=== PATIENT | female | born 2000 | race Caucasian/White ===

== ENCOUNTER 2024-08-08 12:57 | Observation (INO) | payer OTHER, SELFPAY ==
[2024-08-08] VITALS (30 sets, daily range): BP systolic 84–153; BP diastolic 50–88; PULSE 94–120; TEMP 36.6–37.2; O2SAT 95–100; BMI 54.1; BMI 58.5
--- NOTE | 2024-08-08 14:05 | ECG_ITS ---
[facility] Test Date: 2024-08-08 Pat Name: NICKI SHAIKH Department: Room: - Gender: Female Director Of Transportation: : 2000 Requested By: Order Number: [id number] Reading MD: EFRA KUHN Measurements Intervals [place] Rate: 112 P: 41 LA: 136 QRS: 60 QRSD: 88 T: 11 QT: 324 QTc: 391 Interpretive Statements 1120 Sinus tachycardia 4068 Nonspecific [place] abnormality 9140 abnormal rhythm ECG No previous ECG available for comparison Electronically Signed On 08-08-2024 21:47:46 EDT by EFRA KUHN
[2024-08-08 14:27] LABS: Basophils Absolute Auto 0.1 10^3/uL (0.0-0.1); Basophils Percent Auto 0.4 % (0.2-2.0); Eosinophils Absolute Auto 0.2 10^3/uL (0.0-0.7); Eosinophils Percent Auto 1.3 % (0.9-7.0); Immature Granulocytes Abs Auto 0.14 10^3/uL (0.00-0.03); Lymphocytes Absolute Auto 2.3 10^3/uL (1.2-3.8); Lymphocytes Percent Auto 16.4 % (20.5-60.0); Mean Corpuscular HGB Conc 29.8 g/dL (29.9-35.2); Mean Corpuscular Hemoglobin 24.6 pg (26.7-34.0); Mean Corpuscular Volume 82.5 fL (81.0-99.0); Mean Platelet Volume 8.9 fL (9.5-13.5); Monocytes Absolute Auto 0.8 10^3/uL (0.3-0.8); Monocytes Percent Auto 5.8 % (1.7-12.0); Neutrophils Absolute Auto 10.7 10^3/uL (1.4-6.5); Neutrophils Percent Auto 75.1 % (43.0-75.0); Platelet Count 310 10^3/uL (150-450); Red Cell Distribution Width 17.6 % (11.0-15.0); White Blood Count 14.3 10^3/uL (4.0-11.0)
[2024-08-08 14:30] LABS: Hematocrit 19.8 % (36.0-48.0); Hemoglobin 5.9 g/dL (12.0-16.0)
[2024-08-08 14:37] LABS: HCG Qualitative NEGATIVE (NEGATIVE); Internal Control Within Normal Limits
[2024-08-08 14:42] LABS: D Dimer 0.39 mg/L FEU (<=0.59)
[2024-08-08 14:48] LABS: Lactate/Lactic Acid 1.5 mmol/L (0.4-2.0)
--- NOTE | 2024-08-08 14:49 | ED.GENADUL1 ---
HPI HPI - General Adult General Chief complaint: Weakness Stated complaint: GENERAL WEAKNESS Time Seen by Provider: 08/08/24 14:29 Source: patient Mode of arrival: walk-in History of Present Illness HPI narrative: Patient is a 24-year-old female with a history of PCOS who presents to the emergency department for increasing exertional dyspnea, intermittent episodes of syncope and generalized weakness. She states she has had heavy vaginal bleeding for the last 5 months. 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 She has been on control for the last several months, drospirenone. She does report pelvic cramping that has been constant for several months, no urinary symptoms or flank pain. Related Data Allergies Allergy/AdvReac Type Severity Reaction Status Date / Time amoxicillin (From Augmentin) Allergy Severe Anaphylaxis Verified 08/08/24 13:16 clavulanic acid (From Allergy Severe Anaphylaxis Verified 08/08/24 13:16 Augmentin) Penicillins Allergy Severe Anaphylaxis Verified 08/08/24 13:16 Opioid HPI Opioid Management Most Recent Opioid Data: No Data to Display Review of Systems ROS Constitutional Denies: fever or chills Ears, nose, mouth, and throat Denies: throat pain or nasal congestion Cardiovascular Denies: chest pain Respiratory Reports: shortness of breath; Denies: cough Gastrointestinal Denies: nausea or vomiting Genitourinary Denies: painful urination Neurological Denies: numbness in extremities or weakness in extremities Hematologic/Lymphatic Denies: easy bruising or easy bleeding [facility] Medical History (Updated 08/08/24 @ 15:46 by PARMINDER Khan) Systemic mastocytosis ?D47.02 - Systemic mastocytosis (ICD-10) Exam Narrative Exam Narrative: Gen.: Awake, alert, in no distress Head: Normocephalic, atraumatic ENT: Moist mucous membranes Respiratory: No respiratory distress, lungs clear bilaterally Cardio: Regular rate and rhythm Gastrointestinal: Abdomen is soft, nondistended and nontender to palpation Extremities: Moves extremities equally Psych: Normal mood and affect Neuro: No focal neuro deficit Skin: Warm, dry, intact Constitutional Vital Signs, click to edit/add: Last Vital Signs Temp 98.7 F 08/08/24 13:07 Pulse 120 H 08/08/24 13:07 Resp 18 08/08/24 13:07 BP 120/70 08/08/24 13:07 Pulse Ox 98 08/08/24 13:07 O2 Del Method Room Air 08/08/24 13:07 Course Vital Signs Vital signs: Vital Signs Temperature 98.7 F 08/08/24 13:07 Pulse Rate 120 H 08/08/24 13:07 Respiratory Rate 18 08/08/24 13:07 Blood Pressure 120/70 08/08/24 13:07 Pulse Oximetry 98 08/08/24 13:07 Oxygen Delivery Method Room Air 08/08/24 13:07 Temperature 98.7 F 08/08/24 13:07 Pulse Rate 120 H 08/08/24 13:07 Respiratory Rate 18 08/08/24 13:07 Blood Pressure 120/70 08/08/24 13:07 Pulse Oximetry 98 08/08/24 13:07 Oxygen Delivery Method Room Air 08/08/24 13:07 Medical Decision Making MDM Narrative Medical decision making narrative: This patient had lab work obtained from the lobby while waiting for room assignment, she was noted to have a hemoglobin of 5.9 at time of getting a room assignment and she was made aware that she will need a blood transfusion and admission to the hospital. Her D-dimer is normal. X-ray is unremarkable, I spoke with Dr. Donato who recommends Megace 20 mg twice daily for 3 days and then 20 mg daily until she is seen in the office as an outpatient. First dose of Megace was given in the ER and he also requested an ultrasound of the pelvis. This was ordered for the patient and she is admitted for blood transfusion. Stable at time of admission. SUPERVISED APC VISIT, PHYSICIAN ATTESTATION: Based on the medical record the care appears appropriate. ? Medical Records Medical records reviewed: Yes I reviewed the patient's medical records Lab Data Lab results reviewed: Yes I reviewed the patient's lab results Labs: Lab Results 08/08/24 08/08/24 Range/Units 14:20 14:40 WBC 14.3 H (4.0-11.0) 10^3/uL RBC 2.40 L (4.20-5.40) 10^6/uL Hgb 5.9 L* (12.0-16.0) g/dL Hct 19.8 L* (36.0-48.0) % MCV 82.5 (81.0-99.0) fL MCH 24.6 L (26.7-34.0) pg MCHC 29.8 L (29.9-35.2) g/dL RDW 17.6 H (11.0-15.0) % Plt Count 310 (150-450) 10^3/uL MPV 8.9 L (9.5-13.5) fL Neut % (Auto) 75.1 H (43.0-75.0) % Lymph % (Auto) 16.4 L (20.5-60.0) % [place] % (Auto) 5.8 (1.7-12.0) % Eos % (Auto) 1.3 (0.9-7.0) % Baso % (Auto) 0.4 (0.2-2.0) % Neut # (Auto) 10.7 H (1.4-6.5) 10^3/uL Lymph # (Auto) 2.3 (1.2-3.8) 10^3/uL [place] # (Auto) 0.8 (0.3-0.8) 10^3/uL Eos # (Auto) 0.2 (0.0-0.7) 10^3/uL Baso # (Auto) 0.1 (0.0-0.1) 10^3/uL Abs Immat Gran (auto) 0.14 H (0.00-0.03) 10^3/uL Imm/Tot Granulo (auto) 1.0 H (0.0-0.5) % D-Dimer 0.39 (<=0.59) mg/L FEU Sodium 141 (136-145) mmol/L Potassium 4.0 (3.5-5.1) mmol/L Chloride 106 (98-107) mmol/L Carbon Dioxide 25.7 (21.0-32.0) mmol/L Anion Gap 13.3 BUN 8.0 (7.0-18.0) mg/dL Creatinine 0.96 (0.55-1.02) mg/dL Est GFR ( Amer) >60 (>=60 mL/min/1.73m^2) Est GFR (Non-Af Amer) >60 (>=60 mL/min/1.73m^2) BUN/Creatinine Ratio 8.3 Glucose 123 H (74-106) mg/dL Lactate 1.5 (0.4-2.0) mmol/L Calcium 9.0 (8.5-10.1) mg/dL Magnesium 2.1 (1.8-2.4) mg/dL Total Bilirubin 0.3 (0.2-1.0) mg/dL AST 28 (15-37) U/L ALT 51 (14-59) U/L Alkaline Phosphatase 89 (46-116) U/L Troponin I High Sens <4.0 L (4.0-51.3) pg/mL Total Protein 6.8 (6.4-8.2) g/dL Albumin 3.2 L (3.4-5.0) g/dL Globulin 3.6 g/dL Albumin/Globulin Ratio 0.9 TSH 6.138 H (0.358-3.740) uIU/mL Serum HCG, Qual Negative (NEGATIVE) Blood Type B Positive Antibody Screen Negative Crossmatch See Detail Imaging Data Chest x-ray: Attestation: I have reviewed the pertinent imaging results. ECG Data Attestation: I personally reviewed and interpreted this ECG as follows: (Sinus tachycardia at a rate of 112, no acute ST elevation or ectopy. EKG reviewed by attending physician) Discharge Plan Discharge Chief Complaint: Weakness Patient Disposition: Admitted as Observation Time of Disposition Decision: 15:45 Print Language: Macedonian Referrals: Physician,Non-Staff, [Physician] - 1 week
[2024-08-08 14:54] LABS: Alanine Aminotransferase 51 U/L (14-59); Albumin Globulin Ratio 0.9; Albumin Level 3.2 g/dL (3.4-5.0); Alkaline Phosphatase 89 U/L (46-116); Anion Gap 13.3; Aspartate Amino Transferase 28 U/L (15-37); BUN Creatinine Ratio 8.3; Bilirubin Total 0.3 mg/dL (0.2-1.0); Carbon Dioxide 25.7 mmol/L (21.0-32.0); Chloride 106 mmol/L (98-107); Estimated GFR (African America >60 (>=60 mL/min/1.73m^2); Estimated GFR (Non-African Ame >60 (>=60 mL/min/1.73m^2); Globulin 3.6 g/dL; Glucose 123 mg/dL (74-106); Magnesium 2.1 mg/dL (1.8-2.4); Sodium 141 mmol/L (136-145); Total Protein 6.8 g/dL (6.4-8.2); Troponin I High Sensitivity <4.0 pg/mL (4.0-51.3)
[2024-08-08 14:55] LABS: Thyroid Stimulating Hormone 6.138 uIU/mL (0.358-3.740)
[2024-08-08] MEDS: ONDANSETRON PF 4 MG/2 ML VIAL IV (14:55)
[2024-08-08] MEDS: 0.9 % SODIUM CHLORIDE 1,000 ML 999 ML IV (14:56)
[2024-08-08] MEDS: KETOROLAC TROMETHAMINE 30 MG/ML VIAL IVP (14:56)
--- NOTE | 2024-08-08 15:16 | XR_ITS ---
[address] [address] Patient Name: NICKI SHAIKH MRN: [id number] date: 2000 Sex: F Assigned Patient Location: ER Current Patient Location: ED.MAIN Accession/Order Number: [id number] Exam Date: 08/08/2024 15:20 Report Date: 08/08/2024 15:56 At the request of: NANDA CALI Procedure: XR chest 1V EXAM: CHEST 1 VIEW HISTORY: Shortness of breath TECHNIQUE: Chest, one view. COMPARISON: None. FINDINGS: Lungs are clear. No focal consolidation, pleural effusion, or pneumothorax. Pulmonary vasculature is within normal limits. Cardiomediastinal silhouette is normal. XR/XR chest 1V IMPRESSION: 1. No acute cardiopulmonary disease. Electronically authenticated by: SEAN RUBIN Date: 08/08/2024 15:56
--- NOTE | 2024-08-08 15:43 | US_ITS ---
The [address] [address] Patient Name: NICKI SHAIKH MRN: [id number] date: 2000 Sex: F Assigned Patient Location: MS Current Patient Location: MS Accession/Order Number: [id number] Exam Date: 08/08/2024 18:15 Report Date: 08/08/2024 20:08 At the request of: NANDA CALI Procedure: US pelvis transvaginal US pelvis transvaginal HISTORY: Vaginal bleeding COMPARISONS: 03/05/2016 TECHNIQUE: Transvaginal imaging of the pelvis was performed. FINDINGS: UTERUS: Normal in size and echogenicity. The uterus measures 8.8 x 4.4 x 5.5 cm. MYOMETRIUM:Unremarkable. ENDOMETRIUM: The endometrium is abnormally thickened and heterogeneous in echotexture. The endometrium measures1.9 cm. RIGHT OVARY: Multiple peripheral follicles are present in the right ovary. No suspicious ovarian masses are present. There is enlargement of the right ovary. The right ovary measures 4.2 x 2.8 x 2.9 cm with a volume of 17.7 cc. LEFT OVARY: Multiple peripheral follicles are present in the left ovary. No suspicious ovarian masses are present. There is enlargement of the left ovary. The left ovary measures 3.9 x 2.5 x 3.0 cm with a volume of 15.3 cc. OTHER:There is no significant free fluid in the pelvis. US/US pelvis transvaginal IMPRESSION: 1. Enlarged ovaries with multiple follicles typical of polycystic ovarian syndrome. 2. Abnormal thickening and heterogeneity of the endometrium measuring 1.9 cm. This could be followed up with repeat pelvic sonography in 6 weeks. Electronically authenticated by: ARCADIO HEREDIA Date: 08/08/2024 20:08
[2024-08-08] MEDS: MEGESTROL ACETATE 400 MG/10 ML ORAL.SUSP 20 MG PO (16:34)
[2024-08-08 18:23] LABS: INR 0.94; Partial Thromboplastin Time 21.7 sec (22.3-36.2)
[2024-08-08 19:18] LABS: Bilirubin Urine NEGATIVE (NEGATIVE); Blood Urine LARGE (NEGATIVE); Clarity Urine CLEAR (CLEAR); Color Urine YELLOW (YELLOW); Glucose Urine UA NEGATIVE (NEGATIVE); Ketones Urine NEGATIVE (NEGATIVE); Leukocyte Esterase Urine NEGATIVE (NEGATIVE); Nitrite Urine NEGATIVE (NEGATIVE); Protein Urine 100 mg/dL (NEG/TRACE); Urobilinogen Urine 0.2 EU/dL (0.2-1.0)
--- NOTE | 2024-08-08 19:30 | P.HP_ITS ---
HPI H&P: HPI History of Present Illness Chief complaint: GENERAL WEAKNESS ANEMIA VAginal Bleeding Blood Tra Narrative: Patient presented to the emergency room with mild dyspnea and near syncopal episode. In ER found to have a hemoglobin of less than 6. She has had bleeding for the last several months, heavy vaginal bleeding. She is currently on control pills. She does have a history of PCOS she also has a history of systemic mastocytosis. Insulin resistance. When I saw patient up in the medical surgical floor, she was resting comfortably in bed eating dinner. No complaints at the time. But she is not up and moving obviously either. Opioid HPI Opioid Management Most Recent Pain and Opioid Data: Last Pain Assessment 08/08/24 17:57 Last ORT Total Score 11 08/08/24 17:06 08/08/24 Last ORT Risk Category High Risk 08/08/24 17:06 08/08/24 PFSH PFSH Medical History (Updated 08/08/24 @ 17:47 by Joanne Pham) PTSD (post-traumatic stress disorder) ?F43.10 - Post-traumatic stress disorder, unspecified (ICD-10) Bipolar 1 disorder ?F31.9 - Bipolar disorder, unspecified (ICD-10) Anxiety ?F41.9 - Anxiety disorder, unspecified (ICD-10) Depression ?F32.A - Depression, unspecified (ICD-10) PCOS (polycystic ovarian syndrome) ?E28.2 - Polycystic ovarian syndrome (ICD-10) Insulin resistance ?E88.819 - Insulin resistance, unspecified (ICD-10) 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 (ICD-10) POTS (postural orthostatic tachycardia syndrome) ?G90.A - Postural orthostatic tachycardia syndrome [POTS] (ICD-10) Systemic mastocytosis ?D47.02 - Systemic mastocytosis (ICD-10) Surgical History (Updated 08/08/24 @ 17:47 by Joanne Pham) H/O esophagogastroduodenoscopy ?Z98.890 - Other specified postprocedural states (ICD-10) Hx of tonsillectomy ?Z90.89 - Acquired absence of other organs (ICD-10) Family History (Updated 08/08/24 @ 17:49 by Joanne Pham) Grandmother Family history of CHF (congestive heart failure) Family history of COPD (chronic obstructive pulmonary disease) Family history of hypertension Aunt Family history of cancer Family history of diabetes mellitus Grandfather Family history of cancer Family history of diabetes mellitus Family history of hypertension Uncle Family history of cancer Family history of diabetes mellitus Father Family history of hypertension Social History (Updated 08/08/24 @ 17:51 by Joanne Pham) Within the past year, how often did you have a drink containing alcohol: monthly or less Within the past year, how many standard drinks containing alcohol did you have on a typical day: 1 or 2 Within the past year, how often did you have six or more drinks on one occasion: never Total score: 0 Score interpretation: A score less than 3 is consistent with normal alcohol consumption. 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QHS 08/08/24 08/08/24 [facility]08/24 08/08/24 History Ultra Test strips) [facility] 08/08/24 08/08/24 History Ultra2 Meter) buspirone 10 mg tablet 10 mg PO BID 08/08/24 08/08/24 History docusate sodium 100 mg capsule 100 mg PO .QHS PRN constipation 08/08/24 08/08/24 History drospirenone (contraceptive) 4 mg 4 mg PO DAILY 08/08/24 08/08/24 History (28) tablet (Slynd) ferrous sulfate 325 mg (65 mg 325 mg PO DAILY 08/08/24 08/08/24 History iron) tablet (FeroSul) guanfacine 1 mg tablet,extended 1 mg PO .QHS 08/08/24 08/08/24 History release 24 hr lamotrigine 100 mg tablet 100 mg PO DAILY 08/08/24 08/08/24 History lisinopril 5 mg tablet 5 mg PO DAILY 08/08/24 08/08/24 History prazosin 1 mg capsule 1 mg PO BID 08/08/24 08/08/24 History prazosin 1 mg capsule 1 mg PO Q12H 08/08/24 08/08/24 History quetiapine 50 mg tablet 50 mg PO .QHS 08/08/24 08/08/24 History quetiapine 50 mg tablet 50 mg PO .QHS 08/08/24 08/08/24 History sertraline 50 mg tablet 50 mg PO DAILY 08/08/24 08/08/24 History sertraline 50 mg tablet 50 mg PO Q24H 08/08/24 08/08/24 History sitagliptin phosphate 50 mg tablet 50 mg PO DAILY 08/08/24 08/08/24 History (Octuvia) sitagliptin phosphate 50 mg tablet 50 mg PO DAILY 08/08/24 08/08/24 History (Octuvia) Allergies Allergy/AdvReac Type Severity Reaction Status Date / Time amoxicillin (From Augmentin) Allergy Severe Anaphylaxis Verified 08/08/24 13:16 clavulanic acid (From Allergy Severe Anaphylaxis Verified 08/08/24 13:16 Augmentin) Penicillins Allergy Severe Anaphylaxis Verified 08/08/24 13:16 Exam Constitutional Vital Signs, click to edit/add: Last Vital Signs Temp 98.3 F 08/08/24 18:25 Pulse 101 H 08/08/24 18:25 Resp 20 08/08/24 18:25 BP 100/65 08/08/24 18:25 Pulse Ox 98 08/08/24 18:25 O2 Del Method Room Air 08/08/24 18:25 Documenting provider has reviewed patient's vital signs: yes Common normals: no apparent distress Respiratory Common normals: normal respiratory effort and no retractions Cardio Common normals: regular rate and regular rhythm GI Common normals: Normal to inspection, nondistended, normoactive bowel sounds present (Morbid obesity), soft to palpation and non-tender Results Labs Labs: Short CBC 08/08/24 Range/Units 14:20 WBC 14.3 H (4.0-11.0) 10^3/uL Hgb 5.9 L* (12.0-16.0) g/dL Hct 19.8 L* (36.0-48.0) % Plt Count 310 (150-450) 10^3/uL BMP 08/08/24 14:20 Sodium 141 Potassium 4.0 Chloride 106 Carbon Dioxide 25.7 BUN 8.0 Creatinine 0.96 Glucose 123 H Calcium 9.0 Liver Function 08/08/24 Range/Units 14:20 Total Bilirubin 0.3 (0.2-1.0) mg/dL AST 28 (15-37) U/L ALT 51 (14-59) U/L Alkaline Phosphatase 89 (46-116) U/L Albumin 3.2 L (3.4-5.0) g/dL Urine 08/08/24 Range/Units 13:16 Urine Color Yellow (YELLOW) Urine Clarity Clear (CLEAR) Urine pH 7.0 (5.0-9.0) Ur Specific [place] 1.020 (1.005-1.025) Urine Protein 100 A (NEG/TRACE) mg/dL Urine Glucose (UA) Negative (NEGATIVE) mg/dL Assessment and Plan Assessment and Plan (1) Vaginal bleeding: (2) Anemia requiring transfusions: (3) Bipolar 1 disorder: (4) PCOS (polycystic ovarian syndrome): (5) Mastocytosis: (6) Insulin resistance: (7) POTS (postural orthostatic tachycardia syndrome): (8) Systemic mastocytosis: Plan Admission findings: Sinus tachycardia, respiratory distress, uncontrolled hypertension, leukocytosis, severe anemia with hemoglobin less than 6 due to dysfunctional uterine bleeding over the last several months. 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 Systemic mastocytosis-would recommend patient to receive 1 dose of Decadron and Benadryl due to the getting the transfusion. Hepatic steatosis as well as insulin resistance-will check insulin sliding scale, monitor labs. Leukocytosis-check urinalysis, leukocytosis may be on the basis of demargination from the acute and semiacute blood loss Elevated TSH-she can follow this as an outpatient. Bipolar disorder-maintain current medications Uncontrolled hypertension-maintain current medications, may be on the basis of her tachycardia and near syncope. Admission status: Patient with significant and symptomatic acute NSTEMI acute blood loss anemia-transfusion overnight, medically necessary treatment will likely span 1 midnight. Observational status. If further intervention possible surgical intervention are necessary patient will be changed to inpatient status
[2024-08-08 19:46] LABS: RBC Urine >100 #/HPF (0-2)
[2024-08-08 19:47] LABS: Bacteria Urine SMALL #/HPF (NONE SEEN); Mucus Urine NONE SEEN (NONE SEEN)
[2024-08-08] MEDS: DIPHENHYDRAMINE HCL 50 MG/ML VIAL 25 MG IV (19:47)
[2024-08-08 19:48] LABS: Squamous Epithelial Cell Urine RARE #/LPF (NONE/RARE)
[2024-08-08 19:49] LABS: Cast Seen? NONE SEEN #/LPF (NONE SEEN); Crystals Seen? None Seen #/HPF (None Seen)
[2024-08-08 19:50] LABS: Urine Culture Indicated YES; WBC Urine 0-2 #/HPF (NONE SEEN)
[2024-08-08] MEDS: BUSPIRONE HCL 10 MG TABLET PO (20:04)
[2024-08-08] MEDS: ACETAMINOPHEN 500 MG TABLET 1000 MG PO (20:04)
[2024-08-08] MEDS: DEXAMETHASONE SOD PHOS 10 MG/ML VIAL IV (20:19)
[2024-08-08] MEDS: QUETIAPINE FUMARATE 25 MG TABLET 50 MG PO (21:21)
[2024-08-08] MEDS: ATORVASTATIN CALCIUM 20 MG TABLET PO (21:21)
[2024-08-08 21:23] LABS: Glucometer 115 mg/dL (74-106)
[2024-08-09] VITALS (13 sets, daily range): BP systolic 105–115; BP diastolic 63–71; PULSE 84–102; TEMP 36.6–36.9; O2SAT 94–98
[2024-08-09 02:46] LABS: Basophils Percent Auto 0.2 % (0.2-2.0); Eosinophils Percent Auto 0.2 % (0.9-7.0); Hematocrit 25.5 % (36.0-48.0); Hemoglobin 7.9 g/dL (12.0-16.0); Immature Granulocytes Abs Auto 0.29 10^3/uL (0.00-0.03); Immature Granulocytes Pct Auto 1.7 % (0.0-0.5); Lymphocytes Absolute Auto 1.3 10^3/uL (1.2-3.8); Lymphocytes Percent Auto 7.8 % (20.5-60.0); Mean Corpuscular Hemoglobin 25.4 pg (26.7-34.0); Mean Platelet Volume 8.7 fL (9.5-13.5); Monocytes Absolute Auto 0.2 10^3/uL (0.3-0.8); Monocytes Percent Auto 0.9 % (1.7-12.0); Neutrophils Absolute Auto 15.3 10^3/uL (1.4-6.5); Neutrophils Percent Auto 89.2 % (43.0-75.0); Platelet Count 313 10^3/uL (150-450); Red Blood Count 3.11 10^6/uL (4.20-5.40); Red Cell Distribution Width 16.5 % (11.0-15.0); White Blood Count 17.2 10^3/uL (4.0-11.0)
[2024-08-09] MEDS: DIPHENHYDRAMINE HCL 50 MG/ML VIAL 25 MG IV (04:43)
--- NOTE | 2024-08-09 06:17 | P.DS_ITS ---
DS: Providers Provider Date of admission: 08/08/24 16:53 Primary care physician: Aleyda Garland NP Consults: 08/08/24 18:00 Consult to Pharmacy Routine Consulting Provider: Reason for consultation: Please [place] me when Med Rec is Updated Has provider been notified: No Occupational Therapy Eval and Treat Routine Reason for consultation: Only if needed for Rehab Has provider been notified: No Physical Therapy Eval and Treat Routine Reason for consultation: Eval and Treat Has provider been notified: No DS: Diagnosis Discharge Diagnosis (1) Vaginal bleeding: (2) Anemia requiring transfusions: (3) Bipolar 1 disorder: (4) PCOS (polycystic ovarian syndrome): (5) Mastocytosis: (6) Insulin resistance: (7) POTS (postural orthostatic tachycardia syndrome): (8) Systemic mastocytosis: Plan Admission findings: Sinus tachycardia, respiratory distress, uncontrolled hypertension, leukocytosis, severe anemia with hemoglobin less than 6 due to dysfunctional uterine bleeding over the last several months. Acute blood loss anemia secondary to acute heavy vaginal bleeding-checking on ultrasound, medications recommended by GRIEVANCE MANAGER, jose sandhu and transfuse 2 units, my suspicion is she will need 1 additional unit tomorrow morning we will see how the labs play out repeat CBC around midnight. Systemic mastocytosis-would recommend patient to receive 1 dose of Decadron and Benadryl due to the getting the transfusion. Hepatic steatosis as well as insulin resistance-will check insulin sliding scale, monitor labs. Leukocytosis-check urinalysis, leukocytosis may be on the basis of demargination from the acute and semiacute blood loss Elevated TSH-she can follow this as an outpatient. Bipolar disorder-maintain current medications Uncontrolled hypertension-maintain current medications, may be on the basis of her tachycardia and near syncope. L Admission status: Patient with significant and symptomatic acute NSTEMI acute blood loss anemia-transfusion overnight, medically necessary treatment will likely span 1 midnight. Observational status. If further intervention possible surgical intervention are necessary patient will be changed to inpatient status ? DS: Summary Hospital Course Hospital Course: Patient was admitted with increasing weakness and lightheadedness. Near syncope. In ER found to have significant anemia this is likely secondary to severe vaginal bleeding she has had over the last 3 months but more severe in the last couple of days. She was admitted overnight given 2 units of PRBCs. She was still symptomatic and hemoglobin was not above 8, so she was given an additional unit of blood. She feels much improved after the third unit of blood. Her vaginal bleeding. Case was discussed with gynecology, recommenda tion at this point is to discharge patient home with Megace 20 mg twice a day for 3 days and then 1020 mg a day for at least a month. Follow-up with GRIEVANCE MANAGER in the meantime. Patient agreeable with plan. Medications to this. Discharge to home today with follow-up with GRIEVANCE MANAGER within the next week or 2 and a PCP in the same timeframe Status at Discharge Overall status at discharge: patient is not back to baseline Time Spent with Patient Time attestation: Total time spent providing and/or coordinating discharge services: Time spent: greater than 30 minutes Exam Constitutional Vital Signs, click to edit/add: Last Vital Signs Temp 98.3 F 08/09/24 05:47 Pulse 102 H 08/09/24 05:57 Resp 16 08/09/24 05:47 BP 108/63 08/09/24 05:47 Pulse Ox 98 08/09/24 05:47 O2 Del Method Room Air 08/09/24 05:47 Documenting provider has reviewed patient's vital signs: yes Common normals: no apparent distress Respiratory Common normals: normal respiratory effort and no retractions Cardio Common normals: regular rate and regular rhythm GI Common normals: Normal to inspection, nondistended, normoactive bowel sounds p resent (Morbid obesity), soft to palpation and non-tender DS: Data Data Completed and Pending Labs on day of discharge: Labs from last 24 hours 08/09/24 08/08/24 08/08/24 02:30 21:21 14:40 WBC 17.2 H RBC 3.11 L Hgb 7.9 L Hct 25.5 L MCV 82.0 MCH 25.4 L MCHC 31.0 RDW 16.5 H Plt Count 313 MPV 8.7 L Neut % (Auto) 89.2 H Lymph % (Auto) 7.8 L [place] % (Auto) 0.9 L Eos % (Auto) 0.2 L Baso % (Auto) 0.2 Neut # (Auto) 15.3 H Lymph # (Auto) 1.3 [place] # (Auto) 0.2 L Eos # (Auto) 0.0 Baso # (Auto) 0.0 Abs Immat Gran (auto) 0.29 H Imm/Tot Granulo (auto) 1.7 H PT INR APTT D-Dimer Sodium Potassium Chloride Carbon Dioxide Anion Gap BUN Creatinine Est GFR ( Amer) Est GFR (Non-Af Amer) BUN/Creatinine Ratio Glucose Lactate Calcium Magnesium Total Bilirubin AST ALT Alkaline Phosphatase Troponin I High Sens Total Protein Albumin Globulin Albumin/Globulin Ratio TSH Serum HCG, Qual Urine Color Urine Clarity Urine pH Ur Specific [place] Urine Protein Urine Glucose (UA) Urine Ketones Urine Occult Blood Urine Nitrite Urine Bilirubin Urine Urobilinogen Ur Leukocyte Esterase Urine RBC Urine WBC Ur Squamous Epith Cells Urine Crystals Urine Bacteria Urine Casts Urine Mucus Ur Culture Indicated? POC Glucose 115 H Blood Type B Positive Antibody Screen Negative Crossmatch See Detail 08/08/24 08/08/24 14:20 13:16 WBC 14.3 H RBC 2.40 L Hgb 5.9 L* Hct 19.8 L* MCV 82.5 MCH 24.6 L MCHC 29.8 L RDW 17.6 H Plt Count 310 MPV 8.9 L Neut % (Auto) 75.1 H Lymph % (Auto) 16.4 L [place] % (Auto) 5.8 Eos % (Auto) 1.3 Baso % (Auto) 0.4 Neut # (Auto) 10.7 H Lymph # (Auto) 2.3 [place] # (Auto) 0.8 Eos # (Auto) 0.2 Baso # (Auto) 0.1 Abs Immat Gran (auto) 0.14 H Imm/Tot Granulo (auto) 1.0 H PT 10.0 INR 0.94 APTT 21.7 L D-Dimer 0.39 Sodium 141 Potassium 4.0 Chloride 106 Carbon Dioxide 25.7 Anion Gap 13.3 BUN 8.0 Creatinine 0.96 Est GFR ( Amer) >60 Est GFR (Non-Af Amer) >60 BUN/Creatinine Ratio 8.3 Glucose 123 H Lactate 1.5 Calcium 9.0 Magnesium 2.1 Total Bilirubin 0.3 AST 28 ALT 51 Alkaline Phosphatase 89 Troponin I High Sens <4.0 L Total Protein 6.8 Albumin 3.2 L Globulin 3.6 Albumin/Globulin Ratio 0.9 TSH 6.138 H Serum HCG, Qual Negative Urine Color Yellow Urine Clarity Clear Urine pH 7.0 Ur Specific [place] 1.020 Urine Protein 100 A Urine Glucose (UA) Negative Urine Ketones Negative Urine Occult Blood Large A Urine Nitrite Negative Urine Bilirubin Negative Urine Urobilinogen 0.2 Ur Leukocyte Esterase Negative Urine RBC >100 A Urine WBC 0-2 A Ur Squamous Epith Cells Rare Urine Crystals None seen Urine Bacteria Small A Urine Casts None seen Urine Mucus None seen Ur Culture Indicated? Yes POC Glucose Blood Type Antibody Screen Crossmatch Discharge Plan Discharge Disposition: Home, Self-Care Condition: Good Discharge Medications: New megestrol 20 mg tablet 20 mg PO BID MDD bid for 2 days, then daily Qty: 30 11RF Rx Instructions: bid for 2 days, then daily Continued atorvastatin 20 mg tablet 20 mg PO .QHS (DME) blood-glucose meter [OneTouch Ultra2 Meter] Misc MISCELLANEOUS (DME) OneTouch Ultra Test Strip MISCELLANEOUS buspirone 10 mg tablet 10 mg PO BID docusate sodium 100 mg capsule 100 mg PO .QHS PRN (Reason: constipation) Slynd 4 mg (28) tablet 4 mg PO DAILY ferrous sulfate [FeroSul] 325 mg (65 mg iron) tablet 325 mg PO DAILY guanfacine 1 mg tablet extended release 24 hr 1 mg PO .QHS lamotrigine 100 mg tablet 100 mg PO DAILY lisinopril 5 mg tablet 5 mg PO DAILY prazosin 1 mg capsule 1 mg PO BID quetiapine 50 mg tablet 50 mg PO .QHS sertraline 50 mg tablet 50 mg PO DAILY Januvia 50 mg tablet 50 mg PO DAILY aripiprazole 5 mg tablet 5 mg PO DAILY prazosin 1 mg capsule 1 mg PO Q12H quetiapine 50 mg tablet 50 mg PO .QHS sertraline 50 mg tablet 50 mg PO Q24H Januvia 50 mg tablet 50 mg PO DAILY Print Language: Kinyarwanda Patient Instructions: Megestrol (By mouth), Anemia (DC) Forms: Portal Instructions Follow Up Appointments: @ 4:15pm with Aleyda Ford NP [phone] Discharge Date/Time: 08/09/24 10:41
[2024-08-09 06:22] LABS: Basophils Percent Auto 0.2 % (0.2-2.0); Eosinophils Percent Auto 0.1 % (0.9-7.0); Hematocrit 25.2 % (36.0-48.0); Hemoglobin 7.8 g/dL (12.0-16.0); Immature Granulocytes Abs Auto 0.21 10^3/uL (0.00-0.03); Immature Granulocytes Pct Auto 1.2 % (0.0-0.5); Lymphocytes Absolute Auto 1.2 10^3/uL (1.2-3.8); Lymphocytes Percent Auto 7.1 % (20.5-60.0); Mean Corpuscular Hemoglobin 25.5 pg (26.7-34.0); Mean Corpuscular Volume 82.4 fL (81.0-99.0); Monocytes Absolute Auto 0.3 10^3/uL (0.3-0.8); Monocytes Percent Auto 1.7 % (1.7-12.0); Neutrophils Absolute Auto 15.3 10^3/uL (1.4-6.5); Neutrophils Percent Auto 89.7 % (43.0-75.0); Platelet Count 293 10^3/uL (150-450); Red Blood Count 3.06 10^6/uL (4.20-5.40); Red Cell Distribution Width 16.4 % (11.0-15.0)
[2024-08-09 06:38] LABS: Anion Gap 16.2; Calcium 8.6 mg/dL (8.5-10.1); Carbon Dioxide 20.2 mmol/L (21.0-32.0); Chloride 106 mmol/L (98-107); Estimated GFR (African America >60 (>=60 mL/min/1.73m^2); Estimated GFR (Non-African Ame 60 (>=60 mL/min/1.73m^2); Glucose 189 mg/dL (74-106); Potassium 4.4 mmol/L (3.5-5.1); Sodium 138 mmol/L (136-145)
[2024-08-09 07:53] LABS: Glucometer 168 mg/dL (74-106)
[2024-08-09 08:10] LABS: Hematocrit 26.4 % (36.0-48.0); Hemoglobin 8.4 g/dL (12.0-16.0); Mean Corpuscular HGB Conc 31.8 g/dL (29.9-35.2); Mean Corpuscular Hemoglobin 26.1 pg (26.7-34.0); Mean Platelet Volume 8.3 fL (9.5-13.5); Platelet Count 275 10^3/uL (150-450); Red Blood Count 3.22 10^6/uL (4.20-5.40); Red Cell Distribution Width 16.4 % (11.0-15.0); White Blood Count 18.1 10^3/uL (4.0-11.0)
[2024-08-09] MEDS: FERROUS SULFATE 325 MG TABLET PO (09:23)
[2024-08-09] MEDS: SERTRALINE HCL 50 MG TABLET PO (09:23)
[2024-08-09] MEDS: LAMOTRIGINE 100 MG TABLET PO (09:23)
[2024-08-09] MEDS: BUSPIRONE HCL 10 MG TABLET PO (09:23)
[2024-08-09] MEDS: LISINOPRIL 5 MG TABLET PO (09:23)
[2024-08-09] MEDS: ARIPIPRAZOLE 5 MG TABLET PO (09:23)
[2024-08-09] MEDS: SITAGLIPTIN PHOSPHATE 50 MG TABLET PO (09:23)
[2024-08-09] MEDS: DOCUSATE SODIUM 100 MG CAPSULE PO (09:27)
--- NOTE | 2024-08-09 09:49 | CM.NOTE ---
Rounds made with Dr. Sears, discussed with pt discharge to home today. Dr. Sears will reach out to Dr. Donato for further recommendations. Pt will f/u with Dr. Donato and PCP.
[2024-08-09] MEDS: MEGESTROL ACETATE 400 MG/10 ML ORAL.SUSP 20 MG PO (10:08)
--- NOTE | 2024-08-12 12:14 | CM.DCFOLLOWU ---
1st attempt 08/12/24, no answer
--- NOTE | 2024-08-13 13:04 | CM.DCFOLLOWU ---
2nd attempt 08/13/24, no answer
== END 2024-08-09 10:41 | disposition home or self-care (01) ==
LOC: ER 16:05 → MS 17:06
PROVIDERS: Physician Assistant; Admitting Provider Family Medicine; Emergency Provider Emergency Medicine; PCP Nurse Practitioner Family; Visit Provider Family Medicine
DX: D62 Acute posthemorrhagic anemia (principal); N93.8 Other specified abnormal uterine and vaginal bleeding; E28.2 Polycystic ovarian syndrome; E88.819 Insulin resistance, unspecified; D47.02 Systemic mastocytosis; Z79.3 Long term (current) use of hormonal contraceptives; F17.290 Nicotine dependence, other tobacco product, uncomplicated; G90.A Postural orthostatic tachycardia syndrome [POTS]; R00.0 Tachycardia, unspecified; R06.03 Acute respiratory distress; I10 Essential (primary) hypertension; D72.829 Elevated white blood cell count, unspecified; K76.0 Fatty (change of) liver, not elsewhere classified; R94.6 Abnormal results of thyroid function studies; R55 Syncope and collapse; F31.9 Bipolar disorder, unspecified
CPT/HCPCS: 36415; 36430; 71045; 76830; 80048; 80053; 81001; 82948; 83605; 83735; 84443; 84484; 84703; 85025; 85027; 85378; 85610; 85730; 86850; 86900; 86901; 86923; 87086; 93005; 94761; 96361; 96374; 96375; 96376; 97165; 99285; G0378; J1100; J1200; J1885; J2405; P9016

== ENCOUNTER 2024-08-10 16:47 | Emergency (ER) | payer OTHER, SELFPAY ==
[2024-08-10 17:03] VITALS: BP 174/86; PULSE 106; TEMP 37.1; O2SAT 99; BMI 54.9
[2024-08-10 17:17] LABS: Basophils Absolute Auto 0.1 10^3/uL (0.0-0.1); Basophils Percent Auto 0.3 % (0.2-2.0); Eosinophils Absolute Auto 0.1 10^3/uL (0.0-0.7); Eosinophils Percent Auto 0.6 % (0.9-7.0); Hematocrit 30.2 % (36.0-48.0); Hemoglobin 9.3 g/dL (12.0-16.0); Immature Granulocytes Abs Auto 0.19 10^3/uL (0.00-0.03); Lymphocytes Absolute Auto 3.4 10^3/uL (1.2-3.8); Lymphocytes Percent Auto 17.9 % (20.5-60.0); Mean Corpuscular HGB Conc 30.8 g/dL (29.9-35.2); Mean Corpuscular Hemoglobin 25.7 pg (26.7-34.0); Mean Corpuscular Volume 83.4 fL (81.0-99.0); Mean Platelet Volume 8.6 fL (9.5-13.5); Monocytes Absolute Auto 0.9 10^3/uL (0.3-0.8); Monocytes Percent Auto 4.8 % (1.7-12.0); Neutrophils Absolute Auto 14.3 10^3/uL (1.4-6.5); Neutrophils Percent Auto 75.4 % (43.0-75.0); Platelet Count 346 10^3/uL (150-450); Red Blood Count 3.62 10^6/uL (4.20-5.40); Red Cell Distribution Width 17.6 % (11.0-15.0); White Blood Count 18.9 10^3/uL (4.0-11.0)
--- NOTE | 2024-08-10 17:25 | ED_ITS ---
HPI - Female Genitourinary General Chief complaint: Vaginal Bleeding Stated complaint: BLEED POST TRANSFUSION Time Seen by Provider: 08/10/24 16:51 Source: patient Mode of arrival: Wheelchair Limitations: no limitations History of Present Illness HPI Narrative: Patient is a 24-year-old female with a history of PCOS who returns to the emergency department for reevaluation of vaginal bleeding. This patient was see n in the ER 2 days ago and was found to be anemic requiring a blood transfusion secondary to a 5-month history of dysfunctional uterine bleeding. She had an ultrasound showing a thickened endometrium, she was found to have a hemoglobin of 5.9 and was admitted receiving 3 units of blood. She states today she had a return of heavy vaginal bleeding and was concerned that she may be bleeding too much again. She states she feels mildly dizzy. She was started on megestrol twice daily while in the ER and discharged home with this medication. She has an appoint with DIRECTOR OF MARKETING AND PROMOTIONS in 2 days. Related Data Home Medications ?Medication ?Instructions ?Recorded ?Confirmed aripiprazole 5 mg tablet 5 mg PO DAILY 08/08/24 08/08/24 atorvastatin 20 mg tablet 20 mg PO .QHS 08/08/24 08/08/24 blood sugar diagnostic (OneTouch 08/08/24 08/08/24 Ultra Test strips) blood-glucose meter (OneTouch 08/08/24 08/08/24 Ultra2 Meter) buspirone 10 mg tablet 10 mg PO BID 08/08/24 08/08/24 docusate sodium 100 mg capsule 100 mg PO .QHS PRN constipation 08/08/24 08/08/24 drospirenone (contraceptive) 4 mg 4 mg PO DAILY 08/08/24 08/08/24 (28) tablet (Slynd) ferrous sulfate 325 mg (65 mg 325 mg PO DAILY 08/08/24 08/08/24 iron) tablet (FeroSul) guanfacine 1 mg tablet,extended 1 mg PO .QHS 08/08/24 08/08/24 release 24 hr lamotrigine 100 mg tablet 100 mg PO DAILY 08/08/24 08/08/24 lisinopril 5 mg tablet 5 mg PO DAILY 08/08/24 08/08/24 prazosin 1 mg capsule 1 mg PO BID 08/08/24 08/08/24 prazosin 1 mg capsule 1 mg PO Q12H 08/08/24 08/08/24 quetiapine 50 mg tablet 50 mg PO .QHS 08/08/24 08/08/24 quetiapine 50 mg tablet 50 mg PO .QHS 08/08/24 08/08/24 sertraline 50 mg tablet 50 mg PO DAILY 08/08/24 08/08/24 sertraline 50 mg tablet 50 mg PO Q24H 08/08/24 08/08/24 sitagliptin phosphate 50 mg tablet 50 mg PO DAILY 08/08/24 08/08/24 (Januvia) sitagliptin phosphate 50 mg tablet 50 mg PO DAILY 08/08/24 08/08/24 (Januvia) Previous Rx's ?Medication ?Instructions ?Recorded megestrol 20 mg tablet 20 mg PO BID bid for 2 days, then 08/09/24 daily #30 tabs ketorolac 10 mg tablet 10 mg PO TID PRN pain #10 tabs 08/10/24 promethazine 25 mg tablet 25 mg PO Q6H PRN nausea and 08/10/24 vomiting #12 tabs Allergies Allergy/AdvReac Type Severity Reaction Status Date / Time amoxicillin (From Augmentin) Allergy Severe Anaphylaxis Verified 08/10/24 17:03 clavulanic acid (From Allergy Severe Anaphylaxis Verified 08/10/24 17:03 Augmentin) Penicillins Allergy Severe Anaphylaxis Verified 08/10/24 17:03 Review of Systems ROS Constitutional Denies: fever or chills Cardiovascular Denies: chest pain Respiratory Denies: shortness of breath Gastrointestinal Reports: nausea; Denies: vomiting Genitourinary Reports: pelvic pain Neurological Denies: headache, numbness in extremities or weakness in extremities Hematologic/Lymphatic Denies: easy bruising or easy bleeding [facility] Medical History (Updated 08/10/24 @ 17:24 by PARMINDER Khan) PTSD (post-traumatic stress disorder) ?F43.10 - Post-traumatic stress disorder, unspecified (ICD-10) Bipolar 1 disorder ?F31.9 - Bipolar disorder, unspecified (ICD-10) Anxiety ?F41.9 - Anxiety disorder, unspecified (ICD-10) Depression ?F32.A - Depression, unspecified (ICD-10) PCOS (polycystic ovarian syndrome) ?E28.2 - Polycystic ovarian syndrome (ICD-10) Insulin resistance ?E88.819 - Insulin resistance, unspecified (ICD-10) 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 (ICD-10) POTS (postural orthostatic tachycardia syndrome) ?G90.A - Postural orthostatic tachycardia syndrome [POTS] (ICD-10) Systemic mastocytosis ?D47.02 - Systemic mastocytosis (ICD-10) Surgical History (Updated 08/08/24 @ 17:47 by Joanne Pham) H/O esophagogastroduodenoscopy ?Z98.890 - Other specified postprocedural states (ICD-10) Hx of tonsillectomy ?Z90.89 - Acquired absence of other organs (ICD-10) Family History (Updated 08/08/24 @ 17:49 by Joanne Pham) Grandmother Family history of CHF (congestive heart failure) Family history of COPD (chronic obstructive pulmonary disease) Family history of hypertension Aunt Family history of cancer Family history of diabetes mellitus Grandfather Family history of cancer Family history of diabetes mellitus Family history of hypertension Uncle Family history of cancer Family history of diabetes mellitus Father Family history of hypertension Social History Within the past year, how often did you have a drink containing alcohol: monthly or less Within the past year, how many standard drinks containing alcohol did you have on a typical day: 1 or 2 Within the past year, how often did you have six or more drinks on one occasion: never Total score: 0 Score interpretation: A score less than 3 is consistent with normal alcohol consumption. 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 Highest level of school completed/degree received: some college, no degree Are you now , , , , never or living with a partner: living with partner Little interest or pleasure in doing things: not at all Feeling down, depressed, or hopeless: not at all Feel stressed/tense/nervous/anxious/difficulty sleeping: only a little Gender Identity: female Exam Narrative Exam Narrative: Gen.: Awake, alert, in no distress Head: Normocephalic, atraumatic ENT: Moist mucous membranes Respiratory: No respiratory distress Gastrointestinal: Abdomen is soft, nondistended and nontender to palpation Extremities: Moves extremities equally Psych: Normal mood and affect Neuro: No focal neuro deficit Skin: Warm, dry, intact Constitutional Vital Signs, click to edit/add: Last Vital Signs Temp 98.7 F 08/10/24 17:03 Pulse 106 H 08/10/24 17:03 Resp 20 08/10/24 17:03 BP 174/86 H 08/10/24 17:03 Pulse Ox 99 08/10/24 17:03 O2 Del Method Room Air 08/10/24 17:03 Course Vital Signs Vital signs: Vital Signs Temperature 98.7 F 08/10/24 17:03 Pulse Rate 106 H 08/10/24 17:03 Respiratory Rate 20 08/10/24 17:03 Blood Pressure 174/86 H 08/10/24 17:03 Pulse Oximetry 99 08/10/24 17:03 Oxygen Delivery Method Room Air 08/10/24 17:03 Temperature 98.7 F 08/10/24 17:03 Pulse Rate 106 H 08/10/24 17:03 Respiratory Rate 20 08/10/24 17:03 Blood Pressure 174/86 H 08/10/24 17:03 Pulse Oximetry 99 08/10/24 17:03 Oxygen Delivery Method Room Air 08/10/24 17:03 MDM - Female Genitourinary MDM Narrative Medical decision making narrative: Repeat CBC shows hemoglobin 9.3 today. This is improved from even discharge after 3 units of blood. She was given education and reassurance. She is not hypotensive. She is not actively vomiting or febrile. She should keep her appointment with Dr. Donato on Monday as scheduled. She was given Toradol and Phenergan for symptoms of nausea and abdominal cramping. Family at bedside had additional questions about bleeding and clotting, these questions were answered and they were given reassurance that the patient is likely suffering from withdrawal bleeding from starting the Megace. Return to the ER if symptoms change or worsen SUPERVISED APC VISIT, PHYSICIAN ATTESTATION: Based on the medical record the care appears appropriate. ? Medical Records Attestation: I reviewed the patient's medical records. Lab Data Attestation: I reviewed the patient's lab results. Labs: Lab Results 08/10/24 Range/Units 17:04 WBC 18.9 H (4.0-11.0) 10^3/uL RBC 3.62 L (4.20-5.40) 10^6/uL Hgb 9.3 L (12.0-16.0) g/dL Hct 30.2 L (36.0-48.0) % MCV 83.4 (81.0-99.0) fL MCH 25.7 L (26.7-34.0) pg MCHC 30.8 (29.9-35.2) g/dL RDW 17.6 H (11.0-15.0) % Plt Count 346 (150-450) 10^3/uL MPV 8.6 L (9.5-13.5) fL Neut % (Auto) 75.4 H (43.0-75.0) % Lymph % (Auto) 17.9 L (20.5-60.0) % [place] % (Auto) 4.8 (1.7-12.0) % Eos % (Auto) 0.6 L (0.9-7.0) % Baso % (Auto) 0.3 (0.2-2.0) % Neut # (Auto) 14.3 H (1.4-6.5) 10^3/uL Lymph # (Auto) 3.4 (1.2-3.8) 10^3/uL [place] # (Auto) 0.9 H (0.3-0.8) 10^3/uL Eos # (Auto) 0.1 (0.0-0.7) 10^3/uL Baso # (Auto) 0.1 (0.0-0.1) 10^3/uL Abs Immat Gran (auto) 0.19 H (0.00-0.03) 10^3/uL Imm/Tot Granulo (auto) 1.0 H (0.0-0.5) % Discharge Plan Discharge Chief Complaint: Vaginal Bleeding Clinical Impression: Vaginal bleeding Patient Disposition: Home, Self-Care Time of Disposition Decision: 17:24 Condition: Good Prescriptions / Home Meds: New ketorolac 10 mg tablet 10 mg PO TID PRN (Reason: pain) Qty: 10 0RF promethazine 25 mg tablet 25 mg PO Q6H PRN (Reason: nausea and vomiting) Qty: 12 0RF No Action atorvastatin 20 mg tablet 20 mg PO .QHS (DME) blood-glucose meter [OneTouch Ultra2 Meter] Misc MISCELLANEOUS (DME) OneTouch Ultra Test Strip MISCELLANEOUS buspirone 10 mg tablet 10 mg PO BID docusate sodium 100 mg capsule 100 mg PO .QHS PRN (Reason: constipation) Slynd 4 mg (28) tablet 4 mg PO DAILY ferrous sulfate [FeroSul] 325 mg (65 mg iron) tablet 325 mg PO DAILY guanfacine 1 mg tablet extended release 24 hr 1 mg PO .QHS lamotrigine 100 mg tablet 100 mg PO DAILY lisinopril 5 mg tablet 5 mg PO DAILY prazosin 1 mg capsule 1 mg PO BID quetiapine 50 mg tablet 50 mg PO .QHS sertraline 50 mg tablet 50 mg PO DAILY Januvia 50 mg tablet 50 mg PO DAILY aripiprazole 5 mg tablet 5 mg PO DAILY prazosin 1 mg capsule 1 mg PO Q12H quetiapine 50 mg tablet 50 mg PO .QHS sertraline 50 mg tablet 50 mg PO Q24H Januvia 50 mg tablet 50 mg PO DAILY megestrol 20 mg tablet 20 mg PO BID MDD bid for 2 days, then daily Qty: 30 11RF Rx Instructions: bid for 2 days, then daily Print Language: Japanese Instructions: Abnormal (Dysfunctional) Uterine Bleeding (ED) Additional Instructions: Follow up with Dr. Donato on Monday as scheduled Referrals: Aleyda Garland NP [Primary Care Provider] - 1 week
[2024-08-10] MEDS: KETOROLAC TROMETHAMINE 60 MG/2 ML VIAL IM (17:44)
[2024-08-10] MEDS: PROMETHAZINE HCL 25 MG/ML VIAL IM (17:45)
--- OUTSIDE RECORDS SUMMARY | 2024-08-10 17:56 | XMS_ITS | CCD ---
Author Organization [facility] Care Team Providers Care Cherry Cutter Name Role Phone MARIBEL ASTORGA MD Unavailable Unavailab le MARIBEL ASTORGA MD Unavailable Unavailab le NONE Unavailable Unavailable ADDIS BARBER Attending Unavailable ADDIS BARBER Consulting Unavailable ADDIS BARBER Admitting Unavailable Denny Lomeli CNP Primary Care Provider Armani WORKDAY CONSULTANT - SCOTT Denny M Primary Care Provider LARRY ESPINOZA C Admitting Unavailable LARRY ESPINOZA C Attending Unavailable ROMEO CRUZ Referring Unavailable ARMANI, DENNY M Primary Care Unavailable BLANCO MONTALVO Attending Unavailable ARMANI, DENNY M Primary Care Unavailable ROMEO CRUZ Attending Unavailable ARMANI, DENNY M Primary Care Unavailable JM HUSSEIN Attending Unavailable ARMANI, DENNY M Primary Care Unavailable ARMANI, DENNY M Referring Unavailable ARMANI, DENNY M Primary Care Unavailable Armani WORKDAY CONSULTANT - SCOTT, Denny M Primary Care Provider ARMANI, DENNY M Referring Unavailable ARMANI, DENNY M Primary Care Unavailable Armani Denny CHAVEZ Primary Care Provider ARMANI, DENNY M Primary Care Unavailable MABLE RO Attending Unavailable MABLE RO Attending Unavailable SANDRA ROMAArmando Reed Referring Unavailable ARMANI, DENNY M Primary Care Unavailable Armani SCOTT Denny Unavailable Allergies Allergy Classification Reported Allergen(s) Allergy Type Date of Onset Reaction(s) Facility Amoxicillin / Clavulanate (6 sources) Amoxicillin / Clavulanate; Translations: [Augmentin 500-125 MG Oral Tablet] Drug Allergy [facility] ARIPiprazole (6 sources) ARIPiprazole; Translations: [Abilify] Drug Allergy 1 groggy Health Replaced by [facility] metFORMIN (6 sources) metFORMIN; Translations: [metformin] Drug Allergy 1 Nausea, Vomiting [facility] Serotonin Reuptake Inhibitors (SSRIs) (7 sources) Sertraline; Translations: [trazodone hydrochloride] Drug Allergy 1 Panic attack, slow/groggy [facility] Unclassified (6 sources) Amoxicillin-Pot Clavulanate; Translations: [AMOXICILLIN-PO T CLAVULANATE] Propensity to adverse reactions to drug 7 [facility] (1 source) Amoxicillin / Clavulanate Drug Allergy [address] [facility] Repository (20 sources) Amoxicillin / Clavulanate; Translations: [Augmentin 500-125 MG Oral Tablet] Drug Allergy 1 Shock [facility] (20 sources) ARIPiprazole; Translations: [Abilify] Drug Allergy 1 groggy [facility] (20 sources) metFORMIN; Translations: [METFORMIN] Drug Allergy 0 Nausea, Vomiting [facility] (15 sources) Sertraline Drug Allergy 1 slow/ groggy Health Replaced by [facility] (4 sources) traZODone Drug Allergy 2 Panic attack [facility] (1 source) nickel; Translations: [NICKEL] Drug Allergy 7 [facility] Repository (1 source) CARBONIC ANHYDRASE INHIBITORS; Translations: [CARBONIC ANHYDRASE INHIBITORS] Propensity to adverse reactions to drug (disorder) 7 [facility] Repository (8 sources) Sertraline Drug Allergy 4 slow/groggy [facility] (8 sources) traZODone Drug Allergy 4 Panic attack Health Replaced by [facility] Medications Current Medications Medication Drug Class(es) Dates Sig (Normalized) Sig (Original) Alcohol Pads 70% (7 sources) Start: 06-13-2024 Alcohol Pads 70% 06/13/2024 Provider: Denny Lomeli CNP ARIPiprazole 5 mg oral tablet (20 sources) Atypical Antipsychotic Start: 08-11-2023 End: 01-17-2024 ARIPiprazole 5 MG Oral Tablet 01/17/2024 Provider: Denny Lomeli CNP atorvastatin 20 mg oral tablet (7 sources) HMG-CoA Reductase Inhibitor Start: 06-13-2024 Atorvastatin Calcium 20 MG Oral Tablet 06/13/2024 Provider: Denny Lomeli CNP Blood Glucose System Ren Kit (7 sources) Start: 06-13-2024 Blood Glucose System Ren Kit 06/13/2024 Provider: Denny Lomeli CNP busPIRone hydrochloride 10 mg oral tablet (20 sources) Start: 06-13-2024 busPIRone HCl 10 MG Oral Tablet 06/13/2024 Provider: Denny Lomeli CNP Start: 09-11-2023 End: 06-13-2024 busPIRone HCl 5 MG Oral Tabl et 01/17/2024 - 06/13/2024 Provider: Denny Lomeli CNP docusate sodium 100 mg oral capsule (5 sources) Start: 07-01-2024 Colace 100 MG Oral Capsule 07/01/2024 Provider: Denny Lomeli CNP 24 hr guanFACINE 1 mg extended release oral tablet (17 sources) Central alpha-2 Adrenergic Agonist Start: 01-17-2024 End: 07-18-2024 Intuniv 1 MG Oral Tablet Extended Release 24 Hour 07/18/2024 Provider: Denny Lomeli CNP hydrOXYzine pamoate 50 mg oral capsule (2 sources) Antihistamine Start: 07-06-2021 hydrOXYzine (VISTARIL) capsule 50 mg take 1 tablet by mouth once deyanira y hydrOXYzine (ATARAX) 10 MG tablet Take 10 mg by mouth nightly 0 Active ibuprofen 400 mg oral tablet (2 sources) Nonsteroidal Anti-inflammatory Drug Start: 07-09-2021 take 1 tablet by mouth every six hours as needed for pain ibuprofen (ADVIL;MOTRIN) 400 MG tablet Take 1 tablet by mouth every 6 hours as needed for Pain 120 tablet 0 07/09/2021 Active Iron (5 sources) Start: 07-01-2024 [facility] Iron 325 (65 Fe) MG Oral Tablet 07/01/2024 Provider: Denny Lomeli CNP lisinopril 5 mg oral tablet (7 sources) Angiotensin Converting Enzyme Inhibitor Start: 06-13-2024 Lisinopril 5 MG Oral Tablet 06/13/2024 Provider: Denny Armani RACKING TECHNICIAN LORazepam 0.5 mg oral tablet (3 sources) Benzodiazepine take 0.5 mg by mouth once daily as needed LORazepam (ATIVAN PO) Take 0.5 mg by mouth daily as needed 0 Active meclizine hydrochloride 25 mg oral tablet (3 sources) Antiemetic Start: 08-31-2017 take 1 tablet by mouth three times daily as needed for dizziness meclizine (ANTIVERT) 25 MG tablet Take 1 tablet by mouth 3 times daily as needed for Dizziness 30 tablet 0 08/31/2017 Active naloxone hydrochloride 40 mg/ml nasal spray (20 sources) Opioid Antagonist Start: 03-17-2021 End: 03-17-2021 Narcan 4 MG/0.1ML Nasal Liquid 03/17/2021 Provider: Denny Lomeli CNP Naproxen (3 sources) Nonsteroidal Anti-inflammatory Drug Naproxen Sodium (ALEVE PO) Take 1 tablet by mouth as needed 0 Active polyethylene glycol 3350 68475 mg powder for oral solution (20 sources) Osmotic Laxative Start: 06-17-2021 MiraLax 17 GM/SCOOP Oral Powder 06/17/2021 Provider: Denny Lomeli CNP QUEtiapine 50 mg oral tablet (5 sources) Atypical Antipsychotic Start: 07-11-2024 SEROquel 50 MG Oral Tablet 07/11/2024 Provider: Denny Lomeli CNP SITagliptin 50 mg oral tablet (10 sources) Dipeptidyl Peptidase 4 Inhibitor Start: 06-13-2024 Januvia 50 MG Oral Tablet 06/13/2024 Provider: Denny Lomeli CNP take 500 mg by mouth once daily SITagliptin Phosphate (JANUVIA PO) Take 500 mg by mouth daily 0 Active topiramate 25 mg oral tablet (3 sources) take 25 mg by mouth twice daily Topiramate (TOPAMAX PO) Take 25 mg by mouth 2 times daily 0 Active {24 (drospirenone 4 MG Oral Tablet) / 4 (inert ingredients 1 MG Oral Tablet) } Pack [Slynd] (7 sources) Start: 06-13-2024 Slynd 4 MG Oral Tablet 06/13/2024 Provider: Denny Lomeli CNP Completed/Discontinued Medications Medication Drug Class(es) Dates Sig (Normalized) Sig (Original) ALPRAZolam 0.5 mg oral tablet (1 source) Benzodiazepine Start: 05-15-2021 End: 05-15-2021 ALPRAZolam (XANAX) tablet 0.5 mg azithromycin 250 mg oral tablet (20 sources) Macrolide Antimicrobial Start: 04-22-2021 End: 06-17-2021 Azithromycin 250 MG Oral Tablet 04/22/2021 - 06/17/2021 Provider: brompheniramine maleate 0.4 mg/ml / dextromethorphan hydrobromide 2 mg/ml / pseudoephedrine hydrochloride 6 mg/ml oral solution (20 sources) alpha-Adrenergic Agonist, Uncompetitive Y-aoiwqz-N-aspartat e Receptor Antagonist, Sigma-1 Agonist Start: 04-22-2021 End: 06-17-2021 Pseudoeph-Bromph en-DM 30-2-10 MG/5ML Oral Syrup 04/22/2021 - 06/17/2021 Provider: escitalopram 5 mg oral tablet (20 sources) Serotonin Reuptake Inhibitor Start: 07-10-2021 End: 08-12-2022 Lexapro 5 MG Oral Tablet 07/15/2021 - 07/15/2021 Provider: hydroCHLOROthiazide 25 mg / spironolactone 25 mg oral tablet (20 sources) Thiazide Diuretic, Aldosterone Antagonist Start: 05-11-2023 End: 05-24-2023 Spironolactone-H CTZ 25-25 MG Oral Tablet 05/11/2023 - 05/24/2023 Provider: Denny Lomeli CNP Start: 03-17-2021 End: 05-11-2023 Aldactazide 50-50 MG Oral Ta blet 04/01/2021 - 06/17/2021 Provider: Denny Lomeli CNP hydrocortisone 10 mg/ml / neomycin 3.5 mg/ml / polymyxin b [id number] unt/ml otic suspension (20 sources) Aminoglycoside Antibacterial, Polymyxin-class Antibacterial, Corticosteroid Start: 04-23-2021 End: 06-17-2021 Pbmwfkop-Rnlfnwcjg-AD 3.5-64666-4 Otic Suspension 04/23/2021 - 06/17/2021 Provider: Denny Lomeli CNP ketorolac tromethamine 10 mg oral tablet (20 sources) Nonsteroidal Anti-inflammatory Drug, Cyclooxygenase Inhibitor Start: 05-27-2022 End: 06-08-2022 Ketorolac Tromethamine 10 MG Oral Tablet 05/27/2022 - 06/08/2022 Provider: Leah Amaya CNP lamoTRIgine 100 mg oral tablet (20 sources) Mood Stabilizer, Anti-epileptic Agent Start: 11-11-2023 End: 07-18-2024 lamoTRIgine 100 MG Oral Tablet 01/17/2024 - 07/18/2024 Provider: Denny Lomeli CNP metFORMIN hydrochloride 500 mg oral tablet (20 sources) Biguanide Start: 05-06-2023 End: 04-10-2024 metFORMIN HCl 500 MG Oral Tablet 05/06/2023 - 04/10/2024 Provider: Start: 06-17-2021 End: 08-12-2022 take 1 tablet by mouth every twenty-four hours metFORMIN HCl ER 500 MG Oral Tablet Extended Release 24 Hour 06/17/2021 - 08/12/2022 Provider: Denny Lomeli CNP methylPREDNISolone 4 mg oral tablet (20 sources) Corticosteroid Start: 04-18-2021 End: 06-17-2021 methylPREDNISolone 4 MG Oral Tablet Therapy Pack 04/18/2021 - 06/17/2021 Provider: prazosin 1 mg oral capsule (20 sources) alpha-Adrenergic Joao Start: 09-11-2023 End: 07-18-2024 Prazosin HCl 1 MG Oral Capsule 01/17/2024 - 07/18/2024 Provider: Denny Lomeli CNP Start: 09-26-2022 End: 05-10-2023 Prazosin HCl 1 MG Oral Capsu le 09/26/2022 - 05/10/2023 Provider: Denny Lomeli CNP Start: 07-09-2021 take 3 capsules by m outh once daily prazosin (MINIPRESS) 1 MG capsule Take 3 capsules by mouth nightly 90 capsule 0 07/09/2021 Active Start: 03-17-2021 End: 08-12-2022 Prazosin HCl 1 MG Oral Capsu le 04/01/2021 - 04/23/2021 Provider: Denny Lomeli CNP promethazine hydrochloride 12.5 mg oral tablet (20 sources) Phenothiazine Start: 05-27-2022 End: 05-10-2023 Promethazine HCl 12.5 MG Oral Tablet 05/27/2022 - 05/10/2023 Provider: Leah Amaya CNP sertraline 50 mg oral tablet (20 sources) Serotonin Reuptake Inhibitor Start: 11-11-2023 End: 07-18-2024 Sertraline HCl 50 MG Oral Tablet 01/17/2024 - 07/18/2024 Provider: Denny Lomeli CNP Start: 04-08-2021 End: 07-15-2021 Zoloft 50 MG Oral Tablet 11/2020 - 06/17/2021 Provider: traZODone hydrochloride 100 mg oral tablet (20 sources) Serotonin Reuptake Inhibitor Start: 09-15-2023 End: 07-11-2024 traZODone HCl 100 MG Oral Tablet 01/17/2024 - 07/11/2024 Provider: Denny Lomeli RACKING TECHNICIAN Start: 06-08-2021 End: 08-12-2022 traZODone HCl 50 MG Oral Tab let 06/17/2021 - 06/17/2021 Provider: ziprasidone 80 mg oral capsule (20 sources) Atypical Antipsychotic Start: 06-11-2021 End: 08-12-2022 Geodon 80 MG Oral Capsule 06/17/2021 - 07/15/2021 Provider: Start: 04-08-2021 End: 06-14-2021 Geodon 20 MG Oral Capsule 04/08/2021 - 06/14/2021 Provider: take 4 capsules by m outh once daily ziprasidone (GEODON) 20 MG capsule Take 80 mg by mouth nightly 0 Active Problems Active Problems Problem Classification Problem Date Documented Date Episodic/Chronic Anxiety disorders (20 sources) Posttraumatic stress disorder; Translations: [Post-traumatic stress disorder, unspecified] Onset: 03-17-2021 Chronic Attention-deficit, conduct, and disruptive behavior disorders (20 sources) Attention deficit hyperactivity disorder; Translations: [Attention-deficit hyperactivity disorder, unspecified type] Onset: 01-17-2024 01-17-2024 Chronic Attention-deficit, conduct, and disruptive behavior disorders (12 sources) Undifferentiated attention deficit disorder; 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] Onset: 01-17-2024 Chronic Deficiency and other anemia (3 sources) Iron deficiency anemia; Translations: [Iron deficiency anemia, unspecified] Onset: 07-29-2024 Episodic Diabetes mellitus without complication (19 sources) Type 2 diabetes mellitus without complication; Translations: [Type 2 diabetes mellitus without complications] Onset: 06-13-2024 06-13-2024 Chronic Disorders of teeth and jaw (5 sources) Dental caries; Translations: [Dental caries, unspecified] Onset: 07-18-2024 Episodic Essential hypertension (16 sources) Hypertensive disorder; Translations: [Unspecified essential hypertension] Onset: 03-17-2021 Chronic Immunizations and screening for infectious disease (20 sources) Contact with and (suspected) exposure to other viral communicable diseases; Translations: [HIV screening] Onset: 06-06-2020 Episodic Impulse control disorders, NEC (1 source) Homicidal thoughts; Translations: [Homicidal ideations] Episodic Menstrual disorders (14 sources) Dysmenorrhea; Translations: [Dysmenorrhea, unspecified] Onset: 06-13-2024 06-13-2024 Chronic Mood disorders (20 sources) Depressive disorder; Translations: [Major depressive disorder, single episode, unspecified] Onset: 04-23-2021 Chronic Nonspecific chest pain (3 sources) Other chest pain; Translations: [Chest pain] Onset: 02-28-2024 Episodic Other ear and sense organ disorders (7 sources) Otitis externa; Translations: [Infective otitis externa, unspecified] Onset: 04-23-2021 Chronic Other lower respiratory disease (6 sources) Cough; Translations: [Cough] Onset: 06-08-2022 Episodic Other nutritional; endocrine; and metabolic disorders (20 sources) Finding of body mass index; Translations: [Body mass index (observable entity)] Onset: 03-17-2021 Chronic Other nutritional; endocrine; and metabolic disorders (20 sources) Morbid obesity; Translations: [Morbid obesity] Onset: 03-17-2021 Chronic Personality disorders (20 sources) Borderline personality disorder; Translations: [Borderline personality disorder] Onset: 05-17-2021 Resolved: 01-17-2024 Chronic Substance-related disorders (20 sources) Tobacco dependence syndrome; Translations: [Nicotine dependence, unspecified, uncomplicated] Onset: 06-17-2021 Resolved: 05-10-2023 Chronic Past or Other Problems Problem Classification Problem Date Documented Da te Episodic/Chronic Cardiac dysrhythmias (10 sources) Tachycardia; Translations: [Tachycardia, unspecified] Onset: 07-15-2021 Episodic Conditions associated with dizziness or vertigo (5 sources) Dizziness; Translations: [Dizziness and giddiness] Onset: 08-31-2017 08-31-2017 Episodic Deficiency and other anemia (9 sources) Anemia; Translations: [Anemia, unspecified] Onset: 04-10-2024 Episodic Other screening for suspected conditions (not mental disorders or infectious disease) (20 sources) Encounter for screening for diabetes mellitus; Translations: [Diabetes Risk Test Score] Onset: 03-17-2021 Episodic Otitis media and related conditions (5 sources) Acute suppurative otitis media without spontaneous rupture of ear drum; Translations: [Acute suppurative otitis media without spontaneous rupture of ear drum, right ear] Onset: 08-31-2017 08-31-2017 Episodic Results Test Name Value Interpretation Reference Range Facility Laboratory - Chemistry and C hemistry - challengeon 06-13-2024 Ferritin [Mass/Vol] 118 ng/mL (15-150 ) Healt h Replaced by [facility] Free T3 [Mass/Vol] 3.2 pg/mL (2.0-4.4 ) [facility] Free T4 [Mass/Vol] 1.13 ng/dL (0.82-1.7 7 ) [facility] Iron [Mass/Vol] 52 ug/dL (27-159 ) [facility] Iron binding capacity [Mass/Vol] 396 ug/dL (250-450 ) [facility] Iron binding capacity.unsaturated [Mass/Vol] 344 ug/dL (131-425 ) [facility] Iron saturation [Mass fraction] 13 % Low (15-55 ) [facility] TSH Qn 2.930 uIU/mL (0.450-4.50 0 ) [facility] Laboratory - Hematology and Cell countson 06-13-2024 Basophils (Bld) [#/Vol] 0.1 10*3/uL (0.0-0.2 ) [facility] Basophils/100 WBC (Bld) 0 % (Not Estab. ) [facility] Eosinophils (Bld) [#/Vol] 0.2 10*3/uL (0.0-0.4 ) [facility] Eosinophils/100 WBC (Bld) 1 % (Not Estab. ) [facility] Erythrocyte distribution width (RBC) [Ratio] 15.7 % High (11.7-15.4 ) [facility] Hematocrit (Bld) [Volume fraction] 41.3 % (34.0-46.6 ) [facility] Hemoglobin (Bld) [Mass/Vol] 12.9 g/dL (11.1-15.9 ) [facility] Immature granulocytes (Bld) [#/Vol] 0.1 10*3/uL (0.0-0.1 ) [facility] Immature granulocytes/100 WBC (Bld) 1 % (Not Estab. ) [facility] Lymphocytes (Bld) [#/Vol] 2.4 10*3/uL (0.7-3.1 ) [facility] Lymphocytes/100 WBC (Bld) 18 % (Not Estab. ) [facility] MCH (RBC) [Entitic mass] 24.3 pg Low (26.6-33.0 ) [facility] MCHC (RBC) [Mass/Vol] 31.2 g/dL Low (31.5- 35.7 ) [facility] MCV (RBC) [Entitic vol] 78 fL Low (79-97 ) H [facility] Monocytes (Bld) [#/Vol] 0.6 10*3/uL (0.1-0.9 ) [facility] Monocytes/100 WBC (Bld) 5 % (Not Estab. ) [facility] Morphology Ramesh (Bld) [Interp] COMPRESSION MOLDING MACHINE TENDER [facility] Neutrophils (Bld) [#/Vol] 9.7 10*3/uL High (1.4-7.0 ) [facility] Neutrophils/100 WBC (Bld) 75 % (Not Estab. ) [facility] Nucleated RBC/100 WBC (Bld) [Ratio] COMPRESSION MOLDING MACHINE TENDER [facility] Platelets (Bld) [#/Vol] 308 10*3/uL (150-450 ) [facility] RBC (Bld) [#/Vol] 5.31 10*6/uL High (3.77-5.28 ) [facility] WBC (Bld) [#/Vol] 13.1 10*3/uL High (3.4-10.8 ) [facility] Laboratory - Serology - non- microon 06-13-2024 Thyroglobulin Ab Qn [IU]/mL (0.0-0.9 ) Healt [facility] [place] Comment on above: Note: Thyroglobulin Antibody measured by Frankie CoulterMethodology .It should be noted that the presence of thyroglobulinantibodies may not be pathogenic nor diagnostic, especiallyat very low levels. The assay trainmaster has found thatfour percent of individuals without evidence of thyroiddisease or autoimmunity will have positive TgAb levels upto 4 IU/mL. TPO Ab Qn 14 [IU]/mL (0-34 ) [facility] No Panel Informationon 06-13 Immature Cells COMPRESSION MOLDING MACHINE TENDER [facility] Reported Physicians See Note [facility] Comment on above: Note: Reported Physi cians:Ordering: Denny Lomeli Troponin I.cardiac High sens itivity method [Mass/Vol]on 02-29-2024 1 HOUR TROP I, HIGH SENSITIVITY <2 Normal <16 [facility] Comment on above: Performed By: #### 8 9579-7 #### [facility] ([id number]) [address] [place] [address] 69986 BASIC METABOLIC PANLon 02-27 Anion gap [Moles/Vol] 7 mmol/L Normal 5-15 [facility] Comment on above: Performed By: #### C BCA, BMP, 87361-6, 40987-5, 87072-8 #### [facility] ([id number]) [address] [place] [address] 23494 Calcium [Mass/Vol] 8.9 mg/dL Normal 8.5-10.5 [facility] Comment on above: Performed By: #### C BCA, BMP, 63359-3, 60553-8, 38294-2 #### [facility] ([id number]) [address] [place] [address] 87704 Chloride [Moles/Vol] 101 mmol/L Normal 98-109 [facility] Comment on above: Performed By: #### C BCA, BMP, 24636-7, 50772-5, 37170-7 #### [facility] ([id number]) [address] [place] [address] 84353 CO2 [Moles/Vol] 28 mmol/L Normal 22-32 [facility] Comment on above: Performed By: #### C MARIETTA, BMP, 74476-0, 15859-5, 15618-1 #### [facility] ([id number]) [address] [place] [address] 12537 Creatinine [Mass/Vol] 0.91 mg/dL Normal 0.40-1.00 [facility] Comment on above: Result Comment: METH OD TRACEABLE TO IDMS STANDARD Performed By: #### C MARIETTA, VERONIQUE, , 54483-2, 60591-0 #### [facility] ([id number]) [address] [place] [address] 46413 eGFR (CKD-EPI) NON-RACE DEPENDENT >90 Normal >59 [facility] Comment on above: Result Comment: Reported eGFR is based on the CKD-EPI 2020 equation that does not use a race coefficient. Performed By: #### C MARIETTA, VERONIQUE, , 97989-4, 52819-1 #### [facility] ([id number]) [address] [place] [address] 71315 Glucose [Mass/Vol] 107 mg/dL High 65-99 [facility] Comment on above: Performed By: #### C MARIETTA, BMP, , 73118-5, 50349-4 #### [facility] ([id number]) [address] [place] [address] 31586 Potassium [Moles/Vol] 3.5 mmol/L Normal 3.5-5.0 [facility] Comment on above: Performed By: #### C MARIETTA, BMP, 86112-0, 78067-0, 83819-4 #### [facility] ([id number]) [address] [place] [address] 55526 Sodium [Moles/Vol] 136 mmol/L Normal 134-146 [facility] Comment on above: Performed By: #### C BCA, BMP, 31716-5, 29824-7, 68482-8 #### [facility] ([id number]) [address] [place] [address] 81407 Urea nitrogen [Mass/Vol] 10 mg/dL Normal 5-23 [facility] Comment on above: Performed By: #### C BCA, BMP, , 91407-8, 62965-3 #### [facility] ([id number]) [address] [place] [address] 97228 CBC AND AUTO DIFFon 02-28-20 24 ABSOLUTE BASOPHIL 0.2 X10E9/L Normal 0.0-0.2 [facility] Comment on above: Performed By: #### C BCA, BMP, , 05198-3, 17555-2 #### [facility] ([id number]) [address] [place] [address] 40302 ABSOLUTE NEUTROPHIL 10.7 X10E9/L High 1.5-6.6 [facility] Comment on above: Performed By: #### C BCA, BMP, , 31407-2, 39160-7 #### [facility] ([id number]) [address] [place] [address] 30349 Basophils/100 WBC (Bld) 1.1 % Normal [facility] Comment on above: Performed By: #### C BCA, BMP, , 13354-0, 98754-6 #### [facility] ([id number]) [address] [place] [address] 12764 Eosinophils (Bld) [#/Vol] 0.2 10*3/uL Normal 0.0-0.4 [facility] Comment on above: Performed By: #### C BCA, BMP, , 91249-3, 07056-4 #### [facility] ([id number]) [address] [place] [address] 33418 Eosinophils/100 WBC (Bld) 1.3 % Normal [facility] Comment on above: Performed By: #### C BCA, BMP, 16026-2, 40304-7, 19764-0 #### [facility] ([id number]) [address] [place] [address] 24404 Erythrocyte distribution width (RBC) [Ratio] 19.4 % High 11.5-15.0 [facility] Comment on above: Performed By: #### C BCA, BMP, 75937-9, 62034-1, 90436-4 #### [facility] ([id number]) [address] [place] [address] 16271 Hematocrit (Bld) [Volume fraction] 33.5 % Low 35-47 [facility] Comment on above: Performed By: #### C BCA, BMP, , 57130-8, 85084-8 #### [facility] ([id number]) [address] [place] [address] 18689 Hemoglobin (Bld) [Mass/Vol] 10.6 g/dL Low 11.7-15.5 [facility] Comment on above: Performed By: #### C BCA, BMP, , 51524-1, 73755-7 #### [facility] ([id number]) [address] [place] [address] 39118 Lymphocytes (Bld) [#/Vol] 2.4 10*3/uL Normal 1.0-3.5 [facility] Comment on above: Performed By: #### C BCA, BMP, 30569-9, 36238-3, 28243-3 #### [facility] ([id number]) [address] [place] [address] 34317 Lymphocytes/100 WBC (Bld) 17.2 % Normal [facility] Comment on above: Performed By: #### C BCA, BMP, 11520-4, 24940-0, 39627-4 #### [facility] ([id number]) [address] [place] [address] 34945 MCH (RBC) [Entitic mass] 21.7 pg Low 27-34 [facility] Comment on above: Performed By: #### C BCA, BMP, 63688-1, 38981-3, 14943-3 #### [facility] ([id number]) [address] [place] [address] 52508 MCHC (RBC) [Mass/Vol] 31.6 g/dL Low 32-36 [facility] Comment on above: Performed By: #### Maryjo BCA, BMP, 78988-2, 31700-8, 74562-4 #### [facility] ([id number]) [address] [place] [address] 62241 MCV (RBC) [Entitic vol] 69 fL Low 80-100 [facility] Comment on above: Performed By: #### C BCA, BMP, , 72170-9, 17140-9 #### [facility] ([id number]) [address] [place] [address] 13241 Monocytes (Bld) [#/Vol] 0.7 10*3/uL Normal 0-0.9 [facility] Comment on above: Performed By: #### C BCA, BMP, 35236-8, 62609-8, 03206-5 #### [facility] ([id number]) [address] [place] [address] 90782 Monocytes/100 WBC (Bld) 4.8 % Normal [facility] Comment on above: Performed By: #### Maryjo BCA, BMP, 11832-6, 52697-0, 33400-7 #### [facility] ([id number]) [address] [place] [address] 61574 Neutrophils/100 WBC (Bld) 75.6 % Normal [facility] Comment on above: Performed By: #### C MARIETTA, BMP, 53780-1, 64892-4, 36753-2 #### [facility] ([id number]) [address] [place] [address] 27622 Platelet mean volume (Bld) [Entitic vol] 6.6 fL Low 7-12 [facility] Comment on above: Performed By: #### Maryjo MCMANUS, BMP, 44928-5, 27218-7, 99326-8 #### [facility] ([id number]) [address] [place] [address] 87129 Platelets (Bld) [#/Vol] 333 10*3/uL Normal 150-450 [facility] Comment on above: Performed By: #### Maryjo MCMANUS, BMP, 59157-5, 93515-0, 82081-4 #### [facility] ([id number]) [address] [place] [address] 32287 RBC COUNT 4.88 X10E12/L Normal 3.80-5.20 [facility] Comment on above: Performed By: #### Maryjo MCMANUS, BMP, 04245-7, 14193-6, 75651-2 #### [facility] ([id number]) [address] [place] [address] 41516 RBC morphology finding Nom (Bld) REVIEWED Normal [facility] Comment on above: Performed By: #### Maryjo BCA, BMP, 77638-2, 36112-1, 36803-5 #### [facility] ([id number]) [address] [place] [address] 99110 WBC (Bld) [#/Vol] 14.1 10*3/uL High 4.0-11.0 [facility] Comment on above: Performed By: #### Maryjo MCMANUS, BMP, 81266-1, 40496-5, 15111-8 #### [facility] ([id number]) [address] [place] [address] 25779 Fibrin D-dimer DDU (PPP) [Ma ss/Vol]on 02-28-2024 D DIMER <150 Normal <255 [facility] Comment on above: Result Comment: Results <255 ng/mL DDU: The presence of a VTE can safely be excluded with a negative D-Dimer result and Wells score. A negative result doesn't exclude the possibility of DIC. The test be repeated along with other diagnostic tests if the patient's symptoms persist or worsen. [email or web address] Performed By: #### C MARIETTA BMP, , 06726-5, 67296-5 #### [facility] ([id number]) [address] [place] [address] 84912 MAGNESIUMon 02-28-2024 Magnesium [Mass/Vol] 1.8 mg/dL Normal 1.8-2.6 [facility] Comment on above: Performed By: #### C MARIETTA BMP, , 02653-9, 28932-7 #### [facility] ([id number]) [address] [place] [address] 67186 Troponin I.cardiac High sens itivity method [Mass/Vol]on 02-28-2024 TROPONIN I, HIGH SENSITIVITY <2 Normal <16 [facility] Comment on above: Performed By: #### C MARIETTA, BMP, , 93366-2, 53650-0 #### [facility] ([id number]) [address] [place] [address] 85317 XR CHEST 2 VWSon 02-28-2024 XR CHEST 2 VWS XR CHEST 2 VWS XR CHEST 2 VWS History: . chest discomfort. Comparison: 03/30/2020 Impression: No acute pulmonary process. No pneumothorax or pleural effusion. Nonenlarged heart. Finalized by Ilir Amaya MD on 02/28/2024 9:49 PM Normal [facility] Chlamydia/GC DNA, Uron 08-15 Chlamydia Probe, Ur Negative Normal NEG [facility] Comment on above: Result Comment: CHLA MYDIA TRACHOMATIS DNA not detected by nucleic acid amplification. This test is intended for medical purposes only and is not valid for the evaluation of suspected sexual abuse or for other forensic purposes. In certain contexts, culture may be required to meet applicable laws and regulations for diagnosis of C. trachomatis and N. gonorrhoeae infections. Per 2014 CDC recommendations, this test does not include confirmation of positive results by an alternative nucleic acid target. Performed By: #### T RCMOL, UC #### [employer] [address] [place], [place] [address]508 Dispatcher Motor Vehicle: Soren Gracia MD Gonorrhea Probe, Ur Negative Normal NEG [facility] Comment on above: Result Comment: NEIS SERIA GONORRHOEAE DNA not detected by nucleic acid amplification. This test is intended for medical purposes only and is not valid for the evaluation of suspected sexual abuse or for other forensic purposes. In certain contexts, culture may be required to meet applicable laws and regulations for diagnosis of C. trachomatis and N. gonorrhoeae infections. Per 2014 CDC recommendations, this test does not include confirmation of positive results by an alternative nucleic acid target. Performed By: #### T RCMOL, UC #### [employer] [address] [place], [place] [address] Dispatcher Motor Vehicle: Soren Gracia MD Trich Vag, Molecularon 08-13 Trich Vag, Molecular Negative Normal NEG [facility] Comment on above: Result Comment: T. v aginalis DNA not detected Results should be interpreted in conjunction with other clinical data. This test is intended for medical purposes only and is not valid for the evaluation of suspected sexual abuse or for other forensic purposes. This test has not been evaluated in women or in patients less than 16 years of age. Performed By: #### T RCMOL, UCGP #### [employer] [address] [place] [address] Dispatcher Motor Vehicle: Soren Gracia MD Source: .URINE Normal [facility] Comment on above: Performed By: #### T RCMOL, UCGP #### [facility] [address] [place] [address] Dispatcher Motor Vehicle: Soren Gracia MD Acetaminophenon 07-06-2021 Acetaminophen [Mass/Vol] ug/mL Low 10-30 [facility] Comment on above: Performed By: #### C OVRB #### [facility] [address] [place] [address] Dispatcher Motor Vehicle: Garrett Perez MD Acetaminophen LevelOrdered B y: Kalyan Dasiaelsi on 07-06-2021 Acetaminophen Level <5 Low 10 - 30 ug/mL [employer] [facility] Phone: Interpretation and review of laboratory results Abnormal [facility] Phone: [facility] Phone: CBC Auto DifferentialOrdered By: Kalyan Irizarry on 07-06-2021 Absolute Eos # 0.62 High [facility] Phone: Absolute Immature Granulocyte 0.07 [facility] Phone: Absolute Lymph # 3.20 [employer] Phone: Absolute [place] # 0.89 [facility] Phone: Basophils (Bld) [#/Vol] 0.10 10*3/uL [employer] Phone: Basophils/100 WBC (Bld) 1 % 0 - 2 % M [facility] Phone: Differential Type NOT REPORTED [facility] Phone: Eosinophils/100 WBC (Bld) 5 % High 1 - 4 % [facility] Phone: Hematocrit (Bld) [Volume fraction] 43.4 % 36.3 - 47.1 % [facility] Phone: Hemoglobin.gastrointest inal spec 1 Ql (Stl) 14.6 g/dL 11.9 - 15.1 g/dL [facility] Phone: Immature granulocytes/100 WBC (Bld) 1 % High 0 [facility] Phone: Interpretation and review of laboratory results Abnormal [facility] Phone: Lymphocytes/100 WBC (Bld) 26 % 24 - 43 % [facility] Phone: MCH (RBC) [Entitic mass] 28.3 pg 25.2 - 33.5 pg [facility] Phone: MCHC (RBC) [Mass/Vol] 33.6 g/dL 28.4 - 34.8 g/dL [facility] Phone: MCV (RBC) [Entitic vol] 84.3 fL 82.6 - 102.9 fL [facility] Phone: Monocytes/100 WBC (Bld) 7 % 3 - 12 % M [facility] Phone: NRBC Automated 0.0 0.0 per 100 WBC [facility] Phone: Platelet distribution width (Bld) [Ratio] 12.3 % 11.8 - 14.4 % [facility] Phone: Platelet Estimate NOT REPORTED [facility] Phone: Platelet mean volume (Bld) [Entitic vol] 8.7 fL 8.1 - 13.5 fL [facility] Phone: Platelets (Bld) [#/Vol] 273 10*3/uL [facility] Phone: RBC (Bld) [#/Vol] 5.15 10*6/uL High 3.95 - 5.1 1 m/uL [facility] Phone: RBC (Bld) [#/Vol] NOT REPORTED [facility] Phone: Segmented neutrophils/100 WBC (Bld) 60 % 36 - 65 % [employer] [facility] Phone: Segs Absolute 7.61 [facility] Phone: WBC (Bld) [#/Vol] 12.5 10*3/uL High [facility] Phone: WBC (Bld) [#/Vol] NOT REPORTED [facility] Phone: [facility] Phone: CBC with Diffon 07-06-2021 Abs. Basophil 0.10 k/uL Normal 0.00-0.20 [facility] Comment on above: Performed By: #### D AU #### [facility] [address] [place] [address] Dr. [place], [facility]83 Dispatcher Motor Vehicle: Garrett Perez MD Abs.Imm.Granulocyte 0.07 k/uL Normal 0.00-0.30 [facility] Comment on above: Performed By: #### D AU #### [address] [place] [id number] Dispatcher Motor Vehicle: Garrett Perez MD Abs.Neutrophil (Seg) 7.61 k/uL Normal 1.50-8.10 [facility] Comment on above: Performed By: #### D AU #### [address] [place], [place] [address]83 Dispatcher Motor Vehicle: Garrett Perez MD Basophils/100 WBC (Bld) 1 % Normal 0-2 [facility] Comment on above: Performed By: #### D AU #### [address] [place], [place] [address]83 Dispatcher Motor Vehicle: Garrett Perez MD Eosinophils (Bld) [#/Vol] 0.62 10*3/uL High 0.00-0.44 [facility] Comment on above: Performed By: #### D AU #### [facility] [address] [place], [facility]83 Dispatcher Motor Vehicle: Garrett Perez MD Eosinophils/100 WBC (Bld) 5 % High 1-4 [facility] Comment on above: Performed By: #### D AU #### [facility] [address] [place], [place] [address] Dispatcher Motor Vehicle: Garrett Perez MD Erythrocyte distribution width (RBC) [Ratio] 12.3 % Normal 11.8-14.4 [facility] Comment on above: Performed By: #### D AU #### [facility] [address] [place], [facility]83 Dispatcher Motor Vehicle: Garrett Perez MD Hematocrit (Bld) [Volume fraction] 43.4 % Normal 36.3-47.1 [facility] Comment on above: Performed By: #### D AU #### [facility] [address] [place], [facility]83 Dispatcher Motor Vehicle: Garrett Perez MD Hemoglobin (Bld) [Mass/Vol] 14.6 g/dL Normal 11.9-15.1 [facility] Comment on above: Performed By: #### D AU #### [address] [place], [facility]51 ( Dispatcher Motor Vehicle: Garrett Perez MD Immature granulocytes/100 WBC (Bld) 1 % High 0 [facility] Comment on above: Performed By: #### D AU #### [facility] [address] [place], [facility]83 Dispatcher Motor Vehicle: Garrett Perez MD Lymphocytes (Bld) [#/Vol] 3.20 10*3/uL Normal 1.10-3.70 [facility] Comment on above: Performed By: #### D AU #### [facility] [address] [place], [facility]83 Dispatcher Motor Vehicle: Garrett Perez MD Lymphocytes/100 WBC (Bld) 26 % Normal 24-43 [facility] Comment on above: Performed By: #### D AU #### [facility] [address] [place] [address]83 Dispatcher Motor Vehicle: Garrett Perez MD MCH (RBC) [Entitic mass] 28.3 pg Normal 25.2-33.5 [facility] Comment on above: Performed By: #### D AU #### [facility] [address] [place] [address] Dispatcher Motor Vehicle: Garrett Perez MD MCHC (RBC) [Mass/Vol] 33.6 g/dL Normal 28.4-34.8 [facility] Comment on above: Performed By: #### D AU #### [address] [place], [facility]83 Dispatcher Motor Vehicle: Garrett Perez MD MCV (RBC) [Entitic vol] 84.3 fL Normal 82.6-102.9 [facility] Comment on above: Performed By: #### D AU #### [address] [place], [place] [address] Dispatcher Motor Vehicle: Garrett Perez MD Monocytes (Bld) [#/Vol] 0.89 10*3/uL Normal 0.10-1.20 [facility] Comment on above: Performed By: #### D AU #### [facility] [address] [place] [address] Dr. [place], [place] 77[address]83 Dispatcher Motor Vehicle: Garrett Perez MD Monocytes/100 WBC (Bld) 7 % Normal 3-12 M [facility] Comment on above: Performed By: #### D AU #### [facility] [address] [place] [address] Dr. [place], [place] [address]83 Dispatcher Motor Vehicle: Garrett Perez MD Neutrophil (Seg) 60 % Normal 36-65 [facility] Comment on above: Performed By: #### D AU #### [facility] [address] [place], [place] 336[address]83 Dispatcher Motor Vehicle: Garrett Perez MD NRBC Automated 0.0 per 100 WBC Normal 0.0 [facility] Comment on above: Performed By: #### D AU #### [facility] [address] [place], [place] 453[address]83 Dispatcher Motor Vehicle: Garrett Perez MD Platelet mean volume (Bld) [Entitic vol] 8.7 fL Normal 8.1-13.5 [facility] Comment on above: Performed By: #### D AU #### [address] [place], [place] 4654883 Dispatcher Motor Vehicle: Garrett Perez MD Platelets (Bld) [#/Vol] 273 10*3/uL Normal 138-453 [facility] Comment on above: Performed By: #### D AU #### [address] [place], [place] 8910383 Dispatcher Motor Vehicle: Garrett Perez MD RBC (Bld) [#/Vol] 5.15 10*6/uL High 3.95-5.11 [facility] Comment on above: Performed By: #### D AU #### [address] [place], [place] 7088883 Dispatcher Motor Vehicle: Garrett Perez MD WBC (Bld) [#/Vol] 12.5 10*3/uL High 3.5-11.3 [facility] Comment on above: Performed By: #### D AU #### [facility] [address] [place] [address] Dr. [place], [place] 9537683 Dispatcher Motor Vehicle: Garrett Perez MD Auto Diff Performed NOT REPORTED Normal [facility] Comment on above: Performed By: #### D AU #### [facility] [address] [place] [address] Dr. [place], [facility]83 Dispatcher Motor Vehicle: Garrett Perez MD Platelet Estimate NOT REPORTED Normal [facility] Comment on above: Performed By: #### D AU #### [facility] [address] [place] [address] Dispatcher Motor Vehicle: Garrett Perez MD RBC morphology finding Nom (Bld) NOT REPORTED Normal [facility] Comment on above: Performed By: #### D AU #### [facility] [address] [place] [address] Dispatcher Motor Vehicle: Garrett Perez MD WBC Morphology NOT REPORTED Normal [facility] Comment on above: Performed By: #### D AU #### [facility] [address] [place] [address] Dispatcher Motor Vehicle: Garrett Perez MD COVID-19, RapidOrdered By: Maryjo Irizarry on 07-06-2021 SARS-CoV-2 (COVID-19) RNA MORENA+probe Ql (Unsp spec) Not detected Not Detected [facility] Phone: Comment on above: Rapid NAAT: The specimen is NEGATIVE for SARS-CoV-2, the novel coronavirus associated with COVID-19. The ID NOW COVID-19 assay is designed to detect the virus that causes COVID-19 in patients with signs and symptoms of infection who are suspected of COVID-19. An individual without symptoms of COVID-19 and who is not shedding SARS-CoV-2 virus would expect to have a negative (not detected) result in this assay. Negative results should be treated as presumptive and, if inconsistent with clinical signs and symptoms or necessary for patient management, should be tested with an alternative molecular assay. Negative results do not preclude SARS-CoV-2 infection and should not be used as the sole basis for patient management decisions. Fact sheet for Healthcare Providers: https://www.fda.gov/media/163508/download Fact sheet for Patients: https://www.fda.gov/media/172618/download Methodology: Isothermal Nucleic Acid Amplification Specimen Description .NASOPHARYNGEAL SWAB [facility] Phone: [facility] Phone: Comp Metabolic Profon 2020 (cont.) Normal [facility] Comment on above: Result Comment: Aver age GFR for 20-29 years old: 116 mL/min/1.73sq m Chronic Kidney Disease: <60 mL/min/1.73sq m Kidney failure: <15 mL/min/1.73sq m eGFR calculated using average adult body mass. Additional eGFR calculator available at: http://www.[employer]/multiple_crcl_2012.htm Performed By: #### D AU #### [facility] [address] [place] [address] [place] [address] Dispatcher Motor Vehicle: Garrett Perez MD Albumin [Mass/Vol] 4.2 g/dL Normal 3.5-5.2 [facility] Comment on above: Performed By: #### D AU #### [facility] [address] [place] [address] Dispatcher Motor Vehicle: Garrett Perez MD Albumin/Glob Ratio 1.4 Normal 1.0-2.5 [facility] Comment on above: Performed By: #### D AU #### [address] [place] [address] Dispatcher Motor Vehicle: Garrett Perez MD Alkaline Phos 74 U/L Normal 35-104 [facility] Comment on above: Performed By: #### D AU #### [facility] [address] [place], [place] 314[address]83 Dispatcher Motor Vehicle: Garrett Perez MD ALT [Catalytic activity/Vol] 31 U/L Normal 5-33 [facility] Comment on above: Performed By: #### D AU #### [facility] [address] [place] [address] Dispatcher Motor Vehicle: Garrett Perez MD Anion gap [Moles/Vol] 13 mmol/L Normal 9-17 [facility] Comment on above: Performed By: #### D AU #### [facility] [address] [place], [place] 2063883 Dispatcher Motor Vehicle: Garrett Perez MD AST [Catalytic activity/Vol] 19 U/L Normal <32 [facility] Comment on above: Performed By: #### D AU #### [facility] [address] [place], [place] 7155683 Dispatcher Motor Vehicle: Garrett Perez MD Bilirubin [Mass/Vol] 0.17 mg/dL Low 0.3-1.2 [facility] Comment on above: Performed By: #### D AU #### [facility] [address] [place], [place] 5100583 Dispatcher Motor Vehicle: Garrett Perez MD BUN/CRE Ratio 7 Low 9-20 [facility] Comment on above: Performed By: #### D AU #### [facility] [address] [place], [place] 542[address]83 Dispatcher Motor Vehicle: Garrett Perez MD Calcium [Mass/Vol] 9.2 mg/dL Normal 8.6-10.4 [facility] Comment on above: Performed By: #### D AU #### [facility] [address] [place] [address] [place] [address] Dispatcher Motor Vehicle: Garrett Perez MD Chloride [Moles/Vol] 104 mmol/L Normal 98-107 [facility] Comment on above: Performed By: #### D AU #### [facility] [address] [place], [place] 6975283 Dispatcher Motor Vehicle: Garrett Perez MD CO2 [Moles/Vol] 20 mmol/L Normal 20-31 [facility] Comment on above: Performed By: #### D AU #### [facility] [address] [place] [address] Dr. [place], [place] 2530383 Dispatcher Motor Vehicle: Garrett Perez MD Creatinine [Mass/Vol] 0.82 mg/dL Normal 0.50-0.90 [facility] Comment on above: Performed By: #### D AU #### [facility] [address] [place], [place] 0[address]83 Dispatcher Motor Vehicle: Garrett Perez MD GFR, Amer >60 Normal >60 [facility] Comment on above: Performed By: #### D AU #### [facility] [address] [place], [place] 024[address]83 Dispatcher Motor Vehicle: Garrett Perez MD GFR,non Amer >60 Normal >60 [facility] Comment on above: Performed By: #### D AU #### [facility] [address] [place], [place] 9576783 Dispatcher Motor Vehicle: Garrett Perez MD Glucose [Mass/Vol] 100 mg/dL High 70-99 [facility] Comment on above: Performed By: #### D AU #### [facility] [address] [place], [place] 8598883 Dispatcher Motor Vehicle: Garrett Perez MD Potassium [Moles/Vol] 4.0 mmol/L Normal 3.7-5.3 [facility] Comment on above: Performed By: #### D AU #### [facility] [address] [place] [address] [place] [address] Dispatcher Motor Vehicle: Garrett Perez MD Protein [Mass/Vol] 7.2 g/dL Normal 6.4-8.3 [facility] Comment on above: Performed By: #### D AU #### [facility] [address] [place] [address] Dispatcher Motor Vehicle: Garrett Perez MD Sodium [Moles/Vol] 137 mmol/L Normal 135-144 [facility] Comment on above: Performed By: #### D AU #### [facility] [address] [place], [place] 6528683 Dispatcher Motor Vehicle: Garrett Perez MD Staging: Normal [facility] Comment on above: Result Comment: Stag e 1: Some kidney damage normal GFR Stage 2: Mild kidney damage GFR 60-89 Stage 3: Moderate kidney damage GFR 30-59 Stage 4: Severe kidney damage GFR 15-29 Stage 5: Severe kidney damage GFR <15 ESRD - chronic treatment by dialysis or transplant Performed By: #### D AU #### [facility] [address] [place] [address] Dispatcher Motor Vehicle: Garrett Perez MD Urea nitrogen [Mass/Vol] 6 mg/dL Normal 6-20 [facility] Comment on above: Performed By: #### D AU #### [facility] [address] [place] [address] Dispatcher Motor Vehicle: Garrett Perez MD Comprehensive Metabolic Pane lOrdered By: Kalyan Irizarry on 07-06-2021 Albumin [Mass/Vol] 4.2 g/dL 3.5 - 5.2 g/dL [facility] Phone: Albumin/Globulin [Mass ratio] 1.4 {ratio} [facility] Phone: ALP (Bld) [Catalytic activity/Vol] 74 U/L 35 - 104 U/L [facility] Phone: ALT [Catalytic activity/Vol] 31 U/L 5 - 33 U/L [facility] Phone: Anion gap [Moles/Vol] 13 mmol/L 9 - 17 mmol/L [facility] Phone: AST [Catalytic activity/Vol] 19 U/L <32 [facility] Phone: Bilirubin [Mass/Vol] 0.17 mg/dL Low 0.3 - 1 .2 mg/dL [facility] Phone: Calcium [Mass/Vol] 9.2 mg/dL 8.6 - 10. 4 mg/dL [facility] Phone: Chloride [Moles/Vol] 104 mmol/L 98 - 10 7 mmol/L [facility] Phone: CO2 [Moles/Vol] 20 mmol/L 20 - 31 mmol/L [facility] Phone: Creatinine [Mass/Vol] 0.82 mg/dL 0.50 - 0.90 mg/dL [facility] Phone: Free PSA/Total PSA [Mass fraction] 7.2 g/dL 6.4 - 8.3 g/dL [facility] Phone: GFR >60 >60 mL/min [employer] Phone: GFR Non- >60 >60 mL/min [facility] Phone: Glucose [Mass/Vol] 100 mg/dL High 70 - 99 mg/dL [facility] Phone: Potassium [Moles/Vol] 4.0 mmol/L 3.7 - 5.3 mmol/L [facility] Phone: Sodium [Moles/Vol] 137 mmol/L 135 - 144 mmol/L [facility] Phone: Urea nitrogen (BldV) [Mass/Vol] 6 mg/dL 6 - 20 mg/dL [facility] Phone: Urea nitrogen/Creatinine (Bld) [Mass ratio] 7 Low [facility] Phone: Drug Scr, Abuse, Uron 2020 Amphetamine(s),Ur Negative Normal NEG [facility] Comment on above: Performed By: #### D AU #### [facility] [address] [place] [address] Dispatcher Motor Vehicle: Garrett Perez MD Barbiturate(s),Ur Negative Normal NEG [facility] Comment on above: Performed By: #### D AU #### [facility] [address] [place] [address] Dispatcher Motor Vehicle: Garrett Perez MD Benzodiazepine(s) Negative Normal NEG [facility] Comment on above: Performed By: #### D AU #### [facility] [address] [place], [place] 928[address]83 Dispatcher Motor Vehicle: Garrett Perez MD Buprenorphrine, Ur Negative Normal [facility] Comment on above: Performed By: #### D AU #### [facility] [address] [place], [place] 736[address]83 Dispatcher Motor Vehicle: Garrett Perez MD Cannabinoid(s),Ur Positive Abnormal NEG [facility] Comment on above: Performed By: #### D AU #### [facility] [address] Dr. [place], [place] [id number] Dispatcher Motor Vehicle: Garrett Perez MD Cocaine Metabolite Negative Normal [facility] Comment on above: Performed By: #### D AU #### [facility] [address] [place], [facility]83 Dispatcher Motor Vehicle: Garrett Perez MD Methadone Ql (U) Negative Normal [facility] Comment on above: Performed By: #### D AU #### [facility] [address] [place], [facility]83 Dispatcher Motor Vehicle: Garrett Perez MD Methamphetamine, Ur Negative Normal [facility] Comment on above: Performed By: #### D AU #### [facility] [address] [place], [facility]83 Dispatcher Motor Vehicle: Garrett Perez MD Opiate(s), Ur Negative Normal [facility] Comment on above: Performed By: #### D AU #### [facility] [address] [place], [facility]83 Dispatcher Motor Vehicle: Garrett Perez MD Oxycodone, Urine Negative Normal [facility] Comment on above: Performed By: #### D AU #### [facility] [address] [place] [address] Dispatcher Motor Vehicle: Garrett Perez MD Phencyclidine, Ur Negative Normal NEG [facility] Comment on above: Performed By: #### D AU #### [facility] [address] [place] [address] Dispatcher Motor Vehicle: Garrett Perez MD Propoxyphene,Urine Negative Normal NEG [facility] Comment on above: Performed By: #### D AU #### [facility] [address] [place] [address] Dispatcher Motor Vehicle: Garrett Perez MD Tricyclic antidepressants Screen Ql (U) Negative Normal NEG [facility] Comment on above: Result Comment: Drug screen results are to be used for medical purposes only. All positive results are unconfirmed. Testing for employment or legal uses should be sent to a reference laboratory for confirmation. Performed By: #### D AU #### [facility] [address] [place] [address] Dr. [place], [place] [id number] Dispatcher Motor Vehicle: Garrett Perez MD Interpretive Info NOT REPORTED Normal [facility] Comment on above: Performed By: #### D AU #### [facility] [address] [place] [address] [place] [address] Dispatcher Motor Vehicle: Garrett Perez MD MDMA, Urine NOT REPORTED Normal NEG [facility] Comment on above: Performed By: #### D AU #### [facility] [address] [place] [address] [place] [address] Dispatcher Motor Vehicle: Garrett Perez MD EthanolOrdered By: Kalyan iglesias on 07-06-2021 Ethanol [Mass/Vol] mg/dL <10 mg/dL [facility] Phone: Ethanol percent <0.010 <0.010 % [facility] Phone: [facility] Phone: Ethanol Alcoholon 07-06-2021 Ethanol [Mass/Vol] mg/dL Normal <10 [facility] Comment on above: Performed By: #### C OVRB #### [facility] [address] [place] [address] Dispatcher Motor Vehicle: Garrett Perez MD Ethanol percent <0.010 Normal <0.010 [facility] Comment on above: Performed By: #### C OVRB #### [facility] [address] [place] [address] Dispatcher Motor Vehicle: Garrett Perez MD HCG Qualitative, SerumOrdere d By: Kalyan Irizarry on 07-06-2021 hCG Qual Negative NEGATIVE [facility] [employer] Phone: Comment on above: Specimens with hCG l evels near the threshold of the test (25 mIU/mL) may give a negative or indeterminate result. In such cases, another test should be performed with a new specimen in 48-72 hours. If early is suspected clinically in this setting, correlation with quantitative serum b-hCG level is suggested. [employer] has confirmed the use of plasma for this test. This has not been cleared or approved by the U.S. Food and Drug Administration. The FDA has determined that such clearance is not necessary. [employer] Phone: HCG Screen, Bloodon 07-06-20 21 HCG Screen, Blood Negative Normal NEG [facility] Comment on above: Result Comment: Spec imens with hCG levels near the threshold of the test (25 mIU/mL) may give a negative or indeterminate result. In such cases, another test should be performed with a new specimen in 48-72 hours. If early is suspected clinically in this setting, correlation with quantitative serum b-hCG level is suggested. [employer] has confirmed the use of plasma for this test. This has not been cleared or approved by the U.S. Food and Drug Administration. The FDA has determined that such clearance is not necessary. Performed By: #### D AU #### [facility] [address] [place] [address] Dispatcher Motor Vehicle: Garrett Perez MD Laboratory - Chemistry and C hemistry - challengeOrdered By: Kalyan Irizarry on 07-06-2021 GFR/1.73 sq M.predicted MDRD (S/P/Bld) [Vol rate/Area] [facility] [employer] Phone: Comment on above: Average GFR for 20-2 9 years old: 116 mL/min/1.73sq m Chronic Kidney Disease: <60 mL/min/1.73sq m Kidney failure: <15 mL/min/1.73sq m eGFR calculated using average adult body mass. Additional eGFR calculator available at: http://www.[employer]/multiple_crcl_2012.htm Stage 1: Some kidney damage normal GFR Stage 2: Mild kidney damage GFR 60-89 Stage 3: Moderate kidney damage GFR 30-59 Stage 4: Severe kidney damage GFR 15-29 Stage 5: Severe kidney damage GFR <15 ESRD - chronic treatment by dialysis or transplant No Panel InformationOrdered By: Kalyan Irizarry on 07-06-2021 Interpretation and review of laboratory results Abnormal [employer] Phone: [employer] Phone: [id number] 07-06-2021 SARS-CoV-2 (COVID-19) RNA MORENA+probe Ql (Unsp spec) Not detected Normal [facility] Comment on above: Result Comment: Rapid NAAT: The specimen is NEGATIVE for SARS-CoV-2, the novel coronavirus associated with COVID-19. The ID NOW COVID-19 assay is designed to detect the virus that causes COVID-19 in patients with signs and symptoms of infection who are suspected of COVID-19. An individual without symptoms of COVID-19 and who is not shedding SARS-CoV-2 virus would expect to have a negative (not detected) result in this assay. Negative results should be treated as presumptive and, if inconsistent with clinical signs and symptoms or necessary for patient management, should be tested with an alternative molecular assay. Negative results do not preclude SARS-CoV-2 infection and should not be used as the sole basis for patient management decisions. Fact sheet for Healthcare Providers: https://www.fda.gov/media/538234/download Fact sheet for Patients: https://www.fda.gov/media/176367/download Methodology: Isothermal Nucleic Acid Amplification Performed By: #### C OVRB #### [facility] [address] [place], [place] [id number] Dispatcher Motor Vehicle: Garrett Perez MD Salicylateon 07-06-2021 Salicylate <1 Low 3-10 [facility] Comment on above: Performed By: #### D AU #### [facility] [address] [place], [place] [id number] Dispatcher Motor Vehicle: Garrett Perez MD SalicylateOrdered By: Gil Irizarry on 07-06-2021 Salicylate Lvl <1 Low 3 - 10 mg/dL [facility] Work Phone: Urinalysis w/ Microon 2020 ----- Normal [facility] Comment on above: Performed By: #### C OVRB #### [facility] [address] [place], [place] [id number] Dispatcher Motor Vehicle: Garrett Perez MD Bacteria 1+ Abnormal NONE [facility] Comment on above: Performed By: #### C OVRB #### [facility] [address] [place], [place] [id number] Dispatcher Motor Vehicle: Garrett Perez MD Bilirubin, SemiQt,Ur Negative Normal NEG [facility] Comment on above: Performed By: #### C OVRB #### [facility] [address] [place], [place] [id number] Dispatcher Motor Vehicle: Garrett Perez MD Blood, Urine Negative Normal NEG [facility] Comment on above: Performed By: #### C OVRB #### [facility] [address] [place], [place] [id number] Dispatcher Motor Vehicle: Garrett Perez MD Clarity (U) CLEAR Normal CLEAR [facility] Comment on above: Performed By: #### C OVRB #### [facility] [address] [place], [place] [id number] Dispatcher Motor Vehicle: Garrett Perez MD Color (U) YELLOW Normal YEL [facility] Comment on above: Performed By: #### C OVRB #### [facility] [address] [place], [place] 5289883 Dispatcher Motor Vehicle: Garrett Perez MD Epithelial cells LM Ql (Urine sed) 5 TO 10 Normal 0-25 [facility] Comment on above: Performed By: #### C OVRB #### [facility] [address] [place], [place] 3554183 Dispatcher Motor Vehicle: Garrett Perez MD Glucose Ql (U) Negative Normal NEG [facility] Comment on above: Performed By: #### C OVRB #### [facility] [address] [place] [address] Dr. [place], [place] [phone] Dispatcher Motor Vehicle: Garrett Perez MD Ketones Ql (U) Negative Normal NEG [facility] Comment on above: Performed By: #### C OVRB #### [facility] [address] [place] [address] Dr. [place], [place] [id number] Dispatcher Motor Vehicle: Garrett Perez MD Leukocyte esterase Test strip Ql (U) Negative Normal NEG [facility] Comment on above: Performed By: #### C OVRB #### [facility] [address] [place] [address] [place] [address] Dispatcher Motor Vehicle: Garrett Perez MD Mucus Strands 1+ Abnormal NONE [facility] Comment on above: Performed By: #### C OVRB #### [facility] [address] [place], [place] 6071983 Dispatcher Motor Vehicle: Garrett Perez MD Nitrite,Ur Negative Normal NEG [facility] Comment on above: Performed By: #### C OVRB #### [facility] [address] [place], [place] 3507983 Dispatcher Motor Vehicle: Garrett Perez MD PH,Ur 6.5 Normal 5.0-9.0 [facility] Comment on above: Performed By: #### C OVRB #### [facility] [address] [place], [place] 3232683 Dispatcher Motor Vehicle: Garrett Perez MD Protein Ql (U) Negative Normal NEG [facility] Comment on above: Performed By: #### C OVRB #### [facility] [address] [place], [place] 0928083 Dispatcher Motor Vehicle: Garrett Perez MD Spec. [place],Ur 1.020 Normal 1.010-1.020 [facility] Comment on above: Performed By: #### C OVRB #### [facility] [address] [place] [id number] Dispatcher Motor Vehicle: Garrett Perez MD Urine RBC's 0 TO 2 Normal 0-2 [facility] Comment on above: Performed By: #### C OVRB #### [facility] [address] [place], [facility]83 Dispatcher Motor Vehicle: Garrett Perez MD Urine WBC's 0 TO 2 Normal 0-5 [facility] Comment on above: Performed By: #### C OVRB #### [address] [place] [id number] Dispatcher Motor Vehicle: Garrett Perez MD Urobilinogen,Ur Normal Normal NORM [facility] Comment on above: Performed By: #### C OVRB #### [facility] [address] [place], [facility]83 Dispatcher Motor Vehicle: Garrett Perez MD Amorphous sediment LM Ql (Urine sed) NOT REPORTED Normal NONE [facility] Comment on above: Performed By: #### C OVRB #### [facility] [address] [place], [place] 6994483 Dispatcher Motor Vehicle: Garrett Perez MD Casts NOT REPORTED Normal [facility] Comment on above: Performed By: #### C OVRB #### [facility] [address] [place], [place] 0038583 Dispatcher Motor Vehicle: Garrett Perez MD Comment NOT REPORTED Normal [facility] Comment on above: Performed By: #### C OVRB #### [facility] [address] [place], [place] 2542183 Dispatcher Motor Vehicle: Garrett Perez MD Crystals LM Nom (Urine sed) NOT REPORTED Normal [facility] Comment on above: Performed By: #### C OVRB #### [facility] [address] [place], [place] 0537883 Dispatcher Motor Vehicle: Garrett Perez MD Epithelial, Renal NOT REPORTED Normal [address] [place] [address] Comment on above: Performed By: #### C OVRB #### [facility] [address] [place], [place] 7035183 Dispatcher Motor Vehicle: Garrett Perez MD Other Observations NOT REPORTED Normal NREQ [facility] Comment on above: Performed By: #### C OVRB #### [facility] [address] [place] [address] Dispatcher Motor Vehicle: Garrett Perez MD Trichomonas NOT REPORTED Normal [facility] Comment on above: Performed By: #### C OVRB #### [facility] [address] [place] [address] Dr. [place], [place] 1973483 Dispatcher Motor Vehicle: Garrett Perez MD Yeast NOT REPORTED Normal NONE [facility] Comment on above: Performed By: #### C OVRB #### [facility] [address] [place], [place] 1518783 Dispatcher Motor Vehicle: Garrett Perez MD Urinalysis with microscopicO rdered By: Kalyan Irizarry on 07-06-2021 - [facility] [employer] Phone: Amorphous, UA NOT REPORTED None [facility] Phone: Bacteria, UA 1+ Abnormal None [facility] Phone: Bilirubin Urine Negative NEGATIVE [facility] Work Phone: Casts UA NOT REPORTED /LPF [facility] [employer] Work Phone: Color, UA YELLOW YELLOW [facility] Work Phone: Crystals, UA NOT REPORTED None /HPF [facility] [employer] [facility] Work Phone: Epithelial Cells UA 5 TO 10 [facility] [employer] Work Phone: Glucose, Ur Negative NEGATIVE [facility] Work Phone: Interpretation and review of laboratory results Abnormal [facility] Work Phone: Ketones Ql (U) Negative NEGATIVE [facility] [employer] Work Phone: Leukocyte esterase Test strip Ql (U) Negative NEGATIVE [facility] Work Phone: Mucus, UA 1+ Abnormal None [facility] Work Phone: Nitrite, Urine Negative NEGATIVE [facility] Work Phone: Other Observations UA NOT REPORTED NOT REQ. [facility] Work Phone: pH, UA 6.5 [facility] [employer] Work Phone: Protein, UA Negative NEGATIVE [facility] Work Phone: RBC, UA 0 TO 2 [facility] [employer] Work Phone: Renal Epithelial, UA NOT REPORTED 0 /HPF [facility] Work Phone: Specific [place], UA 1.020 [facility] [employer] Work Phone: Trichomonas, UA NOT REPORTED None [facility] [employer] Work Phone: Turbidity UA CLEAR CLEAR [facility] [employer] Work Phone: Urinalysis Comments NOT REPORTED [facility] Work Phone: Urine Hgb Negative NEGATIVE [facility] Work Phone: Urobilinogen, Urine Normal Normal [facility] [employer] Work Phone: WBC, UA 0 TO 2 [email or web address] Work Phone: Yeast, UA NOT REPORTED None [email or web address] Work Phone: [facility] Work Phone: Urine Drug ScreenOrdered By: Kalyan Irizarry on 07-06-2021 Amphetamine Screen, Ur Negative NEGATIVE [facility] [employer] Work Phone: Barbiturate Screen, Ur Negative NEGATIVE [facility] [employer] Work Phone: Benzodiazepine Screen, Urine Negative NEGATIVE [facility] [employer] Work Phone: Buprenorphine Urine Negative NEGATIVE [facility] Work Phone: Cannabinoid Scrn, Ur Positive Abnormal NEGATIVE [facility] [employer] Work Phone: Cocaine Metabolite, Urine Negative NEGATIVE [facility] Work Phone: Interpretation and review of laboratory results Abnormal [facility] Work Phone: MDMA, Urine NOT REPORTED NEGATIVE [facility] Work Phone: Methadone Screen, Urine Negative NEGATIVE [facility] [employer] Work Phone: Methamphetamine, Urine Negative NEGATIVE [facility] [employer] Work Phone: Opiates, Urine Negative NEGATIVE [facility] Work Phone: Oxycodone Screen, Ur Negative NEGATIVE [facility] [employer] Work Phone: Phencyclidine, Urine Negative NEGATIVE [facility] [employer] Work Phone: Propoxyphene, Urine Negative NEGATIVE [facility] Work Phone: Test Information NOT REPORTED [email or web address] Work Phone: Tricyclic Antidepressants, Urine Negative NEGATIVE [facility] [employer] Work Phone: Comment on above: Drug screen results are to be used for medical purposes only. All positive results are unconfirmed. Testing for employment or legal uses should be sent to a reference laboratory for confirmation. [email or web address] Work Phone: Acetaminophenon 05-15-2021 Acetaminophen [Mass/Vol] ug/mL Low 10-30 [facility] Comment on above: Performed By: #### D AU #### [facility] [address] [place] [address] Dispatcher Motor Vehicle: Garrett Perez MD Acetaminophen levelOrdered B y: Blanco Montalvo on 05-15-2021 Acetaminophen Level <5 Low 10 - 30 ug/mL [employer] Phone: Interpretation and review of laboratory results Abnormal [employer] Phone: [employer] Phone: CBC auto differentialOrdered By: Blanco Adamesain on 05-15-2021 Absolute Eos # 0.18 [employer] Phone: Absolute Immature Granulocyte 0.06 [employer] Phone: Absolute Lymph # 2.41 [employer] Phone: Absolute [place] # 0.83 [employer] Phone: Basophils (Bld) [#/Vol] 0.07 10*3/uL [employer] Phone: Basophils/100 WBC (Bld) 1 % 0 - 2 % M [employer] Phone: Differential Type NOT REPORTED [employer] Phone: Eosinophils/100 WBC (Bld) 1 % 1 - 4 % [employer] Phone: Hematocrit (Bld) [Volume fraction] 45.1 % 36.3 - 47.1 % [employer] Phone: Hemoglobin.gastrointest inal spec 1 Ql (Stl) 15.0 g/dL 11.9 - 15.1 g/dL [employer] Phone: Immature granulocytes/100 WBC (Bld) 1 % High 0 [employer] Phone: Interpretation and review of laboratory results Abnormal [employer] Phone: Lymphocytes/100 WBC (Bld) 18 % Low 24 - 43 % [employer] Phone: MCH (RBC) [Entitic mass] 28.4 pg 25.2 - 33.5 pg [employer] Phone: MCHC (RBC) [Mass/Vol] 33.3 g/dL 28.4 - 34.8 g/dL [employer] Phone: MCV (RBC) [Entitic vol] 85.4 fL 82.6 - 102.9 fL [employer] Phone: Monocytes/100 WBC (Bld) 6 % 3 - 12 % M [employer] Phone: NRBC Automated 0.0 0.0 per 100 WBC [employer] Phone: Platelet distribution width (Bld) [Ratio] 13.0 % 11.8 - 14.4 % [employer] Phone: Platelet Estimate NOT REPORTED [employer] Phone: Platelet mean volume (Bld) [Entitic vol] 8.3 fL 8.1 - 13.5 fL [employer] Phone: Platelets (Bld) [#/Vol] 301 10*3/uL [employer] Phone: RBC (Bld) [#/Vol] 5.28 10*6/uL High 3.95 - 5.1 1 m/uL [employer] Phone: RBC (Bld) [#/Vol] NOT REPORTED [employer] Phone: Segmented neutrophils/100 WBC (Bld) 73 % High 36 - 65 % [employer] Phone: Segs Absolute 9.71 High [employer] Phone: WBC (Bld) [#/Vol] 13.3 10*3/uL High [employer] Phone: WBC (Bld) [#/Vol] NOT REPORTED [facility] Work Phone: [facility] Work Phone: CBC with Diffon 05-15-2021 Abs. Basophil 0.07 k/uL Normal 0.00-0.20 [facility] Comment on above: Performed By: #### C DP, MICHAEL, CP, HCG #### [address] [place] [id number] Dispatcher Motor Vehicle: Garrett Perez MD Abs.Imm.Granulocyte 0.06 k/uL Normal 0.00-0.30 [facility] Comment on above: Performed By: #### C DPMICHAEL, CP, HCG #### [address] [place] [id number] Dispatcher Motor Vehicle: Garrett Perez MD Abs.Neutrophil (Seg) 9.71 k/uL High 1.50-8.10 [facility] Comment on above: Performed By: #### C MICHAEL BARR, CP, HCG #### [address] [place] [address] Dispatcher Motor Vehicle: Garrett Perez MD Basophils/100 WBC (Bld) 1 % Normal 0-2 [facility] Comment on above: Performed By: #### C MICHAEL BARR, CP, HCG #### [address] [place] [address] Dispatcher Motor Vehicle: Garrett Perez MD Eosinophils (Bld) [#/Vol] 0.18 10*3/uL Normal 0.00-0.44 [facility] Comment on above: Performed By: #### C DP, SALI, CP, HCG #### [address] [place], [place] [id number] Dispatcher Motor Vehicle: Garrett Perez MD Eosinophils/100 WBC (Bld) 1 % Normal 1-4 [facility] Comment on above: Performed By: #### C DP, SALI, CP, HCG #### [facility] [address] [place] [address] [place] [address] Dispatcher Motor Vehicle: Garrett Perez MD Erythrocyte distribution width (RBC) [Ratio] 13.0 % Normal 11.8-14.4 [facility] Comment on above: Performed By: #### C DP, SALI, CP, HCG #### [address] [place] [address] Dispatcher Motor Vehicle: Garrett Perez MD Hematocrit (Bld) [Volume fraction] 45.1 % Normal 36.3-47.1 [facility] Comment on above: Performed By: #### C DP, SALI, CP, HCG #### [address] [place] [address] Dispatcher Motor Vehicle: Garrett Perez MD Hemoglobin (Bld) [Mass/Vol] 15.0 g/dL Normal 11.9-15.1 [facility] Comment on above: Performed By: #### C DP, SALI, CP, HCG #### [address] [place] [address] Dispatcher Motor Vehicle: Garrett Perez MD Immature granulocytes/100 WBC (Bld) 1 % High 0 [facility] Comment on above: Performed By: #### C DP, SALI, CP, HCG #### [address] [place] [address] Dispatcher Motor Vehicle: Garrett Perez MD Lymphocytes (Bld) [#/Vol] 2.41 10*3/uL Normal 1.10-3.70 [facility] Comment on above: Performed By: #### C DP, SALI, CP, HCG #### [address] [place], [place] [id number] Dispatcher Motor Vehicle: Garrett Perez MD Lymphocytes/100 WBC (Bld) 18 % Low 24-43 [facility] Comment on above: Performed By: #### C DP, SALI, CP, HCG #### [facility] [address] [place] [address] Dispatcher Motor Vehicle: Garrett Perez MD MCH (RBC) [Entitic mass] 28.4 pg Normal 25.2-33.5 [facility] Comment on above: Performed By: #### C DP, SALI, CP, HCG #### [facility] [address] [place] [id number] Dispatcher Motor Vehicle: Garrett Perez MD MCHC (RBC) [Mass/Vol] 33.3 g/dL Normal 28.4-34.8 [facility] Comment on above: Performed By: #### C DP, SALI, CP, HCG #### [address] [place] [id number] Dispatcher Motor Vehicle: Garrett Perez MD MCV (RBC) [Entitic vol] 85.4 fL Normal 82.6-102.9 [facility] Comment on above: Performed By: #### C DP, MICHAEL, CP, HCG #### [address] [place] [address] Dispatcher Motor Vehicle: Garrett Perez MD Monocytes (Bld) [#/Vol] 0.83 10*3/uL Normal 0.10-1.20 [facility] Comment on above: Performed By: #### C DP, SALI, CP, HCG #### [address] [place] [address] Dispatcher Motor Vehicle: Garrett Perez MD Monocytes/100 WBC (Bld) 6 % Normal 3-12 M [facility] Comment on above: Performed By: #### C DP, SALI, CP, HCG #### [address] [place] [address] Dispatcher Motor Vehicle: Garrett Perez MD Neutrophil (Seg) 73 % High 36-65 [facility] Comment on above: Performed By: #### C DP SALI, CP, HCG #### [address] [place] [address] Dispatcher Motor Vehicle: Garrett Perez MD NRBC Automated 0.0 per 100 WBC Normal 0.0 [facility] Comment on above: Performed By: #### C DP, SALI, CP, HCG #### [address] [place], [place] [address] Dispatcher Motor Vehicle: Garrett Perez MD Platelet mean volume (Bld) [Entitic vol] 8.3 fL Normal 8.1-13.5 [facility] Comment on above: Performed By: #### C MICHAEL BARR, CP, HCG #### [address] [place] [address] Dispatcher Motor Vehicle: Garrett Perez MD Platelets (Bld) [#/Vol] 301 10*3/uL Normal 138-453 [facility] Comment on above: Performed By: #### C DPMICHAEL, CP, HCG #### [address] [place] [address] Dispatcher Motor Vehicle: Garrett Perez MD RBC (Bld) [#/Vol] 5.28 10*6/uL High 3.95-5.11 [facility] Comment on above: Performed By: #### C MICHAEL BARR, CP, HCG #### [address] [place], [facility]83 Dispatcher Motor Vehicle: Garrett Perze MD WBC (Bld) [#/Vol] 13.3 10*3/uL High 3.5-11.3 [facility] Comment on above: Performed By: #### C CORTNEY SALI, CP, HCG #### [address] [place] [address] Dispatcher Motor Vehicle: Garrett Perez MD Auto Diff Performed NOT REPORTED Normal [facility] Comment on above: Performed By: #### C DP, SALI, CP, HCG #### [facility] [address] [place], [place] [id number] Dispatcher Motor Vehicle: Garrett Perez MD Platelet Estimate NOT REPORTED Normal [facility] Comment on above: Performed By: #### C DP, SALI, CP, HCG #### [facility] [address] [place] [address] Dispatcher Motor Vehicle: Garrett Perez MD RBC morphology finding Nom (Bld) NOT REPORTED Normal [facility] Comment on above: Performed By: #### C DP, SALI, CP, HCG #### [facility] [address] [place] [address] [place] [address] Dispatcher Motor Vehicle: Garrett Perez MD WBC Morphology NOT REPORTED Normal [facility] Comment on above: Performed By: #### C DP, SALI, CP, HCG #### [address] [place], [place] [id number] Dispatcher Motor Vehicle: Garrett Perez MD COVID-19, RapidOrdered By: Nicolle Montalvo on 05-15-2021 SARS-CoV-2 (COVID-19) RNA MORENA+probe Ql (Unsp spec) Not detected Not Detected [facility] Work Phone: Comment on above: Rapid NAAT: The specimen is NEGATIVE for SARS-CoV-2, the novel coronavirus associated with COVID-19. The ID NOW COVID-19 assay is designed to detect the virus that causes COVID-19 in patients with signs and symptoms of infection who are suspected of COVID-19. An individual without symptoms of COVID-19 and who is not shedding SARS-CoV-2 virus would expect to have a negative (not detected) result in this assay. Negative results should be treated as presumptive and, if inconsistent with clinical signs and symptoms or necessary for patient management, should be tested with an alternative molecular assay. Negative results do not preclude SARS-CoV-2 infection and should not be used as the sole basis for patient management decisions. Fact sheet for Healthcare Providers: https://www.fda.gov/media/898102/download Fact sheet for Patients: https://www.fda.gov/media/775225/download Methodology: Isothermal Nucleic Acid Amplification Specimen Description .NASOPHARYNGEAL SWAB [facility] Work Phone: [facility] Work Phone: Comp Metabolic Profon 2020 (cont.) Normal [facility] Comment on above: Result Comment: Aver age GFR for 20-29 years old: 116 mL/min/1.73sq m Chronic Kidney Disease: <60 mL/min/1.73sq m Kidney failure: <15 mL/min/1.73sq m eGFR calculated using average adult body mass. Additional eGFR calculator available at: http://www.[employer]/multiple_crcl_2011.htm Performed By: #### C MICHAEL BARR CP, HCG #### [facility] [address] [place] [address] [place] [address] Dispatcher Motor Vehicle: Garrett Perez MD Albumin [Mass/Vol] 4.4 g/dL Normal 3.5-5.2 [facility] Comment on above: Performed By: #### C MICHAEL BARR CP, HCG #### [address] [place] [address] Dispatcher Motor Vehicle: Garrett Perez MD Albumin/Glob Ratio 1.3 Normal 1.0-2.5 [facility] Comment on above: Performed By: #### C MICHAEL BARR CP, HCG #### [facility] [address] [place] [address] Dispatcher Motor Vehicle: Garrett Perez MD Alkaline Phos 82 U/L Normal 35-104 [facility] Comment on above: Performed By: #### C MICHAEL BARR CP, HCG #### [facility] [address] [place] [address] Dispatcher Motor Vehicle: Garrett Perez MD ALT [Catalytic activity/Vol] 40 U/L High 5-33 [facility] Comment on above: Performed By: #### C MICHAEL BARR CP, HCG #### [facility] [address] [place], [place] 915[address]83 Dispatcher Motor Vehicle: Garrett Perez MD Anion gap [Moles/Vol] 13 mmol/L Normal 9-17 [facility] Comment on above: Performed By: #### C DP, SALI, CP, HCG #### [facility] [address] [place] [address] Dispatcher Motor Vehicle: Garrett Perez MD AST [Catalytic activity/Vol] 26 U/L Normal <32 [facility] Comment on above: Performed By: #### C DP, SALI, CP, HCG #### [address] [place] 5577183 Dispatcher Motor Vehicle: Garrett Perez MD Bilirubin [Mass/Vol] 0.39 mg/dL Normal 0.3-1.2 [facility] Comment on above: Performed By: #### C DP, SALI, CP, HCG #### [address] [place], [place] 3356583 Dispatcher Motor Vehicle: Garrett Perez MD BUN/CRE Ratio 12 Normal 9-20 [facility] Comment on above: Performed By: #### C DP, SALI, CP, HCG #### [address] [place], [place] 165[address]83 Dispatcher Motor Vehicle: Garrett Perez MD Calcium [Mass/Vol] 9.9 mg/dL Normal 8.6-10.4 [facility] Comment on above: Performed By: #### C DP, SALI, CP, HCG #### [address] [place], [place] 4932083 Dispatcher Motor Vehicle: Garrett Perez MD Chloride [Moles/Vol] 99 mmol/L Normal 98-107 [facility] Comment on above: Performed By: #### C DP, SALI, CP, HCG #### [address] [place], [place] 7155183 Dispatcher Motor Vehicle: Garrett Perez MD CO2 [Moles/Vol] 25 mmol/L Normal 20-31 [facility] Comment on above: Performed By: #### C DP, SALI, CP, HCG #### [facility] [address] [place], [place] 3100183 Dispatcher Motor Vehicle: Garrett Perez MD Creatinine [Mass/Vol] 0.81 mg/dL Normal 0.50-0.90 [facility] Comment on above: Performed By: #### C DP, SALI, CP, HCG #### [facility] [address] [place], [place] 4987883 Dispatcher Motor Vehicle: Garrett Perez MD GFR, Amer >60 Normal >60 [facility] Comment on above: Performed By: #### C DP, SALI, CP, HCG #### [facility] [address] [place] [address] Dr. [place], [place] 4086083 Dispatcher Motor Vehicle: Garrett Perez MD GFR,non Amer >60 Normal >60 [facility] Comment on above: Performed By: #### C DP, SALI, CP, HCG #### [facility] [address] [place] [address] Dr. [place], [place] 0053983 Dispatcher Motor Vehicle: Garrett Perez MD Glucose [Mass/Vol] 86 mg/dL Normal 70-99 [facility] Comment on above: Performed By: #### C DP, SALI, CP, HCG #### [facility] [address] [place], [place] 833[address]83 Dispatcher Motor Vehicle: Garrett Perez MD Potassium [Moles/Vol] 3.7 mmol/L Normal 3.7-5.3 [facility] Comment on above: Performed By: #### C DP, SALI, CP, HCG #### [facility] [address] [place], [place] 6753283 Dispatcher Motor Vehicle: Garrett Perez MD Protein [Mass/Vol] 7.8 g/dL Normal 6.4-8.3 [facility] Comment on above: Performed By: #### C DP, MICHAEL, CP, HCG #### [facility] [address] [place] [address] Dispatcher Motor Vehicle: Garrett Perez MD Sodium [Moles/Vol] 137 mmol/L Normal 135-144 [facility] Comment on above: Performed By: #### C DP, SALI, CP, HCG #### [facility] [address] [place] [address] Dispatcher Motor Vehicle: Garrett Perez MD Staging: Normal [facility] Comment on above: Result Comment: Stag e 1: Some kidney damage normal GFR Stage 2: Mild kidney damage GFR 60-89 Stage 3: Moderate kidney damage GFR 30-59 Stage 4: Severe kidney damage GFR 15-29 Stage 5: Severe kidney damage GFR <15 ESRD - chronic treatment by dialysis or transplant Performed By: #### C DP, MICHAEL, CP, HCG #### [facility] [address] [place] [address] Dispatcher Motor Vehicle: Garrett Perez MD Urea nitrogen [Mass/Vol] 10 mg/dL Normal 6-20 [facility] Comment on above: Performed By: #### C DP, SALI, CP, HCG #### [facility] [address] [place] [address] Dispatcher Motor Vehicle: Garrett Perez MD Comprehensive Metabolic Pane lOrdered By: Blanco Montalvo on 05-15-2021 Albumin [Mass/Vol] 4.4 g/dL 3.5 - 5.2 g/dL [facility] Work Phone: Albumin/Globulin [Mass ratio] 1.3 {ratio} [facility] Phone: ALP (Bld) [Catalytic activity/Vol] 82 U/L 35 - 104 U/L [facility] Phone: ALT [Catalytic activity/Vol] 40 U/L High 5 - 33 U/L [employer] Phone: Anion gap [Moles/Vol] 13 mmol/L 9 - 17 mmol/L [employer] Phone: AST [Catalytic activity/Vol] 26 U/L <32 [employer] Phone: Bilirubin [Mass/Vol] 0.39 mg/dL 0.3 - 1 .2 mg/dL [employer] Phone: Calcium [Mass/Vol] 9.9 mg/dL 8.6 - 10. 4 mg/dL [employer] Phone: Chloride [Moles/Vol] 99 mmol/L 98 - 10 7 mmol/L [employer] Phone: CO2 [Moles/Vol] 25 mmol/L 20 - 31 mmol/L [employer] Phone: Creatinine [Mass/Vol] 0.81 mg/dL 0.50 - 0.90 mg/dL [employer] Phone: Free PSA/Total PSA [Mass fraction] 7.8 g/dL 6.4 - 8.3 g/dL [employer] Phone: GFR >60 >60 mL/min [employer] Phone: GFR Non- >60 >60 mL/min [employer] [facility] Phone: Glucose [Mass/Vol] 86 mg/dL 70 - 99 mg/dL [employer] Phone: Potassium [Moles/Vol] 3.7 mmol/L 3.7 - 5.3 mmol/L [employer] Phone: Sodium [Moles/Vol] 137 mmol/L 135 - 144 mmol/L [employer] Phone: Urea nitrogen (BldV) [Mass/Vol] 10 mg/dL 6 - 20 mg/dL [employer] Phone: Urea nitrogen/Creatinine (Bld) [Mass ratio] 12 [facility] Work Phone: Drug Scr, Abuse, Uron 2020 Amphetamine(s),Ur Negative Normal [facility] Comment on above: Performed By: #### C OVRB #### [facility] [address] [place], [place] 1914783 Dispatcher Motor Vehicle: Garrett Perez MD Barbiturate(s),Ur Negative Normal NEG [facility] Comment on above: Performed By: #### C OVRB #### [facility] [address] [place] [address] Dispatcher Motor Vehicle: Garrett Perez MD Benzodiazepine(s) Negative Normal NEG [facility] Comment on above: Performed By: #### C OVRB #### [facility] [address] [place], [place] 9250583 Dispatcher Motor Vehicle: Garrett Perez MD Buprenorphrine, Ur Negative Normal [facility] Comment on above: Performed By: #### C OVRB #### [facility] [address] [place] [address] Dispatcher Motor Vehicle: Garrett Perez MD Cannabinoid(s),Ur Positive Abnormal NEG [facility] Comment on above: Performed By: #### C OVRB #### [facility] [address] [place] [address] Dispatcher Motor Vehicle: Garrett Perez MD Cocaine Metabolite Negative Normal [facility] Comment on above: Performed By: #### C OVRB #### [facility] [address] [place], [place] 6556383 Dispatcher Motor Vehicle: Garrett Perez MD Methadone Ql (U) Negative Normal [facility] Comment on above: Performed By: #### C OVRB #### [facility] [address] [place], [place] 575[address]83 Dispatcher Motor Vehicle: Garrett Perez MD Methamphetamine, Ur Negative Normal NEG [facility] Comment on above: Performed By: #### C OVRB #### [facility] [address] [place], [place] 5524683 Dispatcher Motor Vehicle: Garrett Perez MD Opiate(s), Ur Negative Normal NEG [facility] Comment on above: Performed By: #### C OVRB #### [facility] [address] [place], [place] 958[address]83 Dispatcher Motor Vehicle: Garrett Perez MD Oxycodone, Urine Negative Normal NEG [facility] Comment on above: Performed By: #### C OVRB #### [facility] [address] [place] [address] Dr. [place], [place] 6474983 Dispatcher Motor Vehicle: Garrett Perez MD Phencyclidine, Ur Negative Normal [facility] Comment on above: Performed By: #### C OVRB #### [facility] [address] [place] [address] Dispatcher Motor Vehicle: Garrett Perez MD Propoxyphene,Urine Negative Normal NEG [facility] Comment on above: Performed By: #### C OVRB #### [facility] [address] [place] [address] Dr. [place], [place] 8821183 Dispatcher Motor Vehicle: Garrett Perez MD Tricyclic antidepressants Screen Ql (U) Negative [facility] Comment on above: Result Comment: Drug screen results are to be used for medical purposes only. All positive results are unconfirmed. Testing for employment or legal uses should be sent to a reference laboratory for confirmation. Performed By: #### C OVRB #### [facility] [address] [place], [place] 607[address]83 Dispatcher Motor Vehicle: Garrett Perez MD Interpretive Info NOT REPORTED Normal [facility] Comment on above: Performed By: #### C OVRB #### [facility] [address] [place], [place] 5924783 Dispatcher Motor Vehicle: Garrett Perez MD MDMA, Urine NOT REPORTED Normal NEG [facility] Comment on above: Performed By: #### C OVRB #### [facility] [address] [place] [address] Dispatcher Motor Vehicle: Garrett Perez MD EthanolOrdered By: Blanco banks on 05-15-2021 Ethanol [Mass/Vol] mg/dL <10 mg/dL [facility] Phone: Ethanol percent <0.010 <0.010 % [facility] Phone: [facility] Phone: Ethanol Alcoholon 05-15-2021 Ethanol [Mass/Vol] mg/dL Normal <10 [facility] Comment on above: Performed By: #### D AU #### [facility] [address] [place] [address] Dispatcher Motor Vehicle: Garrett Perez MD Ethanol percent <0.010 Normal <0.010 [facility] Comment on above: Performed By: #### D AU #### [facility] [address] [place] [address] Dispatcher Motor Vehicle: Garrett Perez MD HCG Qualitative, SerumOrdere d By: Blanco Montalvo on 05-15-2021 hCG Qual Negative NEGATIVE [facility] [employer] Phone: Comment on above: Specimens with hCG l evels near the threshold of the test (25 mIU/mL) may give a negative or indeterminate result. In such cases, another test should be performed with a new specimen in 48-72 hours. If early is suspected clinically in this setting, correlation with quantitative serum b-hCG level is suggested. [employer] has confirmed the use of plasma for this test. This has not been cleared or approved by the U.S. Food and Drug Administration. The FDA has determined that such clearance is not necessary. [employer] Phone: HCG Screen, Bloodon 05-15-20 HCG Screen, Blood Negative Normal NEG [facility] Comment on above: Result Comment: Spec imens with hCG levels near the threshold of the test (25 mIU/mL) may give a negative or indeterminate result. In such cases, another test should be performed with a new specimen in 48-72 hours. If early is suspected clinically in this setting, correlation with quantitative serum b-hCG level is suggested. [employer] has confirmed the use of plasma for this test. This has not been cleared or approved by the U.S. Food and Drug Administration. The FDA has determined that such clearance is not necessary. Performed By: #### C DP, SALI, CP, HCG #### [facility] [address] [place] [address] Dispatcher Motor Vehicle: Garrett Perez MD Laboratory - Chemistry and C hemistry - challengeOrdered By: Blanco Montalvo on 05-15-2021 GFR/1.73 sq M.predicted MDRD (S/P/Bld) [Vol rate/Area] [employer] Phone: Comment on above: Average GFR for 20-2 9 years old: 116 mL/min/1.73sq m Chronic Kidney Disease: <60 mL/min/1.73sq m Kidney failure: <15 mL/min/1.73sq m eGFR calculated using average adult body mass. Additional eGFR calculator available at: http://www.[employer]/multiple_crcl_2012.htm Stage 1: Some kidney damage normal GFR Stage 2: Mild kidney damage GFR 60-89 Stage 3: Moderate kidney damage GFR 30-59 Stage 4: Severe kidney damage GFR 15-29 Stage 5: Severe kidney damage GFR <15 ESRD - chronic treatment by dialysis or transplant Microscopic UrinalysisOrdere d By: Blanco Montalvo on 05-15-2021 - [employer] Phone: Amorphous, UA NOT REPORTED None [email or web address] Work Phone: Bacteria, UA TRACE Abnormal None [employer] Phone: Casts UA NOT REPORTED /LPF [email or web address] Work Phone: Crystals, UA NOT REPORTED None /HPF [employer] Phone: Epithelial Cells UA 2 TO 5 [facility] [employer] Phone: Interpretation and review of laboratory results Abnormal [facility] Phone: Mucus, UA TRACE Abnormal None [facility] [employer] Phone: Other Observations UA NOT REPORTED NOT REQ. [facility] [employer] Work Phone: RBC, UA 0 TO 2 [facility] [employer] Work Phone: Renal Epithelial, UA NOT REPORTED 0 /HPF [facility] [employer] Work Phone: Trichomonas, UA NOT REPORTED None [facility] [employer] Phone: WBC, UA 0 TO 2 [facility] [employer] Phone: Yeast, UA NOT REPORTED None [facility] [employer] Phone: [facility] [employer] Phone: No Panel InformationOrdered By: Blanco Montalvo on 05-15-2021 Interpretation and review of laboratory results Abnormal [facility] Phone: [facility] [employer] Phone: [id number] 05-15-2021 SARS-CoV-2 (COVID-19) RNA MORENA+probe Ql (Unsp spec) Not detected Normal [facility] Comment on above: Result Comment: Rapid NAAT: The specimen is NEGATIVE for SARS-CoV-2, the novel coronavirus associated with COVID-19. The ID NOW COVID-19 assay is designed to detect the virus that causes COVID-19 in patients with signs and symptoms of infection who are suspected of COVID-19. An individual without symptoms of COVID-19 and who is not shedding SARS-CoV-2 virus would expect to have a negative (not detected) result in this assay. Negative results should be treated as presumptive and, if inconsistent with clinical signs and symptoms or necessary for patient management, should be tested with an alternative molecular assay. Negative results do not preclude SARS-CoV-2 infection and should not be used as the sole basis for patient management decisions. Fact sheet for Healthcare Providers: https://www.fda.gov/media/212428/download Fact sheet for Patients: https://www.fda.gov/media/173994/download Methodology: Isothermal Nucleic Acid Amplification Performed By: #### C OVRB #### [facility] [address] [place] [address] Dispatcher Motor Vehicle: Garrett Perez MD Salicylateon 05-15-2021 Salicylate <1 Low 3-10 [facility] Comment on above: Performed By: #### C DP, SALI, CP, HCG #### [facility] [address] [place] [address] Dispatcher Motor Vehicle: Garrett Perez MD SalicylateOrdered By: Blanco hwang on 05-15-2021 Salicylate Lvl <1 Low 3 - 10 mg/dL [facility] Work Phone: UA w/Reflex Cultureon 2020 Bilirubin, SemiQt,Ur Negative Normal NEG [facility] Comment on above: Performed By: #### C OVRB #### [facility] [address] [place] [address] Dispatcher Motor Vehicle: Garrett Perez MD Blood, Urine Negative Normal NEG [facility] Comment on above: Performed By: #### C OVRB #### [facility] [address] [place] [address] Dispatcher Motor Vehicle: Garrett Perez MD Clarity (U) CLEAR Normal CLEAR [facility] Comment on above: Performed By: #### C OVRB #### [facility] [address] [place] [address] Dispatcher Motor Vehicle: Garrett Perez MD Color (U) YELLOW Normal YEL [facility] Comment on above: Performed By: #### C OVRB #### [facility] [address] [place] [address] Dispatcher Motor Vehicle: Garrett Perez MD Glucose Ql (U) Negative Normal NEG [facility] Comment on above: Performed By: #### C OVRB #### [facility] [address] [place] [address] Dr. [place], [place] [id number] Dispatcher Motor Vehicle: Garrett Perez MD Ketones Ql (U) Negative Normal NEG [facility] Comment on above: Performed By: #### C OVRB #### [facility] [address] [place] [address] Dr. [place], [place] 5043883 Dispatcher Motor Vehicle: Garrett Perez MD Leukocyte esterase Test strip Ql (U) Negative Normal NEG [facility] Comment on above: Performed By: #### C OVRB #### [address] [place], [place] 648[address]83 Dispatcher Motor Vehicle: Garrett Perez MD Nitrite,Ur Negative Normal NEG [facility] Comment on above: Performed By: #### C OVRB #### [facility] [address] [place] [address] Dr[place], [place] 1003683 Dispatcher Motor Vehicle: Garrett Perez MD PH,Ur 8.5 Normal 5.0-9.0 [facility] Comment on above: Performed By: #### C OVRB #### [address] [place], [place] 572[address]83 Dispatcher Motor Vehicle: Garrett Perez MD Protein Ql (U) Negative Normal [facility] Comment on above: Performed By: #### C OVRB #### [facility] [address] [place] [address] [place]. [place], [place] 6758483 Dispatcher Motor Vehicle: Garrett Perez MD Spec. [place],Ur 1.015 Normal 1.010-1.020 [facility] Comment on above: Performed By: #### C OVRB #### [address] [place] [address] Dispatcher Motor Vehicle: Garrett Perez MD Urobilinogen,Ur Normal Normal NORM [facility] Comment on above: Performed By: #### C OVRB #### [facility] [address] [place] [address] Dispatcher Motor Vehicle: Garrett Perez MD Comment NOT REPORTED Normal [facility] Comment on above: Performed By: #### C OVRB #### [facility] [address] [place] [address] Dispatcher Motor Vehicle: Garrett Perez MD Urinalysis Reflex to Culture Ordered By: Blanco Montalvo on 05-15-2021 Bilirubin Urine Negative NEGATIVE [facility] [employer] Phone: Color, UA YELLOW YELLOW [facility] [employer] Work Phone: Glucose, Ur Negative NEGATIVE [facility] [employer] Phone: Ketones Ql (U) Negative NEGATIVE [facility] [employer] Phone: Leukocyte esterase Test strip Ql (U) Negative NEGATIVE [facility] [employer] Phone: Nitrite, Urine Negative NEGATIVE [facility] [employer] Phone: pH, UA 8.5 [facility] [employer] Work Phone: Protein, UA Negative NEGATIVE [facility] [employer] Phone: Specific [place], UA 1.015 [facility] [employer] Phone: Turbidity UA CLEAR CLEAR [facility] [employer] Phone: Urinalysis Comments NOT REPORTED [employer] Work Phone: Urine Hgb Negative NEGATIVE [facility] [employer] Phone: Urobilinogen, Urine Normal Normal [facility] [employer] Phone: [facility] [employer] Work Phone: Urinalysis,Microon 1 ----- Normal [facility] Comment on above: Performed By: #### C OVRB #### [facility] [address] [place] [address] Dispatcher Motor Vehicle: Garrett Perez MD Bacteria TRACE Abnormal [facility] Comment on above: Performed By: #### C OVRB #### [facility] [address] [place] [address] Dr. [place], [place] 1570483 Dispatcher Motor Vehicle: Garrett Perez MD Epithelial cells LM Ql (Urine sed) 2 TO 5 Normal 0-25 [facility] Comment on above: Performed By: #### C OVRB #### [facility] [address] [place], [place] 9223683 Dispatcher Motor Vehicle: Garrett Perez MD Mucus Strands TRACE Abnormal [facility] Comment on above: Performed By: #### C OVRB #### [address] [place], [place] [id number] Dispatcher Motor Vehicle: Garrett Perez MD Urine RBC's 0 TO 2 Normal 0-2 [facility] Comment on above: Performed By: #### C OVRB #### [facility] [address] [place] [address] Dr. [place], [place] [id number] Dispatcher Motor Vehicle: Garrett Perez MD Urine WBC's 0 TO 2 Normal 0-5 [facility] Comment on above: Performed By: #### C OVRB #### [address] [place], [place] [id number] Dispatcher Motor Vehicle: Garrett Perez MD Amorphous sediment LM Ql (Urine sed) NOT REPORTED Normal [facility] Comment on above: Performed By: #### C OVRB #### [facility] [address] [place] [address] Dr[place], [place] [id number] Dispatcher Motor Vehicle: Garrett Perez MD Casts NOT REPORTED Normal [facility] Comment on above: Performed By: #### C OVRB #### [facility] [address] [place] [address] Dr. [place], [place] [id number] Dispatcher Motor Vehicle: Garrett Perez MD Crystals LM Nom (Urine sed) NOT REPORTED Normal [facility] Comment on above: Performed By: #### C OVRB #### [facility] [address] [place] [address] Dispatcher Motor Vehicle: Garrett Perez MD Epithelial, Renal NOT REPORTED Normal 0 [facility] Comment on above: Performed By: #### C OVRB #### [facility] [address] [place], [place] [id number] Dispatcher Motor Vehicle: Garrett Perez MD Other Observations NOT REPORTED Normal NREQ [facility] Comment on above: Performed By: #### C OVRB #### [facility] [address] [place] [address] Dispatcher Motor Vehicle: Garrett Perez MD Trichomonas NOT REPORTED Normal NONE [facility] Comment on above: Performed By: #### C OVRB #### [facility] [address] [place], [place] [id number] Dispatcher Motor Vehicle: Garrett Perez MD Yeast NOT REPORTED Normal NONE [facility] Comment on above: Performed By: #### C OVRB #### [facility] [address] [place], [place] [id number] Dispatcher Motor Vehicle: Garrett Perez MD Urine Drug ScreenOrdered By: Blanco Montalvo on 05-15-2021 Amphetamine Screen, Ur Negative NEGATIVE [facility] [employer] Work Phone: Barbiturate Screen, Ur Negative NEGATIVE [facility] Work Phone: Benzodiazepine Screen, Urine Negative NEGATIVE [facility] Work Phone: Buprenorphine Urine Negative NEGATIVE [facility] Phone: Cannabinoid Scrn, Ur Positive Abnormal NEGATIVE [facility] [employer] Work Phone: Cocaine Metabolite, Urine Negative NEGATIVE [facility] Work Phone: Interpretation and review of laboratory results Abnormal [facility] [employer] Phone: MDMA, Urine NOT REPORTED NEGATIVE [facility] [employer] Phone: Methadone Screen, Urine Negative NEGATIVE [facility] [employer] Work Phone: Methamphetamine, Urine Negative NEGATIVE [facility] [employer] Work Phone: Opiates, Urine Negative NEGATIVE [facility] [employer] Work Phone: Oxycodone Screen, Ur Negative NEGATIVE [facility] [employer] Work Phone: Phencyclidine, Urine Negative NEGATIVE [facility] [employer] Work Phone: Propoxyphene, Urine Negative NEGATIVE [facility] [employer] Work Phone: Test Information NOT REPORTED [facility] [employer] Phone: Tricyclic Antidepressants, Urine Negative NEGATIVE [facility] [employer] Phone: Comment on above: Drug screen results are to be used for medical purposes only. All positive results are unconfirmed. Testing for employment or legal uses should be sent to a reference laboratory for confirmation. [facility] Phone: Laboratory - Microbiology an d Antimicrobial susceptibilityOrdered By: Denny Lomeli on 04-23-2021 SARS-CoV-2 (COVID-19) RNA MORENA+probe Ql (Resp) Not detected (Not Detected ) [facility] Work Phone: Comment on above: Note: This nucleic a lake amplification test was developed and itsperformance characteristics determined by [facility]. Nucleic acid amplification tests include RT-PCR and TMA. This test has not been FDA cleared orapproved. This test has been authorized by FDA under anEmergency Use Authorization (EUA). This test is onlyauthorized for the duration of time the declaration thatcircumstances exist justifying the authorization of theemergency use of in vitro diagnostic tests for detection [id number] virus and/or diagnosis of COVID-19 infectionunder section 564(b)(1) of the Act, 21 U.S.C. 360bbb-3(b)(1), unless the authorization is terminated or revokedsooner.When diagnostic testing is negative, the possibility of afalse negative result should be considered in the contextof a patient's recent exposures and the presence ofclinical signs and symptoms consistent with COVID-19. Anindividual without symptoms of COVID-19 and who is notshedding SARS-CoV-2 virus would expect to have a negative(not detected) result in this assay. SARS-CoV-2 (COVID-19) RNA MORENA+probe Ql (Unsp spec) Performed Health Replaced by [facility] Work Phone: Vitamin Don 04-14-2021 Vitamin D 14.7 ng/mL Low 30.0-100.0 [facility] Comment on above: Result Comment: (<20 ng/mL) Deficiency This assay accurately quantifies the sum of vitamin D3, 25-Hydroxy and vitamin D2, 25-Hyroxy. Performed By: #### V ITD #### [facility] [address] [place] [address] CBC With Platelet No Differe ntialon 04-11-2021 Erythrocyte distribution width (RBC) [Ratio] 13.6 % Normal 11.5-14.5 [facility] Comment on above: Performed By: #### C BCND #### [facility] [address] [place] [address] Hematocrit (Bld) [Volume fraction] 43.5 % Normal 37.0-47.0 [facility] Comment on above: Performed By: #### C BCND #### [facility] [address] [place] [address] Hemoglobin (Bld) [Mass/Vol] 14.6 g/dL Normal 12.0-16.0 [facility] Comment on above: Performed By: #### C BCND #### [facility] [address] [place] [address] MCH (RBC) [Entitic mass] 28.6 pg Normal 27.0-31.3 [facility] Comment on above: Performed By: #### C BCND #### [facility] [address] [place] [address] MCHC 33.5 % Normal 33.0-37.0 [facility] Comment on above: Performed By: #### C BCND #### [facility] [address] [place] [address] MCV (RBC) [Entitic vol] 85.4 fL Normal 82.0-100.[address] [facility] Comment on above: Performed By: #### C BCND #### [facility] [address] [place] [address] Platelets (Bld) [#/Vol] 284 10*3/uL Normal 130-400 [facility] Comment on above: Performed By: #### C BCND #### [facility] [address] [place] [address] RBC (Bld) [#/Vol] 5.10 10*6/uL Normal 4.20-5.40 [facility] Comment on above: Performed By: #### C BCND #### [facility] [address] [place] [address] WBC (Bld) [#/Vol] 11.1 10*3/uL Critically high 4.8-10.8 [facility] Comment on above: Performed By: #### C BCND #### [facility] [address] [place] [address] Folateon 04-11-2021 Folate 15.3 ng/mL Normal 7.3-26.1 [facility] Comment on above: Result Comment: As o f 16, the methodology has changed. Results from this methodology should not be compared with results from previous methodology. Performed By: #### F OLAT #### [facility] [address] [place] [address] Lipid Panelon 04-11-2021 Cholesterol [Mass/Vol] 127 mg/dL Normal 0-199 [facility] Comment on above: Result Comment: ATP III Cholesterol classification is Desirable. Performed By: #### L IPID #### [facility] [address] [place] [address] Cholesterol in HDL [Mass/Vol] 32 mg/dL Low 40-59 [facility] Comment on above: Result Comment: ATP III HDL Cholestrol Classification is low. Expected Values: Males: >55 = No Risk 35-55 = Moderate Risk <35 = High Risk Females: >65 = No Risk 45-65 = Moderate Risk <45 = High Risk NCEP Guidelines: Third Report February 2001 >59 = negative risk factor for CHD <40 = major risk factor for CHD Performed By: #### L IPID #### [facility] [address] [place] [address] Cholesterol in LDL [Mass/Vol] 75 mg/dL Normal 0-129 [facility] Comment on above: Result Comment: ATP III LDL Classification is Optimal. Performed By: #### L IPID #### [facility] [address] [place] [address] Triglyceride [Mass/Vol] 100 mg/dL Normal 0-[address] [facility] Comment on above: Result Comment: ATP III Triglycerides Classification is Normal. Performed By: #### L IPID #### [facility] [address] [place] [address] TSH w/out Reflexon TSH w/out Reflex 1.020 uIU/mL Normal 0.440-3.86 [facility] Comment on above: Performed By: #### T SH #### [facility] [address] [place] [address] Vitamin B12on 04-11-2021 Cobalamin (Vitamin B12) [Mass/Vol] 1050 pg/mL Normal 232-1245 [facility] Comment on above: Performed By: #### B 12 #### [facility] [address] [place] [address] EKG 12 LeadOrdered By: Freddie Hussein on 04-10-2021 Atrial Rate 75 BPM [employer] Phone: P Pharr 24 degrees [facility] Phone: P-R Interval 140 ms [employer] Phone: Q-T Interval 384 ms [employer] Phone: QRS Duration 90 ms [employer] Phone: QTc Calculation (Bazett) 414 ms [employer] Phone: R Pharr 29 degrees [employer] Phone: T Pharr 20 degrees [employer] Phone: Ventricular Rate 70 BPM [employer] Phone: Normal sinus rhythm with sinus arrhythmia Possible Anterior infarct , age undetermined Abnormal ECG No previous ECGs available Confirmed by FORREST MENDIOLA ([id number]) on 04/10/2021 12:40:27 AM [employer] Phone: Barron, Mhpn Incoming E kg Results From [employer] - 04/10/2021 12:40 AM EDT Normal sinus rhythm with sinus arrhythmia Possible Anterior infarct , age undetermined Abnormal ECG No previous ECGs available Confirmed by FORREST MENDIOLA ([id number]) on 04/10/2021 12:40:27 AM [employer] Phone: [employer] Phone: Acetaminophenon 04-09-2021 Acetaminophen [Mass/Vol] ug/mL Low 10-30 [facility] Comment on above: Performed By: #### A LCB, ACET #### [facility] [address] [place] [address] [place] [address] Dispatcher Motor Vehicle: Garrett Perez MD Acetaminophen LevelOrdered B y: Jm Hussein on 04-09-2021 Acetaminophen Level <5 Low 10 - 30 ug/mL [employer] Phone: Interpretation and review of laboratory results Abnormal [employer] Phone: [employer] Phone: CBC Auto DifferentialOrdered By: Jm Hussein on 04-09-2021 Absolute Eos # 0.07 [employer] Phone: Absolute Immature Granulocyte 0.03 [employer] Phone: Absolute Lymph # 2.20 [employer] Phone: Absolute [place] # 0.76 [employer] Phone: Basophils (Bld) [#/Vol] 0.05 10*3/uL [employer] Phone: Basophils/100 WBC (Bld) 0 % 0 - 2 % M [employer] Phone: Differential Type NOT REPORTED [employer] Phone: Eosinophils/100 WBC (Bld) 1 % 1 - 4 % [employer] Phone: Hematocrit (Bld) [Volume fraction] 45.2 % 36.3 - 47.1 % [employer] Phone: Hemoglobin.gastrointest inal spec 1 Ql (Stl) 15.0 g/dL 11.9 - 15.1 g/dL [employer] Phone: Immature granulocytes/100 WBC (Bld) 0 % 0 [employer] Phone: Interpretation and review of laboratory results Abnormal [employer] Phone: Lymphocytes/100 WBC (Bld) 18 % Low 24 - 43 % [employer] Phone: MCH (RBC) [Entitic mass] 28.6 pg 25.2 - 33.5 pg [employer] Phone: MCHC (RBC) [Mass/Vol] 33.2 g/dL 28.4 - 34.8 g/dL [employer] Phone: MCV (RBC) [Entitic vol] 86.3 fL 82.6 - 102.9 fL [employer] Phone: Monocytes/100 WBC (Bld) 6 % 3 - 12 % M [employer] Phone: NRBC Automated 0.0 0.0 per 100 WBC [employer] Phone: Platelet distribution width (Bld) [Ratio] 13.0 % 11.8 - 14.4 % [employer] Phone: Platelet Estimate NOT REPORTED [employer] Phone: Platelet mean volume (Bld) [Entitic vol] 9.1 fL 8.1 - 13.5 fL [employer] Phone: Platelets (Bld) [#/Vol] 296 10*3/uL [employer] Phone: RBC (Bld) [#/Vol] 5.24 10*6/uL High 3.95 - 5.1 1 m/uL [employer] Phone: RBC (Bld) [#/Vol] NOT REPORTED [employer] Phone: Segmented neutrophils/100 WBC (Bld) 75 % High 36 - 65 % [employer] Phone: Segs Absolute 9.07 High [employer] Phone: WBC (Bld) [#/Vol] 12.2 10*3/uL High [employer] Phone: WBC (Bld) [#/Vol] NOT REPORTED [employer] Phone: [employer] Phone: CBC with Diffon 04-09-2021 Abs. Basophil 0.05 k/uL Normal 0.00-0.20 [facility] Comment on above: Performed By: #### C OVRB #### [facility] [address] [place] [address] Dispatcher Motor Vehicle: Garrett Perez MD Abs.Imm.Granulocyte 0.03 k/uL Normal 0.00-0.30 [facility] Comment on above: Performed By: #### C OVRB #### [facility] [address] [place], [place] 0458483 Dispatcher Motor Vehicle: Garrett Perez MD Abs.Neutrophil (Seg) 9.07 k/uL High 1.50-8.10 [facility] Comment on above: Performed By: #### C OVRB #### [facility] [address] [place] [address] Dr. [place] [id number] Dispatcher Motor Vehicle: Garrett Perez MD Basophils/100 WBC (Bld) 0 % Normal 0-2 [facility] Comment on above: Performed By: #### C OVRB #### [facility] [address] [place] [address] Dr. [place] 2286183 Dispatcher Motor Vehicle: Garrett Perez MD Eosinophils (Bld) [#/Vol] 0.07 10*3/uL Normal 0.00-0.44 [facility] Comment on above: Performed By: #### C OVRB #### [address] [place] [facility]83 Dispatcher Motor Vehicle: Garrett Perez MD Eosinophils/100 WBC (Bld) 1 % Normal 1-4 [facility] Comment on above: Performed By: #### C OVRB #### [address] [place], [place] 1194083 Dispatcher Motor Vehicle: Garrett Perez MD Erythrocyte distribution width (RBC) [Ratio] 13.0 % Normal 11.8-14.4 [facility] Comment on above: Performed By: #### C OVRB #### [address] [place] [id number] Dispatcher Motor Vehicle: Garrett Perez MD Hematocrit (Bld) [Volume fraction] 45.2 % Normal 36.3-47.1 [facility] Comment on above: Performed By: #### C OVRB #### [address] [place], [place] 0325183 Dispatcher Motor Vehicle: Garrett Perez MD Hemoglobin (Bld) [Mass/Vol] 15.0 g/dL Normal 11.9-15.1 [facility] Comment on above: Performed By: #### C OVRB #### [facility] [address] [place], [place] 9504383 Dispatcher Motor Vehicle: Garrett Perez MD Immature granulocytes/100 WBC (Bld) 0 % Normal 0 [facility] Comment on above: Performed By: #### C OVRB #### [facility] [address] [place], [facility]83 Dispatcher Motor Vehicle: Garrett Perez MD Lymphocytes (Bld) [#/Vol] 2.20 10*3/uL Normal 1.10-3.70 [facility] Comment on above: Performed By: #### C OVRB #### [address] [place], [place] 1936783 Dispatcher Motor Vehicle: Garrett Perez MD Lymphocytes/100 WBC (Bld) 18 % Low 24-43 [facility] Comment on above: Performed By: #### C OVRB #### [address] [place], [place] 4231283 Dispatcher Motor Vehicle: Garrett Perez MD MCH (RBC) [Entitic mass] 28.6 pg Normal 25.2-33.5 [facility] Comment on above: Performed By: #### C OVRB #### [address] [place], [facility]83 Dispatcher Motor Vehicle: Garrett Perez MD MCHC (RBC) [Mass/Vol] 33.2 g/dL Normal 28.4-34.8 [facility] Comment on above: Performed By: #### C OVRB #### [address] [place] [address] Dispatcher Motor Vehicle: Garrett Perez MD MCV (RBC) [Entitic vol] 86.3 fL Normal 82.6-102.9 M [facility] Comment on above: Performed By: #### C OVRB #### [facility] [address] [place] [address] Dispatcher Motor Vehicle: Garrett Perez MD Monocytes (Bld) [#/Vol] 0.76 10*3/uL Normal 0.10-1.20 [facility] Comment on above: Performed By: #### C OVRB #### [facility] [address] [place], [place] 0062783 Dispatcher Motor Vehicle: Garrett Perez MD Monocytes/100 WBC (Bld) 6 % Normal 3-12 M [facility] Comment on above: Performed By: #### C OVRB #### [facility] [address] [place], [place] 4674583 Dispatcher Motor Vehicle: Garrett Perez MD Neutrophil (Seg) 75 % High 36-65 [facility] Comment on above: Performed By: #### C OVRB #### [facility] [address] [place], [place] 7228083 Dispatcher Motor Vehicle: Garrett Perez MD NRBC Automated 0.0 per 100 WBC Normal 0.0 [facility] Comment on above: Performed By: #### C OVRB #### [address] [place], [place] 2142683 Dispatcher Motor Vehicle: Garrett Perez MD Platelet mean volume (Bld) [Entitic vol] 9.1 fL Normal 8.1-13.5 [facility] Comment on above: Performed By: #### C OVRB #### [facility] [address] [place], [place] 3084183 Dispatcher Motor Vehicle: Garrett Perez MD Platelets (Bld) [#/Vol] 296 10*3/uL Normal 138-453 [facility] Comment on above: Performed By: #### C OVRB #### [facility] [address] [place], [place] 6666583 Dispatcher Motor Vehicle: Garrett Perez MD RBC (Bld) [#/Vol] 5.24 10*6/uL High 3.95-5.11 [facility] Comment on above: Performed By: #### C OVRB #### [facility] [address] [place] [address] Dispatcher Motor Vehicle: Garrett Perez MD WBC (Bld) [#/Vol] 12.2 10*3/uL High 3.5-11.3 [facility] Comment on above: Performed By: #### C OVRB #### [facility] [address] [place] [address] Dispatcher Motor Vehicle: Garrett Perez MD Auto Diff Performed NOT REPORTED Normal [facility] Comment on above: Performed By: #### C OVRB #### [address] [place] [address] Dispatcher Motor Vehicle: Garrett Perez MD Platelet Estimate NOT REPORTED Normal [facility] Comment on above: Performed By: #### C OVRB #### [facility] [address] [place] [address] [place] [address] Dispatcher Motor Vehicle: Garrett Perez MD RBC morphology finding Nom (Bld) NOT REPORTED Normal [facility] Comment on above: Performed By: #### C OVRB #### [address] [place] [address] Dispatcher Motor Vehicle: Garrett Perez MD WBC Morphology NOT REPORTED Normal [facility] Comment on above: Performed By: #### C OVRB #### [facility] [address] [place] [address] [place] [address] Dispatcher Motor Vehicle: Garrett Perez MD COVID-19, RapidOrdered By: Cody Hussein on 04-09-2021 SARS-CoV-2 (COVID-19) RNA MORENA+probe Ql (Unsp spec) Not detected Not Detected [facility] Work Phone: Comment on above: Rapid NAAT: The specimen is NEGATIVE for SARS-CoV-2, the novel coronavirus associated with COVID-19. The ID NOW COVID-19 assay is designed to detect the virus that causes COVID-19 in patients with signs and symptoms of infection who are suspected of COVID-19. An individual without symptoms of COVID-19 and who is not shedding SARS-CoV-2 virus would expect to have a negative (not detected) result in this assay. Negative results should be treated as presumptive and, if inconsistent with clinical signs and symptoms or necessary for patient management, should be tested with an alternative molecular assay. Negative results do not preclude SARS-CoV-2 infection and should not be used as the sole basis for patient management decisions. Fact sheet for Healthcare Providers: https://www.fda.gov/media/561291/download Fact sheet for Patients: https://www.fda.gov/media/645251/download Methodology: Isothermal Nucleic Acid Amplification Specimen Description .NASOPHARYNGEAL SWAB [facility] [employer] Phone: [facility] [employer] Phone: Comp Metabolic Profon 2020 (cont.) Normal [facility] Comment on above: Result Comment: Aver age GFR for 20-29 years old: 116 mL/min/1.73sq m Chronic Kidney Disease: <60 mL/min/1.73sq m Kidney failure: <15 mL/min/1.73sq m eGFR calculated using average adult body mass. Additional eGFR calculator available at: http://www.[employer]/multiple_crcl_2012.htm Performed By: #### D AU #### [facility] [address] [place] [address] Dispatcher Motor Vehicle: Garrett Perez MD Albumin [Mass/Vol] 4.5 g/dL Normal 3.5-5.2 [facility] Comment on above: Performed By: #### D AU #### [facility] [address] [place] [address] Dispatcher Motor Vehicle: Garrett Perez MD Albumin/Glob Ratio 1.6 Normal 1.0-2.5 [facility] Comment on above: Performed By: #### D AU #### [facility] [address] [place], [place] 5359983 Dispatcher Motor Vehicle: Garrett Perez MD Alkaline Phos 72 U/L Normal 35-104 [facility] Comment on above: Performed By: #### D AU #### [facility] [address] [place], [place] 6693283 Dispatcher Motor Vehicle: Garrett Perez MD ALT [Catalytic activity/Vol] 71 U/L High 5-33 [facility] Comment on above: Performed By: #### D AU #### [facility] [address] [place], [place] 1267883 Dispatcher Motor Vehicle: Garrett Perez MD Anion gap [Moles/Vol] 10 mmol/L Normal 9-17 [facility] Comment on above: Performed By: #### D AU #### [facility] [address] [place], [place] 0004483 Dispatcher Motor Vehicle: Garrett Perez MD AST [Catalytic activity/Vol] 35 U/L High <32 [facility] Comment on above: Performed By: #### D AU #### [facility] [address] [place], [place] 7918383 Dispatcher Motor Vehicle: Garrett Perez MD Bilirubin [Mass/Vol] 0.34 mg/dL Normal 0.3-1.2 [facility] Comment on above: Performed By: #### D AU #### [facility] [address] [place], [place] 2622083 Dispatcher Motor Vehicle: Garrett Perez MD BUN/CRE Ratio 14 Normal 9-20 [facility] Comment on above: Performed By: #### D AU #### [facility] [address] [place], [place] 3502683 Dispatcher Motor Vehicle: Garrett Perez MD Calcium [Mass/Vol] 10.3 mg/dL Normal 8.6-10.4 [facility] Comment on above: Performed By: #### D AU #### [facility] [address] [place], [place] 6445783 Dispatcher Motor Vehicle: Garrett Perez MD Chloride [Moles/Vol] 103 mmol/L Normal 98-107 [facility] Comment on above: Performed By: #### D AU #### [facility] [address] [place], [place] 3124883 Dispatcher Motor Vehicle: Garrett Perez MD CO2 [Moles/Vol] 23 mmol/L Normal 20-31 [facility] Comment on above: Performed By: #### D AU #### [facility] [address] [place], [place] 4627883 Dispatcher Motor Vehicle: Garrett Perez MD Creatinine [Mass/Vol] 0.65 mg/dL Normal 0.50-0.90 [facility] Comment on above: Performed By: #### D AU #### [facility] [address] [place], [place] 6212783 Dispatcher Motor Vehicle: Garrett Perez MD GFR, Amer >60 Normal >60 [facility] Comment on above: Performed By: #### D AU #### [facility] [address] [place], [place] 0463683 Dispatcher Motor Vehicle: Garrett Perez MD GFR,non Amer >60 Normal >60 [facility] Comment on above: Performed By: #### D AU #### [facility] [address] [place], [place] 7489083 Dispatcher Motor Vehicle: Garrett Perez MD Glucose [Mass/Vol] 84 mg/dL Normal 70-99 [facility] [facility] Comment on above: Performed By: #### D AU #### [facility] [address] [place], [place] [id number] Dispatcher Motor Vehicle: Garrett Perez MD Potassium [Moles/Vol] 4.2 mmol/L Normal 3.7-5.3 [facility] Comment on above: Performed By: #### D AU #### [facility] [address] [place] [address] [place], [place] [id number] Dispatcher Motor Vehicle: Garrett Perez MD Protein [Mass/Vol] 7.4 g/dL Normal 6.4-8.3 [facility] Comment on above: Performed By: #### D AU #### [facility] [address] [place] [address] Dispatcher Motor Vehicle: Garrett Perez MD Sodium [Moles/Vol] 136 mmol/L Normal 135-144 [facility] Comment on above: Performed By: #### D AU #### [address] [place] [address] Dispatcher Motor Vehicle: Garrett Perez MD Staging: Normal [facility] Comment on above: Result Comment: Stag e 1: Some kidney damage normal GFR Stage 2: Mild kidney damage GFR 60-89 Stage 3: Moderate kidney damage GFR 30-59 Stage 4: Severe kidney damage GFR 15-29 Stage 5: Severe kidney damage GFR <15 ESRD - chronic treatment by dialysis or transplant Performed By: #### D AU #### [address] [place] [address] Dispatcher Motor Vehicle: Garrett Perez MD Urea nitrogen [Mass/Vol] 9 mg/dL Normal 6-20 [facility] Comment on above: Performed By: #### D AU #### [address] [place] [address] Dispatcher Motor Vehicle: Garrett Perez MD Comprehensive Metabolic Pane lOrdered By: Jm Hussein on 04-09-2021 Albumin [Mass/Vol] 4.5 g/dL 3.5 - 5.2 g/dL [facility] Work Phone: Albumin/Globulin [Mass ratio] 1.6 {ratio} [facility] [employer] Phone: ALP (Bld) [Catalytic activity/Vol] 72 U/L 35 - 104 U/L [facility] Work Phone: ALT [Catalytic activity/Vol] 71 U/L High 5 - 33 U/L [employer] Phone: Anion gap [Moles/Vol] 10 mmol/L 9 - 17 mmol/L [employer] Phone: AST [Catalytic activity/Vol] 35 U/L High <32 [employer] Phone: Bilirubin [Mass/Vol] 0.34 mg/dL 0.3 - 1 .2 mg/dL [employer] Phone: Calcium [Mass/Vol] 10.3 mg/dL 8.6 - 10. 4 mg/dL [employer] Phone: Chloride [Moles/Vol] 103 mmol/L 98 - 10 7 mmol/L [employer] Phone: CO2 [Moles/Vol] 23 mmol/L 20 - 31 mmol/L [employer] Phone: Creatinine [Mass/Vol] 0.65 mg/dL 0.50 - 0.90 mg/dL [employer] Phone: Free PSA/Total PSA [Mass fraction] 7.4 g/dL 6.4 - 8.3 g/dL [employer] Phone: GFR >60 >60 mL/min [employer] Phone: GFR Non- >60 >60 mL/min [employer] Phone: Glucose [Mass/Vol] 84 mg/dL 70 - 99 mg/dL [employer] Phone: Potassium [Moles/Vol] 4.2 mmol/L 3.7 - 5.3 mmol/L [employer] Phone: Sodium [Moles/Vol] 136 mmol/L 135 - 144 mmol/L [employer] Phone: Urea nitrogen (BldV) [Mass/Vol] 9 mg/dL 6 - 20 mg/dL [facility] Work Phone: Urea nitrogen/Creatinine (Bld) [Mass ratio] 14 [facility] [employer] Phone: Drug Scr, Abuse, Uron 2020 Amphetamine(s),Ur Negative Normal NEG [facility] Comment on above: Performed By: #### C OVRB #### [facility] [address] [place] [address] [place] [address] Dispatcher Motor Vehicle: Garrett Perez MD Barbiturate(s),Ur Negative Normal [facility] Comment on above: Performed By: #### C OVRB #### [address] [place], [place] [id number] Dispatcher Motor Vehicle: Garrett Perez MD Benzodiazepine(s) Negative Normal NEG [facility] Comment on above: Performed By: #### C OVRB #### [address] [place], [place] [id number] Dispatcher Motor Vehicle: Garrett Perez MD Buprenorphrine, Ur Negative Normal [facility] Comment on above: Performed By: #### C OVRB #### [address] [place], [place] [id number] Dispatcher Motor Vehicle: Garrett Perez MD Cannabinoid(s),Ur Positive Abnormal NEG [facility] Comment on above: Performed By: #### C OVRB #### [facility] [address] [place] [address] [place] [address] Dispatcher Motor Vehicle: Garrett Perez MD Cocaine Metabolite Negative Normal [facility] Comment on above: Performed By: #### C OVRB #### [address] [place] [address] Dispatcher Motor Vehicle: Garrett Perez MD Methadone Ql (U) Negative Normal [facility] Comment on above: Performed By: #### C OVRB #### [facility] [address] [place] [address] [place], [place] [id number] Dispatcher Motor Vehicle: Garrett Perez MD Methamphetamine, Ur Negative Normal NEG [facility] Comment on above: Performed By: #### C OVRB #### [facility] [address] [place], [place] [id number] Dispatcher Motor Vehicle: Garrett Perez MD Opiate(s), Ur Negative Normal NEG [facility] Comment on above: Performed By: #### C OVRB #### [facility] [address] [place], [place] [id number] Dispatcher Motor Vehicle: Garrett Perez MD Oxycodone, Urine Negative Normal NEG [facility] Comment on above: Performed By: #### C OVRB #### [facility] [address] [place], [place] [id number] Dispatcher Motor Vehicle: Garrett Perez MD Phencyclidine, Ur Negative Normal NEG [facility] Comment on above: Performed By: #### C OVRB #### [facility] [address] [place], [place] [id number] Dispatcher Motor Vehicle: Garrett Perez MD Propoxyphene,Urine Negative Normal [facility] Comment on above: Performed By: #### C OVRB #### [facility] [address] [place], [place] [id number] Dispatcher Motor Vehicle: Garrett Perez MD Tricyclic antidepressants Screen Ql (U) Negative Normal [facility] Comment on above: Result Comment: Drug screen results are to be used for medical purposes only. All positive results are unconfirmed. Testing for employment or legal uses should be sent to a reference laboratory for confirmation. Performed By: #### C OVRB #### [facility] [address] [place] [address] Dispatcher Motor Vehicle: Garrett Perez MD Interpretive Info NOT REPORTED [facility] Comment on above: Performed By: #### C OVRB #### [facility] [address] [place] [address] Dispatcher Motor Vehicle: Garrett Perez MD Drug Scr, Abuse, UrOrdered B y: Jm Hussein on 04-09-2021 MDMA, Urine NOT REPORTED Normal NEG [employer] Phone: Comment on above: Performed By: #### C OVRB #### [address] [place] [address] Dispatcher Motor Vehicle: Garrett Perez MD EthanolOrdered By: Jm chauhan on 04-09-2021 Ethanol [Mass/Vol] mg/dL <10 mg/dL [facility] Phone: Ethanol percent <0.010 <0.010 % [employer] Phone: [employer] Phone: Ethanol Alcoholon 04-09-2021 Ethanol [Mass/Vol] mg/dL Normal <10 [facility] Comment on above: Performed By: #### A LCB, ACET #### [address] [place] [address] Dispatcher Motor Vehicle: Garrett Perez MD Ethanol percent <0.010 Normal <0.010 [facility] Comment on above: Performed By: #### A LCB, ACET #### [address] [place] [address] Dispatcher Motor Vehicle: Garrett Perez MD HCG Qualitative, SerumOrdere d By: Jm Srikanthjennifer on 04-09-2021 hCG Qual Negative NEGATIVE [facility] Phone: Comment on above: Specimens with hCG l evels near the threshold of the test (25 mIU/mL) may give a negative or indeterminate result. In such cases, another test should be performed with a new specimen in 48-72 hours. If early is suspected clinically in this setting, correlation with quantitative serum b-hCG level is suggested. [employer] has confirmed the use of plasma for this test. This has not been cleared or approved by the U.S. Food and Drug Administration. The FDA has determined that such clearance is not necessary. [employer] Phone: HCG Screen, Bloodon 04-09-20 21 HCG Screen, Blood Negative Normal NEG [facility] Comment on above: Result Comment: Spec imens with hCG levels near the threshold of the test (25 mIU/mL) may give a negative or indeterminate result. In such cases, another test should be performed with a new specimen in 48-72 hours. If early is suspected clinically in this setting, correlation with quantitative serum b-hCG level is suggested. [employer] has confirmed the use of plasma for this test. This has not been cleared or approved by the U.S. Food and Drug Administration. The FDA has determined that such clearance is not necessary. Performed By: #### D AU #### [facility] [address] [place] [address] [place] [address] Dispatcher Motor Vehicle: Garrett Perez MD Laboratory - Chemistry and C hemistry - challengeOrdered By: Jm Hussein on 04-09-2021 GFR/1.73 sq M.predicted MDRD (S/P/Bld) [Vol rate/Area] [employer] Phone: Comment on above: Average GFR for 20-2 9 years old: 116 mL/min/1.73sq m Chronic Kidney Disease: <60 mL/min/1.73sq m Kidney failure: <15 mL/min/1.73sq m eGFR calculated using average adult body mass. Additional eGFR calculator available at: http://www.Stylect.Frankly/multiple_crcl_2012.htm Stage 1: Some kidney damage normal GFR Stage 2: Mild kidney damage GFR 60-89 Stage 3: Moderate kidney damage GFR 30-59 Stage 4: Severe kidney damage GFR 15-29 Stage 5: Severe kidney damage GFR <15 ESRD - chronic treatment by dialysis or transplant No Panel InformationOrdered By: Jm Hussein on 04-09-2021 Interpretation and review of laboratory results Abnormal [employer] Phone: [employer] Phone: [id number] 04-09-2021 SARS-CoV-2 (COVID-19) RNA MORENA+probe Ql (Unsp spec) Not detected Normal NOTDET [facility] Comment on above: Result Comment: Rapid NAAT: The specimen is NEGATIVE for SARS-CoV-2, the novel coronavirus associated with COVID-19. The ID NOW COVID-19 assay is designed to detect the virus that causes COVID-19 in patients with signs and symptoms of infection who are suspected of COVID-19. An individual without symptoms of COVID-19 and who is not shedding SARS-CoV-2 virus would expect to have a negative (not detected) result in this assay. Negative results should be treated as presumptive and, if inconsistent with clinical signs and symptoms or necessary for patient management, should be tested with an alternative molecular assay. Negative results do not preclude SARS-CoV-2 infection and should not be used as the sole basis for patient management decisions. Fact sheet for Healthcare Providers: https://www.fda.gov/media/379494/download Fact sheet for Patients: https://www.fda.gov/media/614620/download Methodology: Isothermal Nucleic Acid Amplification Performed By: #### C OVRB #### [facility] [address] [place] [address] Dispatcher Motor Vehicle: Garrett Perez MD SPECIMEN REJECTIONOrdered By : Jm Hussein on 04-09-2021 - NOT REPORTED [facility] Phone: Ordered Test CDP [employer] Phone: Reason for Rejection Unable to perform testing: No specimen received. [employer] Phone: Specimen source Nom (Unsp spec) .BLOOD [employer] Phone: [facility] Phone: Salicylateon 04-09-2021 Salicylate <1 Low 3-10 [facility] Comment on above: Performed By: #### D AU #### [facility] [address] [place] [address] Dispatcher Motor Vehicle: Garrett Perez MD SalicylateOrdered By: Jm Hussein on 04-09-2021 Salicylate Lvl <1 Low 3 - 10 mg/dL [facility] Work Phone: Specimen Rejectionon 021 Reason for rejection Unable to perform testing: No specimen received. Normal [facility] Comment on above: Performed By: #### C OVRB #### [facility] [address] [place], [place] 0786583 Dispatcher Motor Vehicle: Garrett Perez MD Source of sample .BLOOD Normal [facility] Comment on above: Performed By: #### C OVRB #### [facility] [address] [place], [place] [id number] Dispatcher Motor Vehicle: Garrett Perez MD Test ordered CDP Normal [facility] Comment on above: Performed By: #### C OVRB #### [facility] [address] [place], [place] [id number] Dispatcher Motor Vehicle: Garrett Perez MD ----- NOT REPORTED Normal [facility] Comment on above: Performed By: #### C OVRB #### [facility] [address] [place], [place] [phone] Dispatcher Motor Vehicle: Garrett Perez MD Urinalysis w/ Microon 2020 ----- Normal [facility] Comment on above: Performed By: #### C OVRB #### [facility] [address] [place], [place] 0416383 Dispatcher Motor Vehicle: Garrett Perez MD Bacteria 1+ Abnormal NONE [facility] Comment on above: Performed By: #### C OVRB #### [facility] [address] [place] [address] Dispatcher Motor Vehicle: Garrett Perez MD Bilirubin, SemiQt,Ur Negative Normal NEG [facility] Comment on above: Performed By: #### C OVRB #### [facility] [address] [place], [place] [phone] Dispatcher Motor Vehicle: Garrett Perez MD Blood, Urine Negative Normal NEG [facility] Comment on above: Performed By: #### C OVRB #### [facility] [address] [place], [place] 8280083 Dispatcher Motor Vehicle: Garrett Perez MD Clarity (U) CLEAR Normal CLEAR [facility] Comment on above: Performed By: #### C OVRB #### [facility] [address] [place], [place] 5382883 Dispatcher Motor Vehicle: Garrett Perez MD Color (U) YELLOW Normal YEL [facility] Comment on above: Performed By: #### C OVRB #### [facility] [address] [place], [place] 8010683 Dispatcher Motor Vehicle: Garrett Perez MD Epithelial cells LM Ql (Urine sed) 5 TO 10 Normal 0-25 [facility] Comment on above: Performed By: #### C OVRB #### [facility] [address] [place], [place] 9369583 Dispatcher Motor Vehicle: Garrett Perez MD Glucose Ql (U) Negative Normal NEG [facility] Comment on above: Performed By: #### C OVRB #### [facility] [address] [place], [place] 8931583 Dispatcher Motor Vehicle: Garrett Perez MD Ketones Ql (U) Negative Normal NEG [facility] Comment on above: Performed By: #### C OVRB #### [facility] [address] [place], [place] 8475683 Dispatcher Motor Vehicle: Garrett Perez MD Leukocyte esterase Test strip Ql (U) Negative Normal NEG [facility] Comment on above: Performed By: #### C OVRB #### [facility] [address] [place] [address] Dispatcher Motor Vehicle: Garrett Perez MD Nitrite,Ur Negative Normal NEG [facility] Comment on above: Performed By: #### C OVRB #### [facility] [address] [place], [place] 2382883 Dispatcher Motor Vehicle: Garrett Perez MD PH,Ur 5.5 Normal 5.0-9.0 [facility] Comment on above: Performed By: #### C OVRB #### [facility] [address] [place], [place] 7623383 Dispatcher Motor Vehicle: Garrett Perez MD Protein Ql (U) Negative Normal NEG [facility] Comment on above: Performed By: #### C OVRB #### [facility] [address] [place], [place] 4862283 Dispatcher Motor Vehicle: Garrett Perez MD Spec. [place],Ur 1.025 High 1.010-1.020 [facility] Comment on above: Performed By: #### C OVRB #### [facility] [address] [place], [place] 9584383 Dispatcher Motor Vehicle: Garrett Perez MD Urine RBC's None Normal 0-2 [facility] Comment on above: Performed By: #### C OVRB #### [facility] [address] [place], [place] 9446983 Dispatcher Motor Vehicle: Garrett Perez MD Urine WBC's 0 TO 2 Normal 0-5 [facility] Comment on above: Performed By: #### C OVRB #### [facility] [address] [place], [place] 3422383 Dispatcher Motor Vehicle: Garrett Perez MD Urobilinogen,Ur Normal Normal NORM [facility] Comment on above: Performed By: #### C OVRB #### [facility] [address] [place], [place] 3987883 Dispatcher Motor Vehicle: Garrett Perez MD Amorphous sediment LM Ql (Urine sed) NOT REPORTED Normal NONE [facility] Comment on above: Performed By: #### C OVRB #### [facility] [address] [place], [place] 6129183 Dispatcher Motor Vehicle: Garrett Perez MD Casts NOT REPORTED Normal [facility] Comment on above: Performed By: #### C OVRB #### [facility] [address] [place], [place] 3913683 Dispatcher Motor Vehicle: Garrett Perez MD Comment NOT REPORTED Normal [facility] Comment on above: Performed By: #### C OVRB #### [facility] [address] [place], [place] 4348283 Dispatcher Motor Vehicle: Garrett Perez MD Crystals LM Nom (Urine sed) NOT REPORTED Normal [facility] Comment on above: Performed By: #### C OVRB #### [facility] [address] [place], [place] 5170183 Dispatcher Motor Vehicle: Garrett Perez MD Epithelial, Renal NOT REPORTED Normal 0 [facility] Comment on above: Performed By: #### C OVRB #### [facility] [address] [place] [address] Dispatcher Motor Vehicle: Garrett Perez MD Mucus Strands NOT REPORTED Normal [facility] Comment on above: Performed By: #### C OVRB #### [facility] [address] [place], [place] 0836883 Dispatcher Motor Vehicle: Garrett Perez MD Other Observations NOT REPORTED Normal NREQ [facility] Comment on above: Performed By: #### C OVRB #### [facility] [address] [place], [place] 3683283 Dispatcher Motor Vehicle: Garrett Perez MD Trichomonas NOT REPORTED Normal [facility] Comment on above: Performed By: #### C OVRB #### [facility] [address] [place] [address] Dispatcher Motor Vehicle: Garrett Perez MD Yeast NOT REPORTED Normal NONE [facility] Comment on above: Performed By: #### C OVRB #### [facility] [address] [place] [address] Dispatcher Motor Vehicle: Garrett Perez MD Urinalysis with microscopicO rdered By: Kalyan Irizarry on 04-09-2021 - [email or web address] Work Phone: Amorphous, UA NOT REPORTED None [email or web address] Work Phone: Bacteria, UA 1+ Abnormal None [employer] Phone: Bilirubin Urine Negative NEGATIVE [employer] Phone: Casts UA NOT REPORTED /LPF [email or web address] Work Phone: Color, UA YELLOW YELLOW [email or web address] Work Phone: Crystals, UA NOT REPORTED None /HPF [email or web address] Work Phone: Epithelial Cells UA 5 TO 10 [email or web address] Work Phone: Glucose, Ur Negative NEGATIVE [email or web address] Work Phone: Interpretation and review of laboratory results Abnormal [email or web address] Work Phone: Ketones Ql (U) Negative NEGATIVE [employer] Phone: Leukocyte esterase Test strip Ql (U) Negative NEGATIVE [employer] Phone: Mucus, UA NOT REPORTED None [email or web address] Work Phone: Nitrite, Urine Negative NEGATIVE [employer] Phone: Other Observations UA NOT REPORTED NOT REQ. [facility] Work Phone: pH, UA 5.5 [facility] Work Phone: Protein, UA Negative NEGATIVE [employer] Phone: RBC, UA None [email or web address] Work Phone: Renal Epithelial, UA NOT REPORTED 0 /HPF [employer] Work Phone: Specific [place], UA 1.025 [facility] Work Phone: Trichomonas, UA NOT REPORTED None [facility] Work Phone: Turbidity UA CLEAR CLEAR [facility] Work Phone: Urinalysis Comments NOT REPORTED [facility] Work Phone: Urine Hgb Negative NEGATIVE [facility] Work Phone: Urobilinogen, Urine Normal Normal [facility] Work Phone: WBC, UA 0 TO 2 [facility] Work Phone: Yeast, UA NOT REPORTED None [facility] Work Phone: [facility] Work Phone: Urine Drug ScreenOrdered By: Jm Hussein on 04-09-2021 Amphetamine Screen, Ur Negative NEGATIVE [facility] Work Phone: Barbiturate Screen, Ur Negative NEGATIVE [facility] Work Phone: Benzodiazepine Screen, Urine Negative NEGATIVE [facility] Work Phone: Buprenorphine Urine Negative NEGATIVE [facility] Work Phone: Cannabinoid Scrn, Ur Positive Abnormal NEGATIVE [facility] Work Phone: Cocaine Metabolite, Urine Negative NEGATIVE [facility] Work Phone: Interpretation and review of laboratory results Abnormal [facility] Work Phone: Methadone Screen, Urine Negative NEGATIVE [facility] Work Phone: Methamphetamine, Urine Negative NEGATIVE [facility] Work Phone: Opiates, Urine Negative NEGATIVE [facility] Work Phone: Oxycodone Screen, Ur Negative NEGATIVE [facility] Work Phone: Phencyclidine, Urine Negative NEGATIVE [facility] Work Phone: Propoxyphene, Urine Negative NEGATIVE [facility] Work Phone: Test Information NOT REPORTED [employer] Phone: Tricyclic Antidepressants, Urine Negative NEGATIVE [employer] Phone: Comment on above: Drug screen results are to be used for medical purposes only. All positive results are unconfirmed. Testing for employment or legal uses should be sent to a reference laboratory for confirmation. [employer] Phone: COVID-19 PCRon 06-09-2020 SARS-CoV-2, MORENA Not Detected Normal Not Detected [facility] Comment on above: Result Comment: This test was developed and its performance characteristics determined by [facility]. This test has not been FDA cleared or approved. This test has been authorized by FDA under an Emergency Use Authorization (EUA). This test is only authorized for the duration of time the declaration that circumstances exist justifying the authorization of the emergency use of in vitro diagnostic tests for detection of SARS-CoV-2 virus and/or diagnosis of COVID-19 infection under section 564(b)(1) of the Act, 21 U.S.C. 360bbb-3(b)(1), unless the authorization is terminated or revoked sooner. When diagnostic testing is negative, the possibility of a false negative result should be considered in the context of a patient's recent exposures and the presence of clinical signs and symptoms consistent with COVID-19. An individual without symptoms of COVID-19 and who is not shedding SARS-CoV-2 virus would expect to have a negative (not detected) result in this assay. Performed By: #### C VDPCR #### [facility] [address] [place] [address] Cresencio Murphy CBC/PLATELET & AUTO DIFFEREN TIALon 06-12-2017 Basophils Auto #/vol (Bld) 0.0 10*3/uL Normal 0.0-0.[address] [facility] Basophils/100 WBC Auto (Bld) 0 % Normal 0-[address] [facility] CBC/PLATELET & AUTO DIFFERENTIAL 0.0 10*3/uL Normal - [facility] Comment on above: Result Comment: er 7 Eosinophils 0.0 10*3/uL Normal 0.0-0.[address] [facility] Eosinophils/100 leukocytes 0 % Normal 0-[address] [facility] Erythrocyte distribution width Auto Ratio (RBC) 12.9 % Normal 11.7-14.[address] [facility] Erythrocytes (RBC) 4.79 10*6/uL Normal 4.20-5.40 [facility] Hematocrit (HCT) 40.0 % Normal 37.0-47.[address] [facility] Hemoglobin mass conc (Bld) 14.0 g/dL Normal 11.5-16.[address] [facility] Lymphocytes 1.8 10*3/uL Normal 0.9-2.[address] [facility] Lymphocytes/100 leukocytes 10 % Low 13-[address] [facility] MCH 29.2 pg Normal 27.0-31.[address] [facility] MCHC mass conc (RBC) 35.0 g/dL Normal 31.5-36.0 [facility] MCV 83.5 fL Normal 82.0-101.[address] [facility] Monocytes 1.0 10*3/uL Normal 0.1-1.[address] [facility] Monocytes/100 leukocytes 6 % Normal 5-[address] [facility] Neutrophils 14.5 10*3/uL High 2.1-6.[address] [facility] Neutrophils/100 leukocytes 83 % High 39-[address] [facility] Nucleated erythrocytes 0 % Normal - [facility] Platelet mean volume (PMV) 8.5 fL Normal 8.2-11.[address] [facility] Platelets 239.0 10*3/uL Normal 130.0-400.[address] [facility] WBC (Leukocytes) 17.6 10*3/uL High 4.4-10.2 [facility] CHEST PORTABLEon 06-12-2017 CHEST PORTABLE EXAM: Portable chest.CLINICAL STATEMENT: Syncopal episode today.COMPARISON: 10/31/2016.TECHNIQUE: Single mobile AP upright view chest at 3:21 PM.FINDINGS: Heart size within normal limits. There is no mediastinal widening.The lung cummins and pleural spaces are clear.IMPRESSION:No acute change.Dictated Physician: Loki PiperDictated On: 06/12/2017 15:30Interpreted By: Loki PiperTranscribed By: Cheo Piperigned By: Loki PiperSigned On: 06/12/2017 15:[address] [facility] HCG URINEon 06-12-2017 HCG.beta subunit ( test) Ql (U) Negative Normal Negative [facility] HCG.beta subunit ( test) Ql (U) SEE NOTE Normal - [facility] Comment on above: Result Comment: er 7 M I PANELon 06-12-2017 Anion gap 12.8 mmol/L Normal - [facility] BUN/Creatinine Ratio 10.2 mg/mg Normal [facility] Calcium 8.8 mg/dL Normal 8.5-10.[address] [facility] Chloride 107 mmol/L Normal 98-[address] [facility] CO2 27.1 mmol/L Normal 21.0-32.[address] [facility] Creatinine 0.98 mg/dL Normal 0.55-1.[address] [facility] eGFR (non-black) mL/min/{1.73_m2} Normal >60 [facility] Glucose mass conc 87 mg/dL Normal 70-[address] [facility] M I PANEL SEE NOTE Normal - [facility] Comment on above: Result Comment: er 7 Magnesium 1.9 mg/dL Normal 1.8-2.[address] [facility] Osmolality 283 mosm/kg [facility] Potassium molar conc 3.9 mmol/L Normal 3.5-5.1 [facility] Sodium 143 mmol/L Normal 136-[address] [facility] Troponin I.cardiac mass conc ng/mL Normal 0.000-0.[address] [facility] Urea nitrogen 10 mg/dL Normal 7-[address] [facility] PT PROTIMEon 06-12-2017 INR Coag RelTime (PPP) 1.0 {INR} Normal - [facility] Prothrombin time (PT) Coag time (PPP) 10.5 s Normal 9.3-11.[address] [facility] PT PROTIME SEE NOTE Normal [facility] Comment on above: Result Comment: er 7 PTTon 06-12-2017 aPTT 24.8 s Normal 24.5-32.[address] [facility] Comment on above: Result Comment: er 7 URINALYSIS W/ MICROSCOPIC if indicatedon 06-12-2017 Bilirubin Ql (U) Negative Normal Negative [facility] Blood Moderate Abnormal Negative [facility] Blood product type Clean catch Normal - [facility] Glucose mass conc Normal Normal Normal [facility] Protein Moderate Abnormal Negative [facility] Sq. Epithelial Cells 3 /[HPF] Abnormal None seen [facility] URINALYSIS W/ MICROSCOPIC if indicated 0 /[HPF] Normal 0-[address] [facility] Comment on above: Result Comment: er 7 Urine, appearance CLEAR Normal Clear [facility] Urine, bacteria in sediment 1 /[HPF] Abnormal None seen [facility] Urine, color YELLOW Normal - [facility] Urine, ketones presence Negative Normal Negative [facility] Urine, nitrite presence Positive Abnormal Negative [facility] Urine, pH 7.0 [pH] Normal 5.0 - 9.[address] [facility] Urine, specific gravity 1.010 Normal 1.01 0 - 1.[address] [facility] Urine, urobilinogen Normal Normal Normal [facility] WBC (Leukocytes) 6 /[HPF] Abnormal 0-[address] [facility] WBC (Leukocytes) Moderate Abnormal Negative [facility] Vital Signs Date Time Vital Sign Value Performing Clinician Facility 07-18-2024 16:27-0400 Body height 162.56 cm Denny Armani RACKING TECHNICIAN Work Phone: [facility] Work Phone: 07-18-2024 16:27-0400 Body mass index (BMI) [Ratio] 57.2 kg/m2 Denny Armani CHAVEZ Work Phone: [facility] Work Phone: 07-18-2024 16:27-0400 Body surface area Derived from formula 2.4 m2 Denny Armani CHAVEZ Work Phone: [facility] Work Phone: 07-18-2024 16:27-0400 Body temperature 97.6 [degF] Denny Armani CHAVEZ Work Phone: [facility] Work Phone: 07-18-2024 16:27-0400 Body weight 151.05 kg Denny Lomeli RACKING TECHNICIAN Work Phone: [facility] Work Phone: 07-18-2024 16:27-0400 Diastolic blood pressure 86 mm[Hg] Denny Landonen RACKING TECHNICIAN Work Phone: [facility] Work Phone: 07-18-2024 16:27-0400 Heart rate 103 /min Denny Lomeli RACKING TECHNICIAN Work Phone: [facility] Work Phone: 07-18-2024 16:27-0400 Respiratory rate 18 /min Denny Lomeli RACKING TECHNICIAN Work Phone: [facility] Work Phone: 07-18-2024 16:27-0400 SaO2% (BldA) [Mass fraction] 95 % Denny Lomeli RACKING TECHNICIAN Work Phone: [facility] Work Phone: 07-18-2024 16:27-0400 Systolic blood pressure 135 mm[Hg] Denny Armani RACKING TECHNICIAN Work Phone: [facility] Work Phone: 06-13-2024 17:46-0400 Diastolic blood pressure 84 mm[Hg] Denny Armani RACKING TECHNICIAN Work Phone: [facility] Comment on above: manual large 06-13-2024 17:46-0400 Systolic blood pressure 144 mm[Hg] Denny Armani RACKING TECHNICIAN Work Phone: [facility] Comment on above: manual large 06-13-2024 17:21-0400 Diastolic blood pressure 86 mm[Hg] Denny Armani RACKING TECHNICIAN Work Phone: [facility] Work Phone: 06-13-2024 17:21-0400 Systolic blood pressure 154 mm[Hg] Denny Armani RACKING TECHNICIAN Work Phone: [facility] Work Phone: 06-13-2024 16:45-0400 Body height 162.56 cm Denny Lomeli CNP Work Phone: [facility] Work Phone: 06-13-2024 16:45-0400 Body mass index (BMI) [Ratio] 57.9 kg/m2 Denny Lomeli CNP Work Phone: [facility] Work Phone: 06-13-2024 16:45-0400 Body surface area Derived from formula 2.4 m2 Denny Lomeli CNP Work Phone: [facility] Work Phone: 06-13-2024 16:45-0400 Body weight 153.14 kg Denny Lomeli CNP Work Phone: [facility] Work Phone: 06-13-2024 16:45-0400 Diastolic blood pressure 98 mm[Hg] Denny Lomeli CNP Work Phone: [facility] Work Phone: 06-13-2024 16:45-0400 Heart rate 103 /min Denny Lomeli CNP Work Phone: [facility] Work Phone: 06-13-2024 16:45-0400 SaO2% (BldA) [Mass fraction] 96 % Denny Lomeli CNP Work Phone: [facility] Work Phone: 06-13-2024 16:45-0400 Systolic blood pressure 151 mm[Hg] Denny Lomeli CNP Work Phone: [facility] Work Phone: 04-10-2024 16:50-0400 Diastolic blood pressure 89 mm[Hg] Denny Lomeli CNP Work Phone: [facility] 04-10-2024 16:50-0400 Heart rate 75 /min Denny Lomeli RACKING TECHNICIAN Work Phone: [facility] 04-10-2024 16:50-0400 Systolic blood pressure 137 mm[Hg] Denny Lomeli RACKING TECHNICIAN Work Phone: [facility] 04-10-2024 16:39-0400 Body height 162.56 cm Denny Lomeli RACKING TECHNICIAN Work Phone: [facility] 04-10-2024 16:39-0400 Body mass index (BMI) [Ratio] 54.6 kg/m2 Denny Lomeli RACKING TECHNICIAN Work Phone: [facility] 04-10-2024 16:39-0400 Body surface area Derived from formula 2.4 m2 Denny Lomeli RACKING TECHNICIAN Work Phone: [facility] 04-10-2024 16:39-0400 Body weight 144.24 kg Denny Lomeli RACKING TECHNICIAN Work Phone: [facility] 04-10-2024 16:39-0400 Diastolic blood pressure 94 mm[Hg] Denny Lomeli RACKING TECHNICIAN Work Phone: [facility] 04-10-2024 16:39-0400 Heart rate 75 /min Denny Lomeli RACKING TECHNICIAN Work Phone: [facility] 04-10-2024 16:39-0400 SaO2% (BldA) [Mass fraction] 98 % Denny Lomeli RACKING TECHNICIAN Work Phone: [facility] 04-10-2024 16:39-0400 Systolic blood pressure 161 mm[Hg] Denny Lomeli RACKING TECHNICIAN Work Phone: [facility] 01-17-2024 19:09-0400 Body height 162.56 cm Denny Lomeli RACKING TECHNICIAN Work Phone: [facility] 01-17-2024 19:09-0400 Body mass index (BMI) [Ratio] 52.7 kg/m2 Dennyartem Landonen RACKING TECHNICIAN Work Phone: [facility] 01-17-2024 19:09-0400 Body surface area Derived from formula 2.3 m2 Denny Lomeli CNP Work Phone: [facility] 01-17-2024 19:09-0400 Body weight 139.26 kg Denny Lomeli RACKING TECHNICIAN Work Phone: [facility] 01-17-2024 19:09-0400 Diastolic blood pressure 88 mm[Hg] Denny Lomeli RACKING TECHNICIAN Work Phone: [facility] 01-17-2024 19:09-0400 Heart rate 106 /min Denny Lomeli RACKING TECHNICIAN Work Phone: [facility] 01-17-2024 19:09-0400 SaO2% (BldA) [Mass fraction] 97 % Denny Lomeli RACKING TECHNICIAN Work Phone: [facility] 01-17-2024 19:09-0400 Systolic blood pressure 134 mm[Hg] Denny Lomeli RACKING TECHNICIAN Work Phone: [facility] 06-14-2023 15:00-0400 Diastolic blood pressure 69 mm[Hg] Denny Lomeli RACKING TECHNICIAN Work Phone: [facility] 06-14-2023 15:00-0400 Systolic blood pressure 116 mm[Hg] Denny Lomeli RACKING TECHNICIAN Work Phone: [facility] 05-31-2023 15:52-0400 Diastolic blood pressure 78 mm[Hg] Denny Lomeli RACKING TECHNICIAN Work Phone: [facility] Work Phone: 05-31-2023 15:52-0400 Systolic blood pressure 137 mm[Hg] Denny Lomeli RACKING TECHNICIAN Work Phone: [facility] Work Phone: 05-10-2023 17:08-0400 Body height 162.56 cm Denny Lomeli RACKING TECHNICIAN Work Phone: [facility] Work Phone: 07-19-2023 17:08-0400 Body mass index (BMI) [Ratio] 32.8 kg/m2 Denny Lomeli CNP Work Phone: [facility] Work Phone: 05-10-2023 17:08-0400 Body surface area Derived from formula 1.9 m2 Denny Lomeli CNP Work Phone: [facility] Work Phone: 05-10-2023 17:08-0400 Body temperature 98.2 [degF] Denny Lomeli CNP Work Phone: [facility] Work Phone: 05-10-2023 17:08-0400 Body weight 86.64 kg Denny Lomeli CNP Work Phone: [facility] Work Phone: 05-10-2023 17:08-0400 Diastolic blood pressure 76 mm[Hg] Denny Lomeli CNP Work Phone: [facility] Work Phone: 05-10-2023 17:08-0400 Heart rate 97 /min Denny Lomeli CNP Work Phone: [facility] Work Phone: 05-10-2023 17:08-0400 SaO2% (BldA) [Mass fraction] 97 % Denny Lomeli CNP Work Phone: [facility] Work Phone: 05-10-2023 17:08-0400 Systolic blood pressure 111 mm[Hg] Denny Lomeli CNP Work Phone: [facility] Work Phone: 05-01-2023 14:03-0400 Diastolic blood pressure 76 mm[Hg] Denny oLmeli RACKING TECHNICIAN Work Phone: [facility] 05-01-2023 14:03-0400 Heart rate 94 /min Denny Lomeli CNP Work Phone: [facility] 05-01-2023 14:03-0400 Systolic blood pressure 124 mm[Hg] Denny Lomeli CNP Work Phone: [facility] 08-12-2022 13:36-0400 Body height 162.56 cm Denny Lomeli CNP Work Phone: [facility] Work Phone: 08-12-2022 13:36-0400 Body mass index (BMI) [Ratio] 52.5 kg/m2 Denny Lomeli CNP Work Phone: [facility] Work Phone: 08-12-2022 13:36-0400 Body surface area Derived from formula 2.3 m2 Denny Lomeli CNP Work Phone: [facility] Work Phone: 08-12-2022 13:36-0400 Body temperature 99.3 [degF] Denny Lomeli CNP Work Phone: [facility] Work Phone: 08-12-2022 13:36-0400 Body weight 138.8 kg Denny Lomeli CNP Work Phone: [facility] Work Phone: 08-12-2022 13:36-0400 Diastolic blood pressure 86 mm[Hg] Denny Lomeli CNP Work Phone: [facility] Work Phone: 08-12-2022 13:36-0400 Heart rate 96 /min Denny Lomeli CNP Work Phone: [facility] Work Phone: 08-12-2022 13:36-0400 Heart Rate Rhythm 1 1 Denny Lomeli CNP Work Phone: [facility] Work Phone: 08-12-2022 13:36-0400 SaO2% (BldA) [Mass fraction] 97 % Denny Lomeli CNP Work Phone: [facility] Work Phone: 08-12-2022 13:36-0400 Systolic blood pressure 124 mm[Hg] Denny Lomeli CNP Work Phone: [facility] Work Phone: 06-15-2022 15:17-0400 Body height 162.56 cm Denny Lomeli CNP Work Phone: [facility] Work Phone: 06-15-2022 15:17-0400 Body mass index (BMI) [Ratio] 53.6 kg/m2 Denny Lomeli CNP Work Phone: [facility] Work Phone: 06-15-2022 15:17-0400 Body surface area Derived from formula 2.36 m2 Denny Lomeli CNP Work Phone: [facility] Work Phone: 06-15-2022 15:17-0400 Body surface area Derived from formula 2.4 m2 Denny Lomeli CNP Work Phone: [facility] Work Phone: 06-15-2022 15:17-0400 Body temperature 97.4 [degF] Denny Lomeli CNP Work Phone: [facility] Work Phone: 06-15-2022 15:17-0400 Body weight 141.52 kg Denny Lomeli CNP Work Phone: [facility] Work Phone: 06-15-2022 15:17-0400 Diastolic blood pressure 82 mm[Hg] Denny Lomeli CNP Work Phone: [facility] Work Phone: 06-15-2022 15:17-0400 Heart rate 86 /min Denny Lomeli CNP Work Phone: [facility] Work Phone: 06-15-2022 15:17-0400 SaO2% (BldA) [Mass fraction] 98 % Denny Lomeli CNP Work Phone: [facility] Work Phone: 06-15-2022 15:17-0400 Systolic blood pressure 124 mm[Hg] Denny Lomeli CNP Work Phone: [facility] Work Phone: 06-08-2022 15:06-0400 Body height 162.56 cm Denny Lomeli CNP Work Phone: [facility] Work Phone: 06-08-2022 15:06-0400 Body mass index (BMI) [Ratio] 52.2 kg/m2 Denny Lomeli CNP Work Phone: [facility] Work Phone: 06-08-2022 15:06-0400 Body surface area Derived from formula 2.34 m2 Denny Lomeli CNP Work Phone: [facility] Work Phone: 06-08-2022 15:06-0400 Body surface area Derived from formula 2.3 m2 Denny Lomeli CNP Work Phone: [facility] Work Phone: 06-08-2022 15:06-0400 Body temperature 99.3 [degF] Denny Lomeli CNP Work Phone: [facility] Work Phone: 06-08-2022 15:06-0400 Body weight 137.89 kg Denny Lomeli CNP Work Phone: [facility] Work Phone: 06-08-2022 15:06-0400 Diastolic blood pressure 94 mm[Hg] Denny Lomeli CNP Work Phone: [facility] Work Phone: 06-08-2022 15:06-0400 Heart rate 105 /min Denny Lomeli CNP Work Phone: [facility] Work Phone: 06-08-2022 15:06-0400 Heart Rate Rhythm 1 1 Denny Lomeli CNP Work Phone: [facility] Work Phone: 06-08-2022 15:06-0400 SaO2% (BldA) [Mass fraction] 98 % Denny Lomeli CNP Work Phone: [facility] Work Phone: 06-08-2022 15:06-0400 Systolic blood pressure 126 mm[Hg] Denny Lomeli CNP Work Phone: [facility] Work Phone: 05-27-2022 16:34-0400 Diastolic blood pressure 102 mm[Hg] Denny Lomeli CNP Work Phone: [facility] Work Phone: 05-27-2022 16:34-0400 Systolic blood pressure 150 mm[Hg] Denny Lomeli CNP Work Phone: [facility] Work Phone: 05-27-2022 15:08-0400 Body height 162.56 cm Denny Lomeli CNP Work Phone: [facility] Work Phone: 05-27-2022 15:08-0400 Body mass index (BMI) [Ratio] 52.6 kg/m2 Denny Lomeli CNP Work Phone: [facility] Work Phone: 05-27-2022 15:08-0400 Body surface area Derived from formula 2.34 m2 Denny Lomeli CNP Work Phone: [facility] Work Phone: 05-27-2022 15:08-0400 Body surface area Derived from formula 2.3 m2 Denny Lomeli CNP Work Phone: [facility] Work Phone: 05-27-2022 15:08-0400 Body temperature 98.5 [degF] Denny Lomeli CNP Work Phone: [facility] Work Phone: 05-27-2022 15:08-0400 Body weight 138.98 kg Denny Lomeli CNP Work Phone: [facility] Work Phone: 05-27-2022 15:08-0400 Diastolic blood pressure 108 mm[Hg] Denny Lomeli CNP Work Phone: [facility] Work Phone: 05-27-2022 15:08-0400 Heart rate 89 /min Denny Lomeli CNP Work Phone: [facility] Work Phone: 05-27-2022 15:08-0400 SaO2% (BldA) [Mass fraction] 99 % Denny Lomeli CNP Work Phone: [facility] Work Phone: 05-27-2022 15:08-0400 Systolic blood pressure 152 mm[Hg] Denny Lomeli CNP Work Phone: [facility] Work Phone: 07-15-2021 13:50-0400 Body height 162.56 cm Denny Lomeli CNP Work Phone: [facility] Work Phone: 07-15-2021 13:50-0400 Body mass index (BMI) [Ratio] 50.1 kg/m2 Denny Lomeli CNP Work Phone: [facility] Work Phone: 07-15-2021 13:50-0400 Body surface area Derived from formula 2.3 m2 Denny Lomeli CNP Work Phone: [facility] Work Phone: 07-15-2021 13:50-0400 Body temperature 96.8 [degF] Denny Lomeli CNP Work Phone: [facility] Work Phone: 07-15-2021 13:50-0400 Body weight 132.45 kg Denny Lomeli CNP Work Phone: [facility] Work Phone: 07-15-2021 13:50-0400 Diastolic blood pressure 86 mm[Hg] Denny Lomeli CNP Work Phone: [facility] Work Phone: 07-15-2021 13:50-0400 Heart rate 86 /min Denny Lomeli CNP Work Phone: [facility] Work Phone: 07-15-2021 13:50-0400 Respiratory rate 18 /min Denny Lomeli CNP Work Phone: [facility] Work Phone: 07-15-2021 13:50-0400 SaO2% (BldA) [Mass fraction] 96 % Denny Lomeli CNP Work Phone: [facility] Work Phone: 07-15-2021 13:50-0400 Systolic blood pressure 132 mm[Hg] Denny Lomeli CNP Work Phone: [facility] Work Phone: 07-06-2021 23:34-0400 Heart rate 100 /min Kalyan Irizarry MD Work Phone: [email or web address] Work Phone: 07-06-2021 23:30-0400 Diastolic blood pressure 94 mm[Hg] Kalyan Irizarry MD Work Phone: [email or web address] Work Phone: 07-06-2021 23:30-0400 Systolic blood pressure 146 mm[Hg] Kalyan Irizarry MD Work Phone: [email or web address] Work Phone: 07-06-2021 22:37-0400 SaO2% (BldA) [Mass fraction] 97 % Kalyan Irizarry MD Work Phone: [email or web address] Work Phone: 07-06-2021 14:51-0400 Body mass index (BMI) [Ratio] 47.72 kg/m2 Kalyan Irizarry MD Work Phone: [email or web address] Work Phone: 07-06-2021 14:51-0400 Body temperature 98.2 [degF] Kalyan Irizarry MD Work Phone: [email or web address] Work Phone: 07-06-2021 14:51-0400 Body weight 126.1 kg Kalyan Irizarry MD Work Phone: [email or web address] Work Phone: 07-06-2021 14:51-0400 Respiratory rate 16 /min Kalyan Irizarry MD Work Phone: [email or web address] Work Phone: 06-17-2021 16:38-0400 Body height 162.56 cm Denny Lomeli CNP Work Phone: [facility] Work Phone: 06-17-2021 16:38-0400 Body mass index (BMI) [Ratio] 49.3 kg/m2 Denny Lomeli CNP Work Phone: [facility] Work Phone: 06-17-2021 16:38-0400 Body surface area Derived from formula 2.28 m2 Denny Lomlei CNP Work Phone: [facility] Work Phone: 06-17-2021 16:38-0400 Body temperature 97.4 [degF] Denny Lomeli CNP Work Phone: [facility] Work Phone: 06-17-2021 16:38-0400 Body weight 130.18 kg Denny Lomeli CNP Work Phone: [facility] Work Phone: 06-17-2021 16:38-0400 Diastolic blood pressure 98 mm[Hg] Denny Lomeli CNP Work Phone: [facility] Work Phone: 06-17-2021 16:38-0400 Heart rate 85 /min Denny Lomeli CNP Work Phone: [facility] Work Phone: 06-17-2021 16:38-0400 Respiratory rate 18 /min Denny Lomeli CNP Work Phone: [facility] Work Phone: 06-17-2021 16:38-0400 SaO2% (BldA) [Mass fraction] 97 % Denny Lomeli CNP Work Phone: [facility] Work Phone: 06-17-2021 16:38-0400 Systolic blood pressure 144 mm[Hg] Denny Landonkacie CHAVEZ Work Phone: [facility] [employer] [facility] Work Phone: 05-16-2021 02:36-0400 Diastolic blood pressure 93 mm[Hg] Blanco Montalvo MD Work Phone: [email or web address] Work Phone: 05-16-2021 02:36-0400 Heart rate 75 /min Blanco Montalvo MD Work Phone: [email or web address] Work Phone: 05-16-2021 02:36-0400 Respiratory rate 20 /min Blanco Montalvo MD Work Phone: [email or web address] Work Phone: 05-16-2021 02:36-0400 SaO2% (BldA) [Mass fraction] 100 % Blanco Montalvo MD Work Phone: [email or web address] Work Phone: 05-16-2021 02:36-0400 Systolic blood pressure 150 mm[Hg] Blanco Montalvo MD Work Phone: [email or web address] Work Phone: 05-15-2021 20:15-0400 Body temperature 99.1 [degF] Blanco Montalvo MD Work Phone: [email or web address] Work Phone: 04-23-2021 11:33-0400 Body height 162.56 cm Dennyartme Lomeli CNP Work Phone: [facility] Work Phone: 04-23-2021 11:33-0400 Body mass index (BMI) [Ratio] 48.9 kg/m2 Dennyartem Lomeli CNP Work Phone: [facility] Work Phone: 04-23-2021 11:33-0400 Body surface area Derived from formula 2.27 m2 Denny Lomeli CNP Work Phone: [facility] Work Phone: 04-23-2021 11:33-0400 Body temperature 98.2 [degF] Denny Lomeli CNP Work Phone: [facility] Work Phone: 04-23-2021 11:33-0400 Body weight 129.28 kg Denny Lomeli CNP Work Phone: [facility] Work Phone: 04-23-2021 11:33-0400 Diastolic blood pressure 86 mm[Hg] Denny Lomeli CNP Work Phone: [facility] Work Phone: 04-23-2021 11:33-0400 Heart rate 101 /min Denny Lomeli CNP Work Phone: [facility] Work Phone: 04-23-2021 11:33-0400 SaO2% (BldA) [Mass fraction] 98 % Denny Lomeli CNP Work Phone: [facility] Work Phone: 04-23-2021 11:33-0400 Systolic blood pressure 124 mm[Hg] Denny Lomeli CNP Work Phone: [facility] Work Phone: 04-09-2021 16:30-0400 Body height 162.6 cm [employer] Work Phone: [email or web address] Work Phone: 04-09-2021 16:30-0400 Body mass index (BMI) [Ratio] 47.2 kg/m2 [employer] Work Phone: [email or web address] Work Phone: 04-09-2021 16:30-0400 Body temperature 98.8 [degF] Jm Andes DO Work Phone: [email or web address] Work Phone: 04-09-2021 16:30-0400 Body weight 124.74 kg Jm Andes DO Work Phone: [email or web address] Work Phone: 04-09-2021 16:30-0400 Diastolic blood pressure 88 mm[Hg] Jm Andes DO Work Phone: [email or web address] Work Phone: 04-09-2021 16:30-0400 Heart rate 78 /min Jm Andes DO Work Phone: [email or web address] Work Phone: 04-09-2021 16:30-0400 Respiratory rate 18 /min Jm Andes DO Work Phone: [email or web address] Work Phone: 04-09-2021 16:30-0400 SaO2% (BldA) [Mass fraction] 96 % Jm Andes DO Work Phone: [email or web address] Work Phone: 04-09-2021 16:30-0400 Systolic blood pressure 138 mm[Hg] Jm Andes DO Work Phone: [email or web address] Work Phone: 04-01-2021 15:53-0400 Body height 162.56 cm eDnny Lomeli [employer] Work Phone: [employer] [facility] Work Phone: 04-01-2021 15:53-0400 Body mass index (BMI) [Ratio] 49.5 kg/m2 Denny Lomeli [employer] Work Phone: [employer] [facility] Work Phone: 04-01-2021 15:53-0400 Body surface area Derived from formula 2.29 m2 Denny Lomeli CNP Work Phone: [facility] Work Phone: 04-01-2021 15:53-0400 Body temperature 97.6 [degF] Denny Lomeli CNP Work Phone: [facility] Work Phone: 04-01-2021 15:53-0400 Body weight 130.82 kg Denny Lomeli RACKING TECHNICIAN Work Phone: [facility] Work Phone: 04-01-2021 15:53-0400 Diastolic blood pressure 88 mm[Hg] Denny Lomeli RACKING TECHNICIAN Work Phone: [facility] Work Phone: 04-01-2021 15:53-0400 Heart rate 83 /min Denny Lomeli CNP Work Phone: [facility] Work Phone: 04-01-2021 15:53-0400 Respiratory rate 20 /min Denny Lomeli CNP Work Phone: [facility] Work Phone: 04-01-2021 15:53-0400 SaO2% (BldA) [Mass fraction] 98 % Denny Lomeli CNP Work Phone: [facility] Work Phone: 04-01-2021 15:53-0400 Systolic blood pressure 130 mm[Hg] Denny Lomeli RACKING TECHNICIAN Work Phone: [facility] Work Phone: 03-17-2021 15:36-0400 Diastolic blood pressure 108 mm[Hg] Denny Lomeli RACKING TECHNICIAN Work Phone: [facility] Work Phone: 03-17-2021 15:36-0400 Systolic blood pressure 134 mm[Hg] Denny Lomeli CNP Work Phone: [facility] Work Phone: 03-17-2021 14:05-0400 Body height 162.56 cm Denny Lomeli CNP Work Phone: [facility] Work Phone: 03-17-2021 14:05-0400 Body mass index (BMI) [Ratio] 49.8 kg/m2 Denny Lomeli CNP Work Phone: [facility] Work Phone: 03-17-2021 14:05-0400 Body surface area Derived from formula 2.29 m2 Denny Lomeli CNP Work Phone: [facility] Work Phone: 03-17-2021 14:05-0400 Body temperature 96.4 [degF] Denny Lomeli CNP Work Phone: [facility] Work Phone: 03-17-2021 14:05-0400 Body weight 131.54 kg Denny Lomeli CNP Work Phone: [facility] Work Phone: 03-17-2021 14:05-0400 Diastolic blood pressure 108 mm[Hg] Denny Lomeli CNP Work Phone: [facility] Work Phone: 03-17-2021 14:05-0400 Heart rate 97 /min Denny Lomeli CNP Work Phone: [facility] Work Phone: 03-17-2021 14:05-0400 Respiratory rate 18 /min Denny Lomeli CNP Work Phone: [facility] Work Phone: 03-17-2021 14:05-0400 SaO2% (BldA) [Mass fraction] 98 % Denny Lomeli CNP Work Phone: [facility] Work Phone: 03-17-2021 14:05-0400 Systolic blood pressure 150 mm[Hg] Denny Lomeli CNP Work Phone: [facility] Work Phone: Encounters Encounter Date Encounter Type Care Provider Facility Start: 07-18-2024 End: 07-18-2024 [facility] visit, estab pt Sarai Alberts [place]TE Work Phone: [facility] Work Phone: Start: 06-13-2024 End: 06-13-2024 FQHC visit, estab pt Kinga Short LISWS Work Phone: [facility] Work Phone: Start: 06-13-2024 End: 06-13-2024 Encounter for preprocedural laboratory examination Denny Lomeli CNP Work Phone: [facility] Work Phone: Start: 06-13-2024 End: 06-13-2024 FQHC visit, estab pt Denny Lomeli RACKING TECHNICIAN Work Phone: [facility] Work Phone: Start: 04-10-2024 End: 04-10-2024 FQHC visit, estab pt Kinga Short LISWS Work Phone: [facility] Work Phone: Start: 04-10-2024 End: 04-10-2024 FQHC visit, estab pt Kinga Short LISWS Work Phone: [facility] Work Phone: Start: 02-28-2024 End: 02-29-2024 Emergency department patient visit MABLE RO [facility] Start: 01-17-2024 End: 01-17-2024 FQHC visit, estab pt Kinga RUDOLPH Work Phone: [facility] Work Phone: Start: 01-17-2024 End: 01-17-2024 General Denny Lomeli CNP Work Phone: [facility] Work Phone: Start: 06-14-2023 End: 06-14-2023 General Boston Mao DDS Work Phone: [facility] Work Phone: Start: 05-31-2023 End: 05-31-2023 General Boston Mao DDS Work Phone: [facility] Work Phone: Start: 05-10-2023 End: 05-10-2023 FQHC visit, estab pt Denny Lomeli CNP Work Phone: [facility] Work Phone: Start: 05-01-2023 comprehensive oral evaluation - new or established patient Boston Mao DDS Work Phone: [facility] Start: 05-01-2023 End: 05-01-[address] Work Phone: [facility] Work Phone: Start: 08-13-2022 End: 08-13-2022 ambulatory DENNY LOMELI [facility] Start: 08-12-2022 End: 08-12-2022 Subsequent hospital visit by physician Denny Lomeli APRN - RACKING TECHNICIAN Work Phone: [facility] Start: 08-12-2022 End: 08-12-2022 FQHC visit, estab pt Denny Lomeli CNP Work Phone: [facility] Work Phone: Start: 06-16-2022 End: 06-16-2022 General Belkis Velarde LPCC-S Work Phone: [facility] Work Phone: Start: 06-15-2022 End: 06-15-2022 ambulatory Leah Amaya RACKING TECHNICIAN Work Phone: [facility] Work Phone: Start: 06-15-2022 End: 06-15-2022 General Leah Monique RACKING TECHNICIAN Work Phone: [facility] Work Phone: Start: 06-08-2022 End: 06-08-2022 FQHC visit, estab pt Belkis Velarde LPCC-S Work Phone: [facility] Work Phone: Start: 05-27-2022 End: 05-27-2022 FQHC visit, estab pt Belkis Velarde LPCC-S Work Phone: [facility] Work Phone: Start: 05-27-2022 End: 05-27-2022 ambulatory Leah Porraser RACKING TECHNICIAN Work Phone: [facility] Work Phone: Start: 05-27-2022 End: 07-15-2021 General Leah Monique RACKING TECHNICIAN Work Phone: [facility] Work Phone: Start: 07-26-2021 End: 07-27-2021 ambulatory DENNY LOMELI [facility] Start: 07-26-2021 End: 07-26-2021 Subsequent hospital visit by physician [facility] Director Of Customer Acquisition [facility] EKG Comment on above: Tachycardia Start: 07-15-2021 End: 07-15-2021 FQHC visit, estab pt Eufemia Mcneil LPCC-S Work Phone: [facility] Work Phone: Start: 07-15-2021 End: 07-15-2021 FQHC visit, estab pt Eufemia Mcneil [facility] Work Phone: [facility] Work Phone: Start: 07-07-2021 End: 07-10-2021 [facility] Start: 07-06-2021 End: 07-07-2021 Emergency department patient visit ROMEO CRUZ [facility] Start: 07-06-2021 End: 07-06-2021 Emergency department patient visit Kalyan Irizarry MD Work Phone: [facility] ED Comment on above: Bipolar 1 disorder ( HCC) (Primary Dx); Homicidal ideation Start: 06-17-2021 End: 06-17-2021 FQHC visit, estab pt Kinga RUDOLPH Work Phone: [facility] Work Phone: Start: 05-15-2021 End: 05-16-2021 Emergency department patient visit BLANCO Sung [facility] Start: 05-15-2021 End: 05-16-2021 Emergency department patient visit Blanco Montalvo MD Work Phone: [facility] ED Comment on above: Anxiety state (Prima ry Dx) Start: 04-23-2021 End: 04-23-2021 ambulatory Teagan Gale CNP Work Phone: [facility] Work Phone: Start: 04-23-2021 End: 04-23-2021 General Teagan Gale CNP Work Phone: [facility] Work Phone: Start: 04-23-2021 End: 04-23-2021 FQHC visit, estab pt Kinga RUDOLPH Work Phone: [facility] Work Phone: Start: 04-23-2021 End: 04-23-2021 FQHC visit, estab pt Kinga Short LISWS Work Phone: [facility] Work Phone: Start: 04-09-2021 End: 04-10-2021 Emergency department patient visit JM HUSSEIN [facility] Start: 04-09-2021 End: 04-10-2021 Emergency department patient visit Jm Hussein DO Work Phone: [facility] ED Comment on above: Depression with suic idal ideation (Primary Dx) Start: 04-01-2021 End: 04-01-2021 FQHC visit, estab pt Kinga Short LISWS Work Phone: [facility] Work Phone: Start: 04-01-2021 End: 04-01-2021 FQHC visit, estab pt Kinga Short LISWS Work Phone: [facility] Work Phone: Start: 03-17-2021 End: 03-17-2021 FQHC visit, estab pt Kinga Short LISWS Work Phone: [facility] Work Phone: Start: 03-17-2021 End: 03-17-2021 FQHC visit new patient Denny Lomeli CNP Work Phone: [facility] Work Phone: Start: 06-06-2020 End: 06-06-2020 Patient encounter procedure ADDIS Dickey SUNIL Facility: Start: 06-12-2017 End: 06-12-2017 Emergency department patient visit MD RIZWAN LÓPEZ Facility:[facility] Procedures Date Procedure Procedure Detail Performing Clinician Start: 07-18-2024 Application of silve r diamine fluoride by physician Denny Lomeli CNP Work Phone: Start: 07-18-2024 Behav assmt w/score & docd/stand instrument Sarai Alberts [place] Work Phone: Start: 07-18-2024 Eye img vld mtch dx 7 stnd fld w/o evc rtnopthy Denny Lomeli CNP Work Phone: Start: 07-18-2024 Foot examination performed Denny Lomeli CNP Work Phone: Start: 07-18-2024 Fundus photography w/interpretation & report Denny Lomeli CNP Work Phone: Start: 07-18-2024 Gluc bld gluc mntr d ev cleared fda spec home use Denny Lomeli CNP Work Phone: Start: 07-18-2024 Most recent diastoli c blood pressure 80-89 mm hg Denny Lomeli CNP Work Phone: Start: 07-18-2024 Most recent systolic blood press 130-139mm hg Denny Lomeli CNP Work Phone: Start: 06-13-2024 Collection venous bl ood venipuncture Denny Lomeli CNP Work Phone: Start: 06-13-2024 Current tobacco non- user cad cap copd pv dm Denny Lomeli CNP Work Phone: Start: 06-13-2024 Gluc bld gluc mntr d ev cleared fda spec home use Denny Lomeli CNP Work Phone: Start: 06-13-2024 Most recent hg a1c>e qual to 7.0%&<8.0% Denny Lomeli CNP Work Phone: Start: 06-13-2024 Pneumococcal Prevnar 20 Denny Lomeli CNP Work Phone: Start: 06-13-2024 Psychotherapy w/blaze ent 30 minutes Kinga Short [employer] Work Phone: Start: 04-10-2024 Behav assmt w/score & docd/stand instrument Kinga Short LISWS Work Phone: Start: 04-10-2024 Current tobacco non- user cad cap copd pv dm Denny Lomeli CNP Work Phone: Start: 04-10-2024 Most recent diastoli c blood pressure 80-89 mm hg Denny Lomeli CNP Work Phone: Start: 04-10-2024 Most recent systolic blood press 130-139mm hg Denny Loemli CNP Work Phone: Start: 04-10-2024 Pt scrnd tobacco use rcvd tobacco cessation talk Denny Lomeli CNP Work Phone: Start: 01-17-2024 Current tobacco non- user cad cap copd pv dm Denny Lomeli CNP Work Phone: Start: 01-17-2024 Gluc bld gluc mntr d ev cleared fda spec home use Denny Lomeli CNP Work Phone: Start: 01-17-2024 Most recent diastoli c blood pressure 80-89 mm hg Denny Lomeli CNP Work Phone: Start: 01-17-2024 Most recent hemoglob in a1c level < 7.0% Denny Lomeli CNP Work Phone: Start: 01-17-2024 Most recent systolic blood press 130-139mm hg Denny Lomeli CNP Work Phone: Start: 01-17-2024 Psychotherapy w/blaze ent 30 minutes Kinga RUDOLPH Work Phone: Start: 01-17-2024 Pt scrnd tobacco use rcvd tobacco cessation talk Denny Lomeli CNP Work Phone: Start: 01-17-2024 Screening for disorder Visit F or: Screening For Disorder Kinga RUDOLPH Work Phone: Start: 01-17-2024 Venereal disease screening Visit For: Screening Exam Std Denny Lomeli CNP Work Phone: Start: 06-14-2023 resin-based composit e - one surface, posterior Boston Mao DDS Work Phone: Start: 05-31-2023 resin-based composit e - one surface, posterior [place] Mao DDS Work Phone: Start: 05-10-2023 Hemoglobin glycosyla stephanie a1c Denny Armani RACKING TECHNICIAN Work Phone: Start: 05-10-2023 Most recent diastoli c blood pressure < 80 mm hg Denny Lomeli RACKING TECHNICIAN Work Phone: Start: 05-10-2023 Most recent hemoglob in a1c level < 7.0% Denny Lomeli RACKING TECHNICIAN Work Phone: Start: 05-10-2023 Most recent systolic blood pressure <130 mm hg Denny Lomeli RACKING TECHNICIAN Work Phone: Start: 05-01-2023 caries risk assessme nt and documentation, with a finding of high risk Dina Ham RD Work Phone: Start: 05-01-2023 intraoral - complete series of radiographic images Dina Ham RD Work Phone: Start: 05-01-2023 panoramic radiograph ic image Dina Ham RD Work Phone: Start: 05-01-2023 prophylaxis - adult Ernie Ham RD Work Phone: Start: 08-12-2022 Most recent diastoli c blood pressure 80-89 mm hg Denny Lomeli RACKING TECHNICIAN Work Phone: Start: 08-12-2022 Most recent systolic blood pressure <130 mm hg Denny Lomeli RACKING TECHNICIAN Work Phone: Start: 06-16-2022 Psychotherapy w/blaze ent 30 minutes Belkis Velarde LPCC-S Work Phone: Start: 06-15-2022 Most recent diastoli c blood pressure 80-89 mm hg Leah Monique RACKING TECHNICIAN Work Phone: Start: 06-15-2022 Most recent systolic blood pressure <130 mm hg Leah Monique RACKING TECHNICIAN Work Phone: Start: 06-15-2022 Psychotherapy w/blaze ent 30 minutes Belkis Velarde LPCC-S Work Phone: Start: 06-08-2022 Most recent diastol blood pres >/equal 90 mm hg Denny Lomeli RACKING TECHNICIAN Work Phone: Start: 06-08-2022 Most recent systolic blood pressure <130 mm hg Denny Lomeli [facility] Work Phone: Start: 06-08-2022 Psychotherapy w/blaze ent 30 minutes Belkis Velarde [facility] Work Phone: Start: 05-27-2022 Hemoglobin glycosyla stephanie a1c Leah Amaya [facility] Work Phone: Start: 05-27-2022 Most recent diastol blood pres >/equal 90 mm hg Leah Porraser [facility] Work Phone: Start: 05-27-2022 Most recent hemoglob in a1c level < 7.0% Leah Porraser [facility] Work Phone: Start: 05-27-2022 Most recent systolic blood pres>/equal 140 mm hg Leah Amaya [facility] Work Phone: Start: 05-27-2022 Psychotherapy w/blaze ent 30 minutes Belkis Velarde [facility] Work Phone: Start: 07-15-2021 Antibody hiv-1&hiv-2 single result Denny Lomeli [facility] Work Phone: Start: 07-15-2021 Most recent diastoli c blood pressure 80-89 mm hg Denny Lomeli [facility] Work Phone: Start: 07-15-2021 Most recent systolic blood press 130-139mm hg Denny Lomeli [facility] Work Phone: Start: 07-15-2021 Psychotherapy w/blaze ent 30 minutes Eufemia Mcneil [facility] Work Phone: Start: 07-15-2021 Pt scrnd tobacco use rcvd tobacco cessation talk Denny Lomeli [facility] Work Phone: Start: 07-06-2021 COVID-19, RAPID Kalyan Irizarry MD Work Phone: Start: 07-06-2021 Drug screen class list a Kalyan Irizarry MD Work Phone: Start: 07-06-2021 Urnls dip stick/tabl et reagent auto microscopy Kalyan Irizarry MD Work Phone: Start: 07-06-2021 Assay of acetaminophen Kalyan Irizarry MD Work Phone: Start: 07-06-2021 Assay of ethanol Gil Irizarry MD Work Phone: Start: 07-06-2021 Assay of salicylate Cip pierre Irizarry MD Work Phone: Start: 07-06-2021 Comprehensive metabo lic panel Kalyan Irizarry MD Work Phone: Start: 07-06-2021 Ecg routine ecg w/le ast 12 lds w/i&r Kalyan Irizarry MD Work Phone: Start: 06-17-2021 Most recent diastoli c blood pressure < 80 mm hg Dennyartem Lomeli [facility] Work Phone: Start: 06-17-2021 Most recent systolic blood pressure <130 mm hg [facility] Work Phone: Start: 06-17-2021 Psychotherapy w/blaze ent 30 minutes Kinga Short LISWS Work Phone: Start: 05-15-2021 COVID-19, RAPID Blanco Montalvo MD Work Phone: Start: 05-15-2021 Assay of acetaminophen Blanco Montalvo MD Work Phone: Start: 05-15-2021 Assay of ethanol Blanco Montalvo MD Work Phone: Start: 05-15-2021 Assay of salicylate Neil Montalvo MD Work Phone: Start: 05-15-2021 Comprehensive metabo lic panel Blanco Montalvo MD Work Phone: Start: 05-15-2021 Drug screen class list sung Montalvo MD Work Phone: Start: 05-15-2021 Urinalysis microscop ic only Blanco Montalvo MD Work Phone: Start: 05-15-2021 Urnls dip stick/tabl et rgnt auto w/o microscopy Blanco Montalvo MD Work Phone: Start: 04-23-2021 Most recent diastoli c blood pressure 80-89 mm hg [facility] RACKING TECHNICIAN Work Phone: Start: 04-23-2021 Most recent systolic blood pressure <130 mm hg [facility] RACKING TECHNICIAN Work Phone: Start: 04-23-2021 Psychotherapy w/blaze ent 30 minutes Kinga Short LISWS Work Phone: Start: 04-09-2021 Ecg routine ecg w/le ast 12 lds w/i&r Jm Andes DO Work Phone: Start: 04-09-2021 Assay of acetaminophen Jm Andes DO Work Phone: Start: 04-09-2021 Assay of ethanol Jm Andes DO Work Phone: Start: 04-09-2021 Assay of salicylate Jus tin Andes DO Work Phone: Start: 04-09-2021 Comprehensive metabo lic panel Jm Andes DO Work Phone: Start: 04-09-2021 SPECIMEN REJECTION Just in Andes DO Work Phone: Start: 04-09-2021 COVID-19, RAPID Jm Andes DO Work Phone: Start: 04-09-2021 Drug screen class list a Jm Andes DO Work Phone: Start: 04-09-2021 Urnls dip stick/tabl et reagent auto microscopy Kalyan Irizarry MD Work Phone: Start: 04-01-2021 Most recent diastoli c blood pressure 80-89 mm hg [facility] Work Phone: Start: 04-01-2021 Most recent systolic blood pressure <130 mm hg Denny Lomeli RACKING TECHNICIAN Work Phone: Start: 04-01-2021 Psychotherapy w/blaze ent 30 minutes Kinga Bourgeois LISWS Work Phone: Start: 03-17-2021 Ear Pressure Equaliz ation Tube, Insertion, Bilaterally Denny Lomeli RACKING TECHNICIAN Work Phone: Start: 03-17-2021 Most recent diastol blood pres >/equal 90 mm hg Denny Lomeli RACKING TECHNICIAN Work Phone: Start: 03-17-2021 Most recent systolic blood pres>/equal 140 mm hg Denny Lomeli RACKING TECHNICIAN Work Phone: Start: 03-17-2021 Pt-focused hlth risk assmt score doc stnd instrm Denny Lomeli RACKING TECHNICIAN Work Phone: Start: 03-17-2021 Tonsillectomy Dennyartem alexandra RACKING TECHNICIAN Work Phone: Plan of Treatment Date Care Activity Detail Author Start: 08-15-2024 FQHC visit, estab pt Medical E stablished Patient [facility] Work Phone: Start: 08-03-2024 CBC W Auto Different ial panel - Blood [facility] Start: 07-18-2024 FQHC visit, estab pt Medical E stablished Patient [facility] Work Phone: Start: 07-18-2024 End: 07-18-2024 Patient education based on identified need [facility] Start: 07-13-2024 US Transvaginal ([id number]) [facility] Start: 06-13-2024 End: 06-13-2024 Patient education based on identified need [facility] Start: 06-13-2024 FQHC visit, estab pt Medical E stablished Patient [facility] Work Phone: Start: 06-13-2024 End: 06-13-2024 Patient education based on identified need [facility] Start: 04-15-2024 Ferritin [Mass/volum e] in Serum or Plasma [facility] Start: 04-10-2024 End: 04-10-2024 Patient education based on identified need [facility] Start: 03-21-2024 FQHC visit, estab pt Medical E stablished Patient [facility] Work Phone: Start: 02-16-[address] Jphxdsjle-Ccvoeacqw-Uzc [facility] Start: 01-17-2024 End: 01-17-2024 Patient education based on identified need [facility] Start: 05-10-2023 End: 05-10-2023 Patient education based on identified need [facility] Start: 05-10-2023 Psychiatry [facility] Work Phone: Comment on above: Note: Please make a referral to: see if dr carney accepting now, otherwise ok with rd or ana Start: 12-13-2022 FQHC visit, estab pt Medical E stablished Patient [facility] Work Phone: Start: 08-12-2022 End: 08-12-2022 Patient education based on identified need [facility] Start: 07-08-20[address] Qbuwajcim-Wnuruzbds-Huj [facility] Start: 07-07-2022 FQHC visit, estab pt Medical E stablished Patient [facility] Work Phone: Start: 06-16-2022 End: 06-16-2022 Patient education based on identified need BHP offered active listening and supportive feedback; normalized emotions and feelings, also provided pt time to process any current stressors. ~Promoted and encouraged follow-through with scheduling psychiatric services [facility] Start: 06-15-2022 End: 06-15-2022 Patient education based on identified need [facility] Start: 06-13-2022 Health [facility] Start: 06-08-2022 FQHC visit, estab pt Ti [facility] Work Phone: Comment on above: Note: Please make a referral to: request dr carney Start: 06-08-2022 End: 06-08-2022 Patient education based on identified need [facility] Start: 05-27-2022 End: 05-27-2022 Patient education based on identified need [facility] ~BHP offered active listening and supportive feedback; normalized emotions and feelings, also provided pt time to process any current stressors ~BHP discussed potential benefits of counseling and supported re-engaging, as needed. ~BHP encouraged pt to continue to make time to implement self-care regimen and use coping methods, as needed [facility] Start: 05-27-2022 CBC W Auto Different ial panel - Blood [facility] Start: 05-27-2022 Lipid 1996 panel - S mica or Plasma LIPID PROFILE [facility] Start: 05-27-2022 End: 05-27-2022 Patient education based on identified need [facility] Start: 05-23-2022 Influenza vaccination Flu vaccine (# 1) [facility] Start: 08-24-2021 COVID-19 Vaccine (3 - Booster for Pfizer series) COVID-19 Vaccine (3 - Booster for Pfizer series) [facility] Start: 08-14-2021 [facility] Start: 07-19-2021 FQHC visit, estab pt Medical E stablished Patient [facility] Work Phone: Start: 07-15-2021 [facility] Work Phone: Comment on above: Note: Please make a referral to: [address] [id number]: [phone]: [phone] Note: Please make a referral to: [facility] , no longer wants to see derrell Start: 07-15-2021 End: 07-15-2021 Patient education based on identified need [facility] Start: 06-23-2021 Influenza vaccination M [facility] Work Phone: Start: 06-17-2021 End: 06-17-2021 Patient education based on identified need [facility] Start: 04-30-2021 SARS-CoV-2, MORENA [facility] Start: 04-23-2021 End: 04-23-2021 Patient education based on identified need [facility] Start: 04-01-2021 End: 04-01-2021 Patient education based on identified need [facility] Start: 03-17-2021 End: 03-17-2021 Patient education based on identified need [facility] Start: 06-24-2020 DTaP/Tdap/Td vaccine (7 - Td or Tdap) DTaP/Tdap/Td vaccine (7 - Td or Tdap) [facility] Start: 2020 Screening for malign ant neoplasm of cervix [facility] Start: 2018 DTaP/Tdap/Td vaccine (1 - Tdap) DTaP/Tdap/Td vaccine (1 - Tdap) [facility] Work Phone: Start: 2017 Hepatitis C screening Hepatitis C sc reen [facility] Ready Start: 2015 Screening for Chlamy solitario trachomatis [facility] Ready Start: 2014 HIV screening HIV screen [facility] Work Phone: Start: 2011 COVID-19 Vaccine (1) COVID-19 Vaccin e (1) [facility] Work Phone: Start: 2011 [facility] Start: 2010 HPV vaccine (1 - 2-d ose series) HPV vaccine (1 - 2-dose series) [facility] Ready Start: 2000 Varicella vaccine (1 of 2 - 2-dose childhood series) Varicella vaccine (1 of 2 - 2-dose childhood series) [facility] Start: 1999 Hepatitis C screening Hepatitis C sc reen [facility] Work Phone: End: 08-12-2022 C.trachomatis N.gonorrhoeae DNA, Urine [facility] C[facility]ZE Phone: Comment on above: Once for 1 Occurrenc es starting 08/12/2022 until 08/12/2022 EKG 12 Lead EKG 12 Lead ECG STAT 07/06/2021 3:18 PM EDT [facility] Work Phone: End: 08-12-2022 Trichomonas Vaginali, Molecular [facility] Work Phone: Comment on above: Once for 1 Occurrenc es starting 08/12/2022 until 08/12/2022 Immunizations Immunization Date Immunization Notes Care Provider Jennifer alejo 07-18-2024 influenza, injectabl e, quadrivalent, preservative free; Translations: [Fluarix] Denny Lomeli RACKING TECHNICIAN Work Phone: [facility] Comment on above: Note: Patient tolera stephanie well. No signs or symptoms of adverse reactions. Patient waited a minimum of 15 minutes. 07-18-2024 Imm.Admin. over 17 y rs Any Route FIRST Injection (Rendering physician modifier) Denny Lomeli RACKING TECHNICIAN Work Phone: [facility] 06-13-2024 Human Papillomavirus 9-valent vaccine; Translations: [GARDASIL 9] Denny Lomeli [facility] Work Phone: [facility] 06-13-2024 pneumococcal vaccine , unspecified formulation Denny Lomeli [facility] Work Phone: [facility] Comment on above: Note: Patient tolera stephanie well. No signs or symptoms of adverse reactions. Patient waited a minimum of 15 minutes. 06-13-2024 Imm.Admin.Through 17 yrs Any Route FIRST Injection Denny Lomeli CNP Work Phone: [facility] 06-13-2024 Ea.Addnl.Imm.Admin.T hroug h 17 yrs Any Route Denny Lomeli CNP Work Phone: [facility] 06-13-2024 VFC Imm. Admin. thro ugh 17 yrs Any Route per C Injection (Signi/Sep Eval. & Man.) Denny Lomeli CNP Work Phone: [facility] 08-12-2022 influenza, injectabl e, quadrivalent, preservative free; Translations: [Fluarix] Denny Lomeli CNP Work Phone: [facility] Comment on above: Note: Patient tolera stephanie well. No signs or symptoms of adverse reactions. Patient waited a minimum of 15 minutes. 08-12-2022 Imm.Admin. over 17 y rs Any Route FIRST Injection Denny Lomeli [facility] Work Phone: Health Replaced by [facility] 06-29-2021 1st Dose PFIZER COVI D-19 Vaccine Denny Lomeli [facility] Work Phone: [facility] 06-08-2021 1st Dose PFIZER COVI D-19 Vaccine Denny Lomeli [facility] Work Phone: Health Replaced by [facility] 06-29-2016 meningococcal oligosaccharide (groups A, C, Y and W-135) diphtheria toxoid conjugate vaccine (MCV4O) Denny Lomeli [facility] Work Phone: [facility] 06-24-2010 tetanus toxoid, redu messi diphtheria toxoid, and acellular pertussis vaccine, adsorbed Denny Lomeli [facility] Work Phone: [facility] 06-18-2004 measles, mumps and rubella virus vaccine Denny Lomeli [facility] Work Phone: [facility] 06-18-2004 poliovirus vaccine, inactivated Denny Lomeli [facility] Work Phone: [facility] 03-13-2000 measles, mumps and rubella virus vaccine Denny Lomeli [facility] Work Phone: Health Replaced by [facility] 03-13-2000 poliovirus vaccine, inactivated Denny Lomeli [facility] Work Phone: [facility] 1999 haemophilus influenz ae type b conjugate and Hepatitis B vaccine Denny Lomeli [facility] Work Phone: [facility] 1999 poliovirus vaccine, inactivated Denny Lomeli [facility] Work Phone: [facility] 1999 diphtheria, tetanus toxoids and pertussis vaccine Denny Armani [facility] Work Phone: Health Replaced by [facility] 1999 trivalent poliovirus vaccine, live, oral Denny Lomeli CNP Work Phone: [facility] Replaced by [facility] 1999 hepatitis B vaccine, pediatric or pediatric/adolescent dosage Denny Lomeli CNP Work Phone: [facility] 1999 hepatitis B vaccine, pediatric or pediatric/adolescent dosage Denny Lomeli CNP Work Phone: Health Replaced by [facility] Payers Date Payer Category Payer Unknown [id number] 1999 Unknown [id number] 2.16.84 [id number] 1999 Unknown [id number] 2.16.8 [id number] 1999 Unknown [id number] 2.16.8 [id number] 1999 Unknown [id number] 2.16.8 [id number] 1999 Unknown [id number] 2.16.8 [id number] 1999 Unknown [id number] 2.16.8 [id number] 1999 Unknown [id number] [id number] 1999 Unknown [id number] 2.16.8 [id number] 1999 Unknown [id number] 2.16.8 [id number] 1959 Private Health Insurance [id number] Unknown [id number] Social History Date Type Detail Facility Assertion Family problems (finding) [facility] Assertion Problem situatio n relating to social and personal history (finding) [facility] Assertion Emotional stress (finding) [facility] Assertion Lives with parkacie ts (finding) [facility] Assertion Social drinker (finding) [facility] Assertion Benzodiazepine m isuse (finding) [facility] Assertion Sexually active (finding) [facility] Assertion [facility] Assertion Gender identity finding (finding) [facility] Assertion Finding of sexua l orientation (finding) [facility] Tobacco smoking status Unknown if ever smoked [facility] Work Phone: Start: 08-09-2017 End: 04-09-2021 Tobacco smoking status NHIS Never smoker [employer] Phone: Start: 08-09-2017 End: 04-09-2021 Tobacco use and exposure Never used [email or web address] Start: 04-09-2021 End: 07-09-2021 Alcohol intake Ex-drinker (finding) [employer] Phone: Start: 04-09-2021 History SDOH Alcohol Frequency 1 [employer] Phone: Start: 2000 Sex Assigned At Not on file [facility] [employer] Phone: Exposure to SARS-CoV-2 (event) Not sure [employer] Smoking monitori ng status (finding) [facility] Work Phone: Assertion Cigarette smoker (finding) [facility] [employer] Light cigarette smoker (1-9 cigs/day) (finding) [facility] Assertion Exposure to poll ution (event) [facility] Assertion Smoker (finding) [facility] Assertion Finding relating to sexual activity (finding) [facility] Assertion Homosexual behav ior (finding) [facility] Assertion Currently not se xually active (finding) [facility] Assertion Details of drug misuse behavior (observable entity) [facility] Assertion History of disor kyree (situation) [facility] NEGATED: Highlighted row Assertion Current drinker of alcohol (finding) [facility] NEGATED: Highlighted row Assertion Finding relating to drug misuse behavior (finding) [facility] NEGATED: Highlighted row Assertion [facility] NEGATED: Highlighted row Assertion Exposure to pollution (event) [facility] Medical Equipment Procedure Code Equipment Code Equipment Origin al Text Equipment Identifier Dates Blood Glucose Te st In Vitro Strip [id number] Start: 06-13-2024 End: 07-01-2024 [employer] Lancets Miscellaneous [id number] Start: 06-13-2024 OneTouch Ultra I n Vitro Strip [id number] Start: 07-01-2024 End: 06-26-2025 Mental Status Date Assessment Result Facility 10-23-2019 Cognitive function A previous dhillon icide attempt 2019 with hospitalization at [address] [place] [address] Work Phone: Cognitive function Cognitive fun ctioning was normal Cognitive function finding (finding) [facility] Work Phone: Clinical Notes 03-17-2021 to 07-29-2024 Note Date & Type Note Facility 07-29-2024 Evaluation note Includes: Assessments for all patient encounters Findings [D50.9 - Iron deficiency ane eduardo, unspecified] iron deficiency anemia Chart Update with Denny Armani CHAVEZ 07/29/2024 Last Documented On 4 2:06PM ; [facility] Attention-deficit hyperactivity disorder Established Patient with Sarai Alberts [facility] 07/18/2024 Last Documented On 4 4:15PM ; [facility] Bipolar I disorder, most rec ent episode, depressed - mild Established Patient with Sarai Alberts [facility] 07/18/2024 Last Documented On 4 4:15PM ; [facility] Nicotine dependence Established Patient with Sarai Alberts [facility] 07/18/2024 Last Documented On 4 4:15PM ; [facility] Post-traumatic stress disorder Establ ished Patient with Sarai Alberts [facility] 07/18/2024 Last Documented On 4 4:15PM ; [facility] [Z68.43 - Body mass index [B TN] 50.0-59.9, adult] assessment of body mass index Medical Established Patient with Denny Lomeli [facility] 07/18/2024 Last Documented On 4 2:09PM ; [facility] Bipolar I disorder, most rec ent episode, depressed - mild Medical Established Patient with Denny Armani RACKING TECHNICIAN 07/18/2024 Last Documented On 4 2:09PM ; [facility] Caries Medical Established Patient with Denny Armani RACKING TECHNICIAN 07/18/2024 Last Documented On 4 2:09PM ; [facility] Encounter for Immunization Medical Estab lished Patient with Denny Armani RACKING TECHNICIAN 07/18/2024 Last Documented On 4 2:09PM ; [facility] Type 2 diabetes mellitus wit hout complication Medical Established Patient with Denny Armani RACKING TECHNICIAN 07/18/2024 Last Documented On 4 2:09PM ; [facility] Attention-deficit hyperactivity disorder Established Patient with Kinga Short [facility] 06/13/2024 Last Documented On 4 3:28PM ; [facility] Bipolar I disorder, most rec ent episode, depressed - mild BH Established Patient with Kinga Short [facility] 06/13/2024 Last Documented On 4 3:28PM ; [facility] Post-traumatic stress disorder BH Establ ished Patient with Kinga Short [facility] 06/13/2024 Last Documented On 4 3:28PM ; [facility] [E11.9 - Type 2 diabetes gloria litus without complications] type 2 diabetes mellitus Medical Established Patient with Denny Armani RACKING TECHNICIAN 06/13/2024 Last Documented On 4 7:36PM ; [facility] [F41.1 - Generalized anxiety disorder] generalized anxiety disorder Medical Established Patient with Denny Armani RACKING TECHNICIAN 06/13/2024 Last Documented On 4 7:36PM ; [facility] [I10 - Essential (primary) hypertension] essential hypertension Medical Established Patient with Denny Armani RACKING TECHNICIAN 06/13/2024 Last Documented On 4 7:36PM ; [facility] [N94.6 - Dysmenorrhea, unspe cified] dysmenorrhea Medical Established Patient with Denny Armani RACKING TECHNICIAN 06/13/2024 Last Documented On 4 7:36PM ; [facility] [Z68.43 - Body mass index [B TN] 50.0-59.9, adult] assessment of body mass index Medical Established Patient with Denny Lomeli RACKING TECHNICIAN 06/13/2024 Last Documented On 4 7:36PM ; [facility] Encounter for Immunization Medical Estab lished Patient with Denny Lomeli RACKING TECHNICIAN 06/13/2024 Last Documented On 4 7:36PM ; [facility] Venipuncture was performed Medical Estab lished Patient with Denny Lomeli RACKING TECHNICIAN 06/13/2024 Last Documented On 4 7:36PM ; [facility] Attention-deficit hyperactivity disorder Established Patient with Kinga Short [facility] 04/10/2024 Last Documented On 4 10:10AM ; [facility] Bipolar I disorder, most rec ent episode, depressed - mild Established Patient with Kinga Short [facility] 04/10/2024 Last Documented On 4 10:10AM ; [facility] Post-traumatic stress disorder Establ ished Patient with Kinga Short [facility] 04/10/2024 Last Documented On 4 10:10AM ; [facility] [D64.9 - Anemia, unspecified] anemia Med ical Established Patient with Denny Lomeli RACKING TECHNICIAN 04/10/2024 Last Documented On 4 6:51PM ; [facility] [Z68.43 - Body mass index [B TN] 50.0-59.9, adult] assessment of body mass index Medical Established Patient with Denny Lomeli RACKING TECHNICIAN 04/10/2024 Last Documented On 4 6:51PM ; [facility] Bipolar affective disorder, current episode depressed, mild Established Patient with Kinga Short [facility] 01/17/2024 Last Documented On 4 5:16PM ; [facility] Post-traumatic stress disorder Establ ished Patient with Kinga Short [facility] 01/17/2024 Last Documented On 4 5:16PM ; [facility] Undifferentiated attention d eficit disorder Established Patient with Kinga Short [facility] 01/17/2024 Last Documented On 4 5:16PM ; [facility] Visit for: screening for disorder BH Est ablished Patient with Kinga Short [facility] 01/17/2024 Last Documented On 4 5:16PM ; [facility] [Z68.43 - Body mass index [B TN] 50.0-59.9, adult] assessment of body mass index Medical Established Patient with Denny Lomeli RACKING TECHNICIAN 01/17/2024 Last Documented On 4 7:50PM ; [facility] Attention-deficit hyperactivity disorder Medical Established Patient with Denny Lomeli RACKING TECHNICIAN 01/17/2024 Last Documented On 4 7:50PM ; [facility] Diabetes Risk Test Score was three score 01/17/2024 Medical Established Patient with Denny Lomeli RACKING TECHNICIAN 01/17/2024 Last Documented On 4 7:50PM ; [facility] Visit for: screening for STD Medical Est ablished Patient with Denny Lomeli RACKING TECHNICIAN 01/17/2024 Last Documented On 4 7:50PM ; [facility] [Z68.32 - Body mass index [B TN] 32.0-32.9, adult] assessment of body mass index Medical Established Patient with Denny Lomeli RACKING TECHNICIAN 05/10/2023 Last Documented On 3 6:01PM ; [facility] Borderline personality disorder Medical Established Patient with Denny Lomeli RACKING TECHNICIAN 05/10/2023 Last Documented On 3 6:01PM ; [facility] Screening for diabetes mellitus Medical Established Patient with Denny Lomeli RACKING TECHNICIAN 05/10/2023 Last Documented On 3 6:01PM ; [facility] Assessment of body mass index Medical Es tablished Patient with Denny Lomeli RACKING TECHNICIAN 08/12/2022 Last Documented On 2 2:45PM ; [facility] Bipolar affective disorder, current episode manic [facility]22 Last Documented On 2 3:22PM ; [facility] Bipolar affective disorder, current episode manic BH Established [facility] Belkis [facility]arde [facility] 06/15/2022 Last Documented On 2 2:28PM ; [facility] Bipolar affective disorder, current episode depressed, severe with psychosis [facility] with Belkisdionna Velarde [facility] 06/15/2022 Last Documented On 2 3:29PM ; [facility] Assessment of body mass inde x [Body mass index [BMI] 50.0-59.9, adult] Open Access - Established with Leah Monique RACKING TECHNICIAN 06/15/2022 Last Documented On 2 9:36AM ; [facility] Bipolar I disorder, most rec ent episode, manic Open Access - Established with Leah Monique RACKING TECHNICIAN 06/15/2022 Last Documented On 2 9:36AM ; [facility] Post-traumatic stress disorder Establ ished Patient with Belkisdionna Velarde [facility] 06/08/2022 Last Documented On 2 3:20PM ; [facility] No cough Medical Established Patient with Denny Armani RACKING TECHNICIAN 06/08/2022 Last Documented On 2 4:04PM ; [facility] Z68.43 - Body mass index [BM I] 50.0-59.9, adult Medical Established Patient with Denny Armani RACKING TECHNICIAN 06/08/2022 Last Documented On 2 4:04PM ; [facility] Borderline personality disor kyree Pt reported hx of sx/dx Established Patient with Belkisdionna Velarde [facility] 05/27/2022 Last Documented On 2 4:08PM ; [facility] Assessment of body mass inde x [Body mass index [BMI] 50.0-59.9, adult] Open Access - Established with Leah Monique RACKING TECHNICIAN 05/27/2022 Last Documented On 2 7:41PM ; [facility] Diabetes Risk Test Score was three score 05/27/2022 Open Access - Established with Leah Monique RACKING TECHNICIAN 05/27/2022 Last Documented On 2 7:41PM ; [facility] Bipolar I disorder, most rec ent episode, manic Established Patient with Eufemia Mcneil [facility] 07/15/2021 Last Documented On 1 1:35AM ; [facility] Borderline personality disorder Estab lished Patient with Eufemia Mcneil [facility] 07/15/2021 Last Documented On 1 1:35AM ; [facility] Post-traumatic stress disorder Establ ished Patient with Eufemia Mcneil [facility] 07/15/2021 Last Documented On 1 1:35AM ; [facility] Assessment of visit for: lloyd strange for human immunodeficiency virus Medical Established Patient with Denny Armani RACKING TECHNICIAN 07/15/2021 Last Documented On 1 2:56PM ; [facility] Nicotine dependence Medical Established Patient with Denny Armani RACKING TECHNICIAN 07/15/2021 Last Documented On 1 2:56PM ; [facility] Tachycardia Medical Established Patient with Denny Armani RACKING TECHNICIAN 07/15/2021 Last Documented On 1 2:56PM ; [facility] Z68.43 - Body mass index [BM I] 50.0-59.9, adult Medical Established Patient with Denny Armani RACKING TECHNICIAN 07/15/2021 Last Documented On 1 2:56PM ; [facility] Bipolar I disorder, most rec ent episode, manic Established Patient with Kinga Short [facility] 06/17/2021 Last Documented On 1 10:17AM ; [facility] Borderline personality disor kyree per patient reported history Established Patient with Kinga Short [facility] 06/17/2021 Last Documented On 1 10:17AM ; [facility] Nicotine dependence Established Patient with Kinga Short [facility] 06/17/2021 Last Documented On 1 10:17AM ; [facility] Post-traumatic stress disorder Establ ished Patient with Kinga Short [facility] 06/17/2021 Last Documented On 1 10:17AM ; [facility] Body mass index Medical Established Patient with Denny Armani RACKING TECHNICIAN 06/17/2021 Last Documented On 1 5:23PM ; [facility] Morbid obesity Medical Established Patient with Denny Armani RACKING TECHNICIAN 06/17/2021 Last Documented On 1 5:23PM ; [facility] Nicotine dependence uncomplicated Medica l Established Patient with Denny Armani RACKING TECHNICIAN 06/17/2021 Last Documented On 1 5:23PM ; [facility] Z68.42 - Body mass index [BM I] 45.0-49.9, adult Medical Established Patient with Denny Armani RACKING TECHNICIAN 06/17/2021 Last Documented On 1 5:23PM ; [facility] 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 disorders [employer] with Teagan Danielsarlyn zuniga RACKING TECHNICIAN 05/15/2021 Last Documented On 1 7:49AM ; [facility] Mood disorders, NOS per blaze ent reported history Established Patient with Kinga Short [facility] 04/23/2021 Last Documented On 1 7:15PM ; [facility] Post-traumatic stress disorder Establ ished Patient with Kinga Short [facility] 04/23/2021 Last Documented On 1 7:15PM ; [facility] Morbid obesity Medical Established Patient with Denny Armani RACKING TECHNICIAN 04/23/2021 Last Documented On 1 12:31PM ; [facility] Otitis externa Medical Established Patient with Denny Armani RACKING TECHNICIAN 04/23/2021 Last Documented On 1 12:31PM ; [facility] Z68.42 - Body mass index [BM I] 45.0-49.9, adult Medical Established Patient with Denny Armani RACKING TECHNICIAN 04/23/2021 Last Documented On 1 12:31PM ; [facility] Post-traumatic stress disorder Establ ished Patient with Kinga Short [facility] 04/01/2021 Last Documented On 1 10:05PM ; [facility] Morbid obesity Medical Established Patient with Denny Armani RACKING TECHNICIAN 04/01/2021 Last Documented On 1 4:45PM ; [facility] Z68.42 - Body mass index [BM I] 45.0-49.9, adult Medical Established Patient with Denny Armani RACKING TECHNICIAN 04/01/2021 Last Documented On 1 4:45PM ; [facility] Post-traumatic stress disorder Establ ished Patient with Kinga Short [facility] 03/17/2021 Last Documented On 1 11:59AM ; [facility] Assessment of visit for: lloyd strange for human immunodeficiency virus Medical New Patient with Denny Lomeli RACKING TECHNICIAN 03/17/2021 Last Documented On 1 4:06PM ; [facility] Diabetes Risk Test Score was one score 03/17/2021 Medical New Patient with Denny Lomeli RACKING TECHNICIAN 03/17/2021 Last Documented On 1 4:06PM ; [facility] Hypertension Medical New Patient with Denny doherty RACKING TECHNICIAN 03/17/2021 Last Documented On 1 4:06PM ; [facility] Morbid obesity Medical New Patient with Denny doherty RACKING TECHNICIAN 03/17/2021 Last Documented On 1 4:06PM ; [facility] Post-traumatic stress disorder Medical New Patie nt with Denny Lomeli RACKING TECHNICIAN 03/17/2021 Last Documented On 1 4:06PM ; [facility] Z68.42 - Body mass index [BM I] 45.0-49.9, adult Medical New Patient with Denny Lomeli RACKING TECHNICIAN 03/17/2021 Last Documented On 1 4:06PM ; [facility] Work Phone: [phone]) 786-139310-07-2024 Evaluation note Includes: Assessments for all patient encounters Findings Encounter Date [D50.9 - Iron deficiency ane eduardo, unspecified] iron deficiency anemia Chart Update with Denny Lomeli RACKING TECHNICIAN 07/29/2024 Last Documented On 4 2:06PM ; [facility] Attention-deficit hyperactivity disorder Established Patient with Sarai Alberts [facility] 07/18/2024 Last Documented On 4 4:15PM ; [facility] Bipolar I disorder, most rec ent episode, depressed - mild Established Patient with Sarai Alberts [facility] 07/18/2024 Last Documented On 4 4:15PM ; [facility] Nicotine dependence Established Patient with Sarai Alberts [facility] 07/18/2024 Last Documented On 4 4:15PM ; [facility] Post-traumatic stress disorder Establ ished Patient with Sarai Alberts [facility] 07/18/2024 Last Documented On 4 4:15PM ; [facility] [Z68.43 - Body mass index [B TN] 50.0-59.9, adult] assessment of body mass index Medical Established Patient with Dennyartem Landonen RACKING TECHNICIAN 07/18/2024 Last Documented On 4 1:56PM ; [facility] Bipolar I disorder, most rec ent episode, depressed - mild Medical Established Patient with Denny Armani RACKING TECHNICIAN 07/18/2024 Last Documented On 4 1:56PM ; [facility] Caries Medical Established Patient with Denny Armani RACKING TECHNICIAN 07/18/2024 Last Documented On 4 1:56PM ; [facility] Encounter for Immunization Medical Estab lished Patient with Denny Armani RACKING TECHNICIAN 07/18/2024 Last Documented On 4 1:56PM ; [facility] Type 2 diabetes mellitus wit hout complication Medical Established Patient with Denny Armani RACKING TECHNICIAN 07/18/2024 Last Documented On 4 1:56PM ; [facility] Attention-deficit hyperactivity disorder Established Patient with Kinga Short [facility] 06/13/2024 Last Documented On 4 3:28PM ; [facility] Bipolar I disorder, most rec ent episode, depressed - mild Established Patient with Kinga Short [facility] 06/13/2024 Last Documented On 4 3:28PM ; [facility] Post-traumatic stress disorder Establ ished Patient with Kinga Short [facility] 06/13/2024 Last Documented On 4 3:28PM ; [facility] [E11.9 - Type 2 diabetes gloria litus without complications] type 2 diabetes mellitus Medical Established Patient with Denny Armani RACKING TECHNICIAN 06/13/2024 Last Documented On 4 7:36PM ; [facility] [F41.1 - Generalized anxiety disorder] generalized anxiety disorder Medical Established Patient with Denny Armani RACKING TECHNICIAN 06/13/2024 Last Documented On 4 7:36PM ; [facility] [I10 - Essential (primary) hypertension] essential hypertension Medical Established Patient with Denny Lomeli RACKING TECHNICIAN 06/13/2024 Last Documented On 4 7:36PM ; [facility] [N94.6 - Dysmenorrhea, unspe cified] dysmenorrhea Medical Established Patient with Denny Lomeli RACKING TECHNICIAN 06/13/2024 Last Documented On 4 7:36PM ; [facility] [Z68.43 - Body mass index [B TN] 50.0-59.9, adult] assessment of body mass index Medical Established Patient with Denny Lomeli RACKING TECHNICIAN 06/13/2024 Last Documented On 4 7:36PM ; [facility] Encounter for Immunization Medical Estab lished Patient with Denny Lomeli RACKING TECHNICIAN 06/13/2024 Last Documented On 4 7:36PM ; [facility] Venipuncture was performed Medical Estab lished Patient with Denny Lomeli RACKING TECHNICIAN 06/13/2024 Last Documented On 4 7:36PM ; [facility] Attention-deficit hyperactivity disorder Established Patient with Kinga Short LISWS 04/10/2024 Last Documented On 4 10:10AM ; [facility] Bipolar I disorder, most rec ent episode, depressed - mild BH Established Patient with Kinga Short LISWS 04/10/2024 Last Documented On 4 10:10AM ; [facility] Post-traumatic stress disorder Establ ished Patient with Kinga Short LISWS 04/10/2024 Last Documented On 4 10:10AM ; [facility] [D64.9 - Anemia, unspecified] anemia Med ical Established Patient with Denny Lomeli RACKING TECHNICIAN 04/10/2024 Last Documented On 4 6:51PM ; [facility] [Z68.43 - Body mass index [B TN] 50.0-59.9, adult] assessment of body mass index Medical Established Patient with Denny Lomeli RACKING TECHNICIAN 04/10/2024 Last Documented On 4 6:51PM ; [facility] Bipolar affective disorder, current episode depressed, mild Established Patient with Kinga Short LISWS 01/17/2024 Last Documented On 4 5:16PM ; [facility] Post-traumatic stress disorder BH Establ ished Patient with Kinga Short LISWS 01/17/2024 Last Documented On 4 5:16PM ; [facility] Undifferentiated attention d eficit disorder Established Patient with Kinga Short LISWS 01/17/2024 Last Documented On 4 5:16PM ; [facility] Visit for: screening for disorder BH Est ablished Patient with Kinga Short LISWS 01/17/2024 Last Documented On 4 5:16PM ; [facility] [Z68.43 - Body mass index [B TN] 50.0-59.9, adult] assessment of body mass index Medical Established Patient with Denny Lomeli RACKING TECHNICIAN 01/17/2024 Last Documented On 4 7:50PM ; [facility] Attention-deficit hyperactivity disorder Medical Established Patient with Dennyartem Lomeli RACKING TECHNICIAN 01/17/2024 Last Documented On 4 7:50PM ; [facility] Diabetes Risk Test Score was three score 01/17/2024 Medical Established Patient with Dennyartem Landonen RACKING TECHNICIAN 01/17/2024 Last Documented On 4 7:50PM ; [facility] Visit for: screening for STD Medical Est ablished Patient with Dennyartem Lomeli RACKING TECHNICIAN 01/17/2024 Last Documented On 4 7:50PM ; [facility] [Z68.32 - Body mass index [B TN] 32.0-32.9, adult] assessment of body mass index Medical Established Patient with Dennyartem Lomeli RACKING TECHNICIAN 05/10/2023 Last Documented On 3 6:01PM ; [facility] Borderline personality disorder Medical Established Patient with Denny Armani RACKING TECHNICIAN 05/10/2023 Last Documented On 3 6:01PM ; [facility] Screening for diabetes mellitus Medical Established Patient with Denny Armani RACKING TECHNICIAN 05/10/2023 Last Documented On 3 6:01PM ; [facility] Assessment of body mass index Medical Es tablished Patient with Dennyartem Landonen RACKING TECHNICIAN 08/12/2022 Last Documented On 2 2:45PM ; [facility] Bipolar affective disorder, current episode manic [facility] with Belkisdionna Velarde LPCC-S 06/16/2022 Last Documented On 2 3:22PM ; [facility] Bipolar affective disorder, current episode manic Established Patient with Belkisdionna Velarde LPCC-S 06/15/2022 Last Documented On 2 2:28PM ; [facility] Bipolar affective disorder, current episode depressed, severe with psychosis [facility] with Belkisdionna Velarde LPCC-S 06/15/2022 Last Documented On 2 3:29PM ; [facility] Assessment of body mass inde x [Body mass index [BMI] 50.0-59.9, adult] Open Access - Established with Leah Monique RACKING TECHNICIAN 06/15/2022 Last Documented On 2 9:36AM ; [facility] Bipolar I disorder, most rec ent episode, manic Open Access - Established with Leah Monique RACKING TECHNICIAN 06/15/2022 Last Documented On 2 9:36AM ; [facility] Post-traumatic stress disorder Establ ished Patient with Belkisdionna Velarde LPCC-S 06/08/2022 Last Documented On 2 3:20PM ; [facility] No cough Medical Established Patient with Denny Armani RACKING TECHNICIAN 06/08/2022 Last Documented On 2 4:04PM ; [facility] Z68.43 - Body mass index [BM I] 50.0-59.9, adult Medical Established Patient with Denny Armani RACKING TECHNICIAN 06/08/2022 Last Documented On 2 4:04PM ; [facility] Borderline personality disor kyree Pt reported hx of sx/dx Established Patient with Belkisdionna Velarde LPCC-S 05/27/2022 Last Documented On 2 4:08PM ; [facility] Assessment of body mass inde x [Body mass index [BMI] 50.0-59.9, adult] Open Access - Established with Leah Monique RACKING TECHNICIAN 05/27/2022 Last Documented On 2 7:41PM ; [facility] Diabetes Risk Test Score was three score 05/27/2022 Open Access - Established with Leah Monique RACKING TECHNICIAN 05/27/2022 Last Documented On 2 7:41PM ; [facility] Bipolar I disorder, most rec ent episode, manic Established Patient with Eufemia Mcneil LPCC-S 07/15/2021 Last Documented On 1 1:35AM ; [facility] Borderline personality disorder Estab lished Patient with Eufemia Mcneil LPCC-S 07/15/2021 Last Documented On 1 1:35AM ; [facility] Post-traumatic stress disorder Establ ished Patient with Eufemia Mcneil LPCC-S 07/15/2021 Last Documented On 1 1:35AM ; [facility] Assessment of visit for: lloyd strange for human immunodeficiency virus Medical Established Patient with Denny Armani RACKING TECHNICIAN 07/15/2021 Last Documented On 1 2:56PM ; [facility] Nicotine dependence Medical Established Patient with Denny Armani RACKING TECHNICIAN 07/15/2021 Last Documented On 1 2:56PM ; [facility] Tachycardia Medical Established Patient with Denny Armani RACKING TECHNICIAN 07/15/2021 Last Documented On 1 2:56PM ; [facility] Z68.43 - Body mass index [BM I] 50.0-59.9, adult Medical Established Patient with Denny Armani RACKING TECHNICIAN 07/15/2021 Last Documented On 1 2:56PM ; [facility] Bipolar I disorder, most rec ent episode, manic Established Patient with Kinga Short LISWS 06/17/2021 Last Documented On 1 10:17AM ; [facility] Borderline personality disor kyree per patient reported history Established Patient with Kinga Short LISWS 06/17/2021 Last Documented On 1 10:17AM ; [facility] Nicotine dependence Established Patient with Kinga Short LISWS 06/17/2021 Last Documented On 1 10:17AM ; [facility] Post-traumatic stress disorder Establ ished Patient with Kinga Short LISWS 06/17/2021 Last Documented On 1 10:17AM ; [facility] Body mass index Medical Established Patient with Denny Armani RACKING TECHNICIAN 06/17/2021 Last Documented On 1 5:23PM ; [facility] Morbid obesity Medical Established Patient with Denny Armani RACKING TECHNICIAN 06/17/2021 Last Documented On 1 5:23PM ; [facility] Nicotine dependence uncomplicated Medica l Established Patient with Denny Armani RACKING TECHNICIAN 06/17/2021 Last Documented On 1 5:23PM ; [facility] Z68.42 - Body mass index [BM I] 45.0-49.9, adult Medical Established Patient with Denny Armani RACKING TECHNICIAN 06/17/2021 Last Documented On 1 5:23PM ; [facility] 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 disorders 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 RACKING TECHNICIAN 05/15/2021 Last Documented On 1 7:49AM ; [facility] Mood disorders, NOS per blaze ent reported history Established Patient with Kinga Short LISWS 04/23/2021 Last Documented On 1 7:15PM ; [facility] Post-traumatic stress disorder Establ ished Patient with Kinga Short LISWS 04/23/2021 Last Documented On 1 7:15PM ; [facility] Morbid obesity Medical Established Patient with Denny Armani RACKING TECHNICIAN 04/23/2021 Last Documented On 1 12:31PM ; [facility] Otitis externa Medical Established Patient with Denny Armani RACKING TECHNICIAN 04/23/2021 Last Documented On 1 12:31PM ; [facility] Z68.42 - Body mass index [BM I] 45.0-49.9, adult Medical Established Patient with Denny Armani RACKING TECHNICIAN 04/23/2021 Last Documented On 1 12:31PM ; [facility] Post-traumatic stress disorder Establ ished Patient with Kinga Short LISWS 04/01/2021 Last Documented On 1 10:05PM ; [facility] Morbid obesity Medical Established Patient with Denny Lomeli RACKING TECHNICIAN 04/01/2021 Last Documented On 1 4:45PM ; [facility] Z68.42 - Body mass index [BM I] 45.0-49.9, adult Medical Established Patient with Dennyartem Lomeli RACKING TECHNICIAN 04/01/2021 Last Documented On 1 4:45PM ; [facility] Post-traumatic stress disorder BH Establ ished Patient with Kinga Short LISWS 03/17/2021 Last Documented On 1 11:59AM ; [facility] Assessment of visit for: lloyd strange for human immunodeficiency virus Medical New Patient with Denny Armani RACKING TECHNICIAN 03/17/2021 Last Documented On 1 4:06PM ; [facility] Diabetes Risk Test Score was one score 03/17/2021 Medical New Patient with Denny Lomeli RACKING TECHNICIAN 03/17/2021 Last Documented On 1 4:06PM ; [facility] Hypertension Medical New Patient with Denny Maryjo doherty RACKING TECHNICIAN 03/17/2021 Last Documented On 1 4:06PM ; [facility] Morbid obesity Medical New Patient with Denny Maryjo zamoraen RACKING TECHNICIAN 03/17/2021 Last Documented On 1 4:06PM ; [facility] Post-traumatic stress disorder Medical New Patie nt with Dennyartem Lomeli RACKING TECHNICIAN 03/17/2021 Last Documented On 1 4:06PM ; [facility] Z68.42 - Body mass index [BM I] 45.0-49.9, adult Medical New Patient with Dennyartem Lomeli RACKING TECHNICIAN 03/17/2021 Last Documented On 1 4:06PM ; [facility] Work Phone: 1(428) 234-906310-07-2024 Progress note* Progress note Date Encounter Last Documented by 07/29/2024 Chart Update Last documented on 07/31/2024; 2:06 PM, Denny Lomeli CNP; [facility] Active Problems & Conditions - F90.9 - Attention-deficit Hyperactivity Disorder - F31.31 - Bipolar I Disorder, Most Recent Episode, Depressed Mild - E11.9 - Diabetes Mellitus Type 2 Without Complication - N94.6 - Dysmenorrhea - F43.10 - Post-traumatic Stress Disorder Current Medication - Alcohol Pads 70% use to cleanse skin prior to checking blood sugars, 90 days, 3 refills - ARIPiprazole 5 MG Oral Tablet take 1 tablet by mouth once daily, 30 days, 5 refills - Atorvastatin Calcium 20 MG Oral Tablet take 1 tablet by mouth once daily at bedtime, 30 days, 5 refills - Blood Glucose System Ren Kit use to check sugars once daily (use what is covered), 30 days, 0 refills - busPIRone HCl 10 MG Oral Tablet take 1 tablet by mouth twice daily (d/c 5 mg rx), 30 days, 5 refills - CareSens Lancets Miscellaneous use to check sugars once daily (dispense what is covered), 90 days, 3 refills - Colace 100 MG Oral Capsule take 1 capsule by mouth once daily at bedtime as needed for constipation, 30 days, 5 refills - [facility] Iron 325 (65 Fe) MG Oral Tablet take 1 tablet by mouth once daily, 30 days, 5 refills - Intuniv 1 MG Oral Tablet Extended Release 24 Hour take 1 tablet by mouth once daily at bedtime, 30 days, 5 refills - Januvia 50 MG Oral Tablet take 1 tablet by mouth once daily, 30 days, 5 refills - lamoTRIgine 100 MG Oral Tablet take 1 tablet by mouth once daily, 30 days, 5 refills - Lisinopril 5 MG Oral Tablet take 1 tablet by mouth once daily, 30 days, 5 refills - MiraLax 17 GM/SCOOP Oral Powder mix 1 scoop with 8 ounces once daily, 30 days, 2 refills - Narcan 4 MG/0.1ML Nasal Liquid spray in nostril for symptoms of overdose , may repeat in 2 minutes if symptoms persist, 1 days, 0 refills - Mad Mimi Ultra In Vitro Strip USE ONE TEST STRIP TO CHECK BLOOD SUGARS ONCE DAILY, 90 days, 3 refills - Prazosin HCl 1 MG Oral Capsule take 1 capsule by mouth twice daily, 30 days, 5 refills - SEROquel 50 MG Oral Tablet take 1 tablet by mouth once daily at bedtime (d/c trazodone), 30 days, 1 refills - Sertraline HCl 50 MG Oral Tablet take 1 tablet by mouth once daily, 30 days, 5 refills - Slynd 4 MG Oral Tablet take 1 tablet by mouth at the same time everyday to help regulate your period, 28 days, 2 refills Past Medical/Surgical History Reported: No Safety Measures. Has sex without a condom. Medical: No previous hospitalizations. Chronic illness and Sexually transmitted infection Partners sexually transmitted infection status known. Immunization History: Recent immunization for flu. Exposure: Exposure to COVID-19. : Previously 1 time(s) and para having 0 live (s). Not planning a in the next year. Legal Documents: Consent form on file for procedure. Diagnoses: Polycystic Ovarian Syndrome (PCOS). Migraine headache. Psychiatric disorders biopolar disorder Anxiety disorder POTS. Procedural: - Insertion of ear pressure equalization tubes in both ears Surgical: - Tonsillectomy - Tonsillectomy with adenoidectomy Allergies - Abilify Reaction: groggy - Augmentin Reaction: Shock - Metformin Reaction: Nausea, Vomiting - NO KNOWN ENVIRONMENTAL ALLERGIES - NO KNOWN FOOD ALLERGIES - Sertraline Reaction: slow/groggy - Trazodone Hydrochloride Reaction: Panic attack Family History Paternal: Systemic hypertension Oncologic disorder Maternal: Systemic hypertension Epilepsy and recurrent seizures Psychiatric disorders Oncologic disorder Fraternal: Psychiatric disorders Assessment - D50.9 - Iron deficiency anemia, unspecified Plan StartCited- Iron deficiency anemia, unspecified Lab: Iron and TIBC Lab: CBC With Differential/Platelet EndCited Care Team - Denny Lomeli CNP [facility]10-01-2024 Progress note* Progress note Date Encounter Last Documented by 07/23/2024 Chart Update Last documented on 07/29/2024; 12:06 PM, Denny Lomeli CNP; [facility] Active Problems & Conditions - F90.9 - Attention-deficit Hyperactivity Disorder - F31.31 - Bipolar I Disorder, Most Recent Episode, Depressed Mild - E11.9 - Diabetes Mellitus Type 2 Without Complication - N94.6 - Dysmenorrhea - F43.10 - Post-traumatic Stress Disorder Current Medication - Alcohol Pads 70% use to cleanse skin prior to checking blood sugars, 90 days, 3 refills - ARIPiprazole 5 MG Oral Tablet take 1 tablet by mouth once daily, 30 days, 5 refills - Atorvastatin Calcium 20 MG Oral Tablet take 1 tablet by mouth once daily at bedtime, 30 days, 5 refills - Blood Glucose System Ren Kit use to check sugars once daily (use what is covered), 30 days, 0 refills - busPIRone HCl 10 MG Oral Tablet take 1 tablet by mouth twice daily (d/c 5 mg rx), 30 days, 5 refills - CareSens Lancets Miscellaneous use to check sugars once daily (dispense what is covered), 90 days, 3 refills - Colace 100 MG Oral Capsule take 1 capsule by mouth once daily at bedtime as needed for constipation, 30 days, 5 refills - [facility] Iron 325 (65 Fe) MG Oral Tablet take 1 tablet by mouth once daily, 30 days, 5 refills - Intuniv 1 MG Oral Tablet Extended Release 24 Hour take 1 tablet by mouth once daily at bedtime, 30 days, 5 refills - Januvia 50 MG Oral Tablet take 1 tablet by mouth once daily, 30 days, 5 refills - lamoTRIgine 100 MG Oral Tablet take 1 tablet by mouth once daily, 30 days, 5 refills - Lisinopril 5 MG Oral Tablet take 1 tablet by mouth once daily, 30 days, 5 refills - MiraLax 17 GM/SCOOP Oral Powder mix 1 scoop with 8 ounces once daily, 30 days, 2 refills - Narcan 4 MG/0.1ML Nasal Liquid spray in nostril for symptoms of overdose , may repeat in 2 minutes if symptoms persist, 1 days, 0 refills - Mad Mimi Ultra In Vitro Strip USE ONE TEST STRIP TO CHECK BLOOD SUGARS ONCE DAILY, 90 days, 3 refills - Prazosin HCl 1 MG Oral Capsule take 1 capsule by mouth twice daily, 30 days, 5 refills - SEROquel 50 MG Oral Tablet take 1 tablet by mouth once daily at bedtime (d/c trazodone), 30 days, 1 refills - Sertraline HCl 50 MG Oral Tablet take 1 tablet by mouth once daily, 30 days, 5 refills - Slynd 4 MG Oral Tablet take 1 tablet by mouth at the same time everyday to help regulate your period, 28 days, 2 refills Past Medical/Surgical History Reported: No Safety Measures. Has sex without a condom. Medical: No previous hospitalizations. Chronic illness and Sexually transmitted infection Partners sexually transmitted infection status known. Immunization History: Recent immunization for flu. Exposure: Exposure to COVID-19. : Previously 1 time(s) and para having 0 live (s). Not planning a in the next year. Legal Documents: Consent form on file for procedure. Diagnoses: Polycystic Ovarian Syndrome (PCOS). Migraine headache. Psychiatric disorders biopolar disorder Anxiety disorder POTS. Procedural: - Insertion of ear pressure equalization tubes in both ears Surgical: - Tonsillectomy - Tonsillectomy with adenoidectomy Allergies - Abilify Reaction: groggy - Augmentin Reaction: Shock - Metformin Reaction: Nausea, Vomiting - NO KNOWN ENVIRONMENTAL ALLERGIES - NO KNOWN FOOD ALLERGIES - Sertraline Reaction: slow/groggy - Trazodone Hydrochloride Reaction: Panic attack Family History Paternal: Systemic hypertension Oncologic disorder Maternal: Systemic hypertension Epilepsy and recurrent seizures Psychiatric disorders Oncologic disorder Fraternal: Psychiatric disorders Care Team - Denny Lomeli CNP [facility]09-30-2024 History general Narrative - Reported Includes: Medical History in patient's chart Description Last Updated No Safety Measures 07/22/2024 Last Documented On 4 4:15PM ; [facility] POTS 04/10/2024 Last Documented On 4 6:51PM ; [facility] 0 previous live (s) 01/17/2024 Last Documented On 4 7:50PM ; [facility] Previously 1 time(s) 01/17/2024 Last Documented On 4 7:50PM ; [facility] Recent immunization for flu 01/17/2024 Last Documented On 4 7:50PM ; [facility] Has sex without a condom 06/08/2022 Last Documented On 2 4:04PM ; [facility] Not planning to have a baby in the next 12 months 06/08/2022 Last Documented On 2 4:04PM ; [facility] Partners sexually transmitted infection status known 06/08/2022 Last Documented On 2 4:04PM ; [facility] No previous hospitalizations 06/08/2022 Last Documented On 2 4:04PM ; [facility] Chronic illness 05/17/2021 Last Documented On 1 7:49AM ; [facility] Exposure to COVID-19 04/23/2021 Last Documented On 1 12:31PM ; [facility] History of gynecologic disorder 03/17/20 21 Last Documented On 1 4:06PM ; [facility] History of Polycystic Ovarian Syndrome ( PCOS) 03/17/2021 Last Documented On 1 4:06PM ; [facility] History of anxiety disorder NOS 03/17/20 21 Last Documented On 1 4:06PM ; [facility] History of migraine headache 03/17/2021 Last Documented On 1 4:06PM ; [facility] History of psychiatric disorders biopola r disorder 03/17/2021 Last Documented On 1 4:06PM ; [facility] Work Phone: 1(992) 795-152909-30-2024 History general Narrative - Reported Includes: Medical History in patient's chart Description Last Updated No Safety Measures 07/22/2024 Last Documented On 4 4:15PM ; [facility] Consent form on file for procedure 07/18 Last Documented On 4 1:56PM ; [facility] POTS 04/10/2024 Last Documented On 4 6:51PM ; [facility] 0 previous live (s) 01/17/2024 Last Documented On 4 7:50PM ; [facility] Previously 1 time(s) 01/17/2024 Last Documented On 4 7:50PM ; [facility] Recent immunization for flu 01/17/2024 Last Documented On 4 7:50PM ; [facility] Has sex without a condom 06/08/2022 Last Documented On 2 4:04PM ; [facility] Not planning to have a baby in the next 12 months 06/08/2022 Last Documented On 2 4:04PM ; [facility] Partners sexually transmitted infection status known 06/08/2022 Last Documented On 2 4:04PM ; [facility] No previous hospitalizations 06/08/2022 Last Documented On 2 4:04PM ; [facility] Chronic illness 05/17/2021 Last Documented On 1 7:49AM ; [facility] Exposure to COVID-19 04/23/2021 Last Documented On 1 12:31PM ; [facility] History of gynecologic disorder 03/17/20 21 Last Documented On 1 4:06PM ; [facility] History of Polycystic Ovarian Syndrome ( PCOS) 03/17/2021 Last Documented On 1 4:06PM ; [facility] History of anxiety disorder NOS 03/17/20 21 Last Documented On 1 4:06PM ; [facility] History of migraine headache 03/17/2021 Last Documented On 1 4:06PM ; [facility] History of psychiatric disorders biopola r disorder 03/17/2021 Last Documented On 1 4:06PM ; [facility] Work Phone: 1(604) 617-962809-30-2024 History general Narrative - Reported Includes: Medical History in patient's chart Description Last Updated No Safety Measures 07/22/2024 Last Documented On 4 4:15PM ; [facility] Consent form on file for procedure 07/18 Last Documented On 4 1:56PM ; [facility] POTS 04/10/2024 Last Documented On 4 6:51PM ; [facility] 0 previous live (s) 01/17/2024 Last Documented On 4 7:50PM ; [facility] Previously 1 time(s) 01/17/2024 Last Documented On 4 7:50PM ; [facility] Recent immunization for flu 01/17/2024 Last Documented On 4 7:50PM ; [facility] Has sex without a condom 06/08/2022 Last Documented On 2 4:04PM ; [facility] Not planning to have a baby in the next 12 months 06/08/2022 Last Documented On 2 4:04PM ; [facility] sexually transmitted infection status known 06/08/2022 Last Documented On 2 4:04PM ; [facility] No previous hospitalizations 06/08/2022 Last Documented On 2 4:04PM ; [facility] Chronic illness 05/17/2021 Last Documented On 1 7:49AM ; [facility] Exposure to COVID-19 04/23/2021 Last Documented On 1 12:31PM ; [facility] History of gynecologic disorder 03/17/20 21 Last Documented On 1 4:06PM ; [facility] History of Polycystic Ovarian Syndrome ( PCOS) 03/17/2021 Last Documented On 1 4:06PM ; [facility] History of anxiety disorder NOS 03/17/20 21 Last Documented On 1 4:06PM ; [facility] History of migraine headache 03/17/2021 Last Documented On 1 4:06PM ; [facility] History of psychiatric disorders biopola r disorder 03/17/2021 Last Documented On 1 4:06PM ; [facility] Work Phone: 1(498) 907-832709-30-2024 History general Narrative - Reported Includes: Medical History in patient's chart Description Last Updated No Safety Measures 07/22/2024 Last Documented On 4 4:15PM ; [facility] Consent form on file for procedure 07/18 Last Documented On 4 2:09PM ; [facility] POTS 04/10/2024 Last Documented On 4 6:51PM ; [facility] 0 previous live (s) 01/17/2024 Last Documented On 4 7:50PM ; [facility] Previously 1 time(s) 01/17/2024 Last Documented On 4 7:50PM ; [facility] Recent immunization for flu 01/17/2024 Last Documented On 4 7:50PM ; [facility] Has sex without a condom 06/08/2022 Last Documented On 2 4:04PM ; [facility] Not planning to have a baby in the next 12 months 06/08/2022 Last Documented On 2 4:04PM ; [facility] sexually transmitted infection status known 06/08/2022 Last Documented On 2 4:04PM ; [facility] No previous hospitalizations 06/08/2022 Last Documented On 2 4:04PM ; [facility] Chronic illness 05/17/2021 Last Documented On 1 7:49AM ; [facility] Exposure to COVID-19 04/23/2021 Last Documented On 1 12:31PM ; [facility] History of gynecologic disorder 03/17/20 21 Last Documented On 1 4:06PM ; [facility] History of Polycystic Ovarian Syndrome ( PCOS) 03/17/2021 Last Documented On 1 4:06PM ; [facility] History of anxiety disorder NOS 03/17/20 21 Last Documented On 1 4:06PM ; [facility] History of migraine headache 03/17/2021 Last Documented On 1 4:06PM ; [facility] History of psychiatric disorders biopola r disorder 03/17/2021 Last Documented On 1 4:06PM ; [facility] Work Phone: [phone]) 718-331209-30-2024 History general Narrative - Reported Includes: Medical History in patient's chart Description Last Updated No Safety Measures 07/22/2024 Last Documented On 4 4:15PM ; [facility] Consent form on file for procedure 09/26 /2024 Last Documented On 4 1:56PM ; [facility] POTS 04/10/2024 Last Documented On 4 6:51PM ; [facility] 0 previous live (s) 01/17/2024 Last Documented On 4 7:50PM ; [facility] Previously 1 time(s) 01/17/2024 Last Documented On 4 7:50PM ; [facility] Recent immunization for flu 01/17/2024 Last Documented On 4 7:50PM ; [facility] Has sex without a condom 06/08/2022 Last Documented On 2 4:04PM ; [facility] Not planning to have a baby in the next 12 months 06/08/2022 Last Documented On 2 4:04PM ; [facility] sexually transmitted infection status known 06/08/2022 Last Documented On 2 4:04PM ; [facility] No previous hospitalizations 06/08/2022 Last Documented On 2 4:04PM ; [facility] Chronic illness 05/17/2021 Last Documented On 1 7:49AM ; [facility] Exposure to COVID-19 04/23/2021 Last Documented On 1 12:31PM ; [facility] History of gynecologic disorder 03/17/20 21 Last Documented On 1 4:06PM ; [facility] History of Polycystic Ovarian Syndrome ( PCOS) 03/17/2021 Last Documented On 1 4:06PM ; [facility] History of anxiety disorder NOS 03/17/20 21 Last Documented On 1 4:06PM ; [facility] History of migraine headache 03/17/2021 Last Documented On 1 4:06PM ; [facility] History of psychiatric disorders biopola r disorder 03/17/2021 Last Documented On 1 4:06PM ; [facility] Work Phone: [phone]) 918-843109-26-2024 Evaluation note Includes: Assessments for all patient encounters Findings Encounter Date Attention-deficit hyperactiv ity disorder BH Established Patient with Sarai Alberts FULLERETTE 07/18/2024 Last Documented On 4 4:15PM ; [facility] Bipolar I disorder, most rec ent episode, depressed - mild BH Established Patient with Saraifiliberto Alberts FULLER[place]TE 07/18/2024 Last Documented On 4 4:15PM ; [facility] Nicotine dependence Established Patient with Sarai Alberts [place] 07/18/2024 Last Documented On 4 4:15PM ; [facility] Post-traumatic stress disorder Establ ished Patient with Sarai Alberts [place]TE 07/18/2024 Last Documented On 4 4:15PM ; [facility] [Z68.43 - Body mass index [B TN] 50.0-59.9, adult] assessment of body mass index Medical Established Patient with Dennyartem Landonen RACKING TECHNICIAN 07/18/2024 Last Documented On 4 5:46PM ; [facility] Bipolar I disorder, most rec ent episode, depressed - mild Medical Established Patient with Denny Armani RACKING TECHNICIAN 07/18/2024 Last Documented On 4 5:46PM ; [facility] Caries Medical Established Patient with Denny Armani RACKING TECHNICIAN 07/18/2024 Last Documented On 4 5:46PM ; [facility] Encounter for Immunization Medical Estab lished Patient with Denny Armani RACKING TECHNICIAN 07/18/2024 Last Documented On 4 5:46PM ; [facility] Type 2 diabetes mellitus wit hout complication Medical Established Patient with Denny Armani RACKING TECHNICIAN 07/18/2024 Last Documented On 4 5:46PM ; [facility] Attention-deficit hyperactivity disorder Established Patient with Kinga Short LISWS 06/13/2024 Last Documented On 4 3:28PM ; [facility] Bipolar I disorder, most rec ent episode, depressed - mild Established Patient with Kinga Short LISWS 06/13/2024 Last Documented On 4 3:28PM ; [facility] Post-traumatic stress disorder Establ ished Patient with Kinga Short LISWS 06/13/2024 Last Documented On 4 3:28PM ; [facility] [E11.9 - Type 2 diabetes gloria litus without complications] type 2 diabetes mellitus Medical Established Patient with Denny Lomeli RACKING TECHNICIAN 06/13/2024 Last Documented On 4 7:36PM ; [facility] [F41.1 - Generalized anxiety disorder] generalized anxiety disorder Medical Established Patient with Denny Lomeli RACKING TECHNICIAN 06/13/2024 Last Documented On 4 7:36PM ; [facility] [I10 - Essential (primary) hypertension] essential hypertension Medical Established Patient with Denny Lomeli RACKING TECHNICIAN 06/13/2024 Last Documented On 4 7:36PM ; [facility] [N94.6 - Dysmenorrhea, unspe cified] dysmenorrhea Medical Established Patient with Denny Lomeli RACKING TECHNICIAN 06/13/2024 Last Documented On 4 7:36PM ; [facility] [Z68.43 - Body mass index [B TN] 50.0-59.9, adult] assessment of body mass index Medical Established Patient with Denny Lomeli RACKING TECHNICIAN 06/13/2024 Last Documented On 4 7:36PM ; [facility] Encounter for Immunization Medical Estab lished Patient with Denny Lomeli RACKING TECHNICIAN 06/13/2024 Last Documented On 4 7:36PM ; [facility] Venipuncture was performed Medical Estab lished Patient with Denny Lomeli RACKING TECHNICIAN 06/13/2024 Last Documented On 4 7:36PM ; [facility] Attention-deficit hyperactivity disorder Established Patient with Kinga Short LISWS 04/10/2024 Last Documented On 4 10:10AM ; [facility] Bipolar I disorder, most rec ent episode, depressed - mild BH Established Patient with Kinga Short LISWS 04/10/2024 Last Documented On 4 10:10AM ; [facility] Post-traumatic stress disorder Establ ished Patient with Kinga Short LISWS 04/10/2024 Last Documented On 4 10:10AM ; [facility] [D64.9 - Anemia, unspecified] anemia Med ical Established Patient with Denny Lomeli RACKING TECHNICIAN 04/10/2024 Last Documented On 4 6:51PM ; [facility] [Z68.43 - Body mass index [B TN] 50.0-59.9, adult] assessment of body mass index Medical Established Patient with Denny Lomeli RACKING TECHNICIAN 04/10/2024 Last Documented On 4 6:51PM ; [facility] Bipolar affective disorder, current episode depressed, mild Established Patient with Kinga Short LISWS 01/17/2024 Last Documented On 4 5:16PM ; [facility] Post-traumatic stress disorder Establ ished Patient with Kinga Short LISWS 01/17/2024 Last Documented On 4 5:16PM ; [facility] Undifferentiated attention d eficit disorder Established Patient with Kinga Short LISWS 01/17/2024 Last Documented On 4 5:16PM ; [facility] Visit for: screening for disorder BH Est ablished Patient with Kinga Short LISWS 01/17/2024 Last Documented On 4 5:16PM ; [facility] [Z68.43 - Body mass index [B TN] 50.0-59.9, adult] assessment of body mass index Medical Established Patient with Denny Lomeli RACKING TECHNICIAN 01/17/2024 Last Documented On 4 7:50PM ; [facility] Attention-deficit hyperactivity disorder Medical Established Patient with Denny Lomeli RACKING TECHNICIAN 01/17/2024 Last Documented On 4 7:50PM ; [facility] Diabetes Risk Test Score was three score 01/17/2024 Medical Established Patient with Denny Lomeli RACKING TECHNICIAN 01/17/2024 Last Documented On 4 7:50PM ; [facility] Visit for: screening for STD Medical Est ablished Patient with Denny Lomeli RACKING TECHNICIAN 01/17/2024 Last Documented On 4 7:50PM ; [facility] [Z68.32 - Body mass index [B TN] 32.0-32.9, adult] assessment of body mass index Medical Established Patient with Dennyartem Lomeli RACKING TECHNICIAN 05/10/2023 Last Documented On 3 6:01PM ; [facility] Borderline personality disorder Medical Established Patient with Denny Armani RACKING TECHNICIAN 05/10/2023 Last Documented On 3 6:01PM ; [facility] Screening for diabetes mellitus Medical Established Patient with Denny Armani RACKING TECHNICIAN 05/10/2023 Last Documented On 3 6:01PM ; [facility] Assessment of body mass index Medical Es tablished Patient with Denny Armani RACKING TECHNICIAN 08/12/2022 Last Documented On 2 2:45PM ; [facility] Bipolar affective disorder, current episode manic Telebehavioral [facility] with Belkis Velarde LPCC-S 06/16/2022 Last Documented On 2 3:22PM ; [facility] Bipolar affective disorder, current episode manic Established Patient with Belkis Velarde LPCC-S 06/15/2022 Last Documented On 2 2:28PM ; [facility] Bipolar affective disorder, current episode depressed, severe with psychosis [facility]behavior[facility] with Belkis Velarde LPCC-S 06/15/2022 Last Documented On 2 3:29PM ; [facility] Assessment of body mass inde x [Body mass index [BMI] 50.0-59.9, adult] Open Access - Established with Leah Monique RACKING TECHNICIAN 06/15/2022 Last Documented On 2 9:36AM ; [facility] Bipolar I disorder, most rec ent episode, manic Open Access - Established with Leah Monique RACKING TECHNICIAN 06/15/2022 Last Documented On 2 9:36AM ; [facility] Post-traumatic stress disorder BH Establ ished Patient with Belkis Velarde LPCC-S 06/08/2022 Last Documented On 2 3:20PM ; [facility] No cough Medical Established Patient with Denny Armani RACKING TECHNICIAN 06/08/2022 Last Documented On 2 4:04PM ; [facility] Z68.43 - Body mass index [BM I] 50.0-59.9, adult Medical Established Patient with Denny Armani RACKING TECHNICIAN 06/08/2022 Last Documented On 2 4:04PM ; [facility] Borderline personality disor kyree Pt reported hx of sx/dx Established Patient with Belkis Velarde LPCC-S 05/27/2022 Last Documented On 2 4:08PM ; [facility] Assessment of body mass inde x [Body mass index [BMI] 50.0-59.9, adult] Open Access - Established with Leah Amaya RACKING TECHNICIAN 05/27/2022 Last Documented On 2 7:41PM ; [facility] Diabetes Risk Test Score was three score 05/27/2022 Open Access - Established with Leah Amaya RACKING TECHNICIAN 05/27/2022 Last Documented On 2 7:41PM ; [facility] Bipolar I disorder, most rec ent episode, manic Established Patient with Eufemia Mcneil LPCC-S 07/15/2021 Last Documented On 1 1:35AM ; [facility] Borderline personality disorder Estab lished Patient with Eufemia Mcneil LPCC-S 07/15/2021 Last Documented On 1 1:35AM ; [facility] Post-traumatic stress disorder Establ ished Patient with Eufemia Mcneil LPCC-S 07/15/2021 Last Documented On 1 1:35AM ; [facility] Assessment of visit for: lloyd mcgillning for human immunodeficiency virus Medical Established Patient with Denny Armani RACKING TECHNICIAN 07/15/2021 Last Documented On 1 2:56PM ; [facility] Nicotine dependence Medical Established Patient with Denny Armani RACKING TECHNICIAN 07/15/2021 Last Documented On 1 2:56PM ; [facility] Tachycardia Medical Established Patient with Denny Armani RACKING TECHNICIAN 07/15/2021 Last Documented On 1 2:56PM ; [facility] Z68.43 - Body mass index [BM I] 50.0-59.9, adult Medical Established Patient with Denny Armani RACKING TECHNICIAN 07/15/2021 Last Documented On 1 2:56PM ; [facility] Bipolar I disorder, most rec ent episode, manic BH Established Patient with Kinga Short LISWS 06/17/2021 Last Documented On 1 10:17AM ; [facility] Borderline personality disor kyree per patient reported history Established Patient with Kinga Short LISWS 06/17/2021 Last Documented On 1 10:17AM ; [facility] Nicotine dependence BH Established Patient with Kinga Short LISWS 06/17/2021 Last Documented On 1 10:17AM ; [facility] Post-traumatic stress disorder Establ ished Patient with Kinga Short LISWS 06/17/2021 Last Documented On 1 10:17AM ; [facility] Body mass index Medical Established Patient with Denny Armani RACKING TECHNICIAN 06/17/2021 Last Documented On 1 5:23PM ; [facility] Morbid obesity Medical Established Patient with Denny Armani RACKING TECHNICIAN 06/17/2021 Last Documented On 1 5:23PM ; [facility] Nicotine dependence uncomplicated Medica l Established Patient with Denny Armani RACKING TECHNICIAN 06/17/2021 Last Documented On 1 5:23PM ; [facility] Z68.42 - Body mass index [BM I] 45.0-49.9, adult Medical Established Patient with Denny Armani RACKING TECHNICIAN 06/17/2021 Last Documented On 1 5:23PM ; [facility] 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 disorders 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 RACKING TECHNICIAN 05/15/2021 Last Documented On 1 7:49AM ; [facility] Mood disorders, NOS per blaze ent reported history Established Patient with Kinga Short LISWS 04/23/2021 Last Documented On 1 7:15PM ; [facility] Post-traumatic stress disorder Establ ished Patient with Iknga Short LISWS 04/23/2021 Last Documented On 1 7:15PM ; [facility] Morbid obesity Medical Established Patient with Denny Armani RACKING TECHNICIAN 04/23/2021 Last Documented On 1 12:31PM ; [facility] Otitis externa Medical Established Patient with Denny Armani RACKING TECHNICIAN 04/23/2021 Last Documented On 1 12:31PM ; [facility] Z68.42 - Body mass index [BM I] 45.0-49.9, adult Medical Established Patient with Denny Armani RACKING TECHNICIAN 04/23/2021 Last Documented On 1 12:31PM ; [facility] Post-traumatic stress disorder Establ ished Patient with Kinga Short LISWS 04/01/2021 Last Documented On 1 10:05PM ; [facility] Morbid obesity Medical Established Patient with Denny Armani RACKING TECHNICIAN 04/01/2021 Last Documented On 1 4:45PM ; [facility] Z68.42 - Body mass index [BM I] 45.0-49.9, adult Medical Established Patient with Denny Armani RACKING TECHNICIAN 04/01/2021 Last Documented On 1 4:45PM ; [facility] Post-traumatic stress disorder Establ ished Patient with Kinga Short LISWS 03/17/2021 Last Documented On 1 11:59AM ; [facility] Assessment of visit for: lloyd mcgillning for human immunodeficiency virus Medical New Patient with Denny Armani RACKING TECHNICIAN 03/17/2021 Last Documented On 1 4:06PM ; [facility] Diabetes Risk Test Score was one score 03/17/2021 Medical New Patient with Denny Armani RACKING TECHNICIAN 03/17/2021 Last Documented On 1 4:06PM ; [facility] Hypertension Medical New Patient with Denny C chas RACKING TECHNICIAN 03/17/2021 Last Documented On 1 4:06PM ; [facility] Morbid obesity Medical New Patient with Denny C chas RACKING TECHNICIAN 03/17/2021 Last Documented On 1 4:06PM ; [facility] Post-traumatic stress disorder Medical New Patie nt with Denny Armani RACKING TECHNICIAN 03/17/2021 Last Documented On 1 4:06PM ; [facility] Z68.42 - Body mass index [BM I] 45.0-49.9, adult Medical New Patient with Denny Armani RACKING TECHNICIAN 03/17/2021 Last Documented On 1 4:06PM ; [facility] Work Phone: 1(593) 816-884109-26-2024 Evaluation note Includes: Assessments for all patient encounters Findings Encounter Date Attention-deficit hyperactiv ity disorder BH Established Patient with Sarai Alberts [place] 07/18/2024 Last Documented On 4 4:15PM ; [facility] Bipolar I disorder, most rec ent episode, depressed - mild BH Established Patient with Sarai Alberts FULLERETTE 07/18/2024 Last Documented On 4 4:15PM ; [facility] Nicotine dependence Established Patient with Saraifiliberto Alberts FULLERETTE 07/18/2024 Last Documented On 4 4:15PM ; [facility] Post-traumatic stress disorder Establ ished Patient with Sarai Alberts F[place]ETTE 07/18/2024 Last Documented On 4 4:15PM ; [facility] [Z68.43 - Body mass index [B TN] 50.0-59.9, adult] assessment of body mass index Medical Established Patient with Denny Lomeli RACKING TECHNICIAN 07/18/2024 Last Documented On 4 1:56PM ; [facility] Bipolar I disorder, most rec ent episode, depressed - mild Medical Established Patient with Dennyartem Lomeli RACKING TECHNICIAN 07/18/2024 Last Documented On 4 1:56PM ; [facility] Caries Medical Established Patient with Denny Landonen RACKING TECHNICIAN 07/18/2024 Last Documented On 4 1:56PM ; [facility] Encounter for Immunization Medical Estab lished Patient with Denny Landonen RACKING TECHNICIAN 07/18/2024 Last Documented On 4 1:56PM ; [facility] Type 2 diabetes mellitus wit hout complication Medical Established Patient with Denny Armani RACKING TECHNICIAN 07/18/2024 Last Documented On 4 1:56PM ; [facility] Attention-deficit hyperactivity disorder Established Patient with Kinga Short LISWS 06/13/2024 Last Documented On 4 3:28PM ; [facility] Bipolar I disorder, most rec ent episode, depressed - mild BH Established Patient with Kinga Bourgeois LISWS 06/13/2024 Last Documented On 4 3:28PM ; [facility] Post-traumatic stress disorder BH Establ ished Patient with Kinga Short LISWS 06/13/2024 Last Documented On 4 3:28PM ; [facility] [E11.9 - Type 2 diabetes gloria litus without complications] type 2 diabetes mellitus Medical Established Patient with Denny Lomeli RACKING TECHNICIAN 06/13/2024 Last Documented On 4 7:36PM ; [facility] [F41.1 - Generalized anxiety disorder] generalized anxiety disorder Medical Established Patient with Denny Lomeli RACKING TECHNICIAN 06/13/2024 Last Documented On 4 7:36PM ; [facility] [I10 - Essential (primary) hypertension] essential hypertension Medical Established Patient with Denny Lomeli RACKING TECHNICIAN 06/13/2024 Last Documented On 4 7:36PM ; [facility] [N94.6 - Dysmenorrhea, unspe cified] dysmenorrhea Medical Established Patient with Denny Lomeli RACKING TECHNICIAN 06/13/2024 Last Documented On 4 7:36PM ; [facility] [Z68.43 - Body mass index [B TN] 50.0-59.9, adult] assessment of body mass index Medical Established Patient with Denny Lomeli RACKING TECHNICIAN 06/13/2024 Last Documented On 4 7:36PM ; [facility] Encounter for Immunization Medical Estab lished Patient with Denny Lomeli RACKING TECHNICIAN 06/13/2024 Last Documented On 4 7:36PM ; [facility] Venipuncture was performed Medical Estab lished Patient with Denny Lomeli RACKING TECHNICIAN 06/13/2024 Last Documented On 4 7:36PM ; [facility] Attention-deficit hyperactivity disorder Established Patient with Kinga Short LISWS 04/10/2024 Last Documented On 4 10:10AM ; [facility] Bipolar I disorder, most rec ent episode, depressed - mild Established Patient with Kinga Short LISWS 04/10/2024 Last Documented On 4 10:10AM ; [facility] Post-traumatic stress disorder BH Establ ished Patient with Kinga Short LISWS 04/10/2024 Last Documented On 4 10:10AM ; [facility] [D64.9 - Anemia, unspecified] anemia Med ical Established Patient with Denny Lomeli RACKING TECHNICIAN 04/10/2024 Last Documented On 4 6:51PM ; [facility] [Z68.43 - Body mass index [B TN] 50.0-59.9, adult] assessment of body mass index Medical Established Patient with Denny Lomeli RACKING TECHNICIAN 04/10/2024 Last Documented On 4 6:51PM ; [facility] Bipolar affective disorder, current episode depressed, mild Established Patient with Kinga Short LISWS 01/17/2024 Last Documented On 4 5:16PM ; [facility] Post-traumatic stress disorder Establ ished Patient with Kinga Short LISWS 01/17/2024 Last Documented On 4 5:16PM ; [facility] Undifferentiated attention d eficit disorder Established Patient with Kinga Short LISWS 01/17/2024 Last Documented On 4 5:16PM ; [facility] Visit for: screening for disorder BH Est ablished Patient with Kinga Short LISWS 01/17/2024 Last Documented On 4 5:16PM ; [facility] [Z68.43 - Body mass index [B TN] 50.0-59.9, adult] assessment of body mass index Medical Established Patient with Denny Lomeli RACKING TECHNICIAN 01/17/2024 Last Documented On 4 7:50PM ; [facility] Attention-deficit hyperactivity disorder Medical Established Patient with Denny Lomeli RACKING TECHNICIAN 01/17/2024 Last Documented On 4 7:50PM ; [facility] Diabetes Risk Test Score was three score 01/17/2024 Medical Established Patient with Denny Lomeli RACKING TECHNICIAN 01/17/2024 Last Documented On 4 7:50PM ; [facility] Visit for: screening for STD Medical Est ablished Patient with Denny Lomeli RACKING TECHNICIAN 01/17/2024 Last Documented On 4 7:50PM ; [facility] [Z68.32 - Body mass index [B TN] 32.0-32.9, adult] assessment of body mass index Medical Established Patient with Denny Lomeli RACKING TECHNICIAN 05/10/2023 Last Documented On 3 6:01PM ; [facility] Borderline personality disorder Medical Established Patient with Denny Lomeli RACKING TECHNICIAN 05/10/2023 Last Documented On 3 6:01PM ; [facility] Screening for diabetes mellitus Medical Established Patient with Denny Lomeli RACKING TECHNICIAN 05/10/2023 Last Documented On 3 6:01PM ; [facility] Assessment of body mass index Medical Es tablished Patient with Denny Lomeli RACKING TECHNICIAN 08/12/2022 Last Documented On 2 2:45PM ; [facility] Bipolar affective disorder, current episode manic Telebehavioral Health with Belkisdionna CoffeyVelarde LPCC-S 06/16/2022 Last Documented On 2 3:22PM ; [facility] Bipolar affective disorder, current episode manic Established Patient with Belkis Velarde LPCC-S 06/15/2022 Last Documented On 2 2:28PM ; [facility] Bipolar affective disorder, current episode depressed, severe with psychosis Telebehavioral Health with Belkis Velarde LPCC-S 06/15/2022 Last Documented On 2 3:29PM ; [facility] Assessment of body mass inde x [Body mass index [BMI] 50.0-59.9, adult] Open Access - Established with Leah Monique RACKING TECHNICIAN 06/15/2022 Last Documented On 2 9:36AM ; [facility] Bipolar I disorder, most rec ent episode, manic Open Access - Established with Leah Monique RACKING TECHNICIAN 06/15/2022 Last Documented On 2 9:36AM ; [facility] Post-traumatic stress disorder BH Establ ished Patient with Belkis Velarde LPCC-S 06/08/2022 Last Documented On 2 3:20PM ; [facility] No cough Medical Established Patient with Denny Armani RACKING TECHNICIAN 06/08/2022 Last Documented On 2 4:04PM ; [facility] Z68.43 - Body mass index [BM I] 50.0-59.9, adult Medical Established Patient with Denny Armani RACKING TECHNICIAN 06/08/2022 Last Documented On 2 4:04PM ; [facility] Borderline personality disor kyree Pt reported hx of sx/dx Established Patient with Belkis Velarde LPCC-S 05/27/2022 Last Documented On 2 4:08PM ; [facility] Assessment of body mass inde x [Body mass index [BMI] 50.0-59.9, adult] Open Access - Established with Leah Amaya [facility] 05/27/2022 Last Documented On 2 7:41PM ; [facility] Diabetes Risk Test Score was three score 05/27/2022 Open Access - Established with Leah Monique [facility] 05/27/2022 Last Documented On 2 7:41PM ; [facility] Bipolar I disorder, most rec ent episode, manic Established Patient with Eufemia Mcneil LPCC-S 07/15/2021 Last Documented On 1 1:35AM ; [facility] Borderline personality disorder Estab lished Patient with Eufmeia Mcneil LPCC-S 07/15/2021 Last Documented On 1 1:35AM ; [facility] Post-traumatic stress disorder Establ ished Patient with Eufemia Mcneil LPCC-S 07/15/2021 Last Documented On 1 1:35AM ; [facility] Assessment of visit for: lloyd mcgillning for human immunodeficiency virus Medical Established Patient with Denny Armani RACKING TECHNICIAN 07/15/2021 Last Documented On 1 2:56PM ; [facility] Nicotine dependence Medical Established Patient with Denny Armani RACKING TECHNICIAN 07/15/2021 Last Documented On 1 2:56PM ; [facility] Tachycardia Medical Established Patient with Denny Armani RACKING TECHNICIAN 07/15/2021 Last Documented On 1 2:56PM ; [facility] Z68.43 - Body mass index [BM I] 50.0-59.9, adult Medical Established Patient with Denny Armani RACKING TECHNICIAN 07/15/2021 Last Documented On 1 2:56PM ; [facility] Bipolar I disorder, most rec ent episode, manic Established Patient with Kinga Short LISWS 06/17/2021 Last Documented On 1 10:17AM ; [facility] Borderline personality disor kyree per patient reported history Established Patient with Kinga Short LISWS 06/17/2021 Last Documented On 1 10:17AM ; [facility] Nicotine dependence BH Established Patient with Kinga Short LISWS 06/17/2021 Last Documented On 1 10:17AM ; [facility] Post-traumatic stress disorder Establ ished Patient with Kinga Short LISWS 06/17/2021 Last Documented On 1 10:17AM ; [facility] Body mass index Medical Established Patient with Denny Armani RACKING TECHNICIAN 06/17/2021 Last Documented On 1 5:23PM ; [facility] Morbid obesity Medical Established Patient with Denny Armani RACKING TECHNICIAN 06/17/2021 Last Documented On 1 5:23PM ; [facility] Nicotine dependence uncomplicated Medica l Established Patient with Denny Armani RACKING TECHNICIAN 06/17/2021 Last Documented On 1 5:23PM ; [facility] Z68.42 - Body mass index [BM I] 45.0-49.9, adult Medical Established Patient with Denny Armani RACKING TECHNICIAN 06/17/2021 Last Documented On 1 5:23PM ; [facility] 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 disorders 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 RACKING TECHNICIAN 05/15/2021 Last Documented On 1 7:49AM ; [facility] Mood disorders, NOS per blaze ent reported history Established Patient with Kinga Short LISWS 04/23/2021 Last Documented On 1 7:15PM ; [facility] Post-traumatic stress disorder Establ ished Patient with Kinga Short LISWS 04/23/2021 Last Documented On 1 7:15PM ; [facility] Morbid obesity Medical Established Patient with Denny Armani RACKING TECHNICIAN 04/23/2021 Last Documented On 1 12:31PM ; [facility] Otitis externa Medical Established Patient with Denny Armani RACKING TECHNICIAN 04/23/2021 Last Documented On 1 12:31PM ; [facility] Z68.42 - Body mass index [BM I] 45.0-49.9, adult Medical Established Patient with Denny Armani RACKING TECHNICIAN 04/23/2021 Last Documented On 1 12:31PM ; [facility] Post-traumatic stress disorder Establ ished Patient with Kinga Short LISWS 04/01/2021 Last Documented On 1 10:05PM ; [facility] Morbid obesity Medical Established Patient with Denny Armani RACKING TECHNICIAN 04/01/2021 Last Documented On 1 4:45PM ; [facility] Z68.42 - Body mass index [BM I] 45.0-49.9, adult Medical Established Patient with Denny Armani RACKING TECHNICIAN 04/01/2021 Last Documented On 1 4:45PM ; [facility] Post-traumatic stress [facility] Establ ished Patient with Kinga Short LISWS 03/17/2021 Last Documented On 1 11:59AM ; [facility] Assessment of visit for: scr eening for human immunodeficiency virus Medical New Patient with Denny Armani RACKING TECHNICIAN 03/17/2021 Last Documented On 1 4:06PM ; [facility] Diabetes Risk Test Score was one score 03/17/2021 Medical New Patient with Denny Armani RACKING TECHNICIAN 03/17/2021 Last Documented On 1 4:06PM ; [facility] Hypertension Medical New Patient with Denny C chas RACKING TECHNICIAN 03/17/2021 Last Documented On 1 4:06PM ; [facility] Morbid obesity Medical New Patient with Denny C chas RACKING TECHNICIAN 03/17/2021 Last Documented On 1 4:06PM ; [facility] Post-traumatic stress disorder Medical New Patie nt with Denny Armani RACKING TECHNICIAN 03/17/2021 Last Documented On 1 4:06PM ; [facility] Z68.42 - Body mass index [BM I] 45.0-49.9, adult Medical New Patient with Denny Lomeli RACKING TECHNICIAN 03/17/2021 Last Documented On 1 4:06PM ; [facility] Work Phone: 1(268) 255-146309-26-2024 Progress note* Progress note Date Encounter Last Documented by 07/18/2024 Established Patient Last docu mented on 07/22/2024; 4:15 PM, Sarai GREENW; [facility] Active Problems & Conditions - F90.9 - Attention-deficit Hyperactivity Disorder - F31.31 - Bipolar I Disorder, Most Recent Episode, Depressed Mild - E11.9 - Diabetes Mellitus Type 2 Without Complication - N94.6 - Dysmenorrhea - F43.10 - Post-traumatic Stress Disorder Subjective [facility] met with patient for mood and medications. PHQ9 score 18 GLORIA score 21 Patient reports that her depression and anxiety are not good at the moment. She is not sleeping well and does not feel that the trazedone is helping. She would like to start seroquel. Patient would like to go back to counseling and was provided resources. Pt is reporting that she is haivng nightmares and they are from her past. Discussed EMDR therapy for Pt to address her PTSD. Encouraged patient to engage in more physical activity to help with sleep. She reports that she just not tired to be able to sleep but feels tired. . Pt would like to walk around a track but is fearful that she will see her father. Pt was present with her mother who agreed to go with her walking. Discussed [facility] patient the benefits of seeing a psychiatrist for evaluation for ADHD. Chief Complaint The Chief Complaint is: Follow up for mood and medications. History of Present Illness Cordelia Guaman is a 24 year old female. - Appetite not normal - Irritability - Anxiety - Depression severe - Sleep disturbances Will be starting seroquel - Energy level is good - Easily distracted Current Medication - Alcohol Pads 70% use to cleanse skin prior to checking blood sugars, 90 days, 3 refills - ARIPiprazole 5 MG Oral Tablet take 1 tablet by mouth once daily, 30 days, 5 refills - Atorvastatin Calcium 20 MG Oral Tablet take 1 tablet by mouth once daily at bedtime, 30 days, 5 refills - Blood Glucose System Ren Kit use to check sugars once daily (use what is covered), 30 days, 0 refills - busPIRone HCl 10 MG Oral Tablet take 1 tablet by mouth twice daily (d/c 5 mg rx), 30 days, 5 refills - CareSens Lancets Miscellaneous use to check sugars once daily (dispense what is covered), 90 days, 3 refills - Colace 100 MG Oral Capsule take 1 capsule by mouth once daily at bedtime as needed for constipation, 30 days, 5 refills - [facility] Iron 325 (65 Fe) MG Oral Tablet take 1 tablet by mouth once daily, 30 days, 5 refills - Intuniv 1 MG Oral Tablet Extended Release 24 Hour take 1 tablet by mouth once daily at bedtime, 30 days, 5 refills - Intuniv 1 MG Oral Tablet Extended Release 24 Hour take 1 tablet by mouth once daily at bedtime, 30 days, 5 refills - Januvia 50 MG Oral Tablet take 1 tablet by mouth once daily, 30 days, 5 refills - lamoTRIgine 100 MG Oral Tablet take 1 tablet by mouth once daily, 30 days, 5 refills - lamoTRIgine 100 MG Oral Tablet take 1 tablet by mouth once daily, 30 days, 5 refills - Lisinopril 5 MG Oral Tablet take 1 tablet by mouth once daily, 30 days, 5 refills - MiraLax 17 GM/SCOOP Oral Powder mix 1 scoop with 8 ounces once daily, 30 days, 2 refills - Narcan 4 MG/0.1ML Nasal Liquid spray in nostril for symptoms of overdose , may repeat in 2 minutes if symptoms persist, 1 days, 0 refills - Mad Mimi Ultra In Vitro Strip USE ONE TEST STRIP TO CHECK BLOOD SUGARS ONCE DAILY, 90 days, 3 refills - Prazosin HCl 1 MG Oral Capsule take 1 capsule by mouth twice daily, 30 days, 5 refills - Prazosin HCl 1 MG Oral Capsule take 1 capsule by mouth twice daily, 30 days, 5 refills - SEROquel 50 MG Oral Tablet take 1 tablet by mouth once daily at bedtime (d/c trazodone), 30 days, 1 refills - Sertraline HCl 50 MG Oral Tablet take 1 tablet by mouth once daily, 30 days, 5 refills - Sertraline HCl 50 MG Oral Tablet take 1 tablet by mouth once daily, 30 days, 5 refills - Slynd 4 MG Oral Tablet take 1 tablet by mouth at the same time everyday to help regulate your period, 28 days, 2 refills Past Medical/Surgical History Reported: No Safety Measures. Has sex without a condom. Medical: No previous hospitalizations. Chronic illness and Sexually transmitted infection Partners sexually transmitted infection status known. Immunization History: Recent immunization for flu. Exposure: Exposure to COVID-19. : Previously 1 time(s) and para having 0 live (s). Not planning a in the next year. Diagnoses: Polycystic Ovarian Syndrome (PCOS). Migraine headache. Psychiatric disorders biopolar disorder Anxiety disorder POTS. Procedural: - Insertion of ear pressure equalization tubes in both ears Surgical: - Tonsillectomy - Tonsillectomy with adenoidectomy Social History Environmental Exposure: Secondhand cigarette smoke exposure. Personal: Recent emotional stress. Tobacco use: Using electronic cigarettes/vaping. Alcohol: Not using alcohol. Drug Use: Not using drugs. Housing And Economic Circumstances: Lives with parents. Sexual: Sexual orientation Lesbian or Shin and gender identity Other. Allergies - Abilify Reaction: groggy - Augmentin Reaction: Shock - Metformin Reaction: Nausea, Vomiting - NO KNOWN ENVIRONMENTAL ALLERGIES - NO KNOWN FOOD ALLERGIES - Sertraline Reaction: slow/groggy - Trazodone Hydrochloride Reaction: Panic attack Family History Paternal: Systemic hypertension Oncologic disorder Maternal: Systemic hypertension Epilepsy and recurrent seizures Psychiatric disorders Oncologic disorder Fraternal: Psychiatric disorders Physical Findings General Appearance: - Normal Appearance. Neurological: - Cognitive Functions was Normal. - Oriented to time, place, and person. - No hallucinations. - Judgement was not impaired. Speech: - Is Normal. - No articulation abnormalities. Psychiatric: - Mood is Euthymic. - Attitude Open. Appearance: - Normal. Demonstrated Behavior: - Motor Activity Normal Activity. - Eye Contact Appropriate. Affect: - Congruent with the mood. Thought Processes: - Not impaired. Thought Content: - Revealed no impairment. - Insight was intact. - No delusions. - No suicidal ideation. - No Passive thoughts of . - No suicidal plans. - No suicidal intent. - No homicidal ideations. - No homicidal plans. - No homicidal intent. Past Medical: - No repetitive self injurious behavior. Assessment - Attention-deficit hyperactivity disorder [F90.9 - Attention-deficit hyperactivity disorder, unspecified type] - Nicotine dependence [F17.200 - Nicotine dependence, unspecified, uncomplicated] - Bipolar I disorder, most recent episode, depressed - mild [F31.31 - Bipolar disorder, current episode depressed, mild] - Post-traumatic stress disorder [F43.10 - Post-traumatic stress disorder, unspecified] Therapy - Developmental/Behavioral Screening & Testing - PHQ9 and Developmental/Behavioral Screening & Testing - GAD7. - Brief solution-focused. - Adherent with medications. - Visit 30 Minutes. - Referral to mental health team. - Plan - Begin taking the seroquel at bedtime and Collaborated with patient and provider: Counseling/Education *BHP offered active and supportive listening, normalized emotions and feelings, and processed current stressors. *Discussed engageing in counseling and looking into EMDR to address PTSD and increased nightmares. Plan *Continue to take medication(s) as prescribed. *BHP to follow-up with patient at next visit as scheduled. *Patient to follow up as needed/scheduled. Care Team - Denny Lomeli CNP Health Reminders - Assess Tobacco Use satisfied 07/22/2024. - GLORIA-2 satisfied 07/18/2024. - PHQ9 / PHQA satisfied 07/18/2024. User Defined 1 GLORIA-2 score was six 07/18/2024, GLORIA-7 score was 21 [GLORIA-7] Feeling nervous, anxious or on edge? + 3 pt : Nearly every day, [GLORIA-7] Feeling nervous, anxious or on edge? + 3 pt : Nearly every day, [GLORIA-7] Not being able to stop or control worrying? + 3 pt : Nearly every day, [GLORIA-7] Not being able to stop or control worrying? + 3 pt : Nearly every day, [GLORIA-7] Worrying too much about different things? + 3 pt : Nearly every day, [GLORIA-7] Trouble relaxing? + 3 pt : Nearly every day, [GLORIA-7] Being so restless that it's hard to sit still? + 3 pt : Nearly every day, [GLORIA-7] Becoming easily annoyed or irritable? + 3 pt : Nearly every day, [GLORIA-7] Feeling afraid as if something awful might happen? + 3 pt : Nearly every day, Patient Health Questionnaire 9-Item total score was 18 07/18/2024 If you checked off problems, how difficult is it for you to do your work? + : Very difficult, [PHQ-9-1] Little interest or pleasure in doing things? + 3 pt : Nearly every day, [PHQ-9-2] Feeling down, depressed, or hopeless? + 3 pt : Nearly every day, [PHQ-9-3] Trouble falling or staying asleep or sleeping too much? + 3 pt : Nearly every day, [PHQ-9-4] Feeling tired or having little energy? + 3 pt : Nearly every day, [PHQ-9-5] Poor appetite or overeating? + 3 pt : Nearly every day, [PHQ-9-6] Feeling bad about yourself-or that you are a failure + 0 pt : Not at all, [PHQ-9-7] Trouble concentrating on things such as reading the newspaper + 3 pt : Nearly every day, [PHQ-9-8] Moving or speaking so slowly that other people have noticed. + 0 pt : Not at all, [PHQ-9-9] Thoughts that you would be better off or hurting yourself? + 0 pt : Not at all, and GLORIA If you checked off problems, how difficult is it for you to do your work, take care of things, or get along? Very difficult. [facility]09-26-2024 Progress note* Progress note Date Encounter Last Documented by 07/18/2024 Medical Established Patient Last documented on 07/26/2024; 1:56 PM, Denny Lomeli CNP; [facility] Active Problems & Conditions - F90.9 - Attention-deficit Hyperactivity Disorder - F31.31 - Bipolar I Disorder, Most Recent Episode, Depressed Mild - E11.9 - Diabetes Mellitus Type 2 Without Complication - N94.6 - Dysmenorrhea - F43.10 - Post-traumatic Stress Disorder Chief Complaint The Chief Complaint is: Patient reports her mental health is a problem. Patient isn't sure the zoloft is working for her. Patient said she is feeling very down. Patient is not sleeping, but has not picked up seroquel. Patient has been still taking the trazodone. Referred Here Not referred by urgent care clinic and not the emergency room. No prior encounters. - Data to be reviewed: no clinical lab tests History of Present Illness Cordelia Guaman is a 24 year old female. - Allergy list reviewed - Reviewed Medications - Medication list reviewed - Date of last menstruation 04/16/2024 - test - would not like a test Presents for med follow up , did not know seroquel was ready at the pharmacy so hasnt been taking . we do not have any hpv vaccines here today , needs 2nd dose. is going thru a vape about every 3 days , wants to quit but aware it would be better to wait until mental health is better , advised on the harm of nicotine / vapes Current Medication - Alcohol Pads 70% use to cleanse skin prior to checking blood sugars, 90 days, 3 refills - ARIPiprazole 5 MG Oral Tablet take 1 tablet by mouth once daily, 30 days, 5 refills - Atorvastatin Calcium 20 MG Oral Tablet take 1 tablet by mouth once daily at bedtime, 30 days, 5 refills - Blood Glucose System Ren Kit use to check sugars once daily (use what is covered), 30 days, 0 refills - busPIRone HCl 10 MG Oral Tablet take 1 tablet by mouth twice daily (d/c 5 mg rx), 30 days, 5 refills - CareSens Lancets Miscellaneous use to check sugars once daily (dispense what is covered), 90 days, 3 refills - Colace 100 MG Oral Capsule take 1 capsule by mouth once daily at bedtime as needed for constipation, 30 days, 5 refills - [facility] Iron 325 (65 Fe) MG Oral Tablet take 1 tablet by mouth once daily, 30 days, 5 refills - Intuniv 1 MG Oral Tablet Extended Release 24 Hour take 1 tablet by mouth once daily at bedtime, 30 days, 5 refills - Januvia 50 MG Oral Tablet take 1 tablet by mouth once daily, 30 days, 5 refills - lamoTRIgine 100 MG Oral Tablet take 1 tablet by mouth once daily, 30 days, 5 refills - Lisinopril 5 MG Oral Tablet take 1 tablet by mouth once daily, 30 days, 5 refills - MiraLax 17 GM/SCOOP Oral Powder mix 1 scoop with 8 ounces once daily, 30 days, 2 refills - Narcan 4 MG/0.1ML Nasal Liquid spray in nostril for symptoms of overdose , may repeat in 2 minutes if symptoms persist, 1 days, 0 refills - OneTouch Ultra In Vitro Strip USE ONE TEST STRIP TO CHECK BLOOD SUGARS ONCE DAILY, 90 days, 3 refills - Prazosin HCl 1 MG Oral Capsule take 1 capsule by mouth twice daily, 30 days, 5 refills - SEROquel 50 MG Oral Tablet take 1 tablet by mouth once daily at bedtime (d/c trazodone), 30 days, 1 refills - Sertraline HCl 50 MG Oral Tablet take 1 tablet by mouth once daily, 30 days, 5 refills - Slynd 4 MG Oral Tablet take 1 tablet by mouth at the same time everyday to help regulate your period, 28 days, 2 refills Past Medical/Surgical History Reported: Has sex without a condom. Medical: No previous hospitalizations. Chronic illness and Sexually transmitted infection Partners sexually transmitted infection status known. Exposure: Exposure to COVID-19. : Previously 1 time(s) and para having 0 live (s). Not planning a in the next year. Legal Documents: Consent form on file for procedure. Diagnoses: Polycystic Ovarian Syndrome (PCOS). Migraine headache. Psychiatric disorders biopolar disorder Anxiety disorder POTS. Procedural: - Insertion of ear pressure equalization tubes in both ears Surgical: - Tonsillectomy - Tonsillectomy with adenoidectomy Social History Environmental Exposure: Secondhand cigarette smoke exposure. Tobacco use: Using electronic cigarettes/vaping. Alcohol: Not using alcohol. Drug Use: Not using drugs denied by patient. Sexual: Sexually active, sexual orientation Lesbian or Shin, gender identity Other, and control is being practiced Pills. Allergies - Abilify Reaction: groggy - Augmentin Reaction: Shock - Metformin Reaction: Nausea, Vomiting - NO KNOWN ENVIRONMENTAL ALLERGIES - NO KNOWN FOOD ALLERGIES - Sertraline Reaction: slow/groggy - Trazodone Hydrochloride Reaction: Panic attack Family History Paternal: Systemic hypertension Oncologic disorder Maternal: Systemic hypertension Epilepsy and recurrent seizures Psychiatric disorders Oncologic disorder Fraternal: Psychiatric disorders Review Of Systems Head: No head symptoms. Neck: No neck symptoms. Eyes: No eye symptoms. Otolaryngeal: No ear symptoms, no nasal symptoms, no nose and sinus finding, no throat symptoms, no oral cavity symptoms, and no jaw symptoms. Breasts: No breast symptoms. Cardiovascular: No cardiovascular symptoms and no chest pain or discomfort. Pulmonary: No pulmonary symptoms. Gastrointestinal: No gastrointestinal symptoms. Genitourinary: No genitourinary symptoms. Musculoskeletal: No musculoskeletal symptoms. Neurological: No neurological symptoms. Psychological: No psychological symptoms. Skin: No skin symptoms. Cardiovascular: Edema not present. Physical Findings - Vitals taken 07/18/2024 04:27 pm BP-Sitting L135/86 mmHg BP Cuff SizeLarge Pulse Rate-Mrzpadw597 bpm Respiration Rate18 per min Temp-Oral97.6 F Xlqufg76 in Qibucj349 lbs Body Mass Index57.2 kg/m2 Body Surface Area2.4 m2 Oxygen Mlfdypccel06 % Vital Signs: - Systolic blood pressure 130 - 139 mmHg. - Diastolic blood pressure 80-89 mmHg. General Appearance: - Awake. - Alert. - Well developed. - Well nourished. - In no acute distress. Lungs: - Respiration rhythm and depth was normal. - Clear to auscultation. Cardiovascular: Heart Rate And Rhythm: - Normal. Heart Sounds: - Normal. Murmurs: - No murmurs were heard. Musculoskeletal System: General/bilateral: - Normal movement of all extremities. Foot: General/bilateral: - Normal 10-g monofilament exam of right foot. - Normal 10-g monofilament exam of left foot. Skin: - General appearance was normal. Physician's Services: - Diabetic Foot Exam Abnormal Tests Blood Analysis: Blood Endocrine Laboratory Tests: Value Blood glucose level by fingerstick Non-fasting 122 mg/dl Laboratory-based Chemistry: Other Laboratory Tests: Screening for sexually transmitted infections was not performed. Imaging: Ophthalmoscopy: Optomap completed Both eyes (OU) and with physician / healthcare professional interpretation and report. Assessment - Z68.43 - Body mass index [BMI] 50.0-59.9, adult - Z23 - Encounter for immunization - K02.9 - Dental caries, unspecified - E11.9 - Type 2 diabetes mellitus without complications - F31.31 - Bipolar disorder, current episode depressed, mild Previous Tests Laboratory Studies: Renal Function: Glomerular filtration rate 02/28/2024 >60. Therapy - Patient has agreed to receive flu vaccine today. - Silver diamine fluoride 38% application by physician or other QHP 10 Teeth. - Immunization administration, by injection, one vaccine. Vaccinations - Fluarix 0.5mL for 6 months and older Dose #2 Status: Administered Date: 07/18/2024 - Received dose of Fluarix 0.5mL (6 months and up) Counseling/Education - Wishing to stop using electronic cigarettes/vaping - Discussed nutritional needs teach healthy choices including fruits and vegetables - Patient education about a proper diet - Discussed concerns about exercise: promote physical activity Plan StartCited- Attention-deficit hyperactivity disorder, unspecified type Intuniv 1 MG tablet take 1 tablet by mouth once daily at bedtime, 30 days, 5 refills EndCited StartCited- Other Follow-up Appointment 1 month med check lamoTRIgine 100 MG tablet take 1 tablet by mouth once daily, 30 days, 5 refills Prazosin HCl 1 MG capsule take 1 capsule by mouth twice daily, 30 days, 5 refills Sertraline HCl 50 MG tablet take 1 tablet by mouth once daily, 30 days, 5 refills EndCited Care Team - Denny Lomeli CNP Health Reminders - Assess BMI satisfied 07/18/2024. - Assess Tobacco Use satisfied 07/18/2024. - Eye Exam satisfied 07/18/2024. - Follow Up Plan BMI Management satisfied 07/18/2024. - Foot Exam satisfied 07/18/2024. User Defined 1 Not planning a in the next year. Bottom of Document Illustration [facility]09-26-2024 Progress note* Progress note Date Encounter Last Documented by 07/18/2024 Medical Established Patient Last documented on 07/31/2024; 2:09 PM, Denny Lomeli CNP; [facility] Active Problems & Conditions - F90.9 - Attention-deficit Hyperactivity Disorder - F31.31 - Bipolar I Disorder, Most Recent Episode, Depressed Mild - E11.9 - Diabetes Mellitus Type 2 Without Complication - N94.6 - Dysmenorrhea - F43.10 - Post-traumatic Stress Disorder Chief Complaint The Chief Complaint is: Patient reports her mental health is a problem. Patient isn't sure the zoloft is working for her. Patient said she is feeling very down. Patient is not sleeping, but has not picked up seroquel. Patient has been still taking the trazodone. Referred Here Not referred by urgent care clinic and not the emergency room. No prior encounters. - Data to be reviewed: no clinical lab tests History of Present Illness Cordelia Guaman is a 24 year old female. - Allergy list reviewed - Reviewed Medications - Medication list reviewed - Date of last menstruation 04/16/2024 - test - would not like a test Presents for med follow up , did not know seroquel was ready at the pharmacy so hasnt been taking . we do not have any hpv vaccines here today , needs 2nd dose. is going thru a vape about every 3 days , wants to quit but aware it would be better to wait until mental health is better , advised on the harm of nicotine / vapes Current Medication - Alcohol Pads 70% use to cleanse skin prior to checking blood sugars, 90 days, 3 refills - ARIPiprazole 5 MG Oral Tablet take 1 tablet by mouth once daily, 30 days, 5 refills - Atorvastatin Calcium 20 MG Oral Tablet take 1 tablet by mouth once daily at bedtime, 30 days, 5 refills - Blood Glucose System Ren Kit use to check sugars once daily (use what is covered), 30 days, 0 refills - busPIRone HCl 10 MG Oral Tablet take 1 tablet by mouth twice daily (d/c 5 mg rx), 30 days, 5 refills - CareSens Lancets Miscellaneous use to check sugars once daily (dispense what is covered), 90 days, 3 refills - Colace 100 MG Oral Capsule take 1 capsule by mouth once daily at bedtime as needed for constipation, 30 days, 5 refills - [facility] Iron 325 (65 Fe) MG Oral Tablet take 1 tablet by mouth once daily, 30 days, 5 refills - Intuniv 1 MG Oral Tablet Extended Release 24 Hour take 1 tablet by mouth once daily at bedtime, 30 days, 5 refills - Januvia 50 MG Oral Tablet take 1 tablet by mouth once daily, 30 days, 5 refills - lamoTRIgine 100 MG Oral Tablet take 1 tablet by mouth once daily, 30 days, 5 refills - Lisinopril 5 MG Oral Tablet take 1 tablet by mouth once daily, 30 days, 5 refills - MiraLax 17 GM/SCOOP Oral Powder mix 1 scoop with 8 ounces once daily, 30 days, 2 refills - Narcan 4 MG/0.1ML Nasal Liquid spray in nostril for symptoms of overdose , may repeat in 2 minutes if symptoms persist, 1 days, 0 refills - OneTouch Ultra In Vitro Strip USE ONE TEST STRIP TO CHECK BLOOD SUGARS ONCE DAILY, 90 days, 3 refills - Prazosin HCl 1 MG Oral Capsule take 1 capsule by mouth twice daily, 30 days, 5 refills - SEROquel 50 MG Oral Tablet take 1 tablet by mouth once daily at bedtime (d/c trazodone), 30 days, 1 refills - Sertraline HCl 50 MG Oral Tablet take 1 tablet by mouth once daily, 30 days, 5 refills - Slynd 4 MG Oral Tablet take 1 tablet by mouth at the same time everyday to help regulate your period, 28 days, 2 refills Past Medical/Surgical History Reported: Has sex without a condom. Medical: No previous hospitalizations. Chronic illness and Sexually transmitted infection Partners sexually transmitted infection status known. Exposure: Exposure to COVID-19. : Previously 1 time(s) and para having 0 live (s). Not planning a in the next year. Legal Documents: Consent form on file for procedure. Diagnoses: Polycystic Ovarian Syndrome (PCOS). Migraine headache. Psychiatric disorders biopolar disorder Anxiety disorder POTS. Procedural: - Insertion of ear pressure equalization tubes in both ears Surgical: - Tonsillectomy - Tonsillectomy with adenoidectomy Social History Environmental Exposure: Secondhand cigarette smoke exposure. Tobacco use: Using electronic cigarettes/vaping. Alcohol: Not using alcohol. Drug Use: Not using drugs denied by patient. Sexual: Sexually active, sexual orientation Lesbian or Shin, gender identity Other, and control is being practiced Pills. Allergies - Abilify Reaction: groggy - Augmentin Reaction: Shock - Metformin Reaction: Nausea, Vomiting - NO KNOWN ENVIRONMENTAL ALLERGIES - NO KNOWN FOOD ALLERGIES - Sertraline Reaction: slow/groggy - Trazodone Hydrochloride Reaction: Panic attack Family History Paternal: Systemic hypertension Oncologic disorder Maternal: Systemic hypertension Epilepsy and recurrent seizures Psychiatric disorders Oncologic disorder Fraternal: Psychiatric disorders Review Of Systems Head: No head symptoms. Neck: No neck symptoms. Eyes: No eye symptoms. Otolaryngeal: No ear symptoms, no nasal symptoms, no nose and sinus finding, no throat symptoms, no oral cavity symptoms, and no jaw symptoms. Breasts: No breast symptoms. Cardiovascular: No cardiovascular symptoms and no chest pain or discomfort. Pulmonary: No pulmonary symptoms. Gastrointestinal: No gastrointestinal symptoms. Genitourinary: No genitourinary symptoms. Musculoskeletal: No musculoskeletal symptoms. Neurological: No neurological symptoms. Psychological: No psychological symptoms. Skin: No skin symptoms. Cardiovascular: Edema not present. Physical Findings - Vitals taken 07/18/2024 04:27 pm BP-Sitting L135/86 mmHg BP Cuff SizeLarge Pulse Rate-Yvqbmzf688 bpm Respiration Rate18 per min Temp-Oral97.6 F Ytpbze62 in Xlbvfl381 lbs Body Mass Index57.2 kg/m2 Body Surface Area2.4 m2 Oxygen Oivpkbzmac66 % Vital Signs: - Systolic blood pressure 130 - 139 mmHg. - Diastolic blood pressure 80-89 mmHg. General Appearance: - Awake. - Alert. - Well developed. - Well nourished. - In no acute distress. Lungs: - Respiration rhythm and depth was normal. - Clear to auscultation. Cardiovascular: Heart Rate And Rhythm: - Normal. Heart Sounds: - Normal. Murmurs: - No murmurs were heard. Musculoskeletal System: General/bilateral: - Normal movement of all extremities. Foot: General/bilateral: - Normal 10-g monofilament exam of right foot. - Normal 10-g monofilament exam of left foot. Skin: - General appearance was normal. Physician's Services: - Diabetic Foot Exam Abnormal Tests Blood Analysis: Blood Endocrine Laboratory Tests: Value Blood glucose level by fingerstick Non-fasting 122 mg/dl Laboratory-based Chemistry: Other Laboratory Tests: Screening for sexually transmitted infections was not performed. Imaging: Ophthalmoscopy: No apparent diabetic retinopathy. Optomap completed Both eyes (OU) and with physician / healthcare professional interpretation and report. Assessment - Z68.43 - Body mass index [BMI] 50.0-59.9, adult - Z23 - Encounter for immunization - K02.9 - Dental caries, unspecified - E11.9 - Type 2 diabetes mellitus without complications - F31.31 - Bipolar disorder, current episode depressed, mild Previous Tests Laboratory Studies: Renal Function: Glomerular filtration rate 02/28/2024 >60. Therapy - Patient has agreed to receive flu vaccine today. - Silver diamine fluoride 38% application by physician or other QHP 10 Teeth. - Immunization administration, by injection, one vaccine. Vaccinations - Fluarix 0.5mL for 6 months and older Dose #2 Status: Administered Date: 07/18/2024 - Received dose of Fluarix 0.5mL (6 months and up) Counseling/Education - Wishing to stop using electronic cigarettes/vaping - Discussed nutritional needs teach healthy choices including fruits and vegetables - Patient education about a proper diet - Discussed concerns about exercise: promote physical activity Plan StartCited- Attention-deficit hyperactivity disorder, unspecified type Intuniv 1 MG tablet take 1 tablet by mouth once daily at bedtime, 30 days, 5 refills EndCited StartCited- Other Follow-up Appointment 1 month med check lamoTRIgine 100 MG tablet take 1 tablet by mouth once daily, 30 days, 5 refills Prazosin HCl 1 MG capsule take 1 capsule by mouth twice daily, 30 days, 5 refills Sertraline HCl 50 MG tablet take 1 tablet by mouth once daily, 30 days, 5 refills EndCited Care Team - Denny Lomeli CNP Health Reminders - Assess BMI satisfied 07/18/2024. - Assess Tobacco Use satisfied 07/18/2024. - Eye Exam satisfied 07/31/2024. - Follow Up Plan BMI Management satisfied 07/18/2024. - Foot Exam satisfied 07/18/2024. User Defined 1 Not planning a in the next year. Bottom of Document [facility] Replaced by [facility]09-26-2024 Reason for referral (narrative)* Date Encounter Description Provider Reason for Referral 07/18/24 Established Patient Sarai Alberts FULLERETTE R eferral To Mental Health Team 05/27/22 Established Patient Belkis Syd SOLORZANO CC-S Referral To Mental Health Team 03/17/21 Medical New Patient Denny Lomeli CNP Refe rral To Mental Health Team [facility] Work Phone: 1([phone]) 112-529608-22-2024 Evaluation note Includes: Assessments for all patient encounters Findings Encounter Date Attention-deficit hyperactiv ity disorder Established Patient with Kinga Short LISWS 06/13/2024 Last Documented On 4 6:28PM ; [facility] Bipolar I disorder, most rec ent episode, depressed - mild Established Patient with Kinga Short LISWS 06/13/2024 Last Documented On 4 6:28PM ; [facility] Post-traumatic stress disorder Establ ished Patient with Kinga Short LISWS 06/13/2024 Last Documented On 4 6:28PM ; [facility] [E11.9 - Type 2 diabetes gloria litus without complications] type 2 diabetes mellitus Medical Established Patient with Denny Lomeli RACKING TECHNICIAN 06/13/2024 Last Documented On 4 7:36PM ; [facility] [F41.1 - Generalized anxiety disorder] generalized anxiety disorder Medical Established Patient with Denny Lomeli RACKING TECHNICIAN 06/13/2024 Last Documented On 4 7:36PM ; [facility] [I10 - Essential (primary) hypertension] essential hypertension Medical Established Patient with Denny Lomeli RACKING TECHNICIAN 06/13/2024 Last Documented On 4 7:36PM ; [facility] [N94.6 - Dysmenorrhea, unspe cified] dysmenorrhea Medical Established Patient with Denny Lomeli RACKING TECHNICIAN 06/13/2024 Last Documented On 4 7:36PM ; [facility] [Z68.43 - Body mass index [B TN] 50.0-59.9, adult] assessment of body mass index Medical Established Patient with Denny Lomeli RACKING TECHNICIAN 06/13/2024 Last Documented On 4 7:36PM ; [facility] Encounter for Immunization Medical Estab lished Patient with Denny Lomeli RACKING TECHNICIAN 06/13/2024 Last Documented On 4 7:36PM ; [facility] Venipuncture was performed Medical Estab lished Patient with Denny Lomeli RACKING TECHNICIAN 06/13/2024 Last Documented On 4 7:36PM ; [facility] Attention-deficit hyperactivity disorder Established Patient with Kinga Short LISWS 04/10/2024 Last Documented On 4 10:10AM ; [facility] Bipolar I disorder, most rec ent episode, depressed - mild Established Patient with Kinga Short LISWS 04/10/2024 Last Documented On 4 10:10AM ; [facility] Post-traumatic stress disorder Establ ished Patient with Kinga Short LISWS 04/10/2024 Last Documented On 4 10:10AM ; [facility] [D64.9 - Anemia, unspecified] anemia Med ical Established Patient with Denny Lomeli RACKING TECHNICIAN 04/10/2024 Last Documented On 4 6:51PM ; [facility] [Z68.43 - Body mass index [B TN] 50.0-59.9, adult] assessment of body mass index Medical Established Patient with Denny Lomeli RACKING TECHNICIAN 04/10/2024 Last Documented On 4 6:51PM ; [facility] Bipolar affective disorder, current episode depressed, mild Established Patient with Kinga Short LISWS 01/17/2024 Last Documented On 4 5:16PM ; [facility] Post-traumatic stress disorder Establ ished Patient with Kinga Short LISWS 01/17/2024 Last Documented On 4 5:16PM ; [facility] Undifferentiated attention d eficit disorder Established Patient with Kinga Short LISWS 01/17/2024 Last Documented On 4 5:16PM ; [facility] Visit for: screening for disorder Est ablished Patient with Kinga Short LISWS 01/17/2024 Last Documented On 4 5:16PM ; [facility] [Z68.43 - Body mass index [B TN] 50.0-59.9, adult] assessment of body mass index Medical Established Patient with Denny Lomeli RACKING TECHNICIAN 01/17/2024 Last Documented On 4 7:50PM ; [facility] Attention-deficit hyperactivity disorder Medical Established Patient with Denny Lomeli RACKING TECHNICIAN 01/17/2024 Last Documented On 4 7:50PM ; [facility] Diabetes Risk Test Score was three score 01/17/2024 Medical Established Patient with Denny Lomeli RACKING TECHNICIAN 01/17/2024 Last Documented On 4 7:50PM ; [facility] Visit for: screening for STD Medical Est ablished Patient with Denny Lomeli RACKING TECHNICIAN 01/17/2024 Last Documented On 4 7:50PM ; [facility] [Z68.32 - Body mass index [B TN] 32.0-32.9, adult] assessment of body mass index Medical Established Patient with Denny Lomeli RACKING TECHNICIAN 05/10/2023 Last Documented On 3 6:01PM ; [facility] Borderline personality disorder Medical Established Patient with Denny Lomeli RACKING TECHNICIAN 05/10/2023 Last Documented On 3 6:01PM ; [facility] Screening for diabetes mellitus Medical Established Patient with Dneny Lomeli RACKING TECHNICIAN 05/10/2023 Last Documented On 3 6:01PM ; [facility] Assessment of body mass index Medical Es tablished Patient with Denny Lomeli RACKING TECHNICIAN 08/12/2022 Last Documented On 2 2:45PM ; [facility] Bipolar affective disorder, current episode manic Telebehavioral Health with Belkisdionna Velarde LPCC-S 06/16/2022 Last Documented On 2 3:22PM ; [facility] Bipolar affective disorder, current episode manic Established Patient with Belkisdionna CoffeyVelarde LPCC-S 06/15/2022 Last Documented On 2 2:28PM ; [facility] Bipolar affective disorder, current episode depressed, severe with psychosis Telebehavioral Health with Belkisdionna CoffeyVelarde LPCC-S 06/15/2022 Last Documented On 2 3:29PM ; [facility] Assessment of body mass inde x [Body mass index [BMI] 50.0-59.9, adult] Open Access - Established with Leah Monique RACKING TECHNICIAN 06/15/2022 Last Documented On 2 9:36AM ; [facility] Bipolar I disorder, most rec ent episode, manic Open Access - Established with Leah Monique RACKING TECHNICIAN 06/15/2022 Last Documented On 2 9:36AM ; [facility] Post-traumatic stress disorder BH Establ ished Patient with Belkisdionna CoffeyVelarde LPCC-S 06/08/2022 Last Documented On 2 3:20PM ; [facility] No cough Medical Established Patient with Denny Armani RACKING TECHNICIAN 06/08/2022 Last Documented On 2 4:04PM ; [facility] Z68.43 - Body mass index [BM I] 50.0-59.9, adult Medical Established Patient with Denny Armani RACKING TECHNICIAN 06/08/2022 Last Documented On 2 4:04PM ; [facility] Borderline personality disor kyree Pt reported hx of sx/dx BH Established Patient with Belkisdionna CoffeyVelarde LPCC-S 05/27/2022 Last Documented On 2 4:08PM ; [facility] Assessment of body mass inde x [Body mass index [BMI] 50.0-59.9, adult] Open Access - Established with Leah Monique RACKING TECHNICIAN 05/27/2022 Last Documented On 2 7:41PM ; [facility] Diabetes Risk Test Score was three score 05/27/2022 Open Access - Established with Leah Monique RACKING TECHNICIAN 05/27/2022 Last Documented On 2 7:41PM ; [facility] Bipolar I disorder, most rec ent episode, manic BH Established Patient with Eufemia Mcneil LPCC-S 07/15/2021 Last Documented On 1 1:35AM ; [facility] Borderline personality disorder BH Estab lished Patient with Eufemia Mcneil LPCC-S 07/15/2021 Last Documented On 1 1:35AM ; [facility] Post-traumatic stress disorder BH Establ ished Patient with Eufemia Mcneil LPCC-S 07/15/2021 Last Documented On 1 1:35AM ; [facility] Assessment of visit for: lloyd strange for human immunodeficiency virus Medical Established Patient with Denny Armani RACKING TECHNICIAN 07/15/2021 Last Documented On 1 2:56PM ; [facility] Nicotine dependence Medical Established Patient with Denny Armani RACKING TECHNICIAN 07/15/2021 Last Documented On 1 2:56PM ; [facility] Tachycardia Medical Established Patient with Denny Armani RACKING TECHNICIAN 07/15/2021 Last Documented On 1 2:56PM ; [facility] Z68.43 - Body mass index [BM I] 50.0-59.9, adult Medical Established Patient with Denny Armani RACKING TECHNICIAN 07/15/2021 Last Documented On 1 2:56PM ; [facility] Bipolar I disorder, most rec ent episode, manic Established Patient with Kinga Short LISWS 06/17/2021 Last Documented On 1 10:17AM ; [facility] Borderline personality disor kyree per patient reported history Established Patient with Kinga Short LISWS 06/17/2021 Last Documented On 1 10:17AM ; [facility] Nicotine dependence Established Patient with Kinga Short LISWS 06/17/2021 Last Documented On 1 10:17AM ; [facility] Post-traumatic stress disorder Establ ished Patient with Kinga Short LISWS 06/17/2021 Last Documented On 1 10:17AM ; [facility] Body mass index Medical Established Patient with Denny Armani RACKING TECHNICIAN 06/17/2021 Last Documented On 1 5:23PM ; [facility] Morbid obesity Medical Established Patient with Denny Armani RACKING TECHNICIAN 06/17/2021 Last Documented On 1 5:23PM ; [facility] Nicotine dependence uncomplicated Medica l Established Patient with Denny Armani RACKING TECHNICIAN 06/17/2021 Last Documented On 1 5:23PM ; [facility] Z68.42 - Body mass index [BM I] 45.0-49.9, adult Medical Established Patient with Denny Armani RACKING TECHNICIAN 06/17/2021 Last Documented On 1 5:23PM ; [facility] 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 disorders [employer] with Teagan Danielsarlyn zuniga RACKING TECHNICIAN 05/15/2021 Last Documented On 1 7:49AM ; [facility] Mood disorders, NOS per blaze ent reported history Established Patient with Kinga Short LISWS 04/23/2021 Last Documented On 1 7:15PM ; [facility] Post-traumatic stress disorder Establ ished Patient with Kinga Short LISWS 04/23/2021 Last Documented On 1 7:15PM ; [facility] Morbid obesity Medical Established Patient with Denny Armani RACKING TECHNICIAN 04/23/2021 Last Documented On 1 12:31PM ; [facility] Otitis externa Medical Established Patient with Denny Armani RACKING TECHNICIAN 04/23/2021 Last Documented On 1 12:31PM ; [facility] Z68.42 - Body mass index [BM I] 45.0-49.9, adult Medical Established Patient with Denny Armani RACKING TECHNICIAN 04/23/2021 Last Documented On 1 12:31PM ; [facility] Post-traumatic stress disorder Establ ished Patient with Kinga Short LISWS 04/01/2021 Last Documented On 1 10:05PM ; [facility] Morbid obesity Medical Established Patient with Denny Armani RACKING TECHNICIAN 04/01/2021 Last Documented On 1 4:45PM ; [facility] Z68.42 - Body mass index [BM I] 45.0-49.9, adult Medical Established Patient with Denny Armani RACKING TECHNICIAN 04/01/2021 Last Documented On 1 4:45PM ; [facility] Post-traumatic stress disorder Establ ished Patient with Kinga Short LISWS 03/17/2021 Last Documented On 1 11:59AM ; [facility] Assessment of visit for: lloyd strange for human immunodeficiency virus Medical New Patient with Denny Armani RACKING TECHNICIAN 03/17/2021 Last Documented On 1 4:06PM ; [facility] Diabetes Risk Test Score was one score 03/17/2021 Medical New Patient with Denny Lomeli RACKING TECHNICIAN 03/17/2021 Last Documented On 1 4:06PM ; [facility] Hypertension Medical New Patient with Dennyartem doherty RACKING TECHNICIAN 03/17/2021 Last Documented On 1 4:06PM ; [facility] Morbid obesity Medical New Patient with Denny Maryjo doherty RACKING TECHNICIAN 03/17/2021 Last Documented On 1 4:06PM ; [facility] Post-traumatic stress disorder Medical New Patie nt with Dennyartem Landonen RACKING TECHNICIAN 03/17/2021 Last Documented On 1 4:06PM ; [facility] Z68.42 - Body mass index [BM I] 45.0-49.9, adult Medical New Patient with Denny Lomeli RACKING TECHNICIAN 03/17/2021 Last Documented On 1 4:06PM ; [facility] Work Phone: 1(281) 719-905008-22-2024 Evaluation note Includes: Assessments for all patient encounters Findings Encounter Date Attention-deficit hyperactiv ity disorder Established Patient with Kinga Short LISWS 06/13/2024 Last Documented On 4 3:28PM ; [facility] Bipolar I disorder, most rec ent episode, depressed - mild Established Patient with Kinga Short LISWS 06/13/2024 Last Documented On 4 3:28PM ; [facility] Post-traumatic stress disorder Establ ished Patient with Kinga Short LISWS 06/13/2024 Last Documented On 4 3:28PM ; [facility] [E11.9 - Type 2 diabetes gloria litus without complications] type 2 diabetes mellitus Medical Established Patient with Dennyartem Landonen RACKING TECHNICIAN 06/13/2024 Last Documented On 4 7:36PM ; [facility] [F41.1 - Generalized anxiety disorder] generalized anxiety disorder Medical Established Patient with Denny Armani RACKING TECHNICIAN 06/13/2024 Last Documented On 4 7:36PM ; [facility] [I10 - Essential (primary) hypertension] essential hypertension Medical Established Patient with Denny Lomeli RACKING TECHNICIAN 06/13/2024 Last Documented On 4 7:36PM ; [facility] [N94.6 - Dysmenorrhea, unspe cified] dysmenorrhea Medical Established Patient with Denny Lomeli RACKING TECHNICIAN 06/13/2024 Last Documented On 4 7:36PM ; [facility] [Z68.43 - Body mass index [B TN] 50.0-59.9, adult] assessment of body mass index Medical Established Patient with Denny Lomeli RACKING TECHNICIAN 06/13/2024 Last Documented On 4 7:36PM ; [facility] Encounter for Immunization Medical Estab lished Patient with Denny Lomeli RACKING TECHNICIAN 06/13/2024 Last Documented On 4 7:36PM ; [facility] Venipuncture was performed Medical Estab lished Patient with Denny Lomeli RACKING TECHNICIAN 06/13/2024 Last Documented On 4 7:36PM ; [facility] Attention-deficit hyperactivity disorder Established Patient with Kinga Short LISWS 04/10/2024 Last Documented On 4 10:10AM ; [facility] Bipolar I disorder, most rec ent episode, depressed - mild BH Established Patient with Kinga Short LISWS 04/10/2024 Last Documented On 4 10:10AM ; [facility] Post-traumatic stress disorder Establ ished Patient with Kinga Short LISWS 04/10/2024 Last Documented On 4 10:10AM ; [facility] [D64.9 - Anemia, unspecified] anemia Med ical Established Patient with Denny Lomeli RACKING TECHNICIAN 04/10/2024 Last Documented On 4 6:51PM ; [facility] [Z68.43 - Body mass index [B TN] 50.0-59.9, adult] assessment of body mass index Medical Established Patient with Denny Lomeli RACKING TECHNICIAN 04/10/2024 Last Documented On 4 6:51PM ; [facility] Bipolar affective disorder, current episode depressed, mild Established Patient with Kinga Short LISWS 01/17/2024 Last Documented On 4 5:16PM ; [facility] Post-traumatic stress disorder BH Establ ished Patient with Kinga Short LISWS 01/17/2024 Last Documented On 4 5:16PM ; [facility] Undifferentiated attention d eficit disorder Established Patient with Kinga Short LISWS 01/17/2024 Last Documented On 4 5:16PM ; [facility] Visit for: screening for disorder BH Est ablished Patient with Kinga Short LISWS 01/17/2024 Last Documented On 4 5:16PM ; [facility] [Z68.43 - Body mass index [B TN] 50.0-59.9, adult] assessment of body mass index Medical Established Patient with Denny Lomeli RACKING TECHNICIAN 01/17/2024 Last Documented On 4 7:50PM ; [facility] Attention-deficit hyperactivity disorder Medical Established Patient with Dennyartem Lomeli RACKING TECHNICIAN 01/17/2024 Last Documented On 4 7:50PM ; [facility] Diabetes Risk Test Score was three score 01/17/2024 Medical Established Patient with Dennyartem Landonen RACKING TECHNICIAN 01/17/2024 Last Documented On 4 7:50PM ; [facility] Visit for: screening for STD Medical Est ablished Patient with Dennyartem Lomeli RACKING TECHNICIAN 01/17/2024 Last Documented On 4 7:50PM ; [facility] [Z68.32 - Body mass index [B TN] 32.0-32.9, adult] assessment of body mass index Medical Established Patient with Dennyartem Lomeli RACKING TECHNICIAN 05/10/2023 Last Documented On 3 6:01PM ; [facility] Borderline personality disorder Medical Established Patient with Denny Armani RACKING TECHNICIAN 05/10/2023 Last Documented On 3 6:01PM ; [facility] Screening for diabetes mellitus Medical Established Patient with Denny Armani RACKING TECHNICIAN 05/10/2023 Last Documented On 3 6:01PM ; [facility] Assessment of body mass index Medical Es tablished Patient with Dennyartem Landonen RACKING TECHNICIAN 08/12/2022 Last Documented On 2 2:45PM ; [facility] Bipolar affective disorder, current episode manic [facility] with Belkisdionna Velarde LPCC-S 06/16/2022 Last Documented On 2 3:22PM ; [facility] Bipolar affective disorder, current episode manic Established Patient with Belkisdionna Velarde LPCC-S 06/15/2022 Last Documented On 2 2:28PM ; [facility] Bipolar affective disorder, current episode depressed, severe with psychosis [facility] with Belkisdionna Velarde LPCC-S 06/15/2022 Last Documented On 2 3:29PM ; [facility] Assessment of body mass inde x [Body mass index [BMI] 50.0-59.9, adult] Open Access - Established with Leah Monique RACKING TECHNICIAN 06/15/2022 Last Documented On 2 9:36AM ; [facility] Bipolar I disorder, most rec ent episode, manic Open Access - Established with Leah Monique RACKING TECHNICIAN 06/15/2022 Last Documented On 2 9:36AM ; [facility] Post-traumatic stress disorder Establ ished Patient with Belkisdionna Velarde LPCC-S 06/08/2022 Last Documented On 2 3:20PM ; [facility] No cough Medical Established Patient with Denny Armani RACKING TECHNICIAN 06/08/2022 Last Documented On 2 4:04PM ; [facility] Z68.43 - Body mass index [BM I] 50.0-59.9, adult Medical Established Patient with Denny Armani RACKING TECHNICIAN 06/08/2022 Last Documented On 2 4:04PM ; [facility] Borderline personality disor kyree Pt reported hx of sx/dx Established Patient with Belkisdionna Velarde LPCC-S 05/27/2022 Last Documented On 2 4:08PM ; [facility] Assessment of body mass inde x [Body mass index [BMI] 50.0-59.9, adult] Open Access - Established with Leah Monique RACKING TECHNICIAN 05/27/2022 Last Documented On 2 7:41PM ; [facility] Diabetes Risk Test Score was three score 05/27/2022 Open Access - Established with Leah Monique RACKING TECHNICIAN 05/27/2022 Last Documented On 2 7:41PM ; [facility] Bipolar I disorder, most rec ent episode, manic Established Patient with Eufemia Mcneil LPCC-S 07/15/2021 Last Documented On 1 1:35AM ; [facility] Borderline personality disorder Estab lished Patient with Eufemia Mcneil LPCC-S 07/15/2021 Last Documented On 1 1:35AM ; [facility] Post-traumatic stress disorder Establ ished Patient with Eufemia Mcneil LPCC-S 07/15/2021 Last Documented On 1 1:35AM ; [facility] Assessment of visit for: lloyd strange for human immunodeficiency virus Medical Established Patient with Denny Armani RACKING TECHNICIAN 07/15/2021 Last Documented On 1 2:56PM ; [facility] Nicotine dependence Medical Established Patient with Denny Armani RACKING TECHNICIAN 07/15/2021 Last Documented On 1 2:56PM ; [facility] Tachycardia Medical Established Patient with Denny Armani RACKING TECHNICIAN 07/15/2021 Last Documented On 1 2:56PM ; [facility] Z68.43 - Body mass index [BM I] 50.0-59.9, adult Medical Established Patient with Dennyartem Lomeli RACKING TECHNICIAN 07/15/2021 Last Documented On 1 2:56PM ; [facility] Bipolar I disorder, most rec ent episode, manic Established Patient with Kinga Short LISWS 06/17/2021 Last Documented On 1 10:17AM ; [facility] Borderline personality disor kyree per patient reported history Established Patient with Kinga Short LISWS 06/17/2021 Last Documented On 1 10:17AM ; [facility] Nicotine dependence Established Patient with Kinga Short LISWS 06/17/2021 Last Documented On 1 10:17AM ; [facility] Post-traumatic stress disorder Establ ished Patient with Kinga Short LISWS 06/17/2021 Last Documented On 1 10:17AM ; [facility] Body mass index Medical Established Patient with Denny Armani RACKING TECHNICIAN 06/17/2021 Last Documented On 1 5:23PM ; [facility] Morbid obesity Medical Established Patient with Denny Armani RACKING TECHNICIAN 06/17/2021 Last Documented On 1 5:23PM ; [facility] Nicotine dependence uncomplicated Medica l Established Patient with Denny Armani RACKING TECHNICIAN 06/17/2021 Last Documented On 1 5:23PM ; [facility] Z68.42 - Body mass index [BM I] 45.0-49.9, adult Medical Established Patient with Denny Armani RACKING TECHNICIAN 06/17/2021 Last Documented On 1 5:23PM ; [facility] 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 disorders 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 RACKING TECHNICIAN 05/15/2021 Last Documented On 1 7:49AM ; [facility] Mood disorders, NOS per blaze ent reported history Established Patient with Kinga Short LISWS 04/23/2021 Last Documented On 1 7:15PM ; [facility] Post-traumatic stress disorder Establ ished Patient with Kinga Short LISWS 04/23/2021 Last Documented On 1 7:15PM ; [facility] Morbid obesity Medical Established Patient with Denny Armani RACKING TECHNICIAN 04/23/2021 Last Documented On 1 12:31PM ; [facility] Otitis externa Medical Established Patient with Denny Armani RACKING TECHNICIAN 04/23/2021 Last Documented On 1 12:31PM ; [facility] Z68.42 - Body mass index [BM I] 45.0-49.9, adult Medical Established Patient with Denny Armani RACKING TECHNICIAN 04/23/2021 Last Documented On 1 12:31PM ; [facility] Post-traumatic stress disorder Establ ished Patient with Kinga Short LISWS 04/01/2021 Last Documented On 1 10:05PM ; [facility] Morbid obesity Medical Established Patient with Denny Lomeli RACKING TECHNICIAN 04/01/2021 Last Documented On 1 4:45PM ; [facility] Z68.42 - Body mass index [BM I] 45.0-49.9, adult Medical Established Patient with Dennyartem Lomeli RACKING TECHNICIAN 04/01/2021 Last Documented On 1 4:45PM ; [facility] Post-traumatic stress disorder BH Establ ished Patient with Kinga Short LISWS 03/17/2021 Last Documented On 1 11:59AM ; [facility] Assessment of visit for: lloyd strange for human immunodeficiency virus Medical New Patient with Dennyartem Lomeli RACKING TECHNICIAN 03/17/2021 Last Documented On 1 4:06PM ; [facility] Diabetes Risk Test Score was one score 03/17/2021 Medical New Patient with Denny Lomeli RACKING TECHNICIAN 03/17/2021 Last Documented On 1 4:06PM ; [facility] Hypertension Medical New Patient with Denny Maryjo doherty RACKING TECHNICIAN 03/17/2021 Last Documented On 1 4:06PM ; [facility] Morbid obesity Medical New Patient with Denny Maryjo doherty RACKING TECHNICIAN 03/17/2021 Last Documented On 1 4:06PM ; [facility] Post-traumatic stress disorder Medical New Patie nt with Dennyartem Lomeli RACKING TECHNICIAN 03/17/2021 Last Documented On 1 4:06PM ; [facility] Z68.42 - Body mass index [BM I] 45.0-49.9, adult Medical New Patient with Dennyartem Lomeli RACKING TECHNICIAN 03/17/2021 Last Documented On 1 4:06PM ; [facility] Work Phone: [phone]) 859-135808-22-2024 Progress note* Progress note Date Encounter Last Documented by 06/13/2024 Medical Established Patient Last documented on 06/13/2024; 7:36 PM, Denny Lomeli CNP; [facility] Active Problems & Conditions - F90.9 - Attention-deficit Hyperactivity Disorder - F31.31 - Bipolar I Disorder, Most Recent Episode, Depressed Mild - E11.9 - Diabetes Mellitus Type 2 Without Complication - N94.6 - Dysmenorrhea - F43.10 - Post-traumatic Stress Disorder Chief Complaint The Chief Complaint is: F/u on mental health. Patient stopped metformin and has gained weight. Patient has appointment scheduled with Dr. Donato. Patient has been menstruating since stopping the metformin 4-5 months. Does not think buspirone is working because of increased anxiety. Patient did not get blood work completed. Referred Here Not referred by urgent care clinic and not the emergency room. No prior encounters. - Data to be reviewed: no clinical lab tests History of Present Illness Cordelia Guaman is a 24 year old female. - Allergy list reviewed - Reviewed Medications - Medication list reviewed - Date of last menstruation patient unsure of date - test - would not like a test Presents with sig other , anxiety is not good and has been bleeding ever since stopping metformin r/t intolerance 3 months ago , has appt with vascular tech but not til october agreeable to progesterone ocp to help get bleeding to stop Current Medication - ARIPiprazole 5 MG Oral Tablet take 1 tablet by mouth once daily, 30 days, 5 refills - Intuniv 1 MG Oral Tablet Extended Release 24 Hour take 1 tablet by mouth once daily at bedtime, 30 days, 5 refills - lamoTRIgine 100 MG Oral Tablet take 1 tablet by mouth once daily, 30 days, 5 refills - MiraLax 17 GM/SCOOP Oral Powder mix 1 scoop with 8 ounces once daily, 30 days, 2 refills - Narcan 4 MG/0.1ML Nasal Liquid spray in nostril for symptoms of overdose , may repeat in 2 minutes if symptoms persist, 1 days, 0 refills - Prazosin HCl 1 MG Oral Capsule take 1 capsule by mouth twice daily, 30 days, 5 refills - Sertraline HCl 50 MG Oral Tablet take 1 tablet by mouth once daily, 30 days, 5 refills - traZODone HCl 100 MG Oral Tablet take 1 tablet by mouth twice daily, 30 days, 5 refills Past Medical/Surgical History Reported: Has sex without a condom. Medical: No previous hospitalizations. Chronic illness and Sexually transmitted infection Partners sexually transmitted infection status known. Immunization History: Recent immunization for flu. Exposure: Exposure to COVID-19. : Previously 1 time(s) and para having 0 live (s). Not planning a in the next year. Diagnoses: Polycystic Ovarian Syndrome (PCOS). Migraine headache. Psychiatric disorders biopolar disorder Anxiety disorder POTS. Procedural: - Insertion of ear pressure equalization tubes in both ears Surgical: - Tonsillectomy - Tonsillectomy with adenoidectomy Social History Environmental Exposure: Secondhand cigarette smoke exposure. Behavioral: Not a current tobacco user. Tobacco use: Using electronic cigarettes/vaping. Alcohol: A social drinker. Drug Use: Not using drugs denied by patient. Sexual: Sexually active age of sexual partner is years old 21, sexual orientation Lesbian or Shin, gender identity Other, and control is being practiced Not Using - In Same Sex Relationship. Allergies - Abilify Reaction: groggy - Augmentin Reaction: Shock - Metformin Reaction: Nausea, Vomiting - NO KNOWN ENVIRONMENTAL ALLERGIES - NO KNOWN FOOD ALLERGIES - Sertraline Reaction: slow/groggy - Trazodone Hydrochloride Reaction: Panic attack Family History Paternal: Systemic hypertension Oncologic disorder Maternal: Systemic hypertension Epilepsy and recurrent seizures Psychiatric disorders Oncologic disorder Fraternal: Psychiatric disorders Review Of Systems Head: No head symptoms. Neck: No neck symptoms. Eyes: No eye symptoms. Otolaryngeal: No ear symptoms, no nasal symptoms, no nose and sinus finding, no throat symptoms, no oral cavity symptoms, and no jaw symptoms. Breasts: No breast symptoms. Cardiovascular: No cardiovascular symptoms and no chest pain or discomfort. Pulmonary: No pulmonary symptoms. Gastrointestinal: No gastrointestinal symptoms. Genitourinary: No genitourinary symptoms. Vaginal discharge has been on period x 3 months , not heavy and no clotting. Musculoskeletal: No musculoskeletal symptoms. Neurological: No neurological symptoms. Psychological: Anxiety, depression, and sleep. Skin: No skin symptoms. Cardiovascular: Edema not present. Physical Findings - Vitals taken 06/13/2024 04:45 pm BP-Sitting R151/98 mmHg BP Cuff SizeLarge Pulse Rate-[id number] bpm Encfiv67 in Kqbext015 lbs 9.6 oz Body Mass Index57.9 kg/m2 Body Surface Area2.4 m2 Oxygen Vhhtzvkdvx75 % - Vitals taken 06/13/2024 05:21 pm BP-Sitting R154/86 mmHg BP Cuff SizeLarge - Vitals taken 06/13/2024 05:46 pm manual large BP-Sitting R144/84 mmHg BP Cuff SizeLarge Vital Signs: - Systolic Blood Pressure > or = 140 mmHg. - Diastolic blood pressure 80-89 mmHg. General Appearance: - Awake. - Alert. - Well developed. - Well nourished. - In no acute distress. Lungs: - Respiration rhythm and depth was normal. - Clear to auscultation. Cardiovascular: Heart Rate And Rhythm: - Normal. Heart Sounds: - Normal. Murmurs: - No murmurs were heard. Abdomen: Visual Inspection: - Abdomen was normal on visual inspection. Musculoskeletal System: General/bilateral: - Normal movement of all extremities. Skin: - General appearance was normal. Tests Blood Analysis: Hemoglobin Studies: ValueDate Blood hemoglobin A1c 7.1%06/13/2024 Blood Endocrine Laboratory Tests: Value Blood glucose level by fingerstick Non-fasting 112 mg/dl Laboratory-based Chemistry: Other Laboratory Tests: Screening for sexually transmitted infections was not performed. Laboratory Studies: Vascular Procedures: Right Antecubital Space. Left Antecubital Space. Assessment - Z68.43 - Body mass index [BMI] 50.0-59.9, adult - Z01.812 - Encounter for preprocedural laboratory examination - Z23 - Encounter for immunization - I10 - Essential (primary) hypertension - N94.6 - Dysmenorrhea, unspecified - E11.9 - Type 2 diabetes mellitus without complications - F41.1 - Generalized anxiety disorder Therapy - Immunization administration age 18 or younger, with counseling, first / only vaccine component and age 18 or younger, with counseling, each additional vaccine component. Vaccinations - HPV-Gardasil 9 Dose #1 Status: Administered Date: 06/13/2024 - PCV (Prevnar-20) Dose #1 Status: Administered Date: 06/13/2024 - Received dose of human papilloma virus vaccine - Received dose of pneumococcal conjugate vaccine, 20-valent, IM use Counseling/Education - No not wishing to stop using electronic cigarettes/vaping - Discussed nutritional needs teach healthy choices including fruits and vegetables - Patient education about a proper diet - Referred Patient to a Diabetes Self-Management Program - Discussed concerns about exercise: promote physical activity Plan StartCited- Dysmenorrhea, unspecified Outside Diagn Tests/Ultrasound: US Transvaginal ([id number]) Instructions: [place] Slynd 4 MG tablet take 1 tablet by mouth at the same time everyday to help regulate your period, 28 days, 2 refills EndCited StartCited- Generalized anxiety disorder busPIRone HCl 10 MG tablet take 1 tablet by mouth twice daily (d/c 5 mg rx), 30 days, 5 refills EndCited StartCited- Other Follow-up Appointment 1 month med f/u and 2nd hpv EndCited StartCited- Type 2 diabetes mellitus without complications Januvia 50 MG tablet take 1 tablet by mouth once daily, 30 days, 5 refills Lisinopril 5 MG tablet take 1 tablet by mouth once daily, 30 days, 5 refills Atorvastatin Calcium 20 MG tablet take 1 tablet by mouth once daily at bedtime, 30 days, 5 refills Blood Glucose System Ren Kit use to check sugars once daily (use what is covered), 30 days, 0 refills Blood Glucose Test strip use to cehck sugars (dispense what is covered), 90 days, 3 refills Alcohol Pads 70% pad use to cleanse skin prior to checking blood sugars, 90 days, 3 refills CareSens Lancets each use to check sugars once daily (dispense what is covered), 90 days, 3 refills EndCited Modify diet , limit starchy carbs such as breads / pastas / sweets. Other - Patient tolerated venipuncture well; - Number of attempts for venipuncture two Practice Management Hemoglobin A1c level >=7.0 and < 8.0%. Care Team - Denny Lomeli CNP Health Reminders - Assess BMI satisfied 06/13/2024. - Assess Tobacco Use satisfied 06/13/2024. - Follow Up Plan BMI Management satisfied 06/13/2024. - Hemoglobin A1c satisfied 06/13/2024. - Statin Therapy Needed satisfied 06/13/2024. User Defined 1 Not planning a in the next year. [facility]08-22-2024 Progress note* Progress note Date Encounter Last Documented by 06/13/2024 Established Patient Last docu mented on 06/14/2024; 3:28 PM, Kinga RUDOLPH; [facility] Active Problems & Conditions - F90.9 - Attention-deficit Hyperactivity Disorder - F31.31 - Bipolar I Disorder, Most Recent Episode, Depressed Mild - E11.9 - Diabetes Mellitus Type 2 Without Complication - N94.6 - Dysmenorrhea - F43.10 - Post-traumatic Stress Disorder Chief Complaint The Chief Complaint is: [facility] met with patient to follow-up regarding mood and medications. Patient had requested to meet with a different [facility] in office but was not avialable and agreeable to meet with this provider. Patient reports noticing that anxiety has continued to feel increased recently. Patient reports continued stressors related to physical health. Patient has scheduled with specialists, but appointment is not for several weeks still. Patient reports that Buspar is not helpful with increased anxiety. Patient reports experiencing nightmares and vivid dreams again and waking up with increased anxiety. Patient reports no thoughts of harm toward self or others. History of Present Illness Cordelia Guaman is a 24 year old female. - Appetite not normal - Irritability - Anxiety - Nightmares - Energy level is fair - Feeling guilty - Easily distracted - Racing thoughts - No depression - No loss of interest in activities - No social isolation Current Medication - Alcohol Pads 70% use to cleanse skin prior to checking blood sugars, 90 days, 3 refills - ARIPiprazole 5 MG Oral Tablet take 1 tablet by mouth once daily, 30 days, 5 refills - Atorvastatin Calcium 20 MG Oral Tablet take 1 tablet by mouth once daily at bedtime, 30 days, 5 refills - Blood Glucose System Ren Kit use to check sugars once daily (use what is covered), 30 days, 0 refills - Blood Glucose Test In Vitro Strip use to cehck sugars (dispense what is covered), 90 days, 3 refills - busPIRone HCl 10 MG Oral Tablet take 1 tablet by mouth twice daily (d/c 5 mg rx), 30 days, 5 refills - CareSens Lancets Miscellaneous use to check sugars once daily (dispense what is covered), 90 days, 3 refills - Intuniv 1 MG Oral Tablet Extended Release 24 Hour take 1 tablet by mouth once daily at bedtime, 30 days, 5 refills - Januvia 50 MG Oral Tablet take 1 tablet by mouth once daily, 30 days, 5 refills - lamoTRIgine 100 MG Oral Tablet take 1 tablet by mouth once daily, 30 days, 5 refills - Lisinopril 5 MG Oral Tablet take 1 tablet by mouth once daily, 30 days, 5 refills - MiraLax 17 GM/SCOOP Oral Powder mix 1 scoop with 8 ounces once daily, 30 days, 2 refills - Narcan 4 MG/0.1ML Nasal Liquid spray in nostril for symptoms of overdose , may repeat in 2 minutes if symptoms persist, 1 days, 0 refills - Prazosin HCl 1 MG Oral Capsule take 1 capsule by mouth twice daily, 30 days, 5 refills - Sertraline HCl 50 MG Oral Tablet take 1 tablet by mouth once daily, 30 days, 5 refills - Slynd 4 MG Oral Tablet take 1 tablet by mouth at the same time everyday to help regulate your period, 28 days, 2 refills - traZODone HCl 100 MG Oral Tablet take 1 tablet by mouth twice daily, 30 days, 5 refills Social History Medical: Chronic illness. Environmental Exposure: No secondhand cigarette smoke exposure. Personal: Recent emotional stress. Behavioral: Not a current tobacco user. Tobacco use: Using electronic cigarettes/vaping. Alcohol: Not using alcohol. Drug Use: Not using drugs. Physical Findings General Appearance: - Normal Appearance. Neurological: - Estimated intelligence was normal. - Oriented to time, place, and person. - No hallucinations. - Judgement was not impaired. Speech: - Is Normal. Psychiatric: - Mood was anxious. - Mood was concerned. - Attitude Open. Demonstrated Behavior: - Motor Activity Normal Activity. - Eye Contact Appropriate. Affect: - Congruent with the mood. Thought Content: - Insight was intact. - No delusions. - No suicidal ideation. - No Passive thoughts of . - No suicidal plans. - No suicidal intent. - No homicidal ideations. - No homicidal plans. - No homicidal intent. Past Medical: - No repetitive self injurious behavior. Assessment - F90.9 - Attention-deficit hyperactivity disorder, unspecified type - F31.31 - Bipolar disorder, current episode depressed, mild - F43.10 - Post-traumatic stress disorder, unspecified Therapy - Brief solution-focused therapy. - Adherent with medications. - Visit 30 Minutes. - Plan - PCP to have patient increase Buspar to 10mg twice daily and continue Prazosin 1mg in the morning and increase to 2 mg at bedtime. Patient agreeable to plan and Collaborated with patient and provider: Counseling/Education P offered active and supportive listening and processed recent stressors. BHP discussed coping skills and supports to implement in managing increased anxiety such as tools learned previously in therapy. BHP discussed sleep hygiene strategies that can be implemented. P encouraged patient to follow-up with specialists as scheduled. Plan P to task other provider to follow-up with patient regarding medication changes. Care Team - Denny Lomeli CNP Health Reminders - Assess Tobacco Use satisfied 06/13/2024. [facility]06-19-2024 Instructions Includes: Instructions for all patient encounters Education and Decision Aids were provided during visit for: Discussed nutritional needs teach healthy choices including fruits and vegetables Last Documented On 4 4:46PM ; [facility] Patient education about a pr oper diet Last Documented On 4 4:46PM ; [facility] Discussed concerns about exe rcise : promote physical activity Last Documented On 4 4:46PM ; [facility] Not requesting contraception Last Documented On 4 4:46PM ; [facility] offered active and suppo rtive listening and processed current stressors related to getting medications. ~[facility] discussed coping skills and supports to implement in daily routine. ~[facility] discussed progress patient has felt they have made recently and encouraged continued follow-up with providers to address health Last Documented On 4 5:16PM ; [facility] Discussed nutritional needs teach healthy choices including fruits and vegetables Last Documented On 4 7:14PM ; [facility] Patient education about a pr oper diet Last Documented On 4 7:14PM ; [facility] Discussed concerns about exe rcise : promote physical activity Last Documented On 4 7:14PM ; [facility] Not requesting contraception Last Documented On 4 7:14PM ; [facility] Discussed nutritional needs teach healthy choices including fruits and vegetables Last Documented On 3 5:15PM ; [facility] Patient education about a pr oper diet Last Documented On 3 5:15PM ; [facility] Discussed concerns about exe rcise : promote physical activity Last Documented On 3 5:15PM ; [facility] Discussed nutritional needs teach healthy choices including fruits and vegetables Last Documented On 2 1:42PM ; [facility] Patient education about a pr oper diet Last Documented On 2 1:42PM ; [facility] Discussed concerns about exe rcise : promote physical activity Last Documented On 2 1:42PM ; [facility] and supportive feedback; normalized emotions and feelings, also provided pt time to process any current stressors. ~Promoted and encouraged follow-through with scheduling psychiatric services Last Documented On 2 3:21PM ; [facility] provided supportive, empa thic listening and reflective feedback. ~Explored, encouraged, and supported the pt to discuss current sx/mood, assess risk for harm/need, coping mechanisms, support network and safety planning. ~Supported pt's plan to f/up with Dr. Carney, as planned at [place], [place]. ~Encouraged pt to use safety plan, if needed to ensure she remains safe Last Documented On 2 2:27PM ; [facility] Discussed nutritional needs teach healthy choices including fruits and vegetables Last Documented On 2 3:20PM ; [facility] Patient education about a pr oper diet Last Documented On 2 3:20PM ; [facility] Discussed concerns about exe rcise : promote physical activity ~ ~Will restart trazodone and prazosin ~ ~Patient is planning to have brother stay with her for a few days for emotional support ~ ~Follow up with PCP at next scheduled visit ~ ~Call psychiatrist office to schedule appt ~ ~Call counselor Last Documented On 2 9:35AM ; [facility] Provided supportive listenin g and empathic feedback; encouraged, explored, and supported the pt as she processed current symptoms, Issues, and concerns. ~Discussed past tx and explored current needs/options. Acknowledged and validated pt's thoughts and emotions. ~Explored coping mechanisms and support network; utilized opportunity for safety planning; promoted seeking positive support and seeking help, as needed Last Documented On 2 3:28PM ; [facility] provided active listenin g, support and helped pt process though current symptoms and stressor(s). Discussed and explored past effectiveness of medication; identified objectives and future goals; promoted use of healthy coping mechanisms, and self-care practices Last Documented On 2 3:19PM ; [facility] Reviewed side effects and Ri sks/Benefits analysis Last Documented On 2 3:19PM ; [facility] Discussed nutritional needs teach healthy choices including fruits and vegetables Last Documented On 2 3:15PM ; [facility] Patient education about a pr oper diet Last Documented On 2 3:15PM ; [facility] Discussed concerns about exe rcise : promote physical activity Last Documented On 2 3:15PM ; [facility] introduced pt to HPWO in tegrated model of care ~[facility] offered active listening and supportive feedback; normalized emotions and feelings, also provided pt time to process any current stressors ~[facility] discussed potential benefits of counseling and supported re-engaging, as needed. ~[facility] encouraged pt to continue to make time to implement self-care regimen and use coping methods, as needed Last Documented On 2 4:07PM ; [facility] Discussed nutritional needs teach healthy choices including fruits and vegetables Last Documented On 2 3:15PM ; [facility] Patient education about a pr oper diet Last Documented On 2 3:15PM ; [facility] Inquiry and counseling about medication administration and compliance Last Documented On 2 7:37PM ; [facility] Discussed concerns about exe rcise : promote physical activity Last Documented On 2 3:15PM ; [facility] Patient goals discussed Last Documented On 2 7:37PM ; [facility] Ansewred pt's questions re B orderlline Personality D/O and Bipolar D/O raised by psychiatrist at [facility]. ~Validated and normalized patient?s feelings while assisting to process recent events Last Documented On 1 1:33AM ; [facility] Discussed nutritional needs teach healthy choices including fruits and vegetables Last Documented On 1 2:04PM ; [facility] Patient education about a pr oper diet Last Documented On 1 2:04PM ; [facility] Discussed concerns about exe rcise : promote physical activity Last Documented On 1 2:04PM ; [facility] provided active listenin g, support and helped patient process through current symptoms and stressors with ongoing mental health concerns and medication changes. ~P discussed coping skills and supports that patient is implementing. discussed implementing coping skills as discussed with counseling and attending weekly appointments as scheduled with counselor. Patient was encouraged to continue writing down concerns with medications and discuss with providers. ~[facility] reminded patient of crisis resources should they be needed. Patient reports having crisis resources and could return to ER Last Documented On 1 10:17AM ; [facility] Patient education about a pr oper diet Last Documented On 1 5:17PM ; [facility] Patient education about meal planning Last Documented On 1 5:17PM ; [facility] Education about changing eat ing habits Last Documented On 1 5:17PM ; [facility] Patient education about high fiber diet Last Documented On 1 5:17PM ; [facility] Patient education about low fat diet Last Documented On 1 5:17PM ; [facility] Patient education about low cholesterol diet Last Documented On 1 5:17PM ; [facility] Patient education about low carbohydrate diet Last Documented On 1 5:17PM ; [facility] Patient education about high protein diet Last Documented On 1 5:17PM ; [facility] offered active and suppo rtive listening, normalized emotions and feelings, and processed current stressors. ~[facility] discussed resources for finding a counselor and provided list of local resources. ~[facility] discussed patients coping skills and supports and encouraged patient to continue to implement. [facility] reminded patient of crisis resources should they be needed Last Documented On 1 7:15PM ; [facility] Discussed nutritional needs teach healthy choices including fruits and vegetables Last Documented On 1 11:38AM ; [facility] Patient education about a pr oper diet Last Documented On 1 11:38AM ; [facility] Patient education about a pr oper diet Last Documented On 1 12:19PM ; [facility] Patient education about meal planning Last Documented On 1 12:19PM ; [facility] Education about changing eat ing habits Last Documented On 1 12:19PM ; [facility] Patient education about high fiber diet Last Documented On 1 12:19PM ; [facility] Patient education about low fat diet Last Documented On 1 12:19PM ; [facility] Patient education about low cholesterol diet Last Documented On 1 12:19PM ; [facility] Patient education about low carbohydrate diet Last Documented On 1 12:19PM ; [facility] Patient education about high protein diet Last Documented On 1 12:19PM ; [facility] Discussed concerns about exe rcise : promote physical activity Last Documented On 1 11:38AM ; [facility] provided active listenin g, support and helped patient process through current symptoms and stressors related to family conflict. [facility] discussed coping skills and supports with patient that can be implemented and reminded patient of ways to access additional resources. [facility] discussed crisis resources and plan. Patient has crisis resources still available should they be needed Last Documented On 1 7:04PM ; [facility] Discussed nutritional needs teach healthy choices including fruits and vegetables Last Documented On 1 3:57PM ; [facility] Patient education about a pr oper diet Last Documented On 1 3:57PM ; [facility] Discussed concerns about exe rcise : promote physical activity Last Documented On 1 3:57PM ; [facility] to [facility] integrated model of care. [facility] and PCP reassured patient of not sharing information with anyone unless she has signed a release for us to do so. ~[facility] provided active listening, support and helped patient process through current symptoms and stressors. ~[facility] discussed establishing counseling and psychiatry. [facility] discussed EMDR therapy and ways to find provider who does this type of therapy. ~P discussed crisis resources should mood worsen, [facility] provided text hotline number for crisis. P reviewed crisis plan with patient and patient is able to contact positive supports and family when feeling down Last Documented On 1 11:46AM ; [facility] Discussed nutritional needs teach healthy choices including fruits and vegetables Last Documented On 1 2:11PM ; [facility] Patient education about a pr oper diet Last Documented On 1 2:11PM ; [facility] Discussed concerns about exe rcise : promote physical activity Last Documented On 1 2:11PM ; [facility] Work Phone: 1(735) 634-853306-19-2024 Evaluation note Includes: Assessments for all patient encounters Findings Encounter Date [D64.9 - Anemia, unspecified] anemia Med ical Established Patient with Denny Lomeli RACKING TECHNICIAN 04/10/2024 Last Documented On 4 6:51PM ; [facility] [Z68.43 - Body mass index [B TN] 50.0-59.9, adult] assessment of body mass index Medical Established Patient with Denny Lomeli RACKING TECHNICIAN 04/10/2024 Last Documented On 4 6:51PM ; [facility] Bipolar affective disorder, current episode depressed, mild Established Patient with Kinga Short LISWS 01/17/2024 Last Documented On 4 5:16PM ; [facility] Post-traumatic stress disorder Establ ished Patient with Kinga Short LISWS 01/17/2024 Last Documented On 4 5:16PM ; [facility] Undifferentiated attention d eficit disorder Established Patient with Kinga Short LISWS 01/17/2024 Last Documented On 4 5:16PM ; [facility] Visit for: screening for disorder BH Est ablished Patient with Kinga Bourgeois LISWS 01/17/2024 Last Documented On 4 5:16PM ; [facility] [Z68.43 - Body mass index [B TN] 50.0-59.9, adult] assessment of body mass index Medical Established Patient with Denny Lomeli RACKING TECHNICIAN 01/17/2024 Last Documented On 4 7:50PM ; [facility] Attention-deficit hyperactivity disorder Medical Established Patient with Denny Lomeli RACKING TECHNICIAN 01/17/2024 Last Documented On 4 7:50PM ; [facility] Diabetes Risk Test Score was three score 01/17/2024 Medical Established Patient with Denny Lomeli RACKING TECHNICIAN 01/17/2024 Last Documented On 4 7:50PM ; [facility] Visit for: screening for STD Medical Est ablished Patient with Denny Lomeli RACKING TECHNICIAN 01/17/2024 Last Documented On 4 7:50PM ; [facility] [Z68.32 - Body mass index [B TN] 32.0-32.9, adult] assessment of body mass index Medical Established Patient with Denny Lomeli RACKING TECHNICIAN 05/10/2023 Last Documented On 3 6:01PM ; [facility] Borderline personality disorder Medical Established Patient with Denny Lomeli RACKING TECHNICIAN 05/10/2023 Last Documented On 3 6:01PM ; [facility] Screening for diabetes mellitus Medical Established Patient with Denny Lomeli RACKING TECHNICIAN 05/10/2023 Last Documented On 3 6:01PM ; [facility] Assessment of body mass index Medical Es tablished Patient with Denny Lomeli RACKING TECHNICIAN 08/12/2022 Last Documented On 2 2:45PM ; [facility] Bipolar affective disorder, current episode manic [facility] with Belkis Velarde [facility] 06/16/2022 Last Documented On 2 3:22PM ; [facility] Bipolar affective disorder, current episode manic BH Established Patient with Belkis Syd [facility] 06/15/2022 Last Documented On 2 2:28PM ; [facility] Bipolar affective disorder, current episode depressed, severe with psychosis [facility] with Belkis Velarde [facility] 06/15/2022 Last Documented On 2 3:29PM ; [facility] Assessment of body mass inde x [Body mass index [BMI] 50.0-59.9, adult] Open Access - Established with Leah Monique RACKING TECHNICIAN 06/15/2022 Last Documented On 2 9:36AM ; [facility] Bipolar I disorder, most rec ent episode, manic Open Access - Established with Leah Monique RACKING TECHNICIAN 06/15/2022 Last Documented On 2 9:36AM ; [facility] Post-traumatic stress disorder Establ ished Patient with Belkisdionna Velarde [facility]CC-[facility] 06/08/2022 Last Documented On 2 3:20PM ; [facility] No cough Medical Established Patient with Denny Armani RACKING TECHNICIAN 06/08/2022 Last Documented On 2 4:04PM ; [facility] Z68.43 - Body mass index [BM I] 50.0-59.9, adult Medical Established Patient with Denny Armani RACKING TECHNICIAN 06/08/2022 Last Documented On 2 4:04PM ; [facility] Borderline personality disor kyree Pt reported hx of sx/dx Established Patient with Belkis Velarde [facility] 05/27/2022 Last Documented On 2 4:08PM ; [facility] Assessment of body mass inde x [Body mass index [BMI] 50.0-59.9, adult] Open Access - Established with Leah Monique RACKING TECHNICIAN 05/27/2022 Last Documented On 2 7:41PM ; [facility] Diabetes Risk Test Score was three score 05/27/2022 Open Access - Established with Leah Monique RACKING TECHNICIAN 05/27/2022 Last Documented On 2 7:41PM ; [facility] Bipolar I disorder, most rec ent episode, manic Established Patient with Eufemia Mcneil [facility] 07/15/2021 Last Documented On 1 1:35AM ; [facility] Borderline personality disorder Estab lished Patient with Eufemia Mcneil [facility] 07/15/2021 Last Documented On 1 1:35AM ; [facility] Post-traumatic stress disorder Establ ished Patient with Eufemia Mcneil [facility] 07/15/2021 Last Documented On 1 1:35AM ; [facility] Assessment of visit for: lloyd strange for human immunodeficiency virus Medical Established Patient with Denny Armani RACKING TECHNICIAN 07/15/2021 Last Documented On 1 2:56PM ; [facility] Nicotine dependence Medical Established Patient with Denny Armani RACKING TECHNICIAN 07/15/2021 Last Documented On 1 2:56PM ; [facility] Tachycardia Medical Established Patient with Denny Armani RACKING TECHNICIAN 07/15/2021 Last Documented On 1 2:56PM ; [facility] Z68.43 - Body mass index [BM I] 50.0-59.9, adult Medical Established Patient with Denny Armani RACKING TECHNICIAN 07/15/2021 Last Documented On 1 2:56PM ; [facility] Bipolar I disorder, most rec ent episode, manic Established Patient with Kinga Short LISWS 06/17/2021 Last Documented On 1 10:17AM ; [facility] Borderline personality disor kyree per patient reported history Established Patient with Kinga Short LISWS 06/17/2021 Last Documented On 1 10:17AM ; [facility] Nicotine dependence Established Patient with Kinga Short LISWS 06/17/2021 Last Documented On 1 10:17AM ; [facility] Post-traumatic stress disorder Establ ished Patient with Kinga Short LISWS 06/17/2021 Last Documented On 1 10:17AM ; [facility] Body mass index Medical Established Patient with Denny Armani RACKING TECHNICIAN 06/17/2021 Last Documented On 1 5:23PM ; [facility] Morbid obesity Medical Established Patient with Denny Armani RACKING TECHNICIAN 06/17/2021 Last Documented On 1 5:23PM ; [facility] Nicotine dependence uncomplicated Medica l Established Patient with Denny Armani RACKING TECHNICIAN 06/17/2021 Last Documented On 1 5:23PM ; [facility] Z68.42 - Body mass index [BM I] 45.0-49.9, adult Medical Established Patient with Denny Armani RACKING TECHNICIAN 06/17/2021 Last Documented On 1 5:23PM ; [facility] 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 disorders 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 RACKING TECHNICIAN 05/15/2021 Last Documented On 1 7:49AM ; [facility] Mood disorders, NOS per blaze ent reported history Established Patient with Kinga Short LISWS 04/23/2021 Last Documented On 1 7:15PM ; [facility] Post-traumatic stress disorder Establ ished Patient with Kinga Short LISWS 04/23/2021 Last Documented On 1 7:15PM ; [facility] Morbid obesity Medical Established Patient with Denny Armani RACKING TECHNICIAN 04/23/2021 Last Documented On 1 12:31PM ; [facility] Otitis externa Medical Established Patient with Denny Armani RACKING TECHNICIAN 04/23/2021 Last Documented On 1 12:31PM ; [facility] Z68.42 - Body mass index [BM I] 45.0-49.9, adult Medical Established Patient with Denny Armani RACKING TECHNICIAN 04/23/2021 Last Documented On 1 12:31PM ; [facility] Post-traumatic stress disorder Establ ished Patient with Kinga Short LISWS 04/01/2021 Last Documented On 1 10:05PM ; [facility] Morbid obesity Medical Established Patient with Denny Armani RACKING TECHNICIAN 04/01/2021 Last Documented On 1 4:45PM ; [facility] Z68.42 - Body mass index [BM I] 45.0-49.9, adult Medical Established Patient with Denny Armani RACKING TECHNICIAN 04/01/2021 Last Documented On 1 4:45PM ; [facility] Post-traumatic stress disorder Establ ished Patient with Kinga Short LISWS 03/17/2021 Last Documented On 1 11:59AM ; [facility] Assessment of visit for: lloyd strange for human immunodeficiency virus Medical New Patient with Denny Lomeli RACKING TECHNICIAN 03/17/2021 Last Documented On 1 4:06PM ; [facility] Diabetes Risk Test Score was one score 03/17/2021 Medical New Patient with Denny Lomeli RACKING TECHNICIAN 03/17/2021 Last Documented On 1 4:06PM ; [facility] Hypertension Medical New Patient with Denny Maryjo doherty RACKING TECHNICIAN 03/17/2021 Last Documented On 1 4:06PM ; [facility] Morbid obesity Medical New Patient with Denny C chas RACKING TECHNICIAN 03/17/2021 Last Documented On 1 4:06PM ; [facility] Post-traumatic stress disorder Medical New Patie nt with Denny Lomeli RACKING TECHNICIAN 03/17/2021 Last Documented On 1 4:06PM ; [facility] Z68.42 - Body mass index [BM I] 45.0-49.9, adult Medical New Patient with Denny Lomeli RACKING TECHNICIAN 03/17/2021 Last Documented On 1 4:06PM ; [facility] Work Phone: 1(466) 347-162706-19-2024 Evaluation note Includes: Assessments for all patient encounters Findings Encounter Date Attention-deficit hyperactiv ity disorder Established Patient with Kinga Short LISWS 04/10/2024 Last Documented On 4 10:10AM ; [facility] Bipolar I disorder, most rec ent episode, depressed - mild Established Patient with Kinga Short LISWS 04/10/2024 Last Documented On 4 10:10AM ; [facility] Post-traumatic stress disorder Establ ished Patient with Kinga Short LISWS 04/10/2024 Last Documented On 4 10:10AM ; [facility] [D64.9 - Anemia, unspecified] anemia Med ical Established Patient with Dennyartem Lomeli RACKING TECHNICIAN 04/10/2024 Last Documented On 4 6:51PM ; [facility] [Z68.43 - Body mass index [B TN] 50.0-59.9, adult] assessment of body mass index Medical Established Patient with Denny Lomeli RACKING TECHNICIAN 04/10/2024 Last Documented On 4 6:51PM ; [facility] Bipolar affective disorder, current episode depressed, mild Established Patient with Kinga Short LISWS 01/17/2024 Last Documented On 4 5:16PM ; [facility] Post-traumatic stress disorder BH Establ ished Patient with Kinga Short LISWS 01/17/2024 Last Documented On 4 5:16PM ; [facility] Undifferentiated attention d eficit disorder Established Patient with Kinag Short LISWS 01/17/2024 Last Documented On 4 5:16PM ; [facility] Visit for: screening for disorder BH Est ablished [facility]24 Last Documented On 4 5:16PM ; [facility] [Z68.43 - Body mass index [B TN] 50.0-59.9, adult] assessment of body mass index Medical Established Patient with Denny Lomeli RACKING TECHNICIAN 01/17/2024 Last Documented On 4 7:50PM ; [facility] Attention-deficit hyperactivity disorder Medical Established Patient with Denny Lomeli RACKING TECHNICIAN 01/17/2024 Last Documented On 4 7:50PM ; [facility] Diabetes Risk Test Score was three score 01/17/2024 Medical Established Patient with Denny Lomeli RACKING TECHNICIAN 01/17/2024 Last Documented On 4 7:50PM ; [facility] Visit for: screening for STD Medical Est ablished Patient with Denny Lomeli RACKING TECHNICIAN 01/17/2024 Last Documented On 4 7:50PM ; [facility] [Z68.32 - Body mass index [B TN] 32.0-32.9, adult] assessment of body mass index Medical Established Patient with Denny Lomeli RACKING TECHNICIAN 05/10/2023 Last Documented On 3 6:01PM ; [facility] Borderline personality disorder Medical Established Patient with Denny Armani RACKING TECHNICIAN 05/10/2023 Last Documented On 3 6:01PM ; [facility] Screening for diabetes mellitus Medical Established Patient with Denny Armani RACKING TECHNICIAN 05/10/2023 Last Documented On 3 6:01PM ; [facility] Assessment of body mass index Medical Es tablished Patient with Denny Armani RACKING TECHNICIAN 08/12/2022 Last Documented On 2 2:45PM ; [facility] Bipolar affective disorder, current episode manic [facility]behavior[facility] with Belkis Velarde [facility] 06/16/2022 Last Documented On 2 3:22PM ; [facility] Bipolar affective disorder, current episode manic Established Patient with Belkis Velarde [facility] 06/15/2022 Last Documented On 2 2:28PM ; [facility] Bipolar affective disorder, current episode depressed, severe with psychosis [facility] with Belkis Velarde [facility] 06/15/2022 Last Documented On 2 3:29PM ; [facility] Assessment of body mass inde x [Body mass index [BMI] 50.0-59.9, adult] Open Access - Established with Leah Monique RACKING TECHNICIAN 06/15/2022 Last Documented On 2 9:36AM ; [facility] Bipolar I disorder, most rec ent episode, manic Open Access - Established with Leah Monique RACKING TECHNICIAN 06/15/2022 Last Documented On 2 9:36AM ; [facility] Post-traumatic stress disorder BH Establ ished Patient with Belkis Velarde [facility] 06/08/2022 Last Documented On 2 3:20PM ; [facility] No cough Medical Established Patient with Denny Armani RACKING TECHNICIAN 06/08/2022 Last Documented On 2 4:04PM ; [facility] Z68.43 - Body mass index [BM I] 50.0-59.9, adult Medical Established Patient with Denny Armani RACKING TECHNICIAN 06/08/2022 Last Documented On 2 4:04PM ; [facility] Borderline personality disor kyree Pt reported hx of sx/dx Established [facility] 05/27/2022 Last Documented On 2 4:08PM ; [facility] Assessment of body mass inde x [Body mass index [BMI] 50.0-59.9, adult] Open Access - Established with Leah Monique RACKING TECHNICIAN 05/27/2022 Last Documented On 2 7:41PM ; [facility] Diabetes Risk Test Score was three score 05/27/2022 Open Access - Established with Leah Monique RACKING TECHNICIAN 05/27/2022 Last Documented On 2 7:41PM ; [facility] Bipolar I disorder, most rec ent episode, manic Established Patient with Eufemia Mcneil [facility] 07/15/2021 Last Documented On 1 1:35AM ; [facility] Borderline personality disorder Estab lished Patient with Eufemia Mcneil [facility] 07/15/2021 Last Documented On 1 1:35AM ; [facility] Post-traumatic stress disorder Establ ished Patient with Eufemia Mcneil [facility] 07/15/2021 Last Documented On 1 1:35AM ; [facility] Assessment of visit for: lloyd mcgillning for human immunodeficiency virus Medical Established Patient with Denny Armani RACKING TECHNICIAN 07/15/2021 Last Documented On 1 2:56PM ; [facility] Nicotine dependence Medical Established Patient with Denny Armani [facility] 07/15/2021 Last Documented On 1 2:56PM ; [facility] Tachycardia Medical Established Patient with Denny Armani RACKING TECHNICIAN 07/15/2021 Last Documented On 1 2:56PM ; [facility] Z68.43 - Body mass index [BM I] 50.0-59.9, adult Medical Established Patient with Denny Armani RACKING TECHNICIAN 07/15/2021 Last Documented On 1 2:56PM ; [facility] Bipolar I disorder, most rec ent episode, manic Established Patient with Kinga Short LISWS 06/17/2021 Last Documented On 1 10:17AM ; [facility] Borderline personality disor kyree per patient reported history Established Patient with Kinga Short LISWS 06/17/2021 Last Documented On 1 10:17AM ; [facility] Nicotine dependence BH Established Patient with Kinga Short LISWS 06/17/2021 Last Documented On 1 10:17AM ; [facility] Post-traumatic stress disorder Establ ished Patient with Kinga Short LISWS 06/17/2021 Last Documented On 1 10:17AM ; [facility] Body mass index Medical Established Patient with Denny Armani RACKING TECHNICIAN 06/17/2021 Last Documented On 1 5:23PM ; [facility] Morbid obesity Medical Established Patient with Denny Armani RACKING TECHNICIAN 06/17/2021 Last Documented On 1 5:23PM ; [facility] Nicotine dependence uncomplicated Medica l Established Patient with Denny Armani RACKING TECHNICIAN 06/17/2021 Last Documented On 1 5:23PM ; [facility] Z68.42 - Body mass index [BM I] 45.0-49.9, adult Medical Established Patient with Denny Armani RACKING TECHNICIAN 06/17/2021 Last Documented On 1 5:23PM ; [facility] 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 disorders 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 RACKING TECHNICIAN 05/15/2021 Last Documented On 1 7:49AM ; [facility] Mood disorders, NOS per blaze ent reported history Established Patient with Kinga Short LISWS 04/23/2021 Last Documented On 1 7:15PM ; [facility] Post-traumatic stress disorder Establ ished Patient with Kinga Short LISWS 04/23/2021 Last Documented On 1 7:15PM ; [facility] Morbid obesity Medical Established Patient with Denny Armani RACKING TECHNICIAN 04/23/2021 Last Documented On 1 12:31PM ; [facility] Otitis externa Medical Established Patient with Denny Armani RACKING TECHNICIAN 04/23/2021 Last Documented On 1 12:31PM ; [facility] Z68.42 - Body mass index [BM I] 45.0-49.9, adult Medical Established Patient with Denny Armani RACKING TECHNICIAN 04/23/2021 Last Documented On 1 12:31PM ; [facility] Post-traumatic stress disorder Establ ished Patient with Kinga Short LISWS 04/01/2021 Last Documented On 1 10:05PM ; [facility] Morbid obesity Medical Established Patient with Denny Armani RACKING TECHNICIAN 04/01/2021 Last Documented On 1 4:45PM ; [facility] Z68.42 - Body mass index [BM I] 45.0-49.9, adult Medical Established Patient with Denny Armani RACKING TECHNICIAN 04/01/2021 Last Documented On 1 4:45PM ; [facility] Post-traumatic stress disorder Establ ished Patient with Kinga Short LISWS 03/17/2021 Last Documented On 1 11:59AM ; [facility] Assessment of visit for: lloyd mcgillning for human immunodeficiency virus Medical New Patient with Denny Armani RACKING TECHNICIAN 03/17/2021 Last Documented On 1 4:06PM ; [facility] Diabetes Risk Test Score was one score 03/17/2021 Medical New Patient with Denny Armani RACKING TECHNICIAN 03/17/2021 Last Documented On 1 4:06PM ; [facility] Hypertension Medical New Patient with Denny C chas RACKING TECHNICIAN 03/17/2021 Last Documented On 1 4:06PM ; [facility] Morbid obesity Medical New Patient with Denny C chas RACKING TECHNICIAN 03/17/2021 Last Documented On 1 4:06PM ; [facility] Post-traumatic stress disorder Medical New Patie nt with Denny Armani RACKING TECHNICIAN 03/17/2021 Last Documented On 1 4:06PM ; [facility] Z68.42 - Body mass index [BM I] 45.0-49.9, adult Medical New Patient with Denny Armani RACKING TECHNICIAN 03/17/2021 Last Documented On 1 4:06PM ; [facility] Work Phone: 1(840) 734-208806-19-2024 History general Narrative - Reported Includes: Medical History in patient's chart Description Last Updated POTS 04/10/2024 Last Documented On 4 6:51PM ; [facility] 0 previous live (s) 01/17/2024 Last Documented On 4 7:50PM ; [facility] Previously 1 time(s) 01/17/2024 Last Documented On 4 7:50PM ; [facility] Recent immunization for flu 01/17/2024 Last Documented On 4 7:50PM ; [facility] Has sex without a condom 06/08/2022 Last Documented On 2 4:04PM ; [facility] Not planning to have a baby in the next 12 months 06/08/2022 Last Documented On 2 4:04PM ; [facility] Partners sexually transmitted infection status known 06/08/2022 Last Documented On 2 4:04PM ; [facility] No previous hospitalizations 06/08/2022 Last Documented On 2 4:04PM ; [facility] Chronic illness 05/17/2021 Last Documented On 1 7:49AM ; [facility] Exposure to COVID-19 04/23/2021 Last Documented On 1 12:31PM ; [facility] History of gynecologic disorder 03/17/20 21 Last Documented On 1 4:06PM ; [facility] History of Polycystic Ovarian Syndrome ( PCOS) 03/17/2021 Last Documented On 1 4:06PM ; [facility] History of anxiety disorder NOS 03/17/20 21 Last Documented On 1 4:06PM ; [facility] History of migraine headache 03/17/2021 Last Documented On 1 4:06PM ; [facility] History of psychiatric disorders biopola r disorder 03/17/2021 Last Documented On 1 4:06PM ; [facility] Work Phone: 1(271) 561-211206-19-2024 History general Narrative - Reported Includes: Medical History in patient's chart Description Last Updated POTS 04/10/2024 Last Documented On 4 6:51PM ; [facility] 0 previous live (s) 01/17/2024 Last Documented On 4 7:50PM ; [facility] Previously 1 time(s) 01/17/2024 Last Documented On 4 7:50PM ; [facility] Recent immunization for flu 01/17/2024 Last Documented On 4 7:50PM ; [facility] Has sex without a condom 06/08/2022 Last Documented On 2 4:04PM ; [facility] Not planning to have a baby in the next 12 months 06/08/2022 Last Documented On 2 4:04PM ; [facility] sexually transmitted infection status known 06/08/2022 Last Documented On 2 4:04PM ; [facility] No previous hospitalizations 06/08/2022 Last Documented On 2 4:04PM ; [facility] Chronic illness 05/17/2021 Last Documented On 1 7:49AM ; [facility] Exposure to COVID-19 04/23/2021 Last Documented On 1 12:31PM ; [facility] History of gynecologic disorder 03/17/20 21 Last Documented On 1 4:06PM ; [facility] History of Polycystic Ovarian Syndrome ( PCOS) 03/17/2021 Last Documented On 1 4:06PM ; [facility] History of anxiety disorder NOS 03/17/20 21 Last Documented On 1 4:06PM ; [facility] History of migraine headache 03/17/2021 Last Documented On 1 4:06PM ; [facility] History of psychiatric disorders biopola r disorder 03/17/2021 Last Documented On 1 4:06PM ; [facility] Work Phone: 1(661) 518-829406-19-2024 History general Narrative - Reported Includes: Medical History in patient's chart Description Last Updated POTS 04/10/2024 Last Documented On 4 6:51PM ; [facility] 0 previous live (s) 01/17/2024 Last Documented On 4 7:50PM ; [facility] Previously 1 time(s) 01/17/2024 Last Documented On 4 7:50PM ; [facility] Recent immunization for flu 01/17/2024 Last Documented On 4 7:50PM ; [facility] Has sex without a condom 06/08/2022 Last Documented On 2 4:04PM ; [facility] Not planning to have a baby in the next 12 months 06/08/2022 Last Documented On 2 4:04PM ; [facility] sexually transmitted infection status known 06/08/2022 Last Documented On 2 4:04PM ; [facility] No previous hospitalizations 06/08/2022 Last Documented On 2 4:04PM ; [facility] Chronic illness 05/17/2021 Last Documented On 1 7:49AM ; [facility] Exposure to COVID-19 04/23/2021 Last Documented On 1 12:31PM ; [facility] History of gynecologic disorder 03/17/20 21 Last Documented On 1 4:06PM ; [facility] History of Polycystic Ovarian Syndrome ( PCOS) 03/17/2021 Last Documented On 1 4:06PM ; [facility] History of anxiety disorder NOS 03/17/20 21 Last Documented On 1 4:06PM ; [facility] History of migraine headache 03/17/2021 Last Documented On 1 4:06PM ; [facility] History of psychiatric disorders biopola r disorder 03/17/2021 Last Documented On 1 4:06PM ; [facility] Work Phone: 1(302) 902-728006-19-2024 History general Narrative - Reported Includes: Medical History in patient's chart Description Last Updated POTS 04/10/2024 Last Documented On 4 6:51PM ; [facility] 0 previous live (s) 01/17/2024 Last Documented On 4 7:50PM ; [facility] Previously 1 time(s) 01/17/2024 Last Documented On 4 7:50PM ; [facility] Recent immunization for flu 01/17/2024 Last Documented On 4 7:50PM ; [facility] Has sex without a condom 06/08/2022 Last Documented On 2 4:04PM ; [facility] Not planning to have a baby in the next 12 months 06/08/2022 Last Documented On 2 4:04PM ; [facility] sexually transmitted infection status known 06/08/2022 Last Documented On 2 4:04PM ; [facility] No previous hospitalizations 06/08/2022 Last Documented On 2 4:04PM ; [facility] Chronic illness 05/17/2021 Last Documented On 1 7:49AM ; [facility] Exposure to COVID-19 04/23/2021 Last Documented On 1 12:31PM ; [facility] History of gynecologic disorder 03/17/20 21 Last Documented On 1 4:06PM ; [facility] History of Polycystic Ovarian Syndrome ( PCOS) 03/17/2021 Last Documented On 1 4:06PM ; [facility] History of anxiety disorder NOS 03/17/20 21 Last Documented On 1 4:06PM ; [facility] History of migraine headache 03/17/2021 Last Documented On 1 4:06PM ; [facility] History of psychiatric disorders biopola r disorder 03/17/2021 Last Documented On 1 4:06PM ; [facility] Work Phone: 1(919) 364-518906-19-2024 Progress note* Progress note Date Encounter Last Documented by 04/10/2024 Medical Established Patient Last documented on 04/10/2024; 6:51 PM, Denny Lomeli CNP; [facility] Active Problems & Conditions - F90.9 - Attention-deficit Hyperactivity Disorder - F31.31 - Bipolar I Disorder, Most Recent Episode, Depressed Mild - F43.10 - Post-traumatic Stress Disorder Chief Complaint The Chief Complaint is: Patient is not seeing [facility] any longer and wants to discuss metformin. Patient is still taking med, but it is still getting diarrhea and nausea. Patient is wanting to get into [facility]. She has tried to contact Dr. Donato in [place], but has not heard back. Patient provided with phone number for [facility]. Patient here for 2 month med check. Patient is taking meds as prescribed. Patient is still feeling anxiousness at times. Patient refused HPV and PCV. Referred Here Not referred by urgent care clinic and not the emergency room. No prior encounters. - Data to be reviewed: no clinical lab tests History of Present Illness Cordelia Guaman is a 24 year old female. - Allergy list reviewed - Reviewed Medications - Medication list reviewed - Date of last menstruation 04/07/2024 - test - would not like a test Presents with sig other Day for med f/u . wants to get a new vascular tech . reports no longer doing counseling r/t she said I dont need it labs reviewed from last month ER visit and I explained her cbc shows anemia , likely r/t heavy periods . I would like them to get further labs as pt does admit to fatigue / sleeping 14 hours per day Current Medication - ARIPiprazole 5 MG Oral Tablet take 1 tablet by mouth once daily, 30 days, 5 refills - busPIRone HCl 5 MG Oral Tablet take 1 tablet by mouth twice daily, 30 days, 5 refills - Intuniv 1 MG Oral Tablet Extended Release 24 Hour take 1 tablet by mouth once daily at bedtime, 30 days, 5 refills - lamoTRIgine 100 MG Oral Tablet take 1 tablet by mouth once daily, 30 days, 5 refills - MiraLax 17 GM/SCOOP Oral Powder mix 1 scoop with 8 ounces once daily, 30 days, 2 refills - Narcan 4 MG/0.1ML Nasal Liquid spray in nostril for symptoms of overdose , may repeat in 2 minutes if symptoms persist, 1 days, 0 refills - Prazosin HCl 1 MG Oral Capsule take 1 capsule by mouth twice daily, 30 days, 5 refills - Sertraline HCl 50 MG Oral Tablet take 1 tablet by mouth once daily, 30 days, 5 refills - traZODone HCl 100 MG Oral Tablet take 1 tablet by mouth twice daily, 30 days, 5 refills Past Medical/Surgical History Reported: Has sex without a condom. Medical: No previous hospitalizations. Chronic illness and Sexually transmitted infection Partners sexually transmitted infection status known. Immunization History: Recent immunization for flu. Exposure: Exposure to COVID-19. : Previously 1 time(s) and para having 0 live (s). Not planning a in the next year. Diagnoses: Polycystic Ovarian Syndrome (PCOS). Migraine headache. Psychiatric disorders biopolar disorder Anxiety disorder NOS POTS. Procedural: - Insertion of ear pressure equalization tubes in both ears Surgical: - Tonsillectomy - Tonsillectomy with adenoidectomy Social History Environmental Exposure: Secondhand cigarette smoke exposure. Behavioral: Not a current tobacco user. Tobacco use: Using electronic cigarettes/vaping. Alcohol: Not using alcohol. Drug Use: Not using drugs denied by patient. Sexual: Sexually active age of sexual partner is years old 21, sexual orientation Lesbian or Shin, gender identity Other, and control is being practiced Not Using - In Same Sex Relationship. Allergies - Abilify Reaction: groggy - Augmentin Reaction: Shock - Metformin Reaction: Nausea, Vomiting - NO KNOWN ENVIRONMENTAL ALLERGIES - NO KNOWN FOOD ALLERGIES - Sertraline Reaction: slow/groggy - Trazodone Hydrochloride Reaction: Panic attack Family History Paternal: Systemic hypertension Oncologic disorder Maternal: Systemic hypertension Epilepsy and recurrent seizures Psychiatric disorders Oncologic disorder Fraternal: Psychiatric disorders Review Of Systems Head: No head symptoms. Neck: No neck symptoms. Eyes: No eye symptoms. Otolaryngeal: No ear symptoms, no nasal symptoms, no nose and sinus finding, no throat symptoms, no oral cavity symptoms, and no jaw symptoms. Breasts: No breast symptoms. Cardiovascular: No cardiovascular symptoms and no chest pain or discomfort. Pulmonary: No pulmonary symptoms. Gastrointestinal: No gastrointestinal symptoms. Genitourinary: No genitourinary symptoms. Obstetrics and gynecology: heavy periods. Musculoskeletal: No musculoskeletal symptoms. Neurological: No neurological symptoms. Psychological: No psychological symptoms. Skin: No skin symptoms. Cardiovascular: Edema not present. Physical Findings - Vitals taken 04/10/2024 04:39 pm BP-Sitting L161/94 mmHg BP Cuff SizeLarge Pulse Rate-Vkdieuj66 bpm Upwqfs62 in Yuevtq423 lbs Body Mass Index54.6 kg/m2 Body Surface Area2.4 m2 Oxygen Aawndiuleg80 % - Vitals taken 04/10/2024 04:50 pm BP-Sitting L137/89 mmHg BP Cuff SizeLarge Pulse Rate-Buyakhd88 bpm Vital Signs: - Systolic blood pressure 130 - 139 mmHg. - Diastolic blood pressure 80-89 mmHg. General Appearance: - Awake. - Alert. - Well developed. - Well nourished. - In no acute distress. Lungs: - Respiration rhythm and depth was normal. - Clear to auscultation. Cardiovascular: Heart Rate And Rhythm: - Normal. Heart Sounds: - Normal. Murmurs: - No murmurs were heard. Abdomen: Visual Inspection: - Abdomen was normal on visual inspection. Musculoskeletal System: General/bilateral: - Normal movement of all extremities. Skin: - General appearance was normal. Tests Laboratory-based Chemistry: Other Laboratory Tests: Screening for sexually transmitted infections was not performed. Assessment - Z68.43 - Body mass index [BMI] 50.0-59.9, adult - D64.9 - Anemia, unspecified Counseling/Education - Does not want to stop using current contraception - Wishing to stop using electronic cigarettes/vaping - Discussed nutritional needs teach healthy choices including fruits and vegetables - Patient education about a proper diet - Not requesting contraception - Discussed concerns about exercise: promote physical activity Plan StartCited- Anemia, unspecified Lab: Iron and TIBC Lab: Ferritin Lab: CBC With Differential/Platelet Lab: TSH+T4F+T3Free Lab: Thyroid Antibodies EndCited StartCited- Other Follow-up Appointment 2 month med check EndCited # given to located within [facility] , call prashant triana appt german . labs german to further check on anemia. Care Team - Denny Lomeli CNP Health Reminders - Assess BMI satisfied 04/10/2024. - Assess Tobacco Use satisfied 04/10/2024. - Follow Up Plan BMI Management satisfied 04/10/2024. User Defined 1 Not planning a in the next year. [facility]06-19-2024 Progress note* Progress note Date Encounter Last Documented by 04/10/2024 Established Patient Last docu mented on 04/11/2024; 10:10 AM, Kinga RUDOLPH; [facility] Active Problems & Conditions - F90.9 - Attention-deficit Hyperactivity Disorder - F31.31 - Bipolar I Disorder, Most Recent Episode, Depressed Mild - F43.10 - Post-traumatic Stress Disorder Chief Complaint The Chief Complaint is: [facility] met with patient to follow-up regarding mood and PHQ score of 2 and GLORIA score of 6. Patient reports noticing increased anxiety, overthinking and catastrophizing recently. Patient reports in the past, story have been difficult and noticed a decline in mood around this time of year. Patient reports having several positive things ongoing in life at this time. Patient reports stressors related to physical health. Patient reports no thoughts of harm toward self or others. History of Present Illness Cordelia Guaman is a 24 year old female. - Normal appetite - Irritability - Anxiety with persistent worry - With anticipation of misfortune to self or others - Sleep disturbances as patient reports sleeping too much (around 14-16 hours) - Energy level is fair - Feeling guilty - Racing thoughts - No depression - No loss of interest in activities - Not easily distracted - No social isolation - No impulsive behavior Current Medication - ARIPiprazole 5 MG Oral Tablet take 1 tablet by mouth once daily, 30 days, 5 refills - busPIRone HCl 5 MG Oral Tablet take 1 tablet by mouth twice daily, 30 days, 5 refills - Intuniv 1 MG Oral Tablet Extended Release 24 Hour take 1 tablet by mouth once daily at bedtime, 30 days, 5 refills - lamoTRIgine 100 MG Oral Tablet take 1 tablet by mouth once daily, 30 days, 5 refills - MiraLax 17 GM/SCOOP Oral Powder mix 1 scoop with 8 ounces once daily, 30 days, 2 refills - Narcan 4 MG/0.1ML Nasal Liquid spray in nostril for symptoms of overdose , may repeat in 2 minutes if symptoms persist, 1 days, 0 refills - Prazosin HCl 1 MG Oral Capsule take 1 capsule by mouth twice daily, 30 days, 5 refills - Sertraline HCl 50 MG Oral Tablet take 1 tablet by mouth once daily, 30 days, 5 refills - traZODone HCl 100 MG Oral Tablet take 1 tablet by mouth twice daily, 30 days, 5 refills Social History Medical: Chronic illness with POTS and PCOS. Environmental Exposure: No secondhand cigarette smoke exposure. Personal: Family problems and recent emotional stress. Behavioral: Not a current tobacco user. Tobacco use: Using electronic cigarettes/vaping. Alcohol: Not using alcohol. Drug Use: Not using drugs. Physical Findings General Appearance: - Normal Appearance. Neurological: - Estimated intelligence was normal. - Oriented to time, place, and person. - No hallucinations. - Judgement was not impaired. Speech: - Is Normal. Psychiatric: - Mood is Euthymic. - Attitude Open. Demonstrated Behavior: - Motor Activity Normal Activity. - Eye Contact Appropriate. Affect: - Congruent with the mood. Thought Content: - Insight was intact. - No delusions. - No suicidal ideation. - No Passive thoughts of . - No suicidal plans. - No suicidal intent. - No homicidal ideations. - No homicidal plans. - No homicidal intent. Past Medical: - No repetitive self injurious behavior. Assessment - F90.9 - Attention-deficit hyperactivity disorder, unspecified type - F31.31 - Bipolar disorder, current episode depressed, mild - F43.10 - Post-traumatic stress disorder, unspecified Therapy - Developmental/Behavioral Screening & Testing - PHQ9 and Developmental/Behavioral Screening & Testing - GAD7. - Brief solution-focused therapy. - Adherent with medications. - Visit 30 Minutes. - Plan - do not modify medication at this time. Patient would like to see if addressing physical health concerns helps before changing medications. Collaborated with patient and provider: Counseling/Education P offered active and supportive listening and processed current stressors. P discussed coping skills and supports that can be implemented to manage increased anxiety and stressors. BHP discussed potential of resuming counseling, even if for monthly visits to process ongoing stressors. BHP encouraged patient to follow-up on referrals as discussed with PCP. Plan BHP to attempt to follow-up with patient via phone in 2 weeks and at next in person visit as scheduled. Care Team - Denny Lomeli CNP Health Reminders - Assess Tobacco Use satisfied 04/10/2024. - GLORIA-2 satisfied 04/10/2024. - PHQ9 / PHQA satisfied 04/10/2024. User Defined 1 GLORIA-2 score was three 04/10/2024, GLORIA-7 score was six [GLORIA-7] Feeling nervous, anxious or on edge? + 2 pt : More than half the days, [GLORIA-7] Feeling nervous, anxious or on edge? + 2 pt : More than half the days, [GLORIA-7] Not being able to stop or control worrying? + 1 pt : Several days, [GLORIA-7] Not being able to stop or control worrying? + 1 pt : Several days, [GLORIA-7] Worrying too much about different things? + 1 pt : Several days, [GLORIA-7] Trouble relaxing? + 0 pt : Not at all, [GLORIA-7] Being so restless that it's hard to sit still? + 0 pt : Not at all, [GLORIA-7] Becoming easily annoyed or irritable? + 1 pt : Several days, [GLORIA-7] Feeling afraid as if something awful might happen? + 1 pt : Several days, Patient Health Questionnaire 9-Item total score was two 04/10/2024 If you checked off problems, how difficult is it for you to do your work? + : Somewhat difficult, [PHQ-9-1] Little interest or pleasure in doing things? + 0 pt : Not at all, [PHQ-9-2] Feeling down, depressed, or hopeless? + 0 pt : Not at all, [PHQ-9-3] Trouble falling or staying asleep or sleeping too much? + 1 pt : Several days, [PHQ-9-4] Feeling tired or having little energy? + 0 pt : Not at all, [PHQ-9-5] Poor appetite or overeating? + 0 pt : Not at all, [PHQ-9-6] Feeling bad about yourself-or that you are a failure + 1 pt : Several days, [PHQ-9-7] Trouble concentrating on things such as reading the newspaper + 0 pt : Not at all, [PHQ-9-8] Moving or speaking so slowly that other people have noticed. + 0 pt : Not at all, [PHQ-9-9] Thoughts that you would be better off or hurting yourself? + 0 pt : Not at all, and GLORIA If you checked off problems, how difficult is it for you to do your work, take care of things, or get along? Somewhat difficult. [facility]04-02-2024 Progress note* Progress note Date Encounter Last Documented by 01/23/2024 Chart Update Last documented on 01/30/2024; 9:32 AM, Denny Lomeli CNP; [facility] Active Problems & Conditions - F90.9 - Attention-deficit Hyperactivity Disorder - F31.31 - Bipolar I Disorder, Most Recent Episode, Depressed Mild - F43.10 - Post-traumatic Stress Disorder Current Medication - ARIPiprazole 5 MG Oral Tablet take 1 tablet by mouth once daily, 30 days, 5 refills - busPIRone HCl 5 MG Oral Tablet take 1 tablet by mouth twice daily, 30 days, 5 refills - Intuniv 1 MG Oral Tablet Extended Release 24 Hour take 1 tablet by mouth once daily at bedtime, 30 days, 5 refills - lamoTRIgine 100 MG Oral Tablet take 1 tablet by mouth once daily, 30 days, 5 refills - metFORMIN HCl 500 MG Oral Tablet AM and PM per DESIGN INTERN/NOMS in [place], 30 days, 0 refills - MiraLax 17 GM/SCOOP Oral Powder mix 1 scoop with 8 ounces once daily, 30 days, 2 refills - Narcan 4 MG/0.1ML Nasal Liquid spray in nostril for symptoms of overdose , may repeat in 2 minutes if symptoms persist, 1 days, 0 refills - Prazosin HCl 1 MG Oral Capsule take 1 capsule by mouth twice daily, 30 days, 5 refills - Sertraline HCl 50 MG Oral Tablet take 1 tablet by mouth once daily, 30 days, 5 refills - traZODone HCl 100 MG Oral Tablet take 1 tablet by mouth twice daily, 30 days, 5 refills Past Medical/Surgical History Reported: Has sex without a condom. Medical: No previous hospitalizations. Chronic illness and Sexually transmitted infection Partners sexually transmitted infection status known. Immunization History: Recent immunization for flu. Exposure: Exposure to COVID-19. : Previously 1 time(s) and para having 0 live (s). Not planning a in the next year. Diagnoses: Polycystic Ovarian Syndrome (PCOS). Migraine headache. Psychiatric disorders biopolar disorder Anxiety disorder NOS Procedural: - Insertion of ear pressure equalization tubes in both ears Surgical: - Tonsillectomy - Tonsillectomy with adenoidectomy Allergies - Abilify Reaction: groggy - Augmentin Reaction: Shock - metformin Reaction: Nausea, Vomiting - trazodone Reaction: Panic attack - Zoloft Reaction: slow/ groggy Family History Paternal: Systemic hypertension Oncologic disorder Maternal: Systemic hypertension Epilepsy and recurrent seizures Psychiatric disorders Oncologic disorder Fraternal: Psychiatric disorders Tests Physician's Services: - Outside Chlamydia Test was Negative 01/17/2024 Care Team - Denny Lomeli CNP [facility]03-27-2024 Evaluation note Includes: Assessments for all patient encounters Findings Encounter Date Bipolar affective disorder, current episode depressed, mild Established Patient with Kinga Short LISWS 01/17/2024 Last Documented On 4 7:46PM ; [facility] Post-traumatic stress disorder Establ ished Patient with Kinga Short LISWS 01/17/2024 Last Documented On 4 7:46PM ; [facility] Undifferentiated attention d eficit disorder Established Patient with Kinga Short LISWS 01/17/2024 Last Documented On 4 7:46PM ; [facility] Visit for: screening for disorder Est ablished Patient with Kinga Short LISWS 01/17/2024 Last Documented On 4 7:46PM ; [facility] [Z68.43 - Body mass index [B TN] 50.0-59.9, adult] assessment of body mass index Medical Established Patient with Denny Lomeli CNP 01/17/2024 Last Documented On 4 7:50PM ; [facility] Attention-deficit hyperactivity disorder Medical Established Patient with Denny Lomeli RACKING TECHNICIAN 01/17/2024 Last Documented On 4 7:50PM ; [facility] Diabetes Risk Test Score was three score 01/17/2024 Medical Established Patient with Denny Lomeli RACKING TECHNICIAN 01/17/2024 Last Documented On 4 7:50PM ; [facility] Visit for: screening for STD Medical Est ablished Patient with Denny Lomeli RACKING TECHNICIAN 01/17/2024 Last Documented On 4 7:50PM ; [facility] [Z68.32 - Body mass index [B TN] 32.0-32.9, adult] assessment of body mass index Medical Established Patient with Denny Lomeli RACKING TECHNICIAN 05/10/2023 Last Documented On 3 6:01PM ; [facility] Borderline personality disorder Medical Established Patient with Denny Lomeli RACKING TECHNICIAN 05/10/2023 Last Documented On 3 6:01PM ; [facility] Screening for diabetes mellitus Medical Established Patient with Denny Lomeli RACKING TECHNICIAN 05/10/2023 Last Documented On 3 6:01PM ; [facility] Assessment of body mass index Medical Es tablished Patient with Denny Lomeli RACKING TECHNICIAN 08/12/2022 Last Documented On 2 2:45PM ; [facility] Bipolar affective disorder, current episode manic [facility]22 Last Documented On 2 3:22PM ; [facility] Bipolar affective disorder, current episode manic Established Patient with Belkisdionna CoffeyVelarde [facility] 06/15/2022 Last Documented On 2 2:28PM ; [facility] Bipolar affective disorder, current episode depressed, severe with psychosis Telebehavioral Health with Belkisdionna Velarde [facility] 06/15/2022 Last Documented On 2 3:29PM ; [facility] Assessment of body mass inde x [Body mass index [BMI] 50.0-59.9, adult] Open Access - Established with Leah Amaya [facility] 06/15/2022 Last Documented On 2 9:36AM ; [facility] Bipolar I disorder, most rec ent episode, manic Open Access - Established with Leah Monique RACKING TECHNICIAN 06/15/2022 Last Documented On 2 9:36AM ; [facility] Post-traumatic stress disorder Establ ished Patient with Belkisdionna CoffeyVelarde [facility] 06/08/2022 Last Documented On 2 3:20PM ; [facility] No cough Medical Established Patient with Denny Armani RACKING TECHNICIAN 06/08/2022 Last Documented On 2 4:04PM ; [facility] Z68.43 - Body mass index [BM I] 50.0-59.9, adult Medical Established Patient with Denny Armani RACKING TECHNICIAN 06/08/2022 Last Documented On 2 4:04PM ; [facility] Borderline personality disor kyree Pt reported hx of sx/dx Established Patient with Belkisdionna CoffeyVelarde [facility] 05/27/2022 Last Documented On 2 4:08PM ; [facility] Assessment of body mass inde x [Body mass index [BMI] 50.0-59.9, adult] Open Access - Established with Leah Amaya CNP 05/27/2022 Last Documented On 2 7:41PM ; [facility] Diabetes Risk Test Score was three score 05/27/2022 Open Access - Established with Leah Amaya CNP 05/27/2022 Last Documented On 2 7:41PM ; [facility] Bipolar I disorder, most rec ent episode, manic BH Established Patient with Eufemia Mcneil [facility] 07/15/2021 Last Documented On 1 1:35AM ; [facility] Borderline personality disorder Estab lished Patient with Eufemia Mcneil [facility] 07/15/2021 Last Documented On 1 1:35AM ; [facility] Post-traumatic stress disorder Establ ished Patient with Eufemia Mcneil [facility] 07/15/2021 Last Documented On 1 1:35AM ; [facility] Assessment of visit for: lloyd mcgillning for human immunodeficiency virus Medical Established Patient with Denny Armani RACKING TECHNICIAN 07/15/2021 Last Documented On 1 2:56PM ; [facility] Nicotine dependence Medical Established Patient with Denny Armani RACKING TECHNICIAN 07/15/2021 Last Documented On 1 2:56PM ; [facility] Tachycardia Medical Established Patient with Denny Armani RACKING TECHNICIAN 07/15/2021 Last Documented On 1 2:56PM ; [facility] Z68.43 - Body mass index [BM I] 50.0-59.9, adult Medical Established Patient with Denny Armani RACKING TECHNICIAN 07/15/2021 Last Documented On 1 2:56PM ; [facility] Bipolar I disorder, most rec ent episode, manic Established Patient with Kinga Short LISWS 06/17/2021 Last Documented On 1 10:17AM ; [facility] Borderline personality disor kyree per patient reported history Established Patient with Kinga Short LISWS 06/17/2021 Last Documented On 1 10:17AM ; [facility] Nicotine dependence Established Patient with Kinga Short LISWS 06/17/2021 Last Documented On 1 10:17AM ; [facility] Post-traumatic stress disorder Establ ished Patient with Kinga Short LISWS 06/17/2021 Last Documented On 1 10:17AM ; [facility] Body mass index Medical Established Patient with Denny Armani RACKING TECHNICIAN 06/17/2021 Last Documented On 1 5:23PM ; [facility] Morbid obesity Medical Established Patient with Denny Armani RACKING TECHNICIAN 06/17/2021 Last Documented On 1 5:23PM ; [facility] Nicotine dependence uncomplicated Medica l Established Patient with Denny Armani RACKING TECHNICIAN 06/17/2021 Last Documented On 1 5:23PM ; [facility] Z68.42 - Body mass index [BM I] 45.0-49.9, adult Medical Established Patient with Denny Armani RACKING TECHNICIAN 06/17/2021 Last Documented On 1 5:23PM ; [facility] 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 disorders 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 RACKING TECHNICIAN 05/15/2021 Last Documented On 1 7:49AM ; [facility] Mood disorders, NOS per blaze ent reported history Established Patient with Kinga Short LISWS 04/23/2021 Last Documented On 1 7:15PM ; [facility] Post-traumatic stress disorder Establ ished Patient with Kinga Short LISWS 04/23/2021 Last Documented On 1 7:15PM ; [facility] Morbid obesity Medical Established Patient with Denny Armani RACKING TECHNICIAN 04/23/2021 Last Documented On 1 12:31PM ; [facility] Otitis externa Medical Established Patient with Denny Armani RACKING TECHNICIAN 04/23/2021 Last Documented On 1 12:31PM ; [facility] Z68.42 - Body mass index [BM I] 45.0-49.9, adult Medical Established Patient with Denny Armani RACKING TECHNICIAN 04/23/2021 Last Documented On 1 12:31PM ; [facility] Post-traumatic stress disorder Establ ished Patient with Kinga Short LISWS 04/01/2021 Last Documented On 1 10:05PM ; [facility] Morbid obesity Medical Established Patient with Denny Armani RACKING TECHNICIAN 04/01/2021 Last Documented On 1 4:45PM ; [facility] Z68.42 - Body mass index [BM I] 45.0-49.9, adult Medical Established Patient with Denny Armani RACKING TECHNICIAN 04/01/2021 Last Documented On 1 4:45PM ; [facility] Post-traumatic stress disorder Establ ished Patient with Kinga Short LISWS 03/17/2021 Last Documented On 1 11:59AM ; [facility] Assessment of visit for: scr eening for human immunodeficiency virus Medical New Patient with Dennyartem Lomeli RACKING TECHNICIAN 03/17/2021 Last Documented On 1 4:06PM ; [facility] Diabetes Risk Test Score was one score 03/17/2021 Medical New Patient with Denny Lomeli RACKING TECHNICIAN 03/17/2021 Last Documented On 1 4:06PM ; [facility] Hypertension Medical New Patient with Denny doherty RACKING TECHNICIAN 03/17/2021 Last Documented On 1 4:06PM ; [facility] Morbid obesity Medical New Patient with Dennyartem doherty RACKING TECHNICIAN 03/17/2021 Last Documented On 1 4:06PM ; [facility] Post-traumatic stress disorder Medical New Patie nt with Dennyartem Landonen RACKING TECHNICIAN 03/17/2021 Last Documented On 1 4:06PM ; [facility] Z68.42 - Body mass index [BM I] 45.0-49.9, adult Medical New Patient with Denny Lomeli RACKING TECHNICIAN 03/17/2021 Last Documented On 1 4:06PM ; [facility] Work Phone: [phone]) 230-974103-27-2024 Evaluation note Includes: Assessments for all patient encounters Findings Encounter Date Bipolar affective disorder, current episode depressed, mild Established Patient with Kinga Short LISWS 01/17/2024 Last Documented On 4 5:16PM ; [facility] Post-traumatic stress disorder BH Establ ished Patient with Kinga Short LISWS 01/17/2024 Last Documented On 4 5:16PM ; [facility] Undifferentiated attention d eficit disorder Established Patient with Kinga Short LISWS 01/17/2024 Last Documented On 4 5:16PM ; [facility] Visit for: screening for disorder BH Est ablished Patient with Kinga Short LISWS 01/17/2024 Last Documented On 4 5:16PM ; [facility] [Z68.43 - Body mass index [B TN] 50.0-59.9, adult] assessment of body mass index Medical Established Patient with Dennyartem Lomeli RACKING TECHNICIAN 01/17/2024 Last Documented On 4 7:50PM ; [facility] Attention-deficit hyperactivity disorder Medical Established Patient with Denny Armani RACKING TECHNICIAN 01/17/2024 Last Documented On 4 7:50PM ; [facility] Diabetes Risk Test Score was three score 01/17/2024 Medical Established Patient with Denny Lomeli RACKING TECHNICIAN 01/17/2024 Last Documented On 4 7:50PM ; [facility] Visit for: screening for STD Medical Est ablished Patient with Denny Lomeli RACKING TECHNICIAN 01/17/2024 Last Documented On 4 7:50PM ; [facility] [Z68.32 - Body mass index [B TN] 32.0-32.9, adult] assessment of body mass index Medical Established Patient with Denny Lomeli RACKING TECHNICIAN 05/10/2023 Last Documented On 3 6:01PM ; [facility] Borderline personality disorder Medical Established Patient with Denny Lomeli RACKING TECHNICIAN 05/10/2023 Last Documented On 3 6:01PM ; [facility] Screening for diabetes mellitus Medical Established Patient with Denny Lomeli RACKING TECHNICIAN 05/10/2023 Last Documented On 3 6:01PM ; [facility] Assessment of body mass index Medical Es tablished Patient with Denny Lomeli RACKING TECHNICIAN 08/12/2022 Last Documented On 2 2:45PM ; [facility] Bipolar affective disorder, current episode manic Telebehavioral Health with Belkisdionna CoffeyVelared [facility] 06/16/2022 Last Documented On 2 3:22PM ; [facility] Bipolar affective disorder, current episode manic Established Patient with Belkis Velarde [facility] 06/15/2022 Last Documented On 2 2:28PM ; [facility] Bipolar affective disorder, current episode depressed, severe with psychosis Telebehavioral Health with Belkis Velarde [facility] 06/15/2022 Last Documented On 2 3:29PM ; [facility] Assessment of body mass inde x [Body mass index [BMI] 50.0-59.9, adult] Open Access - Established with Leah Amaya RACKING TECHNICIAN 06/15/2022 Last Documented On 2 9:36AM ; [facility] Bipolar I disorder, most rec ent episode, manic Open Access - Established with Leah Monique RACKING TECHNICIAN 06/15/2022 Last Documented On 2 9:36AM ; [facility] Post-traumatic stress disorder Establ ished Patient with Belkis Velarde [facility] 06/08/2022 Last Documented On 2 3:20PM ; [facility] No cough Medical Established Patient with Dennyartem Lomeli RACKING TECHNICIAN 06/08/2022 Last Documented On 2 4:04PM ; [facility] Z68.43 - Body mass index [BM I] 50.0-59.9, adult Medical Established Patient with Denny Lomeli RACKING TECHNICIAN 06/08/2022 Last Documented On 2 4:04PM ; [facility] Borderline personality disor kyree Pt reported hx of sx/dx Established Patient with Belkisdionna Velarde [facility] 05/27/2022 Last Documented On 2 4:08PM ; [facility] Assessment of body mass inde x [Body mass index [BMI] 50.0-59.9, adult] Open Access - Established with Leah Monique RACKING TECHNICIAN 05/27/2022 Last Documented On 2 7:41PM ; [facility] Diabetes Risk Test Score was three score 05/27/2022 Open Access - Established with Leah Monique RACKING TECHNICIAN 05/27/2022 Last Documented On 2 7:41PM ; [facility] Bipolar I disorder, most rec ent episode, manic Established Patient with Eufemia Mcneil [facility] 07/15/2021 Last Documented On 1 1:35AM ; [facility] Borderline personality disorder Estab lished Patient with Eufemia Mcneil [facility] 07/15/2021 Last Documented On 1 1:35AM ; [facility] Post-traumatic stress disorder Establ ished Patient with Eufemia Mcneil [facility] 07/15/2021 Last Documented On 1 1:35AM ; [facility] Assessment of visit for: scr eening for human immunodeficiency virus Medical Established Patient with Dennyartem Lomeli RACKING TECHNICIAN 07/15/2021 Last Documented On 1 2:56PM ; [facility] Nicotine dependence Medical Established Patient with Denny Armani RACKING TECHNICIAN 07/15/2021 Last Documented On 1 2:56PM ; [facility] Tachycardia Medical Established Patient with Denny Armani RACKING TECHNICIAN 07/15/2021 Last Documented On 1 2:56PM ; [facility] Z68.43 - Body mass index [BM I] 50.0-59.9, adult Medical Established Patient with Denny Armani RACKING TECHNICIAN 07/15/2021 Last Documented On 1 2:56PM ; [facility] Bipolar I disorder, most rec ent episode, manic Established Patient with Kinga Short LISWS 06/17/2021 Last Documented On 1 10:17AM ; [facility] Borderline personality disor kyree per patient reported history Established Patient with Kinga Short LISWS 06/17/2021 Last Documented On 1 10:17AM ; [facility] Nicotine dependence Established Patient with Kinga Short LISWS 06/17/2021 Last Documented On 1 10:17AM ; [facility] Post-traumatic stress disorder Establ ished Patient with Kinga Short LISWS 06/17/2021 Last Documented On 1 10:17AM ; [facility] Body mass index Medical Established Patient with Denny Armani RACKING TECHNICIAN 06/17/2021 Last Documented On 1 5:23PM ; [facility] Morbid obesity Medical Established Patient with Denny Armani RACKING TECHNICIAN 06/17/2021 Last Documented On 1 5:23PM ; [facility] Nicotine dependence uncomplicated Medica l Established Patient with Denny Armani RACKING TECHNICIAN 06/17/2021 Last Documented On 1 5:23PM ; [facility] Z68.42 - Body mass index [BM I] 45.0-49.9, adult Medical Established Patient with Denny Armani RACKING TECHNICIAN 06/17/2021 Last Documented On 1 5:23PM ; [facility] 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 disorders 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 RACKING TECHNICIAN 05/15/2021 Last Documented On 1 7:49AM ; [facility] Mood disorders, NOS per blaze ent reported history Established Patient with Kinga Short LISWS 04/23/2021 Last Documented On 1 7:15PM ; [facility] Post-traumatic stress disorder Establ ished Patient with Kinga Short LISWS 04/23/2021 Last Documented On 1 7:15PM ; [facility] Morbid obesity Medical Established Patient with Denny Armani RACKING TECHNICIAN 04/23/2021 Last Documented On 1 12:31PM ; [facility] Otitis externa Medical Established Patient with Denny Armani RACKING TECHNICIAN 04/23/2021 Last Documented On 1 12:31PM ; [facility] Z68.42 - Body mass index [BM I] 45.0-49.9, adult Medical Established Patient with Denny Armani RACKING TECHNICIAN 04/23/2021 Last Documented On 1 12:31PM ; [facility] Post-traumatic stress disorder Establ ished Patient with Kinga Short LISWS 04/01/2021 Last Documented On 1 10:05PM ; [facility] Morbid obesity Medical Established Patient with Denny Armani RACKING TECHNICIAN 04/01/2021 Last Documented On 1 4:45PM ; [facility] Z68.42 - Body mass index [BM I] 45.0-49.9, adult Medical Established Patient with Dennyartem Lomeli RACKING TECHNICIAN 04/01/2021 Last Documented On 1 4:45PM ; [facility] Post-traumatic stress disorder Establ ished Patient with Kinga Short LISWS 03/17/2021 Last Documented On 1 11:59AM ; [facility] Assessment of visit for: scr eening for human immunodeficiency virus Medical New Patient with Dennyartem Lomeli RACKING TECHNICIAN 03/17/2021 Last Documented On 1 4:06PM ; [facility] Diabetes Risk Test Score was one score 03/17/2021 Medical New Patient with Denny Lomeli RACKING TECHNICIAN 03/17/2021 Last Documented On 1 4:06PM ; [facility] Hypertension Medical New Patient with Dennyartem doherty RACKING TECHNICIAN 03/17/2021 Last Documented On 1 4:06PM ; [facility] Morbid obesity Medical New Patient with Dennyartem doherty RACKING TECHNICIAN 03/17/2021 Last Documented On 1 4:06PM ; [facility] Post-traumatic stress disorder Medical New Patie nt with Dennyartem Lomeli RACKING TECHNICIAN 03/17/2021 Last Documented On 1 4:06PM ; [facility] Z68.42 - Body mass index [BM I] 45.0-49.9, adult Medical New Patient with Denny Lomeli RACKING TECHNICIAN 03/17/2021 Last Documented On 1 4:06PM ; [facility] Work Phone: 1(737) 799-494103-27-2024 Evaluation note Includes: Assessments for all patient encounters Findings Encounter Date Bipolar affective disorder, current episode depressed, mild Established Patient with Kinga Short LISWS 01/17/2024 Last Documented On 4 5:16PM ; [facility] Post-traumatic stress disorder Establ ished Patient with Kinga Short LISWS 01/17/2024 Last Documented On 4 5:16PM ; [facility] Undifferentiated attention d eficit disorder Established Patient with Kinga Short LISWS 01/17/2024 Last Documented On 4 5:16PM ; [facility] Visit for: screening for disorder Est ablished Patient with Kinga Short LISWS 01/17/2024 Last Documented On 4 5:16PM ; [facility] [Z68.43 - Body mass index [B TN] 50.0-59.9, adult] assessment of body mass index Medical Established Patient with Denny Lomeli RACKING TECHNICIAN 01/17/2024 Last Documented On 4 7:50PM ; [facility] Attention-deficit hyperactivity disorder Medical Established Patient with Denny Armani RACKING TECHNICIAN 01/17/2024 Last Documented On 4 7:50PM ; [facility] Diabetes Risk Test Score was three score 01/17/2024 Medical Established Patient with Dennyartem Lomeli RACKING TECHNICIAN 01/17/2024 Last Documented On 4 7:50PM ; [facility] Visit for: screening for STD Medical Est ablished Patient with Denny Lomeli RACKING TECHNICIAN 01/17/2024 Last Documented On 4 7:50PM ; [facility] [Z68.32 - Body mass index [B TN] 32.0-32.9, adult] assessment of body mass index Medical Established Patient with Denny Lomeli RACKING TECHNICIAN 05/10/2023 Last Documented On 3 6:01PM ; [facility] Borderline personality disorder Medical Established Patient with Denny Lomeli RACKING TECHNICIAN 05/10/2023 Last Documented On 3 6:01PM ; [facility] Screening for diabetes mellitus Medical Established Patient with Denny Lomeli RACKING TECHNICIAN 05/10/2023 Last Documented On 3 6:01PM ; [facility] Assessment of body mass index Medical Es tablished Patient with Denny Lomeli RACKING TECHNICIAN 08/12/2022 Last Documented On 2 2:45PM ; [facility] Bipolar affective disorder, current episode manic [facility] with Belkis Velarde LPCC-S 06/16/2022 Last Documented On 2 3:22PM ; [facility] Bipolar affective disorder, current episode manic Established Patient with Belkis Velarde LPCC-S 06/15/2022 Last Documented On 2 2:28PM ; [facility] Bipolar affective disorder, current episode depressed, severe with psychosis [facility] with Belkis Velarde LPCC-S 06/15/2022 Last Documented On 2 3:29PM ; [facility] Assessment of body mass inde x [Body mass index [BMI] 50.0-59.9, adult] Open Access - Established with Leah Monique RACKING TECHNICIAN 06/15/2022 Last Documented On 2 9:36AM ; [facility] Bipolar I disorder, most rec ent episode, manic Open Access - Established with Leah Monique RACKING TECHNICIAN 06/15/2022 Last Documented On 2 9:36AM ; [facility] Post-traumatic stress disorder Establ ished Patient with Belkis Velarde LPCC-S 06/08/2022 Last Documented On 2 3:20PM ; [facility] No cough Medical Established Patient with Denny Lomeli RACKING TECHNICIAN 06/08/2022 Last Documented On 2 4:04PM ; [facility] Z68.43 - Body mass index [BM I] 50.0-59.9, adult Medical Established Patient with Denny Lomeli RACKING TECHNICIAN 06/08/2022 Last Documented On 2 4:04PM ; [facility] Borderline personality disor kyree Pt reported hx of sx/dx Established Patient with Belkis Velarde LPCC-S 05/27/2022 Last Documented On 2 4:08PM ; [facility] Assessment of body mass inde x [Body mass index [BMI] 50.0-59.9, adult] Open Access - Established with Leah Monique RACKING TECHNICIAN 05/27/2022 Last Documented On 2 7:41PM ; [facility] Diabetes Risk Test Score was three score 05/27/2022 Open Access - Established with Leah Monique RACKING TECHNICIAN 05/27/2022 Last Documented On 2 7:41PM ; [facility] Bipolar I disorder, most rec ent episode, manic Established Patient with Eufemia Mcneil LPCC-S 07/15/2021 Last Documented On 1 1:35AM ; [facility] Borderline personality disorder Estab lished Patient with Eufemia Mcneil LPCC-S 07/15/2021 Last Documented On 1 1:35AM ; [facility] Post-traumatic stress disorder Establ ished Patient with Eufemia Mcneil LPCC-S 07/15/2021 Last Documented On 1 1:35AM ; [facility] Assessment of visit for: lloyd strange for human immunodeficiency virus Medical Established Patient with Denny Lomeli RACKING TECHNICIAN 07/15/2021 Last Documented On 1 2:56PM ; [facility] Nicotine dependence Medical Established Patient with Dennyartem Lomeli RACKING TECHNICIAN 07/15/2021 Last Documented On 1 2:56PM ; [facility] Tachycardia Medical Established Patient with Denny Lomeli RACKING TECHNICIAN 07/15/2021 Last Documented On 1 2:56PM ; [facility] Z68.43 - Body mass index [BM I] 50.0-59.9, adult Medical Established Patient with Dennyartem Lomeli RACKING TECHNICIAN 07/15/2021 Last Documented On 1 2:56PM ; [facility] Bipolar I disorder, most rec ent episode, manic Established Patient with Kinga Short LISWS 06/17/2021 Last Documented On 1 10:17AM ; [facility] Borderline personality disor kyree per patient reported history Established Patient with Kinga Short LISWS 06/17/2021 Last Documented On 1 10:17AM ; [facility] Nicotine dependence Established Patient with Kinga Short LISWS 06/17/2021 Last Documented On 1 10:17AM ; [facility] Post-traumatic stress disorder Establ ished Patient with Kinga Short LISWS 06/17/2021 Last Documented On 1 10:17AM ; [facility] Body mass index Medical Established Patient with Denny Lomeli RACKING TECHNICIAN 06/17/2021 Last Documented On 1 5:23PM ; [facility] Morbid obesity Medical Established Patient with Denny Armani RACKING TECHNICIAN 06/17/2021 Last Documented On 1 5:23PM ; [facility] Nicotine dependence uncomplicated Medica l Established Patient with Denny Lomeli RACKING TECHNICIAN 06/17/2021 Last Documented On 1 5:23PM ; [facility] Z68.42 - Body mass index [BM I] 45.0-49.9, adult Medical Established Patient with Dennyartem Landonen RACKING TECHNICIAN 06/17/2021 Last Documented On 1 5:23PM ; [facility] 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 disorders 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 RACKING TECHNICIAN 05/15/2021 Last Documented On 1 7:49AM ; [facility] Mood disorders, NOS per blaze ent reported history Established Patient with Kinga Short LISWS 04/23/2021 Last Documented On 1 7:15PM ; [facility] Post-traumatic stress disorder Establ ished Patient with Kinga Short LISWS 04/23/2021 Last Documented On 1 7:15PM ; [facility] Morbid obesity Medical Established Patient with Denny Armani RACKING TECHNICIAN 04/23/2021 Last Documented On 1 12:31PM ; [facility] Otitis externa Medical Established Patient with Denny Armani RACKING TECHNICIAN 04/23/2021 Last Documented On 1 12:31PM ; [facility] Z68.42 - Body mass index [BM I] 45.0-49.9, adult Medical Established Patient with Denny Armani RACKING TECHNICIAN 04/23/2021 Last Documented On 1 12:31PM ; [facility] Post-traumatic stress disorder Establ ished Patient with Kinga Short LISWS 04/01/2021 Last Documented On 1 10:05PM ; [facility] Morbid obesity Medical Established Patient with Denny Armani RACKING TECHNICIAN 04/01/2021 Last Documented On 1 4:45PM ; [facility] Z68.42 - Body mass index [BM I] 45.0-49.9, adult Medical Established Patient with Denny Armani RACKING TECHNICIAN 04/01/2021 Last Documented On 1 4:45PM ; [facility] Post-traumatic stress disorder Establ ished Patient with Kinga Short LISWS 03/17/2021 Last Documented On 1 11:59AM ; [facility] Assessment of visit for: lloyd eening for human immunodeficiency virus Medical New Patient with Dennyartem Lomeli RACKING TECHNICIAN 03/17/2021 Last Documented On 1 4:06PM ; [facility] Diabetes Risk Test Score was one score 03/17/2021 Medical New Patient with Denny Armani RACKING TECHNICIAN 03/17/2021 Last Documented On 1 4:06PM ; [facility] Hypertension Medical New Patient with Denny C chas RACKING TECHNICIAN 03/17/2021 Last Documented On 1 4:06PM ; [facility] Morbid obesity Medical New Patient with Denny C chas RACKING TECHNICIAN 03/17/2021 Last Documented On 1 4:06PM ; [facility] Post-traumatic stress disorder Medical New Patie nt with Denny Lomeli RACKING TECHNICIAN 03/17/2021 Last Documented On 1 4:06PM ; [facility] Z68.42 - Body mass index [BM I] 45.0-49.9, adult Medical New Patient with Denny Lomeli RACKING TECHNICIAN 03/17/2021 Last Documented On 1 4:06PM ; [facility] Work Phone: 1(817) 414-155803-27-2024 History general Narrative - Reported Includes: Medical History in patient's chart Description Last Updated 0 previous live (s) 01/17/2024 Last Documented On 4 7:50PM ; [facility] Previously 1 time(s) 01/17/2024 Last Documented On 4 7:50PM ; [facility] Recent immunization for flu 01/17/2024 Last Documented On 4 7:50PM ; [facility] Has sex without a condom 06/08/2022 Last Documented On 2 4:04PM ; [facility] Not planning to have a baby in the next 12 months 06/08/2022 Last Documented On 2 4:04PM ; [facility] Partners sexually transmitted infection status known 06/08/2022 Last Documented On 2 4:04PM ; [facility] No previous hospitalizations 06/08/2022 Last Documented On 2 4:04PM ; [facility] Chronic illness 05/17/2021 Last Documented On 1 7:49AM ; [facility] Exposure to COVID-19 04/23/2021 Last Documented On 1 12:31PM ; [facility] History of gynecologic disorder 03/17/20 21 Last Documented On 1 4:06PM ; [facility] History of Polycystic Ovarian Syndrome ( PCOS) 03/17/2021 Last Documented On 1 4:06PM ; [facility] History of anxiety disorder NOS 03/17/20 21 Last Documented On 1 4:06PM ; [facility] History of migraine headache 03/17/2021 Last Documented On 1 4:06PM ; [facility] History of psychiatric disorders biopola r disorder 03/17/2021 Last Documented On 1 4:06PM ; [facility] Work Phone: 1(725) 152-401103-27-2024 History general Narrative - Reported Includes: Medical History in patient's chart Description Last Updated 0 previous live (s) 01/17/2024 Last Documented On 4 7:50PM ; [facility] Previously 1 time(s) 01/17/2024 Last Documented On 4 7:50PM ; [facility] Recent immunization for flu 01/17/2024 Last Documented On 4 7:50PM ; [facility] Has sex without a condom 06/08/2022 Last Documented On 2 4:04PM ; [facility] Not planning to have a baby in the next 12 months 06/08/2022 Last Documented On 2 4:04PM ; [facility] sexually transmitted infection status known 06/08/2022 Last Documented On 2 4:04PM ; [facility] No previous hospitalizations 06/08/2022 Last Documented On 2 4:04PM ; [facility] Chronic illness 05/17/2021 Last Documented On 1 7:49AM ; [facility] Exposure to COVID-19 04/23/2021 Last Documented On 1 12:31PM ; [facility] History of gynecologic disorder 03/17/20 21 Last Documented On 1 4:06PM ; [facility] History of Polycystic Ovarian Syndrome ( PCOS) 03/17/2021 Last Documented On 1 4:06PM ; [facility] History of anxiety disorder NOS 03/17/20 21 Last Documented On 1 4:06PM ; [facility] History of migraine headache 03/17/2021 Last Documented On 1 4:06PM ; [facility] History of psychiatric disorders biopola r disorder 03/17/2021 Last Documented On 1 4:06PM ; [facility] Work Phone: 1(489) [phone] History general Narrative - Reported Includes: Medical History in patient's chart Description Last Updated 0 previous live (s) 01/17/2024 Last Documented On 4 7:50PM ; [facility] Previously 1 time(s) 01/17/2024 Last Documented On 4 7:50PM ; [facility] Recent immunization for flu 01/17/2024 Last Documented On 4 7:50PM ; [facility] Has sex without a condom 06/08/2022 Last Documented On 2 4:04PM ; [facility] Not planning to have a baby in the next 12 months 06/08/2022 Last Documented On 2 4:04PM ; [facility] sexually transmitted infection status known 06/08/2022 Last Documented On 2 4:04PM ; [facility] No previous hospitalizations 06/08/2022 Last Documented On 2 4:04PM ; [facility] Chronic illness 05/17/2021 Last Documented On 1 7:49AM ; [facility] Exposure to COVID-19 04/23/2021 Last Documented On 1 12:31PM ; [facility] History of gynecologic disorder 03/17/20 21 Last Documented On 1 4:06PM ; [facility] History of Polycystic Ovarian Syndrome ( PCOS) 03/17/2021 Last Documented On 1 4:06PM ; [facility] History of anxiety disorder NOS 03/17/20 21 Last Documented On 1 4:06PM ; [facility] History of migraine headache 03/17/2021 Last Documented On 1 4:06PM ; [facility] History of psychiatric disorders biopola r disorder 03/17/2021 Last Documented On 1 4:06PM ; [facility]: 1(871) 768-640903-27-2024 Progress note* Progress note Date Encounter Last Documented by 01/17/2024 Medical Established Patient Last documented on 01/17/2024; 7:50 PM, Denny Lomeli CNP; [facility] Active Problems & Conditions - F90.9 - Attention-deficit Hyperactivity Disorder - F31.31 - Bipolar I Disorder, Most Recent Episode, Depressed Mild - F43.10 - Post-traumatic Stress Disorder Chief Complaint The Chief Complaint is: Patient was D/C'd from [facility] in [place] for no call no show. Patient needs all meds refilled. Ran out 3 days ago. Referred Here No prior encounters. History of Present Illness Cordelia Guaman is a 23 year old female. - Allergy list reviewed - Reviewed Medications - Medication list reviewed - Date of last menstruation 10/25/2023 - test - would not like a test Presents to see if we can take over psych meds , got dismissed from [facility] r/t no shows. has felt stable on meds x 11 months Current Medication - ARIPiprazole 5 MG Oral Tablet once daily, 90 days, 0 refills - busPIRone HCl 5 MG Oral Tablet one tablet twice daily, 90 days, 0 refills - lamoTRIgine 100 MG Oral Tablet once daily, 30 days, 0 refills - metFORMIN HCl 500 MG Oral Tablet AM and PM per [facility] in [place], 30 days, 0 refills - MiraLax 17 GM/SCOOP Oral Powder mix 1 scoop with 8 ounces once daily, 30 days, 2 refills - Narcan 4 MG/0.1ML Nasal Liquid spray in nostril for symptoms of overdose , may repeat in 2 minutes if symptoms persist, 1 days, 0 refills - Prazosin HCl 1 MG Oral Capsule twice daily, 90 days, 0 refills - Sertraline HCl 50 MG Oral Tablet Once daily, 30 days, 0 refills - traZODone HCl 100 MG Oral Tablet twice daily, 30 days, 0 refills Past Medical/Surgical History Reported: Has sex without a condom. Medical: No previous hospitalizations. Chronic illness and Sexually transmitted infection Partners sexually transmitted infection status known. Immunization History: Recent immunization for flu. Exposure: Exposure to COVID-19. : Previously 1 time(s) and para having 0 live (s). Not planning a in the next year. Diagnoses: Polycystic Ovarian Syndrome (PCOS). Migraine headache. Psychiatric disorders biopolar disorder Anxiety disorder NOS Procedural: - Insertion of ear pressure equalization tubes in both ears Surgical: - Tonsillectomy - Tonsillectomy with adenoidectomy Social History Environmental Exposure: No secondhand cigarette smoke exposure. Behavioral: Not a current tobacco user. Tobacco use: Using electronic cigarettes/vaping. Alcohol: Not using alcohol. Drug Use: Not using drugs denied by patient. Sexual: Sexually active age of sexual partner is years old 21, sexual orientation Lesbian or Shin, gender identity Other, and control is being practiced Not Using - In Same Sex Relationship. Allergies - Abilify Reaction: groggy - Augmentin Reaction: Shock - metformin Reaction: Nausea, Vomiting - trazodone Reaction: Panic attack - Zoloft Reaction: slow/ groggy Family History Paternal: Systemic hypertension Oncologic disorder Maternal: Systemic hypertension Epilepsy and recurrent seizures Psychiatric disorders Oncologic disorder Fraternal: Psychiatric disorders Review Of Systems Head: No head symptoms. Neck: No neck symptoms. Eyes: No eye symptoms. Otolaryngeal: No ear symptoms, no nasal symptoms, no nose and sinus finding, no throat symptoms, no oral cavity symptoms, and no jaw symptoms. Breasts: No breast symptoms. Cardiovascular: No cardiovascular symptoms and no chest pain or discomfort. Pulmonary: No pulmonary symptoms. Gastrointestinal: No gastrointestinal symptoms. Genitourinary: No genitourinary symptoms. Musculoskeletal: No musculoskeletal symptoms. Neurological: No neurological symptoms. Psychological: Easily distracted. Skin: No skin symptoms. Physical Findings - Vitals taken 01/17/2024 07:09 pm BP-Sitting R134/88 mmHg BP Cuff SizeLarge Pulse Rate-Hflbpib054 bpm Tjihdn58 in Wzugea446 lbs Body Mass Index52.7 kg/m2 Body Surface Area2.3 m2 Oxygen Pwmmgspcbc16 % Vital Signs: - Systolic blood pressure 130 - 139 mmHg. - Diastolic blood pressure 80-89 mmHg. General Appearance: - Awake. - Alert. - Well developed. - Well nourished. - In no acute distress. Lungs: - Respiration rhythm and depth was normal. - Clear to auscultation. Cardiovascular: Heart Rate And Rhythm: - Normal. Heart Sounds: - Normal. Murmurs: - No murmurs were heard. Abdomen: Visual Inspection: - Abdomen was normal on visual inspection. Musculoskeletal System: General/bilateral: - Normal movement of all extremities. Skin: - General appearance was normal. Tests Blood Analysis: Hemoglobin Studies: ValueDate Blood hemoglobin A1c 5.5%01/17/2024 Hemoglobin A1c level < 7.0%. Blood Endocrine Laboratory Tests: Value Blood glucose level by fingerstick Non-fasting 96 mg/dl Laboratory-based Chemistry: Other Laboratory Tests: Screening for sexually transmitted infections was performed. Assessment - Z11.3 - Encounter for screening for infections with a predominantly sexual mode of transmission - Z68.43 - Body mass index [BMI] 50.0-59.9, adult - Z13.1 - Encounter for screening for diabetes mellitus - F90.9 - Attention-deficit hyperactivity disorder, unspecified type Vaccinations - 1st Dose PFIZER COVID-19 Vaccine Dose #1 Status: Prev Hist Date: 06/08/2021 - 1st Dose PFIZER COVID-19 Vaccine Dose #2 Status: Prev Hist Date: 06/29/2021 - DTP Dose #1 Status: Prev Hist Date: 1999 - Hep B, adolescent or pediatric (Engerix-B) Dose #1 Status: Prev Hist Date: 1999 - Hep B, adolescent or pediatric (Engerix-B) Dose #2 Status: Prev Hist Date: 1999 - Hib-Hep B (Comvax) Dose #1 Status: Prev Hist Date: 1999 - IPV (IPOL) Dose #1 Status: Prev Hist Date: 1999 - IPV (IPOL) Dose #2 Status: Prev Hist Date: 03/13/2000 - IPV (IPOL) Dose #3 Status: Prev Hist Date: 06/18/2004 - MMR (MMR-II) Dose #1 Status: Prev Hist Date: 03/13/2000 - MMR (MMR-II) Dose #2 Status: Prev Hist Date: 06/18/2004 - Meningococcal MCV4O Dose #1 Status: Prev Hist Date: 06/29/2016 - OPV Dose #1 Status: Prev Hist Date: 1999 - Tdap (Boostrix) Dose #1 Status: Prev Hist Date: 06/24/2010 - Received dose of Reported: Patient has received the COVID Vaccine Counseling/Education - Wishing to stop using electronic cigarettes/vaping - Discussed nutritional needs teach healthy choices including fruits and vegetables - Patient education about a proper diet - Not requesting contraception - Discussed concerns about exercise: promote physical activity Plan StartCited- Attention-deficit hyperactivity disorder, unspecified type Intuniv 1 MG tablet take 1 tablet by mouth once daily at bedtime, 30 days, 5 refills EndCited StartCited- Encntr screen for infections w sexl mode of transmiss Outside Labs/Microbiology: All 3 Urine Test Sbuifwxsj-Oonbqgpzm-Wdrekemutog EndCited StartCited- Other Follow-up Appointment 2 month med check ARIPiprazole 5 MG tablet take 1 tablet by mouth once daily, 30 days, 5 refills busPIRone HCl 5 MG tablet take 1 tablet by mouth twice daily, 30 days, 5 refills lamoTRIgine 100 MG tablet take 1 tablet by mouth once daily, 30 days, 5 refills Prazosin HCl 1 MG capsule take 1 capsule by mouth twice daily, 30 days, 5 refills Sertraline HCl 50 MG tablet take 1 tablet by mouth once daily, 30 days, 5 refills traZODone HCl 100 MG tablet take 1 tablet by mouth twice daily, 30 days, 5 refills EndCited Care Team - Denny Lomeli CNP Health Reminders - Assess BMI satisfied 01/17/2024. - Assess Tobacco Use satisfied 01/17/2024. - Diabetes Risk Screening Needed satisfied 01/17/2024. - Follow Up Plan BMI Management satisfied 01/17/2024. - Smoking & Tobacco Cessation Intervention and Counseling satisfied 01/17/2024. User Defined 1 Not planning a in the next year. No (0 points) [Pre-DM]: No, patient has not been diagnosed with high blood pressure, No (0 points) [Pre-DM]: Patient has not been diagnosed with gestational diabetes or given to a baby weighing 9 pounds or more, No (0 points) [Pre-DM]: No, mother, father, sister, or brother does not have DM, No (1 point) [Pre-DM]: No, not physically active, and Woman (0 Points) [Pre-DM]. Less than 40 years (0 points) [Pre-DM]. [facility]03-27-2024 Progress note* Progress note Date Encounter Last Documented by 01/17/2024 Established Patient Last docu mented on 01/18/2024; 5:16 PM, Kinga RUDOLPH; [facility] Active Problems & Conditions - F90.9 - Attention-deficit Hyperactivity Disorder - F31.31 - Bipolar I Disorder, Most Recent Episode, Depressed Mild - F43.10 - Post-traumatic Stress Disorder Chief Complaint The Chief Complaint is: [facility] met with patient to follow-up regarding mood and medications and discuss PHQ score of 2. Patient reports recently getting dismissed from services at a [facility] in [place] due to missing appointments. Patient reports being on a good medication regimen and feels that moods have been stable, sober from drugs for 6-7 months, in a healthy relationship and engaging with family and friends. Patient reports being diagnosed with ADHD but not treated at this time and would like to be due to concentration and focus issues. Patient reports no thoughts of harm toward self or others. History of Present Illness Cordelia Guaman is a 23 year old female. - No Irritability - Normal appetite - Anxiety - Energy level is good - Easily distracted - Racing thoughts - No depression - No sleep disturbances - No loss of interest in activities - Not feeling guilty - No social isolation - No impulsive behavior - No high involvement in pleasurable activities Current Medication - ARIPiprazole 5 MG Oral Tablet take 1 tablet by mouth once daily, 30 days, 5 refills - ARIPiprazole 5 MG Oral Tablet once daily, 90 days, 0 refills - busPIRone HCl 5 MG Oral Tablet take 1 tablet by mouth twice daily, 30 days, 5 refills - busPIRone HCl 5 MG Oral Tablet one tablet twice daily, 90 days, 0 refills - Intuniv 1 MG Oral Tablet Extended Release 24 Hour take 1 tablet by mouth once daily at bedtime, 30 days, 5 refills - lamoTRIgine 100 MG Oral Tablet take 1 tablet by mouth once daily, 30 days, 5 refills - lamoTRIgine 100 MG Oral Tablet once daily, 30 days, 0 refills - metFORMIN HCl 500 MG Oral Tablet AM and PM per DESIGN INTERN/NOMS in [place], 30 days, 0 refills - MiraLax 17 GM/SCOOP Oral Powder mix 1 scoop with 8 ounces once daily, 30 days, 2 refills - Narcan 4 MG/0.1ML Nasal Liquid spray in nostril for symptoms of overdose , may repeat in 2 minutes if symptoms persist, 1 days, 0 refills - Prazosin HCl 1 MG Oral Capsule take 1 capsule by mouth twice daily, 30 days, 5 refills - Prazosin HCl 1 MG Oral Capsule twice daily, 90 days, 0 refills - Sertraline HCl 50 MG Oral Tablet take 1 tablet by mouth once daily, 30 days, 5 refills - Sertraline HCl 50 MG Oral Tablet Once daily, 30 days, 0 refills - traZODone HCl 100 MG Oral Tablet take 1 tablet by mouth twice daily, 30 days, 5 refills - traZODone HCl 100 MG Oral Tablet twice daily, 30 days, 0 refills Social History Environmental Exposure: No secondhand cigarette smoke exposure. Personal: Recent emotional stress due to running out of medications recently. Behavioral: Not a current tobacco user. Tobacco use: Using electronic cigarettes/vaping. Alcohol: Not using alcohol. 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 Not using drugs. Physical Findings General Appearance: - Normal Appearance. Neurological: - Estimated intelligence was normal. - Oriented to time, place, and person. - No hallucinations. - Judgement was not impaired. Speech: - Is Normal. Psychiatric: - Mood is Euthymic. - Attitude Open. Demonstrated Behavior: - Motor Activity Normal Activity. - Eye Contact Appropriate. Affect: - Congruent with the mood. Thought Content: - Insight was intact. - No delusions. - No suicidal ideation. - No Passive thoughts of . - No suicidal plans. - No suicidal intent. - No homicidal ideations. - No homicidal plans. - No homicidal intent. Past Medical: - No repetitive self injurious behavior. Assessment - Z13.89 - Encounter for screening for other disorder - F90.9 - Attention-deficit hyperactivity disorder, unspecified type - F31.31 - Bipolar disorder, current episode depressed, mild - F43.10 - Post-traumatic stress disorder, unspecified Therapy - Developmental/Behavioral Screening & Testing - PHQ9. - SBIRT Full Screen Neg. - Brief solution-focused therapy. - Visit 30 Minutes. - Plan - PCP to continue current medications and start Intuniv 1 mg daily. Patient agreeable to plan and Collaborated with patient and provider: Counseling/Education P offered active and supportive listening and processed current stressors related to getting medications. BHP discussed coping skills and supports to implement in daily routine. P discussed progress patient has felt they have made recently and encouraged continued follow-up with providers to address health. Plan Patient to take medications as prescribed and contact the office with any questions or concerns. Patient to implement coping skills and positive supports as discussed. P to attempt to follow-up with patient via phone in 2 weeks and at next in person visit as scheduled. Care Team - Denny Lomeli CNP Health Reminders - Assess Tobacco Use satisfied 01/17/2024. - GLORIA-2 satisfied 01/17/2024. - PHQ9 / PHQA satisfied 01/17/2024. - SBIRT satisfied 01/17/2024. User Defined 1 Not afraid of someone you have a relationship with No. Has lack of transportation kept patient from medical appointments or from getting medications: No and lack of transportation has kept patient from beneficial non-medical activities: No. She has not had 4 or more drinks in a day within the past year. Do you feel stress - tense, restless, nervous, or anxious, or unable to sleep at night because your mind is troubled all the time - these days? A little bit. No misuse of prescription only drugs. Illicit drug use and Does patient feel physically and emotionally safe where he/she lives: Yes. Is patient is worried about losing housing: No. What is the highest grade or level of school you have completed or the highest degree you have received? More than high school. In the past year, patient or family members in household were unable to get needed clothing: No, unable to get needed child's nurse: No, unable to get other needs No, unable to get needed phone: No, unable to get needed utilities: No, unable to get needed Medicine or Health Care: No, and In the past year, patient or family members in household were unable to get needed food: No. How often does patient see or talk to people that that he/she cares about and feels close to: 5 or more times a week. GLORIA-2 score was two 01/17/2024, GLORIA-7 score [GLORIA-7] Feeling nervous, anxious or on edge? + 2 pt : More than half the days, [GLORIA-7] Not being able to stop or control worrying? + 0 pt : Not at all, Patient Health Questionnaire 9-Item total score was two 01/17/2024 If you checked off problems, how difficult is it for you to do your work? + : Somewhat difficult, [PHQ-9-1] Little interest or pleasure in doing things? + 0 pt : Not at all, [PHQ-9-2] Feeling down, depressed, or hopeless? + 0 pt : Not at all, [PHQ-9-3] Trouble falling or staying asleep or sleeping too much? + 0 pt : Not at all, [PHQ-9-4] Feeling tired or having little energy? + 0 pt : Not at all, [PHQ-9-5] Poor appetite or overeating? + 0 pt : Not at all, [PHQ-9-6] Feeling bad about yourself-or that you are a failure + 0 pt : Not at all, [PHQ-9-7] Trouble concentrating on things such as reading the newspaper + 2 pt : More than half the days, [PHQ-9-8] Moving or speaking so slowly that other people have noticed. + 0 pt : Not at all, and [PHQ-9-9] Thoughts that you would be better off or hurting yourself? + 0 pt : Not at all. [facility]07-19-2023 Progress note* Progress note Date Encounter Last Documented by 05/10/2023 Medical Established Patient Last documented on 05/10/2023; 6:01 PM, Denny Lomeli CNP; [facility] Active Problems & Conditions - F31.10 - Bipolar I Disorder, Most Recent Episode, Manic - F60.3 - Borderline Personality Disorder - F43.10 - Post-traumatic Stress Disorder Chief Complaint The Chief Complaint is: Yearly follow up/would like referral to psychiatry (not Dr. Preston). Referred Here No prior encounters. History of Present Illness Cordelia Guaman is a 23 year old female. - Allergy list reviewed - Reviewed Medications not taking any medications - Medication list reviewed Presents to get psych referral anyone but dr preston we had tried dr carney in the past who was not accepting pts at that time. bh not in house and pt felt she didnt need to speak to the outside provider covering I have a counselor Yearly follow up, would like a referral to psychiatry/not Dr. Preston, she does see Belkis Clarke a counselor at [facility] Currently only taking Metformin d/t PCOS Current Medication - Aldactazide 50-50 MG Oral Tablet take 1 tablet by mouth once daily, 30 days, 11 refills - metFORMIN HCl 500 MG Oral Tablet AM and PM per DESIGN INTERN/NOMS in [place], 30 days, 0 refills - MiraLax 17 GM/SCOOP Oral Powder mix 1 scoop with 8 ounces once daily, 30 days, 2 refills - Narcan 4 MG/0.1ML Nasal Liquid spray in nostril for symptoms of overdose , may repeat in 2 minutes if symptoms persist, 1 days, 0 refills Past Medical/Surgical History Reported: Has sex without a condom. Medical: No previous hospitalizations. Chronic illness and Sexually transmitted infection Partners sexually transmitted infection status known. Exposure: Exposure to COVID-19. : Previously 0 time(s). Not planning to have a baby in the next 12 months. Diagnoses: Polycystic Ovarian Syndrome (PCOS). Migraine headache. Psychiatric disorders biopolar disorder Anxiety disorder NOS Procedural: - Insertion of ear pressure equalization tubes in both ears Surgical: - Tonsillectomy - Tonsillectomy with adenoidectomy Social History Environmental Exposure: No secondhand cigarette smoke exposure. Behavioral: Not a current tobacco user. Tobacco use: Not using electronic cigarettes/vaping. Alcohol: Not using alcohol. Drug Use: Using marijuana. Sexual: Sexual orientation Other and gender identity Other. Allergies - Abilify Reaction: groggy - Augmentin Reaction: Shock - metformin Reaction: Nausea, Vomiting - trazodone Reaction: Panic attack - Zoloft Reaction: slow/ groggy Family History Paternal: Systemic hypertension Oncologic disorder Maternal: Systemic hypertension Epilepsy and recurrent seizures Psychiatric disorders Oncologic disorder Fraternal: Psychiatric disorders Review Of Systems Head: No head symptoms. Neck: No neck symptoms. Eyes: No eye symptoms. Otolaryngeal: No ear symptoms, no nasal symptoms, no nose and sinus finding, no throat symptoms, no oral cavity symptoms, and no jaw symptoms. Breasts: No breast symptoms. Cardiovascular: No cardiovascular symptoms and no chest pain or discomfort. Pulmonary: No pulmonary symptoms. Gastrointestinal: No gastrointestinal symptoms. Genitourinary: No genitourinary symptoms. Musculoskeletal: No musculoskeletal symptoms. Neurological: No neurological symptoms. Psychological: No psychological symptoms. Skin: No skin symptoms. Cardiovascular: Edema not present. Physical Findings - Vitals taken 05/10/2023 05:08 pm BP-Sitting L111/76 mmHg BP Cuff SizeLarge Pulse Rate-Idvvhiu82 bpm Temp-Oral98.2 F Prugfx21 in Olhvqr956 lbs Body Mass Index32.8 kg/m2 Body Surface Area1.9 m2 Oxygen Fljkclixvg10 % Vital Signs: - Systolic blood pressure < 130 mmHg. - Diastolic Blood Pressure < 80 mmHg. General Appearance: - Awake. - Alert. - Well developed. - Well nourished. - In no acute distress. Lungs: - Respiration rhythm and depth was normal. - Clear to auscultation. Cardiovascular: Heart Rate And Rhythm: - Normal. Heart Sounds: - Normal. Murmurs: - No murmurs were heard. Thrill: - No thrill. Abdomen: Visual Inspection: - Abdomen was normal on visual inspection. Musculoskeletal System: General/bilateral: - Abnormal movement of all extremities. Skin: - General appearance was normal. Tests Blood Analysis: Hemoglobin Studies: ValueDate Blood hemoglobin A1c 5.3%05/10/2023 Hemoglobin A1c level < 7.0%. Blood Endocrine Laboratory Tests: Value Blood glucose level by fingerstick Non-fasting 114 mg/dl Assessment - Z68.32 - Body mass index [BMI] 32.0-32.9, adult - F60.3 - Borderline personality disorder - Z13.1 - Encounter for screening for diabetes mellitus Therapy - Patient has agreed to receive flu vaccine today. Vaccinations - Received dose of Reported: Patient has received the COVID Vaccine Counseling/Education - Discussed nutritional needs teach healthy choices including fruits and vegetables - Patient education about a proper diet - Discussed concerns about exercise: promote physical activity Plan StartCited- Borderline personality disorder Referrals: Psychiatry Instructions: Please make a referral to: see if dr carney accepting now, otherwise ok with rd or ana EndCited StartCited- Essential (primary) hypertension Aldactazide 50-50 MG tablet take 1 tablet by mouth once daily, 30 days, 11 refills EndCited StartCited- Other Follow-up Appointment f/u phone call 1 month EndCited Health Reminders - Assess BMI satisfied 05/10/2023. - Assess Tobacco Use satisfied 05/10/2023. - Follow Up Plan BMI Management satisfied 05/10/2023. [facility]10-21-2022 Evaluation note Includes: Assessments for all patient encounters Findings Encounter Date Assessment of body mass index Medical Es tablished Patient with Denny Lomeli [facility] 08/12/2022 Bipolar affective disorder, current episode manic Telebehavioral Health with Belkis Coffeyerson [facility] 06/16/2022 Bipolar affective disorder, current episode manic Established Patient with Belkis Coffeyerson [facility] 06/15/2022 Bipolar affective disorder, current episode depressed, severe with psychosis Telebehavioral Health with Belkis Coffeyerson [facility] 06/15/2022 Assessment of body mass inde x [Body mass index [BMI] 50.0-59.9, adult] Open Access - Established with Leah Amaya [facility] 06/15/2022 Bipolar I disorder, most rec ent episode, manic Open Access - Established with Leah Monique [facility] 06/15/2022 Post-traumatic stress disorder Establ ished Patient with Belkis Coffeyerson [facility] 06/08/2022 No cough Medical Established Patient with Denny Lomeli [facility] 06/08/2022 Z68.43 - Body mass index [BM I] 50.0-59.9, adult Medical Established Patient with Denny Landonen [facility] 06/08/2022 Borderline personality disor kyree Pt reported hx of sx/dx Established Patient with Belkis Velarde [facility] 05/27/2022 Assessment of body mass inde x [Body mass index [BMI] 50.0-59.9, adult] Open Access - Established with Leah Monique [facility] 05/27/2022 Diabetes Risk Test Score was three score 05/27/2022 Open Access - Established with Leah Monique [facility] 05/27/2022 Bipolar I disorder, most rec ent episode, manic Established Patient with Eufemia Mcneil [facility] 07/15/2021 Borderline personality disorder Estab lished Patient with Eufemia Mcneil [facility] 07/15/2021 Post-traumatic stress disorder Establ ished Patient with Eufemia Mcneil [facility] 07/15/2021 Assessment of visit for: lloyd strange for human immunodeficiency virus Medical Established Patient with Denny Armani [facility] 07/15/2021 Nicotine dependence Medical Established Patient with Denny Armani [facility] 07/15/2021 Tachycardia Medical Established Patient with Denny Armani [facility] 07/15/2021 Z68.43 - Body mass index [BM I] 50.0-59.9, adult Medical Established Patient with Denny Armani [facility] 07/15/2021 Bipolar I disorder, most rec ent episode, manic Established Patient with Kinga Short [facility] 06/17/2021 Borderline personality disor kyree per patient reported history Established Patient with Kinga Short [facility] 06/17/2021 Nicotine dependence Established Patie nt with Kinga Short [facility] 06/17/2021 Post-traumatic stress disorder Establ ished Patient with Kinga Short [facility] 06/17/2021 Body mass index Medical Established Patient with Denny Armani [facility] 06/17/2021 Morbid obesity Medical Established Patient with Denny Armani [facility] TE[facility]IC[facility] 06/17/2021 Nicotine dependence uncomplicated Medica l Established Patient with Denny Armani [facility] TECHNIC[facility] 06/17/2021 Z68.42 - Body mass index [BM I] 45.0-49.9, adult Medical Established Patient with Denny Armani [facility]NIC[facility] 06/17/2021 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 disorders 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 [facility] 05/15/2021 Mood disorders, NOS per blaze ent reported history Established Patient with Kinga Short [facility] 04/23/2021 Post-traumatic stress disorder BH Establ ished Patient with Kinga Short [facility] 04/23/2021 Morbid obesity Medical Established Patient with Denny Armani [facility] TE[facility]IC[facility] 04/23/2021 Otitis externa Medical Established Patient with Denny Armani [facility] TECHNIC[facility] 04/23/2021 Z68.42 - Body mass index [BM I] 45.0-49.9, adult Medical Established Patient with Denny Armani [employer] TECHNIC[facility] 04/23/2021 Post-traumatic stress disorder BH Establ ished Patient with Kinga Short [facility] 04/01/2021 Morbid obesity Medical Established Patient with Denny Armani [facility] TECHNIC[facility] 04/01/2021 Z68.42 - Body mass index [BM I] 45.0-49.9, adult Medical Established Patient with Denny Armani [facility] TE[facility] 04/01/2021 Post-traumatic stress disorder BH Establ ished Patient with Kinga Short [facility] 03/17/2021 Assessment of visit for: [facility] immunodeficiency virus Medical New Patient with Denny Armani [facility] TECHNICIAN 03/17/2021 Diabetes Risk Test Score was one score 03/17/2021 Medical New Patient with Denny Armani [facility] TECHNIC[facility] 03/17/2021 Hypertension Medical New Patient with Denny Armani [facility] TECHNICIAN 03/17/2021 Morbid obesity Medical New Patient with Denny Armani [facility] TECHNIC[facility] 03/17/2021 Post-traumatic stress disorder Medical N ew Patient with Denny Armani [facility] TECHNICIAN 03/17/2021 Z68.42 - Body mass index [BM I] 45.0-49.9, adult Medical New Patient with Denny Armani [employer] TECHNICIAN 03/17/2021 [facility] Work Phone: 1(203) 769-930108-25-2022 Evaluation note Includes: Assessments for all patient encounters Findings Encounter Date Bipolar affective disorder, current episode manic Telebehavioral Health with Belkis Velarde [facility] 06/16/2022 Bipolar affective disorder, current episode manic Established Patient with Belkisdionna Velarde [facility] 06/15/2022 Bipolar affective disorder, current episode depressed, severe with psychosis Telebehavioral Health with Belkis Velarde [facility] 06/15/2022 Assessment of body mass inde x [Body mass index [BMI] 50.0-59.9, adult] Open Access - Established with Leah Amaya [facility] 06/15/2022 Bipolar I disorder, most rec ent episode, manic Open Access - Established with Leah Monique [facility] TECHNIC[facility] 06/15/2022 Post-traumatic stress disorder Establ ished Patient with Belkis Velarde [facility] 06/08/2022 No cough Medical Established Patient with Denny Lomeli [facility] 06/08/2022 Z68.43 - Body mass index [BM I] 50.0-59.9, adult Medical Established Patient with Dennyartem Lomeli [facility] 06/08/2022 Borderline personality disor kyree Pt reported hx of sx/dx Established Patient with Belkis Velarde [facility] 05/27/2022 Assessment of body mass inde x [Body mass index [BMI] 50.0-59.9, adult] Open Access - Established with Leah Monique [facility] TECHNICIAN 05/27/2022 Diabetes Risk Test Score was three score 05/27/2022 Open Access - Established with Leah Monique [facility] TECHNIC[facility] 05/27/2022 Bipolar I disorder, most rec ent episode, manic Established Patient with Eufemia Mcneil [facility] 07/15/2021 Borderline personality disorder Estab lished Patient with Eufemia Mcneil [facility] 07/15/2021 Post-traumatic stress disorder Establ ished Patient with Eufemia Mcneil [facility] 07/15/2021 Assessment of visit for: lloyd strange for human immunodeficiency virus Medical Established Patient with Denny Armani [facility] TECHNIC[facility] 07/15/2021 Nicotine dependence Medical Established Patient with Denny Armani [facility] TECHNICIAN 07/15/2021 Tachycardia Medical Established Patient with Denny Armani [facility] 07/15/2021 Z68.43 - Body mass index [BM I] 50.0-59.9, adult Medical Established Patient with Denny Armani [employer] TECHNIC[facility] 07/15/2021 Bipolar I disorder, most rec ent episode, manic Established Patient with Kinga Short [facility] 06/17/2021 Borderline personality disor kyree per patient reported history BH Established Patient with Kinga Short [facility] 06/17/2021 Nicotine dependence Established Patie nt with Kinga Short [facility] 06/17/2021 Post-traumatic stress disorder Establ ished Patient with Kinga Short [facility] 06/17/2021 Body mass index Medical Established Patient with Denny Armani [facility] TECHNIC[facility] 06/17/2021 Morbid obesity Medical Established Patient with Denny Armani [facility] TECHNICIAN 06/17/2021 Nicotine dependence uncomplicated Medica l Established Patient with Denny Armani [facility] TECHNIC[facility] 06/17/2021 Z68.42 - Body mass index [BM I] 45.0-49.9, adult Medical Established Patient with Denny Armani [facility] TECHNIC[facility] 06/17/2021 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 disorders 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 [facility] 05/15/2021 Mood disorders, NOS per blaze ent reported history Established Patient with Kinga Short [facility] 04/23/2021 Post-traumatic stress disorder Establ ished Patient with Kinga Short [facility] 04/23/2021 Morbid obesity Medical Established Patient with Denny Armani [facility] TECHNICIAN 04/23/2021 Otitis externa Medical Established Patient with Denny Armani [facility] TECHNICIAN 04/23/2021 Z68.42 - Body mass index [BM I] 45.0-49.9, adult Medical Established Patient with Denny Armani [facility] TECHNICIAN 04/23/2021 Post-traumatic stress disorder Establ ished Patient with Kinga Short [facility] 04/01/2021 Morbid obesity Medical Established Patient with Denny Armani [facility] TECHNICIAN 04/01/2021 Z68.42 - Body mass index [BM I] 45.0-49.9, adult Medical Established Patient with Denny Armani [employer] TECHNICIAN 04/01/2021 Post-traumatic stress disorder Establ ished Patient with Kinga Short [facility] 03/17/2021 Assessment of visit for: lloyd strange for human immunodeficiency virus Medical New Patient with Denny Armani [employer]ACK[facility] TECHNICIAN 03/17/2021 Diabetes Risk Test Score was one score 03/17/2021 Medical New Patient with Denny Armani RACK[facility] TECHNICIAN 03/17/2021 Hypertension Medical New Patient with Denny Armani RACKING TECHNICIAN 03/17/2021 Morbid obesity Medical New Patient with Denny Armani RACKING TECHNICIAN 03/17/2021 Post-traumatic stress disorder Medical N ew Patient with Denny Armani RACKING TECHNICIAN 03/17/2021 Z68.42 - Body mass index [BM I] 45.0-49.9, adult Medical New Patient with Denny Armani RACKING TECHNICIAN 03/17/2021 [facility] Work Phone: 1(782) 974-763108-24-2022 Evaluation note Includes: Assessments for all patient encounters Findings Encounter Date Bipolar affective disorder, current episode depressed, severe with psychosis BH Telebehavioral Health with Belkis Velarde [facility] 06/15/2022 Assessment of body mass inde x [Body mass index [BMI] 50.0-59.9, adult] Open Access - Established with Leah Monique [facility] TE[facility]NIC[facility] 06/15/2022 Post-traumatic stress disorder Establ ished Patient with Belkisdionna Velarde [facility] 06/08/2022 No cough Medical Established Patient with Dennyartem Landonen [facility] 06/08/2022 Z68.43 - Body mass index [BM I] 50.0-59.9, adult Medical Established Patient with Denny Armani [facility] TECHNICIAN 06/08/2022 Borderline personality disor kyree Pt reported hx of sx/dx Established Patient with Belkis Velarde [facility] 05/27/2022 Assessment of body mass inde x [Body mass index [BMI] 50.0-59.9, adult] Open Access - Established with Leah Monique [facility]ACK[facility] TECHNICIAN 05/27/2022 Diabetes Risk Test Score was three score 05/27/2022 Open Access - Established with Leah Monique [facility] 05/27/2022 Bipolar I disorder, most rec ent episode, manic Established Patient with Eufemia Mcneil [facility] 07/15/2021 Borderline personality disorder Estab lished Patient with Eufemia Mcneil [facility] 07/15/2021 Post-traumatic stress disorder Establ ished Patient with Eufemia Mcneil [facility] 07/15/2021 Assessment of visit for: lloyd strange for human immunodeficiency virus Medical Established Patient with Denny Armani [facility] TECHNICIAN 07/15/2021 Nicotine dependence Medical Established Patient with Denny Armani RACK[facility] TECHNICIAN 07/15/2021 Tachycardia Medical Established Patient with Denny Armani RACKING TECHNICIAN 07/15/2021 Z68.43 - Body mass index [BM I] 50.0-59.9, adult Medical Established Patient with Denny Armani [facility] TECHNICIAN 07/15/2021 Bipolar I disorder, most rec ent episode, manic Established Patient with Kinga Short [facility] 06/17/2021 Borderline personality disor kyree per patient reported history Established Patient with Kinga Short [facility] 06/17/2021 Nicotine dependence Established Patie nt with Kinga Short [facility] 06/17/2021 Post-traumatic stress disorder BH Establ ished Patient with Kinga Short [facility] 06/17/2021 Body mass index Medical Established Patient with Denny Armani RACKING TECHNICIAN 06/17/2021 Morbid obesity Medical Established Patient with Denny Armani RACKING TECHNICIAN 06/17/2021 Nicotine dependence uncomplicated Medica l Established Patient with Denny Armani RACKING TECHNICIAN 06/17/2021 Z68.42 - Body mass index [BM I] 45.0-49.9, adult Medical Established Patient with Denny Armani RACKING TECHNICIAN 06/17/2021 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 disorders 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 [facility] 05/15/2021 Mood disorders, NOS per blaze ent reported history BH Established Patient with Kinga Short LISWS 04/23/2021 Post-traumatic stress disorder BH Establ ished Patient with Kinga Short LISWS 04/23/2021 Morbid obesity Medical Established Patient with Denny Armani RACKING TECHNICIAN 04/23/2021 Otitis externa Medical Established Patient with Denny Armani RACKING TECHNICIAN 04/23/2021 Z68.42 - Body mass index [BM I] 45.0-49.9, adult Medical Established Patient with Denny Armani RACKING TECHNICIAN 04/23/2021 Post-traumatic stress disorder BH Establ ished Patient with Kinga Short LISWS 04/01/2021 Morbid obesity Medical Established Patient with Denny Armani RACKING TECHNICIAN 04/01/2021 Z68.42 - Body mass index [BM I] 45.0-49.9, adult Medical Established Patient with Denny Armani RACKING TECHNICIAN 04/01/2021 Post-traumatic stress disorder BH Establ ished Patient with Kinga Short LISWS 03/17/2021 Assessment of visit for: lloyd strange for human immunodeficiency virus Medical New Patient with Denny Armani RACKING TECHNICIAN 03/17/2021 Diabetes Risk Test Score was one score 03/17/2021 Medical New Patient with Denny Armani RACKING TECHNICIAN 03/17/2021 Hypertension Medical New Patient with Denny Armani RACKING TECHNICIAN 03/17/2021 Morbid obesity Medical New Patient with Denny Armani RACKING TECHNICIAN 03/17/2021 Post-traumatic stress disorder Medical N ew Patient with Denny Armani RACKING TECHNICIAN 03/17/2021 Z68.42 - Body mass index [BM I] 45.0-49.9, adult Medical New Patient with Denny Armani RACKING TECHNICIAN 03/17/2021 [facility] Work Phone: 1(281) 940-882508-24-2022 Evaluation note Includes: Assessments for all patient encounters Findings Encounter Date Bipolar affective disorder, current episode depressed, severe with psychosis Telebehavioral Health with Belkisdionna Velarde [facility] 06/15/2022 Assessment of body mass inde x [Body mass index [BMI] 50.0-59.9, adult] Open Access - Established with Leah Monique RACKING TECHNICIAN 06/15/2022 Bipolar I disorder, most rec ent episode, manic Open Access - Established with Leah Monique RACKING TECHNICIAN 06/15/2022 Post-traumatic stress disorder Establ ished Patient with Bel[facility]isdionna Velarde [facility] 06/08/2022 No cough Medical Established Patient with Denny Armani RACKING TECHNICIAN 06/08/2022 Z68.43 - Body mass index [BM I] 50.0-59.9, adult Medical Established Patient with Dennyartem Lomeli RACKING TECHNICIAN 06/08/2022 Borderline personality disor kyree Pt reported hx of sx/dx Established Patient with Belkisdionna Velarde [facility] 05/27/2022 Assessment of body mass inde x [Body mass index [BMI] 50.0-59.9, adult] Open Access - Established with Leah Monique RACKING TECHNICIAN 05/27/2022 Diabetes Risk Test Score was three score 05/27/2022 Open Access - Established with Leah Monique RACKING TECHNICIAN 05/27/2022 Bipolar I disorder, most rec ent episode, manic Established Patient with Eufemia Mcneil [facility] 07/15/2021 Borderline personality disorder Estab lished Patient with Eufemia Mcneil [facility] 07/15/2021 Post-traumatic stress disorder Establ ished Patient with Eufemia Mcneil [facility] 07/15/2021 Assessment of visit for: lloyd strange for human immunodeficiency virus Medical Established Patient with Denny Armani RACKING TECHNICIAN 07/15/2021 Nicotine dependence Medical Established Patient with Denny Armani RACKING TECHNICIAN 07/15/2021 Tachycardia Medical Established Patient with Denny Armani RACKING TECHNICIAN 07/15/2021 Z68.43 - Body mass index [BM I] 50.0-59.9, adult Medical Established Patient with Denny Armani RACKING TECHNICIAN 07/15/2021 Bipolar I disorder, most rec ent episode, manic BH Established Patient with Kinga Short LISWS 06/17/2021 Borderline personality disor kyree per patient reported history BH Established Patient with Kinga Short LISWS 06/17/2021 Nicotine dependence BH Established Patie nt with Kinga Short LISWS 06/17/2021 Post-traumatic stress disorder BH Establ ished Patient with Kinga Short LISWS 06/17/2021 Body mass index Medical Established Patient with Denny Armani RACKING TECHNICIAN 06/17/2021 Morbid obesity Medical Established Patient with Denny Armani RACKING TECHNICIAN 06/17/2021 Nicotine dependence uncomplicated Medica l Established Patient with Denny Armani RACKING TECHNICIAN 06/17/2021 Z68.42 - Body mass index [BM I] 45.0-49.9, adult Medical Established Patient with Denny Armani RACKING TECHNICIAN 06/17/2021 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 disorders 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 [facility] 05/15/2021 Mood disorders, NOS per blaze ent reported history BH Established Patient with Kinga Short LISWS 04/23/2021 Post-traumatic stress disorder BH Establ ished Patient with Kinga Short LISWS 04/23/2021 Morbid obesity Medical Established Patient with Denny Armani RACKING TECHNICIAN 04/23/2021 Otitis externa Medical Established Patient with Denny Armani RACKING TECHNICIAN 04/23/2021 Z68.42 - Body mass index [BM I] 45.0-49.9, adult Medical Established Patient with Denny Armani RACKING TECHNICIAN 04/23/2021 Post-traumatic stress disorder BH Establ ished Patient with Kinga Short LISWS 04/01/2021 Morbid obesity Medical Established Patient with Denny Armani RACKING TECHNICIAN 04/01/2021 Z68.42 - Body mass index [BM I] 45.0-49.9, adult Medical Established Patient with Denny Armani RACKING TECHNICIAN 04/01/2021 Post-traumatic stress disorder BH Establ ished Patient with Kinga Short LISWS 03/17/2021 Assessment of visit for: lloyd strange for human immunodeficiency virus Medical New Patient with Denny Armani RACKING TECHNICIAN 03/17/2021 Diabetes Risk Test Score was one score 03/17/2021 Medical New Patient with Denny Armani RACKING TECHNICIAN 03/17/2021 Hypertension Medical New Patient with Denny Armani RACKING TECHNICIAN 03/17/2021 Morbid obesity Medical New Patient with Denny Armani RACKING TECHNICIAN 03/17/2021 Post-traumatic stress disorder Medical N ew Patient with Denny Lomeli RACKING TECHNICIAN 03/17/2021 Z68.42 - Body mass index [BM I] 45.0-49.9, adult Medical New Patient with Denny Lomeli RACKING TECHNICIAN 03/17/2021 [facility] Work Phone: 1([phone]) [phone] Evaluation note Includes: Assessments for all patient encounters Findings Encounter Date Bipolar affective disorder, current episode manic Established Patient with Belkisdionna Velarde [facility] 06/15/2022 Bipolar affective disorder, current episode depressed, severe with psychosis Telebehavioral Health with Belkisdionna Velarde [facility] 06/15/2022 Assessment of body mass inde x [Body mass index [BMI] 50.0-59.9, adult] Open Access - Established with Leah Monique RACKING TECHNICIAN 06/15/2022 Bipolar I disorder, most rec ent episode, manic Open Access - Established with Leah Monique RACKING TECHNICIAN 06/15/2022 Post-traumatic stress disorder Establ ished Patient with Belkisdionna Velarde [facility] 06/08/2022 No cough Medical Established Patient with Dennyartem Lomeli [facility] 06/08/2022 Z68.43 - Body mass index [BM I] 50.0-59.9, adult Medical Established Patient with Dennyartem Lomeli RACKING TECHNICIAN 06/08/2022 Borderline personality disor kyree Pt reported hx of sx/dx Established Patient with Belkisdionna Velarde [facility] 05/27/2022 Assessment of body mass inde x [Body mass index [BMI] 50.0-59.9, adult] Open Access - Established with Leah Monique RACKING TECHNICIAN 05/27/2022 Diabetes Risk Test Score was three score 05/27/2022 Open Access - Established with Leah Monique RACKING TECHNICIAN 05/27/2022 Bipolar I disorder, most rec ent episode, manic Established Patient with Eufemiahola Brashers [facility] 07/15/2021 Borderline personality disorder Estab lished Patient with Eufemia Mcneil [facility] 07/15/2021 Post-traumatic stress disorder Establ ished Patient with Eufemia Mcneil [facility] 07/15/2021 Assessment of visit for: lloyd strange for human immunodeficiency virus Medical Established Patient with Dennyartem Landonen RACKING TECHNICIAN 07/15/2021 Nicotine dependence Medical Established Patient with Denny Armani RACKING TECHNICIAN 07/15/2021 Tachycardia Medical Established Patient with Denny Armani RACKING TECHNICIAN 07/15/2021 Z68.43 - Body mass index [BM I] 50.0-59.9, adult Medical Established Patient with Denny Armani RACKING TECHNICIAN 07/15/2021 Bipolar I disorder, most rec ent episode, manic Established Patient with Kinga Short LISWS 06/17/2021 Borderline personality disor kyree per patient reported history Established Patient with Kinga Short LISWS 06/17/2021 Nicotine dependence BH Established Patie nt with Kinga Short LISWS 06/17/2021 Post-traumatic stress disorder Establ ished Patient with Kinga Short LISWS 06/17/2021 Body mass index Medical Established Patient with Denny Armani RACKING TECHNICIAN 06/17/2021 Morbid obesity Medical Established Patient with Denny Armani RACKING TECHNICIAN 06/17/2021 Nicotine dependence uncomplicated Medica l Established Patient with Denny Armani RACKING TECHNICIAN 06/17/2021 Z68.42 - Body mass index [BM I] 45.0-49.9, adult Medical Established Patient with Denny Armani RACKING TECHNICIAN 06/17/2021 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 disorders 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 [facility] 05/15/2021 Mood disorders, NOS per blaze ent reported history Established Patient with Kinga Short LISWS 04/23/2021 Post-traumatic stress disorder Establ ished Patient with Kinga Short LISWS 04/23/2021 Morbid obesity Medical Established Patient with Denny Armani RACKING TECHNICIAN 04/23/2021 Otitis externa Medical Established Patient with Denny Armani RACKING TECHNICIAN 04/23/2021 Z68.42 - Body mass index [BM I] 45.0-49.9, adult Medical Established Patient with Denny Armani RACKING TECHNICIAN 04/23/2021 Post-traumatic stress disorder BH Establ ished Patient with Kinga Short LISWS 04/01/2021 Morbid obesity Medical Established Patient with Denny Armani RACKING TECHNICIAN 04/01/2021 Z68.42 - Body mass index [BM I] 45.0-49.9, adult Medical Established Patient with Denny Armani RACKING TECHNICIAN 04/01/2021 Post-traumatic stress disorder Establ ished Patient with Kinga Short LISWS 03/17/2021 Assessment of visit for: scr eening for human immunodeficiency virus Medical New Patient with Dennyartem Lomeli RACKING TECHNICIAN 03/17/2021 Diabetes Risk Test Score was one score 03/17/2021 Medical New Patient with Denny Armani RACKING TECHNICIAN 03/17/2021 Hypertension Medical New Patient with Denny Armani RACKING TECHNICIAN 03/17/2021 Morbid obesity Medical New Patient with Dennyartem Lomeli RACKING TECHNICIAN 03/17/2021 Post-traumatic stress disorder Medical N ew Patient with Denny Armani RACKING TECHNICIAN 03/17/2021 Z68.42 - Body mass index [BM I] 45.0-49.9, adult Medical New Patient with Dennyartem Lomeli RACKING TECHNICIAN 03/17/2021 [facility] Work Phone: 1([phone]) 615-719108-17-2022 Evaluation note Includes: Assessments for all patient encounters Findings Encounter Date Post-traumatic stress disorder Establ ished Patient with Belkisdionna CoffeyVelarde LPCC-S 06/08/2022 No cough Medical Established Patient with Denny Armani RACKING TECHNICIAN 06/08/2022 Z68.43 - Body mass index [BM I] 50.0-59.9, adult Medical Established Patient with Dennyartem Landonen RACKING TECHNICIAN 06/08/2022 Borderline personality disor kyree Pt reported hx of sx/dx Established Patient with Belkisdionna Velarde [facility] 05/27/2022 Assessment of body mass inde x [Body mass index [BMI] 50.0-59.9, adult] Open Access - Established with Leah Amaya [facility] 05/27/2022 Diabetes Risk Test Score was three score 05/27/2022 Open Access - Established with Leah Monique RACKING TECHNICIAN 05/27/2022 Bipolar I disorder, most rec ent episode, manic Established Patient with Eufemia Mcneil [facility] 07/15/2021 Borderline personality disorder Estab lished Patient with Eufemia Mcneil [facility] 07/15/2021 Post-traumatic stress disorder Establ ished Patient with Eufemia Mcneil [facility] 07/15/2021 Assessment of visit for: scr eening for human immunodeficiency virus Medical Established Patient with Denny Armani RACKING TECHNICIAN 07/15/2021 Nicotine dependence Medical Established Patient with Denny Armani RACKING TECHNICIAN 07/15/2021 Tachycardia Medical Established Patient with Denny Armani RACKING TECHNICIAN 07/15/2021 Z68.43 - Body mass index [BM I] 50.0-59.9, adult Medical Established Patient with Denny Armani RACKING TECHNICIAN 07/15/2021 Bipolar I disorder, most rec ent episode, manic Established Patient with Kinga Short LISWS 06/17/2021 Borderline personality disor kyree per patient reported history BH Established Patient with Kinga Short LISWS 06/17/2021 Nicotine dependence BH Established Patie nt with Kinga Short LISWS 06/17/2021 Post-traumatic stress disorder Establ ished Patient with Kinga Short LISWS 06/17/2021 Body mass index Medical Established Patient with Denny Armani RACKING TECHNICIAN 06/17/2021 Morbid obesity Medical Established Patient with Denny Armani RACKING TECHNICIAN 06/17/2021 Nicotine dependence uncomplicated Medica l Established Patient with Denny Armani RACKING TECHNICIAN 06/17/2021 Z68.42 - Body mass index [BM I] 45.0-49.9, adult Medical Established Patient with Denny Lomeli RACKING TECHNICIAN 06/17/2021 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 disorders 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 [facility] 05/15/2021 Mood disorders, NOS per blaze ent reported history Established Patient with Kinga Short LISWS 04/23/2021 Post-traumatic stress disorder Establ ished Patient with Kinga Short LISWS 04/23/2021 Morbid obesity Medical Established Patient with Denny Armani RACKING TECHNICIAN 04/23/2021 Otitis externa Medical Established Patient with Denny Lomeli RACKING TECHNICIAN 04/23/2021 Z68.42 - Body mass index [BM I] 45.0-49.9, adult Medical Established Patient with Denny Armani RACKING TECHNICIAN 04/23/2021 Post-traumatic stress disorder Establ ished Patient with Kinga Short LISWS 04/01/2021 Morbid obesity Medical Established Patient with Denny Armani RACKING TECHNICIAN 04/01/2021 Z68.42 - Body mass index [BM I] 45.0-49.9, adult Medical Established Patient with Denny Armani RACKING TECHNICIAN 04/01/2021 Post-traumatic stress disorder BH Establ ished Patient with Kinga Short LISWS 03/17/2021 Assessment of visit for: lloyd strange for human immunodeficiency virus Medical New Patient with Denny Lomeli RACKING TECHNICIAN 03/17/2021 Diabetes Risk Test Score was one score 03/17/2021 Medical New Patient with Denny Lomeli RACKING TECHNICIAN 03/17/2021 Hypertension Medical New Patient with Denny Lomeli RACKING TECHNICIAN 03/17/2021 Morbid obesity Medical New Patient with Denny Lomeli RACKING TECHNICIAN 03/17/2021 Post-traumatic stress disorder Medical N ew Patient with Denny Lomeli RACKING TECHNICIAN 03/17/2021 Z68.42 - Body mass index [BM I] 45.0-49.9, adult Medical New Patient with Denny Lomeli RACKING TECHNICIAN 03/17/2021 [facility] Work Phone: 1(875) 261-650408-17-2022 History general Narrative - Reported Includes: Medical History in patient's chart Description Last Updated Has sex without a condom 06/08/2022 Not planning to have a baby in the next 12 months 06/08/2022 Partners sexually transmitted infection status known 06/08/2022 Previously 0 time(s) 06/08/2022 No previous hospitalizations 06/08/2022 Chronic illness 05/17/2021 Exposure to COVID-19 04/23/2021 History of gynecologic disorder 03/17/20 21 History of Polycystic Ovarian Syndrome ( PCOS) 03/17/2021 History of anxiety disorder NOS 03/17/20 21 History of migraine headache 03/17/2021 History of psychiatric disorders biopola r disorder 03/17/2021 [facility] Work Phone: 1([phone]) [phone] Evaluation note Includes: Assessments for all patient encounters Findings Encounter Date Borderline personality disor kyree Pt reported hx of sx/dx Established Patient with Belkis Syd [facility] 05/27/2022 Assessment of body mass inde x [Body mass index [BMI] 50.0-59.9, adult] Open Access - Established with Leah Amaya CNP 05/27/2022 Diabetes Risk Test Score was three score 05/27/2022 Open Access - Established with Leah Amaya RACKING TECHNICIAN 05/27/2022 Bipolar I disorder, most rec ent episode, manic Established Patient with Eufemiahola Brashers [facility]S 07/15/2021 Borderline personality disorder Estab lished Patient with Eufemia Mcneil [facility]CC-S 07/15/2021 Post-traumatic stress disorder Establ ished Patient with Eufemia Mcneil [facility] 07/15/2021 Assessment of visit for: lloyd strange for human immunodeficiency virus Medical Established Patient with Denny Armani RACKING TECHNICIAN 07/15/2021 Nicotine dependence Medical Established Patient with Denny Armani RACKING TECHNICIAN 07/15/2021 Tachycardia Medical Established Patient with Denny Armani RACKING TECHNICIAN 07/15/2021 Z68.43 - Body mass index [BM I] 50.0-59.9, adult Medical Established Patient with Denny Armani RACKING TECHNICIAN 07/15/2021 Bipolar I disorder, most rec ent episode, manic Established Patient with Kinga Short LISWS 06/17/2021 Borderline personality disor kyree per patient reported history Established Patient with Kinga Short LISWS 06/17/2021 Nicotine dependence Established Patie nt with Kinga Short LISWS 06/17/2021 Post-traumatic stress disorder Establ ished Patient with Kinga Short LISWS 06/17/2021 Body mass index Medical Established Patient with Denny Armani RACKING TECHNICIAN 06/17/2021 Morbid obesity Medical Established Patient with Denny Armani RACKING TECHNICIAN 06/17/2021 Nicotine dependence uncomplicated Medica l Established Patient with Denny Armani RACKING TECHNICIAN 06/17/2021 Z68.42 - Body mass index [BM I] 45.0-49.9, adult Medical Established Patient with Denny Armani RACKING TECHNICIAN 06/17/2021 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 disorders 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 [facility] 05/15/2021 Mood disorders, NOS per blaze ent reported history Established Patient with Kinga Short LISWS 04/23/2021 Post-traumatic stress disorder Establ ished Patient with Kinga Short LISWS 04/23/2021 Morbid obesity Medical Established Patient with Denny Armani RACKING TECHNICIAN 04/23/2021 Otitis externa Medical Established Patient with Denny Armani RACKING TECHNICIAN 04/23/2021 Z68.42 - Body mass index [BM I] 45.0-49.9, adult Medical Established Patient with Denny Armani RACKING TECHNICIAN 04/23/2021 Post-traumatic stress disorder BH Establ ished Patient with Kinga Short LISWS 04/01/2021 Morbid obesity Medical Established Patient with Denny Armani RACKING TECHNICIAN 04/01/2021 Z68.42 - Body mass index [BM I] 45.0-49.9, adult Medical Established Patient with Denny Armani RACKING TECHNICIAN 04/01/2021 Post-traumatic stress disorder BH Establ ished Patient with Kinga Short LISWS 03/17/2021 Assessment of visit for: lloyd strange for human immunodeficiency virus Medical New Patient with Denny Lomeli RACKING TECHNICIAN 03/17/2021 Diabetes Risk Test Score was one score 03/17/2021 Medical New Patient with Denny Lomeli RACKING TECHNICIAN 03/17/2021 Hypertension Medical New Patient with Denny Lomeli RACKING TECHNICIAN 03/17/2021 Morbid obesity Medical New Patient with Denny Lomeli SCOTT 03/17/2021 Post-traumatic stress disorder Medical N ew Patient with Denny Lomeli RACKING TECHNICIAN 03/17/2021 Z68.42 - Body mass index [BM I] 45.0-49.9, adult Medical New Patient with Denny Lomeli RACKING TECHNICIAN 03/17/2021 [facility] Work Phone: 1([phone]) 325-662708-05-2022 Reason for referral (narrative)* Date Encounter Description Provider Reason for Referral 05/27/22 Established Patient Belkis Velarde LP CC-S Referral To Mental Health Team 03/17/21 Medical New Patient Denny Lomeli CNP Refe rral To Mental Health Team [facility] Work Phone: 1(315) 350-516810-04-2021 History of Present illness Narrative* Jazmine Dodge - 07/26/2021 1:30 PM EDT Explained Holter monitor and diary. [facility]: 1(314) 373-411409-23-2021 Evaluation note Includes: Assessments for all patient encounters Findings Encounter Date Bipolar I disorder, most rec ent episode, manic Established Patient with Eufemia Mcneil LPCC-S 07/15/2021 Borderline personality disorder Estab lished Patient with Eufemia Mcneil LPCC-S 07/15/2021 Assessment of visit for: lloyd strange for human immunodeficiency virus Medical Established Patient with Denny Landonkacie CHAVEZ 07/15/2021 Nicotine dependence Medical Established Patient with Dennyartem Lomeli CNP 07/15/2021 Tachycardia Medical Established Patient with Denny Armani CHAVEZ 07/15/2021 Z68.43 - Body mass index [BM I] 50.0-59.9, adult Medical Established Patient with Denny Lomeli RACKING TECHNICIAN 07/15/2021 Bipolar I disorder, most rec ent episode, manic Established Patient with Kinga Short LISWS 06/17/2021 Borderline personality disor kyree per patient reported history BH Established Patient with Kinga Short LISWS 06/17/2021 Nicotine dependence BH Established Patie nt with Kinga Short LISWS 06/17/2021 Post-traumatic stress disorder Establ ished Patient with Kinga Short LISWS 06/17/2021 Body mass index Medical Established Patient with Denny Landonen RACKING TECHNICIAN 06/17/2021 Morbid obesity Medical Established Patient with Denny Armani RACKING TECHNICIAN 06/17/2021 Nicotine dependence uncomplicated Medica l Established Patient with Denny Armani RACKING TECHNICIAN 06/17/2021 Z68.42 - Body mass index [BM I] 45.0-49.9, adult Medical Established Patient with Denny Lomeli [facility] 06/17/2021 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 disorders 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 [facility] 05/15/2021 Mood disorders, NOS per blaze ent reported history Established Patient with Kinga Short LISWS 04/23/2021 Post-traumatic stress disorder Establ ished Patient with Kinga Short LISWS 04/23/2021 Morbid obesity Medical Established Patient with Denny Armani RACKING TECHNICIAN 04/23/2021 Otitis externa Medical Established Patient with Dennyartem Lomeli RACKING TECHNICIAN 04/23/2021 Z68.42 - Body mass index [BM I] 45.0-49.9, adult Medical Established Patient with Denny Armani RACKING TECHNICIAN 04/23/2021 Post-traumatic stress disorder Establ ished Patient with Kinga Short LISWS 04/01/2021 Morbid obesity Medical Established Patient with Denny Armani RACKING TECHNICIAN 04/01/2021 Z68.42 - Body mass index [BM I] 45.0-49.9, adult Medical Established Patient with Denny Armani RACKING TECHNICIAN 04/01/2021 Post-traumatic stress disorder BH Establ ished Patient with Kinga Short LISWS 03/17/2021 Assessment of visit for: lloyd strange for human immunodeficiency virus Medical New Patient with Denny Lomeli RACKING TECHNICIAN 03/17/2021 Diabetes Risk Test Score was one score 03/17/2021 Medical New Patient with Denny Armani RACKING TECHNICIAN 03/17/2021 Hypertension Medical New Patient with Denny Armani RACKING TECHNICIAN 03/17/2021 Morbid obesity Medical New Patient with Denny Armani RACKING TECHNICIAN 03/17/2021 Post-traumatic stress disorder Medical N ew Patient with Denny Armani RACKING TECHNICIAN 03/17/2021 Z68.42 - Body mass index [BM I] 45.0-49.9, adult Medical New Patient with Denny Armani RACKING TECHNICIAN 03/17/2021 [facility] Work Phone: 1(717) 135-457309-23-2021 Evaluation note Includes: Assessments for all patient encounters Findings Encounter Date Bipolar I disorder, most rec ent episode, manic BH Established Patient with Eufemia Mcneil LPCC-S 07/15/2021 Borderline personality disorder BH Estab lished Patient with Eufemia Mcneil LPCC-S 07/15/2021 Post-traumatic stress disorder BH Establ ished Patient with Eufemia Mcneil LPCC-S 07/15/2021 Assessment of visit for: lloyd strange for human immunodeficiency virus Medical Established Patient with Denny Armani RACKING TECHNICIAN 07/15/2021 Nicotine dependence Medical Established Patient with Denny Armani RACKING TECHNICIAN 07/15/2021 Tachycardia Medical Established Patient with Denny Armani RACKING TECHNICIAN 07/15/2021 Z68.43 - Body mass index [BM I] 50.0-59.9, adult Medical Established Patient with Denny Armani RACKING TECHNICIAN 07/15/2021 Bipolar I disorder, most rec ent episode, manic Established Patient with Kinga Short LISWS 06/17/2021 Borderline personality disor kyree per patient reported history BH Established Patient with Kinga Short LISWS 06/17/2021 Nicotine dependence Established Patie nt with Kinga Short LISWS 06/17/2021 Post-traumatic stress disorder BH Establ ished Patient with Kinga Short LISWS 06/17/2021 Body mass index Medical Established Patient with Denny Armani RACKING TECHNICIAN 06/17/2021 Morbid obesity Medical Established Patient with Denny Armani RACKING TECHNICIAN 06/17/2021 Nicotine dependence uncomplicated Medica l Established Patient with Denny Armani RACKING TECHNICIAN 06/17/2021 Z68.42 - Body mass index [BM I] 45.0-49.9, adult Medical Established Patient with Denny Armani RACKING TECHNICIAN 06/17/2021 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 disorders 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 [facility] 05/15/2021 Mood disorders, NOS per blaze ent reported history Established Patient with Kinga Short LISWS 04/23/2021 Post-traumatic stress disorder Establ ished Patient with Kinga Short LISWS 04/23/2021 Morbid obesity Medical Established Patient with Denny Armani RACKING TECHNICIAN 04/23/2021 Otitis externa Medical Established Patient with Denny Armani RACKING TECHNICIAN 04/23/2021 Z68.42 - Body mass index [BM I] 45.0-49.9, adult Medical Established Patient with Denny Armani RACKING TECHNICIAN 04/23/2021 Post-traumatic stress disorder BH Establ ished Patient with Kinga Short LISWS 04/01/2021 Morbid obesity Medical Established Patient with Denny Armani RACKING TECHNICIAN 04/01/2021 Z68.42 - Body mass index [BM I] 45.0-49.9, adult Medical Established Patient with Denny Armani RACKING TECHNICIAN 04/01/2021 Post-traumatic stress disorder Establ ished Patient with Kinga Short LISWS 03/17/2021 Assessment of visit for: lloyd strange for human immunodeficiency virus Medical New Patient with Denny Armani RACKING TECHNICIAN 03/17/2021 Diabetes Risk Test Score was one score 03/17/2021 Medical New Patient with Denny Armani RACKING TECHNICIAN 03/17/2021 Hypertension Medical New Patient with Denny Armani RACKING TECHNICIAN 03/17/2021 Morbid obesity Medical New Patient with Denny Armani RACKING TECHNICIAN 03/17/2021 Post-traumatic stress disorder Medical N ew Patient with Denny Armani RACKING TECHNICIAN 03/17/2021 Z68.42 - Body mass index [BM I] 45.0-49.9, adult Medical New Patient with Denny Armani RACKING TECHNICIAN 03/17/2021 [facility] Work Phone: 1(623) 577-499708-26-2021 Evaluation note Includes: Assessments for all patient encounters Findings Encounter Date Bipolar I disorder, most rec ent episode, manic Established Patient with Kinga Short LISWS 06/17/2021 Borderline personality disor kyree per patient reported history Established Patient with Kinga Short LISWS 06/17/2021 Nicotine dependence Established Patie nt with Kinga Short LISWS 06/17/2021 Post-traumatic stress disorder BH Establ ished Patient with Kinga Short LISWS 06/17/2021 Body mass index Medical Established Patient with Denny Armani RACKING TECHNICIAN 06/17/2021 Morbid obesity Medical Established Patient with Denny Armani RACKING TECHNICIAN 06/17/2021 Nicotine dependence uncomplicated Medica l Established Patient with Denny Armani RACKING TECHNICIAN 06/17/2021 Z68.42 - Body mass index [BM I] 45.0-49.9, adult Medical Established Patient with Denny Armani RACKING TECHNICIAN 06/17/2021 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 disorders 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 [facility] 05/15/2021 Mood disorders, NOS per blaze ent reported history BH Established Patient with Kinga Short LISWS 04/23/2021 Post-traumatic stress disorder BH Establ ished Patient with Kinga Short LISWS 04/23/2021 Morbid obesity Medical Established Patient with Denny Armani RACKING TECHNICIAN 04/23/2021 Otitis externa Medical Established Patient with Denny Armani RACKING TECHNICIAN 04/23/2021 Z68.42 - Body mass index [BM I] 45.0-49.9, adult Medical Established Patient with Denny Armani RACKING TECHNICIAN 04/23/2021 Post-traumatic stress disorder BH Establ ished Patient with Kinga Short LISWS 04/01/2021 Morbid obesity Medical Established Patient with Denny Armani RACKING TECHNICIAN 04/01/2021 Z68.42 - Body mass index [BM I] 45.0-49.9, adult Medical Established Patient with Denny Armani RACKING TECHNICIAN 04/01/2021 Post-traumatic stress disorder BH Establ ished Patient with Kinga Short LISWS 03/17/2021 Assessment of visit for: lloyd strange for human immunodeficiency virus Medical New Patient with Denny Armani RACKING TECHNICIAN 03/17/2021 Diabetes Risk Test Score was one score 03/17/2021 Medical New Patient with Denny Armani RACKING TECHNICIAN 03/17/2021 Hypertension Medical New Patient with Denny Armani RACKING TECHNICIAN 03/17/2021 Morbid obesity Medical New Patient with Denny Armani RACKING TECHNICIAN 03/17/2021 Post-traumatic stress disorder Medical N ew Patient with Denny Armani RACKING TECHNICIAN 03/17/2021 Z68.42 - Body mass index [BM I] 45.0-49.9, adult Medical New Patient with Denny Armani RACKING TECHNICIAN 03/17/2021 [facility] Work Phone: 1(261) 793-369207-26-2021 History general Narrative - Reported Includes: Medical History in patient's chart Description Last Updated Chronic illness 05/17/2021 Exposure to COVID-19 04/23/2021 Previous hospitalizations 04/23/2021 History of gynecologic disorder 03/17/20 21 History of Polycystic Ovarian Syndrome ( PCOS) 03/17/2021 History of anxiety disorder NOS 03/17/20 21 History of migraine headache 03/17/2021 History of psychiatric disorders biopola r disorder 03/17/2021 [facility] Work Phone: 1(653) 257-330107-24-2021 Evaluation note Includes: Assessments for all patient encounters Findings Encounter Date 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 disorders 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 CNP 05/15/2021 Mood disorders, NOS per blaze ent reported history Established Patient with Kinga Short LISWS 04/23/2021 Post-traumatic stress disorder Establ ished Patient with Kinga Short LISWS 04/23/2021 Morbid obesity Medical Established Patient with Denny Armani RACKING TECHNICIAN 04/23/2021 Otitis externa Medical Established Patient with Denny Armani RACKING TECHNICIAN 04/23/2021 Z68.42 - Body mass index [BM I] 45.0-49.9, adult Medical Established Patient with Denny Armani RACKING TECHNICIAN 04/23/2021 Post-traumatic stress disorder Establ ished Patient with Kinga Short LISWS 04/01/2021 Morbid obesity Medical Established Patient with Denny Armani RACKING TECHNICIAN 04/01/2021 Z68.42 - Body mass index [BM I] 45.0-49.9, adult Medical Established Patient with Denny Armani RACKING TECHNICIAN 04/01/2021 Post-traumatic stress disorder Establ ished Patient with Kinga Short LISWS 03/17/2021 Assessment of visit for: lloyd strange for human immunodeficiency virus Medical New Patient with Denny Armani RACKING TECHNICIAN 03/17/2021 Diabetes Risk Test Score was one score 03/17/2021 Medical New Patient with Denny Armani RACKING TECHNICIAN 03/17/2021 Hypertension Medical New Patient with Ednny Armani RACKING TECHNICIAN 03/17/2021 Morbid obesity Medical New Patient with Denny Armani RACKING TECHNICIAN 03/17/2021 Post-traumatic stress disorder Medical N ew Patient with Dennyartem Lomeli RACKING TECHNICIAN 03/17/2021 Z68.42 - Body mass index [BM I] 45.0-49.9, adult Medical New Patient with Dennyartem Lomeli RACKING TECHNICIAN 03/17/2021 [facility] Work Phone: 1(632) 594-374807-02-2021 Evaluation note Includes: Assessments for all patient encounters Findings Encounter Date Mood disorders, NOS per blaze ent reported history BH Established Patient with Kinga Short LISWS 04/23/2021 Post-traumatic stress disorder BH Establ ished Patient with Kinga Short LISWS 04/23/2021 Morbid obesity Medical Established Patient with Denny Armani RACKING TECHNICIAN 04/23/2021 Otitis externa Medical Established Patient with Denny Armani RACKING TECHNICIAN 04/23/2021 Z68.42 - Body mass index [BM I] 45.0-49.9, adult Medical Established Patient with Denny Armani RACKING TECHNICIAN 04/23/2021 Post-traumatic stress disorder BH Establ ished Patient with Kinga Short LISWS 04/01/2021 Morbid obesity Medical Established Patient with Denny Armani RACKING TECHNICIAN 04/01/2021 Z68.42 - Body mass index [BM I] 45.0-49.9, adult Medical Established Patient with Denny Armani RACKING TECHNICIAN 04/01/2021 Post-traumatic stress disorder BH Establ ished Patient with Kinga Short LISWS 03/17/2021 Assessment of visit for: lloyd strange for human immunodeficiency virus Medical New Patient with Dennyartem Lomeli RACKING TECHNICIAN 03/17/2021 Diabetes Risk Test Score was one score 03/17/2021 Medical New Patient with Denny Armani RACKING TECHNICIAN 03/17/2021 Hypertension Medical New Patient with Denny Armani RACKING TECHNICIAN 03/17/2021 Morbid obesity Medical New Patient with Denny Armani RACKING TECHNICIAN 03/17/2021 Post-traumatic stress disorder Medical N ew Patient with Dennyartem Lomeli RACKING TECHNICIAN 03/17/2021 Z68.42 - Body mass index [BM I] 45.0-49.9, adult Medical New Patient with Dennyartem Lomeli RACKING TECHNICIAN 03/17/2021 [facility] Work Phone: 1(459) 642-385307-02-2021 History general Narrative - Reported Includes: Medical History in patient's chart Description Last Updated Exposure to COVID-19 04/23/2021 Previous hospitalizations 04/23/2021 History of gynecologic disorder 03/17/20 21 History of Polycystic Ovarian Syndrome ( PCOS) 03/17/2021 History of anxiety disorder NOS 03/17/20 21 History of migraine headache 03/17/2021 History of psychiatric disorders biopola r disorder 03/17/2021 [facility] Work Phone: 1(767) 675-441707-02-2021 History general Narrative - Reported Includes: Medical History in patient's chart Description Last Updated Chronic illness 05/17/2021 Exposure to COVID-19 04/23/2021 Previous hospitalizations 04/23/2021 History of gynecologic disorder 03/17/20 21 History of Polycystic Ovarian Syndrome ( PCOS) 03/17/2021 History of anxiety disorder NOS 03/17/20 21 History of migraine headache 03/17/2021 History of psychiatric disorders biopola r disorder 03/17/2021 [facility] Work Phone: 1(912) 716-472906-10-2021 Evaluation note Includes: Assessments for all patient encounters Findings Encounter Date Morbid obesity Medical Established Patient with Denny Armani RACKING TECHNICIAN 04/01/2021 Z68.42 - Body mass index [BM I] 45.0-49.9, adult Medical Established Patient with Denny Armani RACKING TECHNICIAN 04/01/2021 Post-traumatic stress disorder Tuan rabago Patient with Kinga Short LISWS 03/17/2021 Assessment of visit for: lloyd mcgillning for human immunodeficiency virus Medical New Patient with Denny Armani RACKING TECHNICIAN 03/17/2021 Diabetes Risk Test Score was one score 03/17/2021 Medical New Patient with Denny Armani RACKING TECHNICIAN 03/17/2021 Hypertension Medical New Patient with Denny Armani RACKING TECHNICIAN 03/17/2021 Morbid obesity Medical New Patient with Denny Armani RACKING TECHNICIAN 03/17/2021 Post-traumatic stress disorder Medical N ew Patient with Denny Armani RACKING TECHNICIAN 03/17/2021 Z68.42 - Body mass index [BM I] 45.0-49.9, adult Medical New Patient with Denny Armani RACKING TECHNICIAN 03/17/2021 [facility] Work Phone: 1(702) [phone] Evaluation note Includes: Assessments for all patient encounters Findings Encounter Date Post-traumatic stress disorder Tuan rabago Patient with Kinga Short LISWS 03/17/2021 Assessment of visit for: lloyd strange for human immunodeficiency virus Medical New Patient with Denny Lomeli CNP 03/17/2021 Diabetes Risk Test Score was one score 03/17/2021 Medical New Patient with Denny Lomeli CNP 03/17/2021 Hypertension Medical New Patient with Denny Lomeli CNP 03/17/2021 Morbid obesity Medical New Patient with Denny Lomeli CNP 03/17/2021 Post-traumatic stress disorder Medical N ew Patient with Denny Lomeli CNP 03/17/2021 Z68.42 - Body mass index [BM I] 45.0-49.9, adult Medical New Patient with Denny Lomeli CNP 03/17/2021 [facility] Work Phone: 1([phone]) [phone] History general Narrative - Reported Includes: Medical History in patient's chart Description Last Updated History of gynecologic disorder 03/17/20 21 History of Polycystic Ovarian Syndrome ( PCOS) 03/17/2021 History of anxiety disorder NOS 03/17/20 21 History of migraine headache 03/17/2021 History of psychiatric disorders biopola r disorder 03/17/2021 [facility] Work Phone: 1(563) 330-697105-26-2021 History general Narrative - Reported Includes: Medical History in patient's chart Description Last Updated Exposure to COVID-19 04/23/2021 Previous hospitalizations 04/23/2021 History of gynecologic disorder 03/17/20 21 History of Polycystic Ovarian Syndrome ( PCOS) 03/17/2021 History of anxiety disorder NOS 03/17/20 21 History of migraine headache 03/17/2021 History of psychiatric disorders biopola r disorder 03/17/2021 [facility] Work Phone: Evaluation note* Diagnosis Depression with suicidal ideation- [facility]: evaluation note Includes: Assessments for all patient encounters Findings Encounter Date Morbid obesity Medical Established Patient with Denny Lomeli CNP 04/23/2021 Otitis externa Medical Established Patient with Denny Lomeli CNP 04/23/2021 Z68.42 - Body mass index [BM I] 45.0-49.9, adult Medical Established Patient with Denny Armani RACKING TECHNICIAN 04/23/2021 Post-traumatic stress disorder BH Establ ished Patient with Kinga Short LISWS 04/01/2021 Morbid obesity Medical Established Patient with Denny Armani RACKING TECHNICIAN 04/01/2021 Z68.42 - Body mass index [BM I] 45.0-49.9, adult Medical Established Patient with Denny Armani RACKING TECHNICIAN 04/01/2021 Post-traumatic stress disorder BH Establ ished Patient with Kinga Short LISWS 03/17/2021 Assessment of visit for: lloyd strange for human immunodeficiency virus Medical New Patient with Denny Armani RACKING TECHNICIAN 03/17/2021 Diabetes Risk Test Score was one score 03/17/2021 Medical New Patient with Denny Armani RACKING TECHNICIAN 03/17/2021 Hypertension Medical New Patient with Denny Armani RACKING TECHNICIAN 03/17/2021 Morbid obesity Medical New Patient with Denny Armani RACKING TECHNICIAN 03/17/2021 Post-traumatic stress disorder Medical N ew Patient with Denny Armani RACKING TECHNICIAN 03/17/2021 Z68.42 - Body mass index [BM I] 45.0-49.9, adult Medical New Patient with Denny Armani RACKING TECHNICIAN 03/17/2021 [facility] Work Phone: Evaluation note* Diagnosis Anxiety state- Primary Anxiety state, unspecified documented in this encounter [employer] Phone: evaluation note* Diagnosis Bipolar 1 disorder (HCC)- Primary Bipolar I disorder, most recent episode (or current) unspecified Homicidal ideation documented in this encounter [employer] Phone: evaluation note* Diagnosis Tachycardia Tachycardia, unspecified documented in this encounter [employer] Phone: evaluation note Includes: Assessments for all patient encounters Findings Encounter Date [D50.9 - Iron deficiency ane eduardo, unspecified] iron deficiency anemia Chart Update with Denny Lomeli RACKING TECHNICIAN 07/29/2024 Last Documented On 4 12:07PM ; [facility] Attention-deficit hyperactivity disorder Established Patient with Sarai Alberts [place] 07/18/2024 Last Documented On 4 4:15PM ; [facility] Bipolar I disorder, most rec ent episode, depressed - mild Established Patient with Sarai Alberts [place] 07/18/2024 Last Documented On 4 4:15PM ; [facility] Nicotine dependence Established Patient with Sarai Alberts [place] 07/18/2024 Last Documented On 4 4:15PM ; [facility] Post-traumatic stress disorder Establ ished Patient with Sarai Alberts [place] 07/18/2024 Last Documented On 4 4:15PM ; [facility] [Z68.43 - Body mass index [B TN] 50.0-59.9, adult] assessment of body mass index Medical Established Patient with Denny Armani RACKING TECHNICIAN 07/18/2024 Last Documented On 4 1:56PM ; [facility] Bipolar I disorder, most rec ent episode, depressed - mild Medical Established Patient with Denny Armani RACKING TECHNICIAN 07/18/2024 Last Documented On 4 1:56PM ; [facility] Caries Medical Established Patient with Denny Armani RACKING TECHNICIAN 07/18/2024 Last Documented On 4 1:56PM ; [facility] Encounter for Immunization Medical Estab lished Patient with Denny Armani RACKING TECHNICIAN 07/18/2024 Last Documented On 4 1:56PM ; [facility] Type 2 diabetes mellitus wit hout complication Medical Established Patient with Denny Armani RACKING TECHNICIAN 07/18/2024 Last Documented On 4 1:56PM ; [facility] Attention-deficit hyperactivity disorder Established Patient with Kinga Short LISWS 06/13/2024 Last Documented On 4 3:28PM ; [facility] Bipolar I disorder, most rec ent episode, depressed - mild Established Patient with Kinga Short LISWS 06/13/2024 Last Documented On 4 3:28PM ; [facility] Post-traumatic stress disorder Establ ished Patient with Kinga Short LISWS 06/13/2024 Last Documented On 4 3:28PM ; [facility] [E11.9 - Type 2 diabetes gloria litus without complications] type 2 diabetes mellitus Medical Established Patient with Denny Armani RACKING TECHNICIAN 06/13/2024 Last Documented On 4 7:36PM ; [facility] [F41.1 - Generalized anxiety disorder] generalized anxiety disorder Medical Established Patient with Denny Lomeli CNP 06/13/2024 Last Documented On 4 7:36PM ; [facility] [I10 - Essential (primary) hypertension] essential hypertension Medical Established Patient with Denny Lomeli CNP 06/13/2024 Last Documented On 4 7:36PM ; [facility] [N94.6 - Dysmenorrhea, unspe cified] dysmenorrhea Medical Established Patient with Denny Lomeli CNP 06/13/2024 Last Documented On 4 7:36PM ; [facility] [Z68.43 - Body mass index [B TN] 50.0-59.9, adult] assessment of body mass index Medical Established Patient with Denny Lomeli CNP 06/13/2024 Last Documented On 4 7:36PM ; [facility] Encounter for Immunization Medical Estab lished Patient with Denny Lomeli CNP 06/13/2024 Last Documented On 4 7:36PM ; [facility] Venipuncture was performed Medical Estab lished Patient with Denny Lomeli CNP 06/13/2024 Last Documented On 4 7:36PM ; [facility] Attention-deficit hyperactivity disorder Established Patient with Kinga Short LISWS 04/10/2024 Last Documented On 4 10:10AM ; [facility] Bipolar I disorder, most rec ent episode, depressed - mild BH Established Patient with Kinga Short LISWS 04/10/2024 Last Documented On 4 10:10AM ; [facility] Post-traumatic stress disorder Establ ished Patient with Kinga Short LISWS 04/10/2024 Last Documented On 4 10:10AM ; [facility] [D64.9 - Anemia, unspecified] anemia Med ical Established Patient with Denny Lomeli RACKING TECHNICIAN 04/10/2024 Last Documented On 4 6:51PM ; [facility] [Z68.43 - Body mass index [B TN] 50.0-59.9, adult] assessment of body mass index Medical Established Patient with Denny Lomeli RACKING TECHNICIAN 04/10/2024 Last Documented On 4 6:51PM ; [facility] Bipolar affective disorder, current episode depressed, mild Established Patient with Kinga Short LISWS 01/17/2024 Last Documented On 4 5:16PM ; [facility] Post-traumatic stress disorder BH Establ ished Patient with Kinga Short LISWS 01/17/2024 Last Documented On 4 5:16PM ; [facility] Undifferentiated attention d eficit disorder Established Patient with Kinga Short LISWS 01/17/2024 Last Documented On 4 5:16PM ; [facility] Visit for: screening for disorder BH Est ablished [facility]24 Last Documented On 4 5:16PM ; [facility] [Z68.43 - Body mass index [B TN] 50.0-59.9, adult] assessment of body mass index Medical Established Patient with Denny Lomeli RACKING TECHNICIAN 01/17/2024 Last Documented On 4 7:50PM ; [facility] Attention-deficit hyperactivity disorder Medical Established Patient with Denny Lomeli RACKING TECHNICIAN 01/17/2024 Last Documented On 4 7:50PM ; [facility] Diabetes Risk Test Score was three score 01/17/2024 Medical Established Patient with Denny Lomeli RACKING TECHNICIAN 01/17/2024 Last Documented On 4 7:50PM ; [facility] Visit for: screening for STD Medical Est ablished Patient with Denny Lomeli RACKING TECHNICIAN 01/17/2024 Last Documented On 4 7:50PM ; [facility] [Z68.32 - Body mass index [B TN] 32.0-32.9, adult] assessment of body mass index Medical Established Patient with Denny Lomeli RACKING TECHNICIAN 05/10/2023 Last Documented On 3 6:01PM ; [facility] Borderline personality disorder Medical Established Patient with Dennyartem Lomeli RACKING TECHNICIAN 05/10/2023 Last Documented On 3 6:01PM ; [facility] Screening for diabetes mellitus Medical Established Patient with Dennyartem Lomeli RACKING TECHNICIAN 05/10/2023 Last Documented On 3 6:01PM ; [facility] Assessment of body mass index Medical Es tablished Patient with Dennyartem Lomeli RACKING TECHNICIAN 08/12/2022 Last Documented On 2 2:45PM ; [facility] Bipolar affective disorder, current episode manic [facility] with Belkis Velarde [facility] 06/16/2022 Last Documented On 2 3:22PM ; [facility] Bipolar affective disorder, current episode manic BH Established Patient with Belkis Velarde [facility] 06/15/2022 Last Documented On 2 2:28PM ; [facility] Bipolar affective disorder, current episode depressed, severe with psychosis [facility] with Belkis Velarde [facility] 06/15/2022 Last Documented On 2 3:29PM ; [facility] Assessment of body mass inde x [Body mass index [BMI] 50.0-59.9, adult] Open Access - Established with Leah Monique RACKING TECHNICIAN 06/15/2022 Last Documented On 2 9:36AM ; [facility] Bipolar I disorder, most rec ent episode, manic Open Access - Established with Leah Monique RACKING TECHNICIAN 06/15/2022 Last Documented On 2 9:36AM ; [facility] Post-traumatic stress disorder BH Establ ished Patient with Belkis Velarde [facility] 06/08/2022 Last Documented On 2 3:20PM ; [facility] No cough Medical Established Patient with Denny Armani RACKING TECHNICIAN 06/08/2022 Last Documented On 2 4:04PM ; [facility] Z68.43 - Body mass index [BM I] 50.0-59.9, adult Medical Established Patient with Denny Armani RACKING TECHNICIAN 06/08/2022 Last Documented On 2 4:04PM ; [facility] Borderline personality disor kyree Pt reported hx of sx/dx Established Patient with Belkis Velarde [facility] 05/27/2022 Last Documented On 2 4:08PM ; [facility] Assessment of body mass inde x [Body mass index [BMI] 50.0-59.9, adult] Open Access - Established with Leah Monique [facility] 05/27/2022 Last Documented On 2 7:41PM ; [facility] Diabetes Risk Test Score was three score 05/27/2022 Open Access - Established with Leah Monique [facility] 05/27/2022 Last Documented On 2 7:41PM ; [facility] Bipolar I disorder, most rec ent episode, manic Established [facility] Last Documented On 1 1:35AM ; [facility] Borderline personality disorder Estab lished Patient with [facility] Last Documented On 1 1:35AM ; [facility] Post-traumatic stress disorder Establ ished Patient with Eufemia Mcneil [facility]2021 Last Documented On 1 1:35AM ; [facility] Assessment of visit for: lloyd mcgillning for human immunodeficiency virus Medical Established Patient with Denny Armani [employer]ACKING TECHNICIAN 07/15/2021 Last Documented On 1 2:56PM ; [facility] Nicotine dependence Medical Established Patient with Denny Armani [facility] 07/15/2021 Last Documented On 1 2:56PM ; [facility] Tachycardia Medical Established Patient with Denny Armani [facility] 07/15/2021 Last Documented On 1 2:56PM ; [facility] Z68.43 - Body mass index [BM I] 50.0-59.9, adult Medical Established Patient with Denny Armani RACKING TECHNICIAN 07/15/2021 Last Documented On 1 2:56PM ; [facility] Bipolar I disorder, most rec ent episode, manic Established Patient with Kinga Short [facility] 06/17/2021 Last Documented On 1 10:17AM ; [facility] Borderline personality disor kyree per patient reported history Established Patient with Kinga Short [facility] 06/17/2021 Last Documented On 1 10:17AM ; [facility] Nicotine dependence BH Established Patient with Kinga Short [facility] 06/17/2021 Last Documented On 1 10:17AM ; [facility] Post-traumatic stress disorder Establ ished Patient with Kinga Short [facility] 06/17/2021 Last Documented On 1 10:17AM ; [facility] Body mass index Medical Established Patient with Denny Armani RACKING TECHNICIAN 06/17/2021 Last Documented On 1 5:23PM ; [facility] Morbid obesity Medical Established Patient with Denny Armani RACKING TECHNICIAN 06/17/2021 Last Documented On 1 5:23PM ; [facility] Nicotine dependence uncomplicated Medica l Established Patient with Denny Armani RACKING TECHNICIAN 06/17/2021 Last Documented On 1 5:23PM ; [facility] Z68.42 - Body mass index [BM I] 45.0-49.9, adult Medical Established Patient with Denny Armani RACKING TECHNICIAN 06/17/2021 Last Documented On 1 5:23PM ; [facility] 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 disorders 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 RACKING TECHNICIAN 05/15/2021 Last Documented On 1 7:49AM ; [facility] Mood disorders, NOS per blaze ent reported history Established Patient with Kinga Short LISWS 04/23/2021 Last Documented On 1 7:15PM ; [facility] Post-traumatic stress disorder Establ ished Patient with Kinga Short LISWS 04/23/2021 Last Documented On 1 7:15PM ; [facility] Morbid obesity Medical Established Patient with Denny Armani RACKING TECHNICIAN 04/23/2021 Last Documented On 1 12:31PM ; [facility] Otitis externa Medical Established Patient with Denny Armani RACKING TECHNICIAN 04/23/2021 Last Documented On 1 12:31PM ; [facility] Z68.42 - Body mass index [BM I] 45.0-49.9, adult Medical Established Patient with Denny Armani RACKING TECHNICIAN 04/23/2021 Last Documented On 1 12:31PM ; [facility] Post-traumatic stress disorder Establ ished Patient with Kinga Short [facility] 04/01/2021 Last Documented On 1 10:05PM ; [facility] Morbid obesity Medical Established Patient with Denny Armani RACKING TECHNICIAN 04/01/2021 Last Documented On 1 4:45PM ; [facility] Z68.42 - Body mass index [BM I] 45.0-49.9, adult Medical Established Patient with Denny Armani RACKING TECHNICIAN 04/01/2021 Last Documented On 1 4:45PM ; [facility] Post-traumatic stress disorder Establ ished Patient with Kinga Short LISWS 03/17/2021 Last Documented On 1 11:59AM ; [facility] Assessment of visit for: lloyd mcgillning for human immunodeficiency virus Medical New Patient with Denny Armani RACKING TECHNICIAN 03/17/2021 Last Documented On 1 4:06PM ; [facility] Diabetes Risk Test Score was one score 03/17/2021 Medical New Patient with Denny Armani RACKING TECHNICIAN 03/17/2021 Last Documented On 1 4:06PM ; [facility] Hypertension Medical New Patient with Denny C chas RACKING TECHNICIAN 03/17/2021 Last Documented On 1 4:06PM ; [facility] Morbid obesity Medical New Patient with Denny C chas RACKING TECHNICIAN 03/17/2021 Last Documented On 1 4:06PM ; [facility] Post-traumatic stress disorder Medical New Patie nt with Denny Armani RACKING TECHNICIAN 03/17/2021 Last Documented On 1 4:06PM ; [facility] Z68.42 - Body mass index [BM I] 45.0-49.9, adult Medical New Patient with Denny Armani RACKING TECHNICIAN 03/17/2021 Last Documented On 1 4:06PM ; [facility] Work Phone: History of Present illness Narrative History of Present Illness not supported for this document type No History of Present Illness RecordedHealth Replaced by [facility] Work Phone: Hospital Discharge instructions* Instructions* Blanco Montalvo MD - 05/16/2021 Please take all medications as prescribed. Please follow up with your primary care physician by calling today, or as soon as possible, for thefirst available appointment. If you do not have a primary care physician, please contact a physician or clinic listed below today to establish care. Please return to the emergency department IMMEDIATELY if you develop uncontrolled fevers, uncontrolled vomiting, change in symptoms, worsening of symptoms, or ANY other concerns. * Attachments The following attachments cannot be sent through Care Everywhere. * Anxiety Disorder (Romanian) [facility]: Instructions Instructions not supported for this document type No [facility] Work Phone: Instructions Includes: Instructions for all patient encounters Education and Decision Aids were provided during visit for: Counseling/education [Use fo r free text] Last Documented On 4 7:40PM ; [facility] Discussed nutritional needs teach healthy choices including fruits and vegetables Last Documented On 4 7:14PM ; [facility] Patient education about a pr oper diet Last Documented On 4 7:14PM ; [facility] Discussed concerns about exe rcise : promote physical activity Last Documented On 4 7:14PM ; [facility] Not requesting contraception Last Documented On 4 7:14PM ; [facility] Discussed nutritional needs teach healthy choices including fruits and vegetables Last Documented On 3 5:15PM ; [facility] Patient education about a pr oper diet Last Documented On 3 5:15PM ; [facility] Discussed concerns about exe rcise : promote physical activity Last Documented On 3 5:15PM ; [facility] Discussed nutritional needs teach healthy choices including fruits and vegetables Last Documented On 2 1:42PM ; [facility] Patient education about a pr oper diet Last Documented On 2 1:42PM ; [facility] Discussed concerns about exe rcise : promote physical activity Last Documented On 2 1:42PM ; [facility] offered active listening and supportive feedback; normalized emotions and feelings, also provided pt time to process any current stressors. ~Promoted and encouraged follow-through with scheduling psychiatric services Last Documented On 2 3:21PM ; [facility] provided supportive, empa thic listening and reflective feedback. ~Explored, encouraged, and supported the pt to discuss current sx/mood, assess risk for harm/need, coping mechanisms, support network and safety planning. ~Supported pt's plan to f/up with Dr. Carney, as planned at [place], [place]. ~Encouraged pt to use safety plan, if needed to ensure she remains safe Last Documented On 2 2:27PM ; [facility] Discussed nutritional needs teach healthy choices including fruits and vegetables Last Documented On 2 3:20PM ; [facility] Patient education about a pr oper diet Last Documented On 2 3:20PM ; [facility] Discussed concerns about exe rcise : promote physical activity ~ ~Will restart trazodone and prazosin ~ ~Patient is planning to have brother stay with her for a few days for emotional support ~ ~Follow up with PCP at next scheduled visit ~ ~Call psychiatrist office to schedule appt ~ ~Call counselor Last Documented On 2 9:35AM ; [facility] Provided supportive listenin g and empathic feedback; encouraged, explored, and supported the pt as she processed current symptoms, Issues, and concerns. ~Discussed past tx and explored current needs/options. Acknowledged and validated pt's thoughts and emotions. ~Explored coping mechanisms and support network; utilized opportunity for safety planning; promoted seeking positive support and seeking help, as needed Last Documented On 2 3:28PM ; [facility] provided active listenin g, support and helped pt process though current symptoms and stressor(s). Discussed and explored past effectiveness of medication; identified objectives and future goals; promoted use of healthy coping mechanisms, and self-care practices Last Documented On 2 3:19PM ; [facility] Reviewed side effects and Ri sks/Benefits analysis Last Documented On 2 3:19PM ; [facility] Discussed nutritional needs teach healthy choices including fruits and vegetables Last Documented On 2 3:15PM ; [facility] Patient education about a pr oper diet Last Documented On 2 3:15PM ; [facility] Discussed concerns about exe rcise : promote physical activity Last Documented On 2 3:15PM ; [facility] introduced pt to [facility] in tegrated model of care ~P offered active listening and supportive feedback; normalized emotions and feelings, also provided pt time to process any current stressors ~P discussed potential benefits of counseling and supported re-engaging, as needed. ~P encouraged pt to continue to make time to implement self-care regimen and use coping methods, as needed Last Documented On 2 4:07PM ; [facility] Discussed nutritional needs teach healthy choices including fruits and vegetables Last Documented On 2 3:15PM ; [facility] Patient education about a pr oper diet Last Documented On 2 3:15PM ; [facility] Inquiry and counseling about medication administration and compliance Last Documented On 2 7:37PM ; [facility] Discussed concerns about exe rcise : promote physical activity Last Documented On 2 3:15PM ; [facility] Patient goals discussed Last Documented On 2 7:37PM ; [facility] Ansewred pt's questions re B orderlline Personality D/O and Bipolar D/O raised by psychiatrist at [facility]. ~Validated and normalized patient?s feelings while assisting to process recent events Last Documented On 1 1:33AM ; [facility] Discussed nutritional needs teach healthy choices including fruits and vegetables Last Documented On 1 2:04PM ; [facility] Patient education about a pr oper diet Last Documented On 1 2:04PM ; [facility] Discussed concerns about exe rcise : promote physical activity Last Documented On 1 2:04PM ; [facility] provided active listenin g, support and helped patient process through current symptoms and stressors with ongoing mental health concerns and medication changes. [facility] discussed coping skills and supports that patient is implementing. discussed implementing coping skills as discussed with counseling and attending weekly appointments as scheduled with counselor. Patient was encouraged to continue writing down concerns with medications and discuss with providers. [facility] reminded patient of crisis resources should they be needed. Patient reports having crisis resources and could return to ER Last Documented On 1 10:17AM ; [facility] Patient education about a pr oper diet Last Documented On 1 5:17PM ; [facility] Patient education about meal planning Last Documented On 5:17PM ; [facility] Education about changing eat ing habits Last Documented On 5:17PM ; [facility] Patient education about high fiber diet Last Documented On 5:17PM ; [facility] Patient education about low fat diet Last Documented On 1 5:17PM ; [facility] Patient education about low cholesterol diet Last Documented On 1 5:17PM ; [facility] Patient education about low carbohydrate diet Last Documented On 1 5:17PM ; [facility] Patient education about high protein diet Last Documented On 5:17PM ; [facility] offered active and suppo rtive listening, normalized emotions and feelings, and processed current stressors. [facility] discussed resources for finding a counselor and provided list of local resources. [facility] discussed patients coping skills and supports and encouraged patient to continue to implement. [facility] reminded patient of crisis resources should they be needed Last Documented On 1 7:15PM ; [facility] Discussed nutritional needs teach healthy choices including fruits and vegetables Last Documented On 1 11:38AM ; [facility] Patient education about a pr oper diet Last Documented On 1 11:38AM ; [facility] Patient education about a pr oper diet Last Documented On 1 12:19PM ; [facility] Patient education about meal planning Last Documented On 1 12:19PM ; [facility] Education about changing eat ing habits Last Documented On 1 12:19PM ; [facility] Patient education about high fiber diet Last Documented On 1 12:19PM ; [facility] Patient education about low fat diet Last Documented On 1 12:19PM ; [facility] Patient education about low cholesterol diet Last Documented On 1 12:19PM ; [facility] Patient education about low carbohydrate diet Last Documented On 1 12:19PM ; [facility] Patient education about high protein diet Last Documented On 1 12:19PM ; [facility] Discussed concerns about exe rcise : promote physical activity Last Documented On 1 11:38AM ; [facility], support and helped patient process through current symptoms and stressors related to family conflict. ~P discussed coping skills and supports with patient that can be implemented and reminded patient of ways to access additional resources. ~P discussed crisis resources and plan. Patient has crisis resources still available should they be needed Last Documented On 1 7:04PM ; [facility] Discussed nutritional needs teach healthy choices including fruits and vegetables Last Documented On 1 3:57PM ; [facility] Patient education about a pr oper diet Last Documented On 1 3:57PM ; [facility] Discussed concerns about exe rcise : promote physical activity Last Documented On 1 3:57PM ; [facility] integrated model of care. [facility] and PCP reassured patient of not sharing information with anyone unless she has signed a release for us to do so. ~P provided active listening, support and helped patient process through current symptoms and stressors. ~P discussed establishing counseling and psychiatry. [facility] discussed EMDR therapy and ways to find provider who does this type of therapy. ~P discussed crisis resources should mood worsen, P provided text hotline number for crisis. P reviewed crisis plan with patient and patient is able to contact positive supports and family when feeling down Last Documented On 1 11:46AM ; [facility] Discussed nutritional needs teach healthy choices including fruits and vegetables Last Documented On 1 2:11PM ; [facility] Patient education about a pr oper diet Last Documented On 1 2:11PM ; [facility] Discussed concerns about exe rcise : promote physical activity Last Documented On 1 2:11PM ; [facility] Work Phone: Instructions Includes: Instructions for all patient encounters Education and Decision Aids were provided during visit for: P offered active and suppo rtive listening and processed current stressors related to getting medications. ~P discussed coping skills and supports to implement in daily routine. ~[facility] discussed progress patient has felt they have made recently and encouraged continued follow-up with providers to address health Last Documented On 4 5:16PM ; [facility] Discussed nutritional needs teach healthy choices including fruits and vegetables Last Documented On 4 7:14PM ; [facility] Patient education about a pr oper diet Last Documented On 4 7:14PM ; [facility] Discussed concerns about exe rcise : promote physical activity Last Documented On 4 7:14PM ; [facility] Not requesting contraception Last Documented On 4 7:14PM ; [facility] Discussed nutritional needs teach healthy choices including fruits and vegetables Last Documented On 3 5:15PM ; [facility] Patient education about a pr oper diet Last Documented On 3 5:15PM ; [facility] Discussed concerns about exe rcise : promote physical activity Last Documented On 3 5:15PM ; [facility] Discussed nutritional needs teach healthy choices including fruits and vegetables Last Documented On 2 1:42PM ; [facility] Patient education about a pr oper diet Last Documented On 2 1:42PM ; [facility] Discussed concerns about exe rcise : promote physical activity Last Documented On 2 1:42PM ; [facility] offered active listening and supportive feedback; normalized emotions and feelings, also provided pt time to process any current stressors. ~Promoted and encouraged follow-through with scheduling psychiatric services Last Documented On 2 3:21PM ; [facility] provided supportive, empa thic listening and reflective feedback. ~Explored, encouraged, and supported the pt to discuss current sx/mood, assess risk for harm/need, coping mechanisms, support network and safety planning. ~Supported pt's plan to f/up with Dr. Carney, as planned at [place], [place]. ~Encouraged pt to use safety plan, if needed to ensure she remains safe Last Documented On 2 2:27PM ; [facility] Discussed nutritional needs teach healthy choices including fruits and vegetables Last Documented On 2 3:20PM ; [facility] Patient education about a pr oper diet Last Documented On 2 3:20PM ; [facility] Discussed concerns about exe rcise : promote physical activity ~ ~Will restart trazodone and prazosin ~ ~Patient is planning to have brother stay with her for a few days for emotional support ~ ~Follow up with PCP at next scheduled visit ~ ~Call psychiatrist office to schedule appt ~ ~Call counselor Last Documented On 2 9:35AM ; [facility] Provided supportive listenin g and empathic feedback; encouraged, explored, and supported the pt as she processed current symptoms, Issues, and concerns. ~Discussed past tx and explored current needs/options. Acknowledged and validated pt's thoughts and emotions. ~Explored coping mechanisms and support network; utilized opportunity for safety planning; promoted seeking positive support and seeking help, as needed Last Documented On 2 3:28PM ; [facility], support and helped pt process though current symptoms and stressor(s). Discussed and explored past effectiveness of medication; identified objectives and future goals; promoted use of healthy coping mechanisms, and self-care practices Last Documented On 2 3:19PM ; [facility] Reviewed side effects and Ri sks/Benefits analysis Last Documented On 2 3:19PM ; [facility] Discussed nutritional needs teach healthy choices including fruits and vegetables Last Documented On 2 3:15PM ; [facility] Patient education about a pr oper diet Last Documented On 2 3:15PM ; [facility] Discussed concerns about exe rcise : promote physical activity Last Documented On 2 3:15PM ; [facility] introduced pt to HPWO in tegrated model of care ~P offered active listening and supportive feedback; normalized emotions and feelings, also provided pt time to process any current stressors ~[facility] discussed potential benefits of counseling and supported re-engaging, as needed. ~[facility] encouraged pt to continue to make time to implement self-care regimen and use coping methods, as needed Last Documented On 2 4:07PM ; [facility] Discussed nutritional needs teach healthy choices including fruits and vegetables Last Documented On 2 3:15PM ; [facility] Patient education about a pr oper diet Last Documented On 2 3:15PM ; [facility] Inquiry and counseling about medication administration and compliance Last Documented On 2 7:37PM ; [facility] Discussed concerns about exe rcise : promote physical activity Last Documented On 2 3:15PM ; [facility] Patient goals discussed Last Documented On 2 7:37PM ; [facility] Ansewred pt's questions re B orderlline Personality D/O and Bipolar D/O raised by psychiatrist at [facility]. ~Validated and normalized patient?s feelings while assisting to process recent events Last Documented On 1 1:33AM ; [facility] Discussed nutritional needs teach healthy choices including fruits and vegetables Last Documented On 1 2:04PM ; [facility] Patient education about a pr oper diet Last Documented On 1 2:04PM ; [facility] Discussed concerns about exe rcise : promote physical activity Last Documented On 1 2:04PM ; [facility] provided active listenin g, support and helped patient process through current symptoms and stressors with ongoing mental health concerns and medication changes. ~[facility] discussed coping skills and supports that patient is implementing. discussed implementing coping skills as discussed with counseling and attending weekly appointments as scheduled with counselor. Patient was encouraged to continue writing down concerns with medications and discuss with providers. [facility] reminded patient of crisis resources should they be needed. Patient reports having crisis resources and could return to ER Last Documented On 1 10:17AM ; [facility] Patient education about a pr oper diet Last Documented On 1 5:17PM ; [facility] Patient education about meal planning Last Documented On 5:17PM ; [facility] Education about changing eat ing habits Last Documented On 1 5:17PM ; [facility] Patient education about high fiber diet Last Documented On 5:17PM ; [facility] Patient education about low fat diet Last Documented On 5:17PM ; [facility] Patient education about low cholesterol diet Last Documented On 5:17PM ; [facility] Patient education about low carbohydrate diet Last Documented On 5:17PM ; [facility] Patient education about high protein diet Last Documented On 5:17PM ; [facility] offered active and suppo rtive listening, normalized emotions and feelings, and processed current stressors. [facility] discussed resources for finding a counselor and provided list of local resources. [facility] discussed patients coping skills and supports and encouraged patient to continue to implement. [facility] reminded patient of crisis resources should they be needed Last Documented On 1 7:15PM ; [facility] Discussed nutritional needs teach healthy choices including fruits and vegetables Last Documented On 1 11:38AM ; [facility] Patient education about a pr oper diet Last Documented On 1 11:38AM ; [facility] Patient education about a pr oper diet Last Documented On 1 12:19PM ; [facility] Patient education about meal planning Last Documented On 1 12:19PM ; [facility] Education about changing eat ing habits Last Documented On 1 12:19PM ; [facility] Patient education about high fiber diet Last Documented On 1 12:19PM ; [facility] Patient education about low fat diet Last Documented On 1 12:19PM ; [facility] Patient education about low cholesterol diet Last Documented On 1 12:19PM ; [facility] Patient education about low carbohydrate diet Last Documented On 1 12:19PM ; [facility] Patient education about high protein diet Last Documented On 1 12:19PM ; [facility] Discussed concerns about exe rcise : promote physical activity Last Documented On 1 11:38AM ; [facility] provided active listenin g, support and helped patient process through current symptoms and stressors related to family conflict. ~[facility] discussed coping skills and supports with patient that can be implemented and reminded patient of ways to access additional resources. ~[facility] discussed crisis resources and plan. Patient has crisis resources still available should they be needed Last Documented On 1 7:04PM ; [facility] Discussed nutritional needs teach healthy choices including fruits and vegetables Last Documented On 1 3:57PM ; [facility] Patient education about a pr oper diet Last Documented On 1 3:57PM ; [facility] Discussed concerns about exe rcise : promote physical activity Last Documented On 1 3:57PM ; [facility] integrated model of care. [facility] and PCP reassured patient of not sharing information with anyone unless she has signed a release for us to do so. ~[facility] provided active listening, support and helped patient process through current symptoms and stressors. ~[facility] discussed establishing counseling and psychiatry. [facility] discussed EMDR therapy and ways to find provider who does this type of therapy. ~[facility] discussed crisis resources should mood worsen, [facility] provided text hotline number for crisis. [facility] reviewed crisis plan with patient and patient is able to contact positive supports and family when feeling down Last Documented On 1 11:46AM ; [facility] Discussed nutritional needs teach healthy choices including fruits and vegetables Last Documented On 1 2:11PM ; [facility] Patient education about a pr oper diet Last Documented On 1 2:11PM ; [facility] Discussed concerns about exe rcise : promote physical activity Last Documented On 1 2:11PM ; [facility] Work Phone: Instructions Includes: Instructions for all patient encounters Education and Decision Aids were provided during visit for: [facility] offered active and suppo rtive listening and processed current stressors related to getting medications. ~[facility] discussed coping skills and supports to implement in daily routine. ~P discussed progress patient has felt they have made recently and encouraged continued follow-up with providers to address health Last Documented On 4 5:16PM ; [facility] Discussed nutritional needs teach healthy choices including fruits and vegetables Last Documented On 4 7:14PM ; [facility] Patient education about a pr oper diet Last Documented On 4 7:14PM ; [facility] Discussed concerns about exe rcise : promote physical activity Last Documented On 4 7:14PM ; [facility] Not requesting contraception Last Documented On 4 7:14PM ; [facility] Discussed nutritional needs teach healthy choices including fruits and vegetables Last Documented On 3 5:15PM ; [facility] Patient education about a pr oper diet Last Documented On 3 5:15PM ; [facility] Discussed concerns about exe rcise : promote physical activity Last Documented On 3 5:15PM ; [facility] Discussed nutritional needs teach healthy choices including fruits and vegetables Last Documented On 2 1:42PM ; [facility] Patient education about a pr oper diet Last Documented On 2 1:42PM ; [facility] Discussed concerns about exe rcise : promote physical activity Last Documented On 2 1:42PM ; [facility] listening and supportive feedback; normalized emotions and feelings, also provided pt time to process any current stressors. ~Promoted and encouraged follow-through with scheduling psychiatric services Last Documented On 2 3:21PM ; [facility] provided supportive, empa thic listening and reflective feedback. ~Explored, encouraged, and supported the pt to discuss current sx/mood, assess risk for harm/need, coping mechanisms, support network and safety planning. ~Supported pt's plan to f/up with Dr. Carney, as planned at [place], [place]. ~Encouraged pt to use safety plan, if needed to ensure she remains safe Last Documented On 2 2:27PM ; [facility] Discussed nutritional needs teach healthy choices including fruits and vegetables Last Documented On 2 3:20PM ; [facility] Patient education about a pr oper diet Last Documented On 2 3:20PM ; [facility] Discussed concerns about exe rcise : promote physical activity ~ ~Will restart trazodone and prazosin ~ ~Patient is planning to have brother stay with her for a few days for emotional support ~ ~Follow up with PCP at next scheduled visit ~ ~Call psychiatrist office to schedule appt ~ ~Call counselor Last Documented On 2 9:35AM ; [facility] Provided supportive listenin g and empathic feedback; encouraged, explored, and supported the pt as she processed current symptoms, Issues, and concerns. ~Discussed past tx and explored current needs/options. Acknowledged and validated pt's thoughts and emotions. ~Explored coping mechanisms and support network; utilized opportunity for safety planning; promoted seeking positive support and seeking help, as needed Last Documented On 2 3:28PM ; [facility] provided active listenin g, support and helped pt process though current symptoms and stressor(s). Discussed and explored past effectiveness of medication; identified objectives and future goals; promoted use of healthy coping mechanisms, and self-care practices Last Documented On 2 3:19PM ; [facility] Reviewed side effects and Ri sks/Benefits analysis Last Documented On 2 3:19PM ; [facility] Discussed nutritional needs teach healthy choices including fruits and vegetables Last Documented On 2 3:15PM ; [facility] Patient education about a pr oper diet Last Documented On 2 3:15PM ; [facility] Discussed concerns about exe rcise : promote physical activity Last Documented On 2 3:15PM ; [facility] introduced pt to [facility] in tegrated model of care ~P offered active listening and supportive feedback; normalized emotions and feelings, also provided pt time to process any current stressors ~[facility] discussed potential benefits of counseling and supported re-engaging, as needed. ~P encouraged pt to continue to make time to implement self-care regimen and use coping methods, as needed Last Documented On 2 4:07PM ; [facility] Discussed nutritional needs teach healthy choices including fruits and vegetables Last Documented On 2 3:15PM ; [facility] Patient education about a pr oper diet Last Documented On 2 3:15PM ; [facility] Inquiry and counseling about medication administration and compliance Last Documented On 2 7:37PM ; [facility] Discussed concerns about exe rcise : promote physical activity Last Documented On 2 3:15PM ; [facility] Patient goals discussed Last Documented On 2 7:37PM ; [facility] Ansewred pt's questions re B orderlline Personality D/O and Bipolar D/O raised by psychiatrist at [facility]. ~Validated and normalized patient?s feelings while assisting to process recent events Last Documented On 1 1:33AM ; [facility] Discussed nutritional needs teach healthy choices including fruits and vegetables Last Documented On 1 2:04PM ; [facility] Patient education about a pr oper diet Last Documented On 1 2:04PM ; [facility] Discussed concerns about exe rcise : promote physical activity Last Documented On 1 2:04PM ; [facility] provided active listenin g, support and helped patient process through current symptoms and stressors with ongoing mental health concerns and medication changes. ~[facility] discussed coping skills and supports that patient is implementing. discussed implementing coping skills as discussed with counseling and attending weekly appointments as scheduled with counselor. Patient was encouraged to continue writing down concerns with medications and discuss with providers. ~[facility] reminded patient of crisis resources should they be needed. Patient reports having crisis resources and could return to ER Last Documented On 1 10:17AM ; [facility] Patient education about a pr oper diet Last Documented On 1 5:17PM ; [facility] Patient education about meal planning Last Documented On 5:17PM ; [facility] Education about changing eat ing habits Last Documented On 1 5:17PM ; [facility] Patient education about high fiber diet Last Documented On 5:17PM ; [facility] Patient education about low fat diet Last Documented On 5:17PM ; [facility] Patient education about low cholesterol diet Last Documented On 5:17PM ; [facility] Patient education about low carbohydrate diet Last Documented On 5:17PM ; [facility] Patient education about high protein diet Last Documented On 5:17PM ; [facility] offered active and suppo rtive listening, normalized emotions and feelings, and processed current stressors. ~[facility] discussed resources for finding a counselor and provided list of local resources. ~[facility] discussed patients coping skills and supports and encouraged patient to continue to implement. [facility] reminded patient of crisis resources should they be needed Last Documented On 7:15PM ; [facility] Discussed nutritional needs teach healthy choices including fruits and vegetables Last Documented On 11:38AM ; [facility] Patient education about a pr oper diet Last Documented On 11:38AM ; [facility] Patient education about a pr oper diet Last Documented On 12:19PM ; [facility] Patient education about meal planning Last Documented On 12:19PM ; [facility] Education about changing eat ing habits Last Documented On 12:19PM ; [facility] Patient education about high fiber diet Last Documented On 12:19PM ; [facility] Patient education about low fat diet Last Documented On 12:19PM ; [facility] Patient education about low cholesterol diet Last Documented On 12:19PM ; [facility] Patient education about low carbohydrate diet Last Documented On 1 12:19PM ; [facility] Patient education about high protein diet Last Documented On 1 12:19PM ; [facility] Discussed concerns about exe rcise : promote physical activity Last Documented On 1 11:38AM ; [facility] provided active listenin g, support and helped patient process through current symptoms and stressors related to family conflict. ~[facility] discussed coping skills and supports with patient that can be implemented and reminded patient of ways to access additional resources. ~[facility] discussed crisis resources and plan. Patient has crisis resources still available should they be needed Last Documented On 1 7:04PM ; [facility] Discussed nutritional needs teach healthy choices including fruits and vegetables Last Documented On 1 3:57PM ; [facility] Patient education about a pr oper diet Last Documented On 1 3:57PM ; [facility] Discussed concerns about exe rcise : promote physical activity Last Documented On 1 3:57PM ; [facility] integrated model of care. P and PCP reassured patient of not sharing information with anyone unless she has signed a release for us to do so. ~[facility] provided active listening, support and helped patient process through current symptoms and stressors. ~[facility] discussed establishing counseling and psychiatry. [facility] discussed EMDR therapy and ways to find provider who does this type of therapy. ~[facility] discussed crisis resources should mood worsen, [facility] provided text hotline number for crisis. [facility] reviewed crisis plan with patient and patient is able to contact positive supports and family when feeling down Last Documented On 1 11:46AM ; [facility] Discussed nutritional needs teach healthy choices including fruits and vegetables Last Documented On 1 2:11PM ; [facility] Patient education about a pr oper diet Last Documented On 1 2:11PM ; [facility] Discussed concerns about exe rcise : promote physical activity Last Documented On 1 2:11PM ; [facility] Work Phone: Instructions Includes: Instructions for all patient encounters Education and Decision Aids were provided during visit for: P offered active and suppo rtive listening and processed current stressors. ~[facility] discussed coping skills and supports that can be implemented to manage increased anxiety and stressors. [facility] discussed potential of resuming counseling, even if for monthly visits to process ongoing stressors. ~[facility] encouraged patient to follow- up on referrals as discussed with PCP Last Documented On 4 10:08AM ; [facility] Discussed nutritional needs teach healthy choices including fruits and vegetables Last Documented On 4 4:46PM ; [facility] Patient education about a pr oper diet Last Documented On 4 4:46PM ; [facility] Discussed concerns about exe rcise : promote physical activity Last Documented On 4 4:46PM ; [facility] Not requesting contraception Last Documented On 4 4:46PM ; [facility] offered active and suppo rtive listening and processed current stressors related to getting medications. ~[facility] discussed coping skills and supports to implement in daily routine. ~[facility] discussed progress patient has felt they have made recently and encouraged continued follow-up with providers to address health Last Documented On 4 5:16PM ; [facility] Discussed nutritional needs teach healthy choices including fruits and vegetables Last Documented On 4 7:14PM ; [facility] Patient education about a pr oper diet Last Documented On 4 7:14PM ; [facility] Discussed concerns about exe rcise : promote physical activity Last Documented On 4 7:14PM ; [facility] Not requesting contraception Last Documented On 4 7:14PM ; [facility] Discussed nutritional needs teach healthy choices including fruits and vegetables Last Documented On 3 5:15PM ; [facility] Patient education about a pr oper diet Last Documented On 3 5:15PM ; [facility] Discussed concerns about exe rcise : promote physical activity Last Documented On 3 5:15PM ; [facility] Discussed nutritional needs teach healthy choices including fruits and vegetables Last Documented On 2 1:42PM ; [facility] Patient education about a pr oper diet Last Documented On 2 1:42PM ; [facility] Discussed concerns about exe rcise : promote physical activity Last Documented On 2 1:42PM ; [facility] offered active listening and supportive feedback; normalized emotions and feelings, also provided pt time to process any current stressors. ~Promoted and encouraged follow-through with scheduling psychiatric services Last Documented On 2 3:21PM ; [facility] provided supportive, empa thic listening and reflective feedback. ~Explored, encouraged, and supported the pt to discuss current sx/mood, assess risk for harm/need, coping mechanisms, support network and safety planning. ~Supported pt's plan to f/up with Dr. Carney, as planned at [place], [place]. ~Encouraged pt to use safety plan, if needed to ensure she remains safe Last Documented On 2 2:27PM ; [facility] Discussed nutritional needs teach healthy choices including fruits and vegetables Last Documented On 2 3:20PM ; [facility] Patient education about a pr oper diet Last Documented On 2 3:20PM ; [facility] Discussed concerns about exe rcise : promote physical activity ~ ~Will restart trazodone and prazosin ~ ~Patient is planning to have brother stay with her for a few days for emotional support ~ ~Follow up with PCP at next scheduled visit ~ ~Call psychiatrist office to schedule appt ~ ~Call counselor Last Documented On 2 9:35AM ; [facility] Provided supportive listenin g and empathic feedback; encouraged, explored, and supported the pt as she processed current symptoms, Issues, and concerns. ~Discussed past tx and explored current needs/options. Acknowledged and validated pt's thoughts and emotions. ~Explored coping mechanisms and support network; utilized opportunity for safety planning; promoted seeking positive support and seeking help, as needed Last Documented On 2 3:28PM ; [facility] provided active listenin g, support and helped pt process though current symptoms and stressor(s). Discussed and explored past effectiveness of medication; identified objectives and future goals; promoted use of healthy coping mechanisms, and self-care practices Last Documented On 2 3:19PM ; [facility] Reviewed side effects and Ri sks/Benefits analysis Last Documented On 2 3:19PM ; [facility] Discussed nutritional needs teach healthy choices including fruits and vegetables Last Documented On 2 3:15PM ; [facility] Patient education about a pr oper diet Last Documented On 2 3:15PM ; [facility] Discussed concerns about exe rcise : promote physical activity Last Documented On 2 3:15PM ; [facility] introduced pt to [facility] in tegrated model of care ~P offered active listening and supportive feedback; normalized emotions and feelings, also provided pt time to process any current stressors ~P discussed potential benefits of counseling and supported re-engaging, as needed. ~P encouraged pt to continue to make time to implement self-care regimen and use coping methods, as needed Last Documented On 2 4:07PM ; [facility] Discussed nutritional needs teach healthy choices including fruits and vegetables Last Documented On 2 3:15PM ; [facility] Patient education about a pr oper diet Last Documented On 2 3:15PM ; [facility] Inquiry and counseling about medication administration and compliance Last Documented On 2 7:37PM ; [facility] Discussed concerns about exe rcise : promote physical activity Last Documented On 2 3:15PM ; [facility] Patient goals discussed Last Documented On 2 7:37PM ; [facility] Ansewred pt's questions re B orderlline Personality D/O and Bipolar D/O raised by psychiatrist at [facility]. ~Validated and normalized patient?s feelings while assisting to process recent events Last Documented On 1 1:33AM ; [facility] Discussed nutritional needs teach healthy choices including fruits and vegetables Last Documented On 1 2:04PM ; [facility] Patient education about a pr oper diet Last Documented On 1 2:04PM ; [facility] Discussed concerns about exe rcise : promote physical activity Last Documented On 1 2:04PM ; [facility] provided active listenin g, support and helped patient process through current symptoms and stressors with ongoing mental health concerns and medication changes. [facility] discussed coping skills and supports that patient is implementing. discussed implementing coping skills as discussed with counseling and attending weekly appointments as scheduled with counselor. Patient was encouraged to continue writing down concerns with medications and discuss with providers. [facility] reminded patient of crisis resources should they be needed. Patient reports having crisis resources and could return to ER Last Documented On 1 10:17AM ; [facility] Patient education about a pr oper diet Last Documented On 5:17PM ; [facility] Patient education about meal planning Last Documented On 5:17PM ; [facility] Education about changing eat ing habits Last Documented On 5:17PM ; [facility] Patient education about high fiber diet Last Documented On 5:17PM ; [facility] Patient education about low fat diet Last Documented On 1 5:17PM ; [facility] Patient education about low cholesterol diet Last Documented On 1 5:17PM ; [facility] Patient education about low carbohydrate diet Last Documented On 1 5:17PM ; [facility] Patient education about high protein diet Last Documented On 5:17PM ; [facility] offered active and suppo rtive listening, normalized emotions and feelings, and processed current stressors. [facility] discussed resources for finding a counselor and provided list of local resources. [facility] discussed patients coping skills and supports and encouraged patient to continue to implement. [facility] reminded patient of crisis resources should they be needed Last Documented On 1 7:15PM ; [facility] Discussed nutritional needs teach healthy choices including fruits and vegetables Last Documented On 1 11:38AM ; [facility] Patient education about a pr oper diet Last Documented On 1 11:38AM ; [facility] Patient education about a pr oper diet Last Documented On 1 12:19PM ; [facility] Patient education about meal planning Last Documented On 1 12:19PM ; [facility] Education about changing eat ing habits Last Documented On 1 12:19PM ; [facility] Patient education about high fiber diet Last Documented On 1 12:19PM ; [facility] Patient education about low fat diet Last Documented On 1 12:19PM ; [facility] Patient education about low cholesterol diet Last Documented On 1 12:19PM ; [facility] Patient education about low carbohydrate diet Last Documented On 1 12:19PM ; [facility] Patient education about high protein diet Last Documented On 1 12:19PM ; [facility] Discussed concerns about exe rcise : promote physical activity Last Documented On 1 11:38AM ; [facility], support and helped patient process through current symptoms and stressors related to family conflict. ~P discussed coping skills and supports with patient that can be implemented and reminded patient of ways to access additional resources. ~P discussed crisis resources and plan. Patient has crisis resources still available should they be needed Last Documented On 1 7:04PM ; [facility] Discussed nutritional needs teach healthy choices including fruits and vegetables Last Documented On 1 3:57PM ; [facility] Patient education about a pr oper diet Last Documented On 1 3:57PM ; [facility] Discussed concerns about exe rcise : promote physical activity Last Documented On 1 3:57PM ; [facility] integrated model of care. [facility] and PCP reassured patient of not sharing information with anyone unless she has signed a release for us to do so. ~P provided active listening, support and helped patient process through current symptoms and stressors. ~P discussed establishing counseling and psychiatry. [facility] discussed EMDR therapy and ways to find provider who does this type of therapy. ~P discussed crisis resources should mood worsen, P provided text hotline number for crisis. P reviewed crisis plan with patient and patient is able to contact positive supports and family when feeling down Last Documented On 1 11:46AM ; [facility] Discussed nutritional needs teach healthy choices including fruits and vegetables Last Documented On 1 2:11PM ; [facility] Patient education about a pr oper diet Last Documented On 1 2:11PM ; [facility] Discussed concerns about exe rcise : promote physical activity Last Documented On 1 2:11PM ; [facility] Work Phone: Instructions Includes: Instructions for all patient encounters Education and Decision Aids were provided during visit for: Counseling/education [Use fo r free text] Last Documented On 4 6:27PM ; [facility] Discussed nutritional needs teach healthy choices including fruits and vegetables Last Documented On 4 4:51PM ; [facility] Patient education about a pr oper diet Last Documented On 4 4:51PM ; [facility] Discussed concerns about exe rcise : promote physical activity Last Documented On 4 4:51PM ; [facility] Referred Patient to a Diabet es Self-Management Program Last Documented On 4 5:22PM ; [facility] offered active and suppo rtive listening and processed current stressors. ~P discussed coping skills and supports that can be implemented to manage increased anxiety and stressors. [facility] discussed potential of resuming counseling, even if for monthly visits to process ongoing stressors. ~P encouraged patient to follow- up on referrals as discussed with PCP Last Documented On 4 10:08AM ; [facility] Discussed nutritional needs teach healthy choices including fruits and vegetables Last Documented On 4 4:46PM ; [facility] Patient education about a pr oper diet Last Documented On 4 4:46PM ; [facility] Discussed concerns about exe rcise : promote physical activity Last Documented On 4 4:46PM ; [facility] Not requesting contraception Last Documented On 4 4:46PM ; [facility] offered active and suppo rtive listening and processed current stressors related to getting medications. ~P discussed coping skills and supports to implement in daily routine. ~P discussed progress patient has felt they have made recently and encouraged continued follow-up with providers to address health Last Documented On 4 5:16PM ; [facility] Discussed nutritional needs teach healthy choices including fruits and vegetables Last Documented On 4 7:14PM ; [facility] Patient education about a pr oper diet Last Documented On 4 7:14PM ; [facility] Discussed concerns about exe rcise : promote physical activity Last Documented On 4 7:14PM ; [facility] Not requesting contraception Last Documented On 4 7:14PM ; [facility] Discussed nutritional needs teach healthy choices including fruits and vegetables Last Documented On 3 5:15PM ; [facility] Patient education about a pr oper diet Last Documented On 3 5:15PM ; [facility] Discussed concerns about exe rcise : promote physical activity Last Documented On 3 5:15PM ; [facility] Discussed nutritional needs teach healthy choices including fruits and vegetables Last Documented On 2 1:42PM ; [facility] Patient education about a pr oper diet Last Documented On 2 1:42PM ; [facility] Discussed concerns about exe rcise : promote physical activity Last Documented On 2 1:42PM ; [facility] listening and supportive feedback; normalized emotions and feelings, also provided pt time to process any current stressors. ~Promoted and encouraged follow-through with scheduling psychiatric services Last Documented On 2 3:21PM ; [facility] provided supportive, empa thic listening and reflective feedback. ~Explored, encouraged, and supported the pt to discuss current sx/mood, assess risk for harm/need, coping mechanisms, support network and safety planning. ~Supported pt's plan to f/up with Dr. Carney, as planned at [place], [place]. ~Encouraged pt to use safety plan, if needed to ensure she remains safe Last Documented On 2 2:27PM ; [facility] Discussed nutritional needs teach healthy choices including fruits and vegetables Last Documented On 2 3:20PM ; [facility] Patient education about a pr oper diet Last Documented On 2 3:20PM ; [facility] Discussed concerns about exe rcise : promote physical activity ~ ~Will restart trazodone and prazosin ~ ~Patient is planning to have brother stay with her for a few days for emotional support ~ ~Follow up with PCP at next scheduled visit ~ ~Call psychiatrist office to schedule appt ~ ~Call counselor Last Documented On 2 9:35AM ; [facility] Provided supportive listenin g and empathic feedback; encouraged, explored, and supported the pt as she processed current symptoms, Issues, and concerns. ~Discussed past tx and explored current needs/options. Acknowledged and validated pt's thoughts and emotions. ~Explored coping mechanisms and support network; utilized opportunity for safety planning; promoted seeking positive support and seeking help, as needed Last Documented On 2 3:28PM ; [facility] provided active listenin g, support and helped pt process though current symptoms and stressor(s). Discussed and explored past effectiveness of medication; identified objectives and future goals; promoted use of healthy coping mechanisms, and self-care practices Last Documented On 2 3:19PM ; [facility] Reviewed side effects and Ri sks/Benefits analysis Last Documented On 2 3:19PM ; [facility] Discussed nutritional needs teach healthy choices including fruits and vegetables Last Documented On 2 3:15PM ; [facility] Patient education about a pr oper diet Last Documented On 2 3:15PM ; [facility] Discussed concerns about exe rcise : promote physical activity Last Documented On 2 3:15PM ; [facility] introduced pt to HPWO in tegrated model of care ~[facility] offered active listening and supportive feedback; normalized emotions and feelings, also provided pt time to process any current stressors ~[facility] discussed potential benefits of counseling and supported re-engaging, as needed. ~[facility] encouraged pt to continue to make time to implement self-care regimen and use coping methods, as needed Last Documented On 2 4:07PM ; [facility] Discussed nutritional needs teach healthy choices including fruits and vegetables Last Documented On 2 3:15PM ; [facility] Patient education about a pr oper diet Last Documented On 2 3:15PM ; [facility] Inquiry and counseling about medication administration and compliance Last Documented On 2 7:37PM ; [facility] Discussed concerns about exe rcise : promote physical activity Last Documented On 2 3:15PM ; [facility] Patient goals discussed Last Documented On 2 7:37PM ; [facility] Ansewred pt's questions re B orderlline Personality D/O and Bipolar D/O raised by psychiatrist at [facility]. ~Validated and normalized patient?s feelings while assisting to process recent events Last Documented On 1 1:33AM ; [facility] Discussed nutritional needs teach healthy choices including fruits and vegetables Last Documented On 1 2:04PM ; [facility] Patient education about a pr oper diet Last Documented On 1 2:04PM ; [facility] Discussed concerns about exe rcise : promote physical activity Last Documented On 1 2:04PM ; [facility] provided active listenin g, support and helped patient process through current symptoms and stressors with ongoing mental health concerns and medication changes. ~[facility] discussed coping skills and supports that patient is implementing. discussed implementing coping skills as discussed with counseling and attending weekly appointments as scheduled with counselor. Patient was encouraged to continue writing down concerns with medications and discuss with providers. ~P reminded patient of crisis resources should they be needed. Patient reports having crisis resources and could return to ER Last Documented On 1 10:17AM ; [facility] Patient education about a pr oper diet Last Documented On 1 5:17PM ; [facility] Patient education about meal planning Last Documented On 1 5:17PM ; [facility] Education about changing eat ing habits Last Documented On 1 5:17PM ; [facility] Patient education about high fiber diet Last Documented On 1 5:17PM ; [facility] Patient education about low fat diet Last Documented On 1 5:17PM ; [facility] Patient education about low cholesterol diet Last Documented On 1 5:17PM ; [facility] Patient education about low carbohydrate diet Last Documented On 1 5:17PM ; [facility] Patient education about high protein diet Last Documented On 1 5:17PM ; [facility] offered active and suppo rtive listening, normalized emotions and feelings, and processed current stressors. ~[facility] discussed resources for finding a counselor and provided list of local resources. ~[facility] discussed patients coping skills and supports and encouraged patient to continue to implement. [facility] reminded patient of crisis resources should they be needed Last Documented On 7:15PM ; [facility] Discussed nutritional needs teach healthy choices including fruits and vegetables Last Documented On 11:38AM ; [facility] Patient education about a pr oper diet Last Documented On 1 11:38AM ; [facility] Patient education about a pr oper diet Last Documented On 1 12:19PM ; [facility] Patient education about meal planning Last Documented On 1 12:19PM ; [facility] Education about changing eat ing habits Last Documented On 1 12:19PM ; [facility] Patient education about high fiber diet Last Documented On 12:19PM ; [facility] Patient education about low fat diet Last Documented On 1 12:19PM ; [facility] Patient education about low cholesterol diet Last Documented On 1 12:19PM ; [facility] Patient education about low carbohydrate diet Last Documented On 1 12:19PM ; [facility] Patient education about high protein diet Last Documented On 1 12:19PM ; [facility] Discussed concerns about exe rcise : promote physical activity Last Documented On 1 11:38AM ; [facility] provided active listenin g, support and helped patient process through current symptoms and stressors related to family conflict. ~[facility] discussed coping skills and supports with patient that can be implemented and reminded patient of ways to access additional resources. ~[facility] discussed crisis resources and plan. Patient has crisis resources still available should they be needed Last Documented On 1 7:04PM ; [facility] Discussed nutritional needs teach healthy choices including fruits and vegetables Last Documented On 1 3:57PM ; [facility] Patient education about a pr oper diet Last Documented On 1 3:57PM ; [facility] Discussed concerns about exe rcise : promote physical activity Last Documented On 1 3:57PM ; [facility] integrated model of care. [facility] and PCP reassured patient of not sharing information with anyone unless she has signed a release for us to do so. ~P provided active listening, support and helped patient process through current symptoms and stressors. ~P discussed establishing counseling and psychiatry. [facility] discussed EMDR therapy and ways to find provider who does this type of therapy. ~[facility] discussed crisis resources should mood worsen, [facility] provided text hotline number for crisis. [facility] reviewed crisis plan with patient and patient is able to contact positive supports and family when feeling down Last Documented On 1 11:46AM ; [facility] Discussed nutritional needs teach healthy choices including fruits and vegetables Last Documented On 1 2:11PM ; [facility] Patient education about a pr oper diet Last Documented On 1 2:11PM ; [facility] Discussed concerns about exe rcise : promote physical activity Last Documented On 1 2:11PM ; [facility] Work Phone: Instructions Includes: Instructions for all patient encounters Education and Decision Aids were provided during visit for: P offered active and suppo rtive listening and processed recent stressors. ~[facility] discussed coping skills and supports to implement in managing increased anxiety such as tools learned previously in therapy. ~P discussed sleep hygiene strategies that can be implemented. ~[facility] encouraged patient to follow-up with specialists as scheduled Last Documented On 4 3:26PM ; [facility] Discussed nutritional needs teach healthy choices including fruits and vegetables Last Documented On 4 4:51PM ; [facility] Patient education about a pr oper diet Last Documented On 4 4:51PM ; [facility] Discussed concerns about exe rcise : promote physical activity Last Documented On 4 4:51PM ; [facility] Referred Patient to a Diabet es Self-Management Program Last Documented On 4 5:22PM ; [facility] offered active and suppo rtive listening and processed current stressors. ~P discussed coping skills and supports that can be implemented to manage increased anxiety and stressors. P discussed potential of resuming counseling, even if for monthly visits to process ongoing stressors. ~[facility] encouraged patient to follow- up on referrals as discussed with PCP Last Documented On 4 10:08AM ; [facility] Discussed nutritional needs teach healthy choices including fruits and vegetables Last Documented On 4 4:46PM ; [facility] Patient education about a pr oper diet Last Documented On 4 4:46PM ; [facility] Discussed concerns about exe rcise : promote physical activity Last Documented On 4 4:46PM ; [facility] Not requesting contraception Last Documented On 4 4:46PM ; [facility] offered active and suppo rtive listening and processed current stressors related to getting medications. ~[facility] discussed coping skills and supports to implement in daily routine. ~[facility] discussed progress patient has felt they have made recently and encouraged continued follow-up with providers to address health Last Documented On 4 5:16PM ; [facility] Discussed nutritional needs teach healthy choices including fruits and vegetables Last Documented On 4 7:14PM ; [facility] Patient education about a pr oper diet Last Documented On 4 7:14PM ; [facility] Discussed concerns about exe rcise : promote physical activity Last Documented On 4 7:14PM ; [facility] Not requesting contraception Last Documented On 4 7:14PM ; [facility] Discussed nutritional needs teach healthy choices including fruits and vegetables Last Documented On 3 5:15PM ; [facility] Patient education about a pr oper diet Last Documented On 3 5:15PM ; [facility] Discussed concerns about exe rcise : promote physical activity Last Documented On 3 5:15PM ; [facility] Discussed nutritional needs teach healthy choices including fruits and vegetables Last Documented On 2 1:42PM ; [facility] Patient education about a pr oper diet Last Documented On 2 1:42PM ; [facility] Discussed concerns about exe rcise : promote physical activity Last Documented On 2 1:42PM ; [facility] and supportive feedback; normalized emotions and feelings, also provided pt time to process any current stressors. ~Promoted and encouraged follow-through with scheduling psychiatric services Last Documented On 2 3:21PM ; [facility] provided supportive, empa thic listening and reflective feedback. ~Explored, encouraged, and supported the pt to discuss current sx/mood, assess risk for harm/need, coping mechanisms, support network and safety planning. ~Supported pt's plan to f/up with Dr. Carney, as planned at [place], [place]. ~Encouraged pt to use safety plan, if needed to ensure she remains safe Last Documented On 2 2:27PM ; [facility] Discussed nutritional needs teach healthy choices including fruits and vegetables Last Documented On 2 3:20PM ; [facility] Patient education about a pr oper diet Last Documented On 2 3:20PM ; [facility] Discussed concerns about exe rcise : promote physical activity ~ ~Will restart trazodone and prazosin ~ ~Patient is planning to have brother stay with her for a few days for emotional support ~ ~Follow up with PCP at next scheduled visit ~ ~Call psychiatrist office to schedule appt ~ ~Call counselor Last Documented On 2 9:35AM ; [facility] Provided supportive listenin g and empathic feedback; encouraged, explored, and supported the pt as she processed current symptoms, Issues, and concerns. ~Discussed past tx and explored current needs/options. Acknowledged and validated pt's thoughts and emotions. ~Explored coping mechanisms and support network; utilized opportunity for safety planning; promoted seeking positive support and seeking help, as needed Last Documented On 2 3:28PM ; [facility] provided active listenin g, support and helped pt process though current symptoms and stressor(s). Discussed and explored past effectiveness of medication; identified objectives and future goals; promoted use of healthy coping mechanisms, and self-care practices Last Documented On 2 3:19PM ; [facility] Reviewed side effects and Ri sks/Benefits analysis Last Documented On 2 3:19PM ; [facility] Discussed nutritional needs teach healthy choices including fruits and vegetables Last Documented On 2 3:15PM ; [facility] Patient education about a pr oper diet Last Documented On 2 3:15PM ; [facility] Discussed concerns about exe rcise : promote physical activity Last Documented On 2 3:15PM ; [facility] introduced pt to HPWO in tegrated model of care ~[facility] offered active listening and supportive feedback; normalized emotions and feelings, also provided pt time to process any current stressors ~[facility] discussed potential benefits of counseling and supported re-engaging, as needed. ~[facility] encouraged pt to continue to make time to implement self-care regimen and use coping methods, as needed Last Documented On 2 4:07PM ; [facility] Discussed nutritional needs teach healthy choices including fruits and vegetables Last Documented On 2 3:15PM ; [facility] Patient education about a pr oper diet Last Documented On 2 3:15PM ; [facility] Inquiry and counseling about medication administration and compliance Last Documented On 2 7:37PM ; [facility] Discussed concerns about exe rcise : promote physical activity Last Documented On 2 3:15PM ; [facility] Patient goals discussed Last Documented On 2 7:37PM ; [facility] Ansewred pt's questions re B orderlline Personality D/O and Bipolar D/O raised by psychiatrist at [facility]. ~Validated and normalized patient?s feelings while assisting to process recent events Last Documented On 1 1:33AM ; [facility] Discussed nutritional needs teach healthy choices including fruits and vegetables Last Documented On 1 2:04PM ; [facility] Patient education about a pr oper diet Last Documented On 1 2:04PM ; [facility] Discussed concerns about exe rcise : promote physical activity Last Documented On 1 2:04PM ; [facility] provided active listenin g, support and helped patient process through current symptoms and stressors with ongoing mental health concerns and medication changes. ~[facility] discussed coping skills and supports that patient is implementing. discussed implementing coping skills as discussed with counseling and attending weekly appointments as scheduled with counselor. Patient was encouraged to continue writing down concerns with medications and discuss with providers. ~P reminded patient of crisis resources should they be needed. Patient reports having crisis resources and could return to ER Last Documented On 1 10:17AM ; [facility] Patient education about a pr oper diet Last Documented On 1 5:17PM ; [facility] Patient education about meal planning Last Documented On 5:17PM ; [facility] Education about changing eat ing habits Last Documented On 5:17PM ; [facility] Patient education about high fiber diet Last Documented On 1 5:17PM ; [facility] Patient education about low fat diet Last Documented On 1 5:17PM ; [facility] Patient education about low cholesterol diet Last Documented On 1 5:17PM ; [facility] Patient education about low carbohydrate diet Last Documented On 1 5:17PM ; [facility] Patient education about high protein diet Last Documented On 1 5:17PM ; [facility] offered active and suppo rtive listening, normalized emotions and feelings, and processed current stressors. ~P discussed resources for finding a counselor and provided list of local resources. ~P discussed patients coping skills and supports and encouraged patient to continue to implement. ~P reminded patient of crisis resources should they be needed Last Documented On 1 7:15PM ; [facility] Discussed nutritional needs teach healthy choices including fruits and vegetables Last Documented On 1 11:38AM ; [facility] Patient education about a pr oper diet Last Documented On 1 11:38AM ; [facility] Patient education about a pr oper diet Last Documented On 1 12:19PM ; [facility] Patient education about meal planning Last Documented On 1 12:19PM ; [facility] Education about changing eat ing habits Last Documented On 1 12:19PM ; [facility] Patient education about high fiber diet Last Documented On 1 12:19PM ; [facility] Patient education about low fat diet Last Documented On 1 12:19PM ; [facility] Patient education about low cholesterol diet Last Documented On 1 12:19PM ; [facility] Patient education about low carbohydrate diet Last Documented On 1 12:19PM ; [facility] Patient education about high protein diet Last Documented On 1 12:19PM ; [facility] Discussed concerns about exe rcise : promote physical activity Last Documented On 1 11:38AM ; [facility] provided active listenin g, support and helped patient process through current symptoms and stressors related to family conflict. ~[facility] discussed coping skills and supports with patient that can be implemented and reminded patient of ways to access additional resources. ~[facility] discussed crisis resources and plan. Patient has crisis resources still available should they be needed Last Documented On 1 7:04PM ; [facility] Discussed nutritional needs teach healthy choices including fruits and vegetables Last Documented On 1 3:57PM ; [facility] Patient education about a pr oper diet Last Documented On 1 3:57PM ; [facility] Discussed concerns about exe rcise : promote physical activity Last Documented On 1 3:57PM ; [facility] integrated model of care. [facility] and PCP reassured patient of not sharing information with anyone unless she has signed a release for us to do so. ~[facility] provided active listening, support and helped patient process through current symptoms and stressors. ~[facility] discussed establishing counseling and psychiatry. P discussed EMDR therapy and ways to find provider who does this type of therapy. ~[facility] discussed crisis resources should mood worsen, [facility] provided text hotline number for crisis. [facility] reviewed crisis plan with patient and patient is able to contact positive supports and family when feeling down Last Documented On 1 11:46AM ; [facility] Discussed nutritional needs teach healthy choices including fruits and vegetables Last Documented On 1 2:11PM ; [facility] Patient education about a pr oper diet Last Documented On 1 2:11PM ; [facility] Discussed concerns about exe rcise : promote physical activity Last Documented On 1 2:11PM ; [facility] Work Phone: Instructions Includes: Instructions for all patient encounters Education and Decision Aids were provided during visit for: ~*[facility] offered active and sup portive listening, normalized emotions and feelings, and processed ~current stressors. ~*Discussed engageing in counseling and looking into EMDR to address PTSD and increased nightmares Last Documented On 4 4:14PM ; [facility] Discussed nutritional needs teach healthy choices including fruits and vegetables Last Documented On 4 4:33PM ; [facility] Patient education about a pr oper diet Last Documented On 4 4:33PM ; [facility] Discussed concerns about exe rcise : promote physical activity Last Documented On 4 4:33PM ; [facility] offered active and suppo rtive listening and processed recent stressors. ~[facility] discussed coping skills and supports to implement in managing increased anxiety such as tools learned previously in therapy. ~[facility] discussed sleep hygiene strategies that can be implemented. ~[facility] encouraged patient to follow-up with specialists as scheduled Last Documented On 4 3:26PM ; [facility] Discussed nutritional needs teach healthy choices including fruits and vegetables Last Documented On 4 4:51PM ; [facility] Patient education about a pr oper diet Last Documented On 4 4:51PM ; [facility] Discussed concerns about exe rcise : promote physical activity Last Documented On 4 4:51PM ; [facility] Referred Patient to a Diabet es Self-Management Program Last Documented On 4 5:22PM ; [facility] offered active and suppo rtive listening and processed current stressors. ~P discussed coping skills and supports that can be implemented to manage increased anxiety and stressors. P discussed potential of resuming counseling, even if for monthly visits to process ongoing stressors. ~[facility] encouraged patient to follow- up on referrals as discussed with PCP Last Documented On 4 10:08AM ; [facility] Discussed nutritional needs teach healthy choices including fruits and vegetables Last Documented On 4 4:46PM ; [facility] Patient education about a pr oper diet Last Documented On 4 4:46PM ; [facility] Discussed concerns about exe rcise : promote physical activity Last Documented On 4 4:46PM ; [facility] Not requesting contraception Last Documented On 4 4:46PM ; [facility] offered active and suppo rtive listening and processed current stressors related to getting medications. ~[facility] discussed coping skills and supports to implement in daily routine. ~[facility] discussed progress patient has felt they have made recently and encouraged continued follow-up with providers to address health Last Documented On 4 5:16PM ; [facility] Discussed nutritional needs teach healthy choices including fruits and vegetables Last Documented On 4 7:14PM ; [facility] Patient education about a pr oper diet Last Documented On 4 7:14PM ; [facility] Discussed concerns about exe rcise : promote physical activity Last Documented On 4 7:14PM ; [facility] Not requesting contraception Last Documented On 4 7:14PM ; [facility] Discussed nutritional needs teach healthy choices including fruits and vegetables Last Documented On 3 5:15PM ; [facility] Patient education about a pr oper diet Last Documented On 3 5:15PM ; [facility] Discussed concerns about exe rcise : promote physical activity Last Documented On 3 5:15PM ; [facility] Discussed nutritional needs teach healthy choices including fruits and vegetables Last Documented On 2 1:42PM ; [facility] Patient education about a pr oper diet Last Documented On 2 1:42PM ; [facility] Discussed concerns about exe rcise : promote physical activity Last Documented On 2 1:42PM ; [facility] offered active listening and supportive feedback; normalized emotions and feelings, also provided pt time to process any current stressors. ~Promoted and encouraged follow-through with scheduling psychiatric services Last Documented On 2 3:21PM ; [facility] provided supportive, empa thic listening and reflective feedback. ~Explored, encouraged, and supported the pt to discuss current sx/mood, assess risk for harm/need, coping mechanisms, support network and safety planning. ~Supported pt's plan to f/up with Dr. Carney, as planned at [place], [place]. ~Encouraged pt to use safety plan, if needed to ensure she remains safe Last Documented On 2 2:27PM ; [facility] Discussed nutritional needs teach healthy choices including fruits and vegetables Last Documented On 2 3:20PM ; [facility] Patient education about a pr oper diet Last Documented On 2 3:20PM ; [facility] Discussed concerns about exe rcise : promote physical activity ~ ~Will restart trazodone and prazosin ~ ~Patient is planning to have brother stay with her for a few days for emotional support ~ ~Follow up with PCP at next scheduled visit ~ ~Call psychiatrist office to schedule appt ~ ~Call counselor Last Documented On 2 9:35AM ; [facility] Provided supportive listenin g and empathic feedback; encouraged, explored, and supported the pt as she processed current symptoms, Issues, and concerns. ~Discussed past tx and explored current needs/options. Acknowledged and validated pt's thoughts and emotions. ~Explored coping mechanisms and support network; utilized opportunity for safety planning; promoted seeking positive support and seeking help, as needed Last Documented On 2 3:28PM ; [facility] provided active listenin g, support and helped pt process though current symptoms and stressor(s). Discussed and explored past effectiveness of medication; identified objectives and future goals; promoted use of healthy coping mechanisms, and self-care practices Last Documented On 2 3:19PM ; [facility] Reviewed side effects and Ri sks/Benefits analysis Last Documented On 2 3:19PM ; [facility] Discussed nutritional needs teach healthy choices including fruits and vegetables Last Documented On 2 3:15PM ; [facility] Patient education about a pr oper diet Last Documented On 2 3:15PM ; [facility] Discussed concerns about exe rcise : promote physical activity Last Documented On 2 3:15PM ; [facility] introduced pt to HPWO in tegrated model of care ~[facility] offered active listening and supportive feedback; normalized emotions and feelings, also provided pt time to process any current stressors ~[facility] discussed potential benefits of counseling and supported re-engaging, as needed. ~[facility] encouraged pt to continue to make time to implement self-care regimen and use coping methods, as needed Last Documented On 2 4:07PM ; [facility] Discussed nutritional needs teach healthy choices including fruits and vegetables Last Documented On 2 3:15PM ; [facility] Patient education about a pr oper diet Last Documented On 2 3:15PM ; [facility] Inquiry and counseling about medication administration and compliance Last Documented On 2 7:37PM ; [facility] Discussed concerns about exe rcise : promote physical activity Last Documented On 2 3:15PM ; [facility] Patient goals discussed Last Documented On 2 7:37PM ; [facility] Ansewred pt's questions re B orderlline Personality D/O and Bipolar D/O raised by psychiatrist at [facility]. ~Validated and normalized patient?s feelings while assisting to process recent events Last Documented On 1 1:33AM ; [facility] Discussed nutritional needs teach healthy choices including fruits and vegetables Last Documented On 1 2:04PM ; [facility] Patient education about a pr oper diet Last Documented On 1 2:04PM ; [facility] Discussed concerns about exe rcise : promote physical activity Last Documented On 1 2:04PM ; [facility] provided active listenin g, support and helped patient process through current symptoms and stressors with ongoing mental health concerns and medication changes. ~[facility] discussed coping skills and supports that patient is implementing. discussed implementing coping skills as discussed with counseling and attending weekly appointments as scheduled with counselor. Patient was encouraged to continue writing down concerns with medications and discuss with providers. ~[facility] reminded patient of crisis resources should they be needed. Patient reports having crisis resources and could return to ER Last Documented On 1 10:17AM ; [facility] Patient education about a pr oper diet Last Documented On 1 5:17PM ; [facility] Patient education about meal planning Last Documented On 1 5:17PM ; [facility] Education about changing eat ing habits Last Documented On 1 5:17PM ; [facility] Patient education about high fiber diet Last Documented On 1 5:17PM ; [facility] Patient education about low fat diet Last Documented On 1 5:17PM ; [facility] Patient education about low cholesterol diet Last Documented On 1 5:17PM ; [facility] Patient education about low carbohydrate diet Last Documented On 1 5:17PM ; [facility] Patient education about high protein diet Last Documented On 1 5:17PM ; [facility] offered active and suppo rtive listening, normalized emotions and feelings, and processed current stressors. ~[facility] discussed resources for finding a counselor and provided list of local resources. ~[facility] discussed patients coping skills and supports and encouraged patient to continue to implement. [facility] reminded patient of crisis resources should they be needed Last Documented On 1 7:15PM ; [facility] Discussed nutritional needs teach healthy choices including fruits and vegetables Last Documented On 1 11:38AM ; [facility] Patient education about a pr oper diet Last Documented On 1 11:38AM ; [facility] Patient education about a pr oper diet Last Documented On 1 12:19PM ; [facility] Patient education about meal planning Last Documented On 1 12:19PM ; [facility] Education about changing eat ing habits Last Documented On 1 12:19PM ; [facility] Patient education about high fiber diet Last Documented On 1 12:19PM ; [facility] Patient education about low fat diet Last Documented On 12:19PM ; [facility] Patient education about low cholesterol diet Last Documented On 1 12:19PM ; [facility] Patient education about low carbohydrate diet Last Documented On 12:19PM ; [facility] Patient education about high protein diet Last Documented On 1 12:19PM ; [facility] Discussed concerns about exe rcise : promote physical activity Last Documented On 1 11:38AM ; [facility], support and helped patient process through current symptoms and stressors related to family conflict. ~P discussed coping skills and supports with patient that can be implemented and reminded patient of ways to access additional resources. ~[facility] discussed crisis resources and plan. Patient has crisis resources still available should they be needed Last Documented On 1 7:04PM ; [facility] Discussed nutritional needs teach healthy choices including fruits and vegetables Last Documented On 1 3:57PM ; [facility] Patient education about a pr oper diet Last Documented On 1 3:57PM ; [facility] Discussed concerns about exe rcise : promote physical activity Last Documented On 1 3:57PM ; [facility] integrated model of care. [facility] and PCP reassured patient of not sharing information with anyone unless she has signed a release for us to do so. ~P provided active listening, support and helped patient process through current symptoms and stressors. ~[facility] discussed establishing counseling and psychiatry. [facility] discussed EMDR therapy and ways to find provider who does this type of therapy. ~[facility] discussed crisis resources should mood worsen, [facility] provided text hotline number for crisis. [facility] reviewed crisis plan with patient and patient is able to contact positive supports and family when feeling down Last Documented On 1 11:46AM ; [facility] Discussed nutritional needs teach healthy choices including fruits and vegetables Last Documented On 1 2:11PM ; [facility] Patient education about a pr oper diet Last Documented On 1 2:11PM ; [facility] Discussed concerns about exe rcise : promote physical activity Last Documented On 1 2:11PM ; [facility] Work Phone: Instructions Includes: Instructions for all patient encounters Education and Decision Aids were provided during visit for: ~*[facility] offered active and sup portive listening, normalized emotions and feelings, and processed ~current stressors. ~*Discussed engageing in counseling and looking into EMDR to address PTSD and increased nightmares Last Documented On 4 4:14PM ; [facility] Discussed nutritional needs teach healthy choices including fruits and vegetables Last Documented On 4 4:33PM ; [facility] Patient education about a pr oper diet Last Documented On 4 4:33PM ; [facility] Discussed concerns about exe rcise : promote physical activity Last Documented On 4 4:33PM ; [facility] offered active and suppo rtive listening and processed recent stressors. ~[facility] discussed coping skills and supports to implement in managing increased anxiety such as tools learned previously in therapy. ~[facility] discussed sleep hygiene strategies that can be implemented. ~[facility] encouraged patient to follow-up with specialists as scheduled Last Documented On 4 3:26PM ; [facility] Discussed nutritional needs teach healthy choices including fruits and vegetables Last Documented On 4 4:51PM ; [facility] Patient education about a pr oper diet Last Documented On 4 4:51PM ; [facility] Discussed concerns about exe rcise : promote physical activity Last Documented On 4 4:51PM ; [facility] Referred Patient to a Diabet es Self-Management Program Last Documented On 4 5:22PM ; [facility] offered active and suppo rtive listening and processed current stressors. ~P discussed coping skills and supports that can be implemented to manage increased anxiety and stressors. P discussed potential of resuming counseling, even if for monthly visits to process ongoing stressors. ~[facility] encouraged patient to follow- up on referrals as discussed with PCP Last Documented On 4 10:08AM ; [facility] Discussed nutritional needs teach healthy choices including fruits and vegetables Last Documented On 4 4:46PM ; [facility] Patient education about a pr oper diet Last Documented On 4 4:46PM ; [facility] Discussed concerns about exe rcise : promote physical activity Last Documented On 4 4:46PM ; [facility] Not requesting contraception Last Documented On 4 4:46PM ; [facility] offered active and suppo rtive listening and processed current stressors related to getting medications. ~[facility] discussed coping skills and supports to implement in daily routine. ~[facility] discussed progress patient has felt they have made recently and encouraged continued follow-up with providers to address health Last Documented On 4 5:16PM ; [facility] Discussed nutritional needs teach healthy choices including fruits and vegetables Last Documented On 4 7:14PM ; [facility] Patient education about a pr oper diet Last Documented On 4 7:14PM ; [facility] Discussed concerns about exe rcise : promote physical activity Last Documented On 4 7:14PM ; [facility] Not requesting contraception Last Documented On 4 7:14PM ; [facility] Discussed nutritional needs teach healthy choices including fruits and vegetables Last Documented On 3 5:15PM ; [facility] Patient education about a pr oper diet Last Documented On 3 5:15PM ; [facility] Discussed concerns about exe rcise : promote physical activity Last Documented On 3 5:15PM ; [facility] Discussed nutritional needs teach healthy choices including fruits and vegetables Last Documented On 2 1:42PM ; [facility] Patient education about a pr oper diet Last Documented On 2 1:42PM ; [facility] Discussed concerns about exe rcise : promote physical activity Last Documented On 2 1:42PM ; [facility] offered active listening and supportive feedback; normalized emotions and feelings, also provided pt time to process any current stressors. ~Promoted and encouraged follow-through with scheduling psychiatric services Last Documented On 2 3:21PM ; [facility] provided supportive, empa thic listening and reflective feedback. ~Explored, encouraged, and supported the pt to discuss current sx/mood, assess risk for harm/need, coping mechanisms, support network and safety planning. ~Supported pt's plan to f/up with Dr. Carney, as planned at [place], [place]. ~Encouraged pt to use safety plan, if needed to ensure she remains safe Last Documented On 2 2:27PM ; [facility] Discussed nutritional needs teach healthy choices including fruits and vegetables Last Documented On 2 3:20PM ; [facility] Patient education about a pr oper diet Last Documented On 2 3:20PM ; [facility] Discussed concerns about exe rcise : promote physical activity ~ ~Will restart trazodone and prazosin ~ ~Patient is planning to have brother stay with her for a few days for emotional support ~ ~Follow up with PCP at next scheduled visit ~ ~Call psychiatrist office to schedule appt ~ ~Call counselor Last Documented On 2 9:35AM ; [facility] Provided supportive listenin g and empathic feedback; encouraged, explored, and supported the pt as she processed current symptoms, Issues, and concerns. ~Discussed past tx and explored current needs/options. Acknowledged and validated pt's thoughts and emotions. ~Explored coping mechanisms and support network; utilized opportunity for safety planning; promoted seeking positive support and seeking help, as needed Last Documented On 2 3:28PM ; [facility] provided active listenin g, support and helped pt process though current symptoms and stressor(s). Discussed and explored past effectiveness of medication; identified objectives and future goals; promoted use of healthy coping mechanisms, and self-care practices Last Documented On 2 3:19PM ; [facility] Reviewed side effects and Ri sks/Benefits analysis Last Documented On 2 3:19PM ; [facility] Discussed nutritional needs teach healthy choices including fruits and vegetables Last Documented On 2 3:15PM ; [facility] Patient education about a pr oper diet Last Documented On 2 3:15PM ; [facility] Discussed concerns about exe rcise : promote physical activity Last Documented On 2 3:15PM ; [facility] introduced pt to [facility]WO in tegrated model of care ~[facility] offered active listening and supportive feedback; normalized emotions and feelings, also provided pt time to process any current stressors ~[facility] discussed potential benefits of counseling and supported re-engaging, as needed. ~[facility] encouraged pt to continue to make time to implement self-care regimen and use coping methods, as needed Last Documented On 2 4:07PM ; [facility] Discussed nutritional needs teach healthy choices including fruits and vegetables Last Documented On 2 3:15PM ; [facility] Patient education about a pr oper diet Last Documented On 2 3:15PM ; [facility] Inquiry and counseling about medication administration and compliance Last Documented On 2 7:37PM ; [facility] Discussed concerns about exe rcise : promote physical activity Last Documented On 2 3:15PM ; [facility] Patient goals discussed Last Documented On 2 7:37PM ; [facility] Ansewred pt's questions re B orderlline Personality D/O and Bipolar D/O raised by psychiatrist at [facility]. ~Validated and normalized patient?s feelings while assisting to process recent events Last Documented On 1 1:33AM ; [facility] Discussed nutritional needs teach healthy choices including fruits and vegetables Last Documented On 1 2:04PM ; [facility] Patient education about a pr oper diet Last Documented On 1 2:04PM ; [facility] Discussed concerns about exe rcise : promote physical activity Last Documented On 1 2:04PM ; [facility] provided active listenin g, support and helped patient process through current symptoms and stressors with ongoing mental health concerns and medication changes. ~[facility] discussed coping skills and supports that patient is implementing. discussed implementing coping skills as discussed with counseling and attending weekly appointments as scheduled with counselor. Patient was encouraged to continue writing down concerns with medications and discuss with providers. ~[facility] reminded patient of crisis resources should they be needed. Patient reports having crisis resources and could return to ER Last Documented On 1 10:17AM ; [facility] Patient education about a pr oper diet Last Documented On 1 5:17PM ; [facility] Patient education about meal planning Last Documented On 1 5:17PM ; [facility] Education about changing eat ing habits Last Documented On 1 5:17PM ; [facility] Patient education about high fiber diet Last Documented On 1 5:17PM ; [facility] Patient education about low fat diet Last Documented On 1 5:17PM ; [facility] Patient education about low cholesterol diet Last Documented On 1 5:17PM ; [facility] Patient education about low carbohydrate diet Last Documented On 1 5:17PM ; [facility] Patient education about high protein diet Last Documented On 1 5:17PM ; [facility] offered active and suppo rtive listening, normalized emotions and feelings, and processed current stressors. ~[facility] discussed resources for finding a counselor and provided list of local resources. [facility] discussed patients coping skills and supports and encouraged patient to continue to implement. [facility] reminded patient of crisis resources should they be needed Last Documented On 1 7:15PM ; [facility] Discussed nutritional needs teach healthy choices including fruits and vegetables Last Documented On 1 11:38AM ; [facility] Patient education about a pr oper diet Last Documented On 1 11:38AM ; [facility] Patient education about a pr oper diet Last Documented On 1 12:19PM ; [facility] Patient education about meal planning Last Documented On 1 12:19PM ; [facility] Education about changing eat ing habits Last Documented On 1 12:19PM ; [facility] Patient education about high fiber diet Last Documented On 1 12:19PM ; [facility] Patient education about low fat diet Last Documented On 1 12:19PM ; [facility] Patient education about low cholesterol diet Last Documented On 1 12:19PM ; [facility] Patient education about low carbohydrate diet Last Documented On 1 12:19PM ; [facility] Patient education about high protein diet Last Documented On 12:19PM ; [facility] Discussed concerns about exe rcise : promote physical activity Last Documented On 1 11:38AM ; [facility], support and helped patient process through current symptoms and stressors related to family conflict. ~P discussed coping skills and supports with patient that can be implemented and reminded patient of ways to access additional resources. ~P discussed crisis resources and plan. Patient has crisis resources still available should they be needed Last Documented On 1 7:04PM ; [facility] Discussed nutritional needs teach healthy choices including fruits and vegetables Last Documented On 1 3:57PM ; [facility] Patient education about a pr oper diet Last Documented On 1 3:57PM ; [facility] Discussed concerns about exe rcise : promote physical activity Last Documented On 1 3:57PM ; [facility] integrated model of care. [facility] and PCP reassured patient of not sharing information with anyone unless she has signed a release for us to do so. ~P provided active listening, support and helped patient process through current symptoms and stressors. ~P discussed establishing counseling and psychiatry. [facility] discussed EMDR therapy and ways to find provider who does this type of therapy. ~[facility] discussed crisis resources should mood worsen, [facility] provided text hotline number for crisis. [facility] reviewed crisis plan with patient and patient is able to contact positive supports and family when feeling down Last Documented On 1 11:46AM ; [facility] Discussed nutritional needs teach healthy choices including fruits and vegetables Last Documented On 1 2:11PM ; [facility] Patient education about a pr oper diet Last Documented On 1 2:11PM ; [facility] Discussed concerns about exe rcise : promote physical activity Last Documented On 1 2:11PM ; [facility] Work Phone: Instructions Includes: Instructions for all patient encounters Education and Decision Aids were provided during visit for: ~*[facility] offered active and sup portive listening, normalized emotions and feelings, and processed ~current stressors. ~*Discussed engageing in counseling and looking into EMDR to address PTSD and increased nightmares Last Documented On 4 4:14PM ; [facility] Discussed nutritional needs teach healthy choices including fruits and vegetables Last Documented On 4 4:33PM ; [facility] Patient education about a pr oper diet Last Documented On 4 4:33PM ; [facility] Discussed concerns about exe rcise : promote physical activity Last Documented On 4 4:33PM ; [facility] offered active and suppo rtive listening and processed recent stressors. ~[facility] discussed coping skills and supports to implement in managing increased anxiety such as tools learned previously in therapy. ~[facility] discussed sleep hygiene strategies that can be implemented. ~[facility] encouraged patient to follow-up with specialists as scheduled Last Documented On 4 3:26PM ; [facility] Discussed nutritional needs teach healthy choices including fruits and vegetables Last Documented On 4 4:51PM ; [facility] Patient education about a pr oper diet Last Documented On 4 4:51PM ; [facility] Discussed concerns about exe rcise : promote physical activity Last Documented On 4 4:51PM ; [facility] Referred Patient to a Diabet es Self-Management Program Last Documented On 4 5:22PM ; [facility] offered active and suppo rtive listening and processed current stressors. ~P discussed coping skills and supports that can be implemented to manage increased anxiety and stressors. [facility] discussed potential of resuming counseling, even if for monthly visits to process ongoing stressors. ~[facility] encouraged patient to follow- up on referrals as discussed with PCP Last Documented On 4 10:08AM ; [facility] Discussed nutritional needs teach healthy choices including fruits and vegetables Last Documented On 4 4:46PM ; [facility] Patient education about a pr oper diet Last Documented On 4 4:46PM ; [facility] Discussed concerns about exe rcise : promote physical activity Last Documented On 4 4:46PM ; [facility] Not requesting contraception Last Documented On 4 4:46PM ; [facility] offered active and suppo rtive listening and processed current stressors related to getting medications. ~P discussed coping skills and supports to implement in daily routine. ~[facility] discussed progress patient has felt they have made recently and encouraged continued follow-up with providers to address health Last Documented On 4 5:16PM ; [facility] Discussed nutritional needs teach healthy choices including fruits and vegetables Last Documented On 4 7:14PM ; [facility] Patient education about a pr oper diet Last Documented On 4 7:14PM ; [facility] Discussed concerns about exe rcise : promote physical activity Last Documented On 4 7:14PM ; [facility] Not requesting contraception Last Documented On 4 7:14PM ; [facility] Discussed nutritional needs teach healthy choices including fruits and vegetables Last Documented On 3 5:15PM ; [facility] Patient education about a pr oper diet Last Documented On 3 5:15PM ; [facility] Discussed concerns about exe rcise : promote physical activity Last Documented On 3 5:15PM ; [facility] Discussed nutritional needs teach healthy choices including fruits and vegetables Last Documented On 2 1:42PM ; [facility] Patient education about a pr oper diet Last Documented On 2 1:42PM ; [facility] Discussed concerns about exe rcise : promote physical activity Last Documented On 2 1:42PM ; [facility] offered active listening and supportive feedback; normalized emotions and feelings, also provided pt time to process any current stressors. ~Promoted and encouraged follow-through with scheduling psychiatric services Last Documented On 2 3:21PM ; [facility] provided supportive, empa thic listening and reflective feedback. ~Explored, encouraged, and supported the pt to discuss current sx/mood, assess risk for harm/need, coping mechanisms, support network and safety planning. ~Supported pt's plan to f/up with Dr. Carney, as planned at [place], [place]. ~Encouraged pt to use safety plan, if needed to ensure she remains safe Last Documented On 2 2:27PM ; [facility] Discussed nutritional needs teach healthy choices including fruits and vegetables Last Documented On 2 3:20PM ; [facility] Patient education about a pr oper diet Last Documented On 2 3:20PM ; [facility] Discussed concerns about exe rcise : promote physical activity ~ ~Will restart trazodone and prazosin ~ ~Patient is planning to have brother stay with her for a few days for emotional support ~ ~Follow up with PCP at next scheduled visit ~ ~Call psychiatrist office to schedule appt ~ ~Call counselor Last Documented On 2 9:35AM ; [facility] Provided supportive listenin g and empathic feedback; encouraged, explored, and supported the pt as she processed current symptoms, Issues, and concerns. ~Discussed past tx and explored current needs/options. Acknowledged and validated pt's thoughts and emotions. ~Explored coping mechanisms and support network; utilized opportunity for safety planning; promoted seeking positive support and seeking help, as needed Last Documented On 2 3:28PM ; [facility] provided active listenin g, support and helped pt process though current symptoms and stressor(s). Discussed and explored past effectiveness of medication; identified objectives and future goals; promoted use of healthy coping mechanisms, and self-care practices Last Documented On 2 3:19PM ; [facility] Reviewed side effects and Ri sks/Benefits analysis Last Documented On 2 3:19PM ; [facility] Discussed nutritional needs teach healthy choices including fruits and vegetables Last Documented On 2 3:15PM ; [facility] Patient education about a pr oper diet Last Documented On 2 3:15PM ; [facility] Discussed concerns about exe rcise : promote physical activity Last Documented On 2 3:15PM ; [facility] introduced pt to [facility]WO in tegrated model of care ~P offered active listening and supportive feedback; normalized emotions and feelings, also provided pt time to process any current stressors ~P discussed potential benefits of counseling and supported re-engaging, as needed. ~P encouraged pt to continue to make time to implement self-care regimen and use coping methods, as needed Last Documented On 2 4:07PM ; [facility] Discussed nutritional needs teach healthy choices including fruits and vegetables Last Documented On 2 3:15PM ; [facility] Patient education about a pr oper diet Last Documented On 2 3:15PM ; [facility] Inquiry and counseling about medication administration and compliance Last Documented On 2 7:37PM ; [facility] Discussed concerns about exe rcise : promote physical activity Last Documented On 2 3:15PM ; [facility] Patient goals discussed Last Documented On 2 7:37PM ; [facility] Ansewred pt's questions re B orderlline Personality D/O and Bipolar D/O raised by psychiatrist at [facility]. ~Validated and normalized patient?s feelings while assisting to process recent events Last Documented On 1 1:33AM ; [facility] Discussed nutritional needs teach healthy choices including fruits and vegetables Last Documented On 1 2:04PM ; [facility] Patient education about a pr oper diet Last Documented On 1 2:04PM ; [facility] Discussed concerns about exe rcise : promote physical activity Last Documented On 1 2:04PM ; [facility] provided active listenin g, support and helped patient process through current symptoms and stressors with ongoing mental health concerns and medication changes. [facility] discussed coping skills and supports that patient is implementing. discussed implementing coping skills as discussed with counseling and attending weekly appointments as scheduled with counselor. Patient was encouraged to continue writing down concerns with medications and discuss with providers. [facility] reminded patient of crisis resources should they be needed. Patient reports having crisis resources and could return to ER Last Documented On 1 10:17AM ; [facility] Patient education about a pr oper diet Last Documented On 1 5:17PM ; [facility] Patient education about meal planning Last Documented On 1 5:17PM ; [facility] Education about changing eat ing habits Last Documented On 1 5:17PM ; [facility] Patient education about high fiber diet Last Documented On 1 5:17PM ; [facility] Patient education about low fat diet Last Documented On 1 5:17PM ; [facility] Patient education about low cholesterol diet Last Documented On 1 5:17PM ; [facility] Patient education about low carbohydrate diet Last Documented On 1 5:17PM ; [facility] Patient education about high protein diet Last Documented On 1 5:17PM ; [facility] offered active and suppo rtive listening, normalized emotions and feelings, and processed current stressors. [facility] discussed resources for finding a counselor and provided list of local resources. [facility] discussed patients coping skills and supports and encouraged patient to continue to implement. [facility] reminded patient of crisis resources should they be needed Last Documented On 1 7:15PM ; [facility] Discussed nutritional needs teach healthy choices including fruits and vegetables Last Documented On 1 11:38AM ; [facility] Patient education about a pr oper diet Last Documented On 1 11:38AM ; [facility] Patient education about a pr oper diet Last Documented On 1 12:19PM ; [facility] Patient education about meal planning Last Documented On 1 12:19PM ; [facility] Education about changing eat ing habits Last Documented On 1 12:19PM ; [facility] Patient education about high fiber diet Last Documented On 1 12:19PM ; [facility] Patient education about low fat diet Last Documented On 1 12:19PM ; [facility] Patient education about low cholesterol diet Last Documented On 1 12:19PM ; [facility] Patient education about low carbohydrate diet Last Documented On 1 12:19PM ; [facility] Patient education about high protein diet Last Documented On 1 12:19PM ; [facility] Discussed concerns about exe rcise : promote physical activity Last Documented On 1 11:38AM ; [facility], support and helped patient process through current symptoms and stressors related to family conflict. ~P discussed coping skills and supports with patient that can be implemented and reminded patient of ways to access additional resources. ~P discussed crisis resources and plan. Patient has crisis resources still available should they be needed Last Documented On 1 7:04PM ; [facility] Discussed nutritional needs teach healthy choices including fruits and vegetables Last Documented On 1 3:57PM ; [facility] Patient education about a pr oper diet Last Documented On 1 3:57PM ; [facility] Discussed concerns about exe rcise : promote physical activity Last Documented On 1 3:57PM ; [facility] integrated model of care. [facility] and PCP reassured patient of not sharing information with anyone unless she has signed a release for us to do so. ~P provided active listening, support and helped patient process through current symptoms and stressors. ~P discussed establishing counseling and psychiatry. [facility] discussed EMDR therapy and ways to find provider who does this type of therapy. ~P discussed crisis resources should mood worsen, [facility] provided text hotline number for crisis. [facility] reviewed crisis plan with patient and patient is able to contact positive supports and family when feeling down Last Documented On 1 11:46AM ; [facility] Discussed nutritional needs teach healthy choices including fruits and vegetables Last Documented On 1 2:11PM ; [facility] Patient education about a pr oper diet Last Documented On 1 2:11PM ; [facility] Discussed concerns about exe rcise : promote physical activity Last Documented On 1 2:11PM ; [facility] Work Phone: Instructions Includes: Instructions for all patient encounters Education and Decision Aids were provided during visit for: ~*[facility] offered active and sup portive listening, normalized emotions and feelings, and processed ~current stressors. ~*Discussed engageing in counseling and looking into EMDR to address PTSD and increased nightmares Last Documented On 4 4:14PM ; [facility] Discussed nutritional needs teach healthy choices including fruits and vegetables Last Documented On 4 4:33PM ; [facility] Patient education about a pr oper diet Last Documented On 4 4:33PM ; [facility] Discussed concerns about exe rcise : promote physical activity Last Documented On 4 4:33PM ; [facility] offered active and suppo rtive listening and processed recent stressors. ~[facility] discussed coping skills and supports to implement in managing increased anxiety such as tools learned previously in therapy. ~[facility] discussed sleep hygiene strategies that can be implemented. ~[facility] encouraged patient to follow-up with specialists as scheduled Last Documented On 4 3:26PM ; [facility] Discussed nutritional needs teach healthy choices including fruits and vegetables Last Documented On 4 4:51PM ; [facility] Patient education about a pr oper diet Last Documented On 4 4:51PM ; [facility] Discussed concerns about exe rcise : promote physical activity Last Documented On 4 4:51PM ; [facility] Referred Patient to a Diabet es Self-Management Program Last Documented On 4 5:22PM ; [facility] offered active and suppo rtive listening and processed current stressors. ~[facility] discussed coping skills and supports that can be implemented to manage increased anxiety and stressors. [facility] discussed potential of resuming counseling, even if for monthly visits to process ongoing stressors. [facility] encouraged patient to follow- up on referrals as discussed with PCP Last Documented On 4 10:08AM ; [facility] Discussed nutritional needs teach healthy choices including fruits and vegetables Last Documented On 4 4:46PM ; [facility] Patient education about a pr oper diet Last Documented On 4 4:46PM ; [facility] Discussed concerns about exe rcise : promote physical activity Last Documented On 4 4:46PM ; [facility] Not requesting contraception Last Documented On 4 4:46PM ; [facility] offered active and suppo rtive listening and processed current stressors related to getting medications. ~[facility] discussed coping skills and supports to implement in daily routine. [facility] discussed progress patient has felt they have made recently and encouraged continued follow-up with providers to address health Last Documented On 4 5:16PM ; [facility] Discussed nutritional needs teach healthy choices including fruits and vegetables Last Documented On 4 7:14PM ; [facility] Patient education about a pr oper diet Last Documented On 4 7:14PM ; [facility] Discussed concerns about exe rcise : promote physical activity Last Documented On 4 7:14PM ; [facility] Not requesting contraception Last Documented On 4 7:14PM ; [facility] Discussed nutritional needs teach healthy choices including fruits and vegetables Last Documented On 3 5:15PM ; [facility] Patient education about a pr oper diet Last Documented On 3 5:15PM ; [facility] Discussed concerns about exe rcise : promote physical activity Last Documented On 3 5:15PM ; [facility] Discussed nutritional needs teach healthy choices including fruits and vegetables Last Documented On 2 1:42PM ; [facility] Patient education about a pr oper diet Last Documented On 2 1:42PM ; [facility] Discussed concerns about exe rcise : promote physical activity Last Documented On 2 1:42PM ; [facility] offered active listening and supportive feedback; normalized emotions and feelings, also provided pt time to process any current stressors. ~Promoted and encouraged follow-through with scheduling psychiatric services Last Documented On 2 3:21PM ; [facility] provided supportive, empa thic listening and reflective feedback. ~Explored, encouraged, and supported the pt to discuss current sx/mood, assess risk for harm/need, coping mechanisms, support network and safety planning. ~Supported pt's plan to f/up with Dr. Carney, as planned at [place], [place]. ~Encouraged pt to use safety plan, if needed to ensure she remains safe Last Documented On 2 2:27PM ; [facility] Discussed nutritional needs teach healthy choices including fruits and vegetables Last Documented On 2 3:20PM ; [facility] Patient education about a pr oper diet Last Documented On 2 3:20PM ; [facility] Discussed concerns about exe rcise : promote physical activity ~ ~Will restart trazodone and prazosin ~ ~Patient is planning to have brother stay with her for a few days for emotional support ~ ~Follow up with PCP at next scheduled visit ~ ~Call psychiatrist office to schedule appt ~ ~Call counselor Last Documented On 2 9:35AM ; [facility] Provided supportive listenin g and empathic feedback; encouraged, explored, and supported the pt as she processed current symptoms, Issues, and concerns. ~Discussed past tx and explored current needs/options. Acknowledged and validated pt's thoughts and emotions. ~Explored coping mechanisms and support network; utilized opportunity for safety planning; promoted seeking positive support and seeking help, as needed Last Documented On 2 3:28PM ; [facility] provided active listenin g, support and helped pt process though current symptoms and stressor(s). Discussed and explored past effectiveness of medication; identified objectives and future goals; promoted use of healthy coping mechanisms, and self-care practices Last Documented On 2 3:19PM ; [facility] Reviewed side effects and Ri sks/Benefits analysis Last Documented On 2 3:19PM ; [facility] Discussed nutritional needs teach healthy choices including fruits and vegetables Last Documented On 2 3:15PM ; [facility] Patient education about a pr oper diet Last Documented On 2 3:15PM ; [facility] Discussed concerns about exe rcise : promote physical activity Last Documented On 2 3:15PM ; [facility] introduced pt to [facility] in tegrated model of care ~P offered active listening and supportive feedback; normalized emotions and feelings, also provided pt time to process any current stressors ~P discussed potential benefits of counseling and supported re-engaging, as needed. ~P encouraged pt to continue to make time to implement self-care regimen and use coping methods, as needed Last Documented On 2 4:07PM ; [facility] Discussed nutritional needs teach healthy choices including fruits and vegetables Last Documented On 2 3:15PM ; [facility] Patient education about a pr oper diet Last Documented On 2 3:15PM ; [facility] Inquiry and counseling about medication administration and compliance Last Documented On 2 7:37PM ; [facility] Discussed concerns about exe rcise : promote physical activity Last Documented On 2 3:15PM ; [facility] Patient goals discussed Last Documented On 2 7:37PM ; [facility] Ansewred pt's questions re B orderlline Personality D/O and Bipolar D/O raised by psychiatrist at [facility]. ~Validated and normalized patient?s feelings while assisting to process recent events Last Documented On 1 1:33AM ; [facility] Discussed nutritional needs teach healthy choices including fruits and vegetables Last Documented On 1 2:04PM ; [facility] Patient education about a pr oper diet Last Documented On 1 2:04PM ; [facility] Discussed concerns about exe rcise : promote physical activity Last Documented On 1 2:04PM ; [facility] provided active listenin g, support and helped patient process through current symptoms and stressors with ongoing mental health concerns and medication changes. [facility] discussed coping skills and supports that patient is implementing. discussed implementing coping skills as discussed with counseling and attending weekly appointments as scheduled with counselor. Patient was encouraged to continue writing down concerns with medications and discuss with providers. [facility] reminded patient of crisis resources should they be needed. Patient reports having crisis resources and could return to ER Last Documented On 1 10:17AM ; [facility] Patient education about a pr oper diet Last Documented On 1 5:17PM ; [facility] Patient education about meal planning Last Documented On 5:17PM ; [facility] Education about changing eat ing habits Last Documented On 5:17PM ; [facility] Patient education about high fiber diet Last Documented On 5:17PM ; [facility] Patient education about low fat diet Last Documented On 1 5:17PM ; [facility] Patient education about low cholesterol diet Last Documented On 1 5:17PM ; [facility] Patient education about low carbohydrate diet Last Documented On 1 5:17PM ; [facility] Patient education about high protein diet Last Documented On 1 5:17PM ; [facility] offered active and suppo rtive listening, normalized emotions and feelings, and processed current stressors. [facility] discussed resources for finding a counselor and provided list of local resources. [facility] discussed patients coping skills and supports and encouraged patient to continue to implement. [facility] reminded patient of crisis resources should they be needed Last Documented On 1 7:15PM ; [facility] Discussed nutritional needs teach healthy choices including fruits and vegetables Last Documented On 1 11:38AM ; [facility] Patient education about a pr oper diet Last Documented On 1 11:38AM ; [facility] Patient education about a pr oper diet Last Documented On 1 12:19PM ; [facility] Patient education about meal planning Last Documented On 1 12:19PM ; [facility] Education about changing eat ing habits Last Documented On 1 12:19PM ; [facility] Patient education about high fiber diet Last Documented On 1 12:19PM ; [facility] Patient education about low fat diet Last Documented On 1 12:19PM ; [facility] Patient education about low cholesterol diet Last Documented On 1 12:19PM ; [facility] Patient education about low carbohydrate diet Last Documented On 1 12:19PM ; [facility] Patient education about high protein diet Last Documented On 1 12:19PM ; [facility] Discussed concerns about exe rcise : promote physical activity Last Documented On 1 11:38AM ; [facility], support and helped patient process through current symptoms and stressors related to family conflict. ~P discussed coping skills and supports with patient that can be implemented and reminded patient of ways to access additional resources. ~P discussed crisis resources and plan. Patient has crisis resources still available should they be needed Last Documented On 1 7:04PM ; [facility] Discussed nutritional needs teach healthy choices including fruits and vegetables Last Documented On 1 3:57PM ; [facility] Patient education about a pr oper diet Last Documented On 1 3:57PM ; [facility] Discussed concerns about exe rcise : promote physical activity Last Documented On 1 3:57PM ; [facility] integrated model of care. [facility] and PCP reassured patient of not sharing information with anyone unless she has signed a release for us to do so. ~P provided active listening, support and helped patient process through current symptoms and stressors. ~P discussed establishing counseling and psychiatry. [facility] discussed EMDR therapy and ways to find provider who does this type of therapy. ~P discussed crisis resources should mood worsen, P provided text hotline number for crisis. P reviewed crisis plan with patient and patient is able to contact positive supports and family when feeling down Last Documented On 1 11:46AM ; [facility] Discussed nutritional needs teach healthy choices including fruits and vegetables Last Documented On 1 2:11PM ; [facility] Patient education about a pr oper diet Last Documented On 1 2:11PM ; [facility] Discussed concerns about exe rcise : promote physical activity Last Documented On 1 2:11PM ; [facility] Work Phone: Instructions Includes: Instructions for all patient encounters Education and Decision Aids were provided during visit for: ~*P offered active and sup portive listening, normalized emotions and feelings, and processed ~current stressors. ~*Discussed engageing in counseling and looking into EMDR to address PTSD and increased nightmares Last Documented On 4 4:14PM ; [facility] Discussed nutritional needs teach healthy choices including fruits and vegetables Last Documented On 4 4:33PM ; [facility] Patient education about a pr oper diet Last Documented On 4 4:33PM ; [facility] Discussed concerns about exe rcise : promote physical activity Last Documented On 4 4:33PM ; [facility] and suppo rtive listening and processed recent stressors. ~P discussed coping skills and supports to implement in managing increased anxiety such as tools learned previously in therapy. ~P discussed sleep hygiene strategies that can be implemented. ~[facility] encouraged patient to follow-up with specialists as scheduled Last Documented On 4 3:26PM ; [facility] Discussed nutritional needs teach healthy choices including fruits and vegetables Last Documented On 4 4:51PM ; [facility] Patient education about a pr oper diet Last Documented On 4 4:51PM ; [facility] Discussed concerns about exe rcise : promote physical activity Last Documented On 4 4:51PM ; [facility] Referred Patient to a Diab[facility] es Self-Management Program Last Documented On 4 5:22PM ; [facility] offered active and suppo rtive listening and processed current stressors. ~P discussed coping skills and supports that can be implemented to manage increased anxiety and stressors. P discussed potential of resuming counseling, even if for monthly visits to process ongoing stressors. ~[facility] encouraged patient to follow- up on referrals as discussed with PCP Last Documented On 4 10:08AM ; [facility] Discussed nutritional needs teach healthy choices including fruits and vegetables Last Documented On 4 4:46PM ; [facility] Patient education about a pr oper diet Last Documented On 4 4:46PM ; [facility] Discussed concerns about exe rcise : promote physical activity Last Documented On 4 4:46PM ; [facility] Not requesting contraception Last Documented On 4 4:46PM ; [facility] offered active and suppo rtive listening and processed current stressors related to getting medications. ~P discussed coping skills and supports to implement in daily routine. ~[facility] discussed progress patient has felt they have made recently and encouraged continued follow-up with providers to address health Last Documented On 4 5:16PM ; [facility] Discussed nutritional needs teach healthy choices including fruits and vegetables Last Documented On 4 7:14PM ; [facility] Patient education about a pr oper diet Last Documented On 4 7:14PM ; [facility] Discussed concerns about exe rcise : promote physical activity Last Documented On 4 7:14PM ; [facility] Not requesting contraception Last Documented On 4 7:14PM ; [facility] Discussed nutritional needs teach healthy choices including fruits and vegetables Last Documented On 3 5:15PM ; [facility] Patient education about a pr oper diet Last Documented On 3 5:15PM ; [facility] Discussed concerns about exe rcise : promote physical activity Last Documented On 3 5:15PM ; [facility] Discussed nutritional needs teach healthy choices including fruits and vegetables Last Documented On 2 1:42PM ; [facility] Patient education about a pr oper diet Last Documented On 2 1:42PM ; [facility] Discussed concerns about exe rcise : promote physical activity Last Documented On 2 1:42PM ; [facility] offered active listening and supportive feedback; normalized emotions and feelings, also provided pt time to process any current stressors. ~Promoted and encouraged follow-through with scheduling psychiatric services Last Documented On 2 3:21PM ; [facility] provided supportive, empa thic listening and reflective feedback. ~Explored, encouraged, and supported the pt to discuss current sx/mood, assess risk for harm/need, coping mechanisms, support network and safety planning. ~Supported pt's plan to f/up with Dr. Carney, as planned at [place], [place]. ~Encouraged pt to use safety plan, if needed to ensure she remains safe Last Documented On 2 2:27PM ; [facility] Discussed nutritional needs teach healthy choices including fruits and vegetables Last Documented On 2 3:20PM ; [facility] Patient education about a pr oper diet Last Documented On 2 3:20PM ; [facility] Discussed concerns about exe rcise : promote physical activity ~ ~Will restart trazodone and prazosin ~ ~Patient is planning to have brother stay with her for a few days for emotional support ~ ~Follow up with PCP at next scheduled visit ~ ~Call psychiatrist office to schedule appt ~ ~Call counselor Last Documented On 2 9:35AM ; [facility] Provided supportive listenin g and empathic feedback; encouraged, explored, and supported the pt as she processed current symptoms, Issues, and concerns. ~Discussed past tx and explored current needs/options. Acknowledged and validated pt's thoughts and emotions. ~Explored coping mechanisms and support network; utilized opportunity for safety planning; promoted seeking positive support and seeking help, as needed Last Documented On 2 3:28PM ; [facility] provided active listenin g, support and helped pt process though current symptoms and stressor(s). Discussed and explored past effectiveness of medication; identified objectives and future goals; promoted use of healthy coping mechanisms, and self-care practices Last Documented On 2 3:19PM ; [facility] Reviewed side effects and Ri sks/Benefits analysis Last Documented On 2 3:19PM ; [facility] Discussed nutritional needs teach healthy choices including fruits and vegetables Last Documented On 2 3:15PM ; [facility] Patient education about a pr oper diet Last Documented On 2 3:15PM ; [facility] Discussed concerns about exe rcise : promote physical activity Last Documented On 2 3:15PM ; [facility] introduced pt to [facility] in tegrated model of care ~P offered active listening and supportive feedback; normalized emotions and feelings, also provided pt time to process any current stressors ~[facility] discussed potential benefits of counseling and supported re-engaging, as needed. ~P encouraged pt to continue to make time to implement self-care regimen and use coping methods, as needed Last Documented On 2 4:07PM ; [facility] Discussed nutritional needs teach healthy choices including fruits and vegetables Last Documented On 2 3:15PM ; [facility] Patient education about a pr oper diet Last Documented On 2 3:15PM ; [facility] Inquiry and counseling about medication administration and compliance Last Documented On 2 7:37PM ; [facility] Discussed concerns about exe rcise : promote physical activity Last Documented On 2 3:15PM ; [facility] Patient goals discussed Last Documented On 2 7:37PM ; [facility] Ansewred pt's questions re B orderlline Personality D/O and Bipolar D/O raised by psychiatrist at [facility]. ~Validated and normalized patient?s feelings while assisting to process recent events Last Documented On 1 1:33AM ; [facility] Discussed nutritional needs teach healthy choices including fruits and vegetables Last Documented On 1 2:04PM ; [facility] Patient education about a pr oper diet Last Documented On 1 2:04PM ; [facility] Discussed concerns about exe rcise : promote physical activity Last Documented On 1 2:04PM ; [facility] provided active listenin g, support and helped patient process through current symptoms and stressors with ongoing mental health concerns and medication changes. [facility] discussed coping skills and supports that patient is implementing. discussed implementing coping skills as discussed with counseling and attending weekly appointments as scheduled with counselor. Patient was encouraged to continue writing down concerns with medications and discuss with providers. [facility] reminded patient of crisis resources should they be needed. Patient reports having crisis resources and could return to ER Last Documented On 1 10:17AM ; [facility] Patient education about a pr oper diet Last Documented On 5:17PM ; [facility] Patient education about meal planning Last Documented On 5:17PM ; [facility] Education about changing eat ing habits Last Documented On 5:17PM ; [facility] Patient education about high fiber diet Last Documented On 5:17PM ; [facility] Patient education about low fat diet Last Documented On 5:17PM ; [facility] Patient education about low cholesterol diet Last Documented On 5:17PM ; [facility] Patient education about low carbohydrate diet Last Documented On 5:17PM ; [facility] Patient education about high protein diet Last Documented On 5:17PM ; [facility] offered active and suppo rtive listening, normalized emotions and feelings, and processed current stressors. [facility] discussed resources for finding a counselor and provided list of local resources. [facility] discussed patients coping skills and supports and encouraged patient to continue to implement. [facility] reminded patient of crisis resources should they be needed Last Documented On 1 7:15PM ; [facility] Discussed nutritional needs teach healthy choices including fruits and vegetables Last Documented On 11:38AM ; [facility] Patient education about a pr oper diet Last Documented On 11:38AM ; [facility] Patient education about a pr oper diet Last Documented On 1 12:19PM ; [facility] Patient education about meal planning Last Documented On 12:19PM ; [facility] Education about changing eat ing habits Last Documented On 1 12:19PM ; [facility] Patient education about high fiber diet Last Documented On 1 12:19PM ; [facility] Patient education about low fat diet Last Documented On 1 12:19PM ; [facility] Patient education about low cholesterol diet Last Documented On 1 12:19PM ; [facility] Patient education about low carbohydrate diet Last Documented On 1 12:19PM ; [facility] Patient education about high protein diet Last Documented On 1 12:19PM ; [facility] Discussed concerns about exe rcise : promote physical activity Last Documented On 1 11:38AM ; [facility], support and helped patient process through current symptoms and stressors related to family conflict. ~P discussed coping skills and supports with patient that can be implemented and reminded patient of ways to access additional resources. ~P discussed crisis resources and plan. Patient has crisis resources still available should they be needed Last Documented On 1 7:04PM ; [facility] Discussed nutritional needs teach healthy choices including fruits and vegetables Last Documented On 1 3:57PM ; [facility] Patient education about a pr oper diet Last Documented On 1 3:57PM ; [facility] Discussed concerns about exe rcise : promote physical activity Last Documented On 1 3:57PM ; [facility] integrated model of care. [facility] and PCP reassured patient of not sharing information with anyone unless she has signed a release for us to do so. ~P provided active listening, support and helped patient process through current symptoms and stressors. ~P discussed establishing counseling and psychiatry. P discussed EMDR therapy and ways to find provider who does this type of therapy. ~P discussed crisis resources should mood worsen, P provided text hotline number for crisis. P reviewed crisis plan with patient and patient is able to contact positive supports and family when feeling down Last Documented On 1 11:46AM ; [facility] Discussed nutritional needs teach healthy choices including fruits and vegetables Last Documented On 1 2:11PM ; [facility] Patient education about a pr oper diet Last Documented On 1 2:11PM ; [facility] Discussed concerns about exe rcise : promote physical activity Last Documented On 1 2:11PM ; [facility] Work Phone: Patient problem outcome Narrative Includes: Evaluations & Outcomes for active Goals No Outcomes RecordedGood [facility] Work Phone: Progress note* Progress note Date Encounter Last Documented by 07/29/2024 Chart Update Last documented on 07/29/2024; 12:07 PM, Denny Lomeli CNP; [facility] Active Problems & Conditions - F90.9 - Attention-deficit Hyperactivity Disorder - F31.31 - Bipolar I Disorder, Most Recent Episode, Depressed Mild - E11.9 - Diabetes Mellitus Type 2 Without Complication - N94.6 - Dysmenorrhea - F43.10 - Post-traumatic Stress Disorder Current Medication - Alcohol Pads 70% use to cleanse skin prior to checking blood sugars, 90 days, 3 refills - ARIPiprazole 5 MG Oral Tablet take 1 tablet by mouth once daily, 30 days, 5 refills - Atorvastatin Calcium 20 MG Oral Tablet take 1 tablet by mouth once daily at bedtime, 30 days, 5 refills - Blood Glucose System Ren Kit use to check sugars once daily (use what is covered), 30 days, 0 refills - busPIRone HCl 10 MG Oral Tablet take 1 tablet by mouth twice daily (d/c 5 mg rx), 30 days, 5 refills - CareSens Lancets Miscellaneous use to check sugars once daily (dispense what is covered), 90 days, 3 refills - Colace 100 MG Oral Capsule take 1 capsule by mouth once daily at bedtime as needed for constipation, 30 days, 5 refills - [facility] Iron 325 (65 Fe) MG Oral Tablet take 1 tablet by mouth once daily, 30 days, 5 refills - Intuniv 1 MG Oral Tablet Extended Release 24 Hour take 1 tablet by mouth once daily at bedtime, 30 days, 5 refills - Januvia 50 MG Oral Tablet take 1 tablet by mouth once daily, 30 days, 5 refills - lamoTRIgine 100 MG Oral Tablet take 1 tablet by mouth once daily, 30 days, 5 refills - Lisinopril 5 MG Oral Tablet take 1 tablet by mouth once daily, 30 days, 5 refills - MiraLax 17 GM/SCOOP Oral Powder mix 1 scoop with 8 ounces once daily, 30 days, 2 refills - Narcan 4 MG/0.1ML Nasal Liquid spray in nostril for symptoms of overdose , may repeat in 2 minutes if symptoms persist, 1 days, 0 refills - OneTouch Ultra In Vitro Strip USE ONE TEST STRIP TO CHECK BLOOD SUGARS ONCE DAILY, 90 days, 3 refills - Prazosin HCl 1 MG Oral Capsule take 1 capsule by mouth twice daily, 30 days, 5 refills - SEROquel 50 MG Oral Tablet take 1 tablet by mouth once daily at bedtime (d/c trazodone), 30 days, 1 refills - Sertraline HCl 50 MG Oral Tablet take 1 tablet by mouth once daily, 30 days, 5 refills - Slynd 4 MG Oral Tablet take 1 tablet by mouth at the same time everyday to help regulate your period, 28 days, 2 refills Past Medical/Surgical History Reported: No Safety Measures. Has sex without a condom. Medical: No previous hospitalizations. Chronic illness and Sexually transmitted infection Partners sexually transmitted infection status known. Immunization History: Recent immunization for flu. Exposure: Exposure to COVID-19. : Previously 1 time(s) and para having 0 live (s). Not planning a in the next year. Legal Documents: Consent form on file for procedure. Diagnoses: Polycystic Ovarian Syndrome (PCOS). Migraine headache. Psychiatric disorders biopolar disorder Anxiety disorder POTS. Procedural: - Insertion of ear pressure equalization tubes in both ears Surgical: - Tonsillectomy - Tonsillectomy with adenoidectomy Allergies - Abilify Reaction: groggy - Augmentin Reaction: Shock - Metformin Reaction: Nausea, Vomiting - NO KNOWN ENVIRONMENTAL ALLERGIES - NO KNOWN FOOD ALLERGIES - Sertraline Reaction: slow/groggy - Trazodone Hydrochloride Reaction: Panic attack Family History Paternal: Systemic hypertension Oncologic disorder Maternal: Systemic hypertension Epilepsy and recurrent seizures Psychiatric disorders Oncologic disorder Fraternal: Psychiatric disorders Assessment - D50.9 - Iron deficiency anemia, unspecified Plan StartCited- Iron deficiency anemia, unspecified Lab: Iron and TIBC Lab: CBC With Differential/Platelet EndCited Care Team - Denny Lomeli CNP [facility]ative)No Reason for Referral RecordedGood [facility] Work Phone: Review of systems Narrative - Reported Review of Systems not supported for this document type No Review of Systems RecordedGood [facility] Work Phone: Summary Purpose Family History Description Last Updated Maternal history of epilepsy and recurre nt seizures 03/17/2021 Fraternal history of psychiatric disorde rs 03/17/2021 Maternal history of hypertension 021 Maternal history of oncologic disorder 0 03/17/2021 Maternal history of psychiatric disorder s 03/17/2021 Paternal history of hypertension 021 Paternal history of oncologic disorder 0 03/17/2021 Description Last Updated Maternal history of epilepsy and recurre nt seizures 03/17/2021 Last Documented On 1 4:06PM ; [facility] Fraternal history of psychiatric disorde rs 03/17/2021 Maternal history of hypertension 021 Maternal history of oncologic disorder 0 03/17/2021 Maternal history of psychiatric disorder s 03/17/2021 Paternal history of hypertension 021 Paternal history of oncologic disorder 0 03/17/2021 Description Last Updated Maternal history of epilepsy and recurre nt seizures 03/17/2021 Last Documented On 1 4:06PM ; [facility] Fraternal history of psychiatric disorde rs 03/17/2021 Maternal history of hypertension 021 Maternal history of oncologic disorder 0 03/17/2021 Maternal history of psychiatric disorder s 03/17/2021 Paternal history of hypertension 021 Paternal history of oncologic disorder 0 03/17/2021 Description Last Updated Maternal history of epilepsy and recurre nt seizures 03/17/2021 Last Documented On 1 4:06PM ; [facility] Fraternal history of psychiatric disorde rs 03/17/2021 Maternal history of hypertension 021 Maternal history of oncologic disorder 0 03/17/2021 Maternal history of psychiatric disorder s 03/17/2021 Paternal history of hypertension 021 Paternal history of oncologic disorder 0 03/17/2021 Description Last Updated Maternal history of epilepsy and recurre nt seizures 03/17/2021 Last Documented On 1 4:06PM ; [facility] Fraternal history of psychiatric disorde rs 03/17/2021 Maternal history of hypertension 021 Maternal history of oncologic disorder 0 03/17/2021 Maternal history of psychiatric disorder s 03/17/2021 Paternal history of hypertension 021 Paternal history of oncologic disorder 0 03/17/2021 Description Last Updated Maternal history of epilepsy and recurre nt seizures 03/17/2021 Last Documented On 1 4:06PM ; [facility] Fraternal history of psychiatric disorde rs 03/17/2021 Maternal history of hypertension 021 Maternal history of oncologic disorder 0 03/17/2021 Maternal history of psychiatric disorder s 03/17/2021 Paternal history of hypertension 021 Paternal history of oncologic disorder 0 03/17/2021 Description Last Updated Maternal history of epilepsy and recurre nt seizures 03/17/2021 Last Documented On 1 4:06PM ; [facility] Fraternal history of psychiatric disorde rs 03/17/2021 Maternal history of hypertension 021 Maternal history of oncologic disorder 0 03/17/2021 Maternal history of psychiatric disorder s 03/17/2021 Paternal history of hypertension 021 Paternal history of oncologic disorder 0 03/17/2021 Description Last Updated Maternal history of epilepsy and recurre nt seizures 03/17/2021 Last Documented On 1 4:06PM ; [facility] Fraternal history of psychiatric disorde rs 03/17/2021 Maternal history of hypertension 021 Maternal history of oncologic disorder 0 03/17/2021 Maternal history of psychiatric disorder s 03/17/2021 Paternal history of hypertension 021 Paternal history of oncologic disorder 0 03/17/2021 Description Last Updated Maternal history of epilepsy and recurre nt seizures 03/17/2021 Last Documented On 1 4:06PM ; [facility] Fraternal history of psychiatric disorde rs 03/17/2021 Maternal history of hypertension 021 Maternal history of oncologic disorder 0 03/17/2021 Maternal history of psychiatric disorder s 03/17/2021 Paternal history of hypertension 021 Paternal history of oncologic disorder 0 03/17/2021 Description Last Updated Maternal history of epilepsy and recurre nt seizures 03/17/2021 Last Documented On 1 4:06PM ; [facility] Fraternal history of psychiatric disorde rs 03/17/2021 Maternal history of hypertension 021 Maternal history of oncologic disorder 0 03/17/2021 Maternal history of psychiatric disorder s 03/17/2021 Paternal history of hypertension 021 Paternal history of oncologic disorder 0 03/17/2021 Description Last Updated Maternal history of epilepsy and recurre nt seizures 03/17/2021 Last Documented On 4:06PM ; [facility] Fraternal history of psychiatric disorde rs 03/17/2021 Maternal history of hypertension 021 Maternal history of oncologic disorder 0 03/17/2021 Maternal history of psychiatric disorder s 03/17/2021 Paternal history of hypertension 021 Paternal history of oncologic disorder 0 03/17/2021 Description Last Updated Maternal history of epilepsy and recurre nt seizures 03/17/2021 Last Documented On 1 4:06PM ; [facility] Fraternal history of psychiatric disorde rs 03/17/2021 Maternal history of hypertension 021 Maternal history of oncologic disorder 0 03/17/2021 Maternal history of psychiatric disorder s 03/17/2021 Paternal history of hypertension 021 Paternal history of oncologic disorder 0 03/17/2021 Description Last Updated Maternal history of epilepsy and recurre nt seizures 03/17/2021 Last Documented On 1 4:06PM ; [facility] Fraternal history of psychiatric disorde rs 03/17/2021 Maternal history of hypertension 021 Maternal history of oncologic disorder 0 03/17/2021 Maternal history of psychiatric disorder s 03/17/2021 Paternal history of hypertension 021 Paternal history of oncologic disorder 0 03/17/2021 Advance Directives Includes: Current Advance Directives No Advance Directives Recorded Documents on File Type Date Recorded Patient Quotation Clerk Expl anation ACP-Advance Directive ACP-[employer] Documents on File Type Date Recorded Patient Quotation Clerk Expl anation ACP-Advance Directive [employer] Physical Exam Physical Exam not supported for this document type No Physical Exam Recorded Physical Exam not supported for this document type No Physical Exam Recorded Physical Exam not supported for this document type No Physical Exam Recorded Physical Exam not supported for this document type No Physical Exam Recorded Physical Exam not supported for this document type No Physical Exam Recorded Physical Exam not supported for this document type No Physical Exam Recorded Physical Exam not supported for this document type No Physical Exam Recorded Physical Exam not supported for this document type No Physical Exam Recorded Physical Exam not supported for this document type No Physical Exam Recorded Physical Exam not supported for this document type No Physical Exam Recorded Physical Exam not supported for this document type No Physical Exam Recorded Physical Exam not supported for this document type No Physical Exam Recorded Physical Exam not supported for this document type No Physical Exam Recorded Physical Exam not supported for this document type No Physical Exam Recorded Physical Exam not supported for this document type No Physical Exam Recorded Physical Exam not supported for this document type No Physical Exam Recorded Physical Exam not supported for this document type No Physical Exam Recorded Physical Exam not supported for this document type No Physical Exam Recorded Physical Exam not supported for this document type No Physical Exam Recorded Physical Exam not supported for this document type No Physical Exam Recorded Physical Exam not supported for this document type No Physical Exam Recorded Physical Exam not supported for this document type No Physical Exam Recorded Physical Exam not supported for this document type No Physical Exam Recorded Physical Exam not supported for this document type No Physical Exam Recorded Physical Exam not supported for this document type No Physical Exam Recorded Physical Exam not supported for this document type No Physical Exam Recorded Physical Exam not supported for this document type No Physical Exam Recorded Physical Exam not supported for this document type No Physical Exam Recorded Physical Exam not supported for this document type No Physical Exam Recorded Reason for Referral Status Reason Specialty Diagnoses / Procedures Referred By Contact Referred To Contact Pending Review Diagnoses Tachycardia Procedures Holter Monitor 48 Hour Denny Lomeli, WORKDAY CONSULTANT - RACKING TECHNICIAN [address] [place] [address] Additional Source Comments INFORMATION SOURCE (unrecogn ized section and content) DATE CREATED AUTHOR 04/18/2018 [facility] DATE CREATED AUTHOR AUTHOR'S ORGANIZ ATION 11/14/2020 [facility] DATE CREATED AUTHOR AUTHOR'S ORGANIZ ATION 04/15/2021 [facility] DATE CREATED AUTHOR AUTHOR'S ORGANIZ ATION 07/11/2021 [facility] DATE CREATED AUTHOR AUTHOR'S ORGANIZ ATION 07/27/2021 [facility] DATE CREATED AUTHOR AUTHOR'S ORGANIZ ATION 08/16/2022 [facility] DATE CREATED AUTHOR AUTHOR'S ORGANIZ ATION 03/01/2024 [facility] Reason for Visit (unrecogniz ed section and content) Reason Comments Suicidal with a plan of overd osing on zoloft Reason Comments Mental Health Problem patient states she is feeling homicidal and wants meds adjusted, doesn't feel they are working Panic Attack Reason Comments Homicidal pt states she is on a donw slope of her bipolar, pt states I want to kill anyone who pisses me off Status Reason Specialty Diagnoses / Procedures Referred By Contact Referred To Contact Pending Review Diagnoses Tachycardia Procedures Holter Monitor 48 Hour Denny Lomeli, WORKDAY CONSULTANT - RACKING TECHNICIAN [address] [place] [address] Scheduled Active and Recently Administ ered Medications (unrecognized section and content) Medication Order 05/14/2021 05/15/2021 05/16/2021 ALPRAZolam (XANAX) tablet 0.5 mg (COMPLETED) 0.5 mg, Oral, ONCE, On 05/15/21 at 2100, For 1 dose 2108 (Given - Provider: Ankur Gregory RN) PRN Medication Order 07/04/2021 07/05/2021 07/06/2021 hydrOXYzine (VISTARIL) capsule 50 mg 50 mg, Oral, 3 TIMES DAILY PRN, Itching, Starting on e 07/06/21 at [id number] (Given - Provid er: Denny Orozco RN) Care Teams (unrecognized sec tion and content) Cherry Cutter Relationship Specialty Start Date End Date Denny Lomeli, WORKDAY CONSULTANT - RACKING TECHNICIAN [address] [place] [address] PCP - General Family Medicine 04/09/21 FOR RECORDS PERTAINING TO PATIENTS WHO ARE OR HAVE BEEN ENROLLED IN A CHEMICAL DEPENDENCY/SUBSTANCEABUSE PROGRAM, SOME INFORMATION MAY BE OMITTED. This clinical summary was aggregated from multiple sources. Caution should be exercised in using it in the provision of clinical care. This summary normalizes information from multiple sources, and as a consequence, information in this document may materially change the coding, format and clinical context of patient data. In addition, data may be omitted in some cases. CLINICAL DECISIONS SHOULD BE BASED ON THE PRIMARY CLINICAL RECORDS. [id number] [facility]. provides no warranty or guarantee of the accuracy or completeness of information in this document.
== END 2024-08-10 17:55 | disposition home or self-care (01) ==
LOC: ER 17:51
PROVIDERS: Physician Assistant; Emergency Provider Emergency Medicine; PCP Nurse Practitioner Family
DX: N93.9 Abnormal uterine and vaginal bleeding, unspecified (principal); E28.2 Polycystic ovarian syndrome; F17.290 Nicotine dependence, other tobacco product, uncomplicated
CPT/HCPCS: 36415; 85025; 96372; 99284; J1885; J2250

== ENCOUNTER 2024-08-13 10:47 | Outpatient (OUT) | payer OTHER, SELFPAY ==
--- OUTSIDE RECORDS SUMMARY | 2024-08-13 11:06 | XMS_ITS | CCD ---
Author Organization [facility] CliniSyvt Care Team Providers Care Post Framer Name Role Phone MARIBEL ASTORGA MD Unavailable Unavailab le MARIBEL ASTORGA MD Unavailable Unavailab le NONE Unavailable Unavailable ADDIS BARBER Attending Unavailable ADDIS BARBER Consulting Unavailable ADDIS BARBER Admitting Unavailable Denny Lomeli CNP Primary Care Provider Armani PIN CHASER - SCOTT Denny M Primary Care Provider [...] ARMANI, DENNY M Primary Care Unavailable Armani PIN CHASER - SCOTT, Denny M Primary Care Provider ARMANI, DENNY M Referring Unavailable ARMANI, DENNY M Primary Care Unavailable Armani Denny CHAVEZ Primary Care Provider ARMANI, DENNY M Primary Care Unavailable MABLE RO Attending Unavailable MABLE RO Attending Unavailable MABLE RO Referring Unavailable ARMANI, DENNY M Primary Care Unavailable Armani SCOTT Denny Unavailable Allergies Allergy Classification Reported Allergen(s) Allergy Type Date of Onset Reaction(s) Facility Amoxicillin / Clavulanate (6 sources) Amoxicillin / Clavulanate; Translations: [Augmentin 500-125 MG Oral Tablet] Drug Allergy [facility] ARIPiprazole (6 sources) ARIPiprazole; Translations: [Abilify] Drug Allergy 1 groggy [facility] metFORMIN (6 sources) metFORMIN; Translations: [metformin] Drug Allergy 1 Nausea, Vomiting [facility] Serotonin Reuptake Inhibitors (SSRIs) (7 sources) Sertraline; Translations: [trazodone hydrochloride] Drug Allergy 1 Panic attack, slow/groggy [facility] Unclassified (6 sources) Amoxicillin-Pot Clavulanate; Translations: [AMOXICILLIN-PO T CLAVULANATE] Propensity to adverse reactions to drug 7 [facility] (1 source) Amoxicillin / Clavulanate Drug Allergy 4 [facility] Repository (20 sources) Amoxicillin / Clavulanate; Translations: [Augmentin 500-125 MG Oral Tablet] Drug Allergy 1 Shock [facility] (20 sources) ARIPiprazole; Translations: [Abilify] Drug Allergy 1 groggy [facility] (20 sources) metFORMIN; Translations: [METFORMIN] Drug Allergy 0 Nausea, Vomiting [facility] (15 sources) Sertraline Drug Allergy 1 slow/ groggy [facility] (4 sources) traZODone Drug Allergy 2 Panic attack [facility] (1 source) nickel; Translations: [NICKEL] Drug Allergy 7 [facility] (1 source) CARBONIC ANHYDRASE INHIBITORS; Translations: [CARBONIC ANHYDRASE INHIBITORS] Propensity to adverse reactions to drug (disorder) 7 [facility] (8 sources) Sertraline Drug Allergy 4 slow/groggy [facility] (8 sources) traZODone Drug Allergy 4 Panic attack [facility] Medications Current Medications Medication Drug Class(es) Dates [...] MG Oral Tablet 06/13/2024 Provider: Denny Armani [employer] LORazepam 0.5 mg oral tablet (3 sources) [...] as needed 0 Active polyethylene glycol 3350 94229 mg powder for oral solution (20 sources) [...] oral solution (20 sources) alpha-Adrenergic Agonist, Uncompetitive S-lmptrt-A-aspartat e Receptor Antagonist, Sigma-1 Agonist Start: 04-22-2021 [...] / neomycin 3.5 mg/ml / polymyxin b 03109 unt/ml otic suspension (20 sources) Aminoglycoside Antibacterial, Polymyxin-class Antibacterial, Corticosteroid Start: 04-23-2021 End: 06-17-2021 Xagfjajr-Aakvaetqw-AY 3.5-11685-7 Otic Suspension 04/23/2021 - 06/17/2021 Provider: Denny [...] Tablet 01/17/2024 - 07/11/2024 Provider: Denny Lomeli [employer] Start: 06-08-2021 End: 08-12-2022 traZODone HCl 50 [...] [Mass/Vol] 118 ng/mL (15-150 ) Healt [facility] Free T3 [Mass/Vol] 3.2 pg/mL (2.0-4.4 ) [facility] Free T4 [Mass/Vol] 1.13 ng/dL (0.82-1.7 7 ) [facility] Iron [Mass/Vol] 52 ug/dL (27-159 ) [facility] Iron binding capacity [Mass/Vol] 396 ug/dL (250-450 ) [facility] Iron binding capacity.unsaturated [Mass/Vol] 344 ug/dL (131-425 ) [facility] Iron saturation [Mass fraction] 13 % Low (15-55 ) [facility] TSH Qn 2.930 uIU/mL (0.450-4.50 0 ) [facility] Laboratory - Hematology and Cell countson 06-13-2024 Basophils (Bld) [#/Vol] 0.1 10*3/uL (0.0-0.2 ) [facility] Basophils/100 WBC (Bld) 0 % (Not Estab. ) [facility] Eosinophils (Bld) [#/Vol] 0.2 10*3/uL (0.0-0.4 ) [facility] Eosinophils/100 WBC (Bld) 1 % (Not Estab. ) [facility] Erythrocyte distribution width (RBC) [Ratio] 15.7 % High (11.7-15.4 ) [facility] Hematocrit (Bld) [Volume fraction] 41.3 % (34.0-46.6 ) [facility] Hemoglobin (Bld) [Mass/Vol] 12.9 g/dL (11.1-15.9 ) [facility] Immature granulocytes (Bld) [#/Vol] 0.1 10*3/uL (0.0-0.1 ) [facility] Immature granulocytes/100 WBC (Bld) 1 % (Not Estab. ) [facility] Lymphocytes (Bld) [#/Vol] 2.4 10*3/uL (0.7-3.1 ) [facility] Lymphocytes/100 WBC (Bld) 18 % (Not Estab. ) [facility] MCH (RBC) [Entitic mass] 24.3 pg Low (26.6-33.0 ) [facility] MCHC (RBC) [Mass/Vol] 31.2 g/dL Low (31.5- 35.7 ) [facility] MCV (RBC) [Entitic vol] 78 fL Low (79-97 ) H [facility] Monocytes (Bld) [#/Vol] 0.6 10*3/uL (0.1-0.9 ) [facility] Monocytes/100 WBC (Bld) 5 % (Not Estab. ) [facility] Morphology Ramesh (Bld) [Interp] DRIER TENDER NAPHTHALENE [facility] Neutrophils (Bld) [#/Vol] 9.7 10*3/uL High (1.4-7.0 ) [facility] Neutrophils/100 WBC (Bld) 75 % (Not Estab. ) [facility] Nucleated RBC/100 WBC (Bld) [Ratio] DRIER TENDER NAPHTHALENE [facility] Platelets (Bld) [#/Vol] 308 10*3/uL (150-450 ) [facility] RBC (Bld) [#/Vol] 5.31 10*6/uL High (3.77-5.28 ) [facility] WBC (Bld) [#/Vol] 13.1 10*3/uL High (3.4-10.8 ) [facility] - Serology - non- microon 06-13-2024 Thyroglobulin Ab Qn [IU]/mL (0.0-0.9 ) [facility] Comment on above: Note: Thyroglobulin Antibody measured by Frankie CoulterMethodology .It should be noted that the presence of thyroglobulinantibodies may not be pathogenic nor diagnostic, especiallyat very low levels. The assay haul driver has found thatfour percent of individuals without evidence of thyroiddisease or autoimmunity will have positive TgAb levels upto 4 IU/mL. TPO Ab Qn 14 [IU]/mL (0-34 ) [facility] No Panel Informationon 06-13 Immature Cells DRIER TENDER NAPHTHALENE [facility] Reported Physicians See Note [facility] Comment on above: Note: Reported Physi cians:Ordering: Denny Lomeli Troponin I.cardiac High sens itivity method [Mass/Vol]on 02-29-2024 1 HOUR TROP I, HIGH SENSITIVITY <2 Normal <16 [facility] Comment on above: Performed By: #### 8 9579-7 #### [facility] [place] ([id number]) [address] [place] [address] 23592 BASIC METABOLIC PANLon 02-27 Anion gap [Moles/Vol] 7 mmol/L Normal 5-15 [facility] Comment on above: Performed By: #### C BCA, BMP, 43633-8, 12793-5, 82709-1 #### [facility] [place] ([id number]) [address] [place] [address] 26081 Calcium [Mass/Vol] 8.9 mg/dL Normal 8.5-10.5 [facility] Comment on above: Performed By: #### C BCA, BMP, 07889-9, 64755-8, 74881-3 #### [facility] [place] ([id number]) [address] [place] [address] 26788 Chloride [Moles/Vol] 101 mmol/L Normal 98-109 [facility] Comment on above: Performed By: #### C BCA, BMP, 39856-2, 14588-5, 65612-8 #### [facility] [place] ([id number]) [address] [place] [address] 51147 CO2 [Moles/Vol] 28 mmol/L Normal 22-32 [facility] Comment on above: Performed By: #### C MARIETTA, BMP, 96287-2, 04893-7, 45431-3 #### [facility] [place] ([id number]) [address] [place] [address] 28759 Creatinine [Mass/Vol] 0.91 mg/dL Normal 0.40-1.00 [facility] Comment on above: Result Comment: METH OD TRACEABLE TO IDMS STANDARD Performed By: #### C MARIETTA, VERONIQUE, , 65923-5, 17236-0 #### [facility] [place] ([id number]) [address] [place] [address] 80691 eGFR (CKD-EPI) NON-RACE DEPENDENT >90 Normal >59 [facility] Comment on above: Result Comment: Reported eGFR is based on the CKD-EPI 2020 equation that does not use a race coefficient. Performed By: #### C MARIETTA, VERONIQUE, , 33658-8, 57505-9 #### [facility] [place] ([id number]) [address] [place] [address] 66853 Glucose [Mass/Vol] 107 mg/dL High 65-99 [facility] Comment on above: Performed By: #### C MARIETTA, BMP, , 25469-4, 10144-2 #### [facility] [place] ([id number]) [address] [place] [address] 01623 Potassium [Moles/Vol] 3.5 mmol/L Normal 3.5-5.0 [facility] Comment on above: Performed By: #### C MARIETTA, BMP, 57971-5, 04250-5, 92519-4 #### [facility] [place] ([id number]) [address] [place] [address] 76545 Sodium [Moles/Vol] 136 mmol/L Normal 134-146 [facility] Comment on above: Performed By: #### C BCA, BMP, 79024-8, 99378-4, 71289-9 #### [facility] [place] ([id number]) [address] [place] [address] 71918 Urea nitrogen [Mass/Vol] 10 mg/dL Normal 5-23 [facility] Comment on above: Performed By: #### C BCA, BMP, , 06737-3, 07756-7 #### [facility] [place] ([id number]) [address] [place] [address] 90961 CBC AND AUTO DIFFon 02-28-20 24 ABSOLUTE BASOPHIL 0.2 X10E9/L Normal 0.0-0.2 [facility] Comment on above: Performed By: #### C BCA, BMP, , 69365-0, 86922-0 #### [facility] [place] ([id number]) [address] [place] [address] 53918 ABSOLUTE NEUTROPHIL 10.7 X10E9/L High 1.5-6.6 [facility] Comment on above: Performed By: #### C BCA, BMP, , 06501-5, 71673-2 #### [facility] [place] ([id number]) [address] [place] [address] 11363 Basophils/100 WBC (Bld) 1.1 % Normal [facility] Comment on above: Performed By: #### C BCA, BMP, , 46281-4, 04369-0 #### [facility] [place] ([id number]) [address] [place] [address] 94434 Eosinophils (Bld) [#/Vol] 0.2 10*3/uL Normal 0.0-0.4 [facility] Comment on above: Performed By: #### C BCA, BMP, , 23318-5, 86246-0 #### [facility] [place] ([id number]) [address] [place] [address] 93642 Eosinophils/100 WBC (Bld) 1.3 % Normal [facility] Comment on above: Performed By: #### C BCA, BMP, 07831-1, 37508-0, 95585-5 #### [facility] [place] ([id number]) [address] [place] [address] 27561 Erythrocyte distribution width (RBC) [Ratio] 19.4 % High 11.5-15.0 [facility] Comment on above: Performed By: #### C BCA, BMP, 41891-3, 94508-4, 70829-9 #### [facility] [place] ([id number]) [address] [place] [address] 93556 Hematocrit (Bld) [Volume fraction] 33.5 % Low 35-47 [facility] Comment on above: Performed By: #### C BCA, BMP, , 08091-3, 15929-3 #### [facility] [place] ([id number]) [address] [place] [address] 41440 Hemoglobin (Bld) [Mass/Vol] 10.6 g/dL Low 11.7-15.5 [facility] Comment on above: Performed By: #### C BCA, BMP, , 13370-2, 57684-8 #### [facility] [place] ([id number]) [address] [place] [address] 50879 Lymphocytes (Bld) [#/Vol] 2.4 10*3/uL Normal 1.0-3.5 [facility] Comment on above: Performed By: #### C BCA, BMP, 78881-6, 58121-5, 59942-5 #### [facility] [place] ([id number]) [address] [place] [address] 83578 Lymphocytes/100 WBC (Bld) 17.2 % Normal [facility] Comment on above: Performed By: #### C BCA, BMP, 61803-1, 36631-4, 52424-1 #### [facility] [place] ([id number]) [address] [place] [address] 47142 MCH (RBC) [Entitic mass] 21.7 pg Low 27-34 [facility] Comment on above: Performed By: #### C BCA, BMP, 19911-3, 69580-4, 48572-2 #### [facility] [place] ([id number]) [address] [place] [address] 72472 MCHC (RBC) [Mass/Vol] 31.6 g/dL Low 32-36 [facility] Comment on above: Performed By: #### Maryjo BCA, BMP, 67001-6, 66752-5, 89267-6 #### [facility] [place] ([id number]) [address] [place] [address] 90772 MCV (RBC) [Entitic vol] 69 fL Low 80-100 [facility] Comment on above: Performed By: #### C BCA, BMP, , 87883-8, 48515-0 #### [facility] [place] ([id number]) [address] [place] [address] 28543 Monocytes (Bld) [#/Vol] 0.7 10*3/uL Normal 0-0.9 [facility] Comment on above: Performed By: #### C BCA, BMP, 41789-6, 38159-4, 46079-6 #### [facility] [place] ([id number]) [address] [place] [address] 74131 Monocytes/100 WBC (Bld) 4.8 % Normal P [facility] Comment on above: Performed By: #### Maryjo BCA, BMP, 34437-4, 34734-3, 44943-9 #### [facility] [place] ([id number]) [address] [place] [address] 07928 Neutrophils/100 WBC (Bld) 75.6 % Normal [facility] Comment on above: Performed By: #### C MARIETTA, BMP, 35378-6, 05054-9, 60425-9 #### [facility] [place] ([id number]) [address] [place] [address] 06980 Platelet mean volume (Bld) [Entitic vol] 6.6 fL Low 7-12 [facility] Comment on above: Performed By: #### Maryjo MCMANUS, BMP, 65711-9, 52562-9, 13569-2 #### [facility] [place] ([id number]) [address] [place] [address] 64117 Platelets (Bld) [#/Vol] 333 10*3/uL Normal 150-450 [facility] Comment on above: Performed By: #### Maryjo MCMANUS, BMP, 09942-1, 65335-3, 29669-9 #### [facility] [place] ([id number]) [address] [place] [address] 73961 RBC COUNT 4.88 X10E12/L Normal 3.80-5.20 [facility] Comment on above: Performed By: #### Maryjo MCMANUS, BMP, 68333-6, 31105-6, 19737-7 #### [facility] [place] ([id number]) [address] [place] [address] 70461 RBC morphology finding Nom (Bld) REVIEWED Normal [facility] Comment on above: Performed By: #### Maryjo BCA, BMP, 59216-3, 23663-2, 97246-2 #### [facility] [place] ([id number]) [address] [place] [address] 86832 WBC (Bld) [#/Vol] 14.1 10*3/uL High 4.0-11.0 [facility] Comment on above: Performed By: #### Maryjo MCMANUS, BMP, 31724-0, 78015-9, 59028-4 #### [facility] [place] ([id number]) [address] [place] [address] 21307 Fibrin D-dimer DDU (PPP) [Ma ss/Vol]on 02-28-2024 D DIMER <150 Normal <255 [facility] Comment on above: Result Comment: Results <255 ng/mL DDU: The presence of a VTE can safely be excluded with a negative D-Dimer result and Wells score. A negative result doesn't exclude the possibility of DIC. The test be repeated along with other diagnostic tests if the patient's symptoms persist or worsen. [email or web address] Performed By: #### C MARIETTA BMP, , 24561-8, 05819-6 #### [facility] [place] ([id number]) [address] [place] [address] 76008 MAGNESIUMon 02-28-2024 Magnesium [Mass/Vol] 1.8 mg/dL Normal 1.8-2.6 [facility] Comment on above: Performed By: #### C MARIETTA BMP, , 61112-5, 60283-3 #### [facility] [place] ([id number]) [address] [place] [address] 47652 Troponin I.cardiac High sens itivity method [Mass/Vol]on 02-28-2024 TROPONIN I, HIGH SENSITIVITY <2 Normal <16 [facility] Comment on above: Performed By: #### C MARIETTA, BMP, , 53022-5, 11916-8 #### [facility] [place] ([id number]) [address] [place] [address] 24401 XR CHEST 2 VWSon 02-28-2024 XR CHEST 2 VWS XR CHEST 2 VWS XR CHEST 2 VWS History: . chest discomfort. Comparison: 03/30/2020 Impression: No acute pulmonary process. No pneumothorax or pleural effusion. Nonenlarged heart. Finalized by Ilir Amaya MD on 02/28/2024 9:49 PM Normal [facility] Chlamydia/GC DNA, Uron 08-15 Chlamydia Probe, Ur Negative Normal NEG [facility] Comment on above: Result Comment: CHLA [...] Performed By: #### T RCMOL, UC #### [facility] [address] [place], [place] [address] Care Trainer: Soren Gracia MD Gonorrhea Probe, Ur Negative Normal NEG [facility] Comment on above: Result Comment: NEIS [...] Performed By: #### T RCMOL, UC #### [facility] [address] [place], [place] [address] Care Trainer: Soren Gracia MD Trich Vag, Molecularon 08-13 Trich Vag, Molecular Negative Normal NEG [facility] Comment on above: Result Comment: T. v [...] Performed By: #### T RCMOL, UCGP #### [facility] [address] [place] [address] Care Trainer: Soren Gracia MD Source: .URINE Normal [facility] Comment on above: Performed By: #### T RCMOL, UCGP #### [facility] [address] [place] [address] Care Trainer: Soren Gracia MD Acetaminophenon 07-06-2021 Acetaminophen [Mass/Vol] ug/mL Low 10-30 [facility] Comment on above: Performed By: #### C OVRB #### [facility] [address] [place] [address] Care Trainer: Garrett Perez MD Acetaminophen LevelOrdered B y: Kalyan Dasiaelsi on 07-06-2021 Acetaminophen Level <5 Low 10 - 30 ug/mL [facility] Phone: Interpretation and review of laboratory results Abnormal [facility] Phone: [facility] Phone: CBC Auto DifferentialOrdered By: Kalyan Irizarry on 07-06-2021 Absolute Eos # 0.62 High [facility] Phone: Absolute Immature Granulocyte 0.07 [facility] Phone: Absolute Lymph # 3.20 [facility] Phone: Absolute [place] # 0.89 [facility] Phone: Basophils (Bld) [#/Vol] 0.10 10*3/uL [facility] Phone: Basophils/100 WBC (Bld) 1 % 0 - 2 % M [facility] Phone: Differential Type NOT REPORTED [facility] Phone: Eosinophils/100 WBC (Bld) 5 % High 1 - 4 % [facility] Phone: Hematocrit (Bld) [Volume fraction] 43.4 % 36.3 - 47.1 % [facility] Phone: Hemoglobin.gastrointest inal spec 1 Ql (Stl) 14.6 g/dL 11.9 - 15.1 g/dL [facility] Phone: Immature granulocytes/100 WBC (Bld) 1 % High 0 [facility] Phone: Interpretation and review of laboratory results Abnormal [facility] Phone: Lymphocytes/100 WBC (Bld) 26 % 24 - 43 % [facility] Phone: MCH (RBC) [Entitic mass] 28.3 pg 25.2 - 33.5 pg [facility] Phone: MCHC (RBC) [Mass/Vol] 33.6 g/dL 28.4 - 34.8 g/dL [facility] Phone: MCV (RBC) [Entitic vol] 84.3 fL 82.6 - 102.9 fL [facility] Phone: Monocytes/100 WBC (Bld) 7 % 3 - 12 % M [facility] Phone: NRBC Automated 0.0 0.0 per 100 WBC [facility] Phone: Platelet distribution width (Bld) [Ratio] 12.3 % 11.8 - 14.4 % [facility] Phone: Platelet Estimate NOT REPORTED [facility] Phone: Platelet mean volume (Bld) [Entitic vol] 8.7 fL 8.1 - 13.5 fL [facility] Phone: Platelets (Bld) [#/Vol] 273 10*3/uL [facility] Phone: RBC (Bld) [#/Vol] 5.15 10*6/uL High 3.95 - 5.1 1 m/uL [facility] Phone: RBC (Bld) [#/Vol] NOT REPORTED [facility]: Segmented neutrophils/100 WBC (Bld) 60 % 36 - 65 % [facility] Phone: Segs Absolute 7.61 [facility]: WBC (Bld) [#/Vol] 12.5 10*3/uL High [facility]: WBC (Bld) [#/Vol] NOT REPORTED [facility] Phone: [facility] Phone: CBC with Diffon 07-06-2021 Abs. Basophil 0.10 k/uL Normal 0.00-0.20 [facility] Comment on above: Performed By: #### D AU #### [facility] [address] [place] [address] Dr. [place], [facility]83 Care Trainer: Garrett Perez MD Abs.Imm.Granulocyte 0.07 k/uL Normal 0.00-0.30 [facility] Comment on above: Performed By: #### D AU #### [address] [place] [address] Care Trainer: Garrett Perez MD Abs.Neutrophil (Seg) 7.61 k/uL Normal 1.50-8.10 [facility] Comment on above: Performed By: #### D AU #### [address] [place], [place] [address] Care Trainer: Garrett Perez MD Basophils/100 WBC (Bld) 1 % Normal 0-2 [facility] Comment on above: Performed By: #### D AU #### [address] [place], [place] [address] Care Trainer: Garrett Perez MD Eosinophils (Bld) [#/Vol] 0.62 10*3/uL High 0.00-0.44 [facility] Comment on above: Performed By: #### D AU #### [facility] [address] [place], [facility]83 Care Trainer: Garrett Perez MD Eosinophils/100 WBC (Bld) 5 % High 1-4 [facility] Comment on above: Performed By: #### D AU #### [facility] [address] [place], [place] [address] Care Trainer: Garrett Perez MD Erythrocyte distribution width (RBC) [Ratio] 12.3 % Normal 11.8-14.4 [facility] Comment on above: Performed By: #### D AU #### [facility] [address] [place], [facility]83 Care Trainer: Garrett Perez MD Hematocrit (Bld) [Volume fraction] 43.4 % Normal 36.3-47.1 [facility] Comment on above: Performed By: #### D AU #### [facility] [address] [place], [facility]83 Care Trainer: Garrett Perez MD Hemoglobin (Bld) [Mass/Vol] 14.6 g/dL Normal 11.9-15.1 [facility] Comment on above: Performed By: #### D AU #### [address] [place], [facility]17 ( Care Trainer: Garrett Perez MD Immature granulocytes/100 WBC (Bld) 1 % High 0 [facility] Comment on above: Performed By: #### D AU #### [facility] [address] [place], [facility]83 Care Trainer: Garrett Perez MD Lymphocytes (Bld) [#/Vol] 3.20 10*3/uL Normal 1.10-3.70 [facility] Comment on above: Performed By: #### D AU #### [facility] [address] [place], [facility]83 Care Trainer: Garrett Perez MD Lymphocytes/100 WBC (Bld) 26 % Normal 24-43 [facility] Comment on above: Performed By: #### D AU #### [facility] [address] [place] [id number] Care Trainer: Garrett Perez MD MCH (RBC) [Entitic mass] 28.3 pg Normal 25.2-33.5 [facility] Comment on above: Performed By: #### D AU #### [facility] [address] [place] [address] Care Trainer: Garrett Perez MD MCHC (RBC) [Mass/Vol] 33.6 g/dL Normal 28.4-34.8 [facility] Comment on above: Performed By: #### D AU #### [address] [place], [facility] Care Trainer: Garrett Perez MD MCV (RBC) [Entitic vol] 84.3 fL Normal 82.6-102.9 [facility] Comment on above: Performed By: #### D AU #### [address] [place], [place] [id number] Care Trainer: Garrett Perez MD Monocytes (Bld) [#/Vol] 0.89 10*3/uL Normal 0.10-1.20 [facility] Comment on above: Performed By: #### D AU #### [facility] [address] [place] [address] Dr. [place], [place] [id number] Care Trainer: Garrett Perez MD Monocytes/100 WBC (Bld) 7 % Normal 3-12 [facility] Comment on above: Performed By: #### D AU #### [facility] [address] [place] [address] Dr. [place], [place] [id number] Care Trainer: Garrett Perez MD Neutrophil (Seg) 60 % Normal 36-65 [facility] Comment on above: Performed By: #### D AU #### [facility] [address] [place], [place] [id number] Care Trainer: Garrett Perez MD NRBC Automated 0.0 per 100 WBC Normal 0.0 [facility] Comment on above: Performed By: #### D AU #### [facility] [address] [place], [place] [id number] Care Trainer: Garrett Perez MD Platelet mean volume (Bld) [Entitic vol] 8.7 fL Normal 8.1-13.5 [facility] Comment on above: Performed By: #### D AU #### [address] [place], [place] 0308683 Care Trainer: Garrett Perez MD Platelets (Bld) [#/Vol] 273 10*3/uL Normal 138-453 [facility] Comment on above: Performed By: #### D AU #### [address] [place], [place] 0324083 Care Trainer: Garrett Perez MD RBC (Bld) [#/Vol] 5.15 10*6/uL High 3.95-5.11 [facility] Comment on above: Performed By: #### D AU #### [address] [place], [place] [id number] Care Trainer: Garrett Perez MD WBC (Bld) [#/Vol] 12.5 10*3/uL High 3.5-11.3 [facility] Comment on above: Performed By: #### D AU #### [facility] [address] [place] [address] Dr. [place], [place] 4852983 Care Trainer: Garrett Perez MD Auto Diff Performed NOT REPORTED Normal [facility] Comment on above: Performed By: #### D AU #### [facility] [address] [place] [address] Dr. [place], [facility]83 Care Trainer: Garrett Perez MD Platelet Estimate NOT REPORTED Normal [facility] Comment on above: Performed By: #### D AU #### [facility] [address] [place] [address] Care Trainer: Garrett Perez MD RBC morphology finding Nom (Bld) NOT REPORTED Normal [facility] Comment on above: Performed By: #### D AU #### [facility] [address] [place] [address] Care Trainer: Garrett Perez MD WBC Morphology NOT REPORTED Normal [facility] Comment on above: Performed By: #### D AU #### [facility] [address] [place] [address] Care Trainer: Garrett Perez MD COVID-19, RapidOrdered By: Maryjo Irizarry on 07-06-2021 SARS-CoV-2 (COVID-19) RNA MORENA+probe Ql (Unsp spec) Not detected Not Detected [facility] Comment on above: Rapid NAAT: The [...] management decisions. Fact sheet for Healthcare Providers: https://www.fda.gov/media/690099/download Fact sheet for Patients: https://www.fda.gov/media/782428/download Methodology: Isothermal Nucleic Acid Amplification Specimen Description .NASOPHARYNGEAL SWAB [facility]: [employer] Phone: Comp Metabolic Profon 2020 (cont.) Normal [facility] Comment on above: Result Comment: Aver age GFR for 20-29 years old: 116 mL/min/1.73sq m Chronic Kidney Disease: <60 mL/min/1.73sq m Kidney failure: <15 mL/min/1.73sq m eGFR calculated using average adult body mass. Additional eGFR calculator available at: http://www.Sxbbm/multiple_crcl_2012.htm Performed By: #### D AU #### [facility] [address] [place] [address] [place] [address] Care Trainer: Garrett Perez MD Albumin [Mass/Vol] 4.2 g/dL Normal 3.5-5.2 [facility] Comment on above: Performed By: #### D AU #### [facility] [address] [place] [address] Care Trainer: Garrett Perez MD Albumin/Glob Ratio 1.4 Normal 1.0-2.5 [facility] Comment on above: Performed By: #### D AU #### [address] [place] [address] Care Trainer: Garrett Perez MD Alkaline Phos 74 U/L Normal 35-104 [facility] Comment on above: Performed By: #### D AU #### [facility] [address] [place], [place] [id number] Care Trainer: Garrett Perez MD ALT [Catalytic activity/Vol] 31 U/L Normal 5-33 [facility] Comment on above: Performed By: #### D AU #### [facility] [address] [place] [address] Care Trainer: Garrett Perez MD Anion gap [Moles/Vol] 13 mmol/L Normal 9-17 [facility] Comment on above: Performed By: #### D AU #### [facility] [address] [place], [place] 5143283 Care Trainer: Garrett Perez MD AST [Catalytic activity/Vol] 19 U/L Normal <32 [facility] Comment on above: Performed By: #### D AU #### [facility] [address] [place], [place] 7939783 Care Trainer: Garrett Perez MD Bilirubin [Mass/Vol] 0.17 mg/dL Low 0.3-1.2 [facility] Comment on above: Performed By: #### D AU #### [facility] [address] [place], [place] 0914483 Care Trainer: Garrett Perez MD BUN/CRE Ratio 7 Low 9-20 [facility] Comment on above: Performed By: #### D AU #### [facility] [address] [place], [place] 4634383 Care Trainer: Garrett Perez MD Calcium [Mass/Vol] 9.2 mg/dL Normal 8.6-10.4 [facility] Comment on above: Performed By: #### D AU #### [facility] [address] [place] [address] [place] [address] Care Trainer: Garrett Perez MD Chloride [Moles/Vol] 104 mmol/L Normal 98-107 [facility] Comment on above: Performed By: #### D AU #### [facility] [address] [place], [place] 5741183 Care Trainer: Garrett Perez MD CO2 [Moles/Vol] 20 mmol/L Normal 20-31 [facility] Comment on above: Performed By: #### D AU #### [facility] [address] [place] [address] Dr. [place], [place] 5482783 Care Trainer: Garrett Perez MD Creatinine [Mass/Vol] 0.82 mg/dL Normal 0.50-0.90 [facility] Comment on above: Performed By: #### D AU #### [facility] [address] [place], [place] 4559383 Care Trainer: Garrett Perez MD GFR, Amer >60 Normal >60 [facility] Comment on above: Performed By: #### D AU #### [facility] [address] [place], [place] 6753983 Care Trainer: Garrett Perez MD GFR,non Amer >60 Normal >60 [facility] Comment on above: Performed By: #### D AU #### [facility] [address] [place], [place] 4692283 Care Trainer: Garrett Perez MD Glucose [Mass/Vol] 100 mg/dL High 70-99 [facility] Comment on above: Performed By: #### D AU #### [facility] [address] [place], [place] 4515283 Care Trainer: Garrett Perez MD Potassium [Moles/Vol] 4.0 mmol/L Normal 3.7-5.3 [facility] Comment on above: Performed By: #### D AU #### [facility] [address] [place] [address] [place] [address] Care Trainer: Garrett Perez MD Protein [Mass/Vol] 7.2 g/dL Normal 6.4-8.3 [facility] Comment on above: Performed By: #### D AU #### [facility] [address] [place] [address] Care Trainer: Garrett Perez MD Sodium [Moles/Vol] 137 mmol/L Normal 135-144 [facility] Comment on above: Performed By: #### D AU #### [facility] [address] [place], [place] 8546683 Care Trainer: Garrett Perez MD Staging: Normal [facility] Comment on above: Result Comment: Stag e 1: Some kidney damage normal GFR Stage 2: Mild kidney damage GFR 60-89 Stage 3: Moderate kidney damage GFR 30-59 Stage 4: Severe kidney damage GFR 15-29 Stage 5: Severe kidney damage GFR <15 ESRD - chronic treatment by dialysis or transplant Performed By: #### D AU #### [facility] [address] [place] [address] Care Trainer: Garrett Perez MD Urea nitrogen [Mass/Vol] 6 mg/dL Normal 6-20 [facility] Comment on above: Performed By: #### D AU #### [facility] [address] [place] [address] Care Trainer: Garrett Perez MD Comprehensive Metabolic Pane lOrdered By: Kalyan Irizarry on 07-06-2021 Albumin [Mass/Vol] 4.2 g/dL 3.5 - 5.2 g/dL [employer] Phone: Albumin/Globulin [Mass ratio] 1.4 {ratio} [employer] Phone: ALP (Bld) [Catalytic activity/Vol] 74 U/L 35 - 104 U/L [employer] Phone: ALT [Catalytic activity/Vol] 31 U/L 5 - 33 U/L [employer] Phone: Anion gap [Moles/Vol] 13 mmol/L 9 - 17 mmol/L [employer] Phone: AST [Catalytic activity/Vol] 19 U/L <32 [employer] Phone: Bilirubin [Mass/Vol] 0.17 mg/dL Low 0.3 - 1 .2 mg/dL [employer] Phone: Calcium [Mass/Vol] 9.2 mg/dL 8.6 - 10. 4 mg/dL [employer] Phone: Chloride [Moles/Vol] 104 mmol/L 98 - 10 7 mmol/L [employer] Phone: CO2 [Moles/Vol] 20 mmol/L 20 - 31 mmol/L [employer] Phone: Creatinine [Mass/Vol] 0.82 mg/dL 0.50 - 0.90 mg/dL [employer] Phone: Free PSA/Total PSA [Mass fraction] 7.2 g/dL 6.4 - 8.3 g/dL [employer] Phone: GFR >60 >60 mL/min [employer] Phone: GFR Non- >60 >60 mL/min [employer] Phone: Glucose [Mass/Vol] 100 mg/dL High 70 - 99 mg/dL [employer] Phone: Potassium [Moles/Vol] 4.0 mmol/L 3.7 - 5.3 mmol/L [employer] Phone: Sodium [Moles/Vol] 137 mmol/L 135 - 144 mmol/L [employer] Phone: Urea nitrogen (BldV) [Mass/Vol] 6 mg/dL 6 - 20 mg/dL [employer] Phone: Urea nitrogen/Creatinine (Bld) [Mass ratio] 7 Low [employer] Phone: Drug Scr, Abuse, Uron 2020 Amphetamine(s),Ur Negative Normal NEG [facility] Comment on above: Performed By: #### D AU #### [facility] [address] [place] [address] Care Trainer: Garrett Perez MD Barbiturate(s),Ur Negative Normal NEG [facility] Comment on above: Performed By: #### D AU #### [facility] [address] [place] [address] Care Trainer: Garrett Perez MD Benzodiazepine(s) Negative Normal NEG [facility] Comment on above: Performed By: #### D AU #### [facility] [address] [place], [place] 4251183 Care Trainer: Garrett Perez MD Buprenorphrine, Ur Negative Normal [facility] Comment on above: Performed By: #### D AU #### [facility] [address] [place], [place] 5096883 Care Trainer: Garrett ePrez MD Cannabinoid(s),Ur Positive Abnormal NEG [facility] Comment on above: Performed By: #### D AU #### [facility] [address] [place], [place] 9843683 Care Trainer: Garrett Perez MD Cocaine Metabolite Negative Normal [facility] Comment on above: Performed By: #### D AU #### [facility] [address] [place], [facility]83 Care Trainer: Garrett Perez MD Methadone Ql (U) Negative Normal [facility] Comment on above: Performed By: #### D AU #### [facility] [address] [place], [facility]83 Care Trainer: Garrett Perez MD Methamphetamine, Ur Negative Normal [facility] Comment on above: Performed By: #### D AU #### [facility] [address] [place], [facility]83 Care Trainer: Garrett Perez MD Opiate(s), Ur Negative Normal [facility] Comment on above: Performed By: #### D AU #### [facility] [address] [place], [facility]83 Care Trainer: Garrett Perez MD Oxycodone, Urine Negative Normal [facility] Comment on above: Performed By: #### D AU #### [facility] [address] [place] [address] Care Trainer: Garrett Perez MD Phencyclidine, Ur Negative Normal NEG [facility] Comment on above: Performed By: #### D AU #### [facility] [address] [place] [address] Care Trainer: Garrett Perez MD Propoxyphene,Urine Negative Normal NEG [facility] Comment on above: Performed By: #### D AU #### [facility] [address] [place] [address] Care Trainer: Garrett Perez MD Tricyclic antidepressants Screen Ql (U) Negative Normal NEG [facility] Comment on above: Result Comment: Drug screen results are to be used for medical purposes only. All positive results are unconfirmed. Testing for employment or legal uses should be sent to a reference laboratory for confirmation. Performed By: #### D AU #### [facility] [address] [place] [address] Dr. [place], [place] [id number] Care Trainer: Garrett Perez MD Interpretive Info NOT REPORTED Normal [facility] Comment on above: Performed By: #### D AU #### [facility] [address] [place] [address] [place] [address] Care Trainer: Garrett Perez MD MDMA, Urine NOT REPORTED Normal NEG [facility] Comment on above: Performed By: #### D AU #### [facility] [address] [place] [address] [place] [address] Care Trainer: Garrett Perez MD EthanolOrdered By: Kalyan iglesias on 07-06-2021 Ethanol [Mass/Vol] mg/dL <10 mg/dL [facility]: Ethanol percent <0.010 <0.010 % [facility] Phone: [facility]: Ethanol Alcoholon 07-06-2021 Ethanol [Mass/Vol] mg/dL Normal <10 [facility] Comment on above: Performed By: #### C OVRB #### [facility] [address] [place] [address] Care Trainer: Garrett Perez MD Ethanol percent <0.010 Normal <0.010 [facility] Comment on above: Performed By: #### C OVRB #### [facility] [address] [place] [address] Care Trainer: Garrett Perez MD HCG Qualitative, SerumOrdere d By: Kalyan Irizarry on 07-06-2021 hCG Qual Negative NEGATIVE [facility] [employer] Phone: Comment on above: Specimens with hCG l evels near the threshold of the test (25 mIU/mL) may give a negative or indeterminate result. In such cases, another test should be performed with a new specimen in 48-72 hours. If early is suspected clinically in this setting, correlation with quantitative serum b-hCG level is suggested. [employer] has confirmed the use of plasma for this test. This has not been cleared or approved by the U.S. Food and Drug Administration. The FDA has determined that such clearance is not necessary. [employer] Phone: HCG Screen, Bloodon 07-06-20 21 HCG Screen, Blood Negative Normal NEG [facility] Comment on above: Result Comment: Spec imens with hCG levels near the threshold of the test (25 mIU/mL) may give a negative or indeterminate result. In such cases, another test should be performed with a new specimen in 48-72 hours. If early is suspected clinically in this setting, correlation with quantitative serum b-hCG level is suggested. [employer] has confirmed the use of plasma for this test. This has not been cleared or approved by the U.S. Food and Drug Administration. The FDA has determined that such clearance is not necessary. Performed By: #### D AU #### [facility] [address] [place] [address] Care Trainer: Garrett Perez MD Laboratory - Chemistry and C hemistry - challengeOrdered By: Kalyan Irizarry on 07-06-2021 GFR/1.73 sq M.predicted MDRD (S/P/Bld) [Vol rate/Area] [facility] [employer] Phone: Comment on above: Average GFR for 20-2 9 years old: 116 mL/min/1.73sq m Chronic Kidney Disease: <60 mL/min/1.73sq m Kidney failure: <15 mL/min/1.73sq m eGFR calculated using average adult body mass. Additional eGFR calculator available at: http://www.Sxbbm/multiple_crcl_2012.htm Stage 1: Some kidney damage normal GFR Stage 2: Mild kidney damage GFR 60-89 Stage 3: Moderate kidney damage GFR 30-59 Stage 4: Severe kidney damage GFR 15-29 Stage 5: Severe kidney damage GFR <15 ESRD - chronic treatment by dialysis or transplant No Panel InformationOrdered By: Kalyan Irizarry on 07-06-2021 Interpretation and review of laboratory results Abnormal [employer] Phone: [employer] Phone: [id number] 07-06-2021 SARS-CoV-2 (COVID-19) RNA MORENA+probe Ql (Unsp spec) Not detected Normal [facility] Comment on above: Result Comment: Rapid [...] management decisions. Fact sheet for Healthcare Providers: https://www.fda.gov/media/469616/download Fact sheet for Patients: https://www.fda.gov/media/936478/download Methodology: Isothermal Nucleic Acid Amplification Performed By: #### C OVRB #### [facility] [address] [place], [place] 9415283 Care Trainer: Garrett Perez MD Salicylateon 07-06-2021 Salicylate <1 Low 3-10 [facility] Comment on above: Performed By: #### D AU #### [facility] [address] [place], [place] 0005083 Care Trainer: Garrett Perez MD SalicylateOrdered By: Gil Irizarry on 07-06-2021 Salicylate Lvl <1 Low 3 - 10 mg/dL [facility] Work Phone: Urinalysis w/ Microon 2020 ----- Normal [facility] Comment on above: Performed By: #### C OVRB #### [facility] [address] [place], [place] 6769483 Care Trainer: Garrett Perez MD Bacteria 1+ Abnormal NONE [facility] Comment on above: Performed By: #### C OVRB #### [facility] [address] [place], [place] 8970983 Care Trainer: Garrett Perez MD Bilirubin, SemiQt,Ur Negative Normal NEG [facility] Comment on above: Performed By: #### C OVRB #### [facility] [address] [place], [place] 7575483 Care Trainer: Garrett Perez MD Blood, Urine Negative Normal NEG [facility] Comment on above: Performed By: #### C OVRB #### [facility] [address] [place], [place] 2812183 Care Trainer: Garrett Perez MD Clarity (U) CLEAR Normal CLEAR [facility] Comment on above: Performed By: #### C OVRB #### [facility] [address] [place], [place] 0737783 Care Trainer: Garrett Perez MD Color (U) YELLOW Normal YEL [facility] Comment on above: Performed By: #### C OVRB #### [facility] [address] [place], [place] 6844983 Care Trainer: Garrett Perez MD Epithelial cells LM Ql (Urine sed) 5 TO 10 Normal 0-25 [facility] Comment on above: Performed By: #### C OVRB #### [facility] [address] [place], [place] 9250883 Care Trainer: Garrett Perez MD Glucose Ql (U) Negative Normal NEG [facility] Comment on above: Performed By: #### C OVRB #### [facility] [address] [place] [address] Dr. [place], [place] 7092783 Care Trainer: Garrett Perez MD Ketones Ql (U) Negative Normal NEG [facility] Comment on above: Performed By: #### C OVRB #### [facility] [address] [place] [address] Dr. [place], [place] 3543883 Care Trainer: Garrett Perez MD Leukocyte esterase Test strip Ql (U) Negative Normal NEG [facility] Comment on above: Performed By: #### C OVRB #### [facility] [address] [place] [address] [place] [address] Care Trainer: Garrett Perez MD Mucus Strands 1+ Abnormal NONE [facility] Comment on above: Performed By: #### C OVRB #### [facility] [address] [place], [place] 8790183 Care Trainer: Garrett Perez MD Nitrite,Ur Negative Normal NEG [facility] Comment on above: Performed By: #### C OVRB #### [facility] [address] [place], [place] 8322183 Care Trainer: Garrett Perez MD PH,Ur 6.5 Normal 5.0-9.0 [facility] Comment on above: Performed By: #### C OVRB #### [facility] [address] [place], [place] 3621583 Care Trainer: Garrett Perez MD Protein Ql (U) Negative Normal NEG [facility] Comment on above: Performed By: #### C OVRB #### [facility] [address] [place], [place] 3106383 Care Trainer: Garrett Perez MD Spec. [place],Ur 1.020 Normal 1.010-1.020 [facility] Comment on above: Performed By: #### C OVRB #### [facility] [address] [place] [address] Care Trainer: Garrett Perez MD Urine RBC's 0 TO 2 Normal 0-2 [facility] Comment on above: Performed By: #### C OVRB #### [facility] [address] [place], [facility]83 Care Trainer: Garrett Perez MD Urine WBC's 0 TO 2 Normal 0-5 [facility] Comment on above: Performed By: #### C OVRB #### [address] [place] [address] Care Trainer: Garrett Perez MD Urobilinogen,Ur Normal Normal NORM [facility] Comment on above: Performed By: #### C OVRB #### [facility] [address] [place], [facility]83 Care Trainer: Garrett Perez MD Amorphous sediment LM Ql (Urine sed) NOT REPORTED Normal NONE [facility] Comment on above: Performed By: #### C OVRB #### [facility] [address] [place], [place] 0641583 Care Trainer: Garrett Perez MD Casts NOT REPORTED Normal [facility] Comment on above: Performed By: #### C OVRB #### [facility] [address] [place], [place] 6263483 Care Trainer: Garrett Perez MD Comment NOT REPORTED Normal [facility] Comment on above: Performed By: #### C OVRB #### [facility] [address] [place], [place] 8118883 Care Trainer: Garrett Perez MD Crystals LM Nom (Urine sed) NOT REPORTED Normal [facility] Comment on above: Performed By: #### C OVRB #### [facility] [address] [place], [place] 0364083 Care Trainer: Garrett Perez MD Epithelial, Renal NOT REPORTED Normal [address] [place] [address] Comment on above: Performed By: #### C OVRB #### [facility] [address] [place], [place] 0387283 Care Trainer: Garrett Perez MD Other Observations NOT REPORTED Normal NREQ [facility] Comment on above: Performed By: #### C OVRB #### [facility] [address] [place] [address] Care Trainer: Garrett Perez MD Trichomonas NOT REPORTED Normal [facility] Comment on above: Performed By: #### C OVRB #### [facility] [address] [place] [address] Dr. [place], [place] 8961483 Care Trainer: Garrett Perez MD Yeast NOT REPORTED Normal NONE [facility] Comment on above: Performed By: #### C OVRB #### [facility] [address] [place], [place] 2881583 Care Trainer: Garrett Perez MD Urinalysis with microscopicO rdered By: Kalyan Irizarry on 07-06-2021 - [facility] [employer] Phone: Amorphous, UA NOT REPORTED None [facility] Phone: Bacteria, UA 1+ Abnormal None [facility] Phone: Bilirubin Urine Negative NEGATIVE [facility] Work Phone: Casts UA NOT REPORTED /LPF [facility] [employer] Work Phone: Color, UA YELLOW YELLOW [facility]: Crystals, UA NOT REPORTED None /HPF [facility] [employer] Work Phone: Epithelial Cells UA 5 TO 10 [facility] [employer] Work Phone: Glucose, Ur Negative NEGATIVE [facility] Phone: Interpretation and review of laboratory results Abnormal [facility] Phone: Ketones Ql (U) Negative NEGATIVE [facility] [employer] Work Phone: Leukocyte esterase Test strip Ql (U) Negative NEGATIVE [facility] Phone: Mucus, UA 1+ Abnormal None [facility] Phone: Nitrite, Urine Negative NEGATIVE [facility] Phone: Other Observations UA NOT REPORTED NOT REQ. [facility] Phone: pH, UA 6.5 [facility] [employer] Work Phone: Protein, UA Negative NEGATIVE [facility] Phone: RBC, UA 0 TO 2 [facility] [employer] Work Phone: Renal Epithelial, UA NOT REPORTED 0 /HPF [facility] Work Phone: Specific [place], UA 1.020 [facility] [employer] Work Phone: Trichomonas, UA NOT REPORTED None [facility] [employer] Work Phone: Turbidity UA CLEAR CLEAR [facility] [employer] Work Phone: Urinalysis Comments NOT REPORTED [facility] Work Phone: Urine Hgb Negative NEGATIVE [facility] Phone: Urobilinogen, Urine Normal Normal [facility] [employer] Work Phone: WBC, UA 0 TO 2 [employer] Work Phone: Yeast, UA NOT REPORTED None [employer] Work Phone: [facility] Phone: Urine Drug ScreenOrdered By: Kalyan Irizarry on 07-06-2021 Amphetamine Screen, Ur Negative NEGATIVE [facility] [employer] Work Phone: Barbiturate Screen, Ur Negative NEGATIVE [facility] [employer] Work Phone: Benzodiazepine Screen, Urine Negative NEGATIVE [facility] [employer] Work Phone: Buprenorphine Urine Negative NEGATIVE [facility] Phone: Cannabinoid Scrn, Ur Positive Abnormal NEGATIVE [facility] [employer] Work Phone: Cocaine Metabolite, Urine Negative NEGATIVE [facility] Work Phone: Interpretation and review of laboratory results Abnormal [facility] Work Phone: MDMA, Urine NOT REPORTED NEGATIVE [facility] Work Phone: Methadone Screen, Urine Negative NEGATIVE [facility] [employer] Work Phone: Methamphetamine, Urine Negative NEGATIVE [facility] [employer] Work Phone: Opiates, Urine Negative NEGATIVE [facility] Work Phone: Oxycodone Screen, Ur Negative NEGATIVE [facility] [employer] Work Phone: Phencyclidine, Urine Negative NEGATIVE [facility] [employer] Work Phone: Propoxyphene, Urine Negative NEGATIVE [facility] Work Phone: Test Information NOT REPORTED [employer] Work Phone: Tricyclic Antidepressants, Urine Negative NEGATIVE [facility] [employer] Work Phone: Comment on above: Drug screen results are to be used for medical purposes only. All positive results are unconfirmed. Testing for employment or legal uses should be sent to a reference laboratory for confirmation. [employer] Work Phone: Acetaminophenon 05-15-2021 Acetaminophen [Mass/Vol] ug/mL Low 10-30 [facility] Comment on above: Performed By: #### D AU #### [facility] [address] [place] [address] Care Trainer: Garrett Perez MD Acetaminophen levelOrdered B y: Blanco Montalvo on 05-15-2021 Acetaminophen Level <5 Low 10 - 30 ug/mL [employer] Phone: Interpretation and review of laboratory results Abnormal [employer] Phone: [employer] Phone: CBC auto differentialOrdered By: Blanco Adamesain on 05-15-2021 Absolute Eos # 0.18 [employer] Phone: Absolute Immature Granulocyte 0.06 [employer] Phone: Absolute Lymph # 2.41 [employer] Phone: Absolute [place] # 0.83 [employer] Phone: Basophils (Bld) [#/Vol] 0.07 10*3/uL [employer] Phone: Basophils/100 WBC (Bld) 1 % 0 - 2 % [facility] [employer] Phone: Differential Type NOT REPORTED [employer] Phone: Eosinophils/100 WBC (Bld) 1 % 1 - 4 % [employer] Phone: Hematocrit (Bld) [Volume fraction] 45.1 % 36.3 - 47.1 % [employer] Phone: Hemoglobin.gastrointest inal spec 1 Ql (Stl) 15.0 g/dL 11.9 - 15.1 g/dL [employer] Phone: Immature granulocytes/100 WBC (Bld) 1 % High 0 [employer] Phone: Interpretation and review of laboratory results Abnormal [employer] Phone: Lymphocytes/100 WBC (Bld) 18 % Low 24 - 43 % [employer] Phone: MCH (RBC) [Entitic mass] 28.4 pg 25.2 - 33.5 pg [employer] Phone: MCHC (RBC) [Mass/Vol] 33.3 g/dL 28.4 - 34.8 g/dL [employer] Phone: MCV (RBC) [Entitic vol] 85.4 fL 82.6 - 102.9 fL [employer] Phone: Monocytes/100 WBC (Bld) 6 % 3 - 12 % [facility] [employer] Phone: NRBC Automated 0.0 0.0 per 100 WBC [facility] Phone: Platelet distribution width (Bld) [Ratio] 13.0 % 11.8 - 14.4 % [employer] Phone: Platelet Estimate NOT REPORTED [employer] Phone: Platelet mean volume (Bld) [Entitic vol] 8.3 fL 8.1 - 13.5 fL [employer] Phone: Platelets (Bld) [#/Vol] 301 10*3/uL [employer] Phone: RBC (Bld) [#/Vol] 5.28 10*6/uL High 3.95 - 5.1 1 m/uL [employer] Phone: RBC (Bld) [#/Vol] NOT REPORTED [facility] Phone: Segmented neutrophils/100 WBC (Bld) 73 % High 36 - 65 % [employer] Phone: Segs Absolute 9.71 High [employer] Phone: WBC (Bld) [#/Vol] 13.3 10*3/uL High [employer] Phone: WBC (Bld) [#/Vol] NOT REPORTED [facility] Work Phone: [facility] Work Phone: CBC with Diffon 05-15-2021 Abs. Basophil 0.07 k/uL Normal 0.00-0.20 [facility] Comment on above: Performed By: #### C DP, MICHAEL, CP, HCG #### [address] [place] [address] Care Trainer: Garrett Perez MD Abs.Imm.Granulocyte 0.06 k/uL Normal 0.00-0.30 [facility] Comment on above: Performed By: #### C DPMICHAEL, CP, HCG #### [address] [place] [address] Care Trainer: Garrett Perez MD Abs.Neutrophil (Seg) 9.71 k/uL High 1.50-8.10 [facility] Comment on above: Performed By: #### C MICHAEL BARR, CP, HCG #### [address] [place] [address] Care Trainer: Garrett Perez MD Basophils/100 WBC (Bld) 1 % Normal 0-2 [facility] Comment on above: Performed By: #### C MICHAEL BARR, CP, HCG #### [address] [place] [address] Care Trainer: Garrett Perez MD Eosinophils (Bld) [#/Vol] 0.18 10*3/uL Normal 0.00-0.44 [facility] Comment on above: Performed By: #### C DP, SALI, CP, HCG #### [address] [place], [place] [id number] Care Trainer: Garrett Perez MD Eosinophils/100 WBC (Bld) 1 % Normal 1-4 [facility] Comment on above: Performed By: #### C DP, SALI, CP, HCG #### [facility] [address] [place] [address] [place] [address] Care Trainer: Garrett Perez MD Erythrocyte distribution width (RBC) [Ratio] 13.0 % Normal 11.8-14.4 [facility] Comment on above: Performed By: #### C DP, SALI, CP, HCG #### [address] [place] [address] Care Trainer: Garrett Perez MD Hematocrit (Bld) [Volume fraction] 45.1 % Normal 36.3-47.1 [facility] Comment on above: Performed By: #### C DP, SALI, CP, HCG #### [address] [place] [address] Care Trainer: Garrett Perez MD Hemoglobin (Bld) [Mass/Vol] 15.0 g/dL Normal 11.9-15.1 [facility] Comment on above: Performed By: #### C DP, SALI, CP, HCG #### [address] [place] [address] Care Trainer: Garrett Perez MD Immature granulocytes/100 WBC (Bld) 1 % High 0 [facility] Comment on above: Performed By: #### C DP, SALI, CP, HCG #### [address] [place] [address] Care Trainer: Garrett Perez MD Lymphocytes (Bld) [#/Vol] 2.41 10*3/uL Normal 1.10-3.70 [facility] Comment on above: Performed By: #### C DP, SALI, CP, HCG #### [address] [place], [place] [address] Care Trainer: Garrett Perez MD Lymphocytes/100 WBC (Bld) 18 % Low 24-43 [facility] Comment on above: Performed By: #### C DP, SALI, CP, HCG #### [facility] [address] [place] [address] Care Trainer: Garrett Perez MD MCH (RBC) [Entitic mass] 28.4 pg Normal 25.2-33.5 [facility] Comment on above: Performed By: #### C DP, SALI, CP, HCG #### [facility] [address] [place] [address] Care Trainer: Garrett Perez MD MCHC (RBC) [Mass/Vol] 33.3 g/dL Normal 28.4-34.8 [facility] Comment on above: Performed By: #### C DP, SALI, CP, HCG #### [address] [place] [address] Care Trainer: Garrett Perez MD MCV (RBC) [Entitic vol] 85.4 fL Normal 82.6-102.9 [facility] Comment on above: Performed By: #### C DP, MICHAEL, CP, HCG #### [address] [place] [address] Care Trainer: Garrett Perez MD Monocytes (Bld) [#/Vol] 0.83 10*3/uL Normal 0.10-1.20 [facility] Comment on above: Performed By: #### C DP, SALI, CP, HCG #### [address] [place] [address] Care Trainer: Garrett Perez MD Monocytes/100 WBC (Bld) 6 % Normal 3-12 [facility] Comment on above: Performed By: #### C DP, SALI, CP, HCG #### [address] [place] [address] Care Trainer: Garrett Perez MD Neutrophil (Seg) 73 % High 36-65 [facility] Comment on above: Performed By: #### C DP SALI, CP, HCG #### [address] [place] [address] Care Trainer: Garrett Perez MD NRBC Automated 0.0 per 100 WBC Normal 0.0 [facility] Comment on above: Performed By: #### C DP, SALI, CP, HCG #### [address] [place], [place] [address] Care Trainer: Garrett Perez MD Platelet mean volume (Bld) [Entitic vol] 8.3 fL Normal 8.1-13.5 [facility] Comment on above: Performed By: #### C MICHAEL BARR, CP, HCG #### [address] [place] [address] Care Trainer: Garrett Perez MD Platelets (Bld) [#/Vol] 301 10*3/uL Normal 138-453 [facility] Comment on above: Performed By: #### C DPMICHAEL, CP, HCG #### [address] [place] [address] Care Trainer: Garrett Perez MD RBC (Bld) [#/Vol] 5.28 10*6/uL High 3.95-5.11 [facility] Comment on above: Performed By: #### C MICHAEL BARR, CP, HCG #### [address] [place], [facility] Care Trainer: Garrett Perez MD WBC (Bld) [#/Vol] 13.3 10*3/uL High 3.5-11.3 [facility] Comment on above: Performed By: #### C CORTNEY SALI, CP, HCG #### [address] [place] [address] Care Trainer: Garrett Perez MD Auto Diff Performed NOT REPORTED Normal [facility] Comment on above: Performed By: #### C DP, SALI, CP, HCG #### [facility] [address] [place], [place] [id number] Care Trainer: Garrett Perez MD Platelet Estimate NOT REPORTED Normal [facility] Comment on above: Performed By: #### C DP, SALI, CP, HCG #### [facility] [address] [place] [address] Care Trainer: Garrett Perez MD RBC morphology finding Nom (Bld) NOT REPORTED Normal [facility] Comment on above: Performed By: #### C DP, SALI, CP, HCG #### [facility] [address] [place] [address] [place] [address] Care Trainer: Garrett Perez MD WBC Morphology NOT REPORTED Normal [facility] Comment on above: Performed By: #### C DP, SALI, CP, HCG #### [address] [place], [place] [id number] Care Trainer: Garrett Perez MD COVID-19, RapidOrdered By: Nicolle Montalvo on 05-15-2021 SARS-CoV-2 (COVID-19) RNA MORENA+probe Ql (Unsp spec) Not detected Not Detected [facility] Work Phone: Comment on above: Rapid NAAT: [...] management decisions. Fact sheet for Healthcare Providers: https://www.fda.gov/media/587828/download Fact sheet for Patients: https://www.fda.gov/media/403054/download Methodology: Isothermal Nucleic Acid Amplification Specimen Description .NASOPHARYNGEAL SWAB [facility] Work Phone: [facility] Work Phone: Comp Metabolic Profon 2020 (cont.) Normal [facility] Comment on above: Result Comment: Aver age GFR for 20-29 years old: 116 mL/min/1.73sq m Chronic Kidney Disease: <60 mL/min/1.73sq m Kidney failure: <15 mL/min/1.73sq m eGFR calculated using average adult body mass. Additional eGFR calculator available at: http://www.Sxbbm/multiple_crcl_2011.htm Performed By: #### C MICHAEL BARR CP, HCG #### [facility] [address] [place] [address] [place] [address] Care Trainer: Garrett Perez MD Albumin [Mass/Vol] 4.4 g/dL Normal 3.5-5.2 [facility] Comment on above: Performed By: #### C MICHAEL BARR CP, HCG #### [address] [place] [address] Care Trainer: Garrett Perez MD Albumin/Glob Ratio 1.3 Normal 1.0-2.5 [facility] Comment on above: Performed By: #### C MICHAEL BARR CP, HCG #### [facility] [address] [place] [address] Care Trainer: Garrett Perez MD Alkaline Phos 82 U/L Normal 35-104 [facility] Comment on above: Performed By: #### C MICHAEL BARR CP, HCG #### [facility] [address] [place] [address] Care Trainer: Garrett Perez MD ALT [Catalytic activity/Vol] 40 U/L High 5-33 [facility] Comment on above: Performed By: #### C MICHAEL BARR CP, HCG #### [facility] [address] [place], [place] [address] Care Trainer: Garrett Perez MD Anion gap [Moles/Vol] 13 mmol/L Normal 9-17 [facility] Comment on above: Performed By: #### C DP, SALI, CP, HCG #### [facility] [address] [place] [address] Care Trainer: Garrett Perez MD AST [Catalytic activity/Vol] 26 U/L Normal <32 [facility] Comment on above: Performed By: #### C DP, SALI, CP, HCG #### [address] [place] [address]83 Care Trainer: Garrett Perez MD Bilirubin [Mass/Vol] 0.39 mg/dL Normal 0.3-1.2 [facility] Comment on above: Performed By: #### C DP, SALI, CP, HCG #### [address] [place], [place] [address]83 Care Trainer: Garrett Perez MD BUN/CRE Ratio 12 Normal 9-20 [facility] Comment on above: Performed By: #### C DP, SALI, CP, HCG #### [address] [place], [place] [address]883183 Care Trainer: Garrett Perez MD Calcium [Mass/Vol] 9.9 mg/dL Normal 8.6-10.4 [facility] Comment on above: Performed By: #### C DP, SALI, CP, HCG #### [address] [place], [place] 3307383 Care Trainer: Garrett Perez MD Chloride [Moles/Vol] 99 mmol/L Normal 98-107 [facility] Comment on above: Performed By: #### C DP, SALI, CP, HCG #### [address] [place], [place] [address]83 Care Trainer: Garrett Perez MD CO2 [Moles/Vol] 25 mmol/L Normal 20-31 [facility] Comment on above: Performed By: #### C DP, SALI, CP, HCG #### [facility] [address] [place], [place] [address] Care Trainer: Garrett Perez MD Creatinine [Mass/Vol] 0.81 mg/dL Normal 0.50-0.90 [facility] Comment on above: Performed By: #### C DP, SALI, CP, HCG #### [facility] [address] [place], [place] [address]83 Care Trainer: Garrett Perez MD GFR, Amer >60 Normal >60 [facility] Comment on above: Performed By: #### C DP, SALI, CP, HCG #### [facility] [address] [place] [address] Dr[place], [place] [address] Care Trainer: Garrett Perez MD GFR,non Amer >60 Normal >60 [facility] Comment on above: Performed By: #### C DP, SALI, CP, HCG #### [facility] [address] [place] [address] Dr[place], [place] [address]16683 Care Trainer: Garrett Perez MD Glucose [Mass/Vol] 86 mg/dL Normal 70-99 [facility] Comment on above: Performed By: #### C DP, SALI, CP, HCG #### [facility] [address] [place], [place] [address] Care Trainer: Garrett Perez MD Potassium [Moles/Vol] 3.7 mmol/L Normal 3.7-5.3 [facility] Comment on above: Performed By: #### C DP, SALI, CP, HCG #### [facility] [address] [place], [place] [address]383 Care Trainer: Garrett Perez MD Protein [Mass/Vol] 7.8 g/dL Normal 6.4-8.3 [facility] Comment on above: Performed By: #### C DP, MICHAEL, CP, HCG #### [facility] [address] [place] [address] Care Trainer: Garrett Perez MD Sodium [Moles/Vol] 137 mmol/L Normal 135-144 [facility] Comment on above: Performed By: #### C DP, SALI, CP, HCG #### [facility] [address] [place] [address] Care Trainer: Garrett Perez MD Staging: Normal [facility] Comment on above: Result Comment: Stag e 1: Some kidney damage normal GFR Stage 2: Mild kidney damage GFR 60-89 Stage 3: Moderate kidney damage GFR 30-59 Stage 4: Severe kidney damage GFR 15-29 Stage 5: Severe kidney damage GFR <15 ESRD - chronic treatment by dialysis or transplant Performed By: #### C DP, MICHAEL, CP, HCG #### [facility] [address] [place] [address] Care Trainer: Garrett Perez MD Urea nitrogen [Mass/Vol] 10 mg/dL Normal 6-20 [facility] Comment on above: Performed By: #### C DP, SALI, CP, HCG #### [facility] [address] [place] [address] Care Trainer: Garrett Perez MD Comprehensive Metabolic Pane lOrdered By: Blanco Montalvo on 05-15-2021 Albumin [Mass/Vol] 4.4 g/dL 3.5 - 5.2 g/dL [facility] Work Phone: Albumin/Globulin [Mass ratio] 1.3 {ratio} [facility] Phone: ALP (Bld) [Catalytic activity/Vol] 82 U/L 35 - 104 U/L [facility] Phone: ALT [Catalytic activity/Vol] 40 U/L High 5 - 33 U/L [facility] Phone: Anion gap [Moles/Vol] 13 mmol/L 9 - 17 mmol/L [facility] Phone: AST [Catalytic activity/Vol] 26 U/L <32 [facility] Phone: Bilirubin [Mass/Vol] 0.39 mg/dL 0.3 - 1 .2 mg/dL [facility] Phone: Calcium [Mass/Vol] 9.9 mg/dL 8.6 - 10. 4 mg/dL [facility] Phone: Chloride [Moles/Vol] 99 mmol/L 98 - 10 7 mmol/L [facility] Phone: CO2 [Moles/Vol] 25 mmol/L 20 - 31 mmol/L [facility] Phone: Creatinine [Mass/Vol] 0.81 mg/dL 0.50 - 0.90 mg/dL [facility] Phone: Free PSA/Total PSA [Mass fraction] 7.8 g/dL 6.4 - 8.3 g/dL [facility] Phone: GFR >60 >60 mL/min [employer] Phone: GFR Non- >60 >60 mL/min [facility] Phone: Glucose [Mass/Vol] 86 mg/dL 70 - 99 mg/dL [facility] Phone: Potassium [Moles/Vol] 3.7 mmol/L 3.7 - 5.3 mmol/L [facility] Phone: Sodium [Moles/Vol] 137 mmol/L 135 - 144 mmol/L [facility] Phone: Urea nitrogen (BldV) [Mass/Vol] 10 mg/dL 6 - 20 mg/dL [facility] Phone: Urea nitrogen/Creatinine (Bld) [Mass ratio] 12 [facility] Work Phone: Drug Scr, Abuse, Uron 2020 Amphetamine(s),Ur Negative Normal [facility] Comment on above: Performed By: #### C OVRB #### [facility] [address] [place], [place] 280[address]383 Care Trainer: Garrett Perez MD Barbiturate(s),Ur Negative Normal NEG [facility] Comment on above: Performed By: #### C OVRB #### [facility] [address] [place] [address] Care Trainer: Garrett Perez MD Benzodiazepine(s) Negative Normal NEG [facility] Comment on above: Performed By: #### C OVRB #### [facility] [address] [place], [place] [address] Care Trainer: Garrett Perez MD Buprenorphrine, Ur Negative Normal [facility] Comment on above: Performed By: #### C OVRB #### [facility] [address] [place] [address] Care Trainer: Garrett Perez MD Cannabinoid(s),Ur Positive Abnormal NEG [facility] Comment on above: Performed By: #### C OVRB #### [facility] [address] [place] [address] Care Trainer: Garrett Perez MD Cocaine Metabolite Negative Normal [facility] Comment on above: Performed By: #### C OVRB #### [facility] [address] [place], [place] [address]097383 Care Trainer: Garrett Perez MD Methadone Ql (U) Negative Normal [facility] Comment on above: Performed By: #### C OVRB #### [facility] [address] [place], [place] 07[address]483 Care Trainer: Garrett Perez MD Methamphetamine, Ur Negative Normal NEG [facility] Comment on above: Performed By: #### C OVRB #### [facility] [address] [place], [place] [address] Care Trainer: Garrett Perez MD Opiate(s), Ur Negative Normal NEG [facility] Comment on above: Performed By: #### C OVRB #### [facility] [address] [place], [place] [address]83 Care Trainer: Garrett Perez MD Oxycodone, Urine Negative Normal NEG [facility] Comment on above: Performed By: #### C OVRB #### [facility] [address] [place] [address] [place], [place] [address]83 Care Trainer: Garrett Perez MD Phencyclidine, Ur Negative Normal [facility] Comment on above: Performed By: #### C OVRB #### [facility] [address] [place] [address] Care Trainer: Garrett Perez MD Propoxyphene,Urine Negative Normal NEG [facility] Comment on above: Performed By: #### C OVRB #### [facility] [address] [place] [address] [place], [place] 9488483 Care Trainer: Garrett Perez MD Tricyclic antidepressants Screen Ql (U) Negative [facility] Comment on above: Result Comment: Drug screen results are to be used for medical purposes only. All positive results are unconfirmed. Testing for employment or legal uses should be sent to a reference laboratory for confirmation. Performed By: #### C OVRB #### [facility] [address] [place], [place] [address] Care Trainer: Garrett Perez MD Interpretive Info NOT REPORTED Normal [facility] Comment on above: Performed By: #### C OVRB #### [facility] [address] [place], [place] [address]83 Care Trainer: Garrett Perez MD MDMA, Urine NOT REPORTED Normal NEG [facility] Comment on above: Performed By: #### C OVRB #### [facility] [address] [place] [address] Care Trainer: Garrett Perez MD EthanolOrdered By: Blanco banks on 05-15-2021 Ethanol [Mass/Vol] mg/dL <10 mg/dL [facility]: Ethanol percent <0.010 <0.010 % [facility] Phone: [facility] Phone: Ethanol Alcoholon 05-15-2021 Ethanol [Mass/Vol] mg/dL Normal <10 [facility] Comment on above: Performed By: #### D AU #### [facility] [address] [place] [address] Care Trainer: Garrett Perez MD Ethanol percent <0.010 Normal <0.010 [facility] Comment on above: Performed By: #### D AU #### [facility] [address] [place] [address] Care Trainer: Garrett Perez MD HCG Qualitative, SerumOrdere d By: Blanco Montalvo on 05-15-2021 hCG Qual Negative NEGATIVE [facility] [employer] Phone: Comment on above: Specimens with hCG l evels near the threshold of the test (25 mIU/mL) may give a negative or indeterminate result. In such cases, another test should be performed with a new specimen in 48-72 hours. If early is suspected clinically in this setting, correlation with quantitative serum b-hCG level is suggested. [employer] has confirmed the use of plasma for this test. This has not been cleared or approved by the U.S. Food and Drug Administration. The FDA has determined that such clearance is not necessary. [employer] Phone: HCG Screen, Bloodon 05-15-20 HCG Screen, Blood Negative Normal NEG [facility] Comment on above: Result Comment: Spec imens with hCG levels near the threshold of the test (25 mIU/mL) may give a negative or indeterminate result. In such cases, another test should be performed with a new specimen in 48-72 hours. If early is suspected clinically in this setting, correlation with quantitative serum b-hCG level is suggested. [employer] has confirmed the use of plasma for this test. This has not been cleared or approved by the U.S. Food and Drug Administration. The FDA has determined that such clearance is not necessary. Performed By: #### C DP, SALI, CP, HCG #### [facility] [address] [place] [address] Care Trainer: Garrett Perez MD Laboratory - Chemistry and C hemistry - challengeOrdered By: Blanco Montalvo on 05-15-2021 GFR/1.73 sq M.predicted MDRD (S/P/Bld) [Vol rate/Area] [employer] Phone: Comment on above: Average GFR for 20-2 9 years old: 116 mL/min/1.73sq m Chronic Kidney Disease: <60 mL/min/1.73sq m Kidney failure: <15 mL/min/1.73sq m eGFR calculated using average adult body mass. Additional eGFR calculator available at: http://www.Sxbbm/multiple_crcl_2012.htm Stage 1: Some kidney damage normal GFR Stage 2: Mild kidney damage GFR 60-89 Stage 3: Moderate kidney damage GFR 30-59 Stage 4: Severe kidney damage GFR 15-29 Stage 5: Severe kidney damage GFR <15 ESRD - chronic treatment by dialysis or transplant Microscopic UrinalysisOrdere d By: Blanco Montalvo on 05-15-2021 - [employer] Phone: Amorphous, UA NOT REPORTED None [employer] Phone: Bacteria, UA TRACE Abnormal None [employer] Phone: Casts UA NOT REPORTED /LPF [employer] Work Phone: Crystals, UA NOT REPORTED None /HPF [employer] Phone: Epithelial Cells UA 2 TO 5 [facility] [employer] Phone: Interpretation and review of laboratory results Abnormal [facility]: Mucus, UA TRACE Abnormal None [facility] [employer] Phone: Other Observations UA NOT REPORTED NOT REQ. M [facility] [employer] Work Phone: RBC, UA 0 TO 2 [facility] [employer] Work Phone: Renal Epithelial, UA NOT REPORTED 0 /HPF Me [facility] [employer] Work Phone: Trichomonas, UA NOT REPORTED None [facility] [employer] Phone: WBC, UA 0 TO 2 [facility] [employer] Phone: Yeast, UA NOT REPORTED None [facility] [employer] Phone: [facility] [employer] Phone: No Panel InformationOrdered By: Blanco Montalvo on 05-15-2021 Interpretation and review of laboratory results Abnormal [facility]: [facility] [employer] Phone: [id number] 05-15-2021 SARS-CoV-2 (COVID-19) RNA MORENA+probe Ql (Unsp spec) Not detected Normal [facility] Comment on above: Result Comment: Rapid [...] management decisions. Fact sheet for Healthcare Providers: https://www.fda.gov/media/953246/download Fact sheet for Patients: https://www.fda.gov/media/186419/download Methodology: Isothermal Nucleic Acid Amplification Performed By: #### C OVRB #### [facility] [address] [place] [address] Care Trainer: Garrett Perez MD Salicylateon 05-15-2021 Salicylate <1 Low 3-10 [facility] Comment on above: Performed By: #### C DP, SALI, CP, HCG #### [facility] [address] [place] [address] Care Trainer: Garrett Perez MD SalicylateOrdered By: Blanco hwang on 05-15-2021 Salicylate Lvl <1 Low 3 - 10 mg/dL [facility] Work Phone: UA w/Reflex Cultureon 2020 Bilirubin, SemiQt,Ur Negative Normal NEG [facility] Comment on above: Performed By: #### C OVRB #### [facility] [address] [place] [address] Care Trainer: Garrett Perez MD Blood, Urine Negative Normal NEG [facility] Comment on above: Performed By: #### C OVRB #### [facility] [address] [place] [address] Care Trainer: Garrett Perez MD Clarity (U) CLEAR Normal CLEAR [facility] Comment on above: Performed By: #### C OVRB #### [facility] [address] [place] [address] Care Trainer: Garrett Perez MD Color (U) YELLOW Normal YEL [facility] Comment on above: Performed By: #### C OVRB #### [facility] [address] [place] [address] Care Trainer: Garrett Perez MD Glucose Ql (U) Negative Normal NEG [facility] Comment on above: Performed By: #### C OVRB #### [facility] [address] [place] [address] Dr[address] [place], [place] [id number] Care Trainer: Garrett Perez MD Ketones Ql (U) Negative Normal NEG [facility] Comment on above: Performed By: #### C OVRB #### [facility] [address] [place] [address] Dr[address] [place], [place] [id number] Care Trainer: Garrett Perez MD Leukocyte esterase Test strip Ql (U) Negative Normal NEG [facility] Comment on above: Performed By: #### C OVRB #### [address] [place], [place] [id number] Care Trainer: Garrett Perez MD Nitrite,Ur Negative Normal NEG [facility] Comment on above: Performed By: #### C OVRB #### [facility] [address] [place] [address] Dr. [place], [place] [id number] Care Trainer: Garrett Perez MD PH,Ur 8.5 Normal 5.0-9.0 [facility] Comment on above: Performed By: #### C OVRB #### [address] [place], [place] 8368383 Care Trainer: Garrett Perez MD Protein Ql (U) Negative Normal [facility] Comment on above: Performed By: #### C OVRB #### [facility] [address] [place] [address] Dr[address] [place], [place] [id number] Care Trainer: Garrett Perez MD Spec. [place],Ur 1.015 Normal 1.010-1.020 [facility] Comment on above: Performed By: #### C OVRB #### [address] [place] [address] Care Trainer: Garrett Perez MD Urobilinogen,Ur Normal Normal NORM [facility] Comment on above: Performed By: #### C OVRB #### [facility] [address] [place] [address] Care Trainer: Garrett Perez MD Comment NOT REPORTED Normal [facility] Comment on above: Performed By: #### C OVRB #### [facility] [address] [place] [address] Care Trainer: Garrett Perez MD Urinalysis Reflex to Culture Ordered By: Blanco Montalvo on 05-15-2021 Bilirubin Urine Negative NEGATIVE [facility] [employer] Phone: Color, UA YELLOW YELLOW [facility] [employer] Work Phone: Glucose, Ur Negative NEGATIVE [facility] [employer] Phone: Ketones Ql (U) Negative NEGATIVE [facility] [employer] Phone: Leukocyte esterase Test strip Ql (U) Negative NEGATIVE [facility] [employer] Phone: Nitrite, Urine Negative NEGATIVE [facility] [employer] Phone: pH, UA 8.5 [facility] [employer] Work Phone: Protein, UA Negative NEGATIVE [facility] [employer] Phone: Specific [place], UA 1.015 [facility] [employer] Phone: Turbidity UA CLEAR CLEAR [facility] [employer] Phone: Urinalysis Comments NOT REPORTED [employer] Work Phone: Urine Hgb Negative NEGATIVE [facility] [employer] Phone: Urobilinogen, Urine Normal Normal [facility] [employer] Phone: [facility] [employer] Work Phone: Urinalysis,Microon 1 ----- Normal [facility] Comment on above: Performed By: #### C OVRB #### [facility] [address] [place] [address] Care Trainer: Garrett Perez MD Bacteria TRACE Abnormal [facility] Comment on above: Performed By: #### C OVRB #### [facility] [address] [place] [address] Dr. [place], [place] [phone] Care Trainer: Garrett Perez MD Epithelial cells LM Ql (Urine sed) 2 TO 5 Normal 0-25 [facility] Comment on above: Performed By: #### C OVRB #### [facility] [address] [place], [place] 9894983 Care Trainer: Garrett Perez MD Mucus Strands TRACE Abnormal [facility] Comment on above: Performed By: #### C OVRB #### [address] [place], [place] 3404183 Care Trainer: Garrett Perez MD Urine RBC's 0 TO 2 Normal 0-2 [facility] Comment on above: Performed By: #### C OVRB #### [facility] [address] [place] [address] Dr. [place], [place] [phone] Care Trainer: Garrett Perez MD Urine WBC's 0 TO 2 Normal 0-5 [facility] Comment on above: Performed By: #### C OVRB #### [address] [place], [place] 1657383 Care Trainer: Garrett Perez MD Amorphous sediment LM Ql (Urine sed) NOT REPORTED Normal [facility] Comment on above: Performed By: #### C OVRB #### [facility] [address] [place] [address] Dr[address] [place], [place] [phone] Care Trainer: Garrett Perez MD Casts NOT REPORTED Normal [facility] Comment on above: Performed By: #### C OVRB #### [facility] [address] [place] [address] Dr[address] [place], [place] 7206783 Care Trainer: Garrett Perez MD Crystals LM Nom (Urine sed) NOT REPORTED Normal [facility] Comment on above: Performed By: #### C OVRB #### [facility] [address] [place] [address] Care Trainer: Garrett Perez MD Epithelial, Renal NOT REPORTED Normal 0 [facility] Comment on above: Performed By: #### C OVRB #### [facility] [address] [place], [place] [phone] Care Trainer: Garrett Perez MD Other Observations NOT REPORTED Normal NREQ [facility] Comment on above: Performed By: #### C OVRB #### [facility] [address] [place] [address] Care Trainer: Garrett Perez MD Trichomonas NOT REPORTED Normal NONE [facility] Comment on above: Performed By: #### C OVRB #### [facility] [address] [place], [place] 477[address] Care Trainer: Garrett Perez MD Yeast NOT REPORTED Normal NONE [facility] Comment on above: Performed By: #### C OVRB #### [facility] [address] [place], [place] 6066183 Care Trainer: Garrett Perez MD Urine Drug ScreenOrdered By: Blanco Montalvo on 05-15-2021 Amphetamine Screen, Ur Negative NEGATIVE [facility] [employer] Work Phone: Barbiturate Screen, Ur Negative NEGATIVE [facility] Work Phone: Benzodiazepine Screen, Urine Negative NEGATIVE [facility] Work Phone: Buprenorphine Urine Negative NEGATIVE [facility] Phone: Cannabinoid Scrn, Ur Positive Abnormal NEGATIVE [facility] [employer] Work Phone: Cocaine Metabolite, Urine Negative NEGATIVE [facility] Work Phone: Interpretation and review of laboratory results Abnormal [facility] [employer] Phone: MDMA, Urine NOT REPORTED NEGATIVE [facility] [employer] Phone: Methadone Screen, Urine Negative NEGATIVE M [facility] [employer] Work Phone: Methamphetamine, Urine Negative NEGATIVE Me [facility] [employer] Work Phone: Opiates, Urine Negative NEGATIVE [facility] [employer] Work Phone: Oxycodone Screen, Ur Negative NEGATIVE [facility] [employer] Work Phone: Phencyclidine, Urine Negative NEGATIVE [facility] [employer] Work Phone: Propoxyphene, Urine Negative NEGATIVE [facility] [employer] Work Phone: Test Information NOT REPORTED [facility] [employer] Phone: Tricyclic Antidepressants, Urine Negative NEGATIVE [facility] [employer] Phone: Comment on above: Drug screen results are to be used for medical purposes only. All positive results are unconfirmed. Testing for employment or legal uses should be sent to a reference laboratory for confirmation. [facility] Phone: Laboratory - Microbiology an d Antimicrobial susceptibilityOrdered By: Denny Lomeli on 04-23-2021 SARS-CoV-2 (COVID-19) RNA MORENA+probe Ql (Resp) Not detected (Not Detected ) [facility] Work Phone: Comment on above: Note: [...] of in vitro diagnostic tests for detection [id number] virus and/or diagnosis of COVID-19 infectionunder section [...] RNA MORENA+probe Ql (Unsp spec) Performed Health [facility] Work Phone: Vitamin Don 04-14-2021 Vitamin D 14.7 ng/mL Low 30.0-100.0 [facility] Comment on above: Result Comment: (<20 ng/mL) Deficiency This assay accurately quantifies the sum of vitamin D3, 25-Hydroxy and vitamin D2, 25-Hyroxy. Performed By: #### V ITD #### [facility] [address] [place] [address] CBC With Platelet No Differe ntialon 04-11-2021 Erythrocyte distribution width (RBC) [Ratio] 13.6 % Normal 11.5-14.5 [facility] Comment on above: Performed By: #### C BCND #### [facility] [address] [place] [address] Hematocrit (Bld) [Volume fraction] 43.5 % Normal 37.0-47.0 [facility] Comment on above: Performed By: #### C BCND #### [facility] [address] [place] [address] Hemoglobin (Bld) [Mass/Vol] 14.6 g/dL Normal 12.0-16.0 [facility] Comment on above: Performed By: #### C BCND #### [facility] [address] [place] [address] MCH (RBC) [Entitic mass] 28.6 pg Normal 27.0-31.3 [facility] Comment on above: Performed By: #### C BCND #### [facility] [address] [place] [address] MCHC 33.5 % Normal 33.0-37.0 [facility] Comment on above: Performed By: #### C BCND #### [facility] [address] [place] [address] MCV (RBC) [Entitic vol] 85.4 fL Normal 82.0-100.0 M [facility] Comment on above: Performed By: #### C BCND #### [facility] [address] [place] [address] Platelets (Bld) [#/Vol] 284 10*3/uL Normal 130-400 [facility] Comment on above: Performed By: #### C BCND #### [facility] [address] [place] [address] RBC (Bld) [#/Vol] 5.10 10*6/uL Normal 4.20-5.40 [facility] Comment on above: Performed By: #### C BCND #### [facility] [address] [place] [address] WBC (Bld) [#/Vol] 11.1 10*3/uL Critically high 4.8-10.8 [facility] Comment on above: Performed By: #### C BCND #### [facility] [address] [place] [address] Folateon 04-11-2021 Folate 15.3 ng/mL Normal 7.3-26.1 [facility] Comment on above: Result Comment: As o f 16, the methodology has changed. Results from this methodology should not be compared with results from previous methodology. Performed By: #### F OLAT #### [facility] [address] [place] [address] Lipid Panelon 04-11-2021 Cholesterol [Mass/Vol] 127 mg/dL Normal 0-199 [facility] Comment on above: Result Comment: ATP III Cholesterol classification is Desirable. Performed By: #### L IPID #### [facility] [address] [place] [address] Cholesterol in HDL [Mass/Vol] 32 mg/dL Low 40-59 [facility] Comment on above: Result Comment: ATP III [...] CHD Performed By: #### L IPID #### [facility] [address] [place] [address] Cholesterol in LDL [Mass/Vol] 75 mg/dL Normal 0-129 [facility] Comment on above: Result Comment: ATP III LDL Classification is Optimal. Performed By: #### L IPID #### [facility] [address] [place] [address] Triglyceride [Mass/Vol] 100 mg/dL Normal 0-150 [facility] Comment on above: Result Comment: ATP III Triglycerides Classification is Normal. Performed By: #### L IPID #### [facility] [address] [place] [address] TSH w/out Reflexon TSH w/out Reflex 1.020 uIU/mL Normal 0.440-3.86 [facility] Comment on above: Performed By: #### T SH #### [facility] [address] [place] [address] Vitamin B12on 04-11-2021 Cobalamin (Vitamin B12) [Mass/Vol] 1050 pg/mL Normal 232-1245 [facility] Comment on above: Performed By: #### B 12 #### [facility] [address] [place] [address] EKG 12 LeadOrdered By: Freddie Hussein on 04-10-2021 Atrial Rate 75 BPM [employer] Phone: P [place] 24 degrees [facility]: P-R Interval 140 ms [employer] Phone: Q-T Interval 384 ms [employer] Phone: QRS Duration 90 ms [employer] Phone: QTc Calculation (Bazett) 414 ms [employer] Phone: R [place] 29 degrees [employer] Phone: T [place] 20 degrees [employer] Phone: Ventricular Rate 70 BPM [employer] Phone: Normal sinus rhythm with sinus arrhythmia Possible Anterior infarct , age undetermined Abnormal ECG No previous ECGs available Confirmed by FORREST MENDIOLA ([id number]) on 04/10/2021 12:40:27 AM [employer] Phone: [place], Mhpn Incoming E kg Results From [employer] - 04/10/2021 12:40 AM EDT Normal sinus rhythm with sinus arrhythmia Possible Anterior infarct , age undetermined Abnormal ECG No previous ECGs available Confirmed by FORREST MENDIOLA ([id number]) on 04/10/2021 12:40:27 AM [employer] Phone: [employer] Phone: Acetaminophenon 04-09-2021 Acetaminophen [Mass/Vol] ug/mL Low 10-30 [facility] Comment on above: Performed By: #### A LCB, ACET #### [facility] [address] [place] [address] [place] [address] Care Trainer: Garrett Perez MD Acetaminophen LevelOrdered B y: Jm Hussein on 04-09-2021 Acetaminophen Level <5 Low 10 - 30 ug/mL [employer] Phone: Interpretation and review of laboratory results Abnormal [employer] Phone: [employer] Phone: CBC Auto DifferentialOrdered By: Jm Hussein on 04-09-2021 Absolute Eos # 0.07 [employer] Phone: Absolute Immature Granulocyte 0.03 [employer] Phone: Absolute Lymph # 2.20 [employer] Phone: Absolute [place] # 0.76 [employer] Phone: Basophils (Bld) [#/Vol] 0.05 10*3/uL [employer] Phone: Basophils/100 WBC (Bld) 0 % 0 - 2 % M [employer] Phone: Differential Type NOT REPORTED [employer] Phone: Eosinophils/100 WBC (Bld) 1 % 1 - 4 % [employer] Phone: Hematocrit (Bld) [Volume fraction] 45.2 % 36.3 - 47.1 % [employer] Phone: Hemoglobin.gastrointest inal spec 1 Ql (Stl) 15.0 g/dL 11.9 - 15.1 g/dL [employer] Phone: Immature granulocytes/100 WBC (Bld) 0 % 0 [employer] Phone: Interpretation and review of laboratory results Abnormal [employer] Phone: Lymphocytes/100 WBC (Bld) 18 % Low 24 - 43 % [employer] Phone: MCH (RBC) [Entitic mass] 28.6 pg 25.2 - 33.5 pg [employer] Phone: MCHC (RBC) [Mass/Vol] 33.2 g/dL 28.4 - 34.8 g/dL [employer] Phone: MCV (RBC) [Entitic vol] 86.3 fL 82.6 - 102.9 fL [employer] Phone: Monocytes/100 WBC (Bld) 6 % 3 - 12 % M [employer] Phone: NRBC Automated 0.0 0.0 per 100 WBC [employer] Phone: Platelet distribution width (Bld) [Ratio] 13.0 % 11.8 - 14.4 % [employer] Phone: Platelet Estimate NOT REPORTED [employer] Phone: Platelet mean volume (Bld) [Entitic vol] 9.1 fL 8.1 - 13.5 fL [employer] Phone: Platelets (Bld) [#/Vol] 296 10*3/uL [employer] Phone: RBC (Bld) [#/Vol] 5.24 10*6/uL High 3.95 - 5.1 1 m/uL [employer] Phone: RBC (Bld) [#/Vol] NOT REPORTED [employer] Phone: Segmented neutrophils/100 WBC (Bld) 75 % High 36 - 65 % [employer] Phone: Segs Absolute 9.07 High [employer] Phone: WBC (Bld) [#/Vol] 12.2 10*3/uL High [employer] Phone: WBC (Bld) [#/Vol] NOT REPORTED [employer] Phone: [employer] Phone: CBC with Diffon 04-09-2021 Abs. Basophil 0.05 k/uL Normal 0.00-0.20 [facility] Comment on above: Performed By: #### C OVRB #### [facility] [address] [place] [address] Care Trainer: Garrett Perez MD Abs.Imm.Granulocyte 0.03 k/uL Normal 0.00-0.30 [facility] Comment on above: Performed By: #### C OVRB #### [facility] [address] [place], [place] 8627583 Care Trainer: Garrett Perez MD Abs.Neutrophil (Seg) 9.07 k/uL High 1.50-8.10 [facility] Comment on above: Performed By: #### C OVRB #### [facility] [address] [place] [address] Dr. [place] [id number] Care Trainer: Garrett Perez MD Basophils/100 WBC (Bld) 0 % Normal 0-2 [facility] Comment on above: Performed By: #### C OVRB #### [facility] [address] [place] [address] Dr. [place] 6950383 Care Trainer: Garrett Perez MD Eosinophils (Bld) [#/Vol] 0.07 10*3/uL Normal 0.00-0.44 [facility] Comment on above: Performed By: #### C OVRB #### [address] [place] [facility]83 Care Trainer: Garrett Perez MD Eosinophils/100 WBC (Bld) 1 % Normal 1-4 [facility] Comment on above: Performed By: #### C OVRB #### [address] [place], [place] 7527283 Care Trainer: Garrett Perez MD Erythrocyte distribution width (RBC) [Ratio] 13.0 % Normal 11.8-14.4 [facility] Comment on above: Performed By: #### C OVRB #### [address] [place] 8244783 Care Trainer: Garrett Perez MD Hematocrit (Bld) [Volume fraction] 45.2 % Normal 36.3-47.1 [facility] Comment on above: Performed By: #### C OVRB #### [address] [place], [place] [address]83 Care Trainer: Garrett Perez MD Hemoglobin (Bld) [Mass/Vol] 15.0 g/dL Normal 11.9-15.1 [facility] Comment on above: Performed By: #### C OVRB #### [facility] [address] [place], [place] 2449583 Care Trainer: Garrett Perez MD Immature granulocytes/100 WBC (Bld) 0 % Normal 0 [facility] Comment on above: Performed By: #### C OVRB #### [facility] [address] [place], [facility]83 Care Trainer: Garrett Perez MD Lymphocytes (Bld) [#/Vol] 2.20 10*3/uL Normal 1.10-3.70 [facility] Comment on above: Performed By: #### C OVRB #### [address] [place], [place] 3982483 Care Trainer: Garrett Perez MD Lymphocytes/100 WBC (Bld) 18 % Low 24-43 [facility] Comment on above: Performed By: #### C OVRB #### [address] [place], [place] 7244183 Care Trainer: Garrett Perez MD MCH (RBC) [Entitic mass] 28.6 pg Normal 25.2-33.5 [facility] Comment on above: Performed By: #### C OVRB #### [address] [place], [facility]83 Care Trainer: Garrett Perez MD MCHC (RBC) [Mass/Vol] 33.2 g/dL Normal 28.4-34.8 [facility] Comment on above: Performed By: #### C OVRB #### [address] [place] [address] Care Trainer: Garrett Perez MD MCV (RBC) [Entitic vol] 86.3 fL Normal 82.6-102.9 [facility] Comment on above: Performed By: #### C OVRB #### [facility] [address] [place] [address] Care Trainer: Garrett Perez MD Monocytes (Bld) [#/Vol] 0.76 10*3/uL Normal 0.10-1.20 [facility] Comment on above: Performed By: #### C OVRB #### [facility] [address] [place], [place] [id number] Care Trainer: Garrett Perez MD Monocytes/100 WBC (Bld) 6 % Normal 3-12 [facility] Comment on above: Performed By: #### C OVRB #### [facility] [address] [place], [place] [id number] Care Trainer: Garrett Perez MD Neutrophil (Seg) 75 % High 36-65 [facility] Comment on above: Performed By: #### C OVRB #### [facility] [address] [place], [place] 995[address]83 Care Trainer: Garrett Perez MD NRBC Automated 0.0 per 100 WBC Normal 0.0 [facility] Comment on above: Performed By: #### C OVRB #### [address] [place], [place] 3918783 Care Trainer: Garrett Perez MD Platelet mean volume (Bld) [Entitic vol] 9.1 fL Normal 8.1-13.5 [facility] Comment on above: Performed By: #### C OVRB #### [facility] [address] [place], [place] 0928383 Care Trainer: Garrett Perez MD Platelets (Bld) [#/Vol] 296 10*3/uL Normal 138-453 [facility] Comment on above: Performed By: #### C OVRB #### [facility] [address] [place], [place] 7059983 Care Trainer: Garrett Perez MD RBC (Bld) [#/Vol] 5.24 10*6/uL High 3.95-5.11 [facility] Comment on above: Performed By: #### C OVRB #### [facility] [address] [place] [address] Care Trainer: Garrett Perez MD WBC (Bld) [#/Vol] 12.2 10*3/uL High 3.5-11.3 [facility] Comment on above: Performed By: #### C OVRB #### [facility] [address] [place] [address] Care Trainer: Garrett Perez MD Auto Diff Performed NOT REPORTED Normal [facility] Comment on above: Performed By: #### C OVRB #### [address] [place] [address] Care Trainer: Garrett Perez MD Platelet Estimate NOT REPORTED Normal [facility] Comment on above: Performed By: #### C OVRB #### [facility] [address] [place] [address] [place] [address] Care Trainer: Garrett Perez MD RBC morphology finding Nom (Bld) NOT REPORTED Normal [facility] Comment on above: Performed By: #### C OVRB #### [address] [place] [address] Care Trainer: Garrett Perez MD WBC Morphology NOT REPORTED Normal [facility] Comment on above: Performed By: #### C OVRB #### [facility] [address] [place] [address] [place] [address] Care Trainer: Garrett Perez MD COVID-19, RapidOrdered By: Cody Hussein on 04-09-2021 SARS-CoV-2 (COVID-19) RNA MORENA+probe Ql (Unsp spec) Not detected Not Detected [facility] Work Phone: Comment on above: Rapid NAAT: [...] management decisions. Fact sheet for Healthcare Providers: https://www.fda.gov/media/788830/download Fact sheet for Patients: https://www.fda.gov/media/364120/download Methodology: Isothermal Nucleic Acid Amplification Specimen Description .NASOPHARYNGEAL SWAB [facility] [employer] Phone: [facility] [employer] Phone: Comp Metabolic Profon 2020 (cont.) Normal [facility] Comment on above: Result Comment: Aver age GFR for 20-29 years old: 116 mL/min/1.73sq m Chronic Kidney Disease: <60 mL/min/1.73sq m Kidney failure: <15 mL/min/1.73sq m eGFR calculated using average adult body mass. Additional eGFR calculator available at: http://www.Sxbbm/multiple_crcl_2012.htm Performed By: #### D AU #### [facility] [address] [place] [address] Care Trainer: Garrett Perez MD Albumin [Mass/Vol] 4.5 g/dL Normal 3.5-5.2 [facility] Comment on above: Performed By: #### D AU #### [facility] [address] [place] [address] Care Trainer: Garrett Perez MD Albumin/Glob Ratio 1.6 Normal 1.0-2.5 [facility] Comment on above: Performed By: #### D AU #### [facility] [address] [place], [place] 3105683 Care Trainer: Garrett Perez MD Alkaline Phos 72 U/L Normal 35-104 [facility] Comment on above: Performed By: #### D AU #### [facility] [address] [place], [place] 1783283 Care Trainer: Garrett Perez MD ALT [Catalytic activity/Vol] 71 U/L High 5-33 [facility] Comment on above: Performed By: #### D AU #### [facility] [address] [place], [place] 1018983 Care Trainer: Garrett Perez MD Anion gap [Moles/Vol] 10 mmol/L Normal 9-17 [facility] Comment on above: Performed By: #### D AU #### [facility] [address] [place], [place] [phone] Care Trainer: Garrett Perez MD AST [Catalytic activity/Vol] 35 U/L High <32 [facility] Comment on above: Performed By: #### D AU #### [facility] [address] [place], [place] 5107483 Care Trainer: Garrett Perez MD Bilirubin [Mass/Vol] 0.34 mg/dL Normal 0.3-1.2 [facility] Comment on above: Performed By: #### D AU #### [facility] [address] [place], [place] 3953783 Care Trainer: Garrtet Perez MD BUN/CRE Ratio 14 Normal 9-20 [facility] Comment on above: Performed By: #### D AU #### [facility] [address] [place], [place] 3982883 Care Trainer: Garrett Perez MD Calcium [Mass/Vol] 10.3 mg/dL Normal 8.6-10.4 [facility] Comment on above: Performed By: #### D AU #### [facility] [address] [place], [place] 5800783 Care Trainer: Garrett Perez MD Chloride [Moles/Vol] 103 mmol/L Normal 98-107 [facility] Comment on above: Performed By: #### D AU #### [facility] [address] [place], [place] 0421283 Care Trainer: Garrett Perez MD CO2 [Moles/Vol] 23 mmol/L Normal 20-31 [facility] Comment on above: Performed By: #### D AU #### [facility] [address] [place], [place] 1562583 Care Trainer: Garrett Perez MD Creatinine [Mass/Vol] 0.65 mg/dL Normal 0.50-0.90 [facility] Comment on above: Performed By: #### D AU #### [facility] [address] [place], [place] 5965083 Care Trainer: Garrett Perez MD GFR, Amer >60 Normal >60 [facility] Comment on above: Performed By: #### D AU #### [facility] [address] [place], [place] 6517483 Care Trainer: Garrett Perez MD GFR,non Amer >60 Normal >60 [facility] Comment on above: Performed By: #### D AU #### [facility] [address] [place], [place] 0829883 Care Trainer: Garrett Perez MD Glucose [Mass/Vol] 84 mg/dL Normal 70-99 [facility] Comment on above: Performed By: #### D AU #### [facility] [address] [place], [place] 2187083 Care Trainer: Garrett Perez MD Potassium [Moles/Vol] 4.2 mmol/L Normal 3.7-5.3 [facility] Comment on above: Performed By: #### D AU #### [facility] [address] [place] [address] [address] [place], [place] 2856683 Care Trainer: Garrett Perez MD Protein [Mass/Vol] 7.4 g/dL Normal 6.4-8.3 [facility] Comment on above: Performed By: #### D AU #### [facility] [address] [place] [address] Care Trainer: Garrett Perez MD Sodium [Moles/Vol] 136 mmol/L Normal 135-144 [facility] Comment on above: Performed By: #### D AU #### [address] [place] [address] Care Trainer: Garrett Perez MD Staging: Normal [facility] Comment on above: Result Comment: Stag e 1: Some kidney damage normal GFR Stage 2: Mild kidney damage GFR 60-89 Stage 3: Moderate kidney damage GFR 30-59 Stage 4: Severe kidney damage GFR 15-29 Stage 5: Severe kidney damage GFR <15 ESRD - chronic treatment by dialysis or transplant Performed By: #### D AU #### [address] [place] [address] Care Trainer: Garrett Perez MD Urea nitrogen [Mass/Vol] 9 mg/dL Normal 6-20 [facility] Comment on above: Performed By: #### D AU #### [address] [place] [address] Care Trainer: Garrett Perez MD Comprehensive Metabolic Pane lOrdered By: Jm Hussein on 04-09-2021 Albumin [Mass/Vol] 4.5 g/dL 3.5 - 5.2 g/dL [facility] Work Phone: Albumin/Globulin [Mass ratio] 1.6 {ratio} [facility] [employer] Phone: ALP (Bld) [Catalytic activity/Vol] 72 U/L 35 - 104 U/L [facility] Work Phone: ALT [Catalytic activity/Vol] 71 U/L High 5 - 33 U/L [employer] Phone: Anion gap [Moles/Vol] 10 mmol/L 9 - 17 mmol/L [employer] Phone: AST [Catalytic activity/Vol] 35 U/L High <32 [employer] Phone: Bilirubin [Mass/Vol] 0.34 mg/dL 0.3 - 1 .2 mg/dL [employer] Phone: Calcium [Mass/Vol] 10.3 mg/dL 8.6 - 10. 4 mg/dL [employer] Phone: Chloride [Moles/Vol] 103 mmol/L 98 - 10 7 mmol/L [employer] Phone: CO2 [Moles/Vol] 23 mmol/L 20 - 31 mmol/L [employer] Phone: Creatinine [Mass/Vol] 0.65 mg/dL 0.50 - 0.90 mg/dL [employer] Phone: Free PSA/Total PSA [Mass fraction] 7.4 g/dL 6.4 - 8.3 g/dL [employer] Phone: GFR >60 >60 mL/min [employer] Phone: GFR Non- >60 >60 mL/min [employer] Phone: Glucose [Mass/Vol] 84 mg/dL 70 - 99 mg/dL [employer] Phone: Potassium [Moles/Vol] 4.2 mmol/L 3.7 - 5.3 mmol/L [employer] Phone: Sodium [Moles/Vol] 136 mmol/L 135 - 144 mmol/L [employer] Phone: Urea nitrogen (BldV) [Mass/Vol] 9 mg/dL 6 - 20 mg/dL [facility] Work Phone: Urea nitrogen/Creatinine (Bld) [Mass ratio] 14 [facility] [employer] Phone: Drug Scr, Abuse, Uron 2020 Amphetamine(s),Ur Negative Normal NEG [facility] Comment on above: Performed By: #### C OVRB #### [facility] [address] [place] [address] [place] [address] Care Trainer: Garrett Perez MD Barbiturate(s),Ur Negative Normal [facility] Comment on above: Performed By: #### C OVRB #### [address] [place], [place] [phone] Care Trainer: Garrett Perez MD Benzodiazepine(s) Negative Normal NEG [facility] Comment on above: Performed By: #### C OVRB #### [address] [place], [place] 0152183 Care Trainer: Garrett Perez MD Buprenorphrine, Ur Negative Normal [facility] Comment on above: Performed By: #### C OVRB #### [address] [place], [place] 1168383 Care Trainer: Garrett Perez MD Cannabinoid(s),Ur Positive Abnormal NEG [facility] Comment on above: Performed By: #### C OVRB #### [facility] [address] [place] [address] [place] [address] Care Trainer: Garrett Perez MD Cocaine Metabolite Negative Normal [facility] Comment on above: Performed By: #### C OVRB #### [address] [place] [address] Care Trainer: Garrett Perez MD Methadone Ql (U) Negative Normal [facility] Comment on above: Performed By: #### C OVRB #### [facility] [address] [place] [address] Dr[address] [place], [place] 3963183 Care Trainer: Garrett Perez MD Methamphetamine, Ur Negative Normal NEG [facility] Comment on above: Performed By: #### C OVRB #### [facility] [address] [place], [place] 8[address]4583 Care Trainer: Garrett Perez MD Opiate(s), Ur Negative Normal NEG [facility] Comment on above: Performed By: #### C OVRB #### [facility] [address] [place], [place] 0477783 Care Trainer: Garrett Perez MD Oxycodone, Urine Negative Normal NEG [facility] Comment on above: Performed By: #### C OVRB #### [facility] [address] [place], [place] [phone] Care Trainer: Garrett Perez MD Phencyclidine, Ur Negative Normal NEG [facility] Comment on above: Performed By: #### C OVRB #### [facility] [address] [place], [place] [phone] Care Trainer: Garrett Perez MD Propoxyphene,Urine Negative Normal [facility] Comment on above: Performed By: #### C OVRB #### [facility] [address] [place], [place] 3062483 Care Trainer: Garrett Perez MD Tricyclic antidepressants Screen Ql (U) Negative Normal [facility] Comment on above: Result Comment: Drug screen results are to be used for medical purposes only. All positive results are unconfirmed. Testing for employment or legal uses should be sent to a reference laboratory for confirmation. Performed By: #### C OVRB #### [facility] [address] [place] [address] Care Trainer: Garrett Perez MD Interpretive Info NOT REPORTED [facility] Comment on above: Performed By: #### C OVRB #### [facility] [address] [place] [address] Care Trainer: Garrett Perez MD Drug Scr, Abuse, UrOrdered B y: Jm Hussein on 04-09-2021 MDMA, Urine NOT REPORTED Normal NEG [facility] Phone: Comment on above: Performed By: #### C OVRB #### [address] [place] [address] Care Trainer: Garrett Perez MD EthanolOrdered By: Jm chauhan on 04-09-2021 Ethanol [Mass/Vol] mg/dL <10 [facility]: Ethanol percent <0.010 <0.010 % [facility] Phone: [employer] Phone: Ethanol Alcoholon 04-09-2021 Ethanol [Mass/Vol] mg/dL Normal <10 [facility] Comment on above: Performed By: #### A LCB, ACET #### [address] [place] [address] Care Trainer: Garrett Perez MD Ethanol percent <0.010 Normal <0.010 [facility] Comment on above: Performed By: #### A LCB, ACET #### [address] [place] [address] Care Trainer: Garrett Perez MD HCG Qualitative, SerumOrdere d By: Jm Srikanthjennifer on 04-09-2021 hCG Qual Negative NEGATIVE [facility]: Comment on above: Specimens with hCG l evels near the threshold of the test (25 mIU/mL) may give a negative or indeterminate result. In such cases, another test should be performed with a new specimen in 48-72 hours. If early is suspected clinically in this setting, correlation with quantitative serum b-hCG level is suggested. [employer] has confirmed the use of plasma for this test. This has not been cleared or approved by the U.S. Food and Drug Administration. The FDA has determined that such clearance is not necessary. [facility] Phone: HCG Screen, Bloodon 04-09-20 21 HCG Screen, Blood Negative Normal NEG [facility] Comment on above: Result Comment: Spec imens with hCG levels near the threshold of the test (25 mIU/mL) may give a negative or indeterminate result. In such cases, another test should be performed with a new specimen in 48-72 hours. If early is suspected clinically in this setting, correlation with quantitative serum b-hCG level is suggested. [employer] has confirmed the use of plasma for this test. This has not been cleared or approved by the U.S. Food and Drug Administration. The FDA has determined that such clearance is not necessary. Performed By: #### D AU #### [facility] [address] [place] [address] [place] [address] Care Trainer: Garrett Perez MD Laboratory - Chemistry and C hemistry - challengeOrdered By: Jm Hussein on 04-09-2021 GFR/1.73 sq M.predicted MDRD (S/P/Bld) [Vol rate/Area] [facility] Phone: Comment on above: Average GFR for 20-2 9 years old: 116 mL/min/1.73sq m Chronic Kidney Disease: <60 mL/min/1.73sq m Kidney failure: <15 mL/min/1.73sq m eGFR calculated using average adult body mass. Additional eGFR calculator available at: http://www.[employer].Odojo/multiple_crcl_2012.htm Stage 1: Some kidney damage normal GFR Stage 2: Mild kidney damage GFR 60-89 Stage 3: Moderate kidney damage GFR 30-59 Stage 4: Severe kidney damage GFR 15-29 Stage 5: Severe kidney damage GFR <15 ESRD - chronic treatment by dialysis or transplant No Panel InformationOrdered By: Jm Hussein on 04-09-2021 Interpretation and review of laboratory results Abnormal [facility] Phone: [employer] Phone: [id number] 04-09-2021 SARS-CoV-2 (COVID-19) RNA MORENA+probe Ql (Unsp spec) Not detected Normal NOTDET [facility] Comment on above: Result Comment: Rapid [...] management decisions. Fact sheet for Healthcare Providers: https://www.fda.gov/media/904063/download Fact sheet for Patients: https://www.fda.gov/media/410635/download Methodology: Isothermal Nucleic Acid Amplification Performed By: #### C OVRB #### [facility] [address] [place] [address] Care Trainer: Garrett Perez MD SPECIMEN REJECTIONOrdered By : Jm Hussein on 04-09-2021 - NOT REPORTED [facility]: Ordered Test CDP [facility] Phone: Reason for Rejection Unable to perform testing: No specimen received. [employer] Phone: Specimen source Nom (Unsp spec) .BLOOD [facility] Phone: [facility]: Salicylateon 04-09-2021 Salicylate <1 Low 3-10 [facility] Comment on above: Performed By: #### D AU #### [facility] [address] [place] [address] Care Trainer: Garrett Perez MD SalicylateOrdered By: Jm Hussein on 04-09-2021 Salicylate Lvl <1 Low 3 - 10 mg/dL [facility] Work Phone: Specimen Rejectionon 021 Reason for rejection Unable to perform testing: No specimen received. Normal [facility] Comment on above: Performed By: #### C OVRB #### [facility] [address] [place], [place] [id number] Care Trainer: Garertt Perez MD Source of sample .BLOOD Normal [facility] Comment on above: Performed By: #### C OVRB #### [facility] [address] [place], [place] 3082383 Care Trainer: Garrett Perez MD Test ordered CDP Normal [facility] Comment on above: Performed By: #### C OVRB #### [facility] [address] [place], [place] 7490883 Care Trainer: Garrett Perez MD ----- NOT REPORTED Normal [facility] Comment on above: Performed By: #### C OVRB #### [facility] [address] [place], [place] 0209083 Care Trainer: Garrett Perez MD Urinalysis w/ Microon 2020 ----- Normal [facility] Comment on above: Performed By: #### C OVRB #### [facility] [address] [place], [place] 9294483 Care Trainer: Garrett Perez MD Bacteria 1+ Abnormal NONE [facility] Comment on above: Performed By: #### C OVRB #### [facility] [address] [place] [address] Care Trainer: Garrett Perez MD Bilirubin, SemiQt,Ur Negative Normal NEG [facility] Comment on above: Performed By: #### C OVRB #### [facility] [address] [place], [place] 8791783 Care Trainer: Garrett Perez MD Blood, Urine Negative Normal NEG [facility] Comment on above: Performed By: #### C OVRB #### [facility] [address] [place], [place] 5889283 Care Trainer: Garrett Perez MD Clarity (U) CLEAR Normal CLEAR [facility] Comment on above: Performed By: #### C OVRB #### [facility] [address] [place], [place] 0074783 Care Trainer: Garrett Perez MD Color (U) YELLOW Normal YEL [facility] Comment on above: Performed By: #### C OVRB #### [facility] [address] [place], [place] 6130883 Care Trainer: Garrett Perez MD Epithelial cells LM Ql (Urine sed) 5 TO 10 Normal 0-25 [facility] Comment on above: Performed By: #### C OVRB #### [facility] [address] [place], [place] 8300883 Care Trainer: Garrett Perez MD Glucose Ql (U) Negative Normal NEG [facility] Comment on above: Performed By: #### C OVRB #### [facility] [address] [place], [place] 2485083 Care Trainer: Garrett Perez MD Ketones Ql (U) Negative Normal NEG [facility] Comment on above: Performed By: #### C OVRB #### [facility] [address] [place], [place] 5345583 Care Trainer: Garrett Perez MD Leukocyte esterase Test strip Ql (U) Negative Normal NEG [facility] Comment on above: Performed By: #### C OVRB #### [facility] [address] [place] [address] Care Trainer: Garrett Perez MD Nitrite,Ur Negative Normal NEG [facility] Comment on above: Performed By: #### C OVRB #### [facility] [address] [place], [place] 5619183 Care Trainer: Garrett Perez MD PH,Ur 5.5 Normal 5.0-9.0 [facility] Comment on above: Performed By: #### C OVRB #### [facility] [address] [place], [place] 6680483 Care Trainer: Garrett Perez MD Protein Ql (U) Negative Normal NEG [facility] Comment on above: Performed By: #### C OVRB #### [facility] [address] [place], [place] 3169083 Care Trainer: Garrett Perez MD Spec. [place],Ur 1.025 High 1.010-1.020 [facility] Comment on above: Performed By: #### C OVRB #### [facility] [address] [place], [place] 4918483 Care Trainer: Garrett Perez MD Urine RBC's None Normal 0-2 [facility] Comment on above: Performed By: #### C OVRB #### [facility] [address] [place], [place] 4048083 Care Trainer: Garrett Perez MD Urine WBC's 0 TO 2 Normal 0-5 [facility] Comment on above: Performed By: #### C OVRB #### [facility] [address] [place], [place] 5880883 Care Trainer: Garrett Perez MD Urobilinogen,Ur Normal Normal NORM [facility] Comment on above: Performed By: #### C OVRB #### [facility] [address] [place], [place] 1066683 Care Trainer: Garrett Perez MD Amorphous sediment LM Ql (Urine sed) NOT REPORTED Normal NONE [facility] Comment on above: Performed By: #### C OVRB #### [facility] [address] [place], [place] 4624483 Care Trainer: Garrett Perez MD Casts NOT REPORTED Normal [facility] Comment on above: Performed By: #### C OVRB #### [facility] [address] [place], [place] 4994983 Care Trainer: Garrett Perez MD Comment NOT REPORTED Normal [facility] Comment on above: Performed By: #### C OVRB #### [facility] [address] [place], [place] 2541183 Care Trainer: Garrett Perez MD Crystals LM Nom (Urine sed) NOT REPORTED Normal [facility] Comment on above: Performed By: #### C OVRB #### [facility] [address] [place], [place] 1115383 Care Trainer: Garrett Perez MD Epithelial, Renal NOT REPORTED Normal 0 [facility] Comment on above: Performed By: #### C OVRB #### [facility] [address] [place] [address] Care Trainer: Garrett Perez MD Mucus Strands NOT REPORTED Normal [facility] Comment on above: Performed By: #### C OVRB #### [facility] [address] [place], [place] 27[address]83 Care Trainer: Garrett Perez MD Other Observations NOT REPORTED Normal [facility] Comment on above: Performed By: #### C OVRB #### [facility] [address] [place], [place] [id number] Care Trainer: Garrett Perez MD Trichomonas NOT REPORTED Normal [facility] Comment on above: Performed By: #### C OVRB #### [facility] [address] [place] [address] Care Trainer: Garrett Perez MD Yeast NOT REPORTED Normal NONE [facility] Comment on above: Performed By: #### C OVRB #### [facility] [address] [place] [address] Care Trainer: Garrett Perez MD Urinalysis with microscopicO rdered By: Kalyan Irizarry on 04-09-2021 - [facility] Work Phone: Amorphous, UA NOT REPORTED None [employer] Work Phone: Bacteria, UA 1+ Abnormal None [facility] Phone: Bilirubin Urine Negative NEGATIVE [facility] Phone: Casts UA NOT REPORTED /LPF [employer] Work Phone: Color, UA YELLOW YELLOW [employer] Work Phone: Crystals, UA NOT REPORTED None /HPF [employer] Work Phone: Epithelial Cells UA 5 TO 10 [employer] Work Phone: Glucose, Ur Negative NEGATIVE [employer] Work Phone: Interpretation and review of laboratory results Abnormal [employer] Work Phone: Ketones Ql (U) Negative NEGATIVE [facility] Phone: Leukocyte esterase Test strip Ql (U) Negative NEGATIVE [facility] Phone: Mucus, UA NOT REPORTED None [facility] Work Phone: Nitrite, Urine Negative NEGATIVE [facility] Phone: Other Observations UA NOT REPORTED NOT REQ. [facility], [facility].5 [facility]: Protein, UA Negative NEGATIVE [facility] Phone: RBC, UA None [facility] Work Phone: Renal Epithelial, UA NOT REPORTED 0 /HPF [facility] Work Phone: Specific [place], UA 1.025 [facility] Work Phone: Trichomonas, UA NOT REPORTED None [facility] Work Phone: Turbidity UA CLEAR CLEAR [facility] Work Phone: Urinalysis Comments NOT REPORTED [facility] Work Phone: Urine Hgb Negative NEGATIVE [facility] Work Phone: Urobilinogen, Urine Normal Normal [facility] Work Phone: WBC, UA 0 TO 2 [facility] Work Phone: Yeast, UA NOT REPORTED None [facility] Work Phone: [facility] Work Phone: Urine Drug ScreenOrdered By: [...] Phone: Methadone Screen, Urine Negative NEGATIVE [facility] Work Phone: Methamphetamine, Urine Negative NEGATIVE [facility] Work Phone: Opiates, Urine Negative NEGATIVE [facility] Work Phone: Oxycodone Screen, Ur Negative NEGATIVE [facility] Work Phone: Phencyclidine, Urine Negative NE[facility]IVE [facility] Work Phone: Propoxyphene, Urine Negative NEGATIVE [facility] Work Phone: Test Information NOT REPORTED [facility] Phone: Tricyclic Antidepressants, Urine Negative NEGATIVE [facility] Phone: Comment on above: Drug screen results are to be used for medical purposes only. All positive results are unconfirmed. Testing for employment or legal uses should be sent to a reference laboratory for confirmation. [facility] Phone: COVID-19 PCRon 06-09-2020 SARS-CoV-2, MORENA Not Detected Normal Not Detected [facility] Comment on above: Result Comment: This test was developed and its performance characteristics determined by [employer]. This test has not been FDA cleared [...] assay. Performed By: #### C VDPCR #### [facility] [address] [place] [id number] Cresencio Murphy CBC/PLATELET & AUTO DIFFEREN TIALon 06-12-2017 Basophils Auto #/vol (Bld) 0.0 10*3/uL Normal 0.0-0.1 [facility] Basophils/100 WBC Auto (Bld) 0 % Normal 0-1 [facility] CBC/PLATELET & AUTO DIFFERENTIAL 0.0 10*3/uL Normal - [facility] Comment on above: Result Comment: er 7 Eosinophils 0.0 10*3/uL Normal 0.0-0.4 [facility] Eosinophils/100 leukocytes 0 % Normal 0-5 [facility] Erythrocyte distribution width Auto Ratio (RBC) 12.9 % Normal 11.7-14.4 [facility] Erythrocytes (RBC) 4.79 10*6/uL Normal 4.20-5.40 [facility] Hematocrit (HCT) 40.0 % Normal 37.0-47.0 [facility] Hemoglobin mass conc (Bld) 14.0 g/dL Normal 11.5-16.0 [facility] Lymphocytes 1.8 10*3/uL Normal 0.9-2.5 [facility] Lymphocytes/100 leukocytes 10 % Low 13-44 [facility] MCH 29.2 pg Normal 27.0-31.0 [facility] MCHC mass conc (RBC) 35.0 g/dL Normal 31.5-36.0 [facility] MCV 83.5 fL Normal 82.0-101.0 [facility] Monocytes 1.0 10*3/uL Normal 0.1-1.0 [facility] Monocytes/100 leukocytes 6 % Normal 5-9 [facility] Neutrophils 14.5 10*3/uL High 2.1-6.5 [facility] Neutrophils/100 leukocytes 83 % High 39-75 [facility] Nucleated erythrocytes 0 % Normal - [facility] Platelet mean volume (PMV) 8.5 fL Normal 8.2-11.4 [facility] Platelets 239.0 10*3/uL Normal 130.0-400.0 [facility] WBC (Leukocytes) 17.6 10*3/uL High 4.4-10.2 [facility] CHEST PORTABLEon 06-12-2017 CHEST PORTABLE EXAM: Portable chest.CLINICAL STATEMENT: Syncopal episode today.COMPARISON: 10/31/2016.TECHNIQUE: Single mobile AP upright view chest at 3:21 PM.FINDINGS: Heart size within normal limits. There is no mediastinal widening.The lung cummins and pleural spaces are clear.IMPRESSION:No acute change.Dictated Physician: Loki PiperDictated On: 06/12/2017 15:30Interpreted By: Loki PiperTranscribed By: Cheo Piperigned By: Loki PiperSigned On: 06/12/2017 15:30 Normal [facility] HCG URINEon 06-12-2017 HCG.beta subunit ( test) Ql (U) Negative Normal Negative [facility] HCG.beta subunit ( test) Ql (U) SEE NOTE Normal - [facility] Comment on above: Result Comment: er 7 M I PANELon 06-12-2017 Anion gap 12.8 mmol/L Normal - [facility] BUN/Creatinine Ratio 10.2 mg/mg Normal [facility] Calcium 8.8 mg/dL Normal 8.5-10.1 [facility] Chloride 107 mmol/L Normal 98-107 [facility] CO2 27.1 mmol/L Normal 21.0-32.0 [facility] Creatinine 0.98 mg/dL Normal 0.55-1.02 [facility] eGFR (non-black) mL/min/{1.73_m2} Normal >60 [facility] Glucose mass conc 87 mg/dL Normal 70-110 [facility] M I PANEL SEE NOTE Normal - [facility] Comment on above: Result Comment: er 7 Magnesium 1.9 mg/dL Normal 1.8-2.4 [facility] Osmolality 283 mosm/kg [facility] Potassium molar conc 3.9 mmol/L Normal 3.5-5.1 [facility] Sodium 143 mmol/L Normal 136-145 [facility] Troponin I.cardiac mass conc ng/mL Normal 0.000-0.056 [facility] Urea nitrogen 10 mg/dL Normal 7-18 [facility] PT PROTIMEon 06-12-2017 INR Coag RelTime (PPP) 1.0 {INR} Normal - [facility] Prothrombin time (PT) Coag time (PPP) 10.5 s Normal 9.3-11.7 [facility] PT PROTIME SEE NOTE Normal [place] Comment on above: Result Comment: er 7 PTTon 06-12-2017 aPTT 24.8 s Normal 24.5-32.7 [facility] Comment on above: Result Comment: er 7 URINALYSIS W/ MICROSCOPIC if indicatedon 06-12-2017 Bilirubin Ql (U) Negative Normal Negative [facility] Blood Moderate Abnormal Negative [facility] Blood product type Clean catch Normal - [facility] Glucose mass conc Normal Normal Normal [facility] Protein Moderate Abnormal Negative [facility] Sq. Epithelial Cells 3 /[HPF] Abnormal None seen [facility] URINALYSIS W/ MICROSCOPIC if indicated 0 /[HPF] Normal 0-2 [facility] Comment on above: Result Comment: er 7 Urine, appearance CLEAR Normal Clear [facility] Urine, bacteria in sediment 1 /[HPF] Abnormal None seen [facility] Urine, color YELLOW Normal - [facility] Urine, ketones presence Negative Normal Negative [facility] Urine, nitrite presence Positive Abnormal Negative [facility] Urine, pH 7.0 [pH] Normal 5.0 - 9.0 [facility] Urine, specific gravity 1.010 Normal 1.01 0 - 1.030 [facility] Urine, urobilinogen Normal Normal Normal [facility] WBC (Leukocytes) 6 /[HPF] Abnormal 0-5 [facility] WBC (Leukocytes) Moderate Abnormal Negative [facility] Vital Signs Date Time Vital Sign Value Performing Clinician Facility 07-18-2024 16:27-0400 Body height 162.56 cm Denny Armani [employer] Work Phone: [facility] Work Phone: 07-18-2024 16:27-0400 Body mass index (BMI) [Ratio] 57.2 kg/m2 Denny Armani CHAVEZ Work Phone: [facility] Work Phone: 07-18-2024 16:27-0400 Body surface area Derived from formula 2.4 m2 Denny Armani CHAVEZ Work Phone: [facility] Work Phone: 07-18-2024 16:27-0400 Body temperature 97.6 [degF] Denny Armani CHAVEZ Work Phone: [facility] Work Phone: 07-18-2024 16:27-0400 Body weight 151.05 kg Denny Lomeli [employer] Work Phone: [facility] Work Phone: 07-18-2024 16:27-0400 Diastolic blood pressure 86 mm[Hg] Denny Landonen [employer] Work Phone: [facility] Work Phone: 07-18-2024 16:27-0400 Heart rate 103 /min Denny Lomeli [employer] Work Phone: [facility] Work Phone: 07-18-2024 16:27-0400 Respiratory rate 18 /min Denny Lomeli [employer] Work Phone: [facility] Work Phone: 07-18-2024 16:27-0400 SaO2% (BldA) [Mass fraction] 95 % Denny Lomeli [employer] Work Phone: [facility] Work Phone: 07-18-2024 16:27-0400 Systolic blood pressure 135 mm[Hg] Denny Armani [employer] Work Phone: [facility] Work Phone: 06-13-2024 17:46-0400 Diastolic blood pressure 84 mm[Hg] Denny Armani [employer] Work Phone: [facility] Comment on above: manual large 06-13-2024 17:46-0400 Systolic blood pressure 144 mm[Hg] Denny Armani [employer] Work Phone: [facility] Comment on above: manual large 06-13-2024 17:21-0400 Diastolic blood pressure 86 mm[Hg] Denny Armani [employer] Work Phone: [facility] Work Phone: 06-13-2024 17:21-0400 Systolic blood pressure 154 mm[Hg] Denny Armani [employer] Work Phone: [facility] Work Phone: 06-13-2024 16:45-0400 Body height 162.56 cm Denny Lomeli CNP Work Phone: [facility] Work Phone: 06-13-2024 16:45-0400 Body mass index (BMI) [Ratio] 57.9 kg/m2 Denny Lomeli CNP Work Phone: [facility] Work Phone: 06-13-2024 16:45-0400 Body surface area Derived from formula 2.4 m2 Denny Lomeli CNP Work Phone: [facility] Work Phone: 06-13-2024 16:45-0400 Body weight 153.14 kg Denny Lomeli CNP Work Phone: [facility] Work Phone: 06-13-2024 16:45-0400 Diastolic blood pressure 98 mm[Hg] Denny Lomeli CNP Work Phone: [facility] Work Phone: 06-13-2024 16:45-0400 Heart rate 103 /min Denny Lomeli CNP Work Phone: [facility] Work Phone: 06-13-2024 16:45-0400 SaO2% (BldA) [Mass fraction] 96 % Denny Lomeli CNP Work Phone: [facility] Work Phone: 06-13-2024 16:45-0400 Systolic blood pressure 151 mm[Hg] Denny Lomeli CNP Work Phone: [facility] Work Phone: 04-10-2024 16:50-0400 Diastolic blood pressure 89 mm[Hg] Denny Lomeli CNP Work Phone: [facility] 04-10-2024 16:50-0400 Heart rate 75 /min Denny Lomeli [employer] Work Phone: [facility] 04-10-2024 16:50-0400 Systolic blood pressure 137 mm[Hg] Denny Lomeli [employer] Work Phone: [facility] 04-10-2024 16:39-0400 Body height 162.56 cm Denny Lomeli [employer] Work Phone: [facility] 04-10-2024 16:39-0400 Body mass index (BMI) [Ratio] 54.6 kg/m2 Denny Lomeli [employer] Work Phone: [facility] 04-10-2024 16:39-0400 Body surface area Derived from formula 2.4 m2 Denny Lomeli [employer] Work Phone: [facility] 04-10-2024 16:39-0400 Body weight 144.24 kg Denny Lomeli [employer] Work Phone: [facility] 04-10-2024 16:39-0400 Diastolic blood pressure 94 mm[Hg] Denny Lomeli [employer] Work Phone: [facility] 04-10-2024 16:39-0400 Heart rate 75 /min Denny Lomeli [employer] Work Phone: [facility] 04-10-2024 16:39-0400 SaO2% (BldA) [Mass fraction] 98 % Denny Lomeli [employer] Work Phone: [facility] 04-10-2024 16:39-0400 Systolic blood pressure 161 mm[Hg] Denny Lomeli [employer] Work Phone: [facility] 01-17-2024 19:09-0400 Body height 162.56 cm Denny Lomeli [employer] Work Phone: [facility] 01-17-2024 19:09-0400 Body mass index (BMI) [Ratio] 52.7 kg/m2 Dennyartem Landonen [employer] Work Phone: [facility] 01-17-2024 19:09-0400 Body surface area Derived from formula 2.3 m2 Denny Lomeli CNP Work Phone: [facility] 01-17-2024 19:09-0400 Body weight 139.26 kg Denny Lomeli [employer] Work Phone: [facility] 01-17-2024 19:09-0400 Diastolic blood pressure 88 mm[Hg] Denny Lomeli [employer] Work Phone: [facility] 01-17-2024 19:09-0400 Heart rate 106 /min Denny Lomeli [employer] Work Phone: [facility] 01-17-2024 19:09-0400 SaO2% (BldA) [Mass fraction] 97 % Denny Lomeli [employer] Work Phone: [facility] 01-17-2024 19:09-0400 Systolic blood pressure 134 mm[Hg] Denny Lomeli [employer] Work Phone: [facility] 06-14-2023 15:00-0400 Diastolic blood pressure 69 mm[Hg] Denny Lomeli [employer] Work Phone: [facility] 06-14-2023 15:00-0400 Systolic blood pressure 116 mm[Hg] Denny Lomeli [employer] Work Phone: [facility] 05-31-2023 15:52-0400 Diastolic blood pressure 78 mm[Hg] Denny Lomeli [employer] Work Phone: [facility] Work Phone: 05-31-2023 15:52-0400 Systolic blood pressure 137 mm[Hg] Denny Lomeli [employer] Work Phone: [facility] Work Phone: 05-10-2023 17:08-0400 Body height 162.56 cm Denny Lomeli [employer] Work Phone: [facility] Work Phone: 07-19-2023 17:08-0400 Body mass index (BMI) [Ratio] 32.8 kg/m2 Denny Lomeli CNP Work Phone: [facility] Work Phone: 05-10-2023 17:08-0400 Body surface area Derived from formula 1.9 m2 Denny Lomeli CNP Work Phone: [facility] Work Phone: 05-10-2023 17:08-0400 Body temperature 98.2 [degF] Denny Lomeli CNP Work Phone: [facility] Work Phone: 05-10-2023 17:08-0400 Body weight 86.64 kg Denny Lomeli CNP Work Phone: [facility] Work Phone: 05-10-2023 17:08-0400 Diastolic blood pressure 76 mm[Hg] Denny Lomeli CNP Work Phone: [facility] Work Phone: 05-10-2023 17:08-0400 Heart rate 97 /min Denny Lomeli CNP Work Phone: [facility] Work Phone: 05-10-2023 17:08-0400 SaO2% (BldA) [Mass fraction] 97 % Denny Lomeli CNP Work Phone: [facility] Work Phone: 05-10-2023 17:08-0400 Systolic blood pressure 111 mm[Hg] Denny Lomeli CNP Work Phone: [facility] Work Phone: 05-01-2023 14:03-0400 Diastolic blood pressure 76 mm[Hg] Denny Lomeli [employer] Work Phone: [facility] 05-01-2023 14:03-0400 Heart rate 94 /min Denny Lomeli CNP Work Phone: [facility] 05-01-2023 14:03-0400 Systolic blood pressure 124 mm[Hg] Denny Lomeli CNP Work Phone: [facility] 08-12-2022 13:36-0400 Body height 162.56 cm Denny Lomeli CNP Work Phone: [facility] Work Phone: 08-12-2022 13:36-0400 Body mass index (BMI) [Ratio] 52.5 kg/m2 Denny Lomeli CNP Work Phone: [facility] Work Phone: 08-12-2022 13:36-0400 Body surface area Derived from formula 2.3 m2 Denny Lomeli CNP Work Phone: [facility] Work Phone: 08-12-2022 13:36-0400 Body temperature 99.3 [degF] Denny Lomeli CNP Work Phone: [facility] Work Phone: 08-12-2022 13:36-0400 Body weight 138.8 kg Denny Lomeli CNP Work Phone: [facility] Work Phone: 08-12-2022 13:36-0400 Diastolic blood pressure 86 mm[Hg] Denny Lomeli CNP Work Phone: [facility] Work Phone: 08-12-2022 13:36-0400 Heart rate 96 /min Denny Lomeli CNP Work Phone: [facility] Work Phone: 08-12-2022 13:36-0400 Heart Rate Rhythm 1 1 Denny Lomeli CNP Work Phone: [facility] Work Phone: 08-12-2022 13:36-0400 SaO2% (BldA) [Mass fraction] 97 % Denny Lomeli CNP Work Phone: [facility] Work Phone: 08-12-2022 13:36-0400 Systolic blood pressure 124 mm[Hg] Denny Lomeli CNP Work Phone: [facility] Work Phone: 06-15-2022 15:17-0400 Body height 162.56 cm Denny Lomeli CNP Work Phone: [facility] Work Phone: 06-15-2022 15:17-0400 Body mass index (BMI) [Ratio] 53.6 kg/m2 Denny Lomeli CNP Work Phone: [facility] Work Phone: 06-15-2022 15:17-0400 Body surface area Derived from formula 2.36 m2 Denny Lomeli CNP Work Phone: [facility] Work Phone: 06-15-2022 15:17-0400 Body surface area Derived from formula 2.4 m2 Denny Lomeli CNP Work Phone: [facility] Work Phone: 06-15-2022 15:17-0400 Body temperature 97.4 [degF] Denny Lomeli CNP Work Phone: [facility] Work Phone: 06-15-2022 15:17-0400 Body weight 141.52 kg Denny Lomeli CNP Work Phone: [facility] Work Phone: 06-15-2022 15:17-0400 Diastolic blood pressure 82 mm[Hg] Denny Lomeli CNP Work Phone: [facility] Work Phone: 06-15-2022 15:17-0400 Heart rate 86 /min Denny Lomeli CNP Work Phone: [facility] Work Phone: 06-15-2022 15:17-0400 SaO2% (BldA) [Mass fraction] 98 % Denny Lomeli CNP Work Phone: [facility] Work Phone: 06-15-2022 15:17-0400 Systolic blood pressure 124 mm[Hg] Denny Lomeli CNP Work Phone: [facility] Work Phone: 06-08-2022 15:06-0400 Body height 162.56 cm Denny Lomeli CNP Work Phone: [facility] Work Phone: 06-08-2022 15:06-0400 Body mass index (BMI) [Ratio] 52.2 kg/m2 Denny Lomeli CNP Work Phone: [facility] Work Phone: 06-08-2022 15:06-0400 Body surface area Derived from formula 2.34 m2 Denny Lomeli CNP Work Phone: [facility] Work Phone: 06-08-2022 15:06-0400 Body surface area Derived from formula 2.3 m2 Denny Lomeli CNP Work Phone: [facility] Work Phone: 06-08-2022 15:06-0400 Body temperature 99.3 [degF] Denny Lomeli CNP Work Phone: [facility] Work Phone: 06-08-2022 15:06-0400 Body weight 137.89 kg Denny Lomeli CNP Work Phone: [facility] Work Phone: 06-08-2022 15:06-0400 Diastolic blood pressure 94 mm[Hg] Denny Lomeli CNP Work Phone: [facility] Work Phone: 06-08-2022 15:06-0400 Heart rate 105 /min Denny Lomeli CNP Work Phone: [facility] Work Phone: 06-08-2022 15:06-0400 Heart Rate Rhythm 1 1 Denny Lomeli CNP Work Phone: [facility] Work Phone: 06-08-2022 15:06-0400 SaO2% (BldA) [Mass fraction] 98 % Denny Lomeli CNP Work Phone: [facility] Work Phone: 06-08-2022 15:06-0400 Systolic blood pressure 126 mm[Hg] Denny Lomeli CNP Work Phone: [facility] Work Phone: 05-27-2022 16:34-0400 Diastolic blood pressure 102 mm[Hg] Denny Lomeli CNP Work Phone: [facility] Work Phone: 05-27-2022 16:34-0400 Systolic blood pressure 150 mm[Hg] Denny Lomeli CNP Work Phone: [facility] Work Phone: 05-27-2022 15:08-0400 Body height 162.56 cm Denny Lomeli CNP Work Phone: [facility] Work Phone: 05-27-2022 15:08-0400 Body mass index (BMI) [Ratio] 52.6 kg/m2 Denny Lomeli CNP Work Phone: [facility] Work Phone: 05-27-2022 15:08-0400 Body surface area Derived from formula 2.34 m2 Denny Lomeli CNP Work Phone: [facility] Work Phone: 05-27-2022 15:08-0400 Body surface area Derived from formula 2.3 m2 Denny Lomeli CNP Work Phone: [facility] Work Phone: 05-27-2022 15:08-0400 Body temperature 98.5 [degF] Denny Lomeli CNP Work Phone: [facility] Work Phone: 05-27-2022 15:08-0400 Body weight 138.98 kg Denny Lomeli CNP Work Phone: [facility] Work Phone: 05-27-2022 15:08-0400 Diastolic blood pressure 108 mm[Hg] Denny Lomeli CNP Work Phone: [facility] Work Phone: 05-27-2022 15:08-0400 Heart rate 89 /min Denny Lomeli CNP Work Phone: [facility] Work Phone: 05-27-2022 15:08-0400 SaO2% (BldA) [Mass fraction] 99 % Denny Lomeli CNP Work Phone: [facility] Work Phone: 05-27-2022 15:08-0400 Systolic blood pressure 152 mm[Hg] Denny Lomeli CNP Work Phone: [facility] Work Phone: 07-15-2021 13:50-0400 Body height 162.56 cm Denny Lomeli CNP Work Phone: [facility] Work Phone: 07-15-2021 13:50-0400 Body mass index (BMI) [Ratio] 50.1 kg/m2 Denny Lomeli CNP Work Phone: [facility] Work Phone: 07-15-2021 13:50-0400 Body surface area Derived from formula 2.3 m2 Denny Lomeli CNP Work Phone: [facility] Work Phone: 07-15-2021 13:50-0400 Body temperature 96.8 [degF] Denny Lomeli CNP Work Phone: [facility] Work Phone: 07-15-2021 13:50-0400 Body weight 132.45 kg Denny Lomeli CNP Work Phone: [facility] Work Phone: 07-15-2021 13:50-0400 Diastolic blood pressure 86 mm[Hg] Denny Lomeli CNP Work Phone: [facility] Work Phone: 07-15-2021 13:50-0400 Heart rate 86 /min Denny Lomeli CNP Work Phone: [facility] Work Phone: 07-15-2021 13:50-0400 Respiratory rate 18 /min Denny Lomeli CNP Work Phone: [facility] Work Phone: 07-15-2021 13:50-0400 SaO2% (BldA) [Mass fraction] 96 % Denny Lomeli CNP Work Phone: [facility] Work Phone: 07-15-2021 13:50-0400 Systolic blood pressure 132 mm[Hg] Denny Lomeli CNP Work Phone: [facility] [facility] Work Phone: 07-06-2021 23:34-0400 Heart rate 100 /min Kalyan Irizarry MD Work Phone: [facility] Work Phone: 07-06-2021 23:30-0400 Diastolic blood pressure 94 mm[Hg] Kalyan Irizarry MD Work Phone: [facility] Work Phone: 07-06-2021 23:30-0400 Systolic blood pressure 146 mm[Hg] Kalyan Irizarry MD Work Phone: [facility] Work Phone: 07-06-2021 22:37-0400 SaO2% (BldA) [Mass fraction] 97 % Kalyan Irizarry MD Work Phone: [facility] Work Phone: 07-06-2021 14:51-0400 Body mass index (BMI) [Ratio] 47.72 kg/m2 Kalyan Irizarry MD Work Phone: [facility] Work Phone: 07-06-2021 14:51-0400 Body temperature 98.2 [degF] Kalyan Irizarry MD Work Phone: [facility] Work Phone: 07-06-2021 14:51-0400 Body weight 126.1 kg Kalyan Irizarry MD Work Phone: [facility] Work Phone: 07-06-2021 14:51-0400 Respiratory rate 16 /min Kalyan Irizarry MD Work Phone: [facility] Work Phone: 06-17-2021 16:38-0400 Body height 162.56 cm Denny Lomeli CNP Work Phone: [facility] Work Phone: 06-17-2021 16:38-0400 Body mass index (BMI) [Ratio] 49.3 kg/m2 Denny Lomeli CNP Work Phone: [facility] Work Phone: 06-17-2021 16:38-0400 Body surface area Derived from formula 2.28 m2 Denny Lomeli CNP Work Phone: [facility] Work Phone: 06-17-2021 16:38-0400 Body temperature 97.4 [degF] Denny Lomeli CNP Work Phone: [facility] Work Phone: 06-17-2021 16:38-0400 Body weight 130.18 kg Denny Lomeli CNP Work Phone: [facility] Work Phone: 06-17-2021 16:38-0400 Diastolic blood pressure 98 mm[Hg] Denny Lomeli CNP Work Phone: [facility] Work Phone: 06-17-2021 16:38-0400 Heart rate 85 /min Denny Lomeli CNP Work Phone: [facility] Work Phone: 06-17-2021 16:38-0400 Respiratory rate 18 /min Denny Lomeli CNP Work Phone: [facility] Work Phone: 06-17-2021 16:38-0400 SaO2% (BldA) [Mass fraction] 97 % Denny Lomeli CNP Work Phone: [facility] Work Phone: 06-17-2021 16:38-0400 Systolic blood pressure 144 mm[Hg] Denny Landonkacie CHAVEZ Work Phone: [facility] [employer] [facility] Work Phone: 05-16-2021 02:36-0400 Diastolic blood pressure 93 mm[Hg] Blanco Montalvo MD Work Phone: [facility] Work Phone: 05-16-2021 02:36-0400 Heart rate 75 /min Blanco Montalvo MD Work Phone: [facility] Work Phone: 05-16-2021 02:36-0400 Respiratory rate 20 /min Blanco Montalvo MD Work Phone: [facility] Work Phone: 05-16-2021 02:36-0400 SaO2% (BldA) [Mass fraction] 100 % Blanco Montalvo MD Work Phone: [facility] Work Phone: 05-16-2021 02:36-0400 Systolic blood pressure 150 mm[Hg] Blanco Montalvo MD Work Phone: [facility] Work Phone: 05-15-2021 20:15-0400 Body temperature 99.1 [degF] Blanco Montalvo MD Work Phone: [facility] Work Phone: 04-23-2021 11:33-0400 Body height 162.56 cm Dennyartem Lomeli CNP Work Phone: [facility] Work Phone: 04-23-2021 11:33-0400 Body mass index (BMI) [Ratio] 48.9 kg/m2 Dennyartem Lomeli CNP Work Phone: [facility] Work Phone: 04-23-2021 11:33-0400 Body surface area Derived from formula 2.27 m2 Denny Lomeli CNP Work Phone: [facility] Work Phone: 04-23-2021 11:33-0400 Body temperature 98.2 [degF] Denny Lomeli CNP Work Phone: [facility] Work Phone: 04-23-2021 11:33-0400 Body weight 129.28 kg Denny Lomeli CNP Work Phone: [facility] Work Phone: 04-23-2021 11:33-0400 Diastolic blood pressure 86 mm[Hg] Denny Lomeli CNP Work Phone: [facility] Work Phone: 04-23-2021 11:33-0400 Heart rate 101 /min Denny Lomeli CNP Work Phone: [facility] Work Phone: 04-23-2021 11:33-0400 SaO2% (BldA) [Mass fraction] 98 % Denny Lomeli CNP Work Phone: [facility] Work Phone: 04-23-2021 11:33-0400 Systolic blood pressure 124 mm[Hg] Denny Lomeli CNP Work Phone: [facility] Work Phone: 04-09-2021 16:30-0400 Body height 162.6 cm [employer] Work Phone: [facility] Work Phone: 04-09-2021 16:30-0400 Body mass index (BMI) [Ratio] 47.2 kg/m2 [employer] Work Phone: [facility] Work Phone: 04-09-2021 16:30-0400 Body temperature 98.8 [degF] Jm Andes DO Work Phone: [facility] Work Phone: 04-09-2021 16:30-0400 Body weight 124.74 kg Jm Andes DO Work Phone: [facility] Work Phone: 04-09-2021 16:30-0400 Diastolic blood pressure 88 mm[Hg] Jm Andes DO Work Phone: [facility] Work Phone: 04-09-2021 16:30-0400 Heart rate 78 /min Jm Andes DO Work Phone: [facility] Work Phone: 04-09-2021 16:30-0400 Respiratory rate 18 /min Jm Andes DO Work Phone: [facility] Work Phone: 04-09-2021 16:30-0400 SaO2% (BldA) [Mass fraction] 96 % Jm Andes DO Work Phone: [facility] Work Phone: 04-09-2021 16:30-0400 Systolic blood pressure 138 mm[Hg] Jm Andes DO Work Phone: [facility] Work Phone: 04-01-2021 15:53-0400 Body height 162.56 cm Denny Lomeli [employer] Work Phone: [employer] [facility] Work Phone: 04-01-2021 15:53-0400 Body mass index (BMI) [Ratio] 49.5 kg/m2 Denny Lomeli [employer] Work Phone: [employer] [facility] Work Phone: 04-01-2021 15:53-0400 Body surface area Derived from formula 2.29 m2 Denny Lomeli CNP Work Phone: [facility] Work Phone: 04-01-2021 15:53-0400 Body temperature 97.6 [degF] Denny Lomeli CNP Work Phone: [facility] Work Phone: 04-01-2021 15:53-0400 Body weight 130.82 kg Denny Lomeli [employer] Work Phone: [facility] Work Phone: 04-01-2021 15:53-0400 Diastolic blood pressure 88 mm[Hg] Denny Lomeli [employer] Work Phone: [facility] Work Phone: 04-01-2021 15:53-0400 Heart rate 83 /min Denny Lomeli CNP Work Phone: [facility] Work Phone: 04-01-2021 15:53-0400 Respiratory rate 20 /min Denny Lomeli CNP Work Phone: [facility] Work Phone: 04-01-2021 15:53-0400 SaO2% (BldA) [Mass fraction] 98 % Denny Lomeli CNP Work Phone: [facility] Work Phone: 04-01-2021 15:53-0400 Systolic blood pressure 130 mm[Hg] Denny Lomeli [employer] Work Phone: [facility] Work Phone: 03-17-2021 15:36-0400 Diastolic blood pressure 108 mm[Hg] Denny Lomeli [employer] Work Phone: [facility] Work Phone: 03-17-2021 15:36-0400 Systolic blood pressure 134 mm[Hg] Denny Lomeli CNP Work Phone: [facility] Work Phone: 03-17-2021 14:05-0400 Body height 162.56 cm Denny Lomeli CNP Work Phone: [facility] Work Phone: 03-17-2021 14:05-0400 Body mass index (BMI) [Ratio] 49.8 kg/m2 Denny Lomeli CNP Work Phone: [facility] Work Phone: 03-17-2021 14:05-0400 Body surface area Derived from formula 2.29 m2 Denny Lomeli CNP Work Phone: [facility] Work Phone: 03-17-2021 14:05-0400 Body temperature 96.4 [degF] Denny Lomeli CNP Work Phone: [facility] Work Phone: 03-17-2021 14:05-0400 Body weight 131.54 kg Denny Lomeli CNP Work Phone: [facility] Work Phone: 03-17-2021 14:05-0400 Diastolic blood pressure 108 mm[Hg] Denny Lomeli CNP Work Phone: [facility] Work Phone: 03-17-2021 14:05-0400 Heart rate 97 /min Denny Lomeli CNP Work Phone: [facility] Work Phone: 03-17-2021 14:05-0400 Respiratory rate 18 /min Denny Lomeli CNP Work Phone: [facility] Work Phone: 03-17-2021 14:05-0400 SaO2% (BldA) [Mass fraction] 98 % Denny Lomeli CNP Work Phone: [facility] Work Phone: 03-17-2021 14:05-0400 Systolic blood pressure 150 mm[Hg] Denny Lomeli CNP Work Phone: [facility] Work Phone: Encounters Encounter Date Encounter Type Care Provider Facility Start: 07-18-2024 End: 07-18-2024 [facility] visit, estab pt Sarai Alberts [employer] Work Phone: [facility] Work Phone: Start: 06-13-2024 End: 06-13-2024 [facility] visit, estab pt Kinga Short LISWS Work Phone: [facility] Work Phone: Start: 06-13-2024 End: 06-13-2024 Encounter for preprocedural laboratory examination Denny Lomeli CNP Work Phone: [facility] Work Phone: Start: 06-13-2024 End: 06-13-2024 [facility] visit, estab pt Denny Lomeli [employer] Work Phone: [facility] Work Phone: Start: 04-10-2024 End: 04-10-2024 [facility] visit, estab pt Kinga Short LISWS Work Phone: [facility] Work Phone: Start: 04-10-2024 End: 04-10-2024 [facility] visit, estab pt Kinga Short LISWS Work Phone: [facility] Work Phone: Start: 02-28-2024 End: 02-29-2024 Emergency department patient visit MABLE RO [facility] Start: 01-17-2024 End: 01-17-2024 [facility] visit, estab pt Kinga RUDOLPH Work Phone: [facility] Work Phone: Start: 01-17-2024 End: 01-17-2024 General Denny Lomeli CNP Work Phone: [facility] Work Phone: Start: 06-14-2023 End: 06-14-2023 General [place] Mao DDS Work Phone: [facility] Work Phone: Start: 05-31-2023 End: 05-31-2023 General [place] Mao DDS Work Phone: [facility] Work Phone: Start: 05-10-2023 End: 05-10-2023 [facility] visit, estab pt Denny Lomeli CNP Work Phone: [facility] Work Phone: Start: 05-01-2023 comprehensive oral evaluation - new or established patient [place] Mao DDS Work Phone: [facility] Start: 05-01-2023 End: 05-01-[address] Work Phone: [facility] Work Phone: Start: 08-13-2022 End: 08-13-2022 ambulatory DENNY LOMELI [facility] Start: 08-12-2022 End: 08-12-2022 Subsequent hospital visit by physician Denny Lomeli APRN - [employer] Work Phone: [facility] Start: 08-12-2022 End: 08-12-2022 [facility] visit, estab pt Denny Lomeli CNP Work Phone: [facility] Work Phone: Start: 06-16-2022 End: 06-16-2022 General Belkis Velarde LPCC-S Work Phone: [facility] Work Phone: Start: 06-15-2022 End: 06-15-2022 ambulatory Leah Amaya [employer] Work Phone: [facility] Work Phone: Start: 06-15-2022 End: 06-15-2022 General Leah Monique [employer] Work Phone: [facility] Work Phone: Start: 06-08-2022 End: 06-08-2022 [facility] visit, estab pt Belkis Velarde LPCC-S Work Phone: [facility] Work Phone: Start: 05-27-2022 End: 05-27-2022 [facility] visit, estab pt Belkis Velarde LPCC-S Work Phone: [facility] Work Phone: Start: 05-27-2022 End: 05-27-2022 ambulatory Leah Porraser [employer] Work Phone: [facility] Work Phone: Start: 05-27-2022 End: 07-15-2021 General Leah Monique [employer] Work Phone: [facility] Work Phone: Start: 07-26-2021 End: 07-27-2021 ambulatory DENNY [facility]OMEL[facility] Start: 07-26-2021 End: 07-26-2021 Subsequent hospital visit by physician [facility] [employer] [facility] EKG Comment on above: Tachycardia Start: 07-15-2021 End: 07-15-2021 [facility] visit, estab pt Eufemia Mcneil LPCC-S Work Phone: [facility] Work Phone: Start: 07-15-2021 End: 07-15-2021 [facility] visit, estab pt Eufemia Mcneil [facility] Work Phone: [facility] Work Phone: Start: 07-07-2021 End: 07-10-2021 [facility] Start: 07-06-2021 End: 07-07-2021 Emergency department patient visit ROMEO CRUZ [facility] Start: 07-06-2021 End: 07-06-2021 Emergency department patient visit Kalyan Irizarry MD Work Phone: [facility] ED Comment on above: Bipolar 1 disorder ( HCC) (Primary Dx); Homicidal ideation Start: 06-17-2021 End: 06-17-2021 [facility]QHC visit, estab pt Kinga RUDOLPH Work Phone: [facility] Work Phone: Start: 05-15-2021 End: 05-16-2021 Emergency department patient visit BLANCO [facility] Start: 05-15-2021 End: 05-16-2021 Emergency department patient visit Blanco Montalvo MD Work Phone: [facility] ED Comment on above: Anxiety state (Prima ry Dx) Start: 04-23-2021 End: 04-23-2021 ambulatory Teagan Gale CNP Work Phone: [facility] Work Phone: Start: 04-23-2021 End: 04-23-2021 General Teagan Gale CNP Work Phone: [facility] Work Phone: Start: 04-23-2021 End: 04-23-2021 [facility] visit, estab pt Kinga RUDOLPH Work Phone: [facility] Work Phone: Start: 04-23-2021 End: 04-23-2021 [facility]QHC visit, estab pt Kinga Short LISWS Work Phone: [facility] Work Phone: Start: 04-09-2021 End: 04-10-2021 Emergency department patient visit JM HUSSEIN [facility] Start: 04-09-2021 End: 04-10-2021 Emergency department patient visit Jm Hussein DO Work Phone: [facility] ED Comment on above: Depression with suic idal ideation (Primary Dx) Start: 04-01-2021 End: 04-01-2021 [facility]QHC visit, estab pt Kinga Short LISWS Work Phone: [facility] Work Phone: Start: 04-01-2021 End: 04-01-2021 [facility]QHC visit, estab pt Kinga Short LISWS Work Phone: [facility] Work Phone: Start: 03-17-2021 End: 03-17-2021 [facility]HC visit, estab pt Kinga Short LISWS Work Phone: [facility] Work Phone: Start: 03-17-2021 End: 03-17-2021 [facility] visit new patient Denny Lomeli CNP Work Phone: [facility] Work Phone: Start: 06-06-2020 End: 06-06-2020 Patient encounter procedure ADDIS Dickey SUNIL Facility: Start: 06-12-2017 End: 06-12-2017 Emergency department patient visit MD RIZWAN LÓPEZ Facility:[facility] Procedures Date Procedure Procedure Detail Performing Clinician Start: 07-18-2024 Application of silve r diamine fluoride by physician Denny Lomeli CNP Work Phone: Start: 07-18-2024 Behav assmt w/score & docd/stand instrument Sarai Alberts [employer]ROLOG[employer] TECHNICIAN Work Phone: Start: 07-18-2024 Eye img vld [...] Psychotherapy w/blaze ent 30 minutes Kinga Short [employer] Work Phone: Start: 04-10-2024 Behav assmt w/score & docd/stand instrument Kinga Short LIS[employer] Work Phone: Start: 04-10-2024 Current tobacco non- user cad cap copd pv dm Denny Lomeli CNP Work Phone: Start: 04-10-2024 Most recent diastoli c blood pressure 80-89 mm hg Denny Lomeli CNP Work Phone: Start: 04-10-2024 Most recent systolic blood press 130-139mm hg Denny Lomeli CNP Work Phone: Start: 04-10-2024 Pt scrnd [...] 05-10-2023 Hemoglobin glycosyla stephanie a1c Denny Armani [employer] Work Phone: Start: 05-10-2023 Most recent diastoli c blood pressure < 80 mm hg Denny Lomeli [employer] Work Phone: Start: 05-10-2023 Most recent hemoglob in a1c level < 7.0% Denny Lomeli [employer] Work Phone: Start: 05-10-2023 Most recent systolic blood pressure <130 mm hg Denny Lomeli [employer] Work Phone: Start: 05-01-2023 caries risk assessme [...] blood pressure 80-89 mm hg Denny Lomeli [employer] Work Phone: Start: 08-12-2022 Most recent systolic blood pressure <130 mm hg Denny Lomeli [employer] Work Phone: Start: 06-16-2022 Psychotherapy w/blaze ent 30 minutes Belkis Velarde LPCC-S Work Phone: Start: 06-15-2022 Most recent diastoli c blood pressure 80-89 mm hg Leah Monique [employer] Work Phone: Start: 06-15-2022 Most recent systolic blood pressure <130 mm hg Leah Monique [employer] Work Phone: Start: 06-15-2022 Psychotherapy w/blaze ent 30 minutes Belkis Velarde LPCC-S Work Phone: Start: 06-08-2022 Most recent diastol blood pres >/equal 90 mm hg Denny Lomeli [employer] Work Phone: Start: 06-08-2022 Most recent systolic blood pressure <130 mm hg Denny Lomeli [facility] Work Phone: Start: 06-08-2022 Psychotherapy w/blaze ent 30 minutes Belkis Velarde [facility] Work Phone: Start: 05-27-2022 Hemoglobin glycosyla stephanie a1c Leah Amaya [facility] Work Phone: Start: 05-27-2022 Most recent diastol blood pres >/equal 90 mm hg Leah Porraser [facility] Work Phone: Start: 05-27-2022 Most recent hemoglob in a1c level < 7.0% Leah Porraser [facility] Work Phone: Start: 05-27-2022 Most recent systolic blood pres>/equal 140 mm hg Leah Amaya [facility] Work Phone: Start: 05-27-2022 Psychotherapy w/blaze ent 30 minutes Belkis Velarde [facility] Work Phone: Start: 07-15-2021 Antibody hiv-1&hiv-2 single result Denny Lomeli [facility] Work Phone: Start: 07-15-2021 Most recent diastoli c blood pressure 80-89 mm hg Denny Lomeli [facility] Work Phone: Start: 07-15-2021 Most recent systolic blood press 130-139mm hg Denny Lomeli [facility] Work Phone: Start: 07-15-2021 Psychotherapy w/blaze ent 30 minutes Eufemia Mcneil [facility] Work Phone: Start: 07-15-2021 Pt scrnd tobacco use rcvd tobacco cessation talk Denny Lomeli [facility] Work Phone: Start: 07-06-2021 COVID-19, RAPID Kalyan [...] pressure < 80 mm hg Dennyartem Lomeli [facility] Work Phone: Start: 06-17-2021 Most recent systolic blood pressure <130 mm [facility] Work Phone: Start: 06-17-2021 Psychotherapy w/blaze ent [...] diastoli c blood pressure 80-89 mm hg [facility] [employer] Work Phone: Start: 04-23-2021 Most recent systolic blood pressure <130 mm hg [facility] [employer] Work Phone: Start: 04-23-2021 Psychotherapy w/blaze ent [...] diastoli c blood pressure 80-89 mm hg [facility] Work Phone: Start: 04-01-2021 Most recent systolic blood pressure <130 mm hg Denny Lomeli [employer] Work Phone: Start: 04-01-2021 Psychotherapy w/blaze ent 30 minutes Kinga Bourgeois [employer] Work Phone: Start: 03-17-2021 Ear Pressure Equaliz ation Tube, Insertion, Bilaterally Denny Lomeli [employer] Work Phone: Start: 03-17-2021 Most recent diastol blood pres >/equal 90 mm hg Denny Lomeli [employer] Work Phone: Start: 03-17-2021 Most recent systolic blood pres>/equal 140 mm hg Denny Lomeli [employer] Work Phone: Start: 03-17-2021 Pt-focused hlth risk assmt score doc stnd instrm Denny Lomeli [employer] Work Phone: Start: 03-17-2021 Tonsillectomy Dennyartem alexandra [employer] Work Phone: Plan of Treatment Date Care Activity Detail Author Start: 08-15-2024 FQHC visit, estab pt Medical E stablished Patient [facility] Work Phone: Start: 08-03-2024 CBC W Auto Different ial panel - Blood [facility] Start: 07-18-2024 FQHC visit, estab pt Medical E stablished Patient [facility] Work Phone: Start: 07-18-2024 End: 07-18-2024 Patient education based on identified need [facility] Start: 07-13-2024 US Transvaginal (19510) [facility] Start: 06-13-2024 End: 06-13-2024 Patient education based on identified need [facility] Start: 06-13-2024 FQHC visit, estab pt Medical E stablished Patient [facility] Work Phone: Start: 06-13-2024 End: 06-13-2024 Patient education based on identified need [facility] Start: 04-15-2024 Ferritin [Mass/volum e] in Serum or Plasma [facility] Start: 04-10-2024 End: 04-10-2024 Patient education based on identified need [facility] Start: 03-21-2024 FQHC visit, estab pt Medical E stablished Patient [facility] Work Phone: Start: 02-16-[address] Pvaftjity-[id number] [facility] Start: 01-17-2024 End: 01-17-2024 Patient education based on identified need [facility] Start: 05-10-2023 End: 05-10-2023 Patient education based on identified need [facility] Start: 05-10-2023 Psychiatry [facility] Work Phone: Comment on above: Note: Please make a referral to: see if dr carney accepting now, otherwise ok with rd or ana Start: 12-13-2022 FQHC visit, estab pt Medical E stablished Patient [facility] Work Phone: Start: 08-12-2022 End: 08-12-2022 Patient education based on identified need [facility] Start: 07-08-[address] [id number] [facility] Start: 07-07-2022 FQHC visit, estab pt Medical E stablished Patient [facility] Work Phone: Start: 06-16-2022 End: 06-16-2022 Patient education based on identified need [facility] offered active listening and supportive feedback; normalized emotions and feelings, also provided pt time to process any current stressors. ~Promoted and encouraged follow-through with scheduling psychiatric services [facility] Start: 06-15-2022 End: 06-15-2022 Patient education based on identified need [facility] Start: 06-13-2022 Health [facility] Start: 06-08-2022 FQHC visit, estab pt Ti [facility] Work Phone: Comment on above: Note: Please make a referral to: request dr canrey Start: 06-08-2022 End: 06-08-2022 Patient education based on identified need [facility] Start: 05-27-2022 End: 05-27-2022 Patient education based on identified need [facility] ~BHP offered active listening and supportive feedback; normalized emotions and feelings, also provided pt time to process any current stressors ~BHP discussed potential benefits of counseling and supported re-engaging, as needed. ~BHP encouraged pt to continue to make time to implement self-care regimen and use coping methods, as needed [facility] Start: 05-27-2022 CBC W Auto Different ial panel - Blood [facility] Start: 05-27-2022 Lipid 1996 panel - S mica or Plasma LIPID PROFILE [facility] Start: 05-27-2022 End: 05-27-2022 Patient education based on identified need [facility] Start: 05-23-2022 Influenza vaccination Flu vaccine (# 1) [facility] Start: 08-24-2021 COVID-19 Vaccine (3 - Booster for Pfizer series) COVID-19 Vaccine (3 - Booster for Pfizer series) [facility] Start: 08-14-2021 [facility] Start: 07-19-2021 FQHC visit, estab pt Medical E stablished Patient [facility] Work Phone: Start: 07-15-2021 [facility] Work Phone: Comment on above: Note: Please make a referral to: [address] [address]YY: [phone]: [phone] Note: Please make a referral to: [facility] , no longer wants to see derrell Start: 07-15-2021 End: 07-15-2021 Patient education based on identified need [facility] Start: 06-23-2021 Influenza vaccination [facility] Work Phone: Start: 06-17-2021 End: 06-17-2021 Patient education based on identified need [facility] Start: 04-30-2021 SARS-CoV-2, MORENA [facility] Start: 04-23-2021 End: 04-23-2021 Patient education based on identified need [facility] Start: 04-01-2021 End: 04-01-2021 Patient education based on identified need [facility] Start: 03-17-2021 End: 03-17-2021 Patient education based on identified need [facility] Start: 06-24-2020 DTaP/Tdap/Td vaccine (7 - Td or Tdap) DTaP/Tdap/Td vaccine (7 - Td or Tdap) [facility] Start: 2020 Screening for malign ant neoplasm of cervix [facility] [facility] [employer] Start: 2018 DTaP/Tdap/Td vaccine (1 - Tdap) DTaP/Tdap/Td vaccine (1 - Tdap) [facility] Work Phone: Start: 2017 Hepatitis C screening Hepatitis C sc reen [facility] [employer] Start: 2015 Screening for Chlamy solitario trachomatis [facility] [employer] Start: 2014 HIV screening HIV screen [facility] Work Phone: Start: 2011 COVID-19 Vaccine (1) COVID-19 Vaccin e (1) [facility] Work Phone: Start: 2011 [facility]: 2010 HPV vaccine (1 - 2-d ose series) HPV vaccine (1 - 2-dose series) [facility] [employer] Start: 2000 Varicella vaccine (1 of 2 - 2-dose childhood series) Varicella vaccine (1 of 2 - 2-dose childhood series) [facility] Start: 1999 Hepatitis C screening Hepatitis C sc reen [facility] Work Phone: End: 08-12-2022 C.trachomatis N.gonorrhoeae DNA, Urine [facility] [employer] Phone: Comment on above: Once for 1 Occurrenc es starting 08/12/2022 until 08/12/2022 EKG 12 Lead EKG 12 Lead ECG STAT 07/06/2021 3:18 PM EDT [facility] Work Phone: End: 08-12-2022 Trichomonas Vaginali, Molecular [facility] Work Phone: Comment on above: Once for 1 Occurrenc es starting 08/12/2022 until 08/12/2022 Immunizations Immunization Date Immunization Notes Care Provider Jennifer alejo 07-18-2024 influenza, injectabl e, quadrivalent, preservative free; Translations: [Fluarix] Denny Lomeli [employer] Work Phone: [facility] Comment on above: Note: Patient tolera stephanie well. No signs or symptoms of adverse reactions. Patient waited a minimum of 15 minutes. 07-18-2024 Imm.Admin. over 18 y rs Any Route FIRST Injection (Rendering physician modifier) Denny Lomeli [employer] Work Phone: [facility] 06-13-2024 Human Papillomavirus 9-valent vaccine; Translations: [GARDASIL 9] Denny Lomeli [facility] Work Phone: [facility] 06-13-2024 pneumococcal vaccine , unspecified formulation Denny Lomeli [facility] Work Phone: [facility] Comment on above: Note: Patient tolera stephanie well. No signs or symptoms of adverse reactions. Patient waited a minimum of 15 minutes. 06-13-2024 Imm.Admin.Through 17 yrs Any Route FIRST Injection Denny Lomeli CNP Work Phone: [facility] 06-13-2024 Ea.Addnl.Imm.Admin.T hroug h 17 yrs Any Route Denny Lomeli CNP Work Phone: [facility] 06-13-2024 VFC Imm. Admin. thro ugh 17 yrs Any Route per C Injection (Signi/Sep Eval. & Man.) Denny Lomeli CNP Work Phone: [facility] 08-12-2022 influenza, injectabl e, quadrivalent, preservative free; Translations: [Fluarix] Denny Lomeli CNP Work Phone: [facility] Comment on above: Note: Patient tolera stephanie well. No signs or symptoms of adverse reactions. Patient waited a minimum of 15 minutes. 08-12-2022 Imm.Admin. over 18 y rs Any Route FIRST Injection Denny Lomeli [facility] Work Phone: [facility] 06-29-2021 1st Dose PFIZER COVI D-19 Vaccine Denny Lomeli [facility] Work Phone: [facility] 06-08-2021 1st Dose PFIZER COVI D-19 Vaccine Denny Lomeli [facility] Work Phone: [facility] 06-29-2016 meningococcal oligosaccharide (groups A, C, Y and W-135) diphtheria toxoid conjugate vaccine (MCV4O) Denny Lomeli [facility] Work Phone: [facility] 06-24-2010 tetanus toxoid, redu messi diphtheria toxoid, and acellular pertussis vaccine, adsorbed Denny Lomeli [facility] Work Phone: [facility] 06-18-2004 measles, mumps and rubella virus vaccine Denny Lomeli [facility] Work Phone: [facility] 06-18-2004 poliovirus vaccine, inactivated Denny Lomeli [facility] Work Phone: [facility] 03-13-2000 measles, mumps and rubella virus vaccine Denny Lomeli [facility] Work Phone: [facility] 03-13-2000 poliovirus vaccine, inactivated Denny Lomeli [facility] Work Phone: [facility] 1999 haemophilus influenz ae type b conjugate and Hepatitis B vaccine Denny Lomeli [facility] Work Phone: [facility] 1999 poliovirus vaccine, inactivated Denny Lomeli [facility] Work Phone: [facility] 1999 diphtheria, tetanus toxoids and pertussis vaccine Denny Armani [facility] Work Phone: [facility] 1999 trivalent poliovirus vaccine, live, oral Denny Lomeli CNP Work Phone: [facility] 1999 hepatitis B vaccine, pediatric or pediatric/adolescent dosage Denny Lomeli CNP Work Phone: [facility] 1999 hepatitis B vaccine, pediatric or pediatric/adolescent dosage Denny Lomeli CNP Work Phone: [facility] Payers Date Payer Category Payer Unknown [id number] 1999 Unknown [id number] [id number] 1999 Unknown [id number] 2.16.8 [id number] 1999 Unknown [id number] 2.16.8 [id number] 1999 Unknown [id number] 2.16.8 [id number] 1999 Unknown [id number] 2.16.8 [id number] 1999 Unknown [id number] 2.16.8 [id number] 1999 Unknown [id number] [id number] 1999 Unknown [id number] 2.16.8 [id number] 1999 Unknown [id number] 2.16.8 [id number] 1959 Private Health Insurance [id number] Unknown [id number] Social History Date Type Detail Facility Assertion Family problems (finding) [facility] Assertion Problem situatio n relating to social and personal history (finding) [facility] Assertion Emotional stress (finding) [facility] Assertion Lives with parkacie ts (finding) [facility] Assertion Social drinker (finding) [facility] Assertion Benzodiazepine m isuse (finding) [facility] Assertion Sexually active (finding) [facility] Assertion [facility] Assertion Gender identity finding (finding) [facility] Assertion Finding of sexua l orientation (finding) [facility] Tobacco smoking status Unknown if ever smoked [facility] Work Phone: Start: 08-09-2017 End: 04-09-2021 Tobacco smoking status NHIS Never smoker [employer] Phone: Start: 08-09-2017 End: 04-09-2021 Tobacco use and exposure Never used [employer] Start: 04-09-2021 End: 07-09-2021 Alcohol intake Ex-drinker (finding) [employer] Phone: Start: 04-09-2021 History SDOH Alcohol Frequency 1 [employer] Phone: Start: 1999 Sex Assigned At Not on file [employer] Phone: Exposure to SARS-CoV-2 (event) Not sure [facility] Smoking monitori ng status (finding) [facility] Work Phone: Assertion Cigarette smoker (finding) [facility] Light cigarette smoker (1-9 cigs/day) (finding) [facility] Assertion Exposure to poll ution (event) [facility] Assertion Smoker (finding) [facility] Assertion Finding relating to sexual activity (finding) [facility] Assertion Homosexual behav ior (finding) [facility] Assertion Currently not se xually active (finding) [facility] Assertion Details of drug misuse behavior (observable entity) [facility] Assertion History of disor kyree (situation) [facility] NEGATED: Highlighted row Assertion Current drinker of alcohol (finding) [facility] NEGATED: Highlighted row Assertion Finding relating to drug misuse behavior (finding) [facility] NEGATED: Highlighted row Assertion [facility] NEGATED: Highlighted row Assertion Exposure to pollution (event) [facility] Medical Equipment Procedure Code Equipment Code Equipment Origin al Text Equipment Identifier Dates Blood Glucose Te st In Vitro Strip [id number] Start: 06-13-2024 End: 07-01-2024 [employer] Lancets Miscellaneous [id number] Start: 06-13-2024 OneTouch Ultra I n Vitro Strip [id number] Start: 07-01-2024 End: 06-26-2025 Mental Status Date Assessment Result Facility 10-23-2019 Cognitive function A previous dhillon icide attempt 2019 with hospitalization at [address] [place] [address] Work Phone: Cognitive function Cognitive fun ctioning was normal Cognitive function finding (finding) [facility] Work Phone: Clinical Notes 03-17-2021 to 07-29-2024 Note Date & Type Note Facility 07-29-2024 Evaluation note Includes: Assessments for all patient encounters Findings [D50.9 - Iron deficiency ane eduardo, unspecified] iron deficiency anemia Chart Update with Denny Armnai CHAVEZ 07/29/2024 Last Documented On 4 2:06PM ; [facility] Attention-deficit hyperactivity disorder Established Patient with Sarai Alberts [facility] 07/18/2024 Last Documented On 4 4:15PM ; [facility] Bipolar I disorder, most rec ent episode, depressed - mild Established Patient with Sarai Alberts [facility] 07/18/2024 Last Documented On 4 4:15PM ; [facility] Nicotine dependence Established Patient with Sarai Alberts [employer] 07/18/2024 Last Documented On 4 4:15PM ; [facility] Post-traumatic stress disorder Establ ished Patient with Sarai Alberts [facility] 07/18/2024 Last Documented On 4 4:15PM ; [facility] [Z68.43 - Body mass index [B VA] 50.0-59.9, adult] assessment of body mass index Medical Established Patient with Denny Lomeli [facility] 07/18/2024 Last Documented On 4 2:09PM ; [facility] Bipolar I disorder, most rec ent episode, depressed - mild Medical Established Patient with Denny Armani [employer] 07/18/2024 Last Documented On 4 2:09PM ; [facility] Caries Medical Established Patient with Denny Armani [employer] 07/18/2024 Last Documented On 4 2:09PM ; [facility] Encounter for Immunization Medical Estab lished Patient with Denny Armani [employer] 07/18/2024 Last Documented On 4 2:09PM ; [facility] Type 2 diabetes mellitus wit hout complication Medical Established Patient with Denny Armani [employer] 07/18/2024 Last Documented On 4 2:09PM ; [facility] Attention-deficit hyperactivity disorder Established Patient with Kinga Short [facility] 06/13/2024 Last Documented On 4 3:28PM ; [facility] Bipolar I disorder, most rec ent episode, depressed - mild BH Established Patient with Kinga Short [facility] 06/13/2024 Last Documented On 4 3:28PM ; [facility] Post-traumatic stress disorder BH Establ ished Patient with Kinga Short [facility] 06/13/2024 Last Documented On 4 3:28PM ; [facility] [E11.9 - Type 2 diabetes gloria litus without complications] type 2 diabetes mellitus Medical Established Patient with Denny Armani [employer] 06/13/2024 Last Documented On 4 7:36PM ; [facility] [F41.1 - Generalized anxiety disorder] generalized anxiety disorder Medical Established Patient with Denny Armani [employer] 06/13/2024 Last Documented On 4 7:36PM ; [facility] [I10 - Essential (primary) hypertension] essential hypertension Medical Established Patient with Denny Armani [employer] 06/13/2024 Last Documented On 4 7:36PM ; [facility] [N94.6 - Dysmenorrhea, unspe cified] dysmenorrhea Medical Established Patient with Denny Armani [employer] 06/13/2024 Last Documented On 4 7:36PM ; [facility] [Z68.43 - Body mass index [B VA] 50.0-59.9, adult] assessment of body mass index Medical Established Patient with Denny Lomeli [employer] 06/13/2024 Last Documented On 4 7:36PM ; [facility] Encounter for Immunization Medical Estab lished Patient with Denny Lomeli [employer] 06/13/2024 Last Documented On 4 7:36PM ; [facility] Venipuncture was performed Medical Estab lished Patient with Denny Lomeli [employer] 06/13/2024 Last Documented On 4 7:36PM ; [facility] Attention-deficit hyperactivity disorder Established Patient with Kinga Short [facility] 04/10/2024 Last Documented On 4 10:10AM ; [facility] Bipolar I disorder, most rec ent episode, depressed - mild Established Patient with Kinga Short [facility] 04/10/2024 Last Documented On 4 10:10AM ; [facility] Post-traumatic stress disorder Establ ished Patient with Kinga Short [facility] 04/10/2024 Last Documented On 4 10:10AM ; [facility] [D64.9 - Anemia, unspecified] anemia Med ical Established Patient with Denny Lomeli [employer] 04/10/2024 Last Documented On 4 6:51PM ; [facility] [Z68.43 - Body mass index [B VA] 50.0-59.9, adult] assessment of body mass index Medical Established Patient with Denny Lomeli [employer] 04/10/2024 Last Documented On 4 6:51PM ; [facility] Bipolar affective disorder, current episode depressed, mild Established Patient with Kinga Short [facility] 01/17/2024 Last Documented On 4 5:16PM ; [facility] Post-traumatic stress disorder Establ ished Patient with Kinga Short [facility] 01/17/2024 Last Documented On 4 5:16PM ; [facility] Undifferentiated attention d eficit disorder Established Patient with Kinga Short [facility] 01/17/2024 Last Documented On 4 5:16PM ; [facility] Visit for: screening for disorder BH Est ablished Patient with Kinga Short [facility] 01/17/2024 Last Documented On 4 5:16PM ; [facility] [Z68.43 - Body mass index [B VA] 50.0-59.9, adult] assessment of body mass index Medical Established Patient with Denny Lomeli [employer] 01/17/2024 Last Documented On 4 7:50PM ; [facility] Attention-deficit hyperactivity disorder Medical Established Patient with Denny Lomeli [employer] 01/17/2024 Last Documented On 4 7:50PM ; [facility] Diabetes Risk Test Score was three score 01/17/2024 Medical Established Patient with Denny Lomeli [employer] 01/17/2024 Last Documented On 4 7:50PM ; [facility] Visit for: screening for STD Medical Est ablished Patient with Denny Lomeli [employer] 01/17/2024 Last Documented On 4 7:50PM ; [facility] [Z68.32 - Body mass index [B VA] 32.0-32.9, adult] assessment of body mass index Medical Established Patient with Denny Lomeli [employer] 05/10/2023 Last Documented On 3 6:01PM ; [facility] Borderline personality disorder Medical Established Patient with Denny Lomeli [employer] 05/10/2023 Last Documented On 3 6:01PM ; [facility] Screening for diabetes mellitus Medical Established Patient with Denny Lomeli [employer] 05/10/2023 Last Documented On 3 6:01PM ; [facility] Assessment of body mass index Medical Es tablished Patient with Denny Lomeli [employer] 08/12/2022 Last Documented On 2 2:45PM ; [facility] Bipolar affective disorder, current episode manic [facility] with Belkisdionna [facility]offe[facility] 06/16/2022 Last Documented On 2 3:22PM ; [facility] Bipolar affective disorder, current episode manic BH Established Patient with Belkis Velarde [facility] 06/15/2022 Last Documented On 2 2:28PM ; [facility] Bipolar affective disorder, current episode depressed, severe with psychosis [facility] with Belkisdionna Velarde [facility] 06/15/2022 Last Documented On 2 3:29PM ; [facility] Assessment of body mass inde x [Body mass index [BMI] 50.0-59.9, adult] Open Access - Established with Leah Monique [employer] 06/15/2022 Last Documented On 2 9:36AM ; [facility] Bipolar I disorder, most rec ent episode, manic Open Access - Established with Leah Monique [employer] 06/15/2022 Last Documented On 2 9:36AM ; [facility] Post-traumatic stress disorder Establ ished Patient with Belkisdionna Velarde [facility] 06/08/2022 Last Documented On 2 3:20PM ; [facility] No cough Medical Established Patient with Denyn Armani [employer] 06/08/2022 Last Documented On 2 4:04PM ; [facility] Z68.43 - Body mass index [BM I] 50.0-59.9, adult Medical Established Patient with Denny Armani [employer] 06/08/2022 Last Documented On 2 4:04PM ; [facility] Borderline personality disor kyree Pt reported hx of sx/dx Established Patient with Belkisdionna Velarde [facility] 05/27/2022 Last Documented On 2 4:08PM ; [facility] Assessment of body mass inde x [Body mass index [BMI] 50.0-59.9, adult] Open Access - Established with Leah Monique [employer] 05/27/2022 Last Documented On 2 7:41PM ; [facility] Diabetes Risk Test Score was three score 05/27/2022 Open Access - Established with Leah Monique [employer] 05/27/2022 Last Documented On 2 7:41PM ; [facility] Bipolar I disorder, most rec ent episode, manic Established Patient with Eufemia Mcneil [facility] 07/15/2021 Last Documented On 1 1:35AM ; [facility] Borderline personality disorder Estab lished Patient with Eufemia Mcneil [facility] 07/15/2021 Last Documented On 1 1:35AM ; [facility] Post-traumatic stress disorder Establ ished Patient with Eufemia Mcneil [facility] 07/15/2021 Last Documented On 1 1:35AM ; [facility] Assessment of visit for: lloyd strange for human immunodeficiency virus Medical Established Patient with Denny Armani [employer] 07/15/2021 Last Documented On 1 2:56PM ; [facility] Nicotine dependence Medical Established Patient with Denny Armani [employer] 07/15/2021 Last Documented On 1 2:56PM ; [facility] Tachycardia Medical Established Patient with Denny Armani [employer] 07/15/2021 Last Documented On 1 2:56PM ; [facility] Z68.43 - Body mass index [BM I] 50.0-59.9, adult Medical Established Patient with Denny Armani [employer] 07/15/2021 Last Documented On 1 2:56PM ; [facility] Bipolar I disorder, most rec ent episode, manic Established Patient with Kinga Short [facility] 06/17/2021 Last Documented On 1 10:17AM ; [facility] Borderline personality disor kyree per patient reported history Established Patient with Kinga Short [facility] 06/17/2021 Last Documented On 1 10:17AM ; [facility] Nicotine dependence Established Patient with Kinga Short [facility] 06/17/2021 Last Documented On 1 10:17AM ; [facility] Post-traumatic stress disorder Establ ished Patient with Kinga Short [facility] 06/17/2021 Last Documented On 1 10:17AM ; [facility] Body mass index Medical Established Patient with Denny Armani [employer] 06/17/2021 Last Documented On 1 5:23PM ; [facility] Morbid obesity Medical Established Patient with Denny Armani [employer] 06/17/2021 Last Documented On 1 5:23PM ; [facility] Nicotine dependence uncomplicated Medica l Established Patient with Denny Armani [employer] 06/17/2021 Last Documented On 1 5:23PM ; [facility] Z68.42 - Body mass index [BM I] 45.0-49.9, adult Medical Established Patient with Denny Armani [employer] 06/17/2021 Last Documented On 1 5:23PM ; [facility] 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 [employer] 05/15/2021 Last Documented On 1 7:49AM ; [facility] Mood disorders, NOS per blaze ent reported history Established Patient with Kinga Short [facility] 04/23/2021 Last Documented On 1 7:15PM ; [facility] Post-traumatic stress disorder Establ ished Patient with Kinga Short [facility] 04/23/2021 Last Documented On 1 7:15PM ; [facility] Morbid obesity Medical Established Patient with Denny Armani [employer] 04/23/2021 Last Documented On 1 12:31PM ; [facility] Otitis externa Medical Established Patient with Denny Armani [employer] 04/23/2021 Last Documented On 1 12:31PM ; [facility] Z68.42 - Body mass index [BM I] 45.0-49.9, adult Medical Established Patient with Denny Armani [employer] 04/23/2021 Last Documented On 1 12:31PM ; [facility] Post-traumatic stress disorder Establ ished Patient with Kinga Short [facility] 04/01/2021 Last Documented On 1 10:05PM ; [facility] Morbid obesity Medical Established Patient with Denny Armani [employer] 04/01/2021 Last Documented On 1 4:45PM ; [facility] Z68.42 - Body mass index [BM I] 45.0-49.9, adult Medical Established Patient with Denny Armani [employer] 04/01/2021 Last Documented On 1 4:45PM ; [facility] Post-traumatic stress disorder Establ ished Patient with Kinga Short [facility] 03/17/2021 Last Documented On 1 11:59AM ; [facility] Assessment of visit for: lloyd strange for human immunodeficiency virus Medical New Patient with Denny Lomeli [employer] 03/17/2021 Last Documented On 1 4:06PM ; [facility] Diabetes Risk Test Score was one score 03/17/2021 Medical New Patient with Denny Lomeli [employer] 03/17/2021 Last Documented On 1 4:06PM ; [facility] Hypertension Medical New Patient with Denny doherty [employer] 03/17/2021 Last Documented On 1 4:06PM ; [facility] Morbid obesity Medical New Patient with Denny doherty [employer] 03/17/2021 Last Documented On 1 4:06PM ; [facility] Post-traumatic stress disorder Medical New Patie nt with Denny Lomeli [employer] 03/17/2021 Last Documented On 1 4:06PM ; [facility] Z68.42 - Body mass index [BM I] 45.0-49.9, adult Medical New Patient with Denny Lomeli [employer] 03/17/2021 Last Documented On 1 4:06PM ; [facility] Work Phone: [phone] 436-922610-07-2024 Evaluation note Includes: Assessments for all patient encounters Findings Encounter Date [D50.9 - Iron deficiency ane eduardo, unspecified] iron deficiency anemia Chart Update with Denny Lomeli WOVEN PAPER HAT MENDER 07/29/2024 Last Documented On 4 2:06PM ; [facility] Attention-deficit hyperactivity disorder Established Patient with Sarai Alberts METROLOGY TECHNICIAN 07/18/2024 Last Documented On 4 4:15PM ; [facility] Bipolar I disorder, most rec ent episode, depressed - mild Established Patient with Sarai Alberts METROLOGY TECHNICIAN 07/18/2024 Last Documented On 4 4:15PM ; [facility] Nicotine dependence Established Patient with aSrai Alberts METROLOGY TECHNICIAN 07/18/2024 Last Documented On 4 4:15PM ; [facility] Post-traumatic stress disorder Establ ished Patient with Sarai Alberts METROLOGY TECHNICIAN 07/18/2024 Last Documented On 4 4:15PM ; [facility] [Z68.43 - Body mass index [B VA] 50.0-59.9, adult] assessment of body mass index Medical Established Patient with Dennyartem Landonen WOVEN PAPER HAT MENDER 07/18/2024 Last Documented On 4 1:56PM ; [facility] Bipolar I disorder, most rec ent episode, depressed - mild Medical Established Patient with Denny Armani WOVEN PAPER HAT MENDER 07/18/2024 Last Documented On 4 1:56PM ; [facility] Caries Medical Established Patient with Denny Armani WOVEN PAPER HAT MENDER 07/18/2024 Last Documented On 4 1:56PM ; [facility] Encounter for Immunization Medical Estab lished Patient with Denny Armani WOVEN PAPER HAT MENDER 07/18/2024 Last Documented On 4 1:56PM ; [facility] Type 2 diabetes mellitus wit hout complication Medical Established Patient with Denny Armani WOVEN PAPER HAT MENDER 07/18/2024 Last Documented On 4 1:56PM ; [facility] Attention-deficit hyperactivity disorder Established Patient with Kinga Short LISWS 06/13/2024 Last Documented On 4 3:28PM ; [facility] Bipolar I disorder, most rec ent episode, depressed - mild Established Patient with Kinga Short LISWS 06/13/2024 Last Documented On 4 3:28PM ; [facility] Post-traumatic stress disorder Establ ished Patient with Kinga Short LISWS 06/13/2024 Last Documented On 4 3:28PM ; [facility] [E11.9 - Type 2 diabetes gloria litus without complications] type 2 diabetes mellitus Medical Established Patient with Denny Armani WOVEN PAPER HAT MENDER 06/13/2024 Last Documented On 4 7:36PM ; [facility] [F41.1 - Generalized anxiety disorder] generalized anxiety disorder Medical Established Patient with Denny Armani WOVEN PAPER HAT MENDER 06/13/2024 Last Documented On 4 7:36PM ; [facility] [I10 - Essential (primary) hypertension] essential hypertension Medical Established Patient with Denny Lomeli WOVEN PAPER HAT MENDER 06/13/2024 Last Documented On 4 7:36PM ; [facility] [N94.6 - Dysmenorrhea, unspe cified] dysmenorrhea Medical Established Patient with Denny Lomeli WOVEN PAPER HAT MENDER 06/13/2024 Last Documented On 4 7:36PM ; [facility] [Z68.43 - Body mass index [B VA] 50.0-59.9, adult] assessment of body mass index Medical Established Patient with Denny Lomeli WOVEN PAPER HAT MENDER 06/13/2024 Last Documented On 4 7:36PM ; [facility] Encounter for Immunization Medical Estab lished Patient with Denny Lomeli WOVEN PAPER HAT MENDER 06/13/2024 Last Documented On 4 7:36PM ; [facility] Venipuncture was performed Medical Estab lished Patient with Denny Lomeli WOVEN PAPER HAT MENDER 06/13/2024 Last Documented On 4 7:36PM ; [facility] Attention-deficit hyperactivity disorder Established Patient with Kinga Short LISWS 04/10/2024 Last Documented On 4 10:10AM ; [facility] Bipolar I disorder, most rec ent episode, depressed - mild BH Established Patient with Kinga Short LISWS 04/10/2024 Last Documented On 4 10:10AM ; [facility] Post-traumatic stress disorder Establ ished Patient with Kinga Short LISWS 04/10/2024 Last Documented On 4 10:10AM ; [facility] [D64.9 - Anemia, unspecified] anemia Med ical Established Patient with Denny Lomeli WOVEN PAPER HAT MENDER 04/10/2024 Last Documented On 4 6:51PM ; [facility] [Z68.43 - Body mass index [B VA] 50.0-59.9, adult] assessment of body mass index Medical Established Patient with Denny Lomeli WOVEN PAPER HAT MENDER 04/10/2024 Last Documented On 4 6:51PM ; [facility] Bipolar affective disorder, current episode depressed, mild Established Patient with Kinga Short LISWS 01/17/2024 Last Documented On 4 5:16PM ; [facility] Post-traumatic stress disorder BH Establ ished Patient with Kinga Short LISWS 01/17/2024 Last Documented On 4 5:16PM ; [facility] Undifferentiated attention d eficit disorder Established Patient with Kinga Short LISWS 01/17/2024 Last Documented On 4 5:16PM ; [facility] Visit for: screening for disorder BH Est ablished Patient with Kinga Short LISWS 01/17/2024 Last Documented On 4 5:16PM ; [facility] [Z68.43 - Body mass index [B VA] 50.0-59.9, adult] assessment of body mass index Medical Established Patient with Denny Lomeli WOVEN PAPER HAT MENDER 01/17/2024 Last Documented On 4 7:50PM ; [facility] Attention-deficit hyperactivity disorder Medical Established Patient with Dennyartem Lomeli WOVEN PAPER HAT MENDER 01/17/2024 Last Documented On 4 7:50PM ; [facility] Diabetes Risk Test Score was three score 01/17/2024 Medical Established Patient with Dennyartem Landonen WOVEN PAPER HAT MENDER 01/17/2024 Last Documented On 4 7:50PM ; [facility] Visit for: screening for STD Medical Est ablished Patient with Dennyartem Lomeli WOVEN PAPER HAT MENDER 01/17/2024 Last Documented On 4 7:50PM ; [facility] [Z68.32 - Body mass index [B VA] 32.0-32.9, adult] assessment of body mass index Medical Established Patient with Dennyartem Lomeli WOVEN PAPER HAT MENDER 05/10/2023 Last Documented On 3 6:01PM ; [facility] Borderline personality disorder Medical Established Patient with Denny Armani WOVEN PAPER HAT MENDER 05/10/2023 Last Documented On 3 6:01PM ; [facility] Screening for diabetes mellitus Medical Established Patient with Denny Armani WOVEN PAPER HAT MENDER 05/10/2023 Last Documented On 3 6:01PM ; [facility] Assessment of body mass index Medical Es tablished Patient with Dennyartem Landonen WOVEN PAPER HAT MENDER 08/12/2022 Last Documented On 2 2:45PM ; [facility] Bipolar affective disorder, current episode manic [facility] with Belkisdionna Velarde LPCC-S 06/16/2022 Last Documented On 2 3:22PM ; [facility] Bipolar affective disorder, current episode manic Established Patient with Belkisdionna Velarde LPCC-S 06/15/2022 Last Documented On 2 2:28PM ; [facility] Bipolar affective disorder, current episode depressed, severe with psychosis [facility] with Belkisdionna Velarde LPCC-S 06/15/2022 Last Documented On 2 3:29PM ; [facility] Assessment of body mass inde x [Body mass index [BMI] 50.0-59.9, adult] Open Access - Established with Leah Monique WOVEN PAPER HAT MENDER 06/15/2022 Last Documented On 2 9:36AM ; [facility] Bipolar I disorder, most rec ent episode, manic Open Access - Established with Leah Monique WOVEN PAPER HAT MENDER 06/15/2022 Last Documented On 2 9:36AM ; [facility] Post-traumatic stress disorder Establ ished Patient with Belkisdionna Velarde LPCC-S 06/08/2022 Last Documented On 2 3:20PM ; [facility] No cough Medical Established Patient with Denny Armani WOVEN PAPER HAT MENDER 06/08/2022 Last Documented On 2 4:04PM ; [facility] Z68.43 - Body mass index [BM I] 50.0-59.9, adult Medical Established Patient with Denny Armani WOVEN PAPER HAT MENDER 06/08/2022 Last Documented On 2 4:04PM ; [facility] Borderline personality disor kyree Pt reported hx of sx/dx Established Patient with Belkisdionna Velarde LPCC-S 05/27/2022 Last Documented On 2 4:08PM ; [facility] Assessment of body mass inde x [Body mass index [BMI] 50.0-59.9, adult] Open Access - Established with Leah Monique WOVEN PAPER HAT MENDER 05/27/2022 Last Documented On 2 7:41PM ; [facility] Diabetes Risk Test Score was three score 05/27/2022 Open Access - Established with Leah Monique WOVEN PAPER HAT MENDER 05/27/2022 Last Documented On 2 7:41PM ; [facility] Bipolar I disorder, most rec ent episode, manic Established Patient with Eufemia Mcneil LPCC-S 07/15/2021 Last Documented On 1 1:35AM ; [facility] Borderline personality disorder Estab lished Patient with Eufemia Mcneil LPCC-S 07/15/2021 Last Documented On 1 1:35AM ; [facility] Post-traumatic stress disorder Establ ished Patient with Eufemia Mcneil LPCC-S 07/15/2021 Last Documented On 1 1:35AM ; [facility] Assessment of visit for: lloyd strange for human immunodeficiency virus Medical Established Patient with Denny Armani WOVEN PAPER HAT MENDER 07/15/2021 Last Documented On 1 2:56PM ; [facility] Nicotine dependence Medical Established Patient with Denny Armani WOVEN PAPER HAT MENDER 07/15/2021 Last Documented On 1 2:56PM ; [facility] Tachycardia Medical Established Patient with Denny Armani WOVEN PAPER HAT MENDER 07/15/2021 Last Documented On 1 2:56PM ; [facility] Z68.43 - Body mass index [BM I] 50.0-59.9, adult Medical Established Patient with Denny Armani WOVEN PAPER HAT MENDER 07/15/2021 Last Documented On 1 2:56PM ; [facility] Bipolar I disorder, most rec ent episode, manic Established Patient with Kinga Short LISWS 06/17/2021 Last Documented On 1 10:17AM ; [facility] Borderline personality disor kyree per patient reported history Established Patient with Kinga Short LISWS 06/17/2021 Last Documented On 1 10:17AM ; [facility] Nicotine dependence Established Patient with Kinga Short LISWS 06/17/2021 Last Documented On 1 10:17AM ; [facility] Post-traumatic stress disorder Establ ished Patient with Kinga Short LISWS 06/17/2021 Last Documented On 1 10:17AM ; [facility] Body mass index Medical Established Patient with Denny Armani WOVEN PAPER HAT MENDER 06/17/2021 Last Documented On 1 5:23PM ; [facility] Morbid obesity Medical Established Patient with Denny Armani WOVEN PAPER HAT MENDER 06/17/2021 Last Documented On 1 5:23PM ; [facility] Nicotine dependence uncomplicated Medica l Established Patient with Denny Armani WOVEN PAPER HAT MENDER 06/17/2021 Last Documented On 1 5:23PM ; [facility] Z68.42 - Body mass index [BM I] 45.0-49.9, adult Medical Established Patient with Denny Armani WOVEN PAPER HAT MENDER 06/17/2021 Last Documented On 1 5:23PM ; [facility] 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 Last Documented On 1 7:49AM ; [facility] Mood disorders, NOS per blaze ent reported history Established Patient with Kinga Short LISWS 04/23/2021 Last Documented On 1 7:15PM ; [facility] Post-traumatic stress disorder Establ ished Patient with Kinga Short LISWS 04/23/2021 Last Documented On 1 7:15PM ; [facility] Morbid obesity Medical Established Patient with Denny Armani WOVEN PAPER HAT MENDER 04/23/2021 Last Documented On 1 12:31PM ; [facility] Otitis externa Medical Established Patient with Denny Armani WOVEN PAPER HAT MENDER 04/23/2021 Last Documented On 1 12:31PM ; [facility] Z68.42 - Body mass index [BM I] 45.0-49.9, adult Medical Established Patient with Denny Armani WOVEN PAPER HAT MENDER 04/23/2021 Last Documented On 1 12:31PM ; [facility] Post-traumatic stress disorder Establ ished Patient with Kinga Short LISWS 04/01/2021 Last Documented On 1 10:05PM ; [facility] Morbid obesity Medical Established Patient with Denny Lomeli WOVEN PAPER HAT MENDER 04/01/2021 Last Documented On 1 4:45PM ; [facility] Z68.42 - Body mass index [BM I] 45.0-49.9, adult Medical Established Patient with Dennyartem Lomeli WOVEN PAPER HAT MENDER 04/01/2021 Last Documented On 1 4:45PM ; [facility] Post-traumatic stress disorder BH Establ ished Patient with Kinga Short LISWS 03/17/2021 Last Documented On 1 11:59AM ; [facility] Assessment of visit for: lloyd strange for human immunodeficiency virus Medical New Patient with Denny Armani WOVEN PAPER HAT MENDER 03/17/2021 Last Documented On 1 4:06PM ; [facility] Diabetes Risk Test Score was one score 03/17/2021 Medical New Patient with Denny Lomeli WOVEN PAPER HAT MENDER 03/17/2021 Last Documented On 1 4:06PM ; [facility] Hypertension Medical New Patient with Denny Maryjo doherty WOVEN PAPER HAT MENDER 03/17/2021 Last Documented On 1 4:06PM ; [facility] Morbid obesity Medical New Patient with Denny Maryjo zamoraen WOVEN PAPER HAT MENDER 03/17/2021 Last Documented On 1 4:06PM ; [facility] Post-traumatic stress disorder Medical [place] with Dennyartem Lomeli WOVEN PAPER HAT MENDER 03/17/2021 Last Documented On 1 4:06PM ; [facility] Z68.42 - Body mass index [BM I] 45.0-49.9, adult Medical New Patient with Dennyartem Lomeli WOVEN PAPER HAT MENDER 03/17/2021 Last Documented On 1 4:06PM ; [facility] Work Phone: 1(867) 179-486710-07-2024 Progress note* Progress note Date Encounter Last Documented by 07/29/2024 Chart Update Last documented on 07/31/2024; 2:06 PM, Denny Lomeli CNP; [facility] Active Problems & Conditions - F90.9 [...] symptoms persist, 1 days, 0 refills - Snoball Ultra In Vitro Strip USE ONE TEST [...] EndCited Care Team - Denny Lomeli CNP [facility]10-01-2024 Progress note* Progress note Date Encounter Last Documented by 07/23/2024 Chart Update Last documented on 07/29/2024; 12:06 PM, Denny Lomeli CNP; [facility] Active Problems & Conditions - F90.9 [...] symptoms persist, 1 days, 0 refills - Snoball Ultra In Vitro Strip USE ONE TEST [...] disorders Care Team - Denny Lomeli CNP [facility]09-30-2024 History general Narrative - Reported Includes: Medical History in patient's chart Description Last Updated No Safety Measures 07/22/2024 Last Documented On 4 4:15PM ; [facility] POTS 04/10/2024 Last Documented On 4 6:51PM ; [facility] 0 previous live (s) 01/17/2024 Last Documented On 4 7:50PM ; [facility] Previously 1 time(s) 01/17/2024 Last Documented On 4 7:50PM ; [facility] Recent immunization for flu 01/17/2024 Last Documented On 4 7:50PM ; [facility] Has sex without a condom 06/08/2022 Last Documented On 2 4:04PM ; [facility] Not planning to have a baby in the next 12 months 06/08/2022 Last Documented On 2 4:04PM ; [facility] sexually transmitted infection status known 06/08/2022 Last Documented On 2 4:04PM ; [facility] No previous hospitalizations 06/08/2022 Last Documented On 2 4:04PM ; [facility] Chronic illness 05/17/2021 Last Documented On 1 7:49AM ; [facility] Exposure to COVID-19 04/23/2021 Last Documented On 1 12:31PM ; [facility] History of gynecologic disorder 03/17/20 21 Last Documented On 1 4:06PM ; [facility] History of Polycystic Ovarian Syndrome ( PCOS) 03/17/2021 Last Documented On 1 4:06PM ; [facility] History of anxiety disorder NOS 03/17/20 21 Last Documented On 1 4:06PM ; [facility] History of migraine headache 03/17/2021 Last Documented On 1 4:06PM ; [facility] History of psychiatric disorders biopola r disorder 03/17/2021 Last Documented On 1 4:06PM ; [facility] Work Phone: 1(407) 745-961609-30-2024 History general Narrative - Reported Includes: Medical History in patient's chart Description Last Updated No Safety Measures 07/22/2024 Last Documented On 4 4:15PM ; [facility] Consent form on file for procedure 07/18 Last Documented On 4 1:56PM ; [facility] POTS 04/10/2024 Last Documented On 4 6:51PM ; [facility] 0 previous live (s) 01/17/2024 Last Documented On 4 7:50PM ; [facility] Previously 1 time(s) 01/17/2024 Last Documented On 4 7:50PM ; [facility] Recent immunization for flu 01/17/2024 Last Documented On 4 7:50PM ; [facility] Has sex without a condom 06/08/2022 Last Documented On 2 4:04PM ; [facility] Not planning to have a baby in the next 12 months 06/08/2022 Last Documented On 2 4:04PM ; [facility] sexually transmitted infection status known 06/08/2022 Last Documented On 2 4:04PM ; [facility] No previous hospitalizations 06/08/2022 Last Documented On 2 4:04PM ; [facility] Chronic illness 05/17/2021 Last Documented On 1 7:49AM ; [facility] Exposure to COVID-19 04/23/2021 Last Documented On 1 12:31PM ; [facility] History of gynecologic disorder 03/17/20 21 Last Documented On 1 4:06PM ; [facility] History of Polycystic Ovarian Syndrome ( PCOS) 03/17/2021 Last Documented On 1 4:06PM ; [facility] History of anxiety disorder NOS 03/17/20 21 Last Documented On 1 4:06PM ; [facility] History of migraine headache 03/17/2021 Last Documented On 1 4:06PM ; [facility] History of psychiatric disorders biopola r disorder 03/17/2021 Last Documented On 1 4:06PM ; [facility] Work Phone: 1(510) 815-153409-30-2024 History general Narrative - Reported Includes: Medical History in patient's chart Description Last Updated No Safety Measures 07/22/2024 Last Documented On 4 4:15PM ; [facility] Consent form on file for procedure 07/18 Last Documented On 4 1:56PM ; [facility] POTS 04/10/2024 Last Documented On 4 6:51PM ; [facility] 0 previous live (s) 01/17/2024 Last Documented On 4 7:50PM ; [facility] Previously 1 time(s) 01/17/2024 Last Documented On 4 7:50PM ; [facility] Recent immunization for flu 01/17/2024 Last Documented On 4 7:50PM ; [facility] Has sex without a condom 06/08/2022 Last Documented On 2 4:04PM ; [facility] Not planning to have a baby in the next 12 months 06/08/2022 Last Documented On 2 4:04PM ; [facility] sexually transmitted infection status known 06/08/2022 Last Documented On 2 4:04PM ; [facility] No previous hospitalizations 06/08/2022 Last Documented On 2 4:04PM ; [facility] Chronic illness 05/17/2021 Last Documented On 1 7:49AM ; [facility] Exposure to COVID-19 04/23/2021 Last Documented On 1 12:31PM ; [facility] History of gynecologic disorder 03/17/20 21 Last Documented On 1 4:06PM ; [facility] History of Polycystic Ovarian Syndrome ( PCOS) 03/17/2021 Last Documented On 1 4:06PM ; [facility] History of anxiety disorder NOS 03/17/20 21 Last Documented On 1 4:06PM ; [facility] History of migraine headache 03/17/2021 Last Documented On 1 4:06PM ; [facility] History of psychiatric disorders biopola r disorder 03/17/2021 Last Documented On 1 4:06PM ; [facility] Work Phone: 1(801) 881-721809-30-2024 History general Narrative - Reported Includes: Medical History in patient's chart Description Last Updated No Safety Measures 07/22/2024 Last Documented On 4 4:15PM ; [facility] Consent form on file for procedure 07/18 Last Documented On 4 2:09PM ; [facility] POTS 04/10/2024 Last Documented On 4 6:51PM ; [facility] 0 previous live (s) 01/17/2024 Last Documented On 4 7:50PM ; [facility] Previously 1 time(s) 01/17/2024 Last Documented On 4 7:50PM ; [facility] Recent immunization for flu 01/17/2024 Last Documented On 4 7:50PM ; [facility] Has sex without a condom 06/08/2022 Last Documented On 2 4:04PM ; [facility] Not planning to have a baby in the next 12 months 06/08/2022 Last Documented On 2 4:04PM ; [facility] sexually transmitted infection status known 06/08/2022 Last Documented On 2 4:04PM ; [facility] No previous hospitalizations 06/08/2022 Last Documented On 2 4:04PM ; [facility] Chronic illness 05/17/2021 Last Documented On 1 7:49AM ; [facility] Exposure to COVID-19 04/23/2021 Last Documented On 1 12:31PM ; [facility] History of gynecologic disorder 03/17/20 21 Last Documented On 1 4:06PM ; [facility] History of Polycystic Ovarian Syndrome ( PCOS) 03/17/2021 Last Documented On 1 4:06PM ; [facility] History of anxiety disorder NOS 03/17/20 21 Last Documented On 1 4:06PM ; [facility] History of migraine headache 03/17/2021 Last Documented On 1 4:06PM ; [facility] History of psychiatric disorders biopola r disorder 03/17/2021 Last Documented On 1 4:06PM ; [facility] Work Phone: 1(703) 908-134409-30-2024 History general Narrative - Reported Includes: Medical History in patient's chart Description Last Updated No Safety Measures 07/22/2024 Last Documented On 4 4:15PM ; [facility] Consent form on file for procedure 09/26 /2024 Last Documented On 4 1:56PM ; [facility] POTS 04/10/2024 Last Documented On 4 6:51PM ; [facility] 0 previous live (s) 01/17/2024 Last Documented On 4 7:50PM ; [facility] Previously 1 time(s) 01/17/2024 Last Documented On 4 7:50PM ; [facility] Recent immunization for flu 01/17/2024 Last Documented On 4 7:50PM ; [facility] Has sex without a condom 06/08/2022 Last Documented On 2 4:04PM ; [facility] Not planning to have a baby in the next 12 months 06/08/2022 Last Documented On 2 4:04PM ; [facility] sexually transmitted infection status known 06/08/2022 Last Documented On 2 4:04PM ; [facility] No previous hospitalizations 06/08/2022 Last Documented On 2 4:04PM ; [facility] Chronic illness 05/17/2021 Last Documented On 1 7:49AM ; [facility] Exposure to COVID-19 04/23/2021 Last Documented On 1 12:31PM ; [facility] History of gynecologic disorder 03/17/20 21 Last Documented On 1 4:06PM ; [facility] History of Polycystic Ovarian Syndrome ( PCOS) 03/17/2021 Last Documented On 1 4:06PM ; [facility] History of anxiety disorder NOS 03/17/20 21 Last Documented On 1 4:06PM ; [facility] History of migraine headache 03/17/2021 Last Documented On 1 4:06PM ; [facility] History of psychiatric disorders biopola r disorder 03/17/2021 Last Documented On 1 4:06PM ; [facility] Work Phone: 1(738) 477-700709-26-2024 Evaluation note Includes: Assessments for all patient encounters Findings Encounter Date Attention-deficit hyperactiv ity disorder BH Established Patient with Sarai Alberts METROLOGY TECHNICIAN 07/18/2024 Last Documented On 4 4:15PM ; [facility] Bipolar I disorder, most rec ent episode, depressed - mild BH Established Patient with Saraifiliberto Alberts METROLOGY TECHNICIAN 07/18/2024 Last Documented On 4 4:15PM ; [facility] Nicotine dependence Established Patient with Sarai Alberts METROLOGY TECHNICIAN 07/18/2024 Last Documented On 4 4:15PM ; [facility] Post-traumatic stress disorder Establ ished Patient with Sarai Alberts METROLOGY TECHNICIAN 07/18/2024 Last Documented On 4 4:15PM ; [facility] [Z68.43 - Body mass index [B VA] 50.0-59.9, adult] assessment of body mass index Medical Established Patient with Dennyartem Landonen WOVEN PAPER HAT MENDER 07/18/2024 Last Documented On 4 5:46PM ; [facility] Bipolar I disorder, most rec ent episode, depressed - mild Medical Established Patient with Denny Armani WOVEN PAPER HAT MENDER 07/18/2024 Last Documented On 4 5:46PM ; [facility] Caries Medical Established Patient with Denny Armani WOVEN PAPER HAT MENDER 07/18/2024 Last Documented On 4 5:46PM ; [facility] Encounter for Immunization Medical Estab lished Patient with Denny Armani WOVEN PAPER HAT MENDER 07/18/2024 Last Documented On 4 5:46PM ; [facility] Type 2 diabetes mellitus wit hout complication Medical Established Patient with Denny Armani WOVEN P[employer]ER HAT MENDER 07/18/2024 Last Documented On 4 5:46PM ; [facility] Attention-deficit hyperactivity disorder Established Patient with Kinga Short LISWS 06/13/2024 Last Documented On 4 3:28PM ; [facility] Bipolar I disorder, most rec ent episode, depressed - mild Established Patient with Kinga Short LISWS 06/13/2024 Last Documented On 4 3:28PM ; [facility] Post-traumatic stress disorder Establ ished Patient with Kinga Short LISWS 06/13/2024 Last Documented On 4 3:28PM ; [facility] [E11.9 - Type 2 diabetes gloria litus without complications] type 2 diabetes mellitus Medical Established Patient with Denny Lomeli WOVEN PAPER HAT MENDER 06/13/2024 Last Documented On 4 7:36PM ; [facility] [F41.1 - Generalized anxiety disorder] generalized anxiety disorder Medical Established Patient with Denny Lomeli WOVEN P[employer]ER HAT MENDER 06/13/2024 Last Documented On 4 7:36PM ; [facility] [I10 - Essential (primary) hypertension] essential hypertension Medical Established Patient with Denny Lomeli WOVEN PAPER HAT MENDER 06/13/2024 Last Documented On 4 7:36PM ; [facility] [N94.6 - Dysmenorrhea, unspe cified] dysmenorrhea Medical Established Patient with Denny Lomeli WOVEN PAPER HAT MENDER 06/13/2024 Last Documented On 4 7:36PM ; [facility] [Z68.43 - Body mass index [B VA] 50.0-59.9, adult] assessment of body mass index Medical Established Patient with Denny Lomeli WOVEN PAPER HAT MENDER 06/13/2024 Last Documented On 4 7:36PM ; [facility] Encounter for Immunization Medical Estab lished Patient with Denny Lomeli WOVEN PAPER HAT MENDER 06/13/2024 Last Documented On 4 7:36PM ; [facility] Venipuncture was performed Medical Estab lished Patient with Denny Lomeli WOVEN PAPER HAT MENDER 06/13/2024 Last Documented On 4 7:36PM ; [facility] Attention-deficit hyperactivity disorder Established Patient with Kinga Short LISWS 04/10/2024 Last Documented On 4 10:10AM ; [facility] Bipolar I disorder, most rec ent episode, depressed - mild BH Established Patient with Kinga Short LISWS 04/10/2024 Last Documented On 4 10:10AM ; [facility] Post-traumatic stress disorder Establ ished Patient with Kinga Short LISWS 04/10/2024 Last Documented On 4 10:10AM ; [facility] [D64.9 - Anemia, unspecified] anemia Med ical Established Patient with Denny Lomeli WOVEN PAPER HAT MENDER 04/10/2024 Last Documented On 4 6:51PM ; [facility] [Z68.43 - Body mass index [B VA] 50.0-59.9, adult] assessment of body mass index Medical Established Patient with Denny Lomeli WOVEN PAPER HAT MENDER 04/10/2024 Last Documented On 4 6:51PM ; [facility] Bipolar affective disorder, current episode depressed, mild Established Patient with Kinga Short LISWS 01/17/2024 Last Documented On 4 5:16PM ; [facility] Post-traumatic stress disorder Establ ished Patient with Kinga Short LISWS 01/17/2024 Last Documented On 4 5:16PM ; [facility] Undifferentiated attention d eficit disorder Established Patient with Kinga Short LISWS 01/17/2024 Last Documented On 4 5:16PM ; [facility] Visit for: screening for disorder BH Est ablished Patient with Kinga Short LISWS 01/17/2024 Last Documented On 4 5:16PM ; [facility] [Z68.43 - Body mass index [B VA] 50.0-59.9, adult] assessment of body mass index Medical Established Patient with Denny Lomeli WOVEN PAPER HAT MENDER 01/17/2024 Last Documented On 4 7:50PM ; [facility] Attention-deficit hyperactivity disorder Medical Established Patient with Denny Lomeli WOVEN PAPER HAT MENDER 01/17/2024 Last Documented On 4 7:50PM ; [facility] Diabetes Risk Test Score was three score 01/17/2024 Medical Established Patient with Denny Lomeli WOVEN PAPER HAT MENDER 01/17/2024 Last Documented On 4 7:50PM ; [facility] Visit for: screening for STD Medical Est ablished Patient with Denny Lomeli WOVEN PAPER HAT MENDER 01/17/2024 Last Documented On 4 7:50PM ; [facility] [Z68.32 - Body mass index [B VA] 32.0-32.9, adult] assessment of body mass index Medical Established Patient with Dennyartem Lomeli WOVEN PAPER HAT MENDER 05/10/2023 Last Documented On 3 6:01PM ; [facility] Borderline personality disorder Medical Established Patient with Denny Armani WOVEN PAPER HAT MENDER 05/10/2023 Last Documented On 3 6:01PM ; [facility] Screening for diabetes mellitus Medical Established Patient with Denny Armani WOVEN P[employer]ER HAT MENDER 05/10/2023 Last Documented On 3 6:01PM ; [facility] Assessment of body mass index Medical Es tablished Patient with Denny Armani WOVEN P[employer]ER HAT MENDER 08/12/2022 Last Documented On 2 2:45PM ; [facility] Bipolar affective disorder, current episode manic Telebehavioral Health with Belkis Velarde LPCC-S 06/16/2022 Last Documented On 2 3:22PM ; [facility] Bipolar affective disorder, current episode manic Established Patient with Belkis Velarde LPCC-S 06/15/2022 Last Documented On 2 2:28PM ; [facility] Bipolar affective disorder, current episode depressed, severe with psychosis Telebehavioral Health with Belkis Velarde LPCC-S 06/15/2022 Last Documented On 2 3:29PM ; [facility] Assessment of body mass inde x [Body mass index [BMI] 50.0-59.9, adult] Open Access - Established with Leah Monique WOVEN PAPER HAT MENDER 06/15/2022 Last Documented On 2 9:36AM ; [facility] Bipolar I disorder, most rec ent episode, manic Open Access - Established with Leah Monique WOVEN PAPER HAT MENDER 06/15/2022 Last Documented On 2 9:36AM ; [facility] Post-traumatic stress disorder BH Establ ished Patient with Belkis Velarde LPCC-S 06/08/2022 Last Documented On 2 3:20PM ; [facility] No cough Medical Established Patient with Denny Armani WOVEN PAPER HAT MENDER 06/08/2022 Last Documented On 2 4:04PM ; [facility] Z68.43 - Body mass index [BM I] 50.0-59.9, adult Medical Established Patient with Denny Armani WOVEN PAPER HAT MENDER 06/08/2022 Last Documented On 2 4:04PM ; [facility] Borderline personality disor kyree Pt reported hx of sx/dx Established Patient with Belkis Velarde LPCC-S 05/27/2022 Last Documented On 2 4:08PM ; [facility] Assessment of body mass inde x [Body mass index [BMI] 50.0-59.9, adult] Open Access - Established with Leah Amaya WOVEN PAPER HAT MENDER 05/27/2022 Last Documented On 2 7:41PM ; [facility] Diabetes Risk Test Score was three score 05/27/2022 Open Access - Established with Leah Amaya WOVEN P[employer]ER HAT MENDER 05/27/2022 Last Documented On 2 7:41PM ; [facility] Bipolar I disorder, most rec ent episode, manic Established Patient with Eufemia Mcneil LPCC-S 07/15/2021 Last Documented On 1 1:35AM ; [facility] Borderline personality disorder Estab lished Patient with Eufemia Mcneil LPCC-S 07/15/2021 Last Documented On 1 1:35AM ; [facility] Post-traumatic stress disorder Establ ished Patient with Eufemia Mcneil LPCC-S 07/15/2021 Last Documented On 1 1:35AM ; [facility] Assessment of visit for: lloyd mcgillning for human immunodeficiency virus Medical Established Patient with Denny Armani WOVEN PAPER HAT MENDER 07/15/2021 Last Documented On 1 2:56PM ; [facility] Nicotine dependence Medical Established Patient with Denny Armani WOVEN P[employer]ER HAT MENDER 07/15/2021 Last Documented On 1 2:56PM ; [facility] Tachycardia Medical Established Patient with Denny Armani WOVEN PAPER HAT MENDER 07/15/2021 Last Documented On 1 2:56PM ; [facility] Z68.43 - Body mass index [BM I] 50.0-59.9, adult Medical Established Patient with Denny Armani WOVEN PAPER HAT MENDER 07/15/2021 Last Documented On 1 2:56PM ; [facility] Bipolar I disorder, most rec ent episode, manic BH Established Patient with Kinga Short LISWS 06/17/2021 Last Documented On 1 10:17AM ; [facility] Borderline personality disor kyree per patient reported history Established Patient with Kinga Short LISWS 06/17/2021 Last Documented On 1 10:17AM ; [facility] Nicotine dependence BH Established Patient with Kinga Short LISWS 06/17/2021 Last Documented On 1 10:17AM ; [facility] Post-traumatic stress disorder Establ ished Patient with Kinga Short LISWS 06/17/2021 Last Documented On 1 10:17AM ; [facility] Body mass index Medical Established Patient with Denny Armani WOVEN PAPER HAT MENDER 06/17/2021 Last Documented On 1 5:23PM ; [facility] Morbid obesity Medical Established Patient with Denny Armani WOVEN PAPER HAT MENDER 06/17/2021 Last Documented On 1 5:23PM ; [facility] Nicotine dependence uncomplicated Medica l Established Patient with Denny Armani WOVEN PAPER HAT MENDER 06/17/2021 Last Documented On 1 5:23PM ; [facility] Z68.42 - Body mass index [BM I] 45.0-49.9, adult Medical Established Patient with Denny Armani WOVEN PAPER HAT MENDER 06/17/2021 Last Documented On 1 5:23PM ; [facility] 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 Last Documented On 1 7:49AM ; [facility] Mood disorders, NOS per blaze ent reported history Established Patient with Kinga Short LISWS 04/23/2021 Last Documented On 1 7:15PM ; [facility] Post-traumatic stress disorder Establ ished Patient with Kinga Short LISWS 04/23/2021 Last Documented On 1 7:15PM ; [facility] Morbid obesity Medical Established Patient with Denny Armani WOVEN PAPER HAT MENDER 04/23/2021 Last Documented On 1 12:31PM ; [facility] Otitis externa Medical Established Patient with Denny Armani WOVEN PAPER HAT MENDER 04/23/2021 Last Documented On 1 12:31PM ; [facility] Z68.42 - Body mass index [BM I] 45.0-49.9, adult Medical Established Patient with Denny Armani WOVEN PAPER HAT MENDER 04/23/2021 Last Documented On 1 12:31PM ; [facility] Post-traumatic stress disorder Establ ished Patient with Kinga Short LISWS 04/01/2021 Last Documented On 1 10:05PM ; [facility] Morbid obesity Medical Established Patient with Denny Armani WOVEN PAPER HAT MENDER 04/01/2021 Last Documented On 1 4:45PM ; [facility] Z68.42 - Body mass index [BM I] 45.0-49.9, adult Medical Established Patient with Denny Armani WOVEN PAPER HAT MENDER 04/01/2021 Last Documented On 1 4:45PM ; [facility] Post-traumatic stress disorder Establ ished Patient with Kinga Short LISWS 03/17/2021 Last Documented On 1 11:59AM ; [facility] Assessment of visit for: lloyd mcgillning for human immunodeficiency virus Medical New Patient with Denny Armani WOVEN PAPER HAT MENDER 03/17/2021 Last Documented On 1 4:06PM ; [facility] Diabetes Risk Test Score was one score 03/17/2021 Medical New Patient with Denny Armani WOVEN PAPER HAT MENDER 03/17/2021 Last Documented On 1 4:06PM ; [facility] Hypertension Medical New Patient with Denny C chas WOVEN PAPER HAT MENDER 03/17/2021 Last Documented On 1 4:06PM ; [facility] Morbid obesity Medical New Patient with Denny C chas WOVEN PAPER HAT MENDER 03/17/2021 Last Documented On 1 4:06PM ; [facility] Post-traumatic stress disorder Medical [place] with Denny Armani WOVEN PAPER HAT MENDER 03/17/2021 Last Documented On 1 4:06PM ; [facility] Z68.42 - Body mass index [BM I] 45.0-49.9, adult Medical New Patient with Denny Armani WOVEN PAPER HAT MENDER 03/17/2021 Last Documented On 1 4:06PM ; [facility] Work Phone: 1(135) 475-840209-26-2024 Evaluation note Includes: Assessments for all patient encounters Findings Encounter Date Attention-deficit hyperactiv ity disorder BH Established Patient with Sarai Alberts METROLOGY TECHNICIAN 07/18/2024 Last Documented On 4 4:15PM ; [facility] Bipolar I disorder, most rec ent episode, depressed - mild BH Established Patient with Sarai Alberts METROLOGY TECHNICIAN 07/18/2024 Last Documented On 4 4:15PM ; [facility] Nicotine dependence Established Patient with Saraifiliberto Alberts METROLOGY TECHNICIAN 07/18/2024 Last Documented On 4 4:15PM ; [facility] Post-traumatic stress disorder Establ ished Patient with Sarai Alberts METROLOGY TECHNICIAN 07/18/2024 Last Documented On 4 4:15PM ; [facility] [Z68.43 - Body mass index [B VA] 50.0-59.9, adult] assessment of body mass index Medical Established Patient with Denny Lomeli WOVEN PAPER HAT MENDER 07/18/2024 Last Documented On 4 1:56PM ; [facility] Bipolar I disorder, most rec ent episode, depressed - mild Medical Established Patient with Dennyartem Lomeli WOVEN PAPER HAT MENDER 07/18/2024 Last Documented On 4 1:56PM ; [facility] Caries Medical Established Patient with Denny Landonen WOVEN PAPER HAT MENDER 07/18/2024 Last Documented On 4 1:56PM ; [facility] Encounter for Immunization Medical Estab lished Patient with Denny Landonen WOVEN PAPER HAT MENDER 07/18/2024 Last Documented On 4 1:56PM ; [facility] Type 2 diabetes mellitus wit hout complication Medical Established Patient with Denny Armani WOVEN PAPER HAT MENDER 07/18/2024 Last Documented On 4 1:56PM ; [facility] Attention-deficit hyperactivity disorder Established Patient with Kinga Short LISWS 06/13/2024 Last Documented On 4 3:28PM ; [facility] Bipolar I disorder, most rec ent episode, depressed - mild BH Established Patient with Kinga Bourgeois LISWS 06/13/2024 Last Documented On 4 3:28PM ; [facility] Post-traumatic stress disorder BH Establ ished Patient with Kinga Short LISWS 06/13/2024 Last Documented On 4 3:28PM ; [facility] [E11.9 - Type 2 diabetes gloria litus without complications] type 2 diabetes mellitus Medical Established Patient with Denny Lomeli WOVEN PAPER HAT MENDER 06/13/2024 Last Documented On 4 7:36PM ; [facility] [F41.1 - Generalized anxiety disorder] generalized anxiety disorder Medical Established Patient with Denny Lomeli WOVEN PAPER HAT MENDER 06/13/2024 Last Documented On 4 7:36PM ; [facility] [I10 - Essential (primary) hypertension] essential hypertension Medical Established Patient with Denny Lomeli WOVEN PAPER HAT MENDER 06/13/2024 Last Documented On 4 7:36PM ; [facility] [N94.6 - Dysmenorrhea, unspe cified] dysmenorrhea Medical Established Patient with Denny Lomeli WOVEN PAPER HAT MENDER 06/13/2024 Last Documented On 4 7:36PM ; [facility] [Z68.43 - Body mass index [B VA] 50.0-59.9, adult] assessment of body mass index Medical Established Patient with Denny Lomeli WOVEN PAPER HAT MENDER 06/13/2024 Last Documented On 4 7:36PM ; [facility] Encounter for Immunization Medical Estab lished Patient with Denny Lomeli WOVEN PAPER HAT MENDER 06/13/2024 Last Documented On 4 7:36PM ; [facility] Venipuncture was performed Medical Estab lished Patient with Denny Lomeli WOVEN PAPER HAT MENDER 06/13/2024 Last Documented On 4 7:36PM ; [facility] Attention-deficit hyperactivity disorder Established Patient with Kinga Short LISWS 04/10/2024 Last Documented On 4 10:10AM ; [facility] Bipolar I disorder, most rec ent episode, depressed - mild Established Patient with Kinga Short LISWS 04/10/2024 Last Documented On 4 10:10AM ; [facility] Post-traumatic stress disorder BH Establ ished Patient with Kinga Short LISWS 04/10/2024 Last Documented On 4 10:10AM ; [facility] [D64.9 - Anemia, unspecified] anemia Med ical Established Patient with Denny Lomeli WOVEN PAPER HAT MENDER 04/10/2024 Last Documented On 4 6:51PM ; [facility] [Z68.43 - Body mass index [B VA] 50.0-59.9, adult] assessment of body mass index Medical Established Patient with Denny Lomeli WOVEN PAPER HAT MENDER 04/10/2024 Last Documented On 4 6:51PM ; [facility] Bipolar affective disorder, current episode depressed, mild Established Patient with Kinga Short LISWS 01/17/2024 Last Documented On 4 5:16PM ; [facility] Post-traumatic stress disorder Establ ished Patient with Kinga Short LISWS 01/17/2024 Last Documented On 4 5:16PM ; [facility] Undifferentiated attention d eficit disorder Established Patient with Kinga Short LISWS 01/17/2024 Last Documented On 4 5:16PM ; [facility] Visit for: screening for disorder BH Est ablished Patient with Kinga Short LISWS 01/17/2024 Last Documented On 4 5:16PM ; [facility] [Z68.43 - Body mass index [B VA] 50.0-59.9, adult] assessment of body mass index Medical Established Patient with Denny Lomeli WOVEN PAPER HAT MENDER 01/17/2024 Last Documented On 4 7:50PM ; [facility] Attention-deficit hyperactivity disorder Medical Established Patient with Denny Lomeli WOVEN PAPER HAT MENDER 01/17/2024 Last Documented On 4 7:50PM ; [facility] Diabetes Risk Test Score was three score 01/17/2024 Medical Established Patient with Denny Lomeli WOVEN PAPER HAT MENDER 01/17/2024 Last Documented On 4 7:50PM ; [facility] Visit for: screening for STD Medical Est ablished Patient with Denny Lomeli WOVEN PAPER HAT MENDER 01/17/2024 Last Documented On 4 7:50PM ; [facility] [Z68.32 - Body mass index [B VA] 32.0-32.9, adult] assessment of body mass index Medical Established Patient with Denny Lomeli WOVEN PAPER HAT MENDER 05/10/2023 Last Documented On 3 6:01PM ; [facility] Borderline personality disorder Medical Established Patient with Denny Lomeli WOVEN PAPER HAT MENDER 05/10/2023 Last Documented On 3 6:01PM ; [facility] Screening for diabetes mellitus Medical Established Patient with Denny Lomeli WOVEN PAPER HAT MENDER 05/10/2023 Last Documented On 3 6:01PM ; [facility] Assessment of body mass index Medical Es tablished Patient with Denny Lomeli WOVEN PAPER HAT MENDER 08/12/2022 Last Documented On 2 2:45PM ; [facility] Bipolar affective disorder, current episode manic Telebehavioral Health with Belkisdionna CoffeyVelarde LPCC-S 06/16/2022 Last Documented On 2 3:22PM ; [facility] Bipolar affective disorder, current episode manic Established Patient with Belkis Velarde LPCC-S 06/15/2022 Last Documented On 2 2:28PM ; [facility] Bipolar affective disorder, current episode depressed, severe with psychosis Telebehavioral Health with Belkis Velarde LPCC-S 06/15/2022 Last Documented On 2 3:29PM ; [facility] Assessment of body mass inde x [Body mass index [BMI] 50.0-59.9, adult] Open Access - Established with Leah Monique WOVEN PAPER HAT MENDER 06/15/2022 Last Documented On 2 9:36AM ; [facility] Bipolar I disorder, most rec ent episode, manic Open Access - Established with Leah Monique WOVEN P[employer]ER HAT MENDER 06/15/2022 Last Documented On 2 9:36AM ; [facility] Post-traumatic stress disorder BH Establ ished Patient with Belkis Velarde LPCC-S 06/08/2022 Last Documented On 2 3:20PM ; [facility] No cough Medical Established Patient with Denny Armani WOVEN PAPER HAT MENDER 06/08/2022 Last Documented On 2 4:04PM ; [facility] Z68.43 - Body mass index [BM I] 50.0-59.9, adult Medical Established Patient with Denny Armani WOVEN P[employer]ER HAT MENDER 06/08/2022 Last Documented On 2 4:04PM ; [facility] Borderline personality disor kyree Pt reported hx of sx/dx Established Patient with Belkis Velarde LPCC-S 05/27/2022 Last Documented On 2 4:08PM ; [facility] Assessment of body mass inde x [Body mass index [BMI] 50.0-59.9, adult] Open Access - Established with Leah Amaya [facility] [place] 05/27/2022 Last Documented On 2 7:41PM ; [facility] Diabetes Risk Test Score was three score 05/27/2022 Open Access - Established with Leah Monique [facility] [place] 05/27/2022 Last Documented On 2 7:41PM ; [facility] Bipolar I disorder, most rec ent episode, manic Established Patient with Eufemia Mcneil LPCC-S 07/15/2021 Last Documented On 1 1:35AM ; [facility] Borderline personality disorder Estab lished Patient with Eufemia Mcneil LPCC-S 07/15/2021 Last Documented On 1 1:35AM ; [facility] Post-traumatic stress disorder Establ ished Patient with Eufemia Mcneil LPCC-S 07/15/2021 Last Documented On 1 1:35AM ; [facility] Assessment of visit for: lloyd mcgillning for human immunodeficiency virus Medical Established Patient with Denny Armani [employer] 07/15/2021 Last Documented On 1 2:56PM ; [facility] Nicotine dependence Medical Established Patient with Denny Armani [employer] 07/15/2021 Last Documented On 1 2:56PM ; [facility] Tachycardia Medical Established Patient with Denny Armani [employer] 07/15/2021 Last Documented On 1 2:56PM ; [facility] Z68.43 - Body mass index [BM I] 50.0-59.9, adult Medical Established Patient with Denny Armani [employer] 07/15/2021 Last Documented On 1 2:56PM ; [facility] Bipolar I disorder, most rec ent episode, manic Established Patient with Kinga Short LISWS 06/17/2021 Last Documented On 1 10:17AM ; [facility] Borderline personality disor kyree per patient reported history Established Patient with Kinga Short LISWS 06/17/2021 Last Documented On 1 10:17AM ; [facility] Nicotine dependence BH Established Patient with Kinga Short LISWS 06/17/2021 Last Documented On 1 10:17AM ; [facility] Post-traumatic stress disorder Establ ished Patient with Kinga Short LISWS 06/17/2021 Last Documented On 1 10:17AM ; [facility] Body mass index Medical Established Patient with Denny Armani [employer] 06/17/2021 Last Documented On 1 5:23PM ; [facility] Morbid obesity Medical Established Patient with Denny Armani [employer] 06/17/2021 Last Documented On 1 5:23PM ; [facility] Nicotine dependence uncomplicated Medica l Established Patient with Denny Armani [employer] 06/17/2021 Last Documented On 1 5:23PM ; [facility] Z68.42 - Body mass index [BM I] 45.0-49.9, adult Medical Established Patient with Denny Armani [employer] 06/17/2021 Last Documented On 1 5:23PM ; [facility] 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 Last Documented On 1 7:49AM ; [facility] Mood disorders, NOS per blaze ent reported history Established Patient with Kinga Short LISWS 04/23/2021 Last Documented On 1 7:15PM ; [facility] Post-traumatic stress disorder Establ ished Patient with Kinga Short LISWS 04/23/2021 Last Documented On 1 7:15PM ; [facility] Morbid obesity Medical Established Patient with Denny Armani [employer] 04/23/2021 Last Documented On 1 12:31PM ; [facility] Otitis externa Medical Established Patient with Denny Armani [employer] 04/23/2021 Last Documented On 1 12:31PM ; [facility] Z68.42 - Body mass index [BM I] 45.0-49.9, adult Medical Established Patient with Denny Armani [employer] 04/23/2021 Last Documented On 1 12:31PM ; [facility] Post-traumatic stress disorder Establ ished Patient with Kinga Short LISWS 04/01/2021 Last Documented On 1 10:05PM ; [facility] Morbid obesity Medical Established Patient with Denny Armani [employer] 04/01/2021 Last Documented On 1 4:45PM ; [facility] Z68.42 - Body mass index [BM I] 45.0-49.9, adult Medical Established Patient with Denny Armani [employer] 04/01/2021 Last Documented On 1 4:45PM ; [facility] Post-traumatic stress [facility] Establ ished Patient with Kinga Short LISWS 03/17/2021 Last Documented On 1 11:59AM ; [facility] Assessment of visit for: scr eening for human immunodeficiency virus Medical New Patient with Denny Armani [employer] 03/17/2021 Last Documented On 1 4:06PM ; [facility] Diabetes Risk Test Score was one score 03/17/2021 Medical New Patient with Denny Armani [employer] 03/17/2021 Last Documented On 1 4:06PM ; [facility] Hypertension Medical New Patient with Denny C chas [employer] 03/17/2021 Last Documented On 1 4:06PM ; [facility] Morbid obesity Medical New Patient with Ednny C chas [employer] 03/17/2021 Last Documented On 1 4:06PM ; [facility] Post-traumatic stress disorder Medical New Patie nt with Denny Armani [employer] 03/17/2021 Last Documented On 1 4:06PM ; [facility] Z68.42 - Body mass index [BM I] 45.0-49.9, adult Medical New Patient with Denny Lomeli [employer] 03/17/2021 Last Documented On 1 4:06PM ; [facility] Work Phone: 1(113) 298-802409-26-2024 Progress note* Progress note Date Encounter Last Documented by 07/18/2024 Established Patient Last docu mented on 07/22/2024; 4:15 PM, Sarai GREENW; [facility] Active Problems & Conditions - F90.9 - Attention-deficit Hyperactivity Disorder - F31.31 - Bipolar I Disorder, Most Recent Episode, Depressed Mild - E11.9 - Diabetes Mellitus Type 2 Without Complication - N94.6 - Dysmenorrhea - F43.10 - Post-traumatic Stress Disorder Subjective [facility] met with patient for mood and medications. [...] agreed to go with her walking. Discussed [facility] patient the benefits of seeing a psychiatrist [...] symptoms persist, 1 days, 0 refills - Snoball Ultra In Vitro Strip USE ONE TEST [...] of things, or get along? Very difficult. [facility]09-26-2024 Progress note* Progress note Date Encounter Last Documented by 07/18/2024 Medical Established Patient Last documented on 07/26/2024; 1:56 PM, Denny Lomeli CNP; [facility] Active Problems & Conditions - F90.9 [...] BP-Sitting L135/86 mmHg BP Cuff SizeLarge Pulse Rate-Dkgteyu102 bpm Respiration Rate18 per min Temp-Oral97.6 F Clvlaw08 in Vbgyjh531 lbs Body Mass Index57.2 kg/m2 Body Surface Area2.4 m2 Oxygen Svgijzwkpi47 % Vital Signs: - Systolic blood pressure [...] the next year. Bottom of Document Illustration [facility]09-26-2024 Progress note* Progress note Date Encounter Last Documented by 07/18/2024 Medical Established Patient Last documented on 07/31/2024; 2:09 PM, Denny Lomeli CNP; [facility] Active Problems & Conditions - F90.9 [...] BP-Sitting L135/86 mmHg BP Cuff SizeLarge Pulse Rate-Psxdklj276 bpm Respiration Rate18 per min Temp-Oral97.6 F Quvavw31 in Mffvrm529 lbs Body Mass Index57.2 kg/m2 Body Surface Area2.4 m2 Oxygen Lvsandcjze73 % Vital Signs: - Systolic blood pressure [...] in the next year. 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 05/27/22 Established Patient Belkis Syd SOLORZANO CC-S Referral To Mental Health Team 03/17/21 Medical New Patient Denny Lomeli CNP Refe rral To Mental Health Team [facility] Work Phone: [phone]) 864-582408-22-2024 Evaluation note Includes: Assessments for all patient encounters Findings Encounter Date Attention-deficit hyperactiv ity disorder Established Patient with Kinga Short LISWS 06/13/2024 Last Documented On 4 6:28PM ; [facility] Bipolar I disorder, most rec ent episode, depressed - mild Established Patient with Kinga Short LISWS 06/13/2024 Last Documented On 4 6:28PM ; [facility] Post-traumatic stress disorder Establ ished Patient with Kinga Short LISWS 06/13/2024 Last Documented On 4 6:28PM ; [facility] [E11.9 - Type 2 diabetes gloria litus without complications] type 2 diabetes mellitus Medical Established Patient with Denny Lomeli [employer] 06/13/2024 Last Documented On 4 7:36PM ; [facility] [F41.1 - Generalized anxiety disorder] generalized anxiety disorder Medical Established Patient with Denny Lomeli [employer] 06/13/2024 Last Documented On 4 7:36PM ; [facility] [I10 - Essential (primary) hypertension] essential hypertension Medical Established Patient with Denny Lomeli [employer] 06/13/2024 Last Documented On 4 7:36PM ; [facility] [N94.6 - Dysmenorrhea, unspe cified] dysmenorrhea Medical Established Patient with Denny Lomeli [employer] 06/13/2024 Last Documented On 4 7:36PM ; [facility] [Z68.43 - Body mass index [B VA] 50.0-59.9, adult] assessment of body mass index Medical Established Patient with Denny Lomeli [employer] 06/13/2024 Last Documented On 4 7:36PM ; [facility] Encounter for Immunization Medical Estab lished Patient with Denny Lomeli [employer] 06/13/2024 Last Documented On 4 7:36PM ; [facility] Venipuncture was performed Medical Estab lished Patient with Denny Lomeli [employer] 06/13/2024 Last Documented On 4 7:36PM ; [facility] Attention-deficit hyperactivity disorder Established Patient with Kinga Short LISWS 04/10/2024 Last Documented On 4 10:10AM ; [facility] Bipolar I disorder, most rec ent episode, depressed - mild Established Patient with Kinga Short LISWS 04/10/2024 Last Documented On 4 10:10AM ; [facility] Post-traumatic stress disorder Establ ished Patient with Kinga Short LISWS 04/10/2024 Last Documented On 4 10:10AM ; [facility] [D64.9 - Anemia, unspecified] anemia Med ical Established Patient with Denny Lomeli [employer] 04/10/2024 Last Documented On 4 6:51PM ; [facility] [Z68.43 - Body mass index [B VA] 50.0-59.9, adult] assessment of body mass index Medical Established Patient with Denny Lomeli [employer] 04/10/2024 Last Documented On 4 6:51PM ; [facility] Bipolar affective disorder, current episode depressed, mild Established Patient with Kinga Short LISWS 01/17/2024 Last Documented On 4 5:16PM ; [facility] Post-traumatic stress disorder Establ ished Patient with Kinga Short LISWS 01/17/2024 Last Documented On 4 5:16PM ; [facility] Undifferentiated attention d eficit disorder Established Patient with Kinga Short LISWS 01/17/2024 Last Documented On 4 5:16PM ; [facility] Visit for: screening for disorder Est ablished Patient with Kinga Short LISWS 01/17/2024 Last Documented On 4 5:16PM ; [facility] [Z68.43 - Body mass index [B VA] 50.0-59.9, adult] assessment of body mass index Medical Established Patient with Denny Lomeli [employer] 01/17/2024 Last Documented On 4 7:50PM ; [facility] Attention-deficit hyperactivity disorder Medical Established Patient with Denny Lomeli [employer] 01/17/2024 Last Documented On 4 7:50PM ; [facility] Diabetes Risk Test Score was three score 01/17/2024 Medical Established Patient with Denny Lomeli [employer] 01/17/2024 Last Documented On 4 7:50PM ; [facility] Visit for: screening for STD Medical Est ablished Patient with Denny Lomeli [employer] 01/17/2024 Last Documented On 4 7:50PM ; [facility] [Z68.32 - Body mass index [B VA] 32.0-32.9, adult] assessment of body mass index Medical Established Patient with Denny Lomeli [employer] 05/10/2023 Last Documented On 3 6:01PM ; [facility] Borderline personality disorder Medical Established Patient with Denny Lomeli [employer] 05/10/2023 Last Documented On 3 6:01PM ; [facility] Screening for diabetes mellitus Medical Established Patient with Denny Lomeli [employer] 05/10/2023 Last Documented On 3 6:01PM ; [facility] Assessment of body mass index Medical Es tablished Patient with Denny Lomeli [employer] 08/12/2022 Last Documented On 2 2:45PM ; [facility] Bipolar affective disorder, current episode manic [facility] with Belkisdionna Velarde LPCC-S 06/16/2022 Last Documented On 2 3:22PM ; [facility] Bipolar affective disorder, current episode manic Established Patient with Belkisdionna CoffeyVelarde LPCC-S 06/15/2022 Last Documented On 2 2:28PM ; [facility] Bipolar affective disorder, current episode depressed, severe with psychosis [facility] with Belkisdionna CoffeyVelarde LPCC-S 06/15/2022 Last Documented On 2 3:29PM ; [facility] Assessment of body mass inde x [Body mass index [BMI] 50.0-59.9, adult] Open Access - Established with Leah Monique [employer] 06/15/2022 Last Documented On 2 9:36AM ; [facility] Bipolar I disorder, most rec ent episode, manic Open Access - Established with Leah Monique [employer] 06/15/2022 Last Documented On 2 9:36AM ; [facility] Post-traumatic stress disorder BH Establ ished Patient with Belkisdionna CoffeyVelarde LPCC-S 06/08/2022 Last Documented On 2 3:20PM ; [facility] No cough Medical Established Patient with Denny Armani [employer] 06/08/2022 Last Documented On 2 4:04PM ; [facility] Z68.43 - Body mass index [BM I] 50.0-59.9, adult Medical Established Patient with Denny Armani [employer] 06/08/2022 Last Documented On 2 4:04PM ; [facility] Borderline personality disor kyree Pt reported hx of sx/dx BH Established Patient with Belkisdionna CoffeyVelarde LPCC-S 05/27/2022 Last Documented On 2 4:08PM ; [facility] Assessment of body mass inde x [Body mass index [BMI] 50.0-59.9, adult] Open Access - Established with Leah Monique [employer] 05/27/2022 Last Documented On 2 7:41PM ; [facility] Diabetes Risk Test Score was three score 05/27/2022 Open Access - Established with Leah Monique [employer] 05/27/2022 Last Documented On 2 7:41PM ; [facility] Bipolar I disorder, most rec ent episode, manic BH Established Patient with Eufemia Mcneil LPCC-S 07/15/2021 Last Documented On 1 1:35AM ; [facility] Borderline personality disorder BH Estab lished Patient with Eufemia Mcneil LPCC-S 07/15/2021 Last Documented On 1 1:35AM ; [facility] Post-traumatic stress disorder BH Establ ished Patient with Eufemia Mcneil LPCC-S 07/15/2021 Last Documented On 1 1:35AM ; [facility] Assessment of visit for: lloyd strange for human immunodeficiency virus Medical Established Patient with Denny Armani [employer] 07/15/2021 Last Documented On 1 2:56PM ; [facility] Nicotine dependence Medical Established Patient with Denny Armani [employer] 07/15/2021 Last Documented On 1 2:56PM ; [facility] Tachycardia Medical Established Patient with Denny Armani [employer] 07/15/2021 Last Documented On 1 2:56PM ; [facility] Z68.43 - Body mass index [BM I] 50.0-59.9, adult Medical Established Patient with Denny Armani [employer] 07/15/2021 Last Documented On 1 2:56PM ; [facility] Bipolar I disorder, most rec ent episode, manic Established Patient with Kinga Short LISWS 06/17/2021 Last Documented On 1 10:17AM ; [facility] Borderline personality disor kyree per patient reported history Established Patient with Kinga Short LISWS 06/17/2021 Last Documented On 1 10:17AM ; [facility] Nicotine dependence Established Patient with Kinga Short LISWS 06/17/2021 Last Documented On 1 10:17AM ; [facility] Post-traumatic stress disorder Establ ished Patient with Kinga Short LISWS 06/17/2021 Last Documented On 1 10:17AM ; [facility] Body mass index Medical Established Patient with Denny Armani [employer] 06/17/2021 Last Documented On 1 5:23PM ; [facility] Morbid obesity Medical Established Patient with Denny Armani [employer] 06/17/2021 Last Documented On 1 5:23PM ; [facility] Nicotine dependence uncomplicated Medica l Established Patient with Denny Armani [employer] 06/17/2021 Last Documented On 1 5:23PM ; [facility] Z68.42 - Body mass index [BM I] 45.0-49.9, adult Medical Established Patient with Denny Armani [employer] 06/17/2021 Last Documented On 1 5:23PM ; [facility] 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 disorders 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 Dainelsarlyn zuniga [employer] 05/15/2021 Last Documented On 1 7:49AM ; [facility] Mood disorders, NOS per blaze ent reported history Established Patient with Kinga Short LISWS 04/23/2021 Last Documented On 1 7:15PM ; [facility] Post-traumatic stress disorder Establ ished Patient with Kinga Short LISWS 04/23/2021 Last Documented On 1 7:15PM ; [facility] Morbid obesity Medical Established Patient with Denny Armani [employer] 04/23/2021 Last Documented On 1 12:31PM ; [facility] Otitis externa Medical Established Patient with Denny Armani [employer] 04/23/2021 Last Documented On 1 12:31PM ; [facility] Z68.42 - Body mass index [BM I] 45.0-49.9, adult Medical Established Patient with Denny Armani [employer] 04/23/2021 Last Documented On 1 12:31PM ; [facility] Post-traumatic stress disorder Establ ished Patient with Kinga Short LISWS 04/01/2021 Last Documented On 1 10:05PM ; [facility] Morbid obesity Medical Established Patient with Denny Armani [employer] 04/01/2021 Last Documented On 1 4:45PM ; [facility] Z68.42 - Body mass index [BM I] 45.0-49.9, adult Medical Established Patient with Denny Armani [employer] 04/01/2021 Last Documented On 1 4:45PM ; [facility] Post-traumatic stress disorder Establ ished Patient with Kinga Short LISWS 03/17/2021 Last Documented On 1 11:59AM ; [facility] Assessment of visit for: lloyd strange for human immunodeficiency virus Medical New Patient with Denny Armani [employer] 03/17/2021 Last Documented On 1 4:06PM ; [facility] Diabetes Risk Test Score was one score 03/17/2021 Medical New Patient with Denny Lomeli [employer] 03/17/2021 Last Documented On 1 4:06PM ; [facility] Hypertension Medical New Patient with Dennyartem doherty [employer] 03/17/2021 Last Documented On 1 4:06PM ; [facility] Morbid obesity Medical New Patient with Denny Maryjo doherty [employer] 03/17/2021 Last Documented On 1 4:06PM ; [facility] Post-traumatic stress disorder Medical New Patie nt with Dennyartem Landonen [employer] 03/17/2021 Last Documented On 1 4:06PM ; [facility] Z68.42 - Body mass index [BM I] 45.0-49.9, adult Medical New Patient with Denny Lomeli [employer] 03/17/2021 Last Documented On 1 4:06PM ; [facility] Work Phone: 1(516) 676-303908-22-2024 Evaluation note Includes: Assessments for all patient encounters Findings Encounter Date Attention-deficit hyperactiv ity disorder Established Patient with Kinga Short LISWS 06/13/2024 Last Documented On 4 3:28PM ; [facility] Bipolar I disorder, most rec ent episode, depressed - mild Established Patient with Kinga Short LISWS 06/13/2024 Last Documented On 4 3:28PM ; [facility] Post-traumatic stress disorder Establ ished Patient with Kinga Short LISWS 06/13/2024 Last Documented On 4 3:28PM ; [facility] [E11.9 - Type 2 diabetes gloria litus without complications] type 2 diabetes mellitus Medical Established Patient with Dennyatrem Landonen [employer] 06/13/2024 Last Documented On 4 7:36PM ; [facility] [F41.1 - Generalized anxiety disorder] generalized anxiety disorder Medical Established Patient with Denny Armani [employer] 06/13/2024 Last Documented On 4 7:36PM ; [facility] [I10 - Essential (primary) hypertension] essential hypertension Medical Established Patient with Denny Lomeli [employer] 06/13/2024 Last Documented On 4 7:36PM ; [facility] [N94.6 - Dysmenorrhea, unspe cified] dysmenorrhea Medical Established Patient with Denny Lomeli [employer] 06/13/2024 Last Documented On 4 7:36PM ; [facility] [Z68.43 - Body mass index [B VA] 50.0-59.9, adult] assessment of body mass index Medical Established Patient with Denny Lomeli [employer] 06/13/2024 Last Documented On 4 7:36PM ; [facility] Encounter for Immunization Medical Estab lished Patient with Denny Lomeli [employer] 06/13/2024 Last Documented On 4 7:36PM ; [facility] Venipuncture was performed Medical Estab lished Patient with Denny Lomeli [employer] 06/13/2024 Last Documented On 4 7:36PM ; [facility] Attention-deficit hyperactivity disorder Established Patient with Kinga Short LISWS 04/10/2024 Last Documented On 4 10:10AM ; [facility] Bipolar I disorder, most rec ent episode, depressed - mild BH Established Patient with Kinga Short LISWS 04/10/2024 Last Documented On 4 10:10AM ; [facility] Post-traumatic stress disorder Establ ished Patient with Kinga Short LISWS 04/10/2024 Last Documented On 4 10:10AM ; [facility] [D64.9 - Anemia, unspecified] anemia Med ical Established Patient with Denny Lomeli [employer] 04/10/2024 Last Documented On 4 6:51PM ; [facility] [Z68.43 - Body mass index [B VA] 50.0-59.9, adult] assessment of body mass index Medical Established Patient with Denny Lomeli [employer] 04/10/2024 Last Documented On 4 6:51PM ; [facility] Bipolar affective disorder, current episode depressed, mild Established Patient with Kinga Short LISWS 01/17/2024 Last Documented On 4 5:16PM ; [facility] Post-traumatic stress disorder BH Establ ished Patient with Kinga Short LISWS 01/17/2024 Last Documented On 4 5:16PM ; [facility] Undifferentiated attention d eficit disorder Established Patient with Kinga Short LISWS 01/17/2024 Last Documented On 4 5:16PM ; [facility] Visit for: screening for disorder BH Est ablished Patient with Kinga Short LISWS 01/17/2024 Last Documented On 4 5:16PM ; [facility] [Z68.43 - Body mass index [B VA] 50.0-59.9, adult] assessment of body mass index Medical Established Patient with Denny Lomeli [employer] 01/17/2024 Last Documented On 4 7:50PM ; [facility] Attention-deficit hyperactivity disorder Medical Established Patient with Dennyartem Lomeli [employer] 01/17/2024 Last Documented On 4 7:50PM ; [facility] Diabetes Risk Test Score was three score 01/17/2024 Medical Established Patient with Dennyartem Landonen [employer] 01/17/2024 Last Documented On 4 7:50PM ; [facility] Visit for: screening for STD Medical Est ablished Patient with Dennyartem Lomeli [employer] 01/17/2024 Last Documented On 4 7:50PM ; [facility] [Z68.32 - Body mass index [B VA] 32.0-32.9, adult] assessment of body mass index Medical Established Patient with Dennyartem Lomeli [employer] 05/10/2023 Last Documented On 3 6:01PM ; [facility] Borderline personality disorder Medical Established Patient with Denny Armani [employer] 05/10/2023 Last Documented On 3 6:01PM ; [facility] Screening for diabetes mellitus Medical Established Patient with Denny Armani [employer] 05/10/2023 Last Documented On 3 6:01PM ; [facility] Assessment of body mass index Medical Es tablished Patient with Dennyartem Landonen [employer] 08/12/2022 Last Documented On 2 2:45PM ; [facility] Bipolar affective disorder, current episode manic [facility]behavior[facility] with Belkisdionna Velarde LPCC-S 06/16/2022 Last Documented On 2 3:22PM ; [facility] Bipolar affective disorder, current episode manic Established Patient with Belkisdionna Velarde LPCC-S 06/15/2022 Last Documented On 2 2:28PM ; [facility] Bipolar affective disorder, current episode depressed, severe with psychosis [facility] with Belkisdionna Velarde LPCC-S 06/15/2022 Last Documented On 2 3:29PM ; [facility] Assessment of body mass inde x [Body mass index [BMI] 50.0-59.9, adult] Open Access - Established with Leah Monique [employer] 06/15/2022 Last Documented On 2 9:36AM ; [facility] Bipolar I disorder, most rec ent episode, manic Open Access - Established with Leah Monique [employer] 06/15/2022 Last Documented On 2 9:36AM ; [facility] Post-traumatic stress disorder Establ ished Patient with Belkisdionna Velarde LPCC-S 06/08/2022 Last Documented On 2 3:20PM ; [facility] No cough Medical Established Patient with Denny Armani [employer] 06/08/2022 Last Documented On 2 4:04PM ; [facility] Z68.43 - Body mass index [BM I] 50.0-59.9, adult Medical Established Patient with Denny Armani [employer] 06/08/2022 Last Documented On 2 4:04PM ; [facility] Borderline personality disor kyree Pt reported hx of sx/dx Established Patient with Belkisdionna Velarde LPCC-S 05/27/2022 Last Documented On 2 4:08PM ; [facility] Assessment of body mass inde x [Body mass index [BMI] 50.0-59.9, adult] Open Access - Established with Leah Monique [employer] 05/27/2022 Last Documented On 2 7:41PM ; [facility] Diabetes Risk Test Score was three score 05/27/2022 Open Access - Established with Leah Monique [employer] 05/27/2022 Last Documented On 2 7:41PM ; [facility] Bipolar I disorder, most rec ent episode, manic Established Patient with Eufemia Mcneil LPCC-S 07/15/2021 Last Documented On 1 1:35AM ; [facility] Borderline personality disorder Estab lished Patient with Eufemia Mcneil LPCC-S 07/15/2021 Last Documented On 1 1:35AM ; [facility] Post-traumatic stress disorder Establ ished Patient with Eufemia Mcneil LPCC-S 07/15/2021 Last Documented On 1 1:35AM ; [facility] Assessment of visit for: lloyd strange for human immunodeficiency virus Medical Established Patient with Denny Armani [employer] 07/15/2021 Last Documented On 1 2:56PM ; [facility] Nicotine dependence Medical Established Patient with Denny Armani [employer] 07/15/2021 Last Documented On 1 2:56PM ; [facility] Tachycardia Medical Established Patient with Denny Armani [employer] 07/15/2021 Last Documented On 1 2:56PM ; [facility] Z68.43 - Body mass index [BM I] 50.0-59.9, adult Medical Established Patient with Dennyartem Lomeli [employer] 07/15/2021 Last Documented On 1 2:56PM ; [facility] Bipolar I disorder, most rec ent episode, manic Established Patient with Kinga Short LISWS 06/17/2021 Last Documented On 1 10:17AM ; [facility] Borderline personality disor kyree per patient reported history Established Patient with Kinga Short LISWS 06/17/2021 Last Documented On 1 10:17AM ; [facility] Nicotine dependence Established Patient with Kinga Short LISWS 06/17/2021 Last Documented On 1 10:17AM ; [facility] Post-traumatic stress disorder Establ ished Patient with Kinga Short LISWS 06/17/2021 Last Documented On 1 10:17AM ; [facility] Body mass index Medical Established Patient with Denny Armani [employer] 06/17/2021 Last Documented On 1 5:23PM ; [facility] Morbid obesity Medical Established Patient with Denny Armani [employer] 06/17/2021 Last Documented On 1 5:23PM ; [facility] Nicotine dependence uncomplicated Medica l Established Patient with Denny Armani [employer] 06/17/2021 Last Documented On 1 5:23PM ; [facility] Z68.42 - Body mass index [BM I] 45.0-49.9, adult Medical Established Patient with Denny Armani [employer] 06/17/2021 Last Documented On 1 5:23PM ; [facility] 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 Last Documented On 1 7:49AM ; [facility] Mood disorders, NOS per blaze ent reported history Established Patient with Kinga Short LISWS 04/23/2021 Last Documented On 1 7:15PM ; [facility] Post-traumatic stress disorder Establ ished Patient with Kinga Short LISWS 04/23/2021 Last Documented On 1 7:15PM ; [facility] Morbid obesity Medical Established Patient with Denny Armani [employer] 04/23/2021 Last Documented On 1 12:31PM ; [facility] Otitis externa Medical Established Patient with Denny Armani [employer] 04/23/2021 Last Documented On 1 12:31PM ; [facility] Z68.42 - Body mass index [BM I] 45.0-49.9, adult Medical Established Patient with Denny Armani [employer] 04/23/2021 Last Documented On 1 12:31PM ; [facility] Post-traumatic stress disorder Establ ished Patient with Kinga Short LISWS 04/01/2021 Last Documented On 1 10:05PM ; [facility] Morbid obesity Medical Established Patient with Denny Lomeli [employer] 04/01/2021 Last Documented On 1 4:45PM ; [facility] Z68.42 - Body mass index [BM I] 45.0-49.9, adult Medical Established Patient with Dennyartem Lomeli [employer] 04/01/2021 Last Documented On 1 4:45PM ; [facility] Post-traumatic stress disorder BH Establ ished Patient with Kinga Short LISWS 03/17/2021 Last Documented On 1 11:59AM ; [facility] Assessment of visit for: lloyd strange for human immunodeficiency virus Medical New Patient with Dennyaretm Lomeli [employer] 03/17/2021 Last Documented On 1 4:06PM ; [facility] Diabetes Risk Test Score was one score 03/17/2021 Medical New Patient with Denny Lomeli [employer] 03/17/2021 Last Documented On 1 4:06PM ; [facility] Hypertension Medical New Patient with Denny Maryjo doherty [employer] 03/17/2021 Last Documented On 1 4:06PM ; [facility] Morbid obesity Medical New Patient with Denny Maryjo doherty [employer] 03/17/2021 Last Documented On 1 4:06PM ; [facility] Post-traumatic stress disorder Medical New Patie nt with Dennyartem Lomeli [employer] 03/17/2021 Last Documented On 1 4:06PM ; [facility] Z68.42 - Body mass index [BM I] 45.0-49.9, adult Medical New Patient with Dennyartem Lomeli [employer] 03/17/2021 Last Documented On 1 4:06PM ; [facility] Work Phone: 1(546) 693-320308-22-2024 Progress note* Progress note Date Encounter Last Documented by 06/13/2024 Medical Established Patient Last documented on 06/13/2024; 7:36 PM, Denny Lomeli CNP; [facility] Active Problems & Conditions - F90.9 [...] 3 months ago , 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 [facility]08-22-2024 Progress note* Progress note Date Encounter Last Documented by 06/13/2024 Established Patient Last docu mented on 06/14/2024; 3:28 PM, Kinga RUDOLPH; [facility] Active Problems & Conditions - F90.9 - Attention-deficit Hyperactivity Disorder - F31.31 - Bipolar I Disorder, Most Recent Episode, Depressed Mild - E11.9 - Diabetes Mellitus Type 2 Without Complication - N94.6 - Dysmenorrhea - F43.10 - Post-traumatic Stress Disorder Chief Complaint The Chief Complaint is: [facility] met with patient to follow-up regarding mood and medications. Patient had requested to meet with a different [facility] in office but was not avialable and [...] Reminders - Assess Tobacco Use satisfied 06/13/2024. [facility]06-19-2024 Instructions Includes: Instructions for all patient encounters Education and Decision Aids were provided during visit for: Discussed nutritional needs teach healthy choices including fruits and vegetables Last Documented On 4 4:46PM ; [facility] Patient education about a pr oper diet Last Documented On 4 4:46PM ; [facility] Discussed concerns about exe rcise : promote physical activity Last Documented On 4 4:46PM ; [facility] Not requesting contraception Last Documented On 4 4:46PM ; [facility] offered active and suppo rtive listening and processed current stressors related to getting medications. ~[facility] discussed coping skills and supports to implement in daily routine. ~[facility] discussed progress patient has felt they have made recently and encouraged continued follow-up with providers to address health Last Documented On 4 5:16PM ; [facility] Discussed nutritional needs teach healthy choices including fruits and vegetables Last Documented On 4 7:14PM ; [facility] Patient education about a pr oper diet Last Documented On 4 7:14PM ; [facility] Discussed concerns about exe rcise : promote physical activity Last Documented On 4 7:14PM ; [facility] Not requesting contraception Last Documented On 4 7:14PM ; [facility] Discussed nutritional needs teach healthy choices including fruits and vegetables Last Documented On 3 5:15PM ; [facility] Patient education about a pr oper diet Last Documented On 3 5:15PM ; [facility] Discussed concerns about exe rcise : promote physical activity Last Documented On 3 5:15PM ; [facility] Discussed nutritional needs teach healthy choices including fruits and vegetables Last Documented On 2 1:42PM ; [facility] Patient education about a pr oper diet Last Documented On 2 1:42PM ; [facility] Discussed concerns about exe rcise : promote physical activity Last Documented On 2 1:42PM ; [facility] and supportive feedback; normalized emotions and feelings, also provided pt time to process any current stressors. ~Promoted and encouraged follow-through with scheduling psychiatric services Last Documented On 2 3:21PM ; [facility] provided supportive, empa thic listening and reflective feedback. ~Explored, encouraged, and supported the pt to discuss current sx/mood, assess risk for harm/need, coping mechanisms, support network and safety planning. ~Supported pt's plan to f/up with Dr. Carney, as planned at [place], [place]. ~Encouraged pt to use safety plan, if needed to ensure she remains safe Last Documented On 2 2:27PM ; [facility] Discussed nutritional needs teach healthy choices including fruits and vegetables Last Documented On 2 3:20PM ; [facility] Patient education about a pr oper diet Last Documented On 2 3:20PM ; [facility] Discussed concerns about exe rcise : promote physical activity ~ ~Will restart trazodone and prazosin ~ ~Patient is planning to have brother stay with her for a few days for emotional support ~ ~Follow up with PCP at next scheduled visit ~ ~Call psychiatrist office to schedule appt ~ ~Call counselor Last Documented On 2 9:35AM ; [facility] Provided supportive listenin g and empathic feedback; encouraged, explored, and supported the pt as she processed current symptoms, Issues, and concerns. ~Discussed past tx and explored current needs/options. Acknowledged and validated pt's thoughts and emotions. ~Explored coping mechanisms and support network; utilized opportunity for safety planning; promoted seeking positive support and seeking help, as needed Last Documented On 2 3:28PM ; [facility] provided active listenin g, support and helped pt process though current symptoms and stressor(s). Discussed and explored past effectiveness of medication; identified objectives and future goals; promoted use of healthy coping mechanisms, and self-care practices Last Documented On 2 3:19PM ; [facility] Reviewed side effects and Ri sks/Benefits analysis Last Documented On 2 3:19PM ; [facility] Discussed nutritional needs teach healthy choices including fruits and vegetables Last Documented On 2 3:15PM ; [facility] Patient education about a pr oper diet Last Documented On 2 3:15PM ; [facility] Discussed concerns about exe rcise : promote physical activity Last Documented On 2 3:15PM ; [facility] introduced pt to HPWO in tegrated model of care ~[facility] offered active listening and supportive feedback; normalized emotions and feelings, also provided pt time to process any current stressors ~[facility] discussed potential benefits of counseling and supported re-engaging, as needed. ~[facility] encouraged pt to continue to make time to implement self-care regimen and use coping methods, as needed Last Documented On 2 4:07PM ; [facility] Discussed nutritional needs teach healthy choices including fruits and vegetables Last Documented On 2 3:15PM ; [facility] Patient education about a pr oper diet Last Documented On 2 3:15PM ; [facility] Inquiry and counseling about medication administration and compliance Last Documented On 2 7:37PM ; [facility] Discussed concerns about exe rcise : promote physical activity Last Documented On 2 3:15PM ; [facility] Patient goals discussed Last Documented On 2 7:37PM ; [facility] Ansewred pt's questions re B orderlline Personality D/O and Bipolar D/O raised by psychiatrist at [place]. ~Validated and normalized patient?s feelings while assisting to process recent events Last Documented On 1 1:33AM ; [facility] Discussed nutritional needs teach healthy choices including fruits and vegetables Last Documented On 1 2:04PM ; [facility] Patient education about a pr oper diet Last Documented On 1 2:04PM ; [facility] Discussed concerns about exe rcise : promote physical activity Last Documented On 1 2:04PM ; [facility] provided active listenin g, support and helped patient process through current symptoms and stressors with ongoing mental health concerns and medication changes. ~P discussed coping skills and supports that patient is implementing. discussed implementing coping skills as discussed with counseling and attending weekly appointments as scheduled with counselor. Patient was encouraged to continue writing down concerns with medications and discuss with providers. ~[facility] reminded patient of crisis resources should they be needed. Patient reports having crisis resources and could return to ER Last Documented On 1 10:17AM ; [facility] Patient education about a pr oper diet Last Documented On 1 5:17PM ; [facility] Patient education about meal planning Last Documented On 1 5:17PM ; [facility] Education about changing eat ing habits Last Documented On 1 5:17PM ; [facility] Patient education about high fiber diet Last Documented On 1 5:17PM ; [facility] Patient education about low fat diet Last Documented On 1 5:17PM ; [facility] Patient education about low cholesterol diet Last Documented On 1 5:17PM ; [facility] Patient education about low carbohydrate diet Last Documented On 1 5:17PM ; [facility] Patient education about high protein diet Last Documented On 1 5:17PM ; [facility] offered active and suppo rtive listening, normalized emotions and feelings, and processed current stressors. ~[facility] discussed resources for finding a counselor and provided list of local resources. ~[facility] discussed patients coping skills and supports and encouraged patient to continue to implement. [facility] reminded patient of crisis resources should they be needed Last Documented On 1 7:15PM ; [facility] Discussed nutritional needs teach healthy choices including fruits and vegetables Last Documented On 1 11:38AM ; [facility] Patient education about a pr oper diet Last Documented On 1 11:38AM ; [facility] Patient education about a pr oper diet Last Documented On 1 12:19PM ; [facility] Patient education about meal planning Last Documented On 1 12:19PM ; [facility] Education about changing eat ing habits Last Documented On 1 12:19PM ; [facility] Patient education about high fiber diet Last Documented On 1 12:19PM ; [facility] Patient education about low fat diet Last Documented On 1 12:19PM ; [facility] Patient education about low cholesterol diet Last Documented On 1 12:19PM ; [facility] Patient education about low carbohydrate diet Last Documented On 1 12:19PM ; [facility] Patient education about high protein diet Last Documented On 1 12:19PM ; [facility] Discussed concerns about exe rcise : promote physical activity Last Documented On 1 11:38AM ; [facility] provided active listenin g, support and helped patient process through current symptoms and stressors related to family conflict. [facility] discussed coping skills and supports with patient that can be implemented and reminded patient of ways to access additional resources. [facility] discussed crisis resources and plan. Patient has crisis resources still available should they be needed Last Documented On 1 7:04PM ; [facility] Discussed nutritional needs teach healthy choices including fruits and vegetables Last Documented On 1 3:57PM ; [facility] Patient education about a pr oper diet Last Documented On 1 3:57PM ; [facility] Discussed concerns about exe rcise : promote physical activity Last Documented On 1 3:57PM ; [facility] integrated model of care. [facility] and PCP [...] ~P discussed crisis resources should mood worsen, [facility] provided text hotline number for crisis. P reviewed crisis plan with patient and patient is able to contact positive supports and family when feeling down Last Documented On 1 11:46AM ; [facility] Discussed nutritional needs teach healthy choices including fruits and vegetables Last Documented On 1 2:11PM ; [facility] Patient education about a pr oper diet Last Documented On 1 2:11PM ; [facility] Discussed concerns about exe rcise : promote physical activity Last Documented On 1 2:11PM ; [facility] Work Phone: 1(726) 327-479206-19-2024 Evaluation note Includes: Assessments for all patient encounters Findings Encounter Date [D64.9 - Anemia, unspecified] anemia Med ical Established Patient with Denny Lomeli [employer] 04/10/2024 Last Documented On 4 6:51PM ; [facility] [Z68.43 - Body mass index [B VA] 50.0-59.9, adult] assessment of body mass index Medical Established Patient with Denny Lomeli [employer] 04/10/2024 Last Documented On 4 6:51PM ; [facility] Bipolar affective disorder, current episode depressed, mild Established Patient with Kinga Short LISWS 01/17/2024 Last Documented On 4 5:16PM ; [facility] [facility] Post[facility] Establ ished Patient with Kinga Short LISWS 01/17/2024 Last Documented On 4 5:16PM ; [facility] Undifferentiated attention d eficit disorder Established Patient with Kinga Short LISWS 01/17/2024 Last Documented On 4 5:16PM ; [facility] Visit for: screening for disorder BH Est ablished Patient with Kinga Bourgeois LISWS 01/17/2024 Last Documented On 4 5:16PM ; [facility] [Z68.43 - Body mass index [B VA] 50.0-59.9, adult] assessment of body mass index Medical Established Patient with Denny Lomeli [employer] 01/17/2024 Last Documented On 4 7:50PM ; [facility] Attention-deficit hyperactivity disorder Medical Established Patient with Denny Lomeli [employer] 01/17/2024 Last Documented On 4 7:50PM ; [facility] Diabetes Risk Test Score was three score 01/17/2024 Medical Established Patient with Denny Lomeli [employer] 01/17/2024 Last Documented On 4 7:50PM ; [facility] Visit for: screening for STD Medical Est ablished Patient with Denny Lomeli [employer] 01/17/2024 Last Documented On 4 7:50PM ; [facility] [Z68.32 - Body mass index [B VA] 32.0-32.9, adult] assessment of body mass index Medical Established Patient with Denny Lomeli [employer] 05/10/2023 Last Documented On 3 6:01PM ; [facility] Borderline personality disorder Medical Established Patient with Denny Lomeli [employer] 05/10/2023 Last Documented On 3 6:01PM ; [facility] Screening for diabetes mellitus Medical Established Patient with Denny Lomeli [employer] 05/10/2023 Last Documented On 3 6:01PM ; [facility] Assessment of body mass index Medical Es tablished Patient with Denny Lomeli [employer] 08/12/2022 Last Documented On 2 2:45PM ; [facility] Bipolar affective disorder, current episode manic [facility] with Belkis Velarde [facility] 06/16/2022 Last Documented On 2 3:22PM ; [facility] Bipolar affective disorder, current episode manic BH Established Patient with Belkis Syd [facility] 06/15/2022 Last Documented On 2 2:28PM ; [facility] Bipolar affective disorder, current episode depressed, severe with psychosis [facility] with Belkis Velarde [facility] 06/15/2022 Last Documented On 2 3:29PM ; [facility] Assessment of body mass inde x [Body mass index [BMI] 50.0-59.9, adult] Open Access - Established with Leah Monique [employer] 06/15/2022 Last Documented On 2 9:36AM ; [facility] Bipolar I disorder, most rec ent episode, manic Open Access - Established with Leah Monique [employer] 06/15/2022 Last Documented On 2 9:36AM ; [facility] Post-traumatic stress disorder Establ ished Patient with Belkisdionna Velarde [facility] 06/08/2022 Last Documented On 2 3:20PM ; [facility] No cough Medical Established Patient with Denny Armani [employer] 06/08/2022 Last Documented On 2 4:04PM ; [facility] Z68.43 - Body mass index [BM I] 50.0-59.9, adult Medical Established Patient with Denny Armani [employer] 06/08/2022 Last Documented On 2 4:04PM ; [facility] Borderline personality disor kyree Pt reported hx of sx/dx Established Patient with Belkis Velarde [facility] 05/27/2022 Last Documented On 2 4:08PM ; [facility] Assessment of body mass inde x [Body mass index [BMI] 50.0-59.9, adult] Open Access - Established with Leah Monique [employer] 05/27/2022 Last Documented On 2 7:41PM ; [facility] Diabetes Risk Test Score was three score 05/27/2022 Open Access - Established with Leah Monique [employer] 05/27/2022 Last Documented On 2 7:41PM ; [facility] Bipolar I disorder, most rec ent episode, manic Established Patient with Eufemia Mcneil [facility] 07/15/2021 Last Documented On 1 1:35AM ; [facility] Borderline personality disorder Estab lished Patient with Eufemia Mcneil [facility] 07/15/2021 Last Documented On 1 1:35AM ; [facility] Post-traumatic stress disorder Establ ished Patient with Eufemia Mcneil [facility] 07/15/2021 Last Documented On 1 1:35AM ; [facility] Assessment of visit for: lloyd strange for human immunodeficiency virus Medical Established Patient with Denny Armani [employer] 07/15/2021 Last Documented On 1 2:56PM ; [facility] Nicotine dependence Medical Established Patient with Denny Armani [employer] 07/15/2021 Last Documented On 1 2:56PM ; [facility] Tachycardia Medical Established Patient with Denny Armani [employer] 07/15/2021 Last Documented On 1 2:56PM ; [facility] Z68.43 - Body mass index [BM I] 50.0-59.9, adult Medical Established Patient with Denny Armani [employer] 07/15/2021 Last Documented On 1 2:56PM ; [facility] Bipolar I disorder, most rec ent episode, manic Established Patient with Kinga Short LISWS 06/17/2021 Last Documented On 1 10:17AM ; [facility] Borderline personality disor kyree per patient reported history Established Patient with Kinga Short LISWS 06/17/2021 Last Documented On 1 10:17AM ; [facility] Nicotine dependence Established Patient with Kinga Short LISWS 06/17/2021 Last Documented On 1 10:17AM ; [facility] Post-traumatic stress disorder Establ ished Patient with Kinga Short LISWS 06/17/2021 Last Documented On 1 10:17AM ; [facility] Body mass index Medical Established Patient with Denny Armani [employer] 06/17/2021 Last Documented On 1 5:23PM ; [facility] Morbid obesity Medical Established Patient with Denny Armani [employer] 06/17/2021 Last Documented On 1 5:23PM ; [facility] Nicotine dependence uncomplicated Medica l Established Patient with Denny Armani [employer] 06/17/2021 Last Documented On 1 5:23PM ; [facility] Z68.42 - Body mass index [BM I] 45.0-49.9, adult Medical Established Patient with Denny Armani [employer] 06/17/2021 Last Documented On 1 5:23PM ; [facility] 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 Last Documented On 1 7:49AM ; [facility] Mood disorders, NOS per blaze ent reported history Established Patient with Kinga Short LISWS 04/23/2021 Last Documented On 1 7:15PM ; [facility] Post-traumatic stress disorder Establ ished Patient with Kinga Short LISWS 04/23/2021 Last Documented On 1 7:15PM ; [facility] Morbid obesity Medical Established Patient with Denny Armani [employer] 04/23/2021 Last Documented On 1 12:31PM ; [facility] Otitis externa Medical Established Patient with Denny Armani [employer] 04/23/2021 Last Documented On 1 12:31PM ; [facility] Z68.42 - Body mass index [BM I] 45.0-49.9, adult Medical Established Patient with Denny Armani [employer] 04/23/2021 Last Documented On 1 12:31PM ; [facility] Post-traumatic stress disorder Establ ished Patient with Kinga Short LISWS 04/01/2021 Last Documented On 1 10:05PM ; [facility] Morbid obesity Medical Established Patient with Denny Armani [employer] 04/01/2021 Last Documented On 1 4:45PM ; [facility] Z68.42 - Body mass index [BM I] 45.0-49.9, adult Medical Established Patient with Denny Armani [employer] 04/01/2021 Last Documented On 1 4:45PM ; [facility] Post-traumatic stress disorder Establ ished Patient with Kinga Short LISWS 03/17/2021 Last Documented On 1 11:59AM ; [facility] Assessment of visit for: lloyd strange for human immunodeficiency virus Medical New Patient with Denny Lomeli [employer] 03/17/2021 Last Documented On 1 4:06PM ; [facility] Diabetes Risk Test Score was one score 03/17/2021 Medical New Patient with Denny Lomeli [employer] 03/17/2021 Last Documented On 1 4:06PM ; [facility] Hypertension Medical New Patient with Denny Maryjo doherty [employer] 03/17/2021 Last Documented On 1 4:06PM ; [facility] Morbid obesity Medical New Patient with Denny C chas [employer] 03/17/2021 Last Documented On 1 4:06PM ; [facility] Post-traumatic stress disorder Medical New Patie nt with Denny Lomeli [employer] 03/17/2021 Last Documented On 1 4:06PM ; [facility] Z68.42 - Body mass index [BM I] 45.0-49.9, adult Medical New Patient with Denny Lomeli [employer] 03/17/2021 Last Documented On 1 4:06PM ; [facility] Work Phone: 1(161) 771-674206-19-2024 Evaluation note Includes: Assessments for all patient encounters Findings Encounter Date Attention-deficit hyperactiv ity disorder Established Patient with Kinga Short LISWS 04/10/2024 Last Documented On 4 10:10AM ; [facility] Bipolar I disorder, most rec ent episode, depressed - mild Established Patient with Kinga Short LISWS 04/10/2024 Last Documented On 4 10:10AM ; [facility] Post-traumatic stress disorder Establ ished Patient with Kinga Short LISWS 04/10/2024 Last Documented On 4 10:10AM ; [facility] [D64.9 - Anemia, unspecified] anemia Med ical Established Patient with Dennyartem Lomeli [employer] 04/10/2024 Last Documented On 4 6:51PM ; [facility] [Z68.43 - Body mass index [B VA] 50.0-59.9, adult] assessment of body mass index Medical Established Patient with Denny Lomeli [employer] 04/10/2024 Last Documented On 4 6:51PM ; [facility] Bipolar affective disorder, current episode depressed, mild Established Patient with Kinga Short LISWS 01/17/2024 Last Documented On 4 5:16PM ; [facility] Post-traumatic stress disorder BH Establ ished Patient with Kinga Short LISWS 01/17/2024 Last Documented On 4 5:16PM ; [facility] Undifferentiated attention d eficit disorder Established Patient with Kinga Short LISWS 01/17/2024 Last Documented On 4 5:16PM ; [facility] Visit for: screening for disorder BH Est ablished [facility]24 Last Documented On 4 5:16PM ; [facility] [Z68.43 - Body mass index [B VA] 50.0-59.9, adult] assessment of body mass index Medical Established Patient with Denny Lomeli [employer] 01/17/2024 Last Documented On 4 7:50PM ; [facility] Attention-deficit hyperactivity disorder Medical Established Patient with Denny Lomeli [employer] 01/17/2024 Last Documented On 4 7:50PM ; [facility] Diabetes Risk Test Score was three score 01/17/2024 Medical Established Patient with Denny Lomeli [employer] 01/17/2024 Last Documented On 4 7:50PM ; [facility] Visit for: screening for STD Medical Est ablished Patient with Denny Lomeli [employer] 01/17/2024 Last Documented On 4 7:50PM ; [facility] [Z68.32 - Body mass index [B VA] 32.0-32.9, adult] assessment of body mass index Medical Established Patient with Denny Lomeli [employer] 05/10/2023 Last Documented On 3 6:01PM ; [facility] Borderline personality disorder Medical Established Patient with Denny Armani [employer] 05/10/2023 Last Documented On 3 6:01PM ; [facility] Screening for diabetes mellitus Medical Established Patient with Denny Armani [employer] 05/10/2023 Last Documented On 3 6:01PM ; [facility] Assessment of body mass index Medical Es tablished Patient with Denny Armani [employer] 08/12/2022 Last Documented On 2 2:45PM ; [facility] Bipolar affective disorder, current episode manic [facility]behavioral Health with Belkis Velarde [facility] 06/16/2022 Last Documented On 2 3:22PM ; [facility] Bipolar affective disorder, current episode manic Established Patient with Belkis Velarde [facility] 06/15/2022 Last Documented On 2 2:28PM ; [facility] Bipolar affective disorder, current episode depressed, severe with psychosis [facility] with Belkis Velarde [facility] 06/15/2022 Last Documented On 2 3:29PM ; [facility] Assessment of body mass inde x [Body mass index [BMI] 50.0-59.9, adult] Open Access - Established with Leah Monique [employer] 06/15/2022 Last Documented On 2 9:36AM ; [facility] Bipolar I disorder, most rec ent episode, manic Open Access - Established with Leah Monique [employer] 06/15/2022 Last Documented On 2 9:36AM ; [facility] Post-traumatic stress disorder BH Establ ished Patient with Belkis Velarde [facility] 06/08/2022 Last Documented On 2 3:20PM ; [facility] No cough Medical Established Patient with Denny Armani [employer] 06/08/2022 Last Documented On 2 4:04PM ; [facility] Z68.43 - Body mass index [BM I] 50.0-59.9, adult Medical Established Patient with Denny Armani [employer] 06/08/2022 Last Documented On 2 4:04PM ; [facility] Borderline personality disor kyree Pt reported hx of sx/dx Established Patient with [facility]is [facility]arde [facility] 05/27/2022 Last Documented On 2 4:08PM ; [facility] Assessment of body mass inde x [Body mass index [BMI] 50.0-59.9, adult] Open Access - Established with Leah Monique [employer] 05/27/2022 Last Documented On 2 7:41PM ; [facility] Diabetes Risk Test Score was three score 05/27/2022 Open Access - Established with Leah Monique [employer] 05/27/2022 Last Documented On 2 7:41PM ; [facility] Bipolar I disorder, most rec ent episode, manic Established Patient with Eufemia Mcneil [facility] 07/15/2021 Last Documented On 1 1:35AM ; [facility] Borderline personality disorder Estab lished Patient with Eufemia Mcneil [facility] 07/15/2021 Last Documented On 1 1:35AM ; [facility] Post-traumatic stress disorder Establ ished Patient with Eufemia Mcneil [facility] 07/15/2021 Last Documented On 1 1:35AM ; [facility] Assessment of visit for: lloyd mcgillning for human immunodeficiency virus Medical Established Patient with Denny Armani [employer] 07/15/2021 Last Documented On 1 2:56PM ; [facility] Nicotine dependence Medical Established Patient with Denny Armani [facility] 07/15/2021 Last Documented On 1 2:56PM ; [facility] Tachycardia Medical Established Patient with Denny Armani [employer] 07/15/2021 Last Documented On 1 2:56PM ; [facility] Z68.43 - Body mass index [BM I] 50.0-59.9, adult Medical Established Patient with Denny Armani [employer] 07/15/2021 Last Documented On 1 2:56PM ; [facility] Bipolar I disorder, most rec ent episode, manic Established Patient with Kinga Short LISWS 06/17/2021 Last Documented On 1 10:17AM ; [facility] Borderline personality disor kyree per patient reported history Established Patient with Kinga Short LISWS 06/17/2021 Last Documented On 1 10:17AM ; [facility] Nicotine dependence BH Established Patient with Kinga Short LISWS 06/17/2021 Last Documented On 1 10:17AM ; [facility] Post-traumatic stress disorder Establ ished Patient with Kinga Short LISWS 06/17/2021 Last Documented On 1 10:17AM ; [facility] Body mass index Medical Established Patient with Denny Armani [employer] 06/17/2021 Last Documented On 1 5:23PM ; [facility] Morbid obesity Medical Established Patient with Denny Armani [employer] 06/17/2021 Last Documented On 1 5:23PM ; [facility] Nicotine dependence uncomplicated Medica l Established Patient with Denny Armani [employer] 06/17/2021 Last Documented On 1 5:23PM ; [facility] Z68.42 - Body mass index [BM I] 45.0-49.9, adult Medical Established Patient with Denny Armani [employer] 06/17/2021 Last Documented On 1 5:23PM ; [facility] 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 Last Documented On 1 7:49AM ; [facility] Mood disorders, NOS per blaze ent reported history Established Patient with Kinga Short LISWS 04/23/2021 Last Documented On 1 7:15PM ; [facility] Post-traumatic stress disorder Establ ished Patient with Kinga Short LISWS 04/23/2021 Last Documented On 1 7:15PM ; [facility] Morbid obesity Medical Established Patient with Denny Armani [employer] 04/23/2021 Last Documented On 1 12:31PM ; [facility] Otitis externa Medical Established Patient with Denny Armani [employer] 04/23/2021 Last Documented On 1 12:31PM ; [facility] Z68.42 - Body mass index [BM I] 45.0-49.9, adult Medical Established Patient with Denny Armani [employer] 04/23/2021 Last Documented On 1 12:31PM ; [facility] Post-traumatic stress disorder Establ ished Patient with Kinga Short LISWS 04/01/2021 Last Documented On 1 10:05PM ; [facility] Morbid obesity Medical Established Patient with Denny Armani [employer] 04/01/2021 Last Documented On 1 4:45PM ; [facility] Z68.42 - Body mass index [BM I] 45.0-49.9, adult Medical Established Patient with Denny Armani [employer] 04/01/2021 Last Documented On 1 4:45PM ; [facility] Post-traumatic stress disorder Establ ished Patient with Kinga Short LISWS 03/17/2021 Last Documented On 1 11:59AM ; [facility] Assessment of visit for: lloyd mcgillning for human immunodeficiency virus Medical New Patient with Denny Armani [employer] 03/17/2021 Last Documented On 1 4:06PM ; [facility] Diabetes Risk Test Score was one score 03/17/2021 Medical New Patient with Denny Armani [employer] 03/17/2021 Last Documented On 1 4:06PM ; [facility] Hypertension Medical New Patient with Denny C chas [employer] 03/17/2021 Last Documented On 1 4:06PM ; [facility] Morbid obesity Medical New Patient with Denny C chas [employer] 03/17/2021 Last Documented On 1 4:06PM ; [facility] Post-traumatic stress disorder Medical New Patie nt with Denny Armani [employer] 03/17/2021 Last Documented On 1 4:06PM ; [facility] Z68.42 - Body mass index [BM I] 45.0-49.9, adult Medical New Patient with Denny Armani [employer] 03/17/2021 Last Documented On 1 4:06PM ; [facility] Work Phone: [phone]) 867-859506-19-2024 History general Narrative - Reported Includes: Medical History in patient's chart Description Last Updated POTS 04/10/2024 Last Documented On 4 6:51PM ; [facility] 0 previous live (s) 01/17/2024 Last Documented On 4 7:50PM ; [facility] Previously 1 time(s) 01/17/2024 Last Documented On 4 7:50PM ; [facility] Recent immunization for flu 01/17/2024 Last Documented On 4 7:50PM ; [facility] Has sex without a condom 06/08/2022 Last Documented On 2 4:04PM ; [facility] Not planning to have a baby in the next 12 months 06/08/2022 Last Documented On 2 4:04PM ; [facility] sexually transmitted infection status known 06/08/2022 Last Documented On 2 4:04PM ; [facility] No previous hospitalizations 06/08/2022 Last Documented On 2 4:04PM ; [facility] Chronic illness 05/17/2021 Last Documented On 1 7:49AM ; [facility] Exposure to COVID-19 04/23/2021 Last Documented On 1 12:31PM ; [facility] History of gynecologic disorder 03/17/20 21 Last Documented On 1 4:06PM ; [facility] History of Polycystic Ovarian Syndrome ( PCOS) 03/17/2021 Last Documented On 1 4:06PM ; [facility] History of anxiety disorder NOS 03/17/20 21 Last Documented On 1 4:06PM ; [facility] History of migraine headache 03/17/2021 Last Documented On 1 4:06PM ; [facility] History of psychiatric disorders biopola r disorder 03/17/2021 Last Documented On 1 4:06PM ; [facility] Work Phone: 1([phone]) 698-146706-19-2024 History general Narrative - Reported Includes: Medical History in patient's chart Description Last Updated POTS 04/10/2024 Last Documented On 4 6:51PM ; [facility] 0 previous live (s) 01/17/2024 Last Documented On 4 7:50PM ; [facility] Previously 1 time(s) 01/17/2024 Last Documented On 4 7:50PM ; [facility] Recent immunization for flu 01/17/2024 Last Documented On 4 7:50PM ; [facility] Has sex without a condom 06/08/2022 Last Documented On 2 4:04PM ; [facility] Not planning to have a baby in the next 12 months 06/08/2022 Last Documented On 2 4:04PM ; [facility] sexually transmitted infection status known 06/08/2022 Last Documented On 2 4:04PM ; [facility] No previous hospitalizations 06/08/2022 Last Documented On 2 4:04PM ; [facility] Chronic illness 05/17/2021 Last Documented On 1 7:49AM ; [facility] Exposure to COVID-19 04/23/2021 Last Documented On 1 12:31PM ; [facility] History of gynecologic disorder 03/17/20 21 Last Documented On 1 4:06PM ; [facility] History of Polycystic Ovarian Syndrome ( PCOS) 03/17/2021 Last Documented On 1 4:06PM ; [facility] History of anxiety disorder NOS 03/17/20 21 Last Documented On 1 4:06PM ; [facility] History of migraine headache 03/17/2021 Last Documented On 1 4:06PM ; [facility] History of psychiatric disorders biopola r disorder 03/17/2021 Last Documented On 1 4:06PM ; [facility] Work Phone: [phone]) [phone] History general Narrative - Reported Includes: Medical History in patient's chart Description Last Updated POTS 04/10/2024 Last Documented On 4 6:51PM ; [facility] 0 previous live (s) 01/17/2024 Last Documented On 4 7:50PM ; [facility] Previously 1 time(s) 01/17/2024 Last Documented On 4 7:50PM ; [facility] Recent immunization for flu 01/17/2024 Last Documented On 4 7:50PM ; [facility] Has sex without a condom 06/08/2022 Last Documented On 2 4:04PM ; [facility] Not planning to have a baby in the next 12 months 06/08/2022 Last Documented On 2 4:04PM ; [facility] sexually transmitted infection status known 06/08/2022 Last Documented On 2 4:04PM ; [facility] No previous hospitalizations 06/08/2022 Last Documented On 2 4:04PM ; [facility] Chronic illness 05/17/2021 Last Documented On 1 7:49AM ; [facility] Exposure to COVID-19 04/23/2021 Last Documented On 1 12:31PM ; [facility] History of gynecologic disorder 03/17/20 21 Last Documented On 1 4:06PM ; [facility] History of Polycystic Ovarian Syndrome ( PCOS) 03/17/2021 Last Documented On 1 4:06PM ; [facility] History of anxiety disorder NOS 03/17/20 21 Last Documented On 1 4:06PM ; [facility] History of migraine headache 03/17/2021 Last Documented On 1 4:06PM ; [facility] History of psychiatric disorders biopola r disorder 03/17/2021 Last Documented On 1 4:06PM ; [facility] Work Phone: 1(385) 982-199306-19-2024 History general Narrative - Reported Includes: Medical History in patient's chart Description Last Updated POTS 04/10/2024 Last Documented On 4 6:51PM ; [facility] 0 previous live (s) 01/17/2024 Last Documented On 4 7:50PM ; [facility] Previously 1 time(s) 01/17/2024 Last Documented On 4 7:50PM ; [facility] Recent immunization for flu 01/17/2024 Last Documented On 4 7:50PM ; [facility] Has sex without a condom 06/08/2022 Last Documented On 2 4:04PM ; [facility] Not planning to have a baby in the next 12 months 06/08/2022 Last Documented On 2 4:04PM ; [facility] sexually transmitted infection status known 06/08/2022 Last Documented On 2 4:04PM ; [facility] No previous hospitalizations 06/08/2022 Last Documented On 2 4:04PM ; [facility] Chronic illness 05/17/2021 Last Documented On 1 7:49AM ; [facility] Exposure to COVID-19 04/23/2021 Last Documented On 1 12:31PM ; [facility] History of gynecologic disorder 03/17/20 21 Last Documented On 1 4:06PM ; [facility] History of Polycystic Ovarian Syndrome ( PCOS) 03/17/2021 Last Documented On 1 4:06PM ; [facility] History of anxiety disorder NOS 03/17/20 21 Last Documented On 1 4:06PM ; [facility] History of migraine headache 03/17/2021 Last Documented On 1 4:06PM ; [facility] History of psychiatric disorders biopola r disorder 03/17/2021 Last Documented On 1 4:06PM ; [facility] Work Phone: 1(851) 599-140206-19-2024 Progress note* Progress note Date Encounter Last Documented by 04/10/2024 Medical Established Patient Last documented on 04/10/2024; 6:51 PM, Denny Lomeli CNP; [facility] Active Problems & Conditions - F90.9 [...] has tried to contact Dr. Donato in [place], but has not heard back. Patient provided with phone number for [facility]. Patient here for 2 month med [...] f/u . 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 reports no longer doing counseling r/t [...] BP-Sitting L161/94 mmHg BP Cuff SizeLarge Pulse Rate-Hvvdzax80 bpm Idvqbt40 in Rtrgfj849 lbs Body Mass Index54.6 kg/m2 Body Surface Area2.4 m2 Oxygen Tdfqadfpty40 % - Vitals taken 04/10/2024 04:50 pm BP-Sitting L137/89 mmHg BP Cuff SizeLarge Pulse Rate-Unoqgwi09 bpm Vital Signs: - Systolic blood pressure [...] month med check EndCited # given to [facility] , call prashant triana appt german . labs german to further check on anemia. Care Team - Denny Lomeli CNP Health Reminders - Assess BMI satisfied 04/10/2024. - Assess Tobacco Use satisfied 04/10/2024. - Follow Up Plan BMI Management satisfied 04/10/2024. User Defined 1 Not planning a in the next year. [facility]06-19-2024 Progress note* Progress note Date Encounter Last Documented by 04/10/2024 Established Patient Last docu mented on 04/11/2024; 10:10 AM, Kinga RUDOLPH; [facility] Active Problems & Conditions - F90.9 - Attention-deficit Hyperactivity Disorder - F31.31 - Bipolar I Disorder, Most Recent Episode, Depressed Mild - F43.10 - Post-traumatic Stress Disorder Chief Complaint The Chief Complaint is: [facility] met with patient to follow-up regarding mood [...] of things, or get along? Somewhat difficult. [facility]04-02-2024 Progress note* Progress note Date Encounter Last Documented by 01/23/2024 Chart Update Last documented on 01/30/2024; 9:32 AM, Denny Lomeli CNP; [facility] Active Problems & Conditions - F90.9 [...] MG Oral Tablet AM and PM per [facility] in [place], 30 days, 0 refills - MiraLax 17 [...] 01/17/2024 Care Team - Denny Lomeli CNP [facility]03-27-2024 Evaluation note Includes: Assessments for all patient encounters Findings Encounter Date Bipolar affective disorder, current episode depressed, mild Established Patient with Kinga Short LISWS 01/17/2024 Last Documented On 4 7:46PM ; [facility] Post-traumatic stress disorder Establ ished Patient with Kinga Short LISWS 01/17/2024 Last Documented On 4 7:46PM ; [facility] Undifferentiated attention d eficit disorder Established Patient with Kinga Short LISWS 01/17/2024 Last Documented On 4 7:46PM ; [facility] Visit for: screening for disorder Est ablished Patient with Kinga Short LISWS 01/17/2024 Last Documented On 4 7:46PM ; [facility] [Z68.43 - Body mass index [B VA] 50.0-59.9, adult] assessment of body mass index Medical Established Patient with Denny Lomeli CNP 01/17/2024 Last Documented On 4 7:50PM ; [facility] Attention-deficit hyperactivity disorder Medical Established Patient with Denny oLmeli [employer] 01/17/2024 Last Documented On 4 7:50PM ; [facility] Diabetes Risk Test Score was three score 01/17/2024 Medical Established Patient with Denny Lomeli [employer] 01/17/2024 Last Documented On 4 7:50PM ; [facility] Visit for: screening for STD Medical Est ablished Patient with Denny Lomeli [employer] 01/17/2024 Last Documented On 4 7:50PM ; [facility] [Z68.32 - Body mass index [B VA] 32.0-32.9, adult] assessment of body mass index Medical Established Patient with Denny Lomeli [employer] 05/10/2023 Last Documented On 3 6:01PM ; [facility] Borderline personality disorder Medical Established Patient with Denny Lomeli [employer] 05/10/2023 Last Documented On 3 6:01PM ; [facility] Screening for diabetes mellitus Medical Established Patient with Denny Lomeli [employer] 05/10/2023 Last Documented On 3 6:01PM ; [facility] Assessment of body mass index Medical Es tablished Patient with Denny Lomeli [employer] 08/12/2022 Last Documented On 2 2:45PM ; [facility] Bipolar affective disorder, current episode manic [facility] with [facility]kis [facility] 06/16/2022 Last Documented On 2 3:22PM ; [facility] Bipolar affective disorder, current episode manic Established Patient with Belkisdionna CoffeyVelarde [facility] 06/15/2022 Last Documented On 2 2:28PM ; [facility] Bipolar affective disorder, current episode depressed, severe with psychosis Telebehavioral Health with Belkisdionna Velarde [facility] 06/15/2022 Last Documented On 2 3:29PM ; [facility] Assessment of body mass inde x [Body mass index [BMI] 50.0-59.9, adult] Open Access - Established with Leah Amaya [facility] 06/15/2022 Last Documented On 2 9:36AM ; [facility] Bipolar I disorder, most rec ent episode, manic Open Access - Established with Leah Monique [employer] 06/15/2022 Last Documented On 2 9:36AM ; [facility] Post-traumatic stress disorder Establ ished Patient with Belkisdionna CoffeyVelarde [facility] 06/08/2022 Last Documented On 2 3:20PM ; [facility] No cough Medical Established Patient with Denny Armani [employer] 06/08/2022 Last Documented On 2 4:04PM ; [facility] Z68.43 - Body mass index [BM I] 50.0-59.9, adult Medical Established Patient with Denny Armani [employer] 06/08/2022 Last Documented On 2 4:04PM ; [facility] Borderline personality disor kyree Pt reported hx of sx/dx Established Patient with Belkisdionna CoffeyVelarde [facility] 05/27/2022 Last Documented On 2 4:08PM ; [facility] Assessment of body mass inde x [Body mass index [BMI] 50.0-59.9, adult] Open Access - Established with Laeh Amaya CNP 05/27/2022 Last Documented On 2 7:41PM ; [facility] Diabetes Risk Test Score was three score 05/27/2022 Open Access - Established with Leah Amaya CNP 05/27/2022 Last Documented On 2 7:41PM ; [facility] Bipolar I disorder, most rec ent episode, manic BH Established Patient with Eufeima Mcneil [facility] 07/15/2021 Last Documented On 1 1:35AM ; [facility] Borderline personality disorder Estab lished Patient with Eufemia Mcneil [facility] 07/15/2021 Last Documented On 1 1:35AM ; [facility] Post-traumatic stress disorder Establ ished Patient with Eufemia Mcneil [facility] 07/15/2021 Last Documented On 1 1:35AM ; [facility] Assessment of visit for: lloyd mcgillning for human immunodeficiency virus Medical Established Patient with Denny Armani [employer] 07/15/2021 Last Documented On 1 2:56PM ; [facility] Nicotine dependence Medical Established Patient with Denny Armani [employer] 07/15/2021 Last Documented On 1 2:56PM ; [facility] Tachycardia Medical Established Patient with Denny Armani [employer] 07/15/2021 Last Documented On 1 2:56PM ; [facility] Z68.43 - Body mass index [BM I] 50.0-59.9, adult Medical Established Patient with Denny Armani [employer] 07/15/2021 Last Documented On 1 2:56PM ; [facility] Bipolar I disorder, most rec ent episode, manic Established Patient with Kinga Short LISWS 06/17/2021 Last Documented On 1 10:17AM ; [facility] Borderline personality disor kyree per patient reported history Established Patient with Kinga Short LISWS 06/17/2021 Last Documented On 1 10:17AM ; [facility] Nicotine dependence Established Patient with Kinga Short LISWS 06/17/2021 Last Documented On 1 10:17AM ; [facility] Post-traumatic stress disorder Establ ished Patient with Kinga Short LISWS 06/17/2021 Last Documented On 1 10:17AM ; [facility] Body mass index Medical Established Patient with Denny Armani [employer] 06/17/2021 Last Documented On 1 5:23PM ; [facility] Morbid obesity Medical Established Patient with Denny Armani [employer] 06/17/2021 Last Documented On 1 5:23PM ; [facility] Nicotine dependence uncomplicated Medica l Established Patient with Denny Armani [employer] 06/17/2021 Last Documented On 1 5:23PM ; [facility] Z68.42 - Body mass index [BM I] 45.0-49.9, adult Medical Established Patient with Denny Armani [employer] 06/17/2021 Last Documented On 1 5:23PM ; [facility] 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 Last Documented On 1 7:49AM ; [facility] Mood disorders, NOS per blaze ent reported history Established Patient with Kinga Short LISWS 04/23/2021 Last Documented On 1 7:15PM ; [facility] Post-traumatic stress disorder Establ ished Patient with Kinga Short LISWS 04/23/2021 Last Documented On 1 7:15PM ; [facility] Morbid obesity Medical Established Patient with Denny Armani [employer] 04/23/2021 Last Documented On 1 12:31PM ; [facility] Otitis externa Medical Established Patient with Denny Armani [employer] 04/23/2021 Last Documented On 1 12:31PM ; [facility] Z68.42 - Body mass index [BM I] 45.0-49.9, adult Medical Established Patient with Denny Armani [employer] 04/23/2021 Last Documented On 1 12:31PM ; [facility] Post-traumatic stress disorder Establ ished Patient with Kinga Short LISWS 04/01/2021 Last Documented On 1 10:05PM ; [facility] Morbid obesity Medical Established Patient with Denny Armani [employer] 04/01/2021 Last Documented On 1 4:45PM ; [facility] Z68.42 - Body mass index [BM I] 45.0-49.9, adult Medical Established Patient with Denny Armani [employer] 04/01/2021 Last Documented On 1 4:45PM ; [facility] Post-traumatic stress disorder Establ ished Patient with Kinga Short LISWS 03/17/2021 Last Documented On 1 11:59AM ; [facility] Assessment of visit for: scr eening for human immunodeficiency virus Medical New Patient with Dennyartem Lomeli [employer] 03/17/2021 Last Documented On 1 4:06PM ; [facility] Diabetes Risk Test Score was one score 03/17/2021 Medical New Patient with Denny Lomeli [employer] 03/17/2021 Last Documented On 1 4:06PM ; [facility] Hypertension Medical New Patient with Denny doherty [employer] 03/17/2021 Last Documented On 1 4:06PM ; [facility] Morbid obesity Medical New Patient with Dennyartem doherty [employer] 03/17/2021 Last Documented On 1 4:06PM ; [facility] Post-traumatic stress disorder Medical New Patie nt with Dennyartem Landonen [employer] 03/17/2021 Last Documented On 1 4:06PM ; [facility] Z68.42 - Body mass index [BM I] 45.0-49.9, adult Medical New Patient with Denny Lomeli [employer] 03/17/2021 Last Documented On 1 4:06PM ; [facility] Work Phone: 1(582) 678-297403-27-2024 Evaluation note Includes: Assessments for all patient encounters Findings Encounter Date Bipolar affective disorder, current episode depressed, mild Established Patient with Kinga Short LISWS 01/17/2024 Last Documented On 4 5:16PM ; [facility] Post-traumatic stress disorder BH Establ ished Patient with Kinga Short LISWS 01/17/2024 Last Documented On 4 5:16PM ; [facility] Undifferentiated attention d eficit disorder Established Patient with Kinga Short LISWS 01/17/2024 Last Documented On 4 5:16PM ; [facility] Visit for: screening for disorder BH Est ablished Patient with Kinga Short LISWS 01/17/2024 Last Documented On 4 5:16PM ; [facility] [Z68.43 - Body mass index [B VA] 50.0-59.9, adult] assessment of body mass index Medical Established Patient with Dennyartem Lomeli [employer] 01/17/2024 Last Documented On 4 7:50PM ; [facility] Attention-deficit hyperactivity disorder Medical Established Patient with Denny Armani [employer] 01/17/2024 Last Documented On 4 7:50PM ; [facility] Diabetes Risk Test Score was three score 01/17/2024 Medical Established Patient with Denny Lomeli [employer] 01/17/2024 Last Documented On 4 7:50PM ; [facility] Visit for: screening for STD Medical Est ablished Patient with Denny Lomeli [employer] 01/17/2024 Last Documented On 4 7:50PM ; [facility] [Z68.32 - Body mass index [B VA] 32.0-32.9, adult] assessment of body mass index Medical Established Patient with Denny Lomeli [employer] 05/10/2023 Last Documented On 3 6:01PM ; [facility] Borderline personality disorder Medical Established Patient with Denny Lomeli [employer] 05/10/2023 Last Documented On 3 6:01PM ; [facility] Screening for diabetes mellitus Medical Established Patient with Denny Lomeli [employer] 05/10/2023 Last Documented On 3 6:01PM ; [facility] Assessment of body mass index Medical Es tablished Patient with Denny Lomeli [employer] 08/12/2022 Last Documented On 2 2:45PM ; [facility] Bipolar affective disorder, current episode manic Telebehavioral Health with Belkisdionna CoffeyVelarde [facility] 06/16/2022 Last Documented On 2 3:22PM ; [facility] Bipolar affective disorder, current episode manic Established Patient with Belkis Velarde [facility] 06/15/2022 Last Documented On 2 2:28PM ; [facility] Bipolar affective disorder, current episode depressed, severe with psychosis Telebehavioral Health with Belkis Velarde [facility] 06/15/2022 Last Documented On 2 3:29PM ; [facility] Assessment of body mass inde x [Body mass index [BMI] 50.0-59.9, adult] Open Access - Established with Leah Amaya [employer] 06/15/2022 Last Documented On 2 9:36AM ; [facility] Bipolar I disorder, most rec ent episode, manic Open Access - Established with Leah Monique [employer] 06/15/2022 Last Documented On 2 9:36AM ; [facility] Post-traumatic stress disorder Establ ished Patient with Belkis Velarde [facility] 06/08/2022 Last Documented On 2 3:20PM ; [facility] No cough Medical Established Patient with Dennyartem Lomeli [employer] 06/08/2022 Last Documented On 2 4:04PM ; [facility] Z68.43 - Body mass index [BM I] 50.0-59.9, adult Medical Established Patient with Denny Lomeli [employer] 06/08/2022 Last Documented On 2 4:04PM ; [facility] Borderline personality disor kyree Pt reported hx of sx/dx Established Patient with Belkisdionna Velarde [facility] 05/27/2022 Last Documented On 2 4:08PM ; [facility] Assessment of body mass inde x [Body mass index [BMI] 50.0-59.9, adult] Open Access - Established with Leah Monique [employer] 05/27/2022 Last Documented On 2 7:41PM ; [facility] Diabetes Risk Test Score was three score 05/27/2022 Open Access - Established with Leah Monique [employer] 05/27/2022 Last Documented On 2 7:41PM ; [facility] Bipolar I disorder, most rec ent episode, manic Established Patient with Eufemia Mcneil [facility] 07/15/2021 Last Documented On 1 1:35AM ; [facility] Borderline personality disorder Estab lished Patient with Eufemia Mcneil [facility] 07/15/2021 Last Documented On 1 1:35AM ; [facility] Post-traumatic stress disorder Establ ished Patient with Eufemia Mcneil [facility] 07/15/2021 Last Documented On 1 1:35AM ; [facility] Assessment of visit for: scr eening for human immunodeficiency virus Medical Established Patient with Dennyartem Lomeli [employer] 07/15/2021 Last Documented On 1 2:56PM ; [facility] Nicotine dependence Medical Established Patient with Denny Armani [employer] 07/15/2021 Last Documented On 1 2:56PM ; [facility] Tachycardia Medical Established Patient with Denny Armani [employer] 07/15/2021 Last Documented On 1 2:56PM ; [facility] Z68.43 - Body mass index [BM I] 50.0-59.9, adult Medical Established Patient with Denny Armani [employer] 07/15/2021 Last Documented On 1 2:56PM ; [facility] Bipolar I disorder, most rec ent episode, manic Established Patient with Kinga Short LISWS 06/17/2021 Last Documented On 1 10:17AM ; [facility] Borderline personality disor kyree per patient reported history Established Patient with Kinga Short LISWS 06/17/2021 Last Documented On 1 10:17AM ; [facility] Nicotine dependence Established Patient with Kinga Short LISWS 06/17/2021 Last Documented On 1 10:17AM ; [facility] Post-traumatic stress disorder Establ ished Patient with Kinga Short LISWS 06/17/2021 Last Documented On 1 10:17AM ; [facility] Body mass index Medical Established Patient with Denny Armani [employer] 06/17/2021 Last Documented On 1 5:23PM ; [facility] Morbid obesity Medical Established Patient with Denny Armani [employer] 06/17/2021 Last Documented On 1 5:23PM ; [facility] Nicotine dependence uncomplicated Medica l Established Patient with Denny Armani [employer] 06/17/2021 Last Documented On 1 5:23PM ; [facility] Z68.42 - Body mass index [BM I] 45.0-49.9, adult Medical Established Patient with Denny Armani [employer] 06/17/2021 Last Documented On 1 5:23PM ; [facility] 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 Last Documented On 1 7:49AM ; [facility] Mood disorders, NOS per blaze ent reported history Established Patient with Kinga Short LISWS 04/23/2021 Last Documented On 1 7:15PM ; [facility] Post-traumatic stress disorder Establ ished Patient with Kinga Short LISWS 04/23/2021 Last Documented On 1 7:15PM ; [facility] Morbid obesity Medical Established Patient with Denny Armani [employer] 04/23/2021 Last Documented On 1 12:31PM ; [facility] Otitis externa Medical Established Patient with Denny Armani [employer] 04/23/2021 Last Documented On 1 12:31PM ; [facility] Z68.42 - Body mass index [BM I] 45.0-49.9, adult Medical Established Patient with Denny Armani [employer] 04/23/2021 Last Documented On 1 12:31PM ; [facility] Post-traumatic stress disorder Establ ished Patient with Kinga Short LISWS 04/01/2021 Last Documented On 1 10:05PM ; [facility] Morbid obesity Medical Established Patient with Denny Armani [employer] 04/01/2021 Last Documented On 1 4:45PM ; [facility] Z68.42 - Body mass index [BM I] 45.0-49.9, adult Medical Established Patient with Dennyartem Lomeli [employer] 04/01/2021 Last Documented On 1 4:45PM ; [facility] Post-traumatic stress disorder Establ ished Patient with Kinga Short LISWS 03/17/2021 Last Documented On 1 11:59AM ; [facility] Assessment of visit for: scr eening for human immunodeficiency virus Medical New Patient with Dennyartem Lomeli [employer] 03/17/2021 Last Documented On 1 4:06PM ; [facility] Diabetes Risk Test Score was one score 03/17/2021 Medical New Patient with Denny Lomeli [employer] 03/17/2021 Last Documented On 1 4:06PM ; [facility] Hypertension Medical New Patient with Dennyartem doherty [employer] 03/17/2021 Last Documented On 1 4:06PM ; [facility] Morbid obesity Medical New Patient with Dennyartem doherty [employer] 03/17/2021 Last Documented On 1 4:06PM ; [facility] Post-traumatic stress disorder Medical New Patie nt with Dennyartem Lomeli [employer] 03/17/2021 Last Documented On 1 4:06PM ; [facility] Z68.42 - Body mass index [BM I] 45.0-49.9, adult Medical New Patient with Denny Lomeli [employer] 03/17/2021 Last Documented On 1 4:06PM ; [facility] Work Phone: 1(239) 876-878303-27-2024 Evaluation note Includes: Assessments for all patient encounters Findings Encounter Date Bipolar affective disorder, current episode depressed, mild Established Patient with Kinga Short LISWS 01/17/2024 Last Documented On 4 5:16PM ; [facility] Post-traumatic stress disorder Establ ished Patient with Kinga Short LISWS 01/17/2024 Last Documented On 4 5:16PM ; [facility] Undifferentiated attention d eficit disorder Established Patient with Kinga Short LISWS 01/17/2024 Last Documented On 4 5:16PM ; [facility] Visit for: screening for disorder Est ablished Patient with Kinga Short LISWS 01/17/2024 Last Documented On 4 5:16PM ; [facility] [Z68.43 - Body mass index [B VA] 50.0-59.9, adult] assessment of body mass index Medical Established Patient with Denny Lomeli [employer] 01/17/2024 Last Documented On 4 7:50PM ; [facility] Attention-deficit hyperactivity disorder Medical Established Patient with Denny Armani [employer] 01/17/2024 Last Documented On 4 7:50PM ; [facility] Diabetes Risk Test Score was three score 01/17/2024 Medical Established Patient with Dennyartem Lomeli [employer] 01/17/2024 Last Documented On 4 7:50PM ; [facility] Visit for: screening for STD Medical Est ablished Patient with Denny Lomeli [employer] 01/17/2024 Last Documented On 4 7:50PM ; [facility] [Z68.32 - Body mass index [B VA] 32.0-32.9, adult] assessment of body mass index Medical Established Patient with Denny Lomeli [employer] 05/10/2023 Last Documented On 3 6:01PM ; [facility] Borderline personality disorder Medical Established Patient with Denny Lomeli [employer] 05/10/2023 Last Documented On 3 6:01PM ; [facility] Screening for diabetes mellitus Medical Established Patient with Denny Lomeli [employer] 05/10/2023 Last Documented On 3 6:01PM ; [facility] Assessment of body mass index Medical Es tablished Patient with Denny Lomeli [employer] 08/12/2022 Last Documented On 2 2:45PM ; [facility] Bipolar affective disorder, current episode manic Telebehavioral Health with Belkis Velarde [facility] 06/16/2022 Last Documented On 2 3:22PM ; [facility] Bipolar affective disorder, current episode manic Established Patient with Belkis Velarde [facility] 06/15/2022 Last Documented On 2 2:28PM ; [facility] Bipolar affective disorder, current episode depressed, severe with psychosis [facility] with Belkis Velarde [facility] 06/15/2022 Last Documented On 2 3:29PM ; [facility] Assessment of body mass inde x [Body mass index [BMI] 50.0-59.9, adult] Open Access - Established with Leah Monique [employer] 06/15/2022 Last Documented On 2 9:36AM ; [facility] Bipolar I disorder, most rec ent episode, manic Open Access - Established with Leah Monique [employer] 06/15/2022 Last Documented On 2 9:36AM ; [facility] Post-traumatic stress disorder Establ ished Patient with Belkis Velarde [facility] 06/08/2022 Last Documented On 2 3:20PM ; [facility] No cough Medical Established Patient with Denny Lomeli [employer] 06/08/2022 Last Documented On 2 4:04PM ; [facility] Z68.43 - Body mass index [BM I] 50.0-59.9, adult Medical Established Patient with Denny Lomeli [employer] 06/08/2022 Last Documented On 2 4:04PM ; [facility] Borderline personality disor kyree Pt reported hx of sx/dx Established Patient with Belkis Velarde [facility] 05/27/2022 Last Documented On 2 4:08PM ; [facility] Assessment of body mass inde x [Body mass index [BMI] 50.0-59.9, adult] Open Access - Established with Leah Monique [employer] 05/27/2022 Last Documented On 2 7:41PM ; [facility] Diabetes Risk Test Score was three score 05/27/2022 Open Access - Established with Leah Monique [employer] 05/27/2022 Last Documented On 2 7:41PM ; [facility] Bipolar I disorder, most rec ent episode, manic Established Patient with Eufemia Mcneil [facility] 07/15/2021 Last Documented On 1 1:35AM ; [facility] Borderline personality disorder Estab lished Patient with Eufemia Mcneil [facility] 07/15/2021 Last Documented On 1 1:35AM ; [facility] Post-traumatic stress disorder Establ ished Patient with Eufemia Mcneil [facility] 07/15/2021 Last Documented On 1 1:35AM ; [facility] Assessment of visit for: lloyd strange for human immunodeficiency virus Medical Established Patient with Denny Lomeli [employer] 07/15/2021 Last Documented On 1 2:56PM ; [facility] Nicotine dependence Medical Established Patient with Dennyartem Lomeli [employer] 07/15/2021 Last Documented On 1 2:56PM ; [facility] Tachycardia Medical Established Patient with Denny Lomeli [employer] 07/15/2021 Last Documented On 1 2:56PM ; [facility] Z68.43 - Body mass index [BM I] 50.0-59.9, adult Medical Established Patient with Dennyartem Lomeli [employer] 07/15/2021 Last Documented On 1 2:56PM ; [facility] Bipolar I disorder, most rec ent episode, manic Established Patient with Kinga Short LISWS 06/17/2021 Last Documented On 1 10:17AM ; [facility] Borderline personality disor kyree per patient reported history Established Patient with Kinga Short LISWS 06/17/2021 Last Documented On 1 10:17AM ; [facility] Nicotine dependence Established Patient with Kinga Short LISWS 06/17/2021 Last Documented On 1 10:17AM ; [facility] Post-traumatic stress disorder Establ ished Patient with Kinga Short LISWS 06/17/2021 Last Documented On 1 10:17AM ; [facility] Body mass index Medical Established Patient with Denny Lomeli [employer] 06/17/2021 Last Documented On 1 5:23PM ; [facility] Morbid obesity Medical Established Patient with Denny Armani [employer] 06/17/2021 Last Documented On 1 5:23PM ; [facility] Nicotine dependence uncomplicated Medica l Established Patient with Denny Lomeli [employer] 06/17/2021 Last Documented On 1 5:23PM ; [facility] Z68.42 - Body mass index [BM I] 45.0-49.9, adult Medical Established Patient with Dennyartem Landonen [employer] 06/17/2021 Last Documented On 1 5:23PM ; [facility] 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 Last Documented On 1 7:49AM ; [facility] Mood disorders, NOS per blaze ent reported history Established Patient with Kinga Short LISWS 04/23/2021 Last Documented On 1 7:15PM ; [facility] Post-traumatic stress disorder Establ ished Patient with Kinga Short LISWS 04/23/2021 Last Documented On 1 7:15PM ; [facility] Morbid obesity Medical Established Patient with Denny Armani [employer] 04/23/2021 Last Documented On 1 12:31PM ; [facility] Otitis externa Medical Established Patient with Denny Armani [employer] 04/23/2021 Last Documented On 1 12:31PM ; [facility] Z68.42 - Body mass index [BM I] 45.0-49.9, adult Medical Established Patient with Denny Armani [employer] 04/23/2021 Last Documented On 1 12:31PM ; [facility] Post-traumatic stress disorder Establ ished Patient with Kinga Short LISWS 04/01/2021 Last Documented On 1 10:05PM ; [facility] Morbid obesity Medical Established Patient with Denny Armani [employer] 04/01/2021 Last Documented On 1 4:45PM ; [facility] Z68.42 - Body mass index [BM I] 45.0-49.9, adult Medical Established Patient with Denny Armani [employer] 04/01/2021 Last Documented On 1 4:45PM ; [facility] Post-traumatic stress disorder Establ ished Patient with Kinga Short LISWS 03/17/2021 Last Documented On 1 11:59AM ; [facility] Assessment of visit for: lloyd eening for human immunodeficiency virus Medical New Patient with Dennyartem Lomeli [employer] 03/17/2021 Last Documented On 1 4:06PM ; [facility] Diabetes Risk Test Score was one score 03/17/2021 Medical New Patient with Denny Armani [employer] 03/17/2021 Last Documented On 1 4:06PM ; [facility] Hypertension Medical New Patient with Denny C chas [employer] 03/17/2021 Last Documented On 1 4:06PM ; [facility] Morbid obesity Medical New Patient with Denny C chas [employer] 03/17/2021 Last Documented On 1 4:06PM ; [facility] Post-traumatic stress disorder Medical New Patie nt with Denny Lomeli [employer] 03/17/2021 Last Documented On 1 4:06PM ; [facility] Z68.42 - Body mass index [BM I] 45.0-49.9, adult Medical New Patient with Denny Lomeli [employer] 03/17/2021 Last Documented On 1 4:06PM ; [facility] Work Phone: 1(769) 648-956103-27-2024 History general Narrative - Reported Includes: Medical History in patient's chart Description Last Updated 0 previous live (s) 01/17/2024 Last Documented On 4 7:50PM ; [facility] Previously 1 time(s) 01/17/2024 Last Documented On 4 7:50PM ; [facility] Recent immunization for flu 01/17/2024 Last Documented On 4 7:50PM ; [facility] Has sex without a condom 06/08/2022 Last Documented On 2 4:04PM ; [facility] Not planning to have a baby in the next 12 months 06/08/2022 Last Documented On 2 4:04PM ; [facility] sexually transmitted infection status known 06/08/2022 Last Documented On 2 4:04PM ; [facility] No previous hospitalizations 06/08/2022 Last Documented On 2 4:04PM ; [facility] Chronic illness 05/17/2021 Last Documented On 1 7:49AM ; [facility] Exposure to COVID-19 04/23/2021 Last Documented On 1 12:31PM ; [facility] History of gynecologic disorder 03/17/20 21 Last Documented On 1 4:06PM ; [facility] History of Polycystic Ovarian Syndrome ( PCOS) 03/17/2021 Last Documented On 1 4:06PM ; [facility] History of anxiety disorder NOS 03/17/20 21 Last Documented On 1 4:06PM ; [facility] History of migraine headache 03/17/2021 Last Documented On 1 4:06PM ; [facility] History of psychiatric disorders biopola r disorder 03/17/2021 Last Documented On 1 4:06PM ; [facility] Work Phone: 1(659) 792-491003-27-2024 History general Narrative - Reported Includes: Medical History in patient's chart Description Last Updated 0 previous live (s) 01/17/2024 Last Documented On 4 7:50PM ; [facility] Previously 1 time(s) 01/17/2024 Last Documented On 4 7:50PM ; [facility] Recent immunization for flu 01/17/2024 Last Documented On 4 7:50PM ; [facility] Has sex without a condom 06/08/2022 Last Documented On 2 4:04PM ; [facility] Not planning to have a baby in the next 12 months 06/08/2022 Last Documented On 2 4:04PM ; [facility] sexually transmitted infection status known 06/08/2022 Last Documented On 2 4:04PM ; [facility] No previous hospitalizations 06/08/2022 Last Documented On 2 4:04PM ; [facility] Chronic illness 05/17/2021 Last Documented On 1 7:49AM ; [facility] Exposure to COVID-19 04/23/2021 Last Documented On 1 12:31PM ; [facility] History of gynecologic disorder 03/17/20 21 Last Documented On 1 4:06PM ; [facility] History of Polycystic Ovarian Syndrome ( PCOS) 03/17/2021 Last Documented On 1 4:06PM ; [facility] History of anxiety disorder NOS 03/17/20 21 Last Documented On 1 4:06PM ; [facility] History of migraine headache 03/17/2021 Last Documented On 1 4:06PM ; [facility] History of psychiatric disorders biopola r disorder 03/17/2021 Last Documented On 1 4:06PM ; [facility] Work Phone: 1([phone]) [phone] History general Narrative - Reported Includes: Medical History in patient's chart Description Last Updated 0 previous live (s) 01/17/2024 Last Documented On 4 7:50PM ; [facility] Previously 1 time(s) 01/17/2024 Last Documented On 4 7:50PM ; [facility] Recent immunization for flu 01/17/2024 Last Documented On 4 7:50PM ; [facility] Has sex without a condom 06/08/2022 Last Documented On 2 4:04PM ; [facility] Not planning to have a baby in the next 12 months 06/08/2022 Last Documented On 2 4:04PM ; [facility] sexually transmitted infection status known 06/08/2022 Last Documented On 2 4:04PM ; [facility] No previous hospitalizations 06/08/2022 Last Documented On 2 4:04PM ; [facility] Chronic illness 05/17/2021 Last Documented On 1 7:49AM ; [facility] Exposure to COVID-19 04/23/2021 Last Documented On 1 12:31PM ; [facility] History of gynecologic disorder 03/17/20 21 Last Documented On 1 4:06PM ; [facility] History of Polycystic Ovarian Syndrome ( PCOS) 03/17/2021 Last Documented On 1 4:06PM ; [facility] History of anxiety disorder NOS 03/17/20 21 Last Documented On 1 4:06PM ; [facility] History of migraine headache 03/17/2021 Last Documented On 1 4:06PM ; [facility] History of psychiatric disorders biopola r disorder 03/17/2021 Last Documented On 1 4:06PM ; [facility] Work Phone: 1(613) 731-989403-27-2024 Progress note* Progress note Date Encounter Last Documented by 01/17/2024 Medical Established Patient Last documented on 01/17/2024; 7:50 PM, Denny Lomeli CNP; [facility] Active Problems & Conditions - F90.9 - Attention-deficit Hyperactivity Disorder - F31.31 - Bipolar I Disorder, Most Recent Episode, Depressed Mild - F43.10 - Post-traumatic Stress Disorder Chief Complaint The Chief Complaint is: Patient was D/C'd from [facility] in [place] for no call no show. Patient needs [...] over psych meds , got dismissed from [facility] r/t no shows. has felt stable on meds x 11 months Current Medication - ARIPiprazole 5 MG Oral Tablet once daily, 90 days, 0 refills - busPIRone HCl 5 MG Oral Tablet one tablet twice daily, 90 days, 0 refills - lamoTRIgine 100 MG Oral Tablet once daily, 30 days, 0 refills - metFORMIN HCl 500 MG Oral Tablet AM and PM per [facility] in [place], 30 days, 0 refills - MiraLax 17 [...] BP-Sitting R134/88 mmHg BP Cuff SizeLarge Pulse Rate-Saefgit250 bpm Zspxdf60 in Itbgya299 lbs Body Mass Index52.7 kg/m2 Body Surface Area2.3 m2 Oxygen Aihstnbcyh11 % Vital Signs: - Systolic blood pressure [...] transmiss Outside Labs/Microbiology: All 3 Urine Test Obuucfmqf-Cceedynyx-Nwxlsmjqzok EndCited StartCited- Other Follow-up Appointment 2 month [...] Less than 40 years (0 points) [Pre-DM]. [facility]03-27-2024 Progress note* Progress note Date Encounter Last Documented by 01/17/2024 Established Patient Last docu mented on 01/18/2024; 5:16 PM, Kinga RUDOLPH; [facility] Active Problems & Conditions - F90.9 - Attention-deficit Hyperactivity Disorder - F31.31 - Bipolar I Disorder, Most Recent Episode, Depressed Mild - F43.10 - Post-traumatic Stress Disorder Chief Complaint The Chief Complaint is: [facility] met with patient to follow-up regarding mood and medications and discuss PHQ score of 2. Patient reports recently getting dismissed from services at a [facility] in [place] due to missing appointments. Patient reports being [...] MG Oral Tablet AM and PM per [facility] in [place], 30 days, 0 refills - MiraLax 17 [...] needed clothing: No, unable to get needed child care coordinator: No, unable to get other needs No, [...] + 0 pt : Not at all. [facility]07-19-2023 Progress note* Progress note Date Encounter Last Documented by 05/10/2023 Medical Established Patient Last documented on 05/10/2023; 6:01 PM, Denny Lomeli CNP; [facility] Active Problems & Conditions - F31.10 - [...] does see Belkis Clarke a counselor at [facility] Currently only taking Metformin d/t PCOS Current Medication - Aldactazide 50-50 MG Oral Tablet take 1 tablet by mouth once daily, 30 days, 11 refills - metFORMIN HCl 500 MG Oral Tablet AM and PM per [facility] in [place], 30 days, 0 refills - MiraLax 17 [...] BP-Sitting L111/76 mmHg BP Cuff SizeLarge Pulse Rate-Vupbleu11 bpm Temp-Oral98.2 F Cpgfxg27 in Cemhzd014 lbs Body Mass Index32.8 kg/m2 Body Surface Area1.9 m2 Oxygen Fllgqhtruo83 % Vital Signs: - Systolic blood pressure [...] Plan BMI Management satisfied 05/10/2023. [facility]10-21-2022 Evaluation note Includes: Assessments for all patient encounters Findings Encounter Date Assessment of body mass index Medical Es tablished Patient with Denny Lomeli [facility] 08/12/2022 Bipolar affective disorder, current episode manic Telebehavioral Health with Belkis Coffeyerson [facility] 06/16/2022 Bipolar affective disorder, current episode manic Established Patient with Belkis Coffeyerson [facility] 06/15/2022 Bipolar affective disorder, current episode depressed, severe with psychosis Telebehavioral Health with Belkis Coffeyerson [facility] 06/15/2022 Assessment of body mass inde x [Body mass index [BMI] 50.0-59.9, adult] Open Access - Established with Leah Amaya [facility] 06/15/2022 Bipolar I disorder, most rec ent episode, manic Open Access - Established with Leah Monique [facility] 06/15/2022 Post-traumatic stress disorder Establ ished Patient with Belkis Coffeyerson [facility] 06/08/2022 No cough Medical Established Patient with Denny Lomeli [facility] 06/08/2022 Z68.43 - Body mass index [BM I] 50.0-59.9, adult Medical Established Patient with Denny Landonen [facility] 06/08/2022 Borderline personality disor kyree Pt reported hx of sx/dx Established Patient with Belkis Velarde [facility] 05/27/2022 Assessment of body mass inde x [Body mass index [BMI] 50.0-59.9, adult] Open Access - Established with Leah Monique [employer] 05/27/2022 Diabetes Risk Test Score was three score 05/27/2022 Open Access - Established with Leah Monique [employer] 05/27/2022 Bipolar I disorder, most rec ent episode, manic Established Patient with Eufemia Mcneil [facility] 07/15/2021 Borderline personality disorder Estab lished Patient with Eufemia Mcneil [facility] 07/15/2021 Post-traumatic stress disorder Establ ished Patient with Eufemia Mcneil [facility] 07/15/2021 Assessment of visit for: lloyd strange for human immunodeficiency virus Medical Established Patient with Denny Armani [employer] 07/15/2021 Nicotine dependence Medical Established Patient with Denny Armani [employer] 07/15/2021 Tachycardia Medical Established Patient with Denny Armani [facility] 07/15/2021 Z68.43 - Body mass index [BM I] 50.0-59.9, adult Medical Established Patient with Denny Armani [employer] 07/15/2021 Bipolar I disorder, most rec ent episode, manic Established Patient with Kinga Short [facility] 06/17/2021 Borderline personality disor kyree per patient reported history Established Patient with Kinga Short LIS[facility] 06/17/2021 Nicotine dependence Established Patie nt with Kinga Short LISWS 06/17/2021 Post-traumatic stress disorder Establ ished Patient with Kinga Short [facility] 06/17/2021 Body mass index Medical Established Patient with Denny Armani [employer] 06/17/2021 Morbid obesity Medical Established Patient with Denny Armani [employer] 06/17/2021 Nicotine dependence uncomplicated Medica l Established Patient with Denny Armani [employer] 06/17/2021 Z68.42 - Body mass index [BM I] 45.0-49.9, adult Medical Established Patient with Denny Armani [employer] 06/17/2021 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 05/15/2021 Mood disorders, NOS per blaze ent reported history Established Patient with Kinga Short [facility] 04/23/2021 Post-traumatic stress disorder BH Establ ished Patient with Kinga Short LISWS 04/23/2021 Morbid obesity Medical Established Patient with Denny Armani [employer] 04/23/2021 Otitis externa Medical Established Patient with Denny Armani [employer] 04/23/2021 Z68.42 - Body mass index [BM I] 45.0-49.9, adult Medical Established Patient with Denny Armani [employer] 04/23/2021 Post-traumatic stress disorder BH Establ ished Patient with Kinga Short [facility] 04/01/2021 Morbid obesity Medical Established Patient with Denny Armani [employer] 04/01/2021 Z68.42 - Body mass index [BM I] 45.0-49.9, adult Medical Established Patient with Denny [employer] [employer] 04/01/2021 Post-traumatic stress disorder BH Establ ished Patient with Kinga Short LISWS 03/17/2021 [facility] Medical New Patient with Denny Armani [employer] 03/17/2021 Diabetes Risk Test Score was one score 03/17/2021 Medical New Patient with Denny Armani [employer] 03/17/2021 Hypertension Medical New Patient with Denny Armani [employer] 03/17/2021 Morbid obesity Medical New Patient with Denny Armani [employer] 03/17/2021 Post-traumatic stress disorder Medical N ew Patient with Denny Armani [employer] 03/17/2021 Z68.42 - Body mass index [BM I] 45.0-49.9, adult Medical New Patient with Denny Armani [employer] 03/17/2021 [facility] Work Phone: 1(350) 641-742808-25-2022 Evaluation note Includes: Assessments for all patient encounters Findings Encounter Date Bipolar affective disorder, current episode manic Telebehavioral Health with Belkis Velarde [facility] 06/16/2022 Bipolar affective disorder, current episode manic Established Patient with Belkisdionna Velarde [facility] 06/15/2022 Bipolar affective disorder, current episode depressed, severe with psychosis Telebehavioral Health with Belkis Velarde [facility] 06/15/2022 Assessment of body mass inde x [Body mass index [BMI] 50.0-59.9, adult] Open Access - Established with Leah Amaya [facility] [place] 06/15/2022 Bipolar I disorder, most rec ent episode, manic Open Access - Established with Leah Monique [employer] 06/15/2022 Post-traumatic stress disorder Establ ished Patient with Belkis Velarde [facility] 06/08/2022 No cough Medical Established Patient with Denny Lomeli [employer] 06/08/2022 Z68.43 - Body mass index [BM I] 50.0-59.9, adult Medical Established Patient with Dennyartem Lomeli [employer] 06/08/2022 Borderline personality disor kyree Pt reported hx of sx/dx Established Patient with Belkis Velarde [facility] 05/27/2022 Assessment of body mass inde x [Body mass index [BMI] 50.0-59.9, adult] Open Access - Established with Leah Monique [employer] 05/27/2022 Diabetes Risk Test Score was three score 05/27/2022 Open Access - Established with Leah Monique [employer] 05/27/2022 Bipolar I disorder, most rec ent episode, manic Established Patient with Eufemia Mcneil [facility] 07/15/2021 Borderline personality disorder Estab lished Patient with Eufemia Mcneil [facility] 07/15/2021 Post-traumatic stress disorder Establ ished Patient with Eufemia Mcneil [facility] 07/15/2021 Assessment of visit for: lloyd strange for human immunodeficiency virus Medical Established Patient with Denny Armani [employer] 07/15/2021 Nicotine dependence Medical Established Patient with Denny Armani [employer] 07/15/2021 Tachycardia Medical Established Patient with Denny Armani [facility] [place] 07/15/2021 Z68.43 - Body mass index [BM I] 50.0-59.9, adult Medical Established Patient with Denny Armani [employer] 07/15/2021 Bipolar I disorder, most rec ent episode, manic Established Patient with Kinga Short LISWS 06/17/2021 Borderline personality disor kyree per patient reported history BH Established Patient with Kinga Short LISWS 06/17/2021 Nicotine dependence Established Patie nt with Kinga Short LISWS 06/17/2021 Post-traumatic stress disorder Establ ished Patient with Kinga Short LISWS 06/17/2021 Body mass index Medical Established Patient with Denny Armani [employer] 06/17/2021 Morbid obesity Medical Established Patient with Denny Armani [employer] 06/17/2021 Nicotine dependence uncomplicated Medica l Established Patient with Denny Armani [employer] 06/17/2021 Z68.42 - Body mass index [BM I] 45.0-49.9, adult Medical Established Patient with Denny Armani [employer] 06/17/2021 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[place] 05/15/2021 Mood disorders, NOS per blaze ent reported history Established Patient with Kinga Short LISWS 04/23/2021 Post-traumatic stress disorder Establ ished Patient with Kinga Short LISWS 04/23/2021 Morbid obesity Medical Established Patient with Denny Armani [employer] 04/23/2021 Otitis externa Medical Established Patient with Denny Armani [employer] 04/23/2021 Z68.42 - Body mass index [BM I] 45.0-49.9, adult Medical Established Patient with Denny Armani [employer] 04/23/2021 Post-traumatic stress disorder Establ ished Patient with Kinga Short LISWS 04/01/2021 Morbid obesity Medical Established Patient with Denny Armani [employer] 04/01/2021 Z68.42 - Body mass index [BM I] 45.0-49.9, adult Medical Established Patient with Denny Armani [employer] 04/01/2021 Post-traumatic stress disorder Establ ished Patient with Kinga Short LISWS 03/17/2021 Assessment of visit for: lloyd strange for human immunodeficiency virus Medical New Patient with Denny Armani [employer] 03/17/2021 Diabetes Risk Test Score was one score 03/17/2021 Medical New Patient with Denny Armani [employer] 03/17/2021 Hypertension Medical New Patient with Denny Armani [employer] 03/17/2021 Morbid obesity Medical New Patient with Denny Armani [employer] 03/17/2021 Post-traumatic stress disorder Medical N ew Patient with Denny Armani [employer] 03/17/2021 Z68.42 - Body mass index [BM I] 45.0-49.9, adult Medical New Patient with Denny Armani [employer] 03/17/2021 [facility] Work Phone: 1([phone]) 625-582008-24-2022 Evaluation note Includes: Assessments for all patient encounters Findings Encounter Date Bipolar affective disorder, current episode depressed, severe with psychosis BH Telebehavioral Health with Belkis Velarde [facility] 06/15/2022 Assessment of body mass inde x [Body mass index [BMI] 50.0-59.9, adult] Open Access - Established with Leah Monique [employer] 06/15/2022 Post-traumatic stress disorder Establ ished Patient with Belkisdionna Velarde [facility] 06/08/2022 No cough Medical Established Patient with Dennyartem Landonen [employer] 06/08/2022 Z68.43 - Body mass index [BM I] 50.0-59.9, adult Medical Established Patient with Denny Armani [employer] 06/08/2022 Borderline personality disor kyree Pt reported hx of sx/dx Established Patient with Belkis Velarde [facility] 05/27/2022 Assessment of body mass inde x [Body mass index [BMI] 50.0-59.9, adult] Open Access - Established with Leah Monique [employer] 05/27/2022 Diabetes Risk Test Score was three score 05/27/2022 Open Access - Established with Leah Monique [facility] [place] 05/27/2022 Bipolar I disorder, most rec ent episode, manic Established Patient with Eufemia Mcneil [facility] 07/15/2021 Borderline personality disorder Estab lished Patient with Eufemia Mcneil [facility] 07/15/2021 Post-traumatic stress disorder Establ ished Patient with Eufemia Mcneil [facility] 07/15/2021 Assessment of visit for: lloyd strange for human immunodeficiency virus Medical Established Patient with Denny Armani [employer] 07/15/2021 Nicotine dependence Medical Established Patient with Denny Armani [employer] 07/15/2021 Tachycardia Medical Established Patient with Denny Armani [employer] 07/15/2021 Z68.43 - Body mass index [BM I] 50.0-59.9, adult Medical Established Patient with Denny Armani [employer] 07/15/2021 Bipolar I disorder, most rec ent episode, manic Established Patient with Kinga Short LISWS 06/17/2021 Borderline personality disor kyree per patient reported history Established Patient with Kinga Short LISWS 06/17/2021 Nicotine dependence Established Patie nt with Kinga Short LISWS 06/17/2021 Post-traumatic stress disorder BH Establ ished Patient with Kinga Short LISWS 06/17/2021 Body mass index Medical Established Patient with Denny Armani [employer] 06/17/2021 Morbid obesity Medical Established Patient with Denny Armani [employer] 06/17/2021 Nicotine dependence uncomplicated Medica l Established Patient with Denny Armani [employer] 06/17/2021 Z68.42 - Body mass index [BM I] 45.0-49.9, adult Medical Established Patient with Denny Armani [employer] 06/17/2021 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[place] 05/15/2021 Mood disorders, NOS per blaze ent reported history BH Established Patient with Kinga Short LISWS 04/23/2021 Post-traumatic stress disorder BH Establ ished Patient with Kinga Short LISWS 04/23/2021 Morbid obesity Medical Established Patient with Denny Armani [employer] 04/23/2021 Otitis externa Medical Established Patient with Denny Armani [employer] 04/23/2021 Z68.42 - Body mass index [BM I] 45.0-49.9, adult Medical Established Patient with Denny Armani [employer] 04/23/2021 Post-traumatic stress disorder BH Establ ished Patient with Kinga Short LISWS 04/01/2021 Morbid obesity Medical Established Patient with Denny Armani [employer] 04/01/2021 Z68.42 - Body mass index [BM I] 45.0-49.9, adult Medical Established Patient with Denny Armani [employer] 04/01/2021 Post-traumatic stress disorder BH Establ ished Patient with Kinga Short LISWS 03/17/2021 Assessment of visit for: lloyd strange for human immunodeficiency virus Medical New Patient with Denny Armani [employer] 03/17/2021 Diabetes Risk Test Score was one score 03/17/2021 Medical New Patient with Denny Armani [employer] 03/17/2021 Hypertension Medical New Patient with Denny Armani [employer] 03/17/2021 Morbid obesity Medical New Patient with Denny Armani [employer] 03/17/2021 Post-traumatic stress disorder Medical N ew Patient with Denny Armani [employer] 03/17/2021 Z68.42 - Body mass index [BM I] 45.0-49.9, adult Medical New Patient with Denny Armani [employer] 03/17/2021 [facility] Work Phone: 1(300) [phone] Evaluation note Includes: Assessments for all patient encounters Findings Encounter Date Bipolar affective disorder, current episode depressed, severe with psychosis Telebehavioral Health with Belkisdionna Velarde [facility] 06/15/2022 Assessment of body mass inde x [Body mass index [BMI] 50.0-59.9, adult] Open Access - Established with Leah Monique [employer] 06/15/2022 Bipolar I disorder, most rec ent episode, manic Open Access - Established with Leah Monique [employer] 06/15/2022 Post-traumatic stress disorder Establ ished Patient with Belkisdionna Velarde [facility] 06/08/2022 No cough Medical Established Patient with Denny Armani [employer] 06/08/2022 Z68.43 - Body mass index [BM I] 50.0-59.9, adult Medical Established Patient with Dennyartem Lomeli [employer] 06/08/2022 Borderline personality disor kyree Pt reported hx of sx/dx Established Patient with Belkisdionna Velarde [facility] 05/27/2022 Assessment of body mass inde x [Body mass index [BMI] 50.0-59.9, adult] Open Access - Established with Leah Monique [employer] 05/27/2022 Diabetes Risk Test Score was three score 05/27/2022 Open Access - Established with Leah Monique [employer] 05/27/2022 Bipolar I disorder, most rec ent episode, manic Established Patient with Eufemia Mcneil [facility] 07/15/2021 Borderline personality disorder Estab lished Patient with Eufemia Mcneil [facility] 07/15/2021 Post-traumatic stress disorder Establ ished Patient with Eufemia Mcneil [facility] 07/15/2021 Assessment of visit for: lloyd strange for human immunodeficiency virus Medical Established Patient with Denny Armani [employer] 07/15/2021 Nicotine dependence Medical Established Patient with Denny Armani [employer] 07/15/2021 Tachycardia Medical Established Patient with Denny Armani [employer] 07/15/2021 Z68.43 - Body mass index [BM I] 50.0-59.9, adult Medical Established Patient with Denny Armani [employer] 07/15/2021 Bipolar I disorder, most rec ent [...] index Medical Established Patient with Denny Armani [employer] 06/17/2021 Morbid obesity Medical Established Patient with Denny Armani [employer] 06/17/2021 Nicotine dependence uncomplicated Medica l Established Patient with Denny Armani [employer] 06/17/2021 Z68.42 - Body mass index [BM I] 45.0-49.9, adult Medical Established Patient with Denny Armani [employer] 06/17/2021 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[place] 05/15/2021 Mood disorders, NOS per blaze ent reported history BH Established Patient with Kinga Short LISWS 04/23/2021 Post-traumatic stress disorder BH Establ ished Patient with Kinga Short LISWS 04/23/2021 Morbid obesity Medical Established Patient with Denny Armani [employer] 04/23/2021 Otitis externa Medical Established Patient with Denny Armani [employer] 04/23/2021 Z68.42 - Body mass index [BM I] 45.0-49.9, adult Medical Established Patient with Denny Armani [employer] 04/23/2021 Post-traumatic stress disorder BH Establ ished Patient with Kinga Short LISWS 04/01/2021 Morbid obesity Medical Established Patient with Denny Armani [employer] 04/01/2021 Z68.42 - Body mass index [BM I] 45.0-49.9, adult Medical Established Patient with Denny Armani [employer] 04/01/2021 Post-traumatic stress disorder BH Establ ished Patient with Kinga Short LISWS 03/17/2021 Assessment of visit for: lloyd strange for human immunodeficiency virus Medical New Patient with Denny Armani [employer] 03/17/2021 Diabetes Risk Test Score was one score 03/17/2021 Medical New Patient with Denny Armani [employer] 03/17/2021 Hypertension Medical New Patient with Denny Armani [employer] 03/17/2021 Morbid obesity Medical New Patient with Denny Armani [employer] 03/17/2021 Post-traumatic stress disorder Medical N ew Patient with Denny Lomeli [employer] 03/17/2021 Z68.42 - Body mass index [BM I] 45.0-49.9, adult Medical New Patient with Denny Lomeli [employer] 03/17/2021 [facility] Work Phone: 1(556) 141-632308-24-2022 Evaluation note Includes: Assessments for all patient encounters Findings Encounter Date Bipolar affective disorder, current episode manic Established Patient with Belkisdionna Velarde [facility] 06/15/2022 Bipolar affective disorder, current episode depressed, severe with psychosis Telebehavioral Health with Belkisdionna Velarde [facility] 06/15/2022 Assessment of body mass inde x [Body mass index [BMI] 50.0-59.9, adult] Open Access - Established with Leah Monique [employer] 06/15/2022 Bipolar I disorder, most rec ent episode, manic Open Access - Established with Leah Monique [employer] 06/15/2022 Post-traumatic stress disorder Establ ished Patient with Belkisdionna Velarde [facility] 06/08/2022 No cough Medical Established Patient with Dennyartem Lomeli [facility] [place] 06/08/2022 Z68.43 - Body mass index [BM I] 50.0-59.9, adult Medical Established Patient with Dennyartem Lomeli [employer] 06/08/2022 Borderline personality disor kyree Pt reported hx of sx/dx Established Patient with Belkisdionna Velarde [facility] 05/27/2022 Assessment of body mass inde x [Body mass index [BMI] 50.0-59.9, adult] Open Access - Established with Leah Monique [employer] 05/27/2022 Diabetes Risk Test Score was three score 05/27/2022 Open Access - Established with Leah Monique [employer] 05/27/2022 Bipolar I disorder, most rec ent episode, manic Established Patient with Eufemiahola Brashers [facility] 07/15/2021 Borderline personality disorder Estab lished Patient with Eufemia Mcneil [facility] 07/15/2021 Post-traumatic stress disorder Establ ished Patient with Eufemia Mcneil [facility] 07/15/2021 Assessment of visit for: lloyd strange for human immunodeficiency virus Medical Established Patient with Dennyartem Landonen [employer] 07/15/2021 Nicotine dependence Medical Established Patient with Denny Armani [employer] 07/15/2021 Tachycardia Medical Established Patient with Denny Armani [employer] 07/15/2021 Z68.43 - Body mass index [BM I] 50.0-59.9, adult Medical Established Patient with Denny Armani [employer] 07/15/2021 Bipolar I disorder, most rec ent episode, manic Established Patient with Kinga Short LISWS 06/17/2021 Borderline personality disor kyree per patient reported history Established Patient with Kinga Short LISWS 06/17/2021 Nicotine dependence BH Established Patie nt with Kinga Short LISWS 06/17/2021 Post-traumatic stress disorder Establ ished Patient with Kinga Short LISWS 06/17/2021 Body mass index Medical Established Patient with Denny Armani [employer] 06/17/2021 Morbid obesity Medical Established Patient with Denny Armani [employer] 06/17/2021 Nicotine dependence uncomplicated Medica l Established Patient with Denny Armani [employer] 06/17/2021 Z68.42 - Body mass index [BM I] 45.0-49.9, adult Medical Established Patient with Denny Armani [employer] 06/17/2021 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[place] 05/15/2021 Mood disorders, NOS per blaze ent reported history Established Patient with Kinga Short LISWS 04/23/2021 Post-traumatic stress disorder Establ ished Patient with Kinga Short LISWS 04/23/2021 Morbid obesity Medical Established Patient with Denny Armani [employer] 04/23/2021 Otitis externa Medical Established Patient with Denny Armani [employer] 04/23/2021 Z68.42 - Body mass index [BM I] 45.0-49.9, adult Medical Established Patient with Denny Armani [employer] 04/23/2021 Post-traumatic stress disorder BH Establ ished Patient with Kinga Short LISWS 04/01/2021 Morbid obesity Medical Established Patient with Denny Armani [employer] 04/01/2021 Z68.42 - Body mass index [BM I] 45.0-49.9, adult Medical Established Patient with Denny Armani [employer] 04/01/2021 Post-traumatic stress disorder Establ ished Patient with Kinga Short LISWS 03/17/2021 Assessment of visit for: scr eening for human immunodeficiency virus Medical New Patient with Dennyartem Lomeli [employer] 03/17/2021 Diabetes Risk Test Score was one score 03/17/2021 Medical New Patient with Denny Armani [employer] 03/17/2021 Hypertension Medical New Patient with Denny Armani [employer] 03/17/2021 Morbid obesity Medical New Patient with Dennyartem Lomeli [employer] 03/17/2021 Post-traumatic stress disorder Medical N ew Patient with Denny Armani [employer] 03/17/2021 Z68.42 - Body mass index [BM I] 45.0-49.9, adult Medical New Patient with Dennyartem Lomeli [employer] 03/17/2021 [facility] Work Phone: 1([phone]) 334-537308-17-2022 Evaluation note Includes: Assessments for all patient encounters Findings Encounter Date Post-traumatic stress disorder Establ ished Patient with Belkisdionna CoffeyVelarde [facility] 06/08/2022 No cough Medical Established Patient with Denny Armani [employer] 06/08/2022 Z68.43 - Body mass index [BM I] 50.0-59.9, adult Medical Established Patient with Dennyartem Landonen [employer] 06/08/2022 Borderline personality disor kyree Pt reported hx of sx/dx Established Patient with Belkisdionna Velarde [facility] 05/27/2022 Assessment of body mass inde x [Body mass index [BMI] 50.0-59.9, adult] Open Access - Established with Leah Amaya [facility] [place] 05/27/2022 Diabetes Risk Test Score was three score 05/27/2022 Open Access - Established with Leah Monique [employer] 05/27/2022 Bipolar I disorder, most rec ent episode, manic Established Patient with Eufemia Mcneil [facility] 07/15/2021 Borderline personality disorder Estab lished Patient with Eufemia Mcneil [facility] 07/15/2021 Post-traumatic stress disorder Establ ished Patient with Eufemia Mcneil [facility] 07/15/2021 Assessment of visit for: scr eening for human immunodeficiency virus Medical Established Patient with Denny Armani [employer] 07/15/2021 Nicotine dependence Medical Established Patient with Denny Armani [employer] 07/15/2021 Tachycardia Medical Established Patient with Denny Armani [employer] 07/15/2021 Z68.43 - Body mass index [BM I] 50.0-59.9, adult Medical Established Patient with Denny Armani [employer] 07/15/2021 Bipolar I disorder, most rec ent episode, manic Established Patient with Kinga Short LISWS 06/17/2021 Borderline personality disor kyree per patient reported history BH Established Patient with Kinga Short LISWS 06/17/2021 Nicotine dependence BH Established Patie nt with Kinga Short LISWS 06/17/2021 Post-traumatic stress disorder Establ ished Patient with Kinga Short LISWS 06/17/2021 Body mass index Medical Established Patient with Denny Armani [employer] 06/17/2021 Morbid obesity Medical Established Patient with Denny Armani [employer] 06/17/2021 Nicotine dependence uncomplicated Medica l Established Patient with Denny Armani [employer] 06/17/2021 Z68.42 - Body mass index [BM I] 45.0-49.9, adult Medical Established Patient with Denny Lomeli [employer] 06/17/2021 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[place] 05/15/2021 Mood disorders, NOS per blaze ent reported history Established Patient with Kinga Short LISWS 04/23/2021 Post-traumatic stress disorder Establ ished Patient with Kinga Short LISWS 04/23/2021 Morbid obesity Medical Established Patient with Denny Armani [employer] 04/23/2021 Otitis externa Medical Established Patient with Denny Lomeli [employer] 04/23/2021 Z68.42 - Body mass index [BM I] 45.0-49.9, adult Medical Established Patient with Denny Armani [employer] 04/23/2021 Post-traumatic stress disorder Establ ished Patient with Kinga Short LISWS 04/01/2021 Morbid obesity Medical Established Patient with Denny Armani [employer] 04/01/2021 Z68.42 - Body mass index [BM I] 45.0-49.9, adult Medical Established Patient with Denny Armani [employer] 04/01/2021 Post-traumatic stress disorder BH Establ ished Patient with Kinga Short LISWS 03/17/2021 Assessment of visit for: lloyd strange for human immunodeficiency virus Medical New Patient with Denny Lomeli [employer] 03/17/2021 Diabetes Risk Test Score was one score 03/17/2021 Medical New Patient with Denny Lomeli [employer] 03/17/2021 Hypertension Medical New Patient with Denny Lomeli [employer] 03/17/2021 Morbid obesity Medical New Patient with Denny Lomeli [employer] 03/17/2021 Post-traumatic stress disorder Medical N ew Patient with Denny Lomeli [employer] 03/17/2021 Z68.42 - Body mass index [BM I] 45.0-49.9, adult Medical New Patient with Denny Lomeli [employer] 03/17/2021 [facility] Work Phone: 1(572) 533-620508-17-2022 History general Narrative - Reported Includes: Medical [...] of psychiatric disorders biopola r disorder 03/17/2021 [facility] Work Phone: 1(272) 729-787108-05-2022 Evaluation note Includes: Assessments for all patient encounters Findings Encounter Date Borderline personality disor kyree Pt reported hx of sx/dx Established Patient with Belkis Syd [facility] 05/27/2022 Assessment of body mass inde x [Body mass index [BMI] 50.0-59.9, adult] Open Access - Established with Leah Amaya CNP 05/27/2022 Diabetes Risk Test Score was three score 05/27/2022 Open Access - Established with Leah Amaya [employer] 05/27/2022 Bipolar I disorder, most rec ent episode, manic Established Patient with Eufemiahola Brashers LPCC-S 07/15/2021 Borderline personality disorder Estab lished Patient with Eufemia Mcneil LPCC-S 07/15/2021 Post-traumatic stress disorder Establ ished Patient with Eufemia Mcneil LPCC-S 07/15/2021 Assessment of visit for: lloyd strange for human immunodeficiency virus Medical Established Patient with Denny Armani [employer] 07/15/2021 Nicotine dependence Medical Established Patient with Denny Armani [employer] 07/15/2021 Tachycardia Medical Established Patient with Denny Armani [employer] 07/15/2021 Z68.43 - Body mass index [BM I] 50.0-59.9, adult Medical Established Patient with Denny Armani [employer] 07/15/2021 Bipolar I disorder, most rec ent episode, manic Established Patient with Kinga Short LISWS 06/17/2021 Borderline personality disor kyree per patient reported history Established Patient with Kinga Short LISWS 06/17/2021 Nicotine dependence Established Patie nt with Kinga Short LISWS 06/17/2021 Post-traumatic stress disorder Establ ished Patient with Kinga Short LISWS 06/17/2021 Body mass index Medical Established Patient with Denny Armani [employer] 06/17/2021 Morbid obesity Medical Established Patient with Denny Armani [employer] 06/17/2021 Nicotine dependence uncomplicated Medica l Established Patient with Denny Armani [employer] 06/17/2021 Z68.42 - Body mass index [BM I] 45.0-49.9, adult Medical Established Patient with Denny Armani [employer] 06/17/2021 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[place] 05/15/2021 Mood disorders, NOS per blaze ent reported history Established Patient with Kinga Short LISWS 04/23/2021 Post-traumatic stress disorder Establ ished Patient with Kinga Short LISWS 04/23/2021 Morbid obesity Medical Established Patient with Denny Armani [employer] 04/23/2021 Otitis externa Medical Established Patient with Denny Armani [employer] 04/23/2021 Z68.42 - Body mass index [BM I] 45.0-49.9, adult Medical Established Patient with Denny Armani [employer] 04/23/2021 Post-traumatic stress disorder BH Establ ished Patient with Kinga Short LISWS 04/01/2021 Morbid obesity Medical Established Patient with Denny Armani [employer] 04/01/2021 Z68.42 - Body mass index [BM I] 45.0-49.9, adult Medical Established Patient with Denny Armani [employer] 04/01/2021 Post-traumatic stress disorder BH Establ ished Patient with Kinga Short LISWS 03/17/2021 Assessment of visit for: lloyd strange for human immunodeficiency virus Medical New Patient with Denny Lomeli [employer] 03/17/2021 Diabetes Risk Test Score was one score 03/17/2021 Medical New Patient with Denny Lomeli [employer] 03/17/2021 Hypertension Medical New Patient with Denny Lomeli [employer] 03/17/2021 Morbid obesity Medical New Patient with Denny Lomeli SCOTT 03/17/2021 Post-traumatic stress disorder Medical N ew Patient with Denny Lomeli [employer] 03/17/2021 Z68.42 - Body mass index [BM I] 45.0-49.9, adult Medical New Patient with Denny Lomeli [employer] 03/17/2021 [facility] Work Phone: 1(426) 198-880108-05-2022 Reason for referral (narrative)* Date Encounter Description Provider Reason for Referral 05/27/22 Established Patient Belkis Velarde LP CC-S Referral To Mental Health Team 03/17/21 Medical New Patient Denny Lomeli CNP Refe rral To Mental Health Team [facility] Work Phone: 1(124) 884-852410-04-2021 History of Present illness Narrative* Jazmine Dodge - 07/26/2021 1:30 PM EDT Explained Holter monitor and diary. [facility] 1(149) 964-651509-23-2021 Evaluation note Includes: Assessments for all patient [...] adult Medical Established Patient with Denny Lomeli [employer] 07/15/2021 Bipolar I disorder, most rec ent episode, manic Established Patient with Kinga Short LISWS 06/17/2021 Borderline personality disor kyree per patient reported history BH Established Patient with Kinga Short LISWS 06/17/2021 Nicotine dependence BH Established Patie nt with Kinga Short LISWS 06/17/2021 Post-traumatic stress disorder Establ ished Patient with Kinga Short LISWS 06/17/2021 Body mass index Medical Established Patient with Denny Landonen [employer] 06/17/2021 Morbid obesity Medical Established Patient with Denny Armani [employer] 06/17/2021 Nicotine dependence uncomplicated Medica l Established Patient with Denny Armani [employer] 06/17/2021 Z68.42 - Body mass index [BM I] 45.0-49.9, adult Medical Established Patient with Denny Lomeli [facility] [place] 06/17/2021 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[place] 05/15/2021 Mood disorders, NOS per blaze ent reported history Established Patient with Kinga Short LISWS 04/23/2021 Post-traumatic stress disorder Establ ished Patient with Kinga Short LISWS 04/23/2021 Morbid obesity Medical Established Patient with Denny Armani [employer] 04/23/2021 Otitis externa Medical Established Patient with Dennyartem Lomeli [employer] 04/23/2021 Z68.42 - Body mass index [BM I] 45.0-49.9, adult Medical Established Patient with Denny Armani [employer] 04/23/2021 Post-traumatic stress disorder Establ ished Patient with Kinga Short LISWS 04/01/2021 Morbid obesity Medical Established Patient with Denny Armani [employer] 04/01/2021 Z68.42 - Body mass index [BM I] 45.0-49.9, adult Medical Established Patient with Denny Armani [employer] 04/01/2021 Post-traumatic stress disorder BH Establ ished Patient with Kinga Short LISWS 03/17/2021 Assessment of visit for: lloyd strange for human immunodeficiency virus Medical New Patient with Denny Lomeli [employer] 03/17/2021 Diabetes Risk Test Score was one score 03/17/2021 Medical New Patient with Denny Armani [employer] 03/17/2021 Hypertension Medical New Patient with Denny Armani [employer] 03/17/2021 Morbid obesity Medical New Patient with Denny Armani [employer] 03/17/2021 Post-traumatic stress disorder Medical N ew Patient with Denny Armani [employer] 03/17/2021 Z68.42 - Body mass index [BM I] 45.0-49.9, adult Medical New Patient with Denny Armani [employer] 03/17/2021 [facility] Work Phone: 1(369) 292-835409-23-2021 Evaluation note Includes: Assessments for all patient [...] virus Medical Established Patient with Denny Armani [employer] 07/15/2021 Nicotine dependence Medical Established Patient with Denny Armani [employer] 07/15/2021 Tachycardia Medical Established Patient with Denny Armani [employer] 07/15/2021 Z68.43 - Body mass index [BM I] 50.0-59.9, adult Medical Established Patient with Denny Armani [employer] 07/15/2021 Bipolar I disorder, most rec ent episode, manic Established Patient with Kinga Short LISWS 06/17/2021 Borderline personality disor kyree per patient reported history BH Established Patient with Kinga Short LISWS 06/17/2021 Nicotine dependence Established Patie nt with Kinga Short LISWS 06/17/2021 Post-traumatic stress disorder BH Establ ished Patient with Kinga Short LISWS 06/17/2021 Body mass index Medical Established Patient with Denny Armani [employer] 06/17/2021 Morbid obesity Medical Established Patient with Denny Armani [employer] 06/17/2021 Nicotine dependence uncomplicated Medica l Established Patient with Denny Armani [employer] 06/17/2021 Z68.42 - Body mass index [BM I] 45.0-49.9, adult Medical Established Patient with Denny Armani [employer] 06/17/2021 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[place] 05/15/2021 Mood disorders, NOS per blaze ent reported history Established Patient with Kinga Short LISWS 04/23/2021 Post-traumatic stress disorder Establ ished Patient with Kinga Short LISWS 04/23/2021 Morbid obesity Medical Established Patient with Denny Armani [employer] 04/23/2021 Otitis externa Medical Established Patient with Denny Armani [employer] 04/23/2021 Z68.42 - Body mass index [BM I] 45.0-49.9, adult Medical Established Patient with Denny Armani [employer] 04/23/2021 Post-traumatic stress disorder BH Establ ished Patient with Kinga Short LISWS 04/01/2021 Morbid obesity Medical Established Patient with Denny Armani [employer] 04/01/2021 Z68.42 - Body mass index [BM I] 45.0-49.9, adult Medical Established Patient with Denny Armani [employer] 04/01/2021 Post-traumatic stress disorder Establ ished Patient with Kinga Short LISWS 03/17/2021 Assessment of visit for: lloyd strange for human immunodeficiency virus Medical New Patient with Denny Armani [employer] 03/17/2021 Diabetes Risk Test Score was one score 03/17/2021 Medical New Patient with Denny Armani [employer] 03/17/2021 Hypertension Medical New Patient with Denny Armani [employer] 03/17/2021 Morbid obesity Medical New Patient with Denny Armani [employer] 03/17/2021 Post-traumatic stress disorder Medical N ew Patient with Denny Armani [employer] 03/17/2021 Z68.42 - Body mass index [BM I] 45.0-49.9, adult Medical New Patient with Denny Armani [employer] 03/17/2021 [facility] Work Phone: 1(909) [phone] Evaluation note Includes: Assessments for all patient [...] index Medical Established Patient with Denny Armani [employer] 06/17/2021 Morbid obesity Medical Established Patient with Denny Armani [employer] 06/17/2021 Nicotine dependence uncomplicated Medica l Established Patient with Denny Armani [employer] 06/17/2021 Z68.42 - Body mass index [BM I] 45.0-49.9, adult Medical Established Patient with Denny Armani [employer] 06/17/2021 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[place] 05/15/2021 Mood disorders, NOS per blaze ent reported history BH Established Patient with Kinga Short LISWS 04/23/2021 Post-traumatic stress disorder BH Establ ished Patient with Kinga Short LISWS 04/23/2021 Morbid obesity Medical Established Patient with Denny Armani [employer] 04/23/2021 Otitis externa Medical Established Patient with Denny Armani [employer] 04/23/2021 Z68.42 - Body mass index [BM I] 45.0-49.9, adult Medical Established Patient with Denny Armani [employer] 04/23/2021 Post-traumatic stress disorder BH Establ ished Patient with Kinga Short LISWS 04/01/2021 Morbid obesity Medical Established Patient with Denny Armani [employer] 04/01/2021 Z68.42 - Body mass index [BM I] 45.0-49.9, adult Medical Established Patient with Denny Armani [employer] 04/01/2021 Post-traumatic stress disorder BH Establ ished Patient with Kinga Short LISWS 03/17/2021 Assessment of visit for: lloyd strange for human immunodeficiency virus Medical New Patient with Denny Armani [employer] 03/17/2021 Diabetes Risk Test Score was one score 03/17/2021 Medical New Patient with Denny Armani [employer] 03/17/2021 Hypertension Medical New Patient with Denny Armani [employer] 03/17/2021 Morbid obesity Medical New Patient with Denny Armani [employer] 03/17/2021 Post-traumatic stress disorder Medical N ew Patient with Denny Armani [employer] 03/17/2021 Z68.42 - Body mass index [BM I] 45.0-49.9, adult Medical New Patient with Denny Armani [employer] 03/17/2021 [facility] Work Phone: 1(151) 763-698907-26-2021 History general Narrative - Reported Includes: Medical History in patient's chart Description Last Updated Chronic illness 05/17/2021 Exposure to COVID-19 04/23/2021 Previous hospitalizations 04/23/2021 History of gynecologic disorder 03/17/20 21 History of Polycystic Ovarian Syndrome ( PCOS) 03/17/2021 History of anxiety disorder NOS 03/17/20 21 History of migraine headache 03/17/2021 History of psychiatric disorders biopola r disorder 03/17/2021 [facility] Work Phone: 1(416) 248-202107-24-2021 Evaluation note Includes: Assessments for all patient encounters Findings Encounter Date 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 05/15/2021 Mood disorders, NOS per blaze ent reported history Established Patient with Kinga Short LISWS 04/23/2021 Post-traumatic stress disorder Establ ished Patient with Kinga Short LISWS 04/23/2021 Morbid obesity Medical Established Patient with Denny Armani [employer] 04/23/2021 Otitis externa Medical Established Patient with Denny Armani [employer] 04/23/2021 Z68.42 - Body mass index [BM I] 45.0-49.9, adult Medical Established Patient with Denny Armani [employer] 04/23/2021 Post-traumatic stress disorder Establ ished Patient with Kinga Short LISWS 04/01/2021 Morbid obesity Medical Established Patient with Denny Armani [employer] 04/01/2021 Z68.42 - Body mass index [BM I] 45.0-49.9, adult Medical Established Patient with Denny Armani [employer] 04/01/2021 Post-traumatic stress disorder Establ ished Patient with Kinga Short LISWS 03/17/2021 Assessment of visit for: lloyd strange for human immunodeficiency virus Medical New Patient with Denny Armani [employer] 03/17/2021 Diabetes Risk Test Score was one score 03/17/2021 Medical New Patient with Denny Armani [employer] 03/17/2021 Hypertension Medical New Patient with Denny Armani [employer] 03/17/2021 Morbid obesity Medical New Patient with Denny Armani [employer] 03/17/2021 Post-traumatic stress disorder Medical N ew Patient with Dennyartem Lomeli [employer] 03/17/2021 Z68.42 - Body mass index [BM I] 45.0-49.9, adult Medical New Patient with Dennyartem Lomeli [employer] 03/17/2021 [facility] Work Phone: 1(322) 226-378807-02-2021 Evaluation note Includes: Assessments for all patient encounters Findings Encounter Date Mood disorders, NOS per blaze ent reported history BH Established Patient with Kinga Short LISWS 04/23/2021 Post-traumatic stress disorder BH Establ ished Patient with Kinga Short LISWS 04/23/2021 Morbid obesity Medical Established Patient with Denny Armani [employer] 04/23/2021 Otitis externa Medical Established Patient with Denny Armani [employer] 04/23/2021 Z68.42 - Body mass index [BM I] 45.0-49.9, adult Medical Established Patient with Denny Armani [employer] 04/23/2021 Post-traumatic stress disorder BH Establ ished Patient with Kinga Short LISWS 04/01/2021 Morbid obesity Medical Established Patient with Denny Armani [employer] 04/01/2021 Z68.42 - Body mass index [BM I] 45.0-49.9, adult Medical Established Patient with Denny Armani [employer] 04/01/2021 Post-traumatic stress disorder BH Establ ished Patient with Kinga Short LISWS 03/17/2021 Assessment of visit for: lloyd strange for human immunodeficiency virus Medical New Patient with Dennyartem Lomeli [employer] 03/17/2021 Diabetes Risk Test Score was one score 03/17/2021 Medical New Patient with Denny Armani [employer] 03/17/2021 Hypertension Medical New Patient with Denny Armani [employer] 03/17/2021 Morbid obesity Medical New Patient with Denny Armani [employer] 03/17/2021 Post-traumatic stress disorder Medical N ew Patient with Dennyartem Lomeli [employer] 03/17/2021 Z68.42 - Body mass index [BM I] 45.0-49.9, adult Medical New Patient with Dennyartem Lomeli [employer] 03/17/2021 [facility] Work Phone: 1(410) 742-526507-02-2021 History general Narrative - Reported Includes: Medical History in patient's chart Description Last Updated Exposure to COVID-19 04/23/2021 Previous hospitalizations 04/23/2021 History of gynecologic disorder 03/17/20 21 History of Polycystic Ovarian Syndrome ( PCOS) 03/17/2021 History of anxiety disorder NOS 03/17/20 21 History of migraine headache 03/17/2021 History of psychiatric disorders biopola r disorder 03/17/2021 [facility] Work Phone: 1(569) 886-121907-02-2021 History general Narrative - Reported Includes: Medical History in patient's chart Description Last Updated Chronic illness 05/17/2021 Exposure to COVID-19 04/23/2021 Previous hospitalizations 04/23/2021 History of gynecologic disorder 03/17/20 21 History of Polycystic Ovarian Syndrome ( PCOS) 03/17/2021 History of anxiety disorder NOS 03/17/20 21 History of migraine headache 03/17/2021 History of psychiatric disorders biopola r disorder 03/17/2021 [facility] Work Phone: 1(168) 807-530006-10-2021 Evaluation note Includes: Assessments for all patient encounters Findings Encounter Date Morbid obesity Medical Established Patient with Denny Armani [employer] 04/01/2021 Z68.42 - Body mass index [BM I] 45.0-49.9, adult Medical Established Patient with Denny Armani [employer] 04/01/2021 Post-traumatic stress disorder Tuan rabago Patient with Kinga Short LISWS 03/17/2021 Assessment of visit for: lloyd mcgillning for human immunodeficiency virus Medical New Patient with Denny Armani [employer] 03/17/2021 Diabetes Risk Test Score was one score 03/17/2021 Medical New Patient with Denny Armani [employer] 03/17/2021 Hypertension Medical New Patient with Denny Armani [employer] 03/17/2021 Morbid obesity Medical New Patient with Denny Armani [employer] 03/17/2021 Post-traumatic stress disorder Medical N ew Patient with Denny Armani [employer] 03/17/2021 Z68.42 - Body mass index [BM I] 45.0-49.9, adult Medical New Patient with Denny Armani [employer] 03/17/2021 [facility] Work Phone: 1([phone]) [phone] Evaluation note Includes: Assessments for all patient [...] New Patient with Denny Lomeli CNP 03/17/2021 [facility] Work Phone: 1(657) 601-586205-26-2021 History general Narrative - Reported Includes: Medical History in patient's chart Description Last Updated History of gynecologic disorder 03/17/20 21 History of Polycystic Ovarian Syndrome ( PCOS) 03/17/2021 History of anxiety disorder NOS 03/17/20 21 History of migraine headache 03/17/2021 History of psychiatric disorders biopola r disorder 03/17/2021 [facility] Work Phone: 1(414) 325-179705-26-2021 History general Narrative - Reported Includes: Medical History in patient's chart Description Last Updated Exposure to COVID-19 04/23/2021 Previous hospitalizations 04/23/2021 History of gynecologic disorder 03/17/20 21 History of Polycystic Ovarian Syndrome ( PCOS) 03/17/2021 History of anxiety disorder NOS 03/17/20 21 History of migraine headache 03/17/2021 History of psychiatric disorders biopola r disorder 03/17/2021 [facility] Work Phone: Evaluation note* Diagnosis Depression with suicidal ideation- [facility] note Includes: Assessments for all patient encounters Findings Encounter Date Morbid obesity Medical Established Patient with Denny Lomeli CNP 04/23/2021 Otitis externa Medical Established Patient with Denny Lomeli CNP 04/23/2021 Z68.42 - Body mass index [BM I] 45.0-49.9, adult Medical Established Patient with Denny Armani [employer] 04/23/2021 Post-traumatic stress disorder BH Establ ished Patient with Kinga Short LISWS 04/01/2021 Morbid obesity Medical Established Patient with Denny Armani [employer] 04/01/2021 Z68.42 - Body mass index [BM I] 45.0-49.9, adult Medical Established Patient with Denny Armani [employer] 04/01/2021 Post-traumatic stress disorder BH Establ ished Patient with Kinga Short LISWS 03/17/2021 Assessment of visit for: lloyd strange for human immunodeficiency virus Medical New Patient with Denny Armani [employer] 03/17/2021 Diabetes Risk Test Score was one score 03/17/2021 Medical New Patient with Denny Armani [employer] 03/17/2021 Hypertension Medical New Patient with Denny Armani [employer] 03/17/2021 Morbid obesity Medical New Patient with Denny Armani [employer] 03/17/2021 Post-traumatic stress disorder Medical N ew Patient with Denny Armani [employer] 03/17/2021 Z68.42 - Body mass index [BM I] 45.0-49.9, adult Medical New Patient with Denny Armani [employer] 03/17/2021 [facility] Work Phone: Evaluation note* Diagnosis Anxiety state- Primary Anxiety state, unspecified documented in this encounter [employer] Phone: evaluation note* Diagnosis Bipolar 1 disorder (HCC)- Primary Bipolar I disorder, most recent episode (or current) unspecified Homicidal ideation documented in this encounter [employer] Phone: evaluation note* Diagnosis Tachycardia Tachycardia, unspecified documented in this encounter [employer] Phone: evaluation note Includes: Assessments for all patient encounters Findings Encounter Date [D50.9 - Iron deficiency ane eduardo, unspecified] iron deficiency anemia Chart Update with Denny Lomeli [employer] 07/29/2024 Last Documented On 4 12:07PM ; [facility] Attention-deficit hyperactivity disorder Established Patient with Sarai Alberts METROLOGY TECHNICIAN 07/18/2024 Last Documented On 4 4:15PM ; [facility] Bipolar I disorder, most rec ent episode, depressed - mild Established Patient with Sarai Alberts METROLOGY TECHNICIAN 07/18/2024 Last Documented On 4 4:15PM ; [facility] Nicotine dependence Established Patient with Sarai Alberts METROLOGY TECHNICIAN 07/18/2024 Last Documented On 4 4:15PM ; [facility] Post-traumatic stress disorder Establ ished Patient with Sarai Alberts METROLOGY TECHNICIAN 07/18/2024 Last Documented On 4 4:15PM ; [facility] [Z68.43 - Body mass index [B VA] 50.0-59.9, adult] assessment of body mass index Medical Established Patient with Denny Armani [employer] M[employer]ER 07/18/2024 Last Documented On 4 1:56PM ; [facility] Bipolar I disorder, most rec ent episode, depressed - mild Medical Established Patient with Denny Armani [employer] M[employer]ER 07/18/2024 Last Documented On 4 1:56PM ; [facility] Caries Medical Established Patient with Denny Armani [employer] 07/18/2024 Last Documented On 4 1:56PM ; [facility] Encounter for Immunization Medical Estab lished Patient with Denny Armani [employer] 07/18/2024 Last Documented On 4 1:56PM ; [facility] Type 2 diabetes mellitus wit hout complication Medical Established Patient with Denny Armani [employer] M[employer]ER 07/18/2024 Last Documented On 4 1:56PM ; [facility] Attention-deficit hyperactivity disorder Established Patient with Kinga Short LISWS 06/13/2024 Last Documented On 4 3:28PM ; [facility] Bipolar I disorder, most rec ent episode, depressed - mild Established Patient with Kinga Short LISWS 06/13/2024 Last Documented On 4 3:28PM ; [facility] Post-traumatic stress disorder Establ ished Patient with Kinga Short LISWS 06/13/2024 Last Documented On 4 3:28PM ; [facility] [E11.9 - Type 2 diabetes gloria litus without complications] type 2 diabetes mellitus Medical Established Patient with Denny Armani [employer] 06/13/2024 Last Documented On 4 7:36PM ; [facility] [F41.1 - Generalized anxiety disorder] generalized anxiety disorder Medical Established Patient with Denny Lomeli CNP 06/13/2024 Last Documented On 4 7:36PM ; [facility] [I10 - Essential (primary) hypertension] essential hypertension Medical Established Patient with Denny Lomeli CNP 06/13/2024 Last Documented On 4 7:36PM ; [facility] [N94.6 - Dysmenorrhea, unspe cified] dysmenorrhea Medical Established Patient with Denny Lomeli CNP 06/13/2024 Last Documented On 4 7:36PM ; [facility] [Z68.43 - Body mass index [B VA] 50.0-59.9, adult] assessment of body mass index Medical Established Patient with Denny Lomeli CNP 06/13/2024 Last Documented On 4 7:36PM ; [facility] Encounter for Immunization Medical Estab lished Patient with Denny Lomeli CNP 06/13/2024 Last Documented On 4 7:36PM ; [facility] Venipuncture was performed Medical Estab lished Patient with Denny Lomeli CNP 06/13/2024 Last Documented On 4 7:36PM ; [facility] Attention-deficit hyperactivity disorder Established Patient with Kinga Short LISWS 04/10/2024 Last Documented On 4 10:10AM ; [facility] Bipolar I disorder, most rec ent episode, depressed - mild BH Established Patient with Kinga Short LISWS 04/10/2024 Last Documented On 4 10:10AM ; [facility] Post-traumatic stress disorder Establ ished Patient with Kinga Short LISWS 04/10/2024 Last Documented On 4 10:10AM ; [facility] [D64.9 - Anemia, unspecified] anemia Med ical Established Patient with Denny Lomeli [employer] 04/10/2024 Last Documented On 4 6:51PM ; [facility] [Z68.43 - Body mass index [B VA] 50.0-59.9, adult] assessment of body mass index Medical Established Patient with Denny Lomeli [employer] 04/10/2024 Last Documented On 4 6:51PM ; [facility] Bipolar affective disorder, current episode depressed, mild Established Patient with Kinga Short LISWS 01/17/2024 Last Documented On 4 5:16PM ; [facility] Post-traumatic stress disorder BH Establ ished Patient with Kinga Short LISWS 01/17/2024 Last Documented On 4 5:16PM ; [facility] Undifferentiated attention d eficit disorder Established Patient with Kinga Short LISWS 01/17/2024 Last Documented On 4 5:16PM ; [facility] Visit for: screening for disorder BH Est [facility] Last Documented On 4 5:16PM ; [facility] [Z68.43 - Body mass index [B VA] 50.0-59.9, adult] assessment of body mass index Medical Established Patient with Dneny Lomeli [employer] 01/17/2024 Last Documented On 4 7:50PM ; [facility] Attention-deficit hyperactivity disorder Medical Established Patient with Denny Lomeli [employer] 01/17/2024 Last Documented On 4 7:50PM ; [facility] Diabetes Risk Test Score was three score 01/17/2024 Medical Established Patient with Denny Lomeli [employer] 01/17/2024 Last Documented On 4 7:50PM ; [facility] Visit for: screening for STD Medical Est ablished Patient with Denny Lomeli [employer] 01/17/2024 Last Documented On 4 7:50PM ; [facility] [Z68.32 - Body mass index [B VA] 32.0-32.9, adult] assessment of body mass index Medical Established Patient with Denny Lomeli [employer] 05/10/2023 Last Documented On 3 6:01PM ; [facility] Borderline personality disorder Medical Established Patient with Dennyartem Lomeli [employer] 05/10/2023 Last Documented On 3 6:01PM ; [facility] Screening for diabetes mellitus Medical Established Patient with Dennyartem Lomeli [employer] 05/10/2023 Last Documented On 3 6:01PM ; [facility] Assessment of body mass index Medical Es tablished Patient with Dennyartem Lomeli [employer] 08/12/2022 Last Documented On 2 2:45PM ; [facility] Bipolar affective disorder, current episode manic [facility] with Belkis Velarde [facility] 06/16/2022 Last Documented On 2 3:22PM ; [facility] Bipolar affective disorder, current episode manic BH Established Patient with Belkis Velarde [facility] 06/15/2022 Last Documented On 2 2:28PM ; [facility] Bipolar affective disorder, current episode depressed, severe with psychosis [facility] with Belkis Velarde [facility] 06/15/2022 Last Documented On 2 3:29PM ; [facility] Assessment of body mass inde x [Body mass index [BMI] 50.0-59.9, adult] Open Access - Established with Leah Monique [employer] 06/15/2022 Last Documented On 2 9:36AM ; [facility] Bipolar I disorder, most rec ent episode, manic Open Access - Established with Leah Monique [employer] 06/15/2022 Last Documented On 2 9:36AM ; [facility] Post-traumatic stress disorder BH Establ ished Patient with Belkis Velarde [facility] 06/08/2022 Last Documented On 2 3:20PM ; [facility] No cough Medical Established Patient with Denny Armani [employer] 06/08/2022 Last Documented On 2 4:04PM ; [facility] Z68.43 - Body mass index [BM I] 50.0-59.9, adult Medical Established Patient with Denny Armani [employer] 06/08/2022 Last Documented On 2 4:04PM ; [facility] Borderline personality disor kyree Pt reported hx of sx/dx Established Patient with Belkis Velarde [facility] 05/27/2022 Last Documented On 2 4:08PM ; [facility] Assessment of body mass inde x [Body mass index [BMI] 50.0-59.9, adult] Open Access - Established with Leah Monique [facility] [place] 05/27/2022 Last Documented On 2 7:41PM ; [facility] Diabetes Risk Test Score was three score 05/27/2022 Open Access - Established with Leah Monique [facility] [place] 05/27/2022 Last Documented On 2 7:41PM ; [facility] Bipolar I disorder, most rec ent episode, manic Established Patient with [facility] 07/15/2021 Last Documented On 1 1:35AM ; [facility] Borderline personality disorder Estab lished Patient with Eufemia Mcneil [facility] 07/15/2021 Last Documented On 1 1:35AM ; [facility] Post-traumatic stress disorder Establ ished Patient with Eufemia Mcneil [facility] 07/15/2021 Last Documented On 1 1:35AM ; [facility] Assessment of visit for: lloyd mcgillning for human immunodeficiency virus Medical Established Patient with Denny Armani [employer] 07/15/2021 Last Documented On 1 2:56PM ; [facility] Nicotine dependence Medical Established Patient with Denny Armani [facility] [place] 07/15/2021 Last Documented On 1 2:56PM ; [facility] Tachycardia Medical Established Patient with Denny Armani [facility] 07/15/2021 Last Documented On 1 2:56PM ; [facility] Z68.43 - Body mass index [BM I] 50.0-59.9, adult Medical Established Patient with Denny Armani [employer] 07/15/2021 Last Documented On 1 2:56PM ; [facility] Bipolar I disorder, most rec ent episode, manic Established Patient with Kinga Short LISWS 06/17/2021 Last Documented On 1 10:17AM ; [facility] Borderline personality disor kyree per patient reported history Established Patient with Kinga Short LISWS 06/17/2021 Last Documented On 1 10:17AM ; [facility] Nicotine dependence BH Established Patient with Kinga Short LISWS 06/17/2021 Last Documented On 1 10:17AM ; [facility] Post-traumatic stress disorder Establ ished Patient with Kinga Short LISWS 06/17/2021 Last Documented On 1 10:17AM ; [facility] Body mass index Medical Established Patient with Denny Armani [employer] 06/17/2021 Last Documented On 1 5:23PM ; [facility] Morbid obesity Medical Established Patient with Denny Armani [employer] 06/17/2021 Last Documented On 1 5:23PM ; [facility] Nicotine dependence uncomplicated Medica l Established Patient with Denny Armani [employer] 06/17/2021 Last Documented On 1 5:23PM ; [facility] Z68.42 - Body mass index [BM I] 45.0-49.9, adult Medical Established Patient with Denny Armani [employer] 06/17/2021 Last Documented On 1 5:23PM ; [facility] 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 Last Documented On 1 7:49AM ; [facility] Mood disorders, NOS per blaze ent reported history Established Patient with Kinga Short LISWS 04/23/2021 Last Documented On 1 7:15PM ; [facility] Post-traumatic stress disorder Establ ished Patient with Kinga Short LISWS 04/23/2021 Last Documented On 1 7:15PM ; [facility] Morbid obesity Medical Established Patient with Denny Armani [employer] 04/23/2021 Last Documented On 1 12:31PM ; [facility] Otitis externa Medical Established Patient with Denny Armani [employer] 04/23/2021 Last Documented On 1 12:31PM ; [facility] Z68.42 - Body mass index [BM I] 45.0-49.9, adult Medical Established Patient with Denny Armani [employer] 04/23/2021 Last Documented On 1 12:31PM ; [facility] Post-traumatic stress disorder Establ ished Patient with Kinga Short LISWS 04/01/2021 Last Documented On 1 10:05PM ; [facility] Morbid obesity Medical Established Patient with Denny Armani [employer] 04/01/2021 Last Documented On 1 4:45PM ; [facility] Z68.42 - Body mass index [BM I] 45.0-49.9, adult Medical Established Patient with Denny Armani [employer] 04/01/2021 Last Documented On 1 4:45PM ; [facility] Post-traumatic stress disorder Establ ished Patient with Kinga Short LISWS 03/17/2021 Last Documented On 1 11:59AM ; [facility] Assessment of visit for: lloyd mcgillning for human immunodeficiency virus Medical New Patient with Denny Armani [employer] 03/17/2021 Last Documented On 1 4:06PM ; [facility] Diabetes Risk Test Score was one score 03/17/2021 Medical New Patient with Denny Armani [employer] 03/17/2021 Last Documented On 1 4:06PM ; [facility] Hypertension Medical New Patient with Denny C chas [employer] 03/17/2021 Last Documented On 1 4:06PM ; [facility] Morbid obesity Medical New Patient with Denny C chas [employer] 03/17/2021 Last Documented On 1 4:06PM ; [facility] Post-traumatic stress disorder Medical New Patie nt with Denny Armani [employer] 03/17/2021 Last Documented On 1 4:06PM ; [facility] Z68.42 - Body mass index [BM I] 45.0-49.9, adult Medical New Patient with Denny Armani [employer] 03/17/2021 Last Documented On 1 4:06PM ; [facility] Work Phone: History of Present illness Narrative History of Present Illness not supported for this document type No History of Present Illness RecordedHealth [facility] Work Phone: Hospital Discharge instructions* Instructions* Blanco [...] sent through Care Everywhere. * [facility] ([place] Instructions Instructions not supported for this document type No [facility] Work Phone: Instructions Includes: Instructions for all patient encounters Education and Decision Aids were provided during visit for: Counseling/education [Use fo r free text] Last Documented On 4 7:40PM ; [facility] Discussed nutritional needs teach healthy choices including fruits and vegetables Last Documented On 4 7:14PM ; [facility] Patient education about a pr oper diet Last Documented On 4 7:14PM ; [facility] Discussed concerns about exe rcise : promote physical activity Last Documented On 4 7:14PM ; [facility] Not requesting contraception Last Documented On 4 7:14PM ; [facility] Discussed nutritional needs teach healthy choices including fruits and vegetables Last Documented On 3 5:15PM ; [facility] Patient education about a pr oper diet Last Documented On 3 5:15PM ; [facility] Discussed concerns about exe rcise : promote physical activity Last Documented On 3 5:15PM ; [facility] Discussed nutritional needs teach healthy choices including fruits and vegetables Last Documented On 2 1:42PM ; [facility] Patient education about a pr oper diet Last Documented On 2 1:42PM ; [facility] Discussed concerns about exe rcise : promote physical activity Last Documented On 2 1:42PM ; [facility] offered active listening and supportive feedback; normalized emotions and feelings, also provided pt time to process any current stressors. ~Promoted and encouraged follow-through with scheduling psychiatric services Last Documented On 2 3:21PM ; [facility] provided supportive, empa thic listening and reflective feedback. ~Explored, encouraged, and supported the pt to discuss current sx/mood, assess risk for harm/need, coping mechanisms, support network and safety planning. ~Supported pt's plan to f/up with Dr. Carney, as planned at [place], [place]. ~Encouraged pt to use safety plan, if needed to ensure she remains safe Last Documented On 2 2:27PM ; [facility] Discussed nutritional needs teach healthy choices including fruits and vegetables Last Documented On 2 3:20PM ; [facility] Patient education about a pr oper diet Last Documented On 2 3:20PM ; [facility] Discussed concerns about exe rcise : promote physical activity ~ ~Will restart trazodone and prazosin ~ ~Patient is planning to have brother stay with her for a few days for emotional support ~ ~Follow up with PCP at next scheduled visit ~ ~Call psychiatrist office to schedule appt ~ ~Call counselor Last Documented On 2 9:35AM ; [facility] Provided supportive listenin g and empathic feedback; encouraged, explored, and supported the pt as she processed current symptoms, Issues, and concerns. ~Discussed past tx and explored current needs/options. Acknowledged and validated pt's thoughts and emotions. ~Explored coping mechanisms and support network; utilized opportunity for safety planning; promoted seeking positive support and seeking help, as needed Last Documented On 2 3:28PM ; [facility] provided active listenin g, support and helped pt process though current symptoms and stressor(s). Discussed and explored past effectiveness of medication; identified objectives and future goals; promoted use of healthy coping mechanisms, and self-care practices Last Documented On 2 3:19PM ; [facility] Reviewed side effects and Ri sks/Benefits analysis Last Documented On 2 3:19PM ; [facility] Discussed nutritional needs teach healthy choices including fruits and vegetables Last Documented On 2 3:15PM ; [facility] Patient education about a pr oper diet Last Documented On 2 3:15PM ; [facility] Discussed concerns about exe rcise : promote physical activity Last Documented On 2 3:15PM ; [facility] introduced pt to HPWO in tegrated model [...] needed Last Documented On 2 4:07PM ; [facility] Discussed nutritional needs teach healthy choices including fruits and vegetables Last Documented On 2 3:15PM ; [facility] Patient education about a pr oper diet Last Documented On 2 3:15PM ; [facility] Inquiry and counseling about medication administration and compliance Last Documented On 2 7:37PM ; [facility] Discussed concerns about exe rcise : promote physical activity Last Documented On 2 3:15PM ; [facility] Patient goals discussed Last Documented On 2 7:37PM ; [facility] Ansewred pt's questions re B orderlline Personality D/O and Bipolar D/O raised by psychiatrist at [place]. ~Validated and normalized patient?s feelings while assisting to process recent events Last Documented On 1 1:33AM ; [facility] Discussed nutritional needs teach healthy choices including fruits and vegetables Last Documented On 1 2:04PM ; [facility] Patient education about a pr oper diet Last Documented On 1 2:04PM ; [facility] Discussed concerns about exe rcise : promote physical activity Last Documented On 1 2:04PM ; [facility] provided active listenin g, support and helped patient process through current symptoms and stressors with ongoing mental health concerns and medication changes. [facility] discussed coping skills and supports that patient is implementing. discussed implementing coping skills as discussed with counseling and attending weekly appointments as scheduled with counselor. Patient was encouraged to continue writing down concerns with medications and discuss with providers. [facility] reminded patient of crisis resources should they be needed. Patient reports having crisis resources and could return to ER Last Documented On 1 10:17AM ; [facility] Patient education about a pr oper diet Last Documented On 1 5:17PM ; [facility] Patient education about meal planning Last Documented On 5:17PM ; [facility] Education about changing eat ing habits Last Documented On 5:17PM ; [facility] Patient education about high fiber diet Last Documented On 5:17PM ; [facility] Patient education about low fat diet Last Documented On 1 5:17PM ; [facility] Patient education about low cholesterol diet Last Documented On 1 5:17PM ; [facility] Patient education about low carbohydrate diet Last Documented On 1 5:17PM ; [facility] Patient education about high protein diet Last Documented On 5:17PM ; [facility] offered active and suppo rtive listening, normalized emotions and feelings, and processed current stressors. [facility] discussed resources for finding a counselor and provided list of local resources. [facility] discussed patients coping skills and supports and encouraged patient to continue to implement. [facility] reminded patient of crisis resources should they be needed Last Documented On 1 7:15PM ; [facility] Discussed nutritional needs teach healthy choices including fruits and vegetables Last Documented On 1 11:38AM ; [facility] Patient education about a pr oper diet Last Documented On 1 11:38AM ; [facility] Patient education about a pr oper diet Last Documented On 1 12:19PM ; [facility] Patient education about meal planning Last Documented On 1 12:19PM ; [facility] Education about changing eat ing habits Last Documented On 1 12:19PM ; [facility] Patient education about high fiber diet Last Documented On 1 12:19PM ; [facility] Patient education about low fat diet Last Documented On 1 12:19PM ; [facility] Patient education about low cholesterol diet Last Documented On 1 12:19PM ; [facility] Patient education about low carbohydrate diet Last Documented On 1 12:19PM ; [facility] Patient education about high protein diet Last Documented On 1 12:19PM ; [facility] Discussed concerns about exe rcise : promote physical activity Last Documented On 1 11:38AM ; [facility], support and helped patient process through current symptoms and stressors related to family conflict. ~P discussed coping skills and supports with patient that can be implemented and reminded patient of ways to access additional resources. ~P discussed crisis resources and plan. Patient has crisis resources still available should they be needed Last Documented On 1 7:04PM ; [facility] Discussed nutritional needs teach healthy choices including fruits and vegetables Last Documented On 1 3:57PM ; [facility] Patient education about a pr oper diet Last Documented On 1 3:57PM ; [facility] Discussed concerns about exe rcise : promote physical activity Last Documented On 1 3:57PM ; [facility] integrated model of care. [facility] and PCP [...] down Last Documented On 1 11:46AM ; [facility] Discussed nutritional needs teach healthy choices including fruits and vegetables Last Documented On 1 2:11PM ; [facility] Patient education about a pr oper diet Last Documented On 1 2:11PM ; [facility] Discussed concerns about exe rcise : promote physical activity Last Documented On 1 2:11PM ; [facility] Work Phone: Instructions Includes: Instructions for all patient encounters Education and Decision Aids were provided during visit for: P offered active and suppo rtive listening and processed current stressors related to getting medications. ~P discussed coping skills and supports to implement in daily routine. ~[facility] discussed progress patient has felt they have made recently and encouraged continued follow-up with providers to address health Last Documented On 4 5:16PM ; [facility] Discussed nutritional needs teach healthy choices including fruits and vegetables Last Documented On 4 7:14PM ; [facility] Patient education about a pr oper diet Last Documented On 4 7:14PM ; [facility] Discussed concerns about exe rcise : promote physical activity Last Documented On 4 7:14PM ; [facility] Not requesting contraception Last Documented On 4 7:14PM ; [facility] Discussed nutritional needs teach healthy choices including fruits and vegetables Last Documented On 3 5:15PM ; [facility] Patient education about a pr oper diet Last Documented On 3 5:15PM ; [facility] Discussed concerns about exe rcise : promote physical activity Last Documented On 3 5:15PM ; [facility] Discussed nutritional needs teach healthy choices including fruits and vegetables Last Documented On 2 1:42PM ; [facility] Patient education about a pr oper diet Last Documented On 2 1:42PM ; [facility] Discussed concerns about exe rcise : promote physical activity Last Documented On 2 1:42PM ; [facility] offered active listening and supportive feedback; normalized emotions and feelings, also provided pt time to process any current stressors. ~Promoted and encouraged follow-through with scheduling psychiatric services Last Documented On 2 3:21PM ; [facility] provided supportive, empa thic listening and reflective feedback. ~Explored, encouraged, and supported the pt to discuss current sx/mood, assess risk for harm/need, coping mechanisms, support network and safety planning. ~Supported pt's plan to f/up with Dr. Carney, as planned at [place], [place]. ~Encouraged pt to use safety plan, if needed to ensure she remains safe Last Documented On 2 2:27PM ; [facility] Discussed nutritional needs teach healthy choices including fruits and vegetables Last Documented On 2 3:20PM ; [facility] Patient education about a pr oper diet Last Documented On 2 3:20PM ; [facility] Discussed concerns about exe rcise : promote physical activity ~ ~Will restart trazodone and prazosin ~ ~Patient is planning to have brother stay with her for a few days for emotional support ~ ~Follow up with PCP at next scheduled visit ~ ~Call psychiatrist office to schedule appt ~ ~Call counselor Last Documented On 2 9:35AM ; [facility] Provided supportive listenin g and empathic feedback; encouraged, explored, and supported the pt as she processed current symptoms, Issues, and concerns. ~Discussed past tx and explored current needs/options. Acknowledged and validated pt's thoughts and emotions. ~Explored coping mechanisms and support network; utilized opportunity for safety planning; promoted seeking positive support and seeking help, as needed Last Documented On 2 3:28PM ; [facility], support and helped pt process though current symptoms and stressor(s). Discussed and explored past effectiveness of medication; identified objectives and future goals; promoted use of healthy coping mechanisms, and self-care practices Last Documented On 2 3:19PM ; [facility] Reviewed side effects and Ri sks/Benefits analysis Last Documented On 2 3:19PM ; [facility] Discussed nutritional needs teach healthy choices including fruits and vegetables Last Documented On 2 3:15PM ; [facility] Patient education about a pr oper diet Last Documented On 2 3:15PM ; [facility] Discussed concerns about exe rcise : promote physical activity Last Documented On 2 3:15PM ; [facility] introduced pt to HPWO in tegrated model of care ~P offered active listening and supportive feedback; normalized emotions and feelings, also provided pt time to process any current stressors ~[facility] discussed potential benefits of counseling and supported re-engaging, as needed. ~[facility] encouraged pt to continue to make time to implement self-care regimen and use coping methods, as needed Last Documented On 2 4:07PM ; [facility] Discussed nutritional needs teach healthy choices including fruits and vegetables Last Documented On 2 3:15PM ; [facility] Patient education about a pr oper diet Last Documented On 2 3:15PM ; [facility] Inquiry and counseling about medication administration and compliance Last Documented On 2 7:37PM ; [facility] Discussed concerns about exe rcise : promote physical activity Last Documented On 2 3:15PM ; [facility] Patient goals discussed Last Documented On 2 7:37PM ; [facility] Ansewred pt's questions re B orderlline Personality D/O and Bipolar D/O raised by psychiatrist at [place]. ~Validated and normalized patient?s feelings while assisting to process recent events Last Documented On 1 1:33AM ; [facility] Discussed nutritional needs teach healthy choices including fruits and vegetables Last Documented On 1 2:04PM ; [facility] Patient education about a pr oper diet Last Documented On 1 2:04PM ; [facility] Discussed concerns about exe rcise : promote physical activity Last Documented On 1 2:04PM ; [facility] provided active listenin g, support and helped patient process through current symptoms and stressors with ongoing mental health concerns and medication changes. ~[facility] discussed coping skills and supports that patient is implementing. discussed implementing coping skills as discussed with counseling and attending weekly appointments as scheduled with counselor. Patient was encouraged to continue writing down concerns with medications and discuss with providers. [facility] reminded patient of crisis resources should they be needed. Patient reports having crisis resources and could return to ER Last Documented On 1 10:17AM ; [facility] Patient education about a pr oper diet Last Documented On 1 5:17PM ; [facility] Patient education about meal planning Last Documented On 5:17PM ; [facility] Education about changing eat ing habits Last Documented On 1 5:17PM ; [facility] Patient education about high fiber diet Last Documented On 5:17PM ; [facility] Patient education about low fat diet Last Documented On 5:17PM ; [facility] Patient education about low cholesterol diet Last Documented On 5:17PM ; [facility] Patient education about low carbohydrate diet Last Documented On 5:17PM ; [facility] Patient education about high protein diet Last Documented On 5:17PM ; [facility] offered active and suppo rtive listening, normalized emotions and feelings, and processed current stressors. [facility] discussed resources for finding a counselor and provided list of local resources. [facility] discussed patients coping skills and supports and encouraged patient to continue to implement. [facility] reminded patient of crisis resources should they be needed Last Documented On 1 7:15PM ; [facility] Discussed nutritional needs teach healthy choices including fruits and vegetables Last Documented On 1 11:38AM ; [facility] Patient education about a pr oper diet Last Documented On 1 11:38AM ; [facility] Patient education about a pr oper diet Last Documented On 1 12:19PM ; [facility] Patient education about meal planning Last Documented On 1 12:19PM ; [facility] Education about changing eat ing habits Last Documented On 1 12:19PM ; [facility] Patient education about high fiber diet Last Documented On 1 12:19PM ; [facility] Patient education about low fat diet Last Documented On 1 12:19PM ; [facility] Patient education about low cholesterol diet Last Documented On 1 12:19PM ; [facility] Patient education about low carbohydrate diet Last Documented On 1 12:19PM ; [facility] Patient education about high protein diet Last Documented On 1 12:19PM ; [facility] Discussed concerns about exe rcise : promote physical activity Last Documented On 1 11:38AM ; [facility] provided active listenin g, support and helped patient process through current symptoms and stressors related to family conflict. ~[facility] discussed coping skills and supports with patient that can be implemented and reminded patient of ways to access additional resources. ~[facility] discussed crisis resources and plan. Patient has crisis resources still available should they be needed Last Documented On 1 7:04PM ; [facility] Discussed nutritional needs teach healthy choices including fruits and vegetables Last Documented On 1 3:57PM ; [facility] Patient education about a pr oper diet Last Documented On 1 3:57PM ; [facility] Discussed concerns about exe rcise : promote physical activity Last Documented On 1 3:57PM ; [facility] integrated model of care. [facility] and PCP reassured patient of not sharing information with anyone unless she has signed a release for us to do so. ~[facility] provided active listening, support and helped patient process through current symptoms and stressors. ~[facility] discussed establishing counseling and psychiatry. [facility] discussed EMDR therapy and ways to find provider who does this type of therapy. ~[facility] discussed crisis resources should mood worsen, [facility] provided text hotline number for crisis. [facility] reviewed crisis plan with patient and patient is able to contact positive supports and family when feeling down Last Documented On 1 11:46AM ; [facility] Discussed nutritional needs teach healthy choices including fruits and vegetables Last Documented On 1 2:11PM ; [facility] Patient education about a pr oper diet Last Documented On 1 2:11PM ; [facility] Discussed concerns about exe rcise : promote physical activity Last Documented On 1 2:11PM ; [facility] Work Phone: Instructions Includes: Instructions [...] health Last Documented On 4 5:16PM ; [facility] Discussed nutritional needs teach healthy choices including fruits and vegetables Last Documented On 4 7:14PM ; [facility] Patient education about a pr oper diet Last Documented On 4 7:14PM ; [facility] Discussed concerns about exe rcise : promote physical activity Last Documented On 4 7:14PM ; [facility] Not requesting contraception Last Documented On 4 7:14PM ; [facility] Discussed nutritional needs teach healthy choices including fruits and vegetables Last Documented On 3 5:15PM ; [facility] Patient education about a pr oper diet Last Documented On 3 5:15PM ; [facility] Discussed concerns about exe rcise : promote physical activity Last Documented On 3 5:15PM ; [facility] Discussed nutritional needs teach healthy choices including fruits and vegetables Last Documented On 2 1:42PM ; [facility] Patient education about a pr oper diet Last Documented On 2 1:42PM ; [facility] Discussed concerns about exe rcise : promote physical activity Last Documented On 2 1:42PM ; [facility] listening and supportive feedback; normalized emotions and feelings, also provided pt time to process any current stressors. ~Promoted and encouraged follow-through with scheduling psychiatric services Last Documented On 2 3:21PM ; [facility] provided supportive, empa thic listening and reflective feedback. ~Explored, encouraged, and supported the pt to discuss current sx/mood, assess risk for harm/need, coping mechanisms, support network and safety planning. ~Supported pt's plan to f/up with Dr. Carney, as planned at [place], [place]. ~Encouraged pt to use safety plan, if needed to ensure she remains safe Last Documented On 2 2:27PM ; [facility] Discussed nutritional needs teach healthy choices including fruits and vegetables Last Documented On 2 3:20PM ; [facility] Patient education about a pr oper diet Last Documented On 2 3:20PM ; [facility] Discussed concerns about exe rcise : promote physical activity ~ ~Will restart trazodone and prazosin ~ ~Patient is planning to have brother stay with her for a few days for emotional support ~ ~Follow up with PCP at next scheduled visit ~ ~Call psychiatrist office to schedule appt ~ ~Call counselor Last Documented On 2 9:35AM ; [facility] Provided supportive listenin g and empathic feedback; encouraged, explored, and supported the pt as she processed current symptoms, Issues, and concerns. ~Discussed past tx and explored current needs/options. Acknowledged and validated pt's thoughts and emotions. ~Explored coping mechanisms and support network; utilized opportunity for safety planning; promoted seeking positive support and seeking help, as needed Last Documented On 2 3:28PM ; [facility] provided active listenin g, support and helped pt process though current symptoms and stressor(s). Discussed and explored past effectiveness of medication; identified objectives and future goals; promoted use of healthy coping mechanisms, and self-care practices Last Documented On 2 3:19PM ; [facility] Reviewed side effects and Ri sks/Benefits analysis Last Documented On 2 3:19PM ; [facility] Discussed nutritional needs teach healthy choices including fruits and vegetables Last Documented On 2 3:15PM ; [facility] Patient education about a pr oper diet Last Documented On 2 3:15PM ; [facility] Discussed concerns about exe rcise : promote physical activity Last Documented On 2 3:15PM ; [facility] introduced pt to HPWO in tegrated model of care ~P offered active listening and supportive feedback; normalized emotions and feelings, also provided pt time to process any current stressors ~[facility] discussed potential benefits of counseling and supported re-engaging, as needed. ~P encouraged pt to continue to make time to implement self-care regimen and use coping methods, as needed Last Documented On 2 4:07PM ; [facility] Discussed nutritional needs teach healthy choices including fruits and vegetables Last Documented On 2 3:15PM ; [facility] Patient education about a pr oper diet Last Documented On 2 3:15PM ; [facility] Inquiry and counseling about medication administration and compliance Last Documented On 2 7:37PM ; [facility] Discussed concerns about exe rcise : promote physical activity Last Documented On 2 3:15PM ; [facility] Patient goals discussed Last Documented On 2 7:37PM ; [facility] Ansewred pt's questions re B orderlline Personality D/O and Bipolar D/O raised by psychiatrist at [place]. ~Validated and normalized patient?s feelings while assisting to process recent events Last Documented On 1 1:33AM ; [facility] Discussed nutritional needs teach healthy choices including fruits and vegetables Last Documented On 1 2:04PM ; [facility] Patient education about a pr oper diet Last Documented On 1 2:04PM ; [facility] Discussed concerns about exe rcise : promote physical activity Last Documented On 1 2:04PM ; [facility] provided active listenin g, support and helped patient process through current symptoms and stressors with ongoing mental health concerns and medication changes. ~[facility] discussed coping skills and supports that patient is implementing. discussed implementing coping skills as discussed with counseling and attending weekly appointments as scheduled with counselor. Patient was encouraged to continue writing down concerns with medications and discuss with providers. ~[facility] reminded patient of crisis resources should they be needed. Patient reports having crisis resources and could return to ER Last Documented On 1 10:17AM ; [facility] Patient education about a pr oper diet Last Documented On 1 5:17PM ; [facility] Patient education about meal planning Last Documented On 5:17PM ; [facility] Education about changing eat ing habits Last Documented On 1 5:17PM ; [facility] Patient education about high fiber diet Last Documented On 5:17PM ; [facility] Patient education about low fat diet Last Documented On 5:17PM ; [facility] Patient education about low cholesterol diet Last Documented On 5:17PM ; [facility] Patient education about low carbohydrate diet Last Documented On 5:17PM ; [facility] Patient education about high protein diet Last Documented On 5:17PM ; [facility] offered active and suppo rtive listening, normalized emotions and feelings, and processed current stressors. ~[facility] discussed resources for finding a counselor and provided list of local resources. ~[facility] discussed patients coping skills and supports and encouraged patient to continue to implement. [facility] reminded patient of crisis resources should they be needed Last Documented On 7:15PM ; [facility] Discussed nutritional needs teach healthy choices including fruits and vegetables Last Documented On 11:38AM ; [facility] Patient education about a pr oper diet Last Documented On 11:38AM ; [facility] Patient education about a pr oper diet Last Documented On 12:19PM ; [facility] Patient education about meal planning Last Documented On 12:19PM ; [facility] Education about changing eat ing habits Last Documented On 12:19PM ; [facility] Patient education about high fiber diet Last Documented On 12:19PM ; [facility] Patient education about low fat diet Last Documented On 12:19PM ; [facility] Patient education about low cholesterol diet Last Documented On 12:19PM ; [facility] Patient education about low carbohydrate diet Last Documented On 1 12:19PM ; [facility] Patient education about high protein diet Last Documented On 1 12:19PM ; [facility] Discussed concerns about exe rcise : promote physical activity Last Documented On 1 11:38AM ; [facility] provided active listenin g, support and helped patient process through current symptoms and stressors related to family conflict. ~[facility] discussed coping skills and supports with patient that can be implemented and reminded patient of ways to access additional resources. ~[facility] discussed crisis resources and plan. Patient has crisis resources still available should they be needed Last Documented On 1 7:04PM ; [facility] Discussed nutritional needs teach healthy choices including fruits and vegetables Last Documented On 1 3:57PM ; [facility] Patient education about a pr oper diet Last Documented On 1 3:57PM ; [facility] Discussed concerns about exe rcise : promote physical activity Last Documented On 1 3:57PM ; [facility] integrated model of care. P and PCP reassured patient of not sharing information with anyone unless she has signed a release for us to do so. ~[facility] provided active listening, support and helped patient process through current symptoms and stressors. ~[facility] discussed establishing counseling and psychiatry. [facility] discussed EMDR therapy and ways to find provider who does this type of therapy. ~[facility] discussed crisis resources should mood worsen, [facility] provided text hotline number for crisis. [facility] reviewed crisis plan with patient and patient is able to contact positive supports and family when feeling down Last Documented On 1 11:46AM ; [facility] Discussed nutritional needs teach healthy choices including fruits and vegetables Last Documented On 1 2:11PM ; [facility] Patient education about a pr oper diet Last Documented On 1 2:11PM ; [facility] Discussed concerns about exe rcise : promote physical activity Last Documented On 1 2:11PM ; [facility] Work Phone: Instructions Includes: Instructions for all patient encounters Education and Decision Aids were provided during visit for: P offered active and suppo rtive listening and processed current stressors. ~[facility] discussed coping skills and supports that can be implemented to manage increased anxiety and stressors. [facility] discussed potential of resuming counseling, even if for monthly visits to process ongoing stressors. ~[facility] encouraged patient to follow- up on referrals as discussed with PCP Last Documented On 4 10:08AM ; [facility] Discussed nutritional needs teach healthy choices including fruits and vegetables Last Documented On 4 4:46PM ; [facility] Patient education about a pr oper diet Last Documented On 4 4:46PM ; [facility] Discussed concerns about exe rcise : promote physical activity Last Documented On 4 4:46PM ; [facility] Not requesting contraception Last Documented On 4 4:46PM ; [facility] offered active and suppo rtive listening and processed current stressors related to getting medications. ~[facility] discussed coping skills and supports to implement in daily routine. ~[facility] discussed progress patient has felt they have made recently and encouraged continued follow-up with providers to address health Last Documented On 4 5:16PM ; [facility] Discussed nutritional needs teach healthy choices including fruits and vegetables Last Documented On 4 7:14PM ; [facility] Patient education about a pr oper diet Last Documented On 4 7:14PM ; [facility] Discussed concerns about exe rcise : promote physical activity Last Documented On 4 7:14PM ; [facility] Not requesting contraception Last Documented On 4 7:14PM ; [facility] [facility] Discussed nutritional needs teach healthy choices including fruits and vegetables Last Documented On 3 5:15PM ; [facility] Patient education about a pr oper diet Last Documented On 3 5:15PM ; [facility] Discussed concerns about exe rcise : promote physical activity Last Documented On 3 5:15PM ; [facility] Discussed nutritional needs teach healthy choices including fruits and vegetables Last Documented On 2 1:42PM ; [facility] Patient education about a pr oper diet Last Documented On 2 1:42PM ; [facility] Discussed concerns about exe rcise : promote physical activity Last Documented On 2 1:42PM ; [facility] offered active listening and supportive feedback; normalized emotions and feelings, also provided pt time to process any current stressors. ~Promoted and encouraged follow-through with scheduling psychiatric services Last Documented On 2 3:21PM ; [facility] provided supportive, empa thic listening and reflective feedback. ~Explored, encouraged, and supported the pt to discuss current sx/mood, assess risk for harm/need, coping mechanisms, support network and safety planning. ~Supported pt's plan to f/up with Dr. Carney, as planned at [place], [place]. ~Encouraged pt to use safety plan, if needed to ensure she remains safe Last Documented On 2 2:27PM ; [facility] Discussed nutritional needs teach healthy choices including fruits and vegetables Last Documented On 2 3:20PM ; [facility] Patient education about a pr oper diet Last Documented On 2 3:20PM ; [facility] Discussed concerns about exe rcise : promote physical activity ~ ~Will restart trazodone and prazosin ~ ~Patient is planning to have brother stay with her for a few days for emotional support ~ ~Follow up with PCP at next scheduled visit ~ ~Call psychiatrist office to schedule appt ~ ~Call counselor Last Documented On 2 9:35AM ; [facility] Provided supportive listenin g and empathic feedback; encouraged, explored, and supported the pt as she processed current symptoms, Issues, and concerns. ~Discussed past tx and explored current needs/options. Acknowledged and validated pt's thoughts and emotions. ~Explored coping mechanisms and support network; utilized opportunity for safety planning; promoted seeking positive support and seeking help, as needed Last Documented On 2 3:28PM ; [facility] provided active listenin g, support and helped pt process though current symptoms and stressor(s). Discussed and explored past effectiveness of medication; identified objectives and future goals; promoted use of healthy coping mechanisms, and self-care practices Last Documented On 2 3:19PM ; [facility] Reviewed side effects and Ri sks/Benefits analysis Last Documented On 2 3:19PM ; [facility] Discussed nutritional needs teach healthy choices including fruits and vegetables Last Documented On 2 3:15PM ; [facility] Patient education about a pr oper diet Last Documented On 2 3:15PM ; [facility] Discussed concerns about exe rcise : promote physical activity Last Documented On 2 3:15PM ; [facility] introduced pt to HPWO in tegrated model [...] needed Last Documented On 2 4:07PM ; [facility] Discussed nutritional needs teach healthy choices including fruits and vegetables Last Documented On 2 3:15PM ; [facility] Patient education about a pr oper diet Last Documented On 2 3:15PM ; [facility] Inquiry and counseling about medication administration and compliance Last Documented On 2 7:37PM ; [facility] Discussed concerns about exe rcise : promote physical activity Last Documented On 2 3:15PM ; [facility] Patient goals discussed Last Documented On 2 7:37PM ; [facility] Ansewred pt's questions re B orderlline Personality D/O and Bipolar D/O raised by psychiatrist at [place]. ~Validated and normalized patient?s feelings while assisting to process recent events Last Documented On 1 1:33AM ; [facility] Discussed nutritional needs teach healthy choices including fruits and vegetables Last Documented On 1 2:04PM ; [facility] Patient education about a pr oper diet Last Documented On 1 2:04PM ; [facility] Discussed concerns about exe rcise : promote physical activity Last Documented On 1 2:04PM ; [facility] provided active listenin g, support and helped patient process through current symptoms and stressors with ongoing mental health concerns and medication changes. [facility] discussed coping skills and supports that patient is implementing. discussed implementing coping skills as discussed with counseling and attending weekly appointments as scheduled with counselor. Patient was encouraged to continue writing down concerns with medications and discuss with providers. [facility] reminded patient of crisis resources should they be needed. Patient reports having crisis resources and could return to ER Last Documented On 1 10:17AM ; [facility] Patient education about a pr oper diet Last Documented On 5:17PM ; [facility] Patient education about meal planning Last Documented On 5:17PM ; [facility] Education about changing eat ing habits Last Documented On 5:17PM ; [facility] Patient education about high fiber diet Last Documented On 5:17PM ; [facility] Patient education about low fat diet Last Documented On 1 5:17PM ; [facility] Patient education about low cholesterol diet Last Documented On 1 5:17PM ; [facility] Patient education about low carbohydrate diet Last Documented On 1 5:17PM ; [facility] Patient education about high protein diet Last Documented On 5:17PM ; [facility] offered active and suppo rtive listening, normalized emotions and feelings, and processed current stressors. [facility] discussed resources for finding a counselor and provided list of local resources. [facility] discussed patients coping skills and supports and encouraged patient to continue to implement. [facility] reminded patient of crisis resources should they be needed Last Documented On 1 7:15PM ; [facility] Discussed nutritional needs teach healthy choices including fruits and vegetables Last Documented On 1 11:38AM ; [facility] Patient education about a pr oper diet Last Documented On 1 11:38AM ; [facility] Patient education about a pr oper diet Last Documented On 1 12:19PM ; [facility] Patient education about meal planning Last Documented On 1 12:19PM ; [facility] Education about changing eat ing habits Last Documented On 1 12:19PM ; [facility] Patient education about high fiber diet Last Documented On 1 12:19PM ; [facility] Patient education about low fat diet Last Documented On 1 12:19PM ; [facility] Patient education about low cholesterol diet Last Documented On 1 12:19PM ; [facility] Patient education about low carbohydrate diet Last Documented On 1 12:19PM ; [facility] Patient education about high protein diet Last Documented On 1 12:19PM ; [facility] Discussed concerns about exe rcise : promote physical activity Last Documented On 1 11:38AM ; [facility], support and helped patient process through current symptoms and stressors related to family conflict. ~P discussed coping skills and supports with patient that can be implemented and reminded patient of ways to access additional resources. ~P discussed crisis resources and plan. Patient has crisis resources still available should they be needed Last Documented On 1 7:04PM ; [facility] Discussed nutritional needs teach healthy choices including fruits and vegetables Last Documented On 1 3:57PM ; [facility] Patient education about a pr oper diet Last Documented On 1 3:57PM ; [facility] Discussed concerns about exe rcise : promote physical activity Last Documented On 1 3:57PM ; [facility] integrated model of care. [facility] and PCP [...] down Last Documented On 1 11:46AM ; [facility] Discussed nutritional needs teach healthy choices including fruits and vegetables Last Documented On 1 2:11PM ; [facility] Patient education about a pr oper diet Last Documented On 1 2:11PM ; [facility] Discussed concerns about exe rcise : promote physical activity Last Documented On 1 2:11PM ; [facility] Work Phone: Instructions Includes: Instructions for all patient encounters Education and Decision Aids were provided during visit for: Counseling/education [Use fo r free text] Last Documented On 4 6:27PM ; [facility] Discussed nutritional needs teach healthy choices including fruits and vegetables Last Documented On 4 4:51PM ; [facility] Patient education about a pr oper diet Last Documented On 4 4:51PM ; [facility] Discussed concerns about exe rcise : promote physical activity Last Documented On 4 4:51PM ; [facility] Referred Patient to a Diabet es Self-Management Program Last Documented On 4 5:22PM ; [facility] offered active and suppo rtive listening and processed current stressors. ~P discussed coping skills and supports that can be implemented to manage increased anxiety and stressors. [facility] discussed potential of resuming counseling, even if for monthly visits to process ongoing stressors. ~P encouraged patient to follow- up on referrals as discussed with PCP Last Documented On 4 10:08AM ; [facility] Discussed nutritional needs teach healthy choices including fruits and vegetables Last Documented On 4 4:46PM ; [facility] Patient education about a pr oper diet Last Documented On 4 4:46PM ; [facility] Discussed concerns about exe rcise : promote physical activity Last Documented On 4 4:46PM ; [facility] Not requesting contraception Last Documented On 4 4:46PM ; [facility] active and suppo rtive listening and processed current stressors related to getting medications. ~P discussed coping skills and supports to implement in daily routine. ~P discussed progress patient has felt they have made recently and encouraged continued follow-up with providers to address health Last Documented On 4 5:16PM ; [facility] Discussed nutritional needs teach healthy choices including fruits and vegetables Last Documented On 4 7:14PM ; [facility] Patient education about a pr oper diet Last Documented On 4 7:14PM ; [facility] Discussed concerns about exe rcise : promote physical activity Last Documented On 4 7:14PM ; [facility] Not requesting contraception Last Documented On 4 7:14PM ; [facility] Discussed nutritional needs teach healthy choices including fruits and vegetables Last Documented On 3 5:15PM ; [facility] Patient education about a pr oper diet Last Documented On 3 5:15PM ; [facility] Discussed concerns about exe rcise : promote physical activity Last Documented On 3 5:15PM ; [facility] Discussed nutritional needs teach healthy choices including fruits and vegetables Last Documented On 2 1:42PM ; [facility] Patient education about a pr oper diet Last Documented On 2 1:42PM ; [facility] Discussed concerns about exe rcise : promote physical activity Last Documented On 2 1:42PM ; [facility] and supportive feedback; normalized emotions and feelings, also provided pt time to process any current stressors. ~Promoted and encouraged follow-through with scheduling psychiatric services Last Documented On 2 3:21PM ; [facility] provided supportive, empa thic listening and reflective feedback. ~Explored, encouraged, and supported the pt to discuss current sx/mood, assess risk for harm/need, coping mechanisms, support network and safety planning. ~Supported pt's plan to f/up with Dr. Carney, as planned at [place], [place]. ~Encouraged pt to use safety plan, if needed to ensure she remains safe Last Documented On 2 2:27PM ; [facility] Discussed nutritional needs teach healthy choices including fruits and vegetables Last Documented On 2 3:20PM ; [facility] Patient education about a pr oper diet Last Documented On 2 3:20PM ; [facility] Discussed concerns about exe rcise : promote physical activity ~ ~Will restart trazodone and prazosin ~ ~Patient is planning to have brother stay with her for a few days for emotional support ~ ~Follow up with PCP at next scheduled visit ~ ~Call psychiatrist office to schedule appt ~ ~Call counselor Last Documented On 2 9:35AM ; [facility] Provided supportive listenin g and empathic feedback; encouraged, explored, and supported the pt as she processed current symptoms, Issues, and concerns. ~Discussed past tx and explored current needs/options. Acknowledged and validated pt's thoughts and emotions. ~Explored coping mechanisms and support network; utilized opportunity for safety planning; promoted seeking positive support and seeking help, as needed Last Documented On 2 3:28PM ; [facility] provided active listenin g, support and helped pt process though current symptoms and stressor(s). Discussed and explored past effectiveness of medication; identified objectives and future goals; promoted use of healthy coping mechanisms, and self-care practices Last Documented On 2 3:19PM ; [facility] Reviewed side effects and Ri sks/Benefits analysis Last Documented On 2 3:19PM ; [facility] Discussed nutritional needs teach healthy choices including fruits and vegetables Last Documented On 2 3:15PM ; [facility] Patient education about a pr oper diet Last Documented On 2 3:15PM ; [facility] Discussed concerns about exe rcise : promote physical activity Last Documented On 2 3:15PM ; [facility] introduced pt to HPWO in tegrated model of care ~[facility] offered active listening and supportive feedback; normalized emotions and feelings, also provided pt time to process any current stressors ~[facility] discussed potential benefits of counseling and supported re-engaging, as needed. ~[facility] encouraged pt to continue to make time to implement self-care regimen and use coping methods, as needed Last Documented On 2 4:07PM ; [facility] Discussed nutritional needs teach healthy choices including fruits and vegetables Last Documented On 2 3:15PM ; [facility] Patient education about a pr oper diet Last Documented On 2 3:15PM ; [facility] Inquiry and counseling about medication administration and compliance Last Documented On 2 7:37PM ; [facility] Discussed concerns about exe rcise : promote physical activity Last Documented On 2 3:15PM ; [facility] Patient goals discussed Last Documented On 2 7:37PM ; [facility] Ansewred pt's questions re B orderlline Personality D/O and Bipolar D/O raised by psychiatrist at [place]. ~Validated and normalized patient?s feelings while assisting to process recent events Last Documented On 1 1:33AM ; [facility] Discussed nutritional needs teach healthy choices including fruits and vegetables Last Documented On 1 2:04PM ; [facility] Patient education about a pr oper diet Last Documented On 1 2:04PM ; [facility] Discussed concerns about exe rcise : promote physical activity Last Documented On 1 2:04PM ; [facility] provided active listenin g, support and helped patient process through current symptoms and stressors with ongoing mental health concerns and medication changes. ~[facility] discussed coping skills and supports that patient [...] ER Last Documented On 1 10:17AM ; [facility] Patient education about a pr oper diet Last Documented On 1 5:17PM ; [facility] Patient education about meal planning Last Documented On 1 5:17PM ; [facility] Education about changing eat ing habits Last Documented On 1 5:17PM ; [facility] Patient education about high fiber diet Last Documented On 1 5:17PM ; [facility] Patient education about low fat diet Last Documented On 1 5:17PM ; [facility] Patient education about low cholesterol diet Last Documented On 1 5:17PM ; [facility] Patient education about low carbohydrate diet Last Documented On 1 5:17PM ; [facility] Patient education about high protein diet Last Documented On 1 5:17PM ; [facility] offered active and suppo rtive listening, normalized emotions and feelings, and processed current stressors. ~[facility] discussed resources for finding a counselor and provided list of local resources. ~[facility] discussed patients coping skills and supports and encouraged patient to continue to implement. [facility] reminded patient of crisis resources should they be needed Last Documented On 7:15PM ; [facility] Discussed nutritional needs teach healthy choices including fruits and vegetables Last Documented On 11:38AM ; [facility] Patient education about a pr oper diet Last Documented On 1 11:38AM ; [facility] Patient education about a pr oper diet Last Documented On 1 12:19PM ; [facility] Patient education about meal planning Last Documented On 1 12:19PM ; [facility] Education about changing eat ing habits Last Documented On 1 12:19PM ; [facility] Patient education about high fiber diet Last Documented On 12:19PM ; [facility] Patient education about low fat diet Last Documented On 1 12:19PM ; [facility] Patient education about low cholesterol diet Last Documented On 1 12:19PM ; [facility] Patient education about low carbohydrate diet Last Documented On 1 12:19PM ; [facility] Patient education about high protein diet Last Documented On 1 12:19PM ; [facility] Discussed concerns about exe rcise : promote physical activity Last Documented On 1 11:38AM ; [facility] provided active listenin g, support and helped patient process through current symptoms and stressors related to family conflict. ~[facility] discussed coping skills and supports with patient that can be implemented and reminded patient of ways to access additional resources. ~[facility] discussed crisis resources and plan. Patient has crisis resources still available should they be needed Last Documented On 1 7:04PM ; [facility] Discussed nutritional needs teach healthy choices including fruits and vegetables Last Documented On 1 3:57PM ; [facility] Patient education about a pr oper diet Last Documented On 1 3:57PM ; [facility] Discussed concerns about exe rcise : promote physical activity Last Documented On 1 3:57PM ; [facility] integrated model of care. [facility] and PCP reassured patient of not sharing information with anyone unless she has signed a release for us to do so. ~P provided active listening, support and helped patient process through current symptoms and stressors. ~P discussed establishing counseling and psychiatry. [facility] discussed EMDR therapy and ways to find provider who does this type of therapy. ~[facility] discussed crisis resources should mood worsen, [facility] provided text hotline number for crisis. [facility] reviewed crisis plan with patient and patient is able to contact positive supports and family when feeling down Last Documented On 1 11:46AM ; [facility] Discussed nutritional needs teach healthy choices including fruits and vegetables Last Documented On 1 2:11PM ; [facility] Patient education about a pr oper diet Last Documented On 1 2:11PM ; [facility] Discussed concerns about exe rcise : promote physical activity Last Documented On 1 2:11PM ; [facility] Work Phone: Instructions Includes: Instructions for all patient encounters Education and Decision Aids were provided during visit for: P offered active and suppo rtive listening and processed recent stressors. ~[facility] discussed coping skills and supports to implement in managing increased anxiety such as tools learned previously in therapy. ~P discussed sleep hygiene strategies that can be implemented. ~[facility] encouraged patient to follow-up with specialists as scheduled Last Documented On 4 3:26PM ; [facility] Discussed nutritional needs teach healthy choices including fruits and vegetables Last Documented On 4 4:51PM ; [facility] Patient education about a pr oper diet Last Documented On 4 4:51PM ; [facility] Discussed concerns about exe rcise : promote physical activity Last Documented On 4 4:51PM ; [facility] Referred Patient to a Diabet es Self-Management Program Last Documented On 4 5:22PM ; [facility] offered active and suppo rtive listening and processed current stressors. ~P discussed coping skills and supports that can be implemented to manage increased anxiety and stressors. P discussed potential of resuming counseling, even if for monthly visits to process ongoing stressors. ~[facility] encouraged patient to follow- up on referrals as discussed with PCP Last Documented On 4 10:08AM ; [facility] Discussed nutritional needs teach healthy choices including fruits and vegetables Last Documented On 4 4:46PM ; [facility] Patient education about a pr oper diet Last Documented On 4 4:46PM ; [facility] Discussed concerns about exe rcise : promote physical activity Last Documented On 4 4:46PM ; [facility] Not requesting contraception Last Documented On 4 4:46PM ; [facility] offered active and suppo rtive listening and processed current stressors related to getting medications. ~[facility] discussed coping skills and supports to implement in daily routine. ~[facility] discussed progress patient has felt they have made recently and encouraged continued follow-up with providers to address health Last Documented On 4 5:16PM ; [facility] Discussed nutritional needs teach healthy choices including fruits and vegetables Last Documented On 4 7:14PM ; [facility] Patient education about a pr oper diet Last Documented On 4 7:14PM ; [facility] Discussed concerns about exe rcise : promote physical activity Last Documented On 4 7:14PM ; [facility] Not requesting contraception Last Documented On 4 7:14PM ; [facility] Discussed nutritional needs teach healthy choices including fruits and vegetables Last Documented On 3 5:15PM ; [facility] Patient education about a pr oper diet Last Documented On 3 5:15PM ; [facility] Discussed concerns about exe rcise : promote physical activity Last Documented On 3 5:15PM ; [facility] Discussed nutritional needs teach healthy choices including fruits and vegetables Last Documented On 2 1:42PM ; [facility] Patient education about a pr oper diet Last Documented On 2 1:42PM ; [facility] Discussed concerns about exe rcise : promote physical activity Last Documented On 2 1:42PM ; [facility] active listening and supportive feedback; normalized emotions and feelings, also provided pt time to process any current stressors. ~Promoted and encouraged follow-through with scheduling psychiatric services Last Documented On 2 3:21PM ; [facility] provided supportive, empa thic listening and reflective feedback. ~Explored, encouraged, and supported the pt to discuss current sx/mood, assess risk for harm/need, coping mechanisms, support network and safety planning. ~Supported pt's plan to f/up with Dr. Carney, as planned at [place], [place]. ~Encouraged pt to use safety plan, if needed to ensure she remains safe Last Documented On 2 2:27PM ; [facility] Discussed nutritional needs teach healthy choices including fruits and vegetables Last Documented On 2 3:20PM ; [facility] Patient education about a pr oper diet Last Documented On 2 3:20PM ; [facility] Discussed concerns about exe rcise : promote physical activity ~ ~Will restart trazodone and prazosin ~ ~Patient is planning to have brother stay with her for a few days for emotional support ~ ~Follow up with PCP at next scheduled visit ~ ~Call psychiatrist office to schedule appt ~ ~Call counselor Last Documented On 2 9:35AM ; [facility] Provided supportive listenin g and empathic feedback; encouraged, explored, and supported the pt as she processed current symptoms, Issues, and concerns. ~Discussed past tx and explored current needs/options. Acknowledged and validated pt's thoughts and emotions. ~Explored coping mechanisms and support network; utilized opportunity for safety planning; promoted seeking positive support and seeking help, as needed Last Documented On 2 3:28PM ; [facility] provided active listenin g, support and helped pt process though current symptoms and stressor(s). Discussed and explored past effectiveness of medication; identified objectives and future goals; promoted use of healthy coping mechanisms, and self-care practices Last Documented On 2 3:19PM ; [facility] Reviewed side effects and Ri sks/Benefits analysis Last Documented On 2 3:19PM ; [facility] Discussed nutritional needs teach healthy choices including fruits and vegetables Last Documented On 2 3:15PM ; [facility] Patient education about a pr oper diet Last Documented On 2 3:15PM ; [facility] Discussed concerns about exe rcise : promote physical activity Last Documented On 2 3:15PM ; [facility] introduced pt to HPWO in tegrated model of care ~[facility] offered active listening and supportive feedback; normalized emotions and feelings, also provided pt time to process any current stressors ~[facility] discussed potential benefits of counseling and supported re-engaging, as needed. ~[facility] encouraged pt to continue to make time to implement self-care regimen and use coping methods, as needed Last Documented On 2 4:07PM ; [facility] Discussed nutritional needs teach healthy choices including fruits and vegetables Last Documented On 2 3:15PM ; [facility] Patient education about a pr oper diet Last Documented On 2 3:15PM ; [facility] Inquiry and counseling about medication administration and compliance Last Documented On 2 7:37PM ; [facility] Discussed concerns about exe rcise : promote physical activity Last Documented On 2 3:15PM ; [facility] Patient goals discussed Last Documented On 2 7:37PM ; [facility] Ansewred pt's questions re B orderlline Personality D/O and Bipolar D/O raised by psychiatrist at [place]. ~Validated and normalized patient?s feelings while assisting to process recent events Last Documented On 1 1:33AM ; [facility] Discussed nutritional needs teach healthy choices including fruits and vegetables Last Documented On 1 2:04PM ; [facility] Patient education about a pr oper diet Last Documented On 1 2:04PM ; [facility] Discussed concerns about exe rcise : promote physical activity Last Documented On 1 2:04PM ; [facility] provided active listenin g, support and helped patient process through current symptoms and stressors with ongoing mental health concerns and medication changes. ~[facility] discussed coping skills and supports that patient [...] ER Last Documented On 1 10:17AM ; [facility] Patient education about a pr oper diet Last Documented On 1 5:17PM ; [facility] Patient education about meal planning Last Documented On 5:17PM ; [facility] Education about changing eat ing habits Last Documented On 5:17PM ; [facility] Patient education about high fiber diet Last Documented On 1 5:17PM ; [facility] Patient education about low fat diet Last Documented On 1 5:17PM ; [facility] Patient education about low cholesterol diet Last Documented On 1 5:17PM ; [facility] Patient education about low carbohydrate diet Last Documented On 1 5:17PM ; [facility] Patient education about high protein diet Last Documented On 1 5:17PM ; [facility] offered active and suppo rtive listening, normalized emotions and feelings, and processed current stressors. ~P discussed resources for finding a counselor and provided list of local resources. ~P discussed patients coping skills and supports and encouraged patient to continue to implement. ~P reminded patient of crisis resources should they be needed Last Documented On 1 7:15PM ; [facility] Discussed nutritional needs teach healthy choices including fruits and vegetables Last Documented On 1 11:38AM ; [facility] Patient education about a pr oper diet Last Documented On 1 11:38AM ; [facility] Patient education about a pr oper diet Last Documented On 1 12:19PM ; [facility] Patient education about meal planning Last Documented On 1 12:19PM ; [facility] Education about changing eat ing habits Last Documented On 1 12:19PM ; [facility] Patient education about high fiber diet Last Documented On 1 12:19PM ; [facility] Patient education about low fat diet Last Documented On 1 12:19PM ; [facility] Patient education about low cholesterol diet Last Documented On 1 12:19PM ; [facility] Patient education about low carbohydrate diet Last Documented On 1 12:19PM ; [facility] Patient education about high protein diet Last Documented On 1 12:19PM ; [facility] Discussed concerns about exe rcise : promote physical activity Last Documented On 1 11:38AM ; [facility] provided active listenin g, support and helped patient process through current symptoms and stressors related to family conflict. ~[facility] discussed coping skills and supports with patient that can be implemented and reminded patient of ways to access additional resources. ~[facility] discussed crisis resources and plan. Patient has crisis resources still available should they be needed Last Documented On 1 7:04PM ; [facility] Discussed nutritional needs teach healthy choices including fruits and vegetables Last Documented On 1 3:57PM ; [facility] Patient education about a pr oper diet Last Documented On 1 3:57PM ; [facility] Discussed concerns about exe rcise : promote physical activity Last Documented On 1 3:57PM ; [facility] to [facility] integrated model of care. [facility] and PCP reassured patient of not sharing information with anyone unless she has signed a release for us to do so. ~[facility] provided active listening, support and helped patient process through current symptoms and stressors. ~[facility] discussed establishing counseling and psychiatry. P discussed EMDR therapy and ways to find provider who does this type of therapy. ~[facility] discussed crisis resources should mood worsen, [facility] provided text hotline number for crisis. [facility] reviewed crisis plan with patient and patient is able to contact positive supports and family when feeling down Last Documented On 1 11:46AM ; [facility] Discussed nutritional needs teach healthy choices including fruits and vegetables Last Documented On 1 2:11PM ; [facility] Patient education about a pr oper diet Last Documented On 1 2:11PM ; [facility] Discussed concerns about exe rcise : promote physical activity Last Documented On 1 2:11PM ; [facility] Work Phone: Instructions Includes: Instructions for all patient encounters Education and Decision Aids were provided during visit for: ~*[facility] offered active and sup portive listening, normalized emotions and feelings, and processed ~current stressors. ~*Discussed engageing in counseling and looking into EMDR to address PTSD and increased nightmares Last Documented On 4 4:14PM ; [facility] Discussed nutritional needs teach healthy choices including fruits and vegetables Last Documented On 4 4:33PM ; [facility] Patient education about a pr oper diet Last Documented On 4 4:33PM ; [facility] Discussed concerns about exe rcise : promote physical activity Last Documented On 4 4:33PM ; [facility] offered active and suppo rtive listening and processed recent stressors. ~[facility] discussed coping skills and supports to implement in managing increased anxiety such as tools learned previously in therapy. ~[facility] discussed sleep hygiene strategies that can be implemented. ~[facility] encouraged patient to follow-up with specialists as scheduled Last Documented On 4 3:26PM ; [facility] Discussed nutritional needs teach healthy choices including fruits and vegetables Last Documented On 4 4:51PM ; [facility] Patient education about a pr oper diet Last Documented On 4 4:51PM ; [facility] Discussed concerns about exe rcise : promote physical activity Last Documented On 4 4:51PM ; [facility] Referred Patient to a Diab[facility] es Self-Management Program Last Documented On 4 5:22PM ; [facility] offered active and suppo rtive listening and processed current stressors. ~P discussed coping skills and supports that can be implemented to manage increased anxiety and stressors. P discussed potential of resuming counseling, even if for monthly visits to process ongoing stressors. ~[facility] encouraged patient to follow- up on referrals as discussed with PCP Last Documented On 4 10:08AM ; [facility] Discussed nutritional needs teach healthy choices including fruits and vegetables Last Documented On 4 4:46PM ; [facility] Patient education about a pr oper diet Last Documented On 4 4:46PM ; [facility] Discussed concerns about exe rcise : promote physical activity Last Documented On 4 4:46PM ; [facility] Not requesting contraception Last Documented On 4 4:46PM ; [facility] offered active and suppo rtive listening and processed current stressors related to getting medications. ~[facility] discussed coping skills and supports to implement in daily routine. ~[facility] discussed progress patient has felt they have made recently and encouraged continued follow-up with providers to address health Last Documented On 4 5:16PM ; [facility] Discussed nutritional needs teach healthy choices including fruits and vegetables Last Documented On 4 7:14PM ; [facility] Patient education about a pr oper diet Last Documented On 4 7:14PM ; [facility] Discussed concerns about exe rcise : promote physical activity Last Documented On 4 7:14PM ; [facility] Not requesting contraception Last Documented On 4 7:14PM ; [facility] Discussed nutritional needs teach healthy choices including fruits and vegetables Last Documented On 3 5:15PM ; [facility] Patient education about a pr oper diet Last Documented On 3 5:15PM ; [facility] Discussed concerns about exe rcise : promote physical activity Last Documented On 3 5:15PM ; [facility] Discussed nutritional needs teach healthy choices including fruits and vegetables Last Documented On 2 1:42PM ; [facility] Patient education about a pr oper diet Last Documented On 2 1:42PM ; [facility] Discussed concerns about exe rcise : promote physical activity Last Documented On 2 1:42PM ; [facility] offered active listening and supportive feedback; normalized emotions and feelings, also provided pt time to process any current stressors. ~Promoted and encouraged follow-through with scheduling psychiatric services Last Documented On 2 3:21PM ; [facility] provided supportive, empa thic listening and reflective feedback. ~Explored, encouraged, and supported the pt to discuss current sx/mood, assess risk for harm/need, coping mechanisms, support network and safety planning. ~Supported pt's plan to f/up with Dr. Carney, as planned at [place], [place]. ~Encouraged pt to use safety plan, if needed to ensure she remains safe Last Documented On 2 2:27PM ; [facility] Discussed nutritional needs teach healthy choices including fruits and vegetables Last Documented On 2 3:20PM ; [facility] Patient education about a pr oper diet Last Documented On 2 3:20PM ; [facility] Discussed concerns about exe rcise : promote physical activity ~ ~Will restart trazodone and prazosin ~ ~Patient is planning to have brother stay with her for a few days for emotional support ~ ~Follow up with PCP at next scheduled visit ~ ~Call psychiatrist office to schedule appt ~ ~Call counselor Last Documented On 2 9:35AM ; [facility] Provided supportive listenin g and empathic feedback; encouraged, explored, and supported the pt as she processed current symptoms, Issues, and concerns. ~Discussed past tx and explored current needs/options. Acknowledged and validated pt's thoughts and emotions. ~Explored coping mechanisms and support network; utilized opportunity for safety planning; promoted seeking positive support and seeking help, as needed Last Documented On 2 3:28PM ; [facility] provided active listenin g, support and helped pt process though current symptoms and stressor(s). Discussed and explored past effectiveness of medication; identified objectives and future goals; promoted use of healthy coping mechanisms, and self-care practices Last Documented On 2 3:19PM ; [facility] Reviewed side effects and Ri sks/Benefits analysis Last Documented On 2 3:19PM ; [facility] Discussed nutritional needs teach healthy choices including fruits and vegetables Last Documented On 2 3:15PM ; [facility] Patient education about a pr oper diet Last Documented On 2 3:15PM ; [facility] Discussed concerns about exe rcise : promote physical activity Last Documented On 2 3:15PM ; [facility] introduced pt to HPWO in tegrated model of care ~[facility] offered active listening and supportive feedback; normalized emotions and feelings, also provided pt time to process any current stressors ~[facility] discussed potential benefits of counseling and supported re-engaging, as needed. ~[facility] encouraged pt to continue to make time to implement self-care regimen and use coping methods, as needed Last Documented On 2 4:07PM ; [facility] Discussed nutritional needs teach healthy choices including fruits and vegetables Last Documented On 2 3:15PM ; [facility] Patient education about a pr oper diet Last Documented On 2 3:15PM ; [facility] Inquiry and counseling about medication administration and compliance Last Documented On 2 7:37PM ; [facility] Discussed concerns about exe rcise : promote physical activity Last Documented On 2 3:15PM ; [facility] Patient goals discussed Last Documented On 2 7:37PM ; [facility] Ansewred pt's questions re B orderlline Personality D/O and Bipolar D/O raised by psychiatrist at [place]. ~Validated and normalized patient?s feelings while assisting to process recent events Last Documented On 1 1:33AM ; [facility] Discussed nutritional needs teach healthy choices including fruits and vegetables Last Documented On 1 2:04PM ; [facility] Patient education about a pr oper diet Last Documented On 1 2:04PM ; [facility] Discussed concerns about exe rcise : promote physical activity Last Documented On 1 2:04PM ; [facility] provided active listenin g, support and helped patient process through current symptoms and stressors with ongoing mental health concerns and medication changes. ~[facility] discussed coping skills and supports that patient is implementing. discussed implementing coping skills as discussed with counseling and attending weekly appointments as scheduled with counselor. Patient was encouraged to continue writing down concerns with medications and discuss with providers. ~[facility] reminded patient of crisis resources should they be needed. Patient reports having crisis resources and could return to ER Last Documented On 1 10:17AM ; [facility] Patient education about a pr oper diet Last Documented On 1 5:17PM ; [facility] Patient education about meal planning Last Documented On 1 5:17PM ; [facility] Education about changing eat ing habits Last Documented On 1 5:17PM ; [facility] Patient education about high fiber diet Last Documented On 1 5:17PM ; [facility] Patient education about low fat diet Last Documented On 1 5:17PM ; [facility] Patient education about low cholesterol diet Last Documented On 1 5:17PM ; [facility] Patient education about low carbohydrate diet Last Documented On 1 5:17PM ; [facility] Patient education about high protein diet Last Documented On 1 5:17PM ; [facility] offered active and suppo rtive listening, normalized emotions and feelings, and processed current stressors. ~[facility] discussed resources for finding a counselor and provided list of local resources. ~[facility] discussed patients coping skills and supports and encouraged patient to continue to implement. [facility] reminded patient of crisis resources should they be needed Last Documented On 1 7:15PM ; [facility] Discussed nutritional needs teach healthy choices including fruits and vegetables Last Documented On 1 11:38AM ; [facility] Patient education about a pr oper diet Last Documented On 1 11:38AM ; [facility] Patient education about a pr oper diet Last Documented On 1 12:19PM ; [facility] Patient education about meal planning Last Documented On 1 12:19PM ; [facility] Education about changing eat ing habits Last Documented On 1 12:19PM ; [facility] Patient education about high fiber diet Last Documented On 1 12:19PM ; [facility] Patient education about low fat diet Last Documented On 12:19PM ; [facility] Patient education about low cholesterol diet Last Documented On 1 12:19PM ; [facility] Patient education about low carbohydrate diet Last Documented On 12:19PM ; [facility] Patient education about high protein diet Last Documented On 1 12:19PM ; [facility] Discussed concerns about exe rcise : promote physical activity Last Documented On 1 11:38AM ; [facility], support and helped patient process through current symptoms and stressors related to family conflict. ~P discussed coping skills and supports with patient that can be implemented and reminded patient of ways to access additional resources. ~[facility] discussed crisis resources and plan. Patient has crisis resources still available should they be needed Last Documented On 1 7:04PM ; [facility] Discussed nutritional needs teach healthy choices including fruits and vegetables Last Documented On 1 3:57PM ; [facility] Patient education about a pr oper diet Last Documented On 1 3:57PM ; [facility] Discussed concerns about exe rcise : promote physical activity Last Documented On 1 3:57PM ; [facility] to [facility] integrated model of care. [facility] and PCP reassured patient of not sharing information with anyone unless she has signed a release for us to do so. ~P provided active listening, support and helped patient process through current symptoms and stressors. ~[facility] discussed establishing counseling and psychiatry. [facility] discussed EMDR therapy and ways to find provider who does this type of therapy. ~[facility] discussed crisis resources should mood worsen, [facility] provided text hotline number for crisis. [facility] reviewed crisis plan with patient and patient is able to contact positive supports and family when feeling down Last Documented On 1 11:46AM ; [facility] Discussed nutritional needs teach healthy choices including fruits and vegetables Last Documented On 1 2:11PM ; [facility] Patient education about a pr oper diet Last Documented On 1 2:11PM ; [facility] Discussed concerns about exe rcise : promote physical activity Last Documented On 1 2:11PM ; [facility] Work Phone: Instructions Includes: Instructions for all patient encounters Education and Decision Aids were provided during visit for: ~*[facility] offered active and sup portive listening, normalized emotions and feelings, and processed ~current stressors. ~*Discussed engageing in counseling and looking into EMDR to address PTSD and increased nightmares Last Documented On 4 4:14PM ; [facility] Discussed nutritional needs teach healthy choices including fruits and vegetables Last Documented On 4 4:33PM ; [facility] Patient education about a pr oper diet Last Documented On 4 4:33PM ; [facility] Discussed concerns about exe rcise : promote physical activity Last Documented On 4 4:33PM ; [facility] offered active and suppo rtive listening and processed recent stressors. ~[facility] discussed coping skills and supports to implement in managing increased anxiety such as tools learned previously in therapy. ~[facility] discussed sleep hygiene strategies that can be implemented. ~[facility] encouraged patient to follow-up with specialists as scheduled Last Documented On 4 3:26PM ; [facility] Discussed nutritional needs teach healthy choices including fruits and vegetables Last Documented On 4 4:51PM ; [facility] Patient education about a pr oper diet Last Documented On 4 4:51PM ; [facility] Discussed concerns about exe rcise : promote physical activity Last Documented On 4 4:51PM ; [facility] Referred Patient to a Diabet es Self-Management Program Last Documented On 4 5:22PM ; [facility] offered active and suppo rtive listening and processed current stressors. ~P discussed coping skills and supports that can be implemented to manage increased anxiety and stressors. P discussed potential of resuming counseling, even if for monthly visits to process ongoing stressors. ~[facility] encouraged patient to follow- up on referrals as discussed with PCP Last Documented On 4 10:08AM ; [facility] Discussed nutritional needs teach healthy choices including fruits and vegetables Last Documented On 4 4:46PM ; [facility] Patient education about a pr oper diet Last Documented On 4 4:46PM ; [facility] Discussed concerns about exe rcise : promote physical activity Last Documented On 4 4:46PM ; [facility] Not requesting contraception Last Documented On 4 4:46PM ; [facility] offered active and suppo rtive listening and processed current stressors related to getting medications. ~[facility] discussed coping skills and supports to implement in daily routine. ~[facility] discussed progress patient has felt they have made recently and encouraged continued follow-up with providers to address health Last Documented On 4 5:16PM ; [facility] Discussed nutritional needs teach healthy choices including fruits and vegetables Last Documented On 4 7:14PM ; [facility] Patient education about a pr oper diet Last Documented On 4 7:14PM ; [facility] Discussed concerns about exe rcise : promote physical activity Last Documented On 4 7:14PM ; [facility] Not requesting contraception Last Documented On 4 7:14PM ; [facility] Discussed nutritional needs teach healthy choices including fruits and vegetables Last Documented On 3 5:15PM ; [facility] Patient education about a pr oper diet Last Documented On 3 5:15PM ; [facility] Discussed concerns about exe rcise : promote physical activity Last Documented On 3 5:15PM ; [facility] Discussed nutritional needs teach healthy choices including fruits and vegetables Last Documented On 2 1:42PM ; [facility] Patient education about a pr oper diet Last Documented On 2 1:42PM ; [facility] Discussed concerns about exe rcise : promote physical activity Last Documented On 2 1:42PM ; [facility] offered active listening and supportive feedback; normalized emotions and feelings, also provided pt time to process any current stressors. ~Promoted and encouraged follow-through with scheduling psychiatric services Last Documented On 2 3:21PM ; [facility] provided supportive, empa thic listening and reflective feedback. ~Explored, encouraged, and supported the pt to discuss current sx/mood, assess risk for harm/need, coping mechanisms, support network and safety planning. ~Supported pt's plan to f/up with Dr. Carney, as planned at [place], [place]. ~Encouraged pt to use safety plan, if needed to ensure she remains safe Last Documented On 2 2:27PM ; [facility] Discussed nutritional needs teach healthy choices including fruits and vegetables Last Documented On 2 3:20PM ; [facility] Patient education about a pr oper diet Last Documented On 2 3:20PM ; [facility] Discussed concerns about exe rcise : promote physical activity ~ ~Will restart trazodone and prazosin ~ ~Patient is planning to have brother stay with her for a few days for emotional support ~ ~Follow up with PCP at next scheduled visit ~ ~Call psychiatrist office to schedule appt ~ ~Call counselor Last Documented On 2 9:35AM ; [facility] Provided supportive listenin g and empathic feedback; encouraged, explored, and supported the pt as she processed current symptoms, Issues, and concerns. ~Discussed past tx and explored current needs/options. Acknowledged and validated pt's thoughts and emotions. ~Explored coping mechanisms and support network; utilized opportunity for safety planning; promoted seeking positive support and seeking help, as needed Last Documented On 2 3:28PM ; [facility] provided active listenin g, support and helped pt process though current symptoms and stressor(s). Discussed and explored past effectiveness of medication; identified objectives and future goals; promoted use of healthy coping mechanisms, and self-care practices Last Documented On 2 3:19PM ; [facility] Reviewed side effects and Ri sks/Benefits analysis Last Documented On 2 3:19PM ; [facility] Discussed nutritional needs teach healthy choices including fruits and vegetables Last Documented On 2 3:15PM ; [facility] Patient education about a pr oper diet Last Documented On 2 3:15PM ; [facility] Discussed concerns about exe rcise : promote physical activity Last Documented On 2 3:15PM ; [facility] introduced pt to HPWO in tegrated model of care ~[facility] offered active listening and supportive feedback; normalized emotions and feelings, also provided pt time to process any current stressors ~[facility] discussed potential benefits of counseling and supported re-engaging, as needed. ~[facility] encouraged pt to continue to make time to implement self-care regimen and use coping methods, as needed Last Documented On 2 4:07PM ; [facility] Discussed nutritional needs teach healthy choices including fruits and vegetables Last Documented On 2 3:15PM ; [facility] Patient education about a pr oper diet Last Documented On 2 3:15PM ; [facility] Inquiry and counseling about medication administration and compliance Last Documented On 2 7:37PM ; [facility] Discussed concerns about exe rcise : promote physical activity Last Documented On 2 3:15PM ; [facility] Patient goals discussed Last Documented On 2 7:37PM ; [facility] Ansewred pt's questions re B orderlline Personality D/O and Bipolar D/O raised by psychiatrist at [place]. ~Validated and normalized patient?s feelings while assisting to process recent events Last Documented On 1 1:33AM ; [facility] Discussed nutritional needs teach healthy choices including fruits and vegetables Last Documented On 1 2:04PM ; [facility] Patient education about a pr oper diet Last Documented On 1 2:04PM ; [facility] Discussed concerns about exe rcise : promote physical activity Last Documented On 1 2:04PM ; [facility] provided active listenin g, support and helped patient process through current symptoms and stressors with ongoing mental health concerns and medication changes. ~[facility] discussed coping skills and supports that patient is implementing. discussed implementing coping skills as discussed with counseling and attending weekly appointments as scheduled with counselor. Patient was encouraged to continue writing down concerns with medications and discuss with providers. ~[facility] reminded patient of crisis resources should they be needed. Patient reports having crisis resources and could return to ER Last Documented On 1 10:17AM ; [facility] Patient education about a pr oper diet Last Documented On 1 5:17PM ; [facility] Patient education about meal planning Last Documented On 1 5:17PM ; [facility] Education about changing eat ing habits Last Documented On 1 5:17PM ; [facility] Patient education about high fiber diet Last Documented On 1 5:17PM ; [facility] Patient education about low fat diet Last Documented On 1 5:17PM ; [facility] Patient education about low cholesterol diet Last Documented On 1 5:17PM ; [facility] Patient education about low carbohydrate diet Last Documented On 1 5:17PM ; [facility] Patient education about high protein diet Last Documented On 1 5:17PM ; [facility] offered active and suppo rtive listening, normalized emotions and feelings, and processed current stressors. ~[facility] discussed resources for finding a counselor and provided list of local resources. [facility] discussed patients coping skills and supports and encouraged patient to continue to implement. [facility] reminded patient of crisis resources should they be needed Last Documented On 1 7:15PM ; [facility] Discussed nutritional needs teach healthy choices including fruits and vegetables Last Documented On 1 11:38AM ; [facility] Patient education about a pr oper diet Last Documented On 1 11:38AM ; [facility] Patient education about a pr oper diet Last Documented On 1 12:19PM ; [facility] Patient education about meal planning Last Documented On 1 12:19PM ; [facility] Education about changing eat ing habits Last Documented On 1 12:19PM ; [facility] Patient education about high fiber diet Last Documented On 1 12:19PM ; [facility] Patient education about low fat diet Last Documented On 1 12:19PM ; [facility] Patient education about low cholesterol diet Last Documented On 1 12:19PM ; [facility] Patient education about low carbohydrate diet Last Documented On 1 12:19PM ; [facility] Patient education about high protein diet Last Documented On 12:19PM ; [facility] Discussed concerns about exe rcise : promote physical activity Last Documented On 1 11:38AM ; [facility] active listen[facility], support and helped patient process through current symptoms and stressors related to family conflict. ~P discussed coping skills and supports with patient that can be implemented and reminded patient of ways to access additional resources. ~P discussed crisis resources and plan. Patient has crisis resources still available should they be needed Last Documented On 1 7:04PM ; [facility] Discussed nutritional needs teach healthy choices including fruits and vegetables Last Documented On 1 3:57PM ; [facility] Patient education about a pr oper diet Last Documented On 1 3:57PM ; [facility] Discussed concerns about exe rcise : promote physical activity Last Documented On 1 3:57PM ; [facility] to [facility] integrated model of care. [facility] and PCP reassured patient of not sharing information with anyone unless she has signed a release for us to do so. ~P provided active listening, support and helped patient process through current symptoms and stressors. ~P discussed establishing counseling and psychiatry. [facility] discussed EMDR therapy and ways to find provider who does this type of therapy. ~[facility] discussed crisis resources should mood worsen, [facility] provided text hotline number for crisis. [facility] reviewed crisis plan with patient and patient is able to contact positive supports and family when feeling down Last Documented On 1 11:46AM ; [facility] Discussed nutritional needs teach healthy choices including fruits and vegetables Last Documented On 1 2:11PM ; [facility] Patient education about a pr oper diet Last Documented On 1 2:11PM ; [facility] Discussed concerns about exe rcise : promote physical activity Last Documented On 1 2:11PM ; [facility] Work Phone: Instructions Includes: Instructions for all patient encounters Education and Decision Aids were provided during visit for: ~*[facility] offered active and sup portive listening, normalized emotions and feelings, and processed ~current stressors. ~*Discussed engageing in counseling and looking into EMDR to address PTSD and increased nightmares Last Documented On 4 4:14PM ; [facility] Discussed nutritional needs teach healthy choices including fruits and vegetables Last Documented On 4 4:33PM ; [facility] Patient education about a pr oper diet Last Documented On 4 4:33PM ; [facility] Discussed concerns about exe rcise : promote physical activity Last Documented On 4 4:33PM ; [facility] offered active and suppo rtive listening and processed recent stressors. ~[facility] discussed coping skills and supports to implement in managing increased anxiety such as tools learned previously in therapy. ~[facility] discussed sleep hygiene strategies that can be implemented. ~[facility] encouraged patient to follow-up with specialists as scheduled Last Documented On 4 3:26PM ; [facility] Discussed nutritional needs teach healthy choices including fruits and vegetables Last Documented On 4 4:51PM ; [facility] Patient education about a pr oper diet Last Documented On 4 4:51PM ; [facility] Discussed concerns about exe rcise : promote physical activity Last Documented On 4 4:51PM ; [facility] Referred Patient to a Diabet es Self-Management Program Last Documented On 4 5:22PM ; [facility] offered active and suppo rtive listening and processed current stressors. ~P discussed coping skills and supports that can be implemented to manage increased anxiety and stressors. [facility] discussed potential of resuming counseling, even if for monthly visits to process ongoing stressors. ~[facility] encouraged patient to follow- up on referrals as discussed with PCP Last Documented On 4 10:08AM ; [facility] Discussed nutritional needs teach healthy choices including fruits and vegetables Last Documented On 4 4:46PM ; [facility] Patient education about a pr oper diet Last Documented On 4 4:46PM ; [facility] Discussed concerns about exe rcise : promote physical activity Last Documented On 4 4:46PM ; [facility] Not requesting contraception Last Documented On 4 4:46PM ; [facility] offered active and suppo rtive listening and processed current stressors related to getting medications. ~P discussed coping skills and supports to implement in daily routine. ~[facility] discussed progress patient has felt they have made recently and encouraged continued follow-up with providers to address health Last Documented On 4 5:16PM ; [facility] Discussed nutritional needs teach healthy choices including fruits and vegetables Last Documented On 4 7:14PM ; [facility] Patient education about a pr oper diet Last Documented On 4 7:14PM ; [facility] Discussed concerns about exe rcise : promote physical activity Last Documented On 4 7:14PM ; [facility] Not requesting contraception Last Documented On 4 7:14PM ; [facility] Discussed nutritional needs teach healthy choices including fruits and vegetables Last Documented On 3 5:15PM ; [facility] Patient education about a pr oper diet Last Documented On 3 5:15PM ; [facility] Discussed concerns about exe rcise : promote physical activity Last Documented On 3 5:15PM ; [facility] Discussed nutritional needs teach healthy choices including fruits and vegetables Last Documented On 2 1:42PM ; [facility] Patient education about a pr oper diet Last Documented On 2 1:42PM ; [facility] Discussed concerns about exe rcise : promote physical activity Last Documented On 2 1:42PM ; [facility] offered active listening and supportive feedback; normalized emotions and feelings, also provided pt time to process any current stressors. ~Promoted and encouraged follow-through with scheduling psychiatric services Last Documented On 2 3:21PM ; [facility] provided supportive, empa thic listening and reflective feedback. ~Explored, encouraged, and supported the pt to discuss current sx/mood, assess risk for harm/need, coping mechanisms, support network and safety planning. ~Supported pt's plan to f/up with Dr. Carney, as planned at [place], [place]. ~Encouraged pt to use safety plan, if needed to ensure she remains safe Last Documented On 2 2:27PM ; [facility] Discussed nutritional needs teach healthy choices including fruits and vegetables Last Documented On 2 3:20PM ; [facility] Patient education about a pr oper diet Last Documented On 2 3:20PM ; [facility] Discussed concerns about exe rcise : promote physical activity ~ ~Will restart trazodone and prazosin ~ ~Patient is planning to have brother stay with her for a few days for emotional support ~ ~Follow up with PCP at next scheduled visit ~ ~Call psychiatrist office to schedule appt ~ ~Call counselor Last Documented On 2 9:35AM ; [facility] Provided supportive listenin g and empathic feedback; encouraged, explored, and supported the pt as she processed current symptoms, Issues, and concerns. ~Discussed past tx and explored current needs/options. Acknowledged and validated pt's thoughts and emotions. ~Explored coping mechanisms and support network; utilized opportunity for safety planning; promoted seeking positive support and seeking help, as needed Last Documented On 2 3:28PM ; [facility] provided active listenin g, support and helped pt process though current symptoms and stressor(s). Discussed and explored past effectiveness of medication; identified objectives and future goals; promoted use of healthy coping mechanisms, and self-care practices Last Documented On 2 3:19PM ; [facility] Reviewed side effects and Ri sks/Benefits analysis Last Documented On 2 3:19PM ; [facility] Discussed nutritional needs teach healthy choices including fruits and vegetables Last Documented On 2 3:15PM ; [facility] Patient education about a pr oper diet Last Documented On 2 3:15PM ; [facility] Discussed concerns about exe rcise : promote physical activity Last Documented On 2 3:15PM ; [facility] introduced pt to HPWO in tegrated model [...] needed Last Documented On 2 4:07PM ; [facility] Discussed nutritional needs teach healthy choices including fruits and vegetables Last Documented On 2 3:15PM ; [facility] Patient education about a pr oper diet Last Documented On 2 3:15PM ; [facility] Inquiry and counseling about medication administration and compliance Last Documented On 2 7:37PM ; [facility] Discussed concerns about exe rcise : promote physical activity Last Documented On 2 3:15PM ; [facility] Patient goals discussed Last Documented On 2 7:37PM ; [facility] Ansewred pt's questions re B orderlline Personality D/O and Bipolar D/O raised by psychiatrist at [place]. ~Validated and normalized patient?s feelings while assisting to process recent events Last Documented On 1 1:33AM ; [facility] Discussed nutritional needs teach healthy choices including fruits and vegetables Last Documented On 1 2:04PM ; [facility] Patient education about a pr oper diet Last Documented On 1 2:04PM ; [facility] Discussed concerns about exe rcise : promote physical activity Last Documented On 1 2:04PM ; [facility] provided active listenin g, support and helped patient process through current symptoms and stressors with ongoing mental health concerns and medication changes. [facility] discussed coping skills and supports that patient is implementing. discussed implementing coping skills as discussed with counseling and attending weekly appointments as scheduled with counselor. Patient was encouraged to continue writing down concerns with medications and discuss with providers. [facility] reminded patient of crisis resources should they be needed. Patient reports having crisis resources and could return to ER Last Documented On 1 10:17AM ; [facility] Patient education about a pr oper diet Last Documented On 1 5:17PM ; [facility] Patient education about meal planning Last Documented On 1 5:17PM ; [facility] Education about changing eat ing habits Last Documented On 1 5:17PM ; [facility] Patient education about high fiber diet Last Documented On 1 5:17PM ; [facility] Patient education about low fat diet Last Documented On 1 5:17PM ; [facility] Patient education about low cholesterol diet Last Documented On 1 5:17PM ; [facility] Patient education about low carbohydrate diet Last Documented On 1 5:17PM ; [facility] Patient education about high protein diet Last Documented On 1 5:17PM ; [facility] offered active and suppo rtive listening, normalized emotions and feelings, and processed current stressors. [facility] discussed resources for finding a counselor and provided list of local resources. [facility] discussed patients coping skills and supports and encouraged patient to continue to implement. [facility] reminded patient of crisis resources should they be needed Last Documented On 1 7:15PM ; [facility] Discussed nutritional needs teach healthy choices including fruits and vegetables Last Documented On 1 11:38AM ; [facility] Patient education about a pr oper diet Last Documented On 1 11:38AM ; [facility] Patient education about a pr oper diet Last Documented On 1 12:19PM ; [facility] Patient education about meal planning Last Documented On 1 12:19PM ; [facility] Education about changing eat ing habits Last Documented On 1 12:19PM ; [facility] Patient education about high fiber diet Last Documented On 1 12:19PM ; [facility] Patient education about low fat diet Last Documented On 1 12:19PM ; [facility] Patient education about low cholesterol diet Last Documented On 1 12:19PM ; [facility] Patient education about low carbohydrate diet Last Documented On 1 12:19PM ; [facility] Patient education about high protein diet Last Documented On 1 12:19PM ; [facility] Discussed concerns about exe rcise : promote physical activity Last Documented On 1 11:38AM ; [facility], support and helped patient process through current symptoms and stressors related to family conflict. ~P discussed coping skills and supports with patient that can be implemented and reminded patient of ways to access additional resources. ~P discussed crisis resources and plan. Patient has crisis resources still available should they be needed Last Documented On 1 7:04PM ; [facility] Discussed nutritional needs teach healthy choices including fruits and vegetables Last Documented On 1 3:57PM ; [facility] Patient education about a pr oper diet Last Documented On 1 3:57PM ; [facility] Discussed concerns about exe rcise : promote physical activity Last Documented On 1 3:57PM ; [facility] to [facility] integrated model of care. BHP and PCP [...] down Last Documented On 1 11:46AM ; [facility] Discussed nutritional needs teach healthy choices including fruits and vegetables Last Documented On 1 2:11PM ; [facility] Patient education about a pr oper diet Last Documented On 1 2:11PM ; [facility] Discussed concerns about exe rcise : promote physical activity Last Documented On 1 2:11PM ; [facility] Work Phone: Instructions Includes: Instructions for all patient encounters Education and Decision Aids were provided during visit for: ~*[facility] offered active and sup portive listening, normalized emotions and feelings, and processed ~current stressors. ~*Discussed engageing in counseling and looking into EMDR to address PTSD and increased nightmares Last Documented On 4 4:14PM ; [facility] Discussed nutritional needs teach healthy choices including fruits and vegetables Last Documented On 4 4:33PM ; [facility] Patient education about a pr oper diet Last Documented On 4 4:33PM ; [facility] Discussed concerns about exe rcise : promote physical activity Last Documented On 4 4:33PM ; [facility] offered active and suppo rtive listening and processed recent stressors. ~[facility] discussed coping skills and supports to implement in managing increased anxiety such as tools learned previously in therapy. ~[facility] discussed sleep hygiene strategies that can be implemented. ~[facility] encouraged patient to follow-up with specialists as scheduled Last Documented On 4 3:26PM ; [facility] Discussed nutritional needs teach healthy choices including fruits and vegetables Last Documented On 4 4:51PM ; [facility] Patient education about a pr oper diet Last Documented On 4 4:51PM ; [facility] Discussed concerns about exe rcise : promote physical activity Last Documented On 4 4:51PM ; [facility] Referred Patient to a Diabet es Self-Management Program Last Documented On 4 5:22PM ; [facility] offered active and suppo rtive listening and processed current stressors. ~[facility] discussed coping skills and supports that can be implemented to manage increased anxiety and stressors. [facility] discussed potential of resuming counseling, even if for monthly visits to process ongoing stressors. [facility] encouraged patient to follow- up on referrals as discussed with PCP Last Documented On 4 10:08AM ; [facility] Discussed nutritional needs teach healthy choices including fruits and vegetables Last Documented On 4 4:46PM ; [facility] Patient education about a pr oper diet Last Documented On 4 4:46PM ; [facility] Discussed concerns about exe rcise : promote physical activity Last Documented On 4 4:46PM ; [facility] Not requesting contraception Last Documented On 4 4:46PM ; [facility] offered active and suppo rtive listening and processed current stressors related to getting medications. ~[facility] discussed coping skills and supports to implement in daily routine. [facility] discussed progress patient has felt they have made recently and encouraged continued follow-up with providers to address health Last Documented On 4 5:16PM ; [facility] Discussed nutritional needs teach healthy choices including fruits and vegetables Last Documented On 4 7:14PM ; [facility] Patient education about a pr oper diet Last Documented On 4 7:14PM ; [facility] Discussed concerns about exe rcise : promote physical activity Last Documented On 4 7:14PM ; [facility] Not requesting contraception Last Documented On 4 7:14PM ; [facility] Discussed nutritional needs teach healthy choices including fruits and vegetables Last Documented On 3 5:15PM ; [facility] Patient education about a pr oper diet Last Documented On 3 5:15PM ; [facility] Discussed concerns about exe rcise : promote physical activity Last Documented On 3 5:15PM ; [facility] Discussed nutritional needs teach healthy choices including fruits and vegetables Last Documented On 2 1:42PM ; [facility] Patient education about a pr oper diet Last Documented On 2 1:42PM ; [facility] Discussed concerns about exe rcise : promote physical activity Last Documented On 2 1:42PM ; [facility] offered active listening and supportive feedback; normalized emotions and feelings, also provided pt time to process any current stressors. ~Promoted and encouraged follow-through with scheduling psychiatric services Last Documented On 2 3:21PM ; [facility] provided supportive, empa thic listening and reflective feedback. ~Explored, encouraged, and supported the pt to discuss current sx/mood, assess risk for harm/need, coping mechanisms, support network and safety planning. ~Supported pt's plan to f/up with Dr. Carney, as planned at [place], [place]. ~Encouraged pt to use safety plan, if needed to ensure she remains safe Last Documented On 2 2:27PM ; [facility] Discussed nutritional needs teach healthy choices including fruits and vegetables Last Documented On 2 3:20PM ; [facility] Patient education about a pr oper diet Last Documented On 2 3:20PM ; [facility] Discussed concerns about exe rcise : promote physical activity ~ ~Will restart trazodone and prazosin ~ ~Patient is planning to have brother stay with her for a few days for emotional support ~ ~Follow up with PCP at next scheduled visit ~ ~Call psychiatrist office to schedule appt ~ ~Call counselor Last Documented On 2 9:35AM ; [facility] Provided supportive listenin g and empathic feedback; encouraged, explored, and supported the pt as she processed current symptoms, Issues, and concerns. ~Discussed past tx and explored current needs/options. Acknowledged and validated pt's thoughts and emotions. ~Explored coping mechanisms and support network; utilized opportunity for safety planning; promoted seeking positive support and seeking help, as needed Last Documented On 2 3:28PM ; [facility] provided active listenin g, support and helped pt process though current symptoms and stressor(s). Discussed and explored past effectiveness of medication; identified objectives and future goals; promoted use of healthy coping mechanisms, and self-care practices Last Documented On 2 3:19PM ; [facility] Reviewed side effects and Ri sks/Benefits analysis Last Documented On 2 3:19PM ; [facility] Discussed nutritional needs teach healthy choices including fruits and vegetables Last Documented On 2 3:15PM ; [facility] Patient education about a pr oper diet Last Documented On 2 3:15PM ; [facility] Discussed concerns about exe rcise : promote physical activity Last Documented On 2 3:15PM ; [facility] introduced pt to HPWO in tegrated model [...] needed Last Documented On 2 4:07PM ; [facility] Discussed nutritional needs teach healthy choices including fruits and vegetables Last Documented On 2 3:15PM ; [facility] Patient education about a pr oper diet Last Documented On 2 3:15PM ; [facility] Inquiry and counseling about medication administration and compliance Last Documented On 2 7:37PM ; [facility] Discussed concerns about exe rcise : promote physical activity Last Documented On 2 3:15PM ; [facility] Patient goals discussed Last Documented On 2 7:37PM ; [facility] Ansewred pt's questions re B orderlline Personality D/O and Bipolar D/O raised by psychiatrist at [place]. ~Validated and normalized patient?s feelings while assisting to process recent events Last Documented On 1 1:33AM ; [facility] Discussed nutritional needs teach healthy choices including fruits and vegetables Last Documented On 1 2:04PM ; [facility] Patient education about a pr oper diet Last Documented On 1 2:04PM ; [facility] Discussed concerns about exe rcise : promote physical activity Last Documented On 1 2:04PM ; [facility] provided active listenin g, support and helped patient process through current symptoms and stressors with ongoing mental health concerns and medication changes. [facility] discussed coping skills and supports that patient is implementing. discussed implementing coping skills as discussed with counseling and attending weekly appointments as scheduled with counselor. Patient was encouraged to continue writing down concerns with medications and discuss with providers. [facility] reminded patient of crisis resources should they be needed. Patient reports having crisis resources and could return to ER Last Documented On 1 10:17AM ; [facility] Patient education about a pr oper diet Last Documented On 1 5:17PM ; [facility] Patient education about meal planning Last Documented On 5:17PM ; [facility] Education about changing eat ing habits Last Documented On 5:17PM ; [facility] Patient education about high fiber diet Last Documented On 5:17PM ; [facility] Patient education about low fat diet Last Documented On 1 5:17PM ; [facility] Patient education about low cholesterol diet Last Documented On 1 5:17PM ; [facility] Patient education about low carbohydrate diet Last Documented On 1 5:17PM ; [facility] Patient education about high protein diet Last Documented On 1 5:17PM ; [facility] offered active and suppo rtive listening, normalized emotions and feelings, and processed current stressors. [facility] discussed resources for finding a counselor and provided list of local resources. [facility] discussed patients coping skills and supports and encouraged patient to continue to implement. [facility] reminded patient of crisis resources should they be needed Last Documented On 1 7:15PM ; [facility] Discussed nutritional needs teach healthy choices including fruits and vegetables Last Documented On 1 11:38AM ; [facility] Patient education about a pr oper diet Last Documented On 1 11:38AM ; [facility] Patient education about a pr oper diet Last Documented On 1 12:19PM ; [facility] Patient education about meal planning Last Documented On 1 12:19PM ; [facility] Education about changing eat ing habits Last Documented On 1 12:19PM ; [facility] Patient education about high fiber diet Last Documented On 1 12:19PM ; [facility] Patient education about low fat diet Last Documented On 1 12:19PM ; [facility] Patient education about low cholesterol diet Last Documented On 1 12:19PM ; [facility] Patient education about low carbohydrate diet Last Documented On 1 12:19PM ; [facility] Patient education about high protein diet Last Documented On 1 12:19PM ; [facility] Discussed concerns about exe rcise : promote physical activity Last Documented On 1 11:38AM ; [facility] listen[facility], support and helped patient process through current symptoms and stressors related to family conflict. ~P discussed coping skills and supports with patient that can be implemented and reminded patient of ways to access additional resources. ~P discussed crisis resources and plan. Patient has crisis resources still available should they be needed Last Documented On 1 7:04PM ; [facility] Discussed nutritional needs teach healthy choices including fruits and vegetables Last Documented On 1 3:57PM ; [facility] Patient education about a pr oper diet Last Documented On 1 3:57PM ; [facility] Discussed concerns about exe rcise : promote physical activity Last Documented On 1 3:57PM ; [facility] to [facility] integrated model of care. BHP and PCP [...] down Last Documented On 1 11:46AM ; [facility] Discussed nutritional needs teach healthy choices including fruits and vegetables Last Documented On 1 2:11PM ; [facility] Patient education about a pr oper diet Last Documented On 1 2:11PM ; [facility] Discussed concerns about exe rcise : promote physical activity Last Documented On 1 2:11PM ; [facility] Work Phone: Instructions Includes: Instructions for all patient encounters Education and Decision Aids were provided during visit for: ~*P offered active and sup portive listening, normalized emotions and feelings, and processed ~current stressors. ~*Discussed engageing in counseling and looking into EMDR to address PTSD and increased nightmares Last Documented On 4 4:14PM ; [facility] Discussed nutritional needs teach healthy choices including fruits and vegetables Last Documented On 4 4:33PM ; [facility] Patient education about a pr oper diet Last Documented On 4 4:33PM ; [facility] Discussed concerns about exe rcise : promote physical activity Last Documented On 4 4:33PM ; [facility] offered active and suppo rtive listening and processed recent stressors. ~P discussed coping skills and supports to implement in managing increased anxiety such as tools learned previously in therapy. ~P discussed sleep hygiene strategies that can be implemented. ~[facility] encouraged patient to follow-up with specialists as scheduled Last Documented On 4 3:26PM ; [facility] Discussed nutritional needs teach healthy choices including fruits and vegetables Last Documented On 4 4:51PM ; [facility] Patient education about a pr oper diet Last Documented On 4 4:51PM ; [facility] Discussed concerns about exe rcise : promote physical activity Last Documented On 4 4:51PM ; [facility] Referred Patient to a Diabet es Self-Management Program Last Documented On 4 5:22PM ; [facility] offered active and suppo rtive listening and processed current stressors. ~P discussed coping skills and supports that can be implemented to manage increased anxiety and stressors. P discussed potential of resuming counseling, even if for monthly visits to process ongoing stressors. ~[facility] encouraged patient to follow- up on referrals as discussed with PCP Last Documented On 4 10:08AM ; [facility] Discussed nutritional needs teach healthy choices including fruits and vegetables Last Documented On 4 4:46PM ; [facility] Patient education about a pr oper diet Last Documented On 4 4:46PM ; [facility] Discussed concerns about exe rcise : promote physical activity Last Documented On 4 4:46PM ; [facility] Not requesting contraception Last Documented On 4 4:46PM ; [facility] offered active and suppo rtive listening and processed current stressors related to getting medications. ~P discussed coping skills and supports to implement in daily routine. ~[facility] discussed progress patient has felt they have made recently and encouraged continued follow-up with providers to address health Last Documented On 4 5:16PM ; [facility] Discussed nutritional needs teach healthy choices including fruits and vegetables Last Documented On 4 7:14PM ; [facility] Patient education about a pr oper diet Last Documented On 4 7:14PM ; [facility] Discussed concerns about exe rcise : promote physical activity Last Documented On 4 7:14PM ; [facility] Not requesting contraception Last Documented On 4 7:14PM ; [facility] Discussed nutritional needs teach healthy choices including fruits and vegetables Last Documented On 3 5:15PM ; [facility] Patient education about a pr oper diet Last Documented On 3 5:15PM ; [facility] Discussed concerns about exe rcise : promote physical activity Last Documented On 3 5:15PM ; [facility] Discussed nutritional needs teach healthy choices including fruits and vegetables Last Documented On 2 1:42PM ; [facility] Patient education about a pr oper diet Last Documented On 2 1:42PM ; [facility] Discussed concerns about exe rcise : promote physical activity Last Documented On 2 1:42PM ; [facility] offered active listening and supportive feedback; normalized emotions and feelings, also provided pt time to process any current stressors. ~Promoted and encouraged follow-through with scheduling psychiatric services Last Documented On 2 3:21PM ; [facility] provided supportive, empa thic listening and reflective feedback. ~Explored, encouraged, and supported the pt to discuss current sx/mood, assess risk for harm/need, coping mechanisms, support network and safety planning. ~Supported pt's plan to f/up with Dr. Carney, as planned at [place], [place]. ~Encouraged pt to use safety plan, if needed to ensure she remains safe Last Documented On 2 2:27PM ; [facility] Discussed nutritional needs teach healthy choices including fruits and vegetables Last Documented On 2 3:20PM ; [facility] Patient education about a pr oper diet Last Documented On 2 3:20PM ; [facility] Discussed concerns about exe rcise : promote physical activity ~ ~Will restart trazodone and prazosin ~ ~Patient is planning to have brother stay with her for a few days for emotional support ~ ~Follow up with PCP at next scheduled visit ~ ~Call psychiatrist office to schedule appt ~ ~Call counselor Last Documented On 2 9:35AM ; [facility] Provided supportive listenin g and empathic feedback; encouraged, explored, and supported the pt as she processed current symptoms, Issues, and concerns. ~Discussed past tx and explored current needs/options. Acknowledged and validated pt's thoughts and emotions. ~Explored coping mechanisms and support network; utilized opportunity for safety planning; promoted seeking positive support and seeking help, as needed Last Documented On 2 3:28PM ; [facility] provided active listenin g, support and helped pt process though current symptoms and stressor(s). Discussed and explored past effectiveness of medication; identified objectives and future goals; promoted use of healthy coping mechanisms, and self-care practices Last Documented On 2 3:19PM ; [facility] Reviewed side effects and Ri sks/Benefits analysis Last Documented On 2 3:19PM ; [facility] Discussed nutritional needs teach healthy choices including fruits and vegetables Last Documented On 2 3:15PM ; [facility] Patient education about a pr oper diet Last Documented On 2 3:15PM ; [facility] Discussed concerns about exe rcise : promote physical activity Last Documented On 2 3:15PM ; [facility] introduced pt to [facility] in tegrated model of care ~P offered active listening and supportive feedback; normalized emotions and feelings, also provided pt time to process any current stressors ~[facility] discussed potential benefits of counseling and supported re-engaging, as needed. ~P encouraged pt to continue to make time to implement self-care regimen and use coping methods, as needed Last Documented On 2 4:07PM ; [facility] Discussed nutritional needs teach healthy choices including fruits and vegetables Last Documented On 2 3:15PM ; [facility] Patient education about a pr oper diet Last Documented On 2 3:15PM ; [facility] Inquiry and counseling about medication administration and compliance Last Documented On 2 7:37PM ; [facility] Discussed concerns about exe rcise : promote physical activity Last Documented On 2 3:15PM ; [facility] Patient goals discussed Last Documented On 2 7:37PM ; [facility] Ansewred pt's questions re B orderlline Personality D/O and Bipolar D/O raised by psychiatrist at [place]. ~Validated and normalized patient?s feelings while assisting to process recent events Last Documented On 1 1:33AM ; [facility] Discussed nutritional needs teach healthy choices including fruits and vegetables Last Documented On 1 2:04PM ; [facility] Patient education about a pr oper diet Last Documented On 1 2:04PM ; [facility] Discussed concerns about exe rcise : promote physical activity Last Documented On 1 2:04PM ; [facility] provided active listenin g, support and helped patient process through current symptoms and stressors with ongoing mental health concerns and medication changes. [facility] discussed coping skills and supports that patient is implementing. discussed implementing coping skills as discussed with counseling and attending weekly appointments as scheduled with counselor. Patient was encouraged to continue writing down concerns with medications and discuss with providers. [facility] reminded patient of crisis resources should they be needed. Patient reports having crisis resources and could return to ER Last Documented On 1 10:17AM ; [facility] Patient education about a pr oper diet Last Documented On 5:17PM ; [facility] Patient education about meal planning Last Documented On 5:17PM ; [facility] Education about changing eat ing habits Last Documented On 5:17PM ; [facility] Patient education about high fiber diet Last Documented On 5:17PM ; [facility] Patient education about low fat diet Last Documented On 5:17PM ; [facility] Patient education about low cholesterol diet Last Documented On 5:17PM ; [facility] Patient education about low carbohydrate diet Last Documented On 5:17PM ; [facility] Patient education about high protein diet Last Documented On 5:17PM ; [facility] offered active and suppo rtive listening, normalized emotions and feelings, and processed current stressors. [facility] discussed resources for finding a counselor and provided list of local resources. [facility] discussed patients coping skills and supports and encouraged patient to continue to implement. [facility] reminded patient of crisis resources should they be needed Last Documented On 1 7:15PM ; [facility] Discussed nutritional needs teach healthy choices including fruits and vegetables Last Documented On 11:38AM ; [facility] Patient education about a pr oper diet Last Documented On 11:38AM ; [facility] Patient education about a pr oper diet Last Documented On 1 12:19PM ; [facility] Patient education about meal planning Last Documented On 12:19PM ; [facility] Education about changing eat ing habits Last Documented On 1 12:19PM ; [facility] Patient education about high fiber diet Last Documented On 1 12:19PM ; [facility] Patient education about low fat diet Last Documented On 1 12:19PM ; [facility] Patient education about low cholesterol diet Last Documented On 1 12:19PM ; [facility] Patient education about low carbohydrate diet Last Documented On 1 12:19PM ; [facility] Patient education about high protein diet Last Documented On 1 12:19PM ; [facility] Discussed concerns about exe rcise : promote physical activity Last Documented On 1 11:38AM ; [facility], support and helped patient process through current symptoms and stressors related to family conflict. ~P discussed coping skills and supports with patient that can be implemented and reminded patient of ways to access additional resources. ~P discussed crisis resources and plan. Patient has crisis resources still available should they be needed Last Documented On 1 7:04PM ; [facility] Discussed nutritional needs teach healthy choices including fruits and vegetables Last Documented On 1 3:57PM ; [facility] Patient education about a pr oper diet Last Documented On 1 3:57PM ; [facility] Discussed concerns about exe rcise : promote physical activity Last Documented On 1 3:57PM ; [facility] to [facility] integrated model of care. [facility] and PCP [...] down Last Documented On 1 11:46AM ; [facility] Discussed nutritional needs teach healthy choices including fruits and vegetables Last Documented On 1 2:11PM ; [facility] Patient education about a pr oper diet Last Documented On 1 2:11PM ; [facility] Discussed concerns about exe rcise : promote physical activity Last Documented On 1 2:11PM ; [facility] Work Phone: Patient problem outcome Narrative Includes: Evaluations & Outcomes for active Goals No [facility] Work Phone: Progress note* Progress note Date Encounter Last Documented by 07/29/2024 Chart Update Last documented on 07/29/2024; 12:07 PM, Denny Lomeli CNP; [facility] Active Problems & Conditions - F90.9 [...] EndCited Care Team - Denny Lomeli CNP [facility] (narrative)No Reason for Referral [facility]ed[facility] Work Phone: Review of systems Narrative - Reported Review of Systems not supported for this document type No Review of Systems [facility]ed[facility] Work Phone: Summary Purpose Family History Description [...] 03/17/2021 Last Documented On 1 4:06PM ; [facility] Fraternal history of psychiatric disorde rs 03/17/2021 Maternal history of hypertension 021 Maternal history of oncologic disorder 0 03/17/2021 Maternal history of psychiatric disorder s 03/17/2021 Paternal history of hypertension 021 Paternal history of oncologic disorder 0 03/17/2021 Description Last Updated Maternal history of epilepsy and recurre nt seizures 03/17/2021 Last Documented On 1 4:06PM ; [facility] Fraternal history of psychiatric disorde rs 03/17/2021 Maternal history of hypertension 021 Maternal history of oncologic disorder 0 03/17/2021 Maternal history of psychiatric disorder s 03/17/2021 Paternal history of hypertension 021 Paternal history of oncologic disorder 0 03/17/2021 Description Last Updated Maternal history of epilepsy and recurre nt seizures 03/17/2021 Last Documented On 1 4:06PM ; [facility] Fraternal history of psychiatric disorde rs 03/17/2021 Maternal history of hypertension 021 Maternal history of oncologic disorder 0 03/17/2021 Maternal history of psychiatric disorder s 03/17/2021 Paternal history of hypertension 021 Paternal history of oncologic disorder 0 03/17/2021 Description Last Updated Maternal history of epilepsy and recurre nt seizures 03/17/2021 Last Documented On 1 4:06PM ; [facility] Fraternal history of psychiatric disorde rs 03/17/2021 Maternal history of hypertension 021 Maternal history of oncologic disorder 0 03/17/2021 Maternal history of psychiatric disorder s 03/17/2021 Paternal history of hypertension 021 Paternal history of oncologic disorder 0 03/17/2021 Description Last Updated Maternal history of epilepsy and recurre nt seizures 03/17/2021 Last Documented On 1 4:06PM ; [facility] Fraternal history of psychiatric disorde rs 03/17/2021 Maternal history of hypertension 021 Maternal history of oncologic disorder 0 03/17/2021 Maternal history of psychiatric disorder s 03/17/2021 Paternal history of hypertension 021 Paternal history of oncologic disorder 0 03/17/2021 Description Last Updated Maternal history of epilepsy and recurre nt seizures 03/17/2021 Last Documented On 1 4:06PM ; [facility] Fraternal history of psychiatric disorde rs 03/17/2021 Maternal history of hypertension 021 Maternal history of oncologic disorder 0 03/17/2021 Maternal history of psychiatric disorder s 03/17/2021 Paternal history of hypertension 021 Paternal history of oncologic disorder 0 03/17/2021 Description Last Updated Maternal history of epilepsy and recurre nt seizures 03/17/2021 Last Documented On 1 4:06PM ; [facility] Fraternal history of psychiatric disorde rs 03/17/2021 Maternal history of hypertension 021 Maternal history of oncologic disorder 0 03/17/2021 Maternal history of psychiatric disorder s 03/17/2021 Paternal history of hypertension 021 Paternal history of oncologic disorder 0 03/17/2021 Description Last Updated Maternal history of epilepsy and recurre nt seizures 03/17/2021 Last Documented On 1 4:06PM ; [facility] Fraternal history of psychiatric disorde rs 03/17/2021 Maternal history of hypertension 021 Maternal history of oncologic disorder 0 03/17/2021 Maternal history of psychiatric disorder s 03/17/2021 Paternal history of hypertension 021 Paternal history of oncologic disorder 0 03/17/2021 Description Last Updated Maternal history of epilepsy and recurre nt seizures 03/17/2021 Last Documented On 1 4:06PM ; [facility] Fraternal history of psychiatric disorde rs 03/17/2021 Maternal history of hypertension 021 Maternal history of oncologic disorder 0 03/17/2021 Maternal history of psychiatric disorder s 03/17/2021 Paternal history of hypertension 021 Paternal history of oncologic disorder 0 03/17/2021 Description Last Updated Maternal history of epilepsy and recurre nt seizures 03/17/2021 Last Documented On 4:06PM ; [facility] Fraternal history of psychiatric disorde rs 03/17/2021 Maternal history of hypertension 021 Maternal history of oncologic disorder 0 03/17/2021 Maternal history of psychiatric disorder s 03/17/2021 Paternal history of hypertension 021 Paternal history of oncologic disorder 0 03/17/2021 Description Last Updated Maternal history of epilepsy and recurre nt seizures 03/17/2021 Last Documented On 1 4:06PM ; [facility] Fraternal history of psychiatric disorde rs 03/17/2021 Maternal history of hypertension 021 Maternal history of oncologic disorder 0 03/17/2021 Maternal history of psychiatric disorder s 03/17/2021 Paternal history of hypertension 021 Paternal history of oncologic disorder 0 03/17/2021 Description Last Updated Maternal history of epilepsy and recurre nt seizures 03/17/2021 Last Documented On 1 4:06PM ; [facility] Fraternal history of psychiatric disorde rs 03/17/2021 Maternal history of hypertension 021 Maternal history of oncologic disorder 0 03/17/2021 Maternal history of psychiatric disorder s 03/17/2021 Paternal history of hypertension 021 Paternal history of oncologic disorder 0 03/17/2021 Advance Directives Includes: Current Advance Directives No Advance Directives Recorded Documents on File Type Date Recorded Patient Correctional Cook Expl anation ACP-Advance Directive ACP-Power of Ultrasonic Hand Solderer Documents on File Type Date Recorded Patient Correctional Cook Expl anation ACP-Advance Directive ACP-Power of Ultrasonic Hand Solderer Physical Exam Physical Exam not supported for [...] Procedures Holter Monitor 48 Hour Denny Lomeli, PIN CHASER - [employer] P[employer] HAT MENDER [address] [place] [address] Additional Source Comments INFORMATION SOURCE (unrecogn ized section and content) DATE CREATED AUTHOR 04/18/[address] [facility] DATE CREATED AUTHOR AUTHOR'S ORGANIZ ATION 11/14/2020 [facility] DATE CREATED AUTHOR AUTHOR'S ORGANIZ ATION 04/15/2021 [facility] DATE CREATED AUTHOR AUTHOR'S ORGANIZ ATION 07/11/[address] [facility] DATE CREATED AUTHOR AUTHOR'S ORGANIZ ATION 07/27/2021 [facility] DATE CREATED AUTHOR AUTHOR'S ORGANIZ ATION 08/16/2022 [facility] DATE CREATED AUTHOR AUTHOR'S ORGANIZ ATION 03/01/2024 [facility] Reason for Visit (unrecogniz ed section and [...] Procedures Holter Monitor 48 Hour Denny Lomeli, PIN CHASER - [employer] P[employer]ER H[employer] MENDER [address] [place] [address] Scheduled Active and Recently Administ ered Medications [...] PRN, Itching, Starting on e 07/06/21 at [phone] (Given - Provid er: Denny Orozco RN) Care Teams (unrecognized sec tion and content) Post Framer Relationship Specialty Start Date End Date Denny Lomeli, PIN CH[employer]ER - [employer]ER HAT MENDER [address] [place] [address] PCP - General Family Medicine 04/09/21 FOR [...] BE BASED ON THE PRIMARY CLINICAL RECORDS. [facility]. provides no warranty or guarantee of the accuracy or completeness of information in this document.
== END 2024-08-13 10:48 | disposition home or self-care (01) ==
LOC: PST 10:48
PROVIDERS: PCP Nurse Practitioner Family; Visit Provider Obstetrics & Gynecology
DX: Z01.818 Encounter for other preprocedural examination (principal); N93.8 Other specified abnormal uterine and vaginal bleeding
CPT/HCPCS: 80048

== ENCOUNTER 2024-08-13 21:14 | Emergency (ER) | payer OTHER, SELFPAY ==
--- OUTSIDE RECORDS SUMMARY | 2024-08-13 21:22 | XMS_ITS | CCD ---
Author Organization [facility] Care Team Providers Care Nuclear Medicine Technologist Name Role Phone MARIBEL ASTORGA MD Unavailable Unavailab le MARIBEL ASTORGA MD Unavailable Unavailab jazmin NONE Unavailable Unavailable ADDIS BARBER Attending Unavailable ADDIS BARBER Consulting Unavailable ADDIS BARBER Admitting Unavailable Armani CHAVEZ, Denny Primary Care Provider Armani OPINION POLLS SURVEY WORKER - SCOTT, Denny M Primary Care Provider LARRY ESPINOZA [...] ARMANI, DENNY M Primary Care Unavailable Armani OPINION POLLS SURVEY WORKER - CUSTOMER SERVICE ASSISTANT, Denny M Primary Care Provider ARMANI, DENNY M Referring Unavailable ARMANI, DENNY M Primary Care Unavailable Armani SCOTT, Denny Primary Care Provider [phone] ARMANI, DENNY M Primary Care Unavailable MABLE RO Attending Unavailable MABLE RO Attending Unavailable MABLE RO Referring Unavailable ARMANI, DENNY M Primary Care Unavailable Armani SCOTT, Denny Unavailable SHIVANI DONATO Attending Unavailable Allergies Allergy Classification Reported Allergen(s) Allergy Type Date of Onset Reaction(s) Facility Amoxicillin / Clavulanate (6 sources) Amoxicillin / Clavulanate; Translations: [Augmentin 500-125 MG Oral Tablet] Drug Allergy 1 [facility] ARIPiprazole (6 sources) ARIPiprazole; Translations: [Abilify] Drug Allergy 1 [facility] metFORMIN (6 sources) metFORMIN; Translations: [metformin] Drug Allergy 1 Nausea, Vomiting [facility] Serotonin Reuptake Inhibitors (SSRIs) (7 sources) Sertraline; Translations: [trazodone hydrochloride] Drug Allergy 1 Panic attack, slow/groggy [facility] Unclassified (6 sources) Amoxicillin-Pot Clavulanate; Translations: [AMOXICILLIN-PO T CLAVULANATE] Propensity to adverse reactions to drug 7 [facility] (1 source) Amoxicillin / Clavulanate Drug Allergy 4 [facility] Repository (20 sources) Amoxicillin / Clavulanate; Translations: [Augmentin 500-125 MG Oral Tablet] Drug Allergy 1 [facility] (20 sources) ARIPiprazole; Translations: [Abilify] Drug Allergy 1 [facility] (20 sources) metFORMIN; Translations: [METFORMIN] Drug Allergy 0 Nausea, Vomiting [facility] (15 sources) Sertraline Drug Allergy 1 slow/ [facility] (4 sources) traZODone Drug Allergy 2 Panic attack [facility] (1 source) nickel; Translations: [NICKEL] Drug Allergy 7 [facility] (1 source) CARBONIC ANHYDRASE INHIBITORS; Translations: [CARBONIC ANHYDRASE INHIBITORS] Propensity to adverse reactions to drug (disorder) 7 [facility] (8 sources) Sertraline Drug Allergy 4 slow/groggy [facility] (8 sources) traZODone Drug Allergy 4 Panic attack [facility] Medications Current Medications Medication Drug Class(es) Dates [...] 5 MG Oral Tablet 06/13/2024 Provider: Denny Lomeli CNP LORazepam 0.5 mg oral tablet (3 sources) [...] as needed 0 Active polyethylene glycol 3350 39417 mg powder for oral solution (20 sources) [...] oral solution (20 sources) alpha-Adrenergic Agonist, Uncompetitive B-shonlz-Q-aspartat e Receptor Antagonist, Sigma-1 Agonist Start: 04-22-2021 [...] / neomycin 3.5 mg/ml / polymyxin b 47572 unt/ml otic suspension (20 sources) Aminoglycoside Antibacterial, Polymyxin-class Antibacterial, Corticosteroid Start: 04-23-2021 End: 06-17-2021 Dtlzmfua-Xejskltrb-WP 3.5-44040-7 Otic Suspension 04/23/2021 - 06/17/2021 Provider: Denny [...] Tablet 01/17/2024 - 07/11/2024 Provider: Denny Lomeli CNP Start: 06-08-2021 End: 08-12-2022 traZODone HCl 50 [...] Ferritin [Mass/Vol] 118 ng/mL (15-150 ) [facility] Free T3 [Mass/Vol] 3.2 pg/mL (2.0-4.4 ) [facility] Free T4 [Mass/Vol] 1.13 ng/dL (0.82-1.7 7 ) [facility] Iron [Mass/Vol] 52 ug/dL (27-159 ) [facility] Iron binding capacity [Mass/Vol] 396 ug/dL (250-450 ) [facility] Iron binding capacity.unsaturated [Mass/Vol] 344 ug/dL (131-425 ) [facility] Iron saturation [Mass fraction] 13 % Low (15-55 ) [facility] TSH Qn 2.930 uIU/mL (0.450-4.50 0 ) [facility] Laboratory - Hematology and Cell countson 06-13-2024 Basophils (Bld) [#/Vol] 0.1 10*3/uL (0.0-0.2 ) [facility] Basophils/100 WBC (Bld) 0 % (Not Estab. ) [facility] Eosinophils (Bld) [#/Vol] 0.2 10*3/uL (0.0-0.4 ) [facility] Eosinophils/100 WBC (Bld) 1 % (Not Estab. ) [facility] Erythrocyte distribution width (RBC) [Ratio] 15.7 % High (11.7-15.4 ) [facility] Hematocrit (Bld) [Volume fraction] 41.3 % (34.0-46.6 ) [facility] Hemoglobin (Bld) [Mass/Vol] 12.9 g/dL (11.1-15.9 ) [facility] Immature granulocytes (Bld) [#/Vol] 0.1 10*3/uL (0.0-0.1 ) [facility] Immature granulocytes/100 WBC (Bld) 1 % (Not Estab. ) [facility] Lymphocytes (Bld) [#/Vol] 2.4 10*3/uL (0.7-3.1 ) [facility] Lymphocytes/100 WBC (Bld) 18 % (Not Estab. ) [facility] MCH (RBC) [Entitic mass] 24.3 pg Low (26.6-33.0 ) [facility] MCHC (RBC) [Mass/Vol] 31.2 g/dL Low (31.5- 35.7 ) [facility] MCV (RBC) [Entitic vol] 78 fL Low (79-97 ) [facility] Monocytes (Bld) [#/Vol] 0.6 10*3/uL (0.1-0.9 ) [facility] Monocytes/100 WBC (Bld) 5 % (Not Estab. ) [facility] Morphology Ramesh (Bld) [Interp] DIRECTOR OF FUNDRAISING [facility] Neutrophils (Bld) [#/Vol] 9.7 10*3/uL High (1.4-7.0 ) [facility] Neutrophils/100 WBC (Bld) 75 % (Not Estab. ) [facility] Nucleated RBC/100 WBC (Bld) [Ratio] DIRECTOR OF FUNDRAISING [facility] Platelets (Bld) [#/Vol] 308 10*3/uL (150-450 ) [facility] RBC (Bld) [#/Vol] 5.31 10*6/uL High (3.77-5.28 ) [facility] WBC (Bld) [#/Vol] 13.1 10*3/uL High (3.4-10.8 ) [facility] - Serology - non- microon 06-13-2024 Thyroglobulin Ab Qn [IU]/mL (0.0-0.9 ) [facility] Comment on above: Note: Thyroglobulin Antibody measured by Frankie CoulterMethodology .It should be noted that the presence of thyroglobulinantibodies may not be pathogenic nor diagnostic, especiallyat very low levels. The assay communications controller has found thatfour percent of individuals without evidence of thyroiddisease or autoimmunity will have positive TgAb levels upto 4 IU/mL. TPO Ab Qn 14 [IU]/mL (0-34 ) [facility] No Panel Informationon 06-13 Immature Cells DIRECTOR OF FUNDRAISING [facility] Reported Physicians See Note [facility] Comment on above: Note: Reported Physi cians:Ordering: Denny Lomeli Troponin I.cardiac High sens itivity method [Mass/Vol]on 02-29-2024 1 HOUR TROP I, HIGH SENSITIVITY <2 Normal <16 [facility] Comment on above: Performed By: #### 8 9579-7 #### [facility] ([id number]) [address] [place] [address] 39699 BASIC METABOLIC PANLon 02-27 Anion gap [Moles/Vol] 7 mmol/L Normal 5-15 [facility] Comment on above: Performed By: #### C BCA, BMP, 20633-4, 20552-8, 89448-7 #### [facility] ([id number]) [address] [place] [address] 51569 Calcium [Mass/Vol] 8.9 mg/dL Normal 8.5-10.5 [facility] Comment on above: Performed By: #### C BCA, BMP, 68081-4, 17661-4, 49411-6 #### [facility] ([id number]) [address] [place] [address] 35450 Chloride [Moles/Vol] 101 mmol/L Normal 98-109 [facility] Comment on above: Performed By: #### C BCA, BMP, 92004-3, 75450-1, 42191-8 #### [facility] ([id number]) [address] [place] [address] 17337 CO2 [Moles/Vol] 28 mmol/L Normal 22-32 [facility] Comment on above: Performed By: #### C BCA, BMP, 32782-8, 68279-3, 26563-7 #### [facility] ([id number]) [address] [place] [address] 08938 Creatinine [Mass/Vol] 0.91 mg/dL Normal 0.40-1.00 [facility] Comment on above: Result Comment: METH OD TRACEABLE TO IDMS STANDARD Performed By: #### C BCA, BMP, 82101-0, 04824-7, 09310-6 #### [facility] ([id number]) [address] [place] [address] 47523 eGFR (CKD-EPI) NON-RACE DEPENDENT >90 Normal >59 [facility] Comment on above: Result Comment: Reported eGFR is based on the CKD-EPI 2020 equation that does not use a race coefficient. Performed By: #### C BCA, BMP, 36068-2, 59034-2, 63193-9 #### [facility] ([id number]) [address] [place] [address] 37752 Glucose [Mass/Vol] 107 mg/dL High 65-99 [facility] Comment on above: Performed By: #### C BCA, BMP, 81472-9, 02338-5, 99431-6 #### [facility] ([id number]) [address] [place] [address] 43326 Potassium [Moles/Vol] 3.5 mmol/L Normal 3.5-5.0 [facility] Comment on above: Performed By: #### C BCA, BMP, 20651-3, 16436-1, 67405-1 #### [facility] ([id number]) [address] [place] [address] 38508 Sodium [Moles/Vol] 136 mmol/L Normal 134-146 [facility] Comment on above: Performed By: #### C MARIETTA, BMP, , 86020-4, 21020-6 #### [facility] ([id number]) [address] [place] [address] 12214 Urea nitrogen [Mass/Vol] 10 mg/dL Normal 5-23 [facility] Comment on above: Performed By: #### C MARIETTA, BMP, , 59802-4, 99049-3 #### [facility] ([id number]) [address] [place] [address] 24425 CBC AND AUTO DIFFon 02-28-20 24 ABSOLUTE BASOPHIL 0.2 X10E9/L Normal 0.0-0.2 [facility] Comment on above: Performed By: #### C MARIETTA, BMP, , 19165-7, 15484-2 #### [facility] ([id number]) [address] [place] [address] 61793 ABSOLUTE NEUTROPHIL 10.7 X10E9/L High 1.5-6.6 [facility] Comment on above: Performed By: #### C MARIETTA, BMP, , 67327-7, 33649-9 #### [facility] ([id number]) [address] [place] [address] 77780 Basophils/100 WBC (Bld) 1.1 % Normal [facility] Comment on above: Performed By: #### C MARIETTA, BMP, , 62710-2, 33572-5 #### [facility] ([id number]) [address] [place] [address] 78468 Eosinophils (Bld) [#/Vol] 0.2 10*3/uL Normal 0.0-0.4 [facility] Comment on above: Performed By: #### C BCA, BMP, 76616-6, 41272-3, 81958-9 #### [facility] ([id number]) [address] [place] [address] 30369 Eosinophils/100 WBC (Bld) 1.3 % Normal [facility] Comment on above: Performed By: #### C BCA, BMP, , 69450-8, 36467-1 #### [facility] ([id number]) [address] [place] [address] 78286 Erythrocyte distribution width (RBC) [Ratio] 19.4 % High 11.5-15.0 [facility] Comment on above: Performed By: #### C BCA, BMP, , 08693-0, 99191-3 #### [facility] ([id number]) [address] [place] [address] 93436 Hematocrit (Bld) [Volume fraction] 33.5 % Low 35-47 [facility] Comment on above: Performed By: #### C BCA, BMP, , 60833-3, 66948-5 #### [facility] ([id number]) [address] [place] [address] 31942 Hemoglobin (Bld) [Mass/Vol] 10.6 g/dL Low 11.7-15.5 [facility] Comment on above: Performed By: #### C BCA, BMP, , 46543-0, 28940-8 #### [facility] ([id number]) [address] [place] [address] 58382 Lymphocytes (Bld) [#/Vol] 2.4 10*3/uL Normal 1.0-3.5 [facility] Comment on above: Performed By: #### C BCA, BMP, , 54234-4, 05965-1 #### [facility] ([id number]) [address] [place] [address] 76302 Lymphocytes/100 WBC (Bld) 17.2 % Normal [facility] Comment on above: Performed By: #### C BCA, BMP, 00104-5, 24759-6, 61262-4 #### [facility] ([id number]) [address] [place] [address] 82995 MCH (RBC) [Entitic mass] 21.7 pg Low 27-34 [facility] Comment on above: Performed By: #### C MARIETTA, BMP, 91452-6, 03663-3, 04261-5 #### [facility] ([id number]) [address] [place] [address] 89709 MCHC (RBC) [Mass/Vol] 31.6 g/dL Low 32-36 [facility] Comment on above: Performed By: #### C MARIETTA, BMP, , 82772-9, 86491-9 #### [facility] ([id number]) [address] [place] [address] 61548 MCV (RBC) [Entitic vol] 69 fL Low 80-100 P [facility] Comment on above: Performed By: #### Maryjo MCMANUS, BMP, , 98574-4, 10961-8 #### [facility] ([id number]) [address] [place] [address] 54631 Monocytes (Bld) [#/Vol] 0.7 10*3/uL Normal 0-0.9 [facility] Comment on above: Performed By: #### Maryjo MCMANUS, BMP, 06361-2, 01650-0, 09115-3 #### [facility] ([id number]) [address] [place] [address] 40407 Monocytes/100 WBC (Bld) 4.8 % Normal P [facility] Comment on above: Performed By: #### C BCA, BMP, 40114-5, 11394-2, 74330-5 #### [facility] ([id number]) [address] [place] [address] 08668 Neutrophils/100 WBC (Bld) 75.6 % Normal [facility] Comment on above: Performed By: #### Maryjo BCA, BMP, 41735-2, 35356-7, 19888-8 #### [facility] ([id number]) [address] [place] [address] 95745 Platelet mean volume (Bld) [Entitic vol] 6.6 fL Low 7-12 [facility] Comment on above: Performed By: #### Maryjo BCA, BMP, 66235-8, 05726-1, 70917-9 #### [facility] ([id number]) [address] [place] [address] 97416 Platelets (Bld) [#/Vol] 333 10*3/uL Normal 150-450 [facility] Comment on above: Performed By: #### Maryjo MCMANUS, BMP, 76144-3, 07354-1, 74626-6 #### [facility] ([id number]) [address] [place] [address] 83363 RBC COUNT 4.88 X10E12/L Normal 3.80-5.20 [facility] Comment on above: Performed By: #### Maryjo BCA, BMP, 21169-7, 98779-5, 71427-9 #### [facility] ([id number]) [address] [place] [address] 69903 RBC morphology finding Nom (Bld) REVIEWED Normal [facility] Comment on above: Performed By: #### Maryjo BCA, BMP, 76441-3, 47321-5, 71775-0 #### [facility] ([id number]) [address] [place] [address] 47964 WBC (Bld) [#/Vol] 14.1 10*3/uL High 4.0-11.0 [facility] Comment on above: Performed By: #### C VERONIQUE MCMANUS, , 16924-2, 78637-7 #### [facility] ([id number]) [address] [place] [address] 48960 Fibrin D-dimer DDU (PPP) [Ma ss/Vol]on 02-28-2024 D DIMER <150 Normal <255 [facility] Comment on above: Result Comment: Results <255 ng/mL DDU: The presence of a VTE can safely be excluded with a negative D-Dimer result and Wells score. A negative result doesn't exclude the possibility of DIC. The test be repeated along with other diagnostic tests if the patient's symptoms persist or worsen. [email or web address] Performed By: #### C VERONIQUE MCMANUS, , 06616-2, 24472-1 #### [facility] ([id number]) [address] [place] [address] 14653 MAGNESIUMon 02-28-2024 Magnesium [Mass/Vol] 1.8 mg/dL Normal 1.8-2.6 [facility] Comment on above: Performed By: #### C VERONIQUE MCMANUS, , 81861-4, 02808-0 #### [facility] ([id number]) [address] [place] [address] 92585 Troponin I.cardiac High sens itivity method [Mass/Vol]on 02-28-2024 TROPONIN I, HIGH SENSITIVITY <2 Normal <16 [facility] Comment on above: Performed By: #### C VERONIQUE MCMANUS, , 08016-5, 59199-1 #### [facility] ([id number]) [address] [place] [address] 05521 XR CHEST 2 VWSon 02-28-2024 XR CHEST 2 VWS XR CHEST 2 VWS XR CHEST 2 VWS History: . chest discomfort. Comparison: 03/30/2020 Impression: No acute pulmonary process. No pneumothorax or pleural effusion. Nonenlarged heart. Finalized by Ilir Amaya MD on 02/28/2024 9:49 PM Normal [facility] Chlamydia/GC DNA, Uron 08-15 Chlamydia Probe, Ur Negative Normal NEG [facility] Comment on above: Result Comment: CHLA [...] acid target. Performed By: #### T RCMOL, UCGP #### [employer] [address] [place], [place] [id number] Credit And Collection Manager: Soren Gracia MD Gonorrhea Probe, Ur Negative Normal NEG [facility] Comment on above: Result Comment: NEIS [...] acid target. Performed By: #### T RCMOL, UCGP #### [facility] [place], [place] [id number] Credit And Collection Manager: Soren Gracia MD Trich Vag, Molecularon 08-13 Trich Vag, Molecular Negative Normal NEG [facility] Comment on above: Result Comment: T. v [...] years of age. Performed By: #### T RCBIJAN UCGP #### [facility] [address] [place], [place] [id number] Credit And Collection Manager: Soren Gracia MD Source: .URINE Normal [facility] Comment on above: Performed By: #### T NADEGE, UCGP #### [facility] [address] [place], [place] [address] Credit And Collection Manager: Soren Gracia MD Acetaminophenon 07-06-2021 Acetaminophen [Mass/Vol] ug/mL Low 10-30 [facility] Comment on above: Performed By: #### C OVRB #### [facility] [address] [place] [address] Credit And Collection Manager: Garrett Perez MD Acetaminophen LevelOrdered B y: Kalyan Irizarry on 07-06-2021 Acetaminophen Level <5 Low 10 - 30 ug/mL [employer] Phone: Interpretation and review of laboratory results Abnormal [employer] Phone: [employer] Phone: CBC Auto DifferentialOrdered By: Kalyan Irizarry on 07-06-2021 Absolute Eos # 0.62 High [employer] Phone: Absolute Immature Granulocyte 0.07 [employer] Phone: Absolute Lymph # 3.20 [employer] Phone: Absolute [place] # 0.89 [employer] Phone: Basophils (Bld) [#/Vol] 0.10 10*3/uL [employer] Phone: Basophils/100 WBC (Bld) 1 % 0 - 2 % [facility]: Differential Type NOT REPORTED [employer] Phone: Eosinophils/100 WBC (Bld) 5 % High 1 - 4 % [employer] Phone: Hematocrit (Bld) [Volume fraction] 43.4 % 36.3 - 47.1 % [employer] Phone: Hemoglobin.gastrointest inal spec 1 Ql (Stl) 14.6 g/dL 11.9 - 15.1 g/dL [employer] Phone: Immature granulocytes/100 WBC (Bld) 1 % High 0 [employer] Phone: Interpretation and review of laboratory results Abnormal [employer] Phone: Lymphocytes/100 WBC (Bld) 26 % 24 - 43 % [employer] Phone: MCH (RBC) [Entitic mass] 28.3 pg 25.2 - 33.5 pg [employer] Phone: MCHC (RBC) [Mass/Vol] 33.6 g/dL 28.4 - 34.8 g/dL [employer] Phone: MCV (RBC) [Entitic vol] 84.3 fL 82.6 - 102.9 fL [employer] Phone: Monocytes/100 WBC (Bld) 7 % 3 - 12 % M [employer] Phone: NRBC Automated 0.0 0.0 per 100 WBC [employer] Phone: Platelet distribution width (Bld) [Ratio] 12.3 % 11.8 - 14.4 % [employer] Phone: Platelet Estimate NOT REPORTED [employer] Phone: Platelet mean volume (Bld) [Entitic vol] 8.7 fL 8.1 - 13.5 fL [employer] Phone: Platelets (Bld) [#/Vol] 273 10*3/uL [employer] Phone: RBC (Bld) [#/Vol] 5.15 10*6/uL High 3.95 - 5.1 1 m/uL [facility]: RBC (Bld) [#/Vol] NOT REPORTED [employer] Phone: Segmented neutrophils/100 WBC (Bld) 60 % 36 - 65 % [employer] Phone: Segs Absolute 7.61 [facility]: WBC (Bld) [#/Vol] 12.5 10*3/uL High [facility]: WBC (Bld) [#/Vol] NOT REPORTED [facility]: [employer] Phone: CBC with Diffon 07-06-2021 Abs. Basophil 0.10 k/uL Normal 0.00-0.20 [facility] Comment on above: Performed By: #### D AU #### [facility] [address] [place], [place] [phone] Credit And Collection Manager: Garrett Perez MD Abs.Imm.Granulocyte 0.07 k/uL Normal 0.00-0.30 [facility] Comment on above: Performed By: #### D AU #### [facility] [address] [place], [place] [address] Credit And Collection Manager: Garrett Perez MD Abs.Neutrophil (Seg) 7.61 k/uL Normal 1.50-8.10 [facility] Comment on above: Performed By: #### D AU #### [facility] [address] [place] [address] Credit And Collection Manager: Garrett Perez MD Basophils/100 WBC (Bld) 1 % Normal 0-2 M [facility] Comment on above: Performed By: #### D AU #### [facility] [address] [place] [address] Credit And Collection Manager: Garrett Perez MD Eosinophils (Bld) [#/Vol] 0.62 10*3/uL High 0.00-0.44 [facility] Comment on above: Performed By: #### D AU #### [facility] [address] [place] [address] [place], [place] [id number] Credit And Collection Manager: Garrett Perez MD Eosinophils/100 WBC (Bld) 5 % High 1-4 [facility] Comment on above: Performed By: #### D AU #### [address] [place] [address] Credit And Collection Manager: Garrett Perez MD Erythrocyte distribution width (RBC) [Ratio] 12.3 % Normal 11.8-14.4 [facility] Comment on above: Performed By: #### D AU #### [address] [place], [facility] ( Credit And Collection Manager: Garrett Perez MD Hematocrit (Bld) [Volume fraction] 43.4 % Normal 36.3-47.1 [facility] Comment on above: Performed By: #### D AU #### [address] [place], [facility] Credit And Collection Manager: Garrett Perez MD Hemoglobin (Bld) [Mass/Vol] 14.6 g/dL Normal 11.9-15.1 [facility] Comment on above: Performed By: #### D AU #### [address] [place] [address] Credit And Collection Manager: Garrett Perez MD Immature granulocytes/100 WBC (Bld) 1 % High 0 [facility] Comment on above: Performed By: #### D AU #### [address] [place], [place] [id number] Credit And Collection Manager: Garrett Perez MD Lymphocytes (Bld) [#/Vol] 3.20 10*3/uL Normal 1.10-3.70 [facility] Comment on above: Performed By: #### D AU #### [facility] [address] [place] [address] Credit And Collection Manager: Garrett Perez MD Lymphocytes/100 WBC (Bld) 26 % Normal 24-43 [facility] Comment on above: Performed By: #### D AU #### [facility] [address] [place], [facility] ( Credit And Collection Manager: Garrett Perez MD MCH (RBC) [Entitic mass] 28.3 pg Normal 25.2-33.5 [facility] Comment on above: Performed By: #### D AU #### [address] [place] [id number] ( Credit And Collection Manager: Garrett Perez MD MCHC (RBC) [Mass/Vol] 33.6 g/dL Normal 28.4-34.8 [facility] Comment on above: Performed By: #### D AU #### [address] [place], [place] [address] Credit And Collection Manager: Garrett Perez MD MCV (RBC) [Entitic vol] 84.3 fL Normal 82.6-102.9 [facility] Comment on above: Performed By: #### D AU #### [address] [place], [place] [address] Credit And Collection Manager: Garrett Perez MD Monocytes (Bld) [#/Vol] 0.89 10*3/uL Normal 0.10-1.20 [facility] Comment on above: Performed By: #### D AU #### [address] [place], [facility] Credit And Collection Manager: Garrett Perez MD Monocytes/100 WBC (Bld) 7 % Normal 3-12 [facility] Comment on above: Performed By: #### D AU #### [address] [place], [place] 9328783 Credit And Collection Manager: Garrett Perez MD Neutrophil (Seg) 60 % Normal 36-65 [facility] Comment on above: Performed By: #### D AU #### [facility] [address] [place] [address] [address] [place], [place] 7306983 Credit And Collection Manager: Garrett Perez MD NRBC Automated 0.0 per [address] [facility] Comment on above: Performed By: #### D AU #### [facility] [address] [place] [address] [address] [place], [place] [id number] Credit And Collection Manager: Garrett Perez MD Platelet mean volume (Bld) [Entitic vol] 8.7 fL Normal 8.1-13.5 [facility] Comment on above: Performed By: #### D AU #### [address] [place], [place] 3660983 Credit And Collection Manager: Garrett Perez MD Platelets (Bld) [#/Vol] 273 10*3/uL Normal 138-453 [facility] Comment on above: Performed By: #### D AU #### [address] [place], [place] 6943283 Credit And Collection Manager: Garrett Perez MD RBC (Bld) [#/Vol] 5.15 10*6/uL High 3.95-5.11 [facility] Comment on above: Performed By: #### D AU #### [facility] [address] [place] [address] [address] [place], [place] 6574083 Credit And Collection Manager: Garrett Perez MD WBC (Bld) [#/Vol] 12.5 10*3/uL High 3.5-11.3 [facility] Comment on above: Performed By: #### D AU #### [facility] [address] [place] [address] [address] [place], [place] 6413983 Credit And Collection Manager: Garrett Perez MD Auto Diff Performed NOT REPORTED Normal [facility] Comment on above: Performed By: #### D AU #### [facility] [address] [place], [place] 2686983 Credit And Collection Manager: Garrett Perez MD Platelet Estimate NOT REPORTED Normal [facility] Comment on above: Performed By: #### D AU #### [facility] [address] [place], [place] [id number] Credit And Collection Manager: Garrett Perez MD RBC morphology finding Nom (Bld) NOT REPORTED Normal [facility] Comment on above: Performed By: #### D AU #### [facility] [address] [place] [address] Credit And Collection Manager: Garrett Perez MD WBC Morphology NOT REPORTED Normal [facility] Comment on above: Performed By: #### D AU #### [facility] [address] [place], [place] 1493283 Credit And Collection Manager: Garrett Perez MD COVID-19, RapidOrdered By: Maryjo Irizarry on 07-06-2021 SARS-CoV-2 (COVID-19) RNA MORENA+probe Ql (Unsp spec) Not detected Not Detected [facility] Work Phone: Comment on above: Rapid [...] management decisions. Fact sheet for Healthcare Providers: https://www.fda.gov/media/841741/download Fact sheet for Patients: https://www.fda.gov/media/122425/download Methodology: Isothermal Nucleic Acid Amplification Specimen Description .NASOPHARYNGEAL SWAB [facility] Work Phone: [facility] Work Phone: Comp Metabolic Profon 2020 (cont.) Normal [facility] Comment on above: Result Comment: Aver age GFR for 20-29 years old: 116 mL/min/1.73sq m Chronic Kidney Disease: <60 mL/min/1.73sq m Kidney failure: <15 mL/min/1.73sq m eGFR calculated using average adult body mass. Additional eGFR calculator available at: http://www.W-21/multiple_crcl_2011.htm Performed By: #### D AU #### [facility] [address] [place] [address] Credit And Collection Manager: Garrett Perez MD Albumin [Mass/Vol] 4.2 g/dL Normal 3.5-5.2 [facility] Comment on above: Performed By: #### D AU #### [facility] [address] [place], [place] 0872583 Credit And Collection Manager: Garrett Perez MD Albumin/Glob Ratio 1.4 Normal 1.0-2.5 [facility] Comment on above: Performed By: #### D AU #### [facility] [address] [place], [place] [id number] Credit And Collection Manager: Garrett Perez MD Alkaline Phos 74 U/L Normal 35-104 [facility] Comment on above: Performed By: #### D AU #### [facility] [address] [place], [place] 6829683 Credit And Collection Manager: Garrett Perez MD ALT [Catalytic activity/Vol] 31 U/L Normal 5-33 [facility] Comment on above: Performed By: #### D AU #### [facility] [address] [place] [address] Credit And Collection Manager: Garrett Perez MD Anion gap [Moles/Vol] 13 mmol/L Normal 9-17 [facility] Comment on above: Performed By: #### D AU #### [facility] [address] [place], [place] 2175983 Credit And Collection Manager: Garrett Perez MD AST [Catalytic activity/Vol] 19 U/L Normal <32 [facility] Comment on above: Performed By: #### D AU #### [facility] [address] [place], [place] 3165783 Credit And Collection Manager: Garrett Perez MD Bilirubin [Mass/Vol] 0.17 mg/dL Low 0.3-1.2 [facility] Comment on above: Performed By: #### D AU #### [facility] [address] [place] [address] [place]. [place], [place] 0218483 Credit And Collection Manager: Garrett Perez MD BUN/CRE Ratio 7 Low 9-20 [facility] Comment on above: Performed By: #### D AU #### [facility] [address] [place] [address] [place] [address] Credit And Collection Manager: Garrett Perez MD Calcium [Mass/Vol] 9.2 mg/dL Normal 8.6-10.4 [facility] Comment on above: Performed By: #### D AU #### [facility] [address] [place] [address] Credit And Collection Manager: Garrett Perez MD Chloride [Moles/Vol] 104 mmol/L Normal 98-107 [facility] Comment on above: Performed By: #### D AU #### [facility] [address] [place] [address] Credit And Collection Manager: Garrett Perez MD CO2 [Moles/Vol] 20 mmol/L Normal 20-31 [facility] Comment on above: Performed By: #### D AU #### [facility] [address] [place], [place] 0714383 Credit And Collection Manager: Garrett Perez MD Creatinine [Mass/Vol] 0.82 mg/dL Normal 0.50-0.90 [facility] Comment on above: Performed By: #### D AU #### [facility] [address] [place], [place] 9886383 Credit And Collection Manager: Garrett Perez MD GFR, Amer >60 Normal >60 [facility] Comment on above: Performed By: #### D AU #### [facility] [address] [place], [place] [id number] Credit And Collection Manager: Garrett Perez MD GFR,non Amer >60 Normal >60 [facility] Comment on above: Performed By: #### D AU #### [facility] [address] [place], [place] 0385183 Credit And Collection Manager: Garrett Perez MD Glucose [Mass/Vol] 100 mg/dL High 70-99 [facility] Comment on above: Performed By: #### D AU #### [facility] [address] [place], [place] 6602183 Credit And Collection Manager: Garrett Perez MD Potassium [Moles/Vol] 4.0 mmol/L Normal 3.7-5.3 [facility] Comment on above: Performed By: #### D AU #### [facility] [address] [place] [address] [place] [address] Credit And Collection Manager: Garrett Perez MD Protein [Mass/Vol] 7.2 g/dL Normal 6.4-8.3 [facility] Comment on above: Performed By: #### D AU #### [facility] [address] [place], [place] 7912883 Credit And Collection Manager: Garrett Perez MD Sodium [Moles/Vol] 137 mmol/L Normal 135-144 [facility] Comment on above: Performed By: #### D AU #### [facility] [address] [place] [address] Credit And Collection Manager: Garrett Perez MD Staging: Normal [facility] Comment on above: Result Comment: Stag e 1: Some kidney damage normal GFR Stage 2: Mild kidney damage GFR 60-89 Stage 3: Moderate kidney damage GFR 30-59 Stage 4: Severe kidney damage GFR 15-29 Stage 5: Severe kidney damage GFR <15 ESRD - chronic treatment by dialysis or transplant Performed By: #### D AU #### [facility] [address] [place] [address] Credit And Collection Manager: Garrett Perez MD Urea nitrogen [Mass/Vol] 6 mg/dL Normal 6-20 [facility] Comment on above: Performed By: #### D AU #### [facility] [address] [place] [address] Credit And Collection Manager: Garrett Perez MD Comprehensive Metabolic Pane lOrdered By: Kalyan Irizarry on 07-06-2021 Albumin [Mass/Vol] 4.2 g/dL 3.5 - 5.2 g/dL [facility] Phone: Albumin/Globulin [Mass ratio] 1.4 {ratio} [facility] Phone: ALP (Bld) [Catalytic activity/Vol] 74 U/L 35 - 104 U/L [facility] Phone: ALT [Catalytic activity/Vol] 31 U/L 5 - 33 U/L [facility] Phone: Anion gap [Moles/Vol] 13 mmol/L 9 - 17 mmol/L [facility] Phone: AST [Catalytic activity/Vol] 19 U/L <32 [facility] Phone: Bilirubin [Mass/Vol] 0.17 mg/dL Low 0.3 - 1 .2 mg/dL [facility] Phone: Calcium [Mass/Vol] 9.2 mg/dL 8.6 - 10. 4 mg/dL [facility] Phone: Chloride [Moles/Vol] 104 mmol/L 98 - 10 7 mmol/L [facility] Phone: CO2 [Moles/Vol] 20 mmol/L 20 - 31 mmol/L [facility] Phone: Creatinine [Mass/Vol] 0.82 mg/dL 0.50 - 0.90 mg/dL [facility] Phone: Free PSA/Total PSA [Mass fraction] 7.2 g/dL 6.4 - 8.3 g/dL [facility] Phone: GFR >60 >60 mL/min [employer] Phone: GFR Non- >60 >60 mL/min [facility] Phone: Glucose [Mass/Vol] 100 mg/dL High 70 - 99 mg/dL [facility] Phone: Potassium [Moles/Vol] 4.0 mmol/L 3.7 - 5.3 mmol/L [facility] Phone: Sodium [Moles/Vol] 137 mmol/L 135 - 144 mmol/L [facility] Phone: Urea nitrogen (BldV) [Mass/Vol] 6 mg/dL 6 - 20 mg/dL [facility] Phone: Urea nitrogen/Creatinine (Bld) [Mass ratio] 7 Low [facility] Phone: Drug Scr, Abuse, Uron 2020 Amphetamine(s),Ur Negative Normal NEG [facility] Comment on above: Performed By: #### D AU #### [facility] [address] [place] [address] Credit And Collection Manager: Garrett Perez MD Barbiturate(s),Ur Negative Normal NEG [facility] Comment on above: Performed By: #### D AU #### [facility] [address] [place], [place] 085[address]83 Credit And Collection Manager: Garrett Perez MD Benzodiazepine(s) Negative Normal NEG [facility] Comment on above: Performed By: #### D AU #### [facility] [address] [place], [place] 4304583 Credit And Collection Manager: Garrett Perez MD Buprenorphrine, Ur Negative Normal NEG [facility] Comment on above: Performed By: #### D AU #### [facility] [address] [place], [place] [phone] Credit And Collection Manager: Garrett Perez MD Cannabinoid(s),Ur Positive Abnormal NEG [facility] Comment on above: Performed By: #### D AU #### [facility] [address] [place], [place] 5196483 Credit And Collection Manager: Garrett Perez MD Cocaine Metabolite Negative Normal [facility] Comment on above: Performed By: #### D AU #### [facility] [address] [place] [address] Credit And Collection Manager: Garrett Perez MD Methadone Ql (U) Negative Normal [facility] Comment on above: Performed By: #### D AU #### [facility] [address] [place] [address] [place]. [place], [place] 2242683 Credit And Collection Manager: Garrett Perez MD Methamphetamine, Ur Negative Normal [facility] Comment on above: Performed By: #### D AU #### [facility] [address] [place], [place] 0483683 Credit And Collection Manager: Garrett Perez MD Opiate(s), Ur Negative Normal [facility] Comment on above: Performed By: #### D AU #### [facility] [address] [place], [place] 7522783 Credit And Collection Manager: Garrett Perez MD Oxycodone, Urine Negative Normal [facility] Comment on above: Performed By: #### D AU #### [facility] [address] [place], [place] 8647283 Credit And Collection Manager: Garrett Perez MD Phencyclidine, Ur Negative Normal NEG [facility] Comment on above: Performed By: #### D AU #### [facility] [address] [place], [place] 5637583 Credit And Collection Manager: Garrett Perez MD Propoxyphene,Urine Negative Normal NEG [facility] Comment on above: Performed By: #### D AU #### [facility] [address] [place], [place] 1954183 Credit And Collection Manager: Garrett Perez MD Tricyclic antidepressants Screen Ql (U) Negative Normal NEG [facility] Comment on above: Result Comment: Drug screen results are to be used for medical purposes only. All positive results are unconfirmed. Testing for employment or legal uses should be sent to a reference laboratory for confirmation. Performed By: #### D AU #### [facility] [address] [place] [address] [place] [address] Credit And Collection Manager: Garrett Perez MD Interpretive Info NOT REPORTED Normal [facility] Comment on above: Performed By: #### D AU #### [facility] [address] [place] [address] [place] [place], [place] 1330783 Credit And Collection Manager: Garrett Perez MD MDMA, Urine NOT REPORTED Normal NEG [facility] Comment on above: Performed By: #### D AU #### [facility] [address] [place], [place] 6339383 Credit And Collection Manager: Garrett Perez MD EthanolOrdered By: Kalyan iglesias on 07-06-2021 Ethanol [Mass/Vol] mg/dL <10 mg/dL [facility] [employer] Phone: Ethanol percent <0.010 <0.010 % [facility] Phone: [facility] Phone: Ethanol Alcoholon 07-06-2021 Ethanol [Mass/Vol] mg/dL Normal <10 [facility] Comment on above: Performed By: #### C OVRB #### [facility] [address] [place] [address] Credit And Collection Manager: Garrett Perez MD Ethanol percent <0.010 Normal <0.010 [facility] Comment on above: Performed By: #### C OVRB #### [facility] [address] [place] [address] Credit And Collection Manager: Garrett Perez MD HCG Qualitative, SerumOrdere d By: Kalyan Irizarry on 07-06-2021 hCG Qual Negative NEGATIVE [facility] [employer] Phone: Comment on above: Specimens with hCG l evels near the threshold of the test (25 mIU/mL) may give a negative or indeterminate result. In such cases, another test should be performed with a new specimen in 48-72 hours. If early is suspected clinically in this setting, correlation with quantitative serum b-hCG level is suggested. [employer] has confirmed the use of plasma for this test. This has not been cleared or approved by the U.S. Food and Drug Administration. The FDA has determined that such clearance is not necessary. [facility] Phone: HCG Screen, Bloodon 07-06-20 21 HCG Screen, Blood Negative Normal NEG [facility] Comment on above: Result Comment: Spec imens with hCG levels near the threshold of the test (25 mIU/mL) may give a negative or indeterminate result. In such cases, another test should be performed with a new specimen in 48-72 hours. If early is suspected clinically in this setting, correlation with quantitative serum b-hCG level is suggested. [employer] has confirmed the use of plasma for this test. This has not been cleared or approved by the U.S. Food and Drug Administration. The FDA has determined that such clearance is not necessary. Performed By: #### D AU #### [facility] [address] [place] [address] Credit And Collection Manager: Garrett Perez MD Laboratory - Chemistry and C hemistry - challengeOrdered By: Kalyan Irizarry on 07-06-2021 GFR/1.73 sq M.predicted MDRD (S/P/Bld) [Vol rate/Area] [facility] Phone: Comment on above: Average GFR for 20-2 9 years old: 116 mL/min/1.73sq m Chronic Kidney Disease: <60 mL/min/1.73sq m Kidney failure: <15 mL/min/1.73sq m eGFR calculated using average adult body mass. Additional eGFR calculator available at: http://www.W-21/multiple_crcl_2012.htm Stage 1: Some kidney damage normal GFR Stage 2: Mild kidney damage GFR 60-89 Stage 3: Moderate kidney damage GFR 30-59 Stage 4: Severe kidney damage GFR 15-29 Stage 5: Severe kidney damage GFR <15 ESRD - chronic treatment by dialysis or transplant No Panel InformationOrdered By: Kalyan Irizarry on 07-06-2021 Interpretation and review of laboratory results Abnormal [facility] Phone: [employer] Phone: [id number] 07-06-2021 SARS-CoV-2 (COVID-19) RNA MORENA+probe Ql (Unsp spec) Not detected Normal [facility] Comment on above: Result Comment: [...] management decisions. Fact sheet for Healthcare Providers: https://www.fda.gov/media/711751/download Fact sheet for Patients: https://www.fda.gov/media/969375/download Methodology: Isothermal Nucleic Acid Amplification Performed By: #### C OVRB #### [facility] [address] [place], [place] 3453083 Credit And Collection Manager: Garrett Perez MD Salicylateon 07-06-2021 Salicylate <1 Low 3-10 [facility] Comment on above: Performed By: #### D AU #### [facility] [address] [place] [address] Credit And Collection Manager: Garrett Perez MD SalicylateOrdered By: Gil Irizarry on 07-06-2021 Salicylate Lvl <1 Low 3 - 10 mg/dL [facility] Work Phone: Urinalysis w/ Microon 2020 ----- Normal [facility] Comment on above: Performed By: #### C OVRB #### [facility] [address] [place], [place] 5099083 Credit And Collection Manager: Garrett Perez MD Bacteria 1+ Abnormal NONE [facility] Comment on above: Performed By: #### C OVRB #### [facility] [address] [place], [place] 098[address]83 Credit And Collection Manager: Garrett Perez MD Bilirubin, SemiQt,Ur Negative Normal NEG [facility] Comment on above: Performed By: #### C OVRB #### [facility] [address] [place] [address] Credit And Collection Manager: Garrett Perez MD Blood, Urine Negative Normal NEG [facility] Comment on above: Performed By: #### C OVRB #### [facility] [address] [place] [address] Credit And Collection Manager: Garrett Perez MD Clarity (U) CLEAR Normal CLEAR [facility] Comment on above: Performed By: #### C OVRB #### [facility] [address] [place], [place] 0954883 Credit And Collection Manager: Garrett Perez MD Color (U) YELLOW Normal YEL [facility] Comment on above: Performed By: #### C OVRB #### [facility] [address] [place], [place] 2836083 Credit And Collection Manager: Garrett Perez MD Epithelial cells LM Ql (Urine sed) 5 TO 10 Normal 0-25 [facility] Comment on above: Performed By: #### C OVRB #### [facility] [address] [place], [place] 2857183 Credit And Collection Manager: Garrett Perez MD Glucose Ql (U) Negative Normal NEG [facility] Comment on above: Performed By: #### C OVRB #### [facility] [address] [place], [place] 6631383 Credit And Collection Manager: Garrett Perez MD Ketones Ql (U) Negative Normal NEG [facility] Comment on above: Performed By: #### C OVRB #### [address] [place], [place] 6341383 Credit And Collection Manager: Garrett Perez MD Leukocyte esterase Test strip Ql (U) Negative Normal NEG [facility] Comment on above: Performed By: #### C OVRB #### [facility] [address] [place], [place] 1766783 Credit And Collection Manager: Garrett Perez MD Mucus Strands 1+ Abnormal NONE [facility] Comment on above: Performed By: #### C OVRB #### [facility] [address] [place] [address] Credit And Collection Manager: Garrett Perez MD Nitrite,Ur Negative Normal NEG [facility] Comment on above: Performed By: #### C OVRB #### [facility] [address] [place] [address] Credit And Collection Manager: Garrett Perez MD PH,Ur 6.5 Normal 5.0-9.0 [facility] Comment on above: Performed By: #### C OVRB #### [facility] [address] [place] [address] Credit And Collection Manager: Garrett Perez MD Protein Ql (U) Negative Normal NEG [facility] Comment on above: Performed By: #### C OVRB #### [facility] [address] [place] [address] Credit And Collection Manager: Garrett Perez MD Spec. [place],Ur 1.020 Normal 1.010-1.020 [facility] Comment on above: Performed By: #### C OVRB #### [facility] [address] [place] [address] Credit And Collection Manager: Garrett Perez MD Urine RBC's 0 TO 2 Normal 0-2 [facility] Comment on above: Performed By: #### C OVRB #### [facility] [address] [place], [place] 2591683 Credit And Collection Manager: Garrett Perez MD Urine WBC's 0 TO 2 Normal 0-5 [facility] Comment on above: Performed By: #### C OVRB #### [facility] [address] [place], [facility] Credit And Collection Manager: Garrett Perez MD Urobilinogen,Ur Normal Normal NORM [facility] Comment on above: Performed By: #### C OVRB #### [facility] [address] [place], [place] 6852083 Credit And Collection Manager: Garrett Perez MD Amorphous sediment LM Ql (Urine sed) NOT REPORTED Normal NONE [facility] Comment on above: Performed By: #### C OVRB #### [facility] [address] [place] [address]396783 Credit And Collection Manager: Garrett Perez MD Casts NOT REPORTED Normal [facility] Comment on above: Performed By: #### C OVRB #### [facility] [address] [place] [address] Credit And Collection Manager: Garrett Perez MD Comment NOT REPORTED Normal [facility] Comment on above: Performed By: #### C OVRB #### [facility] [address] [place] [address] Credit And Collection Manager: Garrett Perez MD Crystals LM Nom (Urine sed) NOT REPORTED Normal [facility] Comment on above: Performed By: #### C OVRB #### [facility] [address] [place] [address] [place] [place], [place] 5687283 Credit And Collection Manager: Garrett Perez MD Epithelial, Renal NOT REPORTED Normal 0 [facility] Comment on above: Performed By: #### C OVRB #### [facility] [address] [place], [place] 014[address]83 Credit And Collection Manager: Garrett Perez MD Other Observations NOT REPORTED [facility] Comment on above: Performed By: #### C OVRB #### [facility] [address] [place] [address] [place] [place], [place] 35[address]83 Credit And Collection Manager: Garrett Perez MD Trichomonas NOT REPORTED [facility] [facility] Comment on above: Performed By: #### C OVRB #### [facility] [address] [place], [place] [id number] Credit And Collection Manager: Garrett Perez MD Yeast NOT REPORTED Normal [facility] Comment on above: Performed By: #### C OVRB #### [facility] [address] [place] [address] Credit And Collection Manager: Garrett Perez MD Urinalysis with microscopicO rdered By: Kalyan Irizarry on 07-06-2021 - [facility] Work Phone: Amorphous, UA NOT REPORTED None [facility] Work Phone: Bacteria, UA 1+ Abnormal None [employer] Work Phone: Bilirubin Urine Negative NEGATIVE [employer] Work Phone: Casts UA NOT REPORTED /LPF [employer] Work Phone: Color, UA YELLOW YELLOW [employer] Work Phone: Crystals, UA NOT REPORTED None /HPF [facility] Epithelial Cells UA 5 TO 10 [employer] Work Phone: Glucose, Ur Negative NEGATIVE [employer] Work Phone: Interpretation and review of laboratory results Abnormal [employer] Work Phone: Ketones Ql (U) Negative NEGATIVE [employer] Work Phone: Leukocyte esterase Test strip Ql (U) Negative NEGATIVE [employer] Work Phone: Mucus, UA 1+ Abnormal None [employer] Work Phone: Nitrite, Urine Negative NEGATIVE [employer] Work Phone: Other Observations UA NOT REPORTED NOT REQ. M [facility] Work Phone: pH, UA 6.5 [facility]: Protein, UA Negative NEGATIVE [employer] Work Phone: RBC, UA 0 TO 2 [employer] Work Phone: Renal Epithelial, UA NOT REPORTED 0 /HPF [facility] [employer] Work Phone: Specific [place], UA 1.020 [facility] [employer] Work Phone: Trichomonas, UA NOT REPORTED None [employer] Work Phone: Turbidity UA CLEAR CLEAR [employer] Work Phone: Urinalysis Comments NOT REPORTED [facility] Work Phone: Urine Hgb Negative NEGATIVE [facility] Work Phone: Urobilinogen, Urine Normal Normal [facility] Work Phone: WBC, UA 0 TO 2 [facility] Work Phone: Yeast, UA NOT REPORTED None [facility] Work Phone: [facility] Work Phone: Urine Drug ScreenOrdered By: Kalyan Irizarry on 07-06-2021 Amphetamine Screen, Ur Negative NEGATIVE [facility] Work Phone: Barbiturate Screen, Ur Negative NEGATIVE [facility] Work Phone: Benzodiazepine Screen, Urine Negative NEGATIVE [facility] Work Phone: Buprenorphine Urine Negative NEGATIVE [facility] Work Phone: Cannabinoid Scrn, Ur Positive Abnormal NEGATIVE [facility] Work Phone: Cocaine Metabolite, Urine Negative NEGATIVE [facility] Work Phone: Interpretation and review of laboratory results Abnormal [facility] Work Phone: MDMA, Urine NOT REPORTED NEGATIVE [facility] Work Phone: Methadone Screen, Urine Negative NEGATIVE [facility] Work Phone: Methamphetamine, Urine Negative NEGATIVE [facility] Work Phone: Opiates, Urine Negative NEGATIVE [facility] Work Phone: Oxycodone Screen, Ur Negative NEGATIVE [facility] Work Phone: Phencyclidine, Urine Negative NEGATIVE [facility] Work Phone: Propoxyphene, Urine Negative NEGATIVE [facility] Work Phone: Test Information NOT REPORTED [facility] Work Phone: Tricyclic Antidepressants, Urine Negative NEGATIVE [facility] Work Phone: Comment on above: Drug screen results are to be used for medical purposes only. All positive results are unconfirmed. Testing for employment or legal uses should be sent to a reference laboratory for confirmation. [employer] Phone: Acetaminophenon 05-15-2021 Acetaminophen [Mass/Vol] ug/mL Low 10-30 [facility] Comment on above: Performed By: #### D AU #### [facility] [address] [place] [address] Credit And Collection Manager: Garrett Perez MD Acetaminophen levelOrdered B y: Blanco Andradein on 05-15-2021 Acetaminophen Level <5 Low 10 - 30 ug/mL [employer] Phone: Interpretation and review of laboratory results Abnormal [employer] Phone: [employer] Phone: CBC auto differentialOrdered By: Blanco Montalvo on 05-15-2021 Absolute Eos # 0.18 [employer] Phone: Absolute Immature Granulocyte 0.06 [employer] Phone: Absolute Lymph # 2.41 [employer] Phone: Absolute [place] # 0.83 [employer] Phone: Basophils (Bld) [#/Vol] 0.07 10*3/uL [employer] Phone: Basophils/100 WBC (Bld) 1 % 0 - 2 % [facility] [employer] Phone: Differential Type NOT REPORTED [employer] Phone: Eosinophils/100 WBC (Bld) 1 % 1 - 4 % [employer] Phone: Hematocrit (Bld) [Volume fraction] 45.1 % 36.3 - 47.1 % [employer] Phone: Hemoglobin.gastrointest inal spec 1 Ql (Stl) 15.0 g/dL 11.9 - 15.1 g/dL [employer] Phone: Immature granulocytes/100 WBC (Bld) 1 % High 0 [employer] Phone: Interpretation and review of laboratory results Abnormal [employer] Phone: Lymphocytes/100 WBC (Bld) 18 % Low 24 - 43 % [employer] Phone: MCH (RBC) [Entitic mass] 28.4 pg 25.2 - 33.5 pg [employer] Phone: MCHC (RBC) [Mass/Vol] 33.3 g/dL 28.4 - 34.8 g/dL [employer] Phone: MCV (RBC) [Entitic vol] 85.4 fL 82.6 - 102.9 fL [employer] Phone: Monocytes/100 WBC (Bld) 6 % 3 - 12 % [facility] [employer] Phone: NRBC Automated 0.0 0.0 per 100 WBC [employer] Phone: Platelet distribution width (Bld) [Ratio] 13.0 % 11.8 - 14.4 % [employer] Phone: Platelet Estimate NOT REPORTED [employer] Phone: Platelet mean volume (Bld) [Entitic vol] 8.3 fL 8.1 - 13.5 fL [employer] Phone: Platelets (Bld) [#/Vol] 301 10*3/uL [employer] Phone: RBC (Bld) [#/Vol] 5.28 10*6/uL High 3.95 - 5.1 1 m/uL [employer] Phone: RBC (Bld) [#/Vol] NOT REPORTED [employer] Phone: Segmented neutrophils/100 WBC (Bld) 73 % High 36 - 65 % [employer] Phone: Segs Absolute 9.71 High [facility] Work Phone: WBC (Bld) [#/Vol] 13.3 10*3/uL High [facility] Work Phone: WBC (Bld) [#/Vol] NOT REPORTED [facility] [employer] Phone: [facility] [employer] Phone: CBC with Diffon 05-15-2021 Abs. Basophil 0.07 k/uL Normal 0.00-0.20 [facility] Comment on above: Performed By: #### C DP, SALI, CP, HCG #### [address] [place] [id number] Credit And Collection Manager: Garrett Perez MD Abs.Imm.Granulocyte 0.06 k/uL Normal 0.00-0.30 [facility] Comment on above: Performed By: #### C DP, SALI, CP, HCG #### [facility] [address] [place], [place] [address] Credit And Collection Manager: Garrett Perez MD Abs.Neutrophil (Seg) 9.71 k/uL High 1.50-8.10 [facility] Comment on above: Performed By: #### C DP, SALI, CP, HCG #### [address] [place], [facility] Credit And Collection Manager: Garrtet Perez MD Basophils/100 WBC (Bld) 1 % Normal 0-2 [facility] Comment on above: Performed By: #### C DP, SALI, CP, HCG #### [facility] [address] [place], [place] [address] Credit And Collection Manager: Garrett Perez MD Eosinophils (Bld) [#/Vol] 0.18 10*3/uL Normal 0.00-0.44 [facility] Comment on above: Performed By: #### C DP, SALI, CP, HCG #### [facility] [address] [place] [address] Dr. [place] [id number] Credit And Collection Manager: Garrett Perez MD Eosinophils/100 WBC (Bld) 1 % Normal 1-4 [facility] Comment on above: Performed By: #### C DP, SALI, CP, HCG #### [address] [place] [id number] Credit And Collection Manager: Garrett Perez MD Erythrocyte distribution width (RBC) [Ratio] 13.0 % Normal 11.8-14.4 [facility] Comment on above: Performed By: #### C DP, SALI, CP, HCG #### [address] [place] [address] Credit And Collection Manager: Garrett Perez MD Hematocrit (Bld) [Volume fraction] 45.1 % Normal 36.3-47.1 [facility] Comment on above: Performed By: #### C DP, SALI, CP, HCG #### [address] [place] [address] Credit And Collection Manager: Garrett Perez MD Hemoglobin (Bld) [Mass/Vol] 15.0 g/dL Normal 11.9-15.1 [facility] Comment on above: Performed By: #### C DP, SALI, CP, HCG #### [address] [place] [id number] Credit And Collection Manager: Garrett Perez MD Immature granulocytes/100 WBC (Bld) 1 % High 0 [facility] Comment on above: Performed By: #### C DP, SALI, CP, HCG #### [address] [place] [id number] Credit And Collection Manager: Garrett Perez MD Lymphocytes (Bld) [#/Vol] 2.41 10*3/uL Normal 1.10-3.70 [facility] Comment on above: Performed By: #### C DP, SALI, CP, HCG #### [address] [place] [address] Credit And Collection Manager: Garrett Perez MD Lymphocytes/100 WBC (Bld) 18 % Low 24-43 [facility] Comment on above: Performed By: #### C DP, SALI, CP, HCG #### [facility] [address] [place] [id number] Credit And Collection Manager: Garrett Perez MD MCH (RBC) [Entitic mass] 28.4 pg Normal 25.2-33.5 [facility] Comment on above: Performed By: #### C DP, SALI, CP, HCG #### [address] [place] [address] Credit And Collection Manager: Garrett Perez MD MCHC (RBC) [Mass/Vol] 33.3 g/dL Normal 28.4-34.8 [facility] Comment on above: Performed By: #### C DP, SALI, CP, HCG #### [address] [place] [address] Credit And Collection Manager: Garrett Perez MD MCV (RBC) [Entitic vol] 85.4 fL Normal 82.6-102.9 [facility] Comment on above: Performed By: #### C DP, SALI, CP, HCG #### [address] [place] [address] Credit And Collection Manager: Garrett Perez MD Monocytes (Bld) [#/Vol] 0.83 10*3/uL Normal 0.10-1.20 [facility] Comment on above: Performed By: #### C DP, SALI, CP, HCG #### [address] [place] [address] Credit And Collection Manager: Garrett Perez MD Monocytes/100 WBC (Bld) 6 % Normal 3-12 [facility] Comment on above: Performed By: #### C DP, SALI, CP, HCG #### [address] [place] [address] Credit And Collection Manager: Garrett Perez MD Neutrophil (Seg) 73 % High 36-65 [facility] Comment on above: Performed By: #### C DP, SALI, CP, HCG #### [facility] [address] [place], [place] [id number] Credit And Collection Manager: Garrett Perez MD NRBC Automated 0.0 per [address] [facility] Comment on above: Performed By: #### C DP, SALI, CP, HCG #### [facility] [address] [place] [address] Credit And Collection Manager: Garrett Perez MD Platelet mean volume (Bld) [Entitic vol] 8.3 fL Normal 8.1-13.5 [facility] Comment on above: Performed By: #### C DPMICHAEL, CP, HCG #### [facility] [address] [place] [address] Credit And Collection Manager: Garrett Perez MD Platelets (Bld) [#/Vol] 301 10*3/uL Normal 138-453 [facility] Comment on above: Performed By: #### C DPMICHAEL, CP, HCG #### [address] [place], [place] [id number] Credit And Collection Manager: Garrett Perez MD RBC (Bld) [#/Vol] 5.28 10*6/uL High 3.95-5.11 [facility] Comment on above: Performed By: #### C DP, SALI, CP, HCG #### [facility] [address] [place], [place] [id number] ([address] Credit And Collection Manager: Garrett Perez MD WBC (Bld) [#/Vol] 13.3 10*3/uL High 3.5-11.3 [facility] Comment on above: Performed By: #### C DP, SALI, CP, HCG #### [address] [place] [address] Credit And Collection Manager: Garrett Perez MD Auto Diff Performed NOT REPORTED Normal [facility] Comment on above: Performed By: #### C DP, SALI, CP, HCG #### [facility] [address] [place] [address] [place] [address] Credit And Collection Manager: Garrett Perez MD Platelet Estimate NOT REPORTED Normal [facility] Comment on above: Performed By: #### C DP, SALI, CP, HCG #### [facility] [address] [place] [address] [place] [address] Credit And Collection Manager: Garrett Perez MD RBC morphology finding Nom (Bld) NOT REPORTED Normal [facility] Comment on above: Performed By: #### C DP, SALI, CP, HCG #### [address] [place] [address] Credit And Collection Manager: Garrett Perez MD WBC Morphology NOT REPORTED Normal [facility] Comment on above: Performed By: #### C DP, SALI, CP, HCG #### [facility] [address] [place] [address] [place] [address] Credit And Collection Manager: Garrett Perez MD COVID-19, RapidOrdered By: Nicolle Montalvo on 05-15-2021 SARS-CoV-2 (COVID-19) RNA MORENA+probe Ql (Unsp spec) Not detected Not Detected [facility] Work Phone: Comment on above: Rapid [...] management decisions. Fact sheet for Healthcare Providers: https://www.fda.gov/media/157044/download Fact sheet for Patients: https://www.fda.gov/media/489415/download Methodology: Isothermal Nucleic Acid Amplification Specimen Description .NASOPHARYNGEAL SWAB [facility] Work Phone: [facility] Work Phone: Comp Metabolic Profon 2020 (cont.) Normal [facility] Comment on above: Result Comment: Aver age GFR for 20-29 years old: 116 mL/min/1.73sq m Chronic Kidney Disease: <60 mL/min/1.73sq m Kidney failure: <15 mL/min/1.73sq m eGFR calculated using average adult body mass. Additional eGFR calculator available at: http://www.W-21/multiple_crcl_2011.htm Performed By: #### C DP, SALI, CP, HCG #### [facility] [address] [place] [address] Credit And Collection Manager: Garrett Perez MD Albumin [Mass/Vol] 4.4 g/dL Normal 3.5-5.2 [facility] Comment on above: Performed By: #### C DP, SALI, CP, HCG #### [facility] [address] [place] [address] Credit And Collection Manager: Garrett Perez MD Albumin/Glob Ratio 1.3 Normal 1.0-2.5 [facility] Comment on above: Performed By: #### C DP, SALI, CP, HCG #### [facility] [address] [place] [address] Credit And Collection Manager: Garrett Perez MD Alkaline Phos 82 U/L Normal 35-104 [facility] Comment on above: Performed By: #### C DP, SALI, CP, HCG #### [facility] [address] [place] [address] Credit And Collection Manager: Garrett Perez MD ALT [Catalytic activity/Vol] 40 U/L High 5-33 [facility] Comment on above: Performed By: #### C DP, SALI, CP, HCG #### [facility] [address] [place], [place] 6[address]83 Credit And Collection Manager: Garrett Perez MD Anion gap [Moles/Vol] 13 mmol/L Normal 9-17 [facility] Comment on above: Performed By: #### C DP, SALI, CP, HCG #### [facility] [address] [place] [address] [place]. [place], [place] [phone] Credit And Collection Manager: Garrett Perez MD AST [Catalytic activity/Vol] 26 U/L Normal <32 [facility] Comment on above: Performed By: #### C DP, SALI, CP, HCG #### [facility] [address] [place] [address] [place]. [place], [place] [phone] Credit And Collection Manager: Garrett Perez MD Bilirubin [Mass/Vol] 0.39 mg/dL Normal 0.3-1.2 [facility] Comment on above: Performed By: #### C DP, SALI, CP, HCG #### [facility] [address] [place] [address] [place]. [place], [place] [phone] Credit And Collection Manager: Garrett Perez MD BUN/CRE Ratio 12 Normal 9-20 [facility] Comment on above: Performed By: #### C DP, SALI, CP, HCG #### [facility] [address] [place], [place] [phone] Credit And Collection Manager: Garrett Perez MD Calcium [Mass/Vol] 9.9 mg/dL Normal 8.6-10.4 [facility] Comment on above: Performed By: #### C DP, SALI, CP, HCG #### [facility] [address] [place] [address] [place]. [place], [place] 6597783 Credit And Collection Manager: Garrett Perez MD Chloride [Moles/Vol] 99 mmol/L Normal 98-107 [facility] Comment on above: Performed By: #### C DP, SALI, CP, HCG #### [facility] [address] [place] [address] Credit And Collection Manager: Garrett Perez MD CO2 [Moles/Vol] 25 mmol/L Normal 20-31 [facility] Comment on above: Performed By: #### C DP, SALI, CP, HCG #### [facility] [address] [place], [facility] Credit And Collection Manager: Garrett Perez MD Creatinine [Mass/Vol] 0.81 mg/dL Normal 0.50-0.90 [facility] Comment on above: Performed By: #### C DP, SALI, CP, HCG #### [address] [place], [facility] Credit And Collection Manager: Garrett Perez MD GFR, Amer >60 Normal >60 [facility] Comment on above: Performed By: #### C DP, SALI, CP, HCG #### [address] [place], [facility] Credit And Collection Manager: Garrett Perez MD GFR,non Amer >60 Normal >60 [facility] Comment on above: Performed By: #### C DP, SALI, CP, HCG #### [address] [place], [facility] Credit And Collection Manager: Garrett Perez MD Glucose [Mass/Vol] 86 mg/dL Normal 70-99 [facility] Comment on above: Performed By: #### C DP, SALI, CP, HCG #### [address] [place], [facility] Credit And Collection Manager: Garrett Perez MD Potassium [Moles/Vol] 3.7 mmol/L Normal 3.7-5.3 [facility] Comment on above: Performed By: #### C DP, SALI, CP, HCG #### [facility] [address] [place] [address] Credit And Collection Manager: Garrett Perez MD Protein [Mass/Vol] 7.8 g/dL Normal 6.4-8.3 [facility] Comment on above: Performed By: #### C DP, SALI, CP, HCG #### [facility] [address] [place] [address] Credit And Collection Manager: Garrett Perez MD Sodium [Moles/Vol] 137 mmol/L Normal 135-144 [facility] Comment on above: Performed By: #### C DP, SALI, CP, HCG #### [address] [place] [address] Credit And Collection Manager: Garrett Perez MD Staging: Normal [facility] Comment on above: Result Comment: Stag e 1: Some kidney damage normal GFR Stage 2: Mild kidney damage GFR 60-89 Stage 3: Moderate kidney damage GFR 30-59 Stage 4: Severe kidney damage GFR 15-29 Stage 5: Severe kidney damage GFR <15 ESRD - chronic treatment by dialysis or transplant Performed By: #### C DP, SALI, CP, HCG #### [address] [place] [address] Credit And Collection Manager: Garrett Perez MD Urea nitrogen [Mass/Vol] 10 mg/dL Normal 6-20 [facility] Comment on above: Performed By: #### C DP, SALI, CP, HCG #### [address] [place] [address] Credit And Collection Manager: Garrett Perez MD Comprehensive Metabolic Pane lOrdered By: Blanco Montalvo on 05-15-2021 Albumin [Mass/Vol] 4.4 g/dL 3.5 - 5.2 g/dL [facility] Work Phone: Albumin/Globulin [Mass ratio] 1.3 {ratio} [facility] Work Phone: ALP (Bld) [Catalytic activity/Vol] 82 U/L 35 - 104 U/L [facility] Phone: ALT [Catalytic activity/Vol] 40 U/L High 5 - 33 U/L [facility] Phone: Anion gap [Moles/Vol] 13 mmol/L 9 - 17 mmol/L [facility] Phone: AST [Catalytic activity/Vol] 26 U/L <32 [facility] Phone: Bilirubin [Mass/Vol] 0.39 mg/dL 0.3 - 1 .2 mg/dL [employer] Phone: Calcium [Mass/Vol] 9.9 mg/dL 8.6 - 10. 4 mg/dL [facility] Phone: Chloride [Moles/Vol] 99 mmol/L 98 - 10 7 mmol/L [employer] Phone: CO2 [Moles/Vol] 25 mmol/L 20 - 31 mmol/L [facility] Phone: Creatinine [Mass/Vol] 0.81 mg/dL 0.50 - 0.90 mg/dL [facility] Phone: Free PSA/Total PSA [Mass fraction] 7.8 g/dL 6.4 - 8.3 g/dL [facility] Phone: GFR >60 >60 mL/min [employer] Phone: GFR Non- >60 >60 mL/min [facility] Phone: Glucose [Mass/Vol] 86 mg/dL 70 - 99 mg/dL [facility] Phone: Potassium [Moles/Vol] 3.7 mmol/L 3.7 - 5.3 mmol/L [facility] Phone: Sodium [Moles/Vol] 137 mmol/L 135 - 144 mmol/L [facility] Phone: Urea nitrogen (BldV) [Mass/Vol] 10 mg/dL 6 - 20 mg/dL [facility] Work Phone: Urea nitrogen/Creatinine (Bld) [Mass ratio] 12 [facility] Work Phone: Drug Scr, Abuse, Uron 2020 Amphetamine(s),Ur Negative Normal [facility] Comment on above: Performed By: #### C OVRB #### [facility] [address] [place], [place] [id number] Credit And Collection Manager: Garrett Perez MD Barbiturate(s),Ur Negative Normal NEG [facility] Comment on above: Performed By: #### C OVRB #### [facility] [address] [place], [place] [id number] Credit And Collection Manager: Garrett Perez MD Benzodiazepine(s) Negative Normal [facility] Comment on above: Performed By: #### C OVRB #### [facility] [address] [place] [address] Credit And Collection Manager: aGrrett Perez MD Buprenorphrine, Ur Negative Normal [facility] Comment on above: Performed By: #### C OVRB #### [facility] [address] [place] [address] [place] [address] Credit And Collection Manager: Garrett Perez MD Cannabinoid(s),Ur Positive Abnormal NEG [facility] Comment on above: Performed By: #### C OVRB #### [facility] [address] [place] [address] Credit And Collection Manager: Garrett Perez MD Cocaine Metabolite Negative Normal [facility] Comment on above: Performed By: #### C OVRB #### [facility] [address] [place], [place] [phone] Credit And Collection Manager: Garrett Perez MD Methadone Ql (U) Negative Normal [facility] Comment on above: Performed By: #### C OVRB #### [facility] [address] [place], [place] [phone] Credit And Collection Manager: Garrett Perez MD Methamphetamine, Ur Negative Normal NEG [facility] Comment on above: Performed By: #### C OVRB #### [facility] [address] [place], [place] [id number] Credit And Collection Manager: Garrett Perez MD Opiate(s), Ur Negative Normal NEG [facility] Comment on above: Performed By: #### C OVRB #### [facility] [address] [place], [place] [phone] Credit And Collection Manager: Garrett Perez MD Oxycodone, Urine Negative Normal [facility] Comment on above: Performed By: #### C OVRB #### [facility] [address] [place], [place] [phone] Credit And Collection Manager: Garrett Perez MD Phencyclidine, Ur Negative Normal NEG [facility] Comment on above: Performed By: #### C OVRB #### [facility] [address] [place] [address] [place], [place] 1429383 Credit And Collection Manager: Garrett Perez MD Propoxyphene,Urine Negative Normal [facility] Comment on above: Performed By: #### C OVRB #### [facility] [address] [place], [place] [id number] Credit And Collection Manager: Garrett Perez MD Tricyclic antidepressants Screen Ql (U) Negative [facility] Comment on above: Result Comment: Drug screen results are to be used for medical purposes only. All positive results are unconfirmed. Testing for employment or legal uses should be sent to a reference laboratory for confirmation. Performed By: #### C OVRB #### [facility] [address] [place], [place] [id number] Credit And Collection Manager: Garrett Perez MD Interpretive Info NOT REPORTED Normal [facility] Comment on above: Performed By: #### C OVRB #### [facility] [address] [place] [address] Credit And Collection Manager: Garrett Perez MD MDMA, Urine NOT REPORTED Normal NEG [facility] Comment on above: Performed By: #### C OVRB #### [facility] [address] [place] [address] [place] [address] Credit And Collection Manager: Garrett Perez MD EthanolOrdered By: Blanco banks on 05-15-2021 Ethanol [Mass/Vol] mg/dL <10 mg/dL [facility] Phone: Ethanol percent <0.010 <0.010 % [facility] Phone: Friendsee Phone: Ethanol Alcoholon 05-15-2021 Ethanol [Mass/Vol] mg/dL Normal <10 [facility] Comment on above: Performed By: #### D AU #### [facility] [address] [place] [address] [place] [address] Credit And Collection Manager: Garrett Perez MD Ethanol percent <0.010 Normal <0.010 [facility] Comment on above: Performed By: #### D AU #### [address] [place] [address] Credit And Collection Manager: Garrett Perez MD HCG Qualitative, SerumOrdere d By: Blanco Montalvo on 05-15-2021 hCG Qual Negative NEGATIVE [facility] Comment on above: Specimens with hCG l evels near the threshold of the test (25 mIU/mL) may give a negative or indeterminate result. In such cases, another test should be performed with a new specimen in 48-72 hours. If early is suspected clinically in this setting, correlation with quantitative serum b-hCG level is suggested. [employer] has confirmed the use of plasma for this test. This has not been cleared or approved by the U.S. Food and Drug Administration. The FDA has determined that such clearance is not necessary. [employer] Phone: HCG Screen, Bloodon 05-15-20 HCG Screen, Blood Negative Normal NEG [facility] Comment on above: Result Comment: Spec imens with hCG levels near the threshold of the test (25 mIU/mL) may give a negative or indeterminate result. In such cases, another test should be performed with a new specimen in 48-72 hours. If early is suspected clinically in this setting, correlation with quantitative serum b-hCG level is suggested. [employer] has confirmed the use of plasma for this test. This has not been cleared or approved by the U.S. Food and Drug Administration. The FDA has determined that such clearance is not necessary. Performed By: #### C DP, SALI, CP, HCG #### [facility] [address] [place] [address] Credit And Collection Manager: Garrett Perez MD Laboratory - Chemistry and C hemistry - challengeOrdered By: Blanco Montalvo on 05-15-2021 GFR/1.73 sq M.predicted MDRD (S/P/Bld) [Vol rate/Area] [employer] Phone: Comment on above: Average GFR for 20-2 9 years old: 116 mL/min/1.73sq m Chronic Kidney Disease: <60 mL/min/1.73sq m Kidney failure: <15 mL/min/1.73sq m eGFR calculated using average adult body mass. Additional eGFR calculator available at: http://www.BallLogic.Brandlive/multiple_crcl_2012.htm Stage 1: Some kidney damage normal GFR Stage 2: Mild kidney damage GFR 60-89 Stage 3: Moderate kidney damage GFR 30-59 Stage 4: Severe kidney damage GFR 15-29 Stage 5: Severe kidney damage GFR <15 ESRD - chronic treatment by dialysis or transplant Microscopic UrinalysisOrdere d By: Blanco Montalvo on 05-15-2021 - [employer] Phone: Amorphous, UA NOT REPORTED None [employer] Phone: Bacteria, UA TRACE Abnormal None [employer] Phone: Casts UA NOT REPORTED /LPF [facility] Phone: Crystals, UA NOT REPORTED None /HPF [facility] Work Phone: Epithelial Cells UA 2 TO 5 [facility] Work Phone: Interpretation and review of laboratory results Abnormal [employer] Work Phone: Mucus, UA TRACE Abnormal None [employer] Work Phone: Other Observations UA NOT REPORTED NOT REQ. M [facility] [employer] Work Phone: RBC, UA 0 TO 2 [facility] Phone: Renal Epithelial, UA NOT REPORTED 0 /HPF [facility] [employer] Work Phone: Trichomonas, UA NOT REPORTED None [employer] Phone: WBC, UA 0 TO 2 [facility] Work Phone: Yeast, UA NOT REPORTED None [facility] Phone: [facility] Work Phone: No Panel InformationOrdered By: Blanco Montalvo on 05-15-2021 Interpretation and review of laboratory results Abnormal [facility] Phone: [employer] Phone: [id number] 05-15-2021 SARS-CoV-2 (COVID-19) RNA MORENA+probe Ql (Unsp spec) Not detected Normal [facility] Comment on above: Result Comment: [...] management decisions. Fact sheet for Healthcare Providers: https://www.fda.gov/media/042461/download Fact sheet for Patients: https://www.fda.gov/media/213563/download Methodology: Isothermal Nucleic Acid Amplification Performed By: #### C OVRB #### [facility] [address] [place] [address] Credit And Collection Manager: Garrett Perez MD Salicylateon 05-15-2021 Salicylate <1 Low 3-10 [facility] Comment on above: Performed By: #### C DP, MICHAEL, CP, HCG #### [address] [place] [address] Credit And Collection Manager: Garrett Perez MD SalicylateOrdered By: Blanco hwang on 05-15-2021 Salicylate Lvl <1 Low 3 - 10 mg/dL [facility] Work Phone: UA w/Reflex Cultureon 2020 Bilirubin, SemiQt,Ur Negative Normal NEG [facility] Comment on above: Performed By: #### C OVRB #### [facility] [address] [place] [address] [place] [address] Credit And Collection Manager: Garrett Perez MD Blood, Urine Negative Normal NEG [facility] Comment on above: Performed By: #### C OVRB #### [facility] [address] [place] [address] Credit And Collection Manager: Garrett Perez MD Clarity (U) CLEAR Normal CLEAR [facility] Comment on above: Performed By: #### C OVRB #### [facility] [address] [place] [address] Credit And Collection Manager: Garrett Perez MD Color (U) YELLOW Normal YEL [facility] Comment on above: Performed By: #### C OVRB #### [facility] [address] [place], [place] [id number] Credit And Collection Manager: Garrett Perez MD Glucose Ql (U) Negative Normal NEG [facility] Comment on above: Performed By: #### C OVRB #### [facility] [address] [place], [place] [id number] Credit And Collection Manager: Garrett Perez MD Ketones Ql (U) Negative Normal NEG [facility] Comment on above: Performed By: #### C OVRB #### [facility] [address] [place], [place] [id number] Credit And Collection Manager: Garrett Perez MD Leukocyte esterase Test strip Ql (U) Negative Normal [facility] Comment on above: Performed By: #### C OVRB #### [facility] [address] [place] [address] [place] [place], [place] [id number] Credit And Collection Manager: Garrett Perez MD Nitrite,Ur Negative Normal [facility] Comment on above: Performed By: #### C OVRB #### [facility] [address] [place] [address] [place] [place], [place] [address]83 Credit And Collection Manager: Garrett Perez MD PH,Ur 8.5 Normal 5.0-9.0 [facility] Comment on above: Performed By: #### C OVRB #### [facility] [address] [place] [address] [place], [place] [address] Credit And Collection Manager: Garrett Perez MD Protein Ql (U) Negative [facility] Comment on above: Performed By: #### C OVRB #### [facility] [address] [place], [place] [address]783 Credit And Collection Manager: Garrett Perez MD Spec. [place],Ur 1.015 Normal 1.010-1.020 [facility] Comment on above: Performed By: #### C OVRB #### [facility] [address] [place] [address] Credit And Collection Manager: Garrett Perez MD Urobilinogen,Ur Normal Normal NORM [facility] Comment on above: Performed By: #### C OVRB #### [facility] [address] [place] [address] Credit And Collection Manager: Garrett Perez MD Comment NOT REPORTED Normal [facility] Comment on above: Performed By: #### C OVRB #### [facility] [address] [place] [address] Credit And Collection Manager: Garrett Perez MD Urinalysis Reflex to Culture Ordered By: Blanco Montalvo on 05-15-2021 Bilirubin Urine Negative NEGATIVE [facility]: Color, UA YELLOW YELLOW [facility] Phone: Glucose, Ur Negative NEGATIVE [facility] Phone: Ketones Ql (U) Negative NEGATIVE [facility] Phone: Leukocyte esterase Test strip Ql (U) Negative NEGATIVE [facility] Phone: Nitrite, Urine Negative NEGATIVE [facility] Phone: pH, UA 8.5 [facility] [employer] Phone: Protein, UA Negative NEGATIVE [facility] Phone: Specific [place], UA 1.015 [facility] [employer] Work Phone: Turbidity UA CLEAR CLEAR [facility] Work Phone: Urinalysis Comments NOT REPORTED [employer] Work Phone: Urine Hgb Negative NEGATIVE [facility] [employer] Phone: Urobilinogen, Urine Normal Normal [facility] [employer] Phone: [facility] [employer] Work Phone: Urinalysis,Microon 1 ----- Normal [facility] Comment on above: Performed By: #### C OVRB #### [facility] [address] [place], [place] [id number] Credit And Collection Manager: Garrett Perez MD Bacteria TRACE Abnormal [facility] Comment on above: Performed By: #### C OVRB #### [facility] [address] [place], [place] [address] Credit And Collection Manager: Garrett Perez MD Epithelial cells LM Ql (Urine sed) 2 TO 5 Normal 0-25 [facility] Comment on above: Performed By: #### C OVRB #### [facility] [address] [place] [id number] Credit And Collection Manager: Garrett Perez MD Mucus Strands TRACE Abnormal [facility] Comment on above: Performed By: #### C OVRB #### [facility] [address] [place] [address] [place] [id number] Credit And Collection Manager: Garrett Perez MD Urine RBC's 0 TO 2 Normal 0-2 [facility] Comment on above: Performed By: #### C OVRB #### [address] [place] [address] Credit And Collection Manager: Garrett Perez MD Urine WBC's 0 TO 2 Normal 0-5 [facility] Comment on above: Performed By: #### C OVRB #### [facility] [address] [place] [id number] Credit And Collection Manager: Garrett Perez MD Amorphous sediment LM Ql (Urine sed) NOT REPORTED Normal [facility] Comment on above: Performed By: #### C OVRB #### [address] [place] [address] Credit And Collection Manager: Garrett Perez MD Casts NOT REPORTED Normal [facility] Comment on above: Performed By: #### C OVRB #### [facility] [address] [place] [address] [place], [place] [id number] Credit And Collection Manager: Garrett Perez MD Crystals LM Nom (Urine sed) NOT REPORTED Normal [facility] Comment on above: Performed By: #### C OVRB #### [facility] [address] [place], [place] 257[address] Credit And Collection Manager: Garrett Perez MD Epithelial, Renal NOT REPORTED Normal 0 [facility] Comment on above: Performed By: #### C OVRB #### [facility] [address] [place], [place] [address]309[address] Credit And Collection Manager: Garrett Perez MD Other Observations NOT REPORTED Normal NREQ [facility] Comment on above: Performed By: #### C OVRB #### [facility] [address] [place], [place] [address] Credit And Collection Manager: Garrett Perez MD Trichomonas NOT REPORTED Normal [facility] Comment on above: Performed By: #### C OVRB #### [facility] [address] [place], [place] [address]483 Credit And Collection Manager: Garrett Perez MD Yeast NOT REPORTED Normal [facility] Comment on above: Performed By: #### C OVRB #### [facility] [address] [place], [place] [phone] Credit And Collection Manager: Garrett Perez MD Urine Drug ScreenOrdered By: Blanco Montalvo on 05-15-2021 Amphetamine Screen, Ur Negative NEGATIVE [facility] [employer] Work Phone: Barbiturate Screen, Ur Negative NEGATIVE [facility] [employer] Work Phone: Benzodiazepine Screen, Urine Negative NEGATIVE [facility] Phone: Buprenorphine Urine Negative NEGATIVE [facility] Phone: Cannabinoid Scrn, Ur Positive Abnormal NEGATIVE [facility] [employer] [facility] Phone: Cocaine Metabolite, Urine Negative NEGATIVE [facility] Phone: Interpretation and review of laboratory results Abnormal [employer] Work Phone: MDMA, Urine NOT REPORTED NEGATIVE [facility] Work Phone: Methadone Screen, Urine Negative NEGATIVE [facility] [employer] Work Phone: Methamphetamine, Urine Negative NEGATIVE [facility] [employer] Work Phone: Opiates, Urine Negative NEGATIVE [facility] Work Phone: Oxycodone Screen, Ur Negative NEGATIVE [facility] [employer] Work Phone: Phencyclidine, Urine Negative NEGATIVE [facility] [employer] Work Phone: Propoxyphene, Urine Negative NEGATIVE [facility] Work Phone: Test Information NOT REPORTED [facility] Phone: Tricyclic Antidepressants, Urine Negative NEGATIVE [facility] [employer] Work Phone: Comment on above: Drug screen results are to be used for medical purposes only. All positive results are unconfirmed. Testing for employment or legal uses should be sent to a reference laboratory for confirmation. [employer] Phone: Laboratory - Microbiology an d Antimicrobial susceptibilityOrdered By: Denny Lomeli on 04-23-2021 SARS-CoV-2 (COVID-19) RNA MORENA+probe Ql (Resp) Not detected (Not Detected ) [facility] Work Phone: Comment on above: Note: [...] of in vitro diagnostic tests for detection [id number] virus and/or diagnosis of COVID-19 infectionunder section [...] RNA MORENA+probe Ql (Unsp spec) Performed Health [facility] Work Phone: Vitamin Don 04-14-2021 Vitamin D 14.7 ng/mL Low 30.0-100.0 [facility] Comment on above: Result Comment: (<20 ng/mL) Deficiency This assay accurately quantifies the sum of vitamin D3, 25-Hydroxy and vitamin D2, 25-Hyroxy. Performed By: #### V ITD #### [facility] [address] [place] [address] CBC With Platelet No Differe ntialon 04-11-2021 Erythrocyte distribution width (RBC) [Ratio] 13.6 % Normal 11.5-14.5 [facility] Comment on above: Performed By: #### C BCND #### [facility] [address] [place] [address] Hematocrit (Bld) [Volume fraction] 43.5 % Normal 37.0-47.0 [facility] Comment on above: Performed By: #### C BCND #### [facility] [address] [place] [address] Hemoglobin (Bld) [Mass/Vol] 14.6 g/dL Normal 12.0-16.0 [facility] Comment on above: Performed By: #### C BCND #### [facility] [address] [place] [address] MCH (RBC) [Entitic mass] 28.6 pg Normal 27.0-31.3 [facility] Comment on above: Performed By: #### C BCND #### [facility] [address] [place] [address] MCHC 33.5 % Normal 33.0-37.0 [facility] Comment on above: Performed By: #### C BCND #### [facility] [address] [place] [address] MCV (RBC) [Entitic vol] 85.4 fL Normal 82.0-100.0 M [facility] Comment on above: Performed By: #### C BCND #### [facility] [address] [place] [address] Platelets (Bld) [#/Vol] 284 10*3/uL Normal 130-400 [facility] Comment on above: Performed By: #### C BCND #### [facility] [address] [place] [address] RBC (Bld) [#/Vol] 5.10 10*6/uL Normal 4.20-5.40 [facility] Comment on above: Performed By: #### C BCND #### [facility] [address] [place] [address] WBC (Bld) [#/Vol] 11.1 10*3/uL Critically high 4.8-10.8 [facility] Comment on above: Performed By: #### C BCND #### [facility] [address] [place] [address] Folateon 04-11-2021 Folate 15.3 ng/mL Normal 7.3-26.1 [facility] Comment on above: Result Comment: As o f 16, the methodology has changed. Results from this methodology should not be compared with results from previous methodology. Performed By: #### F OLAT #### [facility] [address] [place] [address] Lipid Panelon 04-11-2021 Cholesterol [Mass/Vol] 127 mg/dL Normal 0-199 [facility] Comment on above: Result Comment: ATP III Cholesterol classification is Desirable. Performed By: #### L IPID #### [facility] [address] [place] [address] Cholesterol in HDL [Mass/Vol] 32 mg/dL Low 40-59 [facility] Comment on above: Result Comment: ATP [...] CHD Performed By: #### L IPID #### [facility] [address] [place] [address] Cholesterol in LDL [Mass/Vol] 75 mg/dL Normal 0-129 [facility] Comment on above: Result Comment: ATP III LDL Classification is Optimal. Performed By: #### L IPID #### [facility] [address] [place] [address] Triglyceride [Mass/Vol] 100 mg/dL Normal 0-150 M [facility] Comment on above: Result Comment: ATP III Triglycerides Classification is Normal. Performed By: #### L IPID #### [facility] [address] [place] [address] TSH w/out Reflexon TSH w/out Reflex 1.020 uIU/mL Normal 0.440-3.86 [facility] Comment on above: Performed By: #### T SH #### [facility] [address] [place] [address] Vitamin B12on 04-11-2021 Cobalamin (Vitamin B12) [Mass/Vol] 1050 pg/mL Normal 232-1245 [facility] Comment on above: Performed By: #### B 12 #### [facility] [address] [place] [address] EKG 12 LeadOrdered By: Freddie Hussein on 04-10-2021 Atrial Rate 75 BPM [facility] [employer] Phone: P [place] 24 degrees [employer] Phone: P-R Interval 140 ms [employer] Phone: Q-T Interval 384 ms [employer] Phone: QRS Duration 90 ms [employer] Phone: QTc Calculation (Bazett) 414 ms [employer] Phone: R [place] 29 degrees [employer] Phone: T [place] 20 degrees [employer] Phone: Ventricular Rate 70 BPM [employer] Phone: Normal sinus rhythm with sinus arrhythmia Possible Anterior infarct , age undetermined Abnormal ECG No previous ECGs available Confirmed by FORREST MENDIOLA ([id number]) on 04/10/2021 12:40:27 AM [facility] Phone: [place], Mhpn Incoming E kg Results From [facility] - 04/10/2021 12:40 AM EDT Normal sinus rhythm with sinus arrhythmia Possible Anterior infarct , age undetermined Abnormal ECG No previous ECGs available Confirmed by FORREST MENDIOLA ([id number]) on 04/10/2021 12:40:27 AM [employer] Phone: [employer] Phone: Acetaminophenon 04-09-2021 Acetaminophen [Mass/Vol] ug/mL Low 10-30 [facility] Comment on above: Performed By: #### A LCB, ACET #### [facility] [address] [place] [address] Credit And Collection Manager: Garrett Perez MD Acetaminophen LevelOrdered B y: Jm Hussein on 04-09-2021 Acetaminophen Level <5 Low 10 - 30 ug/mL [employer] Phone: Interpretation and review of laboratory results Abnormal [employer] Phone: [employer] Phone: CBC Auto DifferentialOrdered By: Jm Hussein on 04-09-2021 Absolute Eos # 0.07 [employer] Phone: Absolute Immature Granulocyte 0.03 [employer] Phone: Absolute Lymph # 2.20 [employer] Phone: Absolute [place] # 0.76 [employer] Phone: Basophils (Bld) [#/Vol] 0.05 10*3/uL [employer] Phone: Basophils/100 WBC (Bld) 0 % 0 - 2 % [facility] Phone: Differential Type NOT REPORTED [employer] Phone: Eosinophils/100 WBC (Bld) 1 % 1 - 4 % [employer] Phone: Hematocrit (Bld) [Volume fraction] 45.2 % 36.3 - 47.1 % [employer] Phone: Hemoglobin.gastrointest inal spec 1 Ql (Stl) 15.0 g/dL 11.9 - 15.1 g/dL [employer] Phone: Immature granulocytes/100 WBC (Bld) 0 % 0 [employer] Phone: Interpretation and review of laboratory results Abnormal [employer] Phone: Lymphocytes/100 WBC (Bld) 18 % Low 24 - 43 % [employer] Phone: MCH (RBC) [Entitic mass] 28.6 pg 25.2 - 33.5 pg [employer] Phone: MCHC (RBC) [Mass/Vol] 33.2 g/dL 28.4 - 34.8 g/dL [employer] Phone: MCV (RBC) [Entitic vol] 86.3 fL 82.6 - 102.9 fL [employer] Phone: Monocytes/100 WBC (Bld) 6 % 3 - 12 % M [employer] Phone: NRBC Automated 0.0 0.0 per 100 WBC [employer] Phone: Platelet distribution width (Bld) [Ratio] 13.0 % 11.8 - 14.4 % [employer] Phone: Platelet Estimate NOT REPORTED [employer] Phone: Platelet mean volume (Bld) [Entitic vol] 9.1 fL 8.1 - 13.5 fL [employer] Phone: Platelets (Bld) [#/Vol] 296 10*3/uL [employer] Phone: RBC (Bld) [#/Vol] 5.24 10*6/uL High 3.95 - 5.1 1 m/uL [employer] Phone: RBC (Bld) [#/Vol] NOT REPORTED [employer] Phone: Segmented neutrophils/100 WBC (Bld) 75 % High 36 - 65 % [employer] Phone: Segs Absolute 9.07 High [employer] Phone: WBC (Bld) [#/Vol] 12.2 10*3/uL High [employer] Phone: WBC (Bld) [#/Vol] NOT REPORTED [employer] Phone: [employer] Phone: CBC with Diffon 04-09-2021 Abs. Basophil 0.05 k/uL Normal 0.00-0.20 [facility] Comment on above: Performed By: #### C OVRB #### [facility] [address] [place] [address] Credit And Collection Manager: Garrett Perez MD Abs.Imm.Granulocyte 0.03 k/uL Normal 0.00-0.30 [facility] Comment on above: Performed By: #### C OVRB #### [facility] [address] [place], [place] [address] Credit And Collection Manager: Garrett Perez MD Abs.Neutrophil (Seg) 9.07 k/uL High 1.50-8.10 [facility] Comment on above: Performed By: #### C OVRB #### [address] [place], [place] [address] Credit And Collection Manager: Garrett Perez MD Basophils/100 WBC (Bld) 0 % Normal 0-2 M [facility] Comment on above: Performed By: #### C OVRB #### [address] [place] [address] Credit And Collection Manager: Garrett Perez MD Eosinophils (Bld) [#/Vol] 0.07 10*3/uL Normal 0.00-0.44 [facility] Comment on above: Performed By: #### C OVRB #### [address] [place], [place] [address] Credit And Collection Manager: Garrett Perez MD Eosinophils/100 WBC (Bld) 1 % Normal 1-4 [facility] Comment on above: Performed By: #### C OVRB #### [address] [place], [place] [address] Credit And Collection Manager: Garrett Perez MD Erythrocyte distribution width (RBC) [Ratio] 13.0 % Normal 11.8-14.4 [facility] Comment on above: Performed By: #### C OVRB #### [address] [place] [id number] Credit And Collection Manager: Garrett Perez MD Hematocrit (Bld) [Volume fraction] 45.2 % Normal 36.3-47.1 [facility] Comment on above: Performed By: #### C OVRB #### [address] [place] [address] Credit And Collection Manager: Garrett Perez MD Hemoglobin (Bld) [Mass/Vol] 15.0 g/dL Normal 11.9-15.1 [facility] Comment on above: Performed By: #### C OVRB #### [facility] [address] [place], [place] [phone] Credit And Collection Manager: Garrett Perez MD Immature granulocytes/100 WBC (Bld) 0 % Normal 0 [facility] Comment on above: Performed By: #### C OVRB #### [facility] [address] [place], [place] [address] Credit And Collection Manager: Garrett Perez MD Lymphocytes (Bld) [#/Vol] 2.20 10*3/uL Normal 1.10-3.70 [facility] Comment on above: Performed By: #### C OVRB #### [address] [place], [facility] Credit And Collection Manager: Garrett Perez MD Lymphocytes/100 WBC (Bld) 18 % Low 24-43 [facility] Comment on above: Performed By: #### C OVRB #### [address] [place], [place] [address]83 Credit And Collection Manager: Garrett Perez MD MCH (RBC) [Entitic mass] 28.6 pg Normal 25.2-33.5 [facility] Comment on above: Performed By: #### C OVRB #### [facility] [address] [place], [place] [address] [place] [id number] Credit And Collection Manager: Garrett Perez MD MCHC (RBC) [Mass/Vol] 33.2 g/dL Normal 28.4-34.8 [facility] Comment on above: Performed By: #### C OVRB #### [facility] [address] [place] [address] Credit And Collection Manager: Garrett Perez MD MCV (RBC) [Entitic vol] 86.3 fL Normal 82.6-102.9 [facility] Comment on above: Performed By: #### C OVRB #### [facility] [address] [place] [address] Credit And Collection Manager: Garrett Perez MD Monocytes (Bld) [#/Vol] 0.76 10*3/uL Normal 0.10-1.20 [facility] Comment on above: Performed By: #### C OVRB #### [facility] [address] [place], [place] 0440383 Credit And Collection Manager: Garrett Perez MD Monocytes/100 WBC (Bld) 6 % Normal 3-12 [facility] Comment on above: Performed By: #### C OVRB #### [address] [place], [place] [id number] Credit And Collection Manager: Garrett Perez MD Neutrophil (Seg) 75 % High 36-65 [facility] Comment on above: Performed By: #### C OVRB #### [address] [place], [place] [id number] Credit And Collection Manager: Garrett Perez MD NRBC Automated 0.0 per [address] [facility] Comment on above: Performed By: #### C OVRB #### [address] [place], [facility] Credit And Collection Manager: Garrett Perez MD Platelet mean volume (Bld) [Entitic vol] 9.1 fL Normal 8.1-13.5 [facility] Comment on above: Performed By: #### C OVRB #### [address] [place] [address] Credit And Collection Manager: Garrett Perez MD Platelets (Bld) [#/Vol] 296 10*3/uL Normal 138-453 [facility] Comment on above: Performed By: #### C OVRB #### [facility] [address] [place] [address] [address] [place], [place] 7290583 Credit And Collection Manager: Garrett Perez MD RBC (Bld) [#/Vol] 5.24 10*6/uL High 3.95-5.11 [facility] Comment on above: Performed By: #### C OVRB #### [address] [place], [place] [address]84[address]83 Credit And Collection Manager: Garrett Perez MD WBC (Bld) [#/Vol] 12.2 10*3/uL High 3.5-11.3 [facility] Comment on above: Performed By: #### C OVRB #### [address] [place], [place] [address]83 Credit And Collection Manager: Garrett Perez MD Auto Diff Performed NOT REPORTED Normal [facility] Comment on above: Performed By: #### C OVRB #### [address] [place], [facility] Credit And Collection Manager: Garrett Perez MD Platelet Estimate NOT REPORTED Normal [facility] Comment on above: Performed By: #### C OVRB #### [address] [place], [facility] Credit And Collection Manager: Garrett Perez MD RBC morphology finding Nom (d) NOT REPORTED Normal [facility] Comment on above: Performed By: #### C OVRB #### [address] [place], [facility] Credit And Collection Manager: Garrett Perez MD WBC Morphology NOT REPORTED Normal [facility] Comment on above: Performed By: #### C OVRB #### [address] [place] [address] Credit And Collection Manager: Garrett Perez MD COVID-19, RapidOrdered By: Cody Hussein on 04-09-2021 SARS-CoV-2 (COVID-19) RNA MORENA+probe Ql (Unsp spec) Not detected Not Detected [employer] Phone: Comment on above: Rapid NAAT: The [...] management decisions. Fact sheet for Healthcare Providers: https://www.fda.gov/media/451923/download Fact sheet for Patients: https://www.fda.gov/media/097562/download Methodology: Isothermal Nucleic Acid Amplification Specimen Description .[facility]NGEAL SWAB [facility] Phone: Comp Metabolic Profon 2020 (cont.) Normal [facility] Comment on above: Result Comment: Aver age GFR for 20-29 years old: 116 mL/min/1.73sq m Chronic Kidney Disease: <60 mL/min/1.73sq m Kidney failure: <15 mL/min/1.73sq m eGFR calculated using average adult body mass. Additional eGFR calculator available at: http://www.BallLogic.Brandlive/multiple_crcl_2012.htm Performed By: #### D AU #### [facility] [address] [place] [address] Credit And Collection Manager: Garrett Perez MD Albumin [Mass/Vol] 4.5 g/dL Normal 3.5-5.2 [facility] Comment on above: Performed By: #### D AU #### [facility] [address] [place] [address] Credit And Collection Manager: Garrett Perez MD Albumin/Glob Ratio 1.6 Normal 1.0-2.5 [facility] Comment on above: Performed By: #### D AU #### [facility] [address] [place], [place] 2605483 Credit And Collection Manager: Garrett Perez MD Alkaline Phos 72 U/L Normal 35-104 [facility] Comment on above: Performed By: #### D AU #### [facility] [address] [place], [place] [id number] Credit And Collection Manager: Garrett Perez MD ALT [Catalytic activity/Vol] 71 U/L High 5-33 [facility] Comment on above: Performed By: #### D AU #### [facility] [address] [place], [place] 0119083 Credit And Collection Manager: Garrett Perez MD Anion gap [Moles/Vol] 10 mmol/L Normal 9-17 [facility] Comment on above: Performed By: #### D AU #### [facility] [address] [place], [place] 536[address]83 Credit And Collection Manager: Garrett Perez MD AST [Catalytic activity/Vol] 35 U/L High <32 [facility] Comment on above: Performed By: #### D AU #### [facility] [address] [place], [place] 829[address]83 Credit And Collection Manager: Garrett Perez MD Bilirubin [Mass/Vol] 0.34 mg/dL Normal 0.3-1.2 [facility] Comment on above: Performed By: #### D AU #### [facility] [address] [place], [place] 648[address]83 Credit And Collection Manager: Garrett Perez MD BUN/CRE Ratio 14 Normal 9-20 [facility] Comment on above: Performed By: #### D AU #### [facility] [address] [place], [place] 2956783 Credit And Collection Manager: Garrett Perez MD Calcium [Mass/Vol] 10.3 mg/dL Normal 8.6-10.4 [facility] Comment on above: Performed By: #### D AU #### [facility] [address] [place], [place] 820[address]83 Credit And Collection Manager: Garrett Perez MD Chloride [Moles/Vol] 103 mmol/L Normal 98-107 [facility] Comment on above: Performed By: #### D AU #### [facility] [address] [place], [place] [address]204[address] Credit And Collection Manager: Garrett Perez MD CO2 [Moles/Vol] 23 mmol/L Normal 20-31 [facility] Comment on above: Performed By: #### D AU #### [facility] [address] [place], [place] 9869783 Credit And Collection Manager: Garrett Perez MD Creatinine [Mass/Vol] 0.65 mg/dL Normal 0.50-0.90 [facility] Comment on above: Performed By: #### D AU #### [facility] [address] [place], [place] 1719083 Credit And Collection Manager: Garrett Perez MD GFR, Amer >60 Normal >60 [facility] Comment on above: Performed By: #### D AU #### [facility] [address] [place], [place] 779[address]83 Credit And Collection Manager: Garrett Perez MD GFR,non Amer >60 Normal >60 [facility] Comment on above: Performed By: #### D AU #### [facility] [address] [place], [place] 7469083 Credit And Collection Manager: Garrett Perez MD Glucose [Mass/Vol] 84 mg/dL Normal 70-99 [facility] Comment on above: Performed By: #### D AU #### [facility] [address] [place], [place] 9432283 Credit And Collection Manager: Garrett Perez MD Potassium [Moles/Vol] 4.2 mmol/L Normal 3.7-5.3 [facility] Comment on above: Performed By: #### D AU #### [facility] [address] [place] [address] [place] [place], [place] 63[address]83 Credit And Collection Manager: Garrett Perez MD Protein [Mass/Vol] 7.4 g/dL Normal 6.4-8.3 [facility] Comment on above: Performed By: #### D AU #### [facility] [address] [place], [place] 279[address]83 Credit And Collection Manager: Garrett Perez MD Sodium [Moles/Vol] 136 mmol/L Normal 135-144 [facility] Comment on above: Performed By: #### D AU #### [facility] [address] [place] [address] Credit And Collection Manager: Garrett Perez MD Staging: Normal [facility] Comment on above: Result Comment: Stag e 1: Some kidney damage normal GFR Stage 2: Mild kidney damage GFR 60-89 Stage 3: Moderate kidney damage GFR 30-59 Stage 4: Severe kidney damage GFR 15-29 Stage 5: Severe kidney damage GFR <15 ESRD - chronic treatment by dialysis or transplant Performed By: #### D AU #### [facility] [address] [place] [address] [address] [place], [place] 0599383 Credit And Collection Manager: Garrett Perez MD Urea nitrogen [Mass/Vol] 9 mg/dL Normal 6-20 [facility] Comment on above: Performed By: #### D AU #### [facility] [address] [place] [address] Credit And Collection Manager: Garrett Perez MD Comprehensive Metabolic Pane lOrdered By: Jm Hussein on 04-09-2021 Albumin [Mass/Vol] 4.5 g/dL 3.5 - 5.2 g/dL [facility] Work Phone: Albumin/Globulin [Mass ratio] 1.6 {ratio} [employer] Phone: ALP (Bld) [Catalytic activity/Vol] 72 U/L 35 - 104 U/L [employer] Phone: ALT [Catalytic activity/Vol] 71 U/L High 5 - 33 U/L [employer] Phone: Anion gap [Moles/Vol] 10 mmol/L 9 - 17 mmol/L [employer] Phone: AST [Catalytic activity/Vol] 35 U/L High <32 [employer] Phone: Bilirubin [Mass/Vol] 0.34 mg/dL 0.3 - 1 .2 mg/dL [employer] Phone: Calcium [Mass/Vol] 10.3 mg/dL 8.6 - 10. 4 mg/dL [employer] Phone: Chloride [Moles/Vol] 103 mmol/L 98 - 10 7 mmol/L [employer] Phone: CO2 [Moles/Vol] 23 mmol/L 20 - 31 mmol/L [employer] Phone: Creatinine [Mass/Vol] 0.65 mg/dL 0.50 - 0.90 mg/dL [employer] Phone: Free PSA/Total PSA [Mass fraction] 7.4 g/dL 6.4 - 8.3 g/dL [employer] Phone: GFR >60 >60 mL/min [employer] Phone: GFR Non- >60 >60 mL/min [employer] Phone: Glucose [Mass/Vol] 84 mg/dL 70 - 99 mg/dL [employer] Phone: Potassium [Moles/Vol] 4.2 mmol/L 3.7 - 5.3 mmol/L [employer] Phone: Sodium [Moles/Vol] 136 mmol/L 135 - 144 mmol/L [facility] [employer] Phone: Urea nitrogen (BldV) [Mass/Vol] 9 mg/dL 6 - 20 mg/dL [facility] [employer] Phone: Urea nitrogen/Creatinine (Bld) [Mass ratio] 14 [facility] [employer] Phone: Drug Scr, Abuse, Uron 2020 Amphetamine(s),Ur Negative Normal NEG [facility] Comment on above: Performed By: #### C OVRB #### [facility] [address] [place] [address] Credit And Collection Manager: Garrett Perez MD Barbiturate(s),Ur Negative Normal NEG [facility] Comment on above: Performed By: #### C OVRB #### [facility] [address] [place] [address] Credit And Collection Manager: Garrett Perez MD Benzodiazepine(s) Negative Normal [facility] Comment on above: Performed By: #### C OVRB #### [facility] [address] [place] [address] Credit And Collection Manager: Garrett Perez MD Buprenorphrine, Ur Negative Normal [facility] Comment on above: Performed By: #### C OVRB #### [facility] [address] [place], [place] 4527383 Credit And Collection Manager: Garrett Perez MD Cannabinoid(s),Ur Positive Abnormal NEG [facility] Comment on above: Performed By: #### C OVRB #### [facility] [address] [place] [address] Credit And Collection Manager: Garrett Perze MD Cocaine Metabolite Negative Normal [facility] Comment on above: Performed By: #### C OVRB #### [facility] [address] [place] [address] Credit And Collection Manager: Garrett Perez MD Methadone Ql (U) Negative Normal NEG [facility] Comment on above: Performed By: #### C OVRB #### [facility] [address] [place] [address] Credit And Collection Manager: Garrett Perez MD Methamphetamine, Ur Negative Normal NEG [facility] Comment on above: Performed By: #### C OVRB #### [facility] [address] [place] [address] Credit And Collection Manager: Garrett Perez MD Opiate(s), Ur Negative Normal NEG [facility] Comment on above: Performed By: #### C OVRB #### [facility] [address] [place] [address] Credit And Collection Manager: Garrett Perez MD Oxycodone, Urine Negative Normal [facility] Comment on above: Performed By: #### C OVRB #### [facility] [address] [place], [place] 6036383 Credit And Collection Manager: Garrett Perez MD Phencyclidine, Ur Negative Normal [facility] Comment on above: Performed By: #### C OVRB #### [facility] [address] [place] [address] [place] [place], [place] 45[address]783 Credit And Collection Manager: Garrett Perez MD Propoxyphene,Urine Negative Normal [facility] Comment on above: Performed By: #### C OVRB #### [facility] [address] [place], [place] [address]83 Credit And Collection Manager: Garrett Perez MD Tricyclic antidepressants Screen Ql (U) Negative Normal [facility] Comment on above: Result Comment: Drug screen results are to be used for medical purposes only. All positive results are unconfirmed. Testing for employment or legal uses should be sent to a reference laboratory for confirmation. Performed By: #### C OVRB #### [facility] [address] [place] [address] Credit And Collection Manager: Garrett Perez MD Interpretive Info NOT REPORTED Normal [facility] Comment on above: Performed By: #### C OVRB #### [facility] [address] [place] [address] [place] [address] Credit And Collection Manager: Garrett Perez MD Drug Scr, Abuse, UrOrdered B y: Jm Hussein on 04-09-2021 MDMA, Urine NOT REPORTED Normal NEG [employer] Phone: Comment on above: Performed By: #### C OVRB #### [address] [place] [address] Credit And Collection Manager: Garrett Perez MD EthanolOrdered By: Jm chauhan on 04-09-2021 Ethanol [Mass/Vol] mg/dL <10 mg/dL [facility]: Ethanol percent <0.010 <0.010 % [facility] Phone: [facility]: Ethanol Alcoholon 04-09-2021 Ethanol [Mass/Vol] mg/dL Normal <10 [facility] Comment on above: Performed By: #### A LCB, ACET #### [address] [place] [address] Credit And Collection Manager: Garrett Perez MD Ethanol percent <0.010 Normal <0.010 [facility] Comment on above: Performed By: #### A LCB, ACET #### [address] [place] [address] Credit And Collection Manager: Garrett Perez MD HCG Qualitative, SerumOrdere d By: Jm Hussein on 04-09-2021 hCG Qual Negative NEGATIVE [facility]: Comment on above: Specimens with hCG l evels near the threshold of the test (25 mIU/mL) may give a negative or indeterminate result. In such cases, another test should be performed with a new specimen in 48-72 hours. If early is suspected clinically in this setting, correlation with quantitative serum b-hCG level is suggested. [employer] has confirmed the use of plasma for this test. This has not been cleared or approved by the U.S. Food and Drug Administration. The FDA has determined that such clearance is not necessary. [employer] Phone: HCG Screen, Bloodon 04-09-20 21 HCG Screen, Blood Negative Normal NEG [facility] Comment on above: Result Comment: Spec imens with hCG levels near the threshold of the test (25 mIU/mL) may give a negative or indeterminate result. In such cases, another test should be performed with a new specimen in 48-72 hours. If early is suspected clinically in this setting, correlation with quantitative serum b-hCG level is suggested. [employer] has confirmed the use of plasma for this test. This has not been cleared or approved by the U.S. Food and Drug Administration. The FDA has determined that such clearance is not necessary. Performed By: #### D AU #### [facility] [address] [place] [address] [place] [address] Credit And Collection Manager: Garrett Perez MD Laboratory - Chemistry and C hemistry - challengeOrdered By: Jm Hussein on 04-09-2021 GFR/1.73 sq M.predicted MDRD (S/P/Bld) [Vol rate/Area] [facility]: Comment on above: Average GFR for 20-2 9 years old: 116 mL/min/1.73sq m Chronic Kidney Disease: <60 mL/min/1.73sq m Kidney failure: <15 mL/min/1.73sq m eGFR calculated using average adult body mass. Additional eGFR calculator available at: http://www.BallLogic.com/multiple_crcl_2012.htm Stage 1: Some kidney damage normal GFR Stage 2: Mild kidney damage GFR 60-89 Stage 3: Moderate kidney damage GFR 30-59 Stage 4: Severe kidney damage GFR 15-29 Stage 5: Severe kidney damage GFR <15 ESRD - chronic treatment by dialysis or transplant No Panel InformationOrdered By: Jm Hussein on 04-09-2021 Interpretation and review of laboratory results Abnormal [facility]: [facility] [employer] Phone: [id number] 04-09-2021 SARS-CoV-2 (COVID-19) RNA MORENA+probe Ql (Unsp spec) Not detected Normal NOTDET [facility] Comment on above: Result Comment: Rapid [...] management decisions. Fact sheet for Healthcare Providers: https://www.fda.gov/media/332793/download Fact sheet for Patients: https://www.fda.gov/media/445353/download Methodology: Isothermal Nucleic Acid Amplification Performed By: #### C OVRB #### [facility] [address] [place] [address] Credit And Collection Manager: Garrett Perez MD SPECIMEN REJECTIONOrdered By : Jm Hussein on 04-09-2021 - NOT REPORTED [facility] [employer] Phone: Ordered Test CDP [facility] [employer] Phone: Reason for Rejection Unable to perform testing: No specimen received. [facility] [employer] Phone: Specimen source Nom (Unsp spec) .BLOOD [facility] [employer] Phone: [facility] [employer] Phone: Salicylateon 04-09-2021 Salicylate <1 Low 3-10 [facility] Comment on above: Performed By: #### D AU #### [facility] [address] [place], [place] 224[address]83 Credit And Collection Manager: Garrett Perez MD SalicylateOrdered By: Jm Hussein on 04-09-2021 Salicylate Lvl <1 Low 3 - 10 mg/dL [facility] Work Phone: Specimen Rejectionon 021 Reason for rejection Unable to perform testing: No specimen received. Normal [facility] Comment on above: Performed By: #### C OVRB #### [facility] [address] [place], [place] [address]67[address]83 Credit And Collection Manager: Garrett Perez MD Source of sample .BLOOD Normal [facility] Comment on above: Performed By: #### C OVRB #### [facility] [address] [place], [place] 385[address]83 Credit And Collection Manager: Garrett Perez MD Test ordered CDP Normal [facility] Comment on above: Performed By: #### C OVRB #### [facility] [address] [place], [place] 957[address]83 Credit And Collection Manager: Garrett Perez MD ----- NOT REPORTED [facility] Comment on above: Performed By: #### C OVRB #### [facility] [address] [place] [address] Credit And Collection Manager: Garrett Perez MD Urinalysis w/ Microon 2020 ----- Normal [facility] Comment on above: Performed By: #### C OVRB #### [facility] [address] [place], [place] [address]78[address]83 Credit And Collection Manager: Garrett Perez MD Bacteria 1+ Abnormal NONE [facility] Comment on above: Performed By: #### C OVRB #### [facility] [address] [place] [address] Credit And Collection Manager: Garrett Perez MD Bilirubin, SemiQt,Ur Negative Normal NEG [facility] Comment on above: Performed By: #### C OVRB #### [facility] [address] [place] [address] Credit And Collection Manager: Garrett Perez MD Blood, Urine Negative Normal NEG [facility] Comment on above: Performed By: #### C OVRB #### [facility] [address] [place] [address] Credit And Collection Manager: Garrett Perez MD Clarity (U) CLEAR Normal CLEAR [facility] Comment on above: Performed By: #### C OVRB #### [facility] [address] [place] [address] Credit And Collection Manager: Garrett Perez MD Color (U) YELLOW Normal YEL [facility] Comment on above: Performed By: #### C OVRB #### [facility] [address] [place], [place] 628[address]83 Credit And Collection Manager: Garrett Perez MD Epithelial cells LM Ql (Urine sed) 5 TO 10 Normal 0-25 [facility] Comment on above: Performed By: #### C OVRB #### [facility] [address] [place], [place] 3154783 Credit And Collection Manager: Garrett Perez MD Glucose Ql (U) Negative Normal NEG [facility] Comment on above: Performed By: #### C OVRB #### [facility] [address] [place], [place] 8[address]83 Credit And Collection Manager: Garrett Perez MD Ketones Ql (U) Negative Normal NEG [facility] Comment on above: Performed By: #### C OVRB #### [facility] [address] [place] [address] Credit And Collection Manager: Garrett Perez MD Leukocyte esterase Test strip Ql (U) Negative Normal NEG [facility] Comment on above: Performed By: #### C OVRB #### [facility] [address] [place], [place] 339[address]83 Credit And Collection Manager: Garrett Perez MD Nitrite,Ur Negative Normal NEG [facility] Comment on above: Performed By: #### C OVRB #### [facility] [address] [place], [place] 85[address]83 Credit And Collection Manager: Garrett Perez MD PH,Ur 5.5 Normal 5.0-9.0 [facility] Comment on above: Performed By: #### C OVRB #### [facility] [address] [place], [place] 1722783 Credit And Collection Manager: Garrett Perez MD Protein Ql (U) Negative Normal NEG [facility] Comment on above: Performed By: #### C OVRB #### [facility] [address] [place], [place] 29[address]83 Credit And Collection Manager: Garrett Perez MD Spec. [place],Ur 1.025 High 1.010-1.020 [facility] Comment on above: Performed By: #### C OVRB #### [facility] [address] [place], [place] 8665483 Credit And Collection Manager: Garrett Perez MD Urine RBC's None Normal 0-2 [facility] Comment on above: Performed By: #### C OVRB #### [facility] [address] [place], [place] 835[address]83 Credit And Collection Manager: Garrett Perez MD Urine WBC's 0 TO 2 Normal 0-5 [facility] Comment on above: Performed By: #### C OVRB #### [facility] [address] [place], [place] 8882183 Credit And Collection Manager: Garrett Perez MD Urobilinogen,Ur Normal Normal NORM [facility] Comment on above: Performed By: #### C OVRB #### [facility] [address] [place], [place] 4470683 Credit And Collection Manager: Garrett Perez MD Amorphous sediment LM Ql (Urine sed) NOT REPORTED Normal NONE [facility] Comment on above: Performed By: #### C OVRB #### [facility] [address] [place], [place] 190[address]83 Credit And Collection Manager: Garrett Perez MD Casts NOT REPORTED Normal [facility] Comment on above: Performed By: #### C OVRB #### [facility] [address] [place] [address] Credit And Collection Manager: Garrett Perez MD Comment NOT REPORTED Normal [facility] Comment on above: Performed By: #### C OVRB #### [facility] [address] [place] [address] Credit And Collection Manager: Garrett Perez MD Crystals LM Nom (Urine sed) NOT REPORTED Normal [facility] Comment on above: Performed By: #### C OVRB #### [facility] [address] [place] [address] Credit And Collection Manager: Garrett Perez MD Epithelial, Renal NOT REPORTED Normal [address] [facility] Comment on above: Performed By: #### C OVRB #### [facility] [address] [place], [place] [id number] Credit And Collection Manager: Garrett Perez MD Mucus Strands NOT REPORTED Normal [facility] Comment on above: Performed By: #### C OVRB #### [facility] [address] [place] [address] Credit And Collection Manager: Garrett Perez MD Other Observations NOT REPORTED Normal [facility] Comment on above: Performed By: #### C OVRB #### [facility] [address] [place] [address] Credit And Collection Manager: Garrett Perez MD Trichomonas NOT REPORTED Normal [facility] Comment on above: Performed By: #### C OVRB #### [facility] [address] [place] [address] Credit And Collection Manager: Garrett Perez MD Yeast NOT REPORTED Normal NONE [facility] Comment on above: Performed By: #### C OVRB #### [facility] [address] [place] [address] Credit And Collection Manager: Garrett Perez MD Urinalysis with microscopicO rdered By: Kalyan Irizarry on 04-09-2021 - [employer] Work Phone: Amorphous, UA NOT REPORTED None [employer] Phone: Bacteria, UA 1+ Abnormal None [employer] Phone: Bilirubin Urine Negative NEGATIVE [employer] Phone: Casts UA NOT REPORTED /LPF [employer] Phone: Color, UA YELLOW YELLOW [employer] Work Phone: Crystals, UA NOT REPORTED None /HPF [employer] Work Phone: Epithelial Cells UA 5 TO 10 [employer] Phone: Glucose, Ur Negative NEGATIVE [employer] Phone: Interpretation and review of laboratory results Abnormal [employer] Phone: Ketones Ql (U) Negative NEGATIVE [employer] Phone: Leukocyte esterase Test strip Ql (U) Negative NEGATIVE [employer] Phone: Mucus, UA NOT REPORTED None [employer] Phone: Nitrite, Urine Negative NEGATIVE [employer] Phone: Other Observations UA NOT REPORTED NOT REQ. [facility] Work Phone: pH, UA 5.5 [employer] Work Phone: Protein, UA Negative NEGATIVE [employer] Phone: RBC, UA None [facility] Work Phone: Renal Epithelial, UA NOT REPORTED 0 /HPF [facility] Work Phone: Specific [place], UA 1.025 High [facility] Work Phone: Trichomonas, UA NOT REPORTED None [facility] Work Phone: Turbidity UA CLEAR CLEAR [facility] Work Phone: Urinalysis Comments NOT REPORTED [facility] Work Phone: Urine Hgb Negative NEGATIVE [facility] Work Phone: Urobilinogen, Urine Normal Normal [facility] Work Phone: WBC, UA 0 TO 2 [facility] Work Phone: Yeast, UA NOT REPORTED None [facility] Work Phone: [facility] Work Phone: Urine Drug ScreenOrdered By: Jm Hussein on 04-09-2021 Amphetamine Screen, Ur Negative NEGATIVE [facility] Work Phone: Barbiturate Screen, Ur Negative NEGATIVE [facility] Work Phone: Benzodiazepine Screen, Urine Negative NEGATIVE [facility] Work Phone: Buprenorphine Urine Negative NEGATIVE [facility] Work Phone: Cannabinoid Scrn, Ur Positive Abnormal NEGATIVE [facility] Work Phone: Cocaine Metabolite, Urine Negative NEGATIVE [facility] Work Phone: Interpretation and review of laboratory results Abnormal [facility] Work Phone: Methadone Screen, Urine Negative NEGATIVE [facility] Work Phone: Methamphetamine, Urine Negative NEGATIVE [facility] Work Phone: Opiates, Urine Negative NEGATIVE [facility] Work Phone: Oxycodone Screen, Ur Negative NEGATIVE [facility] Work Phone: Phencyclidine, Urine Negative NEGATIVE [employer] Phone: Propoxyphene, Urine Negative NEGATIVE [employer] Phone: Test Information NOT REPORTED [employer] Phone: Tricyclic Antidepressants, Urine Negative NEGATIVE [employer] Phone: Comment on above: Drug screen results are to be used for medical purposes only. All positive results are unconfirmed. Testing for employment or legal uses should be sent to a reference laboratory for confirmation. [employer] Phone: COVID-19 PCRon 06-09-2020 SARS-CoV-2, MORENA Not Detected Normal Not Detected [facility] Comment on above: Result Comment: This test was developed and its performance characteristics determined by [employer]. This test has not been FDA cleared [...] assay. Performed By: #### C VDPCR #### [facility] [address] [place] [address] Cresencio Murphy CBC/PLATELET & AUTO DIFFEREN Ryan 06-12-2017 Basophils Auto #/vol (Bld) 0.0 10*3/uL Normal 0.0-0.1 [facility] Basophils/100 WBC Auto (Bld) 0 % Normal 0-1 [facility] CBC/PLATELET & AUTO DIFFERENTIAL 0.0 10*3/uL Normal - [facility] Comment on above: Result Comment: er 7 Eosinophils 0.0 10*3/uL Normal 0.0-0.4 [facility] Eosinophils/100 leukocytes 0 % Normal 0-5 [facility] Erythrocyte distribution width Auto Ratio (RBC) 12.9 % Normal 11.7-14.4 [facility] Erythrocytes (RBC) 4.79 10*6/uL Normal 4.20-5.40 [facility] Hematocrit (HCT) 40.0 % Normal 37.0-47.0 [facility] Hemoglobin mass conc (Bld) 14.0 g/dL Normal 11.5-16.0 [facility] Lymphocytes 1.8 10*3/uL Normal 0.9-2.5 [facility] Lymphocytes/100 leukocytes 10 % Low 13-44 [facility] MCH 29.2 pg Normal 27.0-31.0 [facility] MCHC mass conc (RBC) 35.0 g/dL Normal 31.5-36.0 [facility] MCV 83.5 fL Normal 82.0-101.0 [facility] Monocytes 1.0 10*3/uL Normal 0.1-1.0 [facility] Monocytes/100 leukocytes 6 % Normal 5-9 [facility] Neutrophils 14.5 10*3/uL High 2.1-6.5 [facility] Neutrophils/100 leukocytes 83 % High 39-75 [facility] Nucleated erythrocytes 0 % Normal - [facility] Platelet mean volume (PMV) 8.5 fL Normal 8.2-11.4 [facility] Platelets 239.0 10*3/uL Normal 130.0-400.0 [facility] WBC (Leukocytes) 17.6 10*3/uL High 4.4-10.2 [facility] CHEST PORTABLEon 06-12-2017 CHEST PORTABLE EXAM: Portable chest.CLINICAL STATEMENT: Syncopal episode today.COMPARISON: 10/31/2016.TECHNIQUE: Single mobile AP upright view chest at 3:21 PM.FINDINGS: Heart size within normal limits. There is no mediastinal widening.The lung cummins and pleural spaces are clear.IMPRESSION:No acute change.Dictated Physician: Loki PiperDictated On: 06/12/2017 15:30Interpreted By: Loki PiperTranscribed By: Cheo Piperigned By: Loki Piper.Signed On: 06/12/2017 15:30 Normal [facility] HCG URINEon 06-12-2017 HCG.beta subunit ( test) Ql (U) Negative Normal Negative [facility] HCG.beta subunit ( test) Ql (U) SEE NOTE Normal - [facility] Comment on above: Result Comment: er 7 M I PANELon 06-12-2017 Anion gap 12.8 mmol/L Normal - [facility] BUN/Creatinine Ratio 10.2 mg/mg Normal [facility] Calcium 8.8 mg/dL Normal 8.5-10.1 [facility] Chloride 107 mmol/L Normal 98-107 [facility] CO2 27.1 mmol/L Normal 21.0-32.0 [facility] Creatinine 0.98 mg/dL Normal 0.55-1.02 [facility] eGFR (non-black) mL/min/{1.73_m2} Normal >60 [facility] Glucose mass conc 87 mg/dL Normal 70-110 [facility] M I PANEL SEE NOTE Normal - [facility] Comment on above: Result Comment: er 7 Magnesium 1.9 mg/dL Normal 1.8-2.4 [facility] Osmolality 283 mosm/kg Normal - [facility] Potassium molar conc 3.9 mmol/L Normal 3.5-5.1 [facility] Sodium 143 mmol/L Normal 136-145 [facility] Troponin I.cardiac mass conc ng/mL Normal 0.000-0.056 [facility] Urea nitrogen 10 mg/dL Normal 7-18 [facility] PT PROTIMEon 06-12-2017 INR Coag RelTime (PPP) 1.0 {INR} Normal - [facility] Prothrombin time (PT) Coag time (PPP) 10.5 s Normal 9.3-11.7 [facility] PT PROTIME SEE NOTE Normal [facility] Comment on above: Result Comment: er 7 PTTon 06-12-2017 aPTT 24.8 s Normal 24.5-32.7 [facility] Comment on above: Result Comment: er 7 URINALYSIS W/ MICROSCOPIC if indicatedon 06-12-2017 Bilirubin Ql (U) Negative Normal Negative [facility] Blood Moderate Abnormal Negative [facility] Blood product type Clean catch Normal - [facility] Glucose mass conc Normal Normal Normal [facility] Protein Moderate Abnormal Negative [facility] Sq. Epithelial Cells 3 /[HPF] Abnormal None seen [facility] URINALYSIS W/ MICROSCOPIC if indicated 0 /[HPF] Normal 0-2 [facility] Comment on above: Result Comment: er 7 Urine, appearance CLEAR Normal Clear [facility] Urine, bacteria in sediment 1 /[HPF] Abnormal None seen [facility] Urine, color YELLOW Normal - [facility] Urine, ketones presence Negative Normal Negative H [facility] Urine, nitrite presence Positive Abnormal Negative H [facility] Urine, pH 7.0 [pH] Normal 5.0 - 9.0 [facility] Urine, specific gravity 1.010 Normal 1.01 0 - 1.030 [facility] Urine, urobilinogen Normal Normal Normal [facility] WBC (Leukocytes) 6 /[HPF] Abnormal 0-5 [facility] WBC (Leukocytes) Moderate Abnormal Negative [facility] Vital Signs Date Time Vital Sign Value Performing Clinician Facility 07-18-2024 16:27-0400 Body height 162.56 cm Denny Lomeli CNP Work Phone: [facility] Work Phone: 07-18-2024 16:27-0400 Body mass index (BMI) [Ratio] 57.2 kg/m2 Denny Lomeli CUSTOMER SERVICE ASSISTANT Work Phone: [facility] Work Phone: 07-18-2024 16:27-0400 Body surface area Derived from formula 2.4 m2 Denny Lomeli CUSTOMER SERVICE ASSISTANT Work Phone: [facility] Work Phone: 07-18-2024 16:27-0400 Body temperature 97.6 [degF] Denny Lomeli CUSTOMER SERVICE ASSISTANT Work Phone: [facility] Work Phone: 07-18-2024 16:27-0400 Body weight 151.05 kg Denny Lomeli CUSTOMER SERVICE ASSISTANT Work Phone: [facility] Work Phone: 07-18-2024 16:27-0400 Diastolic blood pressure 86 mm[Hg] Denny Lomeli CUSTOMER SERVICE ASSISTANT Work Phone: [facility] Work Phone: 07-18-2024 16:27-0400 Heart rate 103 /min Denny Lomeli CUSTOMER SERVICE ASSISTANT Work Phone: [facility] Work Phone: 07-18-2024 16:27-0400 Respiratory rate 18 /min Denny Lomeli CUSTOMER SERVICE ASSISTANT Work Phone: [facility] Work Phone: 07-18-2024 16:27-0400 SaO2% (BldA) [Mass fraction] 95 % Denny Lomeli CUSTOMER SERVICE ASSISTANT Work Phone: [facility] Work Phone: 07-18-2024 16:27-0400 Systolic blood pressure 135 mm[Hg] Denny Lomeli CUSTOMER SERVICE ASSISTANT Work Phone: [facility] Work Phone: 06-13-2024 17:46-0400 Diastolic blood pressure 84 mm[Hg] Denny Lomeli CUSTOMER SERVICE ASSISTANT Work Phone: [facility] Comment on above: manual large 06-13-2024 17:46-0400 Systolic blood pressure 144 mm[Hg] Denny Lomeli CUSTOMER SERVICE ASSISTANT Work Phone: [facility] Comment on above: manual large 06-13-2024 17:21-0400 Diastolic blood pressure 86 mm[Hg] Denny Lomeli CUSTOMER SERVICE ASSISTANT Work Phone: [facility] Work Phone: 06-13-2024 17:21-0400 Systolic blood pressure 154 mm[Hg] Denny Lomeli CNP Work Phone: [facility] Work Phone: 06-13-2024 16:45-0400 Body height 162.56 cm Denny Lomeli CNP Work Phone: [facility] Work Phone: 06-13-2024 16:45-0400 Body mass index (BMI) [Ratio] 57.9 kg/m2 Denny Lomeli CNP Work Phone: [facility] Work Phone: 06-13-2024 16:45-0400 Body surface area Derived from formula 2.4 m2 Denny Lomeli CNP Work Phone: [facility] Work Phone: 06-13-2024 16:45-0400 Body weight 153.14 kg Denny Lomeli CNP Work Phone: [facility] Work Phone: 06-13-2024 16:45-0400 Diastolic blood pressure 98 mm[Hg] Denny Lomeli CNP Work Phone: [facility] Work Phone: 06-13-2024 16:45-0400 Heart rate 103 /min Denny Lomeli CNP Work Phone: [facility] Work Phone: 06-13-2024 16:45-0400 SaO2% (BldA) [Mass fraction] 96 % Denny Lomeli CNP Work Phone: [facility] Work Phone: 06-13-2024 16:45-0400 Systolic blood pressure 151 mm[Hg] Denny Lomeli CNP Work Phone: [facility] Work Phone: 04-10-2024 16:50-0400 Diastolic blood pressure 89 mm[Hg] Denny Lomeli CUSTOMER SERVICE ASSISTANT Work Phone: [facility] 04-10-2024 16:50-0400 Heart rate 75 /min Denny Lomeli CUSTOMER SERVICE ASSISTANT Work Phone: [facility] 04-10-2024 16:50-0400 Systolic blood pressure 137 mm[Hg] Denny Lomeli CUSTOMER SERVICE ASSISTANT Work Phone: [facility] 04-10-2024 16:39-0400 Body height 162.56 cm Denny Lomeli CUSTOMER SERVICE ASSISTANT Work Phone: [facility] 04-10-2024 16:39-0400 Body mass index (BMI) [Ratio] 54.6 kg/m2 Denny Lomeli CUSTOMER SERVICE ASSISTANT Work Phone: [facility] 04-10-2024 16:39-0400 Body surface area Derived from formula 2.4 m2 Denny Lomeli CUSTOMER SERVICE ASSISTANT Work Phone: [facility] 04-10-2024 16:39-0400 Body weight 144.24 kg Denny Lomeli CUSTOMER SERVICE ASSISTANT Work Phone: [facility] 04-10-2024 16:39-0400 Diastolic blood pressure 94 mm[Hg] Denny Lomeli CUSTOMER SERVICE ASSISTANT Work Phone: [facility] 04-10-2024 16:39-0400 Heart rate 75 /min Denny Lomeli CUSTOMER SERVICE ASSISTANT Work Phone: [facility] 04-10-2024 16:39-0400 SaO2% (BldA) [Mass fraction] 98 % Denny Lomeli CUSTOMER SERVICE ASSISTANT Work Phone: [facility] 04-10-2024 16:39-0400 Systolic blood pressure 161 mm[Hg] Denny Lomeli CUSTOMER SERVICE ASSISTANT Work Phone: [facility] 01-17-2024 19:09-0400 Body height 162.56 cm Denny Lomeli CUSTOMER SERVICE ASSISTANT Work Phone: [facility] 01-17-2024 19:09-0400 Body mass index (BMI) [Ratio] 52.7 kg/m2 Denny Lomeli CUSTOMER SERVICE ASSISTANT Work Phone: [facility] 01-17-2024 19:09-0400 Body surface area Derived from formula 2.3 m2 Denny Lomeli CUSTOMER SERVICE ASSISTANT Work Phone: [facility] 01-17-2024 19:09-0400 Body weight 139.26 kg Denny Lomeli CUSTOMER SERVICE ASSISTANT Work Phone: [facility] 01-17-2024 19:09-0400 Diastolic blood pressure 88 mm[Hg] Denny Armani CUSTOMER SERVICE ASSISTANT Work Phone: [facility] 01-17-2024 19:09-0400 Heart rate 106 /min Denny Lomeli CUSTOMER SERVICE ASSISTANT Work Phone: [facility] 01-17-2024 19:09-0400 SaO2% (BldA) [Mass fraction] 97 % Denny Lomeli CUSTOMER SERVICE ASSISTANT Work Phone: [facility] 01-17-2024 19:09-0400 Systolic blood pressure 134 mm[Hg] Denny Landonen CUSTOMER SERVICE ASSISTANT Work Phone: [facility] 06-14-2023 15:00-0400 Diastolic blood pressure 69 mm[Hg] Denny Landonen CUSTOMER SERVICE ASSISTANT Work Phone: [facility] 06-14-2023 15:00-0400 Systolic blood pressure 116 mm[Hg] Denny Armani CUSTOMER SERVICE ASSISTANT Work Phone: [facility] 05-31-2023 15:52-0400 Diastolic blood pressure 78 mm[Hg] Denny Armani CUSTOMER SERVICE ASSISTANT Work Phone: [facility] Work Phone: 05-31-2023 15:52-0400 Systolic blood pressure 137 mm[Hg] Denny Armani CUSTOMER SERVICE ASSISTANT Work Phone: [facility] Work Phone: 05-10-2023 17:08-0400 Body height 162.56 cm Denny Armani CUSTOMER SERVICE ASSISTANT Work Phone: [facility] Work Phone: 05-10-2023 17:08-0400 Body mass index (BMI) [Ratio] 32.8 kg/m2 Denny Lomeli CNP Work Phone: [facility] Work Phone: 05-10-2023 17:08-0400 Body surface area Derived from formula 1.9 m2 Denny Lomeli CNP Work Phone: [facility] Work Phone: 05-10-2023 17:08-0400 Body temperature 98.2 [degF] Denny Lomeli CNP Work Phone: [facility] Work Phone: 05-10-2023 17:08-0400 Body weight 86.64 kg Denny Lomeli CNP Work Phone: [facility] Work Phone: 05-10-2023 17:08-0400 Diastolic blood pressure 76 mm[Hg] Denny Lomeli CNP Work Phone: [facility] Work Phone: 05-10-2023 17:08-0400 Heart rate 97 /min Denny Lomeli CNP Work Phone: [facility] Work Phone: 05-10-2023 17:08-0400 SaO2% (BldA) [Mass fraction] 97 % Denny Lomeli CNP Work Phone: [facility] Work Phone: 05-10-2023 17:08-0400 Systolic blood pressure 111 mm[Hg] Denny Lomeli CNP Work Phone: [facility] Work Phone: 05-01-2023 14:03-0400 Diastolic blood pressure 76 mm[Hg] Denny Lomeli CNP Work Phone: [facility] 05-01-2023 14:03-0400 Heart rate 94 /min Denny Lomeli CNP Work Phone: [facility] 05-01-2023 14:03-0400 Systolic blood pressure 124 mm[Hg] Denny Lomeli CNP Work Phone: [facility] 08-12-2022 13:36-0400 Body height 162.56 cm Denny Lomeli CNP Work Phone: [facility] Work Phone: 08-12-2022 13:36-0400 Body mass index (BMI) [Ratio] 52.5 kg/m2 Denny Lomeli CNP Work Phone: [facility] Work Phone: 08-12-2022 13:36-0400 Body surface area Derived from formula 2.3 m2 Denny Lomeli CNP Work Phone: [facility] Work Phone: 08-12-2022 13:36-0400 Body temperature 99.3 [degF] Denny Lomeli CNP Work Phone: [facility] Work Phone: 08-12-2022 13:36-0400 Body weight 138.8 kg Denny Lomeli CNP Work Phone: [facility] Work Phone: 08-12-2022 13:36-0400 Diastolic blood pressure 86 mm[Hg] Denny Lomeli CNP Work Phone: [facility] Work Phone: 08-12-2022 13:36-0400 Heart rate 96 /min Denny Lomeli CNP Work Phone: [facility] Work Phone: 10-21-2022 13:36-0400 Heart Rate Rhythm 1 1 Denny Lomeli CNP Work Phone: [facility] Work Phone: 08-12-2022 13:36-0400 SaO2% (BldA) [Mass fraction] 97 % Denny Lomeli CNP Work Phone: [facility] Work Phone: 08-12-2022 13:36-0400 Systolic blood pressure 124 mm[Hg] Denny Lomeli CNP Work Phone: [facility] Work Phone: 06-15-2022 15:17-0400 Body height 162.56 cm Denny Lomeli CNP Work Phone: [facility] Work Phone: 06-15-2022 15:17-0400 Body mass index (BMI) [Ratio] 53.6 kg/m2 Denny Lomeli CNP Work Phone: [facility] Work Phone: 06-15-2022 15:17-0400 Body surface area Derived from formula 2.36 m2 Denny Lomeli CNP Work Phone: [facility] Work Phone: 06-15-2022 15:17-0400 Body surface area Derived from formula 2.4 m2 Denny Lomeli CNP Work Phone: [facility] Work Phone: 06-15-2022 15:17-0400 Body temperature 97.4 [degF] Denny Lomeli CNP Work Phone: [facility] Work Phone: 06-15-2022 15:17-0400 Body weight 141.52 kg Denny Lomeli CNP Work Phone: [facility] Work Phone: 06-15-2022 15:17-0400 Diastolic blood pressure 82 mm[Hg] Denny Lomeli CNP Work Phone: [facility] Work Phone: 06-15-2022 15:17-0400 Heart rate 86 /min Denny Lomeli CNP Work Phone: [facility] Work Phone: 06-15-2022 15:17-0400 SaO2% (BldA) [Mass fraction] 98 % Denny Lomeli CNP Work Phone: [facility] Work Phone: 06-15-2022 15:17-0400 Systolic blood pressure 124 mm[Hg] Denny Lomeli CNP Work Phone: [facility] Work Phone: 06-08-2022 15:06-0400 Body height 162.56 cm Denny Lomeli CNP Work Phone: [facility] Work Phone: 06-08-2022 15:06-0400 Body mass index (BMI) [Ratio] 52.2 kg/m2 Denny Lomeli CNP Work Phone: [facility] Work Phone: 06-08-2022 15:06-0400 Body surface area Derived from formula 2.34 m2 Denny Lomeli CNP Work Phone: [facility] Work Phone: 06-08-2022 15:06-0400 Body surface area Derived from formula 2.3 m2 Denny Lomeli CNP Work Phone: [facility] Work Phone: 06-08-2022 15:06-0400 Body temperature 99.3 [degF] Denny Lomeli CNP Work Phone: [facility] Work Phone: 06-08-2022 15:06-0400 Body weight 137.89 kg Denny Lomeli CUSTOMER SERVICE ASSISTANT Work Phone: [facility] Work Phone: 06-08-2022 15:06-0400 Diastolic blood pressure 94 mm[Hg] Denny Lomeli CUSTOMER SERVICE ASSISTANT Work Phone: [facility] Work Phone: 06-08-2022 15:06-0400 Heart rate 105 /min Denny Lomeli CUSTOMER SERVICE ASSISTANT Work Phone: [facility] Work Phone: 06-08-2022 15:06-0400 Heart Rate Rhythm 1 1 Denny Lomeli CUSTOMER SERVICE ASSISTANT Work Phone: [facility] Work Phone: 06-08-2022 15:06-0400 SaO2% (BldA) [Mass fraction] 98 % Denny Lomeli CUSTOMER SERVICE ASSISTANT Work Phone: [facility] Work Phone: 06-08-2022 15:06-0400 Systolic blood pressure 126 mm[Hg] Denny Lomeli CUSTOMER SERVICE ASSISTANT Work Phone: [facility] Work Phone: 05-27-2022 16:34-0400 Diastolic blood pressure 102 mm[Hg] Denny Lomeli CUSTOMER SERVICE ASSISTANT Work Phone: [facility] Work Phone: 05-27-2022 16:34-0400 Systolic blood pressure 150 mm[Hg] Denny Armani CUSTOMER SERVICE ASSISTANT Work Phone: [facility] Work Phone: 05-27-2022 15:08-0400 Body height 162.56 cm Denny Lomeli CUSTOMER SERVICE ASSISTANT Work Phone: [facility] Work Phone: 05-27-2022 15:08-0400 Body mass index (BMI) [Ratio] 52.6 kg/m2 Denny Lomeli CNP Work Phone: [facility] Work Phone: 05-27-2022 15:08-0400 Body surface area Derived from formula 2.34 m2 Denny Lomeli CNP Work Phone: [facility] Work Phone: 05-27-2022 15:08-0400 Body surface area Derived from formula 2.3 m2 Denny Lomeli CNP Work Phone: [facility] Work Phone: 05-27-2022 15:08-0400 Body temperature 98.5 [degF] Denny Lomeli CNP Work Phone: [facility] Work Phone: 05-27-2022 15:08-0400 Body weight 138.98 kg Denny Lomeli CNP Work Phone: [facility] Work Phone: 05-27-2022 15:08-0400 Diastolic blood pressure 108 mm[Hg] Denny Lomeli CNP Work Phone: [facility] Work Phone: 05-27-2022 15:08-0400 Heart rate 89 /min Denny Lomeli CNP Work Phone: [facility] Work Phone: 05-27-2022 15:08-0400 SaO2% (BldA) [Mass fraction] 99 % Denny Lomeli CNP Work Phone: [facility] Work Phone: 05-27-2022 15:08-0400 Systolic blood pressure 152 mm[Hg] Denny Lomeli CNP Work Phone: [facility] Work Phone: 07-15-2021 13:50-0400 Body height 162.56 cm Denny Lomeli CNP Work Phone: [facility] Work Phone: 07-15-2021 13:50-0400 Body mass index (BMI) [Ratio] 50.1 kg/m2 Denny Lomeli CNP Work Phone: [facility] Work Phone: 07-15-2021 13:50-0400 Body surface area Derived from formula 2.3 m2 Denny Lomeli CNP Work Phone: [facility] Work Phone: 07-15-2021 13:50-0400 Body temperature 96.8 [degF] Denny Lomeli CNP Work Phone: [facility] Work Phone: 07-15-2021 13:50-0400 Body weight 132.45 kg Denny Lomeli CNP Work Phone: [facility] Work Phone: 07-15-2021 13:50-0400 Diastolic blood pressure 86 mm[Hg] Denny Lomeli CNP Work Phone: [facility] Work Phone: 07-15-2021 13:50-0400 Heart rate 86 /min Denny Lomeli CNP Work Phone: [facility] Work Phone: 07-15-2021 13:50-0400 Respiratory rate 18 /min Denny Lomeli CNP Work Phone: [facility] Work Phone: 07-15-2021 13:50-0400 SaO2% (BldA) [Mass fraction] 96 % Denny Lomeli CUSTOMER SERVICE ASSISTANT Work Phone: [facility] Work Phone: 07-15-2021 13:50-0400 Systolic blood pressure 132 mm[Hg] Denny Lomeli CUSTOMER SERVICE ASSISTANT Work Phone: [facility] Work Phone: 07-06-2021 23:34-0400 Heart rate 100 /min Kalyan Irizarry MD Work Phone: [employer] Work Phone: 07-06-2021 23:30-0400 Diastolic blood pressure 94 mm[Hg] Kalyan Irizarry MD Work Phone: [employer] Work Phone: 07-06-2021 23:30-0400 Systolic blood pressure 146 mm[Hg] Kalyan Irizarry MD Work Phone: [employer] Work Phone: 07-06-2021 22:37-0400 SaO2% (BldA) [Mass fraction] 97 % Kalyan Irizarry MD Work Phone: [employer] Work Phone: 07-06-2021 14:51-0400 Body mass index (BMI) [Ratio] 47.72 kg/m2 Kalyan Irizarry MD Work Phone: [employer] Work Phone: 07-06-2021 14:51-0400 Body temperature 98.2 [degF] Kalyan Irizarry MD Work Phone: [employer] Work Phone: 07-06-2021 14:51-0400 Body weight 126.1 kg Kalyan Irizarry MD Work Phone: [employer] Work Phone: 07-06-2021 14:51-0400 Respiratory rate 16 /min Kalyan Irizarry MD Work Phone: [facility] Work Phone: 06-17-2021 16:38-0400 Body height 162.56 cm Denny Lomeli CNP Work Phone: [facility] Work Phone: 06-17-2021 16:38-0400 Body mass index (BMI) [Ratio] 49.3 kg/m2 Denny Lmoeli CNP Work Phone: [facility] Work Phone: 06-17-2021 16:38-0400 Body surface area Derived from formula 2.28 m2 Denyn Lomeli CNP Work Phone: [facility] Work Phone: 06-17-2021 16:38-0400 Body temperature 97.4 [degF] Denny Lomeli CNP Work Phone: [facility] Work Phone: 06-17-2021 16:38-0400 Body weight 130.18 kg Denny Lomeli CNP Work Phone: [facility] Work Phone: 06-17-2021 16:38-0400 Diastolic blood pressure 98 mm[Hg] Denny Lomeli CNP Work Phone: [facility] Work Phone: 06-17-2021 16:38-0400 Heart rate 85 /min Denny Lomeli CNP Work Phone: [facility] Work Phone: 06-17-2021 16:38-0400 Respiratory rate 18 /min Denny Lomeli CNP Work Phone: [facility] Work Phone: 06-17-2021 16:38-0400 SaO2% (BldA) [Mass fraction] 97 % Denny Armani CUSTOMER SERVICE ASSISTANT Work Phone: [facility] Work Phone: 06-17-2021 16:38-0400 Systolic blood pressure 144 mm[Hg] Denny Armani CUSTOMER SERVICE ASSISTANT Work Phone: [facility] Work Phone: 05-16-2021 02:36-0400 Diastolic blood pressure 93 mm[Hg] Blanco Montalvo MD Work Phone: [employer] Work Phone: 05-16-2021 02:36-0400 Heart rate 75 /min Blanco Montalvo MD Work Phone: [employer] Work Phone: 05-16-2021 02:36-0400 Respiratory rate 20 /min Blanco Montalvo MD Work Phone: [employer] Work Phone: 05-16-2021 02:36-0400 SaO2% (BldA) [Mass fraction] 100 % Blanco Montalvo MD Work Phone: [employer] Work Phone: 05-16-2021 02:36-0400 Systolic blood pressure 150 mm[Hg] Blanco Montalvo MD Work Phone: [employer] Work Phone: 05-15-2021 20:15-0400 Body temperature 99.1 [degF] Blanco Montalvo MD Work Phone: [employer] Work Phone: 04-23-2021 11:33-0400 Body height 162.56 cm Dennyartem Lomeli CUSTOMER SERVICE ASSISTANT Work Phone: [facility] Work Phone: 04-23-2021 11:33-0400 Body mass index (BMI) [Ratio] 48.9 kg/m2 Denny Lomeli CNP Work Phone: [facility] Work Phone: 04-23-2021 11:33-0400 Body surface area Derived from formula 2.27 m2 Denny Lomeli CNP Work Phone: [facility] Work Phone: 04-23-2021 11:33-0400 Body temperature 98.2 [degF] Denny Lomeli CNP Work Phone: [facility] Work Phone: 04-23-2021 11:33-0400 Body weight 129.28 kg Denny Lomeli CNP Work Phone: [facility] Work Phone: 04-23-2021 11:33-0400 Diastolic blood pressure 86 mm[Hg] Denny Lomeli CNP Work Phone: [facility] Work Phone: 04-23-2021 11:33-0400 Heart rate 101 /min Denny Lomeli CNP Work Phone: [facility] Work Phone: 04-23-2021 11:33-0400 SaO2% (BldA) [Mass fraction] 98 % Denny Lomeli CNP Work Phone: [facility] Work Phone: 04-23-2021 11:33-0400 Systolic blood pressure 124 mm[Hg] Denny Lomeli CNP Work Phone: [facility] Work Phone: 04-09-2021 16:30-0400 Body height 162.6 cm Jm [facility]acem [facility] Work Phone: 04-09-2021 16:30-0400 Body mass index (BMI) [Ratio] 47.2 kg/m2 Jm Andes DO Work Phone: [employer] Work Phone: 04-09-2021 16:30-0400 Body temperature 98.8 [degF] Jm Andes DO Work Phone: [employer] Work Phone: 04-09-2021 16:30-0400 Body weight 124.74 kg Jm Andes DO Work Phone: [employer] Work Phone: 04-09-2021 16:30-0400 Diastolic blood pressure 88 mm[Hg] Jm Andes DO Work Phone: [employer] Work Phone: 04-09-2021 16:30-0400 Heart rate 78 /min Jm Andes DO Work Phone: [employer] Work Phone: 04-09-2021 16:30-0400 Respiratory rate 18 /min Jm Andes DO Work Phone: [employer] Work Phone: 04-09-2021 16:30-0400 SaO2% (BldA) [Mass fraction] 96 % Jm Andes DO Work Phone: [employer] Work Phone: 04-09-2021 16:30-0400 Systolic blood pressure 138 mm[Hg] Jm Andes DO Work Phone: [employer] Work Phone: 04-01-2021 15:53-0400 Body height 162.56 cm Denny Lomeli CNP Work Phone: [facility] Work Phone: 04-01-2021 15:53-0400 Body mass index (BMI) [Ratio] 49.5 kg/m2 Denny Lomeli CNP Work Phone: [facility] Work Phone: 04-01-2021 15:53-0400 Body surface area Derived from formula 2.29 m2 Denny Lomeli CNP Work Phone: [facility] Work Phone: 04-01-2021 15:53-0400 Body temperature 97.6 [degF] Denny Lomeli CNP Work Phone: [facility] Work Phone: 04-01-2021 15:53-0400 Body weight 130.82 kg Denny Lomeli CNP Work Phone: [facility] Work Phone: 04-01-2021 15:53-0400 Diastolic blood pressure 88 mm[Hg] Denny Lomeli CNP Work Phone: [facility] Work Phone: 04-01-2021 15:53-0400 Heart rate 83 /min Denny Lomeli CNP Work Phone: [facility] Work Phone: 04-01-2021 15:53-0400 Respiratory rate 20 /min Denny Lomeli CNP Work Phone: [facility] Work Phone: 04-01-2021 15:53-0400 SaO2% (BldA) [Mass fraction] 98 % Denny Lomeli CNP Work Phone: [facility] Work Phone: 04-01-2021 15:53-0400 Systolic blood pressure 130 mm[Hg] Denny Lomeli CNP Work Phone: [facility] Work Phone: 03-17-2021 15:36-0400 Diastolic blood pressure 108 mm[Hg] Denny Lomeli CUSTOMER SERVICE ASSISTANT Work Phone: [facility] Work Phone: 03-17-2021 15:36-0400 Systolic blood pressure 134 mm[Hg] Denny Lomeli CNP Work Phone: [facility] Work Phone: 03-17-2021 14:05-0400 Body height 162.56 cm Denny Lomeli CNP Work Phone: [facility] Work Phone: 03-17-2021 14:05-0400 Body mass index (BMI) [Ratio] 49.8 kg/m2 Denny Lomeli CNP Work Phone: [facility] Work Phone: 03-17-2021 14:05-0400 Body surface area Derived from formula 2.29 m2 Denny Lomeli CNP Work Phone: [facility] Work Phone: 03-17-2021 14:05-0400 Body temperature 96.4 [degF] Denny Lomeli CNP Work Phone: [facility] Work Phone: 03-17-2021 14:05-0400 Body weight 131.54 kg Denny Lomeli CNP Work Phone: [facility] Work Phone: 03-17-2021 14:05-0400 Diastolic blood pressure 108 mm[Hg] Denny Lomeli CNP Work Phone: [facility] Work Phone: 03-17-2021 14:05-0400 Heart rate 97 /min Denny Lomeli CNP Work Phone: [facility] Work Phone: 03-17-2021 14:05-0400 Respiratory rate 18 /min Denny Armani CUSTOMER SERVICE ASSISTANT Work Phone: [facility] Work Phone: 03-17-2021 14:05-0400 SaO2% (BldA) [Mass fraction] 98 % Denny Lomeli CNP Work Phone: [facility] Work Phone: 03-17-2021 14:05-0400 Systolic blood pressure 150 mm[Hg] Denny Lomeli CNP Work Phone: [facility] Work Phone: Encounters Encounter Date Encounter Type Care Provider Facility Start: 08-12-2024 End: 08-12-2024 ambulatory SHIVANI DONATO Not Available Start: 07-18-2024 End: 07-18-2024 [facility] visit, estab pt Sarai Alberts [employer]ACLE PROGRAMMER Work Phone: [facility] Work Phone: Start: 06-13-2024 End: 06-13-2024 [facility]QHC visit, estab pt Kinga Short LISWS Work Phone: [facility] Work Phone: Start: 06-13-2024 End: 06-13-2024 Encounter for preprocedural laboratory examination Denny Lomeli CNP Work Phone: [facility] Work Phone: Start: 06-13-2024 End: 06-13-2024 [facility] visit, estab pt Denny Lomeli CUSTOMER SERVICE ASSISTANT Work Phone: [facility] Work Phone: Start: 04-10-2024 End: 04-10-2024 [facility]QHC visit, estab pt Kinga Short LISWS Work Phone: [facility] Work Phone: Start: 04-10-2024 End: 04-10-2024 FQHC visit, estab pt Kinga Short LISWS Work Phone: [facility] Work Phone: Start: 02-28-2024 End: 02-29-2024 Emergency department patient visit SANDRAMALINDA Reed [facility] Start: 01-17-2024 End: 01-17-2024 FQHC visit, estab pt Kingakatt RUDOLPH Work Phone: [facility] Work Phone: Start: 01-17-2024 End: 01-17-2024 General Denny Lomeli CUSTOMER SERVICE ASSISTANT Work Phone: [facility] Work Phone: Start: 06-14-2023 End: 06-14-2023 General Boston Mao DDS Work Phone: [facility] Work Phone: Start: 05-31-2023 End: 05-31-2023 General Boston Mao DDS Work Phone: [facility] Work Phone: Start: 05-10-2023 End: 05-10-2023 FQHC visit, estab pt Denny Lomeli CUSTOMER SERVICE ASSISTANT Work Phone: [facility] Work Phone: Start: 05-01-2023 comprehensive oral evaluation - new or established patient Boston Mao DDS Work Phone: [facility] Start: 05-01-2023 End: 05-01-2023 General Dina Ham RDH Work Phone: [facility] Work Phone: Start: 08-13-2022 End: 08-13-2022 ambulatory DENNY LOMELI [facility] Start: 08-12-2022 End: 08-12-2022 Subsequent hospital visit by physician Denny Lomeli [employer] SURVEY WORKER - CUSTOMER SERVICE ASSISTANT Work Phone: [facility] Start: 08-12-2022 End: 08-12-2022 FQHC visit, estab pt Denny Lomeli CUSTOMER SERVICE ASSISTANT Work Phone: [facility] Work Phone: Start: 06-16-2022 End: 06-16-2022 General Belkis Velarde LPCC-S Work Phone: [facility] Work Phone: Start: 06-15-2022 End: 06-15-2022 ambulatory Leah Monique CUSTOMER SERVICE ASSISTANT Work Phone: [facility] Work Phone: Start: 06-15-2022 End: 06-15-2022 General Leah Monique CUSTOMER SERVICE ASSISTANT Work Phone: [facility] Work Phone: Start: 06-08-2022 End: 06-08-2022 FQHC visit, estab pt Belkisdionna Velarde LPCC-S Work Phone: [facility] Work Phone: Start: 05-27-2022 End: 05-27-2022 FQHC visit, estab pt Belkis Velarde LPCC-S Work Phone: [facility] Work Phone: Start: 05-27-2022 End: 05-27-2022 ambulatory Leah Monique CUSTOMER SERVICE ASSISTANT Work Phone: [facility] Work Phone: Start: 05-27-2022 End: 07-15-2021 General Leah Monique CUSTOMER SERVICE ASSISTANT Work Phone: [facility] Work Phone: Start: 07-26-2021 End: 07-27-2021 [facility] Start: 07-26-2021 End: 07-26-2021 Subsequent hospital visit by physician [facility] Reimbursement Manager Rm MTHZ EKG Comment on above: Tachycardia Start: 07-15-2021 End: 07-15-2021 [facility]QHC visit, estab pt Eufemia Mcneil [facility] Work Phone: [facility] Work Phone: Start: 07-15-2021 End: 07-15-2021 FQHC visit, estab pt Eufemia Mcneil [facility] Work Phone: [facility] Work Phone: Start: 07-07-2021 End: 07-10-2021 Evaluation and management of inpatient Maryjo JUAREZ [facility] Start: 07-06-2021 End: 07-07-2021 [facility] Start: 07-06-2021 End: 07-06-2021 Emergency department patient visit Kalyan Irizarry MD Work Phone: [facility] Comment on above: Bipolar 1 disorder ( HCC) (Primary Dx); Homicidal ideation Start: 06-17-2021 End: 06-17-2021 FQ visit, estab pt Kinga RUDOLPH Work Phone: [facility] Work Phone: Start: 05-15-2021 End: 05-16-2021 Emergency department patient visit BLANCO Almaraz [facility] Start: 05-15-2021 End: 05-16-2021 Emergency department patient visit Blanco Montalvo MD Work Phone: [facility] Comment on above: Anxiety state (Prima ry Dx) Start: 04-23-2021 End: 04-23-2021 ambulatory Teagan Gale CNP Work Phone: [facility] Work Phone: Start: 04-23-2021 End: 04-23-2021 General Teagan Gale CNP Work Phone: [facility] Work Phone: Start: 04-23-2021 End: 04-23-2021 FQHC visit, estab pt Kinga Bourgeois LISANTONETTE Work Phone: [facility] Work Phone: Start: 04-23-2021 End: 04-23-2021 FQHC visit, estab pt Kinga Bourgeois LISWS Work Phone: [facility] Work Phone: Start: 04-09-2021 End: 04-10-2021 Emergency department patient visit [facility] Start: 04-09-2021 End: 04-10-2021 Emergency department patient visit [facility] DO Work Phone: [facility] Comment on above: Depression with suic idal ideation (Primary Dx) Start: 04-01-2021 End: 04-01-2021 FQHC visit, estab pt Kinga Bourgeois LISANTONETTE Work Phone: [facility] Work Phone: Start: 04-01-2021 End: 04-01-2021 FQHC visit, estab pt Kinga Short LISWS Work Phone: [facility] Work Phone: Start: 03-17-2021 End: 03-17-2021 FQHC visit, estab pt Kinga Short LISWS Work Phone: [facility] Work Phone: Start: 03-17-2021 End: 03-17-2021 FQHC visit new patient Denny Lomeli CUSTOMER SERVICE ASSISTANT Work Phone: [facility] Work Phone: Start: 06-06-2020 End: 06-06-2020 Patient encounter procedure ADDIS BARBER Facility: Start: 06-12-2017 End: 06-12-2017 Emergency department patient visit MD RIZWAN LÓPEZ Facility:[facility] Procedures Date Procedure Procedure Detail Performing Clinician Start: 09-26-2024 Application of silve r diamine fluoride by physician Denny Lomeli CNP Work Phone: Start: 07-18-2024 Behav assmt w/score & docd/stand instrument Sarai Alberts [employer]ACLE PROGRAMMER Work Phone: Start: 07-18-2024 Eye img vld [...] minutes Kinga Short LISWS Work Phone: Start: 04-10-2024 Behav assmt w/score [...] resin-based composit e - one surface, posterior Bretteen Mayco DDS Work Phone: Start: 05-10-2023 Hemoglobin glycosyla stephanie a1c Denny Lomeli [facility] Work Phone: Start: 05-10-2023 Most recent diastoli c blood pressure < 80 mm hg Denny Lomeli [facility] Work Phone: Start: 05-10-2023 Most recent hemoglob in a1c level < 7.0% Denny Lomeli [facility] Work Phone: Start: 05-10-2023 Most recent systolic blood pressure <130 mm hg Denny Lomeli [facility] Work Phone: Start: 05-01-2023 caries risk assessme nt and documentation, with a finding of high risk iDna Ham [facility] Work Phone: Start: 05-01-2023 intraoral - complete series of radiographic images Dina Ham [facility] Work Phone: Start: 05-01-2023 panoramic radiograph ic image Dina Ham RD Work Phone: Start: 05-01-2023 prophylaxis - adult Ernie Ham RD Work Phone: Start: 08-12-2022 Most recent diastoli c blood pressure 80-89 mm hg Denny Lomeli [facility] Work Phone: Start: 08-12-2022 Most recent systolic blood pressure <130 mm hg Denny Lomeli [facility] Work Phone: Start: 06-16-2022 Psychotherapy w/blaze ent 30 minutes Belkis Velarde [facility] Work Phone: Start: 06-15-2022 Most recent diastoli c blood pressure 80-89 mm hg Leah Amaya CUSTOMER SERVICE ASSISTANT Work Phone: Start: 06-15-2022 Most recent systolic blood pressure <130 mm hg Leah Monique CUSTOMER SERVICE ASSISTANT Work Phone: Start: 06-15-2022 Psychotherapy w/blaze ent 30 minutes Belkis Velarde LP[facility]-S Work Phone: Start: 06-08-2022 Most recent diastol blood pres >/equal 90 mm hg Denny Lomeli CNP Work Phone: Start: 06-08-2022 Most recent systolic blood pressure <130 mm hg Denny Lomeli CNP Work Phone: Start: 06-08-2022 Psychotherapy w/blaze ent 30 minutes Belkis Velarde LPCC-S Work Phone: Start: 05-27-2022 Hemoglobin glycosyla stephanie a1c Leah Amaya CUSTOMER SERVICE ASSISTANT Work Phone: Start: 05-27-2022 Most recent diastol blood pres >/equal 90 mm hg Leah Amaya CUSTOMER SERVICE ASSISTANT Work Phone: Start: 05-27-2022 Most recent hemoglob in a1c level < 7.0% Leah Amaya CUSTOMER SERVICE ASSISTANT Work Phone: Start: 05-27-2022 Most recent systolic blood pres>/equal 140 mm hg Leah Amaya CNP Work Phone: Start: 05-27-2022 Psychotherapy w/blaze ent 30 minutes Belkis Velarde LPCC-S Work Phone: Start: 07-15-2021 Antibody hiv-1&hiv-2 single result Denny Lomeli CNP Work Phone: Start: 07-15-2021 Most recent diastoli c blood pressure 80-89 mm hg Denny Lomeli CNP Work Phone: Start: 07-15-2021 Most recent systolic blood press 130-139mm hg Denny Lomeli CNP Work Phone: Start: 07-15-2021 Psychotherapy w/blaze ent 30 minutes Eufemia Mcneil LPCC-S Work Phone: Start: 07-15-2021 Pt scrnd tobacco use rcvd tobacco cessation talk Denny Lomeli CNP Work Phone: Start: 07-06-2021 COVID-19, RAPID Kalyan [...] pressure < 80 mm hg Denny Lomeli [facility] Work Phone: Start: 06-17-2021 Most recent systolic blood pressure <130 mm hg Denny Lomeli [facility] Work Phone: Start: 06-17-2021 Psychotherapy w/blaze ent [...] Phone: Start: 05-15-2021 Drug screen class list a Blanco Montalvo MD Work Phone: Start: 05-15-2021 Urinalysis microscop ic only Blanco Montalvo MD Work Phone: Start: 05-15-2021 Urnls dip stick/tabl et rgnt auto w/o microscopy Blanco Montalvo MD Work Phone: Start: 04-23-2021 Most recent diastoli c blood pressure 80-89 mm hg Denny Armani CUSTOMER SERVICE ASSISTANT Work Phone: Start: 04-23-2021 Most recent systolic blood pressure <130 mm hg Denny Armani CUSTOMER SERVICE ASSISTANT Work Phone: Start: 04-23-2021 Psychotherapy w/blaze ent [...] blood pressure 80-89 mm hg Denny Lomeli CUSTOMER SERVICE ASSISTANT Work Phone: Start: 04-01-2021 Most recent systolic blood pressure <130 mm hg Denny Lomeli CUSTOMER SERVICE ASSISTANT Work Phone: Start: 04-01-2021 Psychotherapy w/blaze ent 30 minutes Kinga Short LISWS Work Phone: Start: 03-17-2021 Ear Pressure Equaliz ation Tube, Insertion, Bilaterally Denny Lomeli CUSTOMER SERVICE ASSISTANT Work Phone: Start: 03-17-2021 Most recent diastol blood pres >/equal 90 mm hg Denny Lomeli CUSTOMER SERVICE ASSISTANT Work Phone: Start: 03-17-2021 Most recent systolic blood pres>/equal 140 mm hg Denny Lomeli CUSTOMER SERVICE ASSISTANT Work Phone: Start: 03-17-2021 Pt-focused hlth risk assmt score doc stnd instrm Denny Lomeli CUSTOMER SERVICE ASSISTANT Work Phone: Start: 03-17-2021 Tonsillectomy Dennyartem alexandra CUSTOMER SERVICE ASSISTANT Work Phone: Plan of Treatment Date Care Activity Detail Author Start: 08-15-2024 FQHC visit, estab pt Medical E stablished Patient [facility] Work Phone: Start: 08-03-2024 CBC W Auto Different ial panel - Blood [facility] Start: 07-18-2024 FQHC visit, estab pt Medical E stablished Patient [facility] Work Phone: Start: 07-18-2024 End: 07-18-2024 Patient education based on identified need [facility] Start: 07-13-2024 US Transvaginal ([id number]) [facility] Start: 06-13-2024 End: 06-13-2024 Patient education based on identified need [facility] Start: 06-13-2024 FQHC visit, estab pt Medical E stablished Patient [facility] Work Phone: Start: 06-13-2024 End: 06-13-2024 Patient education based on identified need [facility] Start: 04-15-2024 Ferritin [Mass/volum e] in Serum or Plasma [facility] Start: 04-10-2024 End: 04-10-2024 Patient education based on identified need [facility] Start: 03-21-2024 FQHC visit, estab pt Medical E stablished Patient [facility] Work Phone: Start: 02-16-[address] [id number]-Odi [facility] Start: 01-17-2024 End: 01-17-2024 Patient education based on identified need [facility] Start: 05-10-2023 End: 05-10-2023 Patient education based on identified need [facility] Start: 05-10-2023 Psychiatry [facility] Work Phone: Comment on above: Note: Please make a referral to: see if dr carney accepting now, otherwise ok with rd or get Start: 12-13-2022 FQHC visit, estab pt Medical E stablished Patient [facility] Work Phone: Start: 08-12-2022 End: 08-12-2022 Patient education based on identified need [facility] Start: 07-08-20[address] [id number] [facility] Start: 07-07-2022 FQHC visit, estab pt Medical E stablished Patient [facility] Work Phone: Start: 06-16-2022 End: 06-16-2022 Patient education based on identified need [facility] offered active listening and supportive feedback; normalized emotions and feelings, also provided pt time to process any current stressors. ~Promoted and encouraged follow-through with scheduling psychiatric services [facility] Start: 06-15-2022 End: 06-15-2022 Patient education based on identified need [facility] Start: 06-13-2022 [facility] Start: 06-08-2022 FQHC visit, estab pt Ti debbie [facility] Work Phone: Comment on above: Note: Please make a referral to: request dr carney Start: 06-08-2022 End: 06-08-2022 Patient education based on identified need [facility] Start: 05-27-2022 End: 05-27-2022 Patient education based on identified need [facility] ~[facility] offered active listening and supportive feedback; normalized emotions and feelings, also provided pt time to process any current stressors ~P discussed potential benefits of counseling and supported re-engaging, as needed. ~[facility] encouraged pt to continue to make time to implement self-care regimen and use coping methods, as needed [facility] Start: 05-27-2022 CBC W Auto Different ial panel - Blood [facility] Start: 05-27-2022 Lipid 1996 panel - S mica or Plasma LIPID PROFILE [facility] Start: 05-27-2022 End: 05-27-2022 Patient education based on identified need [facility] Start: 05-23-2022 Influenza vaccination Flu vaccine (# 1) [facility] Start: 08-24-2021 COVID-19 Vaccine (3 - Booster for Pfizer series) COVID-19 Vaccine (3 - Booster for Pfizer series) [facility] Start: 08-14-2021 [facility] Start: 07-19-2021 FQ visit, estab pt Medical E stablished Patient [facility] Work Phone: Start: 07-15-2021 [facility] [facility] Work Phone: Comment on above: Note: Please make a referral to: [facility] [place] - [address] [address]ZY: [phone]: [phone] Note: Please make a referral to: Elham flores , no longer wants to see derrell Start: 07-15-2021 End: 07-15-2021 Patient education based on identified need [facility] Start: 06-23-2021 Influenza vaccination [facility] Work Phone: Start: 06-17-2021 End: 06-17-2021 Patient education based on identified need [facility] Start: 04-30-2021 SARS-CoV-2, [facility] Start: 04-23-2021 End: 04-23-2021 Patient education based on identified need [facility] Start: 04-01-2021 End: 04-01-2021 Patient education based on identified need [facility] Start: 03-17-2021 End: 03-17-2021 Patient education based on identified need [facility] Start: 06-24-2020 DTaP/Tdap/Td vaccine (7 - Td or Tdap) DTaP/Tdap/Td vaccine (7 - Td or Tdap) [facility] Start: 2020 Screening for malign ant neoplasm of cervix [facility] Start: 2018 DTaP/Tdap/Td vaccine (1 - Tdap) DTaP/Tdap/Td vaccine (1 - Tdap) [facility] Work Phone: Start: 2017 Hepatitis C screening Hepatitis C sc reen [facility] Start: 2015 Screening for Chlamy solitario trachomatis [facility] Start: 2014 HIV screening HIV screen [facility] Work Phone: Start: 2011 COVID-19 Vaccine (1) COVID-19 Vaccin e (1) [facility] Work Phone: Start: 2011 Depression Monitoring Depression [facility] Start: 2010 HPV vaccine (1 - 2-d ose series) HPV vaccine (1 - 2-dose series) [facility] Start: 2000 Varicella vaccine (1 of 2 - 2-dose childhood series) Varicella vaccine (1 of 2 - 2-dose childhood series) [facility] Start: 1999 Hepatitis C screening Hepatitis C sc reen [facility] Work Phone: End: 08-12-2022 C.trachomatis N.gonorrhoeae DNA, Urine [facility] [employer] Work Phone: Comment on above: Once for 1 Occurrenc es starting 08/12/2022 until 08/12/2022 EKG 12 Lead EKG 12 Lead ECG STAT 07/06/2021 3:18 PM EDT [employer] Work Phone: End: 08-12-2022 Trichomonas Vaginali, Molecular [facility] [employer] Work Phone: Comment on above: Once for 1 Occurrenc es starting 08/12/2022 until 08/12/2022 Immunizations Immunization Date Immunization Notes Care Provider Jennifer alejo 07-18-2024 influenza, injectabl e, quadrivalent, preservative free; Translations: [Fluarix] Denny Lomeli [facility] Work Phone: [facility] Comment on above: Note: Patient tolera stephanie well. No signs or symptoms of adverse reactions. Patient waited a minimum of 15 minutes. 07-18-2024 Imm.Admin. over 18 y rs Any Route FIRST Injection (Rendering physician modifier) Denny Lomeli [facility] Work Phone: [facility] 06-13-2024 Human Papillomavirus 9-valent vaccine; Translations: [GARDASIL 9] Denny Lomeli [facility] Work Phone: [facility] 06-13-2024 pneumococcal vaccine , unspecified formulation Denny Lomeli CUSTOMER SERVICE ASSISTANT Work Phone: [facility] Comment on above: Note: Patient tolera stephanie well. No signs or symptoms of adverse reactions. Patient waited a minimum of 15 minutes. 06-13-2024 Imm.Admin.Through 18 yrs Any Route FIRST Injection Denny Lomeli CNP Work Phone: [facility] 06-13-2024 Ea.Addnl.Imm.Admin.T hroug h 17 yrs Any Route Denny Lomeli CNP Work Phone: [facility] 06-13-2024 VFC Imm. Admin. thro ugh 17 yrs Any Route per VFC Injection (Signi/Sep Eval. & Man.) Denny Lomeli [facility] Work Phone: [facility] 08-12-2022 influenza, injectabl e, quadrivalent, preservative free; Translations: [Fluarix] Denny Lomeli [facility] Work Phone: [facility] Comment on above: Note: Patient tolera stephanie well. No signs or symptoms of adverse reactions. Patient waited a minimum of 15 minutes. 08-12-2022 Imm.Admin. over 18 y rs Any Route FIRST Injection Denny Lomeli [facility] Work Phone: [facility] 06-29-2021 1st Dose PFIZER COVI D-19 Vaccine Denny Lomeli [facility] Work Phone: [facility] 06-08-2021 1st Dose PFIZER COVI D-19 Vaccine Denny Lomeli [facility] Work Phone: [facility] 06-29-2016 meningococcal oligosaccharide (groups A, C, Y and W-135) diphtheria toxoid conjugate vaccine (MCV4O) Denny Lomeli [facility] Work Phone: [facility] 06-24-2010 tetanus toxoid, redu messi diphtheria toxoid, and acellular pertussis vaccine, adsorbed Denny Lomeli [facility] Work Phone: [facility] 06-18-2004 measles, mumps and rubella virus vaccine Denny Lomeli [facility] Work Phone: [facility] 06-18-2004 poliovirus vaccine, inactivated Denny Lomeli [facility] Work Phone: [facility] 03-13-2000 measles, mumps and rubella virus vaccine Denny Lomeli [facility] Work Phone: [facility] 03-13-2000 poliovirus vaccine, inactivated Denny Lomeli [facility] Work Phone: [facility] 1999 haemophilus influenz ae type b conjugate and Hepatitis B vaccine Denny Lomeli [facility] Work Phone: [facility] 1999 poliovirus vaccine, inactivated Denny Armani CUSTOMER SERVICE ASSISTANT Work Phone: [facility] 1999 diphtheria, tetanus toxoids and pertussis vaccine Denny Lomeli CNP Work Phone: [facility] 1999 trivalent poliovirus vaccine, live, oral Denny Lomeli CNP Work Phone: [facility] 1999 hepatitis B vaccine, pediatric or pediatric/adolescent dosage Denny Lomeli CNP Work Phone: [facility] 1999 hepatitis B vaccine, pediatric or pediatric/adolescent dosage Denny Lomeli CNP Work Phone: [facility] Payers Date Payer Category Payer Unknown [id number] 1999 Unknown [id number] 2.16.84 [id number] 1999 Unknown [id number] 2.16.8 [id number] 1999 Unknown [id number] 2.16.8 [id number] 1999 Unknown [id number] 2.16.8 [id number] 1999 Unknown [id number] 2.16.8 [id number] 1999 Unknown [id number] 2.16.8 [id number] 1999 Unknown [id number] [id number] 1999 Unknown [id number] 2.16.8 [id number] 1999 Unknown [id number] 2.16.8 [id number] 1999 Unknown [id number] 2.16.84 [id number] 1959 Private Health Insurance [id number] Unknown [id number] Social History Date Type Detail Facility Assertion Family problems (finding) [facility] Problem situatio n relating to social and personal history (finding) [facility] Emotional stress (finding) [facility] Lives with paren ts (finding) [facility] Social drinker (finding) [facility] Assertion Benzodiazepine m isuse (finding) [facility] Sexually active (finding) [facility] Gender identity finding (finding) [facility] Finding of sexua l orientation (finding) [facility] Tobacco smoking status Unknown if ever smoked [facility] Work Phone: Start: 08-09-2017 End: 04-09-2021 Tobacco smoking status NHIS Never smoker [facility] Phone: Start: 08-09-2017 End: 04-09-2021 Tobacco use and exposure Never used [employer] Start: 04-09-2021 End: 07-09-2021 Alcohol intake Ex-drinker (finding) [facility] Phone: Start: 04-09-2021 History SDOH Alcohol Frequency 1 [facility] Phone: Start: 1999 Sex Assigned At Not on file [facility] Phone: Exposure to SARS-CoV-2 (event) Not sure Roovyn Smoking monitori ng status (finding) [facility] Work Phone: Assertion Cigarette smoker (finding) [facility] Light cigarette smoker (1-9 cigs/day) (finding) [facility] Exposure to poll ution (event) [facility] Smoker (finding) [facility] Finding relating to sexual activity (finding) [facility] Assertion Homosexual behav ior (finding) [facility] Assertion Currently not se xually active (finding) [facility] Assertion Details of drug misuse behavior (observable entity) [facility] Assertion History of disor kyree (situation) [facility] NEGATED: Highlighted row Assertion Current drinker of alcohol (finding) [facility] NEGATED: Highlighted row Assertion Finding relating to drug misuse behavior (finding) [facility] NEGATED: Highlighted row Assertion [facility] NEGATED: Highlighted row Assertion Exposure to pollution (event) [facility] Medical Equipment Procedure Code Equipment Code Equipment Origin al Text Equipment Identifier Dates Blood Glucose Te st In Vitro Strip [id number] Start: 06-13-2024 End: 07-01-2024 CareS[employer] Lancets Miscellaneous [id number] Start: 06-13-2024 OneTouch Ultra I n Vitro Strip [id number] Start: 07-01-2024 End: 06-26-2025 Mental Status Date Assessment Result Facility 10-23-2019 Cognitive function A previous dhillon icide attempt 2019 with hospitalization at [address] [place] [address] Work Phone: Cognitive function Cognitive fun ctioning was normal Cognitive function finding (finding) [facility] Work Phone: Clinical Notes 03-17-2021 to 07-29-2024 Note Date & Type Note Facility 07-29-2024 Evaluation note Includes: Assessments for all patient encounters Findings [D50.9 - Iron deficiency ane eduardo, unspecified] iron deficiency anemia Chart Update with Denny Lomeli CNP 07/29/2024 Last Documented On 4 2:06PM ; [facility] Attention-deficit hyperactivity disorder Established Patient with Saraifiliberto Alberts [facility] 07/18/2024 Last Documented On 4 4:15PM ; [facility] Bipolar I disorder, most rec ent episode, depressed - mild Established Patient with Saraifiliberto Alberts [facility] 07/18/2024 Last Documented On 4 4:15PM ; [facility] Nicotine dependence Established Patient with Saraifiliberto Alberts [facility] 07/18/2024 Last Documented On 4 4:15PM ; [facility] Post-traumatic stress disorder Establ ished Patient with Sarai Alberts [employer] 07/18/2024 Last Documented On 4 4:15PM ; [facility] [Z68.43 - Body mass index [B PA] 50.0-59.9, adult] assessment of body mass index Medical Established Patient with Dennyartem Landonen CUSTOMER SERVICE ASSISTANT 07/18/2024 Last Documented On 4 2:09PM ; [facility] Bipolar I disorder, most rec ent episode, depressed - mild Medical Established Patient with Denny Armani CUSTOMER SERVICE ASSISTANT 07/18/2024 Last Documented On 4 2:09PM ; [facility] Caries Medical Established Patient with Denny Armani CUSTOMER SERVICE ASSISTANT 07/18/2024 Last Documented On 4 2:09PM ; [facility] Encounter for Immunization Medical Estab lished Patient with Denny Armani CUSTOMER SERVICE ASSISTANT 07/18/2024 Last Documented On 4 2:09PM ; [facility] Type 2 diabetes mellitus wit hout complication Medical Established Patient with Denny Armani CUSTOMER SERVICE ASSISTANT 07/18/2024 Last Documented On 4 2:09PM ; [facility] Attention-deficit hyperactivity disorder Established Patient with Kinga Short [facility] 06/13/2024 Last Documented On 4 3:28PM ; [facility] Bipolar I disorder, most rec ent episode, depressed - mild Established Patient with Kinga Short LISWS 06/13/2024 Last Documented On 4 3:28PM ; [facility] Post-traumatic stress disorder Establ ished Patient with Kinga Short LISWS 06/13/2024 Last Documented On 4 3:28PM ; [facility] [E11.9 - Type 2 diabetes gloria litus without complications] type 2 diabetes mellitus Medical Established Patient with Denny Armani CUSTOMER SERVICE ASSISTANT 06/13/2024 Last Documented On 4 7:36PM ; [facility] [F41.1 - Generalized anxiety disorder] generalized anxiety disorder Medical Established Patient with Denny Armani CUSTOMER SERVICE ASSISTANT 06/13/2024 Last Documented On 4 7:36PM ; [facility] [I10 - Essential (primary) hypertension] essential hypertension Medical Established Patient with Denny Lomeli CUSTOMER SERVICE ASSISTANT 06/13/2024 Last Documented On 4 7:36PM ; [facility] [N94.6 - Dysmenorrhea, unspe cified] dysmenorrhea Medical Established Patient with Denny Lomeli CUSTOMER SERVICE ASSISTANT 06/13/2024 Last Documented On 4 7:36PM ; [facility] [Z68.43 - Body mass index [B PA] 50.0-59.9, adult] assessment of body mass index Medical Established Patient with Denny Lomeli CUSTOMER SERVICE ASSISTANT 06/13/2024 Last Documented On 4 7:36PM ; [facility] Encounter for Immunization Medical Estab lished Patient with Denny Lomeli CUSTOMER SERVICE ASSISTANT 06/13/2024 Last Documented On 4 7:36PM ; [facility] Venipuncture was performed Medical Estab lished Patient with Denny Lomeli CUSTOMER SERVICE ASSISTANT 06/13/2024 Last Documented On 4 7:36PM ; [facility] Attention-deficit hyperactivity disorder Established Patient with Kinga Short [facility] 04/10/2024 Last Documented On 4 10:10AM ; [facility] Bipolar I disorder, most rec ent episode, depressed - mild Established Patient with Kinga Short LISWS 04/10/2024 Last Documented On 4 10:10AM ; [facility] Post-traumatic stress disorder BH Establ ished Patient with Kinga Short LISWS 04/10/2024 Last Documented On 4 10:10AM ; [facility] [D64.9 - Anemia, unspecified] anemia Med ical Established Patient with Denny Lomeli CUSTOMER SERVICE ASSISTANT 04/10/2024 Last Documented On 4 6:51PM ; [facility] [Z68.43 - Body mass index [B PA] 50.0-59.9, adult] assessment of body mass index Medical Established Patient with Denny Lomeli CUSTOMER SERVICE ASSISTANT 04/10/2024 Last Documented On 4 6:51PM ; [facility] Bipolar affective disorder, current episode depressed, mild Established Patient with Kinga Short LISWS 01/17/2024 Last Documented On 4 5:16PM ; [facility] Post-traumatic stress disorder BH Establ ished Patient with Kinga Short LISWS 01/17/2024 Last Documented On 4 5:16PM ; [facility] Undifferentiated attention d eficit disorder BH Established Patient with Kinga Short LISWS 01/17/2024 Last Documented On 4 5:16PM ; [facility] Visit for: screening for disorder BH Est ablished Patient with Kinga Short LISWS 01/17/2024 Last Documented On 4 5:16PM ; [facility] [Z68.43 - Body mass index [B PA] 50.0-59.9, adult] assessment of body mass index Medical Established Patient with Denny Lomeli CUSTOMER SERVICE ASSISTANT 01/17/2024 Last Documented On 4 7:50PM ; [facility] Attention-deficit hyperactivity disorder Medical Established Patient with Denny Lomeli CUSTOMER SERVICE ASSISTANT 01/17/2024 Last Documented On 4 7:50PM ; [facility] Diabetes Risk Test Score was three score 01/17/2024 Medical Established Patient with Denny Lomeli CUSTOMER SERVICE ASSISTANT 01/17/2024 Last Documented On 4 7:50PM ; [facility] Visit for: screening for STD Medical Est ablished Patient with Denny Lomeli CUSTOMER SERVICE ASSISTANT 01/17/2024 Last Documented On 4 7:50PM ; [facility] [Z68.32 - Body mass index [B PA] 32.0-32.9, adult] assessment of body mass index Medical Established Patient with Denny Lomeli CUSTOMER SERVICE ASSISTANT 05/10/2023 Last Documented On 3 6:01PM ; [facility] Borderline personality disorder Medical Established Patient with Dennyartem Landonen CUSTOMER SERVICE ASSISTANT 05/10/2023 Last Documented On 3 6:01PM ; [facility] Screening for diabetes mellitus Medical Established Patient with Dennyartem Landonen CUSTOMER SERVICE ASSISTANT 05/10/2023 Last Documented On 3 6:01PM ; [facility] Assessment of body mass index Medical Es tablished Patient with Denny Lomeli CUSTOMER SERVICE ASSISTANT 08/12/2022 Last Documented On 2 2:45PM ; [facility] Bipolar affective disorder, current episode manic [facility] with Belkisdionna Velarde LPCC-S 06/16/2022 Last Documented On 2 3:22PM ; [facility] Bipolar affective disorder, current episode manic Established Patient with Belkis Velarde LPCC-S 06/15/2022 Last Documented On 2 2:28PM ; [facility] Bipolar affective disorder, current episode depressed, severe with psychosis [facility] with Belkisdionna Velarde LPCC-S 06/15/2022 Last Documented On 2 3:29PM ; [facility] Assessment of body mass inde x [Body mass index [BMI] 50.0-59.9, adult] Open Access - Established with Leah Monique CUSTOMER SERVICE ASSISTANT 06/15/2022 Last Documented On 2 9:36AM ; [facility] Bipolar I disorder, most rec ent episode, manic Open Access - Established with Leah Monique CUSTOMER SERVICE ASSISTANT 06/15/2022 Last Documented On 2 9:36AM ; [facility] Post-traumatic stress disorder Establ ished Patient with Belkisdionna Velarde LPCC-S 06/08/2022 Last Documented On 2 3:20PM ; [facility] No cough Medical Established Patient with Denny Armani CUSTOMER SERVICE ASSISTANT 06/08/2022 Last Documented On 2 4:04PM ; [facility] Z68.43 - Body mass index [BM I] 50.0-59.9, adult Medical Established Patient with Denny Armani CUSTOMER SERVICE ASSISTANT 06/08/2022 Last Documented On 2 4:04PM ; [facility] Borderline personality disor kyree Pt reported hx of sx/dx Established Patient with Belkisdionna CoffeyVelarde LPCC-S 05/27/2022 Last Documented On 2 4:08PM ; [facility] Assessment of body mass inde x [Body mass index [BMI] 50.0-59.9, adult] Open Access - Established with Leah Monique CUSTOMER SERVICE ASSISTANT 05/27/2022 Last Documented On 2 7:41PM ; [facility] Diabetes Risk Test Score was three score 05/27/2022 Open Access - Established with Leah Monique CUSTOMER SERVICE ASSISTANT 05/27/2022 Last Documented On 2 7:41PM ; [facility] Bipolar I disorder, most rec ent episode, manic Established Patient with Eufemia Mcneil LPCC-S 07/15/2021 Last Documented On 1 1:35AM ; [facility] Borderline personality disorder Estab lished Patient with Eufemia Mcneil LPCC-S 07/15/2021 Last Documented On 1 1:35AM ; [facility] Post-traumatic stress disorder Establ ished Patient with Eufemia Mcneil LPCC-S 07/15/2021 Last Documented On 1 1:35AM ; [facility] Assessment of visit for: lloyd mcgillning for human immunodeficiency virus Medical Established Patient with Denny Armani CUSTOMER SERVICE ASSISTANT 07/15/2021 Last Documented On 1 2:56PM ; [facility] Nicotine dependence Medical Established Patient with Denny Armani CUSTOMER SERVICE ASSISTANT 07/15/2021 Last Documented On 1 2:56PM ; [facility] Medical Established Patient with Denny Armani CUSTOMER SERVICE ASSISTANT 07/15/2021 Last Documented On 1 2:56PM ; [facility] Z68.43 - Body mass index [BM I] 50.0-59.9, adult Medical Established Patient with Denny Armani CUSTOMER SERVICE ASSISTANT 07/15/2021 Last Documented On 1 2:56PM ; [facility] Bipolar I disorder, most rec ent episode, manic Established Patient with Kinga Short LISWS 06/17/2021 Last Documented On 1 10:17AM ; [facility] Borderline personality disor kyree per patient reported history BH Established Patient with Kinga Short LISWS 06/17/2021 Last Documented On 1 10:17AM ; [facility] Nicotine dependence Established Patient with Kinga Short LISWS 06/17/2021 Last Documented On 1 10:17AM ; [facility] Post-traumatic stress disorder Establ ished Patient with Kinga Short LISWS 06/17/2021 Last Documented On 1 10:17AM ; [facility] Body mass index Medical Established Patient with Dennyartem Landonen CUSTOMER SERVICE ASSISTANT 06/17/2021 Last Documented On 1 5:23PM ; [facility] Morbid obesity Medical Established Patient with Denny Armani CUSTOMER SERVICE ASSISTANT 06/17/2021 Last Documented On 1 5:23PM ; [facility] Nicotine dependence uncomplicated Medica l Established Patient with Denny Armani CUSTOMER SERVICE ASSISTANT 06/17/2021 Last Documented On 1 5:23PM ; [facility] Z68.42 - Body mass index [BM I] 45.0-49.9, adult Medical Established Patient with Denny Armani CUSTOMER SERVICE ASSISTANT 06/17/2021 Last Documented On 1 5:23PM ; [facility] 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 disorders [place] with Teagan zuniga CUSTOMER SERVICE ASSISTANT 05/15/2021 Last Documented On 1 7:49AM ; [facility] Mood disorders, NOS per blaze ent reported history Established Patient with Kinga Short LISWS 04/23/2021 Last Documented On 1 7:15PM ; [facility] Post-traumatic stress disorder Establ ished Patient with Kinga Short LISWS 04/23/2021 Last Documented On 1 7:15PM ; [facility] Morbid obesity Medical Established Patient with Denny Armani CUSTOMER SERVICE ASSISTANT 04/23/2021 Last Documented On 1 12:31PM ; [facility] Otitis externa Medical Established Patient with Denny Armani CUSTOMER SERVICE ASSISTANT 04/23/2021 Last Documented On 1 12:31PM ; [facility] Z68.42 - Body mass index [BM I] 45.0-49.9, adult Medical Established Patient with Denny Armani CUSTOMER SERVICE ASSISTANT 04/23/2021 Last Documented On 1 12:31PM ; [facility] Post-traumatic stress disorder Establ ished Patient with Kinga Short LISWS 04/01/2021 Last Documented On 1 10:05PM ; [facility] Morbid obesity Medical Established Patient with Denny Lomeli CUSTOMER SERVICE ASSISTANT 04/01/2021 Last Documented On 1 4:45PM ; [facility] Z68.42 - Body mass index [BM I] 45.0-49.9, adult Medical Established Patient with Dennyartem Lomeli CUSTOMER SERVICE ASSISTANT 04/01/2021 Last Documented On 1 4:45PM ; [facility] Post-traumatic stress disorder Establ ished Patient with Kinga Short LISWS 03/17/2021 Last Documented On 1 11:59AM ; [facility] Assessment of visit for: lloyd strange for human immunodeficiency virus Medical New Patient with Denny Lomeli CUSTOMER SERVICE ASSISTANT 03/17/2021 Last Documented On 1 4:06PM ; [facility] Diabetes Risk Test Score was one score 03/17/2021 Medical New Patient with Denny Lomeli CUSTOMER SERVICE ASSISTANT 03/17/2021 Last Documented On 1 4:06PM ; [facility] Hypertension Medical New Patient with Denny Maryjo doherty CUSTOMER SERVICE ASSISTANT 03/17/2021 Last Documented On 1 4:06PM ; [facility] Morbid obesity Medical New Patient with Denny C chas CUSTOMER SERVICE ASSISTANT 03/17/2021 Last Documented On 1 4:06PM ; [facility] Post-traumatic stress disorder Medical New Patie nt with Dennyartem Lomeli CUSTOMER SERVICE ASSISTANT 03/17/2021 Last Documented On 1 4:06PM ; [facility] Z68.42 - Body mass index [BM I] 45.0-49.9, adult Medical New Patient with Dennyartem Lomeli CUSTOMER SERVICE ASSISTANT 03/17/2021 Last Documented On 1 4:06PM ; [facility] Work Phone: [phone]) 742-265610-07-2024 Evaluation note Includes: Assessments for all patient encounters Findings Encounter Date [D50.9 - Iron deficiency ane eduardo, unspecified] iron deficiency anemia Chart Update with Denny Lomeli CUSTOMER SERVICE ASSISTANT 07/29/2024 Last Documented On 4 2:06PM ; [facility] Attention-deficit hyperactivity disorder BH Established Patient with Sarai Alberts ORACLE PROGRAMMER 07/18/2024 Last Documented On 4 4:15PM ; [facility] Bipolar I disorder, most rec ent episode, depressed - mild BH Established Patient with Sarai Alberts ORACLE PROGRAMMER 07/18/2024 Last Documented On 4 4:15PM ; [facility] Nicotine dependence Established Patient with Saraifiliberto Alberts ORACLE PROGRAMMER 07/18/2024 Last Documented On 4 4:15PM ; [facility] Post-traumatic stress disorder Establ ished Patient with Sarai Alberts ORACLE PROGRAMMER 07/18/2024 Last Documented On 4 4:15PM ; [facility] [Z68.43 - Body mass index [B PA] 50.0-59.9, adult] assessment of body mass index Medical Established Patient with Denny Lomeli CUSTOMER SERVICE ASSISTANT 07/18/2024 Last Documented On 4 1:56PM ; [facility] Bipolar I disorder, most rec ent episode, depressed - mild Medical Established Patient with Denny Lomeli CUSTOMER SERVICE ASSISTANT 07/18/2024 Last Documented On 4 1:56PM ; [facility] Caries Medical Established Patient with Denny Armani CUSTOMER SERVICE ASSISTANT 07/18/2024 Last Documented On 4 1:56PM ; [facility] Encounter for Immunization Medical Estab lished Patient with Denny Lomeli CUSTOMER SERVICE ASSISTANT 07/18/2024 Last Documented On 4 1:56PM ; [facility] Type 2 diabetes mellitus wit hout complication Medical Established Patient with Denny Landonen CUSTOMER SERVICE ASSISTANT 07/18/2024 Last Documented On 4 1:56PM ; [facility] Attention-deficit hyperactivity disorder Established Patient with Kinga Short LISWS 06/13/2024 Last Documented On 4 3:28PM ; [facility] Bipolar I disorder, most rec ent episode, depressed - mild BH Established Patient with Kinga Short LISWS 06/13/2024 Last Documented On 4 3:28PM ; [facility] Post-traumatic stress disorder Establ ished Patient with Kinga Short LISWS 06/13/2024 Last Documented On 4 3:28PM ; [facility] [E11.9 - Type 2 diabetes golria litus without complications] type 2 diabetes mellitus Medical Established Patient with Denny Lomeli CUSTOMER SERVICE ASSISTANT 06/13/2024 Last Documented On 4 7:36PM ; [facility] [F41.1 - Generalized anxiety disorder] generalized anxiety disorder Medical Established Patient with Denny Lomeli CUSTOMER SERVICE ASSISTANT 06/13/2024 Last Documented On 4 7:36PM ; [facility] [I10 - Essential (primary) hypertension] essential hypertension Medical Established Patient with Denny Lomeli CUSTOMER SERVICE ASSISTANT 06/13/2024 Last Documented On 4 7:36PM ; [facility] [N94.6 - Dysmenorrhea, unspe cified] dysmenorrhea Medical Established Patient with Denny Lomeli CUSTOMER SERVICE ASSISTANT 06/13/2024 Last Documented On 4 7:36PM ; [facility] [Z68.43 - Body mass index [B PA] 50.0-59.9, adult] assessment of body mass index Medical Established Patient with Denny Lomeli CUSTOMER SERVICE ASSISTANT 06/13/2024 Last Documented On 4 7:36PM ; [facility] Encounter for Immunization Medical Estab lished Patient with Denny Lomeli CUSTOMER SERVICE ASSISTANT 06/13/2024 Last Documented On 4 7:36PM ; [facility] Venipuncture was performed Medical Estab lished Patient with Denny Lomeli CUSTOMER SERVICE ASSISTANT 06/13/2024 Last Documented On 4 7:36PM ; [facility] Attention-deficit hyperactivity disorder Established Patient with Kinga Short LISWS 04/10/2024 Last Documented On 4 10:10AM ; [facility] Bipolar I disorder, most rec ent episode, depressed - mild Established Patient with Kinga Short LISWS 04/10/2024 Last Documented On 4 10:10AM ; [facility] Post-traumatic stress disorder Establ ished Patient with Kinga Short LISWS 04/10/2024 Last Documented On 4 10:10AM ; [facility] [D64.9 - Anemia, unspecified] anemia Med ical Established Patient with Denny Lomeli CUSTOMER SERVICE ASSISTANT 04/10/2024 Last Documented On 4 6:51PM ; [facility] [Z68.43 - Body mass index [B PA] 50.0-59.9, adult] assessment of body mass index Medical Established Patient with Denny Lomeli CUSTOMER SERVICE ASSISTANT 04/10/2024 Last Documented On 4 6:51PM ; [facility] Bipolar affective disorder, current episode depressed, mild Established Patient with Kinga Short LISWS 01/17/2024 Last Documented On 4 5:16PM ; [facility] Post-traumatic stress disorder Establ ished Patient with Kinga Short LISWS 01/17/2024 Last Documented On 4 5:16PM ; [facility] Undifferentiated attention d eficit disorder Established Patient with Kinga Short LISWS 01/17/2024 Last Documented On 4 5:16PM ; [facility] Visit for: screening for disorder BH Est ablished Patient with Kinga Bourgeois LISWS 01/17/2024 Last Documented On 4 5:16PM ; [facility] [Z68.43 - Body mass index [B PA] 50.0-59.9, adult] assessment of body mass index Medical Established Patient with Denny Lomeli CUSTOMER SERVICE ASSISTANT 01/17/2024 Last Documented On 4 7:50PM ; [facility] Attention-deficit hyperactivity disorder Medical Established Patient with Denny Lomeli CUSTOMER SERVICE ASSISTANT 01/17/2024 Last Documented On 4 7:50PM ; [facility] Diabetes Risk Test Score was three score 01/17/2024 Medical Established Patient with Denny Lomeli CUSTOMER SERVICE ASSISTANT 01/17/2024 Last Documented On 4 7:50PM ; [facility] Visit for: screening for STD Medical Est ablished Patient with Denny Lomeli CUSTOMER SERVICE ASSISTANT 01/17/2024 Last Documented On 4 7:50PM ; [facility] [Z68.32 - Body mass index [B PA] 32.0-32.9, adult] assessment of body mass index Medical Established Patient with Denny Lomeli CUSTOMER SERVICE ASSISTANT 05/10/2023 Last Documented On 3 6:01PM ; [facility] Borderline personality disorder Medical Established Patient with Dennyartem Lomeli CUSTOMER SERVICE ASSISTANT 05/10/2023 Last Documented On 3 6:01PM ; [facility] Screening for diabetes mellitus Medical Established Patient with Dennyartem Lomeli CUSTOMER SERVICE ASSISTANT 05/10/2023 Last Documented On 3 6:01PM ; [facility] Assessment of body mass index Medical Es tablished Patient with Dennyartem Lomeli CUSTOMER SERVICE ASSISTANT 08/12/2022 Last Documented On 2 2:45PM ; [facility] Bipolar affective disorder, current episode manic [facility] with Belkis Velarde [facility] 06/16/2022 Last Documented On 2 3:22PM ; [facility] Bipolar affective disorder, current episode manic Established Patient with Belkis Velarde [facility] 06/15/2022 Last Documented On 2 2:28PM ; [facility] Bipolar affective disorder, current episode depressed, severe with psychosis [facility] with Belkis Velarde [facility] 06/15/2022 Last Documented On 2 3:29PM ; [facility] Assessment of body mass inde x [Body mass index [BMI] 50.0-59.9, adult] Open Access - Established with Leah Monique CUSTOMER SERVICE ASSISTANT 06/15/2022 Last Documented On 2 9:36AM ; [facility] Bipolar I disorder, most rec ent episode, manic Open Access - Established with Leah Moinque CUSTOMER SERVICE ASSISTANT 06/15/2022 Last Documented On 2 9:36AM ; [facility] Post-traumatic stress disorder BH Establ ished Patient with Belkis Velarde [facility] 06/08/2022 Last Documented On 2 3:20PM ; [facility] No cough Medical Established Patient with Dennyartem Lomeli CUSTOMER SERVICE ASSISTANT 06/08/2022 Last Documented On 2 4:04PM ; [facility] Z68.43 - Body mass index [BM I] 50.0-59.9, adult Medical Established Patient with Denny Armani CUSTOMER SERVICE ASSISTANT 06/08/2022 Last Documented On 2 4:04PM ; [facility] Borderline personality disor kyree Pt reported hx of sx/dx Established Patient with Belkis Velarde [facility] 05/27/2022 Last Documented On 2 4:08PM ; [facility] Assessment of body mass inde x [Body mass index [BMI] 50.0-59.9, adult] Open Access - Established with Leah Monique [facility] 05/27/2022 Last Documented On 2 7:41PM ; [facility] Diabetes Risk Test Score was three score 05/27/2022 Open Access - Established with Leah Monique [facility] 05/27/2022 Last Documented On 2 7:41PM ; [facility] Bipolar I disorder, most rec ent episode, manic Established [facility] 07/15/2021 Last Documented On 1 1:35AM ; [facility] Borderline personality disorder Estab lished Patient with [facility]ufemia Mcneil [facility] 07/15/2021 Last Documented On 1 1:35AM ; [facility] Post-traumatic stress disorder Establ ished Patient with Eufemia Mcneil [facility] 07/15/2021 Last Documented On 1 1:35AM ; [facility] Assessment of visit for: scr eening for human immunodeficiency virus Medical Established Patient with Denny Armani CUSTOMER SERVICE ASSISTANT 07/15/2021 Last Documented On 1 2:56PM ; [facility] Nicotine dependence Medical Established Patient with Denny Armani [facility] 07/15/2021 Last Documented On 1 2:56PM ; [facility] Tachycardia Medical Established Patient with Denny Armani [facility] 07/15/2021 Last Documented On 1 2:56PM ; [facility] Z68.43 - Body mass index [BM I] 50.0-59.9, adult Medical Established Patient with Denny Armani CUSTOMER SERVICE ASSISTANT 07/15/2021 Last Documented On 1 2:56PM ; [facility] Bipolar I disorder, most rec ent episode, manic Established Patient with Kinga Short LISWS 06/17/2021 Last Documented On 1 10:17AM ; [facility] Borderline personality disor kyree per patient reported history Established Patient with Kinga Short LISWS 06/17/2021 Last Documented On 1 10:17AM ; [facility] Nicotine dependence BH Established Patient with Kinga Short LISWS 06/17/2021 Last Documented On 1 10:17AM ; [facility] Post-traumatic stress disorder Establ ished Patient with Kinga Short LISWS 06/17/2021 Last Documented On 1 10:17AM ; [facility] Body mass index Medical Established Patient with Denny Armani CUSTOMER SERVICE ASSISTANT 06/17/2021 Last Documented On 1 5:23PM ; [facility] Morbid obesity Medical Established Patient with Denny Armani CUSTOMER SERVICE ASSISTANT 06/17/2021 Last Documented On 1 5:23PM ; [facility] Nicotine dependence uncomplicated Medica l Established Patient with Denny Armani CUSTOMER SERVICE ASSISTANT 06/17/2021 Last Documented On 1 5:23PM ; [facility] Z68.42 - Body mass index [BM I] 45.0-49.9, adult Medical Established Patient with Denny Armani CUSTOMER SERVICE ASSISTANT 06/17/2021 Last Documented On 1 5:23PM ; [facility] 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 disorders [place] with Teagan zuniga CUSTOMER SERVICE ASSISTANT 05/15/2021 Last Documented On 1 7:49AM ; [facility] Mood disorders, NOS per blaze ent reported history Established Patient with Kinga Short LISWS 04/23/2021 Last Documented On 1 7:15PM ; [facility] Post-traumatic stress disorder Establ ished Patient with Kinga Short LISWS 04/23/2021 Last Documented On 1 7:15PM ; [facility] Morbid obesity Medical Established Patient with Denny Armani CUSTOMER SERVICE ASSISTANT 04/23/2021 Last Documented On 1 12:31PM ; [facility] Otitis externa Medical Established Patient with Denny Armani CUSTOMER SERVICE ASSISTANT 04/23/2021 Last Documented On 1 12:31PM ; [facility] Z68.42 - Body mass index [BM I] 45.0-49.9, adult Medical Established Patient with Denny Armani CUSTOMER SERVICE ASSISTANT 04/23/2021 Last Documented On 1 12:31PM ; [facility] Post-traumatic stress disorder Establ ished Patient with Kinga Short LISWS 04/01/2021 Last Documented On 1 10:05PM ; [facility] Morbid obesity Medical Established Patient with Denny Armani CUSTOMER SERVICE ASSISTANT 04/01/2021 Last Documented On 1 4:45PM ; [facility] Z68.42 - Body mass index [BM I] 45.0-49.9, adult Medical Established Patient with Denny Armani CUSTOMER SERVICE ASSISTANT 04/01/2021 Last Documented On 1 4:45PM ; [facility] Post-traumatic stress disorder Establ ished Patient with Kinga Short LISWS 03/17/2021 Last Documented On 1 11:59AM ; [facility] Assessment of visit for: scr eening for human immunodeficiency virus Medical New Patient with Denny Armani CUSTOMER SERVICE ASSISTANT 03/17/2021 Last Documented On 1 4:06PM ; [facility] Diabetes Risk Test Score was one score 03/17/2021 Medical New Patient with Denny Armani CUSTOMER SERVICE ASSISTANT 03/17/2021 Last Documented On 1 4:06PM ; [facility] Hypertension Medical New Patient with Denny C chas CUSTOMER SERVICE ASSISTANT 03/17/2021 Last Documented On 1 4:06PM ; [facility] Morbid obesity Medical New Patient with Denny C chas CUSTOMER SERVICE ASSISTANT 03/17/2021 Last Documented On 1 4:06PM ; [facility] Post-traumatic stress disorder Medical New Patie nt with Denny Armani CUSTOMER SERVICE ASSISTANT 03/17/2021 Last Documented On 1 4:06PM ; [facility] Z68.42 - Body mass index [BM I] 45.0-49.9, adult Medical New Patient with Denny Armani CUSTOMER SERVICE ASSISTANT 03/17/2021 Last Documented On 1 4:06PM ; [facility] Work Phone: 1(998) 137-501410-07-2024 Progress note* Progress note Date Encounter Last Documented by 07/29/2024 Chart Update Last documented on 07/31/2024; 2:06 PM, Denny Lomeli CNP; [facility] Active Problems & Conditions - F90.9 [...] EndCited Care Team - Denny Lomeli CNP [facility]10-01-2024 Progress note* Progress note Date Encounter Last Documented by 07/23/2024 Chart Update Last documented on 07/29/2024; 12:06 PM, Denny Lomeli CNP; [facility] Active Problems & Conditions - F90.9 - [...] disorders Care Team - Denny Lomeli CNP [facility]09-30-2024 History general Narrative - Reported Includes: Medical History in patient's chart Description Last Updated No Safety Measures 07/22/2024 Last Documented On 4 4:15PM ; [facility] POTS 04/10/2024 Last Documented On 4 6:51PM ; [facility] 0 previous live (s) 01/17/2024 Last Documented On 4 7:50PM ; [facility] Previously 1 time(s) 01/17/2024 Last Documented On 4 7:50PM ; [facility] Recent immunization for flu 01/17/2024 Last Documented On 4 7:50PM ; [facility] Has sex without a condom 06/08/2022 Last Documented On 2 4:04PM ; [facility] Not planning to have a baby in the next 12 months 06/08/2022 Last Documented On 2 4:04PM ; [facility] sexually transmitted infection status known 06/08/2022 Last Documented On 2 4:04PM ; [facility] No previous hospitalizations 06/08/2022 Last Documented On 2 4:04PM ; [facility] Chronic illness 05/17/2021 Last Documented On 1 7:49AM ; [facility] Exposure to COVID-19 04/23/2021 Last Documented On 1 12:31PM ; [facility] History of gynecologic disorder 03/17/20 21 Last Documented On 1 4:06PM ; [facility] History of Polycystic Ovarian Syndrome ( PCOS) 03/17/2021 Last Documented On 1 4:06PM ; [facility] History of anxiety disorder NOS 03/17/20 21 Last Documented On 1 4:06PM ; [facility] History of migraine headache 03/17/2021 Last Documented On 1 4:06PM ; [facility] History of psychiatric disorders biopola r disorder 03/17/2021 Last Documented On 1 4:06PM ; [facility] Work Phone: 1(313) 449-809709-30-2024 History general Narrative - Reported Includes: Medical History in patient's chart Description Last Updated No Safety Measures 07/22/2024 Last Documented On 4 4:15PM ; [facility] Consent form on file for procedure 07/18 Last Documented On 4 1:56PM ; [facility] POTS 04/10/2024 Last Documented On 4 6:51PM ; [facility] 0 previous live (s) 01/17/2024 Last Documented On 4 7:50PM ; [facility] Previously 1 time(s) 01/17/2024 Last Documented On 4 7:50PM ; [facility] Recent immunization for flu 01/17/2024 Last Documented On 4 7:50PM ; [facility] Has sex without a condom 06/08/2022 Last Documented On 2 4:04PM ; [facility] Not planning to have a baby in the next 12 months 06/08/2022 Last Documented On 2 4:04PM ; [facility] sexually transmitted infection status known 06/08/2022 Last Documented On 2 4:04PM ; [facility] No previous hospitalizations 06/08/2022 Last Documented On 2 4:04PM ; [facility] Chronic illness 05/17/2021 Last Documented On 1 7:49AM ; [facility] Exposure to COVID-19 04/23/2021 Last Documented On 1 12:31PM ; [facility] History of gynecologic disorder 03/17/20 21 Last Documented On 1 4:06PM ; [facility] History of Polycystic Ovarian Syndrome ( PCOS) 03/17/2021 Last Documented On 1 4:06PM ; [facility] History of anxiety disorder NOS 03/17/20 21 Last Documented On 1 4:06PM ; [facility] History of migraine headache 03/17/2021 Last Documented On 1 4:06PM ; [facility] History of psychiatric disorders biopola r disorder 03/17/2021 Last Documented On 1 4:06PM ; [facility] Work Phone: 1(587) 825-568809-30-2024 History general Narrative - Reported Includes: Medical History in patient's chart Description Last Updated No Safety Measures 07/22/2024 Last Documented On 4 4:15PM ; [facility] Consent form on file for procedure 07/18 Last Documented On 4 1:56PM ; [facility] POTS 04/10/2024 Last Documented On 4 6:51PM ; [facility] 0 previous live (s) 01/17/2024 Last Documented On 4 7:50PM ; [facility] Previously 1 time(s) 01/17/2024 Last Documented On 4 7:50PM ; [facility] Recent immunization for flu 01/17/2024 Last Documented On 4 7:50PM ; [facility] Has sex without a condom 06/08/2022 Last Documented On 2 4:04PM ; [facility] Not planning to have a baby in the next 12 months 06/08/2022 Last Documented On 2 4:04PM ; [facility] sexually transmitted infection status known 06/08/2022 Last Documented On 2 4:04PM ; [facility] No previous hospitalizations 06/08/2022 Last Documented On 2 4:04PM ; [facility] Chronic illness 05/17/2021 Last Documented On 1 7:49AM ; [facility] Exposure to COVID-19 04/23/2021 Last Documented On 1 12:31PM ; [facility] History of gynecologic disorder 03/17/20 21 Last Documented On 1 4:06PM ; [facility] History of Polycystic Ovarian Syndrome ( PCOS) 03/17/2021 Last Documented On 1 4:06PM ; [facility] History of anxiety disorder NOS 03/17/20 21 Last Documented On 1 4:06PM ; [facility] History of migraine headache 03/17/2021 Last Documented On 1 4:06PM ; [facility] History of psychiatric disorders biopola r disorder 03/17/2021 Last Documented On 1 4:06PM ; [facility] Work Phone: 1(987) 344-230809-30-2024 History general Narrative - Reported Includes: Medical History in patient's chart Description Last Updated No Safety Measures 07/22/2024 Last Documented On 4 4:15PM ; [facility] Consent form on file for procedure 07/18 Last Documented On 4 2:09PM ; [facility] POTS 04/10/2024 Last Documented On 4 6:51PM ; [facility] 0 previous live (s) 01/17/2024 Last Documented On 4 7:50PM ; [facility] Previously 1 time(s) 01/17/2024 Last Documented On 4 7:50PM ; [facility] Recent immunization for flu 01/17/2024 Last Documented On 4 7:50PM ; [facility] Has sex without a condom 06/08/2022 Last Documented On 2 4:04PM ; [facility] Not planning to have a baby in the next 12 months 06/08/2022 Last Documented On 2 4:04PM ; [facility] sexually transmitted infection status known 06/08/2022 Last Documented On 2 4:04PM ; [facility] No previous hospitalizations 06/08/2022 Last Documented On 2 4:04PM ; [facility] Chronic illness 05/17/2021 Last Documented On 1 7:49AM ; [facility] Exposure to COVID-19 04/23/2021 Last Documented On 1 12:31PM ; [facility] History of gynecologic disorder 03/17/20 21 Last Documented On 1 4:06PM ; [facility] History of Polycystic Ovarian Syndrome ( PCOS) 03/17/2021 Last Documented On 1 4:06PM ; [facility] History of anxiety disorder NOS 03/17/20 21 Last Documented On 1 4:06PM ; [facility] History of migraine headache 03/17/2021 Last Documented On 1 4:06PM ; [facility] History of psychiatric disorders biopola r disorder 03/17/2021 Last Documented On 1 4:06PM ; [facility] Work Phone: 1(808) 872-742609-30-2024 History general Narrative - Reported Includes: Medical History in patient's chart Description Last Updated No Safety Measures 07/22/2024 Last Documented On 4 4:15PM ; [facility] Consent form on file for procedure 07/18 Last Documented On 4 1:56PM ; [facility] POTS 04/10/2024 Last Documented On 4 6:51PM ; [facility] 0 previous live (s) 01/17/2024 Last Documented On 4 7:50PM ; [facility] Previously 1 time(s) 01/17/2024 Last Documented On 4 7:50PM ; [facility] Recent immunization for flu 01/17/2024 Last Documented On 4 7:50PM ; [facility] Has sex without a condom 06/08/2022 Last Documented On 2 4:04PM ; [facility] Not planning to have a baby in the next 12 months 06/08/2022 Last Documented On 2 4:04PM ; [facility] sexually transmitted infection status known 06/08/2022 Last Documented On 2 4:04PM ; [facility] No previous hospitalizations 06/08/2022 Last Documented On 2 4:04PM ; [facility] Chronic illness 05/17/2021 Last Documented On 1 7:49AM ; [facility] Exposure to COVID-19 04/23/2021 Last Documented On 1 12:31PM ; [facility] History of gynecologic disorder 03/17/20 21 Last Documented On 1 4:06PM ; [facility] History of Polycystic Ovarian Syndrome ( PCOS) 03/17/2021 Last Documented On 1 4:06PM ; [facility] History of anxiety disorder NOS 03/17/20 21 Last Documented On 1 4:06PM ; [facility] History of migraine headache 03/17/2021 Last Documented On 1 4:06PM ; [facility] History of psychiatric disorders biopola r disorder 03/17/2021 Last Documented On 1 4:06PM ; [facility] Work Phone: 1([phone]) 129-631209-26-2024 Evaluation note Includes: Assessments for all patient encounters Findings Encounter Date Attention-deficit hyperactiv ity disorder Established Patient with Sarai Alberts ORACLE PROGRAMMER 07/18/2024 Last Documented On 4 4:15PM ; [facility] Bipolar I disorder, most rec ent episode, depressed - mild Established Patient with Sarai Alberts ORACLE PROGRAMMER 07/18/2024 Last Documented On 4 4:15PM ; [facility] [facility] Nicotine dependence Established Patient with Sarai Alberts [employer]ACLE PROGRAMMER 07/18/2024 Last Documented On 4 4:15PM ; [facility] Post-traumatic stress disorder Establ ished Patient with Sarai Alberts [employer]ACLE PROGRAMMER 07/18/2024 Last Documented On 4 4:15PM ; [facility] [Z68.43 - Body mass index [B PA] 50.0-59.9, adult] assessment of body mass index Medical Established Patient with Denny Lomeli CUSTOMER SERVICE ASSISTANT 07/18/2024 Last Documented On 4 5:46PM ; [facility] Bipolar I disorder, most rec ent episode, depressed - mild Medical Established Patient with Denny Armani CUSTOMER SERVICE ASSISTANT 07/18/2024 Last Documented On 4 5:46PM ; [facility] Caries Medical Established Patient with Denny Armani CUSTOMER SERVICE ASSISTANT 07/18/2024 Last Documented On 4 5:46PM ; [facility] Encounter for Immunization Medical Estab lished Patient with Denny Armani CUSTOMER SERVICE ASSISTANT 07/18/2024 Last Documented On 4 5:46PM ; [facility] Type 2 diabetes mellitus wit hout complication Medical Established Patient with Denny Armani CUSTOMER SERVICE ASSISTANT 07/18/2024 Last Documented On 4 5:46PM ; [facility] Attention-deficit hyperactivity disorder Established Patient with Kinga Short LISWS 06/13/2024 Last Documented On 4 3:28PM ; [facility] Bipolar I disorder, most rec ent episode, depressed - mild BH Established Patient with Kinga Short LISWS 06/13/2024 Last Documented On 4 3:28PM ; [facility] Post-traumatic stress disorder Establ ished Patient with Kinga Short LISWS 06/13/2024 Last Documented On 4 3:28PM ; [facility] [E11.9 - Type 2 diabetes gloria litus without complications] type 2 diabetes mellitus Medical Established Patient with Denny Lomeli CUSTOMER SERVICE ASSISTANT 06/13/2024 Last Documented On 4 7:36PM ; [facility] [F41.1 - Generalized anxiety disorder] generalized anxiety disorder Medical Established Patient with Denny Lomeli CUSTOMER SERVICE ASSISTANT 06/13/2024 Last Documented On 4 7:36PM ; [facility] [I10 - Essential (primary) hypertension] essential hypertension Medical Established Patient with Denny Lomeli CUSTOMER SERVICE ASSISTANT 06/13/2024 Last Documented On 4 7:36PM ; [facility] [N94.6 - Dysmenorrhea, unspe cified] dysmenorrhea Medical Established Patient with Denny Lomeli CUSTOMER SERVICE ASSISTANT 06/13/2024 Last Documented On 4 7:36PM ; [facility] [Z68.43 - Body mass index [B PA] 50.0-59.9, adult] assessment of body mass index Medical Established Patient with Denny Lomeli CUSTOMER SERVICE ASSISTANT 06/13/2024 Last Documented On 4 7:36PM ; [facility] Encounter for Immunization Medical Estab lished Patient with Denny Lomeli CUSTOMER SERVICE ASSISTANT 06/13/2024 Last Documented On 4 7:36PM ; [facility] Venipuncture was performed Medical Estab lished Patient with Denny Lomeli CUSTOMER SERVICE ASSISTANT 06/13/2024 Last Documented On 4 7:36PM ; [facility] Attention-deficit hyperactivity disorder Established Patient with Kinga Short LISWS 04/10/2024 Last Documented On 4 10:10AM ; [facility] Bipolar I disorder, most rec ent episode, depressed - mild Established Patient with Kinga Short LISWS 04/10/2024 Last Documented On 4 10:10AM ; [facility] Post-traumatic stress disorder Establ ished Patient with Kinga Short LISWS 04/10/2024 Last Documented On 4 10:10AM ; [facility] [D64.9 - Anemia, unspecified] anemia Med ical Established Patient with Dennyartem Lomeli CUSTOMER SERVICE ASSISTANT 04/10/2024 Last Documented On 4 6:51PM ; [facility] [Z68.43 - Body mass index [B PA] 50.0-59.9, adult] assessment of body mass index Medical Established Patient with Denny Lomeli CUSTOMER SERVICE ASSISTANT 04/10/2024 Last Documented On 4 6:51PM ; [facility] Bipolar affective disorder, current episode depressed, mild Established Patient with Kinga Short LISWS 01/17/2024 Last Documented On 4 5:16PM ; [facility] Post-traumatic stress disorder Establ ished Patient with Kinga Short LISWS 01/17/2024 Last Documented On 4 5:16PM ; [facility] Undifferentiated attention d eficit disorder Established Patient with Kinga Short LISWS 01/17/2024 Last Documented On 4 5:16PM ; [facility] Visit for: screening for disorder Est ablished Patient with Kinga Short LISWS 01/17/2024 Last Documented On 4 5:16PM ; [facility] [Z68.43 - Body mass index [B PA] 50.0-59.9, adult] assessment of body mass index Medical Established Patient with Denny Lomeli CUSTOMER SERVICE ASSISTANT 01/17/2024 Last Documented On 4 7:50PM ; [facility] Attention-deficit hyperactivity disorder Medical Established Patient with Denny Lomeli CUSTOMER SERVICE ASSISTANT 01/17/2024 Last Documented On 4 7:50PM ; [facility] Diabetes Risk Test Score was three score 01/17/2024 Medical Established Patient with Denny Lomeli CUSTOMER SERVICE ASSISTANT 01/17/2024 Last Documented On 4 7:50PM ; [facility] Visit for: screening for STD Medical Est ablished Patient with Denny Lomeli CUSTOMER SERVICE ASSISTANT 01/17/2024 Last Documented On 4 7:50PM ; [facility] [Z68.32 - Body mass index [B PA] 32.0-32.9, adult] assessment of body mass index Medical Established Patient with Denny Lomeli CUSTOMER SERVICE ASSISTANT 05/10/2023 Last Documented On 3 6:01PM ; [facility] Borderline personality disorder Medical Established Patient with Denny Lomeli CUSTOMER SERVICE ASSISTANT 05/10/2023 Last Documented On 3 6:01PM ; [facility] Screening for diabetes mellitus Medical Established Patient with Denny Lomeli [facility] 05/10/2023 Last Documented On 3 6:01PM ; [facility] Assessment of body mass index Medical Es tablished Patient with Denny Lomeli [facility] 08/12/2022 Last Documented On 2 2:45PM ; [facility] Bipolar affective disorder, current episode manic [facility] with Belkisdionna Velarde [facility]-S 06/16/2022 Last Documented On 2 3:22PM ; [facility] Bipolar affective disorder, current episode manic Established Patient with Belkisdionna Velarde LPCC-S 06/15/2022 Last Documented On 2 2:28PM ; [facility] Bipolar affective disorder, current episode depressed, severe with psychosis [facility] with Belkisdionna Velarde [facility] 06/15/2022 Last Documented On 2 3:29PM ; [facility] Assessment of body mass inde x [Body mass index [BMI] 50.0-59.9, adult] Open Access - Established with Leah Amaya [facility] 06/15/2022 Last Documented On 2 9:36AM ; [facility] Bipolar I disorder, most rec ent episode, manic Open Access - Established with Leah Monique CUSTOMER SERVICE ASSISTANT 06/15/2022 Last Documented On 2 9:36AM ; [facility] Post-traumatic stress disorder BH Establ ished Patient with Belkisdionna Velarde LPCC-S 06/08/2022 Last Documented On 2 3:20PM ; [facility] No cough Medical Established Patient with Dennyartem Lomeli CUSTOMER SERVICE ASSISTANT 06/08/2022 Last Documented On 2 4:04PM ; [facility] Z68.43 - Body mass index [BM I] 50.0-59.9, adult Medical Established Patient with Dennyartem Lomeli CUSTOMER SERVICE ASSISTANT 06/08/2022 Last Documented On 2 4:04PM ; [facility] Borderline personality disor kyree Pt reported hx of sx/dx Established Patient with Belkis Velarde LPCC-S 05/27/2022 Last Documented On 2 4:08PM ; [facility] Assessment of body mass inde x [Body mass index [BMI] 50.0-59.9, adult] Open Access - Established with Leah Monique CUSTOMER SERVICE ASSISTANT 05/27/2022 Last Documented On 2 7:41PM ; [facility] Diabetes Risk Test Score was three score 05/27/2022 Open Access - Established with Leah Monique CUSTOMER SERVICE ASSISTANT 05/27/2022 Last Documented On 2 7:41PM ; [facility] Bipolar I disorder, most rec ent episode, manic Established Patient with Eufemia Mcneil LPCC-S 07/15/2021 Last Documented On 1 1:35AM ; [facility] Borderline personality disorder BH Estab lished Patient with Eufemia Mcneil LPCC-S 07/15/2021 Last Documented On 1 1:35AM ; [facility] Post-traumatic stress disorder BH Establ ished Patient with Eufemia Mcneil LPCC-S 07/15/2021 Last Documented On 1 1:35AM ; [facility] Assessment of visit for: lloyd strange for human immunodeficiency virus Medical Established Patient with Denny Lomeli CUSTOMER SERVICE ASSISTANT 07/15/2021 Last Documented On 1 2:56PM ; [facility] Nicotine dependence Medical Established Patient with Denny Armani CUSTOMER SERVICE ASSISTANT 07/15/2021 Last Documented On 1 2:56PM ; [facility] Tachycardia Medical Established Patient with Denny Armani CUSTOMER SERVICE ASSISTANT 07/15/2021 Last Documented On 1 2:56PM ; [facility] Z68.43 - Body mass index [BM I] 50.0-59.9, adult Medical Established Patient with Denny Armani CUSTOMER SERVICE ASSISTANT 07/15/2021 Last Documented On 1 2:56PM ; [facility] Bipolar I disorder, most rec ent episode, manic Established Patient with Kinga Short LISWS 06/17/2021 Last Documented On 1 10:17AM ; [facility] Borderline personality disor kyree per patient reported history Established Patient with Kinga Short LISWS 06/17/2021 Last Documented On 1 10:17AM ; [facility] Nicotine dependence Established Patient with Kinga Short LISWS 06/17/2021 Last Documented On 1 10:17AM ; [facility] Post-traumatic stress disorder Establ ished Patient with Kinga Short LISWS 06/17/2021 Last Documented On 1 10:17AM ; [facility] Body mass index Medical Established Patient with Denny Armani CUSTOMER SERVICE ASSISTANT 06/17/2021 Last Documented On 1 5:23PM ; [facility] Morbid obesity Medical Established Patient with Denny Armani CUSTOMER SERVICE ASSISTANT 06/17/2021 Last Documented On 1 5:23PM ; [facility] Nicotine dependence uncomplicated Medica l Established Patient with Denny Armani CUSTOMER SERVICE ASSISTANT 06/17/2021 Last Documented On 1 5:23PM ; [facility] Z68.42 - Body mass index [BM I] 45.0-49.9, adult Medical Established Patient with Denny Armani CUSTOMER SERVICE ASSISTANT 06/17/2021 Last Documented On 1 5:23PM ; [facility] 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 disorders [place] with Teagan zuniga CUSTOMER SERVICE ASSISTANT 05/15/2021 Last Documented On 1 7:49AM ; [facility] Mood disorders, NOS per blaze ent reported history Established Patient with Kinga Short LISWS 04/23/2021 Last Documented On 1 7:15PM ; [facility] Post-traumatic stress disorder Establ ished Patient with Kinga Short LISWS 04/23/2021 Last Documented On 1 7:15PM ; [facility] Morbid obesity Medical Established Patient with Denny Armani CUSTOMER SERVICE ASSISTANT 04/23/2021 Last Documented On 1 12:31PM ; [facility] Otitis externa Medical Established Patient with Denny Armani CUSTOMER SERVICE ASSISTANT 04/23/2021 Last Documented On 1 12:31PM ; [facility] Z68.42 - Body mass index [BM I] 45.0-49.9, adult Medical Established Patient with Denny Armani CUSTOMER SERVICE ASSISTANT 04/23/2021 Last Documented On 1 12:31PM ; [facility] Post-traumatic stress disorder Establ ished Patient with Kinga Short LISWS 04/01/2021 Last Documented On 1 10:05PM ; [facility] Morbid obesity Medical Established Patient with Denny Armani CUSTOMER SERVICE ASSISTANT 04/01/2021 Last Documented On 1 4:45PM ; [facility] Z68.42 - Body mass index [BM I] 45.0-49.9, adult Medical Established Patient with Denny Armani CUSTOMER SERVICE ASSISTANT 04/01/2021 Last Documented On 1 4:45PM ; [facility] Post-traumatic stress disorder Establ ished Patient with Kinga Short LISWS 03/17/2021 Last Documented On 1 11:59AM ; [facility] Assessment of visit for: lloyd mcgillning for human immunodeficiency virus Medical New Patient with Dennyartem Landonen CUSTOMER SERVICE ASSISTANT 03/17/2021 Last Documented On 1 4:06PM ; [facility] Diabetes Risk Test Score was one score 03/17/2021 Medical New Patient with Denny Armani CUSTOMER SERVICE ASSISTANT 03/17/2021 Last Documented On 1 4:06PM ; [facility] Hypertension Medical New Patient with Denny Maryjo doherty CUSTOMER SERVICE ASSISTANT 03/17/2021 Last Documented On 1 4:06PM ; [facility] Morbid obesity Medical New Patient with Denny C chas CUSTOMER SERVICE ASSISTANT 03/17/2021 Last Documented On 1 4:06PM ; [facility] Post-traumatic stress disorder Medical New Patie nt with Denny Lomeli CUSTOMER SERVICE ASSISTANT 03/17/2021 Last Documented On 1 4:06PM ; [facility] Z68.42 - Body mass index [BM I] 45.0-49.9, adult Medical New Patient with Denny Lomeli CUSTOMER SERVICE ASSISTANT 03/17/2021 Last Documented On 1 4:06PM ; [facility] Work Phone: [phone]) 478-480409-26-2024 Evaluation note Includes: Assessments for all patient encounters Findings Encounter Date Attention-deficit hyperactiv ity disorder Established Patient with Sarai Alberts [facility] 07/18/2024 Last Documented On 4 4:15PM ; [facility] Bipolar I disorder, most rec ent episode, depressed - mild BH Established Patient with Sarai Alberts [facility] 07/18/2024 Last Documented On 4 4:15PM ; [facility] Nicotine dependence Established Patient with Sarai Alberts [facility] 07/18/2024 Last Documented On 4 4:15PM ; [facility] Post-traumatic stress disorder BH Establ ished Patient with Sarai Alberts [facility] 07/18/2024 Last Documented On 4 4:15PM ; [facility] [Z68.43 - Body mass index [B PA] 50.0-59.9, adult] assessment of body mass index Medical Established Patient with Denny Lomeli CUSTOMER SERVICE ASSISTANT 07/18/2024 Last Documented On 4 1:56PM ; [facility] Bipolar I disorder, most rec ent episode, depressed - mild Medical Established Patient with Dennyartem Landonen CUSTOMER SERVICE ASSISTANT 07/18/2024 Last Documented On 4 1:56PM ; [facility] Caries Medical Established Patient with Dennyartem Landonen CUSTOMER SERVICE ASSISTANT 07/18/2024 Last Documented On 4 1:56PM ; [facility] Encounter for Immunization Medical Estab lished Patient with Denny Armani CUSTOMER SERVICE ASSISTANT 07/18/2024 Last Documented On 4 1:56PM ; [facility] Type 2 diabetes mellitus wit hout complication Medical Established Patient with Denny Lomeli CUSTOMER SERVICE ASSISTANT 07/18/2024 Last Documented On 4 1:56PM ; [facility] Attention-deficit hyperactivity disorder Established Patient with Kinga Short LISWS 06/13/2024 Last Documented On 4 3:28PM ; [facility] Bipolar I disorder, most rec ent episode, depressed - mild Established Patient with Kinga Short LISWS 06/13/2024 Last Documented On 4 3:28PM ; [facility] Post-traumatic stress disorder Establ ished Patient with Kinga Short LISWS 06/13/2024 Last Documented On 4 3:28PM ; [facility] [E11.9 - Type 2 diabetes gloria litus without complications] type 2 diabetes mellitus Medical Established Patient with Denny Lomeli CUSTOMER SERVICE ASSISTANT 06/13/2024 Last Documented On 4 7:36PM ; [facility] [F41.1 - Generalized anxiety disorder] generalized anxiety disorder Medical Established Patient with Denny Lomeli CUSTOMER SERVICE ASSISTANT 06/13/2024 Last Documented On 4 7:36PM ; [facility] [I10 - Essential (primary) hypertension] essential hypertension Medical Established Patient with Denny Lomeli CUSTOMER SERVICE ASSISTANT 06/13/2024 Last Documented On 4 7:36PM ; [facility] [N94.6 - Dysmenorrhea, unspe cified] dysmenorrhea Medical Established Patient with Denny Lomeli CUSTOMER SERVICE ASSISTANT 06/13/2024 Last Documented On 4 7:36PM ; [facility] [Z68.43 - Body mass index [B PA] 50.0-59.9, adult] assessment of body mass index Medical Established Patient with Denny Lomeli CUSTOMER SERVICE ASSISTANT 06/13/2024 Last Documented On 4 7:36PM ; [facility] Encounter for Immunization Medical Estab lished Patient with Dennyartem Lomeli CUSTOMER SERVICE ASSISTANT 06/13/2024 Last Documented On 4 7:36PM ; [facility] Venipuncture was performed Medical Estab lished Patient with Denny Lomeli CUSTOMER SERVICE ASSISTANT 06/13/2024 Last Documented On 4 7:36PM ; [facility] Attention-deficit hyperactivity disorder Established Patient with Kinga Short LISWS 04/10/2024 Last Documented On 4 10:10AM ; [facility] Bipolar I disorder, most rec ent episode, depressed - mild BH Established Patient with Kinga Short LISWS 04/10/2024 Last Documented On 4 10:10AM ; [facility] Post-traumatic stress disorder Establ ished Patient with Kinga Short LISWS 04/10/2024 Last Documented On 4 10:10AM ; [facility] [D64.9 - Anemia, unspecified] anemia Med ical Established Patient with Dennyartem Lomeli CUSTOMER SERVICE ASSISTANT 04/10/2024 Last Documented On 4 6:51PM ; [facility] [Z68.43 - Body mass index [B PA] 50.0-59.9, adult] assessment of body mass index Medical Established Patient with Denny Lomeli CUSTOMER SERVICE ASSISTANT 04/10/2024 Last Documented On 4 6:51PM ; [facility] Bipolar affective disorder, current episode depressed, mild Established Patient with Kinga Short LISWS 01/17/2024 Last Documented On 4 5:16PM ; [facility] Post-traumatic stress disorder Establ ished Patient with Kinga Short LISWS 01/17/2024 Last Documented On 4 5:16PM ; [facility] Undifferentiated attention d eficit disorder Established Patient with Kinga Short LISWS 01/17/2024 Last Documented On 4 5:16PM ; [facility] Visit for: screening for disorder Est ablished Patient with Kinga Short LISWS 01/17/2024 Last Documented On 4 5:16PM ; [facility] [Z68.43 - Body mass index [B PA] 50.0-59.9, adult] assessment of body mass index Medical Established Patient with Denny Lomeli CUSTOMER SERVICE ASSISTANT 01/17/2024 Last Documented On 4 7:50PM ; [facility] Attention-deficit hyperactivity disorder Medical Established Patient with Denny Lomeli CUSTOMER SERVICE ASSISTANT 01/17/2024 Last Documented On 4 7:50PM ; [facility] Diabetes Risk Test Score was three score 01/17/2024 Medical Established Patient with Dneny Lomeli CUSTOMER SERVICE ASSISTANT 01/17/2024 Last Documented On 4 7:50PM ; [facility] Visit for: screening for STD Medical Est ablished Patient with Denny Lomeli CUSTOMER SERVICE ASSISTANT 01/17/2024 Last Documented On 4 7:50PM ; [facility] [Z68.32 - Body mass index [B PA] 32.0-32.9, adult] assessment of body mass index Medical Established Patient with Denny Lomeli CUSTOMER SERVICE ASSISTANT 05/10/2023 Last Documented On 3 6:01PM ; [facility] Borderline personality disorder Medical Established Patient with Denny Lomeli CUSTOMER SERVICE ASSISTANT 05/10/2023 Last Documented On 3 6:01PM ; [facility] Screening for diabetes mellitus Medical Established Patient with Denny Lomeli CUSTOMER SERVICE ASSISTANT 05/10/2023 Last Documented On 3 6:01PM ; [facility] Assessment of body mass index Medical Es tablished Patient with Denny Lomeli CUSTOMER SERVICE ASSISTANT 08/12/2022 Last Documented On 2 2:45PM ; [facility] Bipolar affective disorder, current episode manic Telebehavioral Health with Belkisdionna CoffeyVelarde LPCC-S 06/16/2022 Last Documented On 2 3:22PM ; [facility] Bipolar affective disorder, current episode manic Established Patient with Belkis Velarde LPCC-S 06/15/2022 Last Documented On 2 2:28PM ; [facility] Bipolar affective disorder, current episode depressed, severe with psychosis [facility]behavior[facility] with Belkis Velarde [facility]CC-S 06/15/2022 Last Documented On 2 3:29PM ; [facility] Assessment of body mass inde x [Body mass index [BMI] 50.0-59.9, adult] Open Access - Established with Leah Amaya CUSTOMER SERVICE ASSISTANT 06/15/2022 Last Documented On 2 9:36AM ; [facility] Bipolar I disorder, most rec ent episode, manic Open Access - Established with Leah Monique CUSTOMER SERVICE ASSISTANT 06/15/2022 Last Documented On 2 9:36AM ; [facility] Post-traumatic stress disorder Establ ished Patient with Belkis Velarde LPCC-S 06/08/2022 Last Documented On 2 3:20PM ; [facility] No cough Medical Established Patient with Denny Armani CUSTOMER SERVICE ASSISTANT 06/08/2022 Last Documented On 2 4:04PM ; [facility] Z68.43 - Body mass index [BM I] 50.0-59.9, adult Medical Established Patient with Denny Armani CUSTOMER SERVICE ASSISTANT 06/08/2022 Last Documented On 2 4:04PM ; [facility] Borderline personality disor kyree Pt reported hx of sx/dx Established Patient with Belkis Velarde LPCC-S 05/27/2022 Last Documented On 2 4:08PM ; [facility] Assessment of body mass inde x [Body mass index [BMI] 50.0-59.9, adult] Open Access - Established with Leah Monique CUSTOMER SERVICE ASSISTANT 05/27/2022 Last Documented On 2 7:41PM ; [facility] Diabetes Risk Test Score was three score 05/27/2022 Open Access - Established with Leah Monique CUSTOMER SERVICE ASSISTANT 05/27/2022 Last Documented On 2 7:41PM ; [facility] Bipolar I disorder, most rec ent episode, manic Established Patient with Eufemia Mcneil [facility]CC-S 07/15/2021 Last Documented On 1 1:35AM ; [facility] Borderline personality disorder Estab lished Patient with Eufemia Mcneil LPCC-S 07/15/2021 Last Documented On 1 1:35AM ; [facility] Post-traumatic stress disorder Establ ished Patient with Eufemia Mcneil [facility]CC-S 07/15/2021 Last Documented On 1 1:35AM ; [facility] Assessment of visit for: lloyd strange for human immunodeficiency virus Medical Established Patient with Denny Armani CUSTOMER SERVICE ASSISTANT 07/15/2021 Last Documented On 1 2:56PM ; [facility] Nicotine dependence Medical Established Patient with Denny Armani CUSTOMER SERVICE ASSISTANT 07/15/2021 Last Documented On 1 2:56PM ; [facility] Tachycardia Medical Established Patient with Denny Armani CUSTOMER SERVICE ASSISTANT 07/15/2021 Last Documented On 1 2:56PM ; [facility] Z68.43 - Body mass index [BM I] 50.0-59.9, adult Medical Established Patient with Denny Armani CUSTOMER SERVICE ASSISTANT 07/15/2021 Last Documented On 1 2:56PM ; [facility] Bipolar I disorder, most rec ent episode, manic Established Patient with Kinga Short LISWS 06/17/2021 Last Documented On 1 10:17AM ; [facility] Borderline personality disor kyree per patient reported history Established Patient with Kinga Short LISWS 06/17/2021 Last Documented On 1 10:17AM ; [facility] Nicotine dependence Established Patient with Kinga Short LISWS 06/17/2021 Last Documented On 1 10:17AM ; [facility] Post-traumatic stress disorder Establ ished Patient with Kinga Short LISWS 06/17/2021 Last Documented On 1 10:17AM ; [facility] Body mass index Medical Established Patient with Denny Armani CUSTOMER SERVICE ASSISTANT 06/17/2021 Last Documented On 1 5:23PM ; [facility] Morbid obesity Medical Established Patient with Denny Armani CUSTOMER SERVICE ASSISTANT 06/17/2021 Last Documented On 1 5:23PM ; [facility] Nicotine dependence uncomplicated Medica l Established Patient with Denny Armani CUSTOMER SERVICE ASSISTANT 06/17/2021 Last Documented On 1 5:23PM ; [facility] Z68.42 - Body mass index [BM I] 45.0-49.9, adult Medical Established Patient with Denny Armani CUSTOMER SERVICE ASSISTANT 06/17/2021 Last Documented On 1 5:23PM ; [facility] 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 disorders [place] with Teagan zuniga CNP 05/15/2021 Last Documented On 1 7:49AM ; [facility] Mood disorders, NOS per blaze ent reported history Established Patient with Kinga Short LISWS 04/23/2021 Last Documented On 1 7:15PM ; [facility] Post-traumatic stress disorder BH Establ ished Patient with Kinga Short LISWS 04/23/2021 Last Documented On 1 7:15PM ; [facility] Morbid obesity Medical Established Patient with Denny Armani CUSTOMER SERVICE ASSISTANT 04/23/2021 Last Documented On 1 12:31PM ; [facility] Otitis externa Medical Established Patient with Denny Armani CUSTOMER SERVICE ASSISTANT 04/23/2021 Last Documented On 1 12:31PM ; [facility] Z68.42 - Body mass index [BM I] 45.0-49.9, adult Medical Established Patient with Denny Armani CUSTOMER SERVICE ASSISTANT 04/23/2021 Last Documented On 1 12:31PM ; [facility] Post-traumatic stress disorder Establ ished Patient with Kinga Short LISWS 04/01/2021 Last Documented On 1 10:05PM ; [facility] Morbid obesity Medical Established Patient with Denny Armani CUSTOMER SERVICE ASSISTANT 04/01/2021 Last Documented On 1 4:45PM ; [facility] Z68.42 - Body mass index [BM I] 45.0-49.9, adult Medical Established Patient with Denny Armani CUSTOMER SERVICE ASSISTANT 04/01/2021 Last Documented On 1 4:45PM ; [facility] Post-traumatic stress disorder Establ ished Patient with Kinga Short LISWS 03/17/2021 Last Documented On 1 11:59AM ; [facility] Assessment of visit for: lloyd strange for human immunodeficiency virus Medical New Patient with Denny Lomeli CUSTOMER SERVICE ASSISTANT 03/17/2021 Last Documented On 1 4:06PM ; [facility] Diabetes Risk Test Score was one score 03/17/2021 Medical New Patient with Denny Armani CUSTOMER SERVICE ASSISTANT 03/17/2021 Last Documented On 1 4:06PM ; [facility] Hypertension Medical New Patient with Denny doherty CUSTOMER SERVICE ASSISTANT 03/17/2021 Last Documented On 1 4:06PM ; [facility] Morbid obesity Medical New Patient with Denny doherty CUSTOMER SERVICE ASSISTANT 03/17/2021 Last Documented On 1 4:06PM ; [facility] Post-traumatic stress disorder Medical New Patie nt with Denny Lomeli CUSTOMER SERVICE ASSISTANT 03/17/2021 Last Documented On 1 4:06PM ; [facility] Z68.42 - Body mass index [BM I] 45.0-49.9, adult Medical New Patient with Denny Lomeli CUSTOMER SERVICE ASSISTANT 03/17/2021 Last Documented On 1 4:06PM ; [facility] Work Phone: 1(773) 410-954709-26-2024 Progress note* Progress note Date Encounter Last Documented by 07/18/2024 Established Patient Last docu mented on 07/22/2024; 4:15 PM, Sarai MORRIS; [facility] Active Problems & Conditions - F90.9 - Attention-deficit Hyperactivity Disorder - F31.31 - Bipolar I Disorder, Most Recent Episode, Depressed Mild - E11.9 - Diabetes Mellitus Type 2 Without Complication - N94.6 - Dysmenorrhea - F43.10 - Post-traumatic Stress Disorder Subjective [facility] met with patient for mood and [...] agreed to go with her walking. Discussed wtih patient the benefits of seeing a psychiatrist [...] of things, or get along? Very difficult. [facility]09-26-2024 Progress note* Progress note Date Encounter Last Documented by 07/18/2024 Medical Established Patient Last documented on 07/26/2024; 1:56 PM, Denny Lomeli CNP; [facility] Active Problems & Conditions - F90.9 [...] symptoms persist, 1 days, 0 refills - The [facility] [employer] Ultra In Vitro Strip USE ONE TEST [...] BP-Sitting L135/86 mmHg BP Cuff SizeLarge Pulse Rate-Lekspbo751 bpm Respiration Rate18 per min Temp-Oral97.6 F Jzmero13 in Tkcgbu584 lbs Body Mass Index57.2 kg/m2 Body Surface Area2.4 m2 Oxygen Collremmsd08 % Vital Signs: - Systolic blood pressure [...] the next year. Bottom of Document Illustration [facility]09-26-2024 Progress note* Progress note Date Encounter Last Documented by 07/18/2024 Medical Established Patient Last documented on 07/31/2024; 2:09 PM, Denny Lomeli CNP; [facility] Active Problems & Conditions - F90.9 [...] BP-Sitting L135/86 mmHg BP Cuff SizeLarge Pulse Rate-Gawsevc453 bpm Respiration Rate18 per min Temp-Oral97.6 F Heolhc30 in Phvyvx707 lbs Body Mass Index57.2 kg/m2 Body Surface Area2.4 m2 Oxygen Aulbdzqruo16 % Vital Signs: - Systolic blood pressure [...] the next year. Bottom of Document Illustration [facility]09-26-2024 Reason for referral (narrative)* Date Encounter Description Provider Reason for Referral 07/18/24 Established Patient Sarai Aristeo [employer]MER R eferral To Mental Health Team 05/27/22 Established Patient Belkis Syd SOLORZANO CC-S Referral To Mental Health Team 03/17/21 Medical New Patient Denny Lomeli CUSTOMER SERVICE ASSISTANT Refe rral To Mental Health Team [facility] Work Phone: 1(183) 219-999208-22-2024 Evaluation note Includes: Assessments for all patient encounters Findings Encounter Date Attention-deficit hyperactiv ity disorder Established Patient with Kinga Short LISWS 06/13/2024 Last Documented On 4 6:28PM ; [facility] Bipolar I disorder, most rec ent episode, depressed - mild Established Patient with Kinga Short LISWS 06/13/2024 Last Documented On 4 6:28PM ; [facility] Post-traumatic stress disorder Establ ished Patient with Kinga Short LISWS 06/13/2024 Last Documented On 4 6:28PM ; [facility] [E11.9 - Type 2 diabetes gloria litus without complications] type 2 diabetes mellitus Medical Established Patient with Denny Lomeli CUSTOMER SERVICE ASSISTANT 06/13/2024 Last Documented On 4 7:36PM ; [facility] [F41.1 - Generalized anxiety disorder] generalized anxiety disorder Medical Established Patient with Denny Lomeli CUSTOMER SERVICE ASSISTANT 06/13/2024 Last Documented On 4 7:36PM ; [facility] [I10 - Essential (primary) hypertension] essential hypertension Medical Established Patient with Denny Lomeli CUSTOMER SERVICE ASSISTANT 06/13/2024 Last Documented On 4 7:36PM ; [facility] [N94.6 - Dysmenorrhea, unspe cified] dysmenorrhea Medical Established Patient with Denny Lomeli CUSTOMER SERVICE ASSISTANT 06/13/2024 Last Documented On 4 7:36PM ; [facility] [Z68.43 - Body mass index [B PA] 50.0-59.9, adult] assessment of body mass index Medical Established Patient with Denny Lomeli CUSTOMER SERVICE ASSISTANT 06/13/2024 Last Documented On 4 7:36PM ; [facility] Encounter for Immunization Medical Estab lished Patient with Denny Lomeli CUSTOMER SERVICE ASSISTANT 06/13/2024 Last Documented On 4 7:36PM ; [facility] Venipuncture was performed Medical Estab lished Patient with Denny Lomeli CUSTOMER SERVICE ASSISTANT 06/13/2024 Last Documented On 4 7:36PM ; [facility] Attention-deficit hyperactivity disorder Established Patient with Kinga Short LISWS 04/10/2024 Last Documented On 4 10:10AM ; [facility] Bipolar I disorder, most rec ent episode, depressed - mild Established Patient with Kinga Short LISWS 04/10/2024 Last Documented On 4 10:10AM ; [facility] Post-traumatic stress disorder Establ ished Patient with Kinga Short LISWS 04/10/2024 Last Documented On 4 10:10AM ; [facility] [D64.9 - Anemia, unspecified] anemia Med ical Established Patient with Denny Lomeli CUSTOMER SERVICE ASSISTANT 04/10/2024 Last Documented On 4 6:51PM ; [facility] [Z68.43 - Body mass index [B PA] 50.0-59.9, adult] assessment of body mass index Medical Established Patient with Denny Lomeli CUSTOMER SERVICE ASSISTANT 04/10/2024 Last Documented On 4 6:51PM ; [facility] Bipolar affective disorder, current episode depressed, mild Established Patient with Kinga Short LISWS 01/17/2024 Last Documented On 4 5:16PM ; [facility] Post-traumatic stress disorder Establ ished Patient with Kinga Short LISWS 01/17/2024 Last Documented On 4 5:16PM ; [facility] Undifferentiated attention d eficit disorder BH Established Patient with Kinga Bourgeois LISWS 01/17/2024 Last Documented On 4 5:16PM ; [facility] Visit for: screening for disorder BH Est ablished Patient with Kinga Bourgeois LISWS 01/17/2024 Last Documented On 4 5:16PM ; [facility] [Z68.43 - Body mass index [B PA] 50.0-59.9, adult] assessment of body mass index Medical Established Patient with Denny Lomeli CUSTOMER SERVICE ASSISTANT 01/17/2024 Last Documented On 4 7:50PM ; [facility] Attention-deficit hyperactivity disorder Medical Established Patient with Denny Lomeli CUSTOMER SERVICE ASSISTANT 01/17/2024 Last Documented On 4 7:50PM ; [facility] Diabetes Risk Test Score was three score 01/17/2024 Medical Established Patient with Denny Lomeli CUSTOMER SERVICE ASSISTANT 01/17/2024 Last Documented On 4 7:50PM ; [facility] Visit for: screening for STD Medical Est ablished Patient with Denny Lomeli CUSTOMER SERVICE ASSISTANT 01/17/2024 Last Documented On 4 7:50PM ; [facility] [Z68.32 - Body mass index [B PA] 32.0-32.9, adult] assessment of body mass index Medical Established Patient with Denny Lomeli CUSTOMER SERVICE ASSISTANT 05/10/2023 Last Documented On 3 6:01PM ; [facility] Borderline personality disorder Medical Established Patient with Denny Lomeli CUSTOMER SERVICE ASSISTANT 05/10/2023 Last Documented On 3 6:01PM ; [facility] Screening for diabetes mellitus Medical Established Patient with Denny Lomeli CUSTOMER SERVICE ASSISTANT 05/10/2023 Last Documented On 3 6:01PM ; [facility] Assessment of body mass index Medical Es tablished Patient with Denny Lomeli CUSTOMER SERVICE ASSISTANT 08/12/2022 Last Documented On 2 2:45PM ; [facility] Bipolar affective disorder, current episode manic [facility] with Belkis Velarde [facility] 06/16/2022 Last Documented On 2 3:22PM ; [facility] Bipolar affective disorder, current episode manic Established Patient with Belkisdionna Velarde LPCC-S 06/15/2022 Last Documented On 2 2:28PM ; [facility] Bipolar affective disorder, current episode depressed, severe with psychosis [facility] with Belkisdionna Velarde LPCC-S 06/15/2022 Last Documented On 2 3:29PM ; [facility] Assessment of body mass inde x [Body mass index [BMI] 50.0-59.9, adult] Open Access - Established with Leah Monique CUSTOMER SERVICE ASSISTANT 06/15/2022 Last Documented On 2 9:36AM ; [facility] Bipolar I disorder, most rec ent episode, manic Open Access - Established with Leah Monique CUSTOMER SERVICE ASSISTANT 06/15/2022 Last Documented On 2 9:36AM ; [facility] Post-traumatic stress disorder Establ ished Patient with Belkisdionna Velarde LPCC-S 06/08/2022 Last Documented On 2 3:20PM ; [facility] No cough Medical Established Patient with Denny Armani CUSTOMER SERVICE ASSISTANT 06/08/2022 Last Documented On 2 4:04PM ; [facility] Z68.43 - Body mass index [BM I] 50.0-59.9, adult Medical Established Patient with Denny Armani CUSTOMER SERVICE ASSISTANT 06/08/2022 Last Documented On 2 4:04PM ; [facility] Borderline personality disor kyree Pt reported hx of sx/dx Established Patient with Belkisdionna Velarde LPCC-S 05/27/2022 Last Documented On 2 4:08PM ; [facility] Assessment of body mass inde x [Body mass index [BMI] 50.0-59.9, adult] Open Access - Established with Leah Monique CUSTOMER SERVICE ASSISTANT 05/27/2022 Last Documented On 2 7:41PM ; [facility] Diabetes Risk Test Score was three score 05/27/2022 Open Access - Established with Leah Monique CUSTOMER SERVICE ASSISTANT 05/27/2022 Last Documented On 2 7:41PM ; [facility] Bipolar I disorder, most rec ent episode, manic Established Patient with Eufemia Mcneil LPCC-S 07/15/2021 Last Documented On 1 1:35AM ; [facility] Borderline personality disorder Estab lished Patient with Eufemia Mcneil LPCC-S 07/15/2021 Last Documented On 1 1:35AM ; [facility] Post-traumatic stress disorder Establ ished Patient with Eufemia Mcneil LPCC-S 07/15/2021 Last Documented On 1 1:35AM ; [facility] Assessment of visit for: lloyd strange for human immunodeficiency virus Medical Established Patient with Denny Armani CUSTOMER SERVICE ASSISTANT 07/15/2021 Last Documented On 1 2:56PM ; [facility] Nicotine dependence Medical Established Patient with Denny Armani CUSTOMER SERVICE ASSISTANT 07/15/2021 Last Documented On 1 2:56PM ; [facility] Tachycardia Medical Established Patient with Denny Armani CUSTOMER SERVICE ASSISTANT 07/15/2021 Last Documented On 1 2:56PM ; [facility] Z68.43 - Body mass index [BM I] 50.0-59.9, adult Medical Established Patient with Denny Armani CUSTOMER SERVICE ASSISTANT 07/15/2021 Last Documented On 1 2:56PM ; [facility] Bipolar I disorder, most rec ent episode, manic Established Patient with Kinga Short LISWS 06/17/2021 Last Documented On 1 10:17AM ; [facility] Borderline personality disor kyree per patient reported history Established Patient with Kinga Short LISWS 06/17/2021 Last Documented On 1 10:17AM ; [facility] Nicotine dependence Established Patient with Kinga Short LISWS 06/17/2021 Last Documented On 1 10:17AM ; [facility] Post-traumatic stress disorder Establ ished Patient with Kinga Short LISWS 06/17/2021 Last Documented On 1 10:17AM ; [facility] Body mass index Medical Established Patient with Denny Armani CUSTOMER SERVICE ASSISTANT 06/17/2021 Last Documented On 1 5:23PM ; [facility] Morbid obesity Medical Established Patient with Denny Armani CUSTOMER SERVICE ASSISTANT 06/17/2021 Last Documented On 1 5:23PM ; [facility] Nicotine dependence uncomplicated Medica l Established Patient with Denny Armani CUSTOMER SERVICE ASSISTANT 06/17/2021 Last Documented On 1 5:23PM ; [facility] Z68.42 - Body mass index [BM I] 45.0-49.9, adult Medical Established Patient with Denny Armani CUSTOMER SERVICE ASSISTANT 06/17/2021 Last Documented On 1 5:23PM ; [facility] 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 disorders [place] with Teagan zuniga CUSTOMER SERVICE ASSISTANT 05/15/2021 Last Documented On 1 7:49AM ; [facility] Mood disorders, NOS per blaze ent reported history Established Patient with Kinga Short LISWS 04/23/2021 Last Documented On 1 7:15PM ; [facility] Post-traumatic stress disorder Establ ished Patient with Kinga Short LISWS 04/23/2021 Last Documented On 1 7:15PM ; [facility] Morbid obesity Medical Established Patient with Denny Armani CUSTOMER SERVICE ASSISTANT 04/23/2021 Last Documented On 1 12:31PM ; [facility] Otitis externa Medical Established Patient with Denny Armani CUSTOMER SERVICE ASSISTANT 04/23/2021 Last Documented On 1 12:31PM ; [facility] Z68.42 - Body mass index [BM I] 45.0-49.9, adult Medical Established Patient with Denny Armani CUSTOMER SERVICE ASSISTANT 04/23/2021 Last Documented On 1 12:31PM ; [facility] Post-traumatic stress disorder BH Establ ished Patient with Kinga Short LISWS 04/01/2021 Last Documented On 1 10:05PM ; [facility] Morbid obesity Medical Established Patient with Denny Armani CUSTOMER SERVICE ASSISTANT 04/01/2021 Last Documented On 1 4:45PM ; [facility] Z68.42 - Body mass index [BM I] 45.0-49.9, adult Medical Established Patient with Denny Armani CUSTOMER SERVICE ASSISTANT 04/01/2021 Last Documented On 1 4:45PM ; [facility] Post-traumatic stress disorder Establ ished Patient with Kinga Short LISWS 03/17/2021 Last Documented On 1 11:59AM ; [facility] Assessment of visit for: scr eening for human immunodeficiency virus Medical New Patient with Denny Armani CUSTOMER SERVICE ASSISTANT 03/17/2021 Last Documented On 1 4:06PM ; [facility] Diabetes Risk Test Score was one score 03/17/2021 Medical New Patient with Dennyartem Lomeli CUSTOMER SERVICE ASSISTANT 03/17/2021 Last Documented On 1 4:06PM ; [facility] Hypertension Medical New Patient with Dennyartem doherty CUSTOMER SERVICE ASSISTANT 03/17/2021 Last Documented On 1 4:06PM ; [facility] Morbid obesity Medical New Patient with Denny Maryjo zamoraen CUSTOMER SERVICE ASSISTANT 03/17/2021 Last Documented On 1 4:06PM ; [facility] Post-traumatic stress disorder Medical New Patie nt with Dennyartem Lomeli CUSTOMER SERVICE ASSISTANT 03/17/2021 Last Documented On 1 4:06PM ; [facility] Z68.42 - Body mass index [BM I] 45.0-49.9, adult Medical New Patient with Dennyartem Lomeli CUSTOMER SERVICE ASSISTANT 03/17/2021 Last Documented On 1 4:06PM ; [facility] Work Phone: 1(344) 942-613208-22-2024 Evaluation note Includes: Assessments for all patient encounters Findings Encounter Date Attention-deficit hyperactiv ity disorder Established Patient with Kinga Short LISWS 06/13/2024 Last Documented On 4 3:28PM ; [facility] Bipolar I disorder, most rec ent episode, depressed - mild Established Patient with Kinga Short LISWS 06/13/2024 Last Documented On 4 3:28PM ; [facility] Post-traumatic stress disorder Establ ished Patient with Kinga Short LISWS 06/13/2024 Last Documented On 4 3:28PM ; [facility] [E11.9 - Type 2 diabetes gloria litus without complications] type 2 diabetes mellitus Medical Established Patient with Denny Lomeli CUSTOMER SERVICE ASSISTANT 06/13/2024 Last Documented On 4 7:36PM ; [facility] [F41.1 - Generalized anxiety disorder] generalized anxiety disorder Medical Established Patient with Denny Lomeli CUSTOMER SERVICE ASSISTANT 06/13/2024 Last Documented On 4 7:36PM ; [facility] [I10 - Essential (primary) hypertension] essential hypertension Medical Established Patient with Denny Lomeli CUSTOMER SERVICE ASSISTANT 06/13/2024 Last Documented On 4 7:36PM ; [facility] [N94.6 - Dysmenorrhea, unspe cified] dysmenorrhea Medical Established Patient with Denny Lomeli CUSTOMER SERVICE ASSISTANT 06/13/2024 Last Documented On 4 7:36PM ; [facility] [Z68.43 - Body mass index [B PA] 50.0-59.9, adult] assessment of body mass index Medical Established Patient with Denny Lomeli CUSTOMER SERVICE ASSISTANT 06/13/2024 Last Documented On 4 7:36PM ; [facility] Encounter for Immunization Medical Estab lished Patient with Denny Lomeli CUSTOMER SERVICE ASSISTANT 06/13/2024 Last Documented On 4 7:36PM ; [facility] Venipuncture was performed Medical Estab lished Patient with Denny Lomeli CUSTOMER SERVICE ASSISTANT 06/13/2024 Last Documented On 4 7:36PM ; [facility] Attention-deficit hyperactivity disorder Established Patient with Kinga Short LISWS 04/10/2024 Last Documented On 4 10:10AM ; [facility] Bipolar I disorder, most rec ent episode, depressed - mild Established Patient with Kinga Short LISWS 04/10/2024 Last Documented On 4 10:10AM ; [facility] Post-traumatic stress disorder Establ ished Patient with Kinga Short LISWS 04/10/2024 Last Documented On 4 10:10AM ; [facility] [D64.9 - Anemia, unspecified] anemia Med ical Established Patient with Denny Lomeli CUSTOMER SERVICE ASSISTANT 04/10/2024 Last Documented On 4 6:51PM ; [facility] [Z68.43 - Body mass index [B PA] 50.0-59.9, adult] assessment of body mass index Medical Established Patient with Denny Lomeli CUSTOMER SERVICE ASSISTANT 04/10/2024 Last Documented On 4 6:51PM ; [facility] Bipolar affective disorder, current episode depressed, mild Established Patient with Kinga Bourgeois LISWS 01/17/2024 Last Documented On 4 5:16PM ; [facility] Post-traumatic stress disorder Establ ished Patient with Kinga Short LISWS 01/17/2024 Last Documented On 4 5:16PM ; [facility] Undifferentiated attention d eficit disorder Established Patient with Kinga Short LISWS 01/17/2024 Last Documented On 4 5:16PM ; [facility] Visit for: screening for disorder BH Est ablished Patient with Kinga Bourgeois LISWS 01/17/2024 Last Documented On 4 5:16PM ; [facility] [Z68.43 - Body mass index [B PA] 50.0-59.9, adult] assessment of body mass index Medical Established Patient with Denny Lomeli CUSTOMER SERVICE ASSISTANT 01/17/2024 Last Documented On 4 7:50PM ; [facility] Attention-deficit hyperactivity disorder Medical Established Patient with Denny Lomeli CUSTOMER SERVICE ASSISTANT 01/17/2024 Last Documented On 4 7:50PM ; [facility] Diabetes Risk Test Score was three score 01/17/2024 Medical Established Patient with Denny Lomeli CUSTOMER SERVICE ASSISTANT 01/17/2024 Last Documented On 4 7:50PM ; [facility] Visit for: screening for STD Medical Est ablished Patient with Denny Lomeli CUSTOMER SERVICE ASSISTANT 01/17/2024 Last Documented On 4 7:50PM ; [facility] [Z68.32 - Body mass index [B PA] 32.0-32.9, adult] assessment of body mass index Medical Established Patient with Denny Lomeli CUSTOMER SERVICE ASSISTANT 05/10/2023 Last Documented On 3 6:01PM ; [facility] Borderline personality disorder Medical Established Patient with Denny Lomeli CUSTOMER SERVICE ASSISTANT 05/10/2023 Last Documented On 3 6:01PM ; [facility] Screening for diabetes mellitus Medical Established Patient with Dennyartem Lomeli CUSTOMER SERVICE ASSISTANT 05/10/2023 Last Documented On 3 6:01PM ; [facility] Assessment of body mass index Medical Es tablished Patient with Dennyartem Lomeli CUSTOMER SERVICE ASSISTANT 08/12/2022 Last Documented On 2 2:45PM ; [facility] Bipolar affective disorder, current episode manic Telebehavioral Health with Belkis Velarde LPCC-S 06/16/2022 Last Documented On 2 3:22PM ; [facility] Bipolar affective disorder, current episode manic Established Patient with Belkis Velarde LPCC-S 06/15/2022 Last Documented On 2 2:28PM ; [facility] Bipolar affective disorder, current episode depressed, severe with psychosis Telebehavioral Health with Belkis Velarde LPCC-S 06/15/2022 Last Documented On 2 3:29PM ; [facility] Assessment of body mass inde x [Body mass index [BMI] 50.0-59.9, adult] Open Access - Established with Leah Monique CUSTOMER SERVICE ASSISTANT 06/15/2022 Last Documented On 2 9:36AM ; [facility] Bipolar I disorder, most rec ent episode, manic Open Access - Established with Leah Monique CUSTOMER SERVICE ASSISTANT 06/15/2022 Last Documented On 2 9:36AM ; [facility] Post-traumatic stress disorder BH Establ ished Patient with Belkis Velarde LPCC-S 06/08/2022 Last Documented On 2 3:20PM ; [facility] No cough Medical Established Patient with Dennyartem Lomeli CUSTOMER SERVICE ASSISTANT 06/08/2022 Last Documented On 2 4:04PM ; [facility] Z68.43 - Body mass index [BM I] 50.0-59.9, adult Medical Established Patient with Denny Armani CUSTOMER SERVICE ASSISTANT 06/08/2022 Last Documented On 2 4:04PM ; [facility] Borderline personality disor kyree Pt reported hx of sx/dx Established Patient with Belkis Velarde LPCC-S 05/27/2022 Last Documented On 2 4:08PM ; [facility] Assessment of body mass inde x [Body mass index [BMI] 50.0-59.9, adult] Open Access - Established with Leah Monique CUSTOMER SERVICE ASSISTANT 05/27/2022 Last Documented On 2 7:41PM ; [facility] [facility] Diabetes Risk Test Score was three score 05/27/2022 Open Access - Established with Leah Monique CUSTOMER SERVICE ASSISTANT 05/27/2022 Last Documented On 2 7:41PM ; [facility] Bipolar I disorder, most rec ent episode, manic Established [facility]/2021 Last Documented On 1 1:35AM ; [facility] Borderline personality disorder Estab lished Patient [facility] 07/15/2021 Last Documented On 1 1:35AM ; [facility] Post-traumatic stress disorder Establ ished Patient with Eufemia Mcneil [facility] 07/15/2021 Last Documented On 1 1:35AM ; [facility] Assessment of visit for: lloyd mcgillning for human immunodeficiency virus Medical Established Patient with Denny Armani CUSTOMER SERVICE ASSISTANT 07/15/2021 Last Documented On 1 2:56PM ; [facility] Nicotine dependence Medical Established Patient with Denny Armani CUSTOMER SERVICE ASSISTANT 07/15/2021 Last Documented On 1 2:56PM ; [facility] Tachycardia Medical Established Patient with Denny Armani CUSTOMER SERVICE ASSISTANT 07/15/2021 Last Documented On 1 2:56PM ; [facility] Z68.43 - Body mass index [BM I] 50.0-59.9, adult Medical Established Patient with Denny Armani CUSTOMER SERVICE ASSISTANT 07/15/2021 Last Documented On 1 2:56PM ; [facility] Bipolar I disorder, most rec ent episode, manic Established Patient with Kinga Short LISWS 06/17/2021 Last Documented On 1 10:17AM ; [facility] Borderline personality disor kyree per patient reported history Established Patient with Kinga Short LISWS 06/17/2021 Last Documented On 1 10:17AM ; [facility] Nicotine dependence BH Established Patient with Kinga Short LISWS 06/17/2021 Last Documented On 1 10:17AM ; [facility] Post-traumatic stress disorder Establ ished Patient with Kinga Short LISWS 06/17/2021 Last Documented On 1 10:17AM ; [facility] Body mass index Medical Established Patient with Denny Armani CUSTOMER SERVICE ASSISTANT 06/17/2021 Last Documented On 1 5:23PM ; [facility] Morbid obesity Medical Established Patient with Denny Armani CUSTOMER SERVICE ASSISTANT 06/17/2021 Last Documented On 1 5:23PM ; [facility] Nicotine dependence uncomplicated Medica l Established Patient with Denny Armani CUSTOMER SERVICE ASSISTANT 06/17/2021 Last Documented On 1 5:23PM ; [facility] Z68.42 - Body mass index [BM I] 45.0-49.9, adult Medical Established Patient with Denny Armani CUSTOMER SERVICE ASSISTANT 06/17/2021 Last Documented On 1 5:23PM ; [facility] 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 disorders [place] with Teagan zuniga CUSTOMER SERVICE ASSISTANT 05/15/2021 Last Documented On 1 7:49AM ; [facility] Mood disorders, NOS per blaze ent reported history Established Patient with Kinga Short LISWS 04/23/2021 Last Documented On 1 7:15PM ; [facility] Post-traumatic stress disorder Establ ished Patient with Kinga Short LISWS 04/23/2021 Last Documented On 1 7:15PM ; [facility] Morbid obesity Medical Established Patient with Denny Armani CUSTOMER SERVICE ASSISTANT 04/23/2021 Last Documented On 1 12:31PM ; [facility] Otitis externa Medical Established Patient with Denny Armani CUSTOMER SERVICE ASSISTANT 04/23/2021 Last Documented On 1 12:31PM ; [facility] Z68.42 - Body mass index [BM I] 45.0-49.9, adult Medical Established Patient with Denny Armani CUSTOMER SERVICE ASSISTANT 04/23/2021 Last Documented On 1 12:31PM ; [facility] Post-traumatic stress disorder Establ ished Patient with Kinga Short LISWS 04/01/2021 Last Documented On 1 10:05PM ; [facility] Morbid obesity Medical Established Patient with Denny Armani CUSTOMER SERVICE ASSISTANT 04/01/2021 Last Documented On 1 4:45PM ; [facility] Z68.42 - Body mass index [BM I] 45.0-49.9, adult Medical Established Patient with Denny Armani CUSTOMER SERVICE ASSISTANT 04/01/2021 Last Documented On 1 4:45PM ; [facility] Post-traumatic stress disorder Establ ished Patient with Kinga Short LISWS 03/17/2021 Last Documented On 1 11:59AM ; [facility] Assessment of visit for: scr eening for human immunodeficiency virus Medical New Patient with Denny Armani CUSTOMER SERVICE ASSISTANT 03/17/2021 Last Documented On 1 4:06PM ; [facility] Diabetes Risk Test Score was one score 03/17/2021 Medical New Patient with Denny Armani CUSTOMER SERVICE ASSISTANT 03/17/2021 Last Documented On 1 4:06PM ; [facility] Hypertension Medical New Patient with Denny C chas CUSTOMER SERVICE ASSISTANT 03/17/2021 Last Documented On 1 4:06PM ; [facility] Morbid obesity Medical New Patient with Denny C chas CUSTOMER SERVICE ASSISTANT 03/17/2021 Last Documented On 1 4:06PM ; [facility] Post-traumatic stress disorder Medical New Patie nt with Denny Armani CUSTOMER SERVICE ASSISTANT 03/17/2021 Last Documented On 1 4:06PM ; [facility] Z68.42 - Body mass index [BM I] 45.0-49.9, adult Medical New Patient with Denny Armani CUSTOMER SERVICE ASSISTANT 03/17/2021 Last Documented On 1 4:06PM ; [facility] Work Phone: 1(598) 971-155908-22-2024 Progress note* Progress note Date Encounter Last Documented by 06/13/2024 Medical Established Patient Last documented on 06/13/2024; 7:36 PM, Denny Lomeli CNP; [facility] Active Problems & Conditions - F90.9 [...] 3 months ago , has appt with service worker helper but not til october agreeable to progesterone [...] BP-Sitting R151/98 mmHg BP Cuff SizeLarge Pulse Rate-Equcnkl957 bpm Vyydwg66 in Zwaddb141 lbs 9.6 oz Body Mass Index57.9 kg/m2 Body Surface Area2.4 m2 Oxygen Jyaubuwuig91 % - Vitals taken 06/13/2024 05:21 pm [...] Dysmenorrhea, unspecified Outside Diagn Tests/Ultrasound: US Transvaginal ([id number]) Instructions: [place] Slynd 4 MG tablet take [...] Not planning a in the next year. [facility]08-22-2024 Progress note* Progress note Date Encounter Last Documented by 06/13/2024 Established Patient Last docu mented on 06/14/2024; 3:28 PM, Kinga RUDOLPH; [facility] Active Problems & Conditions - F90.9 - Attention-deficit Hyperactivity Disorder - F31.31 - Bipolar I Disorder, Most Recent Episode, Depressed Mild - E11.9 - Diabetes Mellitus Type 2 Without Complication - N94.6 - Dysmenorrhea - F43.10 - Post-traumatic Stress Disorder Chief Complaint The Chief Complaint is: [facility] met with patient to follow-up regarding mood and medications. Patient had requested to meet with a different [facility] in office but was not avialable [...] Reminders - Assess Tobacco Use satisfied 06/13/2024. [facility]06-19-2024 Instructions Includes: Instructions for all patient encounters Education and Decision Aids were provided during visit for: Discussed nutritional needs teach healthy choices including fruits and vegetables Last Documented On 4 4:46PM ; [facility] Patient education about a pr oper diet Last Documented On 4 4:46PM ; [facility] Discussed concerns about exe rcise : promote physical activity Last Documented On 4 4:46PM ; [facility] Not requesting contraception Last Documented On 4 4:46PM ; [facility] offered active and suppo rtive listening and processed current stressors related to getting medications. ~[facility] discussed coping skills and supports to implement in daily routine. ~P discussed progress patient has felt they have made recently and encouraged continued follow-up with providers to address health Last Documented On 4 5:16PM ; [facility] Discussed nutritional needs teach healthy choices including fruits and vegetables Last Documented On 4 7:14PM ; [facility] Patient education about a pr oper diet Last Documented On 4 7:14PM ; [facility] Discussed concerns about exe rcise : promote physical activity Last Documented On 4 7:14PM ; [facility] Not requesting contraception Last Documented On 4 7:14PM ; [facility] Discussed nutritional needs teach healthy choices including fruits and vegetables Last Documented On 3 5:15PM ; [facility] Patient education about a pr oper diet Last Documented On 3 5:15PM ; [facility] Discussed concerns about exe rcise : promote physical activity Last Documented On 3 5:15PM ; [facility] Discussed nutritional needs teach healthy choices including fruits and vegetables Last Documented On 2 1:42PM ; [facility] Patient education about a pr oper diet Last Documented On 2 1:42PM ; [facility] Discussed concerns about exe rcise : promote physical activity Last Documented On 2 1:42PM ; [facility] active listening and supportive feedback; normalized emotions and feelings, also provided pt time to process any current stressors. ~Promoted and encouraged follow-through with scheduling psychiatric services Last Documented On 2 3:21PM ; [facility] provided supportive, empa thic listening and reflective feedback. ~Explored, encouraged, and supported the pt to discuss current sx/mood, assess risk for harm/need, coping mechanisms, support network and safety planning. ~Supported pt's plan to f/up with Dr. Carney, as planned at [place], [place]. ~Encouraged pt to use safety plan, if needed to ensure she remains safe Last Documented On 2 2:27PM ; [facility] Discussed nutritional needs teach healthy choices including fruits and vegetables Last Documented On 2 3:20PM ; [facility] Patient education about a pr oper diet Last Documented On 2 3:20PM ; [facility] Discussed concerns about exe rcise : promote physical activity ~ ~Will restart trazodone and prazosin ~ ~Patient is planning to have brother stay with her for a few days for emotional support ~ ~Follow up with PCP at next scheduled visit ~ ~Call psychiatrist office to schedule appt ~ ~Call counselor Last Documented On 2 9:35AM ; [facility] Provided supportive listenin g and empathic feedback; encouraged, explored, and supported the pt as she processed current symptoms, Issues, and concerns. ~Discussed past tx and explored current needs/options. Acknowledged and validated pt's thoughts and emotions. ~Explored coping mechanisms and support network; utilized opportunity for safety planning; promoted seeking positive support and seeking help, as needed Last Documented On 2 3:28PM ; [facility] provided active listenin g, support and helped pt process though current symptoms and stressor(s). Discussed and explored past effectiveness of medication; identified objectives and future goals; promoted use of healthy coping mechanisms, and self-care practices Last Documented On 2 3:19PM ; [facility] Reviewed side effects and Ri sks/Benefits analysis Last Documented On 2 3:19PM ; [facility] Discussed nutritional needs teach healthy choices including fruits and vegetables Last Documented On 2 3:15PM ; [facility] Patient education about a pr oper diet Last Documented On 2 3:15PM ; [facility] Discussed concerns about exe rcise : promote physical activity Last Documented On 2 3:15PM ; [facility] introduced pt to HPWO in tegrated model of care ~[facility] offered active listening and supportive feedback; normalized emotions and feelings, also provided pt time to process any current stressors ~[facility] discussed potential benefits of counseling and supported re-engaging, as needed. ~[facility] encouraged pt to continue to make time to implement self-care regimen and use coping methods, as needed Last Documented On 2 4:07PM ; [facility] Discussed nutritional needs teach healthy choices including fruits and vegetables Last Documented On 2 3:15PM ; [facility] Patient education about a pr oper diet Last Documented On 2 3:15PM ; [facility] Inquiry and counseling about medication administration and compliance Last Documented On 2 7:37PM ; [facility] Discussed concerns about exe rcise : promote physical activity Last Documented On 2 3:15PM ; [facility] Patient goals discussed Last Documented On 2 7:37PM ; [facility] Ansewred pt's questions re B orderlline Personality D/O and Bipolar D/O raised by psychiatrist at [place]. ~Validated and normalized patient?s feelings while assisting to process recent events Last Documented On 1 1:33AM ; [facility] Discussed nutritional needs teach healthy choices including fruits and vegetables Last Documented On 1 2:04PM ; [facility] Patient education about a pr oper diet Last Documented On 1 2:04PM ; [facility] Discussed concerns about exe rcise : promote physical activity Last Documented On 1 2:04PM ; [facility] provided active listenin g, support and helped patient process through current symptoms and stressors with ongoing mental health concerns and medication changes. ~[facility] discussed coping skills and supports that [...] ER Last Documented On 1 10:17AM ; [facility] Patient education about a pr oper diet Last Documented On 1 5:17PM ; [facility] Patient education about meal planning Last Documented On 1 5:17PM ; [facility] Education about changing eat ing habits Last Documented On 1 5:17PM ; [facility] Patient education about high fiber diet Last Documented On 1 5:17PM ; [facility] Patient education about low fat diet Last Documented On 1 5:17PM ; [facility] Patient education about low cholesterol diet Last Documented On 1 5:17PM ; [facility] Patient education about low carbohydrate diet Last Documented On 1 5:17PM ; [facility] Patient education about high protein diet Last Documented On 1 5:17PM ; [facility] offered active and suppo rtive listening, normalized emotions and feelings, and processed current stressors. ~[facility] discussed resources for finding a counselor and provided list of local resources. ~P discussed patients coping skills and supports and encouraged patient to continue to implement. ~P reminded patient of crisis resources should they be needed Last Documented On 7:15PM ; [facility] Discussed nutritional needs teach healthy choices including fruits and vegetables Last Documented On 11:38AM ; [facility] Patient education about a pr oper diet Last Documented On 11:38AM ; [facility] Patient education about a pr oper diet Last Documented On 12:19PM ; [facility] Patient education about meal planning Last Documented On 1 12:19PM ; [facility] Education about changing eat ing habits Last Documented On 12:19PM ; [facility] Patient education about high fiber diet Last Documented On 1 12:19PM ; [facility] Patient education about low fat diet Last Documented On 12:19PM ; [facility] Patient education about low cholesterol diet Last Documented On 12:19PM ; [facility] Patient education about low carbohydrate diet Last Documented On 1 12:19PM ; [facility] Patient education about high protein diet Last Documented On 1 12:19PM ; [facility] Discussed concerns about exe rcise : promote physical activity Last Documented On 11:38AM ; [facility] provided active listenin g, support and helped patient process through current symptoms and stressors related to family conflict. ~[facility] discussed coping skills and supports with patient that can be implemented and reminded patient of ways to access additional resources. ~[facility] discussed crisis resources and plan. Patient has crisis resources still available should they be needed Last Documented On 1 7:04PM ; [facility] Discussed nutritional needs teach healthy choices including fruits and vegetables Last Documented On 1 3:57PM ; [facility] Patient education about a pr oper diet Last Documented On 1 3:57PM ; [facility] Discussed concerns about exe rcise : promote physical activity Last Documented On 1 3:57PM ; [facility] integrated model of care. [facility] and PCP reassured patient of not sharing information with anyone unless she has signed a release for us to do so. ~P provided active listening, support and helped patient process through current symptoms and stressors. ~P discussed establishing counseling and psychiatry. P discussed EMDR therapy and ways to find provider who does this type of therapy. ~[facility] discussed crisis resources should mood worsen, [facility] provided text hotline number for crisis. P reviewed crisis plan with patient and patient is able to contact positive supports and family when feeling down Last Documented On 1 11:46AM ; [facility] Discussed nutritional needs teach healthy choices including fruits and vegetables Last Documented On 1 2:11PM ; [facility] Patient education about a pr oper diet Last Documented On 1 2:11PM ; [facility] Discussed concerns about exe rcise : promote physical activity Last Documented On 1 2:11PM ; [facility] Work Phone: 1(411) 976-261806-19-2024 Evaluation note Includes: Assessments for all patient encounters Findings Encounter Date [D64.9 - Anemia, unspecified] anemia Med ical Established Patient with Denny Lomeli CUSTOMER SERVICE ASSISTANT 04/10/2024 Last Documented On 4 6:51PM ; [facility] [Z68.43 - Body mass index [B PA] 50.0-59.9, adult] assessment of body mass index Medical Established Patient with Denny Lomeli SCOTT 04/10/2024 Last Documented On 4 6:51PM ; [facility] Bipolar affective disorder, current episode depressed, mild BH Established Patient with Kinga Short LISWS 01/17/2024 Last Documented On 4 5:16PM ; [facility] Post-traumatic stress disorder BH Establ ished Patient with Kinga Short LISWS 01/17/2024 Last Documented On 4 5:16PM ; [facility] Undifferentiated attention d eficit disorder BH Established Patient with Kinga Short LISWS 01/17/2024 Last Documented On 4 5:16PM ; [facility] Visit for: screening for disorder BH Est ablished Patient with Kinga Bourgeois LISWS 01/17/2024 Last Documented On 4 5:16PM ; [facility] [Z68.43 - Body mass index [B PA] 50.0-59.9, adult] assessment of body mass index Medical Established Patient with Denny Lomeli CUSTOMER SERVICE ASSISTANT 01/17/2024 Last Documented On 4 7:50PM ; [facility] Attention-deficit hyperactivity disorder Medical Established Patient with Denny Lomeli CUSTOMER SERVICE ASSISTANT 01/17/2024 Last Documented On 4 7:50PM ; [facility] Diabetes Risk Test Score was three score 01/17/2024 Medical Established Patient with Denny Lomeli CUSTOMER SERVICE ASSISTANT 01/17/2024 Last Documented On 4 7:50PM ; [facility] Visit for: screening for STD Medical Est ablished Patient with Denny Lomeli CUSTOMER SERVICE ASSISTANT 01/17/2024 Last Documented On 4 7:50PM ; [facility] [Z68.32 - Body mass index [B PA] 32.0-32.9, adult] assessment of body mass index Medical Established Patient with Denny Lomeli CUSTOMER SERVICE ASSISTANT 05/10/2023 Last Documented On 3 6:01PM ; [facility] Borderline personality disorder Medical Established Patient with Denny Lomeli CUSTOMER SERVICE ASSISTANT 05/10/2023 Last Documented On 3 6:01PM ; [facility] Screening for diabetes mellitus Medical Established Patient with Denny Lomeli CUSTOMER SERVICE ASSISTANT 05/10/2023 Last Documented On 3 6:01PM ; [facility] Assessment of body mass index Medical Es tablished Patient with Denny Lomeli CUSTOMER SERVICE ASSISTANT 08/12/2022 Last Documented On 2 2:45PM ; [facility] Bipolar affective disorder, current episode manic [facility] with Belkis Velarde [facility]CC-S 06/16/2022 Last Documented On 2 3:22PM ; [facility] Bipolar affective disorder, current episode manic Established Patient with Belkisdionna Velarde LPCC-S 06/15/2022 Last Documented On 2 2:28PM ; [facility] Bipolar affective disorder, current episode depressed, severe with psychosis [facility] with Belkisdionna Velarde LPCC-S 06/15/2022 Last Documented On 2 3:29PM ; [facility] Assessment of body mass inde x [Body mass index [BMI] 50.0-59.9, adult] Open Access - Established with Leah Monique CUSTOMER SERVICE ASSISTANT 06/15/2022 Last Documented On 2 9:36AM ; [facility] Bipolar I disorder, most rec ent episode, manic Open Access - Established with Leah Monique CUSTOMER SERVICE ASSISTANT 06/15/2022 Last Documented On 2 9:36AM ; [facility] Post-traumatic stress disorder Establ ished Patient with Belkisdionna Velarde LPCC-S 06/08/2022 Last Documented On 2 3:20PM ; [facility] No cough Medical Established Patient with Denny Armani CUSTOMER SERVICE ASSISTANT 06/08/2022 Last Documented On 2 4:04PM ; [facility] Z68.43 - Body mass index [BM I] 50.0-59.9, adult Medical Established Patient with Denny Armani CUSTOMER SERVICE ASSISTANT 06/08/2022 Last Documented On 2 4:04PM ; [facility] Borderline personality disor kyree Pt reported hx of sx/dx Established Patient with Belkisdionna CoffeyVelarde LPCC-S 05/27/2022 Last Documented On 2 4:08PM ; [facility] Assessment of body mass inde x [Body mass index [BMI] 50.0-59.9, adult] Open Access - Established with Leah Monique CUSTOMER SERVICE ASSISTANT 05/27/2022 Last Documented On 2 7:41PM ; [facility] Diabetes Risk Test Score was three score 05/27/2022 Open Access - Established with Leah Monique CUSTOMER SERVICE ASSISTANT 05/27/2022 Last Documented On 2 7:41PM ; [facility] Bipolar I disorder, most rec ent episode, manic Established Patient with Eufemia Mcneil LPCC-S 07/15/2021 Last Documented On 1 1:35AM ; [facility] Borderline personality disorder Estab lished Patient with Eufemia Mcneil LPCC-S 07/15/2021 Last Documented On 1 1:35AM ; [facility] Post-traumatic stress disorder Establ ished Patient with Eufemia Mcneil LPCC-S 07/15/2021 Last Documented On 1 1:35AM ; [facility] Assessment of visit for: lloyd mcgillning for human immunodeficiency virus Medical Established Patient with Denny Armani CUSTOMER SERVICE ASSISTANT 07/15/2021 Last Documented On 1 2:56PM ; [facility] Nicotine dependence Medical Established Patient with Denny Armani CUSTOMER SERVICE ASSISTANT 07/15/2021 Last Documented On 1 2:56PM ; [facility] Tachycardia Medical Established Patient with Denny Armani CUSTOMER SERVICE ASSISTANT 07/15/2021 Last Documented On 1 2:56PM ; [facility] Z68.43 - Body mass index [BM I] 50.0-59.9, adult Medical Established Patient with Denny Armani CUSTOMER SERVICE ASSISTANT 07/15/2021 Last Documented On 1 2:56PM ; [facility] Bipolar I disorder, most rec ent episode, manic Established Patient with Kinga Short LISWS 06/17/2021 Last Documented On 1 10:17AM ; [facility] Borderline personality disor kyree per patient reported history Established Patient with Kinga Short LISWS 06/17/2021 Last Documented On 1 10:17AM ; [facility] Nicotine dependence Established Patient with Kinga Short LISWS 06/17/2021 Last Documented On 1 10:17AM ; [facility] Post-traumatic stress disorder Establ ished Patient with Kinga Short LISWS 06/17/2021 Last Documented On 1 10:17AM ; [facility] Body mass index Medical Established Patient with Denny Armani CUSTOMER SERVICE ASSISTANT 06/17/2021 Last Documented On 1 5:23PM ; [facility] Morbid obesity Medical Established Patient with Denny Armani CUSTOMER SERVICE ASSISTANT 06/17/2021 Last Documented On 1 5:23PM ; [facility] Nicotine dependence uncomplicated Medica l Established Patient with Denny Amrani CUSTOMER SERVICE ASSISTANT 06/17/2021 Last Documented On 1 5:23PM ; [facility] Z68.42 - Body mass index [BM I] 45.0-49.9, adult Medical Established Patient with Denny Armani CUSTOMER SERVICE ASSISTANT 06/17/2021 Last Documented On 1 5:23PM ; [facility] 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 disorders [place] with Teagan zuniga CUSTOMER SERVICE ASSISTANT 05/15/2021 Last Documented On 1 7:49AM ; [facility] Mood disorders, NOS per blaze ent reported history Established Patient with Kinga Short LISWS 04/23/2021 Last Documented On 1 7:15PM ; [facility] Post-traumatic stress disorder Establ ished Patient with Kinga Short LISWS 04/23/2021 Last Documented On 1 7:15PM ; [facility] Morbid obesity Medical Established Patient with Denny Armani CUSTOMER SERVICE ASSISTANT 04/23/2021 Last Documented On 1 12:31PM ; [facility] Otitis externa Medical Established Patient with Denny Armani CUSTOMER SERVICE ASSISTANT 04/23/2021 Last Documented On 1 12:31PM ; [facility] Z68.42 - Body mass index [BM I] 45.0-49.9, adult Medical Established Patient with Denny Armani CUSTOMER SERVICE ASSISTANT 04/23/2021 Last Documented On 1 12:31PM ; [facility] Post-traumatic stress disorder Establ ished Patient with Kinga Short LISWS 04/01/2021 Last Documented On 1 10:05PM ; [facility] Morbid obesity Medical Established Patient with Denny Armani CUSTOMER SERVICE ASSISTANT 04/01/2021 Last Documented On 1 4:45PM ; [facility] Z68.42 - Body mass index [BM I] 45.0-49.9, adult Medical Established Patient with Denny Armani CUSTOMER SERVICE ASSISTANT 04/01/2021 Last Documented On 1 4:45PM ; [facility] Post-traumatic stress disorder Establ ished Patient with Kinga Short LISWS 03/17/2021 Last Documented On 1 11:59AM ; [facility] Assessment of visit for: lloyd strange for human immunodeficiency virus Medical New Patient with Denny Armani CUSTOMER SERVICE ASSISTANT 03/17/2021 Last Documented On 1 4:06PM ; [facility] Diabetes Risk Test Score was one score 03/17/2021 Medical New Patient with Denny Armani CUSTOMER SERVICE ASSISTANT 03/17/2021 Last Documented On 1 4:06PM ; [facility] Hypertension Medical New Patient with Denny C chas CUSTOMER SERVICE ASSISTANT 03/17/2021 Last Documented On 1 4:06PM ; [facility] Morbid obesity Medical New Patient with Denny C chas CUSTOMER SERVICE ASSISTANT 03/17/2021 Last Documented On 1 4:06PM ; [facility] Post-traumatic stress disorder Medical New Patie nt with Denny Armani CUSTOMER SERVICE ASSISTANT 03/17/2021 Last Documented On 1 4:06PM ; [facility] Z68.42 - Body mass index [BM I] 45.0-49.9, adult Medical New Patient with Denny Armani CUSTOMER SERVICE ASSISTANT 03/17/2021 Last Documented On 1 4:06PM ; [facility] Work Phone: [phone]) 837-332806-19-2024 Evaluation note Includes: Assessments for all patient encounters Findings Encounter Date Attention-deficit hyperactiv ity disorder Established Patient with Kinga Short LISWS 04/10/2024 Last Documented On 4 10:10AM ; [facility] Bipolar I disorder, most rec ent episode, depressed - mild Established Patient with Kinga Short LISWS 04/10/2024 Last Documented On 4 10:10AM ; [facility] Post-traumatic stress disorder BH Establ ished Patient with Kinga Short LISWS 04/10/2024 Last Documented On 4 10:10AM ; [facility] [D64.9 - Anemia, unspecified] anemia Med ical Established Patient with Dennyartem Lomeli CUSTOMER SERVICE ASSISTANT 04/10/2024 Last Documented On 4 6:51PM ; [facility] [Z68.43 - Body mass index [B PA] 50.0-59.9, adult] assessment of body mass index Medical Established Patient with Denny Lomeli CUSTOMER SERVICE ASSISTANT 04/10/2024 Last Documented On 4 6:51PM ; [facility] Bipolar affective disorder, current episode depressed, mild Established Patient with Kinga Short LISWS 01/17/2024 Last Documented On 4 5:16PM ; [facility] Post-traumatic stress disorder BH Establ ished Patient with Kinga Short LISWS 01/17/2024 Last Documented On 4 5:16PM ; [facility] Undifferentiated attention d eficit disorder Established Patient with Kinga Short LISWS 01/17/2024 Last Documented On 4 5:16PM ; [facility] Visit for: screening for disorder Est ablished Patient with Kinga Short LISWS 01/17/2024 Last Documented On 4 5:16PM ; [facility] [Z68.43 - Body mass index [B PA] 50.0-59.9, adult] assessment of body mass index Medical Established Patient with Denny Lomeli CUSTOMER SERVICE ASSISTANT 01/17/2024 Last Documented On 4 7:50PM ; [facility] Attention-deficit hyperactivity disorder Medical Established Patient with Dennyartem Landonen CUSTOMER SERVICE ASSISTANT 01/17/2024 Last Documented On 4 7:50PM ; [facility] Diabetes Risk Test Score was three score 01/17/2024 Medical Established Patient with Dennyartem Lomeli CUSTOMER SERVICE ASSISTANT 01/17/2024 Last Documented On 4 7:50PM ; [facility] Visit for: screening for STD Medical Est ablished Patient with Denny Lomeli CUSTOMER SERVICE ASSISTANT 01/17/2024 Last Documented On 4 7:50PM ; [facility] [Z68.32 - Body mass index [B PA] 32.0-32.9, adult] assessment of body mass index Medical Established Patient with Denny Lomeli CUSTOMER SERVICE ASSISTANT 05/10/2023 Last Documented On 3 6:01PM ; [facility] Borderline personality disorder Medical Established Patient with Denny Lomeli CUSTOMER SERVICE ASSISTANT 05/10/2023 Last Documented On 3 6:01PM ; [facility] Screening for diabetes mellitus Medical Established Patient with Denny Lomeli CUSTOMER SERVICE ASSISTANT 05/10/2023 Last Documented On 3 6:01PM ; [facility] Assessment of body mass index Medical Es tablished Patient with Denny Lomeli CUSTOMER SERVICE ASSISTANT 08/12/2022 Last Documented On 2 2:45PM ; [facility] Bipolar affective disorder, current episode manic [facility] with Belkis Velarde LPCC-S 06/16/2022 Last Documented On 2 3:22PM ; [facility] Bipolar affective disorder, current episode manic Established Patient with Belkis Velarde LPCC-S 06/15/2022 Last Documented On 2 2:28PM ; [facility] Bipolar affective disorder, current episode depressed, severe with psychosis [facility] with Belkis Velarde LPCC-S 06/15/2022 Last Documented On 2 3:29PM ; [facility] Assessment of body mass inde x [Body mass index [BMI] 50.0-59.9, adult] Open Access - Established with Leah Monique CUSTOMER SERVICE ASSISTANT 06/15/2022 Last Documented On 2 9:36AM ; [facility] Bipolar I disorder, most rec ent episode, manic Open Access - Established with Leah Monique CUSTOMER SERVICE ASSISTANT 06/15/2022 Last Documented On 2 9:36AM ; [facility] Post-traumatic stress disorder BH Establ ished Patient with Belkis Velarde LPCC-S 06/08/2022 Last Documented On 2 3:20PM ; [facility] No cough Medical Established Patient with Denny Armani CUSTOMER SERVICE ASSISTANT 06/08/2022 Last Documented On 2 4:04PM ; [facility] Z68.43 - Body mass index [BM I] 50.0-59.9, adult Medical Established Patient with Denny Armani CUSTOMER SERVICE ASSISTANT 06/08/2022 Last Documented On 2 4:04PM ; [facility] Borderline personality disor kyree Pt reported hx of sx/dx Established Patient with Belkis Velarde LPCC-S 05/27/2022 Last Documented On 2 4:08PM ; [facility] Assessment of body mass inde x [Body mass index [BMI] 50.0-59.9, adult] Open Access - Established with Leah Amaya [facility] 05/27/2022 Last Documented On 2 7:41PM ; [facility] Diabetes Risk Test Score was three score 05/27/2022 Open Access - Established with Leah Monique [facility] 05/27/2022 Last Documented On 2 7:41PM ; [facility] Bipolar I disorder, most rec ent episode, manic Established Patient with Eufemia Mcneil LPCC-S 07/15/2021 Last Documented On 1 1:35AM ; [facility] Borderline personality disorder Estab lished Patient with Eufemia Mcneil LPCC-S 07/15/2021 Last Documented On 1 1:35AM ; [facility] Post-traumatic stress disorder Establ ished Patient with Eufemia Mcneil LPCC-S 07/15/2021 Last Documented On 1 1:35AM ; [facility] Assessment of visit for: scr eening for human immunodeficiency virus Medical Established Patient with Dennyartem Landonen CUSTOMER SERVICE ASSISTANT 07/15/2021 Last Documented On 1 2:56PM ; [facility] Nicotine dependence Medical Established Patient with Denny Armani CUSTOMER SERVICE ASSISTANT 07/15/2021 Last Documented On 1 2:56PM ; [facility] Tachycardia Medical Established Patient with Denny Armani CUSTOMER SERVICE ASSISTANT 07/15/2021 Last Documented On 1 2:56PM ; [facility] Z68.43 - Body mass index [BM I] 50.0-59.9, adult Medical Established Patient with Dennyartem Lomeli CUSTOMER SERVICE ASSISTANT 07/15/2021 Last Documented On 1 2:56PM ; [facility] Bipolar I disorder, most rec ent episode, manic Established Patient with Kinga Short LISWS 06/17/2021 Last Documented On 1 10:17AM ; [facility] Borderline personality disor kyree per patient reported history Established Patient with Kinga Short LISWS 06/17/2021 Last Documented On 1 10:17AM ; [facility] Nicotine dependence Established Patient with Kinga Short LISWS 06/17/2021 Last Documented On 1 10:17AM ; [facility] Post-traumatic stress disorder Establ ished Patient with Kinga Short LISWS 06/17/2021 Last Documented On 1 10:17AM ; [facility] Body mass index Medical Established Patient with Denny Armani CUSTOMER SERVICE ASSISTANT 06/17/2021 Last Documented On 1 5:23PM ; [facility] Morbid obesity Medical Established Patient with Denny Armani CUSTOMER SERVICE ASSISTANT 06/17/2021 Last Documented On 1 5:23PM ; [facility] Nicotine dependence uncomplicated Medica l Established Patient with Denny Armani CUSTOMER SERVICE ASSISTANT 06/17/2021 Last Documented On 1 5:23PM ; [facility] Z68.42 - Body mass index [BM I] 45.0-49.9, adult Medical Established Patient with Denny Armani CUSTOMER SERVICE ASSISTANT 06/17/2021 Last Documented On 1 5:23PM ; [facility] 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 disorders [place] with Teagan zuniga CUSTOMER SERVICE ASSISTANT 05/15/2021 Last Documented On 1 7:49AM ; [facility] Mood disorders, NOS per blaze ent reported history Established Patient with Kinga Short LISWS 04/23/2021 Last Documented On 1 7:15PM ; [facility] Post-traumatic stress disorder Establ ished Patient with Kinga Short LISWS 04/23/2021 Last Documented On 1 7:15PM ; [facility] Morbid obesity Medical Established Patient with Denny Armani CUSTOMER SERVICE ASSISTANT 04/23/2021 Last Documented On 1 12:31PM ; [facility] Otitis externa Medical Established Patient with Denny Armani CUSTOMER SERVICE ASSISTANT 04/23/2021 Last Documented On 1 12:31PM ; [facility] Z68.42 - Body mass index [BM I] 45.0-49.9, adult Medical Established Patient with Denny Armani CUSTOMER SERVICE ASSISTANT 04/23/2021 Last Documented On 1 12:31PM ; [facility] Post-traumatic stress disorder BH Establ ished Patient with Kinga Short LISWS 04/01/2021 Last Documented On 1 10:05PM ; [facility] Morbid obesity Medical Established Patient with Denny Armani CUSTOMER SERVICE ASSISTANT 04/01/2021 Last Documented On 1 4:45PM ; [facility] Z68.42 - Body mass index [BM I] 45.0-49.9, adult Medical Established Patient with Denny Armani CUSTOMER SERVICE ASSISTANT 04/01/2021 Last Documented On 1 4:45PM ; [facility] Post-traumatic stress disorder Establ ished Patient with Kinga Short LISWS 03/17/2021 Last Documented On 1 11:59AM ; [facility] Assessment of visit for: lloyd mcgillning for human immunodeficiency virus Medical New Patient with Dennyartem Loemli CUSTOMER SERVICE ASSISTANT 03/17/2021 Last Documented On 1 4:06PM ; [facility] Diabetes Risk Test Score was one score 03/17/2021 Medical New Patient with Denny Armani CUSTOMER SERVICE ASSISTANT 03/17/2021 Last Documented On 1 4:06PM ; [facility] Hypertension Medical New Patient with Denny Maryjo zamoraen CUSTOMER SERVICE ASSISTANT 03/17/2021 Last Documented On 1 4:06PM ; [facility] Morbid obesity Medical New Patient with Denny C chas CUSTOMER SERVICE ASSISTANT 03/17/2021 Last Documented On 1 4:06PM ; [facility] Post-traumatic stress disorder Medical New Patie nt with Denny Lomeli CUSTOMER SERVICE ASSISTANT 03/17/2021 Last Documented On 1 4:06PM ; [facility] Z68.42 - Body mass index [BM I] 45.0-49.9, adult Medical New Patient with Denny Lomeli CUSTOMER SERVICE ASSISTANT 03/17/2021 Last Documented On 1 4:06PM ; [facility] Work Phone: 1(223) 283-580806-19-2024 History general Narrative - Reported Includes: Medical History in patient's chart Description Last Updated POTS 04/10/2024 Last Documented On 4 6:51PM ; [facility] 0 previous live (s) 01/17/2024 Last Documented On 4 7:50PM ; [facility] Previously 1 time(s) 01/17/2024 Last Documented On 4 7:50PM ; [facility] Recent immunization for flu 01/17/2024 Last Documented On 4 7:50PM ; [facility] Has sex without a condom 06/08/2022 Last Documented On 2 4:04PM ; [facility] Not planning to have a baby in the next 12 months 06/08/2022 Last Documented On 2 4:04PM ; [facility] sexually transmitted infection status known 06/08/2022 Last Documented On 2 4:04PM ; [facility] No previous hospitalizations 06/08/2022 Last Documented On 2 4:04PM ; [facility] Chronic illness 05/17/2021 Last Documented On 1 7:49AM ; [facility] Exposure to COVID-19 04/23/2021 Last Documented On 1 12:31PM ; [facility] History of gynecologic disorder 03/17/20 21 Last Documented On 1 4:06PM ; [facility] History of Polycystic Ovarian Syndrome ( PCOS) 03/17/2021 Last Documented On 1 4:06PM ; [facility] History of anxiety disorder NOS 03/17/20 21 Last Documented On 1 4:06PM ; [facility] History of migraine headache 03/17/2021 Last Documented On 1 4:06PM ; [facility] History of psychiatric disorders biopola r disorder 03/17/2021 Last Documented On 1 4:06PM ; [facility] Work Phone: 1(957) 206-402706-19-2024 History general Narrative - Reported Includes: Medical History in patient's chart Description Last Updated POTS 04/10/2024 Last Documented On 4 6:51PM ; [facility] 0 previous live (s) 01/17/2024 Last Documented On 4 7:50PM ; [facility] Previously 1 time(s) 01/17/2024 Last Documented On 4 7:50PM ; [facility] Recent immunization for flu 01/17/2024 Last Documented On 4 7:50PM ; [facility] Has sex without a condom 06/08/2022 Last Documented On 2 4:04PM ; [facility] Not planning to have a baby in the next 12 months 06/08/2022 Last Documented On 2 4:04PM ; [facility] sexually transmitted infection status known 06/08/2022 Last Documented On 2 4:04PM ; [facility] No previous hospitalizations 06/08/2022 Last Documented On 2 4:04PM ; [facility] Chronic illness 05/17/2021 Last Documented On 1 7:49AM ; [facility] Exposure to COVID-19 04/23/2021 Last Documented On 1 12:31PM ; [facility] History of gynecologic disorder 03/17/20 21 Last Documented On 1 4:06PM ; [facility] History of Polycystic Ovarian Syndrome ( PCOS) 03/17/2021 Last Documented On 1 4:06PM ; [facility] History of anxiety disorder NOS 03/17/20 21 Last Documented On 1 4:06PM ; [facility] History of migraine headache 03/17/2021 Last Documented On 1 4:06PM ; [facility] History of psychiatric disorders biopola r disorder 03/17/2021 Last Documented On 1 4:06PM ; [facility] Work Phone: 1(142) 175-635506-19-2024 History general Narrative - Reported Includes: Medical History in patient's chart Description Last Updated POTS 04/10/2024 Last Documented On 4 6:51PM ; [facility] 0 previous live (s) 01/17/2024 Last Documented On 4 7:50PM ; [facility] Previously 1 time(s) 01/17/2024 Last Documented On 4 7:50PM ; [facility] Recent immunization for flu 01/17/2024 Last Documented On 4 7:50PM ; [facility] Has sex without a condom 06/08/2022 Last Documented On 2 4:04PM ; [facility] Not planning to have a baby in the next 12 months 06/08/2022 Last Documented On 2 4:04PM ; [facility] sexually transmitted infection status known 06/08/2022 Last Documented On 2 4:04PM ; [facility] No previous hospitalizations 06/08/2022 Last Documented On 2 4:04PM ; [facility] Chronic illness 05/17/2021 Last Documented On 1 7:49AM ; [facility] Exposure to COVID-19 04/23/2021 Last Documented On 1 12:31PM ; [facility] History of gynecologic disorder 03/17/20 21 Last Documented On 1 4:06PM ; [facility] History of Polycystic Ovarian Syndrome ( PCOS) 03/17/2021 Last Documented On 1 4:06PM ; [facility] History of anxiety disorder NOS 03/17/20 21 Last Documented On 1 4:06PM ; [facility] History of migraine headache 03/17/2021 Last Documented On 1 4:06PM ; [facility] History of psychiatric disorders biopola r disorder 03/17/2021 Last Documented On 1 4:06PM ; [facility] Work Phone: 1([phone]) 375-471206-19-2024 History general Narrative - Reported Includes: Medical History in patient's chart Description Last Updated POTS 04/10/2024 Last Documented On 4 6:51PM ; [facility] 0 previous live (s) 01/17/2024 Last Documented On 4 7:50PM ; [facility] Previously 1 time(s) 01/17/2024 Last Documented On 4 7:50PM ; [facility] Recent immunization for flu 01/17/2024 Last Documented On 4 7:50PM ; [facility] Has sex without a condom 06/08/2022 Last Documented On 2 4:04PM ; [facility] Not planning to have a baby in the next 12 months 06/08/2022 Last Documented On 2 4:04PM ; [facility] sexually transmitted infection status known 06/08/2022 Last Documented On 2 4:04PM ; [facility] No previous hospitalizations 06/08/2022 Last Documented On 2 4:04PM ; [facility] Chronic illness 05/17/2021 Last Documented On 1 7:49AM ; [facility] Exposure to COVID-19 04/23/2021 Last Documented On 1 12:31PM ; [facility] History of gynecologic disorder 03/17/20 21 Last Documented On 1 4:06PM ; [facility] History of Polycystic Ovarian Syndrome ( PCOS) 03/17/2021 Last Documented On 1 4:06PM ; [facility] History of anxiety disorder NOS 03/17/20 21 Last Documented On 1 4:06PM ; [facility] History of migraine headache 03/17/2021 Last Documented On 1 4:06PM ; [facility] History of psychiatric disorders biopola r disorder 03/17/2021 Last Documented On 1 4:06PM ; [facility] Work Phone: 1(741) 682-401606-19-2024 Progress note* Progress note Date Encounter Last Documented by 04/10/2024 Medical Established Patient Last documented on 04/10/2024; 6:51 PM, Denny Lomeli CNP; [facility] Active Problems & Conditions - F90.9 [...] has tried to contact Dr. Donato in [place], but has not heard back. Patient provided with phone number for [facility]. Patient here for 2 month med check. [...] f/u . 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 reports no longer doing counseling r/t [...] BP-Sitting L161/94 mmHg BP Cuff SizeLarge Pulse Rate-Cpronjf24 bpm Ufvjla82 in Sfxvur094 lbs Body Mass Index54.6 kg/m2 Body Surface Area2.4 m2 Oxygen Madxnhteya23 % - Vitals taken 04/10/2024 04:50 pm BP-Sitting L137/89 mmHg BP Cuff SizeLarge Pulse Rate-Zibrfbo04 bpm Vital Signs: - Systolic blood pressure [...] month med check EndCited # given to [facility] , call prashant kong appt german . labs german to further check on anemia. Care Team - Denny Lomeli CNP Health Reminders - Assess BMI satisfied 04/10/2024. - Assess Tobacco Use satisfied 04/10/2024. - Follow Up Plan BMI Management satisfied 04/10/2024. User Defined 1 Not planning a in the next year. [facility]06-19-2024 Progress note* Progress note Date Encounter Last Documented by 04/10/2024 Established Patient Last docu mented on 04/11/2024; 10:10 AM, Kinga RUDOLPH; [facility] Active Problems & Conditions - F90.9 - Attention-deficit Hyperactivity Disorder - F31.31 - Bipolar I Disorder, Most Recent Episode, Depressed Mild - F43.10 - Post-traumatic Stress Disorder Chief Complaint The Chief Complaint is: [facility] met with patient to follow-up regarding [...] medications. Collaborated with patient and provider: Counseling/Education BHP offered active and supportive listening and processed current stressors. BHP discussed coping skills and supports that can be implemented to manage increased anxiety and stressors. BHP discussed potential of resuming counseling, even if for monthly visits to process ongoing stressors. BHP encouraged patient to follow-up on referrals as discussed with PCP. Plan P to attempt to follow-up with patient [...] of things, or get along? Somewhat difficult. [facility]04-02-2024 Progress note* Progress note Date Encounter Last Documented by 01/23/2024 Chart Update Last documented on 01/30/2024; 9:32 AM, Denny Lomeli CNP; [facility] Active Problems & Conditions - F90.9 [...] MG Oral Tablet AM and PM per [facility] in [place], 30 days, 0 refills - MiraLax 17 [...] 01/17/2024 Care Team - Denny Lomeli CNP [facility]03-27-2024 Evaluation note Includes: Assessments for all patient encounters Findings Encounter Date Bipolar affective disorder, current episode depressed, mild Established Patient with Kinga Short LISWS 01/17/2024 Last Documented On 4 7:46PM ; [facility] Post-traumatic stress disorder Establ ished Patient with Kinga Short LISWS 01/17/2024 Last Documented On 4 7:46PM ; [facility] Undifferentiated attention d eficit disorder Established Patient with Kinga Short LISWS 01/17/2024 Last Documented On 4 7:46PM ; [facility] Visit for: screening for disorder BH Est ablished Patient with Kinga Short LISWS 01/17/2024 Last Documented On 4 7:46PM ; [facility] [Z68.43 - Body mass index [B PA] 50.0-59.9, adult] assessment of body mass index Medical Established Patient with Denny Lomeli CUSTOMER SERVICE ASSISTANT 01/17/2024 Last Documented On 4 7:50PM ; [facility] Attention-deficit hyperactivity disorder Medical Established Patient with Denny Lomeli CUSTOMER SERVICE ASSISTANT 01/17/2024 Last Documented On 4 7:50PM ; [facility] Diabetes Risk Test Score was three score 01/17/2024 Medical Established Patient with Denny Lomeli CUSTOMER SERVICE ASSISTANT 01/17/2024 Last Documented On 4 7:50PM ; [facility] Visit for: screening for STD Medical Est ablished Patient with Denny Lomeli CUSTOMER SERVICE ASSISTANT 01/17/2024 Last Documented On 4 7:50PM ; [facility] [Z68.32 - Body mass index [B PA] 32.0-32.9, adult] assessment of body mass index Medical Established Patient with Denny Lomeli CUSTOMER SERVICE ASSISTANT 05/10/2023 Last Documented On 3 6:01PM ; [facility] Borderline personality disorder Medical Established Patient with Denny Lomeli CUSTOMER SERVICE ASSISTANT 05/10/2023 Last Documented On 3 6:01PM ; [facility] Screening for diabetes mellitus Medical Established Patient with Denny Lomeli CUSTOMER SERVICE ASSISTANT 05/10/2023 Last Documented On 3 6:01PM ; [facility] Assessment of body mass index Medical Es tablished Patient with Denny Lomeli CUSTOMER SERVICE ASSISTANT 08/12/2022 Last Documented On 2 2:45PM ; [facility] Bipolar affective disorder, current episode manic [facility] 06/16/2022 Last Documented On 2 3:22PM ; [facility] Bipolar affective disorder, current episode manic BH Established Patient with Belkis Velarde [facility] 06/15/2022 Last Documented On 2 2:28PM ; [facility] Bipolar affective disorder, current episode depressed, severe with psychosis Telebehavioral Health with Belkisdionna Velarde [facility] 06/15/2022 Last Documented On 2 3:29PM ; [facility] Assessment of body mass inde x [Body mass index [BMI] 50.0-59.9, adult] Open Access - Established with Leah Monique CUSTOMER SERVICE ASSISTANT 06/15/2022 Last Documented On 2 9:36AM ; [facility] Bipolar I disorder, most rec ent episode, manic Open Access - Established with Leah Monique CUSTOMER SERVICE ASSISTANT 06/15/2022 Last Documented On 2 9:36AM ; [facility] Post-traumatic stress disorder Establ ished Patient with Belkisdionna Velarde LP[facility]-S 06/08/2022 Last Documented On 2 3:20PM ; [facility] No cough Medical Established Patient with Denny Armani CUSTOMER SERVICE ASSISTANT 06/08/2022 Last Documented On 2 4:04PM ; [facility] Z68.43 - Body mass index [BM I] 50.0-59.9, adult Medical Established Patient with Denny Armani CUSTOMER SERVICE ASSISTANT 06/08/2022 Last Documented On 2 4:04PM ; [facility] Borderline personality disor kyree Pt reported hx of sx/dx Established Patient with Belkisdionna Velarde LPCC-S 05/27/2022 Last Documented On 2 4:08PM ; [facility] Assessment of body mass inde x [Body mass index [BMI] 50.0-59.9, adult] Open Access - Established with Leah Monique CUSTOMER SERVICE ASSISTANT 05/27/2022 Last Documented On 2 7:41PM ; [facility] Diabetes Risk Test Score was three score 05/27/2022 Open Access - Established with Leah Monique CUSTOMER SERVICE ASSISTANT 05/27/2022 Last Documented On 2 7:41PM ; [facility] Bipolar I disorder, most rec ent episode, manic Established Patient with Eufemia Mcneil LPCC-S 07/15/2021 Last Documented On 1 1:35AM ; [facility] Borderline personality disorder Estab lished Patient with Eufemia Mcneil LPCC-S 07/15/2021 Last Documented On 1 1:35AM ; [facility] Post-traumatic stress disorder Establ ished Patient with Eufemia Mcneil LPCC-S 07/15/2021 Last Documented On 1 1:35AM ; [facility] Assessment of visit for: lloyd mcgillning for human immunodeficiency virus Medical Established Patient with Denny Armani CUSTOMER SERVICE ASSISTANT 07/15/2021 Last Documented On 1 2:56PM ; [facility] Nicotine dependence Medical Established Patient with Denny Armani CUSTOMER SERVICE ASSISTANT 07/15/2021 Last Documented On 1 2:56PM ; [facility] Tachycardia Medical Established Patient with Denny Armani CUSTOMER SERVICE ASSISTANT 07/15/2021 Last Documented On 1 2:56PM ; [facility] Z68.43 - Body mass index [BM I] 50.0-59.9, adult Medical Established Patient with Denny Armani CUSTOMER SERVICE ASSISTANT 07/15/2021 Last Documented On 1 2:56PM ; [facility] Bipolar I disorder, most rec ent episode, manic Established Patient with Kinga Short LISWS 06/17/2021 Last Documented On 1 10:17AM ; [facility] Borderline personality disor kyree per patient reported history Established Patient with Kinga Short LISWS 06/17/2021 Last Documented On 1 10:17AM ; [facility] Nicotine dependence Established Patient with Kinga Short LISWS 06/17/2021 Last Documented On 1 10:17AM ; [facility] Post-traumatic stress disorder Establ ished Patient with Kinga Short LISWS 06/17/2021 Last Documented On 1 10:17AM ; [facility] Body mass index Medical Established Patient with Denny Armani CUSTOMER SERVICE ASSISTANT 06/17/2021 Last Documented On 1 5:23PM ; [facility] Morbid obesity Medical Established Patient with Denny Ramani CUSTOMER SERVICE ASSISTANT 06/17/2021 Last Documented On 1 5:23PM ; [facility] Nicotine dependence uncomplicated Medica l Established Patient with Denny Armani CUSTOMER SERVICE ASSISTANT 06/17/2021 Last Documented On 1 5:23PM ; [facility] Z68.42 - Body mass index [BM I] 45.0-49.9, adult Medical Established Patient with Denny Armani CUSTOMER SERVICE ASSISTANT 06/17/2021 Last Documented On 1 5:23PM ; [facility] 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 disorders [place] with Teagan Danielsarlyn zuniga CUSTOMER SERVICE ASSISTANT 05/15/2021 Last Documented On 1 7:49AM ; [facility] Mood disorders, NOS per blaze ent reported history Established Patient with Kinga Short LISWS 04/23/2021 Last Documented On 1 7:15PM ; [facility] Post-traumatic stress disorder Establ ished Patient with Kinga Short LISWS 04/23/2021 Last Documented On 1 7:15PM ; [facility] Morbid obesity Medical Established Patient with Denny Armani CUSTOMER SERVICE ASSISTANT 04/23/2021 Last Documented On 1 12:31PM ; [facility] Otitis externa Medical Established Patient with Denny Armani CUSTOMER SERVICE ASSISTANT 04/23/2021 Last Documented On 1 12:31PM ; [facility] Z68.42 - Body mass index [BM I] 45.0-49.9, adult Medical Established Patient with Denny Armani CUSTOMER SERVICE ASSISTANT 04/23/2021 Last Documented On 1 12:31PM ; [facility] Post-traumatic stress disorder Establ ished Patient with Kinga Short LISWS 04/01/2021 Last Documented On 1 10:05PM ; [facility] Morbid obesity Medical Established Patient with Denny Armani CUSTOMER SERVICE ASSISTANT 04/01/2021 Last Documented On 1 4:45PM ; [facility] Z68.42 - Body mass index [BM I] 45.0-49.9, adult Medical Established Patient with Denny Armani CUSTOMER SERVICE ASSISTANT 04/01/2021 Last Documented On 1 4:45PM ; [facility] Post-traumatic stress disorder Establ ished Patient with Kinga Short LISWS 03/17/2021 Last Documented On 1 11:59AM ; [facility] Assessment of visit for: scr eening for human immunodeficiency virus Medical New Patient with Denny Lomeli CUSTOMER SERVICE ASSISTANT 03/17/2021 Last Documented On 1 4:06PM ; [facility] Diabetes Risk Test Score was one score 03/17/2021 Medical New Patient with Denny Lomeli CUSTOMER SERVICE ASSISTANT 03/17/2021 Last Documented On 1 4:06PM ; [facility] Hypertension Medical New Patient with Dennyartem doherty CUSTOMER SERVICE ASSISTANT 03/17/2021 Last Documented On 1 4:06PM ; [facility] Morbid obesity Medical New Patient with Denny Maryjo doherty CUSTOMER SERVICE ASSISTANT 03/17/2021 Last Documented On 1 4:06PM ; [facility] Post-traumatic stress disorder Medical New Patie nt with Denny Lomeli CUSTOMER SERVICE ASSISTANT 03/17/2021 Last Documented On 1 4:06PM ; [facility] Z68.42 - Body mass index [BM I] 45.0-49.9, adult Medical New Patient with Denny Lomeli CUSTOMER SERVICE ASSISTANT 03/17/2021 Last Documented On 1 4:06PM ; [facility] Work Phone: [phone]) 649-821403-27-2024 Evaluation note Includes: Assessments for all patient encounters Findings Encounter Date Bipolar affective disorder, current episode depressed, mild Established Patient with Kinga Short LISWS 01/17/2024 Last Documented On 4 5:16PM ; [facility] Post-traumatic stress disorder Establ ished Patient with Kinga Short LISWS 01/17/2024 Last Documented On 4 5:16PM ; [facility] Undifferentiated attention d eficit disorder Established Patient with Kinga Short LISWS 01/17/2024 Last Documented On 4 5:16PM ; [facility] Visit for: screening for disorder Est ablished Patient with Kinga Short LISWS 01/17/2024 Last Documented On 4 5:16PM ; [facility] [Z68.43 - Body mass index [B PA] 50.0-59.9, adult] assessment of body mass index Medical Established Patient with Denny Lomeli CUSTOMER SERVICE ASSISTANT 01/17/2024 Last Documented On 4 7:50PM ; [facility] Attention-deficit hyperactivity disorder Medical Established Patient with Denny Lomeli CUSTOMER SERVICE ASSISTANT 01/17/2024 Last Documented On 4 7:50PM ; [facility] Diabetes Risk Test Score was three score 01/17/2024 Medical Established Patient with Denny Lomeli CUSTOMER SERVICE ASSISTANT 01/17/2024 Last Documented On 4 7:50PM ; [facility] Visit for: screening for STD Medical Est ablished Patient with Denny Lomeli CUSTOMER SERVICE ASSISTANT 01/17/2024 Last Documented On 4 7:50PM ; [facility] [Z68.32 - Body mass index [B PA] 32.0-32.9, adult] assessment of body mass index Medical Established Patient with Denny Lomeli CUSTOMER SERVICE ASSISTANT 05/10/2023 Last Documented On 3 6:01PM ; [facility] Borderline personality disorder Medical Established Patient with Denny Lomeli CUSTOMER SERVICE ASSISTANT 05/10/2023 Last Documented On 3 6:01PM ; [facility] Screening for diabetes mellitus Medical Established Patient with Denny Lomeli CUSTOMER SERVICE ASSISTANT 05/10/2023 Last Documented On 3 6:01PM ; [facility] Assessment of body mass index Medical Es tablished Patient with Denny Lomeli CUSTOMER SERVICE ASSISTANT 08/12/2022 Last Documented On 2 2:45PM ; [facility] Bipolar affective disorder, current episode manic Telebehavioral Health with Belkisdionna Velarde LPCC-S 06/16/2022 Last Documented On 2 3:22PM ; [facility] Bipolar affective disorder, current episode manic Established Patient with Belkisdionna CoffeyVelarde LPCC-S 06/15/2022 Last Documented On 2 2:28PM ; [facility] Bipolar affective disorder, current episode depressed, severe with psychosis Telebehavioral Health with Belkisdionna Velarde LPCC-S 06/15/2022 Last Documented On 2 3:29PM ; [facility] Assessment of body mass inde x [Body mass index [BMI] 50.0-59.9, adult] Open Access - Established with Leah Monique CUSTOMER SERVICE ASSISTANT 06/15/2022 Last Documented On 2 9:36AM ; [facility] Bipolar I disorder, most rec ent episode, manic Open Access - Established with Leah Monique CUSTOMER SERVICE ASSISTANT 06/15/2022 Last Documented On 2 9:36AM ; [facility] Post-traumatic stress disorder BH Establ ished Patient with Belkis Velarde LPCC-S 06/08/2022 Last Documented On 2 3:20PM ; [facility] No cough Medical Established Patient with Denny Armani CUSTOMER SERVICE ASSISTANT 06/08/2022 Last Documented On 2 4:04PM ; [facility] Z68.43 - Body mass index [BM I] 50.0-59.9, adult Medical Established Patient with Denny Armani CUSTOMER SERVICE ASSISTANT 06/08/2022 Last Documented On 2 4:04PM ; [facility] Borderline personality disor kyree Pt reported hx of sx/dx BH Established Patient with Belkis Velarde LPCC-S 05/27/2022 Last Documented On 2 4:08PM ; [facility] Assessment of body mass inde x [Body mass index [BMI] 50.0-59.9, adult] Open Access - Established with Leah Amaya CNP 05/27/2022 Last Documented On 2 7:41PM ; [facility] Diabetes Risk Test Score was three score 05/27/2022 Open Access - Established with Leah Monique CUSTOMER SERVICE ASSISTANT 05/27/2022 Last Documented On 2 7:41PM ; [facility] Bipolar I disorder, most rec ent episode, manic BH Established Patient with Eufemia Mcneil LPCC-S 07/15/2021 Last Documented On 1 1:35AM ; [facility] Borderline personality disorder BH Estab lished Patient with Eufemia Mcneil LPCC-S 07/15/2021 Last Documented On 1 1:35AM ; [facility] Post-traumatic stress disorder Establ ished Patient with Eufemia Mcneil LPCC-S 07/15/2021 Last Documented On 1 1:35AM ; [facility] Assessment of visit for: scr eening for human immunodeficiency virus Medical Established Patient with Denny Armani CUSTOMER SERVICE ASSISTANT 07/15/2021 Last Documented On 1 2:56PM ; [facility] Nicotine dependence Medical Established Patient with Denny Armani CUSTOMER SERVICE ASSISTANT 07/15/2021 Last Documented On 1 2:56PM ; [facility] Tachycardia Medical Established Patient with Denny Armani CUSTOMER SERVICE ASSISTANT 07/15/2021 Last Documented On 1 2:56PM ; [facility] Z68.43 - Body mass index [BM I] 50.0-59.9, adult Medical Established Patient with Denny Armani CUSTOMER SERVICE ASSISTANT 07/15/2021 Last Documented On 1 2:56PM ; [facility] Bipolar I disorder, most rec ent episode, manic Established Patient with Kinga Short LISWS 06/17/2021 Last Documented On 1 10:17AM ; [facility] Borderline personality disor kyree per patient reported history Established Patient with Kinga Short LISWS 06/17/2021 Last Documented On 1 10:17AM ; [facility] Nicotine dependence Established Patient with Kinga Short LISWS 06/17/2021 Last Documented On 1 10:17AM ; [facility] Post-traumatic stress disorder Establ ished Patient with Kinga Short LISWS 06/17/2021 Last Documented On 1 10:17AM ; [facility] Body mass index Medical Established Patient with Denny Armani CUSTOMER SERVICE ASSISTANT 06/17/2021 Last Documented On 1 5:23PM ; [facility] Morbid obesity Medical Established Patient with Denny Armani CUSTOMER SERVICE ASSISTANT 06/17/2021 Last Documented On 1 5:23PM ; [facility] Nicotine dependence uncomplicated Medica l Established Patient with Denny Armani CUSTOMER SERVICE ASSISTANT 06/17/2021 Last Documented On 1 5:23PM ; [facility] Z68.42 - Body mass index [BM I] 45.0-49.9, adult Medical Established Patient with Denny Armani CUSTOMER SERVICE ASSISTANT 06/17/2021 Last Documented On 1 5:23PM ; [facility] 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 disorders [place] with Teagan zuniga CUSTOMER SERVICE ASSISTANT 05/15/2021 Last Documented On 1 7:49AM ; [facility] Mood disorders, NOS per blaze ent reported history Established Patient with Kinga Short LISWS 04/23/2021 Last Documented On 1 7:15PM ; [facility] Post-traumatic stress disorder Establ ished Patient with Kinga Short LISWS 04/23/2021 Last Documented On 1 7:15PM ; [facility] Morbid obesity Medical Established Patient with Denny Armani CUSTOMER SERVICE ASSISTANT 04/23/2021 Last Documented On 1 12:31PM ; [facility] Otitis externa Medical Established Patient with Denny Armani CUSTOMER SERVICE ASSISTANT 04/23/2021 Last Documented On 1 12:31PM ; [facility] Z68.42 - Body mass index [BM I] 45.0-49.9, adult Medical Established Patient with Denny Armani CUSTOMER SERVICE ASSISTANT 04/23/2021 Last Documented On 1 12:31PM ; [facility] Post-traumatic stress disorder Establ ished Patient with Kinga Short LISWS 04/01/2021 Last Documented On 1 10:05PM ; [facility] Morbid obesity Medical Established Patient with Denny Armani CUSTOMER SERVICE ASSISTANT 04/01/2021 Last Documented On 1 4:45PM ; [facility] Z68.42 - Body mass index [BM I] 45.0-49.9, adult Medical Established Patient with Denny Armani CUSTOMER SERVICE ASSISTANT 04/01/2021 Last Documented On 1 4:45PM ; [facility] Post-traumatic stress disorder Establ ished Patient with Kinga Short LISWS 03/17/2021 Last Documented On 1 11:59AM ; [facility] Assessment of visit for: scr eening for human immunodeficiency virus Medical New Patient with Denny Lomeli CUSTOMER SERVICE ASSISTANT 03/17/2021 Last Documented On 1 4:06PM ; [facility] Diabetes Risk Test Score was one score 03/17/2021 Medical New Patient with Denny Lomeli CUSTOMER SERVICE ASSISTANT 03/17/2021 Last Documented On 1 4:06PM ; [facility] Hypertension Medical New Patient with Denny doherty CUSTOMER SERVICE ASSISTANT 03/17/2021 Last Documented On 1 4:06PM ; [facility] Morbid obesity Medical New Patient with Denny Maryjo doherty CUSTOMER SERVICE ASSISTANT 03/17/2021 Last Documented On 1 4:06PM ; [facility] Post-traumatic stress disorder Medical New Patie nt with Denny Lomeli CUSTOMER SERVICE ASSISTANT 03/17/2021 Last Documented On 1 4:06PM ; [facility] Z68.42 - Body mass index [BM I] 45.0-49.9, adult Medical New Patient with Denny Lomeli CUSTOMER SERVICE ASSISTANT 03/17/2021 Last Documented On 1 4:06PM ; [facility] Work Phone: [phone]) 654-912203-27-2024 Evaluation note Includes: Assessments for all patient encounters Findings Encounter Date Bipolar affective disorder, current episode depressed, mild Established Patient with Kinga Short LISWS 01/17/2024 Last Documented On 4 5:16PM ; [facility] Post-traumatic stress disorder BH Establ ished Patient with Kinga Short LISWS 01/17/2024 Last Documented On 4 5:16PM ; [facility] Undifferentiated attention d eficit disorder Established Patient with Kinga Short LISWS 01/17/2024 Last Documented On 4 5:16PM ; [facility] Visit for: screening for disorder BH Est ablished Patient with Kinga Short LISWS 01/17/2024 Last Documented On 4 5:16PM ; [facility] [Z68.43 - Body mass index [B PA] 50.0-59.9, adult] assessment of body mass index Medical Established Patient with Dennyartem Lomeli CUSTOMER SERVICE ASSISTANT 01/17/2024 Last Documented On 4 7:50PM ; [facility] Attention-deficit hyperactivity disorder Medical Established Patient with Denny Lomeli CUSTOMER SERVICE ASSISTANT 01/17/2024 Last Documented On 4 7:50PM ; [facility] Diabetes Risk Test Score was three score 01/17/2024 Medical Established Patient with Denny Lomeli CUSTOMER SERVICE ASSISTANT 01/17/2024 Last Documented On 4 7:50PM ; [facility] Visit for: screening for STD Medical Est ablished Patient with Denny Lomeli CUSTOMER SERVICE ASSISTANT 01/17/2024 Last Documented On 4 7:50PM ; [facility] [Z68.32 - Body mass index [B PA] 32.0-32.9, adult] assessment of body mass index Medical Established Patient with Denny Lomeli CUSTOMER SERVICE ASSISTANT 05/10/2023 Last Documented On 3 6:01PM ; [facility] Borderline personality disorder Medical Established Patient with Denny Lomeli CUSTOMER SERVICE ASSISTANT 05/10/2023 Last Documented On 3 6:01PM ; [facility] Screening for diabetes mellitus Medical Established Patient with Denny Lomeli CUSTOMER SERVICE ASSISTANT 05/10/2023 Last Documented On 3 6:01PM ; [facility] Assessment of body mass index Medical Es tablished Patient with Denny Lomeli CUSTOMER SERVICE ASSISTANT 08/12/2022 Last Documented On 2 2:45PM ; [facility] Bipolar affective disorder, current episode manic [facility] 06/16/2022 Last Documented On 2 3:22PM ; [facility] Bipolar affective disorder, current episode manic Established Patient with Belkis Coffeyerson LPCC-S 06/15/2022 Last Documented On 2 2:28PM ; [facility] Bipolar affective disorder, current episode depressed, severe with psychosis Telebehavioral Health with Belkis Coffeyerson LPCC-S 06/15/2022 Last Documented On 2 3:29PM ; [facility] Assessment of body mass inde x [Body mass index [BMI] 50.0-59.9, adult] Open Access - Established with Leah Monique CUSTOMER SERVICE ASSISTANT 06/15/2022 Last Documented On 2 9:36AM ; [facility] Bipolar I disorder, most rec ent episode, manic Open Access - Established with Leah Monique CUSTOMER SERVICE ASSISTANT 06/15/2022 Last Documented On 2 9:36AM ; [facility] Post-traumatic stress disorder BH Establ ished Patient with Belkis Velarde LPCC-S 06/08/2022 Last Documented On 2 3:20PM ; [facility] No cough Medical Established Patient with Denny Armani CUSTOMER SERVICE ASSISTANT 06/08/2022 Last Documented On 2 4:04PM ; [facility] Z68.43 - Body mass index [BM I] 50.0-59.9, adult Medical Established Patient with Denny Armani CUSTOMER SERVICE ASSISTANT 06/08/2022 Last Documented On 2 4:04PM ; [facility] Borderline personality disor kyree Pt reported hx of sx/dx BH Established Patient with Belkisdionna CoffeyVelarde LPCC-S 05/27/2022 Last Documented On 2 4:08PM ; [facility] Assessment of body mass inde x [Body mass index [BMI] 50.0-59.9, adult] Open Access - Established with Leah Monique CUSTOMER SERVICE ASSISTANT 05/27/2022 Last Documented On 2 7:41PM ; [facility] Diabetes Risk Test Score was three score 05/27/2022 Open Access - Established with Leah Monique CUSTOMER SERVICE ASSISTANT 05/27/2022 Last Documented On 2 7:41PM ; [facility] Bipolar I disorder, most rec ent episode, manic BH Established Patient with Eufemia Mcneil LPCC-S 07/15/2021 Last Documented On 1 1:35AM ; [facility] Borderline personality disorder BH Estab lished Patient with Eufemia Mcneil LPCC-S 07/15/2021 Last Documented On 1 1:35AM ; [facility] Post-traumatic stress disorder BH Establ ished Patient with Eufemia Mcneil LPCC-S 07/15/2021 Last Documented On 1 1:35AM ; [facility] Assessment of visit for: lloyd strange for human immunodeficiency virus Medical Established Patient with Denny Armani CUSTOMER SERVICE ASSISTANT 07/15/2021 Last Documented On 1 2:56PM ; [facility] Nicotine dependence Medical Established Patient with Denny Armani CUSTOMER SERVICE ASSISTANT 07/15/2021 Last Documented On 1 2:56PM ; [facility] Tachycardia Medical Established Patient with Denny Armani CUSTOMER SERVICE ASSISTANT 07/15/2021 Last Documented On 1 2:56PM ; [facility] Z68.43 - Body mass index [BM I] 50.0-59.9, adult Medical Established Patient with Denny Armani CUSTOMER SERVICE ASSISTANT 07/15/2021 Last Documented On 1 2:56PM ; [facility] Bipolar I disorder, most rec ent episode, manic Established Patient with Kinga Short LISWS 06/17/2021 Last Documented On 1 10:17AM ; [facility] Borderline personality disor kyree per patient reported history Established Patient with Kinga Short LISWS 06/17/2021 Last Documented On 1 10:17AM ; [facility] Nicotine dependence Established Patient with Kinga Short LISWS 06/17/2021 Last Documented On 1 10:17AM ; [facility] Post-traumatic stress disorder BH Establ ished Patient with Kinga Short LISWS 06/17/2021 Last Documented On 1 10:17AM ; [facility] Body mass index Medical Established Patient with Denny Armani CUSTOMER SERVICE ASSISTANT 06/17/2021 Last Documented On 1 5:23PM ; [facility] Morbid obesity Medical Established Patient with Denny Armani CUSTOMER SERVICE ASSISTANT 06/17/2021 Last Documented On 1 5:23PM ; [facility] Nicotine dependence uncomplicated Medica l Established Patient with Denny Armani CUSTOMER SERVICE ASSISTANT 06/17/2021 Last Documented On 1 5:23PM ; [facility] Z68.42 - Body mass index [BM I] 45.0-49.9, adult Medical Established Patient with Denny Armani CUSTOMER SERVICE ASSISTANT 06/17/2021 Last Documented On 1 5:23PM ; [facility] 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 disorders [place] with Teagan zuniga CUSTOMER SERVICE ASSISTANT 05/15/2021 Last Documented On 1 7:49AM ; [facility] Mood disorders, NOS per blaze ent reported history Established Patient with Kinga Short LISWS 04/23/2021 Last Documented On 1 7:15PM ; [facility] Post-traumatic stress disorder BH Establ ished Patient with Kinga Short LISWS 04/23/2021 Last Documented On 1 7:15PM ; [facility] Morbid obesity Medical Established Patient with Denny Armani CUSTOMER SERVICE ASSISTANT 04/23/2021 Last Documented On 1 12:31PM ; [facility] Otitis externa Medical Established Patient with Denny Armani CUSTOMER SERVICE ASSISTANT 04/23/2021 Last Documented On 1 12:31PM ; [facility] Z68.42 - Body mass index [BM I] 45.0-49.9, adult Medical Established Patient with Denny Armani CUSTOMER SERVICE ASSISTANT 04/23/2021 Last Documented On 1 12:31PM ; [facility] Post-traumatic stress disorder Establ ished Patient with Kinga Short LISWS 04/01/2021 Last Documented On 1 10:05PM ; [facility] Morbid obesity Medical Established Patient with Denny Armani CUSTOMER SERVICE ASSISTANT 04/01/2021 Last Documented On 1 4:45PM ; [facility] Z68.42 - Body mass index [BM I] 45.0-49.9, adult Medical Established Patient with Denny Armani CUSTOMER SERVICE ASSISTANT 04/01/2021 Last Documented On 1 4:45PM ; [facility] Post-traumatic stress disorder Establ ished Patient with Kinga Short LISWS 03/17/2021 Last Documented On 1 11:59AM ; [facility] Assessment of visit for: scr eening for human immunodeficiency virus Medical New Patient with Denny Armani CUSTOMER SERVICE ASSISTANT 03/17/2021 Last Documented On 1 4:06PM ; [facility] Diabetes Risk Test Score was one score 03/17/2021 Medical New Patient with Denny Lomeli CUSTOMER SERVICE ASSISTANT 03/17/2021 Last Documented On 1 4:06PM ; [facility] Hypertension Medical New Patient with Denny doherty CUSTOMER SERVICE ASSISTANT 03/17/2021 Last Documented On 1 4:06PM ; [facility] Morbid obesity Medical New Patient with Denny doherty CUSTOMER SERVICE ASSISTANT 03/17/2021 Last Documented On 1 4:06PM ; [facility] Post-traumatic stress disorder Medical New Patie nt with Denny Lomeli CUSTOMER SERVICE ASSISTANT 03/17/2021 Last Documented On 1 4:06PM ; [facility] Z68.42 - Body mass index [BM I] 45.0-49.9, adult Medical New Patient with Denny Lomeli CUSTOMER SERVICE ASSISTANT 03/17/2021 Last Documented On 1 4:06PM ; [facility] Work Phone: 1(364) 846-681503-27-2024 History general Narrative - Reported Includes: Medical History in patient's chart Description Last Updated 0 previous live (s) 01/17/2024 Last Documented On 4 7:50PM ; [facility] Previously 1 time(s) 01/17/2024 Last Documented On 4 7:50PM ; [facility] Recent immunization for flu 01/17/2024 Last Documented On 4 7:50PM ; [facility] Has sex without a condom 06/08/2022 Last Documented On 2 4:04PM ; [facility] Not planning to have a baby in the next 12 months 06/08/2022 Last Documented On 2 4:04PM ; [facility] sexually transmitted infection status known 06/08/2022 Last Documented On 2 4:04PM ; [facility] No previous hospitalizations 06/08/2022 Last Documented On 2 4:04PM ; [facility] Chronic illness 05/17/2021 Last Documented On 1 7:49AM ; [facility] Exposure to COVID-19 04/23/2021 Last Documented On 1 12:31PM ; [facility] History of gynecologic disorder 03/17/20 21 Last Documented On 1 4:06PM ; [facility] History of Polycystic Ovarian Syndrome ( PCOS) 03/17/2021 Last Documented On 1 4:06PM ; [facility] History of anxiety disorder NOS 03/17/20 21 Last Documented On 1 4:06PM ; [facility] History of migraine headache 03/17/2021 Last Documented On 1 4:06PM ; [facility] History of psychiatric disorders biopola r disorder 03/17/2021 Last Documented On 1 4:06PM ; [facility] Work Phone: 1(504) 316-396703-27-2024 History general Narrative - Reported Includes: Medical History in patient's chart Description Last Updated 0 previous live (s) 01/17/2024 Last Documented On 4 7:50PM ; [facility] Previously 1 time(s) 01/17/2024 Last Documented On 4 7:50PM ; [facility] Recent immunization for flu 01/17/2024 Last Documented On 4 7:50PM ; [facility] Has sex without a condom 06/08/2022 Last Documented On 2 4:04PM ; [facility] Not planning to have a baby in the next 12 months 06/08/2022 Last Documented On 2 4:04PM ; [facility] sexually transmitted infection status known 06/08/2022 Last Documented On 2 4:04PM ; [facility] No previous hospitalizations 06/08/2022 Last Documented On 2 4:04PM ; [facility] Chronic illness 05/17/2021 Last Documented On 1 7:49AM ; [facility] Exposure to COVID-19 04/23/2021 Last Documented On 1 12:31PM ; [facility] History of gynecologic disorder 03/17/20 21 Last Documented On 1 4:06PM ; [facility] History of Polycystic Ovarian Syndrome ( PCOS) 03/17/2021 Last Documented On 1 4:06PM ; [facility] History of anxiety disorder NOS 03/17/20 21 Last Documented On 1 4:06PM ; [facility] History of migraine headache 03/17/2021 Last Documented On 1 4:06PM ; [facility] History of psychiatric disorders biopola r disorder 03/17/2021 Last Documented On 1 4:06PM ; [facility] Work Phone: 1(739) 779-317803-27-2024 History general Narrative - Reported Includes: Medical History in patient's chart Description Last Updated 0 previous live (s) 01/17/2024 Last Documented On 4 7:50PM ; [facility] Previously 1 time(s) 01/17/2024 Last Documented On 4 7:50PM ; [facility] Recent immunization for flu 01/17/2024 Last Documented On 4 7:50PM ; [facility] Has sex without a condom 06/08/2022 Last Documented On 2 4:04PM ; [facility] Not planning to have a baby in the next 12 months 06/08/2022 Last Documented On 2 4:04PM ; [facility] sexually transmitted infection status known 06/08/2022 Last Documented On 2 4:04PM ; [facility] No previous hospitalizations 06/08/2022 Last Documented On 2 4:04PM ; [facility] Chronic illness 05/17/2021 Last Documented On 1 7:49AM ; [facility] Exposure to COVID-19 04/23/2021 Last Documented On 1 12:31PM ; [facility] History of gynecologic disorder 03/17/20 21 Last Documented On 1 4:06PM ; [facility] History of Polycystic Ovarian Syndrome ( PCOS) 03/17/2021 Last Documented On 1 4:06PM ; [facility] History of anxiety disorder NOS 03/17/20 21 Last Documented On 1 4:06PM ; [facility] History of migraine headache 03/17/2021 Last Documented On 1 4:06PM ; [facility] History of psychiatric disorders biopola r disorder 03/17/2021 Last Documented On 1 4:06PM ; [facility] Work Phone: 1(923) 120-725103-27-2024 Progress note* Progress note Date Encounter Last Documented by 01/17/2024 Medical Established Patient Last documented on 01/17/2024; 7:50 PM, Denny Lomeli CNP; [facility] Active Problems & Conditions - F90.9 - Attention-deficit Hyperactivity Disorder - F31.31 - Bipolar I Disorder, Most Recent Episode, Depressed Mild - F43.10 - Post-traumatic Stress Disorder Chief Complaint The Chief Complaint is: Patient was D/C'd from [facility] in [place] for no call no show. Patient needs [...] over psych meds , got dismissed from [facility] r/t no shows. has felt [...] MG Oral Tablet AM and PM per [facility] in [place], 30 days, 0 refills - MiraLax 17 [...] BP-Sitting R134/88 mmHg BP Cuff SizeLarge Pulse Rate-Bzhnmxa111 bpm Fcvpzh07 in Wmxjlt818 lbs Body Mass Index52.7 kg/m2 Body Surface Area2.3 m2 Oxygen Kywweoyesj90 % Vital Signs: - Systolic blood pressure [...] transmiss Outside Labs/Microbiology: All 3 Urine Test Qujxiquop-Kwgioskrq-Iuaioomxfen EndCited StartCited- Other Follow-up Appointment 2 month [...] Less than 40 years (0 points) [Pre-DM]. [facility]03-27-2024 Progress note* Progress note Date Encounter Last Documented by 01/17/2024 Established Patient Last docu mented on 01/18/2024; 5:16 PM, Kinga RUDOLPH; [facility] Active Problems & Conditions - F90.9 - Attention-deficit Hyperactivity Disorder - F31.31 - Bipolar I Disorder, Most Recent Episode, Depressed Mild - F43.10 - Post-traumatic Stress Disorder Chief Complaint The Chief Complaint is: [facility] met with patient to follow-up regarding mood and medications and discuss PHQ score of 2. Patient reports recently getting [facility] [place] due to missing appointments. Patient reports being [...] MG Oral Tablet AM and PM per [facility] in [place], 30 days, 0 refills - MiraLax 17 [...] and Collaborated with patient and provider: Counseling/Education [facility] offered active and supportive listening and processed current stressors related to getting medications. [facility] discussed coping skills and supports to implement in daily routine. [facility] discussed progress patient has felt they have made recently and encouraged continued follow-up with providers to address health. Plan Patient to take medications as prescribed and contact the office with any questions or concerns. Patient to implement coping skills and positive supports as discussed. [facility] to attempt to follow-up with patient via [...] clothing: No, unable to get needed child welfare assistant: No, unable to get other needs No, [...] + 0 pt : Not at all. [facility]07-19-2023 Progress note* Progress note Date Encounter Last Documented by 05/10/2023 Medical Established Patient Last documented on 05/10/2023; 6:01 PM, Denny Lomeli CNP; [facility] Active Problems & Conditions - F31.10 [...] does see Belkis Clarke a counselor at [facility] Currently only taking Metformin d/t PCOS Current Medication - Aldactazide 50-50 MG Oral Tablet take 1 tablet by mouth once daily, 30 days, 11 refills - metFORMIN HCl 500 MG Oral Tablet AM and PM per [facility] in [place], 30 days, 0 refills - MiraLax 17 [...] BP-Sitting L111/76 mmHg BP Cuff SizeLarge Pulse Rate-Cdltxly42 bpm Temp-Oral98.2 F Qwcndr91 in Ylrmue601 lbs Body Mass Index32.8 kg/m2 Body Surface Area1.9 m2 Oxygen Tpepiisilz09 % Vital Signs: - Systolic blood pressure [...] accepting now, otherwise ok with rd or get EndCited StartCited- Essential (primary) hypertension Aldactazide 50-50 MG tablet take 1 tablet by mouth once daily, 30 days, 11 refills EndCited StartCited- Other Follow-up Appointment f/u phone call 1 month EndCited Health Reminders - Assess BMI satisfied 05/10/2023. - Assess Tobacco Use satisfied 05/10/2023. - Follow Up Plan BMI Management satisfied 05/10/2023. [id number] Evaluation note Includes: Assessments for all patient encounters Findings Encounter Date Assessment of body mass index Medical Es tablished Patient with Denny Lomeli CNP 08/12/2022 Bipolar affective disorder, current episode manic [facility] with Belkis Velarde [facility] 06/16/2022 Bipolar affective disorder, current episode manic Established Patient with Belkis Velarde [facility] 06/15/2022 Bipolar affective disorder, current episode depressed, severe with psychosis [facility] with Belkis Velarde [facility] 06/15/2022 Assessment of body mass inde x [Body mass index [BMI] 50.0-59.9, adult] Open Access - Established with Leah Amaya CNP 06/15/2022 Bipolar I disorder, most rec ent episode, manic Open Access - Established with Leah Amaya CUSTOMER SERVICE ASSISTANT 06/15/2022 Post-traumatic stress disorder Establ ished Patient with Belkis Velarde [facility] 06/08/2022 No cough Medical Established Patient with Denny Landonen CUSTOMER SERVICE ASSISTANT 06/08/2022 Z68.43 - Body mass index [BM I] 50.0-59.9, adult Medical Established Patient with Denny Armani CUSTOMER SERVICE ASSISTANT 06/08/2022 Borderline personality disor kyree Pt reported hx of sx/dx Established Patient with Belkisdionna Velarde [facility] 05/27/2022 Assessment of body mass inde x [Body mass index [BMI] 50.0-59.9, adult] Open Access - Established with Leah Monique CUSTOMER SERVICE ASSISTANT 05/27/2022 Diabetes Risk Test Score was three score 05/27/2022 Open Access - Established with Leah Monique CUSTOMER SERVICE ASSISTANT 05/27/2022 Bipolar I disorder, most rec ent episode, manic Established Patient with Eufemia Mcneil [facility] 07/15/2021 Borderline personality disorder Estab lished Patient with Eufemia Mcneil [facility] 07/15/2021 Post-traumatic stress disorder Establ ished Patient with Eufemia Mcneil [facility] 07/15/2021 Assessment of visit for: lloyd strange for human immunodeficiency virus Medical Established Patient with Denny Armani CUSTOMER SERVICE ASSISTANT 07/15/2021 Nicotine dependence Medical Established Patient with Denny Armani CUSTOMER SERVICE ASSISTANT 07/15/2021 Tachycardia Medical Established Patient with Denny Armani CUSTOMER SERVICE ASSISTANT 07/15/2021 Z68.43 - Body mass index [BM I] 50.0-59.9, adult Medical Established Patient with Denny Armani CUSTOMER SERVICE ASSISTANT 07/15/2021 Bipolar I disorder, most rec ent episode, manic Established Patient with Kinga Short LISWS 06/17/2021 Borderline personality disor kyree per patient reported history BH Established Patient with Kinga Short LISWS 06/17/2021 Nicotine dependence Established Patie nt with Kinga Short LISWS 06/17/2021 Post-traumatic stress disorder Establ ished Patient with Kinga Short LISWS 06/17/2021 Body mass index Medical Established Patient with Denny Armani CUSTOMER SERVICE ASSISTANT 06/17/2021 Morbid obesity Medical Established Patient with Denny Armani CUSTOMER SERVICE ASSISTANT 06/17/2021 Nicotine dependence uncomplicated Medica l Established Patient with Denny Armani CUSTOMER SERVICE ASSISTANT 06/17/2021 Z68.42 - Body mass index [BM I] 45.0-49.9, adult Medical Established Patient with Denny Armani CUSTOMER SERVICE ASSISTANT 06/17/2021 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 disorders [place] with Teagan zuniga [facility] 05/15/2021 Mood disorders, NOS per blaze ent reported history BH Established Patient with Kinga Short LISWS 04/23/2021 Post-traumatic stress disorder BH Establ ished Patient with Kinga Short LISWS 04/23/2021 Morbid obesity Medical Established Patient with Denny Armani CUSTOMER SERVICE ASSISTANT 04/23/2021 Otitis externa Medical Established Patient with Denny Armani CUSTOMER SERVICE ASSISTANT 04/23/2021 Z68.42 - Body mass index [BM I] 45.0-49.9, adult Medical Established Patient with Denny Armani CUSTOMER SERVICE ASSISTANT 04/23/2021 Post-traumatic stress disorder BH Establ ished Patient with Kinga Short LISWS 04/01/2021 Morbid obesity Medical Established Patient with Denny Armani CUSTOMER SERVICE ASSISTANT 04/01/2021 Z68.42 - Body mass index [BM I] 45.0-49.9, adult Medical Established Patient with Denny Armani CUSTOMER SERVICE ASSISTANT 04/01/2021 Post-traumatic stress disorder Establ ished Patient with Kinga Short LISWS 03/17/2021 Assessment of visit for: lloyd strange for human immunodeficiency virus Medical New Patient with Denny Armani CUSTOMER SERVICE ASSISTANT 03/17/2021 Diabetes Risk Test Score was one score 03/17/2021 Medical New Patient with Denny Armani [facility] 03/17/2021 Hypertension Medical New Patient with Denny Armani CUSTOMER SERVICE ASSISTANT 03/17/2021 Morbid obesity Medical New Patient with Denny Armani CUSTOMER SERVICE ASSISTANT 03/17/2021 Post-traumatic stress disorder Medical N ew Patient with Denny Armani [facility] 03/17/2021 Z68.42 - Body mass index [BM I] 45.0-49.9, adult Medical New Patient with Denny Armani [facility] 03/17/2021 [facility] Work Phone: 1(528) 107-680008-25-2022 Evaluation note Includes: Assessments for all patient encounters Findings Encounter Date Bipolar affective disorder, current episode manic [facility] with Belkis Velarde [facility] 06/16/2022 Bipolar affective disorder, current episode manic Established Patient with Belkisdionna Velarde [facility] 06/15/2022 Bipolar affective disorder, current episode depressed, severe with psychosis [facility] with Belkisdionna Velarde [facility] 06/15/2022 Assessment of body mass inde x [Body mass index [BMI] 50.0-59.9, adult] Open Access - Established with Leah Monique CUSTOMER SERVICE ASSISTANT 06/15/2022 Bipolar I disorder, most rec ent episode, manic Open Access - Established with Leah Monique CUSTOMER SERVICE ASSISTANT 06/15/2022 Post-traumatic stress disorder Establ ished Patient with Belkisdionna Velarde [facility] 06/08/2022 No cough Medical Established Patient with Denny Armani CUSTOMER SERVICE ASSISTANT 06/08/2022 Z68.43 - Body mass index [BM I] 50.0-59.9, adult Medical Established Patient with Denny Armani CUSTOMER SERVICE ASSISTANT 06/08/2022 Borderline personality disor kyree Pt reported hx of sx/dx Established Patient with Belkis Velarde [facility] 05/27/2022 Assessment of body mass inde x [Body mass index [BMI] 50.0-59.9, adult] Open Access - Established with Leah Monique CUSTOMER SERVICE ASSISTANT 05/27/2022 Diabetes Risk Test Score was three score 05/27/2022 Open Access - Established with Leah Monique CUSTOMER SERVICE ASSISTANT 05/27/2022 Bipolar I disorder, most rec ent episode, manic Established Patient with Eufemia Mcneil [facility] 07/15/2021 Borderline personality disorder Estab lished Patient with Eufemia Mcneil [facility] 07/15/2021 Post-traumatic stress disorder Establ ished Patient with Eufemia Mcneil [facility] 07/15/2021 Assessment of visit for: lloyd strange for human immunodeficiency virus Medical Established Patient with Denny Armani CUSTOMER SERVICE ASSISTANT 07/15/2021 Nicotine dependence Medical Established Patient with Denny Armani CUSTOMER SERVICE ASSISTANT 07/15/2021 Tachycardia Medical Established Patient with Denny Armani CUSTOMER SERVICE ASSISTANT 07/15/2021 Z68.43 - Body mass index [BM I] 50.0-59.9, adult Medical Established Patient with Denny Armani CUSTOMER SERVICE ASSISTANT 07/15/2021 Bipolar I disorder, most rec ent [...] index Medical Established Patient with Denny Armani CUSTOMER SERVICE ASSISTANT 06/17/2021 Morbid obesity Medical Established Patient with Denny Armani CUSTOMER SERVICE ASSISTANT 06/17/2021 Nicotine dependence uncomplicated Medica l Established Patient with Denny Armani CUSTOMER SERVICE ASSISTANT 06/17/2021 Z68.42 - Body mass index [BM I] 45.0-49.9, adult Medical Established Patient with Denny Armani CUSTOMER SERVICE ASSISTANT 06/17/2021 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 disorders [place] with Teagan zuniga [facility] 05/15/2021 Mood disorders, NOS per blaze ent reported history BH Established Patient with Kinga Short LISWS 04/23/2021 Post-traumatic stress disorder BH Establ ished Patient with Kinga Short LISWS 04/23/2021 Morbid obesity Medical Established Patient with Denny Armani CUSTOMER SERVICE ASSISTANT 04/23/2021 Otitis externa Medical Established Patient with Denny Armani CUSTOMER SERVICE ASSISTANT 04/23/2021 Z68.42 - Body mass index [BM I] 45.0-49.9, adult Medical Established Patient with Denny Armani CUSTOMER SERVICE ASSISTANT 04/23/2021 Post-traumatic stress disorder BH Establ ished Patient with Kinga Short LISWS 04/01/2021 Morbid obesity Medical Established Patient with Denny Armani CUSTOMER SERVICE ASSISTANT 04/01/2021 Z68.42 - Body mass index [BM I] 45.0-49.9, adult Medical Established Patient with Denny Armani CUSTOMER SERVICE ASSISTANT 04/01/2021 Post-traumatic stress disorder BH Establ ished Patient with Kinga Short LISWS 03/17/2021 Assessment of visit for: lloyd strange for human immunodeficiency virus Medical New Patient with Denny Armani CUSTOMER SERVICE ASSISTANT 03/17/2021 Diabetes Risk Test Score was one score 03/17/2021 Medical New Patient with Denny Armani CUSTOMER SERVICE ASSISTANT 03/17/2021 Hypertension Medical New Patient with Denny Armani CUSTOMER SERVICE ASSISTANT 03/17/2021 Morbid obesity Medical New Patient with Denny Armani CUSTOMER SERVICE ASSISTANT 03/17/2021 Post-traumatic stress disorder Medical N ew Patient with Denny Armani CUSTOMER SERVICE ASSISTANT 03/17/2021 Z68.42 - Body mass index [BM I] 45.0-49.9, adult Medical New Patient with Dennyartem Lomeli CUSTOMER SERVICE ASSISTANT 03/17/2021 [facility] Work Phone: 1(749) 610-999008-24-2022 Evaluation note Includes: Assessments for all patient encounters Findings Encounter Date Bipolar affective disorder, current episode depressed, severe with psychosis Telebehavioral Health with Belkisdionna Coffe[facility]Velarde [facility] 06/15/2022 Assessment of body mass inde x [Body mass index [BMI] 50.0-59.9, adult] Open Access - Established with Leah Monique CUSTOMER SERVICE ASSISTANT 06/15/2022 Post-traumatic stress disorder Establ ished Patient with Belkis Velarde [facility] 06/08/2022 No cough Medical Established Patient with Denny Armani [facility] 06/08/2022 Z68.43 - Body mass index [BM I] 50.0-59.9, adult Medical Established Patient with Denny Armani [facility] 06/08/2022 Borderline personality disor kyree Pt reported hx of sx/dx Established Patient with Belkis Velarde [facility] 05/27/2022 Assessment of body mass inde x [Body mass index [BMI] 50.0-59.9, adult] Open Access - Established with Leah Monique CUSTOMER SERVICE ASSISTANT 05/27/2022 Diabetes Risk Test Score was three score 05/27/2022 Open Access - Established with Leah Monique CUSTOMER SERVICE ASSISTANT 05/27/2022 Bipolar I disorder, most rec ent episode, manic Established Patient with Eufemia Mcneil [facility] 07/15/2021 Borderline personality disorder Estab lished Patient with Eufemia Mcneil [facility] 07/15/2021 Post-traumatic stress disorder Establ ished Patient with Eufemia Mcneil [facility] 07/15/2021 Assessment of visit for: lloyd strange for human immunodeficiency virus Medical Established Patient with Denny Armani CUSTOMER SERVICE ASSISTANT 07/15/2021 Nicotine dependence Medical Established Patient with Denny Armani CUSTOMER SERVICE ASSISTANT 07/15/2021 Tachycardia Medical Established Patient with Denny Armani [facility] 07/15/2021 Z68.43 - Body mass index [BM I] 50.0-59.9, adult Medical Established Patient with Denny Armani CUSTOMER SERVICE ASSISTANT 07/15/2021 Bipolar I disorder, most rec ent episode, manic Established Patient with Kinga Short LISWS 06/17/2021 Borderline personality disor kyree per patient reported history BH Established Patient with Kinga Short LISWS 06/17/2021 Nicotine dependence BH Established Patie nt with Kinga Short LISWS 06/17/2021 Post-traumatic stress disorder Establ ished Patient with Kinga Short LISWS 06/17/2021 Body mass index Medical Established Patient with Denny Armani CUSTOMER SERVICE ASSISTANT 06/17/2021 Morbid obesity Medical Established Patient with Denny Armani CUSTOMER SERVICE ASSISTANT 06/17/2021 Nicotine dependence uncomplicated Medica l Established Patient with Denny Armani CUSTOMER SERVICE ASSISTANT 06/17/2021 Z68.42 - Body mass index [BM I] 45.0-49.9, adult Medical Established Patient with Denny Armani CUSTOMER SERVICE ASSISTANT 06/17/2021 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 disorders [place] with Teagan zuniga [facility] 05/15/2021 Mood disorders, NOS per blaze ent reported history Established Patient with Kinga Short [facility] 04/23/2021 Post-traumatic stress disorder Establ ished Patient with Kinga Short [facility] 04/23/2021 Morbid obesity Medical Established Patient with Denny Armain CUSTOMER SERVICE ASSISTANT 04/23/2021 Otitis externa Medical Established Patient with Denny Armani CUSTOMER SERVICE ASSISTANT 04/23/2021 Z68.42 - Body mass index [BM I] 45.0-49.9, adult Medical Established Patient with Denny Armani CUSTOMER SERVICE ASSISTANT 04/23/2021 Post-traumatic stress disorder Establ ished Patient with Kinga Short [facility]ISWS 04/01/2021 Morbid obesity Medical Established Patient with Denny Armani CUSTOMER SERVICE ASSISTANT 04/01/2021 Z68.42 - Body mass index [BM I] 45.0-49.9, adult Medical Established Patient with Denny Armani CUSTOMER SERVICE ASSISTANT 04/01/2021 Post-traumatic stress disorder BH Establ ished Patient with Kinga Short [facility]IS[facility] 03/17/2021 Assessment of visit for: lloyd strange for human immunodeficiency virus Medical New Patient with Denny Lomeli CUSTOMER SERVICE ASSISTANT 03/17/2021 Diabetes Risk Test Score was one score 03/17/2021 Medical New Patient with Denny Armani CUSTOMER SERVICE ASSISTANT 03/17/2021 Hypertension Medical New Patient with Denny Lomeli [facility] 03/17/2021 Morbid obesity Medical New Patient with Denny Lomeli [facility] 03/17/2021 Post-traumatic stress disorder Medical N ew Patient with Denny Lomeli [facility] 03/17/2021 Z68.42 - Body mass index [BM I] 45.0-49.9, adult Medical New Patient with Denny Lomeli [facility] 03/17/2021 [facility] Work Phone: 1([phone]) 211-867408-24-2022 Evaluation note Includes: Assessments for all patient encounters Findings Encounter Date Bipolar affective disorder, current episode depressed, severe with psychosis [facility]behavioral Health with Belkisdionna CoffeyVelarde [facility] 06/15/2022 Assessment of body mass inde x [Body mass index [BMI] 50.0-59.9, adult] Open Access - Established with Leah Monique CUSTOMER SERVICE ASSISTANT 06/15/2022 Bipolar I disorder, most rec ent episode, manic Open Access - Established with Leah Monique CUSTOMER SERVICE ASSISTANT 06/15/2022 Post-traumatic stress disorder Establ ished Patient with Belkisdionna CoffeyVelarde [facility] 06/08/2022 No cough Medical Established Patient with Denny Lomeli [facility] 06/08/2022 Z68.43 - Body mass index [BM I] 50.0-59.9, adult Medical Established Patient with Denny Lomeli [facility] 06/08/2022 Borderline personality disor kyree Pt reported hx of sx/dx Established Patient [facility]isdionna [facility] 05/27/2022 Assessment of body mass inde x [Body mass index [BMI] 50.0-59.9, adult] Open Access - Established with Leah Monique CUSTOMER SERVICE ASSISTANT 05/27/2022 Diabetes Risk Test Score was three score 05/27/2022 Open Access - Established with Leah Monique CUSTOMER SERVICE ASSISTANT 05/27/2022 Bipolar I disorder, most rec ent episode, manic Established Patient with Eufemiahola Brashers [facility] 07/15/2021 Borderline personality disorder Estab lished Patient with Eufemia Mcneil [facility] 07/15/2021 Post-traumatic stress disorder Establ ished Patient with Eufemia Mcneil [facility] 07/15/2021 Assessment of visit for: lloyd strange for human immunodeficiency virus Medical Established Patient with Denny Armani CUSTOMER SERVICE ASSISTANT 07/15/2021 Nicotine dependence Medical Established Patient with Denny Armani CUSTOMER SERVICE ASSISTANT 07/15/2021 Tachycardia Medical Established Patient with Denny Armani CUSTOMER SERVICE ASSISTANT 07/15/2021 Z68.43 - Body mass index [BM I] 50.0-59.9, adult Medical Established Patient with Denny Armani CUSTOMER SERVICE ASSISTANT 07/15/2021 Bipolar I disorder, most rec ent episode, manic Established Patient with Kinga Short LISWS 06/17/2021 Borderline personality disor kyree per patient reported history Established Patient with Kinga Short LIS[facility] 06/17/2021 Nicotine dependence BH Established Patie nt with Kinga Short LIS[facility] 06/17/2021 Post-traumatic stress disorder Establ ished Patient with Kinga Short [facility] 06/17/2021 Body mass index Medical Established Patient with Dennyartem Landonen CUSTOMER SERVICE ASSISTANT 06/17/2021 Morbid obesity Medical Established Patient with Denny Armani CUSTOMER SERVICE ASSISTANT 06/17/2021 Nicotine dependence uncomplicated Medica l Established Patient with Denny Armani CUSTOMER SERVICE ASSISTANT 06/17/2021 Z68.42 - Body mass index [BM I] 45.0-49.9, adult Medical Established Patient with Denny Armani CUSTOMER SERVICE ASSISTANT 06/17/2021 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 disorders [place] with Teagan zuniga [facility] 05/15/2021 Mood disorders, NOS per blaze ent reported history Established Patient with Kinga Short [facility]IS[facility] 04/23/2021 Post-traumatic stress disorder Establ ished Patient with Kinga Short LISWS 04/23/2021 Morbid obesity Medical Established Patient with Denny Armani CUSTOMER SERVICE ASSISTANT 04/23/2021 Otitis externa Medical Established Patient with Denny Armani CUSTOMER SERVICE ASSISTANT 04/23/2021 Z68.42 - Body mass index [BM I] 45.0-49.9, adult Medical Established Patient with Denny Armani CUSTOMER SERVICE ASSISTANT 04/23/2021 Post-traumatic stress disorder Establ ished Patient with Kinga Short LISWS 04/01/2021 Morbid obesity Medical Established Patient with Denny Armani CUSTOMER SERVICE ASSISTANT 04/01/2021 Z68.42 - Body mass index [BM I] 45.0-49.9, adult Medical Established Patient with Denny Armani CUSTOMER SERVICE ASSISTANT 04/01/2021 Post-traumatic stress disorder Establ ished Patient with Kinga Short LISWS 03/17/2021 Assessment of visit for: lloyd strange for human immunodeficiency virus Medical New Patient with Denny Lomeli CUSTOMER SERVICE ASSISTANT 03/17/2021 Diabetes Risk Test Score was one score 03/17/2021 Medical New Patient with Denny Armani [facility] 03/17/2021 Hypertension Medical New Patient with Denny Lomeli CUSTOMER SERVICE ASSISTANT 03/17/2021 Morbid obesity Medical New Patient with Denny Armani [facility] 03/17/2021 Post-traumatic stress disorder Medical N ew Patient with Denny Lomeli CUSTOMER SERVICE ASSISTANT 03/17/2021 Z68.42 - Body mass index [BM I] 45.0-49.9, adult Medical New Patient with Denny Lomeli CUSTOMER SERVICE ASSISTANT 03/17/2021 [facility] Work Phone: 1([phone]) [phone] Evaluation note Includes: Assessments for all patient encounters Findings Encounter Date Bipolar affective disorder, current episode manic Established Patient with Belkisdionna CoffeyVelarde [facility] 06/15/2022 Bipolar affective disorder, current episode depressed, severe with psychosis Telebehavioral Health with Belkisdionna CoffeyVelarde [facility] 06/15/2022 Assessment of body mass inde x [Body mass index [BMI] 50.0-59.9, adult] Open Access - Established with Leah Amaya CNP 06/15/2022 Bipolar I disorder, most rec ent episode, manic Open Access - Established with Leah Monique CUSTOMER SERVICE ASSISTANT 06/15/2022 Post-traumatic stress disorder BH Establ ished Patient with Belkisdionna Velarde [facility] 06/08/2022 No cough Medical Established Patient with Denny Armani CUSTOMER SERVICE ASSISTANT 06/08/2022 Z68.43 - Body mass index [BM I] 50.0-59.9, adult Medical Established Patient with Denny Armani CUSTOMER SERVICE ASSISTANT 06/08/2022 Borderline personality disor kyree Pt reported hx of sx/dx Established Patient with Belkisdionna CoffeyVelarde [facility] 05/27/2022 Assessment of body mass inde x [Body mass index [BMI] 50.0-59.9, adult] Open Access - Established with Leah Moniquedemarcus [facility] 05/27/2022 Diabetes Risk Test Score was three score 05/27/2022 Open Access - Established with Leah Monique CUSTOMER SERVICE ASSISTANT 05/27/2022 Bipolar I disorder, most rec ent episode, manic BH Established Patient with Eufemia Mcneil [facility] 07/15/2021 Borderline personality disorder BH Estab lished Patient with Eufemia Mcneil [facility] 07/15/2021 Post-traumatic stress disorder BH Establ ished Patient with Eufemia Mcneil [facility] 07/15/2021 Assessment of visit for: lloyd strange for human immunodeficiency virus Medical Established Patient with Denny Armani CUSTOMER SERVICE ASSISTANT 07/15/2021 Nicotine dependence Medical Established Patient with Denny Armani CUSTOMER SERVICE ASSISTANT 07/15/2021 Tachycardia Medical Established Patient with Denny Armani CUSTOMER SERVICE ASSISTANT 07/15/2021 Z68.43 - Body mass index [BM I] 50.0-59.9, adult Medical Established Patient with Denny Armani CUSTOMER SERVICE ASSISTANT 07/15/2021 Bipolar I disorder, most rec ent [...] index Medical Established Patient with Denny Armani CUSTOMER SERVICE ASSISTANT 06/17/2021 Morbid obesity Medical Established Patient with Denny Armani CUSTOMER SERVICE ASSISTANT 06/17/2021 Nicotine dependence uncomplicated Medica l Established Patient with Denny Armani CUSTOMER SERVICE ASSISTANT 06/17/2021 Z68.42 - Body mass index [BM I] 45.0-49.9, adult Medical Established Patient with Denny Armani CUSTOMER SERVICE ASSISTANT 06/17/2021 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 disorders [place] with Teagan zuniga [facility] 05/15/2021 Mood disorders, NOS per blaze ent reported history BH Established Patient with Kinga Short LIS[facility] 04/23/2021 Post-traumatic stress disorder BH Establ ished Patient with Kinga Short LISWS 04/23/2021 Morbid obesity Medical Established Patient with Denny Armani CUSTOMER SERVICE ASSISTANT 04/23/2021 Otitis externa Medical Established Patient with Denny Armani CUSTOMER SERVICE ASSISTANT 04/23/2021 Z68.42 - Body mass index [BM I] 45.0-49.9, adult Medical Established Patient with Denny Armani CUSTOMER SERVICE ASSISTANT 04/23/2021 Post-traumatic stress disorder BH Establ ished Patient with Iknga Short LISWS 04/01/2021 Morbid obesity Medical Established Patient with Denny Armani CUSTOMER SERVICE ASSISTANT 04/01/2021 Z68.42 - Body mass index [BM I] 45.0-49.9, adult Medical Established Patient with Denny Armani CUSTOMER SERVICE ASSISTANT 04/01/2021 Post-traumatic stress disorder BH Establ ished Patient with Kinga Short LISWS 03/17/2021 Assessment of visit for: lloyd strange for human immunodeficiency virus Medical New Patient with Denny Armani CUSTOMER SERVICE ASSISTANT 03/17/2021 Diabetes Risk Test Score was one score 03/17/2021 Medical New Patient with Denny Armani CUSTOMER SERVICE ASSISTANT 03/17/2021 Hypertension Medical New Patient with Denny Armani CUSTOMER SERVICE ASSISTANT 03/17/2021 Morbid obesity Medical New Patient with Denny Armani CUSTOMER SERVICE ASSISTANT 03/17/2021 Post-traumatic stress disorder Medical N ew Patient with Denny Armani CUSTOMER SERVICE ASSISTANT 03/17/2021 Z68.42 - Body mass index [BM I] 45.0-49.9, adult Medical New Patient with Denny Armani CUSTOMER SERVICE ASSISTANT 03/17/2021 [facility] Work Phone: 1(309) 601-246808-17-2022 Evaluation note Includes: Assessments for all patient encounters Findings Encounter Date Post-traumatic stress disorder BH Establ ished Patient with Belkisdionna CoffeyVelarde [facility] 06/08/2022 No cough Medical Established Patient with Denny Armani CUSTOMER SERVICE ASSISTANT 06/08/2022 Z68.43 - Body mass index [BM I] 50.0-59.9, adult Medical Established Patient with Denny Armani CUSTOMER SERVICE ASSISTANT 06/08/2022 Borderline personality disor kyree Pt reported hx of sx/dx Established Patient with Belkis Velarde [facility] 05/27/2022 Assessment of body mass inde x [Body mass index [BMI] 50.0-59.9, adult] Open Access - Established with Leah Amaya CUSTOMER SERVICE ASSISTANT 05/27/2022 Diabetes Risk Test Score was three score 05/27/2022 Open Access - Established with Leah Monique CUSTOMER SERVICE ASSISTANT 05/27/2022 Bipolar I disorder, most rec ent episode, manic Established Patient with Eufemia Mcneil [facility] 07/15/2021 Borderline personality disorder Estab lished Patient with Eufemiahola Mcneil [facility] 07/15/2021 Post-traumatic stress disorder BH Establ ished Patient with Eufemia Mcneil [facility] 07/15/2021 Assessment of visit for: lloyd strange for human immunodeficiency virus Medical Established Patient with Denny Armani CUSTOMER SERVICE ASSISTANT 07/15/2021 Nicotine dependence Medical Established Patient with Denny Armani CUSTOMER SERVICE ASSISTANT 07/15/2021 Tachycardia Medical Established Patient with Denny Armani CUSTOMER SERVICE ASSISTANT 07/15/2021 Z68.43 - Body mass index [BM I] 50.0-59.9, adult Medical Established Patient with Denny Armani CUSTOMER SERVICE ASSISTANT 07/15/2021 Bipolar I disorder, most rec ent [...] index Medical Established Patient with Denny Armani CUSTOMER SERVICE ASSISTANT 06/17/2021 Morbid obesity Medical Established Patient with Denny Armani CUSTOMER SERVICE ASSISTANT 06/17/2021 Nicotine dependence uncomplicated Medica l Established Patient with Denny Armani CUSTOMER SERVICE ASSISTANT 06/17/2021 Z68.42 - Body mass index [BM I] 45.0-49.9, adult Medical Established Patient with Denny Armani CUSTOMER SERVICE ASSISTANT 06/17/2021 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 disorders [place] with Teagan zuniga CUSTOMER SERVICE ASSISTANT 05/15/2021 Mood disorders, NOS per blaze ent reported history BH Established Patient with Kinga Short LISWS 04/23/2021 Post-traumatic stress disorder BH Establ ished Patient with Kinga Short LISWS 04/23/2021 Morbid obesity Medical Established Patient with Denny Armani CUSTOMER SERVICE ASSISTANT 04/23/2021 Otitis externa Medical Established Patient with Denny Armani CUSTOMER SERVICE ASSISTANT 04/23/2021 Z68.42 - Body mass index [BM I] 45.0-49.9, adult Medical Established Patient with Denny Armani CUSTOMER SERVICE ASSISTANT 04/23/2021 Post-traumatic stress disorder BH Establ ished Patient with Kinga Short LISWS 04/01/2021 Morbid obesity Medical Established Patient with Denny Armani CUSTOMER SERVICE ASSISTANT 04/01/2021 Z68.42 - Body mass index [BM I] 45.0-49.9, adult Medical Established Patient with Denny Lomeli CUSTOMER SERVICE ASSISTANT 04/01/2021 Post-traumatic stress disorder BH Establ ished Patient with Kinga Bourgeois LISWS 03/17/2021 Assessment of visit for: lloyd mcgillning for human immunodeficiency virus Medical New Patient with Denny Lomeli CUSTOMER SERVICE ASSISTANT 03/17/2021 Diabetes Risk Test Score was one score 03/17/2021 Medical New Patient with Denny Lomeli CUSTOMER SERVICE ASSISTANT 03/17/2021 Hypertension Medical New Patient with Denny Lomeli CUSTOMER SERVICE ASSISTANT 03/17/2021 Morbid obesity Medical New Patient with Denny Lomeli CUSTOMER SERVICE ASSISTANT 03/17/2021 Post-traumatic stress disorder Medical N ew Patient with Denny Lomeli [facility] 03/17/2021 Z68.42 - Body mass index [BM I] 45.0-49.9, adult Medical New Patient with Denny Lomeli [facility] 03/17/2021 [facility] Work Phone: 1([phone]) 146-901408-17-2022 History general Narrative - Reported Includes: Medical [...] of psychiatric disorders biopola r disorder 03/17/2021 [facility] Work Phone: [phone]) [phone] Evaluation note Includes: Assessments for all patient encounters Findings Encounter Date Borderline personality disor kyree Pt reported hx of sx/dx BH Established Patient with Belkis Velarde [facility] 05/27/2022 Assessment of body mass inde x [Body mass index [BMI] 50.0-59.9, adult] Open Access - Established with Leah Amaya [facility] 05/27/2022 Diabetes Risk Test Score was three score 05/27/2022 Open Access - Established with Leah Amaya CUSTOMER SERVICE ASSISTANT 05/27/2022 Bipolar I disorder, most rec ent episode, manic Established Patient with Eufemia Mcneil [facility] 07/15/2021 Borderline personality disorder BH Estab lished Patient with Eufemia Mcneil [facility] 07/15/2021 Post-traumatic stress disorder BH Establ ished Patient with Eufemia Mcneil [facility] 07/15/2021 Assessment of visit for: lloyd strange for human immunodeficiency virus Medical Established Patient with Denny Armani CUSTOMER SERVICE ASSISTANT 07/15/2021 Nicotine dependence Medical Established Patient with Denny Armani CUSTOMER SERVICE ASSISTANT 07/15/2021 Tachycardia Medical Established Patient with Denny Armani CUSTOMER SERVICE ASSISTANT 07/15/2021 Z68.43 - Body mass index [BM I] 50.0-59.9, adult Medical Established Patient with Denny Armani CUSTOMER SERVICE ASSISTANT 07/15/2021 Bipolar I disorder, most rec ent episode, manic Established Patient with Kinga Short LISWS 06/17/2021 Borderline personality disor kyree per patient reported history BH Established Patient with Kinga Short LISWS 06/17/2021 Nicotine dependence BH Established Patie nt with Kinga Short LISWS 06/17/2021 Post-traumatic stress disorder Establ ished Patient with Kinga Short LISWS 06/17/2021 Body mass index Medical Established Patient with Denny Armani CUSTOMER SERVICE ASSISTANT 06/17/2021 Morbid obesity Medical Established Patient with Denny Armani CUSTOMER SERVICE ASSISTANT 06/17/2021 Nicotine dependence uncomplicated Medica l Established Patient with Denny Armani CUSTOMER SERVICE ASSISTANT 06/17/2021 Z68.42 - Body mass index [BM I] 45.0-49.9, adult Medical Established Patient with Denny Armani CUSTOMER SERVICE ASSISTANT 06/17/2021 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 disorders [place] with Teagan zuniga CUSTOMER SERVICE ASSISTANT 05/15/2021 Mood disorders, NOS per blaze ent reported history BH Established Patient with Kinga Short LISWS 04/23/2021 Post-traumatic stress disorder BH Establ ished Patient with Kinga Short LISWS 04/23/2021 Morbid obesity Medical Established Patient with Denny Armani CUSTOMER SERVICE ASSISTANT 04/23/2021 Otitis externa Medical Established Patient with Denny Armani CUSTOMER SERVICE ASSISTANT 04/23/2021 Z68.42 - Body mass index [BM I] 45.0-49.9, adult Medical Established Patient with Denny Lomeli CUSTOMER SERVICE ASSISTANT 04/23/2021 Post-traumatic stress disorder BH Establ ished Patient with Kinga Short LISWS 04/01/2021 Morbid obesity Medical Established Patient with Dennyartem Lomeli CUSTOMER SERVICE ASSISTANT 04/01/2021 Z68.42 - Body mass index [BM I] 45.0-49.9, adult Medical Established Patient with Denny Lomeli CUSTOMER SERVICE ASSISTANT 04/01/2021 Post-traumatic stress disorder BH Establ ished Patient with Kinga Short LISWS 03/17/2021 Assessment of visit for: lloyd strange for human immunodeficiency virus Medical New Patient with Dennyartem Landonen CUSTOMER SERVICE ASSISTANT 03/17/2021 Diabetes Risk Test Score was one score 03/17/2021 Medical New Patient with Dennyartem Lomeli CUSTOMER SERVICE ASSISTANT 03/17/2021 Hypertension Medical New Patient with Denny Armani CUSTOMER SERVICE ASSISTANT 03/17/2021 Morbid obesity Medical New Patient with Denny Lomeli CUSTOMER SERVICE ASSISTANT 03/17/2021 Post-traumatic stress disorder Medical N ew Patient with Denny Armani CUSTOMER SERVICE ASSISTANT 03/17/2021 Z68.42 - Body mass index [BM I] 45.0-49.9, adult Medical New Patient with Dennyartem Lomeli CUSTOMER SERVICE ASSISTANT 03/17/2021 [facility] Work Phone: 1(312) 374-769308-05-2022 Reason for referral (narrative)* Date Encounter Description Provider Reason for Referral 05/27/22 Established Patient Belkis Velarde RASHAD CC-S Referral To Mental Health Team 03/17/21 Medical New Patient Denny Lomeli CNP Refe rral To Mental Health Team [facility] Work Phone: 1(201) 436-169610-04-2021 History of Present illness Narrative* Jazmine Dodeg - 07/26/2021 1:30 PM EDT Explained Holter monitor and diary. [facility]: 1([phone]) 979-951109-23-2021 Evaluation note Includes: Assessments for all patient encounters Findings Encounter Date Bipolar I disorder, most rec ent episode, manic BH Established Patient with Eufemia Mcneil [facility] 07/15/2021 Borderline personality disorder BH Estab lished Patient with Eufemia Spencemons [facility] 07/15/2021 Assessment of visit for: lloyd strange for human immunodeficiency virus Medical Established Patient with Denny Armani CUSTOMER SERVICE ASSISTANT 07/15/2021 Nicotine dependence Medical Established Patient with Denny Armani CUSTOMER SERVICE ASSISTANT 07/15/2021 Tachycardia Medical Established Patient with Denny Armani CUSTOMER SERVICE ASSISTANT 07/15/2021 Z68.43 - Body mass index [BM I] 50.0-59.9, adult Medical Established Patient with Denny Armani CUSTOMER SERVICE ASSISTANT 07/15/2021 Bipolar I disorder, most rec ent episode, manic Established Patient with Kinga Short LISWS 06/17/2021 Borderline personality disor kyree per patient reported history Established Patient with Kinga Short LISWS 06/17/2021 Nicotine dependence BH Established Patie nt with Kinga Short LISWS 06/17/2021 Post-traumatic stress disorder Establ ished Patient with Kinga Short LISWS 06/17/2021 Body mass index Medical Established Patient with Denny Armani CUSTOMER SERVICE ASSISTANT 06/17/2021 Morbid obesity Medical Established Patient with Denny Armani CUSTOMER SERVICE ASSISTANT 06/17/2021 Nicotine dependence uncomplicated Medica l Established Patient with Denny Armani CUSTOMER SERVICE ASSISTANT 06/17/2021 Z68.42 - Body mass index [BM I] 45.0-49.9, adult Medical Established Patient with Denny Armani CUSTOMER SERVICE ASSISTANT 06/17/2021 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 disorders [place] with Teagan zuniga [facility] 05/15/2021 Mood disorders, NOS per blaze ent reported history Established Patient with Kinga Short LISWS 04/23/2021 Post-traumatic stress disorder Establ ished Patient with Kinga Short LISWS 04/23/2021 Morbid obesity Medical Established Patient with Denny Armani CUSTOMER SERVICE ASSISTANT 04/23/2021 Otitis externa Medical Established Patient with Denny Armani CUSTOMER SERVICE ASSISTANT 04/23/2021 Z68.42 - Body mass index [BM I] 45.0-49.9, adult Medical Established Patient with Denny Armani CUSTOMER SERVICE ASSISTANT 04/23/2021 Post-traumatic stress disorder BH Establ ished Patient with Kinga Short LISWS 04/01/2021 Morbid obesity Medical Established Patient with Denny Armani CUSTOMER SERVICE ASSISTANT 04/01/2021 Z68.42 - Body mass index [BM I] 45.0-49.9, adult Medical Established Patient with Denny Armani CUSTOMER SERVICE ASSISTANT 04/01/2021 Post-traumatic stress disorder Establ ished Patient with Kinga Short LISWS 03/17/2021 Assessment of visit for: scr eening for human immunodeficiency virus Medical New Patient with Dennyartem Landonen CUSTOMER SERVICE ASSISTANT 03/17/2021 Diabetes Risk Test Score was one score 03/17/2021 Medical New Patient with Denny Armani CUSTOMER SERVICE ASSISTANT 03/17/2021 Hypertension Medical New Patient with Denny Armani CUSTOMER SERVICE ASSISTANT 03/17/2021 Morbid obesity Medical New Patient with Denny Armani CUSTOMER SERVICE ASSISTANT 03/17/2021 Post-traumatic stress disorder Medical N ew Patient with Denny Armani CUSTOMER SERVICE ASSISTANT 03/17/2021 Z68.42 - Body mass index [BM I] 45.0-49.9, adult Medical New Patient with Denny Armani CUSTOMER SERVICE ASSISTANT 03/17/2021 [facility] Work Phone: 1([phone]) 391-475909-23-2021 Evaluation note Includes: Assessments for all patient [...] virus Medical Established Patient with Denny Armani CUSTOMER SERVICE ASSISTANT 07/15/2021 Nicotine dependence Medical Established Patient with Denny Armani CUSTOMER SERVICE ASSISTANT 07/15/2021 Tachycardia Medical Established Patient with Denny Armani CUSTOMER SERVICE ASSISTANT 07/15/2021 Z68.43 - Body mass index [BM I] 50.0-59.9, adult Medical Established Patient with Denny Armani CUSTOMER SERVICE ASSISTANT 07/15/2021 Bipolar I disorder, most rec ent episode, manic Established Patient with Kinga Short LISWS 06/17/2021 Borderline personality disor kyree per patient reported history BH Established Patient with Kinga Short LISWS 06/17/2021 Nicotine dependence Established Patie nt with Kinga Short LISWS 06/17/2021 Post-traumatic stress disorder BH Establ ished Patient with Kinga Short LISWS 06/17/2021 Body mass index Medical Established Patient with Denny Armani CUSTOMER SERVICE ASSISTANT 06/17/2021 Morbid obesity Medical Established Patient with Denny Armani CUSTOMER SERVICE ASSISTANT 06/17/2021 Nicotine dependence uncomplicated Medica l Established Patient with Denny Armani CUSTOMER SERVICE ASSISTANT 06/17/2021 Z68.42 - Body mass index [BM I] 45.0-49.9, adult Medical Established Patient with Denny Armani CUSTOMER SERVICE ASSISTANT 06/17/2021 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 disorders [place] with Teagan zuniga [facility] 05/15/2021 Mood disorders, NOS per blaze ent reported history BH Established Patient with Kinga Short [facility]WS 04/23/2021 Post-traumatic stress disorder BH Establ ished Patient with Kinga Short LISWS 04/23/2021 Morbid obesity Medical Established Patient with Denny Armani CUSTOMER SERVICE ASSISTANT 04/23/2021 Otitis externa Medical Established Patient with Denny Armani CUSTOMER SERVICE ASSISTANT 04/23/2021 Z68.42 - Body mass index [BM I] 45.0-49.9, adult Medical Established Patient with Denny Armani CUSTOMER SERVICE ASSISTANT 04/23/2021 Post-traumatic stress disorder BH Establ ished Patient with Kinga Short LISWS 04/01/2021 Morbid obesity Medical Established Patient with Denny Armani CUSTOMER SERVICE ASSISTANT 04/01/2021 Z68.42 - Body mass index [BM I] 45.0-49.9, adult Medical Established Patient with Denny Armani CUSTOMER SERVICE ASSISTANT 04/01/2021 Post-traumatic stress disorder BH Establ ished Patient with Kinga Short LISWS 03/17/2021 Assessment of visit for: lloyd strange for human immunodeficiency virus Medical New Patient with Denny Armani CUSTOMER SERVICE ASSISTANT 03/17/2021 Diabetes Risk Test Score was one score 03/17/2021 Medical New Patient with Denny Armani CUSTOMER SERVICE ASSISTANT 03/17/2021 Hypertension Medical New Patient with Denny Armani CUSTOMER SERVICE ASSISTANT 03/17/2021 Morbid obesity Medical New Patient with Denny Armani CUSTOMER SERVICE ASSISTANT 03/17/2021 Post-traumatic stress disorder Medical N ew Patient with Denny Armani CUSTOMER SERVICE ASSISTANT 03/17/2021 Z68.42 - Body mass index [BM I] 45.0-49.9, adult Medical New Patient with Denny Armani CUSTOMER SERVICE ASSISTANT 03/17/2021 [facility] Work Phone: 1(315) 940-518208-26-2021 Evaluation note Includes: Assessments for all patient [...] index Medical Established Patient with Denny Armani CUSTOMER SERVICE ASSISTANT 06/17/2021 Morbid obesity Medical Established Patient with Denny Armani CUSTOMER SERVICE ASSISTANT 06/17/2021 Nicotine dependence uncomplicated Medica l Established Patient with Denny Armani CUSTOMER SERVICE ASSISTANT 06/17/2021 Z68.42 - Body mass index [BM I] 45.0-49.9, adult Medical Established Patient with Denny Armani CUSTOMER SERVICE ASSISTANT 06/17/2021 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 disorders [place] with Teagan zuniga CUSTOMER SERVICE ASSISTANT 05/15/2021 Mood disorders, NOS per blaze ent reported history Established Patient with Kinga Short LISWS 04/23/2021 Post-traumatic stress disorder Establ ished Patient with Kinga Short LISWS 04/23/2021 Morbid obesity Medical Established Patient with Denny Armani CUSTOMER SERVICE ASSISTANT 04/23/2021 Otitis externa Medical Established Patient with Denny Armani CUSTOMER SERVICE ASSISTANT 04/23/2021 Z68.42 - Body mass index [BM I] 45.0-49.9, adult Medical Established Patient with Denny Armani CUSTOMER SERVICE ASSISTANT 04/23/2021 Post-traumatic stress disorder Establ ished Patient with Kinga Short LISWS 04/01/2021 Morbid obesity Medical Established Patient with Denny Armani CUSTOMER SERVICE ASSISTANT 04/01/2021 Z68.42 - Body mass index [BM I] 45.0-49.9, adult Medical Established Patient with Denny Armani CUSTOMER SERVICE ASSISTANT 04/01/2021 Post-traumatic stress disorder Establ ished Patient with Kinga Short LISWS 03/17/2021 Assessment of visit for: lloyd strange for human immunodeficiency virus Medical New Patient with Denny Armani CUSTOMER SERVICE ASSISTANT 03/17/2021 Diabetes Risk Test Score was one score 03/17/2021 Medical New Patient with Denny Armani CUSTOMER SERVICE ASSISTANT 03/17/2021 Hypertension Medical New Patient with Denny Lomeli CUSTOMER SERVICE ASSISTANT 03/17/2021 Morbid obesity Medical New Patient with Dennyartem Landonen CUSTOMER SERVICE ASSISTANT 03/17/2021 Post-traumatic stress disorder Medical N ew Patient with Denny Armani CUSTOMER SERVICE ASSISTANT 03/17/2021 Z68.42 - Body mass index [BM I] 45.0-49.9, adult Medical New Patient with Denny Lomeli CUSTOMER SERVICE ASSISTANT 03/17/2021 [facility] Work Phone: 1(557) 946-801607-26-2021 History general Narrative - Reported Includes: Medical History in patient's chart Description Last Updated Chronic illness 05/17/2021 Exposure to COVID-19 04/23/2021 Previous hospitalizations 04/23/2021 History of gynecologic disorder 03/17/20 21 History of Polycystic Ovarian Syndrome ( PCOS) 03/17/2021 History of anxiety disorder NOS 03/17/20 21 History of migraine headache 03/17/2021 History of psychiatric disorders biopola r disorder 03/17/2021 [facility] Work Phone: 1(643) 952-813407-24-2021 Evaluation note Includes: Assessments for all patient encounters Findings Encounter Date 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 disorders [place] with Teagan zuniga CNP 05/15/2021 Mood disorders, NOS per blaze ent reported history Established Patient with Kinga Short LISWS 04/23/2021 Post-traumatic stress disorder Establ ished Patient with Kinga Short LISWS 04/23/2021 Morbid obesity Medical Established Patient with Dennyartem Landonen CUSTOMER SERVICE ASSISTANT 04/23/2021 Otitis externa Medical Established Patient with Denny Armani CUSTOMER SERVICE ASSISTANT 04/23/2021 Z68.42 - Body mass index [BM I] 45.0-49.9, adult Medical Established Patient with Denny Armani CUSTOMER SERVICE ASSISTANT 04/23/2021 Post-traumatic stress disorder BH Establ ished Patient with Kinga Short LISWS 04/01/2021 Morbid obesity Medical Established Patient with Denny Armani CUSTOMER SERVICE ASSISTANT 04/01/2021 Z68.42 - Body mass index [BM I] 45.0-49.9, adult Medical Established Patient with Denny Armani CUSTOMER SERVICE ASSISTANT 04/01/2021 Post-traumatic stress disorder BH Establ ished Patient with Kinga Short LISWS 03/17/2021 Assessment of visit for: lloyd strange for human immunodeficiency virus Medical New Patient with Denny Armani CUSTOMER SERVICE ASSISTANT 03/17/2021 Diabetes Risk Test Score was one score 03/17/2021 Medical New Patient with Denny Armani CUSTOMER SERVICE ASSISTANT 03/17/2021 Hypertension Medical New Patient with Denny Armani CUSTOMER SERVICE ASSISTANT 03/17/2021 Morbid obesity Medical New Patient with Denny Armani CUSTOMER SERVICE ASSISTANT 03/17/2021 Post-traumatic stress disorder Medical N ew Patient with Denny Armani CUSTOMER SERVICE ASSISTANT 03/17/2021 Z68.42 - Body mass index [BM I] 45.0-49.9, adult Medical New Patient with Denny Armani CUSTOMER SERVICE ASSISTANT 03/17/2021 [facility] Work Phone: 1(352) 643-211307-02-2021 Evaluation note Includes: Assessments for all patient encounters Findings Encounter Date Mood disorders, NOS per blaze ent reported history BH Established Patient with Kinga Short LISWS 04/23/2021 Post-traumatic stress disorder BH Establ ished Patient with Kinga Short LISWS 04/23/2021 Morbid obesity Medical Established Patient with Denny Armani CUSTOMER SERVICE ASSISTANT 04/23/2021 Otitis externa Medical Established Patient with Denny Armani CUSTOMER SERVICE ASSISTANT 04/23/2021 Z68.42 - Body mass index [BM I] 45.0-49.9, adult Medical Established Patient with Denny Armani CUSTOMER SERVICE ASSISTANT 04/23/2021 Post-traumatic stress disorder BH Establ ished Patient with Kinga Short LISWS 04/01/2021 Morbid obesity Medical Established Patient with Denny Armani CUSTOMER SERVICE ASSISTANT 04/01/2021 Z68.42 - Body mass index [BM I] 45.0-49.9, adult Medical Established Patient with Denny Armani CUSTOMER SERVICE ASSISTANT 04/01/2021 Post-traumatic stress disorder BH Establ ished Patient with Kinga Short LISWS 03/17/2021 Assessment of visit for: lloyd strange for human immunodeficiency virus Medical New Patient with Denny Armani CUSTOMER SERVICE ASSISTANT 03/17/2021 Diabetes Risk Test Score was one score 03/17/2021 Medical New Patient with Denny Armani CUSTOMER SERVICE ASSISTANT 03/17/2021 Hypertension Medical New Patient with Denny Armani CUSTOMER SERVICE ASSISTANT 03/17/2021 Morbid obesity Medical New Patient with Denny Armani CUSTOMER SERVICE ASSISTANT 03/17/2021 Post-traumatic stress disorder Medical N ew Patient with Denny Armani CUSTOMER SERVICE ASSISTANT 03/17/2021 Z68.42 - Body mass index [BM I] 45.0-49.9, adult Medical New Patient with Denny Lomeli CUSTOMER SERVICE ASSISTANT 03/17/2021 [facility] Work Phone: 1(647) 759-839507-02-2021 History general Narrative - Reported Includes: Medical History in patient's chart Description Last Updated Exposure to COVID-19 04/23/2021 Previous hospitalizations 04/23/2021 History of gynecologic disorder 03/17/20 21 History of Polycystic Ovarian Syndrome ( PCOS) 03/17/2021 History of anxiety disorder NOS 03/17/20 21 History of migraine headache 03/17/2021 History of psychiatric disorders biopola r disorder 03/17/2021 [facility] Work Phone: 1(538) 576-316507-02-2021 History general Narrative - Reported Includes: Medical History in patient's chart Description Last Updated Chronic illness 05/17/2021 Exposure to COVID-19 04/23/2021 Previous hospitalizations 04/23/2021 History of gynecologic disorder 03/17/20 21 History of Polycystic Ovarian Syndrome ( PCOS) 03/17/2021 History of anxiety disorder NOS 03/17/20 21 History of migraine headache 03/17/2021 History of psychiatric disorders biopola r disorder 03/17/2021 [facility] Work Phone: 1(847) 954-417506-10-2021 Evaluation note Includes: Assessments for all patient encounters Findings Encounter Date Morbid obesity Medical Established Patient with Denny Lomeli CUSTOMER SERVICE ASSISTANT 04/01/2021 Z68.42 - Body mass index [BM I] 45.0-49.9, adult Medical Established Patient with Denny Lomeli CUSTOMER SERVICE ASSISTANT 04/01/2021 Post-traumatic stress disorder Establ ished Patient with Kinga Short LISWS 03/17/2021 Assessment of visit for: lloyd strange for human immunodeficiency virus Medical New Patient with Denny Lomeli CUSTOMER SERVICE ASSISTANT 03/17/2021 Diabetes Risk Test Score was one score 03/17/2021 Medical New Patient with Denny Lomeli CUSTOMER SERVICE ASSISTANT 03/17/2021 Hypertension Medical New Patient with Denny Lomeli CUSTOMER SERVICE ASSISTANT 03/17/2021 Morbid obesity Medical New Patient with Denny Lomeli CUSTOMER SERVICE ASSISTANT 03/17/2021 Post-traumatic stress disorder Medical N ew Patient with Denny Lomeli CNP 03/17/2021 Z68.42 - Body mass index [BM I] 45.0-49.9, adult Medical New Patient with Denny Lomeli CNP 03/17/2021 [facility] Work Phone: 1(879) 458-531805-26-2021 Evaluation note Includes: Assessments for all patient encounters Findings Encounter Date Post-traumatic stress disorder BH Establ ished Patient [...] New Patient with Denny Lomeli CNP 03/17/2021 [facility] Work Phone: 1(221) 937-536105-26-2021 History general Narrative - Reported Includes: Medical History in patient's chart Description Last Updated History of gynecologic disorder 03/17/20 21 History of Polycystic Ovarian Syndrome ( PCOS) 03/17/2021 History of anxiety disorder NOS 03/17/20 21 History of migraine headache 03/17/2021 History of psychiatric disorders biopola r disorder 03/17/2021 [facility] Work Phone: 1(181) 206-931505-26-2021 History general Narrative - Reported Includes: Medical History in patient's chart Description Last Updated Exposure to COVID-19 04/23/2021 Previous hospitalizations 04/23/2021 History of gynecologic disorder 03/17/20 21 History of Polycystic Ovarian Syndrome ( PCOS) 03/17/2021 History of anxiety disorder NOS 03/17/20 21 History of migraine headache 03/17/2021 History of psychiatric disorders biopola r disorder 03/17/2021 [facility] Work Phone: Evaluation note* Diagnosis Depression with suicidal ideation- Primary documented in this encounter [facility] Phone: evaluation note Includes: Assessments for all patient encounters Findings Encounter Date Morbid obesity Medical Established Patient with Denny Armani CUSTOMER SERVICE ASSISTANT 04/23/2021 Otitis externa Medical Established Patient with Denny Armani CUSTOMER SERVICE ASSISTANT 04/23/2021 Z68.42 - Body mass index [BM I] 45.0-49.9, adult Medical Established Patient with Denny Armani CUSTOMER SERVICE ASSISTANT 04/23/2021 Post-traumatic stress disorder BH Establ ished Patient with Kinga Short LISWS 04/01/2021 Morbid obesity Medical Established Patient with Denny Armani CUSTOMER SERVICE ASSISTANT 04/01/2021 Z68.42 - Body mass index [BM I] 45.0-49.9, adult Medical Established Patient with Denny Armani CUSTOMER SERVICE ASSISTANT 04/01/2021 Post-traumatic stress disorder BH Establ ished Patient with Kinga Short LISWS 03/17/2021 Assessment of visit for: lloyd strange for human immunodeficiency virus Medical New Patient with Denny Armani CUSTOMER SERVICE ASSISTANT 03/17/2021 Diabetes Risk Test Score was one score 03/17/2021 Medical New Patient with Denny Armani CUSTOMER SERVICE ASSISTANT 03/17/2021 Hypertension Medical New Patient with Denny Armani CUSTOMER SERVICE ASSISTANT 03/17/2021 Morbid obesity Medical New Patient with Denny Armani CUSTOMER SERVICE ASSISTANT 03/17/2021 Post-traumatic stress disorder Medical N ew Patient with Denny Armani CUSTOMER SERVICE ASSISTANT 03/17/2021 Z68.42 - Body mass index [BM I] 45.0-49.9, adult Medical New Patient with Denny Armani CUSTOMER SERVICE ASSISTANT 03/17/2021 [facility] Work Phone: Evaluation note* Diagnosis Anxiety state- Primary Anxiety state, unspecified documented in this encounter [facility] Phone: evaluation note* Diagnosis Bipolar 1 disorder (HCC)- Primary Bipolar I disorder, most recent episode (or current) unspecified Homicidal ideation documented in this encounter [facility] Phone: evaljkywiz note* Diagnosis Tachycardia Tachycardia, unspecified documented in this encounter [facility] Phone: evaluation note Includes: Assessments for all patient encounters Findings Encounter Date [D50.9 - Iron deficiency ane eduardo, unspecified] iron deficiency anemia Chart Update with Denny Lomeli CUSTOMER SERVICE ASSISTANT 07/29/2024 Last Documented On 4 12:07PM ; [facility] Attention-deficit hyperactivity disorder Established Patient with Sarai Alberts [employer]AC[employer] PROGRAMMER 07/18/2024 Last Documented On 4 4:15PM ; [facility] Bipolar I disorder, most rec ent episode, depressed - mild BH Established Patient with Sarai Alberts ORACLE PROGRAMMER 07/18/2024 Last Documented On 4 4:15PM ; [facility] Nicotine dependence Established Patient with Sarai Alberts ORACLE PROGRAMMER 07/18/2024 Last Documented On 4 4:15PM ; [facility] Post-traumatic stress disorder Establ ished Patient with Sarai Alberts ORACLE PROGRAMMER 07/18/2024 Last Documented On 4 4:15PM ; [facility] [Z68.43 - Body mass index [B PA] 50.0-59.9, adult] assessment of body mass index Medical Established Patient with Denny Lomeli CUSTOMER SERVICE ASSISTANT 07/18/2024 Last Documented On 4 1:56PM ; [facility] Bipolar I disorder, most rec ent episode, depressed - mild Medical Established Patient with Dennyartem Lomeli CUSTOMER SERVICE ASSISTANT 07/18/2024 Last Documented On 4 1:56PM ; [facility] Caries Medical Established Patient with Denny Lomeli CUSTOMER SERVICE ASSISTANT 07/18/2024 Last Documented On 4 1:56PM ; [facility] Encounter for Immunization Medical Estab lished Patient with Denny Lomeli CUSTOMER SERVICE ASSISTANT 07/18/2024 Last Documented On 4 1:56PM ; [facility] Type 2 diabetes mellitus wit hout complication Medical Established Patient with Dennyartem Landonen CUSTOMER SERVICE ASSISTANT 07/18/2024 Last Documented On 4 1:56PM ; [facility] Attention-deficit hyperactivity disorder Established Patient with Kinga Short LISWS 06/13/2024 Last Documented On 4 3:28PM ; [facility] Bipolar I disorder, most rec ent episode, depressed - mild Established Patient with Kinga Short LISWS 06/13/2024 Last Documented On 4 3:28PM ; [facility] Post-traumatic stress disorder BH Establ ished Patient with Kinga Short LISWS 06/13/2024 Last Documented On 4 3:28PM ; [facility] [E11.9 - Type 2 diabetes gloria litus without complications] type 2 diabetes mellitus Medical Established Patient with Denny Lomeli CUSTOMER SERVICE ASSISTANT 06/13/2024 Last Documented On 4 7:36PM ; [facility] [F41.1 - Generalized anxiety disorder] generalized anxiety disorder Medical Established Patient with Denny Lomeli CUSTOMER SERVICE ASSISTANT 06/13/2024 Last Documented On 4 7:36PM ; [facility] [I10 - Essential (primary) hypertension] essential hypertension Medical Established Patient with Denny Lomeli CUSTOMER SERVICE ASSISTANT 06/13/2024 Last Documented On 4 7:36PM ; [facility] [N94.6 - Dysmenorrhea, unspe cified] dysmenorrhea Medical Established Patient with Denny Lomeli CUSTOMER SERVICE ASSISTANT 06/13/2024 Last Documented On 4 7:36PM ; [facility] [Z68.43 - Body mass index [B PA] 50.0-59.9, adult] assessment of body mass index Medical Established Patient with Denny Lomeli CUSTOMER SERVICE ASSISTANT 06/13/2024 Last Documented On 4 7:36PM ; [facility] Encounter for Immunization Medical Estab lished Patient with Denny Lomeli CUSTOMER SERVICE ASSISTANT 06/13/2024 Last Documented On 4 7:36PM ; [facility] Venipuncture was performed Medical Estab lished Patient with Denny Lomeli CUSTOMER SERVICE ASSISTANT 06/13/2024 Last Documented On 4 7:36PM ; [facility] Attention-deficit hyperactivity disorder Established Patient with Kinga Short LISWS 04/10/2024 Last Documented On 4 10:10AM ; [facility] Bipolar I disorder, most rec ent episode, depressed - mild Established Patient with Kinga Short LISWS 04/10/2024 Last Documented On 4 10:10AM ; [facility] Post-traumatic stress disorder Establ ished Patient with Kinga Short LISWS 04/10/2024 Last Documented On 4 10:10AM ; [facility] [D64.9 - Anemia, unspecified] anemia Med ical Established Patient with Dennyartem Lomeli CUSTOMER SERVICE ASSISTANT 04/10/2024 Last Documented On 4 6:51PM ; [facility] [Z68.43 - Body mass index [B PA] 50.0-59.9, adult] assessment of body mass index Medical Established Patient with Denny Lomeli CUSTOMER SERVICE ASSISTANT 04/10/2024 Last Documented On 4 6:51PM ; [facility] Bipolar affective disorder, current episode depressed, mild Established Patient with Kinga Short LISWS 01/17/2024 Last Documented On 4 5:16PM ; [facility] Post-traumatic stress disorder Establ ished Patient with Kinga Short LISWS 01/17/2024 Last Documented On 4 5:16PM ; [facility] Undifferentiated attention d eficit disorder Established Patient with Kinga Short LISWS 01/17/2024 Last Documented On 4 5:16PM ; [facility] Visit for: screening for disorder Est ablished Patient with Kinga Short LISWS 01/17/2024 Last Documented On 4 5:16PM ; [facility] [Z68.43 - Body mass index [B PA] 50.0-59.9, adult] assessment of body mass index Medical Established Patient with Denny Lomeli CUSTOMER SERVICE ASSISTANT 01/17/2024 Last Documented On 4 7:50PM ; [facility] Attention-deficit hyperactivity disorder Medical Established Patient with Dennyartem Landonen CUSTOMER SERVICE ASSISTANT 01/17/2024 Last Documented On 4 7:50PM ; [facility] Diabetes Risk Test Score was three score 01/17/2024 Medical Established Patient with Dennyartem Lomeli CUSTOMER SERVICE ASSISTANT 01/17/2024 Last Documented On 4 7:50PM ; [facility] Visit for: screening for STD Medical Est ablished Patient with Dennyartem Lomeli CUSTOMER SERVICE ASSISTANT 01/17/2024 Last Documented On 4 7:50PM ; [facility] [Z68.32 - Body mass index [B PA] 32.0-32.9, adult] assessment of body mass index Medical Established Patient with Denny Lomeli CUSTOMER SERVICE ASSISTANT 05/10/2023 Last Documented On 3 6:01PM ; [facility] Borderline personality disorder Medical Established Patient with Dennyartem Lomeli CUSTOMER SERVICE ASSISTANT 05/10/2023 Last Documented On 3 6:01PM ; [facility] Screening for diabetes mellitus Medical Established Patient with Dennyartem Landonen CUSTOMER SERVICE ASSISTANT 05/10/2023 Last Documented On 3 6:01PM ; [facility] Assessment of body mass index Medical Es tablished Patient with Denny Lomeli CUSTOMER SERVICE ASSISTANT 08/12/2022 Last Documented On 2 2:45PM ; [facility] Bipolar affective disorder, current episode manic [facility] with Belkis Velarde [facility] 06/16/2022 Last Documented On 2 3:22PM ; [facility] Bipolar affective disorder, current episode manic Established Patient with Belkis Velarde [facility] 06/15/2022 Last Documented On 2 2:28PM ; [facility] Bipolar affective disorder, current episode depressed, severe with psychosis [facility] with Belkis Velarde [facility] 06/15/2022 Last Documented On 2 3:29PM ; [facility] Assessment of body mass inde x [Body mass index [BMI] 50.0-59.9, adult] Open Access - Established with Leah Monique CUSTOMER SERVICE ASSISTANT 06/15/2022 Last Documented On 2 9:36AM ; [facility] Bipolar I disorder, most rec ent episode, manic Open Access - Established with Leah Monique CUSTOMER SERVICE ASSISTANT 06/15/2022 Last Documented On 2 9:36AM ; [facility] Post-traumatic stress disorder Establ ished Patient with Belkis Velarde [facility] 06/08/2022 Last Documented On 2 3:20PM ; [facility] No cough Medical Established Patient with Dennyartem Lomeli CUSTOMER SERVICE ASSISTANT 06/08/2022 Last Documented On 2 4:04PM ; [facility] Z68.43 - Body mass index [BM I] 50.0-59.9, adult Medical Established Patient with Dennyartem Lomeli [facility] 06/08/2022 Last Documented On 2 4:04PM ; [facility] Borderline personality disor kyree Pt reported hx of sx/dx Established Patient with Belkis Velarde [facility] 05/27/2022 Last Documented On 2 4:08PM ; [facility] Assessment of body mass inde x [Body mass index [BMI] 50.0-59.9, adult] Open Access - Established with Leah Amaya [facility] 05/27/2022 Last Documented On 2 7:41PM ; [facility] Diabetes Risk Test Score was three score 05/27/2022 Open Access - Established with Leah Monique [facility] 05/27/2022 Last Documented On 2 7:41PM ; [facility] Bipolar I disorder, most rec ent episode, manic [facility] 07/15/[facility]21 Last Documented On 1 1:35AM ; [facility] Borderline personality disorder Estab lished Patient with Eufemia Mcneil [facility] 07/15/2021 Last Documented On 1 1:35AM ; [facility] Post-traumatic stress disorder Establ ished Patient with [facility]uf[facility] 07/15/2021 Last Documented On 1 1:35AM ; [facility] Assessment of visit for: lloyd strange for human immunodeficiency virus Medical Established Patient with Dennyartem Landonen [facility] 07/15/2021 Last Documented On 1 2:56PM ; [facility] Nicotine dependence Medical Established Patient with Denny Armani [facility] 07/15/2021 Last Documented On 1 2:56PM ; [facility] Tachycardia Medical Established Patient with Denny Armani [facility] 07/15/2021 Last Documented On 1 2:56PM ; [facility] Z68.43 - Body mass index [BM I] 50.0-59.9, adult Medical Established Patient with Denny Lomeli CUSTOMER SERVICE ASSISTANT 07/15/2021 Last Documented On 1 2:56PM ; [facility] Bipolar I disorder, most rec ent episode, manic Established Patient with Kinga Short LISWS 06/17/2021 Last Documented On 1 10:17AM ; [facility] Borderline personality disor kyree per patient reported history Established Patient with Kinga Short LISWS 06/17/2021 Last Documented On 1 10:17AM ; [facility] Nicotine dependence Established Patient with Kinga Short LISWS 06/17/2021 Last Documented On 1 10:17AM ; [facility] Post-traumatic stress disorder Establ ished Patient with Kinga Short LISWS 06/17/2021 Last Documented On 1 10:17AM ; [facility] Body mass index Medical Established Patient with Denny Lomeli CUSTOMER SERVICE ASSISTANT 06/17/2021 Last Documented On 1 5:23PM ; [facility] Morbid obesity Medical Established Patient with Denny Armani CUSTOMER SERVICE ASSISTANT 06/17/2021 Last Documented On 1 5:23PM ; [facility] Nicotine dependence uncomplicated Medica l Established Patient with Dennyartem Lomeli CUSTOMER SERVICE ASSISTANT 06/17/2021 Last Documented On 1 5:23PM ; [facility] Z68.42 - Body mass index [BM I] 45.0-49.9, adult Medical Established Patient with Denny Lomeli CUSTOMER SERVICE ASSISTANT 06/17/2021 Last Documented On 1 5:23PM ; [facility] 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 disorders [place] with Teagan zuniga CUSTOMER SERVICE ASSISTANT 05/15/2021 Last Documented On 1 7:49AM ; [facility] Mood disorders, NOS per blaze ent reported history Established Patient with Kinga Short LISWS 04/23/2021 Last Documented On 1 7:15PM ; [facility] Post-traumatic stress disorder Establ ished Patient with Kinga Short LISWS 04/23/2021 Last Documented On 1 7:15PM ; [facility] Morbid obesity Medical Established Patient with Denny Armani CUSTOMER SERVICE ASSISTANT 04/23/2021 Last Documented On 12:31PM ; [facility] Otitis externa Medical Established Patient with Denny Armani CUSTOMER SERVICE ASSISTANT 04/23/2021 Last Documented On 12:31PM ; [facility] Z68.42 - Body mass index [BM I] 45.0-49.9, adult Medical Established Patient with Denny Armani CUSTOMER SERVICE ASSISTANT 04/23/2021 Last Documented On 1 12:31PM ; [facility] Post-traumatic stress disorder Establ ished Patient with Kinga Short LISWS 04/01/2021 Last Documented On 1 10:05PM ; [facility] Morbid obesity Medical Established Patient with Denny Armani CUSTOMER SERVICE ASSISTANT 04/01/2021 Last Documented On 1 4:45PM ; [facility] Z68.42 - Body mass index [BM I] 45.0-49.9, adult Medical Established Patient with Denny Armani CUSTOMER SERVICE ASSISTANT 04/01/2021 Last Documented On 1 4:45PM ; [facility] Post-traumatic stress disorder Establ ished Patient with Kinga Short LISWS 03/17/2021 Last Documented On 1 11:59AM ; [facility] Assessment of visit for: scr eening for human immunodeficiency virus Medical New Patient with Denny Armani CUSTOMER SERVICE ASSISTANT 03/17/2021 Last Documented On 1 4:06PM ; [facility] Diabetes Risk Test Score was one score 03/17/2021 Medical New Patient with Denny Armani CUSTOMER SERVICE ASSISTANT 03/17/2021 Last Documented On 1 4:06PM ; [facility] Hypertension Medical New Patient with Denny C chas CUSTOMER SERVICE ASSISTANT 03/17/2021 Last Documented On 1 4:06PM ; [facility] Morbid obesity Medical New Patient with Denny C chas CUSTOMER SERVICE ASSISTANT 03/17/2021 Last Documented On 1 4:06PM ; [facility] Post-traumatic stress disorder Medical New Patie nt with Denny Armani CUSTOMER SERVICE ASSISTANT 03/17/2021 Last Documented On 1 4:06PM ; [facility] Z68.42 - Body mass index [BM I] 45.0-49.9, adult Medical New Patient with Denny Lomeli CUSTOMER SERVICE ASSISTANT 03/17/2021 Last Documented On 1 4:06PM ; [facility] Work Phone: History of Present illness Narrative History of Present Illness not supported for this document type No [facility] of [facility] Work Phone: Hospital Discharge instructions* Instructions* Blanco [...] sent through Care Everywhere. * [facility] Disorder (Chinese) [facility] Instructions Instructions not supported for this document type No [facility]: Instructions Includes: Instructions for all patient encounters Education and Decision Aids were provided during visit for: Counseling/education [Use fo r free text] Last Documented On 4 7:40PM ; [facility] Discussed nutritional needs teach healthy choices including fruits and vegetables Last Documented On 4 7:14PM ; [facility] Patient education about a pr oper diet Last Documented On 4 7:14PM ; [facility] Discussed concerns about exe rcise : promote physical activity Last Documented On 4 7:14PM ; [facility] Not requesting contraception Last Documented On 4 7:14PM ; [facility] Discussed nutritional needs teach healthy choices including fruits and vegetables Last Documented On 3 5:15PM ; [facility] Patient education about a pr oper diet Last Documented On 3 5:15PM ; [facility] Discussed concerns about exe rcise : promote physical activity Last Documented On 3 5:15PM ; [facility] Discussed nutritional needs teach healthy choices including fruits and vegetables Last Documented On 2 1:42PM ; [facility] Patient education about a pr oper diet Last Documented On 2 1:42PM ; [facility] Discussed concerns about exe rcise : promote physical activity Last Documented On 2 1:42PM ; [facility] and supportive feedback; normalized emotions and feelings, also provided pt time to process any current stressors. ~Promoted and encouraged follow-through with scheduling psychiatric services Last Documented On 2 3:21PM ; [facility] provided supportive, empa thic listening and reflective feedback. ~Explored, encouraged, and supported the pt to discuss current sx/mood, assess risk for harm/need, coping mechanisms, support network and safety planning. ~Supported pt's plan to f/up with Dr. Carney, as planned at [place], [place]. ~Encouraged pt to use safety plan, if needed to ensure she remains safe Last Documented On 2 2:27PM ; [facility] Discussed nutritional needs teach healthy choices including fruits and vegetables Last Documented On 2 3:20PM ; [facility] Patient education about a pr oper diet Last Documented On 2 3:20PM ; [facility] Discussed concerns about exe rcise : promote physical activity ~ ~Will restart trazodone and prazosin ~ ~Patient is planning to have brother stay with her for a few days for emotional support ~ ~Follow up with PCP at next scheduled visit ~ ~Call psychiatrist office to schedule appt ~ ~Call counselor Last Documented On 2 9:35AM ; [facility] Provided supportive listenin g and empathic feedback; encouraged, explored, and supported the pt as she processed current symptoms, Issues, and concerns. ~Discussed past tx and explored current needs/options. Acknowledged and validated pt's thoughts and emotions. ~Explored coping mechanisms and support network; utilized opportunity for safety planning; promoted seeking positive support and seeking help, as needed Last Documented On 2 3:28PM ; [facility] provided active listenin g, support and helped pt process though current symptoms and stressor(s). Discussed and explored past effectiveness of medication; identified objectives and future goals; promoted use of healthy coping mechanisms, and self-care practices Last Documented On 2 3:19PM ; [facility] Reviewed side effects and Ri sks/Benefits analysis Last Documented On 2 3:19PM ; [facility] Discussed nutritional needs teach healthy choices including fruits and vegetables Last Documented On 2 3:15PM ; [facility] Patient education about a pr oper diet Last Documented On 2 3:15PM ; [facility] Discussed concerns about exe rcise : promote physical activity Last Documented On 2 3:15PM ; [facility] introduced pt to HPWO in tegrated model of care ~[facility] offered active listening and supportive feedback; normalized emotions and feelings, also provided pt time to process any current stressors ~[facility] discussed potential benefits of counseling and supported re-engaging, as needed. ~[facility] encouraged pt to continue to make time to implement self-care regimen and use coping methods, as needed Last Documented On 2 4:07PM ; [facility] Discussed nutritional needs teach healthy choices including fruits and vegetables Last Documented On 2 3:15PM ; [facility] Patient education about a pr oper diet Last Documented On 2 3:15PM ; [facility] Inquiry and counseling about medication administration and compliance Last Documented On 2 7:37PM ; [facility] Discussed concerns about exe rcise : promote physical activity Last Documented On 2 3:15PM ; [facility] Patient goals discussed Last Documented On 2 7:37PM ; [facility] Ansewred pt's questions re B orderlline Personality D/O and Bipolar D/O raised by psychiatrist at [place]. ~Validated and normalized patient?s feelings while assisting to process recent events Last Documented On 1 1:33AM ; [facility] Discussed nutritional needs teach healthy choices including fruits and vegetables Last Documented On 1 2:04PM ; [facility] Patient education about a pr oper diet Last Documented On 1 2:04PM ; [facility] Discussed concerns about exe rcise : promote physical activity Last Documented On 1 2:04PM ; [facility] provided active listenin g, support and helped patient process through current symptoms and stressors with ongoing mental health concerns and medication changes. ~[facility] discussed coping skills and supports that [...] ER Last Documented On 1 10:17AM ; [facility] Patient education about a pr oper diet Last Documented On 1 5:17PM ; [facility] Patient education about meal planning Last Documented On 1 5:17PM ; [facility] Education about changing eat ing habits Last Documented On 1 5:17PM ; [facility] Patient education about high fiber diet Last Documented On 1 5:17PM ; [facility] Patient education about low fat diet Last Documented On 1 5:17PM ; [facility] Patient education about low cholesterol diet Last Documented On 1 5:17PM ; [facility] Patient education about low carbohydrate diet Last Documented On 1 5:17PM ; [facility] Patient education about high protein diet Last Documented On 1 5:17PM ; [facility] offered active and suppo rtive listening, normalized emotions and feelings, and processed current stressors. ~[facility] discussed resources for finding a counselor and provided list of local resources. ~P discussed patients coping skills and supports and encouraged patient to continue to implement. ~[facility] reminded patient of crisis resources should they be needed Last Documented On 1 7:15PM ; [facility] Discussed nutritional needs teach healthy choices including fruits and vegetables Last Documented On 1 11:38AM ; [facility] Patient education about a pr oper diet Last Documented On 1 11:38AM ; [facility] Patient education about a pr oper diet Last Documented On 1 12:19PM ; [facility] Patient education about meal planning Last Documented On 1 12:19PM ; [facility] Education about changing eat ing habits Last Documented On 1 12:19PM ; [facility] Patient education about high fiber diet Last Documented On 12:19PM ; [facility] Patient education about low fat diet Last Documented On 1 12:19PM ; [facility] Patient education about low cholesterol diet Last Documented On 1 12:19PM ; [facility] Patient education about low carbohydrate diet Last Documented On 1 12:19PM ; [facility] Patient education about high protein diet Last Documented On 1 12:19PM ; [facility] Discussed concerns about exe rcise : promote physical activity Last Documented On 1 11:38AM ; [facility] provided active listenin g, support and helped patient process through current symptoms and stressors related to family conflict. ~[facility] discussed coping skills and supports with patient that can be implemented and reminded patient of ways to access additional resources. ~[facility] discussed crisis resources and plan. Patient has crisis resources still available should they be needed Last Documented On 1 7:04PM ; [facility] Discussed nutritional needs teach healthy choices including fruits and vegetables Last Documented On 1 3:57PM ; [facility] Patient education about a pr oper diet Last Documented On 1 3:57PM ; [facility] Discussed concerns about exe rcise : promote physical activity Last Documented On 1 3:57PM ; [facility] to [facility] integrated model of care. [facility] and PCP reassured patient of not sharing information with anyone unless she has signed a release for us to do so. ~[facility] provided active listening, support and helped patient process through current symptoms and stressors. ~[facility] discussed establishing counseling and psychiatry. [facility] discussed EMDR therapy and ways to find provider who does this type of therapy. ~[facility] discussed crisis resources should mood worsen, [facility] provided text hotline number for crisis. [facility] reviewed crisis plan with patient and patient is able to contact positive supports and family when feeling down Last Documented On 1 11:46AM ; [facility] Discussed nutritional needs teach healthy choices including fruits and vegetables Last Documented On 1 2:11PM ; [facility] Patient education about a pr oper diet Last Documented On 1 2:11PM ; [facility] Discussed concerns about exe rcise : promote physical activity Last Documented On 1 2:11PM ; [facility] Work Phone: Instructions Includes: Instructions for all patient encounters Education and Decision Aids were provided during visit for: [facility] offered active and suppo rtive listening and processed current stressors related to getting medications. ~[facility] discussed coping skills and supports to implement in daily routine. ~[facility] discussed progress patient has felt they have made recently and encouraged continued follow-up with providers to address health Last Documented On 4 5:16PM ; [facility] Discussed nutritional needs teach healthy choices including fruits and vegetables Last Documented On 4 7:14PM ; [facility] Patient education about a pr oper diet Last Documented On 4 7:14PM ; [facility] Discussed concerns about exe rcise : promote physical activity Last Documented On 4 7:14PM ; [facility] Not requesting contraception Last Documented On 4 7:14PM ; [facility] Discussed nutritional needs teach healthy choices including fruits and vegetables Last Documented On 3 5:15PM ; [facility] Patient education about a pr oper diet Last Documented On 3 5:15PM ; [facility] Discussed concerns about exe rcise : promote physical activity Last Documented On 3 5:15PM ; [facility] Discussed nutritional needs teach healthy choices including fruits and vegetables Last Documented On 2 1:42PM ; [facility] Patient education about a pr oper diet Last Documented On 2 1:42PM ; [facility] Discussed concerns about exe rcise : promote physical activity Last Documented On 2 1:42PM ; [facility] offered active listening and supportive feedback; normalized emotions and feelings, also provided pt time to process any current stressors. ~Promoted and encouraged follow-through with scheduling psychiatric services Last Documented On 2 3:21PM ; [facility] provided supportive, empa thic listening and reflective feedback. ~Explored, encouraged, and supported the pt to discuss current sx/mood, assess risk for harm/need, coping mechanisms, support network and safety planning. ~Supported pt's plan to f/up with Dr. Carney, as planned at [place], [place]. ~Encouraged pt to use safety plan, if needed to ensure she remains safe Last Documented On 2 2:27PM ; [facility] Discussed nutritional needs teach healthy choices including fruits and vegetables Last Documented On 2 3:20PM ; [facility] Patient education about a pr oper diet Last Documented On 2 3:20PM ; [facility] Discussed concerns about exe rcise : promote physical activity ~ ~Will restart trazodone and prazosin ~ ~Patient is planning to have brother stay with her for a few days for emotional support ~ ~Follow up with PCP at next scheduled visit ~ ~Call psychiatrist office to schedule appt ~ ~Call counselor Last Documented On 2 9:35AM ; [facility] Provided supportive listenin g and empathic feedback; encouraged, explored, and supported the pt as she processed current symptoms, Issues, and concerns. ~Discussed past tx and explored current needs/options. Acknowledged and validated pt's thoughts and emotions. ~Explored coping mechanisms and support network; utilized opportunity for safety planning; promoted seeking positive support and seeking help, as needed Last Documented On 2 3:28PM ; [facility] provided active listenin g, support and helped pt process though current symptoms and stressor(s). Discussed and explored past effectiveness of medication; identified objectives and future goals; promoted use of healthy coping mechanisms, and self-care practices Last Documented On 2 3:19PM ; [facility] Reviewed side effects and Ri sks/Benefits analysis Last Documented On 2 3:19PM ; [facility] Discussed nutritional needs teach healthy choices including fruits and vegetables Last Documented On 2 3:15PM ; [facility] Patient education about a pr oper diet Last Documented On 2 3:15PM ; [facility] Discussed concerns about exe rcise : promote physical activity Last Documented On 2 3:15PM ; [facility] introduced pt to HPWO in tegrated model of care ~[facility] offered active listening and supportive feedback; normalized emotions and feelings, also provided pt time to process any current stressors ~[facility] discussed potential benefits of counseling and supported re-engaging, as needed. ~[facility] encouraged pt to continue to make time to implement self-care regimen and use coping methods, as needed Last Documented On 2 4:07PM ; [facility] Discussed nutritional needs teach healthy choices including fruits and vegetables Last Documented On 2 3:15PM ; [facility] Patient education about a pr oper diet Last Documented On 2 3:15PM ; [facility] Inquiry and counseling about medication administration and compliance Last Documented On 2 7:37PM ; [facility] Discussed concerns about exe rcise : promote physical activity Last Documented On 2 3:15PM ; [facility] Patient goals discussed Last Documented On 2 7:37PM ; [facility] Ansewred pt's questions re B orderlline Personality D/O and Bipolar D/O raised by psychiatrist at [place]. ~Validated and normalized patient?s feelings while assisting to process recent events Last Documented On 1 1:33AM ; [facility] Discussed nutritional needs teach healthy choices including fruits and vegetables Last Documented On 1 2:04PM ; [facility] Patient education about a pr oper diet Last Documented On 1 2:04PM ; [facility] Discussed concerns about exe rcise : promote physical activity Last Documented On 1 2:04PM ; [facility] provided active listenin g, support and helped patient process through current symptoms and stressors with ongoing mental health concerns and medication changes. [facility] discussed coping skills and supports that patient is implementing. discussed implementing coping skills as discussed with counseling and attending weekly appointments as scheduled with counselor. Patient was encouraged to continue writing down concerns with medications and discuss with providers. [facility] reminded patient of crisis resources should they be needed. Patient reports having crisis resources and could return to ER Last Documented On 1 10:17AM ; [facility] Patient education about a pr oper diet Last Documented On 1 5:17PM ; [facility] Patient education about meal planning Last Documented On 1 5:17PM ; [facility] Education about changing eat ing habits Last Documented On 1 5:17PM ; [facility] Patient education about high fiber diet Last Documented On 1 5:17PM ; [facility] Patient education about low fat diet Last Documented On 1 5:17PM ; [facility] Patient education about low cholesterol diet Last Documented On 1 5:17PM ; [facility] Patient education about low carbohydrate diet Last Documented On 1 5:17PM ; [facility] Patient education about high protein diet Last Documented On 1 5:17PM ; [facility] offered active and suppo rtive listening, normalized emotions and feelings, and processed current stressors. [facility] discussed resources for finding a counselor and provided list of local resources. [facility] discussed patients coping skills and supports and encouraged patient to continue to implement. [facility] reminded patient of crisis resources should they be needed Last Documented On 1 7:15PM ; [facility] Discussed nutritional needs teach healthy choices including fruits and vegetables Last Documented On 1 11:38AM ; [facility] Patient education about a pr oper diet Last Documented On 1 11:38AM ; [facility] Patient education about a pr oper diet Last Documented On 1 12:19PM ; [facility] Patient education about meal planning Last Documented On 1 12:19PM ; [facility] Education about changing eat ing habits Last Documented On 1 12:19PM ; [facility] Patient education about high fiber diet Last Documented On 1 12:19PM ; [facility] Patient education about low fat diet Last Documented On 1 12:19PM ; [facility] Patient education about low cholesterol diet Last Documented On 1 12:19PM ; [facility] Patient education about low carbohydrate diet Last Documented On 1 12:19PM ; [facility] Patient education about high protein diet Last Documented On 1 12:19PM ; [facility] Discussed concerns about exe rcise : promote physical activity Last Documented On 1 11:38AM ; [facility] provided active listenin [facility], support and helped patient process through current symptoms and stressors related to family conflict. ~P discussed coping skills and supports with patient that can be implemented and reminded patient of ways to access additional resources. ~P discussed crisis resources and plan. Patient has crisis resources still available should they be needed Last Documented On 1 7:04PM ; [facility] Discussed nutritional needs teach healthy choices including fruits and vegetables Last Documented On 1 3:57PM ; [facility] Patient education about a pr oper diet Last Documented On 1 3:57PM ; [facility] Discussed concerns about exe rcise : promote physical activity Last Documented On 1 3:57PM ; [facility] integrated model of care. [facility] and PCP [...] [facility] provided text hotline number for crisis. [facility] reviewed crisis plan with patient and patient is able to contact positive supports and family when feeling down Last Documented On 1 11:46AM ; [facility] Discussed nutritional needs teach healthy choices including fruits and vegetables Last Documented On 1 2:11PM ; [facility] Patient education about a pr oper diet Last Documented On 1 2:11PM ; [facility] Discussed concerns about exe rcise : promote physical activity Last Documented On 1 2:11PM ; [facility] Work Phone: Instructions Includes: Instructions for all patient encounters Education and Decision Aids were provided during visit for: [facility] offered active and suppo rtive listening and processed current stressors related to getting medications. ~[facility] discussed coping skills and supports to implement in daily routine. ~[facility] discussed progress patient has felt they have made recently and encouraged continued follow-up with providers to address health Last Documented On 4 5:16PM ; [facility] Discussed nutritional needs teach healthy choices including fruits and vegetables Last Documented On 4 7:14PM ; [facility] Patient education about a pr oper diet Last Documented On 4 7:14PM ; [facility] Discussed concerns about exe rcise : promote physical activity Last Documented On 4 7:14PM ; [facility] Not requesting contraception Last Documented On 4 7:14PM ; [facility] Discussed nutritional needs teach healthy choices including fruits and vegetables Last Documented On 3 5:15PM ; [facility] Patient education about a pr oper diet Last Documented On 3 5:15PM ; [facility] Discussed concerns about exe rcise : promote physical activity Last Documented On 3 5:15PM ; [facility] Discussed nutritional needs teach healthy choices including fruits and vegetables Last Documented On 2 1:42PM ; [facility] Patient education about a pr oper diet Last Documented On 2 1:42PM ; [facility] Discussed concerns about exe rcise : promote physical activity Last Documented On 2 1:42PM ; [facility] offered active listening and supportive feedback; normalized emotions and feelings, also provided pt time to process any current stressors. ~Promoted and encouraged follow-through with scheduling psychiatric services Last Documented On 2 3:21PM ; [facility] provided supportive, empa thic listening and reflective feedback. ~Explored, encouraged, and supported the pt to discuss current sx/mood, assess risk for harm/need, coping mechanisms, support network and safety planning. ~Supported pt's plan to f/up with Dr. Carney, as planned at [place], [place]. ~Encouraged pt to use safety plan, if needed to ensure she remains safe Last Documented On 2 2:27PM ; [facility] Discussed nutritional needs teach healthy choices including fruits and vegetables Last Documented On 2 3:20PM ; [facility] Patient education about a pr oper diet Last Documented On 2 3:20PM ; [facility] Discussed concerns about exe rcise : promote physical activity ~ ~Will restart trazodone and prazosin ~ ~Patient is planning to have brother stay with her for a few days for emotional support ~ ~Follow up with PCP at next scheduled visit ~ ~Call psychiatrist office to schedule appt ~ ~Call counselor Last Documented On 2 9:35AM ; [facility] Provided supportive listenin g and empathic feedback; encouraged, explored, and supported the pt as she processed current symptoms, Issues, and concerns. ~Discussed past tx and explored current needs/options. Acknowledged and validated pt's thoughts and emotions. ~Explored coping mechanisms and support network; utilized opportunity for safety planning; promoted seeking positive support and seeking help, as needed Last Documented On 2 3:28PM ; [facility] provided active listenin g, support and helped pt process though current symptoms and stressor(s). Discussed and explored past effectiveness of medication; identified objectives and future goals; promoted use of healthy coping mechanisms, and self-care practices Last Documented On 2 3:19PM ; [facility] Reviewed side effects and Ri sks/Benefits analysis Last Documented On 2 3:19PM ; [facility] Discussed nutritional needs teach healthy choices including fruits and vegetables Last Documented On 2 3:15PM ; [facility] Patient education about a pr oper diet Last Documented On 2 3:15PM ; [facility] Discussed concerns about exe rcise : promote physical activity Last Documented On 2 3:15PM ; [facility] introduced pt to [facility] in tegrated model of care ~[facility] offered active listening and supportive feedback; normalized emotions and feelings, also provided pt time to process any current stressors ~[facility] discussed potential benefits of counseling and supported re-engaging, as needed. ~[facility] encouraged pt to continue to make time to implement self-care regimen and use coping methods, as needed Last Documented On 2 4:07PM ; [facility] Discussed nutritional needs teach healthy choices including fruits and vegetables Last Documented On 2 3:15PM ; [facility] Patient education about a pr oper diet Last Documented On 2 3:15PM ; [facility] Inquiry and counseling about medication administration and compliance Last Documented On 2 7:37PM ; [facility] Discussed concerns about exe rcise : promote physical activity Last Documented On 2 3:15PM ; [facility] Patient goals discussed Last Documented On 2 7:37PM ; [facility] Ansewred pt's questions re B orderlline Personality D/O and Bipolar D/O raised by psychiatrist at [place]. ~Validated and normalized patient?s feelings while assisting to process recent events Last Documented On 1 1:33AM ; [facility] Discussed nutritional needs teach healthy choices including fruits and vegetables Last Documented On 1 2:04PM ; [facility] Patient education about a pr oper diet Last Documented On 1 2:04PM ; [facility] Discussed concerns about exe rcise : promote physical activity Last Documented On 1 2:04PM ; [facility] provided active listenin g, support and helped patient process through current symptoms and stressors with ongoing mental health concerns and medication changes. [facility] discussed coping skills and supports that patient is implementing. discussed implementing coping skills as discussed with counseling and attending weekly appointments as scheduled with counselor. Patient was encouraged to continue writing down concerns with medications and discuss with providers. [facility] reminded patient of crisis resources should they be needed. Patient reports having crisis resources and could return to ER Last Documented On 1 10:17AM ; [facility] Patient education about a pr oper diet Last Documented On 5:17PM ; [facility] Patient education about meal planning Last Documented On 5:17PM ; [facility] Education about changing eat ing habits Last Documented On 5:17PM ; [facility] Patient education about high fiber diet Last Documented On 5:17PM ; [facility] Patient education about low fat diet Last Documented On 5:17PM ; [facility] Patient education about low cholesterol diet Last Documented On 5:17PM ; [facility] Patient education about low carbohydrate diet Last Documented On 5:17PM ; [facility] Patient education about high protein diet Last Documented On 5:17PM ; [facility] offered active and suppo rtive listening, normalized emotions and feelings, and processed current stressors. [facility] discussed resources for finding a counselor and provided list of local resources. [facility] discussed patients coping skills and supports and encouraged patient to continue to implement. [facility] reminded patient of crisis resources should they be needed Last Documented On 1 7:15PM ; [facility] Discussed nutritional needs teach healthy choices including fruits and vegetables Last Documented On 1 11:38AM ; [facility] Patient education about a pr oper diet Last Documented On 1 11:38AM ; [facility] Patient education about a pr oper diet Last Documented On 12:19PM ; [facility] Patient education about meal planning Last Documented On 12:19PM ; [facility] Education about changing eat ing habits Last Documented On 1 12:19PM ; [facility] Patient education about high fiber diet Last Documented On 1 12:19PM ; [facility] Patient education about low fat diet Last Documented On 1 12:19PM ; [facility] Patient education about low cholesterol diet Last Documented On 1 12:19PM ; [facility] Patient education about low carbohydrate diet Last Documented On 1 12:19PM ; [facility] Patient education about high protein diet Last Documented On 1 12:19PM ; [facility] Discussed concerns about exe rcise : promote physical activity Last Documented On 1 11:38AM ; [facility] provided active listenin g, support and helped patient process through current symptoms and stressors related to family conflict. ~P discussed coping skills and supports with patient that can be implemented and reminded patient of ways to access additional resources. ~[facility] discussed crisis resources and plan. Patient has crisis resources still available should they be needed Last Documented On 1 7:04PM ; [facility] Discussed nutritional needs teach healthy choices including fruits and vegetables Last Documented On 1 3:57PM ; [facility] Patient education about a pr oper diet Last Documented On 1 3:57PM ; [facility] Discussed concerns about exe rcise : promote physical activity Last Documented On 1 3:57PM ; [facility] integrated model of care. [facility] and PCP reassured patient of not sharing information with anyone unless she has signed a release for us to do so. ~P provided active listening, support and helped patient process through current symptoms and stressors. ~P discussed establishing counseling and psychiatry. P discussed EMDR therapy and ways to find provider who does this type of therapy. ~[facility] discussed crisis resources should mood worsen, P provided text hotline number for crisis. P reviewed crisis plan with patient and patient is able to contact positive supports and family when feeling down Last Documented On 1 11:46AM ; [facility] Discussed nutritional needs teach healthy choices including fruits and vegetables Last Documented On 1 2:11PM ; [facility] Patient education about a pr oper diet Last Documented On 1 2:11PM ; [facility] Discussed concerns about exe rcise : promote physical activity Last Documented On 1 2:11PM ; [facility] Work Phone: Instructions Includes: Instructions for all patient encounters Education and Decision Aids were provided during visit for: [facility] offered active and suppo rtive listening and processed current stressors. ~[facility] discussed coping skills and supports that can be implemented to manage increased anxiety and stressors. [facility] discussed potential of resuming counseling, even if for monthly visits to process ongoing stressors. ~[facility] encouraged patient to follow- up on referrals as discussed with PCP Last Documented On 4 10:08AM ; [facility] Discussed nutritional needs teach healthy choices including fruits and vegetables Last Documented On 4 4:46PM ; [facility] Patient education about a pr oper diet Last Documented On 4 4:46PM ; [facility] Discussed concerns about exe rcise : promote physical activity Last Documented On 4 4:46PM ; [facility] Not requesting contraception Last Documented On 4 4:46PM ; [facility] offered active and suppo rtive listening and processed current stressors related to getting medications. ~[facility] discussed coping skills and supports to implement in daily routine. ~[facility] discussed progress patient has felt they have made recently and encouraged continued follow-up with providers to address health Last Documented On 4 5:16PM ; [facility] Discussed nutritional needs teach healthy choices including fruits and vegetables Last Documented On 4 7:14PM ; [facility] Patient education about a pr oper diet Last Documented On 4 7:14PM ; [facility] Discussed concerns about exe rcise : promote physical activity Last Documented On 4 7:14PM ; [facility] Not requesting contraception Last Documented On 4 7:14PM ; [facility] Discussed nutritional needs teach healthy choices including fruits and vegetables Last Documented On 3 5:15PM ; [facility] Patient education about a pr oper diet Last Documented On 3 5:15PM ; [facility] Discussed concerns about exe rcise : promote physical activity Last Documented On 3 5:15PM ; [facility] Discussed nutritional needs teach healthy choices including fruits and vegetables Last Documented On 2 1:42PM ; [facility] Patient education about a pr oper diet Last Documented On 2 1:42PM ; [facility] Discussed concerns about exe rcise : promote physical activity Last Documented On 2 1:42PM ; [facility] active listening and supportive feedback; normalized emotions and feelings, also provided pt time to process any current stressors. ~Promoted and encouraged follow-through with scheduling psychiatric services Last Documented On 2 3:21PM ; [facility] provided supportive, empa thic listening and reflective feedback. ~Explored, encouraged, and supported the pt to discuss current sx/mood, assess risk for harm/need, coping mechanisms, support network and safety planning. ~Supported pt's plan to f/up with Dr. Carney, as planned at [place], [place]. ~Encouraged pt to use safety plan, if needed to ensure she remains safe Last Documented On 2 2:27PM ; [facility] Discussed nutritional needs teach healthy choices including fruits and vegetables Last Documented On 2 3:20PM ; [facility] Patient education about a pr oper diet Last Documented On 2 3:20PM ; [facility] Discussed concerns about exe rcise : promote physical activity ~ ~Will restart trazodone and prazosin ~ ~Patient is planning to have brother stay with her for a few days for emotional support ~ ~Follow up with PCP at next scheduled visit ~ ~Call psychiatrist office to schedule appt ~ ~Call counselor Last Documented On 2 9:35AM ; [facility] Provided supportive listenin g and empathic feedback; encouraged, explored, and supported the pt as she processed current symptoms, Issues, and concerns. ~Discussed past tx and explored current needs/options. Acknowledged and validated pt's thoughts and emotions. ~Explored coping mechanisms and support network; utilized opportunity for safety planning; promoted seeking positive support and seeking help, as needed Last Documented On 2 3:28PM ; [facility] provided active listenin g, support and helped pt process though current symptoms and stressor(s). Discussed and explored past effectiveness of medication; identified objectives and future goals; promoted use of healthy coping mechanisms, and self-care practices Last Documented On 2 3:19PM ; [facility] Reviewed side effects and Ri sks/Benefits analysis Last Documented On 2 3:19PM ; [facility] Discussed nutritional needs teach healthy choices including fruits and vegetables Last Documented On 2 3:15PM ; [facility] Patient education about a pr oper diet Last Documented On 2 3:15PM ; [facility] Discussed concerns about exe rcise : promote physical activity Last Documented On 2 3:15PM ; [facility] introduced pt to [facility] in tegrated model of care ~[facility] offered active listening and supportive feedback; normalized emotions and feelings, also provided pt time to process any current stressors ~[facility] discussed potential benefits of counseling and supported re-engaging, as needed. ~[facility] encouraged pt to continue to make time to implement self-care regimen and use coping methods, as needed Last Documented On 2 4:07PM ; [facility] Discussed nutritional needs teach healthy choices including fruits and vegetables Last Documented On 2 3:15PM ; [facility] Patient education about a pr oper diet Last Documented On 2 3:15PM ; [facility] Inquiry and counseling about medication administration and compliance Last Documented On 2 7:37PM ; [facility] Discussed concerns about exe rcise : promote physical activity Last Documented On 2 3:15PM ; [facility] Patient goals discussed Last Documented On 2 7:37PM ; [facility] Ansewred pt's questions re B orderlline Personality D/O and Bipolar D/O raised by psychiatrist at [place]. ~Validated and normalized patient?s feelings while assisting to process recent events Last Documented On 1 1:33AM ; [facility] Discussed nutritional needs teach healthy choices including fruits and vegetables Last Documented On 1 2:04PM ; [facility] Patient education about a pr oper diet Last Documented On 1 2:04PM ; [facility] Discussed concerns about exe rcise : promote physical activity Last Documented On 1 2:04PM ; [facility] provided active listenin g, support and helped patient process through current symptoms and stressors with ongoing mental health concerns and medication changes. ~[facility] discussed coping skills and supports that [...] ER Last Documented On 1 10:17AM ; [facility] Patient education about a pr oper diet Last Documented On 1 5:17PM ; [facility] Patient education about meal planning Last Documented On 1 5:17PM ; [facility] Education about changing eat ing habits Last Documented On 1 5:17PM ; [facility] Patient education about high fiber diet Last Documented On 1 5:17PM ; [facility] Patient education about low fat diet Last Documented On 1 5:17PM ; [facility] Patient education about low cholesterol diet Last Documented On 1 5:17PM ; [facility] Patient education about low carbohydrate diet Last Documented On 1 5:17PM ; [facility] Patient education about high protein diet Last Documented On 1 5:17PM ; [facility] offered active and suppo rtive listening, normalized emotions and feelings, and processed current stressors. ~[facility] discussed resources for finding a counselor and provided list of local resources. ~P discussed patients coping skills and supports and encouraged patient to continue to implement. ~[facility] reminded patient of crisis resources should they be needed Last Documented On 1 7:15PM ; [facility] Discussed nutritional needs teach healthy choices including fruits and vegetables Last Documented On 1 11:38AM ; [facility] Patient education about a pr oper diet Last Documented On 1 11:38AM ; [facility] Patient education about a pr oper diet Last Documented On 1 12:19PM ; [facility] Patient education about meal planning Last Documented On 1 12:19PM ; [facility] Education about changing eat ing habits Last Documented On 1 12:19PM ; [facility] Patient education about high fiber diet Last Documented On 1 12:19PM ; [facility] Patient education about low fat diet Last Documented On 1 12:19PM ; [facility] Patient education about low cholesterol diet Last Documented On 1 12:19PM ; [facility] Patient education about low carbohydrate diet Last Documented On 1 12:19PM ; [facility] Patient education about high protein diet Last Documented On 1 12:19PM ; [facility] Discussed concerns about exe rcise : promote physical activity Last Documented On 1 11:38AM ; [facility] provided active listenin g, support and helped patient process through current symptoms and stressors related to family conflict. ~[facility] discussed coping skills and supports with patient that can be implemented and reminded patient of ways to access additional resources. ~[facility] discussed crisis resources and plan. Patient has crisis resources still available should they be needed Last Documented On 1 7:04PM ; [facility] Discussed nutritional needs teach healthy choices including fruits and vegetables Last Documented On 1 3:57PM ; [facility] Patient education about a pr oper diet Last Documented On 1 3:57PM ; [facility] Discussed concerns about exe rcise : promote physical activity Last Documented On 1 3:57PM ; [facility] integrated model of care. [facility] and PCP reassured patient of not sharing information with anyone unless she has signed a release for us to do so. ~[facility] provided active listening, support and helped patient process through current symptoms and stressors. ~[facility] discussed establishing counseling and psychiatry. P discussed EMDR therapy and ways to find provider who does this type of therapy. ~[facility] discussed crisis resources should mood worsen, [facility] provided text hotline number for crisis. [facility] reviewed crisis plan with patient and patient is able to contact positive supports and family when feeling down Last Documented On 1 11:46AM ; [facility] Discussed nutritional needs teach healthy choices including fruits and vegetables Last Documented On 1 2:11PM ; [facility] [facility] Patient education about a pr oper diet Last Documented On 1 2:11PM ; [facility] Discussed concerns about exe rcise : promote physical activity Last Documented On 1 2:11PM ; [facility] Work Phone: Instructions Includes: Instructions for all patient encounters Education and Decision Aids were provided during visit for: Counseling/education [Use fo r free text] Last Documented On 4 6:27PM ; [facility] Discussed nutritional needs teach healthy choices including fruits and vegetables Last Documented On 4 4:51PM ; [facility] Patient education about a pr oper diet Last Documented On 4 4:51PM ; [facility] Discussed concerns about exe rcise : promote physical activity Last Documented On 4 4:51PM ; [facility] Referred Patient to a Diabet es Self-Management Program Last Documented On 4 5:22PM ; [facility] offered active and suppo rtive listening and processed current stressors. ~[facility] discussed coping skills and supports that can be implemented to manage increased anxiety and stressors. [facility] discussed potential of resuming counseling, even if for monthly visits to process ongoing stressors. ~[facility] encouraged patient to follow- up on referrals as discussed with PCP Last Documented On 4 10:08AM ; [facility] Discussed nutritional needs teach healthy choices including fruits and vegetables Last Documented On 4 4:46PM ; [facility] Patient education about a pr oper diet Last Documented On 4 4:46PM ; [facility] Discussed concerns about exe rcise : promote physical activity Last Documented On 4 4:46PM ; [facility] Not requesting contraception Last Documented On 4 4:46PM ; [facility] offered active and suppo rtive listening and processed current stressors related to getting medications. ~P discussed coping skills and supports to implement in daily routine. ~P discussed progress patient has felt they have made recently and encouraged continued follow-up with providers to address health Last Documented On 4 5:16PM ; [facility] Discussed nutritional needs teach healthy choices including fruits and vegetables Last Documented On 4 7:14PM ; [facility] Patient education about a pr oper diet Last Documented On 4 7:14PM ; [facility] Discussed concerns about exe rcise : promote physical activity Last Documented On 4 7:14PM ; [facility] Not requesting contraception Last Documented On 4 7:14PM ; [facility] Discussed nutritional needs teach healthy choices including fruits and vegetables Last Documented On 3 5:15PM ; [facility] Patient education about a pr oper diet Last Documented On 3 5:15PM ; [facility] Discussed concerns about exe rcise : promote physical activity Last Documented On 3 5:15PM ; [facility] Discussed nutritional needs teach healthy choices including fruits and vegetables Last Documented On 2 1:42PM ; [facility] Patient education about a pr oper diet Last Documented On 2 1:42PM ; [facility] Discussed concerns about exe rcise : promote physical activity Last Documented On 2 1:42PM ; [facility] offered active listening and supportive feedback; normalized emotions and feelings, also provided pt time to process any current stressors. ~Promoted and encouraged follow-through with scheduling psychiatric services Last Documented On 2 3:21PM ; [facility] provided supportive, empa thic listening and reflective feedback. ~Explored, encouraged, and supported the pt to discuss current sx/mood, assess risk for harm/need, coping mechanisms, support network and safety planning. ~Supported pt's plan to f/up with Dr. Carney, as planned at [place], [place]. ~Encouraged pt to use safety plan, if needed to ensure she remains safe Last Documented On 2 2:27PM ; [facility] Discussed nutritional needs teach healthy choices including fruits and vegetables Last Documented On 2 3:20PM ; [facility] Patient education about a pr oper diet Last Documented On 2 3:20PM ; [facility] Discussed concerns about exe rcise : promote physical activity ~ ~Will restart trazodone and prazosin ~ ~Patient is planning to have brother stay with her for a few days for emotional support ~ ~Follow up with PCP at next scheduled visit ~ ~Call psychiatrist office to schedule appt ~ ~Call counselor Last Documented On 2 9:35AM ; [facility] Provided supportive listenin g and empathic feedback; encouraged, explored, and supported the pt as she processed current symptoms, Issues, and concerns. ~Discussed past tx and explored current needs/options. Acknowledged and validated pt's thoughts and emotions. ~Explored coping mechanisms and support network; utilized opportunity for safety planning; promoted seeking positive support and seeking help, as needed Last Documented On 2 3:28PM ; [facility] provided active listenin g, support and helped pt process though current symptoms and stressor(s). Discussed and explored past effectiveness of medication; identified objectives and future goals; promoted use of healthy coping mechanisms, and self-care practices Last Documented On 2 3:19PM ; [facility] Reviewed side effects and Ri sks/Benefits analysis Last Documented On 2 3:19PM ; [facility] Discussed nutritional needs teach healthy choices including fruits and vegetables Last Documented On 2 3:15PM ; [facility] Patient education about a pr oper diet Last Documented On 2 3:15PM ; [facility] Discussed concerns about exe rcise : promote physical activity Last Documented On 2 3:15PM ; [facility] introduced pt to HPWO in tegrated model [...] needed Last Documented On 2 4:07PM ; [facility] Discussed nutritional needs teach healthy choices including fruits and vegetables Last Documented On 2 3:15PM ; [facility] Patient education about a pr oper diet Last Documented On 2 3:15PM ; [facility] Inquiry and counseling about medication administration and compliance Last Documented On 2 7:37PM ; [facility] Discussed concerns about exe rcise : promote physical activity Last Documented On 2 3:15PM ; [facility] Patient goals discussed Last Documented On 2 7:37PM ; [facility] Ansewred pt's questions re B orderlline Personality D/O and Bipolar D/O raised by psychiatrist at [place]. ~Validated and normalized patient?s feelings while assisting to process recent events Last Documented On 1 1:33AM ; [facility] Discussed nutritional needs teach healthy choices including fruits and vegetables Last Documented On 1 2:04PM ; [facility] Patient education about a pr oper diet Last Documented On 1 2:04PM ; [facility] Discussed concerns about exe rcise : promote physical activity Last Documented On 1 2:04PM ; [facility] provided active listenin g, support and helped patient process through current symptoms and stressors with ongoing mental health concerns and medication changes. ~[facility] discussed coping skills and supports that patient is implementing. discussed implementing coping skills as discussed with counseling and attending weekly appointments as scheduled with counselor. Patient was encouraged to continue writing down concerns with medications and discuss with providers. ~[facility] reminded patient of crisis resources should they be needed. Patient reports having crisis resources and could return to ER Last Documented On 1 10:17AM ; [facility] Patient education about a pr oper diet Last Documented On 1 5:17PM ; [facility] Patient education about meal planning Last Documented On 5:17PM ; [facility] Education about changing eat ing habits Last Documented On 5:17PM ; [facility] Patient education about high fiber diet Last Documented On 5:17PM ; [facility] Patient education about low fat diet Last Documented On 1 5:17PM ; [facility] Patient education about low cholesterol diet Last Documented On 5:17PM ; [facility] Patient education about low carbohydrate diet Last Documented On 5:17PM ; [facility] Patient education about high protein diet Last Documented On 5:17PM ; [facility] offered active and suppo rtive listening, normalized emotions and feelings, and processed current stressors. ~[facility] discussed resources for finding a counselor and provided list of local resources. ~[facility] discussed patients coping skills and supports and encouraged patient to continue to implement. ~[facility] reminded patient of crisis resources should they be needed Last Documented On 7:15PM ; [facility] Discussed nutritional needs teach healthy choices including fruits and vegetables Last Documented On 11:38AM ; [facility] Patient education about a pr oper diet Last Documented On 11:38AM ; [facility] Patient education about a pr oper diet Last Documented On 1 12:19PM ; [facility] Patient education about meal planning Last Documented On 1 12:19PM ; [facility] Education about changing eat ing habits Last Documented On 12:19PM ; [facility] Patient education about high fiber diet Last Documented On 12:19PM ; [facility] Patient education about low fat diet Last Documented On 12:19PM ; [facility] Patient education about low cholesterol diet Last Documented On 12:19PM ; [facility] Patient education about low carbohydrate diet Last Documented On 1 12:19PM ; [facility] Patient education about high protein diet Last Documented On 1 12:19PM ; [facility] Discussed concerns about exe rcise : promote physical activity Last Documented On 1 11:38AM ; [facility] provided active listenin g, support and helped patient process through current symptoms and stressors related to family conflict. ~[facility] discussed coping skills and supports with patient that can be implemented and reminded patient of ways to access additional resources. ~[facility] discussed crisis resources and plan. Patient has crisis resources still available should they be needed Last Documented On 1 7:04PM ; [facility] Discussed nutritional needs teach healthy choices including fruits and vegetables Last Documented On 1 3:57PM ; [facility] Patient education about a pr oper diet Last Documented On 1 3:57PM ; [facility] Discussed concerns about exe rcise : promote physical activity Last Documented On 1 3:57PM ; [facility] introduced patient to [facility] integrated model of care. P and PCP reassured patient of not sharing information with anyone unless she has signed a release for us to do so. ~[facility] provided active listening, support and helped patient process through current symptoms and stressors. ~[facility] discussed establishing counseling and psychiatry. [facility] discussed EMDR therapy and ways to find provider who does this type of therapy. ~[facility] discussed crisis resources should mood worsen, [facility] provided text hotline number for crisis. [facility] reviewed crisis plan with patient and patient is able to contact positive supports and family when feeling down Last Documented On 1 11:46AM ; [facility] Discussed nutritional needs teach healthy choices including fruits and vegetables Last Documented On 1 2:11PM ; [facility] Patient education about a pr oper diet Last Documented On 1 2:11PM ; [facility] Discussed concerns about exe rcise : promote physical activity Last Documented On 1 2:11PM ; [facility] Work Phone: Instructions Includes: Instructions for all patient encounters Education and Decision Aids were provided during visit for: P offered active and suppo rtive listening and processed recent stressors. ~P discussed coping skills and supports to implement in managing increased anxiety such as tools learned previously in therapy. ~P discussed sleep hygiene strategies that can be implemented. ~P encouraged patient to follow-up with specialists as scheduled Last Documented On 4 3:26PM ; [facility] Discussed nutritional needs teach healthy choices including fruits and vegetables Last Documented On 4 4:51PM ; [facility] Patient education about a pr oper diet Last Documented On 4 4:51PM ; [facility] Discussed concerns about exe rcise : promote physical activity Last Documented On 4 4:51PM ; [facility] Referred Patient to a Diabet es Self-Management Program Last Documented On 4 5:22PM ; [facility] offered active and suppo rtive listening and processed current stressors. ~[facility] discussed coping skills and supports that can be implemented to manage increased anxiety and stressors. [facility] discussed potential of resuming counseling, even if for monthly visits to process ongoing stressors. ~[facility] encouraged patient to follow- up on referrals as discussed with PCP Last Documented On 4 10:08AM ; [facility] Discussed nutritional needs teach healthy choices including fruits and vegetables Last Documented On 4 4:46PM ; [facility] Patient education about a pr oper diet Last Documented On 4 4:46PM ; [facility] Discussed concerns about exe rcise : promote physical activity Last Documented On 4 4:46PM ; [facility] Not requesting contraception Last Documented On 4 4:46PM ; [facility] offered active and suppo rtive listening and processed current stressors related to getting medications. ~P discussed coping skills and supports to implement in daily routine. ~P discussed progress patient has felt they have made recently and encouraged continued follow-up with providers to address health Last Documented On 4 5:16PM ; [facility] Discussed nutritional needs teach healthy choices including fruits and vegetables Last Documented On 4 7:14PM ; [facility] Patient education about a pr oper diet Last Documented On 4 7:14PM ; [facility] Discussed concerns about exe rcise : promote physical activity Last Documented On 4 7:14PM ; [facility] Not requesting contraception Last Documented On 4 7:14PM ; [facility] Discussed nutritional needs teach healthy choices including fruits and vegetables Last Documented On 3 5:15PM ; [facility] Patient education about a pr oper diet Last Documented On 3 5:15PM ; [facility] Discussed concerns about exe rcise : promote physical activity Last Documented On 3 5:15PM ; [facility] Discussed nutritional needs teach healthy choices including fruits and vegetables Last Documented On 2 1:42PM ; [facility] Patient education about a pr oper diet Last Documented On 2 1:42PM ; [facility] Discussed concerns about exe rcise : promote physical activity Last Documented On 2 1:42PM ; [facility] and supportive feedback; normalized emotions and feelings, also provided pt time to process any current stressors. ~Promoted and encouraged follow-through with scheduling psychiatric services Last Documented On 2 3:21PM ; [facility] provided supportive, empa thic listening and reflective feedback. ~Explored, encouraged, and supported the pt to discuss current sx/mood, assess risk for harm/need, coping mechanisms, support network and safety planning. ~Supported pt's plan to f/up with Dr. Carney, as planned at [place], [place]. ~Encouraged pt to use safety plan, if needed to ensure she remains safe Last Documented On 2 2:27PM ; [facility] Discussed nutritional needs teach healthy choices including fruits and vegetables Last Documented On 2 3:20PM ; [facility] Patient education about a pr oper diet Last Documented On 2 3:20PM ; [facility] Discussed concerns about exe rcise : promote physical activity ~ ~Will restart trazodone and prazosin ~ ~Patient is planning to have brother stay with her for a few days for emotional support ~ ~Follow up with PCP at next scheduled visit ~ ~Call psychiatrist office to schedule appt ~ ~Call counselor Last Documented On 2 9:35AM ; [facility] Provided supportive listenin g and empathic feedback; encouraged, explored, and supported the pt as she processed current symptoms, Issues, and concerns. ~Discussed past tx and explored current needs/options. Acknowledged and validated pt's thoughts and emotions. ~Explored coping mechanisms and support network; utilized opportunity for safety planning; promoted seeking positive support and seeking help, as needed Last Documented On 2 3:28PM ; [facility] provided active listenin g, support and helped pt process though current symptoms and stressor(s). Discussed and explored past effectiveness of medication; identified objectives and future goals; promoted use of healthy coping mechanisms, and self-care practices Last Documented On 2 3:19PM ; [facility] Reviewed side effects and Ri sks/Benefits analysis Last Documented On 2 3:19PM ; [facility] Discussed nutritional needs teach healthy choices including fruits and vegetables Last Documented On 2 3:15PM ; [facility] Patient education about a pr oper diet Last Documented On 2 3:15PM ; [facility] Discussed concerns about exe rcise : promote physical activity Last Documented On 2 3:15PM ; [facility] introduced pt to HPWO in tegrated model of care ~[facility] offered active listening and supportive feedback; normalized emotions and feelings, also provided pt time to process any current stressors ~[facility] discussed potential benefits of counseling and supported re-engaging, as needed. ~[facility] encouraged pt to continue to make time to implement self-care regimen and use coping methods, as needed Last Documented On 2 4:07PM ; [facility] Discussed nutritional needs teach healthy choices including fruits and vegetables Last Documented On 2 3:15PM ; [facility] Patient education about a pr oper diet Last Documented On 2 3:15PM ; [facility] Inquiry and counseling about medication administration and compliance Last Documented On 2 7:37PM ; [facility] Discussed concerns about exe rcise : promote physical activity Last Documented On 2 3:15PM ; [facility] Patient goals discussed Last Documented On 2 7:37PM ; [facility] Ansewred pt's questions re B orderlline Personality D/O and Bipolar D/O raised by psychiatrist at [place]. ~Validated and normalized patient?s feelings while assisting to process recent events Last Documented On 1 1:33AM ; [facility] Discussed nutritional needs teach healthy choices including fruits and vegetables Last Documented On 1 2:04PM ; [facility] Patient education about a pr oper diet Last Documented On 1 2:04PM ; [facility] Discussed concerns about exe rcise : promote physical activity Last Documented On 1 2:04PM ; [facility] provided active listenin g, support and helped patient process through current symptoms and stressors with ongoing mental health concerns and medication changes. ~[facility] discussed coping skills and supports that patient is implementing. discussed implementing coping skills as discussed with counseling and attending weekly appointments as scheduled with counselor. Patient was encouraged to continue writing down concerns with medications and discuss with providers. ~[facility] reminded patient of crisis resources should they be needed. Patient reports having crisis resources and could return to ER Last Documented On 1 10:17AM ; [facility] Patient education about a pr oper diet Last Documented On 1 5:17PM ; [facility] Patient education about meal planning Last Documented On 1 5:17PM ; [facility] Education about changing eat ing habits Last Documented On 1 5:17PM ; [facility] Patient education about high fiber diet Last Documented On 1 5:17PM ; [facility] Patient education about low fat diet Last Documented On 1 5:17PM ; [facility] Patient education about low cholesterol diet Last Documented On 1 5:17PM ; [facility] Patient education about low carbohydrate diet Last Documented On 1 5:17PM ; [facility] Patient education about high protein diet Last Documented On 1 5:17PM ; [facility] offered active and suppo rtive listening, normalized emotions and feelings, and processed current stressors. ~[facility] discussed resources for finding a counselor and provided list of local resources. ~[facility] discussed patients coping skills and supports and encouraged patient to continue to implement. ~[facility] reminded patient of crisis resources should they be needed Last Documented On 1 7:15PM ; [facility] Discussed nutritional needs teach healthy choices including fruits and vegetables Last Documented On 1 11:38AM ; [facility] Patient education about a pr oper diet Last Documented On 1 11:38AM ; [facility] Patient education about a pr oper diet Last Documented On 1 12:19PM ; [facility] Patient education about meal planning Last Documented On 12:19PM ; [facility] Education about changing eat ing habits Last Documented On 1 12:19PM ; [facility] Patient education about high fiber diet Last Documented On 1 12:19PM ; [facility] Patient education about low fat diet Last Documented On 1 12:19PM ; [facility] Patient education about low cholesterol diet Last Documented On 1 12:19PM ; [facility] Patient education about low carbohydrate diet Last Documented On 1 12:19PM ; [facility] Patient education about high protein diet Last Documented On 1 12:19PM ; [facility] Discussed concerns about exe rcise : promote physical activity Last Documented On 1 11:38AM ; [facility] provided active listenin g, support and helped patient process through current symptoms and stressors related to family conflict. ~[facility] discussed coping skills and supports with patient that can be implemented and reminded patient of ways to access additional resources. ~[facility] discussed crisis resources and plan. Patient has crisis resources still available should they be needed Last Documented On 1 7:04PM ; [facility] Discussed nutritional needs teach healthy choices including fruits and vegetables Last Documented On 1 3:57PM ; [facility] Patient education about a pr oper diet Last Documented On 1 3:57PM ; [facility] Discussed concerns about exe rcise : promote physical activity Last Documented On 1 3:57PM ; [facility] introduced patient to [facility] integrated model of care. [facility] and PCP reassured patient of not sharing information with anyone unless she has signed a release for us to do so. ~P provided active listening, support and helped patient process through current symptoms and stressors. ~P discussed establishing counseling and psychiatry. P discussed EMDR therapy and ways to find provider who does this type of therapy. ~[facility] discussed crisis resources should mood worsen, [facility] provided text hotline number for crisis. [facility] reviewed crisis plan with patient and patient is able to contact positive supports and family when feeling down Last Documented On 1 11:46AM ; [facility] Discussed nutritional needs teach healthy choices including fruits and vegetables Last Documented On 1 2:11PM ; [facility] Patient education about a pr oper diet Last Documented On 1 2:11PM ; [facility] Discussed concerns about exe rcise : promote physical activity Last Documented On 1 2:11PM ; [facility] Work Phone: Instructions Includes: Instructions for all patient encounters Education and Decision Aids were provided during visit for: ~*[facility] offered active and sup portive listening, normalized emotions and feelings, and processed ~current stressors. ~*Discussed engageing in counseling and looking into EMDR to address PTSD and increased nightmares Last Documented On 4 4:14PM ; [facility] Discussed nutritional needs teach healthy choices including fruits and vegetables Last Documented On 4 4:33PM ; [facility] Patient education about a pr oper diet Last Documented On 4 4:33PM ; [facility] Discussed concerns about exe rcise : promote physical activity Last Documented On 4 4:33PM ; [facility] offered active and suppo rtive listening and processed recent stressors. ~[facility] discussed coping skills and supports to implement in managing increased anxiety such as tools learned previously in therapy. ~P discussed sleep hygiene strategies that can be implemented. ~P encouraged patient to follow-up with specialists as scheduled Last Documented On 4 3:26PM ; [facility] Discussed nutritional needs teach healthy choices including fruits and vegetables Last Documented On 4 4:51PM ; [facility] Patient education about a pr oper diet Last Documented On 4 4:51PM ; [facility] Discussed concerns about exe rcise : promote physical activity Last Documented On 4 4:51PM ; [facility] Referred Patient to a Diabet es Self-Management Program Last Documented On 4 5:22PM ; [facility] active and suppo rtive listening and processed current stressors. ~P discussed coping skills and supports that can be implemented to manage increased anxiety and stressors. P discussed potential of resuming counseling, even if for monthly visits to process ongoing stressors. ~[facility] encouraged patient to follow- up on referrals as discussed with PCP Last Documented On 4 10:08AM ; [facility] Discussed nutritional needs teach healthy choices including fruits and vegetables Last Documented On 4 4:46PM ; [facility] Patient education about a pr oper diet Last Documented On 4 4:46PM ; [facility] Discussed concerns about exe rcise : promote physical activity Last Documented On 4 4:46PM ; [facility] Not requesting contraception Last Documented On 4 4:46PM ; [facility] offered active and suppo rtive listening and processed current stressors related to getting medications. ~P discussed coping skills and supports to implement in daily routine. ~P discussed progress patient has felt they have made recently and encouraged continued follow-up with providers to address health Last Documented On 4 5:16PM ; [facility] Discussed nutritional needs teach healthy choices including fruits and vegetables Last Documented On 4 7:14PM ; [facility] Patient education about a pr oper diet Last Documented On 4 7:14PM ; [facility] Discussed concerns about exe rcise : promote physical activity Last Documented On 4 7:14PM ; [facility] Not requesting contraception Last Documented On 4 7:14PM ; [facility] Discussed nutritional needs teach healthy choices including fruits and vegetables Last Documented On 3 5:15PM ; [facility] Patient education about a pr oper diet Last Documented On 3 5:15PM ; [facility] Discussed concerns about exe rcise : promote physical activity Last Documented On 3 5:15PM ; [facility] Discussed nutritional needs teach healthy choices including fruits and vegetables Last Documented On 2 1:42PM ; [facility] Patient education about a pr oper diet Last Documented On 2 1:42PM ; [facility] Discussed concerns about exe rcise : promote physical activity Last Documented On 2 1:42PM ; [facility] active listening and supportive feedback; normalized emotions and feelings, also provided pt time to process any current stressors. ~Promoted and encouraged follow-through with scheduling psychiatric services Last Documented On 2 3:21PM ; [facility] provided supportive, empa thic listening and reflective feedback. ~Explored, encouraged, and supported the pt to discuss current sx/mood, assess risk for harm/need, coping mechanisms, support network and safety planning. ~Supported pt's plan to f/up with Dr. Carney, as planned at [place], [place]. ~Encouraged pt to use safety plan, if needed to ensure she remains safe Last Documented On 2 2:27PM ; [facility] Discussed nutritional needs teach healthy choices including fruits and vegetables Last Documented On 2 3:20PM ; [facility] Patient education about a pr oper diet Last Documented On 2 3:20PM ; [facility] Discussed concerns about exe rcise : promote physical activity ~ ~Will restart trazodone and prazosin ~ ~Patient is planning to have brother stay with her for a few days for emotional support ~ ~Follow up with PCP at next scheduled visit ~ ~Call psychiatrist office to schedule appt ~ ~Call counselor Last Documented On 2 9:35AM ; [facility] Provided supportive listenin g and empathic feedback; encouraged, explored, and supported the pt as she processed current symptoms, Issues, and concerns. ~Discussed past tx and explored current needs/options. Acknowledged and validated pt's thoughts and emotions. ~Explored coping mechanisms and support network; utilized opportunity for safety planning; promoted seeking positive support and seeking help, as needed Last Documented On 2 3:28PM ; [facility] provided active listenin g, support and helped pt process though current symptoms and stressor(s). Discussed and explored past effectiveness of medication; identified objectives and future goals; promoted use of healthy coping mechanisms, and self-care practices Last Documented On 2 3:19PM ; [facility] Reviewed side effects and Ri sks/Benefits analysis Last Documented On 2 3:19PM ; [facility] Discussed nutritional needs teach healthy choices including fruits and vegetables Last Documented On 2 3:15PM ; [facility] Patient education about a pr oper diet Last Documented On 2 3:15PM ; [facility] Discussed concerns about exe rcise : promote physical activity Last Documented On 2 3:15PM ; [facility] introduced pt to [facility] in tegrated model of care ~[facility] offered active listening and supportive feedback; normalized emotions and feelings, also provided pt time to process any current stressors ~[facility] discussed potential benefits of counseling and supported re-engaging, as needed. ~[facility] encouraged pt to continue to make time to implement self-care regimen and use coping methods, as needed Last Documented On 2 4:07PM ; [facility] Discussed nutritional needs teach healthy choices including fruits and vegetables Last Documented On 2 3:15PM ; [facility] Patient education about a pr oper diet Last Documented On 2 3:15PM ; [facility] Inquiry and counseling about medication administration and compliance Last Documented On 2 7:37PM ; [facility] Discussed concerns about exe rcise : promote physical activity Last Documented On 2 3:15PM ; [facility] Patient goals discussed Last Documented On 2 7:37PM ; [facility] Ansewred pt's questions re B orderlline Personality D/O and Bipolar D/O raised by psychiatrist at [place]. ~Validated and normalized patient?s feelings while assisting to process recent events Last Documented On 1 1:33AM ; [facility] Discussed nutritional needs teach healthy choices including fruits and vegetables Last Documented On 1 2:04PM ; [facility] Patient education about a pr oper diet Last Documented On 1 2:04PM ; [facility] Discussed concerns about exe rcise : promote physical activity Last Documented On 1 2:04PM ; [facility] provided active listenin g, support [...] ER Last Documented On 1 10:17AM ; [facility] Patient education about a pr oper diet Last Documented On 1 5:17PM ; [facility] Patient education about meal planning Last Documented On 1 5:17PM ; [facility] Education about changing eat ing habits Last Documented On 1 5:17PM ; [facility] Patient education about high fiber diet Last Documented On 1 5:17PM ; [facility] Patient education about low fat diet Last Documented On 1 5:17PM ; [facility] Patient education about low cholesterol diet Last Documented On 1 5:17PM ; [facility] Patient education about low carbohydrate diet Last Documented On 1 5:17PM ; [facility] Patient education about high protein diet Last Documented On 1 5:17PM ; [facility] offered active and suppo rtive listening, normalized emotions and feelings, and processed current stressors. ~[facility] discussed resources for finding a counselor and provided list of local resources. ~[facility] discussed patients coping skills and supports and encouraged patient to continue to implement. ~[facility] reminded patient of crisis resources should they be needed Last Documented On 1 7:15PM ; [facility] Discussed nutritional needs teach healthy choices including fruits and vegetables Last Documented On 1 11:38AM ; [facility] Patient education about a pr oper diet Last Documented On 1 11:38AM ; [facility] Patient education about a pr oper diet Last Documented On 1 12:19PM ; [facility] Patient education about meal planning Last Documented On 1 12:19PM ; [facility] Education about changing eat ing habits Last Documented On 12:19PM ; [facility] Patient education about high fiber diet Last Documented On 1 12:19PM ; [facility] Patient education about low fat diet Last Documented On 1 12:19PM ; [facility] Patient education about low cholesterol diet Last Documented On 1 12:19PM ; [facility] Patient education about low carbohydrate diet Last Documented On 1 12:19PM ; [facility] Patient education about high protein diet Last Documented On 1 12:19PM ; [facility] Discussed concerns about exe rcise : promote physical activity Last Documented On 1 11:38AM ; [facility] provided active listenin g, support and helped patient process through current symptoms and stressors related to family conflict. ~[facility] discussed coping skills and supports with patient that can be implemented and reminded patient of ways to access additional resources. ~[facility] discussed crisis resources and plan. Patient has crisis resources still available should they be needed Last Documented On 1 7:04PM ; [facility] Discussed nutritional needs teach healthy choices including fruits and vegetables Last Documented On 1 3:57PM ; [facility] Patient education about a pr oper diet Last Documented On 1 3:57PM ; [facility] Discussed concerns about exe rcise : promote physical activity Last Documented On 1 3:57PM ; [facility] introduced patient to [facility] integrated model of care. [facility] and PCP [...] ~P discussed crisis resources should mood worsen, [facility] provided text hotline number for crisis. [facility] reviewed crisis plan with patient and patient is able to contact positive supports and family when feeling down Last Documented On 1 11:46AM ; [facility] Discussed nutritional needs teach healthy choices including fruits and vegetables Last Documented On 1 2:11PM ; [facility] Patient education about a pr oper diet Last Documented On 1 2:11PM ; [facility] Discussed concerns about exe rcise : promote physical activity Last Documented On 1 2:11PM ; [facility] Work Phone: Instructions Includes: Instructions for all patient encounters Education and Decision Aids were provided during visit for: ~*[facility] offered active and sup portive listening, normalized emotions and feelings, and processed ~current stressors. ~*Discussed engageing in counseling and looking into EMDR to address PTSD and increased nightmares Last Documented On 4 4:14PM ; [facility] Discussed nutritional needs teach healthy choices including fruits and vegetables Last Documented On 4 4:33PM ; [facility] Patient education about a pr oper diet Last Documented On 4 4:33PM ; [facility] Discussed concerns about exe rcise : promote physical activity Last Documented On 4 4:33PM ; [facility] offered active and suppo rtive listening and processed recent stressors. ~P discussed coping skills and supports to implement in managing increased anxiety such as tools learned previously in therapy. ~P discussed sleep hygiene strategies that can be implemented. ~[facility] encouraged patient to follow-up with specialists as scheduled Last Documented On 4 3:26PM ; [facility] Discussed nutritional needs teach healthy choices including fruits and vegetables Last Documented On 4 4:51PM ; [facility] Patient education about a pr oper diet Last Documented On 4 4:51PM ; [facility] Discussed concerns about exe rcise : promote physical activity Last Documented On 4 4:51PM ; [facility] Referred Patient to a Diabet es Self-Management Program Last Documented On 4 5:22PM ; [facility] offered active and suppo rtive listening and processed current stressors. ~P discussed coping skills and supports that can be implemented to manage increased anxiety and stressors. [facility] discussed potential of resuming counseling, even if for monthly visits to process ongoing stressors. ~[facility] encouraged patient to follow- up on referrals as discussed with PCP Last Documented On 4 10:08AM ; [facility] Discussed nutritional needs teach healthy choices including fruits and vegetables Last Documented On 4 4:46PM ; [facility] Patient education about a pr oper diet Last Documented On 4 4:46PM ; [facility] Discussed concerns about exe rcise : promote physical activity Last Documented On 4 4:46PM ; [facility] Not requesting contraception Last Documented On 4 4:46PM ; [facility] offered active and suppo rtive listening and processed current stressors related to getting medications. ~P discussed coping skills and supports to implement in daily routine. ~P discussed progress patient has felt they have made recently and encouraged continued follow-up with providers to address health Last Documented On 4 5:16PM ; [facility] Discussed nutritional needs teach healthy choices including fruits and vegetables Last Documented On 4 7:14PM ; [facility] Patient education about a pr oper diet Last Documented On 4 7:14PM ; [facility] Discussed concerns about exe rcise : promote physical activity Last Documented On 4 7:14PM ; [facility] Not requesting contraception Last Documented On 4 7:14PM ; [facility] Discussed nutritional needs teach healthy choices including fruits and vegetables Last Documented On 3 5:15PM ; [facility] Patient education about a pr oper diet Last Documented On 3 5:15PM ; [facility] Discussed concerns about exe rcise : promote physical activity Last Documented On 3 5:15PM ; [facility] Discussed nutritional needs teach healthy choices including fruits and vegetables Last Documented On 2 1:42PM ; [facility] Patient education about a pr oper diet Last Documented On 2 1:42PM ; [facility] Discussed concerns about exe rcise : promote physical activity Last Documented On 2 1:42PM ; [facility] active listening and supportive feedback; normalized emotions and feelings, also provided pt time to process any current stressors. ~Promoted and encouraged follow-through with scheduling psychiatric services Last Documented On 2 3:21PM ; [facility] provided supportive, empa thic listening and reflective feedback. ~Explored, encouraged, and supported the pt to discuss current sx/mood, assess risk for harm/need, coping mechanisms, support network and safety planning. ~Supported pt's plan to f/up with Dr. Carney, as planned at [place], [place]. ~Encouraged pt to use safety plan, if needed to ensure she remains safe Last Documented On 2 2:27PM ; [facility] Discussed nutritional needs teach healthy choices including fruits and vegetables Last Documented On 2 3:20PM ; [facility] Patient education about a pr oper diet Last Documented On 2 3:20PM ; [facility] Discussed concerns about exe rcise : promote physical activity ~ ~Will restart trazodone and prazosin ~ ~Patient is planning to have brother stay with her for a few days for emotional support ~ ~Follow up with PCP at next scheduled visit ~ ~Call psychiatrist office to schedule appt ~ ~Call counselor Last Documented On 2 9:35AM ; [facility] Provided supportive listenin g and empathic feedback; encouraged, explored, and supported the pt as she processed current symptoms, Issues, and concerns. ~Discussed past tx and explored current needs/options. Acknowledged and validated pt's thoughts and emotions. ~Explored coping mechanisms and support network; utilized opportunity for safety planning; promoted seeking positive support and seeking help, as needed Last Documented On 2 3:28PM ; [facility] provided active listenin g, support and helped pt process though current symptoms and stressor(s). Discussed and explored past effectiveness of medication; identified objectives and future goals; promoted use of healthy coping mechanisms, and self-care practices Last Documented On 2 3:19PM ; [facility] Reviewed side effects and Ri sks/Benefits analysis Last Documented On 2 3:19PM ; [facility] Discussed nutritional needs teach healthy choices including fruits and vegetables Last Documented On 2 3:15PM ; [facility] Patient education about a pr oper diet Last Documented On 2 3:15PM ; [facility] Discussed concerns about exe rcise : promote physical activity Last Documented On 2 3:15PM ; [facility] introduced pt to [facility] in tegrated model of care ~[facility] offered active listening and supportive feedback; normalized emotions and feelings, also provided pt time to process any current stressors ~[facility] discussed potential benefits of counseling and supported re-engaging, as needed. ~[facility] encouraged pt to continue to make time to implement self-care regimen and use coping methods, as needed Last Documented On 2 4:07PM ; [facility] Discussed nutritional needs teach healthy choices including fruits and vegetables Last Documented On 2 3:15PM ; [facility] Patient education about a pr oper diet Last Documented On 2 3:15PM ; [facility] Inquiry and counseling about medication administration and compliance Last Documented On 2 7:37PM ; [facility] Discussed concerns about exe rcise : promote physical activity Last Documented On 2 3:15PM ; [facility] Patient goals discussed Last Documented On 2 7:37PM ; [facility] Ansewred pt's questions re B orderlline Personality D/O and Bipolar D/O raised by psychiatrist at [place]. ~Validated and normalized patient?s feelings while assisting to process recent events Last Documented On 1 1:33AM ; [facility] Discussed nutritional needs teach healthy choices including fruits and vegetables Last Documented On 1 2:04PM ; [facility] Patient education about a pr oper diet Last Documented On 1 2:04PM ; [facility] Discussed concerns about exe rcise : promote physical activity Last Documented On 1 2:04PM ; [facility] provided active listenin g, support and helped [...] ER Last Documented On 1 10:17AM ; [facility] Patient education about a pr oper diet Last Documented On 1 5:17PM ; [facility] Patient education about meal planning Last Documented On 1 5:17PM ; [facility] Education about changing eat ing habits Last Documented On 1 5:17PM ; [facility] Patient education about high fiber diet Last Documented On 1 5:17PM ; [facility] Patient education about low fat diet Last Documented On 1 5:17PM ; [facility] Patient education about low cholesterol diet Last Documented On 1 5:17PM ; [facility] Patient education about low carbohydrate diet Last Documented On 1 5:17PM ; [facility] Patient education about high protein diet Last Documented On 1 5:17PM ; [facility] offered active and suppo rtive listening, normalized emotions and feelings, and processed current stressors. ~P discussed resources for finding a counselor and provided list of local resources. ~[facility] discussed patients coping skills and supports and encouraged patient to continue to implement. [facility] reminded patient of crisis resources should they be needed Last Documented On 1 7:15PM ; [facility] Discussed nutritional needs teach healthy choices including fruits and vegetables Last Documented On 1 11:38AM ; [facility] Patient education about a pr oper diet Last Documented On 1 11:38AM ; [facility] Patient education about a pr oper diet Last Documented On 1 12:19PM ; [facility] Patient education about meal planning Last Documented On 1 12:19PM ; [facility] Education about changing eat ing habits Last Documented On 1 12:19PM ; [facility] Patient education about high fiber diet Last Documented On 1 12:19PM ; [facility] Patient education about low fat diet Last Documented On 1 12:19PM ; [facility] Patient education about low cholesterol diet Last Documented On 1 12:19PM ; [facility] Patient education about low carbohydrate diet Last Documented On 1 12:19PM ; [facility] Patient education about high protein diet Last Documented On 1 12:19PM ; [facility] Discussed concerns about exe rcise : promote physical activity Last Documented On 1 11:38AM ; [facility] provided active listenin g, support and helped patient process through current symptoms and stressors related to family conflict. [facility] discussed coping skills and supports with patient that can be implemented and reminded patient of ways to access additional resources. [facility] discussed crisis resources and plan. Patient has crisis resources still available should they be needed Last Documented On 1 7:04PM ; [facility] Discussed nutritional needs teach healthy choices including fruits and vegetables Last Documented On 1 3:57PM ; [facility] Patient education about a pr oper diet Last Documented On 1 3:57PM ; [facility] Discussed concerns about exe rcise : promote physical activity Last Documented On 1 3:57PM ; [facility] integrated model of care. BHP and PCP [...] ~P discussed crisis resources should mood worsen, [facility] provided text hotline number for crisis. [facility] reviewed crisis plan with patient and patient is able to contact positive supports and family when feeling down Last Documented On 1 11:46AM ; [facility] Discussed nutritional needs teach healthy choices including fruits and vegetables Last Documented On 1 2:11PM ; [facility] Patient education about a pr oper diet Last Documented On 1 2:11PM ; [facility] Discussed concerns about exe rcise : promote physical activity Last Documented On 1 2:11PM ; [facility] Work Phone: Instructions Includes: Instructions for all patient encounters Education and Decision Aids were provided during visit for: ~*[facility] offered active and sup portive listening, normalized emotions and feelings, and processed ~current stressors. ~*Discussed engageing in counseling and looking into EMDR to address PTSD and increased nightmares Last Documented On 4 4:14PM ; [facility] Discussed nutritional needs teach healthy choices including fruits and vegetables Last Documented On 4 4:33PM ; [facility] Patient education about a pr oper diet Last Documented On 4 4:33PM ; [facility] Discussed concerns about exe rcise : promote physical activity Last Documented On 4 4:33PM ; [facility] offered active and suppo rtive listening and processed recent stressors. ~P discussed coping skills and supports to implement in managing increased anxiety such as tools learned previously in therapy. ~P discussed sleep hygiene strategies that can be implemented. ~P encouraged patient to follow-up with specialists as scheduled Last Documented On 4 3:26PM ; [facility] Discussed nutritional needs teach healthy choices including fruits and vegetables Last Documented On 4 4:51PM ; [facility] Patient education about a pr oper diet Last Documented On 4 4:51PM ; [facility] Discussed concerns about exe rcise : promote physical activity Last Documented On 4 4:51PM ; [facility] Referred Patient to a Diabet es Self-Management Program Last Documented On 4 5:22PM ; [facility] offered active and suppo rtive listening and processed current stressors. ~[facility] discussed coping skills and supports that can be implemented to manage increased anxiety and stressors. P discussed potential of resuming counseling, even if for monthly visits to process ongoing stressors. ~[facility] encouraged patient to follow- up on referrals as discussed with PCP Last Documented On 4 10:08AM ; [facility] Discussed nutritional needs teach healthy choices including fruits and vegetables Last Documented On 4 4:46PM ; [facility] Patient education about a pr oper diet Last Documented On 4 4:46PM ; [facility] Discussed concerns about exe rcise : promote physical activity Last Documented On 4 4:46PM ; [facility] Not requesting contraception Last Documented On 4 4:46PM ; [facility] offered active and suppo rtive listening and processed current stressors related to getting medications. ~[facility] discussed coping skills and supports to implement in daily routine. ~[facility] discussed progress patient has felt they have made recently and encouraged continued follow-up with providers to address health Last Documented On 4 5:16PM ; [facility] Discussed nutritional needs teach healthy choices including fruits and vegetables Last Documented On 4 7:14PM ; [facility] Patient education about a pr oper diet Last Documented On 4 7:14PM ; [facility] Discussed concerns about exe rcise : promote physical activity Last Documented On 4 7:14PM ; [facility] Not requesting contraception Last Documented On 4 7:14PM ; [facility] Discussed nutritional needs teach healthy choices including fruits and vegetables Last Documented On 3 5:15PM ; [facility] Patient education about a pr oper diet Last Documented On 3 5:15PM ; [facility] Discussed concerns about exe rcise : promote physical activity Last Documented On 3 5:15PM ; [facility] Discussed nutritional needs teach healthy choices including fruits and vegetables Last Documented On 2 1:42PM ; [facility] Patient education about a pr oper diet Last Documented On 2 1:42PM ; [facility] Discussed concerns about exe rcise : promote physical activity Last Documented On 2 1:42PM ; [facility] active listening and supportive feedback; normalized emotions and feelings, also provided pt time to process any current stressors. ~Promoted and encouraged follow-through with scheduling psychiatric services Last Documented On 2 3:21PM ; [facility] provided supportive, empa thic listening and reflective feedback. ~Explored, encouraged, and supported the pt to discuss current sx/mood, assess risk for harm/need, coping mechanisms, support network and safety planning. ~Supported pt's plan to f/up with Dr. Carney, as planned at [place], [place]. ~Encouraged pt to use safety plan, if needed to ensure she remains safe Last Documented On 2 2:27PM ; [facility] Discussed nutritional needs teach healthy choices including fruits and vegetables Last Documented On 2 3:20PM ; [facility] Patient education about a pr oper diet Last Documented On 2 3:20PM ; [facility] Discussed concerns about exe rcise : promote physical activity ~ ~Will restart trazodone and prazosin ~ ~Patient is planning to have brother stay with her for a few days for emotional support ~ ~Follow up with PCP at next scheduled visit ~ ~Call psychiatrist office to schedule appt ~ ~Call counselor Last Documented On 2 9:35AM ; [facility] Provided supportive listenin g and empathic feedback; encouraged, explored, and supported the pt as she processed current symptoms, Issues, and concerns. ~Discussed past tx and explored current needs/options. Acknowledged and validated pt's thoughts and emotions. ~Explored coping mechanisms and support network; utilized opportunity for safety planning; promoted seeking positive support and seeking help, as needed Last Documented On 2 3:28PM ; [facility] provided active listenin g, support and helped pt process though current symptoms and stressor(s). Discussed and explored past effectiveness of medication; identified objectives and future goals; promoted use of healthy coping mechanisms, and self-care practices Last Documented On 2 3:19PM ; [facility] Reviewed side effects and Ri sks/Benefits analysis Last Documented On 2 3:19PM ; [facility] Discussed nutritional needs teach healthy choices including fruits and vegetables Last Documented On 2 3:15PM ; [facility] Patient education about a pr oper diet Last Documented On 2 3:15PM ; [facility] Discussed concerns about exe rcise : promote physical activity Last Documented On 2 3:15PM ; [facility] introduced pt to [facility] in tegrated model of care ~[facility] offered active listening and supportive feedback; normalized emotions and feelings, also provided pt time to process any current stressors ~[facility] discussed potential benefits of counseling and supported re-engaging, as needed. ~[facility] encouraged pt to continue to make time to implement self-care regimen and use coping methods, as needed Last Documented On 2 4:07PM ; [facility] Discussed nutritional needs teach healthy choices including fruits and vegetables Last Documented On 2 3:15PM ; [facility] Patient education about a pr oper diet Last Documented On 2 3:15PM ; [facility] Inquiry and counseling about medication administration and compliance Last Documented On 2 7:37PM ; [facility] Discussed concerns about exe rcise : promote physical activity Last Documented On 2 3:15PM ; [facility] Patient goals discussed Last Documented On 2 7:37PM ; [facility] Ansewred pt's questions re B orderlline Personality D/O and Bipolar D/O raised by psychiatrist at [place]. ~Validated and normalized patient?s feelings while assisting to process recent events Last Documented On 1 1:33AM ; [facility] Discussed nutritional needs teach healthy choices including fruits and vegetables Last Documented On 1 2:04PM ; [facility] Patient education about a pr oper diet Last Documented On 1 2:04PM ; [facility] Discussed concerns about exe rcise : promote physical activity Last Documented On 1 2:04PM ; [facility] provided active listenin g, support and helped patient process through current symptoms and stressors with ongoing mental health concerns and medication changes. ~P discussed coping skills and supports that patient is implementing. discussed implementing coping skills as discussed with counseling and attending weekly appointments as scheduled with counselor. Patient was encouraged to continue writing down concerns with medications and discuss with providers. ~[facility] reminded patient of crisis resources should they be needed. Patient reports having crisis resources and could return to ER Last Documented On 1 10:17AM ; [facility] Patient education about a pr oper diet Last Documented On 1 5:17PM ; [facility] Patient education about meal planning Last Documented On 1 5:17PM ; [facility] Education about changing eat ing habits Last Documented On 1 5:17PM ; [facility] Patient education about high fiber diet Last Documented On 1 5:17PM ; [facility] Patient education about low fat diet Last Documented On 1 5:17PM ; [facility] Patient education about low cholesterol diet Last Documented On 1 5:17PM ; [facility] Patient education about low carbohydrate diet Last Documented On 1 5:17PM ; [facility] Patient education about high protein diet Last Documented On 1 5:17PM ; [facility] offered active and suppo rtive listening, normalized emotions and feelings, and processed current stressors. ~[facility] discussed resources for finding a counselor and provided list of local resources. ~[facility] discussed patients coping skills and supports and encouraged patient to continue to implement. [facility] reminded patient of crisis resources should they be needed Last Documented On 1 7:15PM ; [facility] Discussed nutritional needs teach healthy choices including fruits and vegetables Last Documented On 1 11:38AM ; [facility] Patient education about a pr oper diet Last Documented On 1 11:38AM ; [facility] Patient education about a pr oper diet Last Documented On 1 12:19PM ; [facility] Patient education about meal planning Last Documented On 1 12:19PM ; [facility] Education about changing eat ing habits Last Documented On 1 12:19PM ; [facility] Patient education about high fiber diet Last Documented On 1 12:19PM ; [facility] Patient education about low fat diet Last Documented On 1 12:19PM ; [facility] Patient education about low cholesterol diet Last Documented On 1 12:19PM ; [facility] Patient education about low carbohydrate diet Last Documented On 1 12:19PM ; [facility] Patient education about high protein diet Last Documented On 1 12:19PM ; [facility] Discussed concerns about exe rcise : promote physical activity Last Documented On 1 11:38AM ; [facility] provided active listenin g, support and helped patient process through current symptoms and stressors related to family conflict. [facility] discussed coping skills and supports with patient that can be implemented and reminded patient of ways to access additional resources. [facility] discussed crisis resources and plan. Patient has crisis resources still available should they be needed Last Documented On 1 7:04PM ; [facility] Discussed nutritional needs teach healthy choices including fruits and vegetables Last Documented On 1 3:57PM ; [facility] Patient education about a pr oper diet Last Documented On 1 3:57PM ; [facility] Discussed concerns about exe rcise : promote physical activity Last Documented On 1 3:57PM ; [facility] introduced patient to [facility] integrated model of care. BHP and PCP [...] ~P discussed crisis resources should mood worsen, [facility] provided text hotline number for crisis. P reviewed crisis plan with patient and patient is able to contact positive supports and family when feeling down Last Documented On 1 11:46AM ; [facility] Discussed nutritional needs teach healthy choices including fruits and vegetables Last Documented On 1 2:11PM ; [facility] Patient education about a pr oper diet Last Documented On 1 2:11PM ; [facility] Discussed concerns about exe rcise : promote physical activity Last Documented On 1 2:11PM ; [facility] Work Phone: Instructions Includes: Instructions for all patient encounters Education and Decision Aids were provided during visit for: ~*[facility] offered active and sup portive listening, normalized emotions and feelings, and processed ~current stressors. ~*Discussed engageing in counseling and looking into EMDR to address PTSD and increased nightmares Last Documented On 4 4:14PM ; [facility] Discussed nutritional needs teach healthy choices including fruits and vegetables Last Documented On 4 4:33PM ; [facility] Patient education about a pr oper diet Last Documented On 4 4:33PM ; [facility] Discussed concerns about exe rcise : promote physical activity Last Documented On 4 4:33PM ; [facility] offered active and suppo rtive listening and processed recent stressors. ~P discussed coping skills and supports to implement in managing increased anxiety such as tools learned previously in therapy. ~P discussed sleep hygiene strategies that can be implemented. ~[facility] encouraged patient to follow-up with specialists as scheduled Last Documented On 4 3:26PM ; [facility] Discussed nutritional needs teach healthy choices including fruits and vegetables Last Documented On 4 4:51PM ; [facility] Patient education about a pr oper diet Last Documented On 4 4:51PM ; [facility] Discussed concerns about exe rcise : promote physical activity Last Documented On 4 4:51PM ; [facility] Referred Patient to a Diabet es Self-Management Program Last Documented On 4 5:22PM ; [facility] offered active and suppo rtive listening and processed current stressors. ~P discussed coping skills and supports that can be implemented to manage increased anxiety and stressors. P discussed potential of resuming counseling, even if for monthly visits to process ongoing stressors. ~[facility] encouraged patient to follow- up on referrals as discussed with PCP Last Documented On 4 10:08AM ; [facility] Discussed nutritional needs teach healthy choices including fruits and vegetables Last Documented On 4 4:46PM ; [facility] Patient education about a pr oper diet Last Documented On 4 4:46PM ; [facility] Discussed concerns about exe rcise : promote physical activity Last Documented On 4 4:46PM ; [facility] Not requesting contraception Last Documented On 4 4:46PM ; [facility] offered active and suppo rtive listening and processed current stressors related to getting medications. ~[facility] discussed coping skills and supports to implement in daily routine. ~[facility] discussed progress patient has felt they have made recently and encouraged continued follow-up with providers to address health Last Documented On 4 5:16PM ; [facility] Discussed nutritional needs teach healthy choices including fruits and vegetables Last Documented On 4 7:14PM ; [facility] Patient education about a pr oper diet Last Documented On 4 7:14PM ; [facility] Discussed concerns about exe rcise : promote physical activity Last Documented On 4 7:14PM ; [facility] Not requesting contraception Last Documented On 4 7:14PM ; [facility] Discussed nutritional needs teach healthy choices including fruits and vegetables Last Documented On 3 5:15PM ; [facility] Patient education about a pr oper diet Last Documented On 3 5:15PM ; [facility] Discussed concerns about exe rcise : promote physical activity Last Documented On 3 5:15PM ; [facility] Discussed nutritional needs teach healthy choices including fruits and vegetables Last Documented On 2 1:42PM ; [facility] Patient education about a pr oper diet Last Documented On 2 1:42PM ; [facility] Discussed concerns about exe rcise : promote physical activity Last Documented On 2 1:42PM ; [facility] active listening and supportive feedback; normalized emotions and feelings, also provided pt time to process any current stressors. ~Promoted and encouraged follow-through with scheduling psychiatric services Last Documented On 2 3:21PM ; [facility] provided supportive, empa thic listening and reflective feedback. ~Explored, encouraged, and supported the pt to discuss current sx/mood, assess risk for harm/need, coping mechanisms, support network and safety planning. ~Supported pt's plan to f/up with Dr. Carney, as planned at [place], [place]. ~Encouraged pt to use safety plan, if needed to ensure she remains safe Last Documented On 2 2:27PM ; [facility] Discussed nutritional needs teach healthy choices including fruits and vegetables Last Documented On 2 3:20PM ; [facility] Patient education about a pr oper diet Last Documented On 2 3:20PM ; [facility] Discussed concerns about exe rcise : promote physical activity ~ ~Will restart trazodone and prazosin ~ ~Patient is planning to have brother stay with her for a few days for emotional support ~ ~Follow up with PCP at next scheduled visit ~ ~Call psychiatrist office to schedule appt ~ ~Call counselor Last Documented On 2 9:35AM ; [facility] Provided supportive listenin g and empathic feedback; encouraged, explored, and supported the pt as she processed current symptoms, Issues, and concerns. ~Discussed past tx and explored current needs/options. Acknowledged and validated pt's thoughts and emotions. ~Explored coping mechanisms and support network; utilized opportunity for safety planning; promoted seeking positive support and seeking help, as needed Last Documented On 2 3:28PM ; [facility] provided active listenin g, support and helped pt process though current symptoms and stressor(s). Discussed and explored past effectiveness of medication; identified objectives and future goals; promoted use of healthy coping mechanisms, and self-care practices Last Documented On 2 3:19PM ; [facility] Reviewed side effects and Ri sks/Benefits analysis Last Documented On 2 3:19PM ; [facility] Discussed nutritional needs teach healthy choices including fruits and vegetables Last Documented On 2 3:15PM ; [facility] Patient education about a pr oper diet Last Documented On 2 3:15PM ; [facility] Discussed concerns about exe rcise : promote physical activity Last Documented On 2 3:15PM ; [facility] introduced pt to [facility] in tegrated model of care ~[facility] offered active listening and supportive feedback; normalized emotions and feelings, also provided pt time to process any current stressors ~[facility] discussed potential benefits of counseling and supported re-engaging, as needed. ~[facility] encouraged pt to continue to make time to implement self-care regimen and use coping methods, as needed Last Documented On 2 4:07PM ; [facility] Discussed nutritional needs teach healthy choices including fruits and vegetables Last Documented On 2 3:15PM ; [facility] Patient education about a pr oper diet Last Documented On 2 3:15PM ; [facility] Inquiry and counseling about medication administration and compliance Last Documented On 2 7:37PM ; [facility] Discussed concerns about exe rcise : promote physical activity Last Documented On 2 3:15PM ; [facility] Patient goals discussed Last Documented On 2 7:37PM ; [facility] Ansewred pt's questions re B orderlline Personality D/O and Bipolar D/O raised by psychiatrist at [place]. ~Validated and normalized patient?s feelings while assisting to process recent events Last Documented On 1 1:33AM ; [facility] Discussed nutritional needs teach healthy choices including fruits and vegetables Last Documented On 1 2:04PM ; [facility] Patient education about a pr oper diet Last Documented On 1 2:04PM ; [facility] Discussed concerns about exe rcise : promote physical activity Last Documented On 1 2:04PM ; [facility] provided active listenin g, support and helped patient process through current symptoms and stressors with ongoing mental health concerns and medication changes. ~[facility] discussed coping skills and supports that [...] ER Last Documented On 1 10:17AM ; [facility] Patient education about a pr oper diet Last Documented On 1 5:17PM ; [facility] Patient education about meal planning Last Documented On 1 5:17PM ; [facility] Education about changing eat ing habits Last Documented On 1 5:17PM ; [facility] Patient education about high fiber diet Last Documented On 1 5:17PM ; [facility] Patient education about low fat diet Last Documented On 1 5:17PM ; [facility] Patient education about low cholesterol diet Last Documented On 1 5:17PM ; [facility] Patient education about low carbohydrate diet Last Documented On 1 5:17PM ; [facility] Patient education about high protein diet Last Documented On 1 5:17PM ; [facility] offered active and suppo rtive listening, normalized emotions and feelings, and processed current stressors. ~[facility] discussed resources for finding a counselor and provided list of local resources. ~P discussed patients coping skills and supports and encouraged patient to continue to implement. ~[facility] reminded patient of crisis resources should they be needed Last Documented On 1 7:15PM ; [facility] Discussed nutritional needs teach healthy choices including fruits and vegetables Last Documented On 1 11:38AM ; [facility] Patient education about a pr oper diet Last Documented On 1 11:38AM ; [facility] Patient education about a pr oper diet Last Documented On 1 12:19PM ; [facility] Patient education about meal planning Last Documented On 1 12:19PM ; [facility] Education about changing eat ing habits Last Documented On 1 12:19PM ; [facility] Patient education about high fiber diet Last Documented On 1 12:19PM ; [facility] Patient education about low fat diet Last Documented On 1 12:19PM ; [facility] Patient education about low cholesterol diet Last Documented On 1 12:19PM ; [facility] Patient education about low carbohydrate diet Last Documented On 1 12:19PM ; [facility] Patient education about high protein diet Last Documented On 1 12:19PM ; [facility] Discussed concerns about exe rcise : promote physical activity Last Documented On 1 11:38AM ; [facility] provided active listenin g, support and helped patient process through current symptoms and stressors related to family conflict. ~[facility] discussed coping skills and supports with patient that can be implemented and reminded patient of ways to access additional resources. ~[facility] discussed crisis resources and plan. Patient has crisis resources still available should they be needed Last Documented On 1 7:04PM ; [facility] Discussed nutritional needs teach healthy choices including fruits and vegetables Last Documented On 1 3:57PM ; [facility] Patient education about a pr oper diet Last Documented On 1 3:57PM ; [facility] Discussed concerns about exe rcise : promote physical activity Last Documented On 1 3:57PM ; [facility] integrated model of care. [facility] and PCP reassured patient of not sharing information with anyone unless she has signed a release for us to do so. ~[facility] provided active listening, support and helped patient process through current symptoms and stressors. ~[facility] discussed establishing counseling and psychiatry. [facility] discussed EMDR therapy and ways to find provider who does this type of therapy. ~[facility] discussed crisis resources should mood worsen, [facility] provided text hotline number for crisis. [facility] reviewed crisis plan with patient and patient is able to contact positive supports and family when feeling down Last Documented On 1 11:46AM ; [facility] Discussed nutritional needs teach healthy choices including fruits and vegetables Last Documented On 1 2:11PM ; [facility] Patient education about a pr oper diet Last Documented On 1 2:11PM ; [facility] Discussed concerns about exe rcise : promote physical activity Last Documented On 1 2:11PM ; [facility] Work Phone: Instructions Includes: Instructions for all patient encounters Education and Decision Aids were provided during visit for: ~*[facility] offered active and sup portive listening, normalized emotions and feelings, and processed ~current stressors. ~*Discussed engageing in counseling and looking into EMDR to address PTSD and increased nightmares Last Documented On 4 4:14PM ; [facility] Discussed nutritional needs teach healthy choices including fruits and vegetables Last Documented On 4 4:33PM ; [facility] Patient education about a pr oper diet Last Documented On 4 4:33PM ; [facility] Discussed concerns about exe rcise : promote physical activity Last Documented On 4 4:33PM ; [facility] offered active and suppo rtive listening and processed recent stressors. ~[facility] discussed coping skills and supports to implement in managing increased anxiety such as tools learned previously in therapy. ~[facility] discussed sleep hygiene strategies that can be implemented. ~[facility] encouraged patient to follow-up with specialists as scheduled Last Documented On 4 3:26PM ; [facility] Discussed nutritional needs teach healthy choices including fruits and vegetables Last Documented On 4 4:51PM ; [facility] Patient education about a pr oper diet Last Documented On 4 4:51PM ; [facility] Discussed concerns about exe rcise : promote physical activity Last Documented On 4 4:51PM ; [facility] Referred Patient to a Diabet es Self-Management Program Last Documented On 4 5:22PM ; [facility] offered active and suppo rtive listening and processed current stressors. ~P discussed coping skills and supports that can be implemented to manage increased anxiety and stressors. P discussed potential of resuming counseling, even if for monthly visits to process ongoing stressors. ~[facility] encouraged patient to follow- up on referrals as discussed with PCP Last Documented On 4 10:08AM ; [facility] Discussed nutritional needs teach healthy choices including fruits and vegetables Last Documented On 4 4:46PM ; [facility] Patient education about a pr oper diet Last Documented On 4 4:46PM ; [facility] Discussed concerns about exe rcise : promote physical activity Last Documented On 4 4:46PM ; [facility] Not requesting contraception Last Documented On 4 4:46PM ; [facility] offered active and suppo rtive listening and processed current stressors related to getting medications. ~[facility] discussed coping skills and supports to implement in daily routine. ~[facility] discussed progress patient has felt they have made recently and encouraged continued follow-up with providers to address health Last Documented On 4 5:16PM ; [facility] Discussed nutritional needs teach healthy choices including fruits and vegetables Last Documented On 4 7:14PM ; [facility] Patient education about a pr oper diet Last Documented On 4 7:14PM ; [facility] Discussed concerns about exe rcise : promote physical activity Last Documented On 4 7:14PM ; [facility] Not requesting contraception Last Documented On 4 7:14PM ; [facility] Discussed nutritional needs teach healthy choices including fruits and vegetables Last Documented On 3 5:15PM ; [facility] Patient education about a pr oper diet Last Documented On 3 5:15PM ; [facility] Discussed concerns about exe rcise : promote physical activity Last Documented On 3 5:15PM ; [facility] Discussed nutritional needs teach healthy choices including fruits and vegetables Last Documented On 2 1:42PM ; [facility] Patient education about a pr oper diet Last Documented On 2 1:42PM ; [facility] Discussed concerns about exe rcise : promote physical activity Last Documented On 2 1:42PM ; [facility] offered active listening and supportive feedback; normalized emotions and feelings, also provided pt time to process any current stressors. ~Promoted and encouraged follow-through with scheduling psychiatric services Last Documented On 2 3:21PM ; [facility] provided supportive, empa thic listening and reflective feedback. ~Explored, encouraged, and supported the pt to discuss current sx/mood, assess risk for harm/need, coping mechanisms, support network and safety planning. ~Supported pt's plan to f/up with Dr. Carney, as planned at [place], [place]. ~Encouraged pt to use safety plan, if needed to ensure she remains safe Last Documented On 2 2:27PM ; [facility] Discussed nutritional needs teach healthy choices including fruits and vegetables Last Documented On 2 3:20PM ; [facility] Patient education about a pr oper diet Last Documented On 2 3:20PM ; [facility] Discussed concerns about exe rcise : promote physical activity ~ ~Will restart trazodone and prazosin ~ ~Patient is planning to have brother stay with her for a few days for emotional support ~ ~Follow up with PCP at next scheduled visit ~ ~Call psychiatrist office to schedule appt ~ ~Call counselor Last Documented On 2 9:35AM ; [facility] Provided supportive listenin g and empathic feedback; encouraged, explored, and supported the pt as she processed current symptoms, Issues, and concerns. ~Discussed past tx and explored current needs/options. Acknowledged and validated pt's thoughts and emotions. ~Explored coping mechanisms and support network; utilized opportunity for safety planning; promoted seeking positive support and seeking help, as needed Last Documented On 2 3:28PM ; [facility] provided active listenin g, support and helped pt process though current symptoms and stressor(s). Discussed and explored past effectiveness of medication; identified objectives and future goals; promoted use of healthy coping mechanisms, and self-care practices Last Documented On 2 3:19PM ; [facility] Reviewed side effects and Ri sks/Benefits analysis Last Documented On 2 3:19PM ; [facility] Discussed nutritional needs teach healthy choices including fruits and vegetables Last Documented On 2 3:15PM ; [facility] Patient education about a pr oper diet Last Documented On 2 3:15PM ; [facility] Discussed concerns about exe rcise : promote physical activity Last Documented On 2 3:15PM ; [facility] introduced pt to [facility] in tegrated model of care ~[facility] offered active listening and supportive feedback; normalized emotions and feelings, also provided pt time to process any current stressors ~[facility] discussed potential benefits of counseling and supported re-engaging, as needed. ~[facility] encouraged pt to continue to make time to implement self-care regimen and use coping methods, as needed Last Documented On 2 4:07PM ; [facility] Discussed nutritional needs teach healthy choices including fruits and vegetables Last Documented On 2 3:15PM ; [facility] Patient education about a pr oper diet Last Documented On 2 3:15PM ; [facility] Inquiry and counseling about medication administration and compliance Last Documented On 2 7:37PM ; [facility] Discussed concerns about exe rcise : promote physical activity Last Documented On 2 3:15PM ; [facility] Patient goals discussed Last Documented On 2 7:37PM ; [facility] Ansewred pt's questions re B orderlline Personality D/O and Bipolar D/O raised by psychiatrist at [place]. ~Validated and normalized patient?s feelings while assisting to process recent events Last Documented On 1 1:33AM ; [facility] Discussed nutritional needs teach healthy choices including fruits and vegetables Last Documented On 1 2:04PM ; [facility] Patient education about a pr oper diet Last Documented On 1 2:04PM ; [facility] Discussed concerns about exe rcise : promote physical activity Last Documented On 1 2:04PM ; [facility] provided active listenin g, support and helped patient process through current symptoms and stressors with ongoing mental health concerns and medication changes. ~[facility] discussed coping skills and supports that [...] ER Last Documented On 1 10:17AM ; [facility] Patient education about a pr oper diet Last Documented On 1 5:17PM ; [facility] Patient education about meal planning Last Documented On 1 5:17PM ; [facility] Education about changing eat ing habits Last Documented On 1 5:17PM ; [facility] Patient education about high fiber diet Last Documented On 1 5:17PM ; [facility] Patient education about low fat diet Last Documented On 1 5:17PM ; [facility] Patient education about low cholesterol diet Last Documented On 1 5:17PM ; [facility] Patient education about low carbohydrate diet Last Documented On 1 5:17PM ; [facility] Patient education about high protein diet Last Documented On 1 5:17PM ; [facility] offered active and suppo rtive listening, normalized emotions and feelings, and processed current stressors. ~[facility] discussed resources for finding a counselor and provided list of local resources. ~P discussed patients coping skills and supports and encouraged patient to continue to implement. ~[facility] reminded patient of crisis resources should they be needed Last Documented On 1 7:15PM ; [facility] Discussed nutritional needs teach healthy choices including fruits and vegetables Last Documented On 1 11:38AM ; [facility] Patient education about a pr oper diet Last Documented On 1 11:38AM ; [facility] Patient education about a pr oper diet Last Documented On 1 12:19PM ; [facility] Patient education about meal planning Last Documented On 1 12:19PM ; [facility] Education about changing eat ing habits Last Documented On 1 12:19PM ; [facility] Patient education about high fiber diet Last Documented On 1 12:19PM ; [facility] Patient education about low fat diet Last Documented On 12:19PM ; [facility] Patient education about low cholesterol diet Last Documented On 1 12:19PM ; [facility] Patient education about low carbohydrate diet Last Documented On 1 12:19PM ; [facility] Patient education about high protein diet Last Documented On 1 12:19PM ; [facility] Discussed concerns about exe rcise : promote physical activity Last Documented On 1 11:38AM ; [facility] active [facility], support and helped patient process through current symptoms and stressors related to family conflict. ~P discussed coping skills and supports with patient that can be implemented and reminded patient of ways to access additional resources. ~P discussed crisis resources and plan. Patient has crisis resources still available should they be needed Last Documented On 1 7:04PM ; [facility] Discussed nutritional needs teach healthy choices including fruits and vegetables Last Documented On 1 3:57PM ; [facility] Patient education about a pr oper diet Last Documented On 1 3:57PM ; [facility] Discussed concerns about exe rcise : promote physical activity Last Documented On 1 3:57PM ; [facility] integrated model of care. [facility] and PCP reassured patient of not sharing information with anyone unless she has signed a release for us to do so. ~P provided active listening, support and helped patient process through current symptoms and stressors. ~[facility] discussed establishing counseling and psychiatry. P discussed EMDR therapy and ways to find provider who does this type of therapy. ~[facility] discussed crisis resources should mood worsen, [facility] provided text hotline number for crisis. [facility] reviewed crisis plan with patient and patient is able to contact positive supports and family when feeling down Last Documented On 1 11:46AM ; [facility] Discussed nutritional needs teach healthy choices including fruits and vegetables Last Documented On 1 2:11PM ; [facility] Patient education about a pr oper diet Last Documented On 1 2:11PM ; [facility] Discussed concerns about exe rcise : promote physical activity Last Documented On 1 2:11PM ; [facility] Work Phone: Patient problem outcome Narrative Includes: Evaluations & Outcomes for active Goals No Outcomes [facility]ed[facility] Work Phone: Progress note* Progress note Date Encounter Last Documented by 07/29/2024 Chart Update Last documented on 07/29/2024; 12:07 PM, Denny Lomeli CNP; [facility] Active Problems & Conditions - F90.9 [...] symptoms persist, 1 days, 0 refills - Coco Controller Ultra In Vitro Strip USE ONE TEST [...] EndCited Care Team - Denny Lomeli [facility]NP [facility] ([facility]ative)No Reason for Referral Recorded[facility] Work Phone: Review of systems Narrative - Reported Review of Systems not supported for this document type No Review of Systems [facility]ed[facility] Work Phone: Summary Purpose Family History No Family History Records Found Description Last Updated Maternal history of epilepsy [...] 03/17/2021 Last Documented On 1 4:06PM ; [facility] Fraternal history of psychiatric disorde rs 03/17/2021 Maternal history of hypertension 021 Maternal history of oncologic disorder 0 03/17/2021 Maternal history of psychiatric disorder s 03/17/2021 Paternal history of hypertension 021 Paternal history of oncologic disorder 0 03/17/2021 Description Last Updated Maternal history of epilepsy and recurre nt seizures 03/17/2021 Last Documented On 1 4:06PM ; [facility] Fraternal history of psychiatric disorde rs 03/17/2021 Maternal history of hypertension 021 Maternal history of oncologic disorder 0 03/17/2021 Maternal history of psychiatric disorder s 03/17/2021 Paternal history of hypertension 021 Paternal history of oncologic disorder 0 03/17/2021 Description Last Updated Maternal history of epilepsy and recurre nt seizures 03/17/2021 Last Documented On 1 4:06PM ; [facility] Fraternal history of psychiatric disorde rs 03/17/2021 Maternal history of hypertension 021 Maternal history of oncologic disorder 0 03/17/2021 Maternal history of psychiatric disorder s 03/17/2021 Paternal history of hypertension 021 Paternal history of oncologic disorder 0 03/17/2021 Description Last Updated Maternal history of epilepsy and recurre nt seizures 03/17/2021 Last Documented On 1 4:06PM ; [facility] Fraternal history of psychiatric disorde rs 03/17/2021 Maternal history of hypertension 021 Maternal history of oncologic disorder 0 03/17/2021 Maternal history of psychiatric disorder s 03/17/2021 Paternal history of hypertension 021 Paternal history of oncologic disorder 0 03/17/2021 Description Last Updated Maternal history of epilepsy and recurre nt seizures 03/17/2021 Last Documented On 1 4:06PM ; [facility] Fraternal history of psychiatric disorde rs 03/17/2021 Maternal history of hypertension 021 Maternal history of oncologic disorder 0 03/17/2021 Maternal history of psychiatric disorder s 03/17/2021 Paternal history of hypertension 021 Paternal history of oncologic disorder 0 03/17/2021 Description Last Updated Maternal history of epilepsy and recurre nt seizures 03/17/2021 Last Documented On 1 4:06PM ; [facility] Fraternal history of psychiatric disorde rs 03/17/2021 Maternal history of hypertension 021 Maternal history of oncologic disorder 0 03/17/2021 Maternal history of psychiatric disorder s 03/17/2021 Paternal history of hypertension 021 Paternal history of oncologic disorder 0 03/17/2021 Description Last Updated Maternal history of epilepsy and recurre nt seizures 03/17/2021 Last Documented On 1 4:06PM ; [facility] Fraternal history of psychiatric disorde rs 03/17/2021 Maternal history of hypertension 021 Maternal history of oncologic disorder 0 03/17/2021 Maternal history of psychiatric disorder s 03/17/2021 Paternal history of hypertension 021 Paternal history of oncologic disorder 0 03/17/2021 Description Last Updated Maternal history of epilepsy and recurre nt seizures 03/17/2021 Last Documented On 1 4:06PM ; [facility] Fraternal history of psychiatric disorde rs 03/17/2021 Maternal history of hypertension 021 Maternal history of oncologic disorder 0 03/17/2021 Maternal history of psychiatric disorder s 03/17/2021 Paternal history of hypertension 021 Paternal history of oncologic disorder 0 03/17/2021 Description Last Updated Maternal history of epilepsy and recurre nt seizures 03/17/2021 Last Documented On 1 4:06PM ; [facility] Fraternal history of psychiatric disorde rs 03/17/2021 Maternal history of hypertension 021 Maternal history of oncologic disorder 0 03/17/2021 Maternal history of psychiatric disorder s 03/17/2021 Paternal history of hypertension 021 Paternal history of oncologic disorder 0 03/17/2021 Description Last Updated Maternal history of epilepsy and recurre nt seizures 03/17/2021 Last Documented On 1 4:06PM ; [facility] Fraternal history of psychiatric disorde rs 03/17/2021 Maternal history of hypertension 021 Maternal history of oncologic disorder 0 03/17/2021 Maternal history of psychiatric disorder s 03/17/2021 Paternal history of hypertension 021 Paternal history of oncologic disorder 0 03/17/2021 Description Last Updated Maternal history of epilepsy and recurre nt seizures 03/17/2021 Last Documented On 1 4:06PM ; [facility] Fraternal history of psychiatric disorde rs 03/17/2021 Maternal history of hypertension 021 Maternal history of oncologic disorder 0 03/17/2021 Maternal history of psychiatric disorder s 03/17/2021 Paternal history of hypertension 021 Paternal history of oncologic disorder 0 03/17/2021 Description Last Updated Maternal history of epilepsy and recurre nt seizures 03/17/2021 Last Documented On 4:06PM ; [facility] Fraternal history of psychiatric disorde rs 03/17/2021 Maternal history of hypertension 021 Maternal history of oncologic disorder 0 03/17/2021 Maternal history of psychiatric disorder s 03/17/2021 Paternal history of hypertension 021 Paternal history of oncologic disorder 0 03/17/2021 Advance Directives No Advanced Directives Records FoundDocuments on File Type Date Recorded Patient Bluing Oven Tender Expl anation ACP-Advance Directive ACP-Power of Helium Arc Welder Documents on File Type Date Recorded Patient Bluing Oven Tender Expl anation ACP-Advance Directive ACP-Power of 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 Arc 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 Physical Exam Physical Exam not supported for [...] Tachycardia Procedures Holter Monitor 48 Hour Denny Lomeli APRN - CUSTOMER SERVICE ASSISTANT [address] [place] [address] Additional Source Comments INFORMATION SOURCE (unrecogn ized section and content) DATE CREATED AUTHOR 04/18/2018 [facility] DATE CREATED AUTHOR AUTHOR'S ORGANIZ ATION 11/14/2020 [facility] DATE CREATED AUTHOR AUTHOR'S ORGANIZ ATION 04/15/2021 [facility] DATE CREATED AUTHOR AUTHOR'S ORGANIZ ATION 07/11/2021 [facility] DATE CREATED AUTHOR AUTHOR'S ORGANIZ ATION 07/27/2021 [facility] DATE CREATED AUTHOR AUTHOR'S ORGANIZ ATION 08/16/2022 [facility] DATE CREATED AUTHOR AUTHOR'S ORGANIZ ATION 03/01/2024 [facility] DATE CREATED AUTHOR AUTHOR'S ORGANIZ ATION 08/13/2024 [facility] d[facility] Specialists EPIC Reason for Visit (unrecogniz ed section and [...] Procedures Holter Monitor 48 Hour Denny Lomeli, OPINION POLLS SURVEY WORKER - CUSTOMER SERVICE ASSISTANT [address] [place] [address] Scheduled Active and Recently Administ ered Medications (unrecognized section and content) Medication Order 05/14/2021 05/15/2021 05/16/2021 ALPRAZolam (XANAX) tablet 0.5 mg (COMPLETED) 0.5 mg, Oral, ONCE, On 05/15/21 at 2100, For 1 dose 2109 (Given - Provider: Ankur Gregory RN) PRN Medication Order 07/04/2021 07/05/2021 07/06/2021 hydrOXYzine (VISTARIL) capsule 50 mg 50 mg, Oral, 3 TIMES DAILY PRN, Itching, Starting on Mon07/06/21 at 2147 2212 (Given - Provid er: Denny Orozco RN) Care Teams (unrecognized sec tion and content) Nuclear Medicine Technologist Relationship Specialty Start Date End Date Denny Lomeli, OPINION POLLS SURVEY WORKER - CUSTOMER SERVICE ASSISTANT [address] [place] [id number] PCP - General Family Medicine 04/09/21 FOR [...] BE BASED ON THE PRIMARY CLINICAL RECORDS. [email or web address] provides no warranty or guarantee of the accuracy or completeness of information in this document.
[2024-08-13 21:30] VITALS: BP 140/98; PULSE 98; TEMP 37.3; O2SAT 99; BMI 57.5
--- NOTE | 2024-08-13 21:45 | ECG_ITS ---
[facility] Test Date: 2024-08-13 Pat Name: NICKI SHAIKH Department: Room: - Gender: Female Shirring Tender: : 2000 Requested By: 1030 Order Number: [id number] Reading MD: EFRA KUHN Measurements Intervals Hensley Rate: 90 P: 42 ID: [id number] QRS: 67 QRSD: 90 T: 6 QT: 346 QTc: 394 Interpretive Statements 1100 Sinus rhythm 4068 Nonspecific Twave abnormality 9130 borderline ECG Compared to ECG 08/08/2024 14:43:32 Sinus tachycardia no longer present Electronically Signed On 08-14-2024 6:50:00 EDT by EFRA KUHN
--- NOTE | 2024-08-13 21:46 | ED.GENADUL1 ---
HPI HPI - General Adult General Chief complaint: Abdominal Pain Stated complaint: Post Surgical Issues Time Seen by Provider: 08/13/24 21:40 Source: patient Mode of arrival: walk-in Limitations: no limitations History of Present Illness HPI narrative: 24-year-old female presents to the emergency department for vaginal bleeding and the concern that she has gotten anemic again. Is scheduled for a D&C in 3 days and last week had to have a blood transfusion and states she received 3 units. She states the bleeding has become heavier again. She has been feeling short of breath and dizzy. Related Data Home Medications ?Medication ?Instructions ?Recorded ?Confirmed aripiprazole 5 mg tablet 5 mg PO QPM 08/08/24 08/13/24 atorvastatin 20 mg tablet 20 mg PO .QHS 08/08/24 08/13/24 blood sugar diagnostic (OneTouch 08/08/24 08/08/24 Ultra Test strips) blood-glucose meter (OneTouch 08/08/24 08/08/24 Ultra2 Meter) buspirone 10 mg tablet 10 mg PO BID 08/08/24 08/13/24 docusate sodium 100 mg capsule 100 mg PO .QHS PRN constipation 08/08/24 08/13/24 drospirenone (contraceptive) 4 mg 4 mg PO DAILY 08/08/24 08/13/24 (28) tablet (Slynd) ferrous sulfate 325 mg (65 mg 325 mg PO DAILY 08/08/24 08/13/24 iron) tablet (FeroSul) guanfacine 1 mg tablet,extended 1 mg PO .QHS 08/08/24 08/13/24 release 24 hr lamotrigine 100 mg tablet 100 mg PO DAILY 08/08/24 08/13/24 lisinopril 5 mg tablet 5 mg PO DAILY 08/08/24 08/13/24 prazosin 1 mg capsule 2 mg PO QPM 08/08/24 08/13/24 quetiapine 50 mg tablet 50 mg PO .QHS 08/08/24 08/13/24 sertraline 50 mg tablet 50 mg PO DAILY 08/08/24 08/13/24 sitagliptin phosphate 50 mg tablet 50 mg PO DAILY 08/08/24 08/13/24 (Januvia) Previous Rx's ?Medication ?Instructions ?Recorded megestrol 20 mg tablet 20 mg PO BID bid for 2 days, then 10/18/24 daily #30 tabs ketorolac 10 mg tablet 10 mg PO TID PRN pain #10 tabs 08/10/24 promethazine 25 mg tablet 25 mg PO Q6H PRN nausea and 08/10/24 vomiting #12 tabs Allergies Allergy/AdvReac Type Severity Reaction Status Date / Time amoxicillin (From Augmentin) Allergy Severe Anaphylaxis Verified 08/13/24 21:36 clavulanic acid (From Allergy Severe Anaphylaxis Verified 08/13/24 21:36 Augmentin) Penicillins Allergy Severe Anaphylaxis Verified 08/13/24 21:36 bee venom protein (honey bee) Allergy Anaphylaxis Verified 08/13/24 21:36 metformin Allergy Nausea Verified 08/13/24 21:36 nickel Allergy Hives Verified 08/13/24 21:36 Opioid HPI Opioid Management Most Recent Opioid Data: Last Pain Scale 6 08/10/24 17:44 08/10/24 Last Pain Assessment 08/09/24 10:00 Last MAR Pain Assessment 08/10/24 17:44 Last ORT Total Score 11 08/08/24 17:06 08/08/24 Last ORT Risk Category High Risk 08/08/24 17:06 08/08/24 Review of Systems ROS Narrative A ten point review of systems is negative except as noted above. [facility] Medical History (Updated 08/13/24 @ 22:54 by Oh Allen MD) History of blood transfusion (08/08/18) ?Z92.89 - Personal history of other medical treatment (ICD-10) Anemia ?D64.9 - Anemia, unspecified (ICD-10) Night terror ?F51.4 - Sleep terrors [night terrors] (ICD-10) Sleep paralysis ?G47.8 - Other sleep disorders (ICD-10) Insomnia ?G47.00 - Insomnia, unspecified (ICD-10) Panic attacks ?F41.0 - Panic disorder [episodic paroxysmal anxiety] (ICD-10) Snores ?R06.83 - Snoring (ICD-10) Syncope ?R55 - Syncope and collapse (ICD-10) Metabolic syndrome ?E88.810 - Metabolic syndrome (ICD-10) Dysfunctional uterine bleeding ?N93.8 - Other specified abnormal uterine and vaginal bleeding (ICD-10) Vaginal bleeding ?N93.9 - Abnormal uterine and vaginal bleeding, unspecified (ICD-10) Anemia requiring transfusions ?D64.9 - Anemia, unspecified (ICD-10) PTSD (post-traumatic stress disorder) ?F43.10 - Post-traumatic stress disorder, unspecified (ICD-10) Bipolar 1 disorder ?F31.9 - Bipolar disorder, unspecified (ICD-10) Anxiety ?F41.9 - Anxiety disorder, unspecified (ICD-10) Depression ?F32.A - Depression, unspecified (ICD-10) PCOS (polycystic ovarian syndrome) ?E28.2 - Polycystic ovarian syndrome (ICD-10) Insulin resistance ?E88.819 - Insulin resistance, unspecified (ICD-10) 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 (ICD-10) POTS (postural orthostatic tachycardia syndrome) ?G90.A - Postural orthostatic tachycardia syndrome [POTS] (ICD-10) Systemic mastocytosis ?D47.02 - Systemic mastocytosis (ICD-10) Surgical History (Updated 08/13/24 @ 11:25 by Estella Eugene NP) History of myringotomy ?Z98.890 - Other specified postprocedural states (ICD-10) H/O esophagogastroduodenoscopy ?Z98.890 - Other specified postprocedural states (ICD-10) Hx of tonsillectomy ?Z90.89 - Acquired absence of other organs (ICD-10) Family History (Updated 08/13/24 @ 11:25 by Estella Eugene NP) Grandmother Family history of hypertension Family history of CHF (congestive heart failure) Family history of COPD (chronic obstructive pulmonary disease) Aunt Family history of cancer Family history of diabetes mellitus Grandfather Family history of cancer Family history of diabetes mellitus Family history of hypertension Uncle Family history of cancer Family history of diabetes mellitus Father Family history of hypertension Other Family history of DVT Family history of seizures Social History (Updated 08/13/24 @ 11:18 by Estella Eugene NP) Within the past year, how often did you have a drink containing alcohol: monthly or less Within the past year, how many standard drinks containing alcohol did you have on a typical day: 1 or 2 Within the past year, how often did you have six or more drinks on one occasion: never Total score: 0 Score interpretation: A score less than 3 is consistent with normal alcohol consumption. 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 General: The patient appears somewhat dyspneic. Skin: Warm, dry, no pallor noted. There is no rash noted. Head: Normocephalic, atraumatic Eye: Normal conjunctiva, no drainage Ears, Nose, Mouth, and Throat: oral mucosa is moist. Nares patent. Cardiovascular: Regular Rate and Rhythm, not tachycardic Respiratory: Patient is in no distress, no accessory muscle use, lungs are clear to auscultation, no wheezing, rales or rhonchi Back: non-tender GI: Obese and nontender Musculoskeletal: The patient has no evidence of calf tenderness, no pitting edema, symmetrical pulses noted bilaterally Neurological: A&O, normal speech Psychiatric: Cooperative Constitutional Vital Signs, click to edit/add: Last Vital Signs Temp 99.1 F 08/13/24 21:30 Pulse 98 H 08/13/24 21:30 Resp 20 08/13/24 21:30 BP 140/98 H 08/13/24 21:30 Pulse Ox 99 08/13/24 21:30 O2 Del Method Room Air 08/13/24 21:30 Course Vital Signs Vital signs: Vital Signs Temperature 99.1 F 08/13/24 21:30 Pulse Rate 98 H 08/13/24 21:30 Respiratory Rate 20 08/13/24 21:30 Blood Pressure 140/98 H 08/13/24 21:30 Pulse Oximetry 99 08/13/24 21:30 Oxygen Delivery Method Room Air 08/13/24 21:30 Temperature 99.1 F 08/13/24 21:30 Pulse Rate 98 H 08/13/24 21:30 Respiratory Rate 20 08/13/24 21:30 Blood Pressure 140/98 H 08/13/24 21:30 Pulse Oximetry 99 08/13/24 21:30 Oxygen Delivery Method Room Air 08/13/24 21:30 Medical Decision Making MDM Narrative Medical decision making narrative: Hemoglobin is 8.7 which is only down slightly from 9.3 three days ago. She is not . I discussed the case with Dr. Donato and the patient will be discharged home and she will have her D&C performed on August 16 as scheduled. Treatment diagnosis and follow-up were discussed with the patient and her family. Differential Diagnosis Differential Diagnosis: Dysfunctional uterine bleeding, anemia Lab Data Lab results reviewed: Yes I reviewed the patient's lab results Labs: Lab Results 08/13/24 Range/Units 22:15 WBC 14.5 H (4.0-11.0) 10^3/uL RBC 3.50 L (4.20-5.40) 10^6/uL Hgb 8.7 L (12.0-16.0) g/dL Hct 28.2 L (36.0-48.0) % MCV 80.6 L (81.0-99.0) fL MCH 24.9 L (26.7-34.0) pg MCHC 30.9 (29.9-35.2) g/dL RDW 16.5 H (11.0-15.0) % Plt Count 289 (150-450) 10^3/uL MPV 8.4 L (9.5-13.5) fL Neut % (Auto) 74.1 (43.0-75.0) % Lymph % (Auto) 18.2 L (20.5-60.0) % [place] % (Auto) 4.8 (1.7-12.0) % Eos % (Auto) 2.1 (0.9-7.0) % Baso % (Auto) 0.3 (0.2-2.0) % Neut # (Auto) 10.8 H (1.4-6.5) 10^3/uL Lymph # (Auto) 2.6 (1.2-3.8) 10^3/uL [place] # (Auto) 0.7 (0.3-0.8) 10^3/uL Eos # (Auto) 0.3 (0.0-0.7) 10^3/uL Baso # (Auto) 0.1 (0.0-0.1) 10^3/uL Abs Immat Gran (auto) 0.07 H (0.00-0.03) 10^3/uL Imm/Tot Granulo (auto) 0.5 (0.0-0.5) % PT 10.3 (9.0-11.6) sec INR 0.97 APTT 23.9 (22.3-36.2) sec Sodium 141 (136-145) mmol/L Potassium 4.1 (3.5-5.1) mmol/L Chloride 107 (98-107) mmol/L Carbon Dioxide 22.5 (21.0-32.0) mmol/L Anion Gap 15.6 BUN 10.0 (7.0-18.0) mg/dL Creatinine 0.99 (0.55-1.02) mg/dL Est GFR ( Amer) >60 (>=60 mL/min/1.73m^2) Est GFR (Non-Af Amer) >60 (>=60 mL/min/1.73m^2) BUN/Creatinine Ratio 10.1 Glucose 158 H (74-106) mg/dL Calcium 9.3 (8.5-10.1) mg/dL Serum HCG, Qual Negative (NEGATIVE) ECG Data Attestation: I personally reviewed and interpreted this ECG as follows: (EKG on my interpretation shows sinus rhythm with rate of 90 and no acute change) Discharge Plan Discharge Chief Complaint: Abdominal Pain Clinical Impression: Dysfunctional uterine bleeding, Anemia Patient Disposition: Home, Self-Care Time of Disposition Decision: 22:54 Condition: Good Mode of Transportation: Private Vehicle Prescriptions / Home Meds: No Action ketorolac 10 mg tablet 10 mg PO TID PRN (Reason: pain) Qty: 10 0RF promethazine 25 mg tablet 25 mg PO Q6H PRN (Reason: nausea and vomiting) Qty: 12 0RF atorvastatin 20 mg tablet 20 mg PO .QHS (DME) blood-glucose meter [OneTouch Ultra2 Meter] Misc MISCELLANEOUS (DME) OneTouch Ultra Test Strip MISCELLANEOUS buspirone 10 mg tablet 10 mg PO BID docusate sodium 100 mg capsule 100 mg PO .QHS PRN (Reason: constipation) Slynd 4 mg (28) tablet 4 mg PO DAILY ferrous sulfate [FeroSul] 325 mg (65 mg iron) tablet 325 mg PO DAILY guanfacine 1 mg tablet extended release 24 hr 1 mg PO .QHS lamotrigine 100 mg tablet 100 mg PO DAILY lisinopril 5 mg tablet 5 mg PO DAILY sertraline 50 mg tablet 50 mg PO DAILY Januvia 50 mg tablet 50 mg PO DAILY aripiprazole 5 mg tablet 5 mg PO QPM prazosin 1 mg capsule 2 mg PO QPM quetiapine 50 mg tablet 50 mg PO .QHS megestrol 20 mg tablet 20 mg PO BID MDD bid for 2 days, then daily Qty: 30 11RF Rx Instructions: bid for 2 days, then daily Print Language: Greek Instructions: Abnormal (Dysfunctional) Uterine Bleeding (ED), Anemia (ED) Additional Instructions: See Dr. Donato on Monday for your procedure. Referrals: Aleyda Garland NP [Primary Care Provider] - 1 week
[2024-08-13 22:29] LABS: Basophils Absolute Auto 0.1 10^3/uL (0.0-0.1); Basophils Percent Auto 0.3 % (0.2-2.0); Eosinophils Absolute Auto 0.3 10^3/uL (0.0-0.7); Eosinophils Percent Auto 2.1 % (0.9-7.0); Hematocrit 28.2 % (36.0-48.0); Hemoglobin 8.7 g/dL (12.0-16.0); Immature Granulocytes Abs Auto 0.07 10^3/uL (0.00-0.03); Immature Granulocytes Pct Auto 0.5 % (0.0-0.5); Lymphocytes Absolute Auto 2.6 10^3/uL (1.2-3.8); Lymphocytes Percent Auto 18.2 % (20.5-60.0); Mean Corpuscular HGB Conc 30.9 g/dL (29.9-35.2); Mean Corpuscular Hemoglobin 24.9 pg (26.7-34.0); Mean Corpuscular Volume 80.6 fL (81.0-99.0); Mean Platelet Volume 8.4 fL (9.5-13.5); Monocytes Absolute Auto 0.7 10^3/uL (0.3-0.8); Monocytes Percent Auto 4.8 % (1.7-12.0); Neutrophils Absolute Auto 10.8 10^3/uL (1.4-6.5); Neutrophils Percent Auto 74.1 % (43.0-75.0); Platelet Count 289 10^3/uL (150-450); Red Cell Distribution Width 16.5 % (11.0-15.0); White Blood Count 14.5 10^3/uL (4.0-11.0)
[2024-08-13 22:37] LABS: Anion Gap 15.6; BUN Creatinine Ratio 10.1; Calcium 9.3 mg/dL (8.5-10.1); Carbon Dioxide 22.5 mmol/L (21.0-32.0); Chloride 107 mmol/L (98-107); Estimated GFR (African America >60 (>=60 mL/min/1.73m^2); Estimated GFR (Non-African Ame >60 (>=60 mL/min/1.73m^2); Glucose 158 mg/dL (74-106); Potassium 4.1 mmol/L (3.5-5.1); Sodium 141 mmol/L (136-145)
[2024-08-13 22:45] LABS: HCG Qualitative NEGATIVE (NEGATIVE); INR 0.97; Internal Control Within Normal Limits; Partial Thromboplastin Time 23.9 sec (22.3-36.2); Prothrombin Time 10.3 sec (9.0-11.6)
[2024-08-13 22:58] VITALS: BP 138/90; PULSE 101; TEMP 37.2; O2SAT 98
== END 2024-08-13 23:05 | disposition home or self-care (01) ==
PROVIDERS: Emergency Provider Emergency Medicine; PCP Nurse Practitioner Family
DX: N93.8 Other specified abnormal uterine and vaginal bleeding (principal); D64.9 Anemia, unspecified; F17.290 Nicotine dependence, other tobacco product, uncomplicated
CPT/HCPCS: 36415; 80048; 84703; 85025; 85610; 85730; 93005; 99284

== ENCOUNTER 2024-08-16 07:34 | Day surgery (SDC) | payer OTHER, SELFPAY ==
[2024-08-13 11:39] VITALS: BP 132/81; PULSE 103; TEMP 36.6; O2SAT 98; BMI 57.4
[2024-08-16] VITALS (9 sets, daily range): BP systolic 128–176; BP diastolic 79–92; PULSE 104–120; TEMP 35.9–36.6; O2SAT 95–100; BMI 57.0
--- OUTSIDE RECORDS SUMMARY | 2024-08-16 07:38 | XMS_ITS | CCD ---
Author Organization [facility] Care Team Providers Care Furrier Designer Name Role Phone MARIBEL ASTORGA MD Unavailable Unavailab le MARIBEL ASTORGA MD Unavailable Unavailab jazmin NONE Unavailable Unavailable ADDIS BARBER Attending Unavailable ADDIS BARBER Consulting Unavailable ADDIS BARBER Admitting Unavailable Armani CHAVEZ, Denny Primary Care Provider Armani BILL ADJUSTER - SCOTT, Denny M Primary Care Provider [...] ARMANI, DENNY M Primary Care Unavailable Armani BILL ADJUSTER - ACCOUNTING SYSTEMS ANALYST, Denny M Primary Care Provider ARMANI, DENNY M Referring Unavailable ARMANI, DENNY M Primary Care Unavailable Armani SCOTT, Denny Primary Care Provider ARMANI, DENNY M Primary [...] 500-125 MG Oral Tablet] Drug Allergy 1 [facility] ARIPiprazole (6 sources) ARIPiprazole; Translations: [Abilify] Drug Allergy 1 [facility] metFORMIN (6 sources) metFORMIN; Translations: [metformin] Drug Allergy 1 Nausea, Vomiting [facility] Serotonin Reuptake Inhibitors (SSRIs) (7 sources) Sertraline; Translations: [trazodone hydrochloride] Drug Allergy 1 Panic attack, slow/groggy [facility] Unclassified (6 sources) Amoxicillin-Pot Clavulanate; Translations: [AMOXICILLIN-PO T CLAVULANATE] Propensity to adverse reactions to drug 7 [facility] (1 source) Amoxicillin / Clavulanate Drug Allergy 4 [facility] (20 sources) Amoxicillin / Clavulanate; Translations: [Augmentin 500-125 MG Oral Tablet] Drug Allergy 1 [facility] (20 sources) ARIPiprazole; Translations: [Abilify] Drug Allergy 1 [facility] (20 sources) metFORMIN; Translations: [METFORMIN] Drug Allergy 0 Nausea, Vomiting [facility] (15 sources) Sertraline Drug Allergy 1 slow/ [facility] (4 sources) traZODone Drug Allergy 2 Panic attack [facility] (1 source) nickel; Translations: [NICKEL] Drug Allergy 7 [facility] (1 source) CARBONIC ANHYDRASE INHIBITORS; Translations: [CARBONIC ANHYDRASE INHIBITORS] Propensity to adverse reactions to drug (disorder) 7 [facility] (8 sources) Sertraline Drug Allergy 4 slow/groggy [facility] (8 sources) traZODone Drug Allergy 4 Panic attack [facility] Medications Current Medications Medication Drug Class(es) Dates [...] as needed 0 Active polyethylene glycol 3350 39264 mg powder for oral solution (20 sources) [...] oral solution (20 sources) alpha-Adrenergic Agonist, Uncompetitive W-ximwdu-R-aspartat e Receptor Antagonist, Sigma-1 Agonist Start: 04-22-2021 [...] / neomycin 3.5 mg/ml / polymyxin b 24953 unt/ml otic suspension (20 sources) Aminoglycoside Antibacterial, Polymyxin-class Antibacterial, Corticosteroid Start: 04-23-2021 End: 06-17-2021 Skubtbwg-Cxdudjrrr-LL 3.5-73434-0 Otic Suspension 04/23/2021 - 06/17/2021 Provider: Denny [...] Ferritin [Mass/Vol] 118 ng/mL (15-150 ) [facility] Free T3 [Mass/Vol] 3.2 pg/mL (2.0-4.4 ) [facility] Free T4 [Mass/Vol] 1.13 ng/dL (0.82-1.7 7 ) [facility] Iron [Mass/Vol] 52 ug/dL (27-159 ) [facility] Iron binding capacity [Mass/Vol] 396 ug/dL (250-450 ) [facility] Iron binding capacity.unsaturated [Mass/Vol] 344 ug/dL (131-425 ) [facility] Iron saturation [Mass fraction] 13 % Low (15-55 ) [facility] TSH Qn 2.930 uIU/mL (0.450-4.50 0 ) [facility] Laboratory - Hematology and Cell countson 06-13-2024 Basophils (Bld) [#/Vol] 0.1 10*3/uL (0.0-0.2 ) [facility] Basophils/100 WBC (Bld) 0 % (Not Estab. ) [facility] Eosinophils (Bld) [#/Vol] 0.2 10*3/uL (0.0-0.4 ) [facility] Eosinophils/100 WBC (Bld) 1 % (Not Estab. ) [facility] Erythrocyte distribution width (RBC) [Ratio] 15.7 % High (11.7-15.4 ) [facility] Hematocrit (Bld) [Volume fraction] 41.3 % (34.0-46.6 ) [facility] Hemoglobin (Bld) [Mass/Vol] 12.9 g/dL (11.1-15.9 ) [facility] Immature granulocytes (Bld) [#/Vol] 0.1 10*3/uL (0.0-0.1 ) [facility] Immature granulocytes/100 WBC (Bld) 1 % (Not Estab. ) [facility] Lymphocytes (Bld) [#/Vol] 2.4 10*3/uL (0.7-3.1 ) [facility] Lymphocytes/100 WBC (Bld) 18 % (Not Estab. ) [facility] MCH (RBC) [Entitic mass] 24.3 pg Low (26.6-33.0 ) [facility] MCHC (RBC) [Mass/Vol] 31.2 g/dL Low (31.5- 35.7 ) [facility] MCV (RBC) [Entitic vol] 78 fL Low (79-97 ) [facility] Monocytes (Bld) [#/Vol] 0.6 10*3/uL (0.1-0.9 ) [facility] Monocytes/100 WBC (Bld) 5 % (Not Estab. ) [facility] Morphology Ramesh (Bld) [Interp] SOCIAL MEDIA MARKETING SPECIALIST [facility] Neutrophils (Bld) [#/Vol] 9.7 10*3/uL High (1.4-7.0 ) [facility] Neutrophils/100 WBC (Bld) 75 % (Not Estab. ) [facility] Nucleated RBC/100 WBC (Bld) [Ratio] SOCIAL MEDIA MARKETING SPECIALIST [facility] Platelets (Bld) [#/Vol] 308 10*3/uL (150-450 ) [facility] RBC (Bld) [#/Vol] 5.31 10*6/uL High (3.77-5.28 ) [facility] WBC (Bld) [#/Vol] 13.1 10*3/uL High (3.4-10.8 ) [facility] - Serology - non- microon 06-13-2024 Thyroglobulin Ab Qn [IU]/mL (0.0-0.9 ) [employer] Comment on above: Note: Thyroglobulin Antibody measured by Frankie CoulterMethodology .It should be noted that the presence of thyroglobulinantibodies may not be pathogenic nor diagnostic, especiallyat very low levels. The assay guest services assistant has found thatfour percent of individuals without evidence of thyroiddisease or autoimmunity will have positive TgAb levels upto 4 IU/mL. TPO Ab Qn 14 [IU]/mL (0-34 ) [facility] No Panel Informationon 06-13 Immature Cells SOCIAL MEDIA MARKETING SPECIALIST [facility] Reported Physicians See Note [employer] Comment on above: Note: Reported Physi cians:Ordering: Denny Lomeli Troponin I.cardiac High sens itivity method [Mass/Vol]on 02-29-2024 1 HOUR TROP I, HIGH SENSITIVITY <2 Normal <16 [facility] Comment on above: Performed By: #### 8 9579-7 #### [facility] ([id number]) [address] [place] [address] 08455 BASIC METABOLIC PANLon 02-27 Anion gap [Moles/Vol] 7 mmol/L Normal 5-15 [facility] Comment on above: Performed By: #### C BCA, BMP, 80305-0, 59642-1, 21192-6 #### [facility] ([id number]) [address] [place] [address] 88386 Calcium [Mass/Vol] 8.9 mg/dL Normal 8.5-10.5 [facility] Comment on above: Performed By: #### C BCA, BMP, 00644-6, 07049-0, 98374-2 #### [facility] ([id number]) [address] [place] [address] 22437 Chloride [Moles/Vol] 101 mmol/L Normal 98-109 [facility] Comment on above: Performed By: #### C BCA, BMP, 52104-0, 50088-5, 67479-7 #### [facility] ([id number]) [address] [place] [address] 72701 CO2 [Moles/Vol] 28 mmol/L Normal 22-32 [facility] Comment on above: Performed By: #### C BCA, BMP, 25788-6, 63359-5, 58553-8 #### [facility] ([id number]) [address] [place] [address] 24963 Creatinine [Mass/Vol] 0.91 mg/dL Normal 0.40-1.00 [facility] Comment on above: Result Comment: METH OD TRACEABLE TO IDMS STANDARD Performed By: #### C BCA, BMP, 06928-4, 80425-6, 77926-5 #### [facility] ([id number]) [address] [place] [address] 19405 eGFR (CKD-EPI) NON-RACE DEPENDENT >90 Normal >59 [facility] Comment on above: Result Comment: Reported eGFR is based on the CKD-EPI 2020 equation that does not use a race coefficient. Performed By: #### C BCA, BMP, 73068-8, 75133-3, 69800-5 #### [facility] ([id number]) [address] [place] [address] 01342 Glucose [Mass/Vol] 107 mg/dL High 65-99 [facility] Comment on above: Performed By: #### C BCA, BMP, 37381-8, 84760-0, 24758-4 #### [facility] ([id number]) [address] [place] [address] 90635 Potassium [Moles/Vol] 3.5 mmol/L Normal 3.5-5.0 [facility] Comment on above: Performed By: #### C BCA, BMP, 27198-8, 53947-7, 14124-0 #### [facility] ([id number]) [address] [place] [address] 70392 Sodium [Moles/Vol] 136 mmol/L Normal 134-146 [facility] Comment on above: Performed By: #### C MARIETTA, BMP, , 04044-9, 77569-0 #### [facility] ([id number]) [address] [place] [address] 50283 Urea nitrogen [Mass/Vol] 10 mg/dL Normal 5-23 [facility] Comment on above: Performed By: #### C MARIETTA, BMP, , 23450-4, 08052-4 #### [facility] ([id number]) [address] [place] [address] 08991 CBC AND AUTO DIFFon 02-28-20 24 ABSOLUTE BASOPHIL 0.2 X10E9/L Normal 0.0-0.2 [facility] Comment on above: Performed By: #### C MARIETTA, BMP, , 16627-4, 67153-2 #### [facility] ([id number]) [address] [place] [address] 12854 ABSOLUTE NEUTROPHIL 10.7 X10E9/L High 1.5-6.6 [facility] Comment on above: Performed By: #### C MARIETTA, BMP, , 86689-9, 11578-7 #### [facility] ([id number]) [address] [place] [address] 18906 Basophils/100 WBC (Bld) 1.1 % Normal [facility] Comment on above: Performed By: #### C MARIETTA, BMP, , 61216-1, 14759-9 #### [facility] ([id number]) [address] [place] [address] 05119 Eosinophils (Bld) [#/Vol] 0.2 10*3/uL Normal 0.0-0.4 [facility] Comment on above: Performed By: #### C BCA, BMP, 74274-7, 05503-4, 56447-1 #### [facility] ([id number]) [address] [place] [address] 75693 Eosinophils/100 WBC (Bld) 1.3 % Normal [facility] Comment on above: Performed By: #### C BCA, BMP, , 92412-8, 60113-2 #### [facility] ([id number]) [address] [place] [address] 86449 Erythrocyte distribution width (RBC) [Ratio] 19.4 % High 11.5-15.0 [facility] Comment on above: Performed By: #### C BCA, BMP, , 37276-4, 38587-1 #### [facility] ([id number]) [address] [place] [address] 79522 Hematocrit (Bld) [Volume fraction] 33.5 % Low 35-47 [facility] Comment on above: Performed By: #### C BCA, BMP, , 80832-4, 75789-2 #### [facility] ([id number]) [address] [place] [address] 42405 Hemoglobin (Bld) [Mass/Vol] 10.6 g/dL Low 11.7-15.5 [facility] Comment on above: Performed By: #### C BCA, BMP, , 65900-2, 70941-0 #### [facility] ([id number]) [address] [place] [address] 32020 Lymphocytes (Bld) [#/Vol] 2.4 10*3/uL Normal 1.0-3.5 [facility] Comment on above: Performed By: #### C BCA, BMP, , 81313-1, 99039-8 #### [facility] ([id number]) [address] [place] [address] 10329 Lymphocytes/100 WBC (Bld) 17.2 % Normal [facility] Comment on above: Performed By: #### C BCA, BMP, 87482-4, 70223-0, 28696-4 #### [facility] ([id number]) [address] [place] [address] 00131 MCH (RBC) [Entitic mass] 21.7 pg Low 27-34 [facility] Comment on above: Performed By: #### C MARIETTA, BMP, 15882-0, 32939-8, 08827-5 #### [facility] ([id number]) [address] [place] [address] 42046 MCHC (RBC) [Mass/Vol] 31.6 g/dL Low 32-36 [facility] Comment on above: Performed By: #### C MARIETTA, BMP, , 93393-2, 78751-1 #### [facility] ([id number]) [address] [place] [address] 39585 MCV (RBC) [Entitic vol] 69 fL Low 80-100 [facility] Comment on above: Performed By: #### Maryjo MCMANUS, BMP, , 72481-1, 52595-8 #### [facility] ([id number]) [address] [place] [address] 59849 Monocytes (Bld) [#/Vol] 0.7 10*3/uL Normal 0-0.9 [facility] Comment on above: Performed By: #### Maryjo MCMNAUS, BMP, 66866-0, 87967-8, 85028-9 #### [facility] ([id number]) [address] [place] [address] 58814 Monocytes/100 WBC (Bld) 4.8 % Normal [facility] Comment on above: Performed By: #### C BCA, BMP, 66172-9, 17886-2, 46368-3 #### [facility] ([id number]) [address] [place] [address] 23390 Neutrophils/100 WBC (Bld) 75.6 % Normal [facility] Comment on above: Performed By: #### Maryjo BCA, BMP, 88622-9, 88301-5, 20589-4 #### [facility] ([id number]) [address] [place] [address] 90476 Platelet mean volume (Bld) [Entitic vol] 6.6 fL Low 7-12 [facility] Comment on above: Performed By: #### Maryjo BCA, BMP, 32943-6, 91847-0, 20376-7 #### [facility] ([id number]) [address] [place] [address] 90316 Platelets (Bld) [#/Vol] 333 10*3/uL Normal 150-450 [facility] Comment on above: Performed By: #### Maryjo MCMANUS, BMP, 06952-9, 63025-4, 63243-0 #### [facility] ([id number]) [address] [place] [address] 23710 RBC COUNT 4.88 X10E12/L Normal 3.80-5.20 [facility] Comment on above: Performed By: #### Maryjo BCA, BMP, 74688-1, 34157-8, 67647-6 #### [facility] ([id number]) [address] [place] [address] 28867 RBC morphology finding Nom (Bld) REVIEWED Normal [facility] Comment on above: Performed By: #### Maryjo BCA, BMP, 22287-2, 87847-2, 84490-1 #### [facility] ([id number]) [address] [place] [address] 83968 WBC (Bld) [#/Vol] 14.1 10*3/uL High 4.0-11.0 [facility] Comment on above: Performed By: #### C VERONIQUE MCMANUS, , 18917-3, 51494-8 #### [facility] ([id number]) [address] [place] [address] 08555 Fibrin D-dimer DDU (PPP) [Ma ss/Vol]on 02-28-2024 [...] if the patient's symptoms persist or worsen. [email or web address] Performed By: #### C VERONIQUE MCMANUS, , 69782-4, 83971-4 #### [facility] ([id number]) [address] [place] [address] 93002 MAGNESIUMon 02-28-2024 Magnesium [Mass/Vol] 1.8 mg/dL Normal 1.8-2.6 [facility] Comment on above: Performed By: #### C VERONIQUE MCMANUS, , 25905-6, 82272-6 #### [facility] ([id number]) [address] [place] [address] 73240 Troponin I.cardiac High sens itivity method [Mass/Vol]on 02-28-2024 TROPONIN I, HIGH SENSITIVITY <2 Normal <16 [facility] Comment on above: Performed By: #### C VERONIQUE MCMANUS, , 61446-2, 53556-1 #### [facility] ([id number]) [address] [place] [address] 42546 XR CHEST 2 VWSon 02-28-2024 XR CHEST 2 VWS XR CHEST 2 VWS XR CHEST 2 VWS History: . chest discomfort. Comparison: 03/30/2020 Impression: No acute pulmonary process. No pneumothorax or pleural effusion. Nonenlarged heart. Finalized by Ilir Amaya MD on 02/28/2024 9:49 PM Normal [facility] Chlamydia/GC DNA, Uron 08-15 Chlamydia Probe, Ur Negative Normal NEG [facility] Comment on above: Result Comment: CHLA [...] Performed By: #### T RCMOL, UCGP #### [employer] [address] [place], [place] [address] Bleach Range Operator: Soren Gracia MD Gonorrhea Probe, Ur Negative Normal NEG [facility] Comment on above: Result Comment: NEIS [...] Performed By: #### T RCMOL, UCGP #### [employer] [facility] [place], [place] [address] Bleach Range Operator: Soren Gracia MD Trich Vag, Molecularon 08-13 Trich Vag, Molecular Negative Normal NEG [facility] Comment on above: Result Comment: [...] Performed By: #### T RCBIJAN UCGP #### [email or web address] [address] [place], [place] [address] Bleach Range Operator: Soren Gracia MD Source: .URINE Normal [facility] Comment on above: Performed By: #### T NADEGE, UCGP #### [email or web address] [address] [place], [place] [address] Bleach Range Operator: Soren Gracia MD Acetaminophenon 07-06-2021 Acetaminophen [Mass/Vol] ug/mL Low 10-30 [facility] Comment on above: Performed By: #### C OVRB #### [facility] [address] [place] [address] Bleach Range Operator: Garrett Perez MD Acetaminophen LevelOrdered B y: Kalyan Irizarry on 07-06-2021 Acetaminophen Level <5 Low 10 - 30 ug/mL [employer] Phone: Interpretation and review of laboratory results Abnormal [employer] Phone: [employer] [facility] Phone: CBC Auto DifferentialOrdered By: Kalyan Irizarry on 07-06-2021 Absolute Eos # 0.62 High [employer] Phone: Absolute Immature Granulocyte 0.07 [employer] Phone: Absolute Lymph # 3.20 [employer] Phone: Absolute Tillman # 0.89 [employer] Phone: Basophils (Bld) [#/Vol] 0.10 10*3/uL [employer] Phone: Basophils/100 WBC (Bld) 1 % 0 - 2 % [facility]: Differential Type NOT REPORTED [employer] Phone: Eosinophils/100 WBC (Bld) 5 % High 1 - 4 % [employer] Phone: Hematocrit (Bld) [Volume fraction] 43.4 % 36.3 - 47.1 % [employer] Phone: Hemoglobin.gastrointest inal spec 1 Ql (Stl) 14.6 g/dL 11.9 - 15.1 g/dL [employer] Phone: Immature granulocytes/100 WBC (Bld) 1 % High 0 [employer] Phone: Interpretation and review of laboratory results Abnormal [employer] Phone: Lymphocytes/100 WBC (Bld) 26 % 24 - 43 % [employer] Phone: MCH (RBC) [Entitic mass] 28.3 pg 25.2 - 33.5 pg [employer] Phone: MCHC (RBC) [Mass/Vol] 33.6 g/dL 28.4 - 34.8 g/dL [employer] Phone: MCV (RBC) [Entitic vol] 84.3 fL 82.6 - 102.9 fL [employer] Phone: Monocytes/100 WBC (Bld) 7 % 3 - 12 % M [employer] Phone: NRBC Automated 0.0 0.0 per 100 WBC [employer] Phone: Platelet distribution width (Bld) [Ratio] 12.3 % 11.8 - 14.4 % [employer] Phone: Platelet Estimate NOT REPORTED [employer] Phone: Platelet mean volume (Bld) [Entitic vol] 8.7 fL 8.1 - 13.5 fL [employer] Phone: Platelets (Bld) [#/Vol] 273 10*3/uL [employer] Phone: RBC (Bld) [#/Vol] 5.15 10*6/uL High 3.95 - 5.1 1 m/uL [facility]: RBC (Bld) [#/Vol] NOT REPORTED [employer] Phone: Segmented neutrophils/100 WBC (Bld) 60 % 36 - 65 % [employer] Phone: Segs Absolute 7.61 [facility] Phone: WBC (Bld) [#/Vol] 12.5 10*3/uL High [facility] Phone: WBC (Bld) [#/Vol] NOT REPORTED [facility]: [employer] Phone: CBC with Diffon 07-06-2021 Abs. Basophil 0.10 k/uL Normal 0.00-0.20 [facility] Comment on above: Performed By: #### D AU #### [facility] [address] [place], [place] [id number] Bleach Range Operator: Garrett Perez MD Abs.Imm.Granulocyte 0.07 k/uL Normal 0.00-0.30 [facility] Comment on above: Performed By: #### D AU #### [facility] [address] [place], [place] [address] Bleach Range Operator: Garrett Perez MD Abs.Neutrophil (Seg) 7.61 k/uL Normal 1.50-8.10 [facility] Comment on above: Performed By: #### D AU #### [facility] [address] [place] [address] Bleach Range Operator: Garrett Perez MD Basophils/100 WBC (Bld) 1 % Normal 0-2 M [facility] Comment on above: Performed By: #### D AU #### [facility] [address] [place] [address] Bleach Range Operator: Garrett Perez MD Eosinophils (Bld) [#/Vol] 0.62 10*3/uL High 0.00-0.44 [facility] Comment on above: Performed By: #### D AU #### [facility] [address] [place] [address] [place], [place] 2089[address] Bleach Range Operator: Garrett Perez MD Eosinophils/100 WBC (Bld) 5 % High 1-4 [facility] Comment on above: Performed By: #### D AU #### [address] [place] [address] Bleach Range Operator: Garrett Perez MD Erythrocyte distribution width (RBC) [Ratio] 12.3 % Normal 11.8-14.4 [facility] Comment on above: Performed By: #### D AU #### [address] [place], [facility] ( Bleach Range Operator: Garrett Perez MD Hematocrit (Bld) [Volume fraction] 43.4 % Normal 36.3-47.1 [facility] Comment on above: Performed By: #### D AU #### [address] [place], [facility]83 Bleach Range Operator: Garrett Perez MD Hemoglobin (Bld) [Mass/Vol] 14.6 g/dL Normal 11.9-15.1 [facility] Comment on above: Performed By: #### D AU #### [address] [place] [address] Bleach Range Operator: Garrett Perez MD Immature granulocytes/100 WBC (Bld) 1 % High 0 [facility] Comment on above: Performed By: #### D AU #### [address] [place], [place] [address]227[address] Bleach Range Operator: Garrett Perez MD Lymphocytes (Bld) [#/Vol] 3.20 10*3/uL Normal 1.10-3.70 [facility] Comment on above: Performed By: #### D AU #### [facility] [address] [place] [address] Bleach Range Operator: Garrett Perez MD Lymphocytes/100 WBC (Bld) 26 % Normal 24-43 [facility] Comment on above: Performed By: #### D AU #### [facility] [address] [place], [facility] ( Bleach Range Operator: Garrett Perez MD MCH (RBC) [Entitic mass] 28.3 pg Normal 25.2-33.5 [facility] Comment on above: Performed By: #### D AU #### [address] [place] [address] ( Bleach Range Operator: Garrett Perez MD MCHC (RBC) [Mass/Vol] 33.6 g/dL Normal 28.4-34.8 [facility] Comment on above: Performed By: #### D AU #### [address] [place], [place] [address] Bleach Range Operator: Garrett Perez MD MCV (RBC) [Entitic vol] 84.3 fL Normal 82.6-102.9 [facility] Comment on above: Performed By: #### D AU #### [address] [place], [place] [address] Bleach Range Operator: Garrett Perez MD Monocytes (Bld) [#/Vol] 0.89 10*3/uL Normal 0.10-1.20 [facility] Comment on above: Performed By: #### D AU #### [address] [place], [facility]83 Bleach Range Operator: Garrett Perez MD Monocytes/100 WBC (Bld) 7 % Normal 3-12 M [facility] Comment on above: Performed By: #### D AU #### [address] [place], [place] [address] Bleach Range Operator: Garrett Perez MD Neutrophil (Seg) 60 % Normal 36-65 [facility] Comment on above: Performed By: #### D AU #### [facility] [address] [place] [address] [place], [place] [address]83 Bleach Range Operator: Garrett Perez MD NRBC Automated 0.0 per 100 WBC Normal 0.0 [facility] Comment on above: Performed By: #### D AU #### [facility] [address] [place] [address] [place], [place] 04[address] Bleach Range Operator: Garrett Perez MD Platelet mean volume (Bld) [Entitic vol] 8.7 fL Normal 8.1-13.5 [facility] Comment on above: Performed By: #### D AU #### [address] [place], [place] [address] Bleach Range Operator: Garrett Perez MD Platelets (Bld) [#/Vol] 273 10*3/uL Normal 138-453 [facility] Comment on above: Performed By: #### D AU #### [address] [place], [place] [address] Bleach Range Operator: Garrett Perez MD RBC (Bld) [#/Vol] 5.15 10*6/uL High 3.95-5.11 [facility] Comment on above: Performed By: #### D AU #### [facility] [address] [place] [address] [place], [place] 7[address] Bleach Range Operator: Garrett Perez MD WBC (Bld) [#/Vol] 12.5 10*3/uL High 3.5-11.3 [facility] Comment on above: Performed By: #### D AU #### [facility] [address] [place] [address] [place], [place] [phone] Bleach Range Operator: Garrett Perez MD Auto Diff Performed NOT REPORTED Normal [facility] Comment on above: Performed By: #### D AU #### [facility] [address] [place], [place] [id number] Bleach Range Operator: Garrett Perez MD Platelet Estimate NOT REPORTED Normal [facility] Comment on above: Performed By: #### D AU #### [facility] [address] [place], [place] 1974383 Bleach Range Operator: Garrett Perez MD RBC morphology finding Nom (Bld) NOT REPORTED Normal [facility] Comment on above: Performed By: #### D AU #### [facility] [address] [place] [address] Bleach Range Operator: Garrett Perez MD WBC Morphology NOT REPORTED Normal [facility] Comment on above: Performed By: #### D AU #### [facility] [address] [place], [place] [id number] Bleach Range Operator: Garrett Perez MD COVID-19, RapidOrdered By: Maryjo Irizarry on 07-06-2021 SARS-CoV-2 (COVID-19) RNA MORENA+probe Ql (Unsp spec) Not detected Not Detected [facility] Work Phone: Comment on above: Rapid [...] management decisions. Fact sheet for Healthcare Providers: https://www.fda.gov/media/282326/download Fact sheet for Patients: https://www.fda.gov/media/147160/download Methodology: Isothermal Nucleic Acid Amplification Specimen Description .NASOPHARYNGEAL SWAB [facility] Work Phone: [facility] Work Phone: Comp Metabolic Profon 2020 (cont.) Normal [facility] Comment on above: Result Comment: Aver age GFR for 20-29 years old: 116 mL/min/1.73sq m Chronic Kidney Disease: <60 mL/min/1.73sq m Kidney failure: <15 mL/min/1.73sq m eGFR calculated using average adult body mass. Additional eGFR calculator available at: http://www.Content Syndicate: Words [employer] Demand/multiple_crcl_2011.htm Performed By: #### D AU #### [facility] [address] [place] [address] Bleach Range Operator: Garrett Perez MD Albumin [Mass/Vol] 4.2 g/dL Normal 3.5-5.2 [facility] Comment on above: Performed By: #### D AU #### [facility] [address] [place], [place] [id number] Bleach Range Operator: Garrett Perez MD Albumin/Glob Ratio 1.4 Normal 1.0-2.5 [facility] Comment on above: Performed By: #### D AU #### [facility] [address] [place], [place] 640[address]83 Bleach Range Operator: Garrett Perez MD Alkaline Phos 74 U/L Normal 35-104 [facility] Comment on above: Performed By: #### D AU #### [facility] [address] [place], [place] 601[address]83 Bleach Range Operator: Garrett Perez MD ALT [Catalytic activity/Vol] 31 U/L Normal 5-33 [facility] Comment on above: Performed By: #### D AU #### [facility] [address] [place] [address] Bleach Range Operator: Garrett Perez MD Anion gap [Moles/Vol] 13 mmol/L Normal 9-17 [facility] Comment on above: Performed By: #### D AU #### [facility] [address] [place], [place] [id number] Ble[employer] Range Operator: Garrett Perez MD AST [Catalytic activity/Vol] 19 U/L Normal <32 [facility] Comment on above: Performed By: #### D AU #### [facility] [address] [place], [place] [address]473283 Bleach Range Operator: Garrett Perez MD Bilirubin [Mass/Vol] 0.17 mg/dL Low 0.3-1.2 [facility] Comment on above: Performed By: #### D AU #### [facility] [address] [place] [address] [address] [place], [place] [id number] Bleach Range Operator: Garrett Perez MD BUN/CRE Ratio 7 Low 9-20 [facility] Comment on above: Performed By: #### D AU #### [facility] [address] [place] [address] [place] [address] Ble[employer] Range Operator: Garrett Perez MD Calcium [Mass/Vol] 9.2 mg/dL Normal 8.6-10.4 [facility] Comment on above: Performed By: #### D AU #### [facility] [address] [place] [address] Ble[employer] Range Operator: Garrett Perez MD Chloride [Moles/Vol] 104 mmol/L Normal 98-107 [facility] Comment on above: Performed By: #### D AU #### [facility] [address] [place] [address] Bleach Range Operator: Garrett Perez MD CO2 [Moles/Vol] 20 mmol/L Normal 20-31 [facility] Comment on above: Performed By: #### D AU #### [facility] [address] [place], [place] 8128083 [employer] Range Operator: Garrett Perez MD Creatinine [Mass/Vol] 0.82 mg/dL Normal 0.50-0.90 [facility] Comment on above: Performed By: #### D AU #### [facility] [address] [place], [place] 2238383 Ble[employer] Range Operator: Garrett Perez MD GFR, Amer >60 Normal >60 [facility] Comment on above: Performed By: #### D AU #### [facility] [address] [place], [place] 714[address]83 Ble[employer] Range Operator: Garrett Perez MD GFR,non Amer >60 Normal >60 [facility] Comment on above: Performed By: #### D AU #### [facility] [address] [place], [place] 978[address]83 Ble[employer] Range Operator: Garrett Perez MD Glucose [Mass/Vol] 100 mg/dL High 70-99 [facility] Comment on above: Performed By: #### D AU #### [facility] [address] [place], [place] 4600183 Bleach Range Operator: Garrett Perez MD Potassium [Moles/Vol] 4.0 mmol/L Normal 3.7-5.3 [facility] Comment on above: Performed By: #### D AU #### [facility] [address] [place] [address] [place] [address] Ble[employer] Range Operator: Garrett Perez MD Protein [Mass/Vol] 7.2 g/dL Normal 6.4-8.3 [facility] Comment on above: Performed By: #### D AU #### [facility] [address] [place], [place] 0135483 Bleach Range Operator: Garrett Perez MD Sodium [Moles/Vol] 137 mmol/L Normal 135-144 [facility] Comment on above: Performed By: #### D AU #### [facility] [address] [place] [address] Bleach Range Operator: Garrett Perez MD Staging: Normal [facility] Comment on above: Result Comment: Stag e 1: Some kidney damage normal GFR Stage 2: Mild kidney damage GFR 60-89 Stage 3: Moderate kidney damage GFR 30-59 Stage 4: Severe kidney damage GFR 15-29 Stage 5: Severe kidney damage GFR <15 ESRD - chronic treatment by dialysis or transplant Performed By: #### D AU #### [facility] [address] [place] [address] Bleach Range Operator: Garrett Perez MD Urea nitrogen [Mass/Vol] 6 mg/dL Normal 6-20 [facility] Comment on above: Performed By: #### D AU #### [facility] [address] [place] [address] Bleach Range Operator: Garrett Perez MD Comprehensive Metabolic Pane lOrdered By: Kalyan Irizarry on 07-06-2021 Albumin [Mass/Vol] 4.2 g/dL 3.5 - 5.2 g/dL [employer] Phone: Albumin/Globulin [Mass ratio] 1.4 {ratio} [employer] [facility] Phone: ALP (Bld) [Catalytic activity/Vol] 74 U/L 35 - 104 U/L [employer] [facility] Phone: ALT [Catalytic activity/Vol] 31 U/L 5 - 33 U/L [employer] [facility] Phone: Anion gap [Moles/Vol] 13 mmol/L 9 - 17 mmol/L [employer] [facility] Phone: AST [Catalytic activity/Vol] 19 U/L <32 [employer] [facility] Phone: Bilirubin [Mass/Vol] 0.17 mg/dL Low 0.3 - 1 .2 mg/dL [employer] [facility] Phone: Calcium [Mass/Vol] 9.2 mg/dL 8.6 - 10. 4 mg/dL [employer] [facility] Phone: Chloride [Moles/Vol] 104 mmol/L 98 - 10 7 mmol/L [employer] [facility] Phone: CO2 [Moles/Vol] 20 mmol/L 20 - 31 mmol/L [employer] [facility] Phone: Creatinine [Mass/Vol] 0.82 mg/dL 0.50 - 0.90 mg/dL [employer] [facility] Phone: Free PSA/Total PSA [Mass fraction] 7.2 g/dL 6.4 - 8.3 g/dL [employer] [facility] Phone: GFR >60 >60 mL/min [employer] Phone: GFR Non- >60 >60 mL/min [employer] [facility] Phone: Glucose [Mass/Vol] 100 mg/dL High 70 - 99 mg/dL [employer] [facility] Phone: Potassium [Moles/Vol] 4.0 mmol/L 3.7 - 5.3 mmol/L [employer] [facility] Phone: Sodium [Moles/Vol] 137 mmol/L 135 - 144 mmol/L [employer] [facility] Phone: Urea nitrogen (BldV) [Mass/Vol] 6 mg/dL 6 - 20 mg/dL [employer] [facility] Phone: Urea nitrogen/Creatinine (Bld) [Mass ratio] 7 Low [employer] [facility] Phone: Drug Scr, Abuse, Uron 2020 Amphetamine(s),Ur Negative Normal NEG [facility] Comment on above: Performed By: #### D AU #### [facility] [address] [place] [address] Bleach Range Operator: Garrett Perez MD Barbiturate(s),Ur Negative Normal NEG [facility] Comment on above: Performed By: #### D AU #### [facility] [address] [place], [place] [id number] Bleach Range Operator: Garrett Perez MD Benzodiazepine(s) Negative Normal NEG [facility] Comment on above: Performed By: #### D AU #### [facility] [address] [place], [place] 515[address]83 Bleach Range Operator: Garrett Perez MD Buprenorphrine, Ur Negative Normal NEG [facility] Comment on above: Performed By: #### D AU #### [facility] [address] [place], [place] 1989883 Bleach Range Operator: Garrett Perez MD Cannabinoid(s),Ur Positive Abnormal NEG [facility] Comment on above: Performed By: #### D AU #### [facility] [address] [place], [place] 806[address]83 Bleach Range Operator: Garrett Perez MD Cocaine Metabolite Negative Normal [facility] Comment on above: Performed By: #### D AU #### [facility] [address] [place] [address] Bleach Range Operator: Garrett Perez MD Methadone Ql (U) Negative Normal [facility] Comment on above: Performed By: #### D AU #### [facility] [address] [place] [address] [place], [place] 2985083 Bleach Range Operator: Garrett Perez MD Methamphetamine, Ur Negative Normal [facility] Comment on above: Performed By: #### D AU #### [facility] [address] [place], [place] 3468783 Bleach Range Operator: Garrett Perez MD Opiate(s), Ur Negative Normal [facility] Comment on above: Performed By: #### D AU #### [facility] [address] [place], [place] 9949383 Bleach Range Operator: Garrett Perez MD Oxycodone, Urine Negative Normal [facility] Comment on above: Performed By: #### D AU #### [facility] [address] [place], [place] 38[address]83 Bleach Range Operator: Garrett Perez MD Phencyclidine, Ur Negative Normal NEG [facility] Comment on above: Performed By: #### D AU #### [facility] [address] [place], [place] [address]83 Bleach Range Operator: Garrett Perez MD Propoxyphene,Urine Negative Normal NEG [facility] Comment on above: Performed By: #### D AU #### [facility] [address] [place], [place] 5339883 Bleach Range Operator: Garrett Perez MD Tricyclic antidepressants Screen Ql (U) Negative Normal NEG [facility] Comment on above: Result Comment: Drug screen results are to be used for medical purposes only. All positive results are unconfirmed. Testing for employment or legal uses should be sent to a reference laboratory for confirmation. Performed By: #### D AU #### [facility] [address] [place] [address] [place] [address] Bleach Range Operator: Garrett Perez MD Interpretive Info NOT REPORTED Normal [facility] Comment on above: Performed By: #### D AU #### [facility] [address] [place] [address] [place], [place] 7040183 Bleach Range Operator: Garrett Perez MD MDMA, Urine NOT REPORTED Normal NEG [facility] Comment on above: Performed By: #### D AU #### [facility] [address] [place], [place] 7018683 Bleach Range Operator: Garrett Perez MD EthanolOrdered By: Kalyan iglesias on 07-06-2021 Ethanol [Mass/Vol] mg/dL <10 mg/dL [facility] [employer] Phone: Ethanol percent <0.010 <0.010 % [employer] [facility] Phone: [employer] [facility] Phone: Ethanol Alcoholon 07-06-2021 Ethanol [Mass/Vol] mg/dL Normal <10 [facility] Comment on above: Performed By: #### C OVRB #### [facility] [address] [place] [address] Bleach Range Operator: Garrett Perez MD Ethanol percent <0.010 Normal <0.010 [facility] Comment on above: Performed By: #### C OVRB #### [facility] [address] [place] [address] Bleach Range Operator: Garrett Perez MD HCG Qualitative, SerumOrdere d By: Kalyan Irizarry on 07-06-2021 hCG Qual Negative NEGATIVE [facility] [employer] Phone: Comment on above: Specimens with hCG l evels near the threshold of the test (25 mIU/mL) may give a negative or indeterminate result. In such cases, another test should be performed with a new specimen in 48-72 hours. If early is suspected clinically in this setting, correlation with quantitative serum b-hCG level is suggested. [employer] has confirmed the use of plasma for this test. This has not been cleared or approved by the U.S. Food and Drug Administration. The FDA has determined that such clearance is not necessary. [employer] Phone: HCG Screen, Bloodon 07-06-20 21 HCG Screen, Blood Negative Normal NEG [facility] Comment on above: Result Comment: Spec imens with hCG levels near the threshold of the test (25 mIU/mL) may give a negative or indeterminate result. In such cases, another test should be performed with a new specimen in 48-72 hours. If early is suspected clinically in this setting, correlation with quantitative serum b-hCG level is suggested. [employer] has confirmed the use of plasma for this test. This has not been cleared or approved by the U.S. Food and Drug Administration. The FDA has determined that such clearance is not necessary. Performed By: #### D AU #### [facility] [address] [place] [address] Bleach Range Operator: Garrett Perez MD Laboratory - Chemistry and C hemistry - challengeOrdered By: Kalyan Irizarry on 07-06-2021 GFR/1.73 sq M.predicted MDRD (S/P/Bld) [Vol rate/Area] [employer] Phone: Comment on above: Average GFR for 20-2 9 years old: 116 mL/min/1.73sq m Chronic Kidney Disease: <60 mL/min/1.73sq m Kidney failure: <15 mL/min/1.73sq m eGFR calculated using average adult body mass. Additional eGFR calculator available at: http://www.Content Syndicate: [employer]/multiple_crcl_2012.htm Stage 1: Some kidney damage normal GFR Stage 2: Mild kidney damage GFR 60-89 Stage 3: Moderate kidney damage GFR 30-59 Stage 4: Severe kidney damage GFR 15-29 Stage 5: Severe kidney damage GFR <15 ESRD - chronic treatment by dialysis or transplant No Panel InformationOrdered By: Kalyan Irizarry on 07-06-2021 Interpretation and review of laboratory results Abnormal [employer] [facility] Phone: [employer] Phone: [id number] 07-06-2021 SARS-CoV-2 (COVID-19) RNA MORENA+probe Ql (Unsp spec) Not detected Normal [facility] Comment on above: Result Comment: Rapid [...] management decisions. Fact sheet for Healthcare Providers: https://www.fda.gov/media/763331/download Fact sheet for Patients: https://www.fda.gov/media/411130/download Methodology: Isothermal Nucleic Acid Amplification Performed By: #### C OVRB #### [facility] [address] [place], [place] [id number] Bleach Range Operator: Garrett Perez MD Salicylateon 07-06-2021 Salicylate <1 Low 3-10 [facility] Comment on above: Performed By: #### D AU #### [facility] [address] [place] [address] Bleach Range Operator: Garrett Perez MD SalicylateOrdered By: Gil Irizarry on 07-06-2021 Salicylate Lvl <1 Low 3 - 10 mg/dL [facility] Work Phone: Urinalysis w/ Microon 2020 ----- Normal [facility] Comment on above: Performed By: #### C OVRB #### [facility] [address] [place], [place] 850[address]83 Bleach Range Operator: Garrett Perez MD Bacteria 1+ Abnormal NONE [facility] Comment on above: Performed By: #### C OVRB #### [facility] [address] [place], [place] [address]83 Bleach Range Operator: Garrett Perez MD Bilirubin, SemiQt,Ur Negative Normal NEG [facility] Comment on above: Performed By: #### C OVRB #### [facility] [address] [place] [address] Bleach Range Operator: Garrett Perez MD Blood, Urine Negative Normal NEG [facility] Comment on above: Performed By: #### C OVRB #### [facility] [address] [place] [address] Bleach Range Operator: Garrett Perez MD Clarity (U) CLEAR Normal CLEAR [facility] Comment on above: Performed By: #### C OVRB #### [facility] [address] [place], [place] 9539483 Bleach Range Operator: Garrett Perez MD Color (U) YELLOW Normal YEL [facility] Comment on above: Performed By: #### C OVRB #### [facility] [address] [place], [place] 3785283 Bleach Range Operator: Garrett Perez MD Epithelial cells LM Ql (Urine sed) 5 TO 10 Normal 0-25 [facility] Comment on above: Performed By: #### C OVRB #### [facility] [address] [place], [place] [address]27[address]83 Bleach Range Operator: Garrett Perez MD Glucose Ql (U) Negative Normal NEG [facility] Comment on above: Performed By: #### C OVRB #### [facility] [address] [place], [place] 9254683 Bleach Range Operator: Garrett Perez MD Ketones Ql (U) Negative Normal NEG [facility] Comment on above: Performed By: #### C OVRB #### [address] [place], [place] 522[address]83 Bleach Range Operator: Garrett Perez MD Leukocyte esterase Test strip Ql (U) Negative Normal NEG [facility] Comment on above: Performed By: #### C OVRB #### [facility] [address] [place], [place] 2340383 Bleach Range Operator: Garrett Perez MD Mucus Strands 1+ Abnormal NONE [facility] Comment on above: Performed By: #### C OVRB #### [facility] [address] [place] [address] Bleach Range Operator: Garrett Perez MD Nitrite,Ur Negative Normal NEG [facility] Comment on above: Performed By: #### C OVRB #### [facility] [address] [place] [address] Bleach Range Operator: Garrett Perez MD PH,Ur 6.5 Normal 5.0-9.0 [facility] Comment on above: Performed By: #### C OVRB #### [facility] [address] [place] [address] Bleach Range Operator: Garrett Perez MD Protein Ql (U) Negative Normal NEG [facility] Comment on above: Performed By: #### C OVRB #### [facility] [address] [place] [address] Bleach Range Operator: Garrett Perez MD Spec. [place],Ur 1.020 Normal 1.010-1.020 [facility] Comment on above: Performed By: #### C OVRB #### [facility] [address] [place] [address] Bleach Range Operator: Garrett Perez MD Urine RBC's 0 TO 2 Normal 0-2 [facility] Comment on above: Performed By: #### C OVRB #### [facility] [address] [place], [place] 5002383 Bleach Range Operator: Garrett Perez MD Urine WBC's 0 TO 2 Normal 0-5 [facility] Comment on above: Performed By: #### C OVRB #### [facility] [address] [place], [facility] Bleach Range Operator: Garrett Perez MD Urobilinogen,Ur Normal Normal NORM [facility] Comment on above: Performed By: #### C OVRB #### [facility] [address] [place], [place] 1624083 Bleach Range Operator: Garrett Perez MD Amorphous sediment LM Ql (Urine sed) NOT REPORTED Normal NONE [facility] Comment on above: Performed By: #### C OVRB #### [facility] [address] [place] 1797483 Bleach Range Operator: Garrett Perez MD Casts NOT REPORTED Normal [facility] Comment on above: Performed By: #### C OVRB #### [facility] [address] [place] [address] Bleach Range Operator: Garrett Perez MD Comment NOT REPORTED Normal [facility] Comment on above: Performed By: #### C OVRB #### [facility] [address] [place] [address] Bleach Range Operator: Garrett Perez MD Crystals LM Nom (Urine sed) NOT REPORTED Normal [facility] Comment on above: Performed By: #### C OVRB #### [facility] [address] [place] [address] [place] [place], [place] 4332083 Bleach Range Operator: Garrett Perez MD Epithelial, Renal NOT REPORTED Normal 0 [facility] Comment on above: Performed By: #### C OVRB #### [facility] [address] [place], [place] 1619483 Bleach Range Operator: Garrett Perez MD Other Observations NOT REPORTED [facility] Comment on above: Performed By: #### C OVRB #### [facility] [address] [place] [address] [place], [place] 7073183 Bleach Range Operator: Garrett Perez MD Trichomonas NOT REPORTED Normal [facility] Comment on above: Performed By: #### C OVRB #### [facility] [address] [place], [place] 5924483 Bleach Range Operator: Garrett Perez MD Yeast NOT REPORTED Normal [facility] Comment on above: Performed By: #### C OVRB #### [facility] [address] [place] [address] Bleach Range Operator: Garrett Perez MD Urinalysis with microscopicO rdered By: Kalyan Irizarry on 07-06-2021 - [facility] Work Phone: Amorphous, UA NOT REPORTED None [facility] Work Phone: Bacteria, UA 1+ Abnormal None [employer] Work Phone: Bilirubin Urine Negative NEGATIVE [employer] Work Phone: Casts UA NOT REPORTED /LPF [employer] Work Phone: Color, UA YELLOW YELLOW [employer] Work Phone: Crystals, UA NOT REPORTED None /HPF [facility] Work Phone: Epithelial Cells UA 5 TO 10 [employer] Work Phone: Glucose, Ur Negative NEGATIVE [employer] Work Phone: Interpretation and review of laboratory results Abnormal [employer] Work Phone: Ketones Ql (U) Negative NEGATIVE [employer] Work Phone: Leukocyte esterase Test strip Ql (U) Negative NEGATIVE [employer] Work Phone: Mucus, UA 1+ Abnormal None [employer] Work Phone: Nitrite, Urine Negative NEGATIVE [employer] Work Phone: Other Observations UA NOT REPORTED NOT REQ. M [facility] Work Phone: pH, UA 6.5 [facility] Work Phone: Protein, UA Negative NEGATIVE [employer] Work Phone: RBC, UA 0 TO 2 [employer] Work Phone: Renal Epithelial, UA NOT REPORTED 0 /HPF [employer] Work Phone: Specific [place], UA 1.020 [facility] Work Phone: Trichomonas, UA NOT REPORTED None [employer] Work Phone: Turbidity UA CLEAR CLEAR [employer] Work Phone: Urinalysis Comments NOT REPORTED [facility] Work Phone: Urine Hgb Negative NEGATIVE [facility] Work Phone: Urobilinogen, Urine Normal Normal [facility] Work Phone: WBC, UA 0 TO 2 [facility] Work Phone: Yeast, UA NOT REPORTED None [facility] Work Phone: [facility] Work Phone: Urine Drug ScreenOrdered By: Kalyan Irizarry on 07-06-2021 Amphetamine Screen, Ur Negative NEGATIVE [facility] Work Phone: Barbiturate Screen, Ur Negative NEGATIVE [facility] Work Phone: Benzodiazepine Screen, Urine Negative NEGATIVE [facility] Work Phone: Buprenorphine Urine Negative NEGATIVE [facility] Work Phone: Cannabinoid Scrn, Ur Positive Abnormal NEGATIVE [facility] Work Phone: Cocaine Metabolite, Urine Negative NEGATIVE [facility] Work Phone: Interpretation and review of laboratory results Abnormal [facility] Work Phone: MDMA, Urine NOT REPORTED NEGATIVE [facility] Work Phone: Methadone Screen, Urine Negative NEGATIVE [facility] Work Phone: Methamphetamine, Urine Negative NEGATIVE [facility] Work Phone: Opiates, Urine Negative NEGATIVE [facility] Work Phone: Oxycodone Screen, Ur Negative NEGATIVE [facility] Work Phone: Phencyclidine, Urine Negative NEGATIVE [facility] Work Phone: Propoxyphene, Urine Negative NEGATIVE [facility] Work Phone: Test Information NOT REPORTED [facility] Work Phone: Tricyclic Antidepressants, Urine Negative NEGATIVE [facility] Work Phone: Comment on above: Drug screen results are to be used for medical purposes only. All positive results are unconfirmed. Testing for employment or legal uses should be sent to a reference laboratory for confirmation. [employer] Phone: Acetaminophenon 05-15-2021 Acetaminophen [Mass/Vol] ug/mL Low 10-30 [facility] Comment on above: Performed By: #### D AU #### [facility] [address] [place] [address] Bleach Range Operator: Garrett Perez MD Acetaminophen levelOrdered B y: Blanco Andradein on 05-15-2021 Acetaminophen Level <5 Low 10 - 30 ug/mL [employer] [facility] Phone: Interpretation and review of laboratory results Abnormal [facility] Phone: [facility] Phone: CBC auto differentialOrdered By: Blanco Montalvo on 05-15-2021 Absolute Eos # 0.18 [employer] [facility] Phone: Absolute Immature Granulocyte 0.06 [employer] [facility] Phone: Absolute Lymph # 2.41 [employer] [facility] Phone: Absolute Tillman # 0.83 [employer] [facility] Phone: Basophils (Bld) [#/Vol] 0.07 10*3/uL [employer] [facility] Phone: Basophils/100 WBC (Bld) 1 % 0 - 2 % M [employer] Phone: Differential Type NOT REPORTED [employer] [facility] Phone: Eosinophils/100 WBC (Bld) 1 % 1 - 4 % [employer] [facility] Phone: Hematocrit (Bld) [Volume fraction] 45.1 % 36.3 - 47.1 % [employer] [facility] Phone: Hemoglobin.gastrointest inal spec 1 Ql (Stl) 15.0 g/dL 11.9 - 15.1 g/dL [employer] [facility] Phone: Immature granulocytes/100 WBC (Bld) 1 % High 0 [employer] [facility] Phone: Interpretation and review of laboratory results Abnormal [employer] [facility] Phone: Lymphocytes/100 WBC (Bld) 18 % Low 24 - 43 % [employer] [facility] Phone: MCH (RBC) [Entitic mass] 28.4 pg 25.2 - 33.5 pg [employer] [facility] Phone: MCHC (RBC) [Mass/Vol] 33.3 g/dL 28.4 - 34.8 g/dL [employer] [facility] Phone: MCV (RBC) [Entitic vol] 85.4 fL 82.6 - 102.9 fL [employer] [facility] Phone: Monocytes/100 WBC (Bld) 6 % 3 - 12 % M [employer] Phone: NRBC Automated 0.0 0.0 per 100 WBC [employer] [facility] Phone: Platelet distribution width (Bld) [Ratio] 13.0 % 11.8 - 14.4 % [employer] [facility] Phone: Platelet Estimate NOT REPORTED [employer] [facility] Phone: Platelet mean volume (Bld) [Entitic vol] 8.3 fL 8.1 - 13.5 fL [employer] [facility] Phone: Platelets (Bld) [#/Vol] 301 10*3/uL [employer] [facility] Phone: RBC (Bld) [#/Vol] 5.28 10*6/uL High 3.95 - 5.1 1 m/uL [employer] [facility] Phone: RBC (Bld) [#/Vol] NOT REPORTED [employer] [facility] Phone: Segmented neutrophils/100 WBC (Bld) 73 % High 36 - 65 % [employer] [facility] Phone: Segs Absolute 9.71 High [facility] Work Phone: WBC (Bld) [#/Vol] 13.3 10*3/uL High [facility] Work Phone: WBC (Bld) [#/Vol] NOT REPORTED [facility] [employer] Phone: [facility] [employer] Phone: CBC with Diffon 05-15-2021 Abs. Basophil 0.07 k/uL Normal 0.00-0.20 [facility] Comment on above: Performed By: #### C DP, SALI, CP, HCG #### [address] [place] [id number] Bleach Range Operator: Garrett Perez MD Abs.Imm.Granulocyte 0.06 k/uL Normal 0.00-0.30 [facility] Comment on above: Performed By: #### C DP, SALI, CP, HCG #### [facility] [address] [place], [place] [address] Bleach Range Operator: Garrett Perez MD Abs.Neutrophil (Seg) 9.71 k/uL High 1.50-8.10 [facility] Comment on above: Performed By: #### C DP, SALI, CP, HCG #### [address] [place], [facility] Bleach Range Operator: Garrett Perez MD Basophils/100 WBC (Bld) 1 % Normal 0-2 [facility] Comment on above: Performed By: #### C DP, SALI, CP, HCG #### [facility] [address] [place], [place] [address] Bleach Range Operator: Garrett Perez MD Eosinophils (Bld) [#/Vol] 0.18 10*3/uL Normal 0.00-0.44 [facility] Comment on above: Performed By: #### C DP, SALI, CP, HCG #### [facility] [address] [place] [address] [place] [place] [id number] Bleach Range Operator: Garrett Perez MD Eosinophils/100 WBC (Bld) 1 % Normal 1-4 [facility] Comment on above: Performed By: #### C DP, SALI, CP, HCG #### [address] [place] [phone] Ble[employer] Range Operator: Garrett Perez MD Erythrocyte distribution width (RBC) [Ratio] 13.0 % Normal 11.8-14.4 [facility] Comment on above: Performed By: #### C DP, SALI, CP, HCG #### [address] [place] [address] Bleach Range Operator: Garrett Perez MD Hematocrit (Bld) [Volume fraction] 45.1 % Normal 36.3-47.1 [facility] Comment on above: Performed By: #### C DP, SALI, CP, HCG #### [address] [place] [address] Bleach Range Operator: Garrett Perez MD Hemoglobin (Bld) [Mass/Vol] 15.0 g/dL Normal 11.9-15.1 [facility] Comment on above: Performed By: #### C DP, SALI, CP, HCG #### [address] [place] [phone] Bleach Range Operator: Garrett Perez MD Immature granulocytes/100 WBC (Bld) 1 % High 0 [facility] Comment on above: Performed By: #### C DP, SALI, CP, HCG #### [address] [place] [phone] [employer] Range Operator: Garrett Perez MD Lymphocytes (Bld) [#/Vol] 2.41 10*3/uL Normal 1.10-3.70 [facility] Comment on above: Performed By: #### C DP, SALI, CP, HCG #### [address] [place] [address] Bleach Range Operator: Garrett Perez MD Lymphocytes/100 WBC (Bld) 18 % Low 24-43 [facility] Comment on above: Performed By: #### C DP, SALI, CP, HCG #### [facility] [address] [place] [phone] Bleach Range Operator: Garrett Perez MD MCH (RBC) [Entitic mass] 28.4 pg Normal 25.2-33.5 [facility] Comment on above: Performed By: #### C DP, SALI, CP, HCG #### [address] [place] [address] Bleach Range Operator: Garrett Perez MD MCHC (RBC) [Mass/Vol] 33.3 g/dL Normal 28.4-34.8 [facility] Comment on above: Performed By: #### C DP, SALI, CP, HCG #### [address] [place] [address] Bleach Range Operator: Garrett Perez MD MCV (RBC) [Entitic vol] 85.4 fL Normal 82.6-102.9 [facility] Comment on above: Performed By: #### C DP, SALI, CP, HCG #### [address] [place] [address] Bleach Range Operator: Garrett Perez MD Monocytes (Bld) [#/Vol] 0.83 10*3/uL Normal 0.10-1.20 [facility] Comment on above: Performed By: #### C DP, SALI, CP, HCG #### [address] [place] [address] Bleach Range Operator: Garrett Perez MD Monocytes/100 WBC (Bld) 6 % Normal 3-12 M [facility] Comment on above: Performed By: #### C DP, SALI, CP, HCG #### [address] [place] [address] Bleach Range Operator: Garrett Perez MD Neutrophil (Seg) 73 % High 36-65 [facility] Comment on above: Performed By: #### C DP, SALI, CP, HCG #### [facility] [address] [place], [place] [phone] Bleach Range Operator: Garrett Perez MD NRBC Automated 0.0 per 100 WBC Normal 0.0 [facility] Comment on above: Performed By: #### C DP, SALI, CP, HCG #### [facility] [address] [place] [address] Bleach Range Operator: Garrett Perez MD Platelet mean volume (Bld) [Entitic vol] 8.3 fL Normal 8.1-13.5 [facility] Comment on above: Performed By: #### C DPMICHAEL, CP, HCG #### [facility] [address] [place] [address] Bleach Range Operator: Garrett Perez MD Platelets (Bld) [#/Vol] 301 10*3/uL Normal 138-453 [facility] Comment on above: Performed By: #### C DPMICHAEL, CP, HCG #### [address] [place], [place] 6754383 Bleach Range Operator: Garrett Perez MD RBC (Bld) [#/Vol] 5.28 10*6/uL High 3.95-5.11 [facility] Comment on above: Performed By: #### C DP, SALI, CP, HCG #### [facility] [address] [place], [place] [id number] Bleach Range Operator: Garrett Perez MD WBC (Bld) [#/Vol] 13.3 10*3/uL High 3.5-11.3 [facility] Comment on above: Performed By: #### C DP, SALI, CP, HCG #### [address] [place] [address] Bleach Range Operator: Garrett Perez MD Auto Diff Performed NOT REPORTED Normal [facility] Comment on above: Performed By: #### C DP, SALI, CP, HCG #### [facility] [address] [place] [address] [place] [address] Bleach Range Operator: Garrett Perez MD Platelet Estimate NOT REPORTED Normal [facility] Comment on above: Performed By: #### C DP, SALI, CP, HCG #### [facility] [address] [place] [address] [place] [address] Bleach Range Operator: Garrett Perez MD RBC morphology finding Nom (Bld) NOT REPORTED Normal [facility] Comment on above: Performed By: #### C DP, SALI, CP, HCG #### [address] [place] [address] Bleach Range Operator: Garrett Perez MD WBC Morphology NOT REPORTED Normal [facility] Comment on above: Performed By: #### C DP, SALI, CP, HCG #### [facility] [address] [place] [address] [place] [address] Bleach Range Operator: Garrett Perez MD COVID-19, RapidOrdered By: Nicolle Montalvo on 05-15-2021 SARS-CoV-2 (COVID-19) RNA MORENA+probe Ql (Unsp spec) Not detected Not Detected [facility] Work Phone: Comment on above: Rapid [...] management decisions. Fact sheet for Healthcare Providers: https://www.fda.gov/media/599295/download Fact sheet for Patients: https://www.fda.gov/media/479263/download Methodology: Isothermal Nucleic Acid Amplification Specimen Description .NASOPHARYNGEAL SWAB [facility] Work Phone: [facility] Work Phone: Comp Metabolic Profon 2020 (cont.) Normal [facility] Comment on above: Result Comment: Aver age GFR for 20-29 years old: 116 mL/min/1.73sq m Chronic Kidney Disease: <60 mL/min/1.73sq m Kidney failure: <15 mL/min/1.73sq m eGFR calculated using average adult body mass. Additional eGFR calculator available at: http://www.[employer]: [employer]/multiple_crcl_2011.htm Performed By: #### C DP, SALI, CP, HCG #### [facility] [address] [place] [address] Bleach Range Operator: Garrett Perez MD Albumin [Mass/Vol] 4.4 g/dL Normal 3.5-5.2 [facility] Comment on above: Performed By: #### C DP, SALI, CP, HCG #### [facility] [address] [place] [address] Bleach Range Operator: Garrett Perez MD Albumin/Glob Ratio 1.3 Normal 1.0-2.5 [facility] Comment on above: Performed By: #### C DP, SALI, CP, HCG #### [facility] [address] [place] [address] Bleach Range Operator: Garrett Perez MD Alkaline Phos 82 U/L Normal 35-104 [facility] Comment on above: Performed By: #### C DP, SALI, CP, HCG #### [facility] [address] [place] [address] Bleach Range Operator: Garrett Perez MD ALT [Catalytic activity/Vol] 40 U/L High 5-33 [facility] Comment on above: Performed By: #### C DP, SALI, CP, HCG #### [facility] [address] [place], [place] [address]83 Bleach Range Operator: Garrett Perez MD Anion gap [Moles/Vol] 13 mmol/L Normal 9-17 [facility] Comment on above: Performed By: #### C DP, SALI, CP, HCG #### [facility] [address] [place] [address] [place] [place], [place] [phone] Bleach Range Operator: Garrett Perez MD AST [Catalytic activity/Vol] 26 U/L Normal <32 [facility] Comment on above: Performed By: #### C DP, SALI, CP, HCG #### [facility] [address] [place] [address] [place], [place] [phone] Bleach Range Operator: Garrett Perez MD Bilirubin [Mass/Vol] 0.39 mg/dL Normal 0.3-1.2 [facility] Comment on above: Performed By: #### C DP, SALI, CP, HCG #### [facility] [address] [place] [address] [place] [place], [place] [phone] Bleach Range Operator: Garrett Perez MD BUN/CRE Ratio 12 Normal 9-20 [facility] Comment on above: Performed By: #### C DP, SALI, CP, HCG #### [facility] [address] [place], [place] 442[address]83 Bleach Range Operator: Garrett Perez MD Calcium [Mass/Vol] 9.9 mg/dL Normal 8.6-10.4 [facility] Comment on above: Performed By: #### C DP, SALI, CP, HCG #### [facility] [address] [place] [address] [place], [place] [phone] Bleach Range Operator: Garrett Perez MD Chloride [Moles/Vol] 99 mmol/L Normal 98-107 [facility] Comment on above: Performed By: #### C DP, SALI, CP, HCG #### [facility] [address] [place] [address] Bleach Range Operator: Garrett Perez MD CO2 [Moles/Vol] 25 mmol/L Normal 20-31 [facility] Comment on above: Performed By: #### C DP, SALI, CP, HCG #### [facility] [address] [place], [facility]83 Bleach Range Operator: Garrett Perez MD Creatinine [Mass/Vol] 0.81 mg/dL Normal 0.50-0.90 [facility] Comment on above: Performed By: #### C DP, SALI, CP, HCG #### [address] [place], [facility]83 Bleach Range Operator: Garrett Perez MD GFR, Amer >60 Normal >60 [facility] Comment on above: Performed By: #### C DP, SALI, CP, HCG #### [address] [place], [facility]83 Bleach Range Operator: Garrett Perez MD GFR,non Amer >60 Normal >60 [facility] Comment on above: Performed By: #### C DP, SALI, CP, HCG #### [address] [place], [facility]83 Bleach Range Operator: Garrett Perez MD Glucose [Mass/Vol] 86 mg/dL Normal 70-99 [facility] Comment on above: Performed By: #### C DP, SALI, CP, HCG #### [address] [place], [facility]83 Bleach Range Operator: Garrett Perez MD Potassium [Moles/Vol] 3.7 mmol/L Normal 3.7-5.3 [facility] Comment on above: Performed By: #### C DP, SALI, CP, HCG #### [facility] [address] [place] [address] Bleach Range Operator: Garrett Perez MD Protein [Mass/Vol] 7.8 g/dL Normal 6.4-8.3 [facility] Comment on above: Performed By: #### C DP, SALI, CP, HCG #### [facility] [address] [place] [address] Bleach Range Operator: Garrett Perez MD Sodium [Moles/Vol] 137 mmol/L Normal 135-144 [facility] Comment on above: Performed By: #### C DP, SALI, CP, HCG #### [address] [place] [address] Bleach Range Operator: Garertt Perez MD Staging: Normal [facility] Comment on above: Result Comment: Stag e 1: Some kidney damage normal GFR Stage 2: Mild kidney damage GFR 60-89 Stage 3: Moderate kidney damage GFR 30-59 Stage 4: Severe kidney damage GFR 15-29 Stage 5: Severe kidney damage GFR <15 ESRD - chronic treatment by dialysis or transplant Performed By: #### C DP, SALI, CP, HCG #### [address] [place] [address] Bleach Range Operator: Garrett Perez MD Urea nitrogen [Mass/Vol] 10 mg/dL Normal 6-20 [facility] Comment on above: Performed By: #### C DP, SALI, CP, HCG #### [address] [place] [address] Bleach Range Operator: Garrett Perez MD Comprehensive Metabolic Pane lOrdered By: Blanco Montalvo on 05-15-2021 Albumin [Mass/Vol] 4.4 g/dL 3.5 - 5.2 g/dL [facility] Work Phone: Albumin/Globulin [Mass ratio] 1.3 {ratio} [facility] Work Phone: ALP (Bld) [Catalytic activity/Vol] 82 U/L 35 - 104 U/L [employer] Phone: ALT [Catalytic activity/Vol] 40 U/L High 5 - 33 U/L [employer] [facility] Phone: Anion gap [Moles/Vol] 13 mmol/L 9 - 17 mmol/L [employer] Phone: AST [Catalytic activity/Vol] 26 U/L <32 [employer] [facility] Phone: Bilirubin [Mass/Vol] 0.39 mg/dL 0.3 - 1 .2 mg/dL [employer] Phone: Calcium [Mass/Vol] 9.9 mg/dL 8.6 - 10. 4 mg/dL [employer] Phone: Chloride [Moles/Vol] 99 mmol/L 98 - 10 7 mmol/L [employer] [facility] Phone: CO2 [Moles/Vol] 25 mmol/L 20 - 31 mmol/L [employer] [facility] Phone: Creatinine [Mass/Vol] 0.81 mg/dL 0.50 - 0.90 mg/dL [employer] Phone: Free PSA/Total PSA [Mass fraction] 7.8 g/dL 6.4 - 8.3 g/dL [employer] [facility] Phone: GFR >60 >60 mL/min [employer] Phone: GFR Non- >60 >60 mL/min [employer] [facility] Phone: Glucose [Mass/Vol] 86 mg/dL 70 - 99 mg/dL [employer] [facility] Phone: Potassium [Moles/Vol] 3.7 mmol/L 3.7 - 5.3 mmol/L [employer] [facility] Phone: Sodium [Moles/Vol] 137 mmol/L 135 - 144 mmol/L [employer] [facility] Phone: Urea nitrogen (BldV) [Mass/Vol] 10 mg/dL 6 - 20 mg/dL [facility] Work Phone: Urea nitrogen/Creatinine (Bld) [Mass ratio] 12 [facility] Work Phone: Drug Scr, Abuse, Uron 2020 Amphetamine(s),Ur Negative Normal [facility] Comment on above: Performed By: #### C OVRB #### [facility] [address] [place], [place] [phone] Ble[employer] Range Operator: Garrett Perez MD Barbiturate(s),Ur Negative Normal NEG [facility] Comment on above: Performed By: #### C OVRB #### [facility] [address] [place], [place] 187[address]83 Bleach Range Operator: Garrett Perez MD Benzodiazepine(s) Negative Normal [facility] Comment on above: Performed By: #### C OVRB #### [facility] [address] [place] [address] Bleach Range Operator: Garrett Perez MD Buprenorphrine, Ur Negative Normal [facility] Comment on above: Performed By: #### C OVRB #### [facility] [address] [place] [address] [place] [address] Bleach Range Operator: Garrett Perez MD Cannabinoid(s),Ur Positive Abnormal NEG [facility] Comment on above: Performed By: #### C OVRB #### [facility] [address] [place] [address] Bleach Range Operator: Garrett Perez MD Cocaine Metabolite Negative Normal [facility] Comment on above: Performed By: #### C OVRB #### [facility] [address] [place], [place] [address]83 Bleach Range Operator: Garrett Perez MD Methadone Ql (U) Negative Normal [facility] Comment on above: Performed By: #### C OVRB #### [facility] [address] [place], [place] [address]83 Bleach Range Operator: Garrett Perez MD Methamphetamine, Ur Negative Normal NEG [facility] Comment on above: Performed By: #### C OVRB #### [facility] [address] [place], [place] [id number] Bleach Range Operator: Garrett Perez MD Opiate(s), Ur Negative Normal NEG [facility] Comment on above: Performed By: #### C OVRB #### [facility] [address] [place], [place] 3208183 Bleach Range Operator: Garrett Perez MD Oxycodone, Urine Negative Normal [facility] Comment on above: Performed By: #### C OVRB #### [facility] [address] [place], [place] 8855483 Bleach Range Operator: Garrett Perez MD Phencyclidine, Ur Negative Normal NEG [facility] Comment on above: Performed By: #### C OVRB #### [facility] [address] [place] [address] [place], [place] [id number] Bleach Range Operator: Garrett Perez MD Propoxyphene,Urine Negative Normal [facility] Comment on above: Performed By: #### C OVRB #### [facility] [address] [place], [place] [phone] Bleach Range Operator: Garrett Perez MD Tricyclic antidepressants Screen Ql (U) Negative [facility] Comment on above: Result Comment: Drug screen results are to be used for medical purposes only. All positive results are unconfirmed. Testing for employment or legal uses should be sent to a reference laboratory for confirmation. Performed By: #### C OVRB #### [facility] [address] [place], [place] 912[address]83 Ble[employer] Range Operator: Garrett Perez MD Interpretive Info NOT REPORTED Normal [facility] Comment on above: Performed By: #### C OVRB #### [facility] [address] [place] [address] Bleach Range Operator: Garrett Perez MD MDMA, Urine NOT REPORTED Normal NEG [facility] Comment on above: Performed By: #### C OVRB #### [facility] [address] [place] [address] [place] [address] Bleach Range Operator: Garrett Perez MD EthanolOrdered By: Blanco banks on 05-15-2021 Ethanol [Mass/Vol] mg/dL <10 mg/dL [employer] [facility] Phone: Ethanol percent <0.010 <0.010 % [employer] [facility] Phone: [employer] [facility] Phone: Ethanol Alcoholon 05-15-2021 Ethanol [Mass/Vol] mg/dL Normal <10 [facility] Comment on above: Performed By: #### D AU #### [facility] [address] [place] [address] [place] [address] Bleach Range Operator: Garrett Perez MD Ethanol percent <0.010 Normal <0.010 [facility] Comment on above: Performed By: #### D AU #### [address] [place] [address] Bleach Range Operator: Garrett Perez MD HCG Qualitative, SerumOrdere d By: Blanco Montalvo on 05-15-2021 hCG Qual Negative NEGATIVE [facility] Phone: Comment on above: Specimens with hCG l evels near the threshold of the test (25 mIU/mL) may give a negative or indeterminate result. In such cases, another test should be performed with a new specimen in 48-72 hours. If early is suspected clinically in this setting, correlation with quantitative serum b-hCG level is suggested. [employer] has confirmed the use of plasma for this test. This has not been cleared or approved by the U.S. Food and Drug Administration. The FDA has determined that such clearance is not necessary. [employer] [facility] Phone: HCG Screen, Bloodon 05-15-20 HCG Screen, Blood Negative Normal NEG [facility] Comment on above: Result Comment: Spec imens with hCG levels near the threshold of the test (25 mIU/mL) may give a negative or indeterminate result. In such cases, another test should be performed with a new specimen in 48-72 hours. If early is suspected clinically in this setting, correlation with quantitative serum b-hCG level is suggested. [employer] has confirmed the use of plasma for this test. This has not been cleared or approved by the U.S. Food and Drug Administration. The FDA has determined that such clearance is not necessary. Performed By: #### C DP, SALI, CP, HCG #### [facility] [address] [place] [address] Bleach Range Operator: Garrett Perez MD Laboratory - Chemistry and C hemistry - challengeOrdered By: Blanco Montalvo on 05-15-2021 GFR/1.73 sq M.predicted MDRD (S/P/Bld) [Vol rate/Area] [employer] Phone: Comment on above: Average GFR for 20-2 9 years old: 116 mL/min/1.73sq m Chronic Kidney Disease: <60 mL/min/1.73sq m Kidney failure: <15 mL/min/1.73sq m eGFR calculated using average adult body mass. Additional eGFR calculator available at: http://www.[employer]at[employer].Edamam/multiple_crcl_2012.htm Stage 1: Some kidney damage normal GFR Stage 2: Mild kidney damage GFR 60-89 Stage 3: Moderate kidney damage GFR 30-59 Stage 4: Severe kidney damage GFR 15-29 Stage 5: Severe kidney damage GFR <15 ESRD - chronic treatment by dialysis or transplant Microscopic UrinalysisOrdere d By: Blanco Montalvo on 05-15-2021 - [employer] [facility] Phone: Amorphous, UA NOT REPORTED None [employer] [facility] Phone: Bacteria, UA TRACE Abnormal None [employer] [facility] Phone: Casts UA NOT REPORTED /LPF [facility] Work Phone: Crystals, UA NOT REPORTED None /HPF [facility] Work Phone: Epithelial Cells UA 2 TO 5 [facility] Work Phone: Interpretation and review of laboratory results Abnormal [employer] Work Phone: Mucus, UA TRACE Abnormal None [employer] Work Phone: Other Observations UA NOT REPORTED NOT REQ. M [facility] [employer] Work Phone: RBC, UA 0 TO 2 [facility] Work Phone: Renal Epithelial, UA NOT REPORTED 0 /HPF [facility] [employer] Work Phone: Trichomonas, UA NOT REPORTED None [employer] Phone: WBC, UA 0 TO 2 [facility] Work Phone: Yeast, UA NOT REPORTED None [employer] [facility] Phone: [facility] Work Phone: No Panel InformationOrdered By: Blanco Montalvo on 05-15-2021 Interpretation and review of laboratory results Abnormal [employer] Phone: [employer] Phone: [id number] 05-15-2021 SARS-CoV-2 (COVID-19) RNA MORENA+probe Ql (Unsp spec) Not detected [facility] Comment on above: Result Comment: Rapid [...] management decisions. Fact sheet for Healthcare Providers: https://www.fda.gov/media/340099/download Fact sheet for Patients: https://www.fda.gov/media/712383/download Methodology: Isothermal Nucleic Acid Amplification Performed By: #### C OVRB #### [facility] [address] [place] [address] [employer] Range Operator: Garrett Perez MD Salicylateon 05-15-2021 Salicylate <1 Low 3-10 [facility] Comment on above: Performed By: #### C DP, MICHAEL, CP, HCG #### [address] [place] [address] Bleach Range Operator: Garrett Perez MD SalicylateOrdered By: Blanco hwang on 05-15-2021 Salicylate Lvl <1 Low 3 - 10 mg/dL [facility] Work Phone: UA w/Reflex Cultureon 2020 Bilirubin, SemiQt,Ur Negative Normal NEG [facility] Comment on above: Performed By: #### C OVRB #### [facility] [address] [place] [address] [place] [address] Bleach Range Operator: Garrett Perez MD Blood, Urine Negative Normal NEG [facility] Comment on above: Performed By: #### C OVRB #### [facility] [address] [place] [address] Bleach Range Operator: Garrett Perez MD Clarity (U) CLEAR Normal CLEAR [facility] Comment on above: Performed By: #### C OVRB #### [facility] [address] [place] [address] Bleach Range Operator: Garrett Perez MD Color (U) YELLOW Normal YEL [facility] Comment on above: Performed By: #### C OVRB #### [facility] [address] [place], [place] [id number] Bleach Range Operator: Garrett Perez MD Glucose Ql (U) Negative Normal NEG [facility] Comment on above: Performed By: #### C OVRB #### [facility] [address] [place], [place] 9[address]83 Bleach Range Operator: Garrett Perez MD Ketones Ql (U) Negative Normal NEG [facility] Comment on above: Performed By: #### C OVRB #### [facility] [address] [place], [place] [id number] Bleach Range Operator: Garrett Perez MD Leukocyte esterase Test strip Ql (U) Negative Normal [facility] Comment on above: Performed By: #### C OVRB #### [facility] [address] [place] [address] [place] [place], [place] 8124083 Bleach Range Operator: Garrett Perez MD Nitrite,Ur Negative Normal [facility] Comment on above: Performed By: #### C OVRB #### [facility] [address] [place] [address] [place] [place], [place] 7087583 Bleach Range Operator: Garrett Perez MD PH,Ur 8.5 Normal 5.0-9.0 [facility] Comment on above: Performed By: #### C OVRB #### [facility] [address] [place] [address] [place] [place], [place] 3624983 Bleach Range Operator: Garrett Perez MD Protein Ql (U) Negative [facility] Comment on above: Performed By: #### C OVRB #### [facility] [address] [place], [place] 785[address]83 Bleach Range Operator: Garrett Perez MD Spec. [place],Ur 1.015 Normal 1.010-1.020 [facility] Comment on above: Performed By: #### C OVRB #### [facility] [address] [place] [address] Bleach Range Operator: Garrett Perez MD Urobilinogen,Ur Normal Normal NORM [facility] Comment on above: Performed By: #### C OVRB #### [facility] [address] [place] [address] Bleach Range Operator: Garrett Perez MD Comment NOT REPORTED Normal [facility] Comment on above: Performed By: #### C OVRB #### [facility] [address] [place] [address] Bleach Range Operator: Garrett Perez MD Urinalysis Reflex to Culture Ordered By: Blanco Montalvo on 05-15-2021 Bilirubin Urine Negative NEGATIVE [facility] Phone: Color, UA YELLOW YELLOW [facility] Phone: Glucose, Ur Negative NEGATIVE [facility] Phone: Ketones Ql (U) Negative NEGATIVE [facility] Phone: Leukocyte esterase Test strip Ql (U) Negative NEGATIVE [facility] Phone: Nitrite, Urine Negative NEGATIVE [facility] Phone: pH, UA 8.5 [facility] [employer] Phone: Protein, UA Negative NEGATIVE [facility] Phone: Specific [place], UA 1.015 [facility] Work Phone: Turbidity UA CLEAR CLEAR [facility] Work Phone: Urinalysis Comments NOT REPORTED [employer] Work Phone: Urine Hgb Negative NEGATIVE [facility] [employer] Phone: Urobilinogen, Urine Normal Normal [facility] [employer] Phone: [facility] [employer] Work Phone: Urinalysis,Microon 1 ----- Normal [facility] Comment on above: Performed By: #### C OVRB #### [facility] [address] [place], [place] 7292283 Bleach Range Operator: Garrett Perez MD Bacteria TRACE Abnormal [facility] Comment on above: Performed By: #### C OVRB #### [facility] [address] [place], [place] [id number] Bleach Range Operator: Garrett Perez MD Epithelial cells LM Ql (Urine sed) 2 TO 5 Normal 0-25 [facility] Comment on above: Performed By: #### C OVRB #### [facility] [address] [place] [address] Bleach Range Operator: Garrett Perez MD Mucus Strands TRACE Abnormal [facility] Comment on above: Performed By: #### C OVRB #### [facility] [address] [place] [address] [place] [address]83 Bleach Range Operator: Garrett Perez MD Urine RBC's 0 TO 2 Normal 0-2 [facility] Comment on above: Performed By: #### C OVRB #### [address] [place] [address] Bleach Range Operator: Garrett Perez MD Urine WBC's 0 TO 2 Normal 0-5 [facility] Comment on above: Performed By: #### C OVRB #### [facility] [address] [place] [address] Bleach Range Operator: Garrett Perez MD Amorphous sediment LM Ql (Urine sed) NOT REPORTED Normal [facility] Comment on above: Performed By: #### C OVRB #### [address] [place] [address] Bleach Range Operator: Garrett Perez MD Casts NOT REPORTED Normal [facility] Comment on above: Performed By: #### C OVRB #### [facility] [address] [place] [address] [place], [place] 2653283 Bleach Range Operator: Garrett Perez MD Crystals LM Nom (Urine sed) NOT REPORTED Normal [facility] Comment on above: Performed By: #### C OVRB #### [facility] [address] [place], [place] 0549283 Bleach Range Operator: Garrett Perze MD Epithelial, Renal NOT REPORTED Normal 0 [facility] Comment on above: Performed By: #### C OVRB #### [facility] [address] [place], [place] 0869783 Bleach Range Operator: Garrett Perez MD Other Observations NOT REPORTED Normal NREQ [facility] Comment on above: Performed By: #### C OVRB #### [facility] [address] [place], [place] 743[address]83 Bleach Range Operator: Garrett Perez MD Trichomonas NOT REPORTED Normal [facility] Comment on above: Performed By: #### C OVRB #### [facility] [address] [place], [place] 6739183 Bleach Range Operator: Garrett Perez MD Yeast NOT REPORTED Normal [facility] Comment on above: Performed By: #### C OVRB #### [facility] [address] [place], [place] 68[address]83 Bleach Range Operator: Garrett Perez MD Urine Drug ScreenOrdered By: Blanco Montalvo on 05-15-2021 Amphetamine Screen, Ur Negative NEGATIVE [facility] [employer] Work Phone: Barbiturate Screen, Ur Negative NEGATIVE [facility] [employer] Work Phone: Benzodiazepine Screen, Urine Negative NEGATIVE [facility] Phone: Buprenorphine Urine Negative NEGATIVE [facility] Phone: Cannabinoid Scrn, Ur Positive Abnormal NEGATIVE [facility] [employer] [facility] Phone: Cocaine Metabolite, Urine Negative NEGATIVE [facility] Phone: Interpretation and review of laboratory results Abnormal [employer] Work Phone: MDMA, Urine NOT REPORTED NEGATIVE [facility] Work Phone: Methadone Screen, Urine Negative NEGATIVE [facility] [employer] Work Phone: Methamphetamine, Urine Negative NEGATIVE [employer] Work Phone: Opiates, Urine Negative NEGATIVE [facility] [employer] Work Phone: Oxycodone Screen, Ur Negative NEGATIVE [facility] [employer] Work Phone: Phencyclidine, Urine Negative NEGATIVE [facility] [employer] Work Phone: Propoxyphene, Urine Negative NEGATIVE [facility] [employer] Work Phone: Test Information NOT REPORTED [facility] Phone: Tricyclic Antidepressants, Urine Negative NEGATIVE [facility] [employer] Work Phone: Comment on above: Drug screen results are to be used for medical purposes only. All positive results are unconfirmed. Testing for employment or legal uses should be sent to a reference laboratory for confirmation. [employer] Phone: Laboratory - Microbiology an d Antimicrobial susceptibilityOrdered By: Denny Lomeli on 04-23-2021 SARS-CoV-2 (COVID-19) RNA MORENA+probe Ql (Resp) Not detected (Not Detected ) [facility] Work Phone: Comment on above: Note: This [...] of in vitro diagnostic tests for detection [id number] virus and/or diagnosis of COVID-19 infectionunder section [...] RNA MORENA+probe Ql (Unsp spec) Performed [facility] Work Phone: Vitamin Don 04-14-2021 Vitamin D 14.7 ng/mL Low 30.0-100.0 [facility] Comment on above: Result Comment: (<20 ng/mL) Deficiency This assay accurately quantifies the sum of vitamin D3, 25-Hydroxy and vitamin D2, 25-Hyroxy. Performed By: #### V ITD #### [facility] [address] [place] [address] CBC With Platelet No Differe ntialon 04-11-2021 Erythrocyte distribution width (RBC) [Ratio] 13.6 % Normal 11.5-14.5 [facility] Comment on above: Performed By: #### C BCND #### [facility] [address] [place] [address] Hematocrit (Bld) [Volume fraction] 43.5 % Normal 37.0-47.0 [facility] Comment on above: Performed By: #### C BCND #### [facility] [address] [place] [address] Hemoglobin (Bld) [Mass/Vol] 14.6 g/dL Normal 12.0-16.0 [facility] Comment on above: Performed By: #### C BCND #### [facility] [address] [place] [address] MCH (RBC) [Entitic mass] 28.6 pg Normal 27.0-31.3 [facility] Comment on above: Performed By: #### C BCND #### [facility] [address] [place] [address] MCHC 33.5 % Normal 33.0-37.0 [facility] Comment on above: Performed By: #### C BCND #### [facility] [address] [place] [address] MCV (RBC) [Entitic vol] 85.4 fL Normal 82.0-100.0 M [facility] Comment on above: Performed By: #### C BCND #### [facility] [address] [place] [address] Platelets (Bld) [#/Vol] 284 10*3/uL Normal 130-400 [facility] Comment on above: Performed By: #### C BCND #### [facility] [address] [place] [address] RBC (Bld) [#/Vol] 5.10 10*6/uL Normal 4.20-5.40 [facility] Comment on above: Performed By: #### C BCND #### [facility] [address] [place] [address] WBC (Bld) [#/Vol] 11.1 10*3/uL Critically high 4.8-10.8 [facility] Comment on above: Performed By: #### C BCND #### [facility] [address] [place] [address] Folateon 04-11-2021 Folate 15.3 ng/mL Normal 7.3-26.1 [facility] Comment on above: Result Comment: As o f 16, the methodology has changed. Results from this methodology should not be compared with results from previous methodology. Performed By: #### F OLAT #### [facility] [address] [place] [address] Lipid Panelon 04-11-2021 Cholesterol [Mass/Vol] 127 mg/dL Normal 0-199 [facility] Comment on above: Result Comment: ATP III Cholesterol classification is Desirable. Performed By: #### L IPID #### [facility] [address] [place] [address] Cholesterol in HDL [Mass/Vol] 32 mg/dL Low 40-59 [facility] Comment on above: Result Comment: [...] CHD Performed By: #### L IPID #### [facility] [address] [place] [address] Cholesterol in LDL [Mass/Vol] 75 mg/dL Normal 0-129 [facility] Comment on above: Result Comment: ATP III LDL Classification is Optimal. Performed By: #### L IPID #### [facility] [address] [place] [address] Triglyceride [Mass/Vol] 100 mg/dL Normal 0-150 M [facility] Comment on above: Result Comment: ATP III Triglycerides Classification is Normal. Performed By: #### L IPID #### [facility] [address] [place] [address] TSH w/out Reflexon TSH w/out Reflex 1.020 uIU/mL Normal 0.440-3.86 [facility] Comment on above: Performed By: #### T SH #### [facility] [address] [place] [address] Vitamin B12on 04-11-2021 Cobalamin (Vitamin B12) [Mass/Vol] 1050 pg/mL Normal 232-1245 [facility] Comment on above: Performed By: #### B 12 #### [facility] [address] [place] [address] EKG 12 LeadOrdered By: Freddie Hussein on 04-10-2021 Atrial Rate 75 BPM [facility] [employer] Phone: P [place] 24 degrees [employer] Phone: P-R Interval 140 ms [employer] Phone: Q-T Interval 384 ms [employer] Phone: QRS Duration 90 ms [employer] Phone: QTc Calculation (Bazett) 414 ms [employer] Phone: R [place] 29 degrees [employer] Phone: T [place] 20 degrees [employer] Phone: Ventricular Rate 70 BPM [employer] Phone: Normal sinus rhythm with sinus arrhythmia Possible Anterior infarct , age undetermined Abnormal ECG No previous ECGs available Confirmed by FORREST MENDIOLA ([id number]) on 04/10/2021 12:40:27 AM [employer] [facility] Phone: [place], Mhpn Incoming E kg Results From [employer] - 04/10/2021 12:40 AM EDT Normal sinus rhythm with sinus arrhythmia Possible Anterior infarct , age undetermined Abnormal ECG No previous ECGs available Confirmed by FORREST MENDIOLA ([id number]) on 04/10/2021 12:40:27 AM [employer] [facility] Phone: [employer] Phone: Acetaminophenon 04-09-2021 Acetaminophen [Mass/Vol] ug/mL Low 10-30 [facility] Comment on above: Performed By: #### A LCB, ACET #### [facility] [address] [place] [address] Bleach Range Operator: Garrett Perez MD Acetaminophen LevelOrdered B y: Jm Hussein on 04-09-2021 Acetaminophen Level <5 Low 10 - 30 ug/mL [employer] Phone: Interpretation and review of laboratory results Abnormal [employer] Phone: [employer] Phone: CBC Auto DifferentialOrdered By: Jm Hussein on 04-09-2021 Absolute Eos # 0.07 [employer] Phone: Absolute Immature Granulocyte 0.03 [employer] Phone: Absolute Lymph # 2.20 [employer] Phone: Absolute Tillman # 0.76 [employer] Phone: Basophils (Bld) [#/Vol] 0.05 10*3/uL [employer] Phone: Basophils/100 WBC (Bld) 0 % 0 - 2 % [facility] Phone: Differential Type NOT REPORTED [employer] Phone: Eosinophils/100 WBC (Bld) 1 % 1 - 4 % [employer] Phone: Hematocrit (Bld) [Volume fraction] 45.2 % 36.3 - 47.1 % [employer] Phone: Hemoglobin.gastrointest inal spec 1 Ql (Stl) 15.0 g/dL 11.9 - 15.1 g/dL [employer] Phone: Immature granulocytes/100 WBC (Bld) 0 % 0 [employer] Phone: Interpretation and review of laboratory results Abnormal [employer] Phone: Lymphocytes/100 WBC (Bld) 18 % Low 24 - 43 % [employer] Phone: MCH (RBC) [Entitic mass] 28.6 pg 25.2 - 33.5 pg [employer] Phone: MCHC (RBC) [Mass/Vol] 33.2 g/dL 28.4 - 34.8 g/dL [employer] Phone: MCV (RBC) [Entitic vol] 86.3 fL 82.6 - 102.9 fL [employer] Phone: Monocytes/100 WBC (Bld) 6 % 3 - 12 % M [employer] Phone: NRBC Automated 0.0 0.0 per 100 WBC [employer] Phone: Platelet distribution width (Bld) [Ratio] 13.0 % 11.8 - 14.4 % [employer] Phone: Platelet Estimate NOT REPORTED [employer] Phone: Platelet mean volume (Bld) [Entitic vol] 9.1 fL 8.1 - 13.5 fL [employer] Phone: Platelets (Bld) [#/Vol] 296 10*3/uL [employer] Phone: RBC (Bld) [#/Vol] 5.24 10*6/uL High 3.95 - 5.1 1 m/uL [employer] Phone: RBC (Bld) [#/Vol] NOT REPORTED [employer] Phone: Segmented neutrophils/100 WBC (Bld) 75 % High 36 - 65 % [employer] Phone: Segs Absolute 9.07 High [employer] Phone: WBC (Bld) [#/Vol] 12.2 10*3/uL High [employer] Phone: WBC (Bld) [#/Vol] NOT REPORTED [employer] Phone: [employer] Phone: CBC with Diffon 04-09-2021 Abs. Basophil 0.05 k/uL Normal 0.00-0.20 [facility] Comment on above: Performed By: #### C OVRB #### [facility] [address] [place] [address] Bleach Range Operator: Garrett Perez MD Abs.Imm.Granulocyte 0.03 k/uL Normal 0.00-0.30 [facility] Comment on above: Performed By: #### C OVRB #### [facility] [address] [place], [place] [address] Bleach Range Operator: Garrett Perez MD Abs.Neutrophil (Seg) 9.07 k/uL High 1.50-8.10 [facility] Comment on above: Performed By: #### C OVRB #### [address] [place], [place] [address] Bleach Range Operator: Garrett Perez MD Basophils/100 WBC (Bld) 0 % Normal 0-2 M [facility] Comment on above: Performed By: #### C OVRB #### [address] [place] [address] Bleach Range Operator: Garrett Perez MD Eosinophils (Bld) [#/Vol] 0.07 10*3/uL Normal 0.00-0.44 [facility] Comment on above: Performed By: #### C OVRB #### [address] [place], [place] [address] Bleach Range Operator: Garrett Perez MD Eosinophils/100 WBC (Bld) 1 % Normal 1-4 [facility] Comment on above: Performed By: #### C OVRB #### [address] [place], [place] [address] Bleach Range Operator: Garrett Perez MD Erythrocyte distribution width (RBC) [Ratio] 13.0 % Normal 11.8-14.4 [facility] Comment on above: Performed By: #### C OVRB #### [address] [place] [address] Bleach Range Operator: Garrett Perez MD Hematocrit (Bld) [Volume fraction] 45.2 % Normal 36.3-47.1 [facility] Comment on above: Performed By: #### C OVRB #### [address] [place] 380[address]83 [employer] Range Operator: Garrett Perez MD Hemoglobin (Bld) [Mass/Vol] 15.0 g/dL Normal 11.9-15.1 [facility] Comment on above: Performed By: #### C OVRB #### [facility] [address] [place], [place] 00[address]83 Bleach Range Operator: Garrett Perez MD Immature granulocytes/100 WBC (Bld) 0 % Normal 0 [facility] Comment on above: Performed By: #### C OVRB #### [facility] [address] [place], [place] 3826[address] Bleach Range Operator: Garrett Perez MD Lymphocytes (Bld) [#/Vol] 2.20 10*3/uL Normal 1.10-3.70 [facility] Comment on above: Performed By: #### C OVRB #### [address] [place], [facility] [employer] Operator: Garrett Perez MD Lymphocytes/100 WBC (Bld) 18 % Low 24-43 [facility] Comment on above: Performed By: #### C OVRB #### [address] [place], [place] 1185683 [employer]ach Range Operator: Garrett Perez MD MCH (RBC) [Entitic mass] 28.6 pg Normal 25.2-33.5 [facility] Comment on above: Performed By: #### C OVRB #### [facility] [address] [place] [address] [place] [place] [address]40[address]83 [employer] Range Operator: Garrett Perez MD MCHC (RBC) [Mass/Vol] 33.2 g/dL Normal 28.4-34.8 [facility] Comment on above: Performed By: #### C OVRB #### [facility] [address] [place] [address] Bleach Range Operator: Garrett Perez MD MCV (RBC) [Entitic vol] 86.3 fL Normal 82.6-102.9 [facility] Comment on above: Performed By: #### C OVRB #### [facility] [address] [place] [address] [employer]ach Range Operator: Garrett Perez MD Monocytes (Bld) [#/Vol] 0.76 10*3/uL Normal 0.10-1.20 [facility] Comment on above: Performed By: #### C OVRB #### [facility] [address] [place], [place] 694[address]83 [employer] Range Operator: Garrett Perez MD Monocytes/100 WBC (Bld) 6 % Normal 3-12 [facility] Comment on above: Performed By: #### C OVRB #### [address] [place], [place] 1398483 [employer]ach Range Operator: Garrett Perez MD Neutrophil (Seg) 75 % High 36-65 [facility] Comment on above: Performed By: #### C OVRB #### [address] [place], [place] [address]891983 [employer] Range Operator: Garrett Perez MD NRBC Automated 0.0 per 100 WBC Normal 0.0 [facility] Comment on above: Performed By: #### C OVRB #### [address] [place], [facility] [employer] Operator: Garrett Perez MD Platelet mean volume (Bld) [Entitic vol] 9.1 fL Normal 8.1-13.5 [facility] Comment on above: Performed By: #### C OVRB #### [address] [place] [address] [employer] Range Operator: Garrett Perez MD Platelets (Bld) [#/Vol] 296 10*3/uL Normal 138-453 [facility] Comment on above: Performed By: #### C OVRB #### [facility] [address] [place] [address] [place] [place], [place] 6823583 [employer] Operator: Garrett Perez MD RBC (Bld) [#/Vol] 5.24 10*6/uL High 3.95-5.11 [facility] Comment on above: Performed By: #### C OVRB #### [address] [place], [place] 8128483 [employer] Range Operator: Garrett Perez MD WBC (Bld) [#/Vol] 12.2 10*3/uL High 3.5-11.3 [facility] Comment on above: Performed By: #### C OVRB #### [address] [place], [place] [address]83 [employer] Operator: Garrett Perez MD Auto Diff Performed NOT REPORTED Normal [facility] Comment on above: Performed By: #### C OVRB #### [address] [place], [facility]83 [employer] Operator: Garrett Perez MD Platelet Estimate NOT REPORTED Normal [facility] Comment on above: Performed By: #### C OVRB #### [address] [place], [facility]83 [employer] Operator: Garrett Perez MD RBC morphology finding Nom (d) NOT REPORTED Normal [facility] Comment on above: Performed By: #### C OVRB #### [address] [place], [facility]83 [employer] Operator: Garrett Perez MD WBC Morphology NOT REPORTED Normal [facility] Comment on above: Performed By: #### C OVRB #### [address] [place] [address] [employer] Operator: Garrett Perez MD COVID-19, RapidOrdered By: Cody Hussein on 04-09-2021 SARS-CoV-2 (COVID-19) RNA MORENA+probe Ql (Unsp spec) Not detected Not Detected [employer] Phone: Comment on above: Rapid NAAT: The [...] management decisions. Fact sheet for Healthcare Providers: https://www.fda.gov/media/572230/download Fact sheet for Patients: https://www.fda.gov/media/927731/download Methodology: Isothermal Nucleic Acid Amplification Specimen Description .NASOPHARYNGEAL SWAB [facility] Phone: [employer] Phone: Comp Metabolic Profon 2020 (cont.) Normal [facility] Comment on above: Result Comment: Aver age GFR for 20-29 years old: 116 mL/min/1.73sq m Chronic Kidney Disease: <60 mL/min/1.73sq m Kidney failure: <15 mL/min/1.73sq m eGFR calculated using average adult body mass. Additional eGFR calculator available at: http://www.Weatlas.Edamam/multiple_crcl_2012.htm Performed By: #### D AU #### [facility] [address] [place] [address] [employer] Operator: Garrett Perez MD Albumin [Mass/Vol] 4.5 g/dL Normal 3.5-5.2 [facility] Comment on above: Performed By: #### D AU #### [facility] [address] [place] [address] [employer] Operator: Garrett Perez MD Albumin/Glob Ratio 1.6 Normal 1.0-2.5 [facility] Comment on above: Performed By: #### D AU #### [facility] [address] [place], [place] 237[address]83 [employer] Operator: Garrett Perez MD Alkaline Phos 72 U/L Normal 35-104 [facility] Comment on above: Performed By: #### D AU #### [facility] [address] [place], [place] [address]27[address]83 [employer] Operator: Garrett Perez MD ALT [Catalytic activity/Vol] 71 U/L High 5-33 [facility] Comment on above: Performed By: #### D AU #### [facility] [address] [place], [place] 654[address]83 [employer] Operator: Garrett Perez MD Anion gap [Moles/Vol] 10 mmol/L Normal 9-17 [facility] Comment on above: Performed By: #### D AU #### [facility] [address] [place], [place] 6893783 [employer] Operator: Garrett Perez MD AST [Catalytic activity/Vol] 35 U/L High <32 [facility] Comment on above: Performed By: #### D AU #### [facility] [address] [place], [place] 820[address]83 [employer]ach Range Operator: Garrett Perez MD Bilirubin [Mass/Vol] 0.34 mg/dL Normal 0.3-1.2 [facility] Comment on above: Performed By: #### D AU #### [facility] [address] [place], [place] [id number] [employer] Range Operator: Garrett Perez MD BUN/CRE Ratio 14 Normal 9-20 [facility] Comment on above: Performed By: #### D AU #### [facility] [address] [place], [place] [id number] [employer] Range Operator: Garrett Perez MD Calcium [Mass/Vol] 10.3 mg/dL Normal 8.6-10.4 [facility] Comment on above: Performed By: #### D AU #### [facility] [address] [place], [place] [id number] [employer] Operator: Garrett Perez MD Chloride [Moles/Vol] 103 mmol/L Normal 98-107 [facility] Comment on above: Performed By: #### D AU #### [facility] [address] [place], [place] 8[address]83 [employer] Range Operator: Garrett Perez MD CO2 [Moles/Vol] 23 mmol/L Normal 20-31 [facility] Comment on above: Performed By: #### D AU #### [facility] [address] [place], [place] [id number] [employer] Operator: Garrett Perez MD Creatinine [Mass/Vol] 0.65 mg/dL Normal 0.50-0.90 [facility] Comment on above: Performed By: #### D AU #### [facility] [address] [place], [place] [id number] [employer] Range Operator: Garrett Perez MD GFR, Amer >60 Normal >60 [facility] Comment on above: Performed By: #### D AU #### [facility] [address] [place], [place] [id number] [employer] Range Operator: Garrett Perez MD GFR,non Amer >60 Normal >60 [facility] Comment on above: Performed By: #### D AU #### [facility] [address] [place], [place] [id number] [employer] Operator: Garrett Perez MD Glucose [Mass/Vol] 84 mg/dL Normal 70-99 [facility] Comment on above: Performed By: #### D AU #### [facility] [address] [place], [place] [id number] Ble[employer] Range Operator: Garrett Perez MD Potassium [Moles/Vol] 4.2 mmol/L Normal 3.7-5.3 [facility] Comment on above: Performed By: #### D AU #### [facility] [address] [place] [address] [place] [place], [place] 1532[address] [employer] Operator: Garrett Perez MD Protein [Mass/Vol] 7.4 g/dL Normal 6.4-8.3 [facility] Comment on above: Performed By: #### D AU #### [facility] [address] [place], [place] [id number] [employer] Operator: Garrett Perez MD Sodium [Moles/Vol] 136 mmol/L Normal 135-144 [facility] Comment on above: Performed By: #### D AU #### [facility] [address] [place] [address] [employer] Range Operator: Garrett Perez MD Staging: Normal [facility] Comment on above: Result Comment: Stag e 1: Some kidney damage normal GFR Stage 2: Mild kidney damage GFR 60-89 Stage 3: Moderate kidney damage GFR 30-59 Stage 4: Severe kidney damage GFR 15-29 Stage 5: Severe kidney damage GFR <15 ESRD - chronic treatment by dialysis or transplant Performed By: #### D AU #### [facility] [address] [place] [address] [place] [place], [place] [id number] [employer] Operator: Garrett Perez MD Urea nitrogen [Mass/Vol] 9 mg/dL Normal 6-20 [facility] Comment on above: Performed By: #### D AU #### [facility] [address] [place] [address] [employer] Range Operator: Garrett Perez MD Comprehensive Metabolic Pane lOrdered By: Jm Hussein on 04-09-2021 Albumin [Mass/Vol] 4.5 g/dL 3.5 - 5.2 g/dL [facility] Work Phone: Albumin/Globulin [Mass ratio] 1.6 {ratio} [employer] Phone: ALP (Bld) [Catalytic activity/Vol] 72 U/L 35 - 104 U/L [employer] Phone: ALT [Catalytic activity/Vol] 71 U/L High 5 - 33 U/L [employer] Phone: Anion gap [Moles/Vol] 10 mmol/L 9 - 17 mmol/L [employer] Phone: AST [Catalytic activity/Vol] 35 U/L High <32 [employer] Phone: Bilirubin [Mass/Vol] 0.34 mg/dL 0.3 - 1 .2 mg/dL [employer] Phone: Calcium [Mass/Vol] 10.3 mg/dL 8.6 - 10. 4 mg/dL [employer] Phone: Chloride [Moles/Vol] 103 mmol/L 98 - 10 7 mmol/L [employer] Phone: CO2 [Moles/Vol] 23 mmol/L 20 - 31 mmol/L [employer] Phone: Creatinine [Mass/Vol] 0.65 mg/dL 0.50 - 0.90 mg/dL [employer] Phone: Free PSA/Total PSA [Mass fraction] 7.4 g/dL 6.4 - 8.3 g/dL [employer] Phone: GFR >60 >60 mL/min [employer] Phone: GFR Non- >60 >60 mL/min [employer] Phone: Glucose [Mass/Vol] 84 mg/dL 70 - 99 mg/dL [employer] Phone: Potassium [Moles/Vol] 4.2 mmol/L 3.7 - 5.3 mmol/L [employer] Phone: Sodium [Moles/Vol] 136 mmol/L 135 - 144 mmol/L [facility] [employer] Phone: Urea nitrogen (BldV) [Mass/Vol] 9 mg/dL 6 - 20 mg/dL [facility] [employer] Phone: Urea nitrogen/Creatinine (Bld) [Mass ratio] 14 [facility] [employer] Phone: Drug Scr, Abuse, Uron 2020 Amphetamine(s),Ur Negative Normal NEG [facility] Comment on above: Performed By: #### C OVRB #### [facility] [address] [place] [address] [employer] Operator: Garrett Perez MD Barbiturate(s),Ur Negative Normal NEG [facility] Comment on above: Performed By: #### C OVRB #### [facility] [address] [place] [id number] [employer] Operator: Garrett Perez MD Benzodiazepine(s) Negative Normal [facility] Comment on above: Performed By: #### C OVRB #### [facility] [address] [place] [address] [employer] Operator: Garrett Perez MD Buprenorphrine, Ur Negative Normal [facility] Comment on above: Performed By: #### C OVRB #### [facility] [address] [place], [place] [id number] [employer] Operator: Garrett Perez MD Cannabinoid(s),Ur Positive Abnormal NEG [facility] Comment on above: Performed By: #### C OVRB #### [facility] [address] [place] [address] Ble[employer] Range Operator: Garrett Perez MD Cocaine Metabolite Negative Normal [facility] Comment on above: Performed By: #### C OVRB #### [facility] [address] [place] [address] [employer] Range Operator: Garrett Perez MD Methadone Ql (U) Negative Normal NEG [facility] Comment on above: Performed By: #### C OVRB #### [facility] [address] [place] [address] Ble[employer] Range Operator: Garrett Perez MD Methamphetamine, Ur Negative Normal NEG [facility] Comment on above: Performed By: #### C OVRB #### [facility] [address] [place] [address] [employer] Range Operator: Garrett Perez MD Opiate(s), Ur Negative Normal NEG [facility] Comment on above: Performed By: #### C OVRB #### [facility] [address] [place] [address] [employer] Range Operator: Garrett Perez MD Oxycodone, Urine Negative Normal [facility] Comment on above: Performed By: #### C OVRB #### [facility] [address] [place], [place] 134[address]83 [employer] Operator: Garrett Perez MD Phencyclidine, Ur Negative Normal [facility] Comment on above: Performed By: #### C OVRB #### [facility] [address] [place] [address] [place], [place] [address]83 [employer] Operator: Garrett Perez MD Propoxyphene,Urine Negative Normal [facility] Comment on above: Performed By: #### C OVRB #### [facility] [address] [place], [place] 115[address]83 [employer] Operator: Garrett Perez MD Tricyclic antidepressants Screen Ql (U) Negative Normal [facility] Comment on above: Result Comment: Drug screen results are to be used for medical purposes only. All positive results are unconfirmed. Testing for employment or legal uses should be sent to a reference laboratory for confirmation. Performed By: #### C OVRB #### [facility] [address] [place] [address] Ble[employer] Range Operator: Garrett Perez MD Interpretive Info NOT REPORTED Normal [facility] Comment on above: Performed By: #### C OVRB #### [facility] [address] [place] [address] [place] [address] [employer] Range Operator: Garrett Perez MD Drug Scr, Abuse, UrOrdered B y: Jm Hussein on 04-09-2021 MDMA, Urine NOT REPORTED Normal NEG [employer] Phone: Comment on above: Performed By: #### C OVRB #### [address] [place] [address] Ble[employer] Range Operator: Garrett Perez MD EthanolOrdered By: Jm chauhan on 04-09-2021 Ethanol [Mass/Vol] mg/dL <10 mg/dL [facility] Phone: Ethanol percent <0.010 <0.010 % [facility] [employer] Phone: [facility] Phone: Ethanol Alcoholon 04-09-2021 Ethanol [Mass/Vol] mg/dL Normal <10 [facility] Comment on above: Performed By: #### A LCB, ACET #### [address] [place] [address] [employer] Range Operator: Garrett Perez MD Ethanol percent <0.010 Normal <0.010 [facility] Comment on above: Performed By: #### A LCB, ACET #### [address] [place] [address] [employer] Range Operator: Garrett Perez MD HCG Qualitative, SerumOrdere d By: Jm Hussein on 04-09-2021 hCG Qual Negative NEGATIVE [facility] Phone: Comment on above: Specimens with hCG l evels near the threshold of the test (25 mIU/mL) may give a negative or indeterminate result. In such cases, another test should be performed with a new specimen in 48-72 hours. If early is suspected clinically in this setting, correlation with quantitative serum b-hCG level is suggested. [employer] has confirmed the use of plasma for this test. This has not been cleared or approved by the U.S. Food and Drug Administration. The FDA has determined that such clearance is not necessary. [employer] Phone: HCG Screen, Bloodon 04-09-20 21 HCG Screen, Blood Negative Normal NEG [facility] Comment on above: Result Comment: Spec imens with hCG levels near the threshold of the test (25 mIU/mL) may give a negative or indeterminate result. In such cases, another test should be performed with a new specimen in 48-72 hours. If early is suspected clinically in this setting, correlation with quantitative serum b-hCG level is suggested. [employer] has confirmed the use of plasma for this test. This has not been cleared or approved by the U.S. Food and Drug Administration. The FDA has determined that such clearance is not necessary. Performed By: #### D AU #### [facility] [address] [place] [address] [place] [address] [employer] Operator: Garrett Perez MD Laboratory - Chemistry and C hemistry - challengeOrdered By: Jm Hussein on 04-09-2021 GFR/1.73 sq M.predicted MDRD (S/P/Bld) [Vol rate/Area] [facility] Phone: Comment on above: Average GFR for 20-2 9 years old: 116 mL/min/1.73sq m Chronic Kidney Disease: <60 mL/min/1.73sq m Kidney failure: <15 mL/min/1.73sq m eGFR calculated using average adult body mass. Additional eGFR calculator available at: http://www.Weatlas.com/multiple_crcl_2012.htm Stage 1: Some kidney damage normal GFR Stage 2: Mild kidney damage GFR 60-89 Stage 3: Moderate kidney damage GFR 30-59 Stage 4: Severe kidney damage GFR 15-29 Stage 5: Severe kidney damage GFR <15 ESRD - chronic treatment by dialysis or transplant No Panel InformationOrdered By: Jm Hussein on 04-09-2021 Interpretation and review of laboratory results Abnormal [facility] Phone: [facility] [employer] Phone: [id number] 04-09-2021 SARS-CoV-2 (COVID-19) RNA MORENA+probe Ql (Unsp spec) Not detected Normal NOTDET [facility] Comment on above: Result Comment: Rapid [...] management decisions. Fact sheet for Healthcare Providers: https://www.fda.gov/media/747179/download Fact sheet for Patients: https://www.fda.gov/media/684742/download Methodology: Isothermal Nucleic Acid Amplification Performed By: #### C OVRB #### [facility] [address] [place] [address] Bleach Range Operator: Garrett Perez MD SPECIMEN REJECTIONOrdered By : Jm Hussein on 04-09-2021 - NOT REPORTED [facility] [employer] Phone: Ordered Test CDP [facility] [employer] Phone: Reason for Rejection Unable to perform testing: No specimen received. [facility] [employer] Phone: Specimen source Nom (Unsp spec) .BLOOD [facility] [employer] Phone: [facility] [employer] Phone: Salicylateon 04-09-2021 Salicylate <1 Low 3-10 [facility] Comment on above: Performed By: #### D AU #### [facility] [address] [place], [place] 436[address]83 Ble[employer] Range Operator: Garrett Perez MD SalicylateOrdered By: Jm Hussein on 04-09-2021 Salicylate Lvl <1 Low 3 - 10 mg/dL [facility] Work Phone: Specimen Rejectionon 021 Reason for rejection Unable to perform testing: No specimen received. Normal [facility] Comment on above: Performed By: #### C OVRB #### [facility] [address] [place], [place] 27[address] [employer] Range Operator: Garrett Perez MD Source of sample .BLOOD Normal [facility] Comment on above: Performed By: #### C OVRB #### [facility] [address] [place], [place] 1539[address] Bleach Range Operator: Garrett Perez MD Test ordered CDP Normal [facility] Comment on above: Performed By: #### C OVRB #### [facility] [address] [place], [place] 3648083 Bleach Range Operator: Garrett Perez MD ----- NOT REPORTED [facility] Comment on above: Performed By: #### C OVRB #### [facility] [address] [place] [address] Ble[employer] Range Operator: Garrett Perez MD Urinalysis w/ Microon 2020 ----- Normal [facility] Comment on above: Performed By: #### C OVRB #### [facility] [address] [place], [place] [address]99[address]83 Ble[employer] Range Operator: Garrett Perez MD Bacteria 1+ Abnormal NONE [facility] Comment on above: Performed By: #### C OVRB #### [facility] [address] [place] [address] Bleach Range Operator: Garrett Perez MD Bilirubin, SemiQt,Ur Negative Normal NEG [facility] Comment on above: Performed By: #### C OVRB #### [facility] [address] [place] [address] Bleach Range Operator: Garrett Perez MD Blood, Urine Negative Normal NEG [facility] Comment on above: Performed By: #### C OVRB #### [facility] [address] [place] [address] Bleach Range Operator: Garrett Perez MD Clarity (U) CLEAR Normal CLEAR [facility] Comment on above: Performed By: #### C OVRB #### [facility] [address] [place] [address] Bleach Range Operator: Garrett Perez MD Color (U) YELLOW Normal YEL [facility] Comment on above: Performed By: #### C OVRB #### [facility] [address] [place], [place] 8398[address] Bleach Range Operator: Garrett Perez MD Epithelial cells LM Ql (Urine sed) 5 TO 10 Normal 0-25 [facility] Comment on above: Performed By: #### C OVRB #### [facility] [address] [place], [place] 443[address]83 Bleach Range Operator: Garrett Perez MD Glucose Ql (U) Negative Normal NEG [facility] Comment on above: Performed By: #### C OVRB #### [facility] [address] [place], [place] [address]378483 Bleach Range Operator: Garrett Perez MD Ketones Ql (U) Negative Normal NEG [facility] Comment on above: Performed By: #### C OVRB #### [facility] [address] [place] [address] Bleach Range Operator: Garrett Perez MD Leukocyte esterase Test strip Ql (U) Negative Normal NEG [facility] Comment on above: Performed By: #### C OVRB #### [facility] [address] [place], [place] 5956[address] Bleach Range Operator: Garrett Perez MD Nitrite,Ur Negative Normal NEG [facility] Comment on above: Performed By: #### C OVRB #### [facility] [address] [place], [place] 1759183 Bleach Range Operator: Garrett Perez MD PH,Ur 5.5 Normal 5.0-9.0 [facility] Comment on above: Performed By: #### C OVRB #### [facility] [address] [place], [place] 4686[address] Bleach Range Operator: Garrett Perez MD Protein Ql (U) Negative Normal NEG [facility] Comment on above: Performed By: #### C OVRB #### [facility] [address] [place], [place] 6314[address] Bleach Range Operator: Garrett Perez MD Spec. [place],Ur 1.025 High 1.010-1.020 [facility] Comment on above: Performed By: #### C OVRB #### [facility] [address] [place], [place] 5834483 Bleach Range Operator: Garrett Perez MD Urine RBC's None Normal 0-2 [facility] Comment on above: Performed By: #### C OVRB #### [facility] [address] [place], [place] 0[address]83 Bleach Range Operator: Garrett Perez MD Urine WBC's 0 TO 2 Normal 0-5 [facility] Comment on above: Performed By: #### C OVRB #### [facility] [address] [place], [place] [address]46[address] Bleach Range Operator: Garrett Perez MD Urobilinogen,Ur Normal Normal NORM [facility] Comment on above: Performed By: #### C OVRB #### [facility] [address] [place], [place] 2967683 Bleach Range Operator: Garrett Perez MD Amorphous sediment LM Ql (Urine sed) NOT REPORTED Normal NONE [facility] Comment on above: Performed By: #### C OVRB #### [facility] [address] [place], [place] 6014383 Bleach Range Operator: Garrett Perez MD Casts NOT REPORTED Normal [facility] Comment on above: Performed By: #### C OVRB #### [facility] [address] [place] [address] Bleach Range Operator: Garrett Perez MD Comment NOT REPORTED Normal [facility] Comment on above: Performed By: #### C OVRB #### [facility] [address] [place] [address] Bleach Range Operator: Garrett Perez MD Crystals LM Nom (Urine sed) NOT REPORTED Normal [facility] Comment on above: Performed By: #### C OVRB #### [facility] [address] [place] [address] Bleach Range Operator: Garrett Perez MD Epithelial, Renal NOT REPORTED Normal 0 [facility] Comment on above: Performed By: #### C OVRB #### [facility] [address] [place], [place] 66[address]83 Bleach Range Operator: Garrett Perez MD Mucus Strands NOT REPORTED Normal [facility] Comment on above: Performed By: #### C OVRB #### [facility] [address] [place] [address] Bleach Range Operator: Garrett Perez MD Other Observations NOT REPORTED Normal NREQ [facility] Comment on above: Performed By: #### C OVRB #### [facility] [address] [place] [address] Bleach Range Operator: Garrett Perez MD Trichomonas NOT REPORTED Normal [facility] Comment on above: Performed By: #### C OVRB #### [facility] [address] [place] [address] Bleach Range Operator: Garrett Perez MD Yeast NOT REPORTED Normal NONE [facility] Comment on above: Performed By: #### C OVRB #### [facility] [address] [place] [address] Bleach Range Operator: Garrett Perez MD Urinalysis with microscopicO rdered By: Kalyan Irizarry on 04-09-2021 - [employer] Work Phone: Amorphous, UA NOT REPORTED None [employer] Phone: Bacteria, UA 1+ Abnormal None [employer] Phone: Bilirubin Urine Negative NEGATIVE [employer] Phone: Casts UA NOT REPORTED /LPF [employer] Phone: Color, UA YELLOW YELLOW [employer] Work Phone: Crystals, UA NOT REPORTED None /HPF [employer] Work Phone: Epithelial Cells UA 5 TO 10 [employer] Phone: Glucose, Ur Negative NEGATIVE [employer] Phone: Interpretation and review of laboratory results Abnormal [employer] Phone: Ketones Ql (U) Negative NEGATIVE [employer] Phone: Leukocyte esterase Test strip Ql (U) Negative NEGATIVE [employer] Phone: Mucus, UA NOT REPORTED None [employer] Phone: Nitrite, Urine Negative NEGATIVE [employer] Phone: Other Observations UA NOT REPORTED NOT REQ. [facility] Work Phone: pH, UA 5.5 [employer] Work Phone: Protein, UA Negative NEGATIVE [employer] Phone: RBC, UA None [facility] Work Phone: Renal Epithelial, UA NOT REPORTED 0 /HPF [facility] Work Phone: Specific [place], UA 1.025 High [facility] Work Phone: Trichomonas, UA NOT REPORTED None [facility] Work Phone: Turbidity UA CLEAR CLEAR [facility] Work Phone: Urinalysis Comments NOT REPORTED [facility] Work Phone: Urine Hgb Negative NEGATIVE [facility] Work Phone: Urobilinogen, Urine Normal Normal [facility] Work Phone: WBC, UA 0 TO 2 [facility] Work Phone: Yeast, UA NOT REPORTED None [facility] Work Phone: [facility] Work Phone: Urine Drug ScreenOrdered By: Jm Hussein on 04-09-2021 Amphetamine Screen, Ur Negative NEGATIVE [facility] Work Phone: Barbiturate Screen, Ur Negative NEGATIVE [facility] Work Phone: Benzodiazepine Screen, Urine Negative NEGATIVE [facility] Work Phone: Buprenorphine Urine Negative NEGATIVE [facility] Work Phone: Cannabinoid Scrn, Ur Positive Abnormal NEGATIVE [facility] Work Phone: Cocaine Metabolite, Urine Negative NEGATIVE [facility] Work Phone: Interpretation and review of laboratory results Abnormal [facility] Work Phone: Methadone Screen, Urine Negative NEGATIVE [facility] Work Phone: Methamphetamine, Urine Negative NEGATIVE [facility] Work Phone: Opiates, Urine Negative NEGATIVE [facility] Work Phone: Oxycodone Screen, Ur Negative NEGATIVE [facility] Work Phone: Phencyclidine, Urine Negative NEGATIVE [employer] Phone: Propoxyphene, Urine Negative NEGATIVE [employer] Phone: Test Information NOT REPORTED [employer] Phone: Tricyclic Antidepressants, Urine Negative NEGATIVE [employer] Phone: Comment on above: Drug screen results are to be used for medical purposes only. All positive results are unconfirmed. Testing for employment or legal uses should be sent to a reference laboratory for confirmation. [employer] Phone: COVID-19 PCRon 06-09-2020 SARS-CoV-2, MORENA Not Detected Normal Not Detected [facility] Comment on above: Result Comment: This test was developed and its performance characteristics determined by [employer]. This test has not been FDA cleared [...] assay. Performed By: #### C VDPCR #### [facility] [address] [place] [address] Cresencio Murphy CBC/PLATELET & AUTO DIFFEREN Ryan 06-12-2017 Basophils Auto #/vol (Bld) 0.0 10*3/uL Normal 0.0-0.1 [facility] Basophils/100 WBC Auto (Bld) 0 % Normal 0-1 [facility] CBC/PLATELET & AUTO DIFFERENTIAL 0.0 10*3/uL Normal - [facility] Comment on above: Result Comment: er 7 Eosinophils 0.0 10*3/uL Normal 0.0-0.4 [facility] Eosinophils/100 leukocytes 0 % Normal 0-5 [facility] Erythrocyte distribution width Auto Ratio (RBC) 12.9 % Normal 11.7-14.4 [facility] Erythrocytes (RBC) 4.79 10*6/uL Normal 4.20-5.40 [facility] Hematocrit (HCT) 40.0 % Normal 37.0-47.0 [facility] Hemoglobin mass conc (Bld) 14.0 g/dL Normal 11.5-16.0 [facility] Lymphocytes 1.8 10*3/uL Normal 0.9-2.5 [facility] Lymphocytes/100 leukocytes 10 % Low 13-44 [facility] MCH 29.2 pg Normal 27.0-31.0 [facility] MCHC mass conc (RBC) 35.0 g/dL Normal 31.5-36.0 [facility] MCV 83.5 fL Normal 82.0-101.0 [facility] Monocytes 1.0 10*3/uL Normal 0.1-1.0 [facility] Monocytes/100 leukocytes 6 % Normal 5-9 [facility] Neutrophils 14.5 10*3/uL High 2.1-6.5 [facility] Neutrophils/100 leukocytes 83 % High 39-75 [facility] [facility] Nucle[facility] erythrocytes 0 % Normal - [facility] Platelet mean volume (PMV) 8.5 fL Normal 8.2-11.4 [facility] Platelets 239.0 10*3/uL Normal 130.0-400.0 [facility] WBC (Leukocytes) 17.6 10*3/uL High 4.4-10.2 [facility] CHEST PORTABLEon 06-12-2017 CHEST PORTABLE EXAM: Portable chest.CLINICAL STATEMENT: Syncopal episode today.COMPARISON: 10/31/2016.TECHNIQUE: Single mobile AP upright view chest at 3:21 PM.FINDINGS: Heart size within normal limits. There is no mediastinal widening.The lung cummins and pleural spaces are clear.IMPRESSION:No acute change.Dictated Physician: Loki PiperDictated On: 06/12/2017 15:30Interpreted By: Loki PiperTranscribed By: Cheo Piperigned By: Loki Piper.Signed On: 06/12/2017 15:30 Normal [facility] HCG URINEon 06-12-2017 HCG.beta subunit ( test) Ql (U) Negative Normal Negative [facility] HCG.beta subunit ( test) Ql (U) SEE NOTE Normal - [facility] Comment on above: Result Comment: er 7 M I PANELon 06-12-2017 Anion gap 12.8 mmol/L Normal - [facility] BUN/Creatinine Ratio 10.2 mg/mg Normal [facility] Calcium 8.8 mg/dL Normal 8.5-10.1 [facility] Chloride 107 mmol/L Normal 98-107 [facility] CO2 27.1 mmol/L Normal 21.0-32.0 [facility] Creatinine 0.98 mg/dL Normal 0.55-1.02 [facility] eGFR (non-black) mL/min/{1.73_m2} Normal >60 [facility] Glucose mass conc 87 mg/dL Normal 70-110 [facility] M I PANEL SEE NOTE Normal - [facility] Comment on above: Result Comment: er 7 Magnesium 1.9 mg/dL Normal 1.8-2.4 [facility] Osmolality 283 mosm/kg Normal - [facility] Potassium molar conc 3.9 mmol/L Normal 3.5-5.1 [facility] Sodium 143 mmol/L Normal 136-145 [facility] Troponin I.cardiac mass conc ng/mL Normal 0.000-0.056 [facility] Urea nitrogen 10 mg/dL Normal 7-18 [facility] PT PROTIMEon 06-12-2017 INR Coag RelTime (PPP) 1.0 {INR} Normal - [facility] Prothrombin time (PT) Coag time (PPP) 10.5 s Normal 9.3-11.7 [facility] PT PROTIME SEE NOTE Normal [facility] Comment on above: Result Comment: er 7 PTTon 06-12-2017 aPTT 24.8 s Normal 24.5-32.7 [facility] Comment on above: Result Comment: er 7 URINALYSIS W/ MICROSCOPIC if indicatedon 06-12-2017 Bilirubin Ql (U) Negative Normal Negative [facility] Blood Moderate Abnormal Negative [facility] Blood product type Clean catch Normal - [facility] Glucose mass conc Normal Normal Normal [facility] Protein Moderate Abnormal Negative [facility] Sq. Epithelial Cells 3 /[HPF] Abnormal None seen [facility] URINALYSIS W/ MICROSCOPIC if indicated 0 /[HPF] Normal 0-2 [facility] Comment on above: Result Comment: er 7 Urine, appearance CLEAR Normal Clear [facility] Urine, bacteria in sediment 1 /[HPF] Abnormal None seen [facility] Urine, color YELLOW Normal - [facility] Urine, ketones presence Negative Normal Negative [facility] Urine, nitrite presence Positive Abnormal Negative [facility] Urine, pH 7.0 [pH] Normal 5.0 - 9.0 [facility] Urine, specific gravity 1.010 Normal 1.01 0 - 1.030 [facility] Urine, urobilinogen Normal Normal Normal [facility] WBC (Leukocytes) 6 /[HPF] Abnormal 0-5 [facility] WBC (Leukocytes) Moderate Abnormal Negative [facility] Vital Signs Date Time Vital Sign Value Performing Clinician Facility 07-18-2024 16:27-0400 Body height 162.56 cm Denny Lomeli CNP Work Phone: [facility] Work Phone: 07-18-2024 16:27-0400 Body mass index (BMI) [Ratio] 57.2 kg/m2 Denny Lomeli ACCOUNTING SYSTEMS ANALYST Work Phone: [facility] Work Phone: 07-18-2024 16:27-0400 Body surface area Derived from formula 2.4 m2 Denny Lomeli ACCOUNTING SYSTEMS ANALYST Work Phone: [facility] Work Phone: 07-18-2024 16:27-0400 Body temperature 97.6 [degF] Denny Lomeli ACCOUNTING SYSTEMS ANALYST Work Phone: [facility] Work Phone: 07-18-2024 16:27-0400 Body weight 151.05 kg Denny Lomeli ACCOUNTING SYSTEMS ANALYST Work Phone: [facility] Work Phone: 07-18-2024 16:27-0400 Diastolic blood pressure 86 mm[Hg] Denny Lomeli ACCOUNTING SYSTEMS ANALYST Work Phone: [facility] Work Phone: 07-18-2024 16:27-0400 Heart rate 103 /min Denny Lomeli ACCOUNTING SYSTEMS ANALYST Work Phone: [facility] Work Phone: 07-18-2024 16:27-0400 Respiratory rate 18 /min Denny Lomeli ACCOUNTING SYSTEMS ANALYST Work Phone: [facility] Work Phone: 07-18-2024 16:27-0400 SaO2% (BldA) [Mass fraction] 95 % Denny Lomeli ACCOUNTING SYSTEMS ANALYST Work Phone: [facility] Work Phone: 07-18-2024 16:27-0400 Systolic blood pressure 135 mm[Hg] eDnny Lomeli ACCOUNTING SYSTEMS ANALYST Work Phone: [facility] Work Phone: 06-13-2024 17:46-0400 Diastolic blood pressure 84 mm[Hg] Denny Lomeli ACCOUNTING SYSTEMS ANALYST Work Phone: [facility] Comment on above: manual large 06-13-2024 17:46-0400 Systolic blood pressure 144 mm[Hg] Denny Lomeli ACCOUNTING SYSTEMS ANALYST Work Phone: [facility] Comment on above: manual large 06-13-2024 17:21-0400 Diastolic blood pressure 86 mm[Hg] Denny Lomeli ACCOUNTING SYSTEMS ANALYST Work Phone: [facility] Work Phone: 06-13-2024 17:21-0400 Systolic blood pressure 154 mm[Hg] Denny Lomeli CNP Work Phone: [facility] Work Phone: 06-13-2024 16:45-0400 Body height 162.56 cm Denny Lomeli CNP Work Phone: [facility] Work Phone: 06-13-2024 16:45-0400 Body mass index (BMI) [Ratio] 57.9 kg/m2 Denny Lomeli CNP Work Phone: [facility] Work Phone: 06-13-2024 16:45-0400 Body surface area Derived from formula 2.4 m2 Denny Lomeli CNP Work Phone: [facility] Work Phone: 06-13-2024 16:45-0400 Body weight 153.14 kg Denny Lomeli CNP Work Phone: [facility] Work Phone: 06-13-2024 16:45-0400 Diastolic blood pressure 98 mm[Hg] Denny Lomeli CNP Work Phone: [facility] Work Phone: 06-13-2024 16:45-0400 Heart rate 103 /min Denny Lomeli CNP Work Phone: [facility] Work Phone: 06-13-2024 16:45-0400 SaO2% (BldA) [Mass fraction] 96 % Denny Lomeli CNP Work Phone: [facility] Work Phone: 06-13-2024 16:45-0400 Systolic blood pressure 151 mm[Hg] Denny Lomeli CNP Work Phone: [facility] Work Phone: 04-10-2024 16:50-0400 Diastolic blood pressure 89 mm[Hg] Denny Lomeli ACCOUNTING SYSTEMS ANALYST Work Phone: [facility] 04-10-2024 16:50-0400 Heart rate 75 /min Denny Lomeli ACCOUNTING SYSTEMS ANALYST Work Phone: [facility] 04-10-2024 16:50-0400 Systolic blood pressure 137 mm[Hg] Denny Lomeli ACCOUNTING SYSTEMS ANALYST Work Phone: [facility] 04-10-2024 16:39-0400 Body height 162.56 cm Denny Lomeli ACCOUNTING SYSTEMS ANALYST Work Phone: [facility] 04-10-2024 16:39-0400 Body mass index (BMI) [Ratio] 54.6 kg/m2 Denny Lomeli ACCOUNTING SYSTEMS ANALYST Work Phone: [facility] 04-10-2024 16:39-0400 Body surface area Derived from formula 2.4 m2 Denny Lomeli ACCOUNTING SYSTEMS ANALYST Work Phone: [facility] 04-10-2024 16:39-0400 Body weight 144.24 kg Denny Lomeli ACCOUNTING SYSTEMS ANALYST Work Phone: [facility] 04-10-2024 16:39-0400 Diastolic blood pressure 94 mm[Hg] Denny Lomeli ACCOUNTING SYSTEMS ANALYST Work Phone: [facility] 04-10-2024 16:39-0400 Heart rate 75 /min Denny Lomeli ACCOUNTING SYSTEMS ANALYST Work Phone: [facility] 04-10-2024 16:39-0400 SaO2% (BldA) [Mass fraction] 98 % Denny Lomeli ACCOUNTING SYSTEMS ANALYST Work Phone: [facility] 04-10-2024 16:39-0400 Systolic blood pressure 161 mm[Hg] Denny Lomeli ACCOUNTING SYSTEMS ANALYST Work Phone: [facility] 01-17-2024 19:09-0400 Body height 162.56 cm Denny Lomeli ACCOUNTING SYSTEMS ANALYST Work Phone: [facility] 01-17-2024 19:09-0400 Body mass index (BMI) [Ratio] 52.7 kg/m2 Denny Lomeli ACCOUNTING SYSTEMS ANALYST Work Phone: [facility] 01-17-2024 19:09-0400 Body surface area Derived from formula 2.3 m2 Denny Lomeli ACCOUNTING SYSTEMS ANALYST Work Phone: [facility] 01-17-2024 19:09-0400 Body weight 139.26 kg Denny Lomeli ACCOUNTING SYSTEMS ANALYST Work Phone: [facility] 01-17-2024 19:09-0400 Diastolic blood pressure 88 mm[Hg] Denny Armani ACCOUNTING SYSTEMS ANALYST Work Phone: [facility] 01-17-2024 19:09-0400 Heart rate 106 /min Denny Lomeli ACCOUNTING SYSTEMS ANALYST Work Phone: [facility] 01-17-2024 19:09-0400 SaO2% (BldA) [Mass fraction] 97 % Denny Lomeli ACCOUNTING SYSTEMS ANALYST Work Phone: [facility] 01-17-2024 19:09-0400 Systolic blood pressure 134 mm[Hg] Denny Landonen ACCOUNTING SYSTEMS ANALYST Work Phone: [facility] 06-14-2023 15:00-0400 Diastolic blood pressure 69 mm[Hg] Denny Landonen ACCOUNTING SYSTEMS ANALYST Work Phone: [facility] 06-14-2023 15:00-0400 Systolic blood pressure 116 mm[Hg] Denny Armani ACCOUNTING SYSTEMS ANALYST Work Phone: [facility] 05-31-2023 15:52-0400 Diastolic blood pressure 78 mm[Hg] Denny Armani ACCOUNTING SYSTEMS ANALYST Work Phone: [facility] Work Phone: 05-31-2023 15:52-0400 Systolic blood pressure 137 mm[Hg] Denny Armani ACCOUNTING SYSTEMS ANALYST Work Phone: [facility] Work Phone: 05-10-2023 17:08-0400 Body height 162.56 cm Denny Armani ACCOUNTING SYSTEMS ANALYST Work Phone: [facility] Work Phone: 05-10-2023 17:08-0400 Body mass index (BMI) [Ratio] 32.8 kg/m2 Denny Lomeli CNP Work Phone: [facility] Work Phone: 05-10-2023 17:08-0400 Body surface area Derived from formula 1.9 m2 Denny Lomeli CNP Work Phone: [facility] Work Phone: 05-10-2023 17:08-0400 Body temperature 98.2 [degF] Denny Lomeli CNP Work Phone: [facility] Work Phone: 05-10-2023 17:08-0400 Body weight 86.64 kg Denny Lomeli CNP Work Phone: [facility] Work Phone: 05-10-2023 17:08-0400 Diastolic blood pressure 76 mm[Hg] Denny Lomeli CNP Work Phone: [facility] Work Phone: 05-10-2023 17:08-0400 Heart rate 97 /min Denny Lomeli CNP Work Phone: [facility] Work Phone: 05-10-2023 17:08-0400 SaO2% (BldA) [Mass fraction] 97 % Denny Lomeli CNP Work Phone: [facility] Work Phone: 05-10-2023 17:08-0400 Systolic blood pressure 111 mm[Hg] Denny Lomeli CNP Work Phone: [facility] Work Phone: 05-01-2023 14:03-0400 Diastolic blood pressure 76 mm[Hg] Denny Lomeli CNP Work Phone: [facility] 05-01-2023 14:03-0400 Heart rate 94 /min Denny Lomeli CNP Work Phone: [facility] 05-01-2023 14:03-0400 Systolic blood pressure 124 mm[Hg] Denny Lomeli CNP Work Phone: [facility] 08-12-2022 13:36-0400 Body height 162.56 cm Denny Lomeli CNP Work Phone: [facility] Work Phone: 08-12-2022 13:36-0400 Body mass index (BMI) [Ratio] 52.5 kg/m2 Denny Lomeli CNP Work Phone: [facility] Work Phone: 08-12-2022 13:36-0400 Body surface area Derived from formula 2.3 m2 Denny Lomeli CNP Work Phone: [facility] Work Phone: 08-12-2022 13:36-0400 Body temperature 99.3 [degF] Denny Lomeli CNP Work Phone: [facility] Work Phone: 08-12-2022 13:36-0400 Body weight 138.8 kg Denny Lomeli CNP Work Phone: [facility] Work Phone: 08-12-2022 13:36-0400 Diastolic blood pressure 86 mm[Hg] Denny Lomeli CNP Work Phone: [facility] Work Phone: 08-12-2022 13:36-0400 Heart rate 96 /min Denny Lomeli CNP Work Phone: [facility] Work Phone: 10-21-2022 13:36-0400 Heart Rate Rhythm 1 1 Denny Lomeli CNP Work Phone: [facility] Work Phone: 08-12-2022 13:36-0400 SaO2% (BldA) [Mass fraction] 97 % Denny Lomeli CNP Work Phone: [facility] Work Phone: 08-12-2022 13:36-0400 Systolic blood pressure 124 mm[Hg] Denny Lomeli CNP Work Phone: [facility] Work Phone: 06-15-2022 15:17-0400 Body height 162.56 cm Denny Lomeli CNP Work Phone: [facility] Work Phone: 06-15-2022 15:17-0400 Body mass index (BMI) [Ratio] 53.6 kg/m2 Denny Lomeli CNP Work Phone: [facility] Work Phone: 06-15-2022 15:17-0400 Body surface area Derived from formula 2.36 m2 Denny Lomeli CNP Work Phone: [facility] Work Phone: 06-15-2022 15:17-0400 Body surface area Derived from formula 2.4 m2 Denny Lomeli CNP Work Phone: [facility] Work Phone: 06-15-2022 15:17-0400 Body temperature 97.4 [degF] Denny Lomeli CNP Work Phone: [facility] Work Phone: 06-15-2022 15:17-0400 Body weight 141.52 kg Denny Lomeli CNP Work Phone: [facility] Work Phone: 06-15-2022 15:17-0400 Diastolic blood pressure 82 mm[Hg] Denny Lomeli CNP Work Phone: [facility] Work Phone: 06-15-2022 15:17-0400 Heart rate 86 /min Denny Lomeli CNP Work Phone: [facility] Work Phone: 06-15-2022 15:17-0400 SaO2% (BldA) [Mass fraction] 98 % Denny Lomeli CNP Work Phone: [facility] Work Phone: 06-15-2022 15:17-0400 Systolic blood pressure 124 mm[Hg] Denny Lomeli CNP Work Phone: [facility] Work Phone: 06-08-2022 15:06-0400 Body height 162.56 cm Denny Lomeli CNP Work Phone: [facility] Work Phone: 06-08-2022 15:06-0400 Body mass index (BMI) [Ratio] 52.2 kg/m2 Denny Lomeli CNP Work Phone: [facility] Work Phone: 06-08-2022 15:06-0400 Body surface area Derived from formula 2.34 m2 Denny Lomeli CNP Work Phone: [facility] Work Phone: 06-08-2022 15:06-0400 Body surface area Derived from formula 2.3 m2 Denny Lomeli CNP Work Phone: [facility] Work Phone: 06-08-2022 15:06-0400 Body temperature 99.3 [degF] Denny Lomeli CNP Work Phone: [facility] Work Phone: 06-08-2022 15:06-0400 Body weight 137.89 kg Denny Lomeli ACCOUNTING SYSTEMS ANALYST Work Phone: [facility] Work Phone: 06-08-2022 15:06-0400 Diastolic blood pressure 94 mm[Hg] Denny Lomeli ACCOUNTING SYSTEMS ANALYST Work Phone: [facility] Work Phone: 06-08-2022 15:06-0400 Heart rate 105 /min Denny Lomeli ACCOUNTING SYSTEMS ANALYST Work Phone: [facility] Work Phone: 06-08-2022 15:06-0400 Heart Rate Rhythm 1 1 Denny Lomeli ACCOUNTING SYSTEMS ANALYST Work Phone: [facility] Work Phone: 06-08-2022 15:06-0400 SaO2% (BldA) [Mass fraction] 98 % Denny Lomeli ACCOUNTING SYSTEMS ANALYST Work Phone: [facility] Work Phone: 06-08-2022 15:06-0400 Systolic blood pressure 126 mm[Hg] Denny Lomeli ACCOUNTING SYSTEMS ANALYST Work Phone: [facility] Work Phone: 05-27-2022 16:34-0400 Diastolic blood pressure 102 mm[Hg] Denny Lomeli ACCOUNTING SYSTEMS ANALYST Work Phone: [facility] Work Phone: 05-27-2022 16:34-0400 Systolic blood pressure 150 mm[Hg] Denny Armani ACCOUNTING SYSTEMS ANALYST Work Phone: [facility] Work Phone: 05-27-2022 15:08-0400 Body height 162.56 cm Denny Lomeli ACCOUNTING SYSTEMS ANALYST Work Phone: [facility] Work Phone: 05-27-2022 15:08-0400 Body mass index (BMI) [Ratio] 52.6 kg/m2 Denny Lomeli CNP Work Phone: [facility] Work Phone: 05-27-2022 15:08-0400 Body surface area Derived from formula 2.34 m2 Denny Lomeli CNP Work Phone: [facility] Work Phone: 05-27-2022 15:08-0400 Body surface area Derived from formula 2.3 m2 Denny Lomeli CNP Work Phone: [facility] Work Phone: 05-27-2022 15:08-0400 Body temperature 98.5 [degF] Denny Lomeli CNP Work Phone: [facility] Work Phone: 05-27-2022 15:08-0400 Body weight 138.98 kg Denny Lomeli CNP Work Phone: [facility] Work Phone: 05-27-2022 15:08-0400 Diastolic blood pressure 108 mm[Hg] Denny Lomeli CNP Work Phone: [facility] Work Phone: 05-27-2022 15:08-0400 Heart rate 89 /min Denny Lomeli CNP Work Phone: [facility] Work Phone: 05-27-2022 15:08-0400 SaO2% (BldA) [Mass fraction] 99 % Denny Lomeli CNP Work Phone: [facility] Work Phone: 05-27-2022 15:08-0400 Systolic blood pressure 152 mm[Hg] Denny Lomeli CNP Work Phone: [facility] Work Phone: 07-15-2021 13:50-0400 Body height 162.56 cm Denny Lomeli CNP Work Phone: [facility] Work Phone: 07-15-2021 13:50-0400 Body mass index (BMI) [Ratio] 50.1 kg/m2 Denny Lomeli CNP Work Phone: [facility] Work Phone: 07-15-2021 13:50-0400 Body surface area Derived from formula 2.3 m2 Denny Lomeli CNP Work Phone: [facility] Work Phone: 07-15-2021 13:50-0400 Body temperature 96.8 [degF] Denny Lomeli CNP Work Phone: [facility] Work Phone: 07-15-2021 13:50-0400 Body weight 132.45 kg Denny Lomeli CNP Work Phone: [facility] Work Phone: 07-15-2021 13:50-0400 Diastolic blood pressure 86 mm[Hg] Denny Lomeli CNP Work Phone: [facility] Work Phone: 07-15-2021 13:50-0400 Heart rate 86 /min Denny Lomeli CNP Work Phone: [facility] Work Phone: 07-15-2021 13:50-0400 Respiratory rate 18 /min Denny Lomeli CNP Work Phone: [facility] Work Phone: 07-15-2021 13:50-0400 SaO2% (BldA) [Mass fraction] 96 % Denny Lomeli ACCOUNTING SYSTEMS ANALYST Work Phone: [facility] Work Phone: 07-15-2021 13:50-0400 Systolic blood pressure 132 mm[Hg] Denny Lomeli ACCOUNTING SYSTEMS ANALYST Work Phone: [facility] Work Phone: 07-06-2021 23:34-0400 Heart rate 100 /min Kalyan Irizarry MD Work Phone: [employer] Work Phone: 07-06-2021 23:30-0400 Diastolic blood pressure 94 mm[Hg] Kalyan Irizarry MD Work Phone: [facility] Work Phone: 07-06-2021 23:30-0400 Systolic blood pressure 146 mm[Hg] Kalyan Irizarry MD Work Phone: [facility] Work Phone: 07-06-2021 22:37-0400 SaO2% (BldA) [Mass fraction] 97 % Kalyan Irizarry MD Work Phone: [facility] Work Phone: 07-06-2021 14:51-0400 Body mass index (BMI) [Ratio] 47.72 kg/m2 Kalyan Irizarry MD Work Phone: [facility] Work Phone: 07-06-2021 14:51-0400 Body temperature 98.2 [degF] Kalyan Irizarry MD Work Phone: [facility] Work Phone: 07-06-2021 14:51-0400 Body weight 126.1 kg Kalyan Irizarry MD Work Phone: [facility] Work Phone: 07-06-2021 14:51-0400 Respiratory rate 16 /min Kalyan Irizarry MD Work Phone: [facility] Work Phone: 06-17-2021 16:38-0400 Body height 162.56 cm Denny Lomeli CNP Work Phone: [facility] Work Phone: 06-17-2021 16:38-0400 Body mass index (BMI) [Ratio] 49.3 kg/m2 Denny Lomeli CNP Work Phone: [facility] Work Phone: 06-17-2021 16:38-0400 Body surface area Derived from formula 2.28 m2 Denny Lomeli CNP Work Phone: [facility] Work Phone: 06-17-2021 16:38-0400 Body temperature 97.4 [degF] Denny Lomeli CNP Work Phone: [facility] Work Phone: 06-17-2021 16:38-0400 Body weight 130.18 kg Denny Lomeli CNP Work Phone: [facility] Work Phone: 06-17-2021 16:38-0400 Diastolic blood pressure 98 mm[Hg] Denny Lomeli CNP Work Phone: [facility] Work Phone: 06-17-2021 16:38-0400 Heart rate 85 /min Denny Lomeli CNP Work Phone: [facility] Work Phone: 06-17-2021 16:38-0400 Respiratory rate 18 /min Denny Lomeli CNP Work Phone: [facility] Work Phone: 06-17-2021 16:38-0400 SaO2% (BldA) [Mass fraction] 97 % Denny Armani ACCOUNTING SYSTEMS ANALYST Work Phone: [facility] Work Phone: 06-17-2021 16:38-0400 Systolic blood pressure 144 mm[Hg] Denny Armani ACCOUNTING SYSTEMS ANALYST Work Phone: [facility] Work Phone: 05-16-2021 02:36-0400 Diastolic blood pressure 93 mm[Hg] Blanco Montalvo MD Work Phone: [employer] Work Phone: 05-16-2021 02:36-0400 Heart rate 75 /min Blanco Montalvo MD Work Phone: [facility] [employer] Work Phone: 05-16-2021 02:36-0400 Respiratory rate 20 /min Blanco Montalvo MD Work Phone: [facility] Work Phone: 05-16-2021 02:36-0400 SaO2% (BldA) [Mass fraction] 100 % Blanco Montalvo MD Work Phone: [facility] Work Phone: 05-16-2021 02:36-0400 Systolic blood pressure 150 mm[Hg] Blanco Montalvo MD Work Phone: [facility] Work Phone: 05-15-2021 20:15-0400 Body temperature 99.1 [degF] Blanco Montalvo MD Work Phone: [facility] Work Phone: 04-23-2021 11:33-0400 Body height 162.56 cm Dennyartem Lomeli ACCOUNTING SYSTEMS ANALYST Work Phone: [facility] Work Phone: 04-23-2021 11:33-0400 Body mass index (BMI) [Ratio] 48.9 kg/m2 Denny Lomeli CNP Work Phone: [facility] Work Phone: 04-23-2021 11:33-0400 Body surface area Derived from formula 2.27 m2 Denny Lomeli CNP Work Phone: [facility] Work Phone: 04-23-2021 11:33-0400 Body temperature 98.2 [degF] Denny Lomeli CNP Work Phone: [facility] Work Phone: 04-23-2021 11:33-0400 Body weight 129.28 kg Denny Lomeli CNP Work Phone: [facility] Work Phone: 04-23-2021 11:33-0400 Diastolic blood pressure 86 mm[Hg] Denny Lomeli CNP Work Phone: [facility] Work Phone: 04-23-2021 11:33-0400 Heart rate 101 /min Denny Lomeli CNP Work Phone: [facility] Work Phone: 04-23-2021 11:33-0400 SaO2% (BldA) [Mass fraction] 98 % Denny Lomeli CNP Work Phone: [facility] Work Phone: 04-23-2021 11:33-0400 Systolic blood pressure 124 mm[Hg] Denny Lomeli CNP Work Phone: [facility] Work Phone: 04-09-2021 16:30-0400 Body height 162.6 cm [employer] Work Phone: [facility] Work Phone: 04-09-2021 16:30-0400 Body mass index (BMI) [Ratio] 47.2 kg/m2 Jm Andes DO Work Phone: [facility] Work Phone: 04-09-2021 16:30-0400 Body temperature 98.8 [degF] Jm Andes DO Work Phone: [facility] Work Phone: 04-09-2021 16:30-0400 Body weight 124.74 kg Jm Andes DO Work Phone: [facility] Work Phone: 04-09-2021 16:30-0400 Diastolic blood pressure 88 mm[Hg] Jm Andes DO Work Phone: [facility] Work Phone: 04-09-2021 16:30-0400 Heart rate 78 /min Jm Andes DO Work Phone: [facility] Work Phone: 04-09-2021 16:30-0400 Respiratory rate 18 /min Jm Andes DO Work Phone: [employer] Work Phone: 04-09-2021 16:30-0400 SaO2% (BldA) [Mass fraction] 96 % Jm Andes DO Work Phone: [employer] Work Phone: 04-09-2021 16:30-0400 Systolic blood pressure 138 mm[Hg] Jm Andes DO Work Phone: [facility] [facility] Work Phone: 04-01-2021 15:53-0400 Body height 162.56 cm Denny Lomeli CNP Work Phone: [facility] Work Phone: 04-01-2021 15:53-0400 Body mass index (BMI) [Ratio] 49.5 kg/m2 Denny Lomeli CNP Work Phone: [facility] Work Phone: 04-01-2021 15:53-0400 Body surface area Derived from formula 2.29 m2 Denny Lomeli CNP Work Phone: [facility] Work Phone: 04-01-2021 15:53-0400 Body temperature 97.6 [degF] Denny Lomeli CNP Work Phone: [facility] Work Phone: 04-01-2021 15:53-0400 Body weight 130.82 kg Denny Lomeli CNP Work Phone: [facility] Work Phone: 04-01-2021 15:53-0400 Diastolic blood pressure 88 mm[Hg] Denny Lomeli CNP Work Phone: [facility] Work Phone: 04-01-2021 15:53-0400 Heart rate 83 /min Denny Lomeli CNP Work Phone: [facility] Work Phone: 04-01-2021 15:53-0400 Respiratory rate 20 /min Denny Lomeli CNP Work Phone: [facility] Work Phone: 04-01-2021 15:53-0400 SaO2% (BldA) [Mass fraction] 98 % Denny Lomeli CNP Work Phone: [facility] Work Phone: 04-01-2021 15:53-0400 Systolic blood pressure 130 mm[Hg] Denny Lomeli CNP Work Phone: [facility] Work Phone: 03-17-2021 15:36-0400 Diastolic blood pressure 108 mm[Hg] Denny Lomeli ACCOUNTING SYSTEMS ANALYST Work Phone: [facility] Work Phone: 03-17-2021 15:36-0400 Systolic blood pressure 134 mm[Hg] Denny Lomeli CNP Work Phone: [facility] Work Phone: 03-17-2021 14:05-0400 Body height 162.56 cm Denny Lomeli CNP Work Phone: [facility] Work Phone: 03-17-2021 14:05-0400 Body mass index (BMI) [Ratio] 49.8 kg/m2 Denny Lomeli CNP Work Phone: [facility] Work Phone: 03-17-2021 14:05-0400 Body surface area Derived from formula 2.29 m2 Denny Lomeli CNP Work Phone: [facility] Work Phone: 03-17-2021 14:05-0400 Body temperature 96.4 [degF] Denny Lomeli CNP Work Phone: [facility] Work Phone: 03-17-2021 14:05-0400 Body weight 131.54 kg Denny Lomeli CNP Work Phone: [facility] Work Phone: 03-17-2021 14:05-0400 Diastolic blood pressure 108 mm[Hg] Denny Lomeli CNP Work Phone: [facility] Work Phone: 03-17-2021 14:05-0400 Heart rate 97 /min Denny Lomeli CNP Work Phone: [facility] Work Phone: 03-17-2021 14:05-0400 Respiratory rate 18 /min Denny Armani ACCOUNTING SYSTEMS ANALYST Work Phone: [facility] Work Phone: 03-17-2021 14:05-0400 SaO2% (BldA) [Mass fraction] 98 % Denny Lomeli CNP Work Phone: [facility] Work Phone: 03-17-2021 14:05-0400 Systolic blood pressure 150 mm[Hg] Denny Lomeli CNP Work Phone: [facility] Work Phone: Encounters Encounter Date Encounter Type Care Provider Facility Start: 08-12-2024 End: 08-12-2024 ambulatory SHIVANI DONATO Not Available Start: 07-18-2024 End: 07-18-2024 [facility] visit, estab pt Sarai Alberts [employer]LECTRONIC [employer]S SALESPERSON Work Phone: [facility] Work Phone: Start: 06-13-2024 End: 06-13-2024 FQHC visit, estab pt Kinga Short LISWS Work Phone: [facility] Work Phone: Start: 06-13-2024 End: 06-13-2024 Encounter for preprocedural laboratory examination Denny Lomeli CNP Work Phone: [facility] Work Phone: Start: 06-13-2024 End: 06-13-2024 FQHC visit, estab pt Denny Lomeli ACCOUNTING SYSTEMS ANALYST Work Phone: [facility] Work Phone: Start: 04-10-2024 End: 04-10-2024 FQHC visit, estab pt Kinga Short LISWS Work Phone: [facility] Work Phone: Start: 04-10-2024 End: 04-10-2024 FQHC visit, estab pt Kinga Short LISWS Work Phone: [facility] Work Phone: Start: 02-28-2024 End: 02-29-2024 Emergency department patient visit SANDRAMALINDA Reed J[facility] Start: 01-17-2024 End: 01-17-2024 FQHC visit, estab pt Kingakatt RUDOLPH Work Phone: [facility] Work Phone: Start: 01-17-2024 End: 01-17-2024 General Denny Lomeli ACCOUNTING SYSTEMS ANALYST Work Phone: [facility] Work Phone: Start: 06-14-2023 End: 06-14-2023 General Boston Mao DDS Work Phone: [facility] Work Phone: Start: 05-31-2023 End: 05-31-2023 General [place] Mao DDS Work Phone: [facility] Work Phone: Start: 05-10-2023 End: 05-10-2023 FQHC visit, estab pt Denny Lomeli ACCOUNTING SYSTEMS ANALYST Work Phone: [facility] Work Phone: Start: 05-01-2023 comprehensive oral evaluation - new or established patient [place] Mao DDS Work Phone: [facility] Start: 05-01-2023 End: 05-01-2023 General Dina Ham RDH Work Phone: [facility] Work Phone: Start: 08-13-2022 End: 08-13-2022 ambulatory DENNY LOMELI [facility] Start: 08-12-2022 End: 08-12-2022 Subsequent hospital visit by physician Denny Lomeli BILL ADJUSTER - ACCOUNTING SYSTEMS ANALYST Work Phone: [facility] Start: 08-12-2022 End: 08-12-2022 FQHC visit, estab pt Denny Lomeli ACCOUNTING SYSTEMS ANALYST Work Phone: [facility] Work Phone: Start: 06-16-2022 End: 06-16-2022 General Belkis Velarde LPCC-S Work Phone: [facility] Work Phone: Start: 06-15-2022 End: 06-15-2022 ambulatory Leah Monique ACCOUNTING SYSTEMS ANALYST Work Phone: [facility] Work Phone: Start: 06-15-2022 End: 06-15-2022 General Leah Monique ACCOUNTING SYSTEMS ANALYST Work Phone: [facility] Work Phone: Start: 06-08-2022 End: 06-08-2022 FQHC visit, estab pt Belkisdionna Velarde LPCC-S Work Phone: [facility] Work Phone: Start: 05-27-2022 End: 05-27-2022 FQHC visit, estab pt Belkis Velarde LPCC-S Work Phone: [facility] Work Phone: Start: 05-27-2022 End: 05-27-2022 ambulatory Leah Monique ACCOUNTING SYSTEMS ANALYST Work Phone: [facility] Work Phone: Start: 05-27-2022 End: 07-15-2021 General Leah Monique ACCOUNTING SYSTEMS ANALYST Work Phone: [facility] Work Phone: Start: 07-26-2021 End: 07-27-2021 ambulatory DENNY Melvin [facility] Start: 07-26-2021 End: 07-26-2021 Subsequent hospital visit by physician [facility] Lead Sql Developer Rm MTHZ EKG Comment on above: Tachycardia Start: 07-15-2021 End: 07-15-2021 FQHC visit, estab pt Eufemia Mcneil [facility] Work Phone: [facility] Work Phone: Start: 07-15-2021 End: 07-15-2021 FQHC visit, estab pt Eufemia Mcneil [facility] Work Phone: [facility] Work Phone: Start: 07-07-2021 End: 07-10-2021 Evaluation and management of inpatient Maryjo JUAREZ [facility] Start: 07-06-2021 End: 07-07-2021 [facility] Start: 07-06-2021 End: 07-06-2021 Emergency department patient visit Kalyan Irizarry MD Work Phone: [facility] Comment on above: Bipolar 1 disorder ( HCC) (Primary Dx); Homicidal ideation Start: 06-17-2021 End: 06-17-2021 FQ visit, estab pt Kinga RUDOLPH Work Phone: [facility] Work Phone: Start: 05-15-2021 End: 05-16-2021 Emergency department patient visit BLANCO Almar[facility] Start: 05-15-2021 End: 05-16-2021 Emergency department patient visit Blanco Montalvo MD Work Phone: [facility] Comment on above: Anxiety state (Prima ry Dx) Start: 04-23-2021 End: 04-23-2021 ambulatory Teagan Gale CNP Work Phone: [facility] Work Phone: Start: 04-23-2021 End: 04-23-2021 General Teagan Gale CNP Work Phone: [facility] Work Phone: Start: 04-23-2021 End: 04-23-2021 FQHC visit, estab pt Kinga Bourgeois LISANTONETTE Work Phone: [facility] Work Phone: Start: 04-23-2021 End: 04-23-2021 FQHC visit, estab pt Kinga Bourgeois LISWS Work Phone: [facility] Work Phone: Start: 04-09-2021 End: 04-10-2021 Emergency department patient visit [facility] Start: 04-09-2021 End: 04-10-2021 Emergency department patient visit [facility] DO Work Phone: [facility] Comment on above: Depression with suic idal ideation (Primary Dx) Start: 04-01-2021 End: 04-01-2021 FQHC visit, estab pt Kinga Bourgeois LISANTONETTE Work Phone: [facility] Work Phone: Start: 04-01-2021 End: 04-01-2021 FQHC visit, estab pt Kinga Short LISWS Work Phone: [facility] Work Phone: Start: 03-17-2021 End: 03-17-2021 FQHC visit, estab pt Kinga Short LISWS Work Phone: [facility] Work Phone: Start: 03-17-2021 End: 03-17-2021 FQHC visit new patient Denny Lomeli ACCOUNTING SYSTEMS ANALYST Work Phone: [facility] Work Phone: Start: 06-06-2020 End: 06-06-2020 Patient encounter procedure ADDIS BARBER Facility: Start: 06-12-2017 End: 06-12-2017 Emergency department patient visit MD RIZWAN LÓPEZ Facility:[facility] Procedures Date Procedure Procedure Detail Performing Clinician Start: 09-26-2024 Application of silve r diamine fluoride by physician Denny Lomeli CNP Work Phone: Start: 07-18-2024 Behav assmt w/score & docd/stand instrument Sarai Alberts [employer] SALESPERSON Work Phone: Start: 07-18-2024 Eye img vld [...] ev cleared fda spec home use Denny Lomlei CNP Work Phone: Start: 01-17-2024 Most recent [...] 05-10-2023 Hemoglobin glycosyla stephanie a1c Denny Lomeli [facility] Work Phone: Start: 05-10-2023 Most recent diastoli c blood pressure < 80 mm hg Denny Lomeli [facility] Work Phone: Start: 05-10-2023 Most recent hemoglob in a1c level < 7.0% Denny Lomeli [facility] Work Phone: Start: 05-10-2023 Most recent systolic blood pressure <130 mm hg Denny Lomeli [facility] Work Phone: Start: 05-01-2023 caries risk assessme nt and documentation, with a finding of high risk Dina Ham [facility] Work Phone: Start: 05-01-2023 intraoral - complete series of radiographic images Dina Ham [facility] Work Phone: Start: 05-01-2023 panoramic radiograph ic image Dina Ham RD Work Phone: Start: 05-01-2023 prophylaxis - adult Ernie Ham RD Work Phone: Start: 08-12-2022 Most recent diastoli c blood pressure 80-89 mm hg Denny Lomeli [facility] Work Phone: Start: 08-12-2022 Most recent systolic blood pressure <130 mm hg Denny Lomeli [facility] Work Phone: Start: 06-16-2022 Psychotherapy w/blaze ent 30 minutes Belkis Velarde [facility] Work Phone: Start: 06-15-2022 Most recent diastoli c blood pressure 80-89 mm hg Leah Amaya ACCOUNTING SYSTEMS ANALYST Work Phone: Start: 06-15-2022 Most recent systolic blood pressure <130 mm hg Leah Monique ACCOUNTING SYSTEMS ANALYST Work Phone: Start: 06-15-2022 Psychotherapy w/blaze ent [...] 05-27-2022 Hemoglobin glycosyla stephanie a1c Leah Amaya ACCOUNTING SYSTEMS ANALYST Work Phone: Start: 05-27-2022 Most recent diastol blood pres >/equal 90 mm hg Leah Amaya ACCOUNTING SYSTEMS ANALYST Work Phone: Start: 05-27-2022 Most recent hemoglob in a1c level < 7.0% Leah Amaya ACCOUNTING SYSTEMS ANALYST Work Phone: Start: 05-27-2022 Most recent systolic [...] pressure < 80 mm hg Denny Lomeli [facility] Work Phone: Start: 06-17-2021 Most recent systolic blood pressure <130 mm hg Denny Lomeli [facility] Work Phone: Start: 06-17-2021 Psychotherapy w/blaze ent [...] blood pressure 80-89 mm hg Denny Armani ACCOUNTING SYSTEMS ANALYST Work Phone: Start: 04-23-2021 Most recent systolic blood pressure <130 mm hg Denny Armani ACCOUNTING SYSTEMS ANALYST Work Phone: Start: 04-23-2021 Psychotherapy w/blaze ent [...] blood pressure 80-89 mm hg Denny Lomeli ACCOUNTING SYSTEMS ANALYST Work Phone: Start: 04-01-2021 Most recent systolic blood pressure <130 mm hg Denny Lomeli ACCOUNTING SYSTEMS ANALYST Work Phone: Start: 04-01-2021 Psychotherapy w/blaze ent 30 minutes Kinga Short LISWS Work Phone: Start: 03-17-2021 Ear Pressure Equaliz ation Tube, Insertion, Bilaterally Denny Lomeli ACCOUNTING SYSTEMS ANALYST Work Phone: Start: 03-17-2021 Most recent diastol blood pres >/equal 90 mm hg Denny Lomeli ACCOUNTING SYSTEMS ANALYST Work Phone: Start: 03-17-2021 Most recent systolic blood pres>/equal 140 mm hg Denny Lomeli ACCOUNTING SYSTEMS ANALYST Work Phone: Start: 03-17-2021 Pt-focused hlth risk assmt score doc stnd instrm Denny Lomeli ACCOUNTING SYSTEMS ANALYST Work Phone: Start: 03-17-2021 Tonsillectomy Dennyartem alexandra ACCOUNTING SYSTEMS ANALYST Work Phone: Plan of Treatment Date Care Activity Detail Author Start: 08-15-2024 FQHC visit, estab pt Medical E stablished Patient [facility] Work Phone: Start: 08-03-2024 CBC W Auto Different ial panel - Blood [facility] Start: 07-18-2024 FQHC visit, estab pt Medical E stablished Patient [facility] Work Phone: Start: 07-18-2024 End: 07-18-2024 Patient education based on identified need [facility] Start: 07-13-2024 US Transvaginal ([id number]) [facility] Start: 06-13-2024 End: 06-13-2024 Patient education based on identified need [facility] Start: 06-13-2024 FQHC visit, estab pt Medical E stablished Patient [facility] Work Phone: Start: 06-13-2024 End: 06-13-2024 Patient education based on identified need [facility] Start: 04-15-2024 Ferritin [Mass/volum e] in Serum or Plasma [facility] Start: 04-10-2024 End: 04-10-2024 Patient education based on identified need [facility] Start: 03-21-2024 FQHC visit, estab pt Medical E stablished Patient [facility] Work Phone: Start: 02-16-[address] [id number] [facility] Start: 01-17-2024 End: 01-17-2024 Patient education based on identified need [facility] Start: 05-10-2023 End: 05-10-2023 Patient education based on identified need [facility] Start: 05-10-2023 [facility] Work Phone: Comment on above: Note: Please make a referral to: see if dr carney accepting now, otherwise ok with rd or get Start: 12-13-2022 FQHC visit, estab pt Medical E stablished Patient [facility] Work Phone: Start: 08-12-2022 End: 08-12-2022 Patient education based on identified need [facility] Start: 07-08-[address] [id number] [facility] Start: 07-07-2022 FQHC visit, estab pt Medical E stablished Patient [facility] Work Phone: Start: 06-16-2022 End: 06-16-2022 Patient education based on identified need [facility] offered active listening and supportive feedback; normalized emotions and feelings, also provided pt time to process any current stressors. ~Promoted and encouraged follow-through with scheduling psychiatric services [facility] Start: 06-15-2022 End: 06-15-2022 Patient education based on identified need [facility] Start: 06-13-2022 [facility] Start: 06-08-2022 FQHC visit, estab pt Ti debbie [facility] Work Phone: Comment on above: Note: Please make a referral to: request dr carney Start: 06-08-2022 End: 06-08-2022 Patient education based on identified need [facility] Start: 05-27-2022 End: 05-27-2022 Patient education based on identified need [facility] ~[facility] offered active listening and supportive feedback; normalized emotions and feelings, also provided pt time to process any current stressors ~P discussed potential benefits of counseling and supported re-engaging, as needed. ~[facility] encouraged pt to continue to make time to implement self-care regimen and use coping methods, as needed [facility] Start: 05-27-2022 CBC W Auto Different ial panel - Blood [facility] Start: 05-27-2022 Lipid 1996 panel - S mica or Plasma LIPID PROFILE [facility] Start: 05-27-2022 End: 05-27-2022 Patient education based on identified need [facility] Start: 05-23-2022 Influenza vaccination Flu vaccine (# 1) [facility] Start: 08-24-2021 COVID-19 Vaccine (3 - Booster for Pfizer series) COVID-19 Vaccine (3 - Booster for Pfizer series) [facility] Start: 08-14-2021 [facility] Start: 07-19-2021 FQ visit, estab pt Medical E stablished Patient [facility] Work Phone: Start: 07-15-2021 [facility] Work Phone: Comment on above: Note: Please make a referral to: [facility] - [address] [id number]: [phone]: [phone] Note: Please make a referral to: Elham flores , no longer wants to see derrell Start: 07-15-2021 End: 07-15-2021 Patient education based on identified need [facility] Start: 06-23-2021 Influenza vaccination [facility] Work Phone: Start: 06-17-2021 End: 06-17-2021 Patient education based on identified need [facility] Start: 04-30-2021 SARS-CoV-2, [facility] Start: 04-23-2021 End: 04-23-2021 Patient education based on identified need [facility] Start: 04-01-2021 End: 04-01-2021 Patient education based on identified need [facility] Start: 03-17-2021 End: 03-17-2021 Patient education based on identified need [facility] Start: 06-24-2020 DTaP/Tdap/Td vaccine (7 - Td or Tdap) DTaP/Tdap/Td vaccine (7 - Td or Tdap) [facility] Start: 2020 Screening for malign ant neoplasm of cervix [facility] Start: 2018 DTaP/Tdap/Td vaccine (1 - Tdap) DTaP/Tdap/Td vaccine (1 - Tdap) [facility] Work Phone: Start: 2017 Hepatitis C screening Hepatitis C sc reen [facility] Start: 2015 Screening for Chlamy solitario trachomatis [facility] Start: 2014 HIV screening HIV screen [facility] Work Phone: Start: 2011 COVID-19 Vaccine (1) COVID-19 Vaccin e (1) [facility] Work Phone: Start: 2011 Depression Monitoring Depression [facility] Start: 2010 HPV vaccine (1 - 2-d ose series) HPV vaccine (1 - 2-dose series) [facility] Start: 2000 Varicella vaccine (1 of 2 - 2-dose childhood series) Varicella vaccine (1 of 2 - 2-dose childhood series) [facility] Start: 1999 Hepatitis C screening Hepatitis C sc reen [facility] Work Phone: End: 08-12-2022 C.trachomatis N.gonorrhoeae DNA, Urine [facility] Work Phone: Comment on above: Once for 1 Occurrenc es starting 08/12/2022 until 08/12/2022 EKG 12 Lead EKG 12 Lead ECG STAT 07/06/2021 3:18 PM EDT [employer] Work Phone: End: 08-12-2022 Trichomonas Vaginali, Molecular BON [facility] Work Phone: Comment on above: Once for 1 Occurrenc es starting 08/12/2022 until 08/12/2022 Immunizations Immunization Date Immunization Notes Care Provider Jennifer alejo 07-18-2024 influenza, injectabl e, quadrivalent, preservative free; Translations: [Fluarix] Denny Lomeli [facility] Work Phone: [facility] Comment on above: Note: Patient tolera stephanie well. No signs or symptoms of adverse reactions. Patient waited a minimum of 15 minutes. 07-18-2024 Imm.Admin. over 18 y rs Any Route FIRST Injection (Rendering physician modifier) Denny Lomeli [facility] Work Phone: [facility] 06-13-2024 Human Papillomavirus 9-valent vaccine; Translations: [GARDASIL 9] Denny Lomeli [facility] Work Phone: [facility] 06-13-2024 pneumococcal vaccine , unspecified formulation Denny Lomeli ACCOUNTING SYSTEMS ANALYST Work Phone: [facility] Comment on above: Note: Patient tolera stephanie well. No signs or symptoms of adverse reactions. Patient waited a minimum of 15 minutes. 06-13-2024 Imm.Admin.Through 18 yrs Any Route FIRST Injection Denny Lomeli CNP Work Phone: [facility] 06-13-2024 Ea.Addnl.Imm.Admin.T hroug h 17 yrs Any Route Denny Lomeli CNP Work Phone: [facility] 06-13-2024 VFC Imm. Admin. thro ugh 17 yrs Any Route per VFC Injection (Signi/Sep Eval. & Man.) Denny Lomeli [facility] Work Phone: [facility] 08-12-2022 influenza, injectabl e, quadrivalent, preservative free; Translations: [Fluarix] Denny Lomeli [facility] Work Phone: [facility] Comment on above: Note: Patient tolera stephanie well. No signs or symptoms of adverse reactions. Patient waited a minimum of 15 minutes. 08-12-2022 Imm.Admin. over 18 y rs Any Route FIRST Injection Denny Lomeli [facility] Work Phone: [facility] 06-29-2021 1st Dose PFIZER COVI D-19 Vaccine Denny Lomeli [facility] Work Phone: [facility] 06-08-2021 1st Dose PFIZER COVI D-19 Vaccine Dneny Lomeli [facility] Work Phone: [facility] 06-29-2016 meningococcal oligosaccharide (groups A, C, Y and W-135) diphtheria toxoid conjugate vaccine (MCV4O) Denny Lomeli [facility] Work Phone: [facility] 06-24-2010 tetanus toxoid, redu messi diphtheria toxoid, and acellular pertussis vaccine, adsorbed Denny Lomeli [facility] Work Phone: [facility] 06-18-2004 measles, mumps and rubella virus vaccine Denny Lomeli [facility] Work Phone: [facility] 06-18-2004 poliovirus vaccine, inactivated Denny Lomeli [facility] Work Phone: [facility] 03-13-2000 measles, mumps and rubella virus vaccine Denny Lomeli [facility] Work Phone: [facility] 03-13-2000 poliovirus vaccine, inactivated Denny Lomeli [facility] Work Phone: [facility] 1999 haemophilus influenz ae type b conjugate and Hepatitis B vaccine Denny Lomeli [facility] Work Phone: [facility] 1999 poliovirus vaccine, inactivated Denny Armani ACCOUNTING SYSTEMS ANALYST Work Phone: [facility] 1999 diphtheria, tetanus toxoids and pertussis vaccine Denny Lomeli CNP Work Phone: [facility] 1999 trivalent poliovirus vaccine, live, oral Denny Lomeli CNP Work Phone: [facility] 1999 hepatitis B vaccine, pediatric or pediatric/adolescent dosage Denny Lomeli CNP Work Phone: [facility] 1999 hepatitis B vaccine, pediatric or pediatric/adolescent dosage Denny Lomeli CNP Work Phone: [facility] Payers Date Payer Category Payer Unknown [id number] 1999 Unknown [id number] 2.16.84 [id number] 1999 Unknown [id number] 2.16.8 [id number] 1999 Unknown [id number] 2.16.8 [id number] 1999 Unknown [id number] 2.16.8 [id number] 1999 Unknown [id number] 2.16.8 [id number] 1999 Unknown [id number] 2.16.8 [id number] 1999 Unknown [id number] [id number]. [id number] 1999 Unknown [id number] 2.16.8 [id number] 1999 Unknown [id number] 2.16.8 [id number] 1999 Unknown [id number] 2.16.84 [id number] 1959 Private Health Insurance [id number] Unknown [id number] Social History Date Type Detail Facility Assertion Family problems (finding) [facility] Problem situatio n relating to social and personal history (finding) [facility] Emotional stress (finding) [facility] Lives with paren ts (finding) [facility] Social drinker (finding) [facility] Assertion Benzodiazepine m isuse (finding) [facility] Sexually active (finding) [facility] Gender identity finding (finding[facility] Finding of sexua l orientation (finding) [facility] Tobacco smoking status Unknown if ever smoked [facility] Work Phone: Start: 08-09-2017 End: 04-09-2021 Tobacco smoking status NHIS Never smoker [employer] Phone: Start: 08-09-2017 End: 04-09-2021 Tobacco use and exposure Never used [employer] Start: 04-09-2021 End: 07-09-2021 Alcohol intake Ex-drinker (finding) [employer] [facility] Phone: Start: 04-09-2021 History SDOH Alcohol Frequency 1 [employer] [facility] Phone: Start: 1999 Sex Assigned At Not on file [employer] [facility] Phone: Exposure to SARS-CoV-2 (event) Not sure [employer] Smoking monitori ng status (finding) [facility] Work Phone: Assertion Cigarette smoker (finding) [facility] Light cigarette smoker (1-9 cigs/day) (finding) [facility] Exposure to poll ution (event) [facility] [facility] Sm[facility] (finding) [facility] Finding relating to sexual activity (finding) [facility] Assertion Homosexual behav ior (finding) [facility] Assertion Currently not se xually active (finding) [facility] Assertion Details of drug misuse behavior (observable entity) [facility] Assertion History of disor kyree (situation) [facility] NEGATED: Highlighted row Assertion Current drinker of alcohol (finding) [facility] NEGATED: Highlighted row Assertion Finding relating to drug misuse behavior (finding) [facility] NEGATED: Highlighted row Assertion [facility] NEGATED: Highlighted row Assertion Exposure to pollution (event) [facility] Medical Equipment Procedure Code Equipment Code Equipment Origin al Text Equipment Identifier Dates Blood Glucose Te st In Vitro Strip [id number] Start: 06-13-2024 End: 07-01-2024 CareSens Lancets Miscellaneous [id number] Start: 06-13-2024 OneTouch Ultra I n Vitro Strip [id number] Start: 07-01-2024 End: 06-26-2025 Mental Status Date Assessment Result Facility 10-23-2019 Cognitive function A previous dhillon icide attempt 2019 with hospitalization at [address] [place] [address] Work Phone: Cognitive function Cognitive fun ctioning was normal Cognitive function finding (finding) [facility] Work Phone: Clinical Notes 03-17-2021 to 07-29-2024 Note Date & Type Note Facility 07-29-2024 Evaluation note Includes: Assessments for all patient encounters Findings [D50.9 - Iron deficiency ane eduardo, unspecified] iron deficiency anemia Chart Update with Denny Lomeli CNP 07/29/2024 Last Documented On 4 2:06PM ; [facility] Attention-deficit hyperactivity disorder Established Patient with Saraifiliberto Alberts [facility] 07/18/2024 Last Documented On 4 4:15PM ; [facility] Bipolar I disorder, most rec ent episode, depressed - mild Established Patient with Saraifiliberto Alberts [facility] 07/18/2024 Last Documented On 4 4:15PM ; [facility] Nicotine dependence Established Patient with Saraifiliberto Alberts [facility] 07/18/2024 Last Documented On 4 4:15PM ; [facility] Post-traumatic stress disorder Establ ished Patient with Sarai Alberts [employer] 07/18/2024 Last Documented On 4 4:15PM ; [facility] [Z68.43 - Body mass index [B ID] 50.0-59.9, adult] assessment of body mass index Medical Established Patient with Dennyartem Landonen ACCOUNTING SYSTEMS ANALYST 07/18/2024 Last Documented On 4 2:09PM ; [facility] Bipolar I disorder, most rec ent episode, depressed - mild Medical Established Patient with Denny Armani ACCOUNTING SYSTEMS ANALYST 07/18/2024 Last Documented On 4 2:09PM ; [facility] Caries Medical Established Patient with Denny Armani ACCOUNTING SYSTEMS ANALYST 07/18/2024 Last Documented On 4 2:09PM ; [facility] Encounter for Immunization Medical Estab lished Patient with Denny Armani ACCOUNTING SYSTEMS ANALYST 07/18/2024 Last Documented On 4 2:09PM ; [facility] Type 2 diabetes mellitus wit hout complication Medical Established Patient with Denny Armani ACCOUNTING SYSTEMS ANALYST 07/18/2024 Last Documented On 4 2:09PM ; [facility] Attention-deficit hyperactivity disorder Established Patient with Kinga Short [facility] 06/13/2024 Last Documented On 4 3:28PM ; [facility] Bipolar I disorder, most rec ent episode, depressed - mild Established Patient with Kinga Short [facility] 06/13/2024 Last Documented On 4 3:28PM ; [facility] Post-traumatic stress disorder Establ ished Patient with Kinga Short [facility] 06/13/2024 Last Documented On 4 3:28PM ; [facility] [E11.9 - Type 2 diabetes gloria litus without complications] type 2 diabetes mellitus Medical Established Patient with Denny Armani ACCOUNTING SYSTEMS ANALYST 06/13/2024 Last Documented On 4 7:36PM ; [facility] [F41.1 - Generalized anxiety disorder] generalized anxiety disorder Medical Established Patient with Denny Armani ACCOUNTING SYSTEMS ANALYST 06/13/2024 Last Documented On 4 7:36PM ; [facility] [I10 - Essential (primary) hypertension] essential hypertension Medical Established Patient with Denny Lomeli ACCOUNTING SYSTEMS ANALYST 06/13/2024 Last Documented On 4 7:36PM ; [facility] [N94.6 - Dysmenorrhea, unspe cified] dysmenorrhea Medical Established Patient with Denny Lomeli ACCOUNTING SYSTEMS ANALYST 06/13/2024 Last Documented On 4 7:36PM ; [facility] [Z68.43 - Body mass index [B ID] 50.0-59.9, adult] assessment of body mass index Medical Established Patient with Denny Lomeli ACCOUNTING SYSTEMS ANALYST 06/13/2024 Last Documented On 4 7:36PM ; [facility] Encounter for Immunization Medical Estab lished Patient with Denny Lomeli ACCOUNTING SYSTEMS ANALYST 06/13/2024 Last Documented On 4 7:36PM ; [facility] Venipuncture was performed Medical Estab lished Patient with Denny Lomeli ACCOUNTING SYSTEMS ANALYST 06/13/2024 Last Documented On 4 7:36PM ; [facility] Attention-deficit hyperactivity disorder Established Patient with Kinga Short [facility] 04/10/2024 Last Documented On 4 10:10AM ; [facility] Bipolar I disorder, most rec ent episode, depressed - mild Established Patient with Kinga Short [facility] 04/10/2024 Last Documented On 4 10:10AM ; [facility] Post-traumatic stress disorder BH Establ ished Patient with Kinga Short [facility] 04/10/2024 Last Documented On 4 10:10AM ; [facility] [D64.9 - Anemia, unspecified] anemia Med ical Established Patient with Denny Lomeli ACCOUNTING SYSTEMS ANALYST 04/10/2024 Last Documented On 4 6:51PM ; [facility] [Z68.43 - Body mass index [B ID] 50.0-59.9, adult] assessment of body mass index Medical Established Patient with Denny Lomeli ACCOUNTING SYSTEMS ANALYST 04/10/2024 Last Documented On 4 6:51PM ; [facility] Bipolar affective disorder, current episode depressed, mild Established Patient with Kinga Short [facility] 01/17/2024 Last Documented On 4 5:16PM ; [facility] Post-traumatic stress disorder BH Establ ished Patient with Kinga Short [facility] 01/17/2024 Last Documented On 4 5:16PM ; [facility] Undifferentiated attention d eficit disorder BH Established Patient with Kinga Short [facility] 01/17/2024 Last Documented On 4 5:16PM ; [facility] Visit for: screening for disorder BH Est ablished Patient with Kinga Short [facility] 01/17/2024 Last Documented On 4 5:16PM ; [facility] [Z68.43 - Body mass index [B ID] 50.0-59.9, adult] assessment of body mass index Medical Established Patient with Denny Lomeli ACCOUNTING SYSTEMS ANALYST 01/17/2024 Last Documented On 4 7:50PM ; [facility] Attention-deficit hyperactivity disorder Medical Established Patient with Denny Lomeli ACCOUNTING SYSTEMS ANALYST 01/17/2024 Last Documented On 4 7:50PM ; [facility] Diabetes Risk Test Score was three score 01/17/2024 Medical Established Patient with Denny Lomeli ACCOUNTING SYSTEMS ANALYST 01/17/2024 Last Documented On 4 7:50PM ; [facility] Visit for: screening for STD Medical Est ablished Patient with Denny Lomeli ACCOUNTING SYSTEMS ANALYST 01/17/2024 Last Documented On 4 7:50PM ; [facility] [Z68.32 - Body mass index [B ID] 32.0-32.9, adult] assessment of body mass index Medical Established Patient with Denny Lomeli ACCOUNTING SYSTEMS ANALYST 05/10/2023 Last Documented On 3 6:01PM ; [facility] Borderline personality disorder Medical Established Patient with Dennyartem Landonen ACCOUNTING SYSTEMS ANALYST 05/10/2023 Last Documented On 3 6:01PM ; [facility] Screening for diabetes mellitus Medical Established Patient with Dennyartem Landonen ACCOUNTING SYSTEMS ANALYST 05/10/2023 Last Documented On 3 6:01PM ; [facility] Assessment of body mass index Medical Es tablished Patient with Denny Lomeli ACCOUNTING SYSTEMS ANALYST 08/12/2022 Last Documented On 2 2:45PM ; [facility] Bipolar affective disorder, current episode manic Telebehavioral Health with Belkisdionna Velarde [facility] 06/16/2022 Last Documented On 2 3:22PM ; [facility] Bipolar affective disorder, current episode manic Established Patient with Belkis Velarde [facility] 06/15/2022 Last Documented On 2 2:28PM ; [facility] Bipolar affective disorder, current episode depressed, severe with psychosis Telebehavioral Health with Belkisdionna Velarde [facility] 06/15/2022 Last Documented On 2 3:29PM ; [facility] Assessment of body mass inde x [Body mass index [BMI] 50.0-59.9, adult] Open Access - Established with Leah Monique ACCOUNTING SYSTEMS ANALYST 06/15/2022 Last Documented On 2 9:36AM ; [facility] Bipolar I disorder, most rec ent episode, manic Open Access - Established with Leah Monique ACCOUNTING SYSTEMS ANALYST 06/15/2022 Last Documented On 2 9:36AM ; [facility] Post-traumatic stress disorder Establ ished Patient with Belkisdionna Velarde [facility] 06/08/2022 Last Documented On 2 3:20PM ; [facility] No cough Medical Established Patient with Denny Armani ACCOUNTING SYSTEMS ANALYST 06/08/2022 Last Documented On 2 4:04PM ; [facility] Z68.43 - Body mass index [BM I] 50.0-59.9, adult Medical Established Patient with Denny Armani ACCOUNTING SYSTEMS ANALYST 06/08/2022 Last Documented On 2 4:04PM ; [facility] Borderline personality disor kyree Pt reported hx of sx/dx Established Patient with Belkisdionna CoffeyVelarde [facility] 05/27/2022 Last Documented On 2 4:08PM ; [facility] Assessment of body mass inde x [Body mass index [BMI] 50.0-59.9, adult] Open Access - Established with Leah Monique ACCOUNTING SYSTEMS ANALYST 05/27/2022 Last Documented On 2 7:41PM ; [facility] Diabetes Risk Test Score was three score 05/27/2022 Open Access - Established with Leah Monique ACCOUNTING SYSTEMS ANALYST 05/27/2022 Last Documented On 2 7:41PM ; [facility] Bipolar I disorder, most rec ent episode, manic Established Patient with Eufemia Mcneil [facility] 07/15/2021 Last Documented On 1 1:35AM ; [facility] Borderline personality disorder Estab lished Patient with Eufemia Mcneil [facility] 07/15/2021 Last Documented On 1 1:35AM ; [facility] Post-traumatic stress disorder Establ ished Patient with Eufemia Mcneil [facility] 07/15/2021 Last Documented On 1 1:35AM ; [facility] Assessment of visit for: lloyd mcgillning for human immunodeficiency virus Medical Established Patient with Denny Armani ACCOUNTING SYSTEMS ANALYST 07/15/2021 Last Documented On 1 2:56PM ; [facility] Nicotine dependence Medical Established Patient with Denny Armani ACCOUNTING SYSTEMS ANALYST 07/15/2021 Last Documented On 1 2:56PM ; [facility] Medical Established Patient with Denny Armani ACCOUNTING SYSTEMS ANALYST 07/15/2021 Last Documented On 1 2:56PM ; [facility] Z68.43 - Body mass index [BM I] 50.0-59.9, adult Medical Established Patient with Denny Armani ACCOUNTING SYSTEMS ANALYST 07/15/2021 Last Documented On 1 2:56PM ; [facility] Bipolar I disorder, most rec ent episode, manic Established Patient with Kinga Short [facility] 06/17/2021 Last Documented On 1 10:17AM ; [facility] Borderline personality disor kyree per patient reported history BH Established Patient with Kinga Short [facility] 06/17/2021 Last Documented On 1 10:17AM ; [facility] Nicotine dependence Established Patient with Kinga Short [facility] 06/17/2021 Last Documented On 1 10:17AM ; [facility] Post-traumatic stress disorder Establ ished Patient with Kinga Short [facility] 06/17/2021 Last Documented On 1 10:17AM ; [facility] Body mass index Medical Established Patient with Dennyartem Landonen ACCOUNTING SYSTEMS ANALYST 06/17/2021 Last Documented On 1 5:23PM ; [facility] Morbid obesity Medical Established Patient with Denny Armani ACCOUNTING SYSTEMS ANALYST 06/17/2021 Last Documented On 1 5:23PM ; [facility] Nicotine dependence uncomplicated Medica l Established Patient with Denny Armani ACCOUNTING SYSTEMS ANALYST 06/17/2021 Last Documented On 1 5:23PM ; [facility] Z68.42 - Body mass index [BM I] 45.0-49.9, adult Medical Established Patient with Denny Armani ACCOUNTING SYSTEMS ANALYST 06/17/2021 Last Documented On 1 5:23PM ; [facility] 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 disorders 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 ACCOUNTING SYSTEMS ANALYST 05/15/2021 Last Documented On 1 7:49AM ; [facility] Mood disorders, NOS per blaze ent reported history Established Patient with Kinga Short [facility] 04/23/2021 Last Documented On 1 7:15PM ; [facility] Post-traumatic stress disorder Establ ished Patient with Kinga Short [facility] 04/23/2021 Last Documented On 1 7:15PM ; [facility] Morbid obesity Medical Established Patient with Denny Armani ACCOUNTING SYSTEMS ANALYST 04/23/2021 Last Documented On 1 12:31PM ; [facility] Otitis externa Medical Established Patient with Denny Armani ACCOUNTING SYSTEMS ANALYST 04/23/2021 Last Documented On 1 12:31PM ; [facility] Z68.42 - Body mass index [BM I] 45.0-49.9, adult Medical Established Patient with Denny Armani ACCOUNTING SYSTEMS ANALYST 04/23/2021 Last Documented On 1 12:31PM ; [facility] Post-traumatic stress disorder Establ ished Patient with Kinga Short [facility] 04/01/2021 Last Documented On 1 10:05PM ; [facility] Morbid obesity Medical Established Patient with Denny Lomeli ACCOUNTING SYSTEMS ANALYST 04/01/2021 Last Documented On 1 4:45PM ; [facility] Z68.42 - Body mass index [BM I] 45.0-49.9, adult Medical Established Patient with Dennyartem Lomeli ACCOUNTING SYSTEMS ANALYST 04/01/2021 Last Documented On 1 4:45PM ; [facility] Post-traumatic stress disorder Establ ished Patient with Kinga Short [facility] 03/17/2021 Last Documented On 1 11:59AM ; [facility] Assessment of visit for: lloyd strange for human immunodeficiency virus Medical New Patient with Denny Lomeli ACCOUNTING SYSTEMS ANALYST 03/17/2021 Last Documented On 1 4:06PM ; [facility] Diabetes Risk Test Score was one score 03/17/2021 Medical New Patient with Denny Lomeli ACCOUNTING SYSTEMS ANALYST 03/17/2021 Last Documented On 1 4:06PM ; [facility] Hypertension Medical New Patient with Denny Maryjo doherty ACCOUNTING SYSTEMS ANALYST 03/17/2021 Last Documented On 1 4:06PM ; [facility] Morbid obesity Medical New Patient with Denny C chas ACCOUNTING SYSTEMS ANALYST 03/17/2021 Last Documented On 1 4:06PM ; [facility] Post-traumatic stress disorder Medical New Patie nt with Dennyartem Lomeli ACCOUNTING SYSTEMS ANALYST 03/17/2021 Last Documented On 1 4:06PM ; [facility] Z68.42 - Body mass index [BM I] 45.0-49.9, adult Medical New Patient with Dennyartem Lomeli ACCOUNTING SYSTEMS ANALYST 03/17/2021 Last Documented On 1 4:06PM ; [facility] Work Phone: 1(220) 338-796610-07-2024 Evaluation note Includes: Assessments for all patient encounters Findings Encounter Date [D50.9 - Iron deficiency ane eduardo, unspecified] iron deficiency anemia Chart Update with Denny Lomeli ACCOUNTING SYSTEMS ANALYST 07/29/2024 Last Documented On 4 2:06PM ; [facility] Attention-deficit hyperactivity disorder BH Established Patient with Sarai Alberts [employer] 07/18/2024 Last Documented On 4 4:15PM ; [facility] Bipolar I disorder, most rec ent episode, depressed - mild BH Established Patient with Sarai Alberts [employer] 07/18/2024 Last Documented On 4 4:15PM ; [facility] Nicotine dependence Established Patient with Saraifiliberto Alberts [employer] 07/18/2024 Last Documented On 4 4:15PM ; [facility] Post-traumatic stress disorder Establ ished Patient with Sarai Alberts [employer] 07/18/2024 Last Documented On 4 4:15PM ; [facility] [Z68.43 - Body mass index [B ID] 50.0-59.9, adult] assessment of body mass index Medical Established Patient with Denny Lomeli ACCOUNTING SYSTEMS ANALYST 07/18/2024 Last Documented On 4 1:56PM ; [facility] Bipolar I disorder, most rec ent episode, depressed - mild Medical Established Patient with Denny Lomeli ACCOUNTING SYSTEMS ANALYST 07/18/2024 Last Documented On 4 1:56PM ; [facility] Caries Medical Established Patient with Denny Armani ACCOUNTING SYSTEMS ANALYST 07/18/2024 Last Documented On 4 1:56PM ; [facility] Encounter for Immunization Medical Estab lished Patient with Denny Lomeli ACCOUNTING SYSTEMS ANALYST 07/18/2024 Last Documented On 4 1:56PM ; [facility] Type 2 diabetes mellitus wit hout complication Medical Established Patient with Denny Landonen ACCOUNTING SYSTEMS ANALYST 07/18/2024 Last Documented On 4 1:56PM ; [facility] Attention-deficit hyperactivity disorder Established Patient with Kinga Short [facility] 06/13/2024 Last Documented On 4 3:28PM ; [facility] Bipolar I disorder, most rec ent episode, depressed - mild BH Established Patient with Kinga Short [facility] 06/13/2024 Last Documented On 4 3:28PM ; [facility] Post-traumatic stress disorder Establ ished Patient with Kinga Short [facility] 06/13/2024 Last Documented On 4 3:28PM ; [facility] [E11.9 - Type 2 diabetes gloria litus without complications] type 2 diabetes mellitus Medical Established Patient with Denny Lomeli ACCOUNTING SYSTEMS ANALYST 06/13/2024 Last Documented On 4 7:36PM ; [facility] [F41.1 - Generalized anxiety disorder] generalized anxiety disorder Medical Established Patient with Denny Lomeli ACCOUNTING SYSTEMS ANALYST 06/13/2024 Last Documented On 4 7:36PM ; [facility] [I10 - Essential (primary) hypertension] essential hypertension Medical Established Patient with Denny Lomeli ACCOUNTING SYSTEMS ANALYST 06/13/2024 Last Documented On 4 7:36PM ; [facility] [N94.6 - Dysmenorrhea, unspe cified] dysmenorrhea Medical Established Patient with Denny Lomeli ACCOUNTING SYSTEMS ANALYST 06/13/2024 Last Documented On 4 7:36PM ; [facility] [Z68.43 - Body mass index [B ID] 50.0-59.9, adult] assessment of body mass index Medical Established Patient with Denny Lomeli ACCOUNTING SYSTEMS ANALYST 06/13/2024 Last Documented On 4 7:36PM ; [facility] Encounter for Immunization Medical Estab lished Patient with Denny Lomeli ACCOUNTING SYSTEMS ANALYST 06/13/2024 Last Documented On 4 7:36PM ; [facility] Venipuncture was performed Medical Estab lished Patient with Denny Lomeli ACCOUNTING SYSTEMS ANALYST 06/13/2024 Last Documented On 4 7:36PM ; [facility] Attention-deficit hyperactivity disorder Established Patient with Kinga Short [facility] 04/10/2024 Last Documented On 4 10:10AM ; [facility] Bipolar I disorder, most rec ent episode, depressed - mild Established Patient with Kinga Short [facility] 04/10/2024 Last Documented On 4 10:10AM ; [facility] Post-traumatic stress disorder Establ ished Patient with Kinga Short [facility] 04/10/2024 Last Documented On 4 10:10AM ; [facility] [D64.9 - Anemia, unspecified] anemia Med ical Established Patient with Denny Lomeli ACCOUNTING SYSTEMS ANALYST 04/10/2024 Last Documented On 4 6:51PM ; [facility] [Z68.43 - Body mass index [B ID] 50.0-59.9, adult] assessment of body mass index Medical Established Patient with Denny Lomeli ACCOUNTING SYSTEMS ANALYST 04/10/2024 Last Documented On 4 6:51PM ; [facility] Bipolar affective disorder, current episode depressed, mild Established Patient with Kinga Short [facility] 01/17/2024 Last Documented On 4 5:16PM ; [facility] Post-traumatic stress disorder Establ ished Patient with Kinga Short [facility] 01/17/2024 Last Documented On 4 5:16PM ; [facility] Undifferentiated attention d eficit disorder Established Patient with Kinga Short [facility] 01/17/2024 Last Documented On 4 5:16PM ; [facility] Visit for: screening for disorder BH Est ablished Patient with Kinga Bourgeois [facility] 01/17/2024 Last Documented On 4 5:16PM ; [facility] [Z68.43 - Body mass index [B ID] 50.0-59.9, adult] assessment of body mass index Medical Established Patient with Denny Lomeli ACCOUNTING SYSTEMS ANALYST 01/17/2024 Last Documented On 4 7:50PM ; [facility] Attention-deficit hyperactivity disorder Medical Established Patient with Denny Lomeli ACCOUNTING SYSTEMS ANALYST 01/17/2024 Last Documented On 4 7:50PM ; [facility] Diabetes Risk Test Score was three score 01/17/2024 Medical Established Patient with Denny Lomeli ACCOUNTING SYSTEMS ANALYST 01/17/2024 Last Documented On 4 7:50PM ; [facility] Visit for: screening for STD Medical Est ablished Patient with Denny Lomeli ACCOUNTING SYSTEMS ANALYST 01/17/2024 Last Documented On 4 7:50PM ; [facility] [Z68.32 - Body mass index [B ID] 32.0-32.9, adult] assessment of body mass index Medical Established Patient with Denny Lomeli ACCOUNTING SYSTEMS ANALYST 05/10/2023 Last Documented On 3 6:01PM ; [facility] Borderline personality disorder Medical Established Patient with Dennyartem Lomeli ACCOUNTING SYSTEMS ANALYST 05/10/2023 Last Documented On 3 6:01PM ; [facility] Screening for diabetes mellitus Medical Established Patient with Dennyartem Lomeli ACCOUNTING SYSTEMS ANALYST 05/10/2023 Last Documented On 3 6:01PM ; [facility] Assessment of body mass index Medical Es tablished Patient with Dennyartem Lomeli ACCOUNTING SYSTEMS ANALYST 08/12/2022 Last Documented On 2 2:45PM ; [facility] Bipolar affective disorder, current episode manic Telebehavioral Health with Belkis Velarde [facility] 06/16/2022 Last Documented On 2 3:22PM ; [facility] Bipolar affective disorder, current episode manic Established Patient with Belkis Velarde [facility] 06/15/2022 Last Documented On 2 2:28PM ; [facility] Bipolar affective disorder, current episode depressed, severe with psychosis Telebehavioral Health with Belkis Velarde [facility] 06/15/2022 Last Documented On 2 3:29PM ; [facility] Assessment of body mass inde x [Body mass index [BMI] 50.0-59.9, adult] Open Access - Established with Leah Monique ACCOUNTING SYSTEMS ANALYST 06/15/2022 Last Documented On 2 9:36AM ; [facility] Bipolar I disorder, most rec ent episode, manic Open Access - Established with Leah Monique ACCOUNTING SYSTEMS ANALYST 06/15/2022 Last Documented On 2 9:36AM ; [facility] Post-traumatic stress disorder BH Establ ished Patient with Belkis Evlarde [facility] 06/08/2022 Last Documented On 2 3:20PM ; [facility] No cough Medical Established Patient with Dennyartem Lomeli ACCOUNTING SYSTEMS ANALYST 06/08/2022 Last Documented On 2 4:04PM ; [facility] Z68.43 - Body mass index [BM I] 50.0-59.9, adult Medical Established Patient with Denny Armani ACCOUNTING SYSTEMS ANALYST 06/08/2022 Last Documented On 2 4:04PM ; [facility] Borderline personality disor kyree Pt reported hx of sx/dx Established Patient with Belkis Velarde [facility] 05/27/2022 Last Documented On 2 4:08PM ; [facility] Assessment of body mass inde x [Body mass index [BMI] 50.0-59.9, adult] Open Access - Established with Leah Monique [facility] 05/27/2022 Last Documented On 2 7:41PM ; [facility] Diabetes Risk Test Score was three score 05/27/2022 Open Access - Established with Leah Monique [facility] 05/27/2022 Last Documented On 2 7:41PM ; [facility] Bipolar I disorder, most rec ent episode, manic Established [facility] 07/[facility]/2021 Last Documented On 1 1:35AM ; [facility] Borderline personality disorder Estab lished Patient [facility] 07/15/2021 Last Documented On 1 1:35AM ; [facility] Post-traumatic stress disorder Establ ished Patient with [facility]21 Last Documented On 1 1:35AM ; [facility] Assessment of visit for: scr eening for human immunodeficiency virus Medical Established Patient with Denny Armani ACCOUNTING SYSTEMS ANALYST 07/15/2021 Last Documented On 1 2:56PM ; [facility] Nicotine dependence Medical Established Patient with Denny Armani [facility] 07/15/2021 Last Documented On 1 2:56PM ; [facility] Tachycardia Medical Established Patient with Denny Armani [facility] 07/15/2021 Last Documented On 1 2:56PM ; [facility] Z68.43 - Body mass index [BM I] 50.0-59.9, adult Medical Established Patient with Denny Armani ACCOUNTING SYSTEMS ANALYST 07/15/2021 Last Documented On 1 2:56PM ; [facility] Bipolar I disorder, most rec ent episode, manic Established Patient with Kinga Short [facility] 06/17/2021 Last Documented On 1 10:17AM ; [facility] Borderline personality disor kyree per patient reported history Established Patient with Kinga Short [facility] 06/17/2021 Last Documented On 1 10:17AM ; [facility] Nicotine dependence BH Established Patient with Kinga Short [facility] 06/17/2021 Last Documented On 1 10:17AM ; [facility] Post-traumatic stress disorder Establ ished Patient with Kinga Short [facility] 06/17/2021 Last Documented On 1 10:17AM ; [facility] Body mass index Medical Established Patient with Denny Armani ACCOUNTING SYSTEMS ANALYST 06/17/2021 Last Documented On 1 5:23PM ; [facility] Morbid obesity Medical Established Patient with Denny Armani ACCOUNTING SYSTEMS ANALYST 06/17/2021 Last Documented On 1 5:23PM ; [facility] Nicotine dependence uncomplicated Medica l Established Patient with Denny Armani ACCOUNTING SYSTEMS ANALYST 06/17/2021 Last Documented On 1 5:23PM ; [facility] Z68.42 - Body mass index [BM I] 45.0-49.9, adult Medical Established Patient with Denny Armani ACCOUNTING SYSTEMS ANALYST 06/17/2021 Last Documented On 1 5:23PM ; [facility] 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 disorders 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 ACCOUNTING SYSTEMS ANALYST 05/15/2021 Last Documented On 1 7:49AM ; [facility] Mood disorders, NOS per blaze ent reported history Established Patient with Kinga Short [facility] 04/23/2021 Last Documented On 1 7:15PM ; [facility] Post-traumatic stress disorder Establ ished Patient with Kinga Short [facility] 04/23/2021 Last Documented On 1 7:15PM ; [facility] Morbid obesity Medical Established Patient with Denny Armani ACCOUNTING SYSTEMS ANALYST 04/23/2021 Last Documented On 1 12:31PM ; [facility] Otitis externa Medical Established Patient with Denny Armani ACCOUNTING SYSTEMS ANALYST 04/23/2021 Last Documented On 1 12:31PM ; [facility] Z68.42 - Body mass index [BM I] 45.0-49.9, adult Medical Established Patient with Denny Armani ACCOUNTING SYSTEMS ANALYST 04/23/2021 Last Documented On 1 12:31PM ; [facility] Post-traumatic stress disorder Establ ished Patient with Kinga Short [facility] 04/01/2021 Last Documented On 1 10:05PM ; [facility] Morbid obesity Medical Established Patient with Denny Armani ACCOUNTING SYSTEMS ANALYST 04/01/2021 Last Documented On 1 4:45PM ; [facility] Z68.42 - Body mass index [BM I] 45.0-49.9, adult Medical Established Patient with Denny Armani ACCOUNTING SYSTEMS ANALYST 04/01/2021 Last Documented On 1 4:45PM ; [facility] Post-traumatic stress disorder Establ ished Patient with Kinga Short [facility] 03/17/2021 Last Documented On 1 11:59AM ; [facility] Assessment of visit for: scr eening for human immunodeficiency virus Medical New Patient with Denny Armani ACCOUNTING SYSTEMS ANALYST 03/17/2021 Last Documented On 1 4:06PM ; [facility] Diabetes Risk Test Score was one score 03/17/2021 Medical New Patient with Denny Armani ACCOUNTING SYSTEMS ANALYST 03/17/2021 Last Documented On 1 4:06PM ; [facility] Hypertension Medical New Patient with Denny C chas ACCOUNTING SYSTEMS ANALYST 03/17/2021 Last Documented On 1 4:06PM ; [facility] Morbid obesity Medical New Patient with Denny C chas ACCOUNTING SYSTEMS ANALYST 03/17/2021 Last Documented On 1 4:06PM ; [facility] Post-traumatic stress disorder Medical New Patie nt with Denny Armani ACCOUNTING SYSTEMS ANALYST 03/17/2021 Last Documented On 1 4:06PM ; [facility] Z68.42 - Body mass index [BM I] 45.0-49.9, adult Medical New Patient with Denny Armani ACCOUNTING SYSTEMS ANALYST 03/17/2021 Last Documented On 1 4:06PM ; [facility] Work Phone: 1(744) 444-801310-07-2024 Progress note* Progress note Date Encounter Last Documented by 07/29/2024 Chart Update Last documented on 07/31/2024; 2:06 PM, Denny Lomeli CNP; [facility] Active Problems & Conditions - F90.9 - [...] EndCited Care Team - Denny Lomeli CNP [facility]10-01-2024 Progress note* Progress note Date Encounter Last Documented by 07/23/2024 Chart Update Last documented on 07/29/2024; 12:06 PM, Denny Lomeli CNP; [facility] Active Problems & Conditions - F90.9 - [...] disorders Care Team - Denny Lomeli CNP [facility]09-30-2024 History general Narrative - Reported Includes: Medical History in patient's chart Description Last Updated No Safety Measures 07/22/2024 Last Documented On 4 4:15PM ; [facility] POTS 04/10/2024 Last Documented On 4 6:51PM ; [facility] 0 previous live (s) 01/17/2024 Last Documented On 4 7:50PM ; [facility] Previously 1 time(s) 01/17/2024 Last Documented On 4 7:50PM ; [facility] Recent immunization for flu 01/17/2024 Last Documented On 4 7:50PM ; [facility] Has sex without a condom 06/08/2022 Last Documented On 2 4:04PM ; [facility] Not planning to have a baby in the next 12 months 06/08/2022 Last Documented On 2 4:04PM ; [facility] Partners sexually transmitted infection status known 06/08/2022 Last Documented On 2 4:04PM ; [facility] No previous hospitalizations 06/08/2022 Last Documented On 2 4:04PM ; [facility] Chronic illness 05/17/2021 Last Documented On 1 7:49AM ; [facility] Exposure to COVID-19 04/23/2021 Last Documented On 1 12:31PM ; [facility] History of gynecologic disorder 03/17/20 21 Last Documented On 1 4:06PM ; [facility] History of Polycystic Ovarian Syndrome ( PCOS) 03/17/2021 Last Documented On 1 4:06PM ; [facility] History of anxiety disorder NOS 03/17/20 21 Last Documented On 1 4:06PM ; [facility] History of migraine headache 03/17/2021 Last Documented On 1 4:06PM ; [facility] History of psychiatric disorders biopola r disorder 03/17/2021 Last Documented On 1 4:06PM ; [facility] Work Phone: 1(177) 438-208709-30-2024 History general Narrative - Reported Includes: Medical History in patient's chart Description Last Updated No Safety Measures 07/22/2024 Last Documented On 4 4:15PM ; [facility] Consent form on file for procedure 07/18 Last Documented On 4 1:56PM ; [facility] POTS 04/10/2024 Last Documented On 4 6:51PM ; [facility] 0 previous live (s) 01/17/2024 Last Documented On 4 7:50PM ; [facility] Previously 1 time(s) 01/17/2024 Last Documented On 4 7:50PM ; [facility] Recent immunization for flu 01/17/2024 Last Documented On 4 7:50PM ; [facility] Has sex without a condom 06/08/2022 Last Documented On 2 4:04PM ; [facility] Not planning to have a baby in the next 12 months 06/08/2022 Last Documented On 2 4:04PM ; [facility] Partners sexually transmitted infection status known 06/08/2022 Last Documented On 2 4:04PM ; [facility] No previous hospitalizations 06/08/2022 Last Documented On 2 4:04PM ; [facility] Chronic illness 05/17/2021 Last Documented On 1 7:49AM ; [facility] Exposure to COVID-19 04/23/2021 Last Documented On 1 12:31PM ; [facility] History of gynecologic disorder 03/17/20 21 Last Documented On 1 4:06PM ; [facility] History of Polycystic Ovarian Syndrome ( PCOS) 03/17/2021 Last Documented On 1 4:06PM ; [facility] History of anxiety disorder NOS 03/17/20 21 Last Documented On 1 4:06PM ; [facility] History of migraine headache 03/17/2021 Last Documented On 1 4:06PM ; [facility] History of psychiatric disorders biopola r disorder 03/17/2021 Last Documented On 1 4:06PM ; [facility] Work Phone: 1(920) 379-679709-30-2024 History general Narrative - Reported Includes: Medical History in patient's chart Description Last Updated No Safety Measures 07/22/2024 Last Documented On 4 4:15PM ; [facility] Consent form on file for procedure 07/18 Last Documented On 4 1:56PM ; [facility] POTS 04/10/2024 Last Documented On 4 6:51PM ; [facility] 0 previous live (s) 01/17/2024 Last Documented On 4 7:50PM ; [facility] Previously 1 time(s) 01/17/2024 Last Documented On 4 7:50PM ; [facility] Recent immunization for flu 01/17/2024 Last Documented On 4 7:50PM ; [facility] Has sex without a condom 06/08/2022 Last Documented On 2 4:04PM ; [facility] Not planning to have a baby in the next 12 months 06/08/2022 Last Documented On 2 4:04PM ; [facility] Partners sexually transmitted infection status known 06/08/2022 Last Documented On 2 4:04PM ; [facility] No previous hospitalizations 06/08/2022 Last Documented On 2 4:04PM ; [facility] Chronic illness 05/17/2021 Last Documented On 1 7:49AM ; [facility] Exposure to COVID-19 04/23/2021 Last Documented On 1 12:31PM ; [facility] History of gynecologic disorder 03/17/20 21 Last Documented On 1 4:06PM ; [facility] History of Polycystic Ovarian Syndrome ( PCOS) 03/17/2021 Last Documented On 1 4:06PM ; [facility] History of anxiety disorder NOS 03/17/20 21 Last Documented On 1 4:06PM ; [facility] History of migraine headache 03/17/2021 Last Documented On 1 4:06PM ; [facility] History of psychiatric disorders biopola r disorder 03/17/2021 Last Documented On 1 4:06PM ; [facility] Work Phone: 1(114) 176-985209-30-2024 History general Narrative - Reported Includes: Medical History in patient's chart Description Last Updated No Safety Measures 07/22/2024 Last Documented On 4 4:15PM ; [facility] Consent form on file for procedure 07/18 Last Documented On 4 2:09PM ; [facility] POTS 04/10/2024 Last Documented On 4 6:51PM ; [facility] 0 previous live (s) 01/17/2024 Last Documented On 4 7:50PM ; [facility] Previously 1 time(s) 01/17/2024 Last Documented On 4 7:50PM ; [facility] Recent immunization for flu 01/17/2024 Last Documented On 4 7:50PM ; [facility] Has sex without a condom 06/08/2022 Last Documented On 2 4:04PM ; [facility] Not planning to have a baby in the next 12 months 06/08/2022 Last Documented On 2 4:04PM ; [facility] Partners sexually transmitted infection status known 06/08/2022 Last Documented On 2 4:04PM ; [facility] No previous hospitalizations 06/08/2022 Last Documented On 2 4:04PM ; [facility] Chronic illness 05/17/2021 Last Documented On 1 7:49AM ; [facility] Exposure to COVID-19 04/23/2021 Last Documented On 1 12:31PM ; [facility] History of gynecologic disorder 03/17/20 21 Last Documented On 1 4:06PM ; [facility] History of Polycystic Ovarian Syndrome ( PCOS) 03/17/2021 Last Documented On 1 4:06PM ; [facility] History of anxiety disorder NOS 03/17/20 21 Last Documented On 1 4:06PM ; [facility] History of migraine headache 03/17/2021 Last Documented On 1 4:06PM ; [facility] History of psychiatric disorders biopola r disorder 03/17/2021 Last Documented On 1 4:06PM ; [facility] Work Phone: 1(832) 548-995809-30-2024 History general Narrative - Reported Includes: Medical History in patient's chart Description Last Updated No Safety Measures 07/22/2024 Last Documented On 4 4:15PM ; [facility] Consent form on file for procedure 07/18 Last Documented On 4 1:56PM ; [facility] POTS 04/10/2024 Last Documented On 4 6:51PM ; [facility] 0 previous live (s) 01/17/2024 Last Documented On 4 7:50PM ; [facility] Previously 1 time(s) 01/17/2024 Last Documented On 4 7:50PM ; [facility] Recent immunization for flu 01/17/2024 Last Documented On 4 7:50PM ; [facility] Has sex without a condom 06/08/2022 Last Documented On 2 4:04PM ; [facility] Not planning to have a baby in the next 12 months 06/08/2022 Last Documented On 2 4:04PM ; [facility] Partners sexually transmitted infection status known 06/08/2022 Last Documented On 2 4:04PM ; [facility] No previous hospitalizations 06/08/2022 Last Documented On 2 4:04PM ; [facility] Chronic illness 05/17/2021 Last Documented On 1 7:49AM ; [facility] Exposure to COVID-19 04/23/2021 Last Documented On 1 12:31PM ; [facility] History of gynecologic disorder 03/17/20 21 Last Documented On 1 4:06PM ; [facility] History of Polycystic Ovarian Syndrome ( PCOS) 03/17/2021 Last Documented On 1 4:06PM ; [facility] History of anxiety disorder NOS 03/17/20 21 Last Documented On 1 4:06PM ; [facility] History of migraine headache 03/17/2021 Last Documented On 1 4:06PM ; [facility] History of psychiatric disorders biopola r disorder 03/17/2021 Last Documented On 1 4:06PM ; [facility] Work Phone: 1(455) 186-191109-26-2024 Evaluation note Includes: Assessments for all patient encounters Findings Encounter Date Attention-deficit hyperactiv ity disorder Established Patient with Sarai Alberts [employer] SALESPERSON 07/18/2024 Last Documented On 4 4:15PM ; [facility] Bipolar I disorder, most rec ent episode, depressed - mild Established Patient with Sarai Alberts [employer] SAL[employer] 07/18/2024 Last Documented On 4 4:15PM ; [facility] Nicotine dependence Established Patient with Sarai Alberts [employer] SAL[employer] 07/18/2024 Last Documented On 4 4:15PM ; [facility] Post-traumatic stress disorder Establ ished Patient with Sarai Alberts [employer] SALESPERSON 07/18/2024 Last Documented On 4 4:15PM ; [facility] [Z68.43 - Body mass index [B ID] 50.0-59.9, adult] assessment of body mass index Medical Established Patient with Denny Lomeli ACCOUNTING SYSTEMS ANALYST 07/18/2024 Last Documented On 4 5:46PM ; [facility] Bipolar I disorder, most rec ent episode, depressed - mild Medical Established Patient with Denny Armani ACCOUNTING SYSTEMS ANALYST 07/18/2024 Last Documented On 4 5:46PM ; [facility] Caries Medical Established Patient with Denny Armani ACCOUNTING SYSTEMS ANALYST 07/18/2024 Last Documented On 4 5:46PM ; [facility] Encounter for Immunization Medical Estab lished Patient with Denny Armani ACCOUNTING SYSTEMS ANALYST 07/18/2024 Last Documented On 4 5:46PM ; [facility] Type 2 diabetes mellitus wit hout complication Medical Established Patient with Denny Armani ACCOUNTING SYSTEMS ANALYST 07/18/2024 Last Documented On 4 5:46PM ; [facility] Attention-deficit hyperactivity disorder Established Patient with Kinga Short [facility] 06/13/2024 Last Documented On 4 3:28PM ; [facility] Bipolar I disorder, most rec ent episode, depressed - mild BH Established Patient with Kinga Short [facility]IS[facility] 06/13/2024 Last Documented On 4 3:28PM ; [facility] Post-traumatic stress disorder Establ ished Patient with Kinga Short LISWS 06/13/2024 Last Documented On 4 3:28PM ; [facility] [E11.9 - Type 2 diabetes gloria litus without complications] type 2 diabetes mellitus Medical Established Patient with Denny Lomeli ACCOUNTING SYSTEMS ANALYST 06/13/2024 Last Documented On 4 7:36PM ; [facility] [F41.1 - Generalized anxiety disorder] generalized anxiety disorder Medical Established Patient with Denny Lomeli ACCOUNTING SYSTEMS ANALYST 06/13/2024 Last Documented On 4 7:36PM ; [facility] [I10 - Essential (primary) hypertension] essential hypertension Medical Established Patient with Denny Lomeli ACCOUNTING SYSTEMS ANALYST 06/13/2024 Last Documented On 4 7:36PM ; [facility] [N94.6 - Dysmenorrhea, unspe cified] dysmenorrhea Medical Established Patient with Denny Lomeli ACCOUNTING SYSTEMS ANALYST 06/13/2024 Last Documented On 4 7:36PM ; [facility] [Z68.43 - Body mass index [B ID] 50.0-59.9, adult] assessment of body mass index Medical Established Patient with Denny Lomeli ACCOUNTING SYSTEMS ANALYST 06/13/2024 Last Documented On 4 7:36PM ; [facility] Encounter for Immunization Medical Estab lished Patient with Denny Lomeli ACCOUNTING SYSTEMS ANALYST 06/13/2024 Last Documented On 4 7:36PM ; [facility] Venipuncture was performed Medical Estab lished Patient with Denny Lomeli ACCOUNTING SYSTEMS ANALYST 06/13/2024 Last Documented On 4 7:36PM ; [facility] Attention-deficit hyperactivity disorder Established Patient with Kinga Short LIS[facility] 04/10/2024 Last Documented On 4 10:10AM ; [facility] Bipolar I disorder, most rec ent episode, depressed - mild Established Patient with Kinga Short LISWS 04/10/2024 Last Documented On 4 10:10AM ; [facility] Post-traumatic stress disorder Establ ished Patient with Kinga Short LISWS 04/10/2024 Last Documented On 4 10:10AM ; [facility] [D64.9 - Anemia, unspecified] anemia Med ical Established Patient with Dennyartem Lomeli ACCOUNTING SYSTEMS ANALYST 04/10/2024 Last Documented On 4 6:51PM ; [facility] [Z68.43 - Body mass index [B ID] 50.0-59.9, adult] assessment of body mass index Medical Established Patient with Denny Lomeli ACCOUNTING SYSTEMS ANALYST 04/10/2024 Last Documented On 4 6:51PM ; [facility] Bipolar affective disorder, current episode depressed, mild Established Patient with Kinga Short LISWS 01/17/2024 Last Documented On 4 5:16PM ; [facility] Post-traumatic stress disorder Establ ished Patient with Kinga Short LISWS 01/17/2024 Last Documented On 4 5:16PM ; [facility] Undifferentiated attention d eficit disorder Established Patient with Kinga Short LISWS 01/17/2024 Last Documented On 4 5:16PM ; [facility] Visit for: screening for disorder Est ablished Patient with Kinga Short LISWS 01/17/2024 Last Documented On 4 5:16PM ; [facility] [Z68.43 - Body mass index [B ID] 50.0-59.9, adult] assessment of body mass index Medical Established Patient with Denny Lomeli ACCOUNTING SYSTEMS ANALYST 01/17/2024 Last Documented On 4 7:50PM ; [facility] Attention-deficit hyperactivity disorder Medical Established Patient with Denny Lomeli ACCOUNTING SYSTEMS ANALYST 01/17/2024 Last Documented On 4 7:50PM ; [facility] Diabetes Risk Test Score was three score 01/17/2024 Medical Established Patient with Denny Lomeli ACCOUNTING SYSTEMS ANALYST 01/17/2024 Last Documented On 4 7:50PM ; [facility] Visit for: screening for STD Medical Est ablished Patient with Denny Lomeli ACCOUNTING SYSTEMS ANALYST 01/17/2024 Last Documented On 4 7:50PM ; [facility] [Z68.32 - Body mass index [B ID] 32.0-32.9, adult] assessment of body mass index Medical Established Patient with Denny Lomeli ACCOUNTING SYSTEMS ANALYST 05/10/2023 Last Documented On 3 6:01PM ; [facility] Borderline personality disorder Medical Established Patient with Denny Lomeli ACCOUNTING SYSTEMS ANALYST 05/10/2023 Last Documented On 3 6:01PM ; [facility] Screening for diabetes mellitus Medical Established Patient with Denny Lomeli [facility] 05/10/2023 Last Documented On 3 6:01PM ; [facility] Assessment of body mass index Medical Es tablished Patient with Denny Lomeli [facility] 08/12/2022 Last Documented On 2 2:45PM ; [facility] Bipolar affective disorder, current episode manic [facility]behavior[facility] with Belkisdionna Velarde [facility] 06/16/2022 Last Documented On 2 3:22PM ; [facility] Bipolar affective disorder, current episode manic Established Patient with Belkisdionna Velarde [facility] 06/15/2022 Last Documented On 2 2:28PM ; [facility] Bipolar affective disorder, current episode depressed, severe with psychosis [facility]behavior[facility] with Belkisdionna Velarde [facility] 06/15/2022 Last Documented On 2 3:29PM ; [facility] Assessment of body mass inde x [Body mass index [BMI] 50.0-59.9, adult] Open Access - Established with Leah Amaya [facility] 06/15/2022 Last Documented On 2 9:36AM ; [facility] Bipolar I disorder, most rec ent episode, manic Open Access - Established with Leah Monique ACCOUNTING SYSTEMS ANALYST 06/15/2022 Last Documented On 2 9:36AM ; [facility] Post-traumatic stress disorder BH Establ ished Patient with Belkisdionna Velarde [facility] 06/08/2022 Last Documented On 2 3:20PM ; [facility] No cough Medical Established Patient with Dennyartem Lomeli ACCOUNTING SYSTEMS ANALYST 06/08/2022 Last Documented On 2 4:04PM ; [facility] Z68.43 - Body mass index [BM I] 50.0-59.9, adult Medical Established Patient with Dennyartem Lomeli ACCOUNTING SYSTEMS ANALYST 06/08/2022 Last Documented On 2 4:04PM ; [facility] Borderline personality disor kyree Pt reported hx of sx/dx Established Patient with Belkis Velarde [facility] 05/27/2022 Last Documented On 2 4:08PM ; [facility] Assessment of body mass inde x [Body mass index [BMI] 50.0-59.9, adult] Open Access - Established with Leah Monique ACCOUNTING SYSTEMS ANALYST 05/27/2022 Last Documented On 2 7:41PM ; [facility] Diabetes Risk Test Score was three score 05/27/2022 Open Access - Established with Leah Monique ACCOUNTING SYSTEMS ANALYST 05/27/2022 Last Documented On 2 7:41PM ; [facility] Bipolar I disorder, most rec ent episode, manic Established Patient with Eufemia Mcneil [facility] 07/15/2021 Last Documented On 1 1:35AM ; [facility] Borderline personality disorder BH Estab lished Patient with Eufemia Mcneil [facility] 07/15/2021 Last Documented On 1 1:35AM ; [facility] Post-traumatic stress disorder BH Establ ished Patient with Eufemia Mcneil [facility] 07/15/2021 Last Documented On 1 1:35AM ; [facility] Assessment of visit for: lloyd strange for human immunodeficiency virus Medical Established Patient with Denny Lomeli ACCOUNTING SYSTEMS ANALYST 07/15/2021 Last Documented On 1 2:56PM ; [facility] Nicotine dependence Medical Established Patient with Denny Armani ACCOUNTING SYSTEMS ANALYST 07/15/2021 Last Documented On 1 2:56PM ; [facility] Tachycardia Medical Established Patient with Denny Armani ACCOUNTING SYSTEMS ANALYST 07/15/2021 Last Documented On 1 2:56PM ; [facility] Z68.43 - Body mass index [BM I] 50.0-59.9, adult Medical Established Patient with Denny Armani ACCOUNTING SYSTEMS ANALYST 07/15/2021 Last Documented On 1 2:56PM ; [facility] Bipolar I disorder, most rec ent episode, manic Established Patient with Kinga Short [facility] 06/17/2021 Last Documented On 1 10:17AM ; [facility] Borderline personality disor kyree per patient reported history Established Patient with Kinga Short [facility] 06/17/2021 Last Documented On 1 10:17AM ; [facility] Nicotine dependence Established Patient with Kinga Short [facility] 06/17/2021 Last Documented On 1 10:17AM ; [facility] Post-traumatic stress disorder Establ ished Patient with Kinga Short [facility] 06/17/2021 Last Documented On 1 10:17AM ; [facility] Body mass index Medical Established Patient with Denny Armani ACCOUNTING SYSTEMS ANALYST 06/17/2021 Last Documented On 1 5:23PM ; [facility] Morbid obesity Medical Established Patient with Denny Armani ACCOUNTING SYSTEMS ANALYST 06/17/2021 Last Documented On 1 5:23PM ; [facility] Nicotine dependence uncomplicated Medica l Established Patient with Denny Armani ACCOUNTING SYSTEMS ANALYST 06/17/2021 Last Documented On 1 5:23PM ; [facility] Z68.42 - Body mass index [BM I] 45.0-49.9, adult Medical Established Patient with Denny Armani ACCOUNTING SYSTEMS ANALYST 06/17/2021 Last Documented On 1 5:23PM ; [facility] 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 disorders 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 ACCOUNTING SYSTEMS ANALYST 05/15/2021 Last Documented On 1 7:49AM ; [facility] Mood disorders, NOS per blaze ent reported history Established Patient with Kinga Short LISWS 04/23/2021 Last Documented On 1 7:15PM ; [facility] Post-traumatic stress disorder Establ ished Patient with Kinga Short LISWS 04/23/2021 Last Documented On 1 7:15PM ; [facility] Morbid obesity Medical Established Patient with Denny Armani ACCOUNTING SYSTEMS ANALYST 04/23/2021 Last Documented On 1 12:31PM ; [facility] Otitis externa Medical Established Patient with Denny Armani ACCOUNTING SYSTEMS ANALYST 04/23/2021 Last Documented On 1 12:31PM ; [facility] Z68.42 - Body mass index [BM I] 45.0-49.9, adult Medical Established Patient with Denny Armani ACCOUNTING SYSTEMS ANALYST 04/23/2021 Last Documented On 1 12:31PM ; [facility] Post-traumatic stress disorder Establ ished Patient with Kinga Short LISWS 04/01/2021 Last Documented On 1 10:05PM ; [facility] Morbid obesity Medical Established Patient with Denny Armani ACCOUNTING SYSTEMS ANALYST 04/01/2021 Last Documented On 1 4:45PM ; [facility] Z68.42 - Body mass index [BM I] 45.0-49.9, adult Medical Established Patient with Denny Armani ACCOUNTING SYSTEMS ANALYST 04/01/2021 Last Documented On 1 4:45PM ; [facility] Post-traumatic stress disorder Establ ished Patient with Kinga Short LISWS 03/17/2021 Last Documented On 1 11:59AM ; [facility] Assessment of visit for: lloyd mcgillning for human immunodeficiency virus Medical New Patient with Dennyartem Landonen ACCOUNTING SYSTEMS ANALYST 03/17/2021 Last Documented On 1 4:06PM ; [facility] Diabetes Risk Test Score was one score 03/17/2021 Medical New Patient with Denny Armani ACCOUNTING SYSTEMS ANALYST 03/17/2021 Last Documented On 1 4:06PM ; [facility] Hypertension Medical New Patient with Denny Maryjo doherty ACCOUNTING SYSTEMS ANALYST 03/17/2021 Last Documented On 1 4:06PM ; [facility] Morbid obesity Medical New Patient with Denny C chas ACCOUNTING SYSTEMS ANALYST 03/17/2021 Last Documented On 1 4:06PM ; [facility] Post-traumatic stress disorder Medical New Patie nt with Denny Lomeli ACCOUNTING SYSTEMS ANALYST 03/17/2021 Last Documented On 1 4:06PM ; [facility] Z68.42 - Body mass index [BM I] 45.0-49.9, adult Medical New Patient with Denny Lomeli ACCOUNTING SYSTEMS ANALYST 03/17/2021 Last Documented On 1 4:06PM ; [facility] Work Phone: 1(463) 183-855309-26-2024 Evaluation note Includes: Assessments for all patient encounters Findings Encounter Date Attention-deficit hyperactiv ity disorder Established Patient with Sarai Alberts [facility] 07/18/2024 Last Documented On 4 4:15PM ; [facility] Bipolar I disorder, most rec ent episode, depressed - mild BH Established Patient with Sarai Alberts [facility] 07/18/2024 Last Documented On 4 4:15PM ; [facility] Nicotine dependence Established Patient with Sarai Alberts [facility] 07/18/2024 Last Documented On 4 4:15PM ; [facility] Post-traumatic stress disorder BH Establ ished Patient with Sarai Alberts [facility] 07/18/2024 Last Documented On 4 4:15PM ; [facility] [Z68.43 - Body mass index [B ID] 50.0-59.9, adult] assessment of body mass index Medical Established Patient with Denny Lomeli ACCOUNTING SYSTEMS ANALYST 07/18/2024 Last Documented On 4 1:56PM ; [facility] Bipolar I disorder, most rec ent episode, depressed - mild Medical Established Patient with Dennyartem Landonen ACCOUNTING SYSTEMS ANALYST 07/18/2024 Last Documented On 4 1:56PM ; [facility] Caries Medical Established Patient with Dennyartem Landonen ACCOUNTING SYSTEMS ANALYST 07/18/2024 Last Documented On 4 1:56PM ; [facility] Encounter for Immunization Medical Estab lished Patient with Denny Armani ACCOUNTING SYSTEMS ANALYST 07/18/2024 Last Documented On 4 1:56PM ; [facility] Type 2 diabetes mellitus wit hout complication Medical Established Patient with Denny Lomeli ACCOUNTING SYSTEMS ANALYST 07/18/2024 Last Documented On 4 1:56PM ; [facility] Attention-deficit hyperactivity disorder Established Patient with Kinga Short LIS[facility] 06/13/2024 Last Documented On 4 3:28PM ; [facility] Bipolar I disorder, most rec ent episode, depressed - mild Established Patient with Kinga Short LISWS 06/13/2024 Last Documented On 4 3:28PM ; [facility] Post-traumatic stress disorder Establ ished Patient with Kinga Short LISWS 06/13/2024 Last Documented On 4 3:28PM ; [facility] [E11.9 - Type 2 diabetes gloria litus without complications] type 2 diabetes mellitus Medical Established Patient with Denny Lomeli ACCOUNTING SYSTEMS ANALYST 06/13/2024 Last Documented On 4 7:36PM ; [facility] [F41.1 - Generalized anxiety disorder] generalized anxiety disorder Medical Established Patient with Denny Lomeli ACCOUNTING SYSTEMS ANALYST 06/13/2024 Last Documented On 4 7:36PM ; [facility] [I10 - Essential (primary) hypertension] essential hypertension Medical Established Patient with Denny Lomeli ACCOUNTING SYSTEMS ANALYST 06/13/2024 Last Documented On 4 7:36PM ; [facility] [N94.6 - Dysmenorrhea, unspe cified] dysmenorrhea Medical Established Patient with Denny Lomeli ACCOUNTING SYSTEMS ANALYST 06/13/2024 Last Documented On 4 7:36PM ; [facility] [Z68.43 - Body mass index [B ID] 50.0-59.9, adult] assessment of body mass index Medical Established Patient with Denny Lomeli ACCOUNTING SYSTEMS ANALYST 06/13/2024 Last Documented On 4 7:36PM ; [facility] Encounter for Immunization Medical Estab lished Patient with Dennyartem Lomeli ACCOUNTING SYSTEMS ANALYST 06/13/2024 Last Documented On 4 7:36PM ; [facility] Venipuncture was performed Medical Estab lished Patient with Denny Lomeli ACCOUNTING SYSTEMS ANALYST 06/13/2024 Last Documented On 4 7:36PM ; [facility] Attention-deficit hyperactivity disorder Established Patient with Kinga Short LISWS 04/10/2024 Last Documented On 4 10:10AM ; [facility] Bipolar I disorder, most rec ent episode, depressed - mild BH Established Patient with Kinga Short LISWS 04/10/2024 Last Documented On 4 10:10AM ; [facility] Post-traumatic stress disorder Establ ished Patient with Kinga Short LISWS 04/10/2024 Last Documented On 4 10:10AM ; [facility] [D64.9 - Anemia, unspecified] anemia Med ical Established Patient with Dennyartem Lomeli ACCOUNTING SYSTEMS ANALYST 04/10/2024 Last Documented On 4 6:51PM ; [facility] [Z68.43 - Body mass index [B ID] 50.0-59.9, adult] assessment of body mass index Medical Established Patient with Denny Lomeli ACCOUNTING SYSTEMS ANALYST 04/10/2024 Last Documented On 4 6:51PM ; [facility] Bipolar affective disorder, current episode depressed, mild Established Patient with Kinga Short LISWS 01/17/2024 Last Documented On 4 5:16PM ; [facility] Post-traumatic stress disorder Establ ished Patient with Kinga Short LISWS 01/17/2024 Last Documented On 4 5:16PM ; [facility] Undifferentiated attention d eficit disorder Established Patient with Kinga Short LISWS 01/17/2024 Last Documented On 4 5:16PM ; [facility] Visit for: screening for disorder Est ablished Patient with Kinga Short LISWS 01/17/2024 Last Documented On 4 5:16PM ; [facility] [Z68.43 - Body mass index [B ID] 50.0-59.9, adult] assessment of body mass index Medical Established Patient with Denny Lomeli ACCOUNTING SYSTEMS ANALYST 01/17/2024 Last Documented On 4 7:50PM ; [facility] Attention-deficit hyperactivity disorder Medical Established Patient with Denny Lomeli ACCOUNTING SYSTEMS ANALYST 01/17/2024 Last Documented On 4 7:50PM ; [facility] Diabetes Risk Test Score was three score 01/17/2024 Medical Established Patient with Denny Lomeli ACCOUNTING SYSTEMS ANALYST 01/17/2024 Last Documented On 4 7:50PM ; [facility] Visit for: screening for STD Medical Est ablished Patient with Denny Lomeli ACCOUNTING SYSTEMS ANALYST 01/17/2024 Last Documented On 4 7:50PM ; [facility] [Z68.32 - Body mass index [B ID] 32.0-32.9, adult] assessment of body mass index Medical Established Patient with Denny Lomeli ACCOUNTING SYSTEMS ANALYST 05/10/2023 Last Documented On 3 6:01PM ; [facility] Borderline personality disorder Medical Established Patient with Denny Lomeli ACCOUNTING SYSTEMS ANALYST 05/10/2023 Last Documented On 3 6:01PM ; [facility] Screening for diabetes mellitus Medical Established Patient with Denny Lomeli ACCOUNTING SYSTEMS ANALYST 05/10/2023 Last Documented On 3 6:01PM ; [facility] Assessment of body mass index Medical Es tablished Patient with Denny Lomeli ACCOUNTING SYSTEMS ANALYST 08/12/2022 Last Documented On 2 2:45PM ; [facility] Bipolar affective disorder, current episode manic Telebehavioral Health with Belkisdionna CoffeyVelarde [facility] 06/16/2022 Last Documented On 2 3:22PM ; [facility] Bipolar affective disorder, current episode manic Established Patient with Belkis Velarde [facility] 06/15/2022 Last Documented On 2 2:28PM ; [facility] Bipolar affective disorder, current episode depressed, severe with psychosis Telebehavioral Health with Belkis Velarde [facility] 06/15/2022 Last Documented On 2 3:29PM ; [facility] Assessment of body mass inde x [Body mass index [BMI] 50.0-59.9, adult] Open Access - Established with Leah Amaya ACCOUNTING SYSTEMS ANALYST 06/15/2022 Last Documented On 2 9:36AM ; [facility] Bipolar I disorder, most rec ent episode, manic Open Access - Established with Leah Monique ACCOUNTING SYSTEMS ANALYST 06/15/2022 Last Documented On 2 9:36AM ; [facility] Post-traumatic stress disorder Establ ished Patient with Belkis Velarde [facility] 06/08/2022 Last Documented On 2 3:20PM ; [facility] No cough Medical Established Patient with Denny Armani ACCOUNTING SYSTEMS ANALYST 06/08/2022 Last Documented On 2 4:04PM ; [facility] Z68.43 - Body mass index [BM I] 50.0-59.9, adult Medical Established Patient with Denny Armani ACCOUNTING SYSTEMS ANALYST 06/08/2022 Last Documented On 2 4:04PM ; [facility] Borderline personality disor kyree Pt reported hx of sx/dx Established Patient with Belkis Velarde [facility] 05/27/2022 Last Documented On 2 4:08PM ; [facility] Assessment of body mass inde x [Body mass index [BMI] 50.0-59.9, adult] Open Access - Established with Leah Monique ACCOUNTING SYSTEMS ANALYST 05/27/2022 Last Documented On 2 7:41PM ; [facility] Diabetes Risk Test Score was three score 05/27/2022 Open Access - Established with Leah Monique ACCOUNTING SYSTEMS ANALYST 05/27/2022 Last Documented On 2 7:41PM ; [facility] Bipolar I disorder, most rec ent episode, manic Established Patient with Eufemia Mcneil [facility] 07/15/2021 Last Documented On 1 1:35AM ; [facility] Borderline personality disorder Estab lished Patient with Eufemia Mcneil [facility] 07/15/2021 Last Documented On 1 1:35AM ; [facility] Post-traumatic stress disorder Establ ished Patient with Eufemia Mcneil [facility] 07/15/2021 Last Documented On 1 1:35AM ; [facility] Assessment of visit for: lloyd strange for human immunodeficiency virus Medical Established Patient with Denny Armani ACCOUNTING SYSTEMS ANALYST 07/15/2021 Last Documented On 1 2:56PM ; [facility] Nicotine dependence Medical Established Patient with Denny Armani ACCOUNTING SYSTEMS ANALYST 07/15/2021 Last Documented On 1 2:56PM ; [facility] Tachycardia Medical Established Patient with Denny Armani ACCOUNTING SYSTEMS ANALYST 07/15/2021 Last Documented On 1 2:56PM ; [facility] Z68.43 - Body mass index [BM I] 50.0-59.9, adult Medical Established Patient with Denny Armani ACCOUNTING SYSTEMS ANALYST 07/15/2021 Last Documented On 1 2:56PM ; [facility] Bipolar I disorder, most rec ent episode, manic Established Patient with Kinga Short LISWS 06/17/2021 Last Documented On 1 10:17AM ; [facility] Borderline personality disor kyree per patient reported history Established Patient with Kinga Short LISWS 06/17/2021 Last Documented On 1 10:17AM ; [facility] Nicotine dependence Established Patient with Kinga Short LISWS 06/17/2021 Last Documented On 1 10:17AM ; [facility] Post-traumatic stress disorder Establ ished Patient with Kinga Short LISWS 06/17/2021 Last Documented On 1 10:17AM ; [facility] Body mass index Medical Established Patient with Denny Armani ACCOUNTING SYSTEMS ANALYST 06/17/2021 Last Documented On 1 5:23PM ; [facility] Morbid obesity Medical Established Patient with Denny Armani ACCOUNTING SYSTEMS ANALYST 06/17/2021 Last Documented On 1 5:23PM ; [facility] Nicotine dependence uncomplicated Medica l Established Patient with Denny Armani ACCOUNTING SYSTEMS ANALYST 06/17/2021 Last Documented On 1 5:23PM ; [facility] Z68.42 - Body mass index [BM I] 45.0-49.9, adult Medical Established Patient with Denny Armani ACCOUNTING SYSTEMS ANALYST 06/17/2021 Last Documented On 1 5:23PM ; [facility] 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 disorders 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 CNP 05/15/2021 Last Documented On 1 7:49AM ; [facility] Mood disorders, NOS per blaze ent reported history Established Patient with Kinga Short LISWS 04/23/2021 Last Documented On 1 7:15PM ; [facility] Post-traumatic stress disorder BH Establ ished Patient with Kinga Short LISWS 04/23/2021 Last Documented On 1 7:15PM ; [facility] Morbid obesity Medical Established Patient with Denny Armani ACCOUNTING SYSTEMS ANALYST 04/23/2021 Last Documented On 1 12:31PM ; [facility] Otitis externa Medical Established Patient with Denny Armani ACCOUNTING SYSTEMS ANALYST 04/23/2021 Last Documented On 1 12:31PM ; [facility] Z68.42 - Body mass index [BM I] 45.0-49.9, adult Medical Established Patient with Denny Armani ACCOUNTING SYSTEMS ANALYST 04/23/2021 Last Documented On 1 12:31PM ; [facility] Post-traumatic stress disorder Establ ished Patient with Kinga Short LISWS 04/01/2021 Last Documented On 1 10:05PM ; [facility] Morbid obesity Medical Established Patient with Denny Armani ACCOUNTING SYSTEMS ANALYST 04/01/2021 Last Documented On 1 4:45PM ; [facility] Z68.42 - Body mass index [BM I] 45.0-49.9, adult Medical Established Patient with Denny Armani ACCOUNTING SYSTEMS ANALYST 04/01/2021 Last Documented On 1 4:45PM ; [facility] Post-traumatic stress disorder Establ ished Patient with Kinga Short LISWS 03/17/2021 Last Documented On 1 11:59AM ; [facility] Assessment of visit for: lloyd strange for human immunodeficiency virus Medical New Patient with Denny Lomeli ACCOUNTING SYSTEMS ANALYST 03/17/2021 Last Documented On 1 4:06PM ; [facility] Diabetes Risk Test Score was one score 03/17/2021 Medical New Patient with Denny Armani ACCOUNTING SYSTEMS ANALYST 03/17/2021 Last Documented On 1 4:06PM ; [facility] Hypertension Medical New Patient with Denny doherty ACCOUNTING SYSTEMS ANALYST 03/17/2021 Last Documented On 1 4:06PM ; [facility] Morbid obesity Medical New Patient with Denny doherty ACCOUNTING SYSTEMS ANALYST 03/17/2021 Last Documented On 1 4:06PM ; [facility] Post-traumatic stress disorder Medical New Patie nt with Denny Lomeli ACCOUNTING SYSTEMS ANALYST 03/17/2021 Last Documented On 1 4:06PM ; [facility] Z68.42 - Body mass index [BM I] 45.0-49.9, adult Medical New Patient with Denny Lomeli ACCOUNTING SYSTEMS ANALYST 03/17/2021 Last Documented On 1 4:06PM ; [facility] Work Phone: 1(779) 342-787209-26-2024 Progress note* Progress note Date Encounter Last Documented by 07/18/2024 Established Patient Last docu mented on 07/22/2024; 4:15 PM, Sarai MORRIS; [facility] Active Problems & Conditions - F90.9 - Attention-deficit Hyperactivity Disorder - F31.31 - Bipolar I Disorder, Most Recent Episode, Depressed Mild - E11.9 - Diabetes Mellitus Type 2 Without Complication - N94.6 - Dysmenorrhea - F43.10 - Post-traumatic Stress Disorder Subjective [facility] met with patient for mood and medications. [...] or get along? Very difficult. [facility]09-26-2024 Progress note* Progress note Date Encounter Last Documented by 07/18/2024 Medical Established Patient Last documented on 07/26/2024; 1:56 PM, Denny Lomeli CNP; [facility] Active Problems & Conditions - [...] symptoms persist, 1 days, 0 refills - [employer] Ultra In Vitro Strip USE ONE TEST [...] BP-Sitting L135/86 mmHg BP Cuff SizeLarge Pulse Rate-Qjuyets451 bpm Respiration Rate18 per min Temp-Oral97.6 F Rimxjv82 in [id number] lbs Body Mass Index57.2 kg/m2 Body Surface Area2.4 m2 Oxygen Syekkbwepv06 % Vital Signs: - Systolic blood pressure [...] the next year. Bottom of Document Illustration [facility]09-26-2024 Progress note* Progress note Date Encounter Last Documented by 07/18/2024 Medical Established Patient Last documented on 07/31/2024; 2:09 PM, Denny Lomeli CNP; [facility] Active Problems & Conditions - F90.9 - [...] BP-Sitting L135/86 mmHg BP Cuff SizeLarge Pulse Rate-Wwnkxmd305 bpm Respiration Rate18 per min Temp-Oral97.6 F Rqribp59 in Xwydei965 lbs Body Mass Index57.2 kg/m2 Body Surface Area2.4 m2 Oxygen Yvwcrljjpa56 % Vital Signs: - Systolic blood pressure [...] the next year. Bottom of Document Illustration [facility]09-26-2024 Reason for referral (narrative)* Date Encounter Description Provider Reason for Referral 07/18/24 Established Patient Sarai Aristeo [employer] R eferral To Mental Health Team 05/27/22 Established Patient Belkis Syd SOLORZANO CC-S Referral To Mental Health Team 03/17/21 Medical New Patient Denny Lomeli ACCOUNTING SYSTEMS ANALYST Refe rral To Mental Health Team [facility] Work Phone: 1(469) 672-286808-22-2024 Evaluation note Includes: Assessments for all patient encounters Findings Encounter Date Attention-deficit hyperactiv ity disorder Established Patient with Kinga Short LISWS 06/13/2024 Last Documented On 4 6:28PM ; [facility] Bipolar I disorder, most rec ent episode, depressed - mild Established Patient with Kinga Short LISWS 06/13/2024 Last Documented On 4 6:28PM ; [facility] Post-traumatic stress disorder Establ ished Patient with Kinga Short LISWS 06/13/2024 Last Documented On 4 6:28PM ; [facility] [E11.9 - Type 2 diabetes gloria litus without complications] type 2 diabetes mellitus Medical Established Patient with Denny Lomeli ACCOUNTING SYSTEMS ANALYST 06/13/2024 Last Documented On 4 7:36PM ; [facility] [F41.1 - Generalized anxiety disorder] generalized anxiety disorder Medical Established Patient with Denny Lomeli ACCOUNTING SYSTEMS ANALYST 06/13/2024 Last Documented On 4 7:36PM ; [facility] [I10 - Essential (primary) hypertension] essential hypertension Medical Established Patient with Denny Lomeli ACCOUNTING SYSTEMS ANALYST 06/13/2024 Last Documented On 4 7:36PM ; [facility] [N94.6 - Dysmenorrhea, unspe cified] dysmenorrhea Medical Established Patient with Denny Lomeli ACCOUNTING SYSTEMS ANALYST 06/13/2024 Last Documented On 4 7:36PM ; [facility] [Z68.43 - Body mass index [B ID] 50.0-59.9, adult] assessment of body mass index Medical Established Patient with Denny Lomeli ACCOUNTING SYSTEMS ANALYST 06/13/2024 Last Documented On 4 7:36PM ; [facility] Encounter for Immunization Medical Estab lished Patient with Denny Lomeli ACCOUNTING SYSTEMS ANALYST 06/13/2024 Last Documented On 4 7:36PM ; [facility] Venipuncture was performed Medical Estab lished Patient with Denny Lomeli ACCOUNTING SYSTEMS ANALYST 06/13/2024 Last Documented On 4 7:36PM ; [facility] Attention-deficit hyperactivity disorder Established Patient with Kinga Short LIS[facility] 04/10/2024 Last Documented On 4 10:10AM ; [facility] Bipolar I disorder, most rec ent episode, depressed - mild Established Patient with Kinga Short LIS[facility] 04/10/2024 Last Documented On 4 10:10AM ; [facility] Post-traumatic stress disorder Establ ished Patient with Kinga Short LIS[facility] 04/10/2024 Last Documented On 4 10:10AM ; [facility] [D64.9 - Anemia, unspecified] anemia Med ical Established Patient with Denny Lomeli ACCOUNTING SYSTEMS ANALYST 04/10/2024 Last Documented On 4 6:51PM ; [facility] [Z68.43 - Body mass index [B ID] 50.0-59.9, adult] assessment of body mass index Medical Established Patient with Denny Lomeli ACCOUNTING SYSTEMS ANALYST 04/10/2024 Last Documented On 4 6:51PM ; [facility] Bipolar affective disorder, current episode depressed, mild Established Patient with Kinga Short LIS[facility] 01/17/2024 Last Documented On 4 5:16PM ; [facility] Post-traumatic stress disorder Establ ished Patient with Kinga Short [facility]IS[facility] 01/17/2024 Last Documented On 4 5:16PM ; [facility] Undifferentiated attention d eficit disorder BH Established Patient with Kinga Bourgeois [facility] 01/17/2024 Last Documented On 4 5:16PM ; [facility] Visit for: screening for disorder BH Est ablished Patient with Kinga Bourgeois [facility] 01/17/2024 Last Documented On 4 5:16PM ; [facility] [Z68.43 - Body mass index [B ID] 50.0-59.9, adult] assessment of body mass index Medical Established Patient with Denny Lomeli ACCOUNTING SYSTEMS ANALYST 01/17/2024 Last Documented On 4 7:50PM ; [facility] Attention-deficit hyperactivity disorder Medical Established Patient with Denny Lomeli ACCOUNTING SYSTEMS ANALYST 01/17/2024 Last Documented On 4 7:50PM ; [facility] Diabetes Risk Test Score was three score 01/17/2024 Medical Established Patient with Denny Lomeli ACCOUNTING SYSTEMS ANALYST 01/17/2024 Last Documented On 4 7:50PM ; [facility] Visit for: screening for STD Medical Est ablished Patient with Denny Lomeli ACCOUNTING SYSTEMS ANALYST 01/17/2024 Last Documented On 4 7:50PM ; [facility] [Z68.32 - Body mass index [B ID] 32.0-32.9, adult] assessment of body mass index Medical Established Patient with Denny Lomeli ACCOUNTING SYSTEMS ANALYST 05/10/2023 Last Documented On 3 6:01PM ; [facility] Borderline personality disorder Medical Established Patient with Denny Lomeli ACCOUNTING SYSTEMS ANALYST 05/10/2023 Last Documented On 3 6:01PM ; [facility] Screening for diabetes mellitus Medical Established Patient with Denny Lomeli ACCOUNTING SYSTEMS ANALYST 05/10/2023 Last Documented On 3 6:01PM ; [facility] Assessment of body mass index Medical Es tablished Patient with Denny Lomeli ACCOUNTING SYSTEMS ANALYST 08/12/2022 Last Documented On 2 2:45PM ; [facility] Bipolar affective disorder, current episode manic Telebehavioral Health with Belkis Velarde [facility] 06/16/2022 Last Documented On 2 3:22PM ; [facility] Bipolar affective disorder, current episode manic Established Patient with Belkisdionna Velarde [facility] 06/15/2022 Last Documented On 2 2:28PM ; [facility] Bipolar affective disorder, current episode depressed, severe with psychosis Telebehavioral Health with Belkisdionna Velarde [facility] 06/15/2022 Last Documented On 2 3:29PM ; [facility] Assessment of body mass inde x [Body mass index [BMI] 50.0-59.9, adult] Open Access - Established with Leah Monique ACCOUNTING SYSTEMS ANALYST 06/15/2022 Last Documented On 2 9:36AM ; [facility] Bipolar I disorder, most rec ent episode, manic Open Access - Established with Leah Monique ACCOUNTING SYSTEMS ANALYST 06/15/2022 Last Documented On 2 9:36AM ; [facility] Post-traumatic stress disorder Establ ished Patient with Belkisdionna Velarde LPCC-S 06/08/2022 Last Documented On 2 3:20PM ; [facility] No cough Medical Established Patient with Denny Armani ACCOUNTING SYSTEMS ANALYST 06/08/2022 Last Documented On 2 4:04PM ; [facility] Z68.43 - Body mass index [BM I] 50.0-59.9, adult Medical Established Patient with Denny Armani ACCOUNTING SYSTEMS ANALYST 06/08/2022 Last Documented On 2 4:04PM ; [facility] Borderline personality disor kyree Pt reported hx of sx/dx Established Patient with Belkisdionna Velarde LPCC-S 05/27/2022 Last Documented On 2 4:08PM ; [facility] Assessment of body mass inde x [Body mass index [BMI] 50.0-59.9, adult] Open Access - Established with Leah Monique ACCOUNTING SYSTEMS ANALYST 05/27/2022 Last Documented On 2 7:41PM ; [facility] Diabetes Risk Test Score was three score 05/27/2022 Open Access - Established with Leah Monique ACCOUNTING SYSTEMS ANALYST 05/27/2022 Last Documented On 2 7:41PM ; [facility] Bipolar I disorder, most rec ent episode, manic Established Patient with Eufemia Mcneil LPCC-S 07/15/2021 Last Documented On 1 1:35AM ; [facility] Borderline personality disorder Estab lished Patient with Eufemia Mcneil LPCC-S 07/15/2021 Last Documented On 1 1:35AM ; [facility] Post-traumatic stress disorder Establ ished Patient with Eufemia Mcneil [facility] 07/15/2021 Last Documented On 1 1:35AM ; [facility] Assessment of visit for: lloyd strange for human immunodeficiency virus Medical Established Patient with Denny Armani ACCOUNTING SYSTEMS ANALYST 07/15/2021 Last Documented On 1 2:56PM ; [facility] Nicotine dependence Medical Established Patient with Denny Armani ACCOUNTING SYSTEMS ANALYST 07/15/2021 Last Documented On 1 2:56PM ; [facility] Tachycardia Medical Established Patient with Denny Armani ACCOUNTING SYSTEMS ANALYST 07/15/2021 Last Documented On 1 2:56PM ; [facility] Z68.43 - Body mass index [BM I] 50.0-59.9, adult Medical Established Patient with Denny Armani ACCOUNTING SYSTEMS ANALYST 07/15/2021 Last Documented On 1 2:56PM ; [facility] Bipolar I disorder, most rec ent episode, manic Established Patient with Kinga Short LISWS 06/17/2021 Last Documented On 1 10:17AM ; [facility] Borderline personality disor kyree per patient reported history Established Patient with Kinga Short LISWS 06/17/2021 Last Documented On 1 10:17AM ; [facility] Nicotine dependence Established Patient with Kinga Short LISWS 06/17/2021 Last Documented On 1 10:17AM ; [facility] Post-traumatic stress disorder Establ ished Patient with Kinga Short LISWS 06/17/2021 Last Documented On 1 10:17AM ; [facility] Body mass index Medical Established Patient with Denny Armani ACCOUNTING SYSTEMS ANALYST 06/17/2021 Last Documented On 1 5:23PM ; [facility] Morbid obesity Medical Established Patient with Denny Armani ACCOUNTING SYSTEMS ANALYST 06/17/2021 Last Documented On 1 5:23PM ; [facility] Nicotine dependence uncomplicated Medica l Established Patient with Denny Armani ACCOUNTING SYSTEMS ANALYST 06/17/2021 Last Documented On 1 5:23PM ; [facility] Z68.42 - Body mass index [BM I] 45.0-49.9, adult Medical Established Patient with Denny Armani ACCOUNTING SYSTEMS ANALYST 06/17/2021 Last Documented On 1 5:23PM ; [facility] 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 disorders 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 ACCOUNTING SYSTEMS ANALYST 05/15/2021 Last Documented On 1 7:49AM ; [facility] Mood disorders, NOS per blaze ent reported history Established Patient with Kinga Short LISWS 04/23/2021 Last Documented On 1 7:15PM ; [facility] Post-traumatic stress disorder Establ ished Patient with Kinga Short LISWS 04/23/2021 Last Documented On 1 7:15PM ; [facility] Morbid obesity Medical Established Patient with Denny Armani ACCOUNTING SYSTEMS ANALYST 04/23/2021 Last Documented On 1 12:31PM ; [facility] Otitis externa Medical Established Patient with Denny Armani ACCOUNTING SYSTEMS ANALYST 04/23/2021 Last Documented On 1 12:31PM ; [facility] Z68.42 - Body mass index [BM I] 45.0-49.9, adult Medical Established Patient with Denny Armani ACCOUNTING SYSTEMS ANALYST 04/23/2021 Last Documented On 1 12:31PM ; [facility] Post-traumatic stress disorder BH Establ ished Patient with Kinga Short LISWS 04/01/2021 Last Documented On 1 10:05PM ; [facility] Morbid obesity Medical Established Patient with Denny Armani ACCOUNTING SYSTEMS ANALYST 04/01/2021 Last Documented On 1 4:45PM ; [facility] Z68.42 - Body mass index [BM I] 45.0-49.9, adult Medical Established Patient with Denny Armani ACCOUNTING SYSTEMS ANALYST 04/01/2021 Last Documented On 1 4:45PM ; [facility] Post-traumatic stress disorder Establ ished Patient with Kinga Short LISWS 03/17/2021 Last Documented On 1 11:59AM ; [facility] Assessment of visit for: scr eening for human immunodeficiency virus Medical New Patient with Denny Armani ACCOUNTING SYSTEMS ANALYST 03/17/2021 Last Documented On 1 4:06PM ; [facility] Diabetes Risk Test Score was one score 03/17/2021 Medical New Patient with Dennyartem Lomeli ACCOUNTING SYSTEMS ANALYST 03/17/2021 Last Documented On 1 4:06PM ; [facility] Hypertension Medical New Patient with Dennyartem doherty ACCOUNTING SYSTEMS ANALYST 03/17/2021 Last Documented On 1 4:06PM ; [facility] Morbid obesity Medical New Patient with Denny Maryjo zamoraen ACCOUNTING SYSTEMS ANALYST 03/17/2021 Last Documented On 1 4:06PM ; [facility] Post-traumatic stress disorder Medical New Patie nt with Dennyartem Lomeli ACCOUNTING SYSTEMS ANALYST 03/17/2021 Last Documented On 1 4:06PM ; [facility] Z68.42 - Body mass index [BM I] 45.0-49.9, adult Medical New Patient with Dennyartem Lomeli ACCOUNTING SYSTEMS ANALYST 03/17/2021 Last Documented On 1 4:06PM ; [facility] Work Phone: 1(999) 166-680808-22-2024 Evaluation note Includes: Assessments for all patient encounters Findings Encounter Date Attention-deficit hyperactiv ity disorder Established Patient with Kinga Short LISWS 06/13/2024 Last Documented On 4 3:28PM ; [facility] Bipolar I disorder, most rec ent episode, depressed - mild Established Patient with Kinga Short LISWS 06/13/2024 Last Documented On 4 3:28PM ; [facility] Post-traumatic stress disorder Establ ished Patient with Kinga Short LISWS 06/13/2024 Last Documented On 4 3:28PM ; [facility] [E11.9 - Type 2 diabetes gloria litus without complications] type 2 diabetes mellitus Medical Established Patient with Denny Lomeli ACCOUNTING SYSTEMS ANALYST 06/13/2024 Last Documented On 4 7:36PM ; [facility] [F41.1 - Generalized anxiety disorder] generalized anxiety disorder Medical Established Patient with Denny Lomeli ACCOUNTING SYSTEMS ANALYST 06/13/2024 Last Documented On 4 7:36PM ; [facility] [I10 - Essential (primary) hypertension] essential hypertension Medical Established Patient with Denny Lomeli ACCOUNTING SYSTEMS ANALYST 06/13/2024 Last Documented On 4 7:36PM ; [facility] [N94.6 - Dysmenorrhea, unspe cified] dysmenorrhea Medical Established Patient with Denny Lomeli ACCOUNTING SYSTEMS ANALYST 06/13/2024 Last Documented On 4 7:36PM ; [facility] [Z68.43 - Body mass index [B ID] 50.0-59.9, adult] assessment of body mass index Medical Established Patient with Denyn Lomeli ACCOUNTING SYSTEMS ANALYST 06/13/2024 Last Documented On 4 7:36PM ; [facility] Encounter for Immunization Medical Estab lished Patient with Denny Lomeli ACCOUNTING SYSTEMS ANALYST 06/13/2024 Last Documented On 4 7:36PM ; [facility] Venipuncture was performed Medical Estab lished Patient with Denny Lomeli ACCOUNTING SYSTEMS ANALYST 06/13/2024 Last Documented On 4 7:36PM ; [facility] Attention-deficit hyperactivity disorder Established Patient with Kinga Short LISWS 04/10/2024 Last Documented On 4 10:10AM ; [facility] Bipolar I disorder, most rec ent episode, depressed - mild Established Patient with Kinga Short LISWS 04/10/2024 Last Documented On 4 10:10AM ; [facility] Post-traumatic stress disorder Establ ished Patient with Kinga Short LISWS 04/10/2024 Last Documented On 4 10:10AM ; [facility] [D64.9 - Anemia, unspecified] anemia Med ical Established Patient with Denny Lomeli ACCOUNTING SYSTEMS ANALYST 04/10/2024 Last Documented On 4 6:51PM ; [facility] [Z68.43 - Body mass index [B ID] 50.0-59.9, adult] assessment of body mass index Medical Established Patient with Denny Lomeli ACCOUNTING SYSTEMS ANALYST 04/10/2024 Last Documented On 4 6:51PM ; [facility] Bipolar affective disorder, current episode depressed, mild Established Patient with Kinga Bourgeois LISWS 01/17/2024 Last Documented On 4 5:16PM ; [facility] Post-traumatic stress disorder Establ ished Patient with Kinga Short LISWS 01/17/2024 Last Documented On 4 5:16PM ; [facility] Undifferentiated attention d eficit disorder Established Patient with Kinga Short LISWS 01/17/2024 Last Documented On 4 5:16PM ; [facility] Visit for: screening for disorder BH Est ablished Patient with Kinga Bourgeois LISWS 01/17/2024 Last Documented On 4 5:16PM ; [facility] [Z68.43 - Body mass index [B ID] 50.0-59.9, adult] assessment of body mass index Medical Established Patient with Denny Lomeli ACCOUNTING SYSTEMS ANALYST 01/17/2024 Last Documented On 4 7:50PM ; [facility] Attention-deficit hyperactivity disorder Medical Established Patient with Denny Lomeli ACCOUNTING SYSTEMS ANALYST 01/17/2024 Last Documented On 4 7:50PM ; [facility] Diabetes Risk Test Score was three score 01/17/2024 Medical Established Patient with Denny Lomeli ACCOUNTING SYSTEMS ANALYST 01/17/2024 Last Documented On 4 7:50PM ; [facility] Visit for: screening for STD Medical Est ablished Patient with Denny Lomeli ACCOUNTING SYSTEMS ANALYST 01/17/2024 Last Documented On 4 7:50PM ; [facility] [Z68.32 - Body mass index [B ID] 32.0-32.9, adult] assessment of body mass index Medical Established Patient with Denny Lomeli ACCOUNTING SYSTEMS ANALYST 05/10/2023 Last Documented On 3 6:01PM ; [facility] Borderline personality disorder Medical Established Patient with Denny Lomeli ACCOUNTING SYSTEMS ANALYST 05/10/2023 Last Documented On 3 6:01PM ; [facility] Screening for diabetes mellitus Medical Established Patient with Dennyartem Lomeli ACCOUNTING SYSTEMS ANALYST 05/10/2023 Last Documented On 3 6:01PM ; [facility] Assessment of body mass index Medical Es tablished Patient with Dennyartem Lomeli ACCOUNTING SYSTEMS ANALYST 08/12/2022 Last Documented On 2 2:45PM ; [facility] Bipolar affective disorder, current episode manic [facility] with Belkis Velarde LPCC-S 06/16/2022 Last Documented On 2 3:22PM ; [facility] Bipolar affective disorder, current episode manic Established Patient with Belkis Velarde [facility] 06/15/2022 Last Documented On 2 2:28PM ; [facility] Bipolar affective disorder, current episode depressed, severe with psychosis [facility] with Belkis Velarde [facility] 06/15/2022 Last Documented On 2 3:29PM ; [facility] Assessment of body mass inde x [Body mass index [BMI] 50.0-59.9, adult] Open Access - Established with Leah Monique ACCOUNTING SYSTEMS ANALYST 06/15/2022 Last Documented On 2 9:36AM ; [facility] Bipolar I disorder, most rec ent episode, manic Open Access - Established with Leah Monique ACCOUNTING SYSTEMS ANALYST 06/15/2022 Last Documented On 2 9:36AM ; [facility] Post-traumatic stress disorder BH Establ ished Patient with Belkis Velarde [facility]CC-S 06/08/2022 Last Documented On 2 3:20PM ; [facility] No cough Medical Established Patient with Dennyartem Lomeli ACCOUNTING SYSTEMS ANALYST 06/08/2022 Last Documented On 2 4:04PM ; [facility] Z68.43 - Body mass index [BM I] 50.0-59.9, adult Medical Established Patient with Denny Armani ACCOUNTING SYSTEMS ANALYST 06/08/2022 Last Documented On 2 4:04PM ; [facility] Borderline personality disor kyree Pt reported hx of sx/dx Established Patient with Belkis Velarde LPCC-S 05/27/2022 Last Documented On 2 4:08PM ; [facility] Assessment of body mass inde x [Body mass index [BMI] 50.0-59.9, adult] Open Access - Established with Leah Monique ACCOUNTING SYSTEMS ANALYST 05/27/2022 Last Documented On 2 7:41PM ; [facility] Diabetes Risk Test Score was three score 05/27/2022 Open Access - Established with Leah Monique ACCOUNTING SYSTEMS ANALYST 05/27/2022 Last Documented On 2 7:41PM ; [facility] Bipolar I disorder, most rec ent episode, manic [facility]21 Last Documented On 1 1:35AM ; [facility] Borderline personality disorder Estab lished Patient [facility] 07/15/2021 Last Documented On 1 1:35AM ; [facility] Post-traumatic stress disorder Establ ished Patient with Eufemia Mcneil [facility] 07/15/2021 Last Documented On 1 1:35AM ; [facility] Assessment of visit for: lloyd mcgillning for human immunodeficiency virus Medical Established Patient with Denny Armani ACCOUNTING SYSTEMS ANALYST 07/15/2021 Last Documented On 1 2:56PM ; [facility] Nicotine dependence Medical Established Patient with Denny Armani ACCOUNTING SYSTEMS ANALYST 07/15/2021 Last Documented On 1 2:56PM ; [facility] Tachycardia Medical Established Patient with Denny Armani ACCOUNTING SYSTEMS ANALYST 07/15/2021 Last Documented On 1 2:56PM ; [facility] Z68.43 - Body mass index [BM I] 50.0-59.9, adult Medical Established Patient with Denny Armani ACCOUNTING SYSTEMS ANALYST 07/15/2021 Last Documented On 1 2:56PM ; [facility] Bipolar I disorder, most rec ent episode, manic Established Patient with Kinga Short LISWS 06/17/2021 Last Documented On 1 10:17AM ; [facility] Borderline personality disor kyree per patient reported history Established Patient with Kinga Short LISWS 06/17/2021 Last Documented On 1 10:17AM ; [facility] Nicotine dependence BH Established Patient with Kinga Short LISWS 06/17/2021 Last Documented On 1 10:17AM ; [facility] Post-traumatic stress disorder Establ ished Patient with Kinga Short LISWS 06/17/2021 Last Documented On 1 10:17AM ; [facility] Body mass index Medical Established Patient with Denny Armani ACCOUNTING SYSTEMS ANALYST 06/17/2021 Last Documented On 1 5:23PM ; [facility] Morbid obesity Medical Established Patient with Denny Armani ACCOUNTING SYSTEMS ANALYST 06/17/2021 Last Documented On 1 5:23PM ; [facility] Nicotine dependence uncomplicated Medica l Established Patient with Denny Armani ACCOUNTING SYSTEMS ANALYST 06/17/2021 Last Documented On 1 5:23PM ; [facility] Z68.42 - Body mass index [BM I] 45.0-49.9, adult Medical Established Patient with Denny Armani ACCOUNTING SYSTEMS ANALYST 06/17/2021 Last Documented On 1 5:23PM ; [facility] 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 disorders 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 ACCOUNTING SYSTEMS ANALYST 05/15/2021 Last Documented On 1 7:49AM ; [facility] Mood disorders, NOS per blaze ent reported history Established Patient with Kinga Short LISWS 04/23/2021 Last Documented On 1 7:15PM ; [facility] Post-traumatic stress disorder Establ ished Patient with Kinga Short LISWS 04/23/2021 Last Documented On 1 7:15PM ; [facility] Morbid obesity Medical Established Patient with Denny Armani ACCOUNTING SYSTEMS ANALYST 04/23/2021 Last Documented On 1 12:31PM ; [facility] Otitis externa Medical Established Patient with Denny Armani ACCOUNTING SYSTEMS ANALYST 04/23/2021 Last Documented On 1 12:31PM ; [facility] Z68.42 - Body mass index [BM I] 45.0-49.9, adult Medical Established Patient with Denny Armani ACCOUNTING SYSTEMS ANALYST 04/23/2021 Last Documented On 1 12:31PM ; [facility] Post-traumatic stress disorder Establ ished Patient with Kinga Short LISWS 04/01/2021 Last Documented On 1 10:05PM ; [facility] Morbid obesity Medical Established Patient with Denny Armani ACCOUNTING SYSTEMS ANALYST 04/01/2021 Last Documented On 1 4:45PM ; [facility] Z68.42 - Body mass index [BM I] 45.0-49.9, adult Medical Established Patient with Denny Armani ACCOUNTING SYSTEMS ANALYST 04/01/2021 Last Documented On 1 4:45PM ; [facility] Post-traumatic stress disorder Establ ished Patient with Kinga Short LISWS 03/17/2021 Last Documented On 1 11:59AM ; [facility] Assessment of visit for: scr eening for human immunodeficiency virus Medical New Patient with Denny Armani ACCOUNTING SYSTEMS ANALYST 03/17/2021 Last Documented On 1 4:06PM ; [facility] Diabetes Risk Test Score was one score 03/17/2021 Medical New Patient with Denny Armani ACCOUNTING SYSTEMS ANALYST 03/17/2021 Last Documented On 1 4:06PM ; [facility] Hypertension Medical New Patient with Denny C chas ACCOUNTING SYSTEMS ANALYST 03/17/2021 Last Documented On 1 4:06PM ; [facility] Morbid obesity Medical New Patient with Denny C chas ACCOUNTING SYSTEMS ANALYST 03/17/2021 Last Documented On 1 4:06PM ; [facility] Post-traumatic stress disorder Medical New Patie nt with Denny Armani ACCOUNTING SYSTEMS ANALYST 03/17/2021 Last Documented On 1 4:06PM ; [facility] Z68.42 - Body mass index [BM I] 45.0-49.9, adult Medical New Patient with Denny Armani ACCOUNTING SYSTEMS ANALYST 03/17/2021 Last Documented On 1 4:06PM ; [facility] Work Phone: 1(601) 453-798508-22-2024 Progress note* Progress note Date Encounter Last Documented by 06/13/2024 Medical Established Patient Last documented on 06/13/2024; 7:36 PM, Denny Lomeli CNP; [facility] Active Problems & Conditions - F90.9 - [...] 3 months ago , has appt with obgyn specialist but not til october agreeable to progesterone [...] BP-Sitting R151/98 mmHg BP Cuff SizeLarge Pulse Rate-Bbnmado056 bpm Rlmeeq38 in Zmdbce875 lbs 9.6 oz Body Mass Index57.9 kg/m2 Body Surface Area2.4 m2 Oxygen Dcrnyicpbz86 % - Vitals taken 06/13/2024 05:21 pm [...] Dysmenorrhea, unspecified Outside Diagn Tests/Ultrasound: US Transvaginal ([id number]) Instructions: [place] Slynd 4 MG tablet take [...] Not planning a in the next year. [facility]08-22-2024 Progress note* Progress note Date Encounter Last Documented by 06/13/2024 Established Patient Last docu mented on 06/14/2024; 3:28 PM, Kinga RUDOLPH; [facility] Active Problems & Conditions - F90.9 - Attention-deficit Hyperactivity Disorder - F31.31 - Bipolar I Disorder, Most Recent Episode, Depressed Mild - E11.9 - Diabetes Mellitus Type 2 Without Complication - N94.6 - Dysmenorrhea - F43.10 - Post-traumatic Stress Disorder Chief Complaint The Chief Complaint is: [facility] met with patient to follow-up regarding mood and medications. Patient had requested to meet with a different [facility] in office but was not avialable and [...] Reminders - Assess Tobacco Use satisfied 06/13/2024. [facility]06-19-2024 Instructions Includes: Instructions for all patient encounters Education and Decision Aids were provided during visit for: Discussed nutritional needs teach healthy choices including fruits and vegetables Last Documented On 4 4:46PM ; [facility] Patient education about a pr oper diet Last Documented On 4 4:46PM ; [facility] Discussed concerns about exe rcise : promote physical activity Last Documented On 4 4:46PM ; [facility] Not requesting contraception Last Documented On 4 4:46PM ; [facility] and suppo rtive listening and processed current stressors related to getting medications. ~[facility] discussed coping skills and supports to implement in daily routine. ~P discussed progress patient has felt they have made recently and encouraged continued follow-up with providers to address health Last Documented On 4 5:16PM ; [facility] Discussed nutritional needs teach healthy choices including fruits and vegetables Last Documented On 4 7:14PM ; [facility] Patient education about a pr oper diet Last Documented On 4 7:14PM ; [facility] Discussed concerns about exe rcise : promote physical activity Last Documented On 4 7:14PM ; [facility] Not requesting contraception Last Documented On 4 7:14PM ; [facility] Discussed nutritional needs teach healthy choices including fruits and vegetables Last Documented On 3 5:15PM ; [facility] Patient education about a pr oper diet Last Documented On 3 5:15PM ; [facility] Discussed concerns about exe rcise : promote physical activity Last Documented On 3 5:15PM ; [facility] Discussed nutritional needs teach healthy choices including fruits and vegetables Last Documented On 2 1:42PM ; [facility] Patient education about a pr oper diet Last Documented On 2 1:42PM ; [facility] Discussed concerns about exe rcise : promote physical activity Last Documented On 2 1:42PM ; [facility] and supportive feedback; normalized emotions and feelings, also provided pt time to process any current stressors. ~Promoted and encouraged follow-through with scheduling psychiatric services Last Documented On 2 3:21PM ; [facility] provided supportive, empa thic listening and reflective feedback. ~Explored, encouraged, and supported the pt to discuss current sx/mood, assess risk for harm/need, coping mechanisms, support network and safety planning. ~Supported pt's plan to f/up with Dr. Carney, as planned at [place], [place]. ~Encouraged pt to use safety plan, if needed to ensure she remains safe Last Documented On 2 2:27PM ; [facility] Discussed nutritional needs teach healthy choices including fruits and vegetables Last Documented On 2 3:20PM ; [facility] Patient education about a pr oper diet Last Documented On 2 3:20PM ; [facility] Discussed concerns about exe rcise : promote physical activity ~ ~Will restart trazodone and prazosin ~ ~Patient is planning to have brother stay with her for a few days for emotional support ~ ~Follow up with PCP at next scheduled visit ~ ~Call psychiatrist office to schedule appt ~ ~Call counselor Last Documented On 2 9:35AM ; [facility] Provided supportive listenin g and empathic feedback; encouraged, explored, and supported the pt as she processed current symptoms, Issues, and concerns. ~Discussed past tx and explored current needs/options. Acknowledged and validated pt's thoughts and emotions. ~Explored coping mechanisms and support network; utilized opportunity for safety planning; promoted seeking positive support and seeking help, as needed Last Documented On 2 3:28PM ; [facility] provided active listenin g, support and helped pt process though current symptoms and stressor(s). Discussed and explored past effectiveness of medication; identified objectives and future goals; promoted use of healthy coping mechanisms, and self-care practices Last Documented On 2 3:19PM ; [facility] Reviewed side effects and Ri sks/Benefits analysis Last Documented On 2 3:19PM ; [facility] Discussed nutritional needs teach healthy choices including fruits and vegetables Last Documented On 2 3:15PM ; [facility] Patient education about a pr oper diet Last Documented On 2 3:15PM ; [facility] Discussed concerns about exe rcise : promote physical activity Last Documented On 2 3:15PM ; [facility] introduced pt to [facility] in tegrated model of care ~[facility] offered active listening and supportive feedback; normalized emotions and feelings, also provided pt time to process any current stressors ~[facility] discussed potential benefits of counseling and supported re-engaging, as needed. ~[facility] encouraged pt to continue to make time to implement self-care regimen and use coping methods, as needed Last Documented On 2 4:07PM ; [facility] Discussed nutritional needs teach healthy choices including fruits and vegetables Last Documented On 2 3:15PM ; [facility] Patient education about a pr oper diet Last Documented On 2 3:15PM ; [facility] Inquiry and counseling about medication administration and compliance Last Documented On 2 7:37PM ; [facility] Discussed concerns about exe rcise : promote physical activity Last Documented On 2 3:15PM ; [facility] Patient goals discussed Last Documented On 2 7:37PM ; [facility] Ansewred pt's questions re B orderlline Personality D/O and Bipolar D/O raised by psychiatrist at [facility]. ~Validated and normalized patient?s feelings while assisting to process recent events Last Documented On 1 1:33AM ; [facility] Discussed nutritional needs teach healthy choices including fruits and vegetables Last Documented On 1 2:04PM ; [facility] Patient education about a pr oper diet Last Documented On 1 2:04PM ; [facility] Discussed concerns about exe rcise : promote physical activity Last Documented On 1 2:04PM ; [facility] provided active listenin g, support and helped patient process through current symptoms and stressors with ongoing mental health concerns and medication changes. ~[facility] discussed coping skills and supports that patient [...] ER Last Documented On 1 10:17AM ; [facility] Patient education about a pr oper diet Last Documented On 1 5:17PM ; [facility] Patient education about meal planning Last Documented On 1 5:17PM ; [facility] Education about changing eat ing habits Last Documented On 1 5:17PM ; [facility] Patient education about high fiber diet Last Documented On 1 5:17PM ; [facility] Patient education about low fat diet Last Documented On 1 5:17PM ; [facility] Patient education about low cholesterol diet Last Documented On 1 5:17PM ; [facility] Patient education about low carbohydrate diet Last Documented On 1 5:17PM ; [facility] Patient education about high protein diet Last Documented On 1 5:17PM ; [facility] offered active and suppo rtive listening, normalized emotions and feelings, and processed current stressors. ~[facility] discussed resources for finding a counselor and provided list of local resources. ~P discussed patients coping skills and supports and encouraged patient to continue to implement. ~P reminded patient of crisis resources should they be needed Last Documented On 7:15PM ; [facility] Discussed nutritional needs teach healthy choices including fruits and vegetables Last Documented On 11:38AM ; [facility] Patient education about a pr oper diet Last Documented On 11:38AM ; [facility] Patient education about a pr oper diet Last Documented On 12:19PM ; [facility] Patient education about meal planning Last Documented On 1 12:19PM ; [facility] Education about changing eat ing habits Last Documented On 12:19PM ; [facility] Patient education about high fiber diet Last Documented On 1 12:19PM ; [facility] Patient education about low fat diet Last Documented On 12:19PM ; [facility] Patient education about low cholesterol diet Last Documented On 12:19PM ; [facility] Patient education about low carbohydrate diet Last Documented On 1 12:19PM ; [facility] Patient education about high protein diet Last Documented On 1 12:19PM ; [facility] Discussed concerns about exe rcise : promote physical activity Last Documented On 11:38AM ; [facility] provided active listenin g, support and helped patient process through current symptoms and stressors related to family conflict. ~[facility] discussed coping skills and supports with patient that can be implemented and reminded patient of ways to access additional resources. ~[facility] discussed crisis resources and plan. Patient has crisis resources still available should they be needed Last Documented On 1 7:04PM ; [facility] Discussed nutritional needs teach healthy choices including fruits and vegetables Last Documented On 1 3:57PM ; [facility] Patient education about a pr oper diet Last Documented On 1 3:57PM ; [facility] Discussed concerns about exe rcise : promote physical activity Last Documented On 1 3:57PM ; [facility]. [facility] and PCP reassured patient of not sharing information with anyone unless she has signed a release for us to do so. ~P provided active listening, support and helped patient process through current symptoms and stressors. ~P discussed establishing counseling and psychiatry. P discussed EMDR therapy and ways to find provider who does this type of therapy. ~[facility] discussed crisis resources should mood worsen, [facility] provided text hotline number for crisis. P reviewed crisis plan with patient and patient is able to contact positive supports and family when feeling down Last Documented On 1 11:46AM ; [facility] Discussed nutritional needs teach healthy choices including fruits and vegetables Last Documented On 1 2:11PM ; [facility] Patient education about a pr oper diet Last Documented On 1 2:11PM ; [facility] Discussed concerns about exe rcise : promote physical activity Last Documented On 1 2:11PM ; [facility] Work Phone: 1(657) 126-759106-19-2024 Evaluation note Includes: Assessments for all patient encounters Findings Encounter Date [D64.9 - Anemia, unspecified] anemia Med ical Established Patient with Denny Lomeli ACCOUNTING SYSTEMS ANALYST 04/10/2024 Last Documented On 4 6:51PM ; [facility] [Z68.43 - Body mass index [B ID] 50.0-59.9, adult] assessment of body mass index Medical Established Patient with Denny Lomeli SCOTT 04/10/2024 Last Documented On 4 6:51PM ; [facility] Bipolar affective disorder, current episode depressed, mild BH Established Patient with Kinga Short LISWS 01/17/2024 Last Documented On 4 5:16PM ; [facility] Post-traumatic stress disorder BH Establ ished Patient with Kinga Short LISWS 01/17/2024 Last Documented On 4 5:16PM ; [facility] Undifferentiated attention d eficit disorder BH Established Patient with Kinga Short LISWS 01/17/2024 Last Documented On 4 5:16PM ; [facility] Visit for: screening for disorder BH Est ablished Patient with Kinga Bourgeois LISWS 01/17/2024 Last Documented On 4 5:16PM ; [facility] [Z68.43 - Body mass index [B ID] 50.0-59.9, adult] assessment of body mass index Medical Established Patient with Denny Lomeli ACCOUNTING SYSTEMS ANALYST 01/17/2024 Last Documented On 4 7:50PM ; [facility] Attention-deficit hyperactivity disorder Medical Established Patient with Denny Lomeli ACCOUNTING SYSTEMS ANALYST 01/17/2024 Last Documented On 4 7:50PM ; [facility] Diabetes Risk Test Score was three score 01/17/2024 Medical Established Patient with Denny Lomeli ACCOUNTING SYSTEMS ANALYST 01/17/2024 Last Documented On 4 7:50PM ; [facility] Visit for: screening for STD Medical Est ablished Patient with Denny Lomeli ACCOUNTING SYSTEMS ANALYST 01/17/2024 Last Documented On 4 7:50PM ; [facility] [Z68.32 - Body mass index [B ID] 32.0-32.9, adult] assessment of body mass index Medical Established Patient with Denny Lomeli ACCOUNTING SYSTEMS ANALYST 05/10/2023 Last Documented On 3 6:01PM ; [facility] Borderline personality disorder Medical Established Patient with Denny Lomeli ACCOUNTING SYSTEMS ANALYST 05/10/2023 Last Documented On 3 6:01PM ; [facility] Screening for diabetes mellitus Medical Established Patient with Denny Lomeli ACCOUNTING SYSTEMS ANALYST 05/10/2023 Last Documented On 3 6:01PM ; [facility] Assessment of body mass index Medical Es tablished Patient with Denny Lomeli ACCOUNTING SYSTEMS ANALYST 08/12/2022 Last Documented On 2 2:45PM ; [facility] Bipolar affective disorder, current episode manic Telebehavioral Health with Belkis Velarde [facility] 06/16/2022 Last Documented On 2 3:22PM ; [facility] Bipolar affective disorder, current episode manic Established Patient with Belkisdionna Velarde [facility] 06/15/2022 Last Documented On 2 2:28PM ; [facility] Bipolar affective disorder, current episode depressed, severe with psychosis Telebehavioral Health with Belkisdionna Velarde [facility] 06/15/2022 Last Documented On 2 3:29PM ; [facility] Assessment of body mass inde x [Body mass index [BMI] 50.0-59.9, adult] Open Access - Established with Leah Monique ACCOUNTING SYSTEMS ANALYST 06/15/2022 Last Documented On 2 9:36AM ; [facility] Bipolar I disorder, most rec ent episode, manic Open Access - Established with Leah Monique ACCOUNTING SYSTEMS ANALYST 06/15/2022 Last Documented On 2 9:36AM ; [facility] Post-traumatic stress disorder Establ ished Patient with Belkisdionna Velarde [facility] 06/08/2022 Last Documented On 2 3:20PM ; [facility] No cough Medical Established Patient with Denny Armani ACCOUNTING SYSTEMS ANALYST 06/08/2022 Last Documented On 2 4:04PM ; [facility] Z68.43 - Body mass index [BM I] 50.0-59.9, adult Medical Established Patient with Denny Armani ACCOUNTING SYSTEMS ANALYST 06/08/2022 Last Documented On 2 4:04PM ; [facility] Borderline personality disor kyree Pt reported hx of sx/dx Established Patient with Belkisdionna CoffeyVelarde LPCC-S 05/27/2022 Last Documented On 2 4:08PM ; [facility] Assessment of body mass inde x [Body mass index [BMI] 50.0-59.9, adult] Open Access - Established with Leah Monique ACCOUNTING SYSTEMS ANALYST 05/27/2022 Last Documented On 2 7:41PM ; [facility] Diabetes Risk Test Score was three score 05/27/2022 Open Access - Established with Leah Monique ACCOUNTING SYSTEMS ANALYST 05/27/2022 Last Documented On 2 7:41PM ; [facility] Bipolar I disorder, most rec ent episode, manic Established Patient with Eufemia Mcneil [facility] 07/15/2021 Last Documented On 1 1:35AM ; [facility] Borderline personality disorder Estab lished Patient with Eufemia Mcneil [facility] 07/15/2021 Last Documented On 1 1:35AM ; [facility] Post-traumatic stress disorder Establ ished Patient with Eufemia Mcneil [facility] 07/15/2021 Last Documented On 1 1:35AM ; [facility] Assessment of visit for: lloyd mcgillning for human immunodeficiency virus Medical Established Patient with Denny Armani ACCOUNTING SYSTEMS ANALYST 07/15/2021 Last Documented On 1 2:56PM ; [facility] Nicotine dependence Medical Established Patient with Denny Armani ACCOUNTING SYSTEMS ANALYST 07/15/2021 Last Documented On 1 2:56PM ; [facility] Tachycardia Medical Established Patient with Denny Armani ACCOUNTING SYSTEMS ANALYST 07/15/2021 Last Documented On 1 2:56PM ; [facility] Z68.43 - Body mass index [BM I] 50.0-59.9, adult Medical Established Patient with Denny Armani ACCOUNTING SYSTEMS ANALYST 07/15/2021 Last Documented On 1 2:56PM ; [facility] Bipolar I disorder, most rec ent episode, manic Established Patient with Kinga Short LISWS 06/17/2021 Last Documented On 1 10:17AM ; [facility] Borderline personality disor kyree per patient reported history Established Patient with Kinga Short LISWS 06/17/2021 Last Documented On 1 10:17AM ; [facility] Nicotine dependence Established Patient with Kinga Short LISWS 06/17/2021 Last Documented On 1 10:17AM ; [facility] Post-traumatic stress disorder Establ ished Patient with Kinga Short LISWS 06/17/2021 Last Documented On 1 10:17AM ; [facility] Body mass index Medical Established Patient with Denny Armani ACCOUNTING SYSTEMS ANALYST 06/17/2021 Last Documented On 1 5:23PM ; [facility] Morbid obesity Medical Established Patient with Denny Armani ACCOUNTING SYSTEMS ANALYST 06/17/2021 Last Documented On 1 5:23PM ; [facility] Nicotine dependence uncomplicated Medica l Established Patient with Denny Armani ACCOUNTING SYSTEMS ANALYST 06/17/2021 Last Documented On 1 5:23PM ; [facility] Z68.42 - Body mass index [BM I] 45.0-49.9, adult Medical Established Patient with Denny Armani ACCOUNTING SYSTEMS ANALYST 06/17/2021 Last Documented On 1 5:23PM ; [facility] 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 disorders 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 ACCOUNTING SYSTEMS ANALYST 05/15/2021 Last Documented On 1 7:49AM ; [facility] Mood disorders, NOS per blaze ent reported history Established Patient with Kinga Short LISWS 04/23/2021 Last Documented On 1 7:15PM ; [facility] Post-traumatic stress disorder Establ ished Patient with Kinga Short LISWS 04/23/2021 Last Documented On 1 7:15PM ; [facility] Morbid obesity Medical Established Patient with Denny Armani ACCOUNTING SYSTEMS ANALYST 04/23/2021 Last Documented On 1 12:31PM ; [facility] Otitis externa Medical Established Patient with Denny Armani ACCOUNTING SYSTEMS ANALYST 04/23/2021 Last Documented On 1 12:31PM ; [facility] Z68.42 - Body mass index [BM I] 45.0-49.9, adult Medical Established Patient with Denny Armani ACCOUNTING SYSTEMS ANALYST 04/23/2021 Last Documented On 1 12:31PM ; [facility] Post-traumatic stress disorder Establ ished Patient with Kinga Short LISWS 04/01/2021 Last Documented On 1 10:05PM ; [facility] Morbid obesity Medical Established Patient with Denny Armani ACCOUNTING SYSTEMS ANALYST 04/01/2021 Last Documented On 1 4:45PM ; [facility] Z68.42 - Body mass index [BM I] 45.0-49.9, adult Medical Established Patient with Denny Armani ACCOUNTING SYSTEMS ANALYST 04/01/2021 Last Documented On 1 4:45PM ; [facility] Post-traumatic stress disorder Establ ished Patient with Kinga Short LISWS 03/17/2021 Last Documented On 1 11:59AM ; [facility] Assessment of visit for: lloyd strange for human immunodeficiency virus Medical New Patient with Denny Armani ACCOUNTING SYSTEMS ANALYST 03/17/2021 Last Documented On 1 4:06PM ; [facility] Diabetes Risk Test Score was one score 03/17/2021 Medical New Patient with Denny Armani ACCOUNTING SYSTEMS ANALYST 03/17/2021 Last Documented On 1 4:06PM ; [facility] Hypertension Medical New Patient with Denny C chas ACCOUNTING SYSTEMS ANALYST 03/17/2021 Last Documented On 1 4:06PM ; [facility] Morbid obesity Medical New Patient with Denny C chas ACCOUNTING SYSTEMS ANALYST 03/17/2021 Last Documented On 1 4:06PM ; [facility] Post-traumatic stress disorder Medical New Patie nt with Denny Armani ACCOUNTING SYSTEMS ANALYST 03/17/2021 Last Documented On 1 4:06PM ; [facility] Z68.42 - Body mass index [BM I] 45.0-49.9, adult Medical New Patient with Denny Armani ACCOUNTING SYSTEMS ANALYST 03/17/2021 Last Documented On 1 4:06PM ; [facility] Work Phone: 1(125) 290-601006-19-2024 Evaluation note Includes: Assessments for all patient encounters Findings Encounter Date Attention-deficit hyperactiv ity disorder Established Patient with Kinga Short LISWS 04/10/2024 Last Documented On 4 10:10AM ; [facility] Bipolar I disorder, most rec ent episode, depressed - mild Established Patient with Kinga Short LISWS 04/10/2024 Last Documented On 4 10:10AM ; [facility] Post-traumatic stress disorder BH Establ ished Patient with Kinga Short LISWS 04/10/2024 Last Documented On 4 10:10AM ; [facility] [D64.9 - Anemia, unspecified] anemia Med ical Established Patient with Dennyartem Lomeli ACCOUNTING SYSTEMS ANALYST 04/10/2024 Last Documented On 4 6:51PM ; [facility] [Z68.43 - Body mass index [B ID] 50.0-59.9, adult] assessment of body mass index Medical Established Patient with Denny Lomeli ACCOUNTING SYSTEMS ANALYST 04/10/2024 Last Documented On 4 6:51PM ; [facility] Bipolar affective disorder, current episode depressed, mild Established Patient with Kinga Short LISWS 01/17/2024 Last Documented On 4 5:16PM ; [facility] Post-traumatic stress disorder BH Establ ished Patient with Kinga Short LISWS 01/17/2024 Last Documented On 4 5:16PM ; [facility] Undifferentiated attention d eficit disorder Established Patient with Kinga Short LISWS 01/17/2024 Last Documented On 4 5:16PM ; [facility] Visit for: screening for disorder Est ablished Patient with Kinga Short LISWS 01/17/2024 Last Documented On 4 5:16PM ; [facility] [Z68.43 - Body mass index [B ID] 50.0-59.9, adult] assessment of body mass index Medical Established Patient with Denny Lomeli ACCOUNTING SYSTEMS ANALYST 01/17/2024 Last Documented On 4 7:50PM ; [facility] Attention-deficit hyperactivity disorder Medical Established Patient with Dennyartem Landonen ACCOUNTING SYSTEMS ANALYST 01/17/2024 Last Documented On 4 7:50PM ; [facility] Diabetes Risk Test Score was three score 01/17/2024 Medical Established Patient with Dennyartem Lomeli ACCOUNTING SYSTEMS ANALYST 01/17/2024 Last Documented On 4 7:50PM ; [facility] Visit for: screening for STD Medical Est ablished Patient with Denny Lomeli ACCOUNTING SYSTEMS ANALYST 01/17/2024 Last Documented On 4 7:50PM ; [facility] [Z68.32 - Body mass index [B ID] 32.0-32.9, adult] assessment of body mass index Medical Established Patient with Denny Lomeli ACCOUNTING SYSTEMS ANALYST 05/10/2023 Last Documented On 3 6:01PM ; [facility] Borderline personality disorder Medical Established Patient with Denny Lomeli ACCOUNTING SYSTEMS ANALYST 05/10/2023 Last Documented On 3 6:01PM ; [facility] Screening for diabetes mellitus Medical Established Patient with Denny Lomeli ACCOUNTING SYSTEMS ANALYST 05/10/2023 Last Documented On 3 6:01PM ; [facility] Assessment of body mass index Medical Es tablished Patient with Denny Lomeli ACCOUNTING SYSTEMS ANALYST 08/12/2022 Last Documented On 2 2:45PM ; [facility] Bipolar affective disorder, current episode manic Telebehavioral Health with Belkis Velarde [facility] 06/16/2022 Last Documented On 2 3:22PM ; [facility] Bipolar affective disorder, current episode manic Established Patient with Belkis Velarde [facility] 06/15/2022 Last Documented On 2 2:28PM ; [facility] Bipolar affective disorder, current episode depressed, severe with psychosis Telebehavioral Health with Belkis Velarde [facility] 06/15/2022 Last Documented On 2 3:29PM ; [facility] Assessment of body mass inde x [Body mass index [BMI] 50.0-59.9, adult] Open Access - Established with Leah Monique ACCOUNTING SYSTEMS ANALYST 06/15/2022 Last Documented On 2 9:36AM ; [facility] Bipolar I disorder, most rec ent episode, manic Open Access - Established with Leah Monique ACCOUNTING SYSTEMS ANALYST 06/15/2022 Last Documented On 2 9:36AM ; [facility] Post-traumatic stress disorder BH Establ ished Patient with Belkis Velarde [facility] 06/08/2022 Last Documented On 2 3:20PM ; [facility] No cough Medical Established Patient with Denny Armani ACCOUNTING SYSTEMS ANALYST 06/08/2022 Last Documented On 2 4:04PM ; [facility] Z68.43 - Body mass index [BM I] 50.0-59.9, adult Medical Established Patient with Denny Armani ACCOUNTING SYSTEMS ANALYST 06/08/2022 Last Documented On 2 4:04PM ; [facility] Borderline personality disor kyree Pt reported hx of sx/dx Established Patient with Belkis Velarde [facility] 05/27/2022 Last Documented On 2 4:08PM ; [facility] Assessment of body mass inde x [Body mass index [BMI] 50.0-59.9, adult] Open Access - Established with Leah Amaya [facility] 05/27/2022 Last Documented On 2 7:41PM ; [facility] Diabetes Risk Test Score was three score 05/27/2022 Open Access - Established with Leah Monique [facility] 05/27/2022 Last Documented On 2 7:41PM ; [facility] Bipolar I disorder, most rec ent episode, manic Established Patient with Eufemia Mcneil [facility] 07/15/2021 Last Documented On 1 1:35AM ; [facility] Borderline personality disorder Estab lished Patient with Eufemia Mcneil [facility] 07/15/2021 Last Documented On 1 1:35AM ; [facility] Post-traumatic stress disorder Establ ished Patient with Eufemia Mcneli [facility] 07/15/2021 Last Documented On 1 1:35AM ; [facility] Assessment of visit for: scr eening for human immunodeficiency virus Medical Established Patient with Dennyartem Landonen ACCOUNTING SYSTEMS ANALYST 07/15/2021 Last Documented On 1 2:56PM ; [facility] Nicotine dependence Medical Established Patient with Denny Armani ACCOUNTING SYSTEMS ANALYST 07/15/2021 Last Documented On 1 2:56PM ; [facility] Tachycardia Medical Established Patient with Denny Armani ACCOUNTING SYSTEMS ANALYST 07/15/2021 Last Documented On 1 2:56PM ; [facility] Z68.43 - Body mass index [BM I] 50.0-59.9, adult Medical Established Patient with Dennyartem Lomeli ACCOUNTING SYSTEMS ANALYST 07/15/2021 Last Documented On 1 2:56PM ; [facility] Bipolar I disorder, most rec ent episode, manic Established Patient with Kinga Short LISWS 06/17/2021 Last Documented On 1 10:17AM ; [facility] Borderline personality disor kyree per patient reported history Established Patient with Kinga Short LISWS 06/17/2021 Last Documented On 1 10:17AM ; [facility] Nicotine dependence Established Patient with Kinga Short LISWS 06/17/2021 Last Documented On 1 10:17AM ; [facility] Post-traumatic stress disorder Establ ished Patient with Kinga Short LISWS 06/17/2021 Last Documented On 1 10:17AM ; [facility] Body mass index Medical Established Patient with Denny Armani ACCOUNTING SYSTEMS ANALYST 06/17/2021 Last Documented On 1 5:23PM ; [facility] Morbid obesity Medical Established Patient with Denny Armani ACCOUNTING SYSTEMS ANALYST 06/17/2021 Last Documented On 1 5:23PM ; [facility] Nicotine dependence uncomplicated Medica l Established Patient with Denny Armani ACCOUNTING SYSTEMS ANALYST 06/17/2021 Last Documented On 1 5:23PM ; [facility] Z68.42 - Body mass index [BM I] 45.0-49.9, adult Medical Established Patient with Denny Armani ACCOUNTING SYSTEMS ANALYST 06/17/2021 Last Documented On 1 5:23PM ; [facility] 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 disorders 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 ACCOUNTING SYSTEMS ANALYST 05/15/2021 Last Documented On 1 7:49AM ; [facility] Mood disorders, NOS per blaze ent reported history Established Patient with Kinga Short LISWS 04/23/2021 Last Documented On 1 7:15PM ; [facility] Post-traumatic stress disorder Establ ished Patient with Kinga Short LISWS 04/23/2021 Last Documented On 1 7:15PM ; [facility] Morbid obesity Medical Established Patient with Denny Armani ACCOUNTING SYSTEMS ANALYST 04/23/2021 Last Documented On 1 12:31PM ; [facility] Otitis externa Medical Established Patient with Denny Armani ACCOUNTING SYSTEMS ANALYST 04/23/2021 Last Documented On 1 12:31PM ; [facility] Z68.42 - Body mass index [BM I] 45.0-49.9, adult Medical Established Patient with Denny Armani ACCOUNTING SYSTEMS ANALYST 04/23/2021 Last Documented On 1 12:31PM ; [facility] Post-traumatic stress disorder BH Establ ished Patient with Kinga Short LISWS 04/01/2021 Last Documented On 1 10:05PM ; [facility] Morbid obesity Medical Established Patient with Denny Armani ACCOUNTING SYSTEMS ANALYST 04/01/2021 Last Documented On 1 4:45PM ; [facility] Z68.42 - Body mass index [BM I] 45.0-49.9, adult Medical Established Patient with Denny Armani ACCOUNTING SYSTEMS ANALYST 04/01/2021 Last Documented On 1 4:45PM ; [facility] Post-traumatic stress disorder Establ ished Patient with Kinga Short LISWS 03/17/2021 Last Documented On 1 11:59AM ; [facility] Assessment of visit for: lloyd mcgillning for human immunodeficiency virus Medical New Patient with Dennyartem Lomeli ACCOUNTING SYSTEMS ANALYST 03/17/2021 Last Documented On 1 4:06PM ; [facility] Diabetes Risk Test Score was one score 03/17/2021 Medical New Patient with Denny Armani ACCOUNTING SYSTEMS ANALYST 03/17/2021 Last Documented On 1 4:06PM ; [facility] Hypertension Medical New Patient with Denny Maryjo zamoraen ACCOUNTING SYSTEMS ANALYST 03/17/2021 Last Documented On 1 4:06PM ; [facility] Morbid obesity Medical New Patient with Denny C chas ACCOUNTING SYSTEMS ANALYST 03/17/2021 Last Documented On 1 4:06PM ; [facility] Post-traumatic stress disorder Medical New Patie nt with Denny Lomeli ACCOUNTING SYSTEMS ANALYST 03/17/2021 Last Documented On 1 4:06PM ; [facility] Z68.42 - Body mass index [BM I] 45.0-49.9, adult Medical New Patient with Denny Lomeli ACCOUNTING SYSTEMS ANALYST 03/17/2021 Last Documented On 1 4:06PM ; [facility] Work Phone: 1(405) 444-751606-19-2024 History general Narrative - Reported Includes: Medical History in patient's chart Description Last Updated POTS 04/10/2024 Last Documented On 4 6:51PM ; [facility] 0 previous live (s) 01/17/2024 Last Documented On 4 7:50PM ; [facility] Previously 1 time(s) 01/17/2024 Last Documented On 4 7:50PM ; [facility] Recent immunization for flu 01/17/2024 Last Documented On 4 7:50PM ; [facility] Has sex without a condom 06/08/2022 Last Documented On 2 4:04PM ; [facility] Not planning to have a baby in the next 12 months 06/08/2022 Last Documented On 2 4:04PM ; [facility] sexually transmitted infection status known 06/08/2022 Last Documented On 2 4:04PM ; [facility] No previous hospitalizations 06/08/2022 Last Documented On 2 4:04PM ; [facility] Chronic illness 05/17/2021 Last Documented On 1 7:49AM ; [facility] Exposure to COVID-19 04/23/2021 Last Documented On 1 12:31PM ; [facility] History of gynecologic disorder 03/17/20 21 Last Documented On 1 4:06PM ; [facility] History of Polycystic Ovarian Syndrome ( PCOS) 03/17/2021 Last Documented On 1 4:06PM ; [facility] History of anxiety disorder NOS 03/17/20 21 Last Documented On 1 4:06PM ; [facility] History of migraine headache 03/17/2021 Last Documented On 1 4:06PM ; [facility] History of psychiatric disorders biopola r disorder 03/17/2021 Last Documented On 1 4:06PM ; [facility] Work Phone: 1(116) 477-815606-19-2024 History general Narrative - Reported Includes: Medical History in patient's chart Description Last Updated POTS 04/10/2024 Last Documented On 4 6:51PM ; [facility] 0 previous live (s) 01/17/2024 Last Documented On 4 7:50PM ; [facility] Previously 1 time(s) 01/17/2024 Last Documented On 4 7:50PM ; [facility] Recent immunization for flu 01/17/2024 Last Documented On 4 7:50PM ; [facility] Has sex without a condom 06/08/2022 Last Documented On 2 4:04PM ; [facility] Not planning to have a baby in the next 12 months 06/08/2022 Last Documented On 2 4:04PM ; [facility] sexually transmitted infection status known 06/08/2022 Last Documented On 2 4:04PM ; [facility] No previous hospitalizations 06/08/2022 Last Documented On 2 4:04PM ; [facility] Chronic illness 05/17/2021 Last Documented On 1 7:49AM ; [facility] Exposure to COVID-19 04/23/2021 Last Documented On 1 12:31PM ; [facility] History of gynecologic disorder 03/17/20 21 Last Documented On 1 4:06PM ; [facility] History of Polycystic Ovarian Syndrome ( PCOS) 03/17/2021 Last Documented On 1 4:06PM ; [facility] History of anxiety disorder NOS 03/17/20 21 Last Documented On 1 4:06PM ; [facility] History of migraine headache 03/17/2021 Last Documented On 1 4:06PM ; [facility] History of psychiatric disorders biopola r disorder 03/17/2021 Last Documented On 1 4:06PM ; [facility] Work Phone: 1(888) 307-893706-19-2024 History general Narrative - Reported Includes: Medical History in patient's chart Description Last Updated POTS 04/10/2024 Last Documented On 4 6:51PM ; [facility] 0 previous live (s) 01/17/2024 Last Documented On 4 7:50PM ; [facility] Previously 1 time(s) 01/17/2024 Last Documented On 4 7:50PM ; [facility] Recent immunization for flu 01/17/2024 Last Documented On 4 7:50PM ; [facility] Has sex without a condom 06/08/2022 Last Documented On 2 4:04PM ; [facility] Not planning to have a baby in the next 12 months 06/08/2022 Last Documented On 2 4:04PM ; [facility] sexually transmitted infection status known 06/08/2022 Last Documented On 2 4:04PM ; [facility] No previous hospitalizations 06/08/2022 Last Documented On 2 4:04PM ; [facility] Chronic illness 05/17/2021 Last Documented On 1 7:49AM ; [facility] Exposure to COVID-19 04/23/2021 Last Documented On 1 12:31PM ; [facility] History of gynecologic disorder 03/17/20 21 Last Documented On 1 4:06PM ; [facility] History of Polycystic Ovarian Syndrome ( PCOS) 03/17/2021 Last Documented On 1 4:06PM ; [facility] History of anxiety disorder NOS 03/17/20 21 Last Documented On 1 4:06PM ; [facility] History of migraine headache 03/17/2021 Last Documented On 1 4:06PM ; [facility] History of psychiatric disorders biopola r disorder 03/17/2021 Last Documented On 1 4:06PM ; [facility] Work Phone: 1(176) 814-809606-19-2024 History general Narrative - Reported Includes: Medical History in patient's chart Description Last Updated POTS 04/10/2024 Last Documented On 4 6:51PM ; [facility] 0 previous live (s) 01/17/2024 Last Documented On 4 7:50PM ; [facility] Previously 1 time(s) 01/17/2024 Last Documented On 4 7:50PM ; [facility] Recent immunization for flu 01/17/2024 Last Documented On 4 7:50PM ; [facility] Has sex without a condom 06/08/2022 Last Documented On 2 4:04PM ; [facility] Not planning to have a baby in the next 12 months 06/08/2022 Last Documented On 2 4:04PM ; [facility] sexually transmitted infection status known 06/08/2022 Last Documented On 2 4:04PM ; [facility] No previous hospitalizations 06/08/2022 Last Documented On 2 4:04PM ; [facility] Chronic illness 05/17/2021 Last Documented On 1 7:49AM ; [facility] Exposure to COVID-19 04/23/2021 Last Documented On 1 12:31PM ; [facility] History of gynecologic disorder 03/17/20 21 Last Documented On 1 4:06PM ; [facility] History of Polycystic Ovarian Syndrome ( PCOS) 03/17/2021 Last Documented On 1 4:06PM ; [facility] History of anxiety disorder NOS 03/17/20 21 Last Documented On 1 4:06PM ; [facility] History of migraine headache 03/17/2021 Last Documented On 1 4:06PM ; [facility] History of psychiatric disorders biopola r disorder 03/17/2021 Last Documented On 1 4:06PM ; [facility] Work Phone: 1(624) 766-443106-19-2024 Progress note* Progress note Date Encounter Last Documented by 04/10/2024 Medical Established Patient Last documented on 04/10/2024; 6:51 PM, Denny Lomeli CNP; [facility] Active Problems & Conditions - F90.9 - [...] has tried to contact Dr. Donato in [place], but has not heard back. Patient provided with phone number for [facility]. Patient here for 2 month med [...] f/u . wants to get a new obgyn specialist . reports no longer doing counseling r/t [...] BP-Sitting L161/94 mmHg BP Cuff SizeLarge Pulse Rate-Tpvxqik81 bpm Fjgseg64 in Nrrgip258 lbs Body Mass Index54.6 kg/m2 Body Surface Area2.4 m2 Oxygen Dsghsmdmzn90 % - Vitals taken 04/10/2024 04:50 pm BP-Sitting L137/89 mmHg BP Cuff SizeLarge Pulse Rate-Xdfrfid79 bpm Vital Signs: - Systolic blood pressure [...] month med check EndCited # [facility] to [facility] , call prashant kong appt german . labs german to further check on anemia. Care Team - Denny Lomeli CNP Health Reminders - Assess BMI satisfied 04/10/2024. - Assess Tobacco Use satisfied 04/10/2024. - Follow Up Plan BMI Management satisfied 04/10/2024. User Defined 1 Not planning a in the next year. [facility]06-19-2024 Progress note* Progress note Date Encounter Last Documented by 04/10/2024 Established Patient Last docu mented on 04/11/2024; 10:10 AM, Kinga RUDOLPH; [facility] Active Problems & Conditions - F90.9 - Attention-deficit Hyperactivity Disorder - F31.31 - Bipolar I Disorder, Most Recent Episode, Depressed Mild - F43.10 - Post-traumatic Stress Disorder Chief Complaint The Chief Complaint is: [facility] met with patient to follow-up regarding mood [...] of things, or get along? Somewhat difficult. [facility]04-02-2024 Progress note* Progress note Date Encounter Last Documented by 01/23/2024 Chart Update Last documented on 01/30/2024; 9:32 AM, Denny Lomeli CNP; [facility] Active Problems & Conditions - F90.9 - [...] MG Oral Tablet AM and PM per METROLOGY TECHNICIAN/[facility] in [place], 30 days, 0 refills - MiraLax 17 [...] 01/17/2024 Care Team - Denny Lomeli CNP [facility]03-27-2024 Evaluation note Includes: Assessments for all patient encounters Findings Encounter Date Bipolar affective disorder, current episode depressed, mild Established Patient with Kinga Short LISWS 01/17/2024 Last Documented On 4 7:46PM ; [facility] Post-traumatic stress disorder Establ ished Patient with Kinga Short LISWS 01/17/2024 Last Documented On 4 7:46PM ; [facility] Undifferentiated attention d eficit disorder Established Patient with Kinga Short LISWS 01/17/2024 Last Documented On 4 7:46PM ; [facility] Visit for: screening for disorder BH Est ablished Patient with Kinga Short LISWS 01/17/2024 Last Documented On 4 7:46PM ; [facility] [Z68.43 - Body mass index [B ID] 50.0-59.9, adult] assessment of body mass index Medical Established Patient with Denny Lomeli ACCOUNTING SYSTEMS ANALYST 01/17/2024 Last Documented On 4 7:50PM ; [facility] Attention-deficit hyperactivity disorder Medical Established Patient with Dneny Lomeli ACCOUNTING SYSTEMS ANALYST 01/17/2024 Last Documented On 4 7:50PM ; [facility] Diabetes Risk Test Score was three score 01/17/2024 Medical Established Patient with Denny Lomeli ACCOUNTING SYSTEMS ANALYST 01/17/2024 Last Documented On 4 7:50PM ; [facility] Visit for: screening for STD Medical Est ablished Patient with Denny Lomeli ACCOUNTING SYSTEMS ANALYST 01/17/2024 Last Documented On 4 7:50PM ; [facility] [Z68.32 - Body mass index [B ID] 32.0-32.9, adult] assessment of body mass index Medical Established Patient with Denny Lomeli ACCOUNTING SYSTEMS ANALYST 05/10/2023 Last Documented On 3 6:01PM ; [facility] Borderline personality disorder Medical Established Patient with Denny Lomeli ACCOUNTING SYSTEMS ANALYST 05/10/2023 Last Documented On 3 6:01PM ; [facility] Screening for diabetes mellitus Medical Established Patient with Denny Lomeli ACCOUNTING SYSTEMS ANALYST 05/10/2023 Last Documented On 3 6:01PM ; [facility] Assessment of body mass index Medical Es tablished Patient with Denny Lomeli ACCOUNTING SYSTEMS ANALYST 08/12/2022 Last Documented On 2 2:45PM ; [facility] Bipolar affective disorder, current episode manic [facility]behavior[facility] 06/16/2022 Last Documented On 2 3:22PM ; [facility] Bipolar affective disorder, current episode manic BH Established Patient with Belkis Velarde [facility] 06/15/2022 Last Documented On 2 2:28PM ; [facility] Bipolar affective disorder, current episode depressed, severe with psychosis Telebehavioral Health with Belkisdionna Velarde [facility] 06/15/2022 Last Documented On 2 3:29PM ; [facility] Assessment of body mass inde x [Body mass index [BMI] 50.0-59.9, adult] Open Access - Established with Leah Monique ACCOUNTING SYSTEMS ANALYST 06/15/2022 Last Documented On 2 9:36AM ; [facility] Bipolar I disorder, most rec ent episode, manic Open Access - Established with Leah Monique ACCOUNTING SYSTEMS ANALYST 06/15/2022 Last Documented On 2 9:36AM ; [facility] Post-traumatic stress disorder Establ ished Patient with Belkisdionna Velarde LP[facility] 06/08/2022 Last Documented On 2 3:20PM ; [facility] No cough Medical Established Patient with Denny Armani ACCOUNTING SYSTEMS ANALYST 06/08/2022 Last Documented On 2 4:04PM ; [facility] Z68.43 - Body mass index [BM I] 50.0-59.9, adult Medical Established Patient with Denny Armani ACCOUNTING SYSTEMS ANALYST 06/08/2022 Last Documented On 2 4:04PM ; [facility] Borderline personality disor kyree Pt reported hx of sx/dx Established Patient with Belkisdionna Velarde [facility] 05/27/2022 Last Documented On 2 4:08PM ; [facility] Assessment of body mass inde x [Body mass index [BMI] 50.0-59.9, adult] Open Access - Established with Leah Monique ACCOUNTING SYSTEMS ANALYST 05/27/2022 Last Documented On 2 7:41PM ; [facility] Diabetes Risk Test Score was three score 05/27/2022 Open Access - Established with Leah Monique ACCOUNTING SYSTEMS ANALYST 05/27/2022 Last Documented On 2 7:41PM ; [facility] Bipolar I disorder, most rec ent episode, manic Established Patient with Eufemia Mcneil LP[facility]-S 07/15/2021 Last Documented On 1 1:35AM ; [facility] Borderline personality disorder Estab lished Patient with Eufemia Mcneil [facility] 07/15/2021 Last Documented On 1 1:35AM ; [facility] Post-traumatic stress disorder Establ ished Patient with Eufemia Mcneil [facility] 07/15/2021 Last Documented On 1 1:35AM ; [facility] Assessment of visit for: lloyd mcgillning for human immunodeficiency virus Medical Established Patient with Denny Armani ACCOUNTING SYSTEMS ANALYST 07/15/2021 Last Documented On 1 2:56PM ; [facility] Nicotine dependence Medical Established Patient with Denny Armani ACCOUNTING SYSTEMS ANALYST 07/15/2021 Last Documented On 1 2:56PM ; [facility] Tachycardia Medical Established Patient with Denny Armani ACCOUNTING SYSTEMS ANALYST 07/15/2021 Last Documented On 1 2:56PM ; [facility] Z68.43 - Body mass index [BM I] 50.0-59.9, adult Medical Established Patient with Denny Armani ACCOUNTING SYSTEMS ANALYST 07/15/2021 Last Documented On 1 2:56PM ; [facility] Bipolar I disorder, most rec ent episode, manic Established Patient with Kinga Short LISWS 06/17/2021 Last Documented On 1 10:17AM ; [facility] Borderline personality disor kyree per patient reported history Established Patient with Kinga Short LISWS 06/17/2021 Last Documented On 1 10:17AM ; [facility] Nicotine dependence Established Patient with Kinga Short LISWS 06/17/2021 Last Documented On 1 10:17AM ; [facility] Post-traumatic stress disorder Establ ished Patient with Kinga Short LISWS 06/17/2021 Last Documented On 1 10:17AM ; [facility] Body mass index Medical Established Patient with Denny Armani ACCOUNTING SYSTEMS ANALYST 06/17/2021 Last Documented On 1 5:23PM ; [facility] Morbid obesity Medical Established Patient with Denny Armani ACCOUNTING SYSTEMS ANALYST 06/17/2021 Last Documented On 1 5:23PM ; [facility] Nicotine dependence uncomplicated Medica l Established Patient with Denny Armani ACCOUNTING SYSTEMS ANALYST 06/17/2021 Last Documented On 1 5:23PM ; [facility] Z68.42 - Body mass index [BM I] 45.0-49.9, adult Medical Established Patient with Denny Armani ACCOUNTING SYSTEMS ANALYST 06/17/2021 Last Documented On 1 5:23PM ; [facility] 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 disorders 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 Screen Printing with Teagan Danielsarlyn zuniga ACCOUNTING SYSTEMS ANALYST 05/15/2021 Last Documented On 1 7:49AM ; [facility] Mood disorders, NOS per blaze ent reported history Established Patient with Kinga Short LISWS 04/23/2021 Last Documented On 1 7:15PM ; [facility] Post-traumatic stress disorder Establ ished Patient with Kinga Short LISWS 04/23/2021 Last Documented On 1 7:15PM ; [facility] Morbid obesity Medical Established Patient with Denny Armani ACCOUNTING SYSTEMS ANALYST 04/23/2021 Last Documented On 1 12:31PM ; [facility] Otitis externa Medical Established Patient with Denny Armani ACCOUNTING SYSTEMS ANALYST 04/23/2021 Last Documented On 1 12:31PM ; [facility] Z68.42 - Body mass index [BM I] 45.0-49.9, adult Medical Established Patient with Denny Armani ACCOUNTING SYSTEMS ANALYST 04/23/2021 Last Documented On 1 12:31PM ; [facility] Post-traumatic stress disorder Establ ished Patient with Kinga Short LISWS 04/01/2021 Last Documented On 1 10:05PM ; [facility] Morbid obesity Medical Established Patient with Denny Armani ACCOUNTING SYSTEMS ANALYST 04/01/2021 Last Documented On 1 4:45PM ; [facility] Z68.42 - Body mass index [BM I] 45.0-49.9, adult Medical Established Patient with Denny Armani ACCOUNTING SYSTEMS ANALYST 04/01/2021 Last Documented On 1 4:45PM ; [facility] Post-traumatic stress disorder Establ ished Patient with Kinga Short LISWS 03/17/2021 Last Documented On 1 11:59AM ; [facility] Assessment of visit for: scr eening for human immunodeficiency virus Medical New Patient with Denny Lomeli ACCOUNTING SYSTEMS ANALYST 03/17/2021 Last Documented On 1 4:06PM ; [facility] Diabetes Risk Test Score was one score 03/17/2021 Medical New Patient with Denny Lomeli ACCOUNTING SYSTEMS ANALYST 03/17/2021 Last Documented On 1 4:06PM ; [facility] Hypertension Medical New Patient with Dennyartem doherty ACCOUNTING SYSTEMS ANALYST 03/17/2021 Last Documented On 1 4:06PM ; [facility] Morbid obesity Medical New Patient with Denny Maryjo doherty ACCOUNTING SYSTEMS ANALYST 03/17/2021 Last Documented On 1 4:06PM ; [facility] Post-traumatic stress disorder Medical New Patie nt with Denny Lomeli ACCOUNTING SYSTEMS ANALYST 03/17/2021 Last Documented On 1 4:06PM ; [facility] Z68.42 - Body mass index [BM I] 45.0-49.9, adult Medical New Patient with Denny Lomeli ACCOUNTING SYSTEMS ANALYST 03/17/2021 Last Documented On 1 4:06PM ; [facility] Work Phone: 1(955) 318-755703-27-2024 Evaluation note Includes: Assessments for all patient encounters Findings Encounter Date Bipolar affective disorder, current episode depressed, mild Established Patient with Kinga Short LISWS 01/17/2024 Last Documented On 4 5:16PM ; [facility] Post-traumatic stress disorder Establ ished Patient with Kinga Short LISWS 01/17/2024 Last Documented On 4 5:16PM ; [facility] Undifferentiated attention d eficit disorder Established Patient with Kinga Short LISWS 01/17/2024 Last Documented On 4 5:16PM ; [facility] Visit for: screening for disorder Est ablished Patient with Kinga Short LISWS 01/17/2024 Last Documented On 4 5:16PM ; [facility] [Z68.43 - Body mass index [B ID] 50.0-59.9, adult] assessment of body mass index Medical Established Patient with Denny Lomeli ACCOUNTING SYSTEMS ANALYST 01/17/2024 Last Documented On 4 7:50PM ; [facility] Attention-deficit hyperactivity disorder Medical Established Patient with Denny Lomeli ACCOUNTING SYSTEMS ANALYST 01/17/2024 Last Documented On 4 7:50PM ; [facility] Diabetes Risk Test Score was three score 01/17/2024 Medical Established Patient with Denny Lomeli ACCOUNTING SYSTEMS ANALYST 01/17/2024 Last Documented On 4 7:50PM ; [facility] Visit for: screening for STD Medical Est ablished Patient with Denny Lomeli ACCOUNTING SYSTEMS ANALYST 01/17/2024 Last Documented On 4 7:50PM ; [facility] [Z68.32 - Body mass index [B ID] 32.0-32.9, adult] assessment of body mass index Medical Established Patient with Denny Lomeli ACCOUNTING SYSTEMS ANALYST 05/10/2023 Last Documented On 3 6:01PM ; [facility] Borderline personality disorder Medical Established Patient with Denny Lomeli ACCOUNTING SYSTEMS ANALYST 05/10/2023 Last Documented On 3 6:01PM ; [facility] Screening for diabetes mellitus Medical Established Patient with Denny Lomeli ACCOUNTING SYSTEMS ANALYST 05/10/2023 Last Documented On 3 6:01PM ; [facility] Assessment of body mass index Medical Es tablished Patient with Denny Lomeli ACCOUNTING SYSTEMS ANALYST 08/12/2022 Last Documented On 2 2:45PM ; [facility] Bipolar affective disorder, current episode manic Telebehavioral Health with Belkisdionna Velarde [facility] 06/16/2022 Last Documented On 2 3:22PM ; [facility] Bipolar affective disorder, current episode manic Established Patient with Belkisdionna CoffeyVelarde [facility] 06/15/2022 Last Documented On 2 2:28PM ; [facility] Bipolar affective disorder, current episode depressed, severe with psychosis Telebehavioral Health with Belkisdionna Velarde [facility] 06/15/2022 Last Documented On 2 3:29PM ; [facility] Assessment of body mass inde x [Body mass index [BMI] 50.0-59.9, adult] Open Access - Established with Leah Monique ACCOUNTING SYSTEMS ANALYST 06/15/2022 Last Documented On 2 9:36AM ; [facility] Bipolar I disorder, most rec ent episode, manic Open Access - Established with Leah Monique ACCOUNTING SYSTEMS ANALYST 06/15/2022 Last Documented On 2 9:36AM ; [facility] Post-traumatic stress disorder BH Establ ished Patient with Belkis Velarde [facility] 06/08/2022 Last Documented On 2 3:20PM ; [facility] No cough Medical Established Patient with Denny Armani ACCOUNTING SYSTEMS ANALYST 06/08/2022 Last Documented On 2 4:04PM ; [facility] Z68.43 - Body mass index [BM I] 50.0-59.9, adult Medical Established Patient with Denny Armani ACCOUNTING SYSTEMS ANALYST 06/08/2022 Last Documented On 2 4:04PM ; [facility] Borderline personality disor kyree Pt reported hx of sx/dx BH Established Patient with Belkis Velarde [facility] 05/27/2022 Last Documented On 2 4:08PM ; [facility] Assessment of body mass inde x [Body mass index [BMI] 50.0-59.9, adult] Open Access - Established with Leah Amaya CNP 05/27/2022 Last Documented On 2 7:41PM ; [facility] Diabetes Risk Test Score was three score 05/27/2022 Open Access - Established with Leah Monique ACCOUNTING SYSTEMS ANALYST 05/27/2022 Last Documented On 2 7:41PM ; [facility] Bipolar I disorder, most rec ent episode, manic BH Established Patient with Eufemia Mcneil [facility] 07/15/2021 Last Documented On 1 1:35AM ; [facility] Borderline personality disorder BH Estab lished Patient with Eufemia Mcneil [facility] 07/15/2021 Last Documented On 1 1:35AM ; [facility] Post-traumatic stress disorder Establ ished Patient with Eufemia Mcneil LP[facility]-S 07/15/2021 Last Documented On 1 1:35AM ; [facility] Assessment of visit for: scr eening for human immunodeficiency virus Medical Established Patient with Denny Armani ACCOUNTING SYSTEMS ANALYST 07/15/2021 Last Documented On 1 2:56PM ; [facility] Nicotine dependence Medical Established Patient with Denny Armani ACCOUNTING SYSTEMS ANALYST 07/15/2021 Last Documented On 1 2:56PM ; [facility] Tachycardia Medical Established Patient with Denny Armani ACCOUNTING SYSTEMS ANALYST 07/15/2021 Last Documented On 1 2:56PM ; [facility] Z68.43 - Body mass index [BM I] 50.0-59.9, adult Medical Established Patient with Denny Armani ACCOUNTING SYSTEMS ANALYST 07/15/2021 Last Documented On 1 2:56PM ; [facility] Bipolar I disorder, most rec ent episode, manic Established Patient with Kinga Short LISWS 06/17/2021 Last Documented On 1 10:17AM ; [facility] Borderline personality disor kyree per patient reported history Established Patient with Kinga Short LISWS 06/17/2021 Last Documented On 1 10:17AM ; [facility] Nicotine dependence Established Patient with Kinga Short LISWS 06/17/2021 Last Documented On 1 10:17AM ; [facility] Post-traumatic stress disorder Establ ished Patient with Kinga Short LISWS 06/17/2021 Last Documented On 1 10:17AM ; [facility] Body mass index Medical Established Patient with Denny Armani ACCOUNTING SYSTEMS ANALYST 06/17/2021 Last Documented On 1 5:23PM ; [facility] Morbid obesity Medical Established Patient with Denny Armani ACCOUNTING SYSTEMS ANALYST 06/17/2021 Last Documented On 1 5:23PM ; [facility] Nicotine dependence uncomplicated Medica l Established Patient with Denny Armani ACCOUNTING SYSTEMS ANALYST 06/17/2021 Last Documented On 1 5:23PM ; [facility] Z68.42 - Body mass index [BM I] 45.0-49.9, adult Medical Established Patient with Denny Armani ACCOUNTING SYSTEMS ANALYST 06/17/2021 Last Documented On 1 5:23PM ; [facility] 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 disorders 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 ACCOUNTING SYSTEMS ANALYST 05/15/2021 Last Documented On 1 7:49AM ; [facility] Mood disorders, NOS per blaze ent reported history Established Patient with Kinga Short LISWS 04/23/2021 Last Documented On 1 7:15PM ; [facility] Post-traumatic stress disorder Establ ished Patient with Kinga Short LISWS 04/23/2021 Last Documented On 1 7:15PM ; [facility] Morbid obesity Medical Established Patient with Denny Armani ACCOUNTING SYSTEMS ANALYST 04/23/2021 Last Documented On 1 12:31PM ; [facility] Otitis externa Medical Established Patient with Denny Armani ACCOUNTING SYSTEMS ANALYST 04/23/2021 Last Documented On 1 12:31PM ; [facility] Z68.42 - Body mass index [BM I] 45.0-49.9, adult Medical Established Patient with Denny Armani ACCOUNTING SYSTEMS ANALYST 04/23/2021 Last Documented On 1 12:31PM ; [facility] Post-traumatic stress disorder Establ ished Patient with Kinga Short LISWS 04/01/2021 Last Documented On 1 10:05PM ; [facility] Morbid obesity Medical Established Patient with Denny Armani ACCOUNTING SYSTEMS ANALYST 04/01/2021 Last Documented On 1 4:45PM ; [facility] Z68.42 - Body mass index [BM I] 45.0-49.9, adult Medical Established Patient with Denny Armani ACCOUNTING SYSTEMS ANALYST 04/01/2021 Last Documented On 1 4:45PM ; [facility] Post-traumatic stress disorder Establ ished Patient with Kinga Short LISWS 03/17/2021 Last Documented On 1 11:59AM ; [facility] Assessment of visit for: scr eening for human immunodeficiency virus Medical New Patient with Denny Lomeli ACCOUNTING SYSTEMS ANALYST 03/17/2021 Last Documented On 1 4:06PM ; [facility] Diabetes Risk Test Score was one score 03/17/2021 Medical New Patient with Denny Lomeli ACCOUNTING SYSTEMS ANALYST 03/17/2021 Last Documented On 1 4:06PM ; [facility] Hypertension Medical New Patient with Denny doherty ACCOUNTING SYSTEMS ANALYST 03/17/2021 Last Documented On 1 4:06PM ; [facility] Morbid obesity Medical New Patient with Denny Maryjo doherty ACCOUNTING SYSTEMS ANALYST 03/17/2021 Last Documented On 1 4:06PM ; [facility] Post-traumatic stress disorder Medical New Patie nt with Denny Lomeli ACCOUNTING SYSTEMS ANALYST 03/17/2021 Last Documented On 1 4:06PM ; [facility] Z68.42 - Body mass index [BM I] 45.0-49.9, adult Medical New Patient with Denny Lomeli ACCOUNTING SYSTEMS ANALYST 03/17/2021 Last Documented On 1 4:06PM ; [facility] Work Phone: 1(274) 329-148803-27-2024 Evaluation note Includes: Assessments for all patient encounters Findings Encounter Date Bipolar affective disorder, current episode depressed, mild Established Patient with Kinga Short LISWS 01/17/2024 Last Documented On 4 5:16PM ; [facility] Post-traumatic stress disorder BH Establ ished Patient with Kinga Short LISWS 01/17/2024 Last Documented On 4 5:16PM ; [facility] Undifferentiated attention d eficit disorder Established Patient with Kinga Short LISWS 01/17/2024 Last Documented On 4 5:16PM ; [facility] Visit for: screening for disorder BH Est ablished Patient with Kinga Short LISWS 01/17/2024 Last Documented On 4 5:16PM ; [facility] [Z68.43 - Body mass index [B ID] 50.0-59.9, adult] assessment of body mass index Medical Established Patient with Dennyaretm Lomeli ACCOUNTING SYSTEMS ANALYST 01/17/2024 Last Documented On 4 7:50PM ; [facility] Attention-deficit hyperactivity disorder Medical Established Patient with Denny Lomeli ACCOUNTING SYSTEMS ANALYST 01/17/2024 Last Documented On 4 7:50PM ; [facility] Diabetes Risk Test Score was three score 01/17/2024 Medical Established Patient with Denny Lomeli ACCOUNTING SYSTEMS ANALYST 01/17/2024 Last Documented On 4 7:50PM ; [facility] Visit for: screening for STD Medical Est ablished Patient with Denny Lomeli ACCOUNTING SYSTEMS ANALYST 01/17/2024 Last Documented On 4 7:50PM ; [facility] [Z68.32 - Body mass index [B ID] 32.0-32.9, adult] assessment of body mass index Medical Established Patient with Denny Lomeli ACCOUNTING SYSTEMS ANALYST 05/10/2023 Last Documented On 3 6:01PM ; [facility] Borderline personality disorder Medical Established Patient with Denny Lomeli ACCOUNTING SYSTEMS ANALYST 05/10/2023 Last Documented On 3 6:01PM ; [facility] Screening for diabetes mellitus Medical Established Patient with Denny Lomeli ACCOUNTING SYSTEMS ANALYST 05/10/2023 Last Documented On 3 6:01PM ; [facility] Assessment of body mass index Medical Es tablished Patient with Denny Lomeli ACCOUNTING SYSTEMS ANALYST 08/12/2022 Last Documented On 2 2:45PM ; [facility] Bipolar affective disorder, current episode manic [facility] 06/16/2022 Last Documented On 2 3:22PM ; [facility] Bipolar affective disorder, current episode manic Established Patient with Belkis Coffeyerson [facility]CC-[facility] 06/15/2022 Last Documented On 2 2:28PM ; [facility] Bipolar affective disorder, current episode depressed, severe with psychosis Telebehavioral Health with Belkis Coffeyerson [facility] 06/15/2022 Last Documented On 2 3:29PM ; [facility] Assessment of body mass inde x [Body mass index [BMI] 50.0-59.9, adult] Open Access - Established with Leah Monique ACCOUNTING SYSTEMS ANALYST 06/15/2022 Last Documented On 2 9:36AM ; [facility] Bipolar I disorder, most rec ent episode, manic Open Access - Established with Leah Monique ACCOUNTING SYSTEMS ANALYST 06/15/2022 Last Documented On 2 9:36AM ; [facility] Post-traumatic stress disorder BH Establ ished Patient with Belkis Velarde [facility] 06/08/2022 Last Documented On 2 3:20PM ; [facility] No cough Medical Established Patient with Denny Armani ACCOUNTING SYSTEMS ANALYST 06/08/2022 Last Documented On 2 4:04PM ; [facility] Z68.43 - Body mass index [BM I] 50.0-59.9, adult Medical Established Patient with Denny Armani ACCOUNTING SYSTEMS ANALYST 06/08/2022 Last Documented On 2 4:04PM ; [facility] Borderline personality disor kyree Pt reported hx of sx/dx BH Established Patient with Belkisdionna CoffeyVelarde LPCC-S 05/27/2022 Last Documented On 2 4:08PM ; [facility] Assessment of body mass inde x [Body mass index [BMI] 50.0-59.9, adult] Open Access - Established with Leah Monique ACCOUNTING SYSTEMS ANALYST 05/27/2022 Last Documented On 2 7:41PM ; [facility] Diabetes Risk Test Score was three score 05/27/2022 Open Access - Established with Leah Monique ACCOUNTING SYSTEMS ANALYST 05/27/2022 Last Documented On 2 7:41PM ; [facility] Bipolar I disorder, most rec ent episode, manic BH Established Patient with Eufemia Mcneil [facility]CC-[facility] 07/15/2021 Last Documented On 1 1:35AM ; [facility] Borderline personality disorder BH Estab lished Patient with Eufemia Mcneil [facility]CC-[facility] 07/15/2021 Last Documented On 1 1:35AM ; [facility] Post-traumatic stress disorder BH Establ ished Patient with Eufemia Mcneil [facility] 07/15/2021 Last Documented On 1 1:35AM ; [facility] Assessment of visit for: lloyd strange for human immunodeficiency virus Medical Established Patient with Denny Armani ACCOUNTING SYSTEMS ANALYST 07/15/2021 Last Documented On 1 2:56PM ; [facility] Nicotine dependence Medical Established Patient with Denny Armani ACCOUNTING SYSTEMS ANALYST 07/15/2021 Last Documented On 1 2:56PM ; [facility] Tachycardia Medical Established Patient with Denny Armani ACCOUNTING SYSTEMS ANALYST 07/15/2021 Last Documented On 1 2:56PM ; [facility] Z68.43 - Body mass index [BM I] 50.0-59.9, adult Medical Established Patient with Denny Armani ACCOUNTING SYSTEMS ANALYST 07/15/2021 Last Documented On 1 2:56PM ; [facility] Bipolar I disorder, most rec ent episode, manic Established Patient with Kinga Short LISWS 06/17/2021 Last Documented On 1 10:17AM ; [facility] Borderline personality disor kyree per patient reported history Established Patient with Kinga Short LISWS 06/17/2021 Last Documented On 1 10:17AM ; [facility] Nicotine dependence Established Patient with Kinga Short LISWS 06/17/2021 Last Documented On 1 10:17AM ; [facility] Post-traumatic stress disorder BH Establ ished Patient with Kinga Short LISWS 06/17/2021 Last Documented On 1 10:17AM ; [facility] Body mass index Medical Established Patient with Denny Armani ACCOUNTING SYSTEMS ANALYST 06/17/2021 Last Documented On 1 5:23PM ; [facility] Morbid obesity Medical Established Patient with Denny Armani ACCOUNTING SYSTEMS ANALYST 06/17/2021 Last Documented On 1 5:23PM ; [facility] Nicotine dependence uncomplicated Medica l Established Patient with Denny Armani ACCOUNTING SYSTEMS ANALYST 06/17/2021 Last Documented On 1 5:23PM ; [facility] Z68.42 - Body mass index [BM I] 45.0-49.9, adult Medical Established Patient with Denny Armani ACCOUNTING SYSTEMS ANALYST 06/17/2021 Last Documented On 1 5:23PM ; [facility] 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 disorders 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 ACCOUNTING SYSTEMS ANALYST 05/15/2021 Last Documented On 1 7:49AM ; [facility] Mood disorders, NOS per blaze ent reported history Established Patient with Kinga Short LISWS 04/23/2021 Last Documented On 1 7:15PM ; [facility] Post-traumatic stress disorder BH Establ ished Patient with Kinga Short LISWS 04/23/2021 Last Documented On 1 7:15PM ; [facility] Morbid obesity Medical Established Patient with Denny Armani ACCOUNTING SYSTEMS ANALYST 04/23/2021 Last Documented On 1 12:31PM ; [facility] Otitis externa Medical Established Patient with Denny Armani ACCOUNTING SYSTEMS ANALYST 04/23/2021 Last Documented On 1 12:31PM ; [facility] Z68.42 - Body mass index [BM I] 45.0-49.9, adult Medical Established Patient with Denny Armani ACCOUNTING SYSTEMS ANALYST 04/23/2021 Last Documented On 1 12:31PM ; [facility] Post-traumatic stress disorder Establ ished Patient with Kinga Short LISWS 04/01/2021 Last Documented On 1 10:05PM ; [facility] Morbid obesity Medical Established Patient with Denny Armani ACCOUNTING SYSTEMS ANALYST 04/01/2021 Last Documented On 1 4:45PM ; [facility] Z68.42 - Body mass index [BM I] 45.0-49.9, adult Medical Established Patient with Denny Armani ACCOUNTING SYSTEMS ANALYST 04/01/2021 Last Documented On 1 4:45PM ; [facility] Post-traumatic stress disorder Establ ished Patient with Kinga Short LISWS 03/17/2021 Last Documented On 1 11:59AM ; [facility] Assessment of visit for: scr eening for human immunodeficiency virus Medical New Patient with Denny Armani ACCOUNTING SYSTEMS ANALYST 03/17/2021 Last Documented On 1 4:06PM ; [facility] Diabetes Risk Test Score was one score 03/17/2021 Medical New Patient with Denny Lomeli ACCOUNTING SYSTEMS ANALYST 03/17/2021 Last Documented On 1 4:06PM ; [facility] Hypertension Medical New Patient with Denny doherty ACCOUNTING SYSTEMS ANALYST 03/17/2021 Last Documented On 1 4:06PM ; [facility] Morbid obesity Medical New Patient with Denny doherty ACCOUNTING SYSTEMS ANALYST 03/17/2021 Last Documented On 1 4:06PM ; [facility] Post-traumatic stress disorder Medical New Patie nt with Denny Lomeli ACCOUNTING SYSTEMS ANALYST 03/17/2021 Last Documented On 1 4:06PM ; [facility] Z68.42 - Body mass index [BM I] 45.0-49.9, adult Medical New Patient with Denny Lomeli ACCOUNTING SYSTEMS ANALYST 03/17/2021 Last Documented On 1 4:06PM ; [facility] Work Phone: 1(700) 889-204103-27-2024 History general Narrative - Reported Includes: Medical History in patient's chart Description Last Updated 0 previous live (s) 01/17/2024 Last Documented On 4 7:50PM ; [facility] Previously 1 time(s) 01/17/2024 Last Documented On 4 7:50PM ; [facility] Recent immunization for flu 01/17/2024 Last Documented On 4 7:50PM ; [facility] Has sex without a condom 06/08/2022 Last Documented On 2 4:04PM ; [facility] Not planning to have a baby in the next 12 months 06/08/2022 Last Documented On 2 4:04PM ; [facility] Partners sexually transmitted infection status known 06/08/2022 Last Documented On 2 4:04PM ; [facility] No previous hospitalizations 06/08/2022 Last Documented On 2 4:04PM ; [facility] Chronic illness 05/17/2021 Last Documented On 1 7:49AM ; [facility] Exposure to COVID-19 04/23/2021 Last Documented On 1 12:31PM ; [facility] History of gynecologic disorder 03/17/20 21 Last Documented On 1 4:06PM ; [facility] History of Polycystic Ovarian Syndrome ( PCOS) 03/17/2021 Last Documented On 1 4:06PM ; [facility] History of anxiety disorder NOS 03/17/20 21 Last Documented On 1 4:06PM ; [facility] History of migraine headache 03/17/2021 Last Documented On 1 4:06PM ; [facility] History of psychiatric disorders biopola r disorder 03/17/2021 Last Documented On 1 4:06PM ; [facility] Work Phone: 1(296) 200-434003-27-2024 History general Narrative - Reported Includes: Medical History in patient's chart Description Last Updated 0 previous live (s) 01/17/2024 Last Documented On 4 7:50PM ; [facility] Previously 1 time(s) 01/17/2024 Last Documented On 4 7:50PM ; [facility] Recent immunization for flu 01/17/2024 Last Documented On 4 7:50PM ; [facility] Has sex without a condom 06/08/2022 Last Documented On 2 4:04PM ; [facility] Not planning to have a baby in the next 12 months 06/08/2022 Last Documented On 2 4:04PM ; [facility] Partners sexually transmitted infection status known 06/08/2022 Last Documented On 2 4:04PM ; [facility] No previous hospitalizations 06/08/2022 Last Documented On 2 4:04PM ; [facility] Chronic illness 05/17/2021 Last Documented On 1 7:49AM ; [facility] Exposure to COVID-19 04/23/2021 Last Documented On 1 12:31PM ; [facility] History of gynecologic disorder 03/17/20 21 Last Documented On 1 4:06PM ; [facility] History of Polycystic Ovarian Syndrome ( PCOS) 03/17/2021 Last Documented On 1 4:06PM ; [facility] History of anxiety disorder NOS 03/17/20 21 Last Documented On 1 4:06PM ; [facility] History of migraine headache 03/17/2021 Last Documented On 1 4:06PM ; [facility] History of psychiatric disorders biopola r disorder 03/17/2021 Last Documented On 1 4:06PM ; [facility] Work Phone: 1(663) 230-437203-27-2024 History general Narrative - Reported Includes: Medical History in patient's chart Description Last Updated 0 previous live (s) 01/17/2024 Last Documented On 4 7:50PM ; [facility] Previously 1 time(s) 01/17/2024 Last Documented On 4 7:50PM ; [facility] Recent immunization for flu 01/17/2024 Last Documented On 4 7:50PM ; [facility] Has sex without a condom 06/08/2022 Last Documented On 2 4:04PM ; [facility] Not planning to have a baby in the next 12 months 06/08/2022 Last Documented On 2 4:04PM ; [facility] Partners sexually transmitted infection status known 06/08/2022 Last Documented On 2 4:04PM ; [facility] No previous hospitalizations 06/08/2022 Last Documented On 2 4:04PM ; [facility] Chronic illness 05/17/2021 Last Documented On 1 7:49AM ; [facility] Exposure to COVID-19 04/23/2021 Last Documented On 1 12:31PM ; [facility] History of gynecologic disorder 03/17/20 21 Last Documented On 1 4:06PM ; [facility] History of Polycystic Ovarian Syndrome ( PCOS) 03/17/2021 Last Documented On 1 4:06PM ; [facility] History of anxiety disorder NOS 03/17/20 21 Last Documented On 1 4:06PM ; [facility] History of migraine headache 03/17/2021 Last Documented On 1 4:06PM ; [facility] History of psychiatric disorders biopola r disorder 03/17/2021 Last Documented On 1 4:06PM ; [facility] Work Phone: 1([phone]) 612-462703-27-2024 Progress note* Progress note Date Encounter Last Documented by 01/17/2024 Medical Established Patient Last documented on 01/17/2024; 7:50 PM, Denny Lomeli CNP; [facility] Active Problems & Conditions - F90.9 - Attention-deficit Hyperactivity Disorder - F31.31 - Bipolar I Disorder, Most Recent Episode, Depressed Mild - F43.10 - Post-traumatic Stress Disorder Chief Complaint The Chief Complaint is: Patient was D/C'd from [facility] in [place] for no call no show. Patient needs [...] over psych meds , got dismissed from [facility] r/t no shows. has felt stable on meds x 11 months Current Medication - ARIPiprazole 5 MG Oral Tablet once daily, 90 days, 0 refills - busPIRone HCl 5 MG Oral Tablet one tablet twice daily, 90 days, 0 refills - lamoTRIgine 100 MG Oral Tablet once daily, 30 days, 0 refills - metFORMIN HCl 500 MG Oral Tablet AM and PM per [facility]ROLOGY TECHNIC[facility] in [place], 30 days, 0 refills - MiraLax 17 [...] BP-Sitting R134/88 mmHg BP Cuff SizeLarge Pulse Rate-Cldfany394 bpm Zooegi13 in Bezqmn966 lbs Body Mass Index52.7 kg/m2 Body Surface Area2.3 m2 Oxygen Dlxgnxsyqh29 % Vital Signs: - Systolic blood pressure [...] transmiss Outside Labs/Microbiology: All 3 Urine Test Peedihoce-Srsxlffzo-Gkpuysaqvjy EndCited StartCited- Other Follow-up Appointment 2 month [...] Less than 40 years (0 points) [Pre-DM]. [facility]03-27-2024 Progress note* Progress note Date Encounter Last Documented by 01/17/2024 Established Patient Last docu mented on 01/18/2024; 5:16 PM, Kinga RUDOLPH; [facility] Active Problems & Conditions - F90.9 - Attention-deficit Hyperactivity Disorder - F31.31 - Bipolar I Disorder, Most Recent Episode, Depressed Mild - F43.10 - Post-traumatic Stress Disorder Chief Complaint The Chief Complaint is: [facility] met with patient to follow-up regarding mood and medications and discuss PHQ score of 2. Patient reports recently getting dismissed from services at a [facility] in [place] due to missing appointments. Patient reports being [...] MG Oral Tablet AM and PM per METROLOGY TECHNICIAN[facility] in [place], 30 days, 0 refills - MiraLax 17 [...] and Collaborated with patient and provider: Counseling/Education [facility] offered active and supportive listening and processed current stressors related to getting medications. [facility] discussed coping skills and supports to implement in daily routine. [facility] discussed progress patient has felt they have made recently and encouraged continued follow-up with providers to address health. Plan Patient to take medications as prescribed and contact the office with any questions or concerns. Patient to implement coping skills and positive supports as discussed. [facility] to attempt to follow-up with patient via [...] clothing: No, unable to get needed child and adolescent psychiatrist: No, unable to get other needs No, [...] + 0 pt : Not at all. [facility]07-19-2023 Progress note* Progress note Date Encounter Last Documented by 05/10/2023 Medical Established Patient Last documented on 05/10/2023; 6:01 PM, Denny Lomeli CNP; [facility] Active Problems & Conditions - F31.10 - [...] does see Belkis Clarke a counselor at [facility] Currently only taking Metformin d/t PCOS Current Medication - Aldactazide 50-50 MG Oral Tablet take 1 tablet by mouth once daily, 30 days, 11 refills - metFORMIN HCl 500 MG Oral Tablet AM and PM per METROLOGY TECHNICIAN/[facility] in [place], 30 days, 0 refills - MiraLax 17 [...] BP-Sitting L111/76 mmHg BP Cuff SizeLarge Pulse Rate-Tumlixj57 bpm Temp-Oral98.2 F Tnnyvz36 in Jrqayp402 lbs Body Mass Index32.8 kg/m2 Body Surface Area1.9 m2 Oxygen Xadfmfdrwc44 % Vital Signs: - Systolic blood pressure [...] BMI Management satisfied 05/10/2023. [id number] Evaluation note Includes: Assessments for all patient encounters Findings Encounter Date Assessment of body mass index Medical Es tablished Patient with Denny Lomeli CNP 08/12/2022 Bipolar affective disorder, current episode manic [facility]behavioral Health with Belkis Velarde [facility] 06/16/2022 Bipolar affective disorder, current episode manic Established Patient with Belkis Velarde [facility] 06/15/2022 Bipolar affective disorder, current episode depressed, severe with psychosis Telebehavioral Health with Belkis Velarde [facility] 06/15/2022 Assessment of body mass inde x [Body mass index [BMI] 50.0-59.9, adult] Open Access - Established with Leah Amaya CNP 06/15/2022 Bipolar I disorder, most rec ent episode, manic Open Access - Established with Leah Amaya ACCOUNTING SYSTEMS ANALYST 06/15/2022 Post-traumatic stress disorder Establ ished Patient with Belkis Velarde [facility] 06/08/2022 No cough Medical Established Patient with Denny Landonen ACCOUNTING SYSTEMS ANALYST 06/08/2022 Z68.43 - Body mass index [BM I] 50.0-59.9, adult Medical Established Patient with Denny Armani ACCOUNTING SYSTEMS ANALYST 06/08/2022 Borderline personality disor kyree Pt reported hx of sx/dx Established Patient with Belkisdionna Velarde [facility] 05/27/2022 Assessment of body mass inde x [Body mass index [BMI] 50.0-59.9, adult] Open Access - Established with Leah Monique ACCOUNTING SYSTEMS ANALYST 05/27/2022 Diabetes Risk Test Score was three score 05/27/2022 Open Access - Established with Leah Monique ACCOUNTING SYSTEMS ANALYST 05/27/2022 Bipolar I disorder, most rec ent episode, manic Established Patient with Eufemia Mcneil [facility] 07/15/2021 Borderline personality disorder Estab lished Patient with Eufemia Mcneil [facility] 07/15/2021 Post-traumatic stress disorder Establ ished Patient with Eufemia Mcneil [facility] 07/15/2021 Assessment of visit for: lloyd strange for human immunodeficiency virus Medical Established Patient with Denny Armani ACCOUNTING SYSTEMS ANALYST 07/15/2021 Nicotine dependence Medical Established Patient with Denny Armani ACCOUNTING SYSTEMS ANALYST 07/15/2021 Tachycardia Medical Established Patient with Denny Armani ACCOUNTING SYSTEMS ANALYST 07/15/2021 Z68.43 - Body mass index [BM I] 50.0-59.9, adult Medical Established Patient with Denny Armani ACCOUNTING SYSTEMS ANALYST 07/15/2021 Bipolar I disorder, most rec ent episode, manic Established Patient with Kinga Short LISWS 06/17/2021 Borderline personality disor kyree per patient reported history BH Established Patient with Kinga Short LISWS 06/17/2021 Nicotine dependence Established Patie nt with Kinga Short LISWS 06/17/2021 Post-traumatic stress disorder Establ ished Patient with Kinga Short LISWS 06/17/2021 Body mass index Medical Established Patient with Denny Armani ACCOUNTING SYSTEMS ANALYST 06/17/2021 Morbid obesity Medical Established Patient with Denny Armani ACCOUNTING SYSTEMS ANALYST 06/17/2021 Nicotine dependence uncomplicated Medica l Established Patient with Denny Armani ACCOUNTING SYSTEMS ANALYST 06/17/2021 Z68.42 - Body mass index [BM I] 45.0-49.9, adult Medical Established Patient with Denny Armani ACCOUNTING SYSTEMS ANALYST 06/17/2021 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 disorders 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 [facility] 05/15/2021 Mood disorders, NOS per blaze ent reported history BH Established Patient with Kinga Short LISWS 04/23/2021 Post-traumatic stress disorder BH Establ ished Patient with Kinga Short LISWS 04/23/2021 Morbid obesity Medical Established Patient with Denny Armani ACCOUNTING SYSTEMS ANALYST 04/23/2021 Otitis externa Medical Established Patient with Denny Armani ACCOUNTING SYSTEMS ANALYST 04/23/2021 Z68.42 - Body mass index [BM I] 45.0-49.9, adult Medical Established Patient with Denny Armani ACCOUNTING SYSTEMS ANALYST 04/23/2021 Post-traumatic stress disorder BH Establ ished Patient with Kinga Short LISWS 04/01/2021 Morbid obesity Medical Established Patient with Denny Armani ACCOUNTING SYSTEMS ANALYST 04/01/2021 Z68.42 - Body mass index [BM I] 45.0-49.9, adult Medical Established Patient with Denny Armani ACCOUNTING SYSTEMS ANALYST 04/01/2021 Post-traumatic stress disorder Establ ished Patient with Kinga Short LISWS 03/17/2021 Assessment of visit for: lloyd strange for human immunodeficiency virus Medical New Patient with Denny Armani ACCOUNTING SYSTEMS ANALYST 03/17/2021 Diabetes Risk Test Score was one score 03/17/2021 Medical New Patient with Denny Armani [facility] 03/17/2021 Hypertension Medical New Patient with Denny Armani ACCOUNTING SYSTEMS ANALYST 03/17/2021 Morbid obesity Medical New Patient with Denny Armani ACCOUNTING SYSTEMS ANALYST 03/17/2021 Post-traumatic stress disorder Medical N ew Patient with Denny Armani [facility] 03/17/2021 Z68.42 - Body mass index [BM I] 45.0-49.9, adult Medical New Patient with Denny Armani [facility] 03/17/2021 [facility] Work Phone: 1(771) 169-679908-25-2022 Evaluation note Includes: Assessments for all patient encounters Findings Encounter Date Bipolar affective disorder, current episode manic Telebehavioral Health with Belkis Velarde [facility] 06/16/2022 Bipolar affective disorder, current episode manic Established Patient with Belkisdionna Velarde [facility] 06/15/2022 Bipolar affective disorder, current episode depressed, severe with psychosis Telebehavioral Health with Belkisdionna Velarde [facility] 06/15/2022 Assessment of body mass inde x [Body mass index [BMI] 50.0-59.9, adult] Open Access - Established with Leah Monique ACCOUNTING SYSTEMS ANALYST 06/15/2022 Bipolar I disorder, most rec ent episode, manic Open Access - Established with Leah Monique ACCOUNTING SYSTEMS ANALYST 06/15/2022 Post-traumatic stress disorder Establ ished Patient with Belkisdionna Velarde [facility] 06/08/2022 No cough Medical Established Patient with Denny Armani ACCOUNTING SYSTEMS ANALYST 06/08/2022 Z68.43 - Body mass index [BM I] 50.0-59.9, adult Medical Established Patient with Denny Armani ACCOUNTING SYSTEMS ANALYST 06/08/2022 Borderline personality disor kyree Pt reported hx of sx/dx Established Patient with Belkis Velarde [facility] 05/27/2022 Assessment of body mass inde x [Body mass index [BMI] 50.0-59.9, adult] Open Access - Established with Leah Monique ACCOUNTING SYSTEMS ANALYST 05/27/2022 Diabetes Risk Test Score was three score 05/27/2022 Open Access - Established with Leah Monique ACCOUNTING SYSTEMS ANALYST 05/27/2022 Bipolar I disorder, most rec ent episode, manic Established Patient with Eufemia Mcneil [facility] 07/15/2021 Borderline personality disorder Estab lished Patient with Eufemia Mcenil [facility] 07/15/2021 Post-traumatic stress disorder Establ ished Patient with Eufemia Mcneil [facility] 07/15/2021 Assessment of visit for: lloyd strange for human immunodeficiency virus Medical Established Patient with Denny Armani ACCOUNTING SYSTEMS ANALYST 07/15/2021 Nicotine dependence Medical Established Patient with Denny Armani ACCOUNTING SYSTEMS ANALYST 07/15/2021 Tachycardia Medical Established Patient with Denny Armani ACCOUNTING SYSTEMS ANALYST 07/15/2021 Z68.43 - Body mass index [BM I] 50.0-59.9, adult Medical Established Patient with Denny Armani ACCOUNTING SYSTEMS ANALYST 07/15/2021 Bipolar I disorder, most rec ent [...] index Medical Established Patient with Denny Armani ACCOUNTING SYSTEMS ANALYST 06/17/2021 Morbid obesity Medical Established Patient with Denny Armani ACCOUNTING SYSTEMS ANALYST 06/17/2021 Nicotine dependence uncomplicated Medica l Established Patient with Denny Armani ACCOUNTING SYSTEMS ANALYST 06/17/2021 Z68.42 - Body mass index [BM I] 45.0-49.9, adult Medical Established Patient with Denny Armani ACCOUNTING SYSTEMS ANALYST 06/17/2021 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 disorders 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 [facility] 05/15/2021 Mood disorders, NOS per blaze ent reported history BH Established Patient with Kinga Short LISWS 04/23/2021 Post-traumatic stress disorder BH Establ ished Patient with Kinga Short LISWS 04/23/2021 Morbid obesity Medical Established Patient with Denny Armani ACCOUNTING SYSTEMS ANALYST 04/23/2021 Otitis externa Medical Established Patient with Denny Armani ACCOUNTING SYSTEMS ANALYST 04/23/2021 Z68.42 - Body mass index [BM I] 45.0-49.9, adult Medical Established Patient with Denny Armani ACCOUNTING SYSTEMS ANALYST 04/23/2021 Post-traumatic stress disorder BH Establ ished Patient with Kinga Short LISWS 04/01/2021 Morbid obesity Medical Established Patient with Denny Armani ACCOUNTING SYSTEMS ANALYST 04/01/2021 Z68.42 - Body mass index [BM I] 45.0-49.9, adult Medical Established Patient with Denny Armani ACCOUNTING SYSTEMS ANALYST 04/01/2021 Post-traumatic stress disorder BH Establ ished Patient with Kinga Short LISWS 03/17/2021 Assessment of visit for: lloyd strange for human immunodeficiency virus Medical New Patient with Denny Armani ACCOUNTING SYSTEMS ANALYST 03/17/2021 Diabetes Risk Test Score was one score 03/17/2021 Medical New Patient with Denny Armani ACCOUNTING SYSTEMS ANALYST 03/17/2021 Hypertension Medical New Patient with Denny Armani ACCOUNTING SYSTEMS ANALYST 03/17/2021 Morbid obesity Medical New Patient with Denny Armani ACCOUNTING SYSTEMS ANALYST 03/17/2021 Post-traumatic stress disorder Medical N ew Patient with Denny Armani ACCOUNTING SYSTEMS ANALYST 03/17/2021 Z68.42 - Body mass index [BM I] 45.0-49.9, adult Medical New Patient with Dennyartem Lomeli ACCOUNTING SYSTEMS ANALYST 03/17/2021 [facility] Work Phone: 1(516) 873-260808-24-2022 Evaluation note Includes: Assessments for all patient encounters Findings Encounter Date Bipolar affective disorder, current episode depressed, severe with psychosis Telebehavioral Health with Belkisdionna CoffeyVelarde [facility] 06/15/2022 Assessment of body mass inde x [Body mass index [BMI] 50.0-59.9, adult] Open Access - Established with Leah Monique ACCOUNTING SYSTEMS ANALYST 06/15/2022 Post-traumatic stress disorder Establ ished Patient with Belkis Velarde [facility] 06/08/2022 No cough Medical Established Patient with Denny Armani [facility] 06/08/2022 Z68.43 - Body mass index [BM I] 50.0-59.9, adult Medical Established Patient with Denny Armani [facility] 06/08/2022 Borderline personality disor kyree Pt reported hx of sx/dx Established Patient with Belkis Velarde [facility] 05/27/2022 Assessment of body mass inde x [Body mass index [BMI] 50.0-59.9, adult] Open Access - Established with Leah Monique ACCOUNTING SYSTEMS ANALYST 05/27/2022 Diabetes Risk Test Score was three score 05/27/2022 Open Access - Established with Leah Monique ACCOUNTING SYSTEMS ANALYST 05/27/2022 Bipolar I disorder, most rec ent episode, manic Established Patient with Eufemia Mcneil [facility] 07/15/2021 Borderline personality disorder Estab lished Patient with Eufemia Mcneil [facility] 07/15/2021 Post-traumatic stress disorder Establ ished Patient with Eufemia Mcneil [facility] 07/15/2021 Assessment of visit for: lloyd strange for human immunodeficiency virus Medical Established Patient with Denny Armani ACCOUNTING SYSTEMS ANALYST 07/15/2021 Nicotine dependence Medical Established Patient with Denny Armani ACCOUNTING SYSTEMS ANALYST 07/15/2021 Tachycardia Medical Established Patient with Denny Armani [facility] 07/15/2021 Z68.43 - Body mass index [BM I] 50.0-59.9, adult Medical Established Patient with Denny Armani ACCOUNTING SYSTEMS ANALYST 07/15/2021 Bipolar I disorder, most rec ent episode, manic Established Patient with Kinga Short LISWS 06/17/2021 Borderline personality disor kyree per patient reported history BH Established Patient with Kinga Short LISWS 06/17/2021 Nicotine dependence BH Established Patie nt with Kinga Short LISWS 06/17/2021 Post-traumatic stress disorder Establ ished Patient with Kinga Short LISWS 06/17/2021 Body mass index Medical Established Patient with Denny Armani ACCOUNTING SYSTEMS ANALYST 06/17/2021 Morbid obesity Medical Established Patient with Denny Armani ACCOUNTING SYSTEMS ANALYST 06/17/2021 Nicotine dependence uncomplicated Medica l Established Patient with Denny Armani ACCOUNTING SYSTEMS ANALYST 06/17/2021 Z68.42 - Body mass index [BM I] 45.0-49.9, adult Medical Established Patient with Denny Armani ACCOUNTING SYSTEMS ANALYST 06/17/2021 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 disorders 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 [facility] 05/15/2021 Mood disorders, NOS per blaze ent reported history Established Patient with Kinga Short LISWS 04/23/2021 Post-traumatic stress disorder Establ ished Patient with Kinga Short LISWS 04/23/2021 Morbid obesity Medical Established Patient with Denny Armani ACCOUNTING SYSTEMS ANALYST 04/23/2021 Otitis externa Medical Established Patient with Denny Armani ACCOUNTING SYSTEMS ANALYST 04/23/2021 Z68.42 - Body mass index [BM I] 45.0-49.9, adult Medical Established Patient with Denny Armani ACCOUNTING SYSTEMS ANALYST 04/23/2021 Post-traumatic stress disorder Establ ished Patient with Kinga Short LISWS 04/01/2021 Morbid obesity Medical Established Patient with Denny Armani ACCOUNTING SYSTEMS ANALYST 04/01/2021 Z68.42 - Body mass index [BM I] 45.0-49.9, adult Medical Established Patient with Denny Armani ACCOUNTING SYSTEMS ANALYST 04/01/2021 Post-traumatic stress disorder BH Establ ished Patient with Kinga Short LISWS 03/17/2021 Assessment of visit for: lloyd strange for human immunodeficiency virus Medical New Patient with Denny Lomeli ACCOUNTING SYSTEMS ANALYST 03/17/2021 Diabetes Risk Test Score was one score 03/17/2021 Medical New Patient with Denny Armani ACCOUNTING SYSTEMS ANALYST 03/17/2021 Hypertension Medical New Patient with Denny Lomeli [facility] 03/17/2021 Morbid obesity Medical New Patient with Denny Lomeli [facility] 03/17/2021 Post-traumatic stress disorder Medical N ew Patient with Denny Lomeli [facility] 03/17/2021 Z68.42 - Body mass index [BM I] 45.0-49.9, adult Medical New Patient with Denny Lomeli [facility] 03/17/2021 [facility] Work Phone: 1(868) 265-786608-24-2022 Evaluation note Includes: Assessments for all patient encounters Findings Encounter Date Bipolar affective disorder, current episode depressed, severe with psychosis Telebehavioral Health with Belkisdionna CoffeyVelarde [facility] 06/15/2022 Assessment of body mass inde x [Body mass index [BMI] 50.0-59.9, adult] Open Access - Established with Leah Monique ACCOUNTING SYSTEMS ANALYST 06/15/2022 Bipolar I disorder, most rec ent episode, manic Open Access - Established with Leah Monique ACCOUNTING SYSTEMS ANALYST 06/15/2022 Post-traumatic stress disorder Establ ished Patient with Belkisdionna CoffeyVelarde [facility] 06/08/2022 No cough Medical Established Patient with Denny Lomeli [facility] 06/08/2022 Z68.43 - Body mass index [BM I] 50.0-59.9, adult Medical Established Patient with Denny Lomeli [facility] 06/08/2022 Borderline personality disor kyree Pt reported hx of sx/dx Established Patient [facility] 05/27/2022 Assessment of body mass inde x [Body mass index [BMI] 50.0-59.9, adult] Open Access - Established with Leah Monique ACCOUNTING SYSTEMS ANALYST 05/27/2022 Diabetes Risk Test Score was three score 05/27/2022 Open Access - Established with Leah Monique ACCOUNTING SYSTEMS ANALYST 05/27/2022 Bipolar I disorder, most rec ent episode, manic Established Patient with Eufemiahola Brashers [facility] 07/15/2021 Borderline personality disorder Estab lished Patient with Eufemia Mcneil [facility] 07/15/2021 Post-traumatic stress disorder Establ ished Patient with Eufemia Mcneil [facility] 07/15/2021 Assessment of visit for: lloyd strange for human immunodeficiency virus Medical Established Patient with Denny Armani ACCOUNTING SYSTEMS ANALYST 07/15/2021 Nicotine dependence Medical Established Patient with Denny Armani ACCOUNTING SYSTEMS ANALYST 07/15/2021 Tachycardia Medical Established Patient with Denny Armani ACCOUNTING SYSTEMS ANALYST 07/15/2021 Z68.43 - Body mass index [BM I] 50.0-59.9, adult Medical Established Patient with Denny Armani ACCOUNTING SYSTEMS ANALYST 07/15/2021 Bipolar I disorder, most rec ent episode, manic Established Patient with Kinga Short LISWS 06/17/2021 Borderline personality disor kyree per patient reported history Established Patient with Kinga Short LISWS 06/17/2021 Nicotine dependence BH Established Patie nt with Kinga Short LISWS 06/17/2021 Post-traumatic stress disorder Establ ished Patient with Kinga Short LISWS 06/17/2021 Body mass index Medical Established Patient with Dennyartem Landonen ACCOUNTING SYSTEMS ANALYST 06/17/2021 Morbid obesity Medical Established Patient with Denny Armani ACCOUNTING SYSTEMS ANALYST 06/17/2021 Nicotine dependence uncomplicated Medica l Established Patient with Denny Armani ACCOUNTING SYSTEMS ANALYST 06/17/2021 Z68.42 - Body mass index [BM I] 45.0-49.9, adult Medical Established Patient with Denny Armani ACCOUNTING SYSTEMS ANALYST 06/17/2021 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 disorders 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 [facility] 05/15/2021 Mood disorders, NOS per blaze ent reported history Established Patient with Kinga Short LISWS 04/23/2021 Post-traumatic stress disorder Establ ished Patient with Kinga Short LISWS 04/23/2021 Morbid obesity Medical Established Patient with Denny Armani ACCOUNTING SYSTEMS ANALYST 04/23/2021 Otitis externa Medical Established Patient with Denny Armani ACCOUNTING SYSTEMS ANALYST 04/23/2021 Z68.42 - Body mass index [BM I] 45.0-49.9, adult Medical Established Patient with Denny Armani ACCOUNTING SYSTEMS ANALYST 04/23/2021 Post-traumatic stress disorder Establ ished Patient with Kinga Short LISWS 04/01/2021 Morbid obesity Medical Established Patient with Denny Armani ACCOUNTING SYSTEMS ANALYST 04/01/2021 Z68.42 - Body mass index [BM I] 45.0-49.9, adult Medical Established Patient with Denny Armani ACCOUNTING SYSTEMS ANALYST 04/01/2021 Post-traumatic stress disorder Establ ished Patient with Kinga Short LISWS 03/17/2021 Assessment of visit for: lloyd strange for human immunodeficiency virus Medical New Patient with Denny Lomeli ACCOUNTING SYSTEMS ANALYST 03/17/2021 Diabetes Risk Test Score was one score 03/17/2021 Medical New Patient with Denny Armani [facility] 03/17/2021 Hypertension Medical New Patient with Denny Lomeli ACCOUNTING SYSTEMS ANALYST 03/17/2021 Morbid obesity Medical New Patient with Denny Armani [facility] 03/17/2021 Post-traumatic stress disorder Medical N ew Patient with Denny Lomeli ACCOUNTING SYSTEMS ANALYST 03/17/2021 Z68.42 - Body mass index [BM I] 45.0-49.9, adult Medical New Patient with Denny Lomeli ACCOUNTING SYSTEMS ANALYST 03/17/2021 [facility] Work Phone: 1([phone]) [phone] Evaluation note Includes: Assessments for all patient encounters Findings Encounter Date Bipolar affective disorder, current episode manic Established Patient [facility] 06/15/2022 Bipolar affective disorder, current episode depressed, severe with psychosis Telebehavioral Health with Belkisdionna CoffeyVelarde [facility] 06/15/2022 Assessment of body mass inde x [Body mass index [BMI] 50.0-59.9, adult] Open Access - Established with Leah Amaya CNP 06/15/2022 Bipolar I disorder, most rec ent episode, manic Open Access - Established with Leah Monique ACCOUNTING SYSTEMS ANALYST 06/15/2022 Post-traumatic stress disorder BH Establ ished Patient with [facility]isdionna [facility] 06/08/2022 No cough Medical Established Patient with Denny Armani ACCOUNTING SYSTEMS ANALYST 06/08/2022 Z68.43 - Body mass index [BM I] 50.0-59.9, adult Medical Established Patient with Denny Armani ACCOUNTING SYSTEMS ANALYST 06/08/2022 Borderline personality disor kyree Pt reported hx of sx/dx Established Patient with [facility]isdionna [facility] 05/27/2022 Assessment of body mass inde x [Body mass index [BMI] 50.0-59.9, adult] Open Access - Established with Leah Moniquedemarcus [facility] 05/27/2022 Diabetes Risk Test Score was three score 05/27/2022 Open Access - Established with Leah Monique ACCOUNTING SYSTEMS ANALYST 05/27/2022 Bipolar I disorder, most rec ent episode, manic BH Established Patient with Eufemia Mcneil [facility] 07/15/2021 Borderline personality disorder BH Estab lished Patient with Eufemia Mcneil [facility] 07/15/2021 Post-traumatic stress disorder BH Establ ished Patient with Eufemia Mcneil [facility] 07/15/2021 Assessment of visit for: lloyd strange for human immunodeficiency virus Medical Established Patient with Denny Armani ACCOUNTING SYSTEMS ANALYST 07/15/2021 Nicotine dependence Medical Established Patient with Denny Armani ACCOUNTING SYSTEMS ANALYST 07/15/2021 Tachycardia Medical Established Patient with Denny Armani ACCOUNTING SYSTEMS ANALYST 07/15/2021 Z68.43 - Body mass index [BM I] 50.0-59.9, adult Medical Established Patient with Denny Armani ACCOUNTING SYSTEMS ANALYST 07/15/2021 Bipolar I disorder, most rec ent [...] index Medical Established Patient with Denny Armani ACCOUNTING SYSTEMS ANALYST 06/17/2021 Morbid obesity Medical Established Patient with Denny Armani ACCOUNTING SYSTEMS ANALYST 06/17/2021 Nicotine dependence uncomplicated Medica l Established Patient with Denny Armani ACCOUNTING SYSTEMS ANALYST 06/17/2021 Z68.42 - Body mass index [BM I] 45.0-49.9, adult Medical Established Patient with Denny Armani ACCOUNTING SYSTEMS ANALYST 06/17/2021 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 disorders 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 [facility] 05/15/2021 Mood disorders, NOS per blaze ent reported history BH Established Patient with Kinga Short LISWS 04/23/2021 Post-traumatic stress disorder BH Establ ished Patient with Kinga Short LISWS 04/23/2021 Morbid obesity Medical Established Patient with Denny Armani ACCOUNTING SYSTEMS ANALYST 04/23/2021 Otitis externa Medical Established Patient with Denny Armani ACCOUNTING SYSTEMS ANALYST 04/23/2021 Z68.42 - Body mass index [BM I] 45.0-49.9, adult Medical Established Patient with Denny Armani ACCOUNTING SYSTEMS ANALYST 04/23/2021 Post-traumatic stress disorder BH Establ ished Patient with Kinga Short LISWS 04/01/2021 Morbid obesity Medical Established Patient with Denny Armani ACCOUNTING SYSTEMS ANALYST 04/01/2021 Z68.42 - Body mass index [BM I] 45.0-49.9, adult Medical Established Patient with Denny Armani ACCOUNTING SYSTEMS ANALYST 04/01/2021 Post-traumatic stress disorder BH Establ ished Patient with Kinga Short LISWS 03/17/2021 Assessment of visit for: llody strange for human immunodeficiency virus Medical New Patient with Denny Armnai ACCOUNTING SYSTEMS ANALYST 03/17/2021 Diabetes Risk Test Score was one score 03/17/2021 Medical New Patient with Denny Armani ACCOUNTING SYSTEMS ANALYST 03/17/2021 Hypertension Medical New Patient with Denny Armani ACCOUNTING SYSTEMS ANALYST 03/17/2021 Morbid obesity Medical New Patient with Denny Armani ACCOUNTING SYSTEMS ANALYST 03/17/2021 Post-traumatic stress disorder Medical N ew Patient with Denny Armani ACCOUNTING SYSTEMS ANALYST 03/17/2021 Z68.42 - Body mass index [BM I] 45.0-49.9, adult Medical New Patient with Denny Armani ACCOUNTING SYSTEMS ANALYST 03/17/2021 [facility] Work Phone: 1(857) 536-536808-17-2022 Evaluation note Includes: Assessments for all patient encounters Findings Encounter Date Post-traumatic stress disorder BH Establ ished Patient with Belkisdionna CoffeyVelarde [facility] 06/08/2022 No cough Medical Established Patient with Dneny Armani ACCOUNTING SYSTEMS ANALYST 06/08/2022 Z68.43 - Body mass index [BM I] 50.0-59.9, adult Medical Established Patient with Denny Armani ACCOUNTING SYSTEMS ANALYST 06/08/2022 Borderline personality disor kyree Pt reported hx of sx/dx Established Patient with Belkis Velarde [facility] 05/27/2022 Assessment of body mass inde x [Body mass index [BMI] 50.0-59.9, adult] Open Access - Established with Leah Amaya ACCOUNTING SYSTEMS ANALYST 05/27/2022 Diabetes Risk Test Score was three score 05/27/2022 Open Access - Established with Leah Monique ACCOUNTING SYSTEMS ANALYST 05/27/2022 Bipolar I disorder, most rec ent episode, manic Established Patient with Eufemia Mcneil [facility] 07/15/2021 Borderline personality disorder Estab lished Patient with Eufemiahola Mcneil [facility] 07/15/2021 Post-traumatic stress disorder BH Establ ished Patient with Eufemia Mcneil [facility] 07/15/2021 Assessment of visit for: lloyd strange for human immunodeficiency virus Medical Established Patient with Denny Armani ACCOUNTING SYSTEMS ANALYST 07/15/2021 Nicotine dependence Medical Established Patient with Denny Armani ACCOUNTING SYSTEMS ANALYST 07/15/2021 Tachycardia Medical Established Patient with Denny Armani ACCOUNTING SYSTEMS ANALYST 07/15/2021 Z68.43 - Body mass index [BM I] 50.0-59.9, adult Medical Established Patient with Denny Armani ACCOUNTING SYSTEMS ANALYST 07/15/2021 Bipolar I disorder, most rec ent [...] index Medical Established Patient with Denny Armani ACCOUNTING SYSTEMS ANALYST 06/17/2021 Morbid obesity Medical Established Patient with Denny Armani ACCOUNTING SYSTEMS ANALYST 06/17/2021 Nicotine dependence uncomplicated Medica l Established Patient with Denny Armani ACCOUNTING SYSTEMS ANALYST 06/17/2021 Z68.42 - Body mass index [BM I] 45.0-49.9, adult Medical Established Patient with Denny Armani ACCOUNTING SYSTEMS ANALYST 06/17/2021 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 disorders 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 ACCOUNTING SYSTEMS ANALYST 05/15/2021 Mood disorders, NOS per blaze ent reported history BH Established Patient with Kinga Short LISWS 04/23/2021 Post-traumatic stress disorder BH Establ ished Patient with Kinga Short LISWS 04/23/2021 Morbid obesity Medical Established Patient with Denny Armani ACCOUNTING SYSTEMS ANALYST 04/23/2021 Otitis externa Medical Established Patient with Denny Armani ACCOUNTING SYSTEMS ANALYST 04/23/2021 Z68.42 - Body mass index [BM I] 45.0-49.9, adult Medical Established Patient with Denny Armani ACCOUNTING SYSTEMS ANALYST 04/23/2021 Post-traumatic stress disorder BH Establ ished Patient with Kinga Short LISWS 04/01/2021 Morbid obesity Medical Established Patient with Denny Armani ACCOUNTING SYSTEMS ANALYST 04/01/2021 Z68.42 - Body mass index [BM I] 45.0-49.9, adult Medical Established Patient with Denny Lomeli ACCOUNTING SYSTEMS ANALYST 04/01/2021 Post-traumatic stress disorder BH Establ ished Patient with Kinga Bourgeois LISWS 03/17/2021 Assessment of visit for: lloyd mcgillning for human immunodeficiency virus Medical New Patient with Denny Lomeli ACCOUNTING SYSTEMS ANALYST 03/17/2021 Diabetes Risk Test Score was one score 03/17/2021 Medical New Patient with Denny Lomeli ACCOUNTING SYSTEMS ANALYST 03/17/2021 Hypertension Medical New Patient with Denny Lomeli ACCOUNTING SYSTEMS ANALYST 03/17/2021 Morbid obesity Medical New Patient with Denny Lomeli ACCOUNTING SYSTEMS ANALYST 03/17/2021 Post-traumatic stress disorder Medical N ew Patient with Denny Lomeli [facility] 03/17/2021 Z68.42 - Body mass index [BM I] 45.0-49.9, adult Medical New Patient with Denny Lomeli [facility] 03/17/2021 [facility] Work Phone: 1(192) 563-469108-17-2022 History general Narrative - Reported Includes: Medical [...] psychiatric disorders biopola r disorder 03/17/2021 [facility] [employer] [facility] Work Phone: 1(672) 267-907308-05-2022 Evaluation note Includes: Assessments for all patient encounters Findings Encounter Date Borderline personality disor kryee Pt reported hx of sx/dx BH Established Patient with Belkis Velarde [facility] 05/27/2022 Assessment of body mass inde x [Body mass index [BMI] 50.0-59.9, adult] Open Access - Established with Leah Amaya [facility] 05/27/2022 Diabetes Risk Test Score was three score 05/27/2022 Open Access - Established with Leah Amaya ACCOUNTING SYSTEMS ANALYST 05/27/2022 Bipolar I disorder, most rec ent episode, manic Established Patient with Eufemia Mcneil [facility] 07/15/2021 Borderline personality disorder BH Estab lished Patient with Eufemia Mcneil [facility] 07/15/2021 Post-traumatic stress disorder BH Establ ished Patient with Eufemia Mcneil [facility] 07/15/2021 Assessment of visit for: lloyd strange for human immunodeficiency virus Medical Established Patient with Denny Armani ACCOUNTING SYSTEMS ANALYST 07/15/2021 Nicotine dependence Medical Established Patient with Denny Armani ACCOUNTING SYSTEMS ANALYST 07/15/2021 Tachycardia Medical Established Patient with Denny Armani ACCOUNTING SYSTEMS ANALYST 07/15/2021 Z68.43 - Body mass index [BM I] 50.0-59.9, adult Medical Established Patient with Denny Armani ACCOUNTING SYSTEMS ANALYST 07/15/2021 Bipolar I disorder, most rec ent episode, manic Established Patient with Kinga Short LISWS 06/17/2021 Borderline personality disor kyree per patient reported history BH Established Patient with Kinga Short LISWS 06/17/2021 Nicotine dependence BH Established Patie nt with Kinga Short LISWS 06/17/2021 Post-traumatic stress disorder Establ ished Patient with Kinga Short LISWS 06/17/2021 Body mass index Medical Established Patient with Denny Armani ACCOUNTING SYSTEMS ANALYST 06/17/2021 Morbid obesity Medical Established Patient with Denny Armani ACCOUNTING SYSTEMS ANALYST 06/17/2021 Nicotine dependence uncomplicated Medica l Established Patient with Denny Armani ACCOUNTING SYSTEMS ANALYST 06/17/2021 Z68.42 - Body mass index [BM I] 45.0-49.9, adult Medical Established Patient with Denny Armani ACCOUNTING SYSTEMS ANALYST 06/17/2021 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 disorders 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 ACCOUNTING SYSTEMS ANALYST 05/15/2021 Mood disorders, NOS per blaze ent reported history BH Established Patient with Kinga Short LISWS 04/23/2021 Post-traumatic stress disorder BH Establ ished Patient with Kinga Short LISWS 04/23/2021 Morbid obesity Medical Established Patient with Denny Armani ACCOUNTING SYSTEMS ANALYST 04/23/2021 Otitis externa Medical Established Patient with Denny Armani ACCOUNTING SYSTEMS ANALYST 04/23/2021 Z68.42 - Body mass index [BM I] 45.0-49.9, adult Medical Established Patient with Denny Lomeli ACCOUNTING SYSTEMS ANALYST 04/23/2021 Post-traumatic stress disorder BH Establ ished Patient with Kinga Short LISWS 04/01/2021 Morbid obesity Medical Established Patient with Dennyartem Lomeli ACCOUNTING SYSTEMS ANALYST 04/01/2021 Z68.42 - Body mass index [BM I] 45.0-49.9, adult Medical Established Patient with Denny Lomeli ACCOUNTING SYSTEMS ANALYST 04/01/2021 Post-traumatic stress disorder BH Establ ished Patient with Kinga Short LISWS 03/17/2021 Assessment of visit for: lloyd strange for human immunodeficiency virus Medical New Patient with Dennyartem Landonen ACCOUNTING SYSTEMS ANALYST 03/17/2021 Diabetes Risk Test Score was one score 03/17/2021 Medical New Patient with Dennyartem Lomeli ACCOUNTING SYSTEMS ANALYST 03/17/2021 Hypertension Medical New Patient with Denny Armani ACCOUNTING SYSTEMS ANALYST 03/17/2021 Morbid obesity Medical New Patient with Denny Lomeli ACCOUNTING SYSTEMS ANALYST 03/17/2021 Post-traumatic stress disorder Medical N ew Patient with Denny Armani ACCOUNTING SYSTEMS ANALYST 03/17/2021 Z68.42 - Body mass index [BM I] 45.0-49.9, adult Medical New Patient with Dennyartem Lomeli ACCOUNTING SYSTEMS ANALYST 03/17/2021 [facility] Work Phone: 1(852) 388-141008-05-2022 Reason for referral (narrative)* Date Encounter Description Provider Reason for Referral 05/27/22 Established Patient Belkis Velarde RASHAD CC-S Referral To Mental Health Team 03/17/21 Medical New Patient Denny Lomeli CNP Refe rral To Mental Health Team [facility] Work Phone: 1(974) 607-102610-04-2021 History of Present illness Narrative* Jazmine Dodge - 07/26/2021 1:30 PM EDT Explained Holter monitor and diary. [facility](365) [phone] Evaluation note Includes: Assessments for all patient encounters Findings Encounter Date Bipolar I disorder, most rec ent episode, manic BH Established Patient with Eufemia Mcneil [facility] 07/15/2021 Borderline personality disorder BH Estab lished Patient with Eufemia Spencemons [facility] 07/15/2021 Assessment of visit for: lloyd strange for human immunodeficiency virus Medical Established Patient with Denny Armani ACCOUNTING SYSTEMS ANALYST 07/15/2021 Nicotine dependence Medical Established Patient with Denny Armani ACCOUNTING SYSTEMS ANALYST 07/15/2021 Tachycardia Medical Established Patient with Denny Armani ACCOUNTING SYSTEMS ANALYST 07/15/2021 Z68.43 - Body mass index [BM I] 50.0-59.9, adult Medical Established Patient with Denny Armani ACCOUNTING SYSTEMS ANALYST 07/15/2021 Bipolar I disorder, most rec ent episode, manic Established Patient with Kinga Short LISWS 06/17/2021 Borderline personality disor kyree per patient reported history Established Patient with Kinga Short LISWS 06/17/2021 Nicotine dependence BH Established Patie nt with Kinga Short LISWS 06/17/2021 Post-traumatic stress disorder Establ ished Patient with Kinga Short LISWS 06/17/2021 Body mass index Medical Established Patient with Denny Armani ACCOUNTING SYSTEMS ANALYST 06/17/2021 Morbid obesity Medical Established Patient with Denny Armani ACCOUNTING SYSTEMS ANALYST 06/17/2021 Nicotine dependence uncomplicated Medica l Established Patient with Denny Armani ACCOUNTING SYSTEMS ANALYST 06/17/2021 Z68.42 - Body mass index [BM I] 45.0-49.9, adult Medical Established Patient with Denny Armani ACCOUNTING SYSTEMS ANALYST 06/17/2021 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 disorders 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 [facility] 05/15/2021 Mood disorders, NOS per blaze ent reported history Established Patient with Kinga Short LISWS 04/23/2021 Post-traumatic stress disorder Establ ished Patient with Kinga Short LISWS 04/23/2021 Morbid obesity Medical Established Patient with Denny Armani ACCOUNTING SYSTEMS ANALYST 04/23/2021 Otitis externa Medical Established Patient with Denny Armani ACCOUNTING SYSTEMS ANALYST 04/23/2021 Z68.42 - Body mass index [BM I] 45.0-49.9, adult Medical Established Patient with Denny Armani ACCOUNTING SYSTEMS ANALYST 04/23/2021 Post-traumatic stress disorder BH Establ ished Patient with Kinga Short LISWS 04/01/2021 Morbid obesity Medical Established Patient with Denny Armani ACCOUNTING SYSTEMS ANALYST 04/01/2021 Z68.42 - Body mass index [BM I] 45.0-49.9, adult Medical Established Patient with Denny Armani ACCOUNTING SYSTEMS ANALYST 04/01/2021 Post-traumatic stress disorder Establ ished Patient with Kinga Short LISWS 03/17/2021 Assessment of visit for: scr eening for human immunodeficiency virus Medical New Patient with Dennyartem Landonen ACCOUNTING SYSTEMS ANALYST 03/17/2021 Diabetes Risk Test Score was one score 03/17/2021 Medical New Patient with Denny Armani ACCOUNTING SYSTEMS ANALYST 03/17/2021 Hypertension Medical New Patient with Denny Armani ACCOUNTING SYSTEMS ANALYST 03/17/2021 Morbid obesity Medical New Patient with Denny Armani ACCOUNTING SYSTEMS ANALYST 03/17/2021 Post-traumatic stress disorder Medical N ew Patient with Dneny Armani ACCOUNTING SYSTEMS ANALYST 03/17/2021 Z68.42 - Body mass index [BM I] 45.0-49.9, adult Medical New Patient with Denny Armani ACCOUNTING SYSTEMS ANALYST 03/17/2021 [facility] Work Phone: 1(304) 576-283909-23-2021 Evaluation note Includes: Assessments for all patient [...] virus Medical Established Patient with Denny Armani ACCOUNTING SYSTEMS ANALYST 07/15/2021 Nicotine dependence Medical Established Patient with Denny Armani ACCOUNTING SYSTEMS ANALYST 07/15/2021 Tachycardia Medical Established Patient with Denny Armani ACCOUNTING SYSTEMS ANALYST 07/15/2021 Z68.43 - Body mass index [BM I] 50.0-59.9, adult Medical Established Patient with Denny Armani ACCOUNTING SYSTEMS ANALYST 07/15/2021 Bipolar I disorder, most rec ent episode, manic Established Patient with Kinga Short LISWS 06/17/2021 Borderline personality disor kyree per patient reported history BH Established Patient with Kinga Short LISWS 06/17/2021 Nicotine dependence Established Patie nt with Kinga Short LISWS 06/17/2021 Post-traumatic stress disorder BH Establ ished Patient with Kinga Short LISWS 06/17/2021 Body mass index Medical Established Patient with Denny Armani ACCOUNTING SYSTEMS ANALYST 06/17/2021 Morbid obesity Medical Established Patient with Denny Armani ACCOUNTING SYSTEMS ANALYST 06/17/2021 Nicotine dependence uncomplicated Medica l Established Patient with Denny Armani ACCOUNTING SYSTEMS ANALYST 06/17/2021 Z68.42 - Body mass index [BM I] 45.0-49.9, adult Medical Established Patient with Denny Armani ACCOUNTING SYSTEMS ANALYST 06/17/2021 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 disorders 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 [facility] 05/15/2021 Mood disorders, NOS per blaze ent reported history BH Established Patient with Kinga Short LISWS 04/23/2021 Post-traumatic stress disorder BH Establ ished Patient with Kinga Short LISWS 04/23/2021 Morbid obesity Medical Established Patient with Denny Armani ACCOUNTING SYSTEMS ANALYST 04/23/2021 Otitis externa Medical Established Patient with Denny Armani ACCOUNTING SYSTEMS ANALYST 04/23/2021 Z68.42 - Body mass index [BM I] 45.0-49.9, adult Medical Established Patient with Denny Armani ACCOUNTING SYSTEMS ANALYST 04/23/2021 Post-traumatic stress disorder BH Establ ished Patient with Kinga Short LISWS 04/01/2021 Morbid obesity Medical Established Patient with Denny Armani ACCOUNTING SYSTEMS ANALYST 04/01/2021 Z68.42 - Body mass index [BM I] 45.0-49.9, adult Medical Established Patient with Denny Armani ACCOUNTING SYSTEMS ANALYST 04/01/2021 Post-traumatic stress disorder BH Establ ished Patient with Kinga Short LISWS 03/17/2021 Assessment of visit for: lloyd strange for human immunodeficiency virus Medical New Patient with Denny Armani ACCOUNTING SYSTEMS ANALYST 03/17/2021 Diabetes Risk Test Score was one score 03/17/2021 Medical New Patient with Denny Armani ACCOUNTING SYSTEMS ANALYST 03/17/2021 Hypertension Medical New Patient with Denny Armani ACCOUNTING SYSTEMS ANALYST 03/17/2021 Morbid obesity Medical New Patient with Denny Armani ACCOUNTING SYSTEMS ANALYST 03/17/2021 Post-traumatic stress disorder Medical N ew Patient with Denny Armani ACCOUNTING SYSTEMS ANALYST 03/17/2021 Z68.42 - Body mass index [BM I] 45.0-49.9, adult Medical New Patient with Denny Armani ACCOUNTING SYSTEMS ANALYST 03/17/2021 [facility] Work Phone: 1([phone]) [phone] Evaluation note Includes: Assessments for all patient [...] index Medical Established Patient with Denny Armani ACCOUNTING SYSTEMS ANALYST 06/17/2021 Morbid obesity Medical Established Patient with Denny Armani ACCOUNTING SYSTEMS ANALYST 06/17/2021 Nicotine dependence uncomplicated Medica l Established Patient with Denny Armani ACCOUNTING SYSTEMS ANALYST 06/17/2021 Z68.42 - Body mass index [BM I] 45.0-49.9, adult Medical Established Patient with Denny Armani ACCOUNTING SYSTEMS ANALYST 06/17/2021 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 disorders 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 ACCOUNTING SYSTEMS ANALYST 05/15/2021 Mood disorders, NOS per blaze ent reported history Established Patient with Kinga Short LISWS 04/23/2021 Post-traumatic stress disorder Establ ished Patient with Kinga Short LISWS 04/23/2021 Morbid obesity Medical Established Patient with Denny Armani ACCOUNTING SYSTEMS ANALYST 04/23/2021 Otitis externa Medical Established Patient with Denny Armani ACCOUNTING SYSTEMS ANALYST 04/23/2021 Z68.42 - Body mass index [BM I] 45.0-49.9, adult Medical Established Patient with Denny Armani ACCOUNTING SYSTEMS ANALYST 04/23/2021 Post-traumatic stress disorder Establ ished Patient with Kinga Short LISWS 04/01/2021 Morbid obesity Medical Established Patient with Denny Armani ACCOUNTING SYSTEMS ANALYST 04/01/2021 Z68.42 - Body mass index [BM I] 45.0-49.9, adult Medical Established Patient with Denny Armani ACCOUNTING SYSTEMS ANALYST 04/01/2021 Post-traumatic stress disorder Establ ished Patient with Kinga Short LISWS 03/17/2021 Assessment of visit for: lloyd strange for human immunodeficiency virus Medical New Patient with Denny Armani ACCOUNTING SYSTEMS ANALYST 03/17/2021 Diabetes Risk Test Score was one score 03/17/2021 Medical New Patient with Denny Armani ACCOUNTING SYSTEMS ANALYST 03/17/2021 Hypertension Medical New Patient with Denny Lomeli ACCOUNTING SYSTEMS ANALYST 03/17/2021 Morbid obesity Medical New Patient with Dennyartem Landonen ACCOUNTING SYSTEMS ANALYST 03/17/2021 Post-traumatic stress disorder Medical N ew Patient with Denny Armani ACCOUNTING SYSTEMS ANALYST 03/17/2021 Z68.42 - Body mass index [BM I] 45.0-49.9, adult Medical New Patient with Denny Lomeli ACCOUNTING SYSTEMS ANALYST 03/17/2021 [facility] Work Phone: 1(657) 432-335307-26-2021 History general Narrative - Reported Includes: Medical History in patient's chart Description Last Updated Chronic illness 05/17/2021 Exposure to COVID-19 04/23/2021 Previous hospitalizations 04/23/2021 History of gynecologic disorder 03/17/20 21 History of Polycystic Ovarian Syndrome ( PCOS) 03/17/2021 History of anxiety disorder NOS 03/17/20 21 History of migraine headache 03/17/2021 History of psychiatric disorders biopola r disorder 03/17/2021 [facility] Work Phone: 1([phone]) 344-328107-24-2021 Evaluation note Includes: Assessments for all patient encounters Findings Encounter Date 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 disorders 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 CNP 05/15/2021 Mood disorders, NOS per blaze ent reported history Established Patient with Kinga Short LISWS 04/23/2021 Post-traumatic stress disorder Establ ished Patient with Kinga Short LISWS 04/23/2021 Morbid obesity Medical Established Patient with Dennyartem Landonen ACCOUNTING SYSTEMS ANALYST 04/23/2021 Otitis externa Medical Established Patient with Denny Armani ACCOUNTING SYSTEMS ANALYST 04/23/2021 Z68.42 - Body mass index [BM I] 45.0-49.9, adult Medical Established Patient with Denny Armani ACCOUNTING SYSTEMS ANALYST 04/23/2021 Post-traumatic stress disorder BH Establ ished Patient with Kinga Short LISWS 04/01/2021 Morbid obesity Medical Established Patient with Denny Armani ACCOUNTING SYSTEMS ANALYST 04/01/2021 Z68.42 - Body mass index [BM I] 45.0-49.9, adult Medical Established Patient with Denny Armani ACCOUNTING SYSTEMS ANALYST 04/01/2021 Post-traumatic stress disorder BH Establ ished Patient with Kinga Short LISWS 03/17/2021 Assessment of visit for: lloyd strange for human immunodeficiency virus Medical New Patient with Denny Armani ACCOUNTING SYSTEMS ANALYST 03/17/2021 Diabetes Risk Test Score was one score 03/17/2021 Medical New Patient with Denny Armani ACCOUNTING SYSTEMS ANALYST 03/17/2021 Hypertension Medical New Patient with Denny Armani ACCOUNTING SYSTEMS ANALYST 03/17/2021 Morbid obesity Medical New Patient with Denny Armani ACCOUNTING SYSTEMS ANALYST 03/17/2021 Post-traumatic stress disorder Medical N ew Patient with Denny Armani ACCOUNTING SYSTEMS ANALYST 03/17/2021 Z68.42 - Body mass index [BM I] 45.0-49.9, adult Medical New Patient with Denny Armani ACCOUNTING SYSTEMS ANALYST 03/17/2021 [facility] Work Phone: 1([phone]) 900-998807-02-2021 Evaluation note Includes: Assessments for all patient encounters Findings Encounter Date Mood disorders, NOS per blaze ent reported history BH Established Patient with Kinga Short LISWS 04/23/2021 Post-traumatic stress disorder BH Establ ished Patient with Kinga Short LISWS 04/23/2021 Morbid obesity Medical Established Patient with Denny Armani ACCOUNTING SYSTEMS ANALYST 04/23/2021 Otitis externa Medical Established Patient with Denny Armani ACCOUNTING SYSTEMS ANALYST 04/23/2021 Z68.42 - Body mass index [BM I] 45.0-49.9, adult Medical Established Patient with Denny Armani ACCOUNTING SYSTEMS ANALYST 04/23/2021 Post-traumatic stress disorder BH Establ ished Patient with Kinga Short LISWS 04/01/2021 Morbid obesity Medical Established Patient with Denny Armani ACCOUNTING SYSTEMS ANALYST 04/01/2021 Z68.42 - Body mass index [BM I] 45.0-49.9, adult Medical Established Patient with Denny Armani ACCOUNTING SYSTEMS ANALYST 04/01/2021 Post-traumatic stress disorder BH Establ ished Patient with Kinga Short LISWS 03/17/2021 Assessment of visit for: lloyd strange for human immunodeficiency virus Medical New Patient with Denny Armani ACCOUNTING SYSTEMS ANALYST 03/17/2021 Diabetes Risk Test Score was one score 03/17/2021 Medical New Patient with Denny Armani ACCOUNTING SYSTEMS ANALYST 03/17/2021 Hypertension Medical New Patient with Denny Armani ACCOUNTING SYSTEMS ANALYST 03/17/2021 Morbid obesity Medical New Patient with Denny Armani ACCOUNTING SYSTEMS ANALYST 03/17/2021 Post-traumatic stress disorder Medical N ew Patient with Denny Armani ACCOUNTING SYSTEMS ANALYST 03/17/2021 Z68.42 - Body mass index [BM I] 45.0-49.9, adult Medical New Patient with Denny Lomeli ACCOUNTING SYSTEMS ANALYST 03/17/2021 [facility] Work Phone: 1(911) [phone] History general Narrative - Reported Includes: Medical History in patient's chart Description Last Updated Exposure to COVID-19 04/23/2021 Previous hospitalizations 04/23/2021 History of gynecologic disorder 03/17/20 21 History of Polycystic Ovarian Syndrome ( PCOS) 03/17/2021 History of anxiety disorder NOS 03/17/20 21 History of migraine headache 03/17/2021 History of psychiatric disorders biopola r disorder 03/17/2021 [facility] Work Phone: 1([phone]) 145-917007-02-2021 History general Narrative - Reported Includes: Medical History in patient's chart Description Last Updated Chronic illness 05/17/2021 Exposure to COVID-19 04/23/2021 Previous hospitalizations 04/23/2021 History of gynecologic disorder 03/17/20 21 History of Polycystic Ovarian Syndrome ( PCOS) 03/17/2021 History of anxiety disorder NOS 03/17/20 21 History of migraine headache 03/17/2021 History of psychiatric disorders biopola r disorder 03/17/2021 [facility] Work Phone: 1([phone]) 256-501406-10-2021 Evaluation note Includes: Assessments for all patient encounters Findings Encounter Date Morbid obesity Medical Established Patient with Denny Lomeli ACCOUNTING SYSTEMS ANALYST 04/01/2021 Z68.42 - Body mass index [BM I] 45.0-49.9, adult Medical Established Patient with Denny Lomeli ACCOUNTING SYSTEMS ANALYST 04/01/2021 Post-traumatic stress disorder Establ ished Patient with Kinga Short LISWS 03/17/2021 Assessment of visit for: lloyd strange for human immunodeficiency virus Medical New Patient with Denny Lomeli ACCOUNTING SYSTEMS ANALYST 03/17/2021 Diabetes Risk Test Score was one score 03/17/2021 Medical New Patient with Denny Lomeli ACCOUNTING SYSTEMS ANALYST 03/17/2021 Hypertension Medical New Patient with Denny Lomeli ACCOUNTING SYSTEMS ANALYST 03/17/2021 Morbid obesity Medical New Patient with Denny Lomeli ACCOUNTING SYSTEMS ANALYST 03/17/2021 Post-traumatic stress disorder Medical N ew Patient with Denny Lomeli CNP 03/17/2021 Z68.42 - Body mass index [BM I] 45.0-49.9, adult Medical New Patient with Denny Lomeli CNP 03/17/2021 [facility] Work Phone: 1(409) [phone] Evaluation note Includes: Assessments for all patient [...] New Patient with Denny Lomeli CNP 03/17/2021 [facility] Work Phone: 1(750) 616-608305-26-2021 History general Narrative - Reported Includes: Medical History in patient's chart Description Last Updated History of gynecologic disorder 03/17/20 21 History of Polycystic Ovarian Syndrome ( PCOS) 03/17/2021 History of anxiety disorder NOS 03/17/20 21 History of migraine headache 03/17/2021 History of psychiatric disorders biopola r disorder 03/17/2021 [facility] Work Phone: 1(281) [phone] History general Narrative - Reported Includes: Medical History in patient's chart Description Last Updated Exposure to COVID-19 04/23/2021 Previous hospitalizations 04/23/2021 History of gynecologic disorder 03/17/20 21 History of Polycystic Ovarian Syndrome ( PCOS) 03/17/2021 History of anxiety disorder NOS 03/17/20 21 History of migraine headache 03/17/2021 History of psychiatric disorders biopola r disorder 03/17/2021 [facility] Work Phone: Evaluation note* Diagnosis Depression with suicidal ideation- Primary documented in this encounter [employer] Phone: evaluation note Includes: Assessments for all patient encounters Findings Encounter Date Morbid obesity Medical Established Patient with Denny Armani ACCOUNTING SYSTEMS ANALYST 04/23/2021 Otitis externa Medical Established Patient with Denny Armani ACCOUNTING SYSTEMS ANALYST 04/23/2021 Z68.42 - Body mass index [BM I] 45.0-49.9, adult Medical Established Patient with Denny Armani ACCOUNTING SYSTEMS ANALYST 04/23/2021 Post-traumatic stress disorder BH Establ ished Patient with Kinga Short LISWS 04/01/2021 Morbid obesity Medical Established Patient with Denny Armani ACCOUNTING SYSTEMS ANALYST 04/01/2021 Z68.42 - Body mass index [BM I] 45.0-49.9, adult Medical Established Patient with Denny Armani ACCOUNTING SYSTEMS ANALYST 04/01/2021 Post-traumatic stress disorder BH Establ ished Patient with Kinga Short LISWS 03/17/2021 Assessment of visit for: lloyd strange for human immunodeficiency virus Medical New Patient with Denny Armani ACCOUNTING SYSTEMS ANALYST 03/17/2021 Diabetes Risk Test Score was one score 03/17/2021 Medical New Patient with Denny Armani ACCOUNTING SYSTEMS ANALYST 03/17/2021 Hypertension Medical New Patient with Denny Armani ACCOUNTING SYSTEMS ANALYST 03/17/2021 Morbid obesity Medical New Patient with Denny Armani ACCOUNTING SYSTEMS ANALYST 03/17/2021 Post-traumatic stress disorder Medical N ew Patient with Denny Armani ACCOUNTING SYSTEMS ANALYST 03/17/2021 Z68.42 - Body mass index [BM I] 45.0-49.9, adult Medical New Patient with Denny Armani ACCOUNTING SYSTEMS ANALYST 03/17/2021 [facility] Work Phone: Evaluation note* Diagnosis Anxiety state- Primary Anxiety state, unspecified documented in this encounter [employer] [facility] Phone: evaluation note* Diagnosis Bipolar 1 disorder (HCC)- Primary Bipolar I disorder, most recent episode (or current) unspecified Homicidal ideation documented in this encounter [facility] Phone: evalblzfbh note* Diagnosis Tachycardia Tachycardia, unspecified documented in this encounter [facility] Phone: evaluation note Includes: Assessments for all patient encounters Findings Encounter Date [D50.9 - Iron deficiency ane eduardo, unspecified] iron deficiency anemia Chart Update with Denny Lomeli ACCOUNTING SYSTEMS ANALYST 07/29/2024 Last Documented On 4 12:07PM ; [facility] Attention-deficit hyperactivity disorder Established Patient with Sarai Alberts ELECTRONIC [employer]S SALESPERSON 07/18/2024 Last Documented On 4 4:15PM ; [facility] Bipolar I disorder, most rec ent episode, depressed - mild BH Established Patient with Sarai Alberts [employer] SALESPERSON 07/18/2024 Last Documented On 4 4:15PM ; [facility] Nicotine dependence Established Patient with Sarai Alberts [employer] SALESPERSON 07/18/2024 Last Documented On 4 4:15PM ; [facility] Post-traumatic stress disorder Establ ished Patient with Sarai Alberts [employer]IC [employer]S SALESPERSON 07/18/2024 Last Documented On 4 4:15PM ; [facility] [Z68.43 - Body mass index [B ID] 50.0-59.9, adult] assessment of body mass index Medical Established Patient with Denny Lomeli ACCOUNTING SYSTEMS ANALYST 07/18/2024 Last Documented On 4 1:56PM ; [facility] Bipolar I disorder, most rec ent episode, depressed - mild Medical Established Patient with Dennyartem Lomeli ACCOUNTING SYSTEMS ANALYST 07/18/2024 Last Documented On 4 1:56PM ; [facility] Caries Medical Established Patient with Denny Lomeli ACCOUNTING SYSTEMS ANALYST 07/18/2024 Last Documented On 4 1:56PM ; [facility] Encounter for Immunization Medical Estab lished Patient with Denny Lomeli ACCOUNTING SYSTEMS ANALYST 07/18/2024 Last Documented On 4 1:56PM ; [facility] Type 2 diabetes mellitus wit hout complication Medical Established Patient with Dennyartem Landonen ACCOUNTING SYSTEMS ANALYST 07/18/2024 Last Documented On 4 1:56PM ; [facility] Attention-deficit hyperactivity disorder Established Patient with Kinga Short LISWS 06/13/2024 Last Documented On 4 3:28PM ; [facility] Bipolar I disorder, most rec ent episode, depressed - mild Established Patient with Kinga Short LISWS 06/13/2024 Last Documented On 4 3:28PM ; [facility] Post-traumatic stress disorder BH Establ ished Patient with Kinga Short LISWS 06/13/2024 Last Documented On 4 3:28PM ; [facility] [E11.9 - Type 2 diabetes gloria litus without complications] type 2 diabetes mellitus Medical Established Patient with Denny Lomeli ACCOUNTING SYSTEMS ANALYST 06/13/2024 Last Documented On 4 7:36PM ; [facility] [F41.1 - Generalized anxiety disorder] generalized anxiety disorder Medical Established Patient with Denny Lomeli ACCOUNTING SYSTEMS ANALYST 06/13/2024 Last Documented On 4 7:36PM ; [facility] [I10 - Essential (primary) hypertension] essential hypertension Medical Established Patient with Denny Lomeli ACCOUNTING SYSTEMS ANALYST 06/13/2024 Last Documented On 4 7:36PM ; [facility] [N94.6 - Dysmenorrhea, unspe cified] dysmenorrhea Medical Established Patient with Denny Lomeli ACCOUNTING SYSTEMS ANALYST 06/13/2024 Last Documented On 4 7:36PM ; [facility] [Z68.43 - Body mass index [B ID] 50.0-59.9, adult] assessment of body mass index Medical Established Patient with Denny Lomeli ACCOUNTING SYSTEMS ANALYST 06/13/2024 Last Documented On 4 7:36PM ; [facility] Encounter for Immunization Medical Estab lished Patient with Denny Lomeli ACCOUNTING SYSTEMS ANALYST 06/13/2024 Last Documented On 4 7:36PM ; [facility] Venipuncture was performed Medical Estab lished Patient with Denny Lomeli ACCOUNTING SYSTEMS ANALYST 06/13/2024 Last Documented On 4 7:36PM ; [facility] Attention-deficit hyperactivity disorder Established Patient with Kinga Short LISWS 04/10/2024 Last Documented On 4 10:10AM ; [facility] Bipolar I disorder, most rec ent episode, depressed - mild Established Patient with Kinga Short LISWS 04/10/2024 Last Documented On 4 10:10AM ; [facility] Post-traumatic stress disorder Establ ished Patient with Kinga Short LISWS 04/10/2024 Last Documented On 4 10:10AM ; [facility] [D64.9 - Anemia, unspecified] anemia Med ical Established Patient with Dennyartem Lomeli ACCOUNTING SYSTEMS ANALYST 04/10/2024 Last Documented On 4 6:51PM ; [facility] [Z68.43 - Body mass index [B ID] 50.0-59.9, adult] assessment of body mass index Medical Established Patient with Denny Lomeli ACCOUNTING SYSTEMS ANALYST 04/10/2024 Last Documented On 4 6:51PM ; [facility] Bipolar affective disorder, current episode depressed, mild Established Patient with Kinga Short LISWS 01/17/2024 Last Documented On 4 5:16PM ; [facility] Post-traumatic stress disorder Establ ished Patient with Kinga Short LISWS 01/17/2024 Last Documented On 4 5:16PM ; [facility] Undifferentiated attention d eficit disorder Established Patient with Kinga Short LISWS 01/17/2024 Last Documented On 4 5:16PM ; [facility] Visit for: screening for disorder Est ablished Patient with Kinga Short LISWS 01/17/2024 Last Documented On 4 5:16PM ; [facility] [Z68.43 - Body mass index [B ID] 50.0-59.9, adult] assessment of body mass index Medical Established Patient with Denny Lomeli ACCOUNTING SYSTEMS ANALYST 01/17/2024 Last Documented On 4 7:50PM ; [facility] Attention-deficit hyperactivity disorder Medical Established Patient with Dennyartem Landonen ACCOUNTING SYSTEMS ANALYST 01/17/2024 Last Documented On 4 7:50PM ; [facility] Diabetes Risk Test Score was three score 01/17/2024 Medical Established Patient with Dennyartem Lomeli ACCOUNTING SYSTEMS ANALYST 01/17/2024 Last Documented On 4 7:50PM ; [facility] Visit for: screening for STD Medical Est ablished Patient with Dennyartem Lomeli ACCOUNTING SYSTEMS ANALYST 01/17/2024 Last Documented On 4 7:50PM ; [facility] [Z68.32 - Body mass index [B ID] 32.0-32.9, adult] assessment of body mass index Medical Established Patient with Denny Lomeli ACCOUNTING SYSTEMS ANALYST 05/10/2023 Last Documented On 3 6:01PM ; [facility] Borderline personality disorder Medical Established Patient with Dennyartem Lomeli ACCOUNTING SYSTEMS ANALYST 05/10/2023 Last Documented On 3 6:01PM ; [facility] Screening for diabetes mellitus Medical Established Patient with Dennyartem Landonen ACCOUNTING SYSTEMS ANALYST 05/10/2023 Last Documented On 3 6:01PM ; [facility] Assessment of body mass index Medical Es tablished Patient with Denny Lomeli ACCOUNTING SYSTEMS ANALYST 08/12/2022 Last Documented On 2 2:45PM ; [facility] Bipolar affective disorder, current episode manic [facility] with Belkis Velarde [facility] 06/16/2022 Last Documented On 2 3:22PM ; [facility] Bipolar affective disorder, current episode manic Established Patient with Belkis Velarde [facility] 06/15/2022 Last Documented On 2 2:28PM ; [facility] Bipolar affective disorder, current episode depressed, severe with psychosis [facility] with Belkis Velarde [facility] 06/15/2022 Last Documented On 2 3:29PM ; [facility] Assessment of body mass inde x [Body mass index [BMI] 50.0-59.9, adult] Open Access - Established with Leah Monique ACCOUNTING SYSTEMS ANALYST 06/15/2022 Last Documented On 2 9:36AM ; [facility] Bipolar I disorder, most rec ent episode, manic Open Access - Established with Leah Monique ACCOUNTING SYSTEMS ANALYST 06/15/2022 Last Documented On 2 9:36AM ; [facility] Post-traumatic stress disorder Establ ished Patient with Belkis Velarde [facility] 06/08/2022 Last Documented On 2 3:20PM ; [facility] No cough Medical Established Patient with Dennyartem Lomeli ACCOUNTING SYSTEMS ANALYST 06/08/2022 Last Documented On 2 4:04PM ; [facility] Z68.43 - Body mass index [BM I] 50.0-59.9, adult Medical Established Patient with Dennyartem Lomeli [facility] 06/08/2022 Last Documented On 2 4:04PM ; [facility] Borderline personality disor kyree Pt reported hx of sx/dx Established Patient with Belkis Velarde [facility] 05/27/2022 Last Documented On 2 4:08PM ; [facility] Assessment of body mass inde x [Body mass index [BMI] 50.0-59.9, adult] Open Access - Established with Leah Amaya [facility] 05/27/2022 Last Documented On 2 7:41PM ; [facility] Diabetes Risk Test Score was three score 05/27/2022 Open Access - Established with Leah Monique [facility] 05/27/2022 Last Documented On 2 7:41PM ; [facility] Bipolar I disorder, most rec ent episode, manic [facility]21 Last Documented On 1 1:35AM ; [facility] Borderline personality disorder Estab lished Patient with Eufemia Mcneil [facility] 07/15/2021 Last Documented On 1 1:35AM ; [facility] Post-traumatic stress disorder Establ ished Patient with [facility] 07/15/2021 Last Documented On 1 1:35AM ; [facility] Assessment of visit for: lloyd strange for human immunodeficiency virus Medical Established Patient with Dennyartem Landonen [facility] 07/15/2021 Last Documented On 1 2:56PM ; [facility] Nicotine dependence Medical Established Patient with Denny Armani [facility] 07/15/2021 Last Documented On 1 2:56PM ; [facility] Tachycardia Medical Established Patient with Denny Armani [facility] 07/15/2021 Last Documented On 1 2:56PM ; [facility] Z68.43 - Body mass index [BM I] 50.0-59.9, adult Medical Established Patient with Denny Lomeli ACCOUNTING SYSTEMS ANALYST 07/15/2021 Last Documented On 1 2:56PM ; [facility] Bipolar I disorder, most rec ent episode, manic Established Patient with Kinga Short LISWS 06/17/2021 Last Documented On 1 10:17AM ; [facility] Borderline personality disor kyree per patient reported history Established Patient with Kinga Short LISWS 06/17/2021 Last Documented On 1 10:17AM ; [facility] Nicotine dependence Established Patient with Kinga Short LISWS 06/17/2021 Last Documented On 1 10:17AM ; [facility] Post-traumatic stress disorder Establ ished Patient with Kinga Short LISWS 06/17/2021 Last Documented On 1 10:17AM ; [facility] Body mass index Medical Established Patient with Denny Lomeli ACCOUNTING SYSTEMS ANALYST 06/17/2021 Last Documented On 1 5:23PM ; [facility] Morbid obesity Medical Established Patient with Denny Armani ACCOUNTING SYSTEMS ANALYST 06/17/2021 Last Documented On 1 5:23PM ; [facility] Nicotine dependence uncomplicated Medica l Established Patient with Dennyartem Lomeli ACCOUNTING SYSTEMS ANALYST 06/17/2021 Last Documented On 1 5:23PM ; [facility] Z68.42 - Body mass index [BM I] 45.0-49.9, adult Medical Established Patient with Denny Lomeli ACCOUNTING SYSTEMS ANALYST 06/17/2021 Last Documented On 1 5:23PM ; [facility] 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 disorders 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 ACCOUNTING SYSTEMS ANALYST 05/15/2021 Last Documented On 1 7:49AM ; [facility] Mood disorders, NOS per blaze ent reported history Established Patient with Kinga Short LISWS 04/23/2021 Last Documented On 1 7:15PM ; [facility] Post-traumatic stress disorder Establ ished Patient with Kinga Short LISWS 04/23/2021 Last Documented On 1 7:15PM ; [facility] Morbid obesity Medical Established Patient with Denny Armani ACCOUNTING SYSTEMS ANALYST 04/23/2021 Last Documented On 12:31PM ; [facility] Otitis externa Medical Established Patient with Denny Armani ACCOUNTING SYSTEMS ANALYST 04/23/2021 Last Documented On 12:31PM ; [facility] Z68.42 - Body mass index [BM I] 45.0-49.9, adult Medical Established Patient with Denny Armani ACCOUNTING SYSTEMS ANALYST 04/23/2021 Last Documented On 1 12:31PM ; [facility] Post-traumatic stress disorder Establ ished Patient with Kinga Short LISWS 04/01/2021 Last Documented On 1 10:05PM ; [facility] Morbid obesity Medical Established Patient with Denny Armani ACCOUNTING SYSTEMS ANALYST 04/01/2021 Last Documented On 1 4:45PM ; [facility] Z68.42 - Body mass index [BM I] 45.0-49.9, adult Medical Established Patient with Denny Armani ACCOUNTING SYSTEMS ANALYST 04/01/2021 Last Documented On 1 4:45PM ; [facility] Post-traumatic stress disorder Establ ished Patient with Kinga Short LISWS 03/17/2021 Last Documented On 1 11:59AM ; [facility] Assessment of visit for: scr eening for human immunodeficiency virus Medical New Patient with Denny Armani ACCOUNTING SYSTEMS ANALYST 03/17/2021 Last Documented On 1 4:06PM ; [facility] Diabetes Risk Test Score was one score 03/17/2021 Medical New Patient with Denny Armani ACCOUNTING SYSTEMS ANALYST 03/17/2021 Last Documented On 1 4:06PM ; [facility] Hypertension Medical New Patient with Denny C chas ACCOUNTING SYSTEMS ANALYST 03/17/2021 Last Documented On 1 4:06PM ; [facility] Morbid obesity Medical New Patient with Denny C chas ACCOUNTING SYSTEMS ANALYST 03/17/2021 Last Documented On 1 4:06PM ; [facility] Post-traumatic stress disorder Medical New Patie nt with Denny Armani ACCOUNTING SYSTEMS ANALYST 03/17/2021 Last Documented On 1 4:06PM ; [facility] Z68.42 - Body mass index [BM I] 45.0-49.9, adult Medical New Patient with Denny Lomeli ACCOUNTING SYSTEMS ANALYST 03/17/2021 Last Documented On 1 4:06PM ; [facility] Work Phone: History of Present illness Narrative History of Present Illness not supported for this document type No [facility] of [facility]: Hospital Discharge instructions* Instructions* Blanco [...] sent through Care Everywhere. * [facility]ans[facility] Instructions Instructions not supported for this document type No [facility] Phone: Instructions Includes: Instructions for all patient encounters Education and Decision Aids were provided during visit for: Counseling/education [Use fo r free text] Last Documented On 4 7:40PM ; [facility] Discussed nutritional needs teach healthy choices including fruits and vegetables Last Documented On 4 7:14PM ; [facility] Patient education about a pr oper diet Last Documented On 4 7:14PM ; [facility] Discussed concerns about exe rcise : promote physical activity Last Documented On 4 7:14PM ; [facility] Not requesting contraception Last Documented On 4 7:14PM ; [facility] Discussed nutritional needs teach healthy choices including fruits and vegetables Last Documented On 3 5:15PM ; [facility] Patient education about a pr oper diet Last Documented On 3 5:15PM ; [facility] Discussed concerns about exe rcise : promote physical activity Last Documented On 3 5:15PM ; [facility] Discussed nutritional needs teach healthy choices including fruits and vegetables Last Documented On 2 1:42PM ; [facility] Patient education about a pr oper diet Last Documented On 2 1:42PM ; [facility] Discussed concerns about exe rcise : promote physical activity Last Documented On 2 1:42PM ; [facility]; normalized emotions and feelings, also provided pt time to process any current stressors. ~Promoted and encouraged follow-through with scheduling psychiatric services Last Documented On 2 3:21PM ; [facility] provided supportive, empa thic listening and reflective feedback. ~Explored, encouraged, and supported the pt to discuss current sx/mood, assess risk for harm/need, coping mechanisms, support network and safety planning. ~Supported pt's plan to f/up with Dr. Carney, as planned at [place], [place]. ~Encouraged pt to use safety plan, if needed to ensure she remains safe Last Documented On 2 2:27PM ; [facility] Discussed nutritional needs teach healthy choices including fruits and vegetables Last Documented On 2 3:20PM ; [facility] Patient education about a pr oper diet Last Documented On 2 3:20PM ; [facility] Discussed concerns about exe rcise : promote physical activity ~ ~Will restart trazodone and prazosin ~ ~Patient is planning to have brother stay with her for a few days for emotional support ~ ~Follow up with PCP at next scheduled visit ~ ~Call psychiatrist office to schedule appt ~ ~Call counselor Last Documented On 2 9:35AM ; [facility] Provided supportive listenin g and empathic feedback; encouraged, explored, and supported the pt as she processed current symptoms, Issues, and concerns. ~Discussed past tx and explored current needs/options. Acknowledged and validated pt's thoughts and emotions. ~Explored coping mechanisms and support network; utilized opportunity for safety planning; promoted seeking positive support and seeking help, as needed Last Documented On 2 3:28PM ; [facility] provided active listenin g, support and helped pt process though current symptoms and stressor(s). Discussed and explored past effectiveness of medication; identified objectives and future goals; promoted use of healthy coping mechanisms, and self-care practices Last Documented On 2 3:19PM ; [facility] Reviewed side effects and Ri sks/Benefits analysis Last Documented On 2 3:19PM ; [facility] Discussed nutritional needs teach healthy choices including fruits and vegetables Last Documented On 2 3:15PM ; [facility] Patient education about a pr oper diet Last Documented On 2 3:15PM ; [facility] Discussed concerns about exe rcise : promote physical activity Last Documented On 2 3:15PM ; [facility] introduced pt to [facility] in tegrated model of care ~[facility] offered active listening and supportive feedback; normalized emotions and feelings, also provided pt time to process any current stressors ~[facility] discussed potential benefits of counseling and supported re-engaging, as needed. ~[facility] encouraged pt to continue to make time to implement self-care regimen and use coping methods, as needed Last Documented On 2 4:07PM ; [facility] Discussed nutritional needs teach healthy choices including fruits and vegetables Last Documented On 2 3:15PM ; [facility] Patient education about a pr oper diet Last Documented On 2 3:15PM ; [facility] Inquiry and counseling about medication administration and compliance Last Documented On 2 7:37PM ; [facility] Discussed concerns about exe rcise : promote physical activity Last Documented On 2 3:15PM ; [facility] Patient goals discussed Last Documented On 2 7:37PM ; [facility] Ansewred pt's questions re B orderlline Personality D/O and Bipolar D/O raised by psychiatrist at [place]. ~Validated and normalized patient?s feelings while assisting to process recent events Last Documented On 1 1:33AM ; [facility] Discussed nutritional needs teach healthy choices including fruits and vegetables Last Documented On 1 2:04PM ; [facility] Patient education about a pr oper diet Last Documented On 1 2:04PM ; [facility] Discussed concerns about exe rcise : promote physical activity Last Documented On 1 2:04PM ; [facility] provided active listenin g, support and helped patient process through current symptoms and stressors with ongoing mental health concerns and medication changes. ~[facility] discussed coping skills and supports that patient [...] ER Last Documented On 1 10:17AM ; [facility] Patient education about a pr oper diet Last Documented On 1 5:17PM ; [facility] Patient education about meal planning Last Documented On 1 5:17PM ; [facility] Education about changing eat ing habits Last Documented On 1 5:17PM ; [facility] Patient education about high fiber diet Last Documented On 1 5:17PM ; [facility] Patient education about low fat diet Last Documented On 1 5:17PM ; [facility] Patient education about low cholesterol diet Last Documented On 1 5:17PM ; [facility] Patient education about low carbohydrate diet Last Documented On 1 5:17PM ; [facility] Patient education about high protein diet Last Documented On 1 5:17PM ; [facility] offered active and suppo rtive listening, normalized emotions and feelings, and processed current stressors. ~[facility] discussed resources for finding a counselor and provided list of local resources. ~P discussed patients coping skills and supports and encouraged patient to continue to implement. ~[facility] reminded patient of crisis resources should they be needed Last Documented On 1 7:15PM ; [facility] Discussed nutritional needs teach healthy choices including fruits and vegetables Last Documented On 1 11:38AM ; [facility] Patient education about a pr oper diet Last Documented On 1 11:38AM ; [facility] Patient education about a pr oper diet Last Documented On 1 12:19PM ; [facility] Patient education about meal planning Last Documented On 1 12:19PM ; [facility] Education about changing eat ing habits Last Documented On 1 12:19PM ; [facility] Patient education about high fiber diet Last Documented On 12:19PM ; [facility] Patient education about low fat diet Last Documented On 1 12:19PM ; [facility] Patient education about low cholesterol diet Last Documented On 1 12:19PM ; [facility] Patient education about low carbohydrate diet Last Documented On 1 12:19PM ; [facility] Patient education about high protein diet Last Documented On 1 12:19PM ; [facility] Discussed concerns about exe rcise : promote physical activity Last Documented On 1 11:38AM ; [facility] provided active listenin g, support and helped patient process through current symptoms and stressors related to family conflict. ~[facility] discussed coping skills and supports with patient that can be implemented and reminded patient of ways to access additional resources. ~[facility] discussed crisis resources and plan. Patient has crisis resources still available should they be needed Last Documented On 1 7:04PM ; [facility] Discussed nutritional needs teach healthy choices including fruits and vegetables Last Documented On 1 3:57PM ; [facility] Patient education about a pr oper diet Last Documented On 1 3:57PM ; [facility] Discussed concerns about exe rcise : promote physical activity Last Documented On 1 3:57PM ; [facility] integrated model of care. [facility] and PCP reassured patient of not sharing information with anyone unless she has signed a release for us to do so. ~[facility] [place] provided active listening, support and helped patient process through current symptoms and stressors. ~[facility] discussed establishing counseling and psychiatry. [facility] discussed EMDR therapy and ways to find provider who does this type of therapy. ~[facility] discussed crisis resources should mood worsen, [facility] provided text hotline number for crisis. [facility] reviewed crisis plan with patient and patient is able to contact positive supports and family when feeling down Last Documented On 1 11:46AM ; [facility] Discussed nutritional needs teach healthy choices including fruits and vegetables Last Documented On 1 2:11PM ; [facility] Patient education about a pr oper diet Last Documented On 1 2:11PM ; [facility] Discussed concerns about exe rcise : promote physical activity Last Documented On 1 2:11PM ; [facility] Work Phone: Instructions Includes: Instructions for all patient encounters Education and Decision Aids were provided during visit for: [facility] offered active and suppo rtive listening and processed current stressors related to getting medications. ~[facility] discussed coping skills and supports to implement in daily routine. ~[facility] discussed progress patient has felt they have made recently and encouraged continued follow-up with providers to address health Last Documented On 4 5:16PM ; [facility] Discussed nutritional needs teach healthy choices including fruits and vegetables Last Documented On 4 7:14PM ; [facility] Patient education about a pr oper diet Last Documented On 4 7:14PM ; [facility] Discussed concerns about exe rcise : promote physical activity Last Documented On 4 7:14PM ; [facility] Not requesting contraception Last Documented On 4 7:14PM ; [facility] Discussed nutritional needs teach healthy choices including fruits and vegetables Last Documented On 3 5:15PM ; [facility] Patient education about a pr oper diet Last Documented On 3 5:15PM ; [facility] Discussed concerns about exe rcise : promote physical activity Last Documented On 3 5:15PM ; [facility] Discussed nutritional needs teach healthy choices including fruits and vegetables Last Documented On 2 1:42PM ; [facility] Patient education about a pr oper diet Last Documented On 2 1:42PM ; [facility] Discussed concerns about exe rcise : promote physical activity Last Documented On 2 1:42PM ; [facility] offered active listening and supportive feedback; normalized emotions and feelings, also provided pt time to process any current stressors. ~Promoted and encouraged follow-through with scheduling psychiatric services Last Documented On 2 3:21PM ; [facility] provided supportive, empa thic listening and reflective feedback. ~Explored, encouraged, and supported the pt to discuss current sx/mood, assess risk for harm/need, coping mechanisms, support network and safety planning. ~Supported pt's plan to f/up with Dr. Carney, as planned at [place], [place]. ~Encouraged pt to use safety plan, if needed to ensure she remains safe Last Documented On 2 2:27PM ; [facility] Discussed nutritional needs teach healthy choices including fruits and vegetables Last Documented On 2 3:20PM ; [facility] Patient education about a pr oper diet Last Documented On 2 3:20PM ; [facility] Discussed concerns about exe rcise : promote physical activity ~ ~Will restart trazodone and prazosin ~ ~Patient is planning to have brother stay with her for a few days for emotional support ~ ~Follow up with PCP at next scheduled visit ~ ~Call psychiatrist office to schedule appt ~ ~Call counselor Last Documented On 2 9:35AM ; [facility] Provided supportive listenin g and empathic feedback; encouraged, explored, and supported the pt as she processed current symptoms, Issues, and concerns. ~Discussed past tx and explored current needs/options. Acknowledged and validated pt's thoughts and emotions. ~Explored coping mechanisms and support network; utilized opportunity for safety planning; promoted seeking positive support and seeking help, as needed Last Documented On 2 3:28PM ; [facility] provided active listenin g, support and helped pt process though current symptoms and stressor(s). Discussed and explored past effectiveness of medication; identified objectives and future goals; promoted use of healthy coping mechanisms, and self-care practices Last Documented On 2 3:19PM ; [facility] Reviewed side effects and Ri sks/Benefits analysis Last Documented On 2 3:19PM ; [facility] Discussed nutritional needs teach healthy choices including fruits and vegetables Last Documented On 2 3:15PM ; [facility] Patient education about a pr oper diet Last Documented On 2 3:15PM ; [facility] Discussed concerns about exe rcise : promote physical activity Last Documented On 2 3:15PM ; [facility] introduced pt to [facility] in tegrated model of care ~[facility] offered active listening and supportive feedback; normalized emotions and feelings, also provided pt time to process any current stressors ~[facility] discussed potential benefits of counseling and supported re-engaging, as needed. ~[facility] encouraged pt to continue to make time to implement self-care regimen and use coping methods, as needed Last Documented On 2 4:07PM ; [facility] Discussed nutritional needs teach healthy choices including fruits and vegetables Last Documented On 2 3:15PM ; [facility] Patient education about a pr oper diet Last Documented On 2 3:15PM ; [facility] Inquiry and counseling about medication administration and compliance Last Documented On 2 7:37PM ; [facility] Discussed concerns about exe rcise : promote physical activity Last Documented On 2 3:15PM ; [facility] Patient goals discussed Last Documented On 2 7:37PM ; [facility] Ansewred pt's questions re B orderlline Personality D/O and Bipolar D/O raised by psychiatrist at [place]. ~Validated and normalized patient?s feelings while assisting to process recent events Last Documented On 1 1:33AM ; [facility] Discussed nutritional needs teach healthy choices including fruits and vegetables Last Documented On 1 2:04PM ; [facility] Patient education about a pr oper diet Last Documented On 1 2:04PM ; [facility] Discussed concerns about exe rcise : promote physical activity Last Documented On 1 2:04PM ; [facility] provided active listenin g, support and helped patient process through current symptoms and stressors with ongoing mental health concerns and medication changes. [facility] discussed coping skills and supports that patient is implementing. discussed implementing coping skills as discussed with counseling and attending weekly appointments as scheduled with counselor. Patient was encouraged to continue writing down concerns with medications and discuss with providers. [facility] reminded patient of crisis resources should they be needed. Patient reports having crisis resources and could return to ER Last Documented On 1 10:17AM ; [facility] Patient education about a pr oper diet Last Documented On 1 5:17PM ; [facility] Patient education about meal planning Last Documented On 1 5:17PM ; [facility] Education about changing eat ing habits Last Documented On 1 5:17PM ; [facility] Patient education about high fiber diet Last Documented On 1 5:17PM ; [facility] Patient education about low fat diet Last Documented On 1 5:17PM ; [facility] Patient education about low cholesterol diet Last Documented On 1 5:17PM ; [facility] Patient education about low carbohydrate diet Last Documented On 1 5:17PM ; [facility] Patient education about high protein diet Last Documented On 1 5:17PM ; [facility] offered active and suppo rtive listening, normalized emotions and feelings, and processed current stressors. [facility] discussed resources for finding a counselor and provided list of local resources. [facility] discussed patients coping skills and supports and encouraged patient to continue to implement. [facility] reminded patient of crisis resources should they be needed Last Documented On 1 7:15PM ; [facility] Discussed nutritional needs teach healthy choices including fruits and vegetables Last Documented On 1 11:38AM ; [facility] Patient education about a pr oper diet Last Documented On 1 11:38AM ; [facility] Patient education about a pr oper diet Last Documented On 1 12:19PM ; [facility] Patient education about meal planning Last Documented On 1 12:19PM ; [facility] Education about changing eat ing habits Last Documented On 1 12:19PM ; [facility] Patient education about high fiber diet Last Documented On 1 12:19PM ; [facility] Patient education about low fat diet Last Documented On 1 12:19PM ; [facility] Patient education about low cholesterol diet Last Documented On 1 12:19PM ; [facility] Patient education about low carbohydrate diet Last Documented On 1 12:19PM ; [facility] Patient education about high protein diet Last Documented On 1 12:19PM ; [facility] Discussed concerns about exe rcise : promote physical activity Last Documented On 1 11:38AM ; [facility] support and helped patient process through current symptoms and stressors related to family conflict. ~P discussed coping skills and supports with patient that can be implemented and reminded patient of ways to access additional resources. ~P discussed crisis resources and plan. Patient has crisis resources still available should they be needed Last Documented On 1 7:04PM ; [facility] Discussed nutritional needs teach healthy choices including fruits and vegetables Last Documented On 1 3:57PM ; [facility] Patient education about a pr oper diet Last Documented On 1 3:57PM ; [facility] Discussed concerns about exe rcise : promote physical activity Last Documented On 1 3:57PM ; [facility] model of care. [facility] and PCP [...] [facility] provided text hotline number for crisis. [facility] reviewed crisis plan with patient and patient is able to contact positive supports and family when feeling down Last Documented On 1 11:46AM ; [facility] Discussed nutritional needs teach healthy choices including fruits and vegetables Last Documented On 1 2:11PM ; [facility] Patient education about a pr oper diet Last Documented On 1 2:11PM ; [facility] Discussed concerns about exe rcise : promote physical activity Last Documented On 1 2:11PM ; [facility] Work Phone: Instructions Includes: Instructions for all patient encounters Education and Decision Aids were provided during visit for: [facility] offered active and suppo rtive listening and processed current stressors related to getting medications. ~[facility] discussed coping skills and supports to implement in daily routine. ~[facility] discussed progress patient has felt they have made recently and encouraged continued follow-up with providers to address health Last Documented On 4 5:16PM ; [facility] Discussed nutritional needs teach healthy choices including fruits and vegetables Last Documented On 4 7:14PM ; [facility] Patient education about a pr oper diet Last Documented On 4 7:14PM ; [facility] Discussed concerns about exe rcise : promote physical activity Last Documented On 4 7:14PM ; [facility] Not requesting contraception Last Documented On 4 7:14PM ; [facility] Discussed nutritional needs teach healthy choices including fruits and vegetables Last Documented On 3 5:15PM ; [facility] Patient education about a pr oper diet Last Documented On 3 5:15PM ; [facility] Discussed concerns about exe rcise : promote physical activity Last Documented On 3 5:15PM ; [facility] Discussed nutritional needs teach healthy choices including fruits and vegetables Last Documented On 2 1:42PM ; [facility] Patient education about a pr oper diet Last Documented On 2 1:42PM ; [facility] Discussed concerns about exe rcise : promote physical activity Last Documented On 2 1:42PM ; [facility] offered active listening and supportive feedback; normalized emotions and feelings, also provided pt time to process any current stressors. ~Promoted and encouraged follow-through with scheduling psychiatric services Last Documented On 2 3:21PM ; [facility] provided supportive, empa thic listening and reflective feedback. ~Explored, encouraged, and supported the pt to discuss current sx/mood, assess risk for harm/need, coping mechanisms, support network and safety planning. ~Supported pt's plan to f/up with Dr. Carney, as planned at [place], [place]. ~Encouraged pt to use safety plan, if needed to ensure she remains safe Last Documented On 2 2:27PM ; [facility] Discussed nutritional needs teach healthy choices including fruits and vegetables Last Documented On 2 3:20PM ; [facility] Patient education about a pr oper diet Last Documented On 2 3:20PM ; [facility] Discussed concerns about exe rcise : promote physical activity ~ ~Will restart trazodone and prazosin ~ ~Patient is planning to have brother stay with her for a few days for emotional support ~ ~Follow up with PCP at next scheduled visit ~ ~Call psychiatrist office to schedule appt ~ ~Call counselor Last Documented On 2 9:35AM ; [facility] Provided supportive listenin g and empathic feedback; encouraged, explored, and supported the pt as she processed current symptoms, Issues, and concerns. ~Discussed past tx and explored current needs/options. Acknowledged and validated pt's thoughts and emotions. ~Explored coping mechanisms and support network; utilized opportunity for safety planning; promoted seeking positive support and seeking help, as needed Last Documented On 2 3:28PM ; [facility] provided active listenin g, support and helped pt process though current symptoms and stressor(s). Discussed and explored past effectiveness of medication; identified objectives and future goals; promoted use of healthy coping mechanisms, and self-care practices Last Documented On 2 3:19PM ; [facility] Reviewed side effects and Ri sks/Benefits analysis Last Documented On 2 3:19PM ; [facility] Discussed nutritional needs teach healthy choices including fruits and vegetables Last Documented On 2 3:15PM ; [facility] Patient education about a pr oper diet Last Documented On 2 3:15PM ; [facility] Discussed concerns about exe rcise : promote physical activity Last Documented On 2 3:15PM ; [facility] introduced pt to [facility] in tegrated model of care ~[facility] offered active listening and supportive feedback; normalized emotions and feelings, also provided pt time to process any current stressors ~[facility] discussed potential benefits of counseling and supported re-engaging, as needed. ~[facility] encouraged pt to continue to make time to implement self-care regimen and use coping methods, as needed Last Documented On 2 4:07PM ; [facility] Discussed nutritional needs teach healthy choices including fruits and vegetables Last Documented On 2 3:15PM ; [facility] Patient education about a pr oper diet Last Documented On 2 3:15PM ; [facility] Inquiry and counseling about medication administration and compliance Last Documented On 2 7:37PM ; [facility] Discussed concerns about exe rcise : promote physical activity Last Documented On 2 3:15PM ; [facility] Patient goals discussed Last Documented On 2 7:37PM ; [facility] Ansewred pt's questions re B orderlline Personality D/O and Bipolar D/O raised by psychiatrist at [place]. ~Validated and normalized patient?s feelings while assisting to process recent events Last Documented On 1 1:33AM ; [facility] Discussed nutritional needs teach healthy choices including fruits and vegetables Last Documented On 1 2:04PM ; [facility] Patient education about a pr oper diet Last Documented On 1 2:04PM ; [facility] Discussed concerns about exe rcise : promote physical activity Last Documented On 1 2:04PM ; [facility] provided active listenin g, support and helped patient process through current symptoms and stressors with ongoing mental health concerns and medication changes. [facility] discussed coping skills and supports that patient is implementing. discussed implementing coping skills as discussed with counseling and attending weekly appointments as scheduled with counselor. Patient was encouraged to continue writing down concerns with medications and discuss with providers. [facility] reminded patient of crisis resources should they be needed. Patient reports having crisis resources and could return to ER Last Documented On 1 10:17AM ; [facility] Patient education about a pr oper diet Last Documented On 5:17PM ; [facility] Patient education about meal planning Last Documented On 5:17PM ; [facility] Education about changing eat ing habits Last Documented On 5:17PM ; [facility] Patient education about high fiber diet Last Documented On 5:17PM ; [facility] Patient education about low fat diet Last Documented On 5:17PM ; [facility] Patient education about low cholesterol diet Last Documented On 5:17PM ; [facility] Patient education about low carbohydrate diet Last Documented On 5:17PM ; [facility] Patient education about high protein diet Last Documented On 5:17PM ; [facility] offered active and suppo rtive listening, normalized emotions and feelings, and processed current stressors. [facility] discussed resources for finding a counselor and provided list of local resources. [facility] discussed patients coping skills and supports and encouraged patient to continue to implement. [facility] reminded patient of crisis resources should they be needed Last Documented On 1 7:15PM ; [facility] Discussed nutritional needs teach healthy choices including fruits and vegetables Last Documented On 1 11:38AM ; [facility] Patient education about a pr oper diet Last Documented On 1 11:38AM ; [facility] Patient education about a pr oper diet Last Documented On 12:19PM ; [facility] Patient education about meal planning Last Documented On 12:19PM ; [facility] Education about changing eat ing habits Last Documented On 1 12:19PM ; [facility] Patient education about high fiber diet Last Documented On 1 12:19PM ; [facility] Patient education about low fat diet Last Documented On 1 12:19PM ; [facility] Patient education about low cholesterol diet Last Documented On 1 12:19PM ; [facility] Patient education about low carbohydrate diet Last Documented On 1 12:19PM ; [facility] Patient education about high protein diet Last Documented On 1 12:19PM ; [facility] Discussed concerns about exe rcise : promote physical activity Last Documented On 1 11:38AM ; [facility] provided active listenin g, support and helped patient process through current symptoms and stressors related to family conflict. ~P discussed coping skills and supports with patient that can be implemented and reminded patient of ways to access additional resources. ~[facility] discussed crisis resources and plan. Patient has crisis resources still available should they be needed Last Documented On 1 7:04PM ; [facility] Discussed nutritional needs teach healthy choices including fruits and vegetables Last Documented On 1 3:57PM ; [facility] Patient education about a pr oper diet Last Documented On 1 3:57PM ; [facility] Discussed concerns about exe rcise : promote physical activity Last Documented On 1 3:57PM ; [facility] model of care. [facility] and PCP reassured patient of not sharing information with anyone unless she has signed a release for us to do so. ~P provided active listening, support and helped patient process through current symptoms and stressors. ~P discussed establishing counseling and psychiatry. P discussed EMDR therapy and ways to find provider who does this type of therapy. ~[facility] discussed crisis resources should mood worsen, P provided text hotline number for crisis. P reviewed crisis plan with patient and patient is able to contact positive supports and family when feeling down Last Documented On 1 11:46AM ; [facility] Discussed nutritional needs teach healthy choices including fruits and vegetables Last Documented On 1 2:11PM ; [facility] Patient education about a pr oper diet Last Documented On 1 2:11PM ; [facility] Discussed concerns about exe rcise : promote physical activity Last Documented On 1 2:11PM ; [facility] Work Phone: Instructions Includes: Instructions for all patient encounters Education and Decision Aids were provided during visit for: [facility] offered active and suppo rtive listening and processed current stressors. ~[facility] discussed coping skills and supports that can be implemented to manage increased anxiety and stressors. [facility] discussed potential of resuming counseling, even if for monthly visits to process ongoing stressors. ~[facility] encouraged patient to follow- up on referrals as discussed with PCP Last Documented On 4 10:08AM ; [facility] Discussed nutritional needs teach healthy choices including fruits and vegetables Last Documented On 4 4:46PM ; [facility] Patient education about a pr oper diet Last Documented On 4 4:46PM ; [facility] Discussed concerns about exe rcise : promote physical activity Last Documented On 4 4:46PM ; [facility] Not requesting contraception Last Documented On 4 4:46PM ; [facility] offered active and suppo rtive listening and processed current stressors related to getting medications. ~[facility] discussed coping skills and supports to implement in daily routine. ~[facility] discussed progress patient has felt they have made recently and encouraged continued follow-up with providers to address health Last Documented On 4 5:16PM ; [facility] Discussed nutritional needs teach healthy choices including fruits and vegetables Last Documented On 4 7:14PM ; [facility] Patient education about a pr oper diet Last Documented On 4 7:14PM ; [facility] Discussed concerns about exe rcise : promote physical activity Last Documented On 4 7:14PM ; [facility] Not requesting contraception Last Documented On 4 7:14PM ; [facility] Discussed nutritional needs teach healthy choices including fruits and vegetables Last Documented On 3 5:15PM ; [facility] Patient education about a pr oper diet Last Documented On 3 5:15PM ; [facility] Discussed concerns about exe rcise : promote physical activity Last Documented On 3 5:15PM ; [facility] Discussed nutritional needs teach healthy choices including fruits and vegetables Last Documented On 2 1:42PM ; [facility] Patient education about a pr oper diet Last Documented On 2 1:42PM ; [facility] Discussed concerns about exe rcise : promote physical activity Last Documented On 2 1:42PM ; [facility]; normalized emotions and feelings, also provided pt time to process any current stressors. ~Promoted and encouraged follow-through with scheduling psychiatric services Last Documented On 2 3:21PM ; [facility] provided supportive, empa thic listening and reflective feedback. ~Explored, encouraged, and supported the pt to discuss current sx/mood, assess risk for harm/need, coping mechanisms, support network and safety planning. ~Supported pt's plan to f/up with Dr. Carney, as planned at [place], [place]. ~Encouraged pt to use safety plan, if needed to ensure she remains safe Last Documented On 2 2:27PM ; [facility] Discussed nutritional needs teach healthy choices including fruits and vegetables Last Documented On 2 3:20PM ; [facility] Patient education about a pr oper diet Last Documented On 2 3:20PM ; [facility] Discussed concerns about exe rcise : promote physical activity ~ ~Will restart trazodone and prazosin ~ ~Patient is planning to have brother stay with her for a few days for emotional support ~ ~Follow up with PCP at next scheduled visit ~ ~Call psychiatrist office to schedule appt ~ ~Call counselor Last Documented On 2 9:35AM ; [facility] Provided supportive listenin g and empathic feedback; encouraged, explored, and supported the pt as she processed current symptoms, Issues, and concerns. ~Discussed past tx and explored current needs/options. Acknowledged and validated pt's thoughts and emotions. ~Explored coping mechanisms and support network; utilized opportunity for safety planning; promoted seeking positive support and seeking help, as needed Last Documented On 2 3:28PM ; [facility] provided active listenin [facility], support and helped pt process though current symptoms and stressor(s). Discussed and explored past effectiveness of medication; identified objectives and future goals; promoted use of healthy coping mechanisms, and self-care practices Last Documented On 2 3:19PM ; [facility] Reviewed side effects and Ri sks/Benefits analysis Last Documented On 2 3:19PM ; [facility] Discussed nutritional needs teach healthy choices including fruits and vegetables Last Documented On 2 3:15PM ; [facility] Patient education about a pr oper diet Last Documented On 2 3:15PM ; [facility] Discussed concerns about exe rcise : promote physical activity Last Documented On 2 3:15PM ; [facility] introduced pt to [facility] in tegrated model of care ~[facility] offered active listening and supportive feedback; normalized emotions and feelings, also provided pt time to process any current stressors ~[facility] discussed potential benefits of counseling and supported re-engaging, as needed. ~[facility] encouraged pt to continue to make time to implement self-care regimen and use coping methods, as needed Last Documented On 2 4:07PM ; [facility] Discussed nutritional needs teach healthy choices including fruits and vegetables Last Documented On 2 3:15PM ; [facility] Patient education about a pr oper diet Last Documented On 2 3:15PM ; [facility] Inquiry and counseling about medication administration and compliance Last Documented On 2 7:37PM ; [facility] Discussed concerns about exe rcise : promote physical activity Last Documented On 2 3:15PM ; [facility] Patient goals discussed Last Documented On 2 7:37PM ; [facility] Ansewred pt's questions re B orderlline Personality D/O and Bipolar D/O raised by psychiatrist at [place]. ~Validated and normalized patient?s feelings while assisting to process recent events Last Documented On 1 1:33AM ; [facility] Discussed nutritional needs teach healthy choices including fruits and vegetables Last Documented On 1 2:04PM ; [facility] Patient education about a pr oper diet Last Documented On 1 2:04PM ; [facility] Discussed concerns about exe rcise : promote physical activity Last Documented On 1 2:04PM ; [facility] provided active listenin g, support and helped patient process through current symptoms and stressors with ongoing mental health concerns and medication changes. ~[facility] discussed coping skills and supports that patient [...] ER Last Documented On 1 10:17AM ; [facility] Patient education about a pr oper diet Last Documented On 1 5:17PM ; [facility] Patient education about meal planning Last Documented On 1 5:17PM ; [facility] Education about changing eat ing habits Last Documented On 1 5:17PM ; [facility] Patient education about high fiber diet Last Documented On 1 5:17PM ; [facility] Patient education about low fat diet Last Documented On 1 5:17PM ; [facility] Patient education about low cholesterol diet Last Documented On 1 5:17PM ; [facility] Patient education about low carbohydrate diet Last Documented On 1 5:17PM ; [facility] Patient education about high protein diet Last Documented On 1 5:17PM ; [facility] offered active and suppo rtive listening, normalized emotions and feelings, and processed current stressors. ~[facility] discussed resources for finding a counselor and provided list of local resources. ~P discussed patients coping skills and supports and encouraged patient to continue to implement. ~[facility] reminded patient of crisis resources should they be needed Last Documented On 1 7:15PM ; [facility] Discussed nutritional needs teach healthy choices including fruits and vegetables Last Documented On 1 11:38AM ; [facility] Patient education about a pr oper diet Last Documented On 1 11:38AM ; [facility] Patient education about a pr oper diet Last Documented On 1 12:19PM ; [facility] Patient education about meal planning Last Documented On 1 12:19PM ; [facility] Education about changing eat ing habits Last Documented On 1 12:19PM ; [facility] Patient education about high fiber diet Last Documented On 1 12:19PM ; [facility] Patient education about low fat diet Last Documented On 1 12:19PM ; [facility] Patient education about low cholesterol diet Last Documented On 1 12:19PM ; [facility] Patient education about low carbohydrate diet Last Documented On 1 12:19PM ; [facility] Patient education about high protein diet Last Documented On 1 12:19PM ; [facility] Discussed concerns about exe rcise : promote physical activity Last Documented On 1 11:38AM ; [facility] provided active listenin g, support and helped patient process through current symptoms and stressors related to family conflict. ~[facility] discussed coping skills and supports with patient that can be implemented and reminded patient of ways to access additional resources. ~[facility] discussed crisis resources and plan. Patient has crisis resources still available should they be needed Last Documented On 1 7:04PM ; [facility] Discussed nutritional needs teach healthy choices including fruits and vegetables Last Documented On 1 3:57PM ; [facility] Patient education about a pr oper diet Last Documented On 1 3:57PM ; [facility] Discussed concerns about exe rcise : promote physical activity Last Documented On 1 3:57PM ; [facility] integrated model of care. [facility] and PCP reassured patient of not sharing information with anyone unless she has signed a release for us to do so. ~[facility] provided active listening, support and helped patient process through current symptoms and stressors. ~[facility] discussed establishing counseling and psychiatry. P discussed EMDR therapy and ways to find provider who does this type of therapy. ~[facility] discussed crisis resources should mood worsen, [facility] provided text hotline number for crisis. [facility] reviewed crisis plan with patient and patient is able to contact positive supports and family when feeling down Last Documented On 1 11:46AM ; [facility] Discussed nutritional needs teach healthy choices including fruits and vegetables Last Documented On 1 2:11PM ; [facility] Patient education about a pr oper diet Last Documented On 1 2:11PM ; [facility] Discussed concerns about exe rcise : promote physical activity Last Documented On 1 2:11PM ; [facility] Work Phone: Instructions Includes: Instructions for all patient encounters Education and Decision Aids were provided during visit for: Counseling/education [Use fo r free text] Last Documented On 4 6:27PM ; [facility] Discussed nutritional needs teach healthy choices including fruits and vegetables Last Documented On 4 4:51PM ; [facility] Patient education about a pr oper diet Last Documented On 4 4:51PM ; [facility] Discussed concerns about exe rcise : promote physical activity Last Documented On 4 4:51PM ; [facility] Referred Patient to a Diabet es Self-Management Program Last Documented On 4 5:22PM ; [facility] offered active and suppo rtive listening and processed current stressors. ~[facility] discussed coping skills and supports that can be implemented to manage increased anxiety and stressors. [facility] discussed potential of resuming counseling, even if for monthly visits to process ongoing stressors. ~[facility] encouraged patient to follow- up on referrals as discussed with PCP Last Documented On 4 10:08AM ; [facility] Discussed nutritional needs teach healthy choices including fruits and vegetables Last Documented On 4 4:46PM ; [facility] Patient education about a pr oper diet Last Documented On 4 4:46PM ; [facility] Discussed concerns about exe rcise : promote physical activity Last Documented On 4 4:46PM ; [facility] Not requesting contraception Last Documented On 4 4:46PM ; [facility] offered active and suppo rtive listening and processed current stressors related to getting medications. ~P discussed coping skills and supports to implement in daily routine. ~P discussed progress patient has felt they have made recently and encouraged continued follow-up with providers to address health Last Documented On 4 5:16PM ; [facility] Discussed nutritional needs teach healthy choices including fruits and vegetables Last Documented On 4 7:14PM ; [facility] Patient education about a pr oper diet Last Documented On 4 7:14PM ; [facility] Discussed concerns about exe rcise : promote physical activity Last Documented On 4 7:14PM ; [facility] Not requesting contraception Last Documented On 4 7:14PM ; [facility] Discussed nutritional needs teach healthy choices including fruits and vegetables Last Documented On 3 5:15PM ; [facility] Patient education about a pr oper diet Last Documented On 3 5:15PM ; [facility] Discussed concerns about exe rcise : promote physical activity Last Documented On 3 5:15PM ; [facility] Discussed nutritional needs teach healthy choices including fruits and vegetables Last Documented On 2 1:42PM ; [facility] Patient education about a pr oper diet Last Documented On 2 1:42PM ; [facility] Discussed concerns about exe rcise : promote physical activity Last Documented On 2 1:42PM ; [facility] offered active listening and supportive feedback; normalized emotions and feelings, also provided pt time to process any current stressors. ~Promoted and encouraged follow-through with scheduling psychiatric services Last Documented On 2 3:21PM ; [facility] provided supportive, empa thic listening and reflective feedback. ~Explored, encouraged, and supported the pt to discuss current sx/mood, assess risk for harm/need, coping mechanisms, support network and safety planning. ~Supported pt's plan to f/up with Dr. Carney, as planned at [place], [place]. ~Encouraged pt to use safety plan, if needed to ensure she remains safe Last Documented On 2 2:27PM ; [facility] Discussed nutritional needs teach healthy choices including fruits and vegetables Last Documented On 2 3:20PM ; [facility] Patient education about a pr oper diet Last Documented On 2 3:20PM ; [facility] Discussed concerns about exe rcise : promote physical activity ~ ~Will restart trazodone and prazosin ~ ~Patient is planning to have brother stay with her for a few days for emotional support ~ ~Follow up with PCP at next scheduled visit ~ ~Call psychiatrist office to schedule appt ~ ~Call counselor Last Documented On 2 9:35AM ; [facility] Provided supportive listenin g and empathic feedback; encouraged, explored, and supported the pt as she processed current symptoms, Issues, and concerns. ~Discussed past tx and explored current needs/options. Acknowledged and validated pt's thoughts and emotions. ~Explored coping mechanisms and support network; utilized opportunity for safety planning; promoted seeking positive support and seeking help, as needed Last Documented On 2 3:28PM ; [facility] provided active listenin g, support and helped pt process though current symptoms and stressor(s). Discussed and explored past effectiveness of medication; identified objectives and future goals; promoted use of healthy coping mechanisms, and self-care practices Last Documented On 2 3:19PM ; [facility] Reviewed side effects and Ri sks/Benefits analysis Last Documented On 2 3:19PM ; [facility] Discussed nutritional needs teach healthy choices including fruits and vegetables Last Documented On 2 3:15PM ; [facility] Patient education about a pr oper diet Last Documented On 2 3:15PM ; [facility] Discussed concerns about exe rcise : promote physical activity Last Documented On 2 3:15PM ; [facility] introduced pt to [facility] in tegrated model [...] needed Last Documented On 2 4:07PM ; [facility] Discussed nutritional needs teach healthy choices including fruits and vegetables Last Documented On 2 3:15PM ; [facility] Patient education about a pr oper diet Last Documented On 2 3:15PM ; [facility] Inquiry and counseling about medication administration and compliance Last Documented On 2 7:37PM ; [facility] Discussed concerns about exe rcise : promote physical activity Last Documented On 2 3:15PM ; [facility] Patient goals discussed Last Documented On 2 7:37PM ; [facility] Ansewred pt's questions re B orderlline Personality D/O and Bipolar D/O raised by psychiatrist at [place]. ~Validated and normalized patient?s feelings while assisting to process recent events Last Documented On 1 1:33AM ; [facility] Discussed nutritional needs teach healthy choices including fruits and vegetables Last Documented On 1 2:04PM ; [facility] Patient education about a pr oper diet Last Documented On 1 2:04PM ; [facility] Discussed concerns about exe rcise : promote physical activity Last Documented On 1 2:04PM ; [facility] provided active listenin g, support and helped patient process through current symptoms and stressors with ongoing mental health concerns and medication changes. ~[facility] discussed coping skills and supports that patient is implementing. discussed implementing coping skills as discussed with counseling and attending weekly appointments as scheduled with counselor. Patient was encouraged to continue writing down concerns with medications and discuss with providers. ~[facility] reminded patient of crisis resources should they be needed. Patient reports having crisis resources and could return to ER Last Documented On 1 10:17AM ; [facility] Patient education about a pr oper diet Last Documented On 1 5:17PM ; [facility] Patient education about meal planning Last Documented On 5:17PM ; [facility] Education about changing eat ing habits Last Documented On 5:17PM ; [facility] Patient education about high fiber diet Last Documented On 5:17PM ; [facility] Patient education about low fat diet Last Documented On 1 5:17PM ; [facility] Patient education about low cholesterol diet Last Documented On 5:17PM ; [facility] Patient education about low carbohydrate diet Last Documented On 5:17PM ; [facility] Patient education about high protein diet Last Documented On 5:17PM ; [facility] offered active and suppo rtive listening, normalized emotions and feelings, and processed current stressors. ~[facility] discussed resources for finding a counselor and provided list of local resources. ~[facility] discussed patients coping skills and supports and encouraged patient to continue to implement. ~[facility] reminded patient of crisis resources should they be needed Last Documented On 7:15PM ; [facility] Discussed nutritional needs teach healthy choices including fruits and vegetables Last Documented On 11:38AM ; [facility] Patient education about a pr oper diet Last Documented On 11:38AM ; [facility] Patient education about a pr oper diet Last Documented On 1 12:19PM ; [facility] Patient education about meal planning Last Documented On 1 12:19PM ; [facility] Education about changing eat ing habits Last Documented On 12:19PM ; [facility] Patient education about high fiber diet Last Documented On 12:19PM ; [facility] Patient education about low fat diet Last Documented On 12:19PM ; [facility] Patient education about low cholesterol diet Last Documented On 12:19PM ; [facility] Patient education about low carbohydrate diet Last Documented On 1 12:19PM ; [facility] Patient education about high protein diet Last Documented On 1 12:19PM ; [facility] Discussed concerns about exe rcise : promote physical activity Last Documented On 1 11:38AM ; [facility] provided active listenin g, support and helped patient process through current symptoms and stressors related to family conflict. ~[facility] discussed coping skills and supports with patient that can be implemented and reminded patient of ways to access additional resources. ~[facility] discussed crisis resources and plan. Patient has crisis resources still available should they be needed Last Documented On 1 7:04PM ; [facility] Discussed nutritional needs teach healthy choices including fruits and vegetables Last Documented On 1 3:57PM ; [facility] Patient education about a pr oper diet Last Documented On 1 3:57PM ; [facility] Discussed concerns about exe rcise : promote physical activity Last Documented On 1 3:57PM ; [facility] introduced patient to [facility] integrated model of care. P and PCP reassured patient of not sharing information with anyone unless she has signed a release for us to do so. ~[facility] provided active listening, support and helped patient process through current symptoms and stressors. ~[facility] discussed establishing counseling and psychiatry. [facility] discussed EMDR therapy and ways to find provider who does this type of therapy. ~[facility] discussed crisis resources should mood worsen, [facility] provided text hotline number for crisis. [facility] reviewed crisis plan with patient and patient is able to contact positive supports and family when feeling down Last Documented On 1 11:46AM ; [facility] Discussed nutritional needs teach healthy choices including fruits and vegetables Last Documented On 1 2:11PM ; [facility] Patient education about a pr oper diet Last Documented On 1 2:11PM ; [facility] Discussed concerns about exe rcise : promote physical activity Last Documented On 1 2:11PM ; [facility] Work Phone: Instructions Includes: Instructions for [...] scheduled Last Documented On 4 3:26PM ; [facility] Discussed nutritional needs teach healthy choices including fruits and vegetables Last Documented On 4 4:51PM ; [facility] Patient education about a pr oper diet Last Documented On 4 4:51PM ; [facility] Discussed concerns about exe rcise : promote physical activity Last Documented On 4 4:51PM ; [facility] Referred Patient to a Diabet es Self-Management Program Last Documented On 4 5:22PM ; [facility] offered active and suppo rtive listening and processed current stressors. ~[facility] discussed coping skills and supports that can be implemented to manage increased anxiety and stressors. [facility] discussed potential of resuming counseling, even if for monthly visits to process ongoing stressors. ~[facility] encouraged patient to follow- up on referrals as discussed with PCP Last Documented On 4 10:08AM ; [facility] Discussed nutritional needs teach healthy choices including fruits and vegetables Last Documented On 4 4:46PM ; [facility] Patient education about a pr oper diet Last Documented On 4 4:46PM ; [facility] Discussed concerns about exe rcise : promote physical activity Last Documented On 4 4:46PM ; [facility] Not requesting contraception Last Documented On 4 4:46PM ; [facility] offered active and suppo rtive listening and processed current stressors related to getting medications. ~P discussed coping skills and supports to implement in daily routine. ~P discussed progress patient has felt they have made recently and encouraged continued follow-up with providers to address health Last Documented On 4 5:16PM ; [facility] Discussed nutritional needs teach healthy choices including fruits and vegetables Last Documented On 4 7:14PM ; [facility] Patient education about a pr oper diet Last Documented On 4 7:14PM ; [facility] Discussed concerns about exe rcise : promote physical activity Last Documented On 4 7:14PM ; [facility] Not requesting contraception Last Documented On 4 7:14PM ; [facility] Discussed nutritional needs teach healthy choices including fruits and vegetables Last Documented On 3 5:15PM ; [facility] Patient education about a pr oper diet Last Documented On 3 5:15PM ; [facility] Discussed concerns about exe rcise : promote physical activity Last Documented On 3 5:15PM ; [facility] Discussed nutritional needs teach healthy choices including fruits and vegetables Last Documented On 2 1:42PM ; [facility] Patient education about a pr oper diet Last Documented On 2 1:42PM ; [facility] Discussed concerns about exe rcise : promote physical activity Last Documented On 2 1:42PM ; [facility]; normalized emotions and feelings, also provided pt time to process any current stressors. ~Promoted and encouraged follow-through with scheduling psychiatric services Last Documented On 2 3:21PM ; [facility] provided supportive, empa thic listening and reflective feedback. ~Explored, encouraged, and supported the pt to discuss current sx/mood, assess risk for harm/need, coping mechanisms, support network and safety planning. ~Supported pt's plan to f/up with Dr. Carney, as planned at [place], [place]. ~Encouraged pt to use safety plan, if needed to ensure she remains safe Last Documented On 2 2:27PM ; [facility] Discussed nutritional needs teach healthy choices including fruits and vegetables Last Documented On 2 3:20PM ; [facility] Patient education about a pr oper diet Last Documented On 2 3:20PM ; [facility] Discussed concerns about exe rcise : promote physical activity ~ ~Will restart trazodone and prazosin ~ ~Patient is planning to have brother stay with her for a few days for emotional support ~ ~Follow up with PCP at next scheduled visit ~ ~Call psychiatrist office to schedule appt ~ ~Call counselor Last Documented On 2 9:35AM ; [facility] Provided supportive listenin g and empathic feedback; encouraged, explored, and supported the pt as she processed current symptoms, Issues, and concerns. ~Discussed past tx and explored current needs/options. Acknowledged and validated pt's thoughts and emotions. ~Explored coping mechanisms and support network; utilized opportunity for safety planning; promoted seeking positive support and seeking help, as needed Last Documented On 2 3:28PM ; [facility] provided active listenin [facility], support and helped pt process though current symptoms and stressor(s). Discussed and explored past effectiveness of medication; identified objectives and future goals; promoted use of healthy coping mechanisms, and self-care practices Last Documented On 2 3:19PM ; [facility] Reviewed side effects and Ri sks/Benefits analysis Last Documented On 2 3:19PM ; [facility] Discussed nutritional needs teach healthy choices including fruits and vegetables Last Documented On 2 3:15PM ; [facility] Patient education about a pr oper diet Last Documented On 2 3:15PM ; [facility] Discussed concerns about exe rcise : promote physical activity Last Documented On 2 3:15PM ; [facility] introduced pt to [facility] in tegrated model of care ~[facility] offered active listening and supportive feedback; normalized emotions and feelings, also provided pt time to process any current stressors ~[facility] discussed potential benefits of counseling and supported re-engaging, as needed. ~[facility] encouraged pt to continue to make time to implement self-care regimen and use coping methods, as needed Last Documented On 2 4:07PM ; [facility] Discussed nutritional needs teach healthy choices including fruits and vegetables Last Documented On 2 3:15PM ; [facility] Patient education about a pr oper diet Last Documented On 2 3:15PM ; [facility] Inquiry and counseling about medication administration and compliance Last Documented On 2 7:37PM ; [facility] Discussed concerns about exe rcise : promote physical activity Last Documented On 2 3:15PM ; [facility] Patient goals discussed Last Documented On 2 7:37PM ; [facility] Ansewred pt's questions re B orderlline Personality D/O and Bipolar D/O raised by psychiatrist at [facility]. ~Validated and normalized patient?s feelings while assisting to process recent events Last Documented On 1 1:33AM ; [facility] Discussed nutritional needs teach healthy choices including fruits and vegetables Last Documented On 1 2:04PM ; [facility] Patient education about a pr oper diet Last Documented On 1 2:04PM ; [facility] Discussed concerns about exe rcise : promote physical activity Last Documented On 1 2:04PM ; [facility] provided active listenin g, support and helped patient process through current symptoms and stressors with ongoing mental health concerns and medication changes. ~[facility] discussed coping skills and supports that patient is implementing. discussed implementing coping skills as discussed with counseling and attending weekly appointments as scheduled with counselor. Patient was encouraged to continue writing down concerns with medications and discuss with providers. ~[facility] reminded patient of crisis resources should they be needed. Patient reports having crisis resources and could return to ER Last Documented On 1 10:17AM ; [facility] Patient education about a pr oper diet Last Documented On 1 5:17PM ; [facility] Patient education about meal planning Last Documented On 1 5:17PM ; [facility] Education about changing eat ing habits Last Documented On 1 5:17PM ; [facility] Patient education about high fiber diet Last Documented On 1 5:17PM ; [facility] Patient education about low fat diet Last Documented On 1 5:17PM ; [facility] Patient education about low cholesterol diet Last Documented On 1 5:17PM ; [facility] Patient education about low carbohydrate diet Last Documented On 1 5:17PM ; [facility] Patient education about high protein diet Last Documented On 1 5:17PM ; [facility] offered active and suppo rtive listening, normalized emotions and feelings, and processed current stressors. ~[facility] discussed resources for finding a counselor and provided list of local resources. ~[facility] discussed patients coping skills and supports and encouraged patient to continue to implement. ~[facility] reminded patient of crisis resources should they be needed Last Documented On 1 7:15PM ; [facility] Discussed nutritional needs teach healthy choices including fruits and vegetables Last Documented On 1 11:38AM ; [facility] Patient education about a pr oper diet Last Documented On 1 11:38AM ; [facility] Patient education about a pr oper diet Last Documented On 1 12:19PM ; [facility] Patient education about meal planning Last Documented On 12:19PM ; [facility] Education about changing eat ing habits Last Documented On 1 12:19PM ; [facility] Patient education about high fiber diet Last Documented On 1 12:19PM ; [facility] Patient education about low fat diet Last Documented On 1 12:19PM ; [facility] Patient education about low cholesterol diet Last Documented On 1 12:19PM ; [facility] Patient education about low carbohydrate diet Last Documented On 1 12:19PM ; [facility] Patient education about high protein diet Last Documented On 1 12:19PM ; [facility] Discussed concerns about exe rcise : promote physical activity Last Documented On 1 11:38AM ; [facility] provided active listenin g, support and helped patient process through current symptoms and stressors related to family conflict. ~[facility] discussed coping skills and supports with patient that can be implemented and reminded patient of ways to access additional resources. ~[facility] discussed crisis resources and plan. Patient has crisis resources still available should they be needed Last Documented On 1 7:04PM ; [facility] Discussed nutritional needs teach healthy choices including fruits and vegetables Last Documented On 1 3:57PM ; [facility] Patient education about a pr oper diet Last Documented On 1 3:57PM ; [facility] Discussed concerns about exe rcise : promote physical activity Last Documented On 1 3:57PM ; [facility] introduced patient to [facility] integrated model of care. [facility] and PCP reassured patient of not sharing information with anyone unless she has signed a release for us to do so. ~P provided active listening, support and helped patient process through current symptoms and stressors. ~P discussed establishing counseling and psychiatry. P discussed EMDR therapy and ways to find provider who does this type of therapy. ~[facility] discussed crisis resources should mood worsen, [facility] provided text hotline number for crisis. [facility] reviewed crisis plan with patient and patient is able to contact positive supports and family when feeling down Last Documented On 1 11:46AM ; [facility] Discussed nutritional needs teach healthy choices including fruits and vegetables Last Documented On 1 2:11PM ; [facility] Patient education about a pr oper diet Last Documented On 1 2:11PM ; [facility] Discussed concerns about exe rcise : promote physical activity Last Documented On 1 2:11PM ; [facility] Work Phone: Instructions Includes: Instructions for all patient encounters Education and Decision Aids were provided during visit for: ~*[facility] offered active and sup portive listening, normalized emotions and feelings, and processed ~current stressors. ~*Discussed engageing in counseling and looking into EMDR to address PTSD and increased nightmares Last Documented On 4 4:14PM ; [facility] Discussed nutritional needs teach healthy choices including fruits and vegetables Last Documented On 4 4:33PM ; [facility] Patient education about a pr oper diet Last Documented On 4 4:33PM ; [facility] Discussed concerns about exe rcise : promote physical activity Last Documented On 4 4:33PM ; [facility] offered active and suppo rtive listening and processed recent stressors. ~[facility] discussed coping skills and supports to implement in managing increased anxiety such as tools learned previously in therapy. ~P discussed sleep hygiene strategies that can be implemented. ~P encouraged patient to follow-up with specialists as scheduled Last Documented On 4 3:26PM ; [facility] Discussed nutritional needs teach healthy choices including fruits and vegetables Last Documented On 4 4:51PM ; [facility] Patient education about a pr oper diet Last Documented On 4 4:51PM ; [facility] Discussed concerns about exe rcise : promote physical activity Last Documented On 4 4:51PM ; [facility] Referred Patient to a Diabet es Self-Management Program Last Documented On 4 5:22PM ; [facility] and suppo rtive listening and processed current stressors. ~P discussed coping skills and supports that can be implemented to manage increased anxiety and stressors. P discussed potential of resuming counseling, even if for monthly visits to process ongoing stressors. ~[facility] encouraged patient to follow- up on referrals as discussed with PCP Last Documented On 4 10:08AM ; [facility] Discussed nutritional needs teach healthy choices including fruits and vegetables Last Documented On 4 4:46PM ; [facility] Patient education about a pr oper diet Last Documented On 4 4:46PM ; [facility] Discussed concerns about exe rcise : promote physical activity Last Documented On 4 4:46PM ; [facility] Not requesting contraception Last Documented On 4 4:46PM ; [facility] offered active and suppo rtive listening and processed current stressors related to getting medications. ~P discussed coping skills and supports to implement in daily routine. ~P discussed progress patient has felt they have made recently and encouraged continued follow-up with providers to address health Last Documented On 4 5:16PM ; [facility] Discussed nutritional needs teach healthy choices including fruits and vegetables Last Documented On 4 7:14PM ; [facility] Patient education about a pr oper diet Last Documented On 4 7:14PM ; [facility] Discussed concerns about exe rcise : promote physical activity Last Documented On 4 7:14PM ; [facility] Not requesting contraception Last Documented On 4 7:14PM ; [facility] Discussed nutritional needs teach healthy choices including fruits and vegetables Last Documented On 3 5:15PM ; [facility] Patient education about a pr oper diet Last Documented On 3 5:15PM ; [facility] Discussed concerns about exe rcise : promote physical activity Last Documented On 3 5:15PM ; [facility] Discussed nutritional needs teach healthy choices including fruits and vegetables Last Documented On 2 1:42PM ; [facility] Patient education about a pr oper diet Last Documented On 2 1:42PM ; [facility] Discussed concerns about exe rcise : promote physical activity Last Documented On 2 1:42PM ; [facility] and supportive feedback; normalized emotions and feelings, also provided pt time to process any current stressors. ~Promoted and encouraged follow-through with scheduling psychiatric services Last Documented On 2 3:21PM ; [facility] provided supportive, empa thic listening and reflective feedback. ~Explored, encouraged, and supported the pt to discuss current sx/mood, assess risk for harm/need, coping mechanisms, support network and safety planning. ~Supported pt's plan to f/up with Dr. Carney, as planned at [place], [place]. ~Encouraged pt to use safety plan, if needed to ensure she remains safe Last Documented On 2 2:27PM ; [facility] Discussed nutritional needs teach healthy choices including fruits and vegetables Last Documented On 2 3:20PM ; [facility] Patient education about a pr oper diet Last Documented On 2 3:20PM ; [facility] Discussed concerns about exe rcise : promote physical activity ~ ~Will restart trazodone and prazosin ~ ~Patient is planning to have brother stay with her for a few days for emotional support ~ ~Follow up with PCP at next scheduled visit ~ ~Call psychiatrist office to schedule appt ~ ~Call counselor Last Documented On 2 9:35AM ; [facility] Provided supportive listenin g and empathic feedback; encouraged, explored, and supported the pt as she processed current symptoms, Issues, and concerns. ~Discussed past tx and explored current needs/options. Acknowledged and validated pt's thoughts and emotions. ~Explored coping mechanisms and support network; utilized opportunity for safety planning; promoted seeking positive support and seeking help, as needed Last Documented On 2 3:28PM ; [facility] provided active listenin g, support and helped pt process though current symptoms and stressor(s). Discussed and explored past effectiveness of medication; identified objectives and future goals; promoted use of healthy coping mechanisms, and self-care practices Last Documented On 2 3:19PM ; [facility] Reviewed side effects and Ri sks/Benefits analysis Last Documented On 2 3:19PM ; [facility] Discussed nutritional needs teach healthy choices including fruits and vegetables Last Documented On 2 3:15PM ; [facility] Patient education about a pr oper diet Last Documented On 2 3:15PM ; [facility] Discussed concerns about exe rcise : promote physical activity Last Documented On 2 3:15PM ; [facility] introduced pt to [facility] in tegrated model of care ~[facility] offered active listening and supportive feedback; normalized emotions and feelings, also provided pt time to process any current stressors ~[facility] discussed potential benefits of counseling and supported re-engaging, as needed. ~[facility] encouraged pt to continue to make time to implement self-care regimen and use coping methods, as needed Last Documented On 2 4:07PM ; [facility] Discussed nutritional needs teach healthy choices including fruits and vegetables Last Documented On 2 3:15PM ; [facility] Patient education about a pr oper diet Last Documented On 2 3:15PM ; [facility] Inquiry and counseling about medication administration and compliance Last Documented On 2 7:37PM ; [facility] Discussed concerns about exe rcise : promote physical activity Last Documented On 2 3:15PM ; [facility] Patient goals discussed Last Documented On 2 7:37PM ; [facility] Ansewred pt's questions re B orderlline Personality D/O and Bipolar D/O raised by psychiatrist at [facility]. ~Validated and normalized patient?s feelings while assisting to process recent events Last Documented On 1 1:33AM ; [facility] Discussed nutritional needs teach healthy choices including fruits and vegetables Last Documented On 1 2:04PM ; [facility] Patient education about a pr oper diet Last Documented On 1 2:04PM ; [facility] Discussed concerns about exe rcise : promote physical activity Last Documented On 1 2:04PM ; [facility] provided active listenin g, support and [...] ER Last Documented On 1 10:17AM ; [facility] Patient education about a pr oper diet Last Documented On 1 5:17PM ; [facility] Patient education about meal planning Last Documented On 1 5:17PM ; [facility] Education about changing eat ing habits Last Documented On 1 5:17PM ; [facility] Patient education about high fiber diet Last Documented On 1 5:17PM ; [facility] Patient education about low fat diet Last Documented On 1 5:17PM ; [facility] Patient education about low cholesterol diet Last Documented On 1 5:17PM ; [facility] Patient education about low carbohydrate diet Last Documented On 1 5:17PM ; [facility] Patient education about high protein diet Last Documented On 1 5:17PM ; [facility] offered active and suppo rtive listening, normalized emotions and feelings, and processed current stressors. ~[facility] discussed resources for finding a counselor and provided list of local resources. ~[facility] discussed patients coping skills and supports and encouraged patient to continue to implement. ~[facility] reminded patient of crisis resources should they be needed Last Documented On 1 7:15PM ; [facility] Discussed nutritional needs teach healthy choices including fruits and vegetables Last Documented On 1 11:38AM ; [facility] Patient education about a pr oper diet Last Documented On 1 11:38AM ; [facility] Patient education about a pr oper diet Last Documented On 1 12:19PM ; [facility] Patient education about meal planning Last Documented On 1 12:19PM ; [facility] Education about changing eat ing habits Last Documented On 12:19PM ; [facility] Patient education about high fiber diet Last Documented On 1 12:19PM ; [facility] Patient education about low fat diet Last Documented On 1 12:19PM ; [facility] Patient education about low cholesterol diet Last Documented On 1 12:19PM ; [facility] Patient education about low carbohydrate diet Last Documented On 1 12:19PM ; [facility] Patient education about high protein diet Last Documented On 1 12:19PM ; [facility] Discussed concerns about exe rcise : promote physical activity Last Documented On 1 11:38AM ; [facility] provided active listenin g, support and helped patient process through current symptoms and stressors related to family conflict. ~[facility] discussed coping skills and supports with patient that can be implemented and reminded patient of ways to access additional resources. ~[facility] discussed crisis resources and plan. Patient has crisis resources still available should they be needed Last Documented On 1 7:04PM ; [facility] Discussed nutritional needs teach healthy choices including fruits and vegetables Last Documented On 1 3:57PM ; [facility] Patient education about a pr oper diet Last Documented On 1 3:57PM ; [facility] Discussed concerns about exe rcise : promote physical activity Last Documented On 1 3:57PM ; [facility] introduced patient to [facility] integrated model of care. [facility] and PCP [...] ~P discussed crisis resources should mood worsen, [facility] provided text hotline number for crisis. [facility] reviewed crisis plan with patient and patient is able to contact positive supports and family when feeling down Last Documented On 1 11:46AM ; [facility] Discussed nutritional needs teach healthy choices including fruits and vegetables Last Documented On 1 2:11PM ; [facility] Patient education about a pr oper diet Last Documented On 1 2:11PM ; [facility] Discussed concerns about exe rcise : promote physical activity Last Documented On 1 2:11PM ; [facility] Work Phone: Instructions Includes: Instructions for all patient encounters Education and Decision Aids were provided during visit for: ~*[facility] offered active and sup portive listening, normalized emotions and feelings, and processed ~current stressors. ~*Discussed engageing in counseling and looking into EMDR to address PTSD and increased nightmares Last Documented On 4 4:14PM ; [facility] Discussed nutritional needs teach healthy choices including fruits and vegetables Last Documented On 4 4:33PM ; [facility] Patient education about a pr oper diet Last Documented On 4 4:33PM ; [facility] Discussed concerns about exe rcise : promote physical activity Last Documented On 4 4:33PM ; [facility] [facility] offered active and suppo rtive listening and processed recent stressors. ~P discussed coping skills and supports to implement in managing increased anxiety such as tools learned previously in therapy. ~P discussed sleep hygiene strategies that can be implemented. ~[facility] encouraged patient to follow-up with specialists as scheduled Last Documented On 4 3:26PM ; [facility] Discussed nutritional needs teach healthy choices including fruits and vegetables Last Documented On 4 4:51PM ; [facility] Patient education about a pr oper diet Last Documented On 4 4:51PM ; [facility] Discussed concerns about exe rcise : promote physical activity Last Documented On 4 4:51PM ; [facility] Referred Patient to a Diabet es Self-Management Program Last Documented On 4 5:22PM ; [facility] and processed current stressors. ~P discussed coping skills and supports that can be implemented to manage increased anxiety and stressors. [facility] discussed potential of resuming counseling, even if for monthly visits to process ongoing stressors. ~[facility] encouraged patient to follow- up on referrals as discussed with PCP Last Documented On 4 10:08AM ; [facility] Discussed nutritional needs teach healthy choices including fruits and vegetables Last Documented On 4 4:46PM ; [facility] Patient education about a pr oper diet Last Documented On 4 4:46PM ; [facility] Discussed concerns about exe rcise : promote physical activity Last Documented On 4 4:46PM ; [facility] Not requesting contraception Last Documented On 4 4:46PM ; [facility] offered active and suppo rtive listening and processed current stressors related to getting medications. ~P discussed coping skills and supports to implement in daily routine. ~P discussed progress patient has felt they have made recently and encouraged continued follow-up with providers to address health Last Documented On 4 5:16PM ; [facility] Discussed nutritional needs teach healthy choices including fruits and vegetables Last Documented On 4 7:14PM ; [facility] Patient education about a pr oper diet Last Documented On 4 7:14PM ; [facility] Discussed concerns about exe rcise : promote physical activity Last Documented On 4 7:14PM ; [facility] Not requesting contraception Last Documented On 4 7:14PM ; [facility] Discussed nutritional needs teach healthy choices including fruits and vegetables Last Documented On 3 5:15PM ; [facility] Patient education about a pr oper diet Last Documented On 3 5:15PM ; [facility] Discussed concerns about exe rcise : promote physical activity Last Documented On 3 5:15PM ; [facility] Discussed nutritional needs teach healthy choices including fruits and vegetables Last Documented On 2 1:42PM ; [facility] Patient education about a pr oper diet Last Documented On 2 1:42PM ; [facility] Discussed concerns about exe rcise : promote physical activity Last Documented On 2 1:42PM ; [facility] and supportive feedback; normalized emotions and feelings, also provided pt time to process any current stressors. ~Promoted and encouraged follow-through with scheduling psychiatric services Last Documented On 2 3:21PM ; [facility] provided supportive, empa thic listening and reflective feedback. ~Explored, encouraged, and supported the pt to discuss current sx/mood, assess risk for harm/need, coping mechanisms, support network and safety planning. ~Supported pt's plan to f/up with Dr. Carney, as planned at [place], [place]. ~Encouraged pt to use safety plan, if needed to ensure she remains safe Last Documented On 2 2:27PM ; [facility] Discussed nutritional needs teach healthy choices including fruits and vegetables Last Documented On 2 3:20PM ; [facility] Patient education about a pr oper diet Last Documented On 2 3:20PM ; [facility] Discussed concerns about exe rcise : promote physical activity ~ ~Will restart trazodone and prazosin ~ ~Patient is planning to have brother stay with her for a few days for emotional support ~ ~Follow up with PCP at next scheduled visit ~ ~Call psychiatrist office to schedule appt ~ ~Call counselor Last Documented On 2 9:35AM ; [facility] Provided supportive listenin g and empathic feedback; encouraged, explored, and supported the pt as she processed current symptoms, Issues, and concerns. ~Discussed past tx and explored current needs/options. Acknowledged and validated pt's thoughts and emotions. ~Explored coping mechanisms and support network; utilized opportunity for safety planning; promoted seeking positive support and seeking help, as needed Last Documented On 2 3:28PM ; [facility] provided active listenin g, support and helped pt process though current symptoms and stressor(s). Discussed and explored past effectiveness of medication; identified objectives and future goals; promoted use of healthy coping mechanisms, and self-care practices Last Documented On 2 3:19PM ; [facility] Reviewed side effects and Ri sks/Benefits analysis Last Documented On 2 3:19PM ; [facility] Discussed nutritional needs teach healthy choices including fruits and vegetables Last Documented On 2 3:15PM ; [facility] Patient education about a pr oper diet Last Documented On 2 3:15PM ; [facility] Discussed concerns about exe rcise : promote physical activity Last Documented On 2 3:15PM ; [facility] introduced pt to [facility] in tegrated model of care ~[facility] offered active listening and supportive feedback; normalized emotions and feelings, also provided pt time to process any current stressors ~[facility] discussed potential benefits of counseling and supported re-engaging, as needed. ~[facility] encouraged pt to continue to make time to implement self-care regimen and use coping methods, as needed Last Documented On 2 4:07PM ; [facility] Discussed nutritional needs teach healthy choices including fruits and vegetables Last Documented On 2 3:15PM ; [facility] Patient education about a pr oper diet Last Documented On 2 3:15PM ; [facility] Inquiry and counseling about medication administration and compliance Last Documented On 2 7:37PM ; [facility] Discussed concerns about exe rcise : promote physical activity Last Documented On 2 3:15PM ; [facility] Patient goals discussed Last Documented On 2 7:37PM ; [facility] Ansewred pt's questions re B orderlline Personality D/O and Bipolar D/O raised by psychiatrist at [facility]. ~Validated and normalized patient?s feelings while assisting to process recent events Last Documented On 1 1:33AM ; [facility] Discussed nutritional needs teach healthy choices including fruits and vegetables Last Documented On 1 2:04PM ; [facility] Patient education about a pr oper diet Last Documented On 1 2:04PM ; [facility] Discussed concerns about exe rcise : promote physical activity Last Documented On 1 2:04PM ; [facility] provided active listenin g, support and helped [...] ER Last Documented On 1 10:17AM ; [facility] Patient education about a pr oper diet Last Documented On 1 5:17PM ; [facility] Patient education about meal planning Last Documented On 1 5:17PM ; [facility] Education about changing eat ing habits Last Documented On 1 5:17PM ; [facility] Patient education about high fiber diet Last Documented On 1 5:17PM ; [facility] Patient education about low fat diet Last Documented On 1 5:17PM ; [facility] Patient education about low cholesterol diet Last Documented On 1 5:17PM ; [facility] Patient education about low carbohydrate diet Last Documented On 1 5:17PM ; [facility] Patient education about high protein diet Last Documented On 1 5:17PM ; [facility] offered active and suppo rtive listening, normalized emotions and feelings, and processed current stressors. ~P discussed resources for finding a counselor and provided list of local resources. ~[facility] discussed patients coping skills and supports and encouraged patient to continue to implement. [facility] reminded patient of crisis resources should they be needed Last Documented On 1 7:15PM ; [facility] Discussed nutritional needs teach healthy choices including fruits and vegetables Last Documented On 1 11:38AM ; [facility] Patient education about a pr oper diet Last Documented On 1 11:38AM ; [facility] Patient education about a pr oper diet Last Documented On 1 12:19PM ; [facility] Patient education about meal planning Last Documented On 1 12:19PM ; [facility] Education about changing eat ing habits Last Documented On 1 12:19PM ; [facility] Patient education about high fiber diet Last Documented On 1 12:19PM ; [facility] Patient education about low fat diet Last Documented On 1 12:19PM ; [facility] Patient education about low cholesterol diet Last Documented On 1 12:19PM ; [facility] Patient education about low carbohydrate diet Last Documented On 1 12:19PM ; [facility] Patient education about high protein diet Last Documented On 1 12:19PM ; [facility] Discussed concerns about exe rcise : promote physical activity Last Documented On 1 11:38AM ; [facility] provided active listenin g, support and helped patient process through current symptoms and stressors related to family conflict. [facility] discussed coping skills and supports with patient that can be implemented and reminded patient of ways to access additional resources. [facility] discussed crisis resources and plan. Patient has crisis resources still available should they be needed Last Documented On 1 7:04PM ; [facility] Discussed nutritional needs teach healthy choices including fruits and vegetables Last Documented On 1 3:57PM ; [facility] Patient education about a pr oper diet Last Documented On 1 3:57PM ; [facility] Discussed concerns about exe rcise : promote physical activity Last Documented On 1 3:57PM ; [facility] integrated model of care. [facility] and PCP [...] ~P discussed crisis resources should mood worsen, [facility] provided text hotline number for crisis. [facility] reviewed crisis plan with patient and patient is able to contact positive supports and family when feeling down Last Documented On 1 11:46AM ; [facility] Discussed nutritional needs teach healthy choices including fruits and vegetables Last Documented On 1 2:11PM ; [facility] Patient education about a pr oper diet Last Documented On 1 2:11PM ; [facility] Discussed concerns about exe rcise : promote physical activity Last Documented On 1 2:11PM ; [facility] Work Phone: Instructions Includes: Instructions for all patient encounters Education and Decision Aids were provided during visit for: ~*[facility] offered active and sup portive listening, normalized emotions and feelings, and processed ~current stressors. ~*Discussed engageing in counseling and looking into EMDR to address PTSD and increased nightmares Last Documented On 4 4:14PM ; [facility] Discussed nutritional needs teach healthy choices including fruits and vegetables Last Documented On 4 4:33PM ; [facility] Patient education about a pr oper diet Last Documented On 4 4:33PM ; [facility] Discussed concerns about exe rcise : promote physical activity Last Documented On 4 4:33PM ; [facility] offered active and suppo rtive listening and processed recent stressors. ~P discussed coping skills and supports to implement in managing increased anxiety such as tools learned previously in therapy. ~P discussed sleep hygiene strategies that can be implemented. ~P encouraged patient to follow-up with specialists as scheduled Last Documented On 4 3:26PM ; [facility] Discussed nutritional needs teach healthy choices including fruits and vegetables Last Documented On 4 4:51PM ; [facility] Patient education about a pr oper diet Last Documented On 4 4:51PM ; [facility] Discussed concerns about exe rcise : promote physical activity Last Documented On 4 4:51PM ; [facility] Referred Patient to a Diabet es Self-Management Program Last Documented On 4 5:22PM ; [facility] active and suppo rtive listening and processed current stressors. ~[facility] discussed coping skills and supports that can be implemented to manage increased anxiety and stressors. P discussed potential of resuming counseling, even if for monthly visits to process ongoing stressors. ~[facility] encouraged patient to follow- up on referrals as discussed with PCP Last Documented On 4 10:08AM ; [facility] Discussed nutritional needs teach healthy choices including fruits and vegetables Last Documented On 4 4:46PM ; [facility] Patient education about a pr oper diet Last Documented On 4 4:46PM ; [facility] Discussed concerns about exe rcise : promote physical activity Last Documented On 4 4:46PM ; [facility] Not requesting contraception Last Documented On 4 4:46PM ; [facility] offered active and suppo rtive listening and processed current stressors related to getting medications. ~[facility] discussed coping skills and supports to implement in daily routine. ~[facility] discussed progress patient has felt they have made recently and encouraged continued follow-up with providers to address health Last Documented On 4 5:16PM ; [facility] Discussed nutritional needs teach healthy choices including fruits and vegetables Last Documented On 4 7:14PM ; [facility] Patient education about a pr oper diet Last Documented On 4 7:14PM ; [facility] Discussed concerns about exe rcise : promote physical activity Last Documented On 4 7:14PM ; [facility] Not requesting contraception Last Documented On 4 7:14PM ; [facility] Discussed nutritional needs teach healthy choices including fruits and vegetables Last Documented On 3 5:15PM ; [facility] Patient education about a pr oper diet Last Documented On 3 5:15PM ; [facility] Discussed concerns about exe rcise : promote physical activity Last Documented On 3 5:15PM ; [facility] Discussed nutritional needs teach healthy choices including fruits and vegetables Last Documented On 2 1:42PM ; [facility] Patient education about a pr oper diet Last Documented On 2 1:42PM ; [facility] Discussed concerns about exe rcise : promote physical activity Last Documented On 2 1:42PM ; [facility] and supportive feedback; normalized emotions and feelings, also provided pt time to process any current stressors. ~Promoted and encouraged follow-through with scheduling psychiatric services Last Documented On 2 3:21PM ; [facility] provided supportive, empa thic listening and reflective feedback. ~Explored, encouraged, and supported the pt to discuss current sx/mood, assess risk for harm/need, coping mechanisms, support network and safety planning. ~Supported pt's plan to f/up with Dr. Carney, as planned at [place], [place]. ~Encouraged pt to use safety plan, if needed to ensure she remains safe Last Documented On 2 2:27PM ; [facility] Discussed nutritional needs teach healthy choices including fruits and vegetables Last Documented On 2 3:20PM ; [facility] Patient education about a pr oper diet Last Documented On 2 3:20PM ; [facility] Discussed concerns about exe rcise : promote physical activity ~ ~Will restart trazodone and prazosin ~ ~Patient is planning to have brother stay with her for a few days for emotional support ~ ~Follow up with PCP at next scheduled visit ~ ~Call psychiatrist office to schedule appt ~ ~Call counselor Last Documented On 2 9:35AM ; [facility] Provided supportive listenin g and empathic feedback; encouraged, explored, and supported the pt as she processed current symptoms, Issues, and concerns. ~Discussed past tx and explored current needs/options. Acknowledged and validated pt's thoughts and emotions. ~Explored coping mechanisms and support network; utilized opportunity for safety planning; promoted seeking positive support and seeking help, as needed Last Documented On 2 3:28PM ; [facility] provided active listenin g, support and helped pt process though current symptoms and stressor(s). Discussed and explored past effectiveness of medication; identified objectives and future goals; promoted use of healthy coping mechanisms, and self-care practices Last Documented On 2 3:19PM ; [facility] Reviewed side effects and Ri sks/Benefits analysis Last Documented On 2 3:19PM ; [facility] Discussed nutritional needs teach healthy choices including fruits and vegetables Last Documented On 2 3:15PM ; [facility] Patient education about a pr oper diet Last Documented On 2 3:15PM ; [facility] Discussed concerns about exe rcise : promote physical activity Last Documented On 2 3:15PM ; [facility] introduced pt to [facility] in tegrated model of care ~[facility] offered active listening and supportive feedback; normalized emotions and feelings, also provided pt time to process any current stressors ~[facility] discussed potential benefits of counseling and supported re-engaging, as needed. ~[facility] encouraged pt to continue to make time to implement self-care regimen and use coping methods, as needed Last Documented On 2 4:07PM ; [facility] Discussed nutritional needs teach healthy choices including fruits and vegetables Last Documented On 2 3:15PM ; [facility] Patient education about a pr oper diet Last Documented On 2 3:15PM ; [facility] Inquiry and counseling about medication administration and compliance Last Documented On 2 7:37PM ; [facility] Discussed concerns about exe rcise : promote physical activity Last Documented On 2 3:15PM ; [facility] Patient goals discussed Last Documented On 2 7:37PM ; [facility] Ansewred pt's questions re B orderlline Personality D/O and Bipolar D/O raised by psychiatrist at [place]. ~Validated and normalized patient?s feelings while assisting to process recent events Last Documented On 1 1:33AM ; [facility] Discussed nutritional needs teach healthy choices including fruits and vegetables Last Documented On 1 2:04PM ; [facility] Patient education about a pr oper diet Last Documented On 1 2:04PM ; [facility] Discussed concerns about exe rcise : promote physical activity Last Documented On 1 2:04PM ; [facility] provided active listenin g, support and helped patient process through current symptoms and stressors with ongoing mental health concerns and medication changes. ~P discussed coping skills and supports that patient is implementing. discussed implementing coping skills as discussed with counseling and attending weekly appointments as scheduled with counselor. Patient was encouraged to continue writing down concerns with medications and discuss with providers. ~[facility] reminded patient of crisis resources should they be needed. Patient reports having crisis resources and could return to ER Last Documented On 1 10:17AM ; [facility] Patient education about a pr oper diet Last Documented On 1 5:17PM ; [facility] Patient education about meal planning Last Documented On 1 5:17PM ; [facility] Education about changing eat ing habits Last Documented On 1 5:17PM ; [facility] Patient education about high fiber diet Last Documented On 1 5:17PM ; [facility] Patient education about low fat diet Last Documented On 1 5:17PM ; [facility] Patient education about low cholesterol diet Last Documented On 1 5:17PM ; [facility] Patient education about low carbohydrate diet Last Documented On 1 5:17PM ; [facility] Patient education about high protein diet Last Documented On 1 5:17PM ; [facility] offered active and suppo rtive listening, normalized emotions and feelings, and processed current stressors. ~[facility] discussed resources for finding a counselor and provided list of local resources. ~[facility] discussed patients coping skills and supports and encouraged patient to continue to implement. [facility] reminded patient of crisis resources should they be needed Last Documented On 1 7:15PM ; [facility] Discussed nutritional needs teach healthy choices including fruits and vegetables Last Documented On 1 11:38AM ; [facility] Patient education about a pr oper diet Last Documented On 1 11:38AM ; [facility] Patient education about a pr oper diet Last Documented On 1 12:19PM ; [facility] Patient education about meal planning Last Documented On 1 12:19PM ; [facility] Education about changing eat ing habits Last Documented On 1 12:19PM ; [facility] Patient education about high fiber diet Last Documented On 1 12:19PM ; [facility] Patient education about low fat diet Last Documented On 1 12:19PM ; [facility] Patient education about low cholesterol diet Last Documented On 1 12:19PM ; [facility] Patient education about low carbohydrate diet Last Documented On 1 12:19PM ; [facility] Patient education about high protein diet Last Documented On 1 12:19PM ; [facility] Discussed concerns about exe rcise : promote physical activity Last Documented On 1 11:38AM ; [facility] provided active listenin g, support and helped patient process through current symptoms and stressors related to family conflict. [facility] discussed coping skills and supports with patient that can be implemented and reminded patient of ways to access additional resources. [facility] discussed crisis resources and plan. Patient has crisis resources still available should they be needed Last Documented On 1 7:04PM ; [facility] Discussed nutritional needs teach healthy choices including fruits and vegetables Last Documented On 1 3:57PM ; [facility] Patient education about a pr oper diet Last Documented On 1 3:57PM ; [facility] Discussed concerns about exe rcise : promote physical activity Last Documented On 1 3:57PM ; [facility] introduced patient to [facility] integrated model [...] ~P discussed crisis resources should mood worsen, [facility] provided text hotline number for crisis. P reviewed crisis plan with patient and patient is able to contact positive supports and family when feeling down Last Documented On 1 11:46AM ; [facility] Discussed nutritional needs teach healthy choices including fruits and vegetables Last Documented On 1 2:11PM ; [facility] Patient education about a pr oper diet Last Documented On 1 2:11PM ; [facility] Discussed concerns about exe rcise : promote physical activity Last Documented On 1 2:11PM ; [facility] Work Phone: Instructions Includes: Instructions for all patient encounters Education and Decision Aids were provided during visit for: ~*[facility] offered active and sup portive listening, normalized emotions and feelings, and processed ~current stressors. ~*Discussed engageing in counseling and looking into EMDR to address PTSD and increased nightmares Last Documented On 4 4:14PM ; [facility] Discussed nutritional needs teach healthy choices including fruits and vegetables Last Documented On 4 4:33PM ; [facility] Patient education about a pr oper diet Last Documented On 4 4:33PM ; [facility] Discussed concerns about exe rcise : promote physical activity Last Documented On 4 4:33PM ; [facility] offered active and suppo rtive listening and processed recent stressors. ~P discussed coping skills and supports to implement in managing increased anxiety such as tools learned previously in therapy. ~P discussed sleep hygiene strategies that can be implemented. ~[facility] encouraged patient to follow-up with specialists as scheduled Last Documented On 4 3:26PM ; [facility] Discussed nutritional needs teach healthy choices including fruits and vegetables Last Documented On 4 4:51PM ; [facility] Patient education about a pr oper diet Last Documented On 4 4:51PM ; [facility] Discussed concerns about exe rcise : promote physical activity Last Documented On 4 4:51PM ; [facility] Referred Patient to a Diabet es Self-Management Program Last Documented On 4 5:22PM ; [facility] offered active and suppo rtive listening and processed current stressors. ~P discussed coping skills and supports that can be implemented to manage increased anxiety and stressors. P discussed potential of resuming counseling, even if for monthly visits to process ongoing stressors. ~[facility] encouraged patient to follow- up on referrals as discussed with PCP Last Documented On 4 10:08AM ; [facility] Discussed nutritional needs teach healthy choices including fruits and vegetables Last Documented On 4 4:46PM ; [facility] Patient education about a pr oper diet Last Documented On 4 4:46PM ; [facility] Discussed concerns about exe rcise : promote physical activity Last Documented On 4 4:46PM ; [facility] Not requesting contraception Last Documented On 4 4:46PM ; [facility] offered active and suppo rtive listening and processed current stressors related to getting medications. ~[facility] discussed coping skills and supports to implement in daily routine. ~[facility] discussed progress patient has felt they have made recently and encouraged continued follow-up with providers to address health Last Documented On 4 5:16PM ; [facility] Discussed nutritional needs teach healthy choices including fruits and vegetables Last Documented On 4 7:14PM ; [facility] Patient education about a pr oper diet Last Documented On 4 7:14PM ; [facility] Discussed concerns about exe rcise : promote physical activity Last Documented On 4 7:14PM ; [facility] Not requesting contraception Last Documented On 4 7:14PM ; [facility] Discussed nutritional needs teach healthy choices including fruits and vegetables Last Documented On 3 5:15PM ; [facility] Patient education about a pr oper diet Last Documented On 3 5:15PM ; [facility] Discussed concerns about exe rcise : promote physical activity Last Documented On 3 5:15PM ; [facility] Discussed nutritional needs teach healthy choices including fruits and vegetables Last Documented On 2 1:42PM ; [facility] Patient education about a pr oper diet Last Documented On 2 1:42PM ; [facility] Discussed concerns about exe rcise : promote physical activity Last Documented On 2 1:42PM ; [facility] and [facility] feedback; normalized emotions and feelings, also provided pt time to process any current stressors. ~Promoted and encouraged follow-through with scheduling psychiatric services Last Documented On 2 3:21PM ; [facility] provided supportive, empa thic listening and reflective feedback. ~Explored, encouraged, and supported the pt to discuss current sx/mood, assess risk for harm/need, coping mechanisms, support network and safety planning. ~Supported pt's plan to f/up with Dr. Carney, as planned at [place], [place]. ~Encouraged pt to use safety plan, if needed to ensure she remains safe Last Documented On 2 2:27PM ; [facility] Discussed nutritional needs teach healthy choices including fruits and vegetables Last Documented On 2 3:20PM ; [facility] Patient education about a pr oper diet Last Documented On 2 3:20PM ; [facility] Discussed concerns about exe rcise : promote physical activity ~ ~Will restart trazodone and prazosin ~ ~Patient is planning to have brother stay with her for a few days for emotional support ~ ~Follow up with PCP at next scheduled visit ~ ~Call psychiatrist office to schedule appt ~ ~Call counselor Last Documented On 2 9:35AM ; [facility] Provided supportive listenin g and empathic feedback; encouraged, explored, and supported the pt as she processed current symptoms, Issues, and concerns. ~Discussed past tx and explored current needs/options. Acknowledged and validated pt's thoughts and emotions. ~Explored coping mechanisms and support network; utilized opportunity for safety planning; promoted seeking positive support and seeking help, as needed Last Documented On 2 3:28PM ; [facility] provided active listenin g, support and helped pt process though current symptoms and stressor(s). Discussed and explored past effectiveness of medication; identified objectives and future goals; promoted use of healthy coping mechanisms, and self-care practices Last Documented On 2 3:19PM ; [facility] Reviewed side effects and Ri sks/Benefits analysis Last Documented On 2 3:19PM ; [facility] Discussed nutritional needs teach healthy choices including fruits and vegetables Last Documented On 2 3:15PM ; [facility] Patient education about a pr oper diet Last Documented On 2 3:15PM ; [facility] Discussed concerns about exe rcise : promote physical activity Last Documented On 2 3:15PM ; [facility] introduced pt to HPWO in tegrated model of care ~[facility] offered active listening and supportive feedback; normalized emotions and feelings, also provided pt time to process any current stressors ~[facility] discussed potential benefits of counseling and supported re-engaging, as needed. ~[facility] encouraged pt to continue to make time to implement self-care regimen and use coping methods, as needed Last Documented On 2 4:07PM ; [facility] Discussed nutritional needs teach healthy choices including fruits and vegetables Last Documented On 2 3:15PM ; [facility] Patient education about a pr oper diet Last Documented On 2 3:15PM ; [facility] Inquiry and counseling about medication administration and compliance Last Documented On 2 7:37PM ; [facility] Discussed concerns about exe rcise : promote physical activity Last Documented On 2 3:15PM ; [facility] Patient goals discussed Last Documented On 2 7:37PM ; [facility] Ansewred pt's questions re B orderlline Personality D/O and Bipolar D/O raised by psychiatrist at [place]. ~Validated and normalized patient?s feelings while assisting to process recent events Last Documented On 1 1:33AM ; [facility] Discussed nutritional needs teach healthy choices including fruits and vegetables Last Documented On 1 2:04PM ; [facility] Patient education about a pr oper diet Last Documented On 1 2:04PM ; [facility] Discussed concerns about exe rcise : promote physical activity Last Documented On 1 2:04PM ; [facility] provided active listenin g, support and helped patient process through current symptoms and stressors with ongoing mental health concerns and medication changes. ~[facility] discussed coping skills and supports that patient [...] ER Last Documented On 1 10:17AM ; [facility] Patient education about a pr oper diet Last Documented On 1 5:17PM ; [facility] Patient education about meal planning Last Documented On 1 5:17PM ; [facility] Education about changing eat ing habits Last Documented On 1 5:17PM ; [facility] Patient education about high fiber diet Last Documented On 1 5:17PM ; [facility] Patient education about low fat diet Last Documented On 1 5:17PM ; [facility] Patient education about low cholesterol diet Last Documented On 1 5:17PM ; [facility] Patient education about low carbohydrate diet Last Documented On 1 5:17PM ; [facility] Patient education about high protein diet Last Documented On 1 5:17PM ; [facility] offered active and suppo rtive listening, normalized emotions and feelings, and processed current stressors. ~[facility] discussed resources for finding a counselor and provided list of local resources. ~P discussed patients coping skills and supports and encouraged patient to continue to implement. ~[facility] reminded patient of crisis resources should they be needed Last Documented On 1 7:15PM ; [facility] Discussed nutritional needs teach healthy choices including fruits and vegetables Last Documented On 1 11:38AM ; [facility] Patient education about a pr oper diet Last Documented On 1 11:38AM ; [facility] Patient education about a pr oper diet Last Documented On 1 12:19PM ; [facility] Patient education about meal planning Last Documented On 1 12:19PM ; [facility] Education about changing eat ing habits Last Documented On 1 12:19PM ; [facility] Patient education about high fiber diet Last Documented On 1 12:19PM ; [facility] Patient education about low fat diet Last Documented On 1 12:19PM ; [facility] Patient education about low cholesterol diet Last Documented On 1 12:19PM ; [facility] Patient education about low carbohydrate diet Last Documented On 1 12:19PM ; [facility] Patient education about high protein diet Last Documented On 1 12:19PM ; [facility] Discussed concerns about exe rcise : promote physical activity Last Documented On 1 11:38AM ; [facility] provided active listenin g, support and helped patient process through current symptoms and stressors related to family conflict. ~[facility] discussed coping skills and supports with patient that can be implemented and reminded patient of ways to access additional resources. ~[facility] discussed crisis resources and plan. Patient has crisis resources still available should they be needed Last Documented On 1 7:04PM ; [facility] Discussed nutritional needs teach healthy choices including fruits and vegetables Last Documented On 1 3:57PM ; [facility] Patient education about a pr oper diet Last Documented On 1 3:57PM ; [facility] Discussed concerns about exe rcise : promote physical activity Last Documented On 1 3:57PM ; [facility] model of care. [facility] and PCP reassured patient of not sharing information with anyone unless she has signed a release for us to do so. ~[facility] provided active listening, support and helped patient process through current symptoms and stressors. ~[facility] discussed establishing counseling and psychiatry. [facility] discussed EMDR therapy and ways to find provider who does this type of therapy. ~[facility] discussed crisis resources should mood worsen, [facility] provided text hotline number for crisis. [facility] reviewed crisis plan with patient and patient is able to contact positive supports and family when feeling down Last Documented On 1 11:46AM ; [facility] Discussed nutritional needs teach healthy choices including fruits and vegetables Last Documented On 1 2:11PM ; [facility] Patient education about a pr oper diet Last Documented On 1 2:11PM ; [facility] Discussed concerns about exe rcise : promote physical activity Last Documented On 1 2:11PM ; [facility] Work Phone: Instructions Includes: Instructions for all patient encounters Education and Decision Aids were provided during visit for: ~*[facility] offered active and sup portive listening, normalized emotions and feelings, and processed ~current stressors. ~*Discussed engageing in counseling and looking into EMDR to address PTSD and increased nightmares Last Documented On 4 4:14PM ; [facility] Discussed nutritional needs teach healthy choices including fruits and vegetables Last Documented On 4 4:33PM ; [facility] Patient education about a pr oper diet Last Documented On 4 4:33PM ; [facility] Discussed concerns about exe rcise : promote physical activity Last Documented On 4 4:33PM ; [facility] offered active and suppo rtive listening and processed recent stressors. ~[facility] discussed coping skills and supports to implement in managing increased anxiety such as tools learned previously in therapy. ~[facility] discussed sleep hygiene strategies that can be implemented. ~[facility] encouraged patient to follow-up with specialists as scheduled Last Documented On 4 3:26PM ; [facility] Discussed nutritional needs teach healthy choices including fruits and vegetables Last Documented On 4 4:51PM ; [facility] Patient education about a pr oper diet Last Documented On 4 4:51PM ; [facility] Discussed concerns about exe rcise : promote physical activity Last Documented On 4 4:51PM ; [facility] Referred Patient to a Diabet es Self-Management Program Last Documented On 4 5:22PM ; [facility] active and suppo rtive listening and processed current stressors. ~P discussed coping skills and supports that can be implemented to manage increased anxiety and stressors. P discussed potential of resuming counseling, even if for monthly visits to process ongoing stressors. ~[facility] encouraged patient to follow- up on referrals as discussed with PCP Last Documented On 4 10:08AM ; [facility] Discussed nutritional needs teach healthy choices including fruits and vegetables Last Documented On 4 4:46PM ; [facility] Patient education about a pr oper diet Last Documented On 4 4:46PM ; [facility] Discussed concerns about exe rcise : promote physical activity Last Documented On 4 4:46PM ; [facility] Not requesting contraception Last Documented On 4 4:46PM ; [facility] offered active and suppo rtive listening and processed current stressors related to getting medications. ~[facility] discussed coping skills and supports to implement in daily routine. ~[facility] discussed progress patient has felt they have made recently and encouraged continued follow-up with providers to address health Last Documented On 4 5:16PM ; [facility] Discussed nutritional needs teach healthy choices including fruits and vegetables Last Documented On 4 7:14PM ; [facility] Patient education about a pr oper diet Last Documented On 4 7:14PM ; [facility] Discussed concerns about exe rcise : promote physical activity Last Documented On 4 7:14PM ; [facility] Not requesting contraception Last Documented On 4 7:14PM ; [facility] Discussed nutritional needs teach healthy choices including fruits and vegetables Last Documented On 3 5:15PM ; [facility] Patient education about a pr oper diet Last Documented On 3 5:15PM ; [facility] Discussed concerns about exe rcise : promote physical activity Last Documented On 3 5:15PM ; [facility] Discussed nutritional needs teach healthy choices including fruits and vegetables Last Documented On 2 1:42PM ; [facility] Patient education about a pr oper diet Last Documented On 2 1:42PM ; [facility] Discussed concerns about exe rcise : promote physical activity Last Documented On 2 1:42PM ; [facility] offered active listening and supportive feedback; normalized emotions and feelings, also provided pt time to process any current stressors. ~Promoted and encouraged follow-through with scheduling psychiatric services Last Documented On 2 3:21PM ; [facility] provided supportive, empa thic listening and reflective feedback. ~Explored, encouraged, and supported the pt to discuss current sx/mood, assess risk for harm/need, coping mechanisms, support network and safety planning. ~Supported pt's plan to f/up with Dr. Carney, as planned at [place], [place]. ~Encouraged pt to use safety plan, if needed to ensure she remains safe Last Documented On 2 2:27PM ; [facility] Discussed nutritional needs teach healthy choices including fruits and vegetables Last Documented On 2 3:20PM ; [facility] Patient education about a pr oper diet Last Documented On 2 3:20PM ; [facility] Discussed concerns about exe rcise : promote physical activity ~ ~Will restart trazodone and prazosin ~ ~Patient is planning to have brother stay with her for a few days for emotional support ~ ~Follow up with PCP at next scheduled visit ~ ~Call psychiatrist office to schedule appt ~ ~Call counselor Last Documented On 2 9:35AM ; [facility] Provided supportive listenin g and empathic feedback; encouraged, explored, and supported the pt as she processed current symptoms, Issues, and concerns. ~Discussed past tx and explored current needs/options. Acknowledged and validated pt's thoughts and emotions. ~Explored coping mechanisms and support network; utilized opportunity for safety planning; promoted seeking positive support and seeking help, as needed Last Documented On 2 3:28PM ; [facility] provided active listenin g, support and helped pt process though current symptoms and stressor(s). Discussed and explored past effectiveness of medication; identified objectives and future goals; promoted use of healthy coping mechanisms, and self-care practices Last Documented On 2 3:19PM ; [facility] Reviewed side effects and Ri sks/Benefits analysis Last Documented On 2 3:19PM ; [facility] Discussed nutritional needs teach healthy choices including fruits and vegetables Last Documented On 2 3:15PM ; [facility] Patient education about a pr oper diet Last Documented On 2 3:15PM ; [facility] Discussed concerns about exe rcise : promote physical activity Last Documented On 2 3:15PM ; [facility] introduced pt to HPWO in tegrated model of care ~[facility] offered active listening and supportive feedback; normalized emotions and feelings, also provided pt time to process any current stressors ~[facility] discussed potential benefits of counseling and supported re-engaging, as needed. ~[facility] encouraged pt to continue to make time to implement self-care regimen and use coping methods, as needed Last Documented On 2 4:07PM ; [facility] Discussed nutritional needs teach healthy choices including fruits and vegetables Last Documented On 2 3:15PM ; [facility] Patient education about a pr oper diet Last Documented On 2 3:15PM ; [facility] Inquiry and counseling about medication administration and compliance Last Documented On 2 7:37PM ; [facility] Discussed concerns about exe rcise : promote physical activity Last Documented On 2 3:15PM ; [facility] Patient goals discussed Last Documented On 2 7:37PM ; [facility] Ansewred pt's questions re B orderlline Personality D/O and Bipolar D/O raised by psychiatrist at [place]. ~Validated and normalized patient?s feelings while assisting to process recent events Last Documented On 1 1:33AM ; [facility] Discussed nutritional needs teach healthy choices including fruits and vegetables Last Documented On 1 2:04PM ; [facility] Patient education about a pr oper diet Last Documented On 1 2:04PM ; [facility] Discussed concerns about exe rcise : promote physical activity Last Documented On 1 2:04PM ; [facility] provided active listenin g, support and helped patient process through current symptoms and stressors with ongoing mental health concerns and medication changes. ~[facility] discussed coping skills and supports that patient [...] ER Last Documented On 1 10:17AM ; [facility] Patient education about a pr oper diet Last Documented On 1 5:17PM ; [facility] Patient education about meal planning Last Documented On 1 5:17PM ; [facility] Education about changing eat ing habits Last Documented On 1 5:17PM ; [facility] Patient education about high fiber diet Last Documented On 1 5:17PM ; [facility] Patient education about low fat diet Last Documented On 1 5:17PM ; [facility] Patient education about low cholesterol diet Last Documented On 1 5:17PM ; [facility] Patient education about low carbohydrate diet Last Documented On 1 5:17PM ; [facility] Patient education about high protein diet Last Documented On 1 5:17PM ; [facility] offered active and suppo rtive listening, normalized emotions and feelings, and processed current stressors. ~[facility] discussed resources for finding a counselor and provided list of local resources. ~P discussed patients coping skills and supports and encouraged patient to continue to implement. ~[facility] reminded patient of crisis resources should they be needed Last Documented On 1 7:15PM ; [facility] Discussed nutritional needs teach healthy choices including fruits and vegetables Last Documented On 1 11:38AM ; [facility] Patient education about a pr oper diet Last Documented On 1 11:38AM ; [facility] Patient education about a pr oper diet Last Documented On 1 12:19PM ; [facility] Patient education about meal planning Last Documented On 1 12:19PM ; [facility] Education about changing eat ing habits Last Documented On 1 12:19PM ; [facility] Patient education about high fiber diet Last Documented On 1 12:19PM ; [facility] Patient education about low fat diet Last Documented On 12:19PM ; [facility] Patient education about low cholesterol diet Last Documented On 1 12:19PM ; [facility] Patient education about low carbohydrate diet Last Documented On 1 12:19PM ; [facility] Patient education about high protein diet Last Documented On 1 12:19PM ; [facility] Discussed concerns about exe rcise : promote physical activity Last Documented On 1 11:38AM ; [facility], support and helped patient process through current symptoms and stressors related to family conflict. ~P discussed coping skills and supports with patient that can be implemented and reminded patient of ways to access additional resources. ~P discussed crisis resources and plan. Patient has crisis resources still available should they be needed Last Documented On 1 7:04PM ; [facility] Discussed nutritional needs teach healthy choices including fruits and vegetables Last Documented On 1 3:57PM ; [facility] Patient education about a pr oper diet Last Documented On 1 3:57PM ; [facility] Discussed concerns about exe rcise : promote physical activity Last Documented On 1 3:57PM ; [facility] integrated model of care. [facility] and PCP reassured patient of not sharing information with anyone unless she has signed a release for us to do so. ~P provided active listening, support and helped patient process through current symptoms and stressors. ~[facility] discussed establishing counseling and psychiatry. P discussed EMDR therapy and ways to find provider who does this type of therapy. ~[facility] discussed crisis resources should mood worsen, [facility] provided text hotline number for crisis. [facility] reviewed crisis plan with patient and patient is able to contact positive supports and family when feeling down Last Documented On 1 11:46AM ; [facility] Discussed nutritional needs teach healthy choices including fruits and vegetables Last Documented On 1 2:11PM ; [facility] Patient education about a pr oper diet Last Documented On 1 2:11PM ; [facility] Discussed concerns about exe rcise : promote physical activity Last Documented On 1 2:11PM ; [facility] Work Phone: Patient problem outcome Narrative Includes: Evaluations & Outcomes for active Goals No Outcomes [facility]ed[facility] Work Phone: Progress note* Progress note Date Encounter Last Documented by 07/29/2024 Chart Update Last documented on 07/29/2024; 12:07 PM, Denny Lomeli CNP; [facility] Active Problems & Conditions - F90.9 - [...] symptoms persist, 1 days, 0 refills - en-Gauge Ultra In Vitro Strip USE ONE TEST [...] EndCited Care Team - Denny Lomeli CNP [facility] (narrative)No Reason for Referral RecordedAd[facility] Work Phone: Review of systems Narrative - Reported Review of Systems not supported for this document type No Review of Systems RecordedAd[facility] Work Phone: Summary Purpose Family History No [...] 03/17/2021 Last Documented On 1 4:06PM ; [facility] Fraternal history of psychiatric disorde rs 03/17/2021 Maternal history of hypertension 021 Maternal history of oncologic disorder 0 03/17/2021 Maternal history of psychiatric disorder s 03/17/2021 Paternal history of hypertension 021 Paternal history of oncologic disorder 0 03/17/2021 Description Last Updated Maternal history of epilepsy and recurre nt seizures 03/17/2021 Last Documented On 1 4:06PM ; [facility] Fraternal history of psychiatric disorde rs 03/17/2021 Maternal history of hypertension 021 Maternal history of oncologic disorder 0 03/17/2021 Maternal history of psychiatric disorder s 03/17/2021 Paternal history of hypertension 021 Paternal history of oncologic disorder 0 03/17/2021 Description Last Updated Maternal history of epilepsy and recurre nt seizures 03/17/2021 Last Documented On 1 4:06PM ; [facility] Fraternal history of psychiatric disorde rs 03/17/2021 Maternal history of hypertension 021 Maternal history of oncologic disorder 0 03/17/2021 Maternal history of psychiatric disorder s 03/17/2021 Paternal history of hypertension 021 Paternal history of oncologic disorder 0 03/17/2021 Description Last Updated Maternal history of epilepsy and recurre nt seizures 03/17/2021 Last Documented On 1 4:06PM ; [facility] Fraternal history of psychiatric disorde rs 03/17/2021 Maternal history of hypertension 021 Maternal history of oncologic disorder 0 03/17/2021 Maternal history of psychiatric disorder s 03/17/2021 Paternal history of hypertension 021 Paternal history of oncologic disorder 0 03/17/2021 Description Last Updated Maternal history of epilepsy and recurre nt seizures 03/17/2021 Last Documented On 1 4:06PM ; [facility] Fraternal history of psychiatric disorde rs 03/17/2021 Maternal history of hypertension 021 Maternal history of oncologic disorder 0 03/17/2021 Maternal history of psychiatric disorder s 03/17/2021 Paternal history of hypertension 021 Paternal history of oncologic disorder 0 03/17/2021 Description Last Updated Maternal history of epilepsy and recurre nt seizures 03/17/2021 Last Documented On 1 4:06PM ; [facility] Fraternal history of psychiatric disorde rs 03/17/2021 Maternal history of hypertension 021 Maternal history of oncologic disorder 0 03/17/2021 Maternal history of psychiatric disorder s 03/17/2021 Paternal history of hypertension 021 Paternal history of oncologic disorder 0 03/17/2021 Description Last Updated Maternal history of epilepsy and recurre nt seizures 03/17/2021 Last Documented On 1 4:06PM ; [facility] Fraternal history of psychiatric disorde rs 03/17/2021 Maternal history of hypertension 021 Maternal history of oncologic disorder 0 03/17/2021 Maternal history of psychiatric disorder s 03/17/2021 Paternal history of hypertension 021 Paternal history of oncologic disorder 0 03/17/2021 Description Last Updated Maternal history of epilepsy and recurre nt seizures 03/17/2021 Last Documented On 1 4:06PM ; [facility] Fraternal history of psychiatric disorde rs 03/17/2021 Maternal history of hypertension 021 Maternal history of oncologic disorder 0 03/17/2021 Maternal history of psychiatric disorder s 03/17/2021 Paternal history of hypertension 021 Paternal history of oncologic disorder 0 03/17/2021 Description Last Updated Maternal history of epilepsy and recurre nt seizures 03/17/2021 Last Documented On 1 4:06PM ; [facility] Fraternal history of psychiatric disorde rs 03/17/2021 Maternal history of hypertension 021 Maternal history of oncologic disorder 0 03/17/2021 Maternal history of psychiatric disorder s 03/17/2021 Paternal history of hypertension 021 Paternal history of oncologic disorder 0 03/17/2021 Description Last Updated Maternal history of epilepsy and recurre nt seizures 03/17/2021 Last Documented On 1 4:06PM ; [facility] Fraternal history of psychiatric disorde rs 03/17/2021 Maternal history of hypertension 021 Maternal history of oncologic disorder 0 03/17/2021 Maternal history of psychiatric disorder s 03/17/2021 Paternal history of hypertension 021 Paternal history of oncologic disorder 0 03/17/2021 Description Last Updated Maternal history of epilepsy and recurre nt seizures 03/17/2021 Last Documented On 1 4:06PM ; [facility] Fraternal history of psychiatric disorde rs 03/17/2021 Maternal history of hypertension 021 Maternal history of oncologic disorder 0 03/17/2021 Maternal history of psychiatric disorder s 03/17/2021 Paternal history of hypertension 021 Paternal history of oncologic disorder 0 03/17/2021 Description Last Updated Maternal history of epilepsy and recurre nt seizures 03/17/2021 Last Documented On 4:06PM ; [facility] Fraternal history of psychiatric disorde rs 03/17/2021 Maternal history of hypertension 021 Maternal history of oncologic disorder 0 03/17/2021 Maternal history of psychiatric disorder s 03/17/2021 Paternal history of hypertension 021 Paternal history of oncologic disorder 0 03/17/2021 Advance Directives No Advanced Directives Records FoundDocuments on File Type Date Recorded Patient Cancer Registry Coordinator Expl anation ACP-Advance Directive ACP-[employer] Documents on File Type Date Recorded Patient Cancer Registry Coordinator Expl anation ACP-Advance Directive [employer] Physical Exam Physical Exam not supported for [...] Monitor 48 Hour Denny Lomeli APRN - ACCOUNTING SYSTEMS ANALYST [address] [place] [address] Additional Source Comments INFORMATION SOURCE (unrecogn ized section and content) DATE CREATED AUTHOR 04/18/2018 [facility] DATE CREATED AUTHOR AUTHOR'S ORGANIZ ATION 11/14/2020 [facility] DATE CREATED AUTHOR AUTHOR'S ORGANIZ ATION 04/15/2021 [facility] DATE CREATED AUTHOR AUTHOR'S ORGANIZ ATION 07/11/2021 [facility] DATE CREATED AUTHOR AUTHOR'S ORGANIZ ATION 07/27/2021 [facility] DATE CREATED AUTHOR AUTHOR'S ORGANIZ ATION 08/16/2022 [facility] DATE CREATED AUTHOR AUTHOR'S ORGANIZ ATION 03/01/2024 [facility] DATE CREATED AUTHOR AUTHOR'S ORGANIZ ATION 08/13/2024 [facility] dical Specialists EPIC Reason for Visit [...] Procedures Holter Monitor 48 Hour Denny Lomeli, BILL ADJUSTER - ACCOUNTING SYSTEMS ANALYST [address] [place] [address] Scheduled Active and Recently Administ ered Medications [...] Care Teams (unrecognized sec tion and content) Furrier Designer Relationship Specialty Start Date End Date Denny Lomeli, BILL ADJUSTER - ACCOUNTING SYSTEMS ANALYST [address] [place] [id number] PCP - General Family Medicine 04/09/21 FOR [...] BE BASED ON THE PRIMARY CLINICAL RECORDS. [employer] provides no warranty or guarantee of the accuracy or completeness of information in this document.
[2024-08-16 07:45] LABS: Basophils Absolute Auto 0.1 10^3/uL (0.0-0.1); Basophils Percent Auto 0.6 % (0.2-2.0); Eosinophils Absolute Auto 0.3 10^3/uL (0.0-0.7); Hematocrit 29.2 % (36.0-48.0); Hemoglobin 9.2 g/dL (12.0-16.0); Immature Granulocytes Abs Auto 0.09 10^3/uL (0.00-0.03); Immature Granulocytes Pct Auto 0.7 % (0.0-0.5); Lymphocytes Absolute Auto 2.9 10^3/uL (1.2-3.8); Lymphocytes Percent Auto 21.8 % (20.5-60.0); Mean Corpuscular HGB Conc 31.5 g/dL (29.9-35.2); Mean Corpuscular Hemoglobin 25.2 pg (26.7-34.0); Mean Platelet Volume 8.6 fL (9.5-13.5); Monocytes Absolute Auto 0.8 10^3/uL (0.3-0.8); Monocytes Percent Auto 5.7 % (1.7-12.0); Neutrophils Absolute Auto 9.2 10^3/uL (1.4-6.5); Neutrophils Percent Auto 69.2 % (43.0-75.0); Platelet Count 290 10^3/uL (150-450); Red Blood Count 3.65 10^6/uL (4.20-5.40); White Blood Count 13.3 10^3/uL (4.0-11.0)
[2024-08-16 08:00] LABS: INR 0.98; Partial Thromboplastin Time 23.9 sec (22.3-36.2); Prothrombin Time 10.4 sec (9.0-11.6)
[2024-08-16 08:09] LABS: HCG Quantitative <1 mIU/mL
[2024-08-16] MEDS: LACTATED RINGER'S SOLUTION 1,000 ML 50 ML IV (08:14)
--- NOTE | 2024-08-16 08:30 | PC.NURSE ---
Dr. Donato made aware of WBC and Hgb this morning.
--- NOTE | 2024-09-06 07:51 | PM.ONB ---
Brief Operative Note Date of procedure: 08/16/24 Pre-op diagnosis general: acute blood loss anemia, menorrhagia Post-op diagnosis: same as pre-op Procedure: NAME OF PROCEDURE: [ D&c hysteroscopy with myosure] PROCEDURE: The patient was taken back to the Operating Room where she was prepped and draped in normal sterile fashion after being placed under general anesthesia without difficulty. She was also placed in the dorsal lithotomy position. A weighted speculum was placed in the patient?s vagina. The anterior lip of the cervix was identified and grasped with a single tooth tenaculum. The patient?s uterus was then sounded roughly to [? 8] cm. The patient was then gently dilated using Hegar dilators. The hysteroscope was passed through the patient?s cervix into the uterus. Both ostia were identified. fluffy appearing endometrium. No gross evidence of malignancy, no gross evidence of polyps or fibroids. The myosure apparatus was placed through the scope, The myosure was engaged and endometrial curretting were removed along with endometrial polyp, The hysteroscope was then removed from the uterus. The endometrial curettings were sent out to pathology. The single tooth tenaculum was then removed from the patient's anterior lip of the cervix where excellent hemostasis was noted. All instruments were removed from the patient?s vagina. The patient tolerated the procedure well. Sponge, lap and needle counts were correct times two. The patient was taken to the Recovery Room in stable condition.Room in stable condition. Anesthesia: FIORELLA Surgeon: Brent Donato Estimated blood loss (mL): 10 Pathology: other (endometrial currettings) Condition: stable Disposition: PACU Urinary Catheter Management Urinary Catheter Management Urethral: Cath placed during this visit: no
== END 2024-08-16 11:40 | disposition home or self-care (01) ==
PROVIDERS: Anesthesiology; PCP Nurse Practitioner Family; Visit Provider Obstetrics & Gynecology
PROC: (CPT 952; principal; 2024-08-16 08:55)
DX: N93.8 Other specified abnormal uterine and vaginal bleeding (principal); N92.0 Excessive and frequent menstruation with regular cycle; D62 Acute posthemorrhagic anemia; E66.01 Morbid (severe) obesity due to excess calories; Z68.43 Body mass index [BMI] 50.0-59.9, adult; F17.290 Nicotine dependence, other tobacco product, uncomplicated; I10 Essential (primary) hypertension; E28.2 Polycystic ovarian syndrome
CPT/HCPCS: 58558; 36415; 84702; 85025; 85610; 85730; 86850; 86900; 86901; 88305; J1100; J1885; J2250; J2405; J2704; J3010

== ENCOUNTER 2024-10-01 11:09 | Outpatient (OUT) | payer OTHER, SELFPAY ==
[2024-10-01 11:45] LABS: Basophils Absolute Auto 0.1 10^3/uL (0.0-0.1); Basophils Percent Auto 0.4 % (0.2-2.0); Eosinophils Absolute Auto 0.2 10^3/uL (0.0-0.7); Eosinophils Percent Auto 1.8 % (0.9-7.0); Hematocrit 34.3 % (36.0-48.0); Hemoglobin 10.6 g/dL (12.0-16.0); Immature Granulocytes Abs Auto 0.08 10^3/uL (0.00-0.03); Immature Granulocytes Pct Auto 0.7 % (0.0-0.5); Lymphocytes Absolute Auto 2.4 10^3/uL (1.2-3.8); Lymphocytes Percent Auto 20.1 % (20.5-60.0); Mean Corpuscular HGB Conc 30.9 g/dL (29.9-35.2); Mean Corpuscular Hemoglobin 24.8 pg (26.7-34.0); Mean Corpuscular Volume 80.3 fL (81.0-99.0); Mean Platelet Volume 8.6 fL (9.5-13.5); Monocytes Absolute Auto 0.5 10^3/uL (0.3-0.8); Monocytes Percent Auto 4.3 % (1.7-12.0); Neutrophils Absolute Auto 8.7 10^3/uL (1.4-6.5); Neutrophils Percent Auto 72.7 % (43.0-75.0); Platelet Count 270 10^3/uL (150-450); Red Blood Count 4.27 10^6/uL (4.20-5.40); Red Cell Distribution Width 16.3 % (11.0-15.0)
== END 2024-10-01 11:10 | disposition home or self-care (01) ==
PROVIDERS: PCP Nurse Practitioner Family; Visit Provider Obstetrics & Gynecology
DX: Z01.812 Encounter for preprocedural laboratory examination (principal); N92.0 Excessive and frequent menstruation with regular cycle; N93.9 Abnormal uterine and vaginal bleeding, unspecified; R10.2 Pelvic and perineal pain
CPT/HCPCS: 36415; 85025; 86850; 86900; 86901

== ENCOUNTER 2024-10-09 06:06 | Day surgery (SDC) | payer OTHER, SELFPAY ==
[2024-10-01 11:37] VITALS: BP 123/75; PULSE 67; TEMP 36.5; O2SAT 99; BMI 56.6
[2024-10-09] VITALS (8 sets, daily range): BP systolic 112–155; BP diastolic 63–97; PULSE 88–104; TEMP 36.6–36.7; O2SAT 96–99; BMI 56.6
[2024-10-09 06:16] LABS: Basophils Absolute Auto 0.1 10^3/uL (0.0-0.1); Basophils Percent Auto 0.5 % (0.2-2.0); Eosinophils Absolute Auto 0.3 10^3/uL (0.0-0.7); Eosinophils Percent Auto 1.7 % (0.9-7.0); Hematocrit 37.4 % (36.0-48.0); Hemoglobin 11.5 g/dL (12.0-16.0); Immature Granulocytes Abs Auto 0.09 10^3/uL (0.00-0.03); Immature Granulocytes Pct Auto 0.6 % (0.0-0.5); Lymphocytes Absolute Auto 3.2 10^3/uL (1.2-3.8); Mean Corpuscular HGB Conc 30.7 g/dL (29.9-35.2); Mean Corpuscular Hemoglobin 24.7 pg (26.7-34.0); Mean Corpuscular Volume 80.4 fL (81.0-99.0); Mean Platelet Volume 8.3 fL (9.5-13.5); Monocytes Absolute Auto 0.9 10^3/uL (0.3-0.8); Monocytes Percent Auto 6.1 % (1.7-12.0); Neutrophils Absolute Auto 9.9 10^3/uL (1.4-6.5); Neutrophils Percent Auto 69.1 % (43.0-75.0); Platelet Count 288 10^3/uL (150-450); Red Blood Count 4.65 10^6/uL (4.20-5.40); Red Cell Distribution Width 16.6 % (11.0-15.0); White Blood Count 14.4 10^3/uL (4.0-11.0)
[2024-10-09 06:30] LABS: Glucometer 124 mg/dL (74-106)
[2024-10-09 06:37] LABS: HCG Quantitative <1 mIU/mL
[2024-10-09] MEDS: LACTATED RINGER'S SOLUTION 1,000 ML 50 ML IV (07:40)
[2024-10-09] MEDS: SCOPOLAMINE 1 MG/3 DAYS TRANSDERM PATCH 1 PATCH TD (07:41)
[2024-10-09] MEDS: FAMOTIDINE/PF 20 MG/2 ML VIAL IV (07:42)
--- NOTE | 2024-10-09 08:26 | PM.ONB ---
Brief Operative Note Date of procedure: 10/09/24 Pre-op diagnosis general: menorrhagia Post-op diagnosis: same as pre-op Procedure: NAME OF PROCEDURE: [ ] Katherin endometrial ablation with hysteroscopy. PROCEDURE: The patient was taken back to the OR where she was prepped and draped in the normal sterile fashion after being placed in the dorsal lithotomy position, after being placed under general anesthesia without difficulty.? A weighted speculum was placed into the vagina. The anterior lip was grasped with a single tooth tenaculum. The patient was then sounded to approximated 8cm. The patient?s cervix was gently dilated using hegardilators. The hysteroscope was passed through the cervix into the uterus where both ostia were seen. No gross evidence of polyps, fibroids or malignancy. The cervical length was noted to be 4 cm. The total cavity length is 4cm.? The Katherin ablation apparatus was set to approximately 4cm in length. This was placed through the cervix and into the uterus. After the seal was tested, at that time the total ablation of 120 seconds was performed with the Katherin withoutdifficulty. All instruments were removed from the vagina. Excellent hemostasis noted.? Sponge and lap count correct times 2.? Patient taken to recovery in stable condition. Anesthesia: GETA Surgeon: Brent Donato Estimated blood loss (mL): 5 Pathology: none sent Condition: stable Disposition: PACU Urinary Catheter Management Urinary Catheter Management Urethral: Cath placed during this visit: no
[2024-10-09] MEDS: ACETAMINOPHEN 500 MG TABLET 1000 MG PO (09:31)
--- NOTE | 2024-10-09 09:48 | PC.NURSE ---
0920: pt reports cramping,requesting tylenol. order received from to give pt 1,000mg Tylenol PO one time.
--- NOTE | 2024-10-09 09:50 | PC.NURSE ---
0935: pt ambulates to bathroom,pt voids without difficulty.
== END 2024-10-09 09:40 | disposition home or self-care (01) ==
PROVIDERS: PCP Nurse Practitioner Family; Visit Provider Obstetrics & Gynecology
PROC: (CPT 952; principal; 2024-10-09 07:30)
DX: N92.0 Excessive and frequent menstruation with regular cycle (principal); N93.8 Other specified abnormal uterine and vaginal bleeding; R10.2 Pelvic and perineal pain; D50.9 Iron deficiency anemia, unspecified; I10 Essential (primary) hypertension; F31.9 Bipolar disorder, unspecified; Z88.1 Allergy status to other antibiotic agents; E66.01 Morbid (severe) obesity due to excess calories; K21.9 Gastro-esophageal reflux disease without esophagitis; F41.9 Anxiety disorder, unspecified; F43.10 Post-traumatic stress disorder, unspecified; G47.33 Obstructive sleep apnea (adult) (pediatric); Z79.84 Long term (current) use of oral hypoglycemic drugs; Z79.899 Other long term (current) drug therapy; Z87.891 Personal history of nicotine dependence; Z88.8 Allergy status to other drugs, medicaments and biological substances; Z68.43 Body mass index [BMI] 50.0-59.9, adult
CPT/HCPCS: 58563; 36415; 82948; 84702; 85025

== ENCOUNTER 2024-11-23 04:39 | Emergency (ER) | payer OTHER, SELFPAY ==
[2024-11-23 04:44] VITALS: BP 109/77; PULSE 120; TEMP 37.1; O2SAT 97; BMI 50.8
--- OUTSIDE RECORDS SUMMARY | 2024-11-23 04:47 | XMS_ITS | CCD ---
Author Organization [facility] Care Team Providers Care Banjo Repair Person Name Role Phone MARIBEL ASTORGA MD Unavailable Unavailab MARIBEL Turner MD Unavailable Unavailab jazmin NONE Unavailable Unavailable ADDIS BARBER Attending Unavailable ADDIS BARBER Consulting Unavailable ADDIS BARBER Admitting Unavailable Armani SCOTT, Denny Primary Care Provider [employer]ani 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 - VP OF GLOBAL MARKETING, Denny M Primary Care Provider LARRY ESPINOZA [...] ARMANI, DENNY M Primary Care Unavailable [employer]ani 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 - VP OF [employer]LOBAL MARKETING, Denny M Primary Care Provider ARMANI, DENNY M Referring Unavailable ARMANI, DENNY M Primary Care Unavailable Armani VP OF GLOBAL MARKETING, Denny Primary Care Provider ARMANI, DENNY M Primary Care Unavailable MABLE RO Attending Unavailable MABLE RO Attending Unavailable MABLE RO Referring Unavailable ARMANI, DENNY M Primary Care Unavailable Armani VP OF GLOBAL MARKETING, Denny Unavailable DO Brent Donato Attending Provider Brent Donato Attending Unavailable Brent Donato Admitting Unavailable BRENT DONATO Attending Unavailable LELO COLLADO Attending Unavailable BRENT DONATO Attending Unavailable Allergies Allergy Classification Reported Allergen(s) Allergy Type Date of Onset Reaction(s) Facility Amoxicillin / Clavulanate (6 sources) Amoxicillin / Clavulanate; Translations: [Augmentin 500-125 MG Oral Tablet] Drug Allergy 1 [facility] ARIPiprazole (6 sources) ARIPiprazole; Translations: [Abilify] Drug Allergy 1 [facility] metFORMIN (6 sources) metFORMIN; Translations: [metformin] Drug Allergy 1 Nausea, Vomiting [facility] Serotonin Reuptake Inhibitors (SSRIs) (7 sources) Sertraline; Translations: [trazodone hydrochloride] Drug Allergy 1 Panic attack, [facility] Unclassified (6 sources) Amoxicillin-Pot Clavulanate; Translations: [AMOXICILLIN-PO T CLAVULANATE] Propensity to adverse reactions to drug 7 [facility] (1 source) Amoxicillin / Clavulanate Drug Allergy 4 [facility] Repository (20 sources) Amoxicillin / Clavulanate; Translations: [Augmentin 500-125 MG Oral Tablet] Drug Allergy 1 [facility] (20 sources) ARIPiprazole; Translations: [Abilify] Drug Allergy 1 [facility] (20 sources) metFORMIN; Translations: [METFORMIN] Drug Allergy 0 Nausea, Vomiting [facility] (15 sources) Sertraline Drug All[facility] 1 [facility] (4 sources) traZODone Drug Allergy 2 Panic attack [facility] (3 sources) nickel; Translations: [NICKEL] Drug Allergy 7 Nausea [facility] (1 source) CARBONIC ANHYDRASE INHIBITORS; Translations: [CARBONIC ANHYDRASE INHIBITORS] Propensity to adverse reactions to drug (disorder) 7 [facility] (9 sources) Sertraline Drug Allergy 4 [facility] (9 sources) traZODone Drug Allergy 4 Panic attack [facility] (2 sources) Amoxicillin; Translations: [amoxicillin] Drug Allergy 0 Anaphylaxis [facility] (2 sources) Clavulanate; Translations: [clavulanic acid] Drug Allergy 0 Anaphylaxis [facility] (2 sources) diphenhydrAMINE ; Translations: [diphenhydramin e] Drug Allergy 0 [facility] (2 sources) petrolatum,whit e; Translations: [petrolatum,whi te] Propensity to adverse reactions 0 [facility] Medications Current Medications Medication Drug Class(es) Dates Sig (Normalized) Sig (Original) Alcohol Pads 70% (8 sources) Start: 06-13-2024 Alcohol Pads 70% 06/13/2024 Provider: Denny Lomeli CNP ARIPiprazole 5 mg oral tablet (20 sources) Atypical Antipsychotic Start: 08-11-2023 End: 01-17-2024 ARIPiprazole 5 MG Oral Tablet 01/17/2024 Provider: Denny Lomeli CNP Start: 06-16-2020 take 2 mg by mouth o nce daily at bedtime Aripiprazole Active 2 MG PO Daily at bedtime June 16, 2020 12:00am atorvastatin 20 mg oral tablet (8 sources) HMG-CoA Reductase Inhibitor Start: 06-13-2024 Atorvastatin Calcium 20 MG Oral Tablet 06/13/2024 Provider: Denny Lomeli CNP Blood Glucose System Ren Kit (8 sources) Start: 06-13-2024 Blood Glucose System Ren Kit 06/13/2024 Provider: Denny Lomeli CNP busPIRone hydrochloride 10 mg oral tablet (20 sources) Start: 06-13-2024 busPIRone HCl 10 MG Oral Tablet 06/13/2024 Provider: Denny Lomeli CNP Start: 09-11-2023 End: 06-13-2024 busPIRone HCl 5 MG Oral Tabl et 01/17/2024 - 06/13/2024 Provider: Denny Lomeli CNP docusate sodium 100 mg oral capsule (6 sources) Start: 07-01-2024 Colace 100 MG Oral Capsule 07/01/2024 Provider: Denny Lomeli CNP Norgestimate-Ethin yl Estradiol (1 source) Progestin, Estrogen Start: 06-11-2020 take 1 tablet by mouth once daily Norgestimate-Ethi nyl Estradiol (Real-Linyah) 0.25-35 mg-mcg tablet Active 1 TAB PO Daily June 11, 2020 12:00am 24 hr guanFACINE 1 mg extended release oral tablet (19 sources) Central alpha-2 Adrenergic Agonist Start: 01-17-2024 [...] Pain 120 tablet 0 07/09/2021 Active Iron (6 sources) Start: 07-01-2024 [facility] Iron 325 (65 Fe) MG Oral Tablet 07/01/2024 Provider: Denny Lomeli CNP lisinopril 5 mg oral tablet (8 sources) Angiotensin Converting Enzyme Inhibitor Start: 06-13-2024 [...] for Dizziness 30 tablet 0 08/31/2017 Active metoprolol tartrate 25 mg oral tablet (1 source) beta-Adrenergic Joao Start: 06-11-2020 take 25 mg by mouth twice daily Metoprolol Tartrate Active 25 MG PO Twice daily June 11, 2020 12:00am naloxone hydrochloride 40 mg/ml nasal spray (20 sources) Opioid Antagonist Start: 03-17-2021 End: 03-17-2021 Narcan 4 MG/0.1ML Nasal Liquid 03/17/2021 Provider: Denny Lomeli CNP Naproxen (3 sources) Nonsteroidal Anti-inflammatory Drug Naproxen Sodium (ALEVE PO) Take 1 tablet by mouth as needed 0 Active polyethylene glycol 3350 94451 mg powder for oral solution (20 sources) Osmotic Laxative Start: 06-17-2021 MiraLax 17 GM/SCOOP Oral Powder 06/17/2021 Provider: Denny Lomeli CNP SITagliptin 50 mg oral tablet (11 sources) Dipeptidyl Peptidase 4 Inhibitor Start: 06-13-2024 [...] 1 MG Oral Tablet) } Pack [Slynd] (8 sources) Start: 06-13-2024 Slynd 4 MG Oral [...] oral solution (20 sources) alpha-Adrenergic Agonist, Uncompetitive V-gnyubz-N-aspartat e Receptor Antagonist, Sigma-1 Agonist Start: 04-22-2021 [...] / neomycin 3.5 mg/ml / polymyxin b 07176 unt/ml otic suspension (20 sources) Aminoglycoside Antibacterial, Polymyxin-class Antibacterial, Corticosteroid Start: 04-23-2021 End: 06-17-2021 Dswargux-Phgqiemoe-IZ 3.5-89900-6 Otic Suspension 04/23/2021 - 06/17/2021 Provider: Denny [...] 05/06/2023 - 04/10/2024 Provider: Start: 06-17-2021 End: 10-21-2022 take 1 tablet by mouth every twenty-four [...] 05/27/2022 - 05/10/2023 Provider: Leah Amaya CNP QUEtiapine 50 mg oral tablet (6 sources) Atypical Antipsychotic Start: 07-11-2024 End: 09-06-2024 SEROquel 50 MG Oral Tablet 07/11/2024 - 09/06/2024 Provider: Denny Lomeli CNP sertraline 50 mg oral tablet (20 sources) Serotonin Reuptake Inhibitor Start: 11-11-2023 End: 07-18-2024 Sertraline HCl 50 MG Oral Tablet 01/17/2024 - 07/18/2024 Provider: Denny Lomeli CNP Start: 06-16-2020 End: 07-15-2021 Zoloft 50 MG Oral Tablet - 04/23/2021 Provider: traZODone hydrochloride 100 mg oral tablet [...] Chronic Attention-deficit, conduct, and disruptive behavior disorders (13 sources) Undifferentiated attention deficit disorder; 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] Onset: 01-17-2024 Chronic Deficiency and other anemia (4 sources) Iron deficiency anemia; Translations: [Iron deficiency anemia, unspecified] Onset: 07-29-2024 Episodic Diabetes mellitus without complication (20 sources) Type 2 diabetes mellitus without complication; Translations: [Type 2 diabetes mellitus without complications] Onset: 06-13-2024 06-13-2024 Chronic Diseases of white blood cells (1 source) Leukocytosis; Translations: [Elevated white blood cell count, unspecified] 06-12-2020 Chronic Disorders of teeth and jaw (6 sources) Dental caries; Translations: [Dental caries, unspecified] Onset: 07-18-2024 Episodic Essential hypertension (18 sources) Hypertensive disorder; Translations: [Unspecified essential hypertension] Onset: 03-17-2021 Chronic Genitourinary symptoms and ill-defined conditions (1 source) Dysuria; Translations: [Dysuria] 06-12-2020 Episodic Immunizations and screening for infectious disease (20 sources) Contact with and (suspected) exposure to other viral communicable diseases; Translations: [HIV screening] Onset: 06-06-2020 Episodic Impulse control disorders, NEC (1 source) Homicidal thoughts; Translations: [Homicidal ideations] Episodic Menstrual disorders (16 sources) Dysmenorrhea; Translations: [Dysmenorrhea, unspecified] Onset: 06-13-2024 06-13-2024 Chronic Mood disorders (20 sources) Depressive disorder; Translations: [Major depressive disorder, single episode, unspecified] Onset: 04-23-2021 Chronic Nonspecific chest pain (3 sources) Other chest pain; Translations: [Chest pain] Onset: 02-28-2024 Episodic Nutritional deficiencies (1 source) Vitamin D deficiency; Translations: [Vitamin D deficiency, unspecified] 06-12-2020 Chronic Other ear and sense organ disorders (7 [...] unspecified, uncomplicated] Onset: 06-17-2021 Resolved: 05-10-2023 Chronic Suicide and intentional self-inflicted injury (1 source) Suicidal thoughts; Translations: [Suicidal ideations] 06-12-2020 Episodic Past or Other Problems Problem Classification Problem Date Documented Da te Episodic/Chronic Cardiac dysrhythmias (10 sources) Tachycardia; Translations: [Tachycardia, unspecified] Onset: 07-15-2021 Episodic Conditions associated with dizziness or vertigo (5 sources) Dizziness; Translations: [Dizziness and giddiness] Onset: 08-31-2017 08-31-2017 Episodic Deficiency and other anemia (10 sources) Anemia; Translations: [Anemia, unspecified] Onset: 04-10-2024 [...] Test Name Value Interpretation Reference Range Facility [facility] 08-16-2024 L Specimen: [id number] Received: 08/19/24 Status: MAI Fuentes Num: [id number] Spec Type: Surgical Subm Dr: Brent Donato Tissues: A Endometrium - Curettings (ENDOMETRIAL CURETTINGS) Procedures: HE/8, Gross/Micro L4 Age/ Patient Sex Location Account Attending Physician Cordelia Guaman 24/ LABELL [id number] Brent Donato SPEC NUM: [id number] RECD: 08/19/24 STATUS: MAI FUENTES NUM: [id number] HEMAL: 08/16/[address]: Brent Donato ENTERED: 08/19/24 [facility] DR: Sony Perez SPEC TYPE: Surgical DEPT: GET SHAIKH ORDERED: HE/8, Gross/Micro L4 ORDERED: HE/8, Gross/Micro L4 Pathological Diagnosis Endometrium, curettage: - Benign endometrium with inactive endometrium and decidualized stroma consistent with exogenous progesterone hormonal effect. - Fragments of benign endocervical mucosa. - No evidence of hyperplasia or malignancy identified. Clinical Information Dysfunctional uterine bleeding Gross Description The specimen is received in formalin with the patient's name and endometrial curettings and consists of multiple valadez hemorrhagic tissue fragments measuring 5.0 x 5.0 x 1.0 cm in aggregate. The specimen is entirely submitted in cassettes A1 to A4. Microscopic Description Microscopic examination is performed. Specimen: [id number] Received: 08/19/24 Status: MAI Fuentes Num: [id number] Spec Type: Surgical Subm Dr: Brent Donato Tissues: A Endometrium - Curettings (ENDOMETRIAL CURETTINGS) Procedures: Sonia/Gage L4 Patient: Cordelia Guaman [id number] (Continued) Specimen: [id number] Received: 08/19/24 (Continued) Signed (signature on file) Eliecer Inman MD 08/21/241119 Specimen: [id number] Received: 08/19/24 Status: MAI Fuentes Num: [id number] Spec Type: Surgical Subm Dr: Brent Donato Tissues: A Endometrium - Curettings (ENDOMETRIAL CURETTINGS) Procedures: , Gross/Micro L4 Patient: Cordelia Guaman [id number] (Continued) Specimen: [id number] Received: 08/19/24 (Continued) CPT Codes 90731 Specimen: [id number] Received: 08/19/24 Status: MAI Fuentes Num: [id number] Spec Type: Surgical Subm Dr: Brent Donato Tissues: A Endometrium - Curettings (ENDOMETRIAL CURETTINGS) Procedures: HE/Christophe, Sonia/Gage L4 Patient: IbisCordelia chaney [id number] (Continued) Signed (signature on file) Eliecer Inman MD 08/21/24 1120 Normal [facility] Laboratory - Chemistry and C hemistry - challengeon 06-13-2024 Ferritin [Mass/Vol] 118 ng/mL (15-150 ) [facility] Free T3 [Mass/Vol] 3.2 pg/mL (2.0-4.4 ) [facility] Free T4 [Mass/Vol] 1.13 ng/dL (0.82-1.7 7 ) [facility] Iron [Mass/Vol] 52 ug/dL (27-159 ) [facility] Iron binding capacity [Mass/Vol] 396 ug/dL (250-450 ) [facility] Iron binding capacity.unsaturated [Mass/Vol] 344 ug/dL (131-425 ) [facility] Iron saturation [Mass fraction] 13 % Low (15-55 ) [facility] TSH Qn 2.930 uIU/mL (0.450-4.50 0 ) [facility] Laboratory - Hematology and Cell countson 06-13-2024 Basophils (Bld) [#/Vol] 0.1 10*3/uL (0.0-0.2 ) [facility] Basophils/100 WBC (Bld) 0 % (Not Estab. ) [facility] Eosinophils (Bld) [#/Vol] 0.2 10*3/uL (0.0-0.4 ) [facility] Eosinophils/100 WBC (Bld) 1 % (Not Estab. ) [facility] Erythrocyte distribution width (RBC) [Ratio] 15.7 % High (11.7-15.4 ) [facility] Hematocrit (Bld) [Volume fraction] 41.3 % (34.0-46.6 ) [facility] Hemoglobin (Bld) [Mass/Vol] 12.9 g/dL (11.1-15.9 ) [facility] Immature granulocytes (Bld) [#/Vol] 0.1 10*3/uL (0.0-0.1 ) [facility] Immature granulocytes/100 WBC (Bld) 1 % (Not Estab. ) [facility] Lymphocytes (Bld) [#/Vol] 2.4 10*3/uL (0.7-3.1 ) [facility] Lymphocytes/100 WBC (Bld) 18 % (Not Estab. ) [facility] MCH (RBC) [Entitic mass] 24.3 pg Low (26.6-33.0 ) [facility] MCHC (RBC) [Mass/Vol] 31.2 g/dL Low (31.5- 35.7 ) [facility] MCV (RBC) [Entitic vol] 78 fL Low (79-97 ) [facility] Monocytes (Bld) [#/Vol] 0.6 10*3/uL (0.1-0.9 ) [facility] Monocytes/100 WBC (Bld) 5 % (Not Estab. ) [facility] Morphology Ramesh (Bld) [Interp] OPERATING ROOM RN [facility] Neutrophils (Bld) [#/Vol] 9.7 10*3/uL High (1.4-7.0 ) [facility] Neutrophils/100 WBC (Bld) 75 % (Not Estab. ) [facility] Nucleated RBC/100 WBC (Bld) [Ratio] OPERATING ROOM RN [facility] Platelets (Bld) [#/Vol] 308 10*3/uL (150-450 ) [facility] RBC (Bld) [#/Vol] 5.31 10*6/uL High (3.77-5.28 ) [facility] WBC (Bld) [#/Vol] 13.1 10*3/uL High (3.4-10.8 ) [facility] Laboratory - Serology - non- microon 06-13-2024 Thyroglobulin Ab Qn [IU]/mL (0.0-0.9 ) [facility] Comment on above: Note: Thyroglobulin Antibody measured by Frankie evidanzaMethodology .It should be noted that the presence of thyroglobulinantibodies may not be pathogenic nor diagnostic, especiallyat very low levels. The assay timber hand has found thatfour percent of individuals without evidence of thyroiddisease or autoimmunity will have positive TgAb levels upto 4 IU/mL. TPO Ab Qn 14 [IU]/mL (0-34 ) [facility] No Panel Informationon 06-13 Immature Cells OPERATING ROOM RN [facility] Reported Physicians See Note [facility] Comment on above: Note: Reported Physi cians:Ordering: Denny Lomeli Troponin I.cardiac High sens itivity method [Mass/Vol]on 02-29-2024 1 HOUR TROP I, HIGH SENSITIVITY <2 Normal <16 [facility] Comment on above: Performed By: #### 8 9579-7 #### [facility] ([id number]) [address] [place] [address], [place] [address] BASIC METABOLIC PANLon 02-27 Anion gap [Moles/Vol] 7 mmol/L Normal 5-15 [facility] Comment on above: Performed By: #### C BCA, BMP, 37085-4, 78321-4, 97598-8 #### [facility] ([id number]) [address] [place] [address], [place] [address] Calcium [Mass/Vol] 8.9 mg/dL Normal 8.5-10.5 [facility] Comment on above: Performed By: #### C BCA, BMP, 28935-6, 13835-3, 55557-6 #### [facility] ([id number]) [address] [place] [address]9571 Chloride [Moles/Vol] 101 mmol/L Normal 98-109 [facility] Comment on above: Performed By: #### C BCA, BMP, 62764-7, 45284-8, 87625-1 #### [facility] ([id number]) [address] [place] [address] 46610 CO2 [Moles/Vol] 28 mmol/L Normal 22-32 [facility] Comment on above: Performed By: #### C BCA, BMP, 10208-0, 72865-8, 73133-6 #### [facility] ([id number]) [address] [place] [address] 79986 Creatinine [Mass/Vol] 0.91 mg/dL Normal 0.40-1.00 [facility] Comment on above: Result Comment: METH OD TRACEABLE TO IDMS STANDARD Performed By: #### C MARIETTA, BMP, 39276-0, 86182-5, 22752-3 #### [facility] ([id number]) [address] [place] [address]1947 eGFR (CKD-EPI) NON-RACE DEPENDENT >90 Normal >59 [facility] Comment on above: Result Comment: Reported eGFR is based on the CKD-EPI 2021 equation that does not use a race coefficient. Performed By: #### C BCA, BMP, 87117-5, 95968-8, 06974-8 #### [facility] ([id number]) [address] [place] [address] 18774 Glucose [Mass/Vol] 107 mg/dL High 65-99 [facility] Comment on above: Performed By: #### C BCA, BMP, 58297-7, 22388-6, 07844-1 #### [facility] ([id number]) [address] [place] [address] 07629 Potassium [Moles/Vol] 3.5 mmol/L Normal 3.5-5.0 [facility] Comment on above: Performed By: #### C MARIETTA, BMP, , 05437-5, 60858-2 #### [facility] ([id number]) [address] [place] [address] 38860 Sodium [Moles/Vol] 136 mmol/L Normal 134-146 [facility] Comment on above: Performed By: #### C MARIETTA, BMP, , 34017-1, 04032-4 #### [facility] ([id number]) [address] [place] [address] 33638 Urea nitrogen [Mass/Vol] 10 mg/dL Normal 5-23 [facility] Comment on above: Performed By: #### C MARIETTA, BMP, , 72035-5, 76120-5 #### [facility] ([id number]) [address] [place] [address] 92519 CBC AND AUTO DIFFon 02-28-20 24 ABSOLUTE BASOPHIL 0.2 X10E9/L Normal 0.0-0.2 [facility] Comment on above: Performed By: #### C MARIETTA, BMP, , 04760-8, 45632-0 #### [facility] ([id number]) [address] [place] [address] 68713 ABSOLUTE NEUTROPHIL 10.7 X10E9/L High 1.5-6.6 [facility] Comment on above: Performed By: #### C BCA, BMP, , 06165-2, 75388-4 #### [facility] ([id number]) [address] [place] [address] 61251 Basophils/100 WBC (Bld) 1.1 % Normal [facility] Comment on above: Performed By: #### C BCA, BMP, 04608-4, 40243-4, 52220-9 #### [facility] ([id number]) [address] [place] [address] 92290 Eosinophils (Bld) [#/Vol] 0.2 10*3/uL Normal 0.0-0.4 [facility] Comment on above: Performed By: #### C BCA, BMP, , 67102-4, 53894-0 #### [facility] ([id number]) [address] [place] [address] 10766 Eosinophils/100 WBC (Bld) 1.3 % Normal [facility] Comment on above: Performed By: #### C BCA, BMP, , 55365-2, 94764-5 #### [facility] ([id number]) [address] [place] [address] 98019 Erythrocyte distribution width (RBC) [Ratio] 19.4 % High 11.5-15.0 [facility] Comment on above: Performed By: #### C BCA, BMP, , 29598-0, 33946-4 #### [facility] ([id number]) [address] [place] [address] 46945 Hematocrit (Bld) [Volume fraction] 33.5 % Low 35-47 [facility] Comment on above: Performed By: #### C BCA, BMP, , 21650-8, 29540-9 #### [facility] ([id number]) [address] [place] [address] 26422 Hemoglobin (Bld) [Mass/Vol] 10.6 g/dL Low 11.7-15.5 [facility] Comment on above: Performed By: #### C BCA, BMP, , 32344-8, 68183-0 #### [facility] ([id number]) [address] [place] [address] 26077 Lymphocytes (Bld) [#/Vol] 2.4 10*3/uL Normal 1.0-3.5 [facility] Comment on above: Performed By: #### C MARIETTA, BMP, , 86239-6, 26673-9 #### [facility] ([id number]) [address] [place] [address] 61462 Lymphocytes/100 WBC (Bld) 17.2 % Normal [facility] Comment on above: Performed By: #### C MARIETTA, BMP, , 53019-7, 83866-2 #### [facility] ([id number]) [address] [place] [address] 24990 MCH (RBC) [Entitic mass] 21.7 pg Low 27-34 [facility] Comment on above: Performed By: #### C MARIETTA, BMP, , 27261-8, 68832-6 #### [facility] ([id number]) [address] [place] [address] 16400 MCHC (RBC) [Mass/Vol] 31.6 g/dL Low 32-36 [facility] Comment on above: Performed By: #### C MARIETTA, BMP, , 00779-6, 03557-4 #### [facility] ([id number]) [address] [place] [address] 46345 MCV (RBC) [Entitic vol] 69 fL Low 80-100 P [facility] Comment on above: Performed By: #### C MARIETTA, BMP, , 29973-8, 22704-7 #### [facility] ([id number]) [address] [place] [address] 22893 Monocytes (Bld) [#/Vol] 0.7 10*3/uL Normal 0-0.9 [facility] Comment on above: Performed By: #### C BCA, BMP, 37829-1, 29630-8, 52246-2 #### [facility] ([id number]) [address] [place] [address] 17923 Monocytes/100 WBC (Bld) 4.8 % Normal [facility] Comment on above: Performed By: #### C BCA, BMP, 98572-8, 95567-2, 71362-5 #### [facility] ([id number]) [address] [place] [address] 84262 Neutrophils/100 WBC (Bld) 75.6 % Normal [facility] Comment on above: Performed By: #### C BCA, BMP, 31436-9, 75310-0, 67819-5 #### [facility] ([id number]) [address] [place] [address] 45298 Platelet mean volume (Bld) [Entitic vol] 6.6 fL Low 7-12 [facility] Comment on above: Performed By: #### C BCA, BMP, 60514-5, 36420-1, 08571-2 #### [facility] ([id number]) [address] [place] [address] 17501 Platelets (Bld) [#/Vol] 333 10*3/uL Normal 150-450 [facility] Comment on above: Performed By: #### C BCA, BMP, 43301-5, 95657-2, 07705-8 #### [facility] ([id number]) [address] [place] [address] 24151 RBC COUNT 4.88 X10E12/L Normal 3.80-5.20 [facility] Comment on above: Performed By: #### Maryjo BCA, BMP, 71607-3, 26098-0, 67817-8 #### [facility] ([id number]) [address] [place] [address] 88480 RBC morphology finding Nom (Bld) REVIEWED Normal [facility] Comment on above: Performed By: #### C MARIETTA VERONIQUE, , 09133-2, 13456-7 #### [facility] ([id number]) [address] [place] [address] 12334 WBC (Bld) [#/Vol] 14.1 10*3/uL High 4.0-11.0 [facility] Comment on above: Performed By: #### C MARIETTA, VREONIQUE, , 94650-3, 26702-1 #### [facility] ([id number]) [address] [place] [id number] Fibrin D-dimer DDU (PPP) [Ma ss/Vol]on 02-28-2024 D DIMER <150 Normal <255 [facility] Comment on above: Result Comment: Results <255 ng/mL DDU: The presence of a VTE can safely be excluded with a negative D-Dimer result and Wells score. A negative result doesn't exclude the possibility of DIC. The test be repeated along with other diagnostic tests if the patient's symptoms persist or worsen. [email or web address] Performed By: #### C MARIETTA, VERONIQUE, , 72196-1, 65570-4 #### [facility] ([id number]) [address] [place] [address] MAGNESIUMon 02-28-2024 Magnesium [Mass/Vol] 1.8 mg/dL Normal 1.8-2.6 [facility] Comment on above: Performed By: #### C MARIETTA, VERONIQUE, , 74189-5, 26754-7 #### [facility] ([id number]) [address] [place] [address]81 Troponin I.cardiac High sens itivity method [Mass/Vol]on 02-28-2024 TROPONIN I, HIGH SENSITIVITY <2 Normal <16 [facility] Comment on above: Performed By: #### C VERONIQUE MCMANUS, 15842-8, 11763-3, 43790-4 #### [facility] ([id number]) [address] [facility], [place] [address] XR CHEST 2 VWSon 02-28-2024 XR CHEST 2 VWS XR CHEST 2 VWS XR CHEST 2 VWS History: . chest discomfort. Comparison: 03/30/2020 Impression: No acute pulmonary process. No pneumothorax or pleural effusion. Nonenlarged heart. Finalized by Ilir Amaya MD on 02/28/2024 9:49 PM Normal [facility] Chlamydia/GC DNA, Uron 08-15 Chlamydia Probe, Ur Negative Normal NEG [facility] Comment on above: Result Comment: CHLA MYDIA [...] nucleic acid target. Performed By: #### T RCBIJAN, UC #### [employer] [address] [place] [address] [id number] [employer]: Soren Gracia MD Gonorrhea Probe, Ur Negative Normal NEG [facility] Comment on above: Result Comment: NEIS SERIA [...] nucleic acid target. Performed By: #### T RCMOVlad, UC #### [employer] [address] [place] [id number] [employer]: Soren Gracia MD Trich Vag, Molecularon 08-13 Trich Vag, Molecular Negative Normal NEG [facility] Comment on above: Result Comment: [...] Performed By: #### T RCMOL, UCGP #### [address] [address] [employer]: Soren Gracia MD Source: .URINE Normal [facility] Comment on above: Performed By: #### T RCMOL, UCGP #### [address] [address] [employer]: Soren Gracia MD Acetaminophenon 07-06-2021 Acetaminophen [Mass/Vol] ug/mL Low 10-30 [facility] Comment on above: Performed By: #### C OVRB #### [facility] [address] [place] [address] [employer]: Garrett Perez MD Acetaminophen LevelOrdered B y: Kalyan Irizarry on 07-06-2021 Acetaminophen Level <5 Low 10 - 30 ug/mL [employer] Phone: Interpretation and review of laboratory results Abnormal [employer] Phone: [employer] Phone: CBC Auto DifferentialOrdered By: Kalyan Irizarry on 07-06-2021 Absolute Eos # 0.62 High [employer] Phone: Absolute Immature Granulocyte 0.07 [employer] Phone: Absolute Lymph # 3.20 [employer] Phone: Absolute Real # 0.89 [employer] Phone: Basophils (Bld) [#/Vol] 0.10 10*3/uL [employer] Phone: Basophils/100 WBC (Bld) 1 % 0 - 2 % M [employer] Phone: Differential Type NOT REPORTED [employer] [facility] [employer] Phone: Eosinophils/100 WBC (Bld) 5 % High 1 - 4 % [employer] [facility] [employer] Phone: Hematocrit (Bld) [Volume fraction] 43.4 % 36.3 - 47.1 % [employer] [facility] Phone: Hemoglobin.gastrointest inal spec 1 Ql (Stl) 14.6 g/dL 11.9 - 15.1 g/dL [employer] Phone: Immature granulocytes/100 WBC (Bld) 1 % High 0 [employer] Phone: Interpretation and review of laboratory results Abnormal [employer] Phone: Lymphocytes/100 WBC (Bld) 26 % 24 - 43 % [employer] Phone: MCH (RBC) [Entitic mass] 28.3 pg 25.2 - 33.5 pg [employer] Phone: MCHC (RBC) [Mass/Vol] 33.6 g/dL 28.4 - 34.8 g/dL [employer] Phone: MCV (RBC) [Entitic vol] 84.3 fL 82.6 - 102.9 fL [employer] Phone: Monocytes/100 WBC (Bld) 7 % 3 - 12 % M [employer] Phone: NRBC Automated 0.0 0.0 per 100 WBC [employer] [facility] [employer] Phone: Platelet distribution width (Bld) [Ratio] 12.3 % 11.8 - 14.4 % [employer] Phone: Platelet Estimate NOT REPORTED [employer] Phone: Platelet mean volume (Bld) [Entitic vol] 8.7 fL 8.1 - 13.5 fL [employer] Phone: Platelets (Bld) [#/Vol] 273 10*3/uL [employer] Phone: RBC (Bld) [#/Vol] 5.15 10*6/uL High 3.95 - 5.1 1 m/uL [employer] [facility] Phone: RBC (Bld) [#/Vol] NOT REPORTED [employer] [facility] [employer] Phone: Segmented neutrophils/100 WBC (Bld) 60 % 36 - 65 % [employer] Phone: Segs Absolute 7.61 [employer] Phone: WBC (Bld) [#/Vol] 12.5 10*3/uL High [employer] [facility] [employer] Phone: WBC (Bld) [#/Vol] NOT REPORTED [employer] Phone: [employer] Phone: CBC with Diffon 07-06-2021 Abs. Basophil 0.10 k/uL Normal 0.00-0.20 [facility] Comment on above: Performed By: #### D AU #### [facility] [address] [place] [address] [place] [address] [employer]: Garrett Perez MD Abs.Imm.Granulocyte 0.07 k/uL Normal 0.00-0.30 [facility] Comment on above: Performed By: #### D AU #### [facility] [address] [place] [address] [place] [address] [employer]: Garrett Perez MD Abs.Neutrophil (Seg) 7.61 k/uL Normal 1.50-8.10 [facility] Comment on above: Performed By: #### D AU #### [facility] [address] [place], [place] [id number] [employer]: Garrett Perez MD Basophils/100 WBC (Bld) 1 % Normal 0-2 M [facility] Comment on above: Performed By: #### D AU #### [facility] [address] [place] [address] [place] [place], [place] [id number] [employer]: Garrett Perez MD Eosinophils (Bld) [#/Vol] 0.62 10*3/uL High 0.00-0.44 [facility] Comment on above: Performed By: #### D AU #### [address] [place], [place] [id number] [employer]: Garrett Perez MD Eosinophils/100 WBC (Bld) 5 % High 1-4 [facility] Comment on above: Performed By: #### D AU #### [address] [place], [place] [id number] [employer]: Garrett Perez MD Erythrocyte distribution width (RBC) [Ratio] 12.3 % Normal 11.8-14.4 [facility] Comment on above: Performed By: #### D AU #### [address] [place], [place] [id number] [employer]: Garrett Perez MD Hematocrit (Bld) [Volume fraction] 43.4 % Normal 36.3-47.1 [facility] Comment on above: Performed By: #### D AU #### [address] [place], [place] [id number] [employer]: Garrett Perez MD Hemoglobin (Bld) [Mass/Vol] 14.6 g/dL Normal 11.9-15.1 [facility] Comment on above: Performed By: #### D AU #### [address] [place], [place] [id number] [employer]: Garrett Perez MD Immature granulocytes/100 WBC (Bld) 1 % High 0 [facility] Comment on above: Performed By: #### D AU #### [facility] [address] [place] [address] [employer]: Garertt Perez MD Lymphocytes (Bld) [#/Vol] 3.20 10*3/uL Normal 1.10-3.70 [facility] Comment on above: Performed By: #### D AU #### [facility] [address] [place] [address] [place] [address] [employer]: Garrett Perez MD Lymphocytes/100 WBC (Bld) 26 % Normal 24-43 [facility] Comment on above: Performed By: #### D AU #### [facility] [address] [place] [address] [place] [place], [place] [id number] [employer]: Garrett Perez MD MCH (RBC) [Entitic mass] 28.3 pg Normal 25.2-33.5 [facility] Comment on above: Performed By: #### D AU #### [address] [place], [place] [id number] [employer]: Garrett Perez MD MCHC (RBC) [Mass/Vol] 33.6 g/dL Normal 28.4-34.8 [facility] Comment on above: Performed By: #### D AU #### [facility] [address] [place] [address] [place] [place], [place] [id number] [employer]: Garrett Perez MD MCV (RBC) [Entitic vol] 84.3 fL Normal 82.6-102.9 M [facility] Comment on above: Performed By: #### D AU #### [address] [place] [address] [employer]: Garrett Perez MD Monocytes (Bld) [#/Vol] 0.89 10*3/uL Normal 0.10-1.20 [facility] Comment on above: Performed By: #### D AU #### [facility] [address] [place], [place] [id number] [employer]: Garrett Perez MD Monocytes/100 WBC (Bld) 7 % Normal 3-12 M [facility] Comment on above: Performed By: #### D AU #### [facility] [address] [place], [facility] [employer]: Garrett Perez MD Neutrophil (Seg) 60 % Normal 36-65 [facility] Comment on above: Performed By: #### D AU #### [facility] [address] [place], [facility] [employer]: Garrett Perez MD NRBC Automated 0.0 per 100 WBC Normal 0.0 [facility] Comment on above: Performed By: #### D AU #### [facility] [address] [place], [facility] [employer]: Garrett Perez MD Platelet mean volume (Bld) [Entitic vol] 8.7 fL Normal 8.1-13.5 [facility] Comment on above: Performed By: #### D AU #### [address] [place], [facility] [employer]: Garrett Perez MD Platelets (Bld) [#/Vol] 273 10*3/uL Normal 138-453 [facility] Comment on above: Performed By: #### D AU #### [facility] [address] [place], [facility] [employer]: Garrett Perez MD RBC (Bld) [#/Vol] 5.15 10*6/uL High 3.95-5.11 [facility] Comment on above: Performed By: #### D AU #### [facility] [address] [place], [facility] [employer]: Garrett Perez MD WBC (Bld) [#/Vol] 12.5 10*3/uL High 3.5-11.3 [facility] Comment on above: Performed By: #### D AU #### [facility] [address] [place] [address] [employer]: Garrett Perez MD Auto Diff Performed NOT REPORTED Normal [facility] Comment on above: Performed By: #### D AU #### [facility] [address] [place] [address] [employer]: Garrett Perez MD Platelet Estimate NOT REPORTED Normal [facility] Comment on above: Performed By: #### D AU #### [facility] [address] [place] [address] [place] [address] [employer]: Garrett Perez MD RBC morphology finding Nom (Bld) NOT REPORTED Normal [facility] Comment on above: Performed By: #### D AU #### [facility] [address] [place] [address] [place] [address] [employer]: Garrett Perez MD WBC Morphology NOT REPORTED Normal [facility] Comment on above: Performed By: #### D AU #### [facility] [address] [place] [address] [place] [address] [employer]: Garrett Perez MD COVID-19, RapidOrdered By: Maryjo Irizarry on 07-06-2021 SARS-CoV-2 (COVID-19) RNA MORENA+probe Ql (Unsp spec) Not detected Not Detected [facility] Work Phone: Comment on above: Rapid NAAT: [...] management decisions. Fact sheet for Healthcare Providers: https://www.fda.gov/media/730170/download Fact sheet for Patients: https://www.fda.gov/media/525862/download Methodology: Isothermal Nucleic Acid Amplification Specimen Description .NASOPHARYNGEAL SWAB [facility] Work Phone: [facility] [employer] Phone: Comp Metabolic Profon 2020 (cont.) Normal [facility] Comment on above: Result Comment: Aver age GFR for 20-29 years old: 116 mL/min/1.73sq m Chronic Kidney Disease: <60 mL/min/1.73sq m Kidney failure: <15 mL/min/1.73sq m eGFR calculated using average adult body mass. Additional eGFR calculator available at: http://www.[employer]/multiple_crcl_2012.htm Performed By: #### D AU #### [facility] [address] [place] [address] [place] [address] [employer]: Garrett Perez MD Albumin [Mass/Vol] 4.2 g/dL Normal 3.5-5.2 [facility] Comment on above: Performed By: #### D AU #### [facility] [address] [place] [address] [employer]: Garrett Perez MD Albumin/Glob Ratio 1.4 Normal 1.0-2.5 [facility] Comment on above: Performed By: #### D AU #### [facility] [address] [place] [address] [employer]: Garrett Perez MD Alkaline Phos 74 U/L Normal 35-104 [facility] Comment on above: Performed By: #### D AU #### [facility] [address] [place], [place] [id number] [employer]: Garrett Perez MD ALT [Catalytic activity/Vol] 31 U/L Normal 5-33 [facility] Comment on above: Performed By: #### D AU #### [facility] [address] [place], [place] [id number] [employer]: Garrett Perez MD Anion gap [Moles/Vol] 13 mmol/L Normal 9-17 [facility] Comment on above: Performed By: #### D AU #### [facility] [address] [place], [place] [id number] [employer]: Garrett Perez MD AST [Catalytic activity/Vol] 19 U/L Normal <32 [facility] Comment on above: Performed By: #### D AU #### [facility] [address] [place], [place] [id number] [employer]: Garrett Perez MD Bilirubin [Mass/Vol] 0.17 mg/dL Low 0.3-1.2 [facility] Comment on above: Performed By: #### D AU #### [facility] [address] [place], [place] [id number] [employer]: Garrett Perez MD BUN/CRE Ratio 7 Low 9-20 [facility] Comment on above: Performed By: #### D AU #### [facility] [address] [place], [place] [id number] [employer]: Garrett Perez MD Calcium [Mass/Vol] 9.2 mg/dL Normal 8.6-10.4 [facility] Comment on above: Performed By: #### D AU #### [facility] [address] [place], [place] [id number] [employer]: Garrett Perez MD Chloride [Moles/Vol] 104 mmol/L Normal 98-107 [facility] Comment on above: Performed By: #### D AU #### [facility] [address] [place], [place] [id number] [employer]: Garrett Perez MD CO2 [Moles/Vol] 20 mmol/L Normal 20-31 [facility] Comment on above: Performed By: #### D AU #### [facility] [address] [place] [address] [employer]: Garrett Perez MD Creatinine [Mass/Vol] 0.82 mg/dL Normal 0.50-0.90 [facility] Comment on above: Performed By: #### D AU #### [facility] [address] [place], [place] [id number] [employer]: Garrett Perez MD GFR, Amer >60 Normal >60 [facility] Comment on above: Performed By: #### D AU #### [facility] [address] [place], [place] 1927383 [employer]: Garrett Perez MD GFR,non Amer >60 Normal >60 [facility] Comment on above: Performed By: #### D AU #### [facility] [address] [place], [place] 1849983 [employer]: Garrett Perez MD Glucose [Mass/Vol] 100 mg/dL High 70-99 [facility] Comment on above: Performed By: #### D AU #### [facility] [address] [place] [address] [employer]: Garrett Perez MD Potassium [Moles/Vol] 4.0 mmol/L Normal 3.7-5.3 [facility] Comment on above: Performed By: #### D AU #### [facility] [address] [place], [place] [id number] [employer]: Garrett Perez MD Protein [Mass/Vol] 7.2 g/dL Normal 6.4-8.3 [facility] Comment on above: Performed By: #### D AU #### [facility] [address] [place] [address] [employer]: Garrett Perez MD Sodium [Moles/Vol] 137 mmol/L Normal 135-144 [facility] Comment on above: Performed By: #### D AU #### [facility] [address] [place] [address] [employer]: Garrett Perez MD Staging: Normal [facility] Comment on above: Result Comment: Stag e 1: Some kidney damage normal GFR Stage 2: Mild kidney damage GFR 60-89 Stage 3: Moderate kidney damage GFR 30-59 Stage 4: Severe kidney damage GFR 15-29 Stage 5: Severe kidney damage GFR <15 ESRD - chronic treatment by dialysis or transplant Performed By: #### D AU #### [facility] [address] [place] [address] [employer]: Garrett Perez MD Urea nitrogen [Mass/Vol] 6 mg/dL Normal 6-20 [facility] Comment on above: Performed By: #### D AU #### [facility] [address] [place] [address] [employer]: Garrett Perez MD Comprehensive Metabolic Pane lOrdered By: Kalyan Irizarry on 07-06-2021 Albumin [Mass/Vol] 4.2 g/dL 3.5 - 5.2 g/dL [facility] Phone: Albumin/Globulin [Mass ratio] 1.4 {ratio} [facility] [employer] Phone: ALP (Bld) [Catalytic activity/Vol] 74 U/L 35 - 104 U/L [employer] [facility] [employer] Phone: ALT [Catalytic activity/Vol] 31 U/L 5 - 33 U/L [facility] Phone: Anion gap [Moles/Vol] 13 mmol/L 9 - 17 mmol/L [employer] [facility] Phone: AST [Catalytic activity/Vol] 19 U/L <32 [employer] [facility] Phone: Bilirubin [Mass/Vol] 0.17 mg/dL Low 0.3 - 1 .2 mg/dL [employer] [facility] Phone: Calcium [Mass/Vol] 9.2 mg/dL 8.6 - 10. 4 mg/dL [employer] [facility] Phone: Chloride [Moles/Vol] 104 mmol/L 98 - 10 7 mmol/L [facility] Phone: CO2 [Moles/Vol] 20 mmol/L 20 - 31 mmol/L [employer] [facility] Phone: Creatinine [Mass/Vol] 0.82 mg/dL 0.50 - 0.90 mg/dL [employer] [facility] Phone: Free PSA/Total PSA [Mass fraction] 7.2 g/dL 6.4 - 8.3 g/dL [employer] [facility] [employer] Phone: GFR >60 >60 mL/min [employer] Phone: GFR Non- >60 >60 mL/min [facility] Phone: Glucose [Mass/Vol] 100 mg/dL High 70 - 99 mg/dL [employer] [facility] Phone: Potassium [Moles/Vol] 4.0 mmol/L 3.7 - 5.3 mmol/L [employer] [facility] Phone: Sodium [Moles/Vol] 137 mmol/L 135 - 144 mmol/L [employer] [facility] [employer] Phone: Urea nitrogen (BldV) [Mass/Vol] 6 mg/dL 6 - 20 mg/dL [employer] [facility] Phone: Urea nitrogen/Creatinine (Bld) [Mass ratio] 7 Low [employer] Phone: Drug Scr, Abuse, Uron 2020 Amphetamine(s),Ur Negative Normal NEG [facility] Comment on above: Performed By: #### D AU #### [facility] [address] [place], [place] [id number] [employer]: Garrett Perez MD Barbiturate(s),Ur Negative Normal [facility] Comment on above: Performed By: #### D AU #### [facility] [address] [place], [facility] [employer]: Garrett Perez MD Benzodiazepine(s) Negative Normal [facility] Comment on above: Performed By: #### D AU #### [facility] [address] [place] [id number] [employer]: Garrett Perez MD Buprenorphrine, Ur Negative Normal [facility] Comment on above: Performed By: #### D AU #### [facility] [address] [place], [facility] [employer]: Garrett Perez MD Cannabinoid(s),Ur Positive Abnormal [facility] Comment on above: Performed By: #### D AU #### [facility] [address] [place] [address] [place] [id number] [employer]: Garrett Perez MD Cocaine Metabolite Negative Normal [facility] Comment on above: Performed By: #### D AU #### [facility] [address] [place], [facility] [employer]: Garrett Perez MD Methadone Ql (U) Negative Normal [facility] Comment on above: Performed By: #### D AU #### [facility] [address] [place] [id number] [employer]: Garrett Perez MD Methamphetamine, Ur Negative Normal [facility] Comment on above: Performed By: #### D AU #### [facility] [address] [place] [address] [employer]: Garrett Perez MD Opiate(s), Ur Negative Normal NEG [facility] Comment on above: Performed By: #### D AU #### [facility] [address] [place] [address] [place] [place], [place] [id number] [employer]: Garrett Perez MD Oxycodone, Urine Negative Normal NEG [facility] Comment on above: Performed By: #### D AU #### [facility] [address] [place] [address] [place] [place], [place] [id number] [employer]: Garrett Perez MD Phencyclidine, Ur Negative Normal NEG [facility] Comment on above: Performed By: #### D AU #### [facility] [address] [place] [address] [place] [address] [employer]: Garrett Perez MD Propoxyphene,Urine Negative Normal NEG [facility] Comment on above: Performed By: #### D AU #### [facility] [address] [place] [address] [place] [address] [employer]: Garrett Perez MD Tricyclic antidepressants Screen Ql (U) Negative Normal NEG [facility] Comment on above: Result Comment: Drug screen results are to be used for medical purposes only. All positive results are unconfirmed. Testing for employment or legal uses should be sent to a reference laboratory for confirmation. Performed By: #### D AU #### [facility] [address] [place] [address] [place] [address] [employer]: Garrett Perez MD Interpretive Info NOT REPORTED Normal [facility] Comment on above: Performed By: #### D AU #### [facility] [address] [place] [address] [place] [address] [employer]: Garrett Perez MD MDMA, Urine NOT REPORTED Normal NEG [facility] Comment on above: Performed By: #### D AU #### [facility] [address] [place] [address] [place] [address] [employer]: Garrett Perez MD EthanolOrdered By: Kalyan iglesias on 07-06-2021 Ethanol [Mass/Vol] mg/dL <10 mg/dL [employer] [facility] [employer] Phone: Ethanol percent <0.010 <0.010 % [employer] [facility] [employer] Phone: [employer] [facility] [employer] Phone: Ethanol Alcoholon 07-06-2021 Ethanol [Mass/Vol] mg/dL Normal <10 [facility] Comment on above: Performed By: #### C OVRB #### [facility] [address] [place] [address] [employer]: Garrett Perez MD Ethanol percent <0.010 Normal <0.010 [facility] Comment on above: Performed By: #### C OVRB #### [facility] [address] [place] [address] [employer]: Garrett Perez MD HCG Qualitative, SerumOrdere d By: Kalyan Irizarry on 07-06-2021 hCG Qual Negative NEGATIVE [facility] Phone: Comment on above: Specimens with hCG l evels near the threshold of the test (25 mIU/mL) may give a negative or indeterminate result. In such cases, another test should be performed with a new specimen in 48-72 hours. If early is suspected clinically in this setting, correlation with quantitative serum b-hCG level is suggested. [employer] has confirmed the use of plasma for this test. This has not been cleared or approved by the U.S. Food and Drug Administration. The FDA has determined that such clearance is not necessary. [employer] Phone: HCG Screen, Bloodon 07-06-20 21 HCG Screen, Blood Negative Normal NEG [facility] Comment on above: Result Comment: Spec imens with hCG levels near the threshold of the test (25 mIU/mL) may give a negative or indeterminate result. In such cases, another test should be performed with a new specimen in 48-72 hours. If early is suspected clinically in this setting, correlation with quantitative serum b-hCG level is suggested. [facility] the use of plasma for this test. This has not been cleared or approved by the U.S. Food and Drug Administration. The FDA has determined that such clearance is not necessary. Performed By: #### D AU #### [facility] [address] [place] [address] [employer]: Garrett Perez MD Laboratory - Chemistry and C hemistry - challengeOrdered By: Kalyan Irizarry on 07-06-2021 GFR/1.73 sq M.predicted MDRD (S/P/Bld) [Vol rate/Area] [facility] Phone: Comment on above: Average GFR for 20-2 9 years old: 116 mL/min/1.73sq m Chronic Kidney Disease: <60 mL/min/1.73sq m Kidney failure: <15 mL/min/1.73sq m eGFR calculated using average adult body mass. Additional eGFR calculator available at: http://www.[employer]/multiple_crcl_2012.htm Stage 1: Some kidney damage normal GFR Stage 2: Mild kidney damage GFR 60-89 Stage 3: Moderate kidney damage GFR 30-59 Stage 4: Severe kidney damage GFR 15-29 Stage 5: Severe kidney damage GFR <15 ESRD - chronic treatment by dialysis or transplant No Panel InformationOrdered By: Kalyan Irizarry on 07-06-2021 Interpretation and review of laboratory results Abnormal [facility] Phone: [facility] Phone: [id number] 07-06-2021 SARS-CoV-2 (COVID-19) RNA MORNEA+probe Ql (Unsp spec) Not detected Normal NOTDET [facility] Comment on above: Result Comment: Rapid NAAT: [...] management decisions. Fact sheet for Healthcare Providers: https://www.fda.gov/media/696659/download Fact sheet for Patients: https://www.fda.gov/media/837003/download Methodology: Isothermal Nucleic Acid Amplification Performed By: #### C OVRB #### [address] [place] [address] [employer]: Garrett Perez MD Salicylateon 07-06-2021 Salicylate <1 Low 3-10 [facility] Comment on above: Performed By: #### D AU #### [address] [place] [address] [employer]: Garrett Perez MD SalicylateOrdered By: Gil Irizarry on 07-06-2021 Salicylate Lvl <1 Low 3 - 10 mg/dL [facility] Work Phone: Urinalysis w/ Microon 2020 ----- Normal [facility] Comment on above: Performed By: #### C OVRB #### [address] [place] [address] [employer]: Garrett Perez MD Bacteria 1+ Abnormal NONE [facility] Comment on above: Performed By: #### C OVRB #### [address] [place] [address] [employer]: Garrett Perez MD Bilirubin, SemiQt,Ur Negative Normal NEG [facility] Comment on above: Performed By: #### C OVRB #### [address] [place] [id number] [employer]: Garrett Perez MD Blood, Urine Negative Normal NEG [facility] Comment on above: Performed By: #### C OVRB #### [facility] [address] [place], [place] [id number] [employer]: Garrett Perez MD Clarity (U) CLEAR Normal CLEAR [facility] Comment on above: Performed By: #### C OVRB #### [facility] [address] [place], [place] [id number] [employer]: Garrett Perez MD Color (U) YELLOW Normal YEL [facility] Comment on above: Performed By: #### C OVRB #### [facility] [address] [place], [place] [id number] [employer]: Garrett Perez MD Epithelial cells LM Ql (Urine sed) 5 TO 10 Normal 0-25 [facility] Comment on above: Performed By: #### C OVRB #### [facility] [address] [place], [place] [id number] [employer]: Garrett Perez MD Glucose Ql (U) Negative Normal NEG [facility] Comment on above: Performed By: #### C OVRB #### [facility] [address] [place], [place] [id number] [employer]: Garrett Perez MD Ketones Ql (U) Negative Normal NEG [facility] Comment on above: Performed By: #### C OVRB #### [facility] [address] [place], [place] [id number] [employer]: Garrett Perez MD Leukocyte esterase Test strip Ql (U) Negative Normal NEG [facility] Comment on above: Performed By: #### C OVRB #### [facility] [address] [place], [place] [id number] [employer]: Garrett Perez MD Mucus Strands 1+ Abnormal NONE [facility] Comment on above: Performed By: #### C OVRB #### [facility] [address] [place], [place] [id number] [employer]: Garrett Perez MD Nitrite,Ur Negative Normal NEG [facility] Comment on above: Performed By: #### C OVRB #### [facility] [address] [place], [place] [id number] [employer]: Garrett Perez MD PH,Ur 6.5 Normal 5.0-9.0 [facility] Comment on above: Performed By: #### C OVRB #### [facility] [address] [place], [place] [id number] [employer]: Garrett Perez MD Protein Ql (U) Negative Normal NEG [facility] Comment on above: Performed By: #### C OVRB #### [facility] [address] [place], [facility] [employer]: Garrett Perez MD Spec. [place],Ur 1.020 Normal 1.010-1.020 [facility] Comment on above: Performed By: #### C OVRB #### [facility] [address] [place], [place] [address]83 [employer]: Garrett Perez MD Urine RBC's 0 TO 2 Normal 0-2 [facility] Comment on above: Performed By: #### C OVRB #### [facility] [address] [place], [place] 2648[address] [employer]: Garrett Perez MD Urine WBC's 0 TO 2 Normal 0-5 [facility] Comment on above: Performed By: #### C OVRB #### [facility] [address] [place], [place] [id number] [employer]: Garrett Perez MD Urobilinogen,Ur Normal Normal NORM [facility] Comment on above: Performed By: #### C OVRB #### [facility] [address] [place] [address] [employer]: Garrett Perez MD Amorphous sediment LM Ql (Urine sed) NOT REPORTED Normal NONE [facility] Comment on above: Performed By: #### C OVRB #### [facility] [address] [place], [place] 483[address]83 [employer]: Garrett Perez MD Casts NOT REPORTED Normal [facility] Comment on above: Performed By: #### C OVRB #### [facility] [address] [place], [place] 9494383 [employer]: Garrett Perez MD Comment NOT REPORTED Normal [facility] Comment on above: Performed By: #### C OVRB #### [facility] [address] [place], [place] 3636683 [employer]: Garrett Perez MD Crystals LM Nom (Urine sed) NOT REPORTED Normal [facility] Comment on above: Performed By: #### C OVRB #### [facility] [address] [place], [place] [address]100[address] [employer]: Garrett Perez MD Epithelial, Renal NOT REPORTED Normal 0 [facility] Comment on above: Performed By: #### C OVRB #### [facility] [address] [place], [place] 9101[address] [employer]: Garrett Perez MD Other Observations NOT REPORTED Normal NREQ [facility] Comment on above: Performed By: #### C OVRB #### [facility] [address] [place], [place] 0966683 [employer]: Garrett Perez MD Trichomonas NOT REPORTED Normal [facility] Comment on above: Performed By: #### C OVRB #### [facility] [address] [place], [place] [address]83 [employer]: Garrett Perez MD Yeast NOT REPORTED Normal [facility] Comment on above: Performed By: #### C OVRB #### [facility] [address] [place], [place] [address] [employer]: Garrett Perez MD Urinalysis with microscopicO rdered By: Kalyan Irizarry on 07-06-2021 - [employer] Work Phone: Amorphous, UA NOT REPORTED None [employer] Work Phone: Bacteria, UA 1+ Abnormal None [employer] Work Phone: Bilirubin Urine Negative NEGATIVE [employer] Phone: Casts UA NOT REPORTED /LPF [employer] Work Phone: Color, UA YELLOW YELLOW [employer] Work Phone: Crystals, UA NOT REPORTED None /HPF [employer] Work Phone: Epithelial Cells UA 5 TO 10 [employer] Work Phone: Glucose, Ur Negative NEGATIVE [employer] [facility] Phone: Interpretation and review of laboratory results Abnormal [employer] Work Phone: Ketones Ql (U) Negative NEGATIVE [employer] [facility] Phone: Leukocyte esterase Test strip Ql (U) Negative NEGATIVE [employer] [facility] Phone: Mucus, UA 1+ Abnormal None [employer] [facility] Phone: Nitrite, Urine Negative NEGATIVE [employer] Phone: Other Observations UA NOT REPORTED NOT REQ. [facility] Phone: pH, UA 6.5 [employer] Work Phone: Protein, UA Negative NEGATIVE [employer] [facility] Phone: RBC, UA 0 TO 2 [employer] Work Phone: Renal Epithelial, UA NOT REPORTED 0 /HPF [facility] [employer] Work Phone: Specific [place], UA 1.020 [facility] Work Phone: Trichomonas, UA NOT REPORTED None [facility] Work Phone: Turbidity UA CLEAR CLEAR [facility] Work Phone: Urinalysis Comments NOT REPORTED [facility] Work Phone: Urine Hgb Negative NEGATIVE [facility] Work Phone: Urobilinogen, Urine Normal Normal [facility] Work Phone: WBC, UA 0 TO 2 [facility] Work Phone: Yeast, UA NOT REPORTED None [facility] Work Phone: [facility] Work Phone: Urine Drug ScreenOrdered By: Kalyan Irizarry on 07-06-2021 Amphetamine Screen, Ur Negative NEGATIVE [facility] Work Phone: Barbiturate Screen, Ur Negative NEGATIVE [facility] Work Phone: Benzodiazepine Screen, Urine Negative NEGATIVE [facility] Work Phone: Buprenorphine Urine Negative NEGATIVE [facility] Work Phone: Cannabinoid Scrn, Ur Positive Abnormal NEGATIVE [facility] Work Phone: Cocaine Metabolite, Urine Negative NEGATIVE [facility] Work Phone: Interpretation and review of laboratory results Abnormal [facility] Work Phone: MDMA, Urine NOT REPORTED NEGATIVE [facility] Work Phone: Methadone Screen, Urine Negative NEGATIVE [facility] Work Phone: Methamphetamine, Urine Negative NEGATIVE [facility] Work Phone: Opiates, Urine Negative NEGATIVE [facility] Work Phone: Oxycodone Screen, Ur Negative NEGATIVE [facility] Work Phone: Phencyclidine, Urine Negative NEGATIVE [facility] Work Phone: Propoxyphene, Urine Negative NEGATIVE [employer] [facility] Phone: Test Information NOT REPORTED [facility] Phone: Tricyclic Antidepressants, Urine Negative NEGATIVE [employer] [facility] Phone: Comment on above: Drug screen results are to be used for medical purposes only. All positive results are unconfirmed. Testing for employment or legal uses should be sent to a reference laboratory for confirmation. [employer] [facility] Phone: Acetaminophenon 05-15-2021 Acetaminophen [Mass/Vol] ug/mL Low 10-30 [facility] Comment on above: Performed By: #### D AU #### [facility] [address] [place] [address] [employer]: Garrett Perez MD Acetaminophen levelOrdered B y: Blanco Adamesain on 05-15-2021 Acetaminophen Level <5 Low 10 - 30 ug/mL [facility] Phone: Interpretation and review of laboratory results Abnormal [employer] [facility] Phone: [employer] [facility] Phone: CBC auto differentialOrdered By: Blanco Adamesain on 05-15-2021 Absolute Eos # 0.18 [facility] Phone: Absolute Immature Granulocyte 0.06 [facility] Phone: Absolute Lymph # 2.41 [facility] Phone: Absolute Real # 0.83 [facility] Phone: Basophils (Bld) [#/Vol] 0.07 10*3/uL [facility] Phone: Basophils/100 WBC (Bld) 1 % 0 - 2 % M [employer] Phone: Differential Type NOT REPORTED [facility] Phone: Eosinophils/100 WBC (Bld) 1 % 1 - 4 % [facility] Phone: Hematocrit (Bld) [Volume fraction] 45.1 % 36.3 - 47.1 % [employer] [facility] Phone: Hemoglobin.gastrointest inal spec 1 Ql (Stl) 15.0 g/dL 11.9 - 15.1 g/dL [employer] [facility] Phone: Immature granulocytes/100 WBC (Bld) 1 % High 0 [employer] [facility] Phone: Interpretation and review of laboratory results Abnormal [employer] [facility] Phone: Lymphocytes/100 WBC (Bld) 18 % Low 24 - 43 % [employer] [facility] Phone: MCH (RBC) [Entitic mass] 28.4 pg 25.2 - 33.5 pg [employer] [facility] Phone: MCHC (RBC) [Mass/Vol] 33.3 g/dL 28.4 - 34.8 g/dL [employer] [facility] Phone: MCV (RBC) [Entitic vol] 85.4 fL 82.6 - 102.9 fL [facility] Phone: Monocytes/100 WBC (Bld) 6 % 3 - 12 % M [employer] Phone: NRBC Automated 0.0 0.0 per 100 WBC [facility] Phone: Platelet distribution width (Bld) [Ratio] 13.0 % 11.8 - 14.4 % [employer] [facility] Phone: Platelet Estimate NOT REPORTED [employer] [facility] Phone: Platelet mean volume (Bld) [Entitic vol] 8.3 fL 8.1 - 13.5 fL [employer] [facility] Phone: Platelets (Bld) [#/Vol] 301 10*3/uL [employer] [facility] Phone: RBC (Bld) [#/Vol] 5.28 10*6/uL High 3.95 - 5.1 1 m/uL [employer] [facility] Phone: RBC (Bld) [#/Vol] NOT REPORTED [employer] [facility] Phone: Segmented neutrophils/100 WBC (Bld) 73 % High 36 - 65 % [employer] [facility] Phone: Segs Absolute 9.71 High [facility] Phone: WBC (Bld) [#/Vol] 13.3 10*3/uL High [employer] [facility] Phone: WBC (Bld) [#/Vol] NOT REPORTED [facility] Phone: [employer] [facility] [employer] Phone: CBC with Diffon 05-15-2021 Abs. Basophil 0.07 k/uL Normal 0.00-0.20 [facility] Comment on above: Performed By: #### C CORTNEY, MICHAEL, CP, HCG #### [facility] [address] [place] [address] [address] [place], [place] [address] [employer]: Garrett Perez MD Abs.Imm.Granulocyte 0.06 k/uL Normal 0.00-0.30 [facility] Comment on above: Performed By: #### C MICHAEL BARR, CP, HCG #### [facility] [address] [place], [facility] [employer]: Garrett Perez MD Abs.Neutrophil (Seg) 9.71 k/uL High 1.50-8.10 [facility] Comment on above: Performed By: #### C MICHAEL BARR, CP, HCG #### [facility] [address] [place] [address] [employer]: Garrett Perez MD Basophils/100 WBC (Bld) 1 % Normal 0-2 M [facility] Comment on above: Performed By: #### C DP, MICHAEL, CP, HCG #### [facility] [address] [place], [place] [address] [employer]: Garrett Perez MD Eosinophils (Bld) [#/Vol] 0.18 10*3/uL Normal 0.00-0.44 [facility] Comment on above: Performed By: #### C DP, SALI, CP, HCG #### [address] [place], [place] [address] [employer]: Garrett Perez MD Eosinophils/100 WBC (Bld) 1 % Normal 1-4 [facility] Comment on above: Performed By: #### C DP, SALI, CP, HCG #### [address] [place] [address] [employer]: Garrett Perez MD Erythrocyte distribution width (RBC) [Ratio] 13.0 % Normal 11.8-14.4 [facility] Comment on above: Performed By: #### C DP, SALI, CP, HCG #### [address] [place], [place] [address] [employer]: Garrett Perez MD Hematocrit (Bld) [Volume fraction] 45.1 % Normal 36.3-47.1 [facility] Comment on above: Performed By: #### C DP, SALI, CP, HCG #### [address] [place], [place] [address] [employer]: Garrett Perez MD Hemoglobin (Bld) [Mass/Vol] 15.0 g/dL Normal 11.9-15.1 [facility] Comment on above: Performed By: #### C DP, SALI, CP, HCG #### [address] [place], [facility] [employer]: Garrett Perez MD Immature granulocytes/100 WBC (Bld) 1 % High 0 [facility] Comment on above: Performed By: #### C DP, SALI, CP, HCG #### [facility] [address] [place], [place] [id number] [employer]: Garrett Perez MD Lymphocytes (Bld) [#/Vol] 2.41 10*3/uL Normal 1.10-3.70 [facility] Comment on above: Performed By: #### C DP, SALI, CP, HCG #### [facility] [address] [place], [place] [address] [employer]: Garrett Perez MD Lymphocytes/100 WBC (Bld) 18 % Low 24-43 [facility] Comment on above: Performed By: #### C DP, SALI, CP, HCG #### [address] [place], [facility] ( [employer]: Garrett Perez MD MCH (RBC) [Entitic mass] 28.4 pg Normal 25.2-33.5 [facility] Comment on above: Performed By: #### C DP, SALI, CP, HCG #### [address] [place], [place] [address] [employer]: Garrett Perez MD MCHC (RBC) [Mass/Vol] 33.3 g/dL Normal 28.4-34.8 [facility] Comment on above: Performed By: #### C DP, SALI, CP, HCG #### [address] [place], [place] [address] [employer]: Garrett Perez MD MCV (RBC) [Entitic vol] 85.4 fL Normal 82.6-102.9 M [facility] Comment on above: Performed By: #### C DP, SALI, CP, HCG #### [address] [place] [address] ([address] [employer]: Garrett Perez MD Monocytes (Bld) [#/Vol] 0.83 10*3/uL Normal 0.10-1.20 [facility] Comment on above: Performed By: #### C DP, SALI, CP, HCG #### [facility] [address] [place] [address] [employer]: Garrett Perez MD Monocytes/100 WBC (Bld) 6 % Normal 3-12 M [facility] Comment on above: Performed By: #### C DP, SALI, CP, HCG #### [facility] [address] [place] [address] [employer]: Garrett Perez MD Neutrophil (Seg) 73 % High 36-65 [facility] Comment on above: Performed By: #### C DP, SALI, CP, HCG #### [address] [place], [place] [address] [employer]: Garrett Perez MD NRBC Automated 0.0 per 100 WBC Normal 0.0 [facility] Comment on above: Performed By: #### C DP, SALI, CP, HCG #### [address] [place], [facility] [employer]: Garrett Perez MD Platelet mean volume (Bld) [Entitic vol] 8.3 fL Normal 8.1-13.5 [facility] Comment on above: Performed By: #### C DP, SALI, CP, HCG #### [address] [place] [address] [employer]: Garrett Perez MD Platelets (Bld) [#/Vol] 301 10*3/uL Normal 138-453 [facility] Comment on above: Performed By: #### C DP, SALI, CP, HCG #### [address] [place] [address] [employer]: Garrett Perez MD RBC (Bld) [#/Vol] 5.28 10*6/uL High 3.95-5.11 [facility] Comment on above: Performed By: #### C DP, SALI, CP, HCG #### [address] [place] [address] [employer]: Garrett Perez MD WBC (Bld) [#/Vol] 13.3 10*3/uL High 3.5-11.3 [facility] Comment on above: Performed By: #### C DP, SALI, CP, HCG #### [address] [place] [address] [employer]: Garrett Perez MD Auto Diff Performed NOT REPORTED Normal [facility] Comment on above: Performed By: #### C DP, SALI, CP, HCG #### [address] [place] [id number] [employer]: Garrett Perez MD Platelet Estimate NOT REPORTED Normal [facility] Comment on above: Performed By: #### C DP, SALI, CP, HCG #### [address] [place], [facility] [employer]: Garrett Perez MD RBC morphology finding Nom (Bld) NOT REPORTED Normal [facility] Comment on above: Performed By: #### C DP, SALI, CP, HCG #### [address] [place] [address] [employer]: Garrett Perez MD WBC Morphology NOT REPORTED Normal [facility] Comment on above: Performed By: #### C DP, SALI, CP, HCG #### [address] [place], [facility] [employer]: Garrett Perez MD COVID-19, RapidOrdered By: Nicolle Montalvo on 05-15-2021 SARS-CoV-2 (COVID-19) RNA MORENA+probe Ql (Unsp spec) Not detected Not Detected [facility] Work Phone: Comment on above: Rapid NAAT: [...] management decisions. Fact sheet for Healthcare Providers: https://www.fda.gov/media/162748/download Fact sheet for Patients: https://www.fda.gov/media/267821/download Methodology: Isothermal Nucleic Acid Amplification Specimen Description .NASOPHARYNGEAL SWAB [facility] Work Phone: [facility] [employer] Phone: Comp Metabolic Profon 2020 (cont.) Normal [facility] Comment on above: Result Comment: Aver age GFR for 20-29 years old: 116 mL/min/1.73sq m Chronic Kidney Disease: <60 mL/min/1.73sq m Kidney failure: <15 mL/min/1.73sq m eGFR calculated using average adult body mass. Additional eGFR calculator available at: http://www.[employer]/multiple_crcl_2012.htm Performed By: #### C MICHAEL BARR, CP, HCG #### [facility] [address] [place] [address] [place] [address] [employer]: Garrett Perez MD Albumin [Mass/Vol] 4.4 g/dL Normal 3.5-5.2 [facility] Comment on above: Performed By: #### C MICHAEL BARR CP, HCG #### [facility] [address] [place] [address] [employer]: Garrett Perez MD Albumin/Glob Ratio 1.3 Normal 1.0-2.5 [facility] Comment on above: Performed By: #### C MICHAEL BARR, CP, HCG #### [facility] [address] [place], [place] 57[address]183 [employer]: Garrett Perez MD Alkaline Phos 82 U/L Normal 35-104 [facility] Comment on above: Performed By: #### C DP, SALI, CP, HCG #### [facility] [address] [place], [place] 4968683 [employer]: Garrett Perez MD ALT [Catalytic activity/Vol] 40 U/L High 5-33 [facility] Comment on above: Performed By: #### C DP, SALI, CP, HCG #### [facility] [address] [place], [place] 2539[address] [employer]: Garrett Perez MD Anion gap [Moles/Vol] 13 mmol/L Normal 9-17 [facility] Comment on above: Performed By: #### C DP, SALI, CP, HCG #### [facility] [address] [place], [place] [address]83 [employer]: Garrett Perez MD AST [Catalytic activity/Vol] 26 U/L Normal <32 [facility] Comment on above: Performed By: #### C DP, SALI, CP, HCG #### [facility] [address] [place], [place] [address]83 [employer]: Garrett Perez MD Bilirubin [Mass/Vol] 0.39 mg/dL Normal 0.3-1.2 [facility] Comment on above: Performed By: #### C DP, SALI, CP, HCG #### [facility] [address] [place], [place] [address]83 [employer]: Garrett Perez MD BUN/CRE Ratio 12 Normal 9-20 [facility] Comment on above: Performed By: #### C DP, SALI, CP, HCG #### [facility] [address] [place], [place] [address]83 [employer]: Garrett Perez MD Calcium [Mass/Vol] 9.9 mg/dL Normal 8.6-10.4 [facility] Comment on above: Performed By: #### C DP, SALI, CP, HCG #### [facility] [facility] [address] [place], [place] [id number] [employer]: Garrett Perez MD Chloride [Moles/Vol] 99 mmol/L Normal 98-107 [facility] Comment on above: Performed By: #### C DP, SALI, CP, HCG #### [facility] [address] [place], [place] [id number] [employer]: Garrett Perez MD CO2 [Moles/Vol] 25 mmol/L Normal 20-31 [facility] Comment on above: Performed By: #### C DP, SALI, CP, HCG #### [facility] [address] [place], [place] [id number] [employer]: Garrett Perez MD Creatinine [Mass/Vol] 0.81 mg/dL Normal 0.50-0.90 [facility] Comment on above: Performed By: #### C DP, SALI, CP, HCG #### [facility] [address] [place], [place] [id number] [employer]: Garrett Perez MD GFR, Amer >60 Normal >60 [facility] Comment on above: Performed By: #### C DP, SALI, CP, HCG #### [facility] [address] [place], [place] [id number] [employer]: Garrett Perez MD GFR,non Amer >60 Normal >60 [facility] Comment on above: Performed By: #### C DP, SALI, CP, HCG #### [facility] [address] [place], [place] [id number] [employer]: Garrett Perez MD Glucose [Mass/Vol] 86 mg/dL Normal 70-99 [facility] Comment on above: Performed By: #### C DP, SALI, CP, HCG #### [facility] [address] [place], [place] [id number] [employer]: Garrett Perez MD Potassium [Moles/Vol] 3.7 mmol/L Normal 3.7-5.3 [facility] Comment on above: Performed By: #### C DP, SALI, CP, HCG #### [facility] [address] [place] [address] [address] [place], [place] [id number] [employer]: Garrett Perez MD Protein [Mass/Vol] 7.8 g/dL Normal 6.4-8.3 [facility] Comment on above: Performed By: #### C DP, SALI, CP, HCG #### [address] [place], [place] 1778083 [employer]: Garrett Perez MD Sodium [Moles/Vol] 137 mmol/L Normal 135-144 [facility] Comment on above: Performed By: #### C DP, SALI, CP, HCG #### [address] [place], [place] [id number] [employer]: Garrett Perez MD Staging: Normal [facility] Comment on above: Result Comment: Stag e 1: Some kidney damage normal GFR Stage 2: Mild kidney damage GFR 60-89 Stage 3: Moderate kidney damage GFR 30-59 Stage 4: Severe kidney damage GFR 15-29 Stage 5: Severe kidney damage GFR <15 ESRD - chronic treatment by dialysis or transplant Performed By: #### C DP, SALI, CP, HCG #### [facility] [address] [place] [address] [address] [place], [place] [id number] [employer]: Garrett Perez MD Urea nitrogen [Mass/Vol] 10 mg/dL Normal 6-20 [facility] Comment on above: Performed By: #### C DP, SALI, CP, HCG #### [facility] [address] [place] [address] [place] [address] [employer]: Garrett Perez MD Comprehensive Metabolic Pane lOrdered By: Blanco Andradein on 05-15-2021 Albumin [Mass/Vol] 4.4 g/dL 3.5 - 5.2 g/dL [employer] [facility] [employer] Phone: Albumin/Globulin [Mass ratio] 1.3 {ratio} [facility] Phone: ALP (Bld) [Catalytic activity/Vol] 82 U/L 35 - 104 U/L [facility] Phone: ALT [Catalytic activity/Vol] 40 U/L High 5 - 33 U/L [facility] Phone: Anion gap [Moles/Vol] 13 mmol/L 9 - 17 mmol/L [facility] Phone: AST [Catalytic activity/Vol] 26 U/L <32 [facility] Phone: Bilirubin [Mass/Vol] 0.39 mg/dL 0.3 - 1 .2 mg/dL [facility] Phone: Calcium [Mass/Vol] 9.9 mg/dL 8.6 - 10. 4 mg/dL [facility] Phone: Chloride [Moles/Vol] 99 mmol/L 98 - 10 7 mmol/L [facility] Phone: CO2 [Moles/Vol] 25 mmol/L 20 - 31 mmol/L [facility] Phone: Creatinine [Mass/Vol] 0.81 mg/dL 0.50 - 0.90 mg/dL [facility] Phone: Free PSA/Total PSA [Mass fraction] 7.8 g/dL 6.4 - 8.3 g/dL [facility] Phone: GFR >60 >60 mL/min [employer] Phone: GFR Non- >60 >60 mL/min [facility] Phone: Glucose [Mass/Vol] 86 mg/dL 70 - 99 mg/dL [facility] [employer] Phone: Potassium [Moles/Vol] 3.7 mmol/L 3.7 - 5.3 mmol/L [facility] Phone: Sodium [Moles/Vol] 137 mmol/L 135 - 144 mmol/L [facility] Phone: Urea nitrogen (BldV) [Mass/Vol] 10 mg/dL 6 - 20 mg/dL [facility] Phone: Urea nitrogen/Creatinine (Bld) [Mass ratio] 12 [employer] [facility] Phone: Drug Scr, Abuse, Uron 2020 Amphetamine(s),Ur Negative Normal NEG [facility] Comment on above: Performed By: #### C OVRB #### [facility] [address] [place] [address] [employer]: Garrett Perez MD Barbiturate(s),Ur Negative Normal NEG [facility] Comment on above: Performed By: #### C OVRB #### [facility] [address] [place] [address] [employer]: Garrett Perez MD Benzodiazepine(s) Negative Normal [facility] Comment on above: Performed By: #### C OVRB #### [facility] [address] [place] [address] [employer]: Garrett Perez MD Buprenorphrine, Ur Negative Normal NEG [facility] Comment on above: Performed By: #### C OVRB #### [facility] [address] [place] [address] [employer]: Garrett Perez MD Cannabinoid(s),Ur Positive Abnormal NEG [facility] Comment on above: Performed By: #### C OVRB #### [facility] [address] [place] [address] [employer]: Garrett Perez MD Cocaine Metabolite Negative Normal [facility] Comment on above: Performed By: #### C OVRB #### [facility] [address] [place], [place] 7[address]83 [employer]: Garrett Perez MD Methadone Ql (U) Negative Normal [facility] Comment on above: Performed By: #### C OVRB #### [facility] [address] [place], [place] [id number] [employer]: Garrett Perez MD Methamphetamine, Ur Negative Normal [facility] Comment on above: Performed By: #### C OVRB #### [facility] [address] [place], [place] [id number] [employer]: Garrett Perez MD Opiate(s), Ur Negative Normal [facility] Comment on above: Performed By: #### C OVRB #### [facility] [address] [place], [place] 8307383 [employer]: Garrett Perez MD Oxycodone, Urine Negative Normal [facility] Comment on above: Performed By: #### C OVRB #### [facility] [address] [place], [place] [id number] [employer]: Garrett Perez MD Phencyclidine, Ur Negative Normal [facility] Comment on above: Performed By: #### C OVRB #### [facility] [address] [place], [place] [id number] [employer]: Garrett Perez MD Propoxyphene,Urine Negative Normal [facility] Comment on above: Performed By: #### C OVRB #### [facility] [address] [place], [place] [address] [employer]: Garrett Perez MD Tricyclic antidepressants Screen Ql (U) Negative Normal [facility] Comment on above: Result Comment: Drug screen results are to be used for medical purposes only. All positive results are unconfirmed. Testing for employment or legal uses should be sent to a reference laboratory for confirmation. Performed By: #### C OVRB #### [address] [place] [address] [employer]: Garrett Perez MD Interpretive Info NOT REPORTED Normal [facility] Comment on above: Performed By: #### C OVRB #### [address] [place], [facility] [employer]: Garrett Perez MD MDMA, Urine NOT REPORTED Normal NEG [facility] Comment on above: Performed By: #### C OVRB #### [address] [place], [facility] [employer]: Garrett Perez MD EthanolOrdered By: Blanco banks on 05-15-2021 Ethanol [Mass/Vol] mg/dL <10 mg/dL [facility] Phone: Ethanol percent <0.010 <0.010 % [facility] [employer] Phone: [facility] [employer] Phone: Ethanol Alcoholon 05-15-2021 Ethanol [Mass/Vol] mg/dL Normal <10 [facility] Comment on above: Performed By: #### D AU #### [address] [place], [facility] [employer]: Garrett Perez MD Ethanol percent <0.010 Normal <0.010 [facility] Comment on above: Performed By: #### D AU #### [address] [place] [id number] [employer]: Garrett Perez MD HCG Qualitative, SerumOrdere d By: Blanco Montalvo on 05-15-2021 hCG Qual Negative NEGATIVE [facility] [employer] Phone: Comment on above: Specimens with hCG l evels near the threshold of the test (25 mIU/mL) may give a negative or indeterminate result. In such cases, another test should be performed with a new specimen in 48-72 hours. If early is suspected clinically in this setting, correlation with quantitative serum b-hCG level is suggested. [employer] has confirmed the use of plasma for this test. This has not been cleared or approved by the U.S. Food and Drug Administration. The FDA has determined that such clearance is not necessary. [employer] [facility] Phone: HCG Screen, Bloodon 05-15-20 21 HCG Screen, Blood Negative Normal NEG [facility] Comment on above: Result Comment: Spec imens with hCG levels near the threshold of the test (25 mIU/mL) may give a negative or indeterminate result. In such cases, another test should be performed with a new specimen in 48-72 hours. If early is suspected clinically in this setting, correlation with quantitative serum b-hCG level is suggested. [employer] has confirmed the use of plasma for this test. This has not been cleared or approved by the U.S. Food and Drug Administration. The FDA has determined that such clearance is not necessary. Performed By: #### C DP, SALI, CP, HCG #### [facility] [address] [place] [address] [place] [address] [employer]: Garrett Perez MD Laboratory - Chemistry and C hemistry - challengeOrdered By: Blanco Montalvo on 05-15-2021 GFR/1.73 sq M.predicted MDRD (S/P/Bld) [Vol rate/Area] [facility] Phone: Comment on above: Average GFR for 20-2 9 years old: 116 mL/min/1.73sq m Chronic Kidney Disease: <60 mL/min/1.73sq m Kidney failure: <15 mL/min/1.73sq m eGFR calculated using average adult body mass. Additional eGFR calculator available at: http://www.[employer].eleni/multiple_crcl_2012.htm Stage 1: Some kidney damage normal GFR Stage 2: Mild kidney damage GFR 60-89 Stage 3: Moderate kidney damage GFR 30-59 Stage 4: Severe kidney damage GFR 15-29 Stage 5: Severe kidney damage GFR <15 ESRD - chronic treatment by dialysis or transplant Microscopic UrinalysisOrdere d By: Blanco Montalvo on 05-15-2021 - [employer] Work Phone: Amorphous, UA NOT REPORTED None [employer] Work Phone: Bacteria, UA TRACE Abnormal None [employer] [facility] [employer] Phone: Casts UA NOT REPORTED /LPF [facility] Phone: Crystals, UA NOT REPORTED None /HPF [facility] Phone: Epithelial Cells UA 2 TO 5 [employer] [facility] [employer] Phone: Interpretation and review of laboratory results Abnormal [employer] Phone: Mucus, UA TRACE Abnormal None [employer] [facility] [employer] Phone: Other Observations UA NOT REPORTED NOT REQ. [facility] [employer] Work Phone: RBC, UA 0 TO 2 [employer] Work Phone: Renal Epithelial, UA NOT REPORTED 0 /HPF [facility] [employer] Work Phone: Trichomonas, UA NOT REPORTED None [employer] [facility] [employer] Phone: WBC, UA 0 TO 2 [employer] [facility] Phone: Yeast, UA NOT REPORTED None [employer] [facility] [employer] Phone: [facility] Phone: No Panel InformationOrdered By: Blanco Montalvo on 05-15-2021 Interpretation and review of laboratory results Abnormal [employer] [facility] Phone: [employer] [facility] [employer] Phone: [id number] 05-15-2021 SARS-CoV-2 (COVID-19) RNA MORENA+probe Ql (Unsp spec) Not detected Normal [facility] Comment on above: Result Comment: Rapid [...] management decisions. Fact sheet for Healthcare Providers: https://www.fda.gov/media/393994/download Fact sheet for Patients: https://www.fda.gov/media/136326/download Methodology: Isothermal Nucleic Acid Amplification Performed By: #### C OVRB #### [address] [place] [address] [employer]: Garrett Perez MD Salicylateon 3 Salicylate <1 Low 3-10 [facility] Comment on above: Performed By: #### C DP, SALI, CP, HCG #### [address] [place] [address] [employer]: Garrett Perez MD SalicylateOrdered By: Blanco hwang on 05-15-2021 Salicylate Lvl <1 Low 3 - 10 mg/dL [facility] Work Phone: UA w/Reflex Cultureon 2020 Bilirubin, SemiQt,Ur Negative Normal NEG [facility] Comment on above: Performed By: #### C OVRB #### [address] [place] [address] [employer]: Garrett Perez MD Blood, Urine Negative Normal NEG [facility] Comment on above: Performed By: #### C OVRB #### [address] [place] [address] [employer]: Garrett Perez MD Clarity (U) CLEAR Normal CLEAR [facility] Comment on above: Performed By: #### C OVRB #### [facility] [address] [place] [address] [employer]: Garrett Perez MD Color (U) YELLOW Normal YEL [facility] Comment on above: Performed By: #### C OVRB #### [facility] [address] [place] [address] [employer]: Garrett Perez MD Glucose Ql (U) Negative Normal NEG [facility] Comment on above: Performed By: #### C OVRB #### [facility] [address] [place], [place] [id number] [employer]: Garrett Perez MD Ketones Ql (U) Negative Normal NEG [facility] Comment on above: Performed By: #### C OVRB #### [facility] [address] [place], [place] 118[address]83 [employer]: Garrett Perez MD Leukocyte esterase Test strip Ql (U) Negative Normal NEG [facility] Comment on above: Performed By: #### C OVRB #### [address] [place], [place] [address]483 [employer]: Garrett Perez MD Nitrite,Ur Negative Normal NEG [facility] Comment on above: Performed By: #### C OVRB #### [facility] [address] [place], [place] [address]83 [employer]: Garrett Perez MD PH,Ur 8.5 Normal 5.0-9.0 [facility] Comment on above: Performed By: #### C OVRB #### [facility] [address] [place] [address] [employer]: Garrett Perez MD Protein Ql (U) Negative Normal [facility] Comment on above: Performed By: #### C OVRB #### [facility] [address] [place], [place] 6746[address] [employer]: Garrett Perez MD Spec. [place],Ur 1.015 Normal 1.010-1.020 [facility] Comment on above: Performed By: #### C OVRB #### [facility] [address] [place], [place] 9448483 [employer]: Garrett Perez MD Urobilinogen,Ur Normal Normal NORM [facility] Comment on above: Performed By: #### C OVRB #### [facility] [address] [place], [place] 6045683 [employer]: Garrett Perez MD Comment NOT REPORTED Normal [facility] Comment on above: Performed By: #### C OVRB #### [facility] [address] [place], [place] 97[address]83 [employer]: Garrett Perez MD Urinalysis Reflex to Culture Ordered By: Blanco Montalvo on 05-15-2021 Bilirubin Urine Negative NEGATIVE [facility] [employer] Work Phone: Color, UA YELLOW YELLOW [facility] [employer] Work Phone: Glucose, Ur Negative NEGATIVE [facility] [employer] Work Phone: Ketones Ql (U) Negative NEGATIVE [facility] [employer] Work Phone: Leukocyte esterase Test strip Ql (U) Negative NEGATIVE [facility] [employer] Work Phone: Nitrite, Urine Negative NEGATIVE [facility] [employer] Work Phone: pH, UA 8.5 [facility] [employer] Work Phone: Protein, UA Negative NEGATIVE [facility] [employer] Work Phone: Specific [place], UA 1.015 [facility] [employer] Work Phone: Turbidity UA CLEAR CLEAR [facility] [employer] Work Phone: Urinalysis Comments NOT REPORTED [facility] [employer] Work Phone: Urine Hgb Negative NEGATIVE [facility] Work Phone: Urobilinogen, Urine Normal Normal [facility] Work Phone: [facility] Work Phone: Urinalysis,Microon 1 ----- Normal [facility] Comment on above: Performed By: #### C OVRB #### [facility] [address] [place] [address] [place] [place], [place] 1861283 [employer]: Garrett Perez MD Bacteria TRACE Abnormal [facility] Comment on above: Performed By: #### C OVRB #### [facility] [address] [place] [address] [place], [place] 3265[address] [employer]: Garrett Perez MD Epithelial cells LM Ql (Urine sed) 2 TO 5 Normal 0-25 [facility] Comment on above: Performed By: #### C OVRB #### [facility] [address] [place] [address] [place] [place], [place] [id number] [employer]: Garrett Perez MD Mucus Strands TRACE Abnormal [facility] Comment on above: Performed By: #### C OVRB #### [address] [place] [address] [employer]: Garrett Perez MD Urine RBC's 0 TO 2 Normal 0-2 [facility] Comment on above: Performed By: #### C OVRB #### [facility] [address] [place] [address] [place] [address] [employer]: Garrett Perez MD Urine WBC's 0 TO 2 Normal 0-5 [facility] Comment on above: Performed By: #### C OVRB #### [facility] [address] [place] [address] [place] [place], [place] 612[address]83 [employer]: Garrett Perez MD Amorphous sediment LM Ql (Urine sed) NOT REPORTED Normal [facility] Comment on above: Performed By: #### C OVRB #### [facility] [address] [place], [place] 543[address]83 [employer]: Garrett Perez MD Casts NOT REPORTED Normal [facility] Comment on above: Performed By: #### C OVRB #### [facility] [address] [place], [place] 6647483 [employer]: Garrett Perez MD Crystals LM Nom (Urine sed) NOT REPORTED Normal [facility] Comment on above: Performed By: #### C OVRB #### [facility] [address] [place], [place] 085[address]83 [employer]: Garrett Perez MD Epithelial, Renal NOT REPORTED Normal 0 [facility] Comment on above: Performed By: #### C OVRB #### [facility] [address] [place], [place] 599[address]83 [employer]: Garrett Perez MD Other Observations NOT REPORTED Normal NREQ [facility] Comment on above: Performed By: #### C OVRB #### [facility] [address] [place], [place] 6946283 [employer]: Garrett Perez MD Trichomonas NOT REPORTED Normal [facility] Comment on above: Performed By: #### C OVRB #### [facility] [address] [place], [place] 776[address]83 [employer]: Garrett Perez MD Yeast NOT REPORTED Normal NONE [facility] Comment on above: Performed By: #### C OVRB #### [facility] [address] [place] [address] [employer]: Garrett Perez MD Urine Drug ScreenOrdered By: Blanco Montalvo on 05-15-2021 Amphetamine Screen, Ur Negative NEGATIVE [facility] Work Phone: Barbiturate Screen, Ur Negative NEGATIVE [facility] Work Phone: Benzodiazepine Screen, Urine Negative NEGATIVE [facility] Work Phone: Buprenorphine Urine Negative NEGATIVE [facility] Work Phone: Cannabinoid Scrn, Ur Positive Abnormal NEGATIVE [facility] Work Phone: Cocaine Metabolite, Urine Negative NEGATIVE [facility] [employer] Work Phone: Interpretation and review of laboratory results Abnormal [facility] [employer] Work Phone: MDMA, Urine NOT REPORTED NEGATIVE [facility] [employer] Work Phone: Methadone Screen, Urine Negative NEGATIVE [facility] Work Phone: Methamphetamine, Urine Negative NEGATIVE [facility] [employer] Work Phone: Opiates, Urine Negative NEGATIVE [facility] [employer] Work Phone: Oxycodone Screen, Ur Negative NEGATIVE [facility] [employer] Work Phone: Phencyclidine, Urine Negative NEGATIVE [facility] [employer] Work Phone: Propoxyphene, Urine Negative NEGATIVE [facility] [employer] Work Phone: Test Information NOT REPORTED [facility] [employer] Work Phone: Tricyclic Antidepressants, Urine Negative NEGATIVE [facility] [employer] Work Phone: Comment on above: Drug screen results are to be used for medical purposes only. All positive results are unconfirmed. Testing for employment or legal uses should be sent to a reference laboratory for confirmation. [employer] Work Phone: Laboratory - Microbiology an d Antimicrobial susceptibilityOrdered By: Denny Lomeli on 04-23-2021 SARS-CoV-2 (COVID-19) RNA MORENA+probe Ql (Resp) Not detected (Not Detected ) [facility] Work Phone: Comment on above: Note: [...] of in vitro diagnostic tests for detection [id number] virus and/or diagnosis of COVID-19 infectionunder section [...] RNA MORENA+probe Ql (Unsp spec) Performed [facility] Work Phone: Vitamin Don 04-14-2021 Vitamin D 14.7 ng/mL Low 30.0-100.0 [facility] Comment on above: Result Comment: (<20 ng/mL) Deficiency This assay accurately quantifies the sum of vitamin D3, 25-Hydroxy and vitamin D2, 25-Hyroxy. Performed By: #### V ITD #### [facility] [address] [place] [address] CBC With Platelet No Differe ntialon 04-11-2021 Erythrocyte distribution width (RBC) [Ratio] 13.6 % Normal 11.5-14.5 [facility] Comment on above: Performed By: #### C BCND #### [facility] [address] [place] [address] Hematocrit (Bld) [Volume fraction] 43.5 % Normal 37.0-47.0 [facility] Comment on above: Performed By: #### C BCND #### [facility] [address] [place] [address] Hemoglobin (Bld) [Mass/Vol] 14.6 g/dL Normal 12.0-16.0 [facility] Comment on above: Performed By: #### C BCND #### [facility] [address] [place] [address] MCH (RBC) [Entitic mass] 28.6 pg Normal 27.0-31.3 [facility] Comment on above: Performed By: #### C BCND #### [facility] [address] [place] [address] MCHC 33.5 % Normal 33.0-37.0 [facility] Comment on above: Performed By: #### C BCND #### [facility] [address] [place] [address] MCV (RBC) [Entitic vol] 85.4 fL Normal 82.0-100.0 [facility] Comment on above: Performed By: #### C BCND #### [facility] [address] [place] [address] Platelets (Bld) [#/Vol] 284 10*3/uL Normal 130-400 [facility] Comment on above: Performed By: #### C BCND #### [facility] [address] [place] [address] RBC (Bld) [#/Vol] 5.10 10*6/uL Normal 4.20-5.40 [facility] Comment on above: Performed By: #### C BCND #### [facility] [address] [place] [address] WBC (Bld) [#/Vol] 11.1 10*3/uL Critically high 4.8-10.8 [facility] Comment on above: Performed By: #### C BCND #### [facility] [address] [place] [address] Folateon 04-11-2021 Folate 15.3 ng/mL Normal 7.3-26.1 [facility] Comment on above: Result Comment: As o f 16, the methodology has changed. Results from this methodology should not be compared with results from previous methodology. Performed By: #### F OLAT #### [facility] [address] [place] [address] Lipid Panelon 04-11-2021 Cholesterol [Mass/Vol] 127 mg/dL Normal 0-199 [facility] Comment on above: Result Comment: ATP III Cholesterol classification is Desirable. Performed By: #### L IPID #### [facility] [address] [place] [address] Cholesterol in HDL [Mass/Vol] 32 mg/dL Low 40-59 [facility] Comment on above: Result Comment: ATP [...] CHD Performed By: #### L IPID #### [facility] [address] [place] [address] Cholesterol in LDL [Mass/Vol] 75 mg/dL Normal 0-129 [facility] Comment on above: Result Comment: ATP III LDL Classification is Optimal. Performed By: #### L IPID #### [facility] [address] [place] [address] Triglyceride [Mass/Vol] 100 mg/dL Normal 0-150 [facility] Comment on above: Result Comment: ATP III Triglycerides Classification is Normal. Performed By: #### L IPID #### [facility] [address] [place] [address] TSH w/out Reflexon TSH w/out Reflex 1.020 uIU/mL Normal 0.440-3.86 [facility] Comment on above: Performed By: #### T SH #### [facility] [address] [place] [address] Vitamin B12on 04-11-2021 Cobalamin (Vitamin B12) [Mass/Vol] 1050 pg/mL Normal 232-1245 [facility] Comment on above: Performed By: #### B 12 #### [facility] [address] [place] [id number] EKG 12 LeadOrdered By: Freddie Hussein on 04-10-2021 Atrial Rate 75 BPM [facility] Phone: P [place] 24 degrees [facility] Phone: P-R Interval 140 ms [facility] Phone: Q-T Interval 384 ms [facility] Phone: QRS Duration 90 ms [facility] Phone: QTc Calculation (Bazett) 414 ms [facility] Phone: R [place] 29 degrees [facility] Phone: T [place] 20 degrees [facility] Phone: Ventricular Rate 70 BPM [facility] Phone: Normal sinus rhythm with sinus arrhythmia Possible Anterior infarct , age undetermined Abnormal ECG No previous ECGs available Confirmed by FORREST MENDIOLA ([id number]) on 04/10/2021 12:40:27 AM [facility] Phone: [place], M[facility] Incoming E kg Results From [facility] [place] - 04/10/2021 12:40 AM EDT Normal sinus rhythm with sinus arrhythmia Possible Anterior infarct , age undetermined Abnormal ECG No previous ECGs available Confirmed by FORREST MENDIOLA ([id number]) on 04/10/2021 12:40:27 AM [facility] Phone: [facility] Phone: Acetaminophenon 04-09-2021 Acetaminophen [Mass/Vol] ug/mL Low 10-30 [facility] Comment on above: Performed By: #### A LCB, ACET #### [facility] [address] [place] [address] [employer]: Garrett Perez MD Acetaminophen LevelOrdered B y: Jm Hussein on 04-09-2021 Acetaminophen Level <5 Low 10 - 30 ug/mL [facility] Phone: Interpretation and review of laboratory results Abnormal [facility] Phone: [facility] Phone: CBC Auto DifferentialOrdered By: Jm Hussein on 04-09-2021 Absolute Eos # 0.07 [facility] Phone: Absolute Immature Granulocyte 0.03 [facility] Phone: Absolute Lymph # 2.20 [facility] Phone: Absolute Real # 0.76 [facility] Phone: Basophils (Bld) [#/Vol] 0.05 10*3/uL [facility] Phone: Basophils/100 WBC (Bld) 0 % 0 - 2 % M [employer] Phone: Differential Type NOT REPORTED [facility] Phone: Eosinophils/100 WBC (Bld) 1 % 1 - 4 % [facility] Phone: Hematocrit (Bld) [Volume fraction] 45.2 % 36.3 - 47.1 % [facility] Phone: Hemoglobin.gastrointest inal spec 1 Ql (Stl) 15.0 g/dL 11.9 - 15.1 g/dL [facility] Phone: Immature granulocytes/100 WBC (Bld) 0 % 0 [facility] Phone: Interpretation and review of laboratory results Abnormal [facility] Phone: Lymphocytes/100 WBC (Bld) 18 % Low 24 - 43 % [facility] Phone: MCH (RBC) [Entitic mass] 28.6 pg 25.2 - 33.5 pg [facility] Phone: MCHC (RBC) [Mass/Vol] 33.2 g/dL 28.4 - 34.8 g/dL [facility] Phone: MCV (RBC) [Entitic vol] 86.3 fL 82.6 - 102.9 fL [facility] Phone: Monocytes/100 WBC (Bld) 6 % 3 - 12 % M [employer] Phone: NRBC Automated 0.0 0.0 per 100 WBC [facility] Phone: Platelet distribution width (Bld) [Ratio] 13.0 % 11.8 - 14.4 % [facility] Phone: Platelet Estimate NOT REPORTED [facility] Phone: Platelet mean volume (Bld) [Entitic vol] 9.1 fL 8.1 - 13.5 fL [facility] Phone: Platelets (Bld) [#/Vol] 296 10*3/uL [facility] Phone: RBC (Bld) [#/Vol] 5.24 10*6/uL High 3.95 - 5.1 1 m/uL [facility] Phone: RBC (Bld) [#/Vol] NOT REPORTED [facility] Phone: Segmented neutrophils/100 WBC (Bld) 75 % High 36 - 65 % [facility] Phone: Segs Absolute 9.07 High [facility] Phone: WBC (Bld) [#/Vol] 12.2 10*3/uL High [facility] Phone: WBC (Bld) [#/Vol] NOT REPORTED [facility] Phone: [facility] Phone: CBC with Diffon 04-09-2021 Abs. Basophil 0.05 k/uL Normal 0.00-0.20 [facility] Comment on above: Performed By: #### C OVRB #### [facility] [address] [place], [facility] [employer]: Garrett Perez MD Abs.Imm.Granulocyte 0.03 k/uL Normal 0.00-0.30 [facility] Comment on above: Performed By: #### C OVRB #### [facility] [address] [place], [place] [address] [employer]: Garrett Perez MD Abs.Neutrophil (Seg) 9.07 k/uL High 1.50-8.10 [facility] Comment on above: Performed By: #### C OVRB #### [address] [place], [facility] [employer]: Garrett Perez MD Basophils/100 WBC (Bld) 0 % Normal 0-2 [facility] Comment on above: Performed By: #### C OVRB #### [address] [place], [place] [address] [employer]: Garrett Perez MD Eosinophils (Bld) [#/Vol] 0.07 10*3/uL Normal 0.00-0.44 [facility] Comment on above: Performed By: #### C OVRB #### [facility] [address] [place], [place] [address] [employer]: Garrett Perez MD Eosinophils/100 WBC (Bld) 1 % Normal 1-4 [facility] Comment on above: Performed By: #### C OVRB #### [address] [place], [facility] [employer]: Garrett Perez MD Erythrocyte distribution width (RBC) [Ratio] 13.0 % Normal 11.8-14.4 [facility] Comment on above: Performed By: #### C OVRB #### [facility] [address] [place], [place] [id number] [employer]: Garrett Perez MD Hematocrit (Bld) [Volume fraction] 45.2 % Normal 36.3-47.1 [facility] Comment on above: Performed By: #### C OVRB #### [facility] [address] [place] [facility] [employer]: Garrett Perez MD Hemoglobin (Bld) [Mass/Vol] 15.0 g/dL Normal 11.9-15.1 [facility] Comment on above: Performed By: #### C OVRB #### [address] [place] [facility] [employer]: Garrett Perez MD Immature granulocytes/100 WBC (Bld) 0 % Normal 0 [facility] Comment on above: Performed By: #### C OVRB #### [address] [place] [facility] [employer]: Garrett Perez MD Lymphocytes (Bld) [#/Vol] 2.20 10*3/uL Normal 1.10-3.70 [facility] Comment on above: Performed By: #### C OVRB #### [facility] [address] [place] [address] [address] [place] [facility] [employer]: Garrett Perez MD Lymphocytes/100 WBC (Bld) 18 % Low 24-43 [facility] Comment on above: Performed By: #### C OVRB #### [facility] [address] [place] [address] [address] [place] [facility] [employer]: Garrett Perez MD MCH (RBC) [Entitic mass] 28.6 pg Normal 25.2-33.5 [facility] Comment on above: Performed By: #### C OVRB #### [facility] [address] [place] [address] [address] [place] [facility] [employer]: Garrett Perez MD MCHC (RBC) [Mass/Vol] 33.2 g/dL Normal 28.4-34.8 [facility] Comment on above: Performed By: #### C OVRB #### [address] [place], [place] [id number] [employer]: Garrett Perez MD MCV (RBC) [Entitic vol] 86.3 fL Normal 82.6-102.9 [facility] Comment on above: Performed By: #### C OVRB #### [address] [place], [place] [id number] [employer]: Garrett Perez MD Monocytes (Bld) [#/Vol] 0.76 10*3/uL Normal 0.10-1.20 [facility] Comment on above: Performed By: #### C OVRB #### [address] [place], [place] [address]883 [employer]: Garrett Perez MD Monocytes/100 WBC (Bld) 6 % Normal 3-12 [facility] Comment on above: Performed By: #### C OVRB #### [address] [place], [place] 6509383 [employer]: Garrett Perez MD Neutrophil (Seg) 75 % High 36-65 [facility] Comment on above: Performed By: #### C OVRB #### [facility] [address] [place] [address] [address] [place], [place] 3709683 [employer]: Garrett Perez MD NRBC Automated 0.0 per 100 WBC Normal 0.0 [facility] Comment on above: Performed By: #### C OVRB #### [address] [place], [place] [address] [employer]: Garrett Perez MD Platelet mean volume (Bld) [Entitic vol] 9.1 fL Normal 8.1-13.5 [facility] Comment on above: Performed By: #### C OVRB #### [facility] [address] [place], [place] [address]83 [employer]: Garrett Perez MD Platelets (Bld) [#/Vol] 296 10*3/uL Normal 138-453 [facility] Comment on above: Performed By: #### C OVRB #### [facility] [address] [place], [place] [address] [employer]: Garrett Perez MD RBC (Bld) [#/Vol] 5.24 10*6/uL High 3.95-5.11 [facility] Comment on above: Performed By: #### C OVRB #### [facility] [address] [place] [address] [employer]: Garrett Perez MD WBC (Bld) [#/Vol] 12.2 10*3/uL High 3.5-11.3 [facility] Comment on above: Performed By: #### C OVRB #### [facility] [address] [place], [place] [address] [employer]: Garrett Perez MD Auto Diff Performed NOT REPORTED Normal [facility] Comment on above: Performed By: #### C OVRB #### [facility] [address] [place], [place] [address]783 [employer]: Garrett Perez MD Platelet Estimate NOT REPORTED Normal [facility] Comment on above: Performed By: #### C OVRB #### [facility] [address] [place], [place] [address]83 [employer]: Garrett Perez MD RBC morphology finding Nom (Bld) NOT REPORTED Normal [facility] Comment on above: Performed By: #### C OVRB #### [facility] [address] [place], [place] [address]44[address] [employer]: Garrett Perez MD WBC Morphology NOT REPORTED Normal [facility] Comment on above: Performed By: #### C OVRB #### [facility] [address] [place] [address] [employer]: Garrtet Perez MD COVID-19, RapidOrdered By: Cody Hussein on 04-09-2021 SARS-CoV-2 (COVID-19) RNA MORNEA+probe Ql (Unsp spec) Not detected Not Detected [facility] Phone: Comment on above: Rapid NAAT: The [...] management decisions. Fact sheet for Healthcare Providers: https://www.fda.gov/media/920048/download Fact sheet for Patients: https://www.fda.gov/media/400362/download Methodology: Isothermal Nucleic Acid Amplification Specimen Description .NASOPHARYNGEAL SWAB [facility] Phone: [facility] [employer] Phone: Comp Metabolic Profon 2020 (cont.) Normal [facility] Comment on above: Result Comment: Aver age GFR for 20-29 years old: 116 mL/min/1.73sq m Chronic Kidney Disease: <60 mL/min/1.73sq m Kidney failure: <15 mL/min/1.73sq m eGFR calculated using average adult body mass. Additional eGFR calculator available at: http://www.[employer].eleni/multiple_crcl_2012.htm Performed By: #### D AU #### [facility] [address] [place], [place] [id number] [employer]: Garrett Perez MD Albumin [Mass/Vol] 4.5 g/dL Normal 3.5-5.2 [facility] Comment on above: Performed By: #### D AU #### [facility] [address] [place], [place] [address] [employer]: Garrett Perez MD Albumin/Glob Ratio 1.6 Normal 1.0-2.5 [facility] Comment on above: Performed By: #### D AU #### [facility] [address] [place], [place] [address]83 [employer]: Garrett Perez MD Alkaline Phos 72 U/L Normal 35-104 [facility] Comment on above: Performed By: #### D AU #### [facility] [address] [place], [place] [address]83 [employer]: Garrett Perez MD ALT [Catalytic activity/Vol] 71 U/L High 5-33 [facility] Comment on above: Performed By: #### D AU #### [facility] [address] [place] [address] [address] [place], [place] [address]69[address] [employer]: Garrett Perez MD Anion gap [Moles/Vol] 10 mmol/L Normal 9-17 [facility] Comment on above: Performed By: #### D AU #### [facility] [address] [place], [place] [address]83 [employer]: Garrett Perez MD AST [Catalytic activity/Vol] 35 U/L High <32 [facility] Comment on above: Performed By: #### D AU #### [facility] [address] [place], [place] 318[address]83 [employer]: Garrett Perez MD Bilirubin [Mass/Vol] 0.34 mg/dL Normal 0.3-1.2 [facility] Comment on above: Performed By: #### D AU #### [facility] [address] [place], [place] [address] [employer]: Garrett Perez MD BUN/CRE Ratio 14 Normal 9-20 [facility] Comment on above: Performed By: #### D AU #### [facility] [address] [place], [place] 6813783 [employer]: Garrett Perez MD Calcium [Mass/Vol] 10.3 mg/dL Normal 8.6-10.4 [facility] Comment on above: Performed By: #### D AU #### [facility] [address] [place], [place] [address]83 [employer]: Garrett Perez MD Chloride [Moles/Vol] 103 mmol/L Normal 98-107 [facility] Comment on above: Performed By: #### D AU #### [facility] [address] [place], [place] [address]503[address] [employer]: Garrett Perez MD CO2 [Moles/Vol] 23 mmol/L Normal 20-31 [facility] Comment on above: Performed By: #### D AU #### [facility] [address] [place], [place] 3334683 [employer]: Garrett Perez MD Creatinine [Mass/Vol] 0.65 mg/dL Normal 0.50-0.90 [facility] Comment on above: Performed By: #### D AU #### [facility] [address] [place], [place] [address]83 [employer]: Garrett Perez MD GFR, Amer >60 Normal >60 [facility] Comment on above: Performed By: #### D AU #### [facility] [address] [place], [place] [address]83 [employer]: Garrett Perez MD GFR,non Amer >60 Normal >60 [facility] Comment on above: Performed By: #### D AU #### [facility] [address] [place], [place] 3588383 [employer]: Garrett Perez MD Glucose [Mass/Vol] 84 mg/dL Normal 70-99 [facility] Comment on above: Performed By: #### D AU #### [facility] [address] [place], [place] 4358[address] [employer]: Garrett Perez MD Potassium [Moles/Vol] 4.2 mmol/L Normal 3.7-5.3 [facility] Comment on above: Performed By: #### D AU #### [facility] [address] [place] [address] [address] [place], [place] 324[address]83 [employer]: Garrett Perez MD Protein [Mass/Vol] 7.4 g/dL Normal 6.4-8.3 [facility] Comment on above: Performed By: #### D AU #### [address] [place], [place] [address] [employer]: Garrett Perez MD Sodium [Moles/Vol] 136 mmol/L Normal 135-144 [facility] Comment on above: Performed By: #### D AU #### [address] [place], [place] 2164183 [employer]: Garrett Perez MD Staging: Normal [facility] Comment on above: Result Comment: Stag e 1: Some kidney damage normal GFR Stage 2: Mild kidney damage GFR 60-89 Stage 3: Moderate kidney damage GFR 30-59 Stage 4: Severe kidney damage GFR 15-29 Stage 5: Severe kidney damage GFR <15 ESRD - chronic treatment by dialysis or transplant Performed By: #### D AU #### [facility] [address] [place] [address] [address] [place], [place] 4215283 [employer]: Garrett Perez MD Urea nitrogen [Mass/Vol] 9 mg/dL Normal 6-20 [facility] Comment on above: Performed By: #### D AU #### [facility] [address] [place] [address] [place] [address] [employer]: Garrett Perez MD Comprehensive Metabolic Pane lOrdered By: Jm Hussein on 04-09-2021 Albumin [Mass/Vol] 4.5 g/dL 3.5 - 5.2 g/dL [facility] Phone: Albumin/Globulin [Mass ratio] 1.6 {ratio} [facility] Phone: ALP (Bld) [Catalytic activity/Vol] 72 U/L 35 - 104 U/L [facility] Phone: ALT [Catalytic activity/Vol] 71 U/L High 5 - 33 U/L [facility] Phone: Anion gap [Moles/Vol] 10 mmol/L 9 - 17 mmol/L [facility] Phone: AST [Catalytic activity/Vol] 35 U/L High <32 [facility] Phone: Bilirubin [Mass/Vol] 0.34 mg/dL 0.3 - 1 .2 mg/dL [facility] Phone: Calcium [Mass/Vol] 10.3 mg/dL 8.6 - 10. 4 mg/dL [facility] Phone: Chloride [Moles/Vol] 103 mmol/L 98 - 10 7 mmol/L [facility] Phone: CO2 [Moles/Vol] 23 mmol/L 20 - 31 mmol/L [facility] Phone: Creatinine [Mass/Vol] 0.65 mg/dL 0.50 - 0.90 mg/dL [facility] Phone: Free PSA/Total PSA [Mass fraction] 7.4 g/dL 6.4 - 8.3 g/dL [facility] Phone: GFR >60 >60 mL/min [employer] Phone: GFR Non- >60 >60 mL/min [facility] Phone: Glucose [Mass/Vol] 84 mg/dL 70 - 99 mg/dL [facility] Phone: Potassium [Moles/Vol] 4.2 mmol/L 3.7 - 5.3 mmol/L [facility] Phone: Sodium [Moles/Vol] 136 mmol/L 135 - 144 mmol/L [facility] Phone: Urea nitrogen (BldV) [Mass/Vol] 9 mg/dL 6 - 20 mg/dL [facility] Phone: Urea nitrogen/Creatinine (Bld) [Mass ratio] 14 [facility] Phone: Drug Scr, Abuse, Uron 2020 Amphetamine(s),Ur Negative Normal NEG [facility] Comment on above: Performed By: #### C OVRB #### [facility] [address] [place] [address] [place] [address] [employer]: Garrett Perez MD Barbiturate(s),Ur Negative Normal [facility] Comment on above: Performed By: #### C OVRB #### [address] [place] [address] [employer]: Garrett Perez MD Benzodiazepine(s) Negative Normal NEG [facility] Comment on above: Performed By: #### C OVRB #### [facility] [address] [place], [place] [id number] [employer]: Garrett Perez MD Buprenorphrine, Ur Negative Normal NEG [facility] Comment on above: Performed By: #### C OVRB #### [facility] [address] [place] [address] [employer]: Garrett Perez MD Cannabinoid(s),Ur Positive Abnormal NEG [facility] Comment on above: Performed By: #### C OVRB #### [facility] [address] [place] [address] [employer]: Garrett Perez MD Cocaine Metabolite Negative Normal [facility] Comment on above: Performed By: #### C OVRB #### [facility] [address] [place] [address] [employer]: Garrett Perez MD Methadone Ql (U) Negative Normal NEG [facility] Comment on above: Performed By: #### C OVRB #### [facility] [address] [place], [place] 2117683 [employer]: Garrett Perez MD Methamphetamine, Ur Negative Normal NEG [facility] Comment on above: Performed By: #### C OVRB #### [facility] [address] [place], [place] 6364283 [employer]: Garrett Perez MD Opiate(s), Ur Negative Normal [facility] Comment on above: Performed By: #### C OVRB #### [facility] [address] [place] [address] [employer]: Garrett Perez MD Oxycodone, Urine Negative Normal [facility] Comment on above: Performed By: #### C OVRB #### [facility] [address] [place], [place] [address]28[address] [employer]: Garrett Perez MD Phencyclidine, Ur Negative Normal NEG [facility] Comment on above: Performed By: #### C OVRB #### [facility] [address] [place], [place] 6925483 [employer]: Garrett Perez MD Propoxyphene,Urine Negative Normal NEG [facility] Comment on above: Performed By: #### C OVRB #### [facility] [address] [place], [place] [address] [employer]: Garrett Perez MD Tricyclic antidepressants Screen Ql (U) Negative Normal NEG [facility] Comment on above: Result Comment: Drug screen results are to be used for medical purposes only. All positive results are unconfirmed. Testing for employment or legal uses should be sent to a reference laboratory for confirmation. Performed By: #### C OVRB #### [facility] [address] [place] [address] [place] [address] [employer]: Garrett Perez MD Interpretive Info NOT REPORTED Normal [facility] Comment on above: Performed By: #### C OVRB #### [facility] [address] [place] [address] [place] [address] [employer]: Garrett Perez MD Drug Scr, Abuse, UrOrdered B y: Jmdebbie Hussein on 04-09-2021 MDMA, Urine NOT REPORTED Normal NEG [facility] [employer] Phone: Comment on above: Performed By: #### C OVRB #### [address] [place] [address] [employer]: Garrett Perez MD EthanolOrdered By: Jm chauhan on 04-09-2021 Ethanol [Mass/Vol] mg/dL <10 mg/dL [facility] [employer] Phone: Ethanol percent <0.010 <0.010 % [facility] Phone: [facility]: Ethanol Alcoholon 04-09-2021 Ethanol [Mass/Vol] mg/dL Normal <10 [facility] Comment on above: Performed By: #### A LCB, ACET #### [address] [place] [address] [employer]: Garrett Perez MD Ethanol percent <0.010 Normal <0.010 [facility] Comment on above: Performed By: #### A LCB, ACET #### [address] [place] [address] [employer]: Garrett Perez MD HCG Qualitative, SerumOrdere d By: Jm Hussein on 04-09-2021 hCG Qual Negative NEGATIVE [facility] Phone: Comment on above: Specimens with hCG l evels near the threshold of the test (25 mIU/mL) may give a negative or indeterminate result. In such cases, another test should be performed with a new specimen in 48-72 hours. If early is suspected clinically in this setting, correlation with quantitative serum b-hCG level is suggested. [employer] has confirmed the use of plasma for this test. This has not been cleared or approved by the U.S. Food and Drug Administration. The FDA has determined that such clearance is not necessary. [employer] Phone: HCG Screen, Bloodon 04-09-20 21 HCG Screen, Blood Negative Normal NEG [facility] Comment on above: Result Comment: Spec imens with hCG levels near the threshold of the test (25 mIU/mL) may give a negative or indeterminate result. In such cases, another test should be performed with a new specimen in 48-72 hours. If early is suspected clinically in this setting, correlation with quantitative serum b-hCG level is suggested. [employer] has confirmed the use of plasma for this test. This has not been cleared or approved by the U.S. Food and Drug Administration. The FDA has determined that such clearance is not necessary. Performed By: #### D AU #### [facility] [address] [place] [address] [place] [address] [employer]: Garrett Perez MD Laboratory - Chemistry and C hemistry - challengeOrdered By: Jm Hussein on 04-09-2021 GFR/1.73 sq M.predicted MDRD (S/P/Bld) [Vol rate/Area] [employer] Phone: Comment on above: Average GFR for 20-2 9 years old: 116 mL/min/1.73sq m Chronic Kidney Disease: <60 mL/min/1.73sq m Kidney failure: <15 mL/min/1.73sq m eGFR calculated using average adult body mass. Additional eGFR calculator available at: http://www.[employer].eleni/multiple_crcl_2012.htm Stage 1: Some kidney damage normal GFR Stage 2: Mild kidney damage GFR 60-89 Stage 3: Moderate kidney damage GFR 30-59 Stage 4: Severe kidney damage GFR 15-29 Stage 5: Severe kidney damage GFR <15 ESRD - chronic treatment by dialysis or transplant No Panel InformationOrdered By: Jm Hussein on 04-09-2021 Interpretation and review of laboratory results Abnormal [facility]: [facility] Phone: [id number] 04-09-2021 SARS-CoV-2 (COVID-19) RNA MORENA+probe Ql (Unsp spec) Not detected [facility] Comment on above: Result Comment: Rapid [...] management decisions. Fact sheet for Healthcare Providers: https://www.fda.gov/media/999590/download Fact sheet for Patients: https://www.fda.gov/media/603812/download Methodology: Isothermal Nucleic Acid Amplification Performed By: #### C OVRB #### [address] [place] [address] [employer]: Garrett Perez MD SPECIMEN REJECTIONOrdered By : Jm Hussein on 04-09-2021 - NOT REPORTED [facility] [employer] Phone: Ordered Test CDP [facility] [employer] Phone: Reason for Rejection Unable to perform testing: No specimen received. [facility] Work Phone: Specimen source Nom (Unsp spec) .BLOOD [facility] Work Phone: [facility] Work Phone: Salicylateon 04-09-2021 Salicylate <1 Low 3-10 [facility] Comment on above: Performed By: #### D AU #### [facility] [address] [place] [address] [employer]: Garrett Perez MD SalicylateOrdered By: Jm Hussein on 04-09-2021 Salicylate Lvl <1 Low 3 - 10 mg/dL [facility] [employer] Phone: Specimen Rejectionon 021 Reason for rejection Unable to perform testing: No specimen received. Normal [facility] Comment on above: Performed By: #### C OVRB #### [facility] [address] [place] [address] [place] [place], [place] [id number] [employer]: Garrett Perez MD Source of sample .BLOOD Normal [facility] Comment on above: Performed By: #### C OVRB #### [address] [place] [address] [employer]: Garrett Perez MD Test ordered CDP [facility] Comment on above: Performed By: #### C OVRB #### [facility] [address] [place] [address] [employer]: Garrett Perez MD ----- NOT REPORTED [facility] Comment on above: Performed By: #### C OVRB #### [facility] [address] [place] [address] [employer]: Garrett Perez MD Urinalysis w/ Microon 2020 ----- Normal [facility] Comment on above: Performed By: #### C OVRB #### [facility] [address] [place], [place] [id number] [employer]: Garrett Perez MD Bacteria 1+ Abnormal NONE [facility] Comment on above: Performed By: #### C OVRB #### [facility] [address] [place], [place] [id number] [employer]: Garrett Perez MD Bilirubin, SemiQt,Ur Negative Normal NEG [facility] Comment on above: Performed By: #### C OVRB #### [facility] [address] [place], [place] [id number] [employer]: Garrett Perez MD Blood, Urine Negative Normal NEG [facility] Comment on above: Performed By: #### C OVRB #### [facility] [address] [place], [place] [id number] [employer]: Garrett Perez MD Clarity (U) CLEAR Normal CLEAR [facility] Comment on above: Performed By: #### C OVRB #### [facility] [address] [place], [place] [id number] [employer]: Garrett Perez MD Color (U) YELLOW Normal YEL [facility] Comment on above: Performed By: #### C OVRB #### [facility] [address] [place], [place] [id number] [employer]: Garrett Perez MD Epithelial cells LM Ql (Urine sed) 5 TO 10 Normal 0-25 [facility] Comment on above: Performed By: #### C OVRB #### [facility] [address] [place] [address] [employer]: Garrett Perez MD Glucose Ql (U) Negative Normal NEG [facility] Comment on above: Performed By: #### C OVRB #### [facility] [address] [place] [address] [employer]: Garrett Perez MD Ketones Ql (U) Negative Normal NEG [facility] Comment on above: Performed By: #### C OVRB #### [facility] [address] [place] [address] [employer]: Garrett Perez MD Leukocyte esterase Test strip Ql (U) Negative Normal NEG [facility] Comment on above: Performed By: #### C OVRB #### [facility] [address] [place], [place] [id number] [employer]: Garrett Perez MD Nitrite,Ur Negative Normal NEG [facility] Comment on above: Performed By: #### C OVRB #### [facility] [address] [place] [address] [place] [address] [employer]: Garrett Perez MD PH,Ur 5.5 Normal 5.0-9.0 [facility] Comment on above: Performed By: #### C OVRB #### [facility] [address] [place], [place] [id number] [employer]: Garrett Perez MD Protein Ql (U) Negative Normal NEG [facility] Comment on above: Performed By: #### C OVRB #### [facility] [address] [place], [place] [address] [employer]: Garrett Perez MD Spec. [place],Ur 1.025 High 1.010-1.020 [facility] Comment on above: Performed By: #### C OVRB #### [facility] [address] [place], [place] [id number] [employer]: Garrett Perez MD Urine RBC's None Normal 0-2 [facility] Comment on above: Performed By: #### C OVRB #### [facility] [address] [place] [address] [employer]: Garrett Perez MD Urine WBC's 0 TO 2 Normal 0-5 [facility] Comment on above: Performed By: #### C OVRB #### [facility] [address] [place], [place] [address] [employer]: Garrett Perez MD Urobilinogen,Ur Normal Normal NORM [facility] Comment on above: Performed By: #### C OVRB #### [facility] [address] [place], [place] [address] [employer]: Garrett Perez MD Amorphous sediment LM Ql (Urine sed) NOT REPORTED Normal NONE [facility] Comment on above: Performed By: #### C OVRB #### [facility] [address] [place], [place] [id number] [employer]: Garrett Perez MD Casts NOT REPORTED Normal [facility] Comment on above: Performed By: #### C OVRB #### [facility] [address] [place], [place] [address] [employer]: Garrett Perez MD Comment NOT REPORTED Normal [facility] Comment on above: Performed By: #### C OVRB #### [facility] [address] [place], [place] [id number] [employer]: Garrett Perez MD Crystals LM Nom (Urine sed) NOT REPORTED Normal NONE [facility] Comment on above: Performed By: #### C OVRB #### [facility] [address] [place], [place] [address] [employer]: Garrett Perez MD Epithelial, Renal NOT REPORTED Normal 0 [facility] Comment on above: Performed By: #### C OVRB #### [facility] [address] [place], [place] [id number] [employer]: Garrett Perez MD Mucus Strands NOT REPORTED Normal NONE [facility] Comment on above: Performed By: #### C OVRB #### [facility] [address] [place], [place] [id number] [employer]: Garrett Perez MD Other Observations NOT REPORTED Normal NREQ [facility] Comment on above: Performed By: #### C OVRB #### [facility] [address] [place] [address] [employer]: Garrett Perez MD Trichomonas NOT REPORTED Normal [facility] Comment on above: Performed By: #### C OVRB #### [facility] [address] [place] [address] [employer]: Garrett Perez MD Yeast NOT REPORTED Normal [facility] Comment on above: Performed By: #### C OVRB #### [facility] [address] [place] [address] [employer]: Garrett Perez MD Urinalysis with microscopicO rdered By: Kalyan Irizarry on 04-09-2021 - [employer] Phone: Amorphous, UA NOT REPORTED None [employer] [facility] [employer] Phone: Bacteria, UA 1+ Abnormal None [employer] Phone: Bilirubin Urine Negative NEGATIVE [employer] [facility] [employer] Phone: Casts UA NOT REPORTED /LPF [employer] [facility] [employer] Phone: Color, UA YELLOW YELLOW [employer] [facility] [employer] Phone: Crystals, UA NOT REPORTED None /HPF [employer] [facility] [employer] Phone: Epithelial Cells UA 5 TO 10 [employer] [facility] Phone: Glucose, Ur Negative NEGATIVE [employer] [facility] Phone: Interpretation and review of laboratory results Abnormal [employer] [facility] [employer] Phone: Ketones Ql (U) Negative NEGATIVE [employer] [facility] [employer] Phone: Leukocyte esterase Test strip Ql (U) Negative NEGATIVE [employer] [facility] Phone: Mucus, UA NOT REPORTED None [employer] [facility] [employer] Phone: Nitrite, Urine Negative NEGATIVE [facility] [employer] Phone: Other Observations UA NOT REPORTED NOT REQ. M [facility] [employer] [facility] Phone: pH, UA 5.5 [facility] [employer] [facility] Phone: Protein, UA Negative NEGATIVE [facility] [employer] Work Phone: RBC, UA None [facility] Phone: Renal Epithelial, UA NOT REPORTED 0 /HPF Me y [employer] Work Phone: Specific [place], UA 1.025 High [facility] [employer] Work Phone: Trichomonas, UA NOT REPORTED None [facility] Phone: Turbidity UA CLEAR CLEAR [facility] Phone: Urinalysis Comments NOT REPORTED [facility] [employer] Work Phone: Urine Hgb Negative NEGATIVE [facility] [employer] Work Phone: Urobilinogen, Urine Normal Normal [facility] [employer] Work Phone: WBC, UA 0 TO 2 [facility] Phone: Yeast, UA NOT REPORTED None [facility] [employer] Work Phone: [facility] Phone: Urine Drug ScreenOrdered By: Jm Hussein on 04-09-2021 Amphetamine Screen, Ur Negative NEGATIVE [facility] [employer] Work Phone: Barbiturate Screen, Ur Negative NEGATIVE [facility] [employer] Work Phone: Benzodiazepine Screen, Urine Negative NEGATIVE [facility] Phone: Buprenorphine Urine Negative NEGATIVE [facility] [employer] Work Phone: Cannabinoid Scrn, Ur Positive Abnormal NEGATIVE [facility] [employer] Work Phone: Cocaine Metabolite, Urine Negative NEGATIVE [facility] Phone: Interpretation and review of laboratory results Abnormal [employer] [facility] [employer] Phone: Methadone Screen, Urine Negative NEGATIVE [facility] [employer] Phone: Methamphetamine, Urine Negative NEGATIVE Me [facility] [employer] Work Phone: Opiates, Urine Negative NEGATIVE [employer] [facility] [employer] Phone: Oxycodone Screen, Ur Negative NEGATIVE [facility] [employer] Work Phone: Phencyclidine, Urine Negative NEGATIVE [facility] [employer] Work Phone: Propoxyphene, Urine Negative NEGATIVE [facility] Phone: Test Information NOT REPORTED [employer] [facility] [employer] Phone: Tricyclic Antidepressants, Urine Negative NEGATIVE [facility] Phone: Comment on above: Drug screen results are to be used for medical purposes only. All positive results are unconfirmed. Testing for employment or legal uses should be sent to a reference laboratory for confirmation. [employer] Phone: COVID-19 PCRon 06-09-2020 SARS-CoV-2, MORENA Not Detected Normal Not Detected [facility] Comment on above: Result Comment: This test was developed and its performance characteristics determined by [employer] This test has not been FDA cleared [...] assay. Performed By: #### C VDPCR #### [facility] [address] [place], [place] [address] Cresencio Murphy CBC/PLATELET & AUTO DIFFEREN Ryan 06-12-2017 Basophils Auto #/vol (Bld) 0.0 10*3/uL Normal 0.0-0.1 [facility] Basophils/100 WBC Auto (Bld) 0 % Normal 0-1 [facility] CBC/PLATELET & AUTO DIFFERENTIAL 0.0 10*3/uL Normal - [facility] Comment on above: Result Comment: er 7 Eosinophils 0.0 10*3/uL Normal 0.0-0.4 [facility] Eosinophils/100 leukocytes 0 % Normal 0-5 [facility] Erythrocyte distribution width Auto Ratio (RBC) 12.9 % Normal 11.7-14.4 [facility] Erythrocytes (RBC) 4.79 10*6/uL Normal 4.20-5.40 [facility] Hematocrit (HCT) 40.0 % Normal 37.0-47.0 [facility] Hemoglobin mass conc (Bld) 14.0 g/dL Normal 11.5-16.0 [facility] Lymphocytes 1.8 10*3/uL Normal 0.9-2.5 [facility] Lymphocytes/100 leukocytes 10 % Low 13-44 [facility] MCH 29.2 pg Normal 27.0-31.0 [facility] MCHC mass conc (RBC) 35.0 g/dL Normal 31.5-36.0 [facility] MCV 83.5 fL Normal 82.0-101.0 [facility] Monocytes 1.0 10*3/uL Normal 0.1-1.0 [facility] Monocytes/100 leukocytes 6 % Normal 5-9 [facility] Neutrophils 14.5 10*3/uL High 2.1-6.5 [facility] Neutrophils/100 leukocytes 83 % High 39-75 [facility] Nucleated erythrocytes 0 % Normal - [facility] Platelet mean volume (PMV) 8.5 fL Normal 8.2-11.4 [facility] Platelets 239.0 10*3/uL Normal 130.0-400.0 [facility] WBC (Leukocytes) 17.6 10*3/uL High 4.4-10.2 [facility] CHEST PORTABLEon 06-12-2017 CHEST PORTABLE EXAM: Portable chest.CLINICAL STATEMENT: Syncopal episode today.COMPARISON: 10/31/2016.TECHNIQUE: Single mobile AP upright view chest at 3:21 PM.FINDINGS: Heart size within normal limits. There is no mediastinal widening.The lung cummins and pleural spaces are clear.IMPRESSION:No acute change.Dictated Physician: Loki Piper.Dictated On: 06/12/2017 15:30Interpreted By: Loki PiperTranscribed By: Cheo Piperigned By: Loki PiperSigned On: 06/12/2017 15:30 Normal [facility] HCG URINEon 06-12-2017 HCG.beta subunit ( test) Ql (U) Negative Normal Negative [facility] HCG.beta subunit ( test) Ql (U) SEE NOTE Normal - [facility] Comment on above: Result Comment: er 7 M I PANELon 06-12-2017 Anion gap 12.8 mmol/L Normal [facility] BUN/Creatinine Ratio 10.2 mg/mg Normal [facility] Calcium 8.8 mg/dL Normal 8.5-10.1 [facility] Chloride 107 mmol/L Normal 98-107 [facility] CO2 27.1 mmol/L Normal 21.0-32.0 [facility] Creatinine 0.98 mg/dL Normal 0.55-1.02 [facility] eGFR (non-black) mL/min/{1.73_m2} Normal >60 [facility] Glucose mass conc 87 mg/dL Normal 70-110 [facility] M I PANEL SEE NOTE Normal [facility] Comment on above: Result Comment: er 7 Magnesium 1.9 mg/dL Normal 1.8-2.4 [facility] Osmolality 283 mosm/kg [facility] Potassium molar conc 3.9 mmol/L Normal 3.5-5.1 [facility] Sodium 143 mmol/L Normal 136-145 [facility] Troponin I.cardiac mass conc ng/mL Normal 0.000-0.056 [facility] Urea nitrogen 10 mg/dL Normal 7-18 [facility] PT PROTIMEon 06-12-2017 INR Coag RelTime (PPP) 1.0 {INR} Normal - [facility] Prothrombin time (PT) Coag time (PPP) 10.5 s Normal 9.3-11.7 [facility] PT PROTIME SEE NOTE Normal - [facility] Comment on above: Result Comment: er 7 PTTon 06-12-2017 aPTT 24.8 s Normal 24.5-32.7 [facility] Comment on above: Result Comment: er 7 URINALYSIS W/ MICROSCOPIC if indicatedon 06-12-2017 Bilirubin Ql (U) Negative Normal Negative [facility] Blood Moderate Abnormal Negative [facility] Blood product type Clean catch Normal - [facility] Glucose mass conc Normal Normal Normal [facility] Protein Moderate Abnormal Negative [facility] Sq. Epithelial Cells 3 /[HPF] Abnormal None seen [facility] URINALYSIS W/ MICROSCOPIC if indicated 0 /[HPF] Normal 0-2 [facility] Comment on above: Result Comment: er 7 Urine, appearance CLEAR Normal Clear [facility] Urine, bacteria in sediment 1 /[HPF] Abnormal None seen [facility] Urine, color YELLOW Normal - [facility] Urine, ketones presence Negative Normal Negative H [facility] Urine, nitrite presence Positive Abnormal Negative H [facility] Urine, pH 7.0 [pH] Normal 5.0 - 9.0 [facility] Urine, specific gravity 1.010 Normal 1.01 0 - 1.030 [facility] Urine, urobilinogen Normal Normal Normal [facility] WBC (Leukocytes) 6 /[HPF] Abnormal 0-5 [facility] WBC (Leukocytes) Moderate Abnormal Negative [facility] Vital Signs Date Time Vital Sign Value Performing Clinician Facility 09-06-2024 16:58-0500 Diastolic blood pressure 83 mm[Hg] Denny Lomeli CNP Work Phone: [facility] Work Phone: 09-06-2024 16:58-0500 Systolic blood pressure 149 mm[Hg] Denny Lomeli CNP Work Phone: [facility] Work Phone: 09-06-2024 16:36-0500 Body height 162.56 cm Denny Lomeli CNP Work Phone: [facility] Work Phone: 09-06-2024 16:36-0500 Body mass index (BMI) [Ratio] 56.5 kg/m2 Denny Lomeli CNP Work Phone: [facility] Work Phone: 09-06-2024 16:36-0500 Body surface area Derived from formula 2.4 m2 Denny Lomeli CNP Work Phone: [facility] Work Phone: 09-06-2024 16:36-0500 Body temperature 98.3 [degF] Denny Lomeli CNP Work Phone: [facility] Work Phone: 09-06-2024 16:36-0500 Body weight 149.42 kg Denny Lomeli CNP Work Phone: [facility] Work Phone: 09-06-2024 16:36-0500 Diastolic blood pressure 84 mm[Hg] Denny Lomeli CNP Work Phone: [facility] Work Phone: 09-06-2024 16:36-0500 Heart rate 100 /min Denny Lomeli CNP Work Phone: [facility] Work Phone: 09-06-2024 16:36-0500 Respiratory rate 18 /min Denny Lomeli CNP Work Phone: [facility] Work Phone: 09-06-2024 16:36-0500 SaO2% (BldA) [Mass fraction] 97 % Denny Lomeli CNP Work Phone: [facility] Work Phone: 09-06-2024 16:36-0500 Systolic blood pressure 120 mm[Hg] Denny Lomeli CNP Work Phone: [facility] Work Phone: 07-18-2024 16:27-0400 Body height 162.56 cm Denny Lomeli CNP Work Phone: [facility] Work Phone: 07-18-2024 16:27-0400 Body mass index (BMI) [Ratio] 57.2 kg/m2 Denny Lomeli CNP Work Phone: [facility] Work Phone: 07-18-2024 16:27-0400 Body surface area Derived from formula 2.4 m2 Denny Lomeli CNP Work Phone: [facility] Work Phone: 07-18-2024 16:27-0400 Body temperature 97.6 [degF] Denny Lomeli CNP Work Phone: [facility] Work Phone: 07-18-2024 16:27-0400 Body weight 151.05 kg Denny Lomeli CNP Work Phone: [facility] Work Phone: 07-18-2024 16:27-0400 Diastolic blood pressure 86 mm[Hg] Denny Lomeli CNP Work Phone: [facility] Work Phone: 07-18-2024 16:27-0400 Heart rate 103 /min Denny Lomeli CNP Work Phone: [facility] Work Phone: 07-18-2024 16:27-0400 Respiratory rate 18 /min Denny Lomeli CNP Work Phone: [facility] Work Phone: 07-18-2024 16:27-0400 SaO2% (BldA) [Mass fraction] 95 % Denny Lomeli CNP Work Phone: [facility] Work Phone: 07-18-2024 16:27-0400 Systolic blood pressure 135 mm[Hg] Denny Lomeli [employer] Work Phone: [facility] Work Phone: 06-13-2024 17:46-0400 Diastolic blood pressure 84 mm[Hg] Denny Lomeli [employer] Work Phone: [facility] Comment on above: manual large 06-13-2024 17:46-0400 Systolic blood pressure 144 mm[Hg] Denny Lomeli [employer] Work Phone: [facility] Comment on above: manual large 06-13-2024 17:21-0400 Diastolic blood pressure 86 mm[Hg] Denny Lomeli [employer] Work Phone: [facility] Work Phone: 06-13-2024 17:21-0400 Systolic blood pressure 154 mm[Hg] Denny Lomeli CNP Work Phone: [facility] Work Phone: 06-13-2024 16:45-0400 Body height 162.56 cm Denny Lomeli CNP Work Phone: [facility] Work Phone: 06-13-2024 16:45-0400 Body mass index (BMI) [Ratio] 57.9 kg/m2 Denny Lomeli CNP Work Phone: [facility] Work Phone: 06-13-2024 16:45-0400 Body surface area Derived from formula 2.4 m2 Denny Lomeli CNP Work Phone: [facility] Work Phone: 06-13-2024 16:45-0400 Body weight 153.14 kg Denny Lomeli CNP Work Phone: [facility] Work Phone: 06-13-2024 16:45-0400 Diastolic blood pressure 98 mm[Hg] Denny Lomeli [employer] Work Phone: [facility] Work Phone: 06-13-2024 16:45-0400 Heart rate 103 /min Denny Lomeli [employer] Work Phone: [facility] Work Phone: 06-13-2024 16:45-0400 SaO2% (BldA) [Mass fraction] 96 % Denny Lomeli [employer] Work Phone: [facility] Work Phone: 06-13-2024 16:45-0400 Systolic blood pressure 151 mm[Hg] Denny Lomeli [employer] Work Phone: [facility] Work Phone: 04-10-2024 16:50-0400 Diastolic blood pressure 89 mm[Hg] Denny Lomeli [employer] Work Phone: [facility] 04-10-2024 16:50-0400 Heart rate 75 /min Denny Lomeli CNP Work Phone: [facility] 04-10-2024 16:50-0400 Systolic blood pressure 137 mm[Hg] Denny Lomeli [employer] Work Phone: [facility] 04-10-2024 16:39-0400 Body height 162.56 cm Denny Lomeli [employer] Work Phone: [facility] 04-10-2024 16:39-0400 Body mass index (BMI) [Ratio] 54.6 kg/m2 Denny Lomeli [employer] Work Phone: [facility] 04-10-2024 16:39-0400 Body surface area Derived from formula 2.4 m2 Denny Lomeli [employer] Work Phone: [facility] 04-10-2024 16:39-0400 Body weight 144.24 kg Denny Lomeli [employer] Work Phone: [facility] 04-10-2024 16:39-0400 Diastolic blood pressure 94 mm[Hg] Denny Lomeli [employer] Work Phone: [facility] 04-10-2024 16:39-0400 Heart rate 75 /min Denny Lomeli [employer] OF [employer] Work Phone: [facility] 04-10-2024 16:39-0400 SaO2% (BldA) [Mass fraction] 98 % Denny Lomeli [employer] Work Phone: [facility] 04-10-2024 16:39-0400 Systolic blood pressure 161 mm[Hg] Denny Lomeli [employer] OF [employer] Work Phone: [facility] 01-17-2024 19:09-0400 Body height 162.56 cm Denny Lomeli [employer] Work Phone: [facility] 01-17-2024 19:09-0400 Body mass index (BMI) [Ratio] 52.7 kg/m2 Denny Lomeli [employer] Work Phone: [facility] 01-17-2024 19:09-0400 Body surface area Derived from formula 2.3 m2 Denny Lomeli VP OF [employer] Work Phone: [facility] 01-17-2024 19:09-0400 Body weight 139.26 kg Denny Lomeli [employer] OF [employer] Work Phone: [facility] 01-17-2024 19:09-0400 Diastolic blood pressure 88 mm[Hg] Denny Lomeli [employer] OF [employer] Work Phone: [facility] 01-17-2024 19:09-0400 Heart rate 106 /min Denny Lomeli [employer] Work Phone: [facility] 01-17-2024 19:09-0400 SaO2% (BldA) [Mass fraction] 97 % Denny Lomeli VP OF [employer] Work Phone: [facility] 01-17-2024 19:09-0400 Systolic blood pressure 134 mm[Hg] Denny Lomeli CNP Work Phone: [facility] 06-14-2023 15:00-0400 Diastolic blood pressure 69 mm[Hg] Denny Lomeli [employer] OF [employer] Work Phone: [facility] 06-14-2023 15:00-0400 Systolic blood pressure 116 mm[Hg] Denny Lomeli [employer] OF [employer] Work Phone: [facility] 05-31-2023 15:52-0400 Diastolic blood pressure 78 mm[Hg] Denny Lomeli VP OF [employer] Work Phone: [facility] Work Phone: 05-31-2023 15:52-0400 Systolic blood pressure 137 mm[Hg] Denny Lomeli VP OF [employer] Work Phone: [facility] Work Phone: 05-10-2023 17:08-0400 Body height 162.56 cm Denny Lomeli CNP Work Phone: [facility] Work Phone: 05-10-2023 17:08-0400 Body mass index (BMI) [Ratio] 32.8 kg/m2 Denny Lomeli CNP Work Phone: [facility] Work Phone: 05-10-2023 17:08-0400 Body surface area Derived from formula 1.9 m2 Denny Lomeli CNP Work Phone: [facility] Work Phone: 05-10-2023 17:08-0400 Body temperature 98.2 [degF] Denny Lomeli CNP Work Phone: [facility] Work Phone: 05-10-2023 17:08-0400 Body weight 86.64 kg Denny Lomeli CNP Work Phone: [facility] Work Phone: 05-10-2023 17:08-0400 Diastolic blood pressure 76 mm[Hg] Denny Lomeli CNP Work Phone: [facility] Work Phone: 05-10-2023 17:08-0400 Heart rate 97 /min Denny Lomeli CNP Work Phone: [facility] Work Phone: 05-10-2023 17:08-0400 SaO2% (BldA) [Mass fraction] 97 % Denny Lomeli CNP Work Phone: [facility] Work Phone: 05-10-2023 17:08-0400 Systolic blood pressure 111 mm[Hg] Denny Lomeli VP OF [employer] Work Phone: [facility] Work Phone: 05-01-2023 14:03-0400 Diastolic blood pressure 76 mm[Hg] Denny Lomeli CNP Work Phone: [facility] 05-01-2023 14:03-0400 Heart rate 94 /min Denny Lomeli CNP Work Phone: [facility] 05-01-2023 14:03-0400 Systolic blood pressure 124 mm[Hg] Denny Lomeli CNP Work Phone: [facility] 08-12-2022 13:36-0400 Body height 162.56 cm Denny Lomeli CNP Work Phone: [facility] Work Phone: 08-12-2022 13:36-0400 Body mass index (BMI) [Ratio] 52.5 kg/m2 Denny Lomeli CNP Work Phone: [facility] Work Phone: 08-12-2022 13:36-0400 Body surface area Derived from formula 2.3 m2 Denny Lomeli CNP Work Phone: [facility] Work Phone: 08-12-2022 13:36-0400 Body temperature 99.3 [degF] Denny Lomeli CNP Work Phone: [facility] Work Phone: 08-12-2022 13:36-0400 Body weight 138.8 kg Denny Lomeli CNP Work Phone: [facility] Work Phone: 08-12-2022 13:36-0400 Diastolic blood pressure 86 mm[Hg] Denny Lomeli CNP Work Phone: [facility] Work Phone: 08-12-2022 13:36-0400 Heart rate 96 /min Denny Lomeli CNP Work Phone: [facility] Work Phone: 08-12-2022 13:36-0400 Heart Rate Rhythm 1 1 Denny Lomeli CNP Work Phone: [facility] Work Phone: 08-12-2022 13:36-0400 SaO2% (BldA) [Mass fraction] 97 % Denny Lomeli CNP Work Phone: [facility] Work Phone: 08-12-2022 13:36-0400 Systolic blood pressure 124 mm[Hg] Denny Lomeli CNP Work Phone: [facility] Work Phone: 06-15-2022 15:17-0400 Body height 162.56 cm Denny Lomeli CNP Work Phone: [facility] Work Phone: 06-15-2022 15:17-0400 Body mass index (BMI) [Ratio] 53.6 kg/m2 Denny Lomeli CNP Work Phone: [facility] Work Phone: 06-15-2022 15:17-0400 Body surface area Derived from formula 2.36 m2 Denny Lomeli CNP Work Phone: [facility] Work Phone: 06-15-2022 15:17-0400 Body surface area Derived from formula 2.4 m2 Denny Lomeli CNP Work Phone: [facility] Work Phone: 06-15-2022 15:17-0400 Body temperature 97.4 [degF] Denny Lomeli CNP Work Phone: [facility] Work Phone: 06-15-2022 15:17-0400 Body weight 141.52 kg Denny Lomeli CNP Work Phone: [facility] Work Phone: 06-15-2022 15:17-0400 Diastolic blood pressure 82 mm[Hg] Denny Lomeli CNP Work Phone: [facility] Work Phone: 06-15-2022 15:17-0400 Heart rate 86 /min Denny Lomeli CNP Work Phone: [facility] Work Phone: 06-15-2022 15:17-0400 SaO2% (BldA) [Mass fraction] 98 % Denny Lomeli CNP Work Phone: [facility] Work Phone: 06-15-2022 15:17-0400 Systolic blood pressure 124 mm[Hg] Denny Lomeli CNP Work Phone: [facility] Work Phone: 06-08-2022 15:06-0400 Body height 162.56 cm Denny Lomeli CNP Work Phone: [facility] Work Phone: 06-08-2022 15:06-0400 Body mass index (BMI) [Ratio] 52.2 kg/m2 Denny Lomeli CNP Work Phone: [facility] Work Phone: 06-08-2022 15:06-0400 Body surface area Derived from formula 2.34 m2 Denny Lomeli CNP Work Phone: [facility] Work Phone: 06-08-2022 15:06-0400 Body surface area Derived from formula 2.3 m2 Denny Lomeli CNP Work Phone: [facility] Work Phone: 06-08-2022 15:06-0400 Body temperature 99.3 [degF] Denny Lomeli CNP Work Phone: [facility] Work Phone: 06-08-2022 15:06-0400 Body weight 137.89 kg Denny Lomeli CNP Work Phone: [facility] Work Phone: 06-08-2022 15:06-0400 Diastolic blood pressure 94 mm[Hg] Denny Lomeli CNP Work Phone: [facility] Work Phone: 06-08-2022 15:06-0400 Heart rate 105 /min Denny Lomeli CNP Work Phone: [facility] Work Phone: 06-08-2022 15:06-0400 Heart Rate Rhythm 1 1 Denny Lomeli CNP Work Phone: [facility] Work Phone: 06-08-2022 15:06-0400 SaO2% (BldA) [Mass fraction] 98 % Denny Lomeli CNP Work Phone: [facility] Work Phone: 06-08-2022 15:06-0400 Systolic blood pressure 126 mm[Hg] Denny Lomeli CNP Work Phone: [facility] Work Phone: 05-27-2022 16:34-0400 Diastolic blood pressure 102 mm[Hg] Denny Lomeli CNP Work Phone: [facility] Work Phone: 05-27-2022 16:34-0400 Systolic blood pressure 150 mm[Hg] Denny Lomeli CNP Work Phone: [facility] Work Phone: 05-27-2022 15:08-0400 Body height 162.56 cm Denny Lomeli CNP Work Phone: [facility] Work Phone: 05-27-2022 15:08-0400 Body mass index (BMI) [Ratio] 52.6 kg/m2 Denny Lomeli CNP Work Phone: [facility] Work Phone: 05-27-2022 15:08-0400 Body surface area Derived from formula 2.34 m2 Denny Lomeli CNP Work Phone: [facility] Work Phone: 05-27-2022 15:08-0400 Body surface area Derived from formula 2.3 m2 Denny Lomeli CNP Work Phone: [facility] Work Phone: 05-27-2022 15:08-0400 Body temperature 98.5 [degF] Denny Lomeli CNP Work Phone: [facility] Work Phone: 05-27-2022 15:08-0400 Body weight 138.98 kg Denny Lomeli CNP Work Phone: [facility] Work Phone: 05-27-2022 15:08-0400 Diastolic blood pressure 108 mm[Hg] Denny Lomeli CNP Work Phone: [facility] Work Phone: 05-27-2022 15:08-0400 Heart rate 89 /min Denny Lomeli CNP Work Phone: [facility] Work Phone: 05-27-2022 15:08-0400 SaO2% (BldA) [Mass fraction] 99 % Denny Lomeli CNP Work Phone: [facility] Work Phone: 05-27-2022 15:08-0400 Systolic blood pressure 152 mm[Hg] Denny Lomeli CNP Work Phone: [facility] Work Phone: 07-15-2021 13:50-0400 Body height 162.56 cm Denny Lomeli CNP Work Phone: [facility] Work Phone: 07-15-2021 13:50-0400 Body mass index (BMI) [Ratio] 50.1 kg/m2 Denny Lomeli CNP Work Phone: [facility] Work Phone: 07-15-2021 13:50-0400 Body surface area Derived from formula 2.3 m2 Denny Lomeli CNP Work Phone: [facility] Work Phone: 07-15-2021 13:50-0400 Body temperature 96.8 [degF] Denny Lomeli CNP Work Phone: [facility] Work Phone: 07-15-2021 13:50-0400 Body weight 132.45 kg Denny Lomeli [employer] Work Phone: [facility] Work Phone: 07-15-2021 13:50-0400 Diastolic blood pressure 86 mm[Hg] Denny Lomeli VP [employer] Work Phone: [facility] Work Phone: 07-15-2021 13:50-0400 Heart rate 86 /min Denny Lomeli [employer] Work Phone: [facility] Work Phone: 07-15-2021 13:50-0400 Respiratory rate 18 /min Denny Lomeli VP [employer] Work Phone: [facility] Work Phone: 07-15-2021 13:50-0400 SaO2% (BldA) [Mass fraction] 96 % Denny Lomeli CNP Work Phone: [facility] Work Phone: 07-15-2021 13:50-0400 Systolic blood pressure 132 mm[Hg] Denny Lomeli VP [employer] Work Phone: [facility] Work Phone: 07-06-2021 23:34-0400 Heart rate 100 /min Kalyan Irizarry MD Work Phone: [employer] Work Phone: 07-06-2021 23:30-0400 Diastolic blood pressure 94 mm[Hg] Kalyan Irizarry MD Work Phone: [employer] Work Phone: 07-06-2021 23:30-0400 Systolic blood pressure 146 mm[Hg] Kalyan Irizarry MD Work Phone: [employer] Work Phone: 07-06-2021 22:37-0400 SaO2% (BldA) [Mass fraction] 97 % Kalyan Irizarry MD Work Phone: [employer] Work Phone: 07-06-2021 14:51-0400 Body mass index (BMI) [Ratio] 47.72 kg/m2 Kalyan Irizarry MD Work Phone: [employer] Work Phone: 07-06-2021 14:51-0400 Body temperature 98.2 [degF] Kalyan Irizarry MD Work Phone: [employer] Work Phone: 07-06-2021 14:51-0400 Body weight 126.1 kg Kalyan Irizarry MD Work Phone: [employer] Work Phone: 07-06-2021 14:51-0400 Respiratory rate 16 /min Kalyan Irizarry MD Work Phone: [employer] Work Phone: 06-17-2021 16:38-0400 Body height 162.56 cm Denny Lomeli CNP Work Phone: [facility] Work Phone: 06-17-2021 16:38-0400 Body mass index (BMI) [Ratio] 49.3 kg/m2 Denny Lomeli [employer] Work Phone: [facility] Work Phone: 06-17-2021 16:38-0400 Body surface area Derived from formula 2.28 m2 Denny Armani CHAVEZ Work Phone: [facility] Work Phone: 06-17-2021 16:38-0400 Body temperature 97.4 [degF] Denny Lomeli CNP Work Phone: [facility] Work Phone: 06-17-2021 16:38-0400 Body weight 130.18 kg Denny Lomeli [employer] Work Phone: [facility] Work Phone: 06-17-2021 16:38-0400 Diastolic blood pressure 98 mm[Hg] Denny Lomeli VP [employer] Work Phone: [facility] Work Phone: 06-17-2021 16:38-0400 Heart rate 85 /min Denny Lomeli [employer] Work Phone: [facility] Work Phone: 06-17-2021 16:38-0400 Respiratory rate 18 /min Denny Lomeli [employer] Work Phone: [facility] Work Phone: 06-17-2021 16:38-0400 SaO2% (BldA) [Mass fraction] 97 % Denny Lomeli CNP Work Phone: [facility] Work Phone: 06-17-2021 16:38-0400 Systolic blood pressure 144 mm[Hg] Denny Lomeli VP [employer] Work Phone: [facility] Work Phone: 05-16-2021 02:36-0400 Diastolic blood pressure 93 mm[Hg] Blanco Montalvo MD Work Phone: [employer] Work Phone: 05-16-2021 02:36-0400 Heart rate 75 /min Blanco Montalvo MD Work Phone: [employer] Work Phone: 05-16-2021 02:36-0400 Respiratory rate 20 /min Blanco Montalvo MD Work Phone: [employer] Work Phone: 05-16-2021 02:36-0400 SaO2% (BldA) [Mass fraction] 100 % Blanco Montalvo MD Work Phone: [employer] Work Phone: 0 02:36-0400 Systolic blood pressure 150 mm[Hg] Blanco Montalvo MD Work Phone: [employer] Work Phone: 05-15-2021 20:15-0400 Body temperature 99.1 [degF] Blanco Montalvo MD Work Phone: [employer] Work Phone: 04-23-2021 11:33-0400 Body height 162.56 cm Denny Lomeli CNP Work Phone: [employer] [facility] Work Phone: 04-23-2021 11:33-0400 Body mass index (BMI) [Ratio] 48.9 kg/m2 Dennyartem Lomeli VP [employer] Work Phone: [facility] Work Phone: 04-23-2021 11:33-0400 Body surface area Derived from formula 2.27 m2 Denny Armani SCOTT Work Phone: [facility] Work Phone: 04-23-2021 11:33-0400 Body temperature 98.2 [degF] Denny Armani CHAVEZ Work Phone: [facility] Work Phone: 04-23-2021 11:33-0400 Body weight 129.28 kg Denny Lomeli CNP Work Phone: [facility] Work Phone: 04-23-2021 11:33-0400 Diastolic blood pressure 86 mm[Hg] Denny Lomeli CNP Work Phone: [facility] Work Phone: 04-23-2021 11:33-0400 Heart rate 101 /min Denny Lomeli [employer] Work Phone: [facility] Work Phone: 04-23-2021 11:33-0400 SaO2% (BldA) [Mass fraction] 98 % Denny Lomeli [employer] Work Phone: [facility] Work Phone: 04-23-2021 11:33-0400 Systolic blood pressure 124 mm[Hg] Denny Lomeli VP [employer] Work Phone: [facility] Work Phone: 04-09-2021 16:30-0400 Body height 162.6 cm Jm Andes DO Work Phone: [employer] Work Phone: 04-09-2021 16:30-0400 Body mass index (BMI) [Ratio] 47.2 kg/m2 Jm Andes DO Work Phone: [employer] Work Phone: 04-09-2021 16:30-0400 Body temperature 98.8 [degF] Jm Andes DO Work Phone: [employer] Work Phone: 04-09-2021 16:30-0400 Body weight 124.74 kg Jm Andes DO Work Phone: [employer] Work Phone: 04-09-2021 16:30-0400 Diastolic blood pressure 88 mm[Hg] Jm Andes DO Work Phone: [employer] Work Phone: 04-09-2021 16:30-0400 Heart rate 78 /min Jm Andes DO Work Phone: [employer] Work Phone: 04-09-2021 16:30-0400 Respiratory rate 18 /min Mj Andes DO Work Phone: [employer] Work Phone: 04-09-2021 16:30-0400 SaO2% (BldA) [Mass fraction] 96 % Jm Andes DO Work Phone: [employer] Work Phone: 04-09-2021 16:30-0400 Systolic blood pressure 138 mm[Hg] Jm Andes DO Work Phone: [employer] Work Phone: 04-01-2021 15:53-0400 Body height 162.56 cm Denny Lomeli CNP Work Phone: [employer] [facility] Work Phone: 04-01-2021 15:53-0400 Body mass index (BMI) [Ratio] 49.5 kg/m2 Denny Lomeli CNP Work Phone: [employer] [facility] Work Phone: 04-01-2021 15:53-0400 Body surface area Derived from formula 2.29 m2 Denny Lomeli CNP Work Phone: [facility] Work Phone: 04-01-2021 15:53-0400 Body temperature 97.6 [degF] Denny Lomeli CNP Work Phone: [facility] Work Phone: 04-01-2021 15:53-0400 Body weight 130.82 kg Denny Lomeli CNP Work Phone: [facility] Work Phone: 04-01-2021 15:53-0400 Diastolic blood pressure 88 mm[Hg] Denny Lomeli CNP Work Phone: [facility] Work Phone: 04-01-2021 15:53-0400 Heart rate 83 /min Denny Lomeli CNP Work Phone: [facility] Work Phone: 04-01-2021 15:53-0400 Respiratory rate 20 /min Denny Lomeli CNP Work Phone: [facility] Work Phone: 04-01-2021 15:53-0400 SaO2% (BldA) [Mass fraction] 98 % Denny Lomeli CNP Work Phone: [facility] Work Phone: 04-01-2021 15:53-0400 Systolic blood pressure 130 mm[Hg] Denny Lomeli CNP Work Phone: [facility] Work Phone: 03-17-2021 15:36-0400 Diastolic blood pressure 108 mm[Hg] Denny Lomeli CNP Work Phone: [facility] Work Phone: 03-17-2021 15:36-0400 Systolic blood pressure 134 mm[Hg] Denny Lomeli CNP Work Phone: [facility] Work Phone: 03-17-2021 14:05-0400 Body height 162.56 cm Denny Lomeli CNP Work Phone: [facility] Work Phone: 03-17-2021 14:05-0400 Body mass index (BMI) [Ratio] 49.8 kg/m2 Denny Lomeli CNP Work Phone: [facility] Work Phone: 03-17-2021 14:05-0400 Body surface area Derived from formula 2.29 m2 Denny Lomeli CNP Work Phone: [facility] Work Phone: 03-17-2021 14:05-0400 Body temperature 96.4 [degF] Denny Lomeli CNP Work Phone: [facility] Work Phone: 03-17-2021 14:05-0400 Body weight 131.54 kg Denny Lomeli CNP Work Phone: [facility] Work Phone: 03-17-2021 14:05-0400 Diastolic blood pressure 108 mm[Hg] Denny Lomeli CNP Work Phone: [facility] Work Phone: 03-17-2021 14:05-0400 Heart rate 97 /min Denny Lomeli CNP Work Phone: [facility] Work Phone: 03-17-2021 14:05-0400 Respiratory rate 18 /min Denny Lomeli CNP Work Phone: [facility] Work Phone: 03-17-2021 14:05-0400 SaO2% (BldA) [Mass fraction] 98 % Denny Lomeli CNP Work Phone: [facility] Work Phone: 03-17-2021 14:05-0400 Systolic blood pressure 150 mm[Hg] Denny Lomeli CNP Work Phone: [facility] Work Phone: Encounters Encounter Date Encounter Type Care Provider Facility Start: 09-16-2024 End: 09-16-2024 ambulatory BRENT DONATO Not Available Start: 09-06-2024 End: 09-06-2024 [facility]QHC visit, estab pt Denny Lomeli CNP Work Phone: [facility] Work Phone: Start: 08-26-2024 End: 08-26-2024 ambulatory LELO COLLADO Not Available Start: 08-16-2024 End: 08-16-2024 ambulatory Brent Tanmay [facility] Work Phone: Start: 08-16-2024 End: 08-16-2024 Departed Referred DO Brent Tanmay Work Phone: [facility] Start: 08-12-2024 End: 08-12-2024 ambulatory BRENT TANMAY Not Available Start: 08-08-2024 Non-patient / Non-visit DO Cor ey Tanmay Work Phone: [facility] Work Phone: Start: 07-18-2024 End: 07-18-2024 FQHC visit, estab pt Sarai Alberts HYDRATOR Work Phone: [facility] Work Phone: Start: 06-13-2024 End: 06-13-2024 FQHC visit, estab pt Kinga Short LISWS Work Phone: [facility] Work Phone: Start: 06-13-2024 End: 06-13-2024 Encounter for preprocedural laboratory examination Denny Lomeli CNP Work Phone: [facility] Work Phone: Start: 06-13-2024 End: 06-13-2024 FQHC visit, estab pt Denny Lomeli [employer] Work Phone: [facility] Work Phone: Start: 04-10-2024 End: 04-10-2024 FQHC visit, estab pt Kinga Short LISWS Work Phone: [facility] Work Phone: Start: 04-10-2024 End: 04-10-2024 FQHC visit, estab pt Kinga Short LISWS Work Phone: [facility] Work Phone: Start: 02-28-2024 End: 02-29-2024 Emergency department patient visit MABLE RO [facility] Start: 01-17-2024 End: 01-17-2024 FQHC visit, estab pt Kinga Bk RUDOLPH Work Phone: [facility] Work Phone: Start: 01-17-2024 End: 01-17-2024 General Denny Lomeli CNP Work Phone: [facility] Work Phone: Start: 06-14-2023 End: 06-14-2023 General Boston Mao DDS Work Phone: [facility] Work Phone: Start: 05-31-2023 End: 05-31-2023 General Boston Mao DDS Work Phone: [facility] Work Phone: Start: 05-10-2023 End: 05-10-2023 FQHC visit, estab pt Denny Lomeli [employer] Work Phone: [facility] Work Phone: Start: 05-01-2023 comprehensive oral evaluation - new or established patient [place] Mao DDS Work Phone: [facility] Start: 05-01-2023 End: 05-01-2023 General Dina Ham RDH Work Phone: [facility] Work Phone: Start: 08-13-2022 End: 08-13-2022 ambulatory DENNY LOMELI [facility] Start: 08-12-2022 End: 08-12-2022 Subsequent hospital visit by physician Denny Lomeli 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 - [employer] Work Phone: [facility] Start: 08-12-2022 End: 08-12-2022 FQHC visit, estab pt Denny Lomeli [employer] Work Phone: [facility] Work Phone: Start: 06-16-2022 End: 06-16-2022 General Belkis Velarde LPCC-S Work Phone: [facility] Work Phone: Start: 06-15-2022 End: 06-15-2022 ambulatory Leah Monique [employer] Work Phone: [facility] Work Phone: Start: 06-15-2022 End: 06-15-2022 General Leah Monique [employer] Work Phone: [facility] Work Phone: Start: 06-08-2022 End: 06-08-2022 FQHC visit, estab pt Belkis Velarde LPCC-S Work Phone: [facility] Work Phone: Start: 05-27-2022 End: 05-27-2022 FQHC visit, estab pt Belkis Velarde LPCC-S Work Phone: [facility] Work Phone: Start: 05-27-2022 End: 05-27-2022 ambulatory Leah Monique [employer] Work Phone: [facility] Work Phone: Start: 05-27-2022 End: 07-15-2021 General Leah Monique [employer] Work Phone: [facility] Work Phone: Start: 07-26-2021 End: 07-27-2021 ambulatory DENNY Melvin [facility] Start: 07-26-2021 End: 07-26-2021 Subsequent hospital visit by physician [facility] [employer] [facility] EKG Comment on above: Tachycardia Start: 07-15-2021 End: 07-15-2021 FQHC visit, estab pt Eufemia Mcneil [facility] Work Phone: [facility] Work Phone: Start: 07-15-2021 End: 07-15-2021 FQHC visit, estab pt Eufemia Mcneil [facility] Work Phone: [facility] Work Phone: Start: 07-07-2021 End: 07-10-2021 Evaluation and management of inpatient Maryjo JUAREZ [facility] Start: 07-06-2021 End: 07-07-2021 Emergency department patient visit ROMEO QUINTEROAwilda [facility] Start: 07-06-2021 End: 07-06-2021 Emergency department patient visit Kalyan Irizarry MD Work Phone: [facility] ED Comment on above: Bipolar 1 disorder ( HCC) (Primary Dx); Homicidal ideation Start: 06-17-2021 End: 06-17-2021 FQ visit, estab pt Kinga RUDOLPH Work Phone: [facility] Work Phone: Start: 05-15-2021 End: 05-16-2021 Emergency department patient visit BLANCO Almaraz [facility] Start: 05-15-2021 End: 05-16-2021 Emergency department patient visit Blanco Montalvo MD Work Phone: [facility] ED Comment on above: Anxiety state (Prima ry Dx) Start: 04-23-2021 End: 04-23-2021 ambulatory Teagan Glae CNP Work Phone: [facility] Work Phone: Start: 04-23-2021 End: 04-23-2021 General Teagan Gale CNP Work Phone: [facility] Work Phone: Start: 04-23-2021 End: 04-23-2021 FQHC visit, estab pt Kinga Short LISWS Work Phone: [facility] Work Phone: Start: 04-23-2021 End: 04-23-2021 FQHC visit, estab pt Kinga Short LISWS Work Phone: [facility] Work Phone: Start: 04-09-2021 End: 04-10-2021 Emergency department patient visit [facility] Start: 04-09-2021 End: 04-10-2021 Emergency department patient visit [facility] DO Work Phone: [facility] ED Comment on above: Depression with suic idal ideation (Primary Dx) Start: 04-01-2021 End: 04-01-2021 FQHC visit, estab pt Kinga Short LISWS Work Phone: [facility] Work Phone: Start: 04-01-2021 End: 04-01-2021 FQHC visit, estab pt Kinga Short LISWS Work Phone: [facility] Work Phone: Start: 03-17-2021 End: 03-17-2021 FQHC visit, estab pt Kinga Short LISWS Work Phone: [facility] Work Phone: Start: 03-17-2021 End: 03-17-2021 FQHC visit new patient Denny Lomeli [employer] Work Phone: [facility] Work Phone: Start: 06-06-2020 End: 06-06-2020 Patient encounter procedure ADDIS Dickey SUNIL Facility: Start: 06-12-2017 End: 06-12-2017 Emergency department patient visit MD MARIBEL ASTORGA Facility:[facility] Procedures Date Procedure Procedure Detail Performing Clinician Start: 09-06-2024 Current tobacco non- user cad cap copd pv dm Denny Lomeli CNP Work Phone: Start: 09-06-2024 Dilation and curettage Denny Lomeli CNP Work Phone: Start: 09-06-2024 Hemoglobin glycosyla stephanie a1c Denny Lomeli CNP Work Phone: Start: 09-06-2024 Most recent diastoli c blood pressure 80-89 mm hg Denny Lomeli CNP Work Phone: Start: 09-06-2024 Most recent hg a1c>e qual to 7.0%&<8.0% Denny Lomeli CNP Work Phone: Start: 09-06-2024 Most recent systolic blood pressure <130 mm hg Denny Lomeli CNP Work Phone: Start: 09-06-2024 Urine albumin quantitative Denny Lomlei CNP Work Phone: Start: 07-18-2024 Application of silve r diamine fluoride by physician Denny Lomeli CNP Work Phone: Start: 07-18-2024 Behav assmt w/score & docd/stand instrument Sarai Alberts HYDRATOR Work Phone: Start: 07-18-2024 Eye img vld [...] 06-13-2024 Psychotherapy w/blaze ent 30 minutes Kinga Bourgeois [employer] Work Phone: Start: 04-10-2024 Behav assmt w/score & docd/stand instrument Kinga Bk [employer] Work Phone: Start: 04-10-2024 Current tobacco non- [...] resin-based composit e - one surface, posterior Tazeen Mao DDS Work Phone: Start: 05-31-2023 resin-based composit e - one surface, posterior Tazeen Mao DDS Work Phone: Start: 05-10-2023 Hemoglobin glycosyla stephanie a1c Denny Lomeli CNP Work Phone: Start: 05-10-2023 Most recent diastoli c blood pressure < 80 mm hg Denny Lomeli CNP Work Phone: Start: 05-10-2023 Most recent hemoglob in a1c level < 7.0% Denny Lomeli CNP Work Phone: Start: 05-10-2023 Most recent systolic blood pressure <130 mm hg Denny Lomeli CNP Work Phone: Start: 05-01-2023 caries risk assessme nt and documentation, with a finding of high risk Dina Ham RD Work Phone: Start: 05-01-2023 intraoral - complete series of radiographic images Dina Ham RD Work Phone: Start: 05-01-2023 panoramic radiograph ic image Dina Ham RD Work Phone: Start: 05-01-2023 prophylaxis - adult Ernie Ham [facility] Work Phone: Start: 08-12-2022 Most recent diastoli c blood pressure 80-89 mm hg Dennyartem Landonen [employer] Work Phone: Start: 08-12-2022 Most recent systolic blood pressure <130 mm hg Denny Armani [employer] Work Phone: Start: 06-16-2022 Psychotherapy w/blaze ent 30 minutes Belkis Velarde LPCC-S Work Phone: Start: 06-15-2022 Most recent diastoli c blood pressure 80-89 mm hg Leah Monique [employer] Work Phone: Start: 06-15-2022 Most recent systolic blood pressure <130 mm hg Leah Monique [employer] Work Phone: Start: 06-15-2022 Psychotherapy w/blaze ent 30 minutes Belkis Velarde LPCC-S Work Phone: Start: 06-08-2022 Most recent diastol blood pres >/equal 90 mm hg Denny Landonen [employer] Work Phone: Start: 06-08-2022 Most recent systolic blood pressure <130 mm hg Denny Lomeli [employer] Work Phone: Start: 06-08-2022 Psychotherapy w/blaze ent 30 minutes Belkis Velarde LPCC-S Work Phone: Start: 05-27-2022 Hemoglobin glycosyla stephanie a1c Leah Monique [employer] Work Phone: Start: 05-27-2022 Most recent diastol blood pres >/equal 90 mm hg Leah Monique [employer] Work Phone: Start: 05-27-2022 Most recent hemoglob in a1c level < 7.0% Leah Monique [employer] Work Phone: Start: 05-27-2022 Most recent systolic blood pres>/equal 140 mm hg Leah Monique [employer] Work Phone: Start: 05-27-2022 Psychotherapy w/blaze ent 30 minutes Belkis Coffeyerson [facility] Work Phone: Start: 07-15-2021 Antibody hiv-1&hiv-2 single result Denny Lomeli [facility] Work Phone: Start: 07-15-2021 Most recent diastoli c blood pressure 80-89 mm hg Denny Lomeli [employer] Work Phone: Start: 07-15-2021 Most recent systolic blood press 130-139mm hg Denny Lomeli [facility] Work Phone: Start: 07-15-2021 Psychotherapy w/blaze ent 30 minutes Eufemia Mcneil [facility] Work Phone: Start: 07-15-2021 Pt scrnd tobacco use rcvd tobacco cessation talk Denny Lomeli [facility] Work Phone: Start: 07-06-2021 COVID-19, RAPID Kalyan [...] routine ecg w/le ast 12 lds w/i&r Kalyna Irizarry MD Work Phone: Start: 06-17-2021 Most recent diastoli c blood pressure < 80 mm hg Denny Lomeli [employer] Work Phone: Start: 06-17-2021 Most recent systolic blood pressure <130 mm hg Denny Lomeli [employer] Work Phone: Start: 06-17-2021 Psychotherapy w/blaze ent [...] blood pressure 80-89 mm hg Denny Lomeli [employer] Work Phone: Start: 04-23-2021 Most recent systolic blood pressure <130 mm hg Denny Lomeli [employer] Work Phone: Start: 04-23-2021 Psychotherapy w/blaze ent 30 minutes Kinga Short LISWS Work Phone: Start: 04-09-2021 Ecg routine ecg w/le ast 12 lds w/i&r Jm Hussein DO Work Phone: Start: 04-09-2021 Assay of [...] blood pressure 80-89 mm hg Denny Lomeli [facility] Work Phone: Start: 04-01-2021 Most recent systolic blood pressure <130 mm hg Denny Lomeli [facility] Work Phone: Start: 04-01-2021 Psychotherapy w/blaze ent 30 minutes Kinga Short LIS[facility] Work Phone: Start: 03-17-2021 Ear Pressure Equaliz ation Tube, Insertion, Bilaterally Denny Lomeli [facility] Work Phone: Start: 03-17-2021 Most recent diastol blood pres >/equal 90 mm hg Denny Lomeli [employer] Work Phone: Start: 03-17-2021 Most recent systolic blood pres>/equal 140 mm hg Denny Lomeli [facility] Work Phone: Start: 03-17-2021 Pt-focused hlth risk assmt score doc stnd instrm Denny Lomeli [employer] Work Phone: Start: 03-17-2021 Tonsillectomy Denny Cot ten SCOTT Work Phone: Plan of Treatment Date Care Activity Detail Author Start: 12-16-2024 FQHC visit, estab pt Medical E stablished Patient [facility] Work Phone: Start: 09-06-2024 End: 09-06-2024 Patient education based on identified need [facility] Start: 08-15-2024 FQHC visit, estab pt Medical E stablished Patient [facility] Work Phone: Start: 08-03-2024 CBC W Auto Different ial panel - Blood [facility] Start: 07-18-2024 FQHC visit, estab pt Medical E stablished Patient [facility] Work Phone: Start: 07-18-2024 End: 07-18-2024 Patient education based on identified need [facility] Start: 07-13-2024 US Transvaginal ([id number]) [facility] Start: 06-13-2024 End: 06-13-2024 Patient education based on identified need [facility] Start: 06-13-2024 FQHC visit, estab pt Medical E stablished Patient [facility] Work Phone: Start: 06-13-2024 End: 06-13-2024 Patient education based on identified need [facility] Start: 04-15-2024 Ferritin [Mass/volum e] in Serum or Plasma [facility] Start: 04-10-2024 End: 04-10-2024 Patient education based on identified need [facility] Start: 03-21-2024 FQHC visit, estab pt Medical E stablished Patient [facility] Work Phone: Start: 02-16-[address] Xsqyactss-Okjnhopac-Zbu [facility] Start: 01-17-2024 End: 01-17-2024 Patient education based on identified need [facility] Start: 05-10-2023 End: 05-10-2023 Patient education based on identified need [facility] Start: 05-10-2023 Psychiatry [facility] Work Phone: Comment on above: Note: Please make a referral to: see if dr carney accepting now, otherwise ok with rd or get Start: 12-13-2022 FQHC visit, estab pt Medical E stablished Patient [facility] Work Phone: Start: 08-12-2022 End: 08-12-2022 Patient education based on identified need [facility] Start: 07-08-[address] Dlqgitayh-Dvhsaaoqp-Uvm chomonas [facility] Start: 07-07-2022 FQHC visit, estab pt Medical E stablished Patient [facility] Work Phone: Start: 06-16-2022 End: 06-16-2022 Patient education based on identified need [facility] offered active listening and supportive feedback; normalized emotions and feelings, also provided pt time to process any current stressors. ~Promoted and encouraged follow-through with scheduling psychiatric services [facility] Start: 06-15-2022 End: 06-15-2022 Patient education based on identified need [facility] Start: 06-13-2022 [facility] Start: 06-08-2022 FQHC visit, estab pt Ti [facility] Work Phone: Comment on above: Note: Please make a referral to: request dr carney Start: 06-08-2022 End: 06-08-2022 Patient education based on identified need [facility] Start: 05-27-2022 End: 05-27-2022 Patient education based on identified need [facility] introduced pt to [facility] integrated model of care ~[facility] offered active listening and supportive feedback; normalized emotions and feelings, also provided pt time to process any current stressors ~[facility]HP discussed potential benefits of counseling and supported re-engaging, as needed. ~[facility]HP encouraged pt to continue to make time to implement self-care regimen and use coping methods, as needed [facility] Start: 05-27-2022 CBC W Auto Different ial panel - Blood [facility] Start: 05-27-2022 Lipid 1996 panel - S mica or Plasma LIPID PROFILE [facility] Start: 05-27-2022 End: 05-27-2022 Patient education based on identified need [facility] Start: 05-23-2022 Influenza vaccination Flu vaccine (# 1) [facility] Start: 08-24-2021 COVID-19 Vaccine (3 - Booster for Pfizer series) COVID-19 Vaccine (3 - Booster for Pfizer series) [facility] Start: 08-14-2021 [facility] Start: 07-19-2021 FQHC visit, estab pt Medical E stablished Patient [facility] Work Phone: Start: 07-15-2021 [facility] Work Phone: Comment on above: Note: Please make a referral to: [address] [address]DT: [phone]: [phone] Note: Please make a referral to: [facility] , no longer wants to see derrell Start: 07-15-2021 End: 07-15-2021 Patient education based on identified need [facility] Start: 06-23-2021 Influenza vaccination M devi [facility] Work Phone: Start: 06-17-2021 End: 06-17-2021 Patient education based on identified need [facility] Start: 04-30-2021 SARS-CoV-2, [facility] Start: 04-23-2021 End: 04-23-2021 Patient education based on identified need [facility] Start: 04-01-2021 End: 04-01-2021 Patient education based on identified need [facility] Start: 03-17-2021 End: 03-17-2021 Patient education based on identified need [facility] Start: 06-24-2020 DTaP/Tdap/Td vaccine (7 - Td or Tdap) DTaP/Tdap/Td vaccine (7 - Td or Tdap) [facility] Start: 2020 Screening for malign ant neoplasm of cervix [facility] Start: 2018 DTaP/Tdap/Td vaccine (1 - Tdap) DTaP/Tdap/Td vaccine (1 - Tdap) [facility] Work Phone: Start: 2017 Hepatitis C screening Hepatitis C sc reen [facility] Start: 2015 Screening for Chlamy solitario trachomatis [facility] Start: 2014 HIV screening HIV screen [place] Work Phone: Start: 2011 COVID-19 Vaccine (1) COVID-19 Vaccin e (1) [facility] Work Phone: Start: 2011 [facility] Start: 2010 HPV vaccine (1 - 2-d ose series) HPV vaccine (1 - 2-dose series) [facility] Start: 2000 Varicella vaccine (1 of 2 - 2-dose childhood series) Varicella vaccine (1 of 2 - 2-dose childhood series) [facility] Start: 1999 Hepatitis C screening Hepatitis C [facility] Work Phone: End: 08-12-2022 C.trachomatis N.gonorrhoeae DNA, Urine [facility] Work Phone: Comment on above: Once for 1 Occurrenc es starting 08/12/2022 until 08/12/2022 EKG 12 Lead EKG 12 Lead ECG STAT 07/06/2021 3:18 PM EDT [facility] Work Phone: End: 08-12-2022 Trichomonas Vaginali, Molecular [facility] Work Phone: Comment on above: Once for 1 Occurrenc es starting 08/12/2022 until 08/12/2022 Immunizations Immunization Date Immunization Notes Care Provider Jennifer aljeo 09-06-2024 Human Papillomavirus 9-valent vaccine; Translations: [GARDASIL 9] Denny Lomeli [facility] Work Phone: [facility] Comment on above: Note: Patient tolera stephanie well. No signs or symptoms of adverse reactions. Patient waited a minimum of 15 minutes. 09-06-2024 Imm.Admin. over 18 y rs Any Route FIRST Injection Denny Lomeli [employer] Work Phone: [facility] 07-18-2024 influenza, injectabl e, quadrivalent, preservative free; Translations: [Fluarix] Denny Lomeli [employer] Work Phone: [facility] Comment on above: Note: Patient tolera stephanie well. No signs or symptoms of adverse reactions. Patient waited a minimum of 15 minutes. 07-18-2024 influenza, seasonal, injectable, preservative free; Translations: [Fluarix] Denny Lomeli [employer] Work Phone: [facility] Comment on above: Note: Patient tolera stephanie well. No signs or symptoms of adverse reactions. Patient waited a minimum of 15 minutes. 07-18-2024 Imm.Admin. over 18 y rs Any Route FIRST Injection (Rendering physician modifier) Denny Lomeli [employer] Work Phone: [facility] 06-13-2024 Human Papillomavirus 9-valent vaccine; Translations: [GARDASIL 9] Denny Lomeli [employer] Work Phone: [facility] 06-13-2024 pneumococcal vaccine , unspecified formulation Denny Lomeli [employer] Work Phone: [facility] Comment on above: Note: Patient tolera stephanie well. No signs or symptoms of adverse reactions. Patient waited a minimum of 15 minutes. 06-13-2024 Imm.Admin.Through 18 yrs Any Route FIRST Injection Denny Armani [employer] Work Phone: [facility] 06-13-2024 Ea.Addnl.Imm.Admin.T hroug h 17 yrs Any Route Denny Armani CHAVEZ Work Phone: [facility] 06-13-2024 VFC Imm. Admin. thro ugh 17 yrs Any Route per VFC Injection (Signi/Sep Eval. & Man.) Denny Armani CHAVEZ Work Phone: [facility] 08-12-2022 influenza, injectabl e, quadrivalent, preservative free; Translations: [Fluarix] Denny Lomeli [facility] Work Phone: [facility] Comment on above: Note: Patient tolera stephanie well. No signs or symptoms of adverse reactions. Patient waited a minimum of 15 minutes. 08-12-2022 influenza, seasonal, injectable, preservative free; Translations: [Fluarix] Denny Lomeli [facility] Work Phone: [facility] Comment on above: Note: Patient tolera stephanie well. No signs or symptoms of adverse reactions. Patient waited a minimum of 15 minutes. 08-12-2022 Imm.Admin. over 18 y rs Any Route FIRST Injection Denny Lomeli [facility] Work Phone: [facility] 06-29-2021 1st Dose PFIZER COVI D-19 Vaccine Denny Lomeli [facility] Work Phone: [facility] 06-08-2021 1st Dose PFIZER COVI D-19 Vaccine Denny Lomeli [facility] Work Phone: [facility] 06-29-2016 meningococcal oligosaccharide (groups A, C, Y and W-135) diphtheria toxoid conjugate vaccine (MCV4O) Denny Lomeli [facility] Work Phone: [facility] 06-24-2010 tetanus toxoid, redu messi diphtheria toxoid, and acellular pertussis vaccine, adsorbed Denny Lomeli [facility] Work Phone: [facility] 06-18-2004 measles, mumps and rubella virus vaccine Denny Lomeli [facility] Work Phone: [facility] 06-18-2004 poliovirus vaccine, inactivated Denny Lomeli [facility] Work Phone: [facility] 03-13-2000 measles, mumps and rubella virus vaccine Denny Lomeli [facility] Work Phone: [facility] 03-13-2000 poliovirus vaccine, inactivated Denny Lomeli [facility] Work Phone: [facility] 1999 haemophilus influenz ae type b conjugate and Hepatitis B vaccine Denny Lomeli [facility] Work Phone: [facility] 1999 poliovirus vaccine, inactivated Denny Lomeli [employer] Work Phone: [facility] 1999 diphtheria, tetanus toxoids and pertussis vaccine Denny Lomeli [facility] Work Phone: [facility] 1999 trivalent poliovirus vaccine, live, oral Denny Lomeli [employer] Work Phone: [facility] 1999 hepatitis B vaccine, pediatric or pediatric/adolescent dosage Denny Lomeli CNP Work Phone: [facility] 1999 hepatitis B vaccine, pediatric or pediatric/adolescent dosage Denny Lomeli CNP Work Phone: [facility] Payers Date Payer Category Payer Self-pay [id number] 2020 Unknown [id number] 1999 Unknown [id number] 2.16.84 [id number] 1999 Unknown [id number] 2.16.8 [id number] 1999 Unknown [id number] 2.16.8 [id number] 1999 Unknown [id number] 2.16.8 [id number] 1999 Unknown [id number] 2.16.8 [id number] 1999 Unknown [id number] 2.16.8 [id number] 1999 Unknown [id number] 2.16. [id number] 1999 Unknown [id number] 2.16.8 [id number] 1999 Unknown [id number] 2.16.8 [id number] 1999 Unknown [id number] 2.16.84 [id number] 1999 Unknown [id number] 2.16.84 [id number] 1999 Unknown [id number] 2.16.84 [id number] 1959 Private Health Insurance [id number] Unknown [id number] Unknown O [id number] Unknown [id number] 2.16.8 [id number] Social History Date Type Detail Facility Assertion Family problems (finding) [facility] [place] Problem situatio n relating to social and personal history (finding) [facility] [place] Emotional stress (finding) [facility] [place] Lives with paren ts (finding) [facility] [place] Social drinker (finding) [facility] Assertion Benzodiazepine m isuse (finding) [facility] [place] Sexually active (finding) [facility] [place] [facility] [place] Gender identity finding (finding) [facility] [place] Finding of sexua l orientation (finding) [facility] Tobacco smoking status Unknown if ever smoked [facility] Work Phone: Start: 08-09-2017 End: 04-09-2021 Tobacco smoking status NHIS Never smoker [employer] Work Phone: Start: 08-09-2017 End: 04-09-2021 Tobacco use and exposure Never used [employer] Start: 04-09-2021 End: 07-09-2021 Alcohol intake Ex-drinker (finding) [facility] Phone: Start: 04-09-2021 History SDOH Alcohol Frequency 1 [facility] Phone: Start: 1999 Sex Assigned At Not on file [facility] Phone: Exposure to SARS-CoV-2 (event) Not sure [facility] Assertion Smoking monitori ng status (finding) [facility] Work Phone: Assertion Cigarette smoker (finding) [facility] Assertion Light cigarette smoker (1-9 cigs/day) (finding) [facility] Assertion Exposure to poll ution (event) [facility] Start: 06-12-2020 Assertion Smoker (finding) [facility] Assertion Finding relating to sexual activity (finding) [facility] Assertion Homosexual behav ior (finding) [facility] Assertion Currently not se xually active (finding) [facility] Assertion Details of drug misuse behavior (observable entity) [facility] Assertion History of disor kyree (situation) [facility] Start: 2000 Sex Assigned At Female [facility] NEGATED: Highlighted row Assertion Current drinker of alcohol (finding) [facility] NEGATED: Highlighted row Assertion Finding relating to drug misuse behavior (finding) [facility] NEGATED: Highlighted row Assertion [facility] NEGATED: Highlighted row Assertion Exposure to pollution (event) [facility] Medical Equipment Procedure Code Equipment Code Equipment Origin al Text Equipment Identifier Dates Blood Glucose Te st In Vitro Strip [id number] Start: 06-13-2024 End: 07-01-2024 [employer] Lancets Miscellaneous [id number] Start: 06-13-2024 OneTouch Ultra I n Vitro Strip [id number] Start: 07-01-2024 End: 06-26-2025 Mental Status Date Assessment Result Facility 10-23-2019 Cognitive function A previous dhillon icide attempt 2019 with hospitalization at [address] [place] [address] Work Phone: Cognitive function Cognitive fun ctioning was normal Cognitive function finding (finding) [facility] Work Phone: Clinical Notes 03-17-2021 to 09-06-2024 Note Date & Type Note Facility 09-06-2024 Evaluation note Includes: Assessments for all patient encounters Findings [Z68.43 - Body mass index [BMI] 50.0-59.9, adult] assessment of body mass index Medical Established Patient with Denny Lomeli [employer] 09/06/2024 Last Documented On 4 5:25PM ; [facility] Encounter for Immunization Medical Estab lished Patient with Denny Lomeli [employer] 09/06/2024 Last Documented On 4 5:25PM ; [facility] Type 2 diabetes mellitus wit hout complication Medical Established Patient with Dennyartem Lomeli [employer] 09/06/2024 Last Documented On 4 5:25PM ; [facility] [D50.9 - Iron deficiency ane eduardo, unspecified] iron deficiency anemia Chart Update with Denny Lomeli [employer] 07/29/2024 Last Documented On 4 2:06PM ; [facility] Attention-deficit hyperactivity disorder Established Patient with Sarai Alberts HYDRATOR 07/18/2024 Last Documented On 4 4:15PM ; [facility] Bipolar I disorder, most rec ent episode, depressed - mild BH Established Patient with Sarai Alberts HYDRATOR 07/18/2024 Last Documented On 4 4:15PM ; [facility] Nicotine dependence BH Established Patient with Sarai Alberts HYDRATOR 07/18/2024 Last Documented On 4 4:15PM ; [facility] Post-traumatic stress disorder BH Establ ished Patient with Sarai Alberts HYDRATOR 07/18/2024 Last Documented On 4 4:15PM ; [facility] [Z68.43 - Body mass index [B CT] 50.0-59.9, adult] assessment of body mass index Medical Established Patient with Denny Lomeli [employer] 07/18/2024 Last Documented On 4 2:09PM ; [facility] Bipolar I disorder, most rec ent episode, depressed - mild Medical Established Patient with Denny Lomeli [employer] 07/18/2024 Last Documented On 4 2:09PM ; [facility] Caries Medical Established Patient with Denny Armani [employer] 07/18/2024 Last Documented On 4 2:09PM ; [facility] Encounter for Immunization Medical Estab lished Patient with Denny Armani [employer] 07/18/2024 Last Documented On 4 2:09PM ; [facility] Type 2 diabetes mellitus wit hout complication Medical Established Patient with Denny Armani [employer] 07/18/2024 Last Documented On 4 2:09PM ; [facility] Attention-deficit hyperactivity disorder BH Established Patient with Kinga Short [facility] 06/13/2024 Last Documented On 4 3:28PM ; [facility] Bipolar I disorder, most rec ent episode, depressed - mild BH Established Patient with Kinga Short LIS[facility] 06/13/2024 Last Documented On 4 3:28PM ; [facility] Post-traumatic stress disorder BH Establ ished Patient with Kinga Short [facility]IS[facility] 06/13/2024 Last Documented On 4 3:28PM ; [facility] [E11.9 - Type 2 diabetes gloria litus without complications] type 2 diabetes mellitus Medical Established Patient with Denny Lomeli [employer] 06/13/2024 Last Documented On 4 7:36PM ; [facility] [F41.1 - Generalized anxiety disorder] generalized anxiety disorder Medical Established Patient with Denny Lomeli [employer] 06/13/2024 Last Documented On 4 7:36PM ; [facility] [I10 - Essential (primary) hypertension] essential hypertension Medical Established Patient with Denny Armani [employer] 06/13/2024 Last Documented On 4 7:36PM ; [facility] [N94.6 - Dysmenorrhea, unspe cified] dysmenorrhea Medical Established Patient with Denny Armani [employer] 06/13/2024 Last Documented On 4 7:36PM ; [facility] [Z68.43 - Body mass index [B CT] 50.0-59.9, adult] assessment of body mass index Medical Established Patient with Dennyartem Lomeli [employer] 06/13/2024 Last Documented On 4 7:36PM ; [facility] Encounter for Immunization Medical Estab lished Patient with Denny Lomeli [employer] 06/13/2024 Last Documented On 4 7:36PM ; [facility] Venipuncture was performed Medical Estab lished Patient with Denny Lomeli [employer] 06/13/2024 Last Documented On 4 7:36PM ; [facility] Attention-deficit hyperactivity disorder Established Patient with Kinga Short LISWS 04/10/2024 Last Documented On 4 10:10AM ; [facility] Bipolar I disorder, most rec ent episode, depressed - mild Established Patient with Kinga Short LISWS 04/10/2024 Last Documented On 4 10:10AM ; [facility] Post-traumatic stress disorder Establ ished Patient with Kinga Short LISWS 04/10/2024 Last Documented On 4 10:10AM ; [facility] [D64.9 - Anemia, unspecified] anemia Med ical Established Patient with Denny Lomeli [employer] 04/10/2024 Last Documented On 4 6:51PM ; [facility] [Z68.43 - Body mass index [B CT] 50.0-59.9, adult] assessment of body mass index Medical Established Patient with Denny Lomeli [employer] 04/10/2024 Last Documented On 4 6:51PM ; [facility] Bipolar affective disorder, current episode depressed, mild Established Patient with Kinga Short LISWS 01/17/2024 Last Documented On 4 5:16PM ; [facility] Post-traumatic stress disorder Establ ished Patient with Kinga Short LISWS 01/17/2024 Last Documented On 4 5:16PM ; [facility] Undifferentiated attention d eficit disorder Established Patient with Kinga Short LISWS 01/17/2024 Last Documented On 4 5:16PM ; [facility] Visit for: screening for disorder Est ablished Patient with Kinga Short LISWS 01/17/2024 Last Documented On 4 5:16PM ; [facility] [Z68.43 - Body mass index [B CT] 50.0-59.9, adult] assessment of body mass index Medical Established Patient with Denny Lomeli [employer] 01/17/2024 Last Documented On 4 7:50PM ; [facility] Attention-deficit hyperactivity disorder Medical Established Patient with Denny Lomeli [employer] 01/17/2024 Last Documented On 4 7:50PM ; [facility] Diabetes Risk Test Score was three score 01/17/2024 Medical Established Patient with Denny Lomeli [employer] 01/17/2024 Last Documented On 4 7:50PM ; [facility] Visit for: screening for STD Medical Est ablished Patient with Denny Lomeli [employer] 01/17/2024 Last Documented On 4 7:50PM ; [facility] [Z68.32 - Body mass index [B CT] 32.0-32.9, adult] assessment of body mass index Medical Established Patient with Denny Lomeli [employer] 05/10/2023 Last Documented On 3 6:01PM ; [facility] Borderline personality disorder Medical Established Patient with Denny Lomeli [employer] 05/10/2023 Last Documented On 3 6:01PM ; [facility] Screening for diabetes mellitus Medical Established Patient with Denny Lomeli [employer] 05/10/2023 Last Documented On 3 6:01PM ; [facility] Assessment of body mass index Medical Es tablished Patient with Denny Lomeli [employer] 08/12/2022 Last Documented On 2 2:45PM ; [facility] Bipolar affective disorder, current episode manic Telebehavioral Health with Belkisdionna CoffeyVelarde LPCC-S 06/16/2022 Last Documented On 2 3:22PM ; [facility] Bipolar affective disorder, current episode manic BH Established Patient with Belkis Velarde LPCC-S 06/15/2022 Last Documented On 2 2:28PM ; [facility] Bipolar affective disorder, current episode depressed, severe with psychosis Telebehavioral Health with Belkisdionna Velarde LPCC-S 06/15/2022 Last Documented On 2 3:29PM ; [facility] Assessment of body mass inde x [Body mass index [BMI] 50.0-59.9, adult] Open Access - Established with Leah Monique [employer] 06/15/2022 Last Documented On 2 9:36AM ; [facility] Bipolar I disorder, most rec ent episode, manic Open Access - Established with Leah Monique [employer] 06/15/2022 Last Documented On 2 9:36AM ; [facility] Post-traumatic stress disorder BH Establ ished Patient with Belkis Velarde LPCC-S 06/08/2022 Last Documented On 2 3:20PM ; [facility] No cough Medical Established Patient with Denny Armani [employer] 06/08/2022 Last Documented On 2 4:04PM ; [facility] Z68.43 - Body mass index [BM I] 50.0-59.9, adult Medical Established Patient with Denny Armani [employer] 06/08/2022 Last Documented On 2 4:04PM ; [facility] Borderline personality disor kyree Pt reported hx of sx/dx Established Patient with Belkisdionna CoffeyVelarde LPCC-S 05/27/2022 Last Documented On 2 4:08PM ; [facility] Assessment of body mass inde x [Body mass index [BMI] 50.0-59.9, adult] Open Access - Established with Leah Monique [employer] 05/27/2022 Last Documented On 2 7:41PM ; [facility] Diabetes Risk Test Score was three score 05/27/2022 Open Access - Established with Leah Monique [employer] 05/27/2022 Last Documented On 2 7:41PM ; [facility] Bipolar I disorder, most rec ent episode, manic BH Established Patient with Eufemia Mcneil LPCC-S 07/15/2021 Last Documented On 1 1:35AM ; [facility] Borderline personality disorder BH Estab lished Patient with Eufemia Mcneil LPCC-S 07/15/2021 Last Documented On 1 1:35AM ; [facility] Post-traumatic stress disorder Establ ished Patient with Eufemia Spencemons LPCC-S 07/15/2021 Last Documented On 1 1:35AM ; [facility] Assessment of visit for: scr eening for human immunodeficiency virus Medical Established Patient with Denny Armani [employer] 07/15/2021 Last Documented On 1 2:56PM ; [facility] Nicotine dependence Medical Established Patient with Denny Armani [employer] 07/15/2021 Last Documented On 1 2:56PM ; [facility] Tachycardia Medical Established Patient with Denny Armani [employer] 07/15/2021 Last Documented On 1 2:56PM ; [facility] Z68.43 - Body mass index [BM I] 50.0-59.9, adult Medical Established Patient with Denny Armani [employer] 07/15/2021 Last Documented On 1 2:56PM ; [facility] Bipolar I disorder, most rec ent episode, manic Established Patient with Kinga Short LISWS 06/17/2021 Last Documented On 1 10:17AM ; [facility] Borderline personality disor kyree per patient reported history Established Patient with Kinga Short LISWS 06/17/2021 Last Documented On 1 10:17AM ; [facility] Nicotine dependence Established Patient with Kinga Short LISWS 06/17/2021 Last Documented On 1 10:17AM ; [facility] Post-traumatic stress disorder Establ ished Patient with Kinga Short LISWS 06/17/2021 Last Documented On 1 10:17AM ; [facility] Body mass index Medical Established Patient with Denny Armani [employer] 06/17/2021 Last Documented On 1 5:23PM ; [facility] Morbid obesity Medical Established Patient with Denny Armani [employer] 06/17/2021 Last Documented On 1 5:23PM ; [facility] Nicotine dependence uncomplicated Medica l Established Patient with Denny Armani [employer] 06/17/2021 Last Documented On 1 5:23PM ; [facility] Z68.42 - Body mass index [BM I] 45.0-49.9, adult Medical Established Patient with Denny Armani [employer] 06/17/2021 Last Documented On 1 5:23PM ; [facility] 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 disorders 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 [employer] 05/15/2021 Last Documented On 1 7:49AM ; [facility] Mood disorders, NOS per blaze ent reported history Established Patient with Kinga Short LISWS 04/23/2021 Last Documented On 1 7:15PM ; [facility] Post-traumatic stress disorder Establ ished Patient with Kinga Short LISWS 04/23/2021 Last Documented On 1 7:15PM ; [facility] Morbid obesity Medical Established Patient with Denny Armani [employer] 04/23/2021 Last Documented On 1 12:31PM ; [facility] Otitis externa Medical Established Patient with Denny Armani [employer] 04/23/2021 Last Documented On 1 12:31PM ; [facility] Z68.42 - Body mass index [BM I] 45.0-49.9, adult Medical Established Patient with Denny Armani [employer] 04/23/2021 Last Documented On 1 12:31PM ; [facility] Post-traumatic stress disorder Establ ished Patient with Kinga Short LISWS 04/01/2021 Last Documented On 1 10:05PM ; [facility] Morbid obesity Medical Established Patient with Denny Armani [employer] 04/01/2021 Last Documented On 1 4:45PM ; [facility] Z68.42 - Body mass index [BM I] 45.0-49.9, adult Medical Established Patient with Denny Armani [employer] 04/01/2021 Last Documented On 1 4:45PM ; [facility] Post-traumatic stress disorder Establ ished Patient with Kinga Short LISWS 03/17/2021 Last Documented On 1 11:59AM ; [facility] Assessment of visit for: scr eening for human immunodeficiency virus Medical New Patient with Denny Lomeli [employer] 03/17/2021 Last Documented On 1 4:06PM ; [facility] Diabetes Risk Test Score was one score 03/17/2021 Medical New Patient with Denny Lomeli [employer] 03/17/2021 Last Documented On 1 4:06PM ; [facility] Hypertension Medical New Patient with Denny doherty [employer] 03/17/2021 Last Documented On 1 4:06PM ; [facility] Morbid obesity Medical New Patient with Denny doherty [employer] 03/17/2021 Last Documented On 1 4:06PM ; [facility] Post-traumatic stress disorder Medical New Patie nt with Denny Lomeli [employer] 03/17/2021 Last Documented On 1 4:06PM ; [facility] Z68.42 - Body mass index [BM I] 45.0-49.9, adult Medical New Patient with Denny Lomeli CNP 03/17/2021 Last Documented On 1 4:06PM ; [facility] Work Phone: 1(876) 108-216011-15-2024 History general Narrative - Reported Includes: Medical History in patient's chart Description Last Updated History of gynecologic disorder endometr iosis 09/06/2024 Last Documented On 4 5:25PM ; [facility] No Safety Measures 07/22/2024 Last Documented On 4 4:15PM ; [facility] Consent form on file for procedure 07/18 Last Documented On 4 2:09PM ; [facility] POTS 04/10/2024 Last Documented On 4 6:51PM ; [facility] 0 previous live (s) 01/17/2024 Last Documented On 4 7:50PM ; [facility] Previously 1 time(s) 01/17/2024 Last Documented On 4 7:50PM ; [facility] Recent immunization for flu 01/17/2024 Last Documented On 4 7:50PM ; [facility] Has sex without a condom 06/08/2022 Last Documented On 2 4:04PM ; [facility] Not planning to have a baby in the next 12 months 06/08/2022 Last Documented On 2 4:04PM ; [facility] sexually transmitted infection status known 06/08/2022 Last Documented On 2 4:04PM ; [facility] No previous hospitalizations 06/08/2022 Last Documented On 2 4:04PM ; [facility] Chronic illness 05/17/2021 Last Documented On 1 7:49AM ; [facility] Exposure to COVID-19 04/23/2021 Last Documented On 1 12:31PM ; [facility] History of Polycystic Ovarian Syndrome ( PCOS) 03/17/2021 Last Documented On 1 4:06PM ; [facility] History of anxiety disorder NOS 03/17/20 21 Last Documented On 1 4:06PM ; [facility] History of migraine headache 03/17/2021 Last Documented On 1 4:06PM ; [facility] History of psychiatric disorders biopola r disorder 03/17/2021 Last Documented On 1 4:06PM ; [facility] Work Phone: 1(181) 915-130011-15-2024 Progress note* Progress note Date Encounter Last Documented by 09/06/2024 Medical Established Patient Last documented on 09/06/2024; 5:25 PM, Denny Lomeli CNP; [facility] Active Problems & Conditions - F90.9 - Attention-deficit Hyperactivity Disorder - F31.31 - Bipolar I Disorder, Most Recent Episode, Depressed Mild - E11.9 - Diabetes Mellitus Type 2 Without Complication - N94.6 - Dysmenorrhea - F43.10 - Post-traumatic Stress Disorder Chief Complaint The Chief Complaint is: One month med check. Patient reports seroquel is working to well. Would like to decrease dosage. Referred Here Not referred by urgent care clinic and not the emergency room. Prior encounters. - Data to be reviewed: no clinical lab tests History of Present Illness Cordelia Guaman is a 24 year old female. - Allergy list reviewed - Reviewed Medications - Medication list reviewed - Date of last menstruation 03/25/2024 - test - would not like a test Presents s/p procedure with dr donato , feeling much better now and has repeat labs in 2 weeks again , pre op on 10/09, wants seroquel decreased r/t sleeping 10-13 hours Current Medication - Alcohol Pads 70% use [...] Consent form on file for procedure. Diagnoses: Gynecologic disorder endometriosis Polycystic Ovarian Syndrome (PCOS). Migraine headache. Psychiatric disorders biopolar disorder Anxiety disorder POTS. Procedural: - Insertion of ear pressure equalization tubes in both ears Surgical: - Tonsillectomy - Tonsillectomy with adenoidectomy - Dilation and curettage 08/16/24 Dr. Donato Social History Environmental Exposure: Secondhand cigarette smoke exposure. Behavioral: Not a current tobacco user. Tobacco use: Using electronic cigarettes/vaping. Alcohol: Not using alcohol. Drug Use: Not using drugs denied by patient. Sexual: Sexually active, sexual orientation Lesbian or Shin, and gender identity Other. No report of control being practiced. Allergies - Abilify Reaction: groggy - Augmentin [...] No psychological symptoms. Skin: No skin symptoms. Physical Findings - Vitals taken 09/06/2024 04:36 pm BP-Sitting R120/84 mmHg BP Cuff SizeLarge Pulse Rate-Ryyyail185 bpm Respiration Rate18 per min Temp-Oral98.3 F Zxpyot77 in Dhkdmf207 lbs 6.4 oz Body Mass Index56.5 kg/m2 Body Surface Area2.4 m2 Oxygen Owylgycvwn15 % - Vitals taken 09/06/2024 04:58 pm BP-Sitting R149/83 mmHg BP Cuff SizeLarge Vital Signs: - Systolic blood pressure < 130 mmHg. - Diastolic blood pressure 80-89 mmHg. [...] of all extremities. Skin: - General appearance of skin normal. Tests Blood Analysis: Hemoglobin Studies: ValueDate Blood hemoglobin A1c 7.4%09/06/2024 Blood Endocrine Laboratory Tests: Value Blood glucose level by fingerstick Non-fasting 163 mg/dl Laboratory-based Chemistry: Urine Tests: Value Urine microalbumin dipstick test was 80 + Urine albumin/creatinine by test strip 30-300. Other Laboratory Tests: Screening for sexually transmitted infections was not performed. Assessment - Z68.43 - Body mass index [BMI] 50.0-59.9, adult - Z23 - Encounter for immunization - E11.9 - Type 2 diabetes mellitus without complications Previous Tests Laboratory Studies: Renal Function: Glomerular filtration rate 08/13/2024 >60. Therapy - Immunization administration, by injection, one vaccine. Vaccinations - HPV-Gardasil 9 Dose #2 Status: Administered Date: 09/06/2024 - Received dose of human papilloma virus vaccine Counseling/Education - Does not want to stop using current contraception - Wishing to stop using electronic cigarettes/vaping - Discussed nutritional needs teach healthy choices including fruits and vegetables - Patient education about a proper diet - Not requesting contraception - Discussed concerns about exercise: promote physical activity Plan StartCited- Other Follow-up Appointment dec 16 for hpv #3 EndCited Keep all upcoming appts , report to ER for any emergent symptoms. Practice Management Hemoglobin A1c level >=7.0 and < 8.0%. Care Team - Denny Lomeli CNP Health Reminders - Assess BMI satisfied 09/06/2024. - Assess Tobacco Use satisfied 09/06/2024. - Follow Up Plan BMI Management satisfied 09/06/2024. - Hemoglobin A1c satisfied 09/06/2024. - Urine Protein Screening (microalbumin) satisfied 09/06/2024. User Defined 1 Not planning a in the next year. [facility]24 Evaluation note Includes: Assessments for all patient encounters Findings Encounter Date [D50.9 - Iron deficiency ane eduardo, unspecified] iron deficiency anemia Chart Update with Denny Lomeli CNP 07/29/2024 Last Documented On 4 2:06PM ; [facility] Attention-deficit hyperactivity disorder Established Patient with Sarai Alberts [facility] 07/18/2024 Last Documented On 4 4:15PM ; [facility] Bipolar I disorder, most rec ent episode, depressed - mild Established Patient with Sarai Alberts [facility] 07/18/2024 Last Documented On 4 4:15PM ; [facility] Nicotine dependence Established Patient with Sarai Alberts [facility] 07/18/2024 Last Documented On 4 4:15PM ; [facility] Post-traumatic stress disorder Establ ished Patient with Sarai Aristeo [facility] 07/18/2024 Last Documented On 4 4:15PM ; [facility] [Z68.43 - Body mass index [B CT] 50.0-59.9, adult] assessment of body mass index Medical Established Patient with Denny Lomeli CNP 07/18/2024 Last Documented On 4 2:09PM ; [facility] Bipolar I disorder, most rec ent episode, depressed - mild Medical Established Patient with Denny Armani [employer] 07/18/2024 Last Documented On 4 2:09PM ; [facility] Caries Medical Established Patient with Denny Armani [employer] 07/18/2024 Last Documented On 4 2:09PM ; [facility] Encounter for Immunization Medical Estab lished Patient with Denny Armani [employer] 07/18/2024 Last Documented On 4 2:09PM ; [facility] Type 2 diabetes mellitus wit hout complication Medical Established Patient with Denny Armani [employer] 07/18/2024 Last Documented On 4 2:09PM ; [facility] Attention-deficit hyperactivity disorder Established Patient with Kinga Short LISWS 06/13/2024 Last Documented On 4 3:28PM ; [facility] Bipolar I disorder, most rec ent episode, depressed - mild BH Established Patient with Kinga Short LISWS 06/13/2024 Last Documented On 4 3:28PM ; [facility] Post-traumatic stress disorder BH Establ ished Patient with Kinga Short LISWS 06/13/2024 Last Documented On 4 3:28PM ; [facility] [E11.9 - Type 2 diabetes gloria litus without complications] type 2 diabetes mellitus Medical Established Patient with Denny Armani [employer] 06/13/2024 Last Documented On 4 7:36PM ; [facility] [F41.1 - Generalized anxiety disorder] generalized anxiety disorder Medical Established Patient with Denny Armani [employer] 06/13/2024 Last Documented On 4 7:36PM ; [facility] [I10 - Essential (primary) hypertension] essential hypertension Medical Established Patient with Denny Armani [employer] 06/13/2024 Last Documented On 4 7:36PM ; [facility] [N94.6 - Dysmenorrhea, unspe cified] dysmenorrhea Medical Established Patient with Denny Armani [employer] 06/13/2024 Last Documented On 4 7:36PM ; [facility] [Z68.43 - Body mass index [B CT] 50.0-59.9, adult] assessment of body mass index Medical Established Patient with Denny Lomeli [employer] 06/13/2024 Last Documented On 4 7:36PM ; [facility] Encounter for Immunization Medical Estab lished Patient with Denny Lomeli [employer] 06/13/2024 Last Documented On 4 7:36PM ; [facility] Venipuncture was performed Medical Estab lished Patient with Denny Lomeli [employer] 06/13/2024 Last Documented On 4 7:36PM ; [facility] Attention-deficit hyperactivity disorder Established Patient with Kinga Short LISWS 04/10/2024 Last Documented On 4 10:10AM ; [facility] Bipolar I disorder, most rec ent episode, depressed - mild Established Patient with Kinga Short LISWS 04/10/2024 Last Documented On 4 10:10AM ; [facility] Post-traumatic stress disorder Establ ished Patient with Kinga Short LISWS 04/10/2024 Last Documented On 4 10:10AM ; [facility] [D64.9 - Anemia, unspecified] anemia Med ica Established Patient with Denny Lomeli [employer] 04/10/2024 Last Documented On 4 6:51PM ; [facility] [Z68.43 - Body mass index [B CT] 50.0-59.9, adult] assessment of body mass index Medical Established Patient with Denny Lomeli [employer] 04/10/2024 Last Documented On 4 6:51PM ; [facility] Bipolar affective disorder, current episode depressed, mild Established Patient with Kinga Short LISWS 01/17/2024 Last Documented On 4 5:16PM ; [facility] Post-traumatic stress disorder Establ ished Patient with Kinga Short LISWS 01/17/2024 Last Documented On 4 5:16PM ; [facility] Undifferentiated attention d eficit disorder Established Patient with Kinga Short LISWS 01/17/2024 Last Documented On 4 5:16PM ; [facility] Visit for: screening for disorder BH Est ablished Patient with iKnga Bourgeois LISWS 01/17/2024 Last Documented On 4 5:16PM ; [facility] [Z68.43 - Body mass index [B CT] 50.0-59.9, adult] assessment of body mass index Medical Established Patient with Denny Lomeli [employer] 01/17/2024 Last Documented On 4 7:50PM ; [facility] Attention-deficit hyperactivity disorder Medical Established Patient with Denny Lomeli [employer] 01/17/2024 Last Documented On 4 7:50PM ; [facility] Diabetes Risk Test Score was three score 01/17/2024 Medical Established Patient with Denny Lomeli [employer] 01/17/2024 Last Documented On 4 7:50PM ; [facility] Visit for: screening for STD Medical Est ablished Patient with Denny Lomeli [employer] 01/17/2024 Last Documented On 4 7:50PM ; [facility] [Z68.32 - Body mass index [B CT] 32.0-32.9, adult] assessment of body mass index Medical Established Patient with Denny Lomeli [employer] 05/10/2023 Last Documented On 3 6:01PM ; [facility] Borderline personality disorder Medical Established Patient with Denny Lomeli [employer] 05/10/2023 Last Documented On 3 6:01PM ; [facility] Screening for diabetes mellitus Medical Established Patient with Denny Lomeli [employer] 05/10/2023 Last Documented On 3 6:01PM ; [facility] Assessment of body mass index Medical Es tablished Patient with Denny Lomeli [employer] 08/12/2022 Last Documented On 2 2:45PM ; [facility] Bipolar affective disorder, current episode manic Telebehavioral Health with Belkis Velarde LPCC-S 06/16/2022 Last Documented On 2 3:22PM ; [facility] Bipolar affective disorder, current episode manic Established Patient with Belkis Velarde LPCC-S 06/15/2022 Last Documented On 2 2:28PM ; [facility] Bipolar affective disorder, current episode depressed, severe with psychosis Telebehavioral Health with Belkis Velarde LPCC-S 06/15/2022 Last Documented On 2 3:29PM ; [facility] Assessment of body mass inde x [Body mass index [BMI] 50.0-59.9, adult] Open Access - Established with Leah Monique [employer] 06/15/2022 Last Documented On 2 9:36AM ; [facility] Bipolar I disorder, most rec ent episode, manic Open Access - Established with Leah Monique [employer] 06/15/2022 Last Documented On 2 9:36AM ; [facility] Post-traumatic stress disorder Establ ished Patient with Belkisdionna Velarde LPCC-S 06/08/2022 Last Documented On 2 3:20PM ; [facility] No cough Medical Established Patient with Dennyartem Landonen [employer] 06/08/2022 Last Documented On 2 4:04PM ; [facility] Z68.43 - Body mass index [BM I] 50.0-59.9, adult Medical Established Patient with Denny Armani [employer] 06/08/2022 Last Documented On 2 4:04PM ; [facility] Borderline personality disor kyree Pt reported hx of sx/dx Established Patient with Belkis Velarde LPCC-S 05/27/2022 Last Documented On 2 4:08PM ; [facility] Assessment of body mass inde x [Body mass index [BMI] 50.0-59.9, adult] Open Access - Established with Leah Monique [employer] 05/27/2022 Last Documented On 2 7:41PM ; [facility] Diabetes Risk Test Score was three score 05/27/2022 Open Access - Established with Leah Monique [employer] 05/27/2022 Last Documented On 2 7:41PM ; [facility] Bipolar I disorder, most rec ent episode, manic Established Patient with Eufemia Mcneil LPCC-S 07/15/2021 Last Documented On 1 1:35AM ; [facility] Borderline personality disorder BH Estab lished Patient with Eufemia Mcneil LPCC-S 07/15/2021 Last Documented On 1 1:35AM ; [facility] Post-traumatic stress disorder Establ ished Patient with Eufemia Mcneil LPCC-S 07/15/2021 Last Documented On 1 1:35AM ; [facility] Assessment of visit for: lloyd strange for human immunodeficiency virus Medical Established Patient with Denny Armani [employer] 07/15/2021 Last Documented On 1 2:56PM ; [facility] Nicotine dependence Medical Established Patient with Denny Armani [employer] 07/15/2021 Last Documented On 1 2:56PM ; [facility] Tachycardia Medical Established Patient with Denny Armani [employer] 07/15/2021 Last Documented On 1 2:56PM ; [facility] Z68.43 - Body mass index [BM I] 50.0-59.9, adult Medical Established Patient with Denny Armani [employer] 07/15/2021 Last Documented On 1 2:56PM ; [facility] Bipolar I disorder, most rec ent episode, manic Established Patient with Kinga Short LISWS 06/17/2021 Last Documented On 1 10:17AM ; [facility] Borderline personality disor kyree per patient reported history Established Patient with Kinga Short LISWS 06/17/2021 Last Documented On 1 10:17AM ; [facility] Nicotine dependence Established Patient with Kinga Short LISWS 06/17/2021 Last Documented On 1 10:17AM ; [facility] Post-traumatic stress disorder Establ ished Patient with Kinga Short LISWS 06/17/2021 Last Documented On 1 10:17AM ; [facility] Body mass index Medical Established Patient with Denny Armani [employer] 06/17/2021 Last Documented On 1 5:23PM ; [facility] Morbid obesity Medical Established Patient with Denny Armani [employer] 06/17/2021 Last Documented On 1 5:23PM ; [facility] Nicotine dependence uncomplicated Medica l Established Patient with Denny Armani [employer] 06/17/2021 Last Documented On 1 5:23PM ; [facility] Z68.42 - Body mass index [BM I] 45.0-49.9, adult Medical Established Patient with Denny Armani [employer] 06/17/2021 Last Documented On 1 5:23PM ; [facility] 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 disorders [employer] Worker with eTagan Danielsarlyn zuniga [employer] 05/15/2021 Last Documented On 1 7:49AM ; [facility] Mood disorders, NOS per blaze ent reported history Established Patient with Kinga Short LISWS 04/23/2021 Last Documented On 1 7:15PM ; [facility] Post-traumatic stress disorder Establ ished Patient with Kinga Short LISWS 04/23/2021 Last Documented On 1 7:15PM ; [facility] Morbid obesity Medical Established Patient with Denny Armani [employer] 04/23/2021 Last Documented On 1 12:31PM ; [facility] Otitis externa Medical Established Patient with Denny Armani [employer] 04/23/2021 Last Documented On 1 12:31PM ; [facility] Z68.42 - Body mass index [BM I] 45.0-49.9, adult Medical Established Patient with Denny Armani [employer] 04/23/2021 Last Documented On 1 12:31PM ; [facility] Post-traumatic stress disorder Establ ished Patient with Kinga Short LISWS 04/01/2021 Last Documented On 1 10:05PM ; [facility] Morbid obesity Medical Established Patient with Denny Armani [employer] 04/01/2021 Last Documented On 1 4:45PM ; [facility] Z68.42 - Body mass index [BM I] 45.0-49.9, adult Medical Established Patient with Denny Armani [employer] 04/01/2021 Last Documented On 1 4:45PM ; [facility] Post-traumatic stress disorder Establ ished Patient with Kinga Short LISWS 03/17/2021 Last Documented On 1 11:59AM ; [facility] Assessment of visit for: lloyd strange for human immunodeficiency virus Medical New Patient with Denny Lomeli [employer] 03/17/2021 Last Documented On 1 4:06PM ; [facility] Diabetes Risk Test Score was one score 03/17/2021 Medical New Patient with Denny Lomeli [employer] 03/17/2021 Last Documented On 1 4:06PM ; [facility] Hypertension Medical New Patient with Denny doherty [employer] 03/17/2021 Last Documented On 1 4:06PM ; [facility] Morbid obesity Medical New Patient with Denny doherty [employer] 03/17/2021 Last Documented On 1 4:06PM ; [facility] Post-traumatic stress disorder Medical New Patie nt with Denny Lomeli [employer] 03/17/2021 Last Documented On 1 4:06PM ; [facility] Z68.42 - Body mass index [BM I] 45.0-49.9, adult Medical New Patient with Denny Lomeli [employer] 03/17/2021 Last Documented On 1 4:06PM ; [facility] Work Phone: 1(214) 424-917810-07-2024 Evaluation note Includes: Assessments for all patient encounters Findings Encounter Date [D50.9 - Iron deficiency ane eduardo, unspecified] iron deficiency anemia Chart Update with Denny Lomeli [employer] 07/29/2024 Last Documented On 4 2:06PM ; [facility] Attention-deficit hyperactivity disorder Established Patient with Sarai Alberts HYDRATOR 07/18/2024 Last Documented On 4 4:15PM ; [facility] Bipolar I disorder, most rec ent episode, depressed - mild Established Patient with Sarai Alberts HYDRATOR 07/18/2024 Last Documented On 4 4:15PM ; [facility] Nicotine dependence Established Patient with Sarai Alberts HYDRATOR 07/18/2024 Last Documented On 4 4:15PM ; [facility] Post-traumatic stress disorder BH Establ ished Patient with Sarai Alberts HYDRATOR 07/18/2024 Last Documented On 4 4:15PM ; [facility] [Z68.43 - Body mass index [B CT] 50.0-59.9, adult] assessment of body mass index Medical Established Patient with Dennyartem Landonen [employer] 07/18/2024 Last Documented On 4 1:56PM ; [facility] Bipolar I disorder, most rec ent episode, depressed - mild Medical Established Patient with Denny Armani [employer] 07/18/2024 Last Documented On 4 1:56PM ; [facility] Caries Medical Established Patient with Denny Armani [employer] 07/18/2024 Last Documented On 4 1:56PM ; [facility] Encounter for Immunization Medical Estab lished Patient with Denny Armani [employer] 07/18/2024 Last Documented On 4 1:56PM ; [facility] Type 2 diabetes mellitus wit hout complication Medical Established Patient with Denny Armani [employer] 07/18/2024 Last Documented On 4 1:56PM ; [facility] Attention-deficit hyperactivity disorder Established Patient with Kinga Short LISWS 06/13/2024 Last Documented On 4 3:28PM ; [facility] Bipolar I disorder, most rec ent episode, depressed - mild Established Patient with Kinga Short LISWS 06/13/2024 Last Documented On 4 3:28PM ; [facility] Post-traumatic stress disorder Establ ished Patient with Kinga Short LISWS 06/13/2024 Last Documented On 4 3:28PM ; [facility] [E11.9 - Type 2 diabetes gloria litus without complications] type 2 diabetes mellitus Medical Established Patient with Denny Armani [employer] 06/13/2024 Last Documented On 4 7:36PM ; [facility] [F41.1 - Generalized anxiety disorder] generalized anxiety disorder Medical Established Patient with Denny Armani [employer] 06/13/2024 Last Documented On 4 7:36PM ; [facility] [I10 - Essential (primary) hypertension] essential hypertension Medical Established Patient with Denny Lomeli [employer] 06/13/2024 Last Documented On 4 7:36PM ; [facility] [N94.6 - Dysmenorrhea, unspe cified] dysmenorrhea Medical Established Patient with Denny Lomeli [employer] 06/13/2024 Last Documented On 4 7:36PM ; [facility] [Z68.43 - Body mass index [B CT] 50.0-59.9, adult] assessment of body mass index Medical Established Patient with Denny Lomeli [employer] 06/13/2024 Last Documented On 4 7:36PM ; [facility] Encounter for Immunization Medical Estab lished Patient with Denny Lomeli [employer] 06/13/2024 Last Documented On 4 7:36PM ; [facility] Venipuncture was performed Medical Estab lished Patient with Denny Lomeli [employer] 06/13/2024 Last Documented On 4 7:36PM ; [facility] Attention-deficit hyperactivity disorder Established Patient with Kinga Short LISWS 04/10/2024 Last Documented On 4 10:10AM ; [facility] Bipolar I disorder, most rec ent episode, depressed - mild BH Established Patient with Kinga Short LISWS 04/10/2024 Last Documented On 4 10:10AM ; [facility] Post-traumatic stress disorder BH Establ ished Patient with Kinga Short LISWS 04/10/2024 Last Documented On 4 10:10AM ; [facility] [D64.9 - Anemia, unspecified] anemia Med ical Established Patient with Denny Lomeli [employer] 04/10/2024 Last Documented On 4 6:51PM ; [facility] [Z68.43 - Body mass index [B CT] 50.0-59.9, adult] assessment of body mass index Medical Established Patient with Denny Lomeli [employer] 04/10/2024 Last Documented On 4 6:51PM ; [facility] Bipolar affective disorder, current episode depressed, mild BH Established Patient with Kinga Bourgeois LISWS 01/17/2024 Last Documented On 4 5:16PM ; [facility] Post-traumatic stress disorder BH Establ ished Patient with Kinga Short LISWS 01/17/2024 Last Documented On 4 5:16PM ; [facility] Undifferentiated attention d eficit disorder Established Patient with Kinga Short LISWS 01/17/2024 Last Documented On 4 5:16PM ; [facility] Visit for: screening for disorder BH Est ablished Patient with Kinga Bourgeois LISWS 01/17/2024 Last Documented On 4 5:16PM ; [facility] [Z68.43 - Body mass index [B CT] 50.0-59.9, adult] assessment of body mass index Medical Established Patient with Denny Lomeli [employer] 01/17/2024 Last Documented On 4 7:50PM ; [facility] Attention-deficit hyperactivity disorder Medical Established Patient with Denny Lomeli [employer] 01/17/2024 Last Documented On 4 7:50PM ; [facility] Diabetes Risk Test Score was three score 01/17/2024 Medical Established Patient with Denny Lomeli [employer] 01/17/2024 Last Documented On 4 7:50PM ; [facility] Visit for: screening for STD Medical Est ablished Patient with Denny Lomeli [employer] 01/17/2024 Last Documented On 4 7:50PM ; [facility] [Z68.32 - Body mass index [B CT] 32.0-32.9, adult] assessment of body mass index Medical Established Patient with eDnny Lomeli VP [employer] 05/10/2023 Last Documented On 3 6:01PM ; [facility] Borderline personality disorder Medical Established Patient with Denny Lomeli [employer] 05/10/2023 Last Documented On 3 6:01PM ; [facility] Screening for diabetes mellitus Medical Established Patient with Denny Lomeli [employer] 05/10/2023 Last Documented On 3 6:01PM ; [facility] Assessment of body mass index Medical Es tablished Patient with Dennyartem Lomeli [employer] 08/12/2022 Last Documented On 2 2:45PM ; [facility] Bipolar affective disorder, current episode manic Telebehavioral Health with Belkisdionna Velarde LPCC-S 06/16/2022 Last Documented On 2 3:22PM ; [facility] Bipolar affective disorder, current episode manic BH Established Patient with Belkis Velarde LPCC-S 06/15/2022 Last Documented On 2 2:28PM ; [facility] Bipolar affective disorder, current episode depressed, severe with psychosis [facility] with Belkisdionna Velarde LPCC-S 06/15/2022 Last Documented On 2 3:29PM ; [facility] Assessment of body mass inde x [Body mass index [BMI] 50.0-59.9, adult] Open Access - Established with Leah Amaya [employer] 06/15/2022 Last Documented On 2 9:36AM ; [facility] Bipolar I disorder, most rec ent episode, manic Open Access - Established with Leah Monique [employer] 06/15/2022 Last Documented On 2 9:36AM ; [facility] Post-traumatic stress disorder Establ ished Patient with Belkisdionna Velarde LPCC-S 06/08/2022 Last Documented On 2 3:20PM ; [facility] No cough Medical Established Patient with Dennyartem Lomeli [employer] 06/08/2022 Last Documented On 2 4:04PM ; [facility] Z68.43 - Body mass index [BM I] 50.0-59.9, adult Medical Established Patient with Denny Armani [employer] 06/08/2022 Last Documented On 2 4:04PM ; [facility] Borderline personality disor kyree Pt reported hx of sx/dx BH Established Patient with Belkisdionna Velarde LPCC-S 05/27/2022 Last Documented On 2 4:08PM ; [facility] Assessment of body mass inde x [Body mass index [BMI] 50.0-59.9, adult] Open Access - Established with Leah Porraser [employer] 05/27/2022 Last Documented On 2 7:41PM ; [facility] Diabetes Risk Test Score was three score 05/27/2022 Open Access - Established with Leah Monique [facility] 05/27/2022 Last Documented On 2 7:41PM ; [facility] Bipolar I disorder, most rec ent episode, manic Established Patient with Eufemia Mcneil LPCC-S 07/15/2021 Last Documented On 1 1:35AM ; [facility] Borderline personality disorder Estab lished Patient with Eufemia Mcneil LPCC-S 07/15/2021 Last Documented On 1 1:35AM ; [facility] Post-traumatic stress disorder Establ ished Patient with Eufemia Mcneil LPCC-S 07/15/2021 Last Documented On 1 1:35AM ; [facility] Assessment of visit for: lloyd strange for human immunodeficiency virus Medical Established Patient with Denny Armani [facility] 07/15/2021 Last Documented On 1 2:56PM ; [facility] Nicotine dependence Medical Established Patient with Denny Armani [employer] 07/15/2021 Last Documented On 1 2:56PM ; [facility] Tachycardia Medical Established Patient with Denny Armani [employer] 07/15/2021 Last Documented On 1 2:56PM ; [facility] Z68.43 - Body mass index [BM I] 50.0-59.9, adult Medical Established Patient with Denny Armani [employer] 07/15/2021 Last Documented On 1 2:56PM ; [facility] Bipolar I disorder, most rec ent episode, manic Established Patient with Kniga Short LISWS 06/17/2021 Last Documented On 1 10:17AM ; [facility] Borderline personality disor kyree per patient reported history Established Patient with Kinga Short LISWS 06/17/2021 Last Documented On 1 10:17AM ; [facility] Nicotine dependence Established Patient with Kinga Short LISWS 06/17/2021 Last Documented On 1 10:17AM ; [facility] Post-traumatic stress disorder Establ ished Patient with Kinga Short LISWS 06/17/2021 Last Documented On 1 10:17AM ; [facility] Body mass index Medical Established Patient with Denny Armani [employer] 06/17/2021 Last Documented On 1 5:23PM ; [facility] Morbid obesity Medical Established Patient with Denny Armani [employer] 06/17/2021 Last Documented On 1 5:23PM ; [facility] Nicotine dependence uncomplicated Medica l Established Patient with Denny Armani [employer] 06/17/2021 Last Documented On 1 5:23PM ; [facility] Z68.42 - Body mass index [BM I] 45.0-49.9, adult Medical Established Patient with Denny Armani [employer] 06/17/2021 Last Documented On 1 5:23PM ; [facility] 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 disorders 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 [employer] 05/15/2021 Last Documented On 1 7:49AM ; [facility] Mood disorders, NOS per blaze ent reported history Established Patient with Kinga Short LISWS 04/23/2021 Last Documented On 1 7:15PM ; [facility] Post-traumatic stress disorder Establ ished Patient with Kinga Short LISWS 04/23/2021 Last Documented On 1 7:15PM ; [facility] Morbid obesity Medical Established Patient with Denny Armani [employer] 04/23/2021 Last Documented On 1 12:31PM ; [facility] Otitis externa Medical Established Patient with Denny Armani [employer] 04/23/2021 Last Documented On 1 12:31PM ; [facility] Z68.42 - Body mass index [BM I] 45.0-49.9, adult Medical Established Patient with Denny Armani [employer] 04/23/2021 Last Documented On 1 12:31PM ; [facility] Post-traumatic stress disorder Establ ished Patient with Kinga Short LISWS 04/01/2021 Last Documented On 1 10:05PM ; [facility] Morbid obesity Medical Established Patient with Dennyartem Lomeli [employer] 04/01/2021 Last Documented On 1 4:45PM ; [facility] Z68.42 - Body mass index [BM I] 45.0-49.9, adult Medical Established Patient with Denny Armani [employer] 04/01/2021 Last Documented On 1 4:45PM ; [facility] Post-traumatic stress disorder BH Establ ished Patient with Kinga Short LISWS 03/17/2021 Last Documented On 1 11:59AM ; [facility] Assessment of visit for: lloyd strange for human immunodeficiency virus Medical New Patient with Denny Armani [employer] 03/17/2021 Last Documented On 1 4:06PM ; [facility] Diabetes Risk Test Score was one score 03/17/2021 Medical New Patient with Denny Armani [employer] 03/17/2021 Last Documented On 1 4:06PM ; [facility] Hypertension Medical New Patient with Denny C chas [employer] 03/17/2021 Last Documented On 1 4:06PM ; [facility] Morbid obesity Medical New Patient with Denny C chas [employer] 03/17/2021 Last Documented On 1 4:06PM ; [facility] Post-traumatic stress disorder Medical New Patie nt with Denny Armani [employer] 03/17/2021 Last Documented On 1 4:06PM ; [facility] Z68.42 - Body mass index [BM I] 45.0-49.9, adult Medical New Patient with Denny Armani [employer] 03/17/2021 Last Documented On 1 4:06PM ; [facility] Work Phone: 1(582) 118-145310-07-2024 Progress note* Progress note Date Encounter Last Documented by 07/29/2024 Chart Update Last documented on 07/31/2024; 2:06 PM, Denny Lomeli CNP; [facility] Active Problems & Conditions - F90.9 [...] EndCited Care Team - Denny Lomeli CNP [facility]10-01-2024 Progress note* Progress note Date Encounter Last Documented by 07/23/2024 Chart Update Last documented on 07/29/2024; 12:06 PM, Denny Lomeli CNP; [facility] Active Problems & Conditions - F90.9 [...] disorders Care Team - Denny Lomeli CNP [facility]09-30-2024 History general Narrative - Reported Includes: Medical History in patient's chart Description Last Updated No Safety Measures 07/22/2024 Last Documented On 4 4:15PM ; [facility] POTS 04/10/2024 Last Documented On 4 6:51PM ; [facility] 0 previous live (s) 01/17/2024 Last Documented On 4 7:50PM ; [facility] Previously 1 time(s) 01/17/2024 Last Documented On 4 7:50PM ; [facility] Recent immunization for flu 01/17/2024 Last Documented On 4 7:50PM ; [facility] Has sex without a condom 06/08/2022 Last Documented On 2 4:04PM ; [facility] Not planning to have a baby in the next 12 months 06/08/2022 Last Documented On 2 4:04PM ; [facility] sexually transmitted infection status known 06/08/2022 Last Documented On 2 4:04PM ; [facility] No previous hospitalizations 06/08/2022 Last Documented On 2 4:04PM ; [facility] Chronic illness 05/17/2021 Last Documented On 1 7:49AM ; [facility] Exposure to COVID-19 04/23/2021 Last Documented On 1 12:31PM ; [facility] History of gynecologic disorder 03/17/20 21 Last Documented On 1 4:06PM ; [facility] History of Polycystic Ovarian Syndrome ( PCOS) 03/17/2021 Last Documented On 1 4:06PM ; [facility] History of anxiety disorder NOS 03/17/20 21 Last Documented On 1 4:06PM ; [facility] History of migraine headache 03/17/2021 Last Documented On 1 4:06PM ; [facility] History of psychiatric disorders biopola r disorder 03/17/2021 Last Documented On 1 4:06PM ; [facility] Work Phone: 1(144) 743-740809-30-2024 History general Narrative - Reported Includes: Medical History in patient's chart Description Last Updated No Safety Measures 07/22/2024 Last Documented On 4 4:15PM ; [facility] Consent form on file for procedure 07/18 Last Documented On 4 1:56PM ; [facility] POTS 04/10/2024 Last Documented On 4 6:51PM ; [facility] 0 previous live (s) 01/17/2024 Last Documented On 4 7:50PM ; [facility] Previously 1 time(s) 01/17/2024 Last Documented On 4 7:50PM ; [facility] Recent immunization for flu 01/17/2024 Last Documented On 4 7:50PM ; [facility] Has sex without a condom 06/08/2022 Last Documented On 2 4:04PM ; [facility] Not planning to have a baby in the next 12 months 06/08/2022 Last Documented On 2 4:04PM ; [facility] sexually transmitted infection status known 06/08/2022 Last Documented On 2 4:04PM ; [facility] No previous hospitalizations 06/08/2022 Last Documented On 2 4:04PM ; [facility] Chronic illness 05/17/2021 Last Documented On 1 7:49AM ; [facility] Exposure to COVID-19 04/23/2021 Last Documented On 1 12:31PM ; [facility] History of gynecologic disorder 03/17/20 21 Last Documented On 1 4:06PM ; [facility] History of Polycystic Ovarian Syndrome ( PCOS) 03/17/2021 Last Documented On 1 4:06PM ; [facility] History of anxiety disorder NOS 03/17/20 21 Last Documented On 1 4:06PM ; [facility] History of migraine headache 03/17/2021 Last Documented On 1 4:06PM ; [facility] History of psychiatric disorders biopola r disorder 03/17/2021 Last Documented On 1 4:06PM ; [facility] Work Phone: 1(126) 607-108809-30-2024 History general Narrative - Reported Includes: Medical History in patient's chart Description Last Updated No Safety Measures 07/22/2024 Last Documented On 4 4:15PM ; [facility] Consent form on file for procedure 07/18 Last Documented On 4 1:56PM ; [facility] POTS 04/10/2024 Last Documented On 4 6:51PM ; [facility] 0 previous live (s) 01/17/2024 Last Documented On 4 7:50PM ; [facility] Previously 1 time(s) 01/17/2024 Last Documented On 4 7:50PM ; [facility] Recent immunization for flu 01/17/2024 Last Documented On 4 7:50PM ; [facility] Has sex without a condom 06/08/2022 Last Documented On 2 4:04PM ; [facility] Not planning to have a baby in the next 12 months 06/08/2022 Last Documented On 2 4:04PM ; [facility] sexually transmitted infection status known 06/08/2022 Last Documented On 2 4:04PM ; [facility] No previous hospitalizations 06/08/2022 Last Documented On 2 4:04PM ; [facility] Chronic illness 05/17/2021 Last Documented On 1 7:49AM ; [facility] Exposure to COVID-19 04/23/2021 Last Documented On 1 12:31PM ; [facility] History of gynecologic disorder 03/17/20 21 Last Documented On 1 4:06PM ; [facility] History of Polycystic Ovarian Syndrome ( PCOS) 03/17/2021 Last Documented On 1 4:06PM ; [facility] History of anxiety disorder NOS 03/17/20 21 Last Documented On 1 4:06PM ; [facility] History of migraine headache 03/17/2021 Last Documented On 1 4:06PM ; [facility] History of psychiatric disorders biopola r disorder 03/17/2021 Last Documented On 1 4:06PM ; [facility] Work Phone: 1(731) 765-529209-30-2024 History general Narrative - Reported Includes: Medical History in patient's chart Description Last Updated No Safety Measures 07/22/2024 Last Documented On 4 4:15PM ; [facility] Consent form on file for procedure 07/18 Last Documented On 4 2:09PM ; [facility] POTS 04/10/2024 Last Documented On 4 6:51PM ; [facility] 0 previous live (s) 01/17/2024 Last Documented On 4 7:50PM ; [facility] Previously 1 time(s) 01/17/2024 Last Documented On 4 7:50PM ; [facility] Recent immunization for flu 01/17/2024 Last Documented On 4 7:50PM ; [facility] Has sex without a condom 06/08/2022 Last Documented On 2 4:04PM ; [facility] Not planning to have a baby in the next 12 months 06/08/2022 Last Documented On 2 4:04PM ; [facility] sexually transmitted infection status known 06/08/2022 Last Documented On 2 4:04PM ; [facility] No previous hospitalizations 06/08/2022 Last Documented On 2 4:04PM ; [facility] Chronic illness 05/17/2021 Last Documented On 1 7:49AM ; [facility] Exposure to COVID-19 04/23/2021 Last Documented On 1 12:31PM ; [facility] History of gynecologic disorder 03/17/20 21 Last Documented On 1 4:06PM ; [facility] History of Polycystic Ovarian Syndrome ( PCOS) 03/17/2021 Last Documented On 1 4:06PM ; [facility] History of anxiety disorder NOS 03/17/20 21 Last Documented On 1 4:06PM ; [facility] History of migraine headache 03/17/2021 Last Documented On 1 4:06PM ; [facility] History of psychiatric disorders biopola r disorder 03/17/2021 Last Documented On 1 4:06PM ; [facility] Work Phone: 1(920) 797-833609-30-2024 History general Narrative - Reported Includes: Medical History in patient's chart Description Last Updated No Safety Measures 07/22/2024 Last Documented On 4 4:15PM ; [facility] Consent form on file for procedure 07/18 Last Documented On 4 1:56PM ; [facility] POTS 04/10/2024 Last Documented On 4 6:51PM ; [facility] 0 previous live (s) 01/17/2024 Last Documented On 4 7:50PM ; [facility] Previously 1 time(s) 01/17/2024 Last Documented On 4 7:50PM ; [facility] Recent immunization for flu 01/17/2024 Last Documented On 4 7:50PM ; [facility] Has sex without a condom 06/08/2022 Last Documented On 2 4:04PM ; [facility] Not planning to have a baby in the next 12 months 06/08/2022 Last Documented On 2 4:04PM ; [facility] sexually transmitted infection status known 06/08/2022 Last Documented On 2 4:04PM ; [facility] No previous hospitalizations 06/08/2022 Last Documented On 2 4:04PM ; [facility] Chronic illness 05/17/2021 Last Documented On 1 7:49AM ; [facility] Exposure to COVID-19 04/23/2021 Last Documented On 1 12:31PM ; [facility] History of gynecologic disorder 03/17/20 21 Last Documented On 1 4:06PM ; [facility] History of Polycystic Ovarian Syndrome ( PCOS) 03/17/2021 Last Documented On 1 4:06PM ; [facility] History of anxiety disorder NOS 03/17/20 21 Last Documented On 1 4:06PM ; [facility] History of migraine headache 03/17/2021 Last Documented On 1 4:06PM ; [facility] History of psychiatric disorders biopola r disorder 03/17/2021 Last Documented On 1 4:06PM ; [facility] Work Phone: 1(369) 718-962009-26-2024 Evaluation note Includes: Assessments for all patient encounters Findings Encounter Date Attention-deficit hyperactiv ity disorder Established Patient with Sarai Alberts HYDRATOR 07/18/2024 Last Documented On 4 4:15PM ; [facility] Bipolar I disorder, most rec ent episode, depressed - mild Established Patient with Sarai Alberts HYDRATOR 07/18/2024 Last Documented On 4 4:15PM ; [facility] Nicotine dependence Established Patient with Saraifiliberto Alberts HYDRATOR 07/18/2024 Last Documented On 4 4:15PM ; [facility] Post-traumatic stress disorder Establ ished Patient with Sarai Alberts HYDRATOR 07/18/2024 Last Documented On 4 4:15PM ; [facility] [Z68.43 - Body mass index [B CT] 50.0-59.9, adult] assessment of body mass index Medical Established Patient with Denny Lomeli [employer] 07/18/2024 Last Documented On 4 5:46PM ; [facility] Bipolar I disorder, most rec ent episode, depressed - mild Medical Established Patient with Denny Armani [employer] 07/18/2024 Last Documented On 4 5:46PM ; [facility] Caries Medical Established Patient with Denny Armani [employer] 07/18/2024 Last Documented On 4 5:46PM ; [facility] Encounter for Immunization Medical Estab lished Patient with Denny Armani [employer] 07/18/2024 Last Documented On 4 5:46PM ; [facility] Type 2 diabetes mellitus wit hout complication Medical Established Patient with Denny Armani [employer] 07/18/2024 Last Documented On 4 5:46PM ; [facility] Attention-deficit hyperactivity disorder Established Patient with Kinga Short LISWS 06/13/2024 Last Documented On 4 3:28PM ; [facility] Bipolar I disorder, most rec ent episode, depressed - mild Established Patient with Kinga Short LISWS 06/13/2024 Last Documented On 4 3:28PM ; [facility] Post-traumatic stress disorder Establ ished Patient with Kinga Short LISWS 06/13/2024 Last Documented On 4 3:28PM ; [facility] [E11.9 - Type 2 diabetes gloria litus without complications] type 2 diabetes mellitus Medical Established Patient with Denny Lomeli [employer] 06/13/2024 Last Documented On 4 7:36PM ; [facility] [F41.1 - Generalized anxiety disorder] generalized anxiety disorder Medical Established Patient with Denny Lomeli [employer] 06/13/2024 Last Documented On 4 7:36PM ; [facility] [I10 - Essential (primary) hypertension] essential hypertension Medical Established Patient with Denny Lomeli [employer] 06/13/2024 Last Documented On 4 7:36PM ; [facility] [N94.6 - Dysmenorrhea, unspe cified] dysmenorrhea Medical Established Patient with Denny Lomeli [employer] 06/13/2024 Last Documented On 4 7:36PM ; [facility] [Z68.43 - Body mass index [B CT] 50.0-59.9, adult] assessment of body mass index Medical Established Patient with Denny Lomeli [employer] 06/13/2024 Last Documented On 4 7:36PM ; [facility] Encounter for Immunization Medical Estab lished Patient with Denny Lomeli [employer] 06/13/2024 Last Documented On 4 7:36PM ; [facility] Venipuncture was performed Medical Estab lished Patient with Denny Lomeli [employer] 06/13/2024 Last Documented On 4 7:36PM ; [facility] Attention-deficit hyperactivity disorder Established Patient with Kinga Short LISWS 04/10/2024 Last Documented On 4 10:10AM ; [facility] Bipolar I disorder, most rec ent episode, depressed - mild Established Patient with Kinga Short LISWS 04/10/2024 Last Documented On 4 10:10AM ; [facility] Post-traumatic stress disorder Establ ished Patient with Kinga Short LISWS 04/10/2024 Last Documented On 4 10:10AM ; [facility] [D64.9 - Anemia, unspecified] anemia Med ical Established Patient with Denny Lomeli [employer] 04/10/2024 Last Documented On 4 6:51PM ; [facility] [Z68.43 - Body mass index [B CT] 50.0-59.9, adult] assessment of body mass index Medical Established Patient with Denny Lomeli [employer] 04/10/2024 Last Documented On 4 6:51PM ; [facility] Bipolar affective disorder, current episode depressed, mild Established Patient with Kinga Short LISWS 01/17/2024 Last Documented On 4 5:16PM ; [facility] Post-traumatic stress disorder Establ ished Patient with Kinga Short LISWS 01/17/2024 Last Documented On 4 5:16PM ; [facility] Undifferentiated attention d eficit disorder Established Patient with Kinga Short LISWS 01/17/2024 Last Documented On 4 5:16PM ; [facility] Visit for: screening for disorder BH Est ablished Patient with Kinga Short LISWS 01/17/2024 Last Documented On 4 5:16PM ; [facility] [Z68.43 - Body mass index [B CT] 50.0-59.9, adult] assessment of body mass index Medical Established Patient with Denny Lomeli [employer] 01/17/2024 Last Documented On 4 7:50PM ; [facility] Attention-deficit hyperactivity disorder Medical Established Patient with Denny Lomeli [employer] 01/17/2024 Last Documented On 4 7:50PM ; [facility] Diabetes Risk Test Score was three score 01/17/2024 Medical Established Patient with Denny Lomeli [employer] 01/17/2024 Last Documented On 4 7:50PM ; [facility] Visit for: screening for STD Medical Est ablished Patient with Denny Lomeli [employer] 01/17/2024 Last Documented On 4 7:50PM ; [facility] [Z68.32 - Body mass index [B CT] 32.0-32.9, adult] assessment of body mass index Medical Established Patient with Denny Lomeli [employer] 05/10/2023 Last Documented On 3 6:01PM ; [facility] Borderline personality disorder Medical Established Patient with Dennyartem Lomeli [employer] 05/10/2023 Last Documented On 3 6:01PM ; [facility] Screening for diabetes mellitus Medical Established Patient with Dennyartem Lomeli [employer] 05/10/2023 Last Documented On 3 6:01PM ; [facility] Assessment of body mass index Medical Es tablished Patient with Dennyartem Lomeli [employer] 08/12/2022 Last Documented On 2 2:45PM ; [facility] Bipolar affective disorder, current episode manic [facility] with Belkis Velarde [facility] 06/16/2022 Last Documented On 2 3:22PM ; [facility] Bipolar affective disorder, current episode manic Established Patient with Belkis Velarde [facility] 06/15/2022 Last Documented On 2 2:28PM ; [facility] Bipolar affective disorder, current episode depressed, severe with psychosis [facility] with Belkis Velarde [facility] 06/15/2022 Last Documented On 2 3:29PM ; [facility] Assessment of body mass inde x [Body mass index [BMI] 50.0-59.9, adult] Open Access - Established with Leah Monique [employer] 06/15/2022 Last Documented On 2 9:36AM ; [facility] Bipolar I disorder, most rec ent episode, manic Open Access - Established with Leah Monique [employer] 06/15/2022 Last Documented On 2 9:36AM ; [facility] Post-traumatic stress disorder BH Establ ished Patient with Belkis Velarde [facility] 06/08/2022 Last Documented On 2 3:20PM ; [facility] No cough Medical Established Patient with Dennyartem Landonen [employer] 06/08/2022 Last Documented On 2 4:04PM ; [facility] Z68.43 - Body mass index [BM I] 50.0-59.9, adult Medical Established Patient with Denny Armani [facility] 06/08/2022 Last Documented On 2 4:04PM ; [facility] Borderline personality disor kyree Pt reported hx of sx/dx Established Patient with Belkis Velarde [facility] 05/27/2022 Last Documented On 2 4:08PM ; [facility] Assessment of body mass inde x [Body mass index [BMI] 50.0-59.9, adult] Open Access - Established with Leah Monique [facility] 05/27/2022 Last Documented On 2 7:41PM ; [facility] Diabetes Risk Test Score was three score 05/27/2022 Open Access - Established with Leah Monique [facility] 05/27/2022 Last Documented On 2 7:41PM ; [facility] Bipolar I disorder, most rec ent episode, manic Established Patient with Eufemia Mcneil [facility] 07/15/2021 Last Documented On 1 1:35AM ; [facility] Borderline personality disorder Estab lished Patient with Euefmia Mcneil [facility] 07/15/2021 Last Documented On 1 1:35AM ; [facility] Post-traumatic stress disorder Establ ished Patient with Eufemia Mcneil [facility] 07/15/2021 Last Documented On 1 1:35AM ; [facility] Assessment of visit for: lloyd eening for human immunodeficiency virus Medical Established Patient with Denny Armani [facility] 07/15/2021 Last Documented On 1 2:56PM ; [facility] Nicotine dependence Medical Established Patient with Denny Armani [facility] 07/15/2021 Last Documented On 1 2:56PM ; [facility] Tachycardia Medical Established Patient with Denny Armani [facility] 07/15/2021 Last Documented On 1 2:56PM ; [facility] Z68.43 - Body mass index [BM I] 50.0-59.9, adult Medical Established Patient with Denny Armani [facility] 07/15/2021 Last Documented On 1 2:56PM ; [facility] Bipolar I disorder, most rec ent episode, manic Established Patient with Kinga Short LISWS 06/17/2021 Last Documented On 1 10:17AM ; [facility] Borderline personality disor kyree per patient reported history Established Patient with Kinga Short LISWS 06/17/2021 Last Documented On 1 10:17AM ; [facility] Nicotine dependence BH Established Patient with Kinga Short LISWS 06/17/2021 Last Documented On 1 10:17AM ; [facility] Post-traumatic stress disorder Establ ished Patient with Kinga Short LISWS 06/17/2021 Last Documented On 1 10:17AM ; [facility] Body mass index Medical Established Patient with Denny Armani [employer] 06/17/2021 Last Documented On 1 5:23PM ; [facility] Morbid obesity Medical Established Patient with Denny Armani [employer] 06/17/2021 Last Documented On 1 5:23PM ; [facility] Nicotine dependence uncomplicated Medica l Established Patient with Denny Armani [employer] 06/17/2021 Last Documented On 1 5:23PM ; [facility] Z68.42 - Body mass index [BM I] 45.0-49.9, adult Medical Established Patient with Denny Armani [employer] 06/17/2021 Last Documented On 1 5:23PM ; [facility] 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 disorders 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 [employer] 05/15/2021 Last Documented On 1 7:49AM ; [facility] Mood disorders, NOS per blaze ent reported history Established Patient with Kinga Short LISWS 04/23/2021 Last Documented On 1 7:15PM ; [facility] Post-traumatic stress disorder Establ ished Patient with Kinga Short LISWS 04/23/2021 Last Documented On 1 7:15PM ; [facility] Morbid obesity Medical Established Patient with Denny Armani [employer] 04/23/2021 Last Documented On 1 12:31PM ; [facility] Otitis externa Medical Established Patient with Denny Armani [employer] 04/23/2021 Last Documented On 1 12:31PM ; [facility] Z68.42 - Body mass index [BM I] 45.0-49.9, adult Medical Established Patient with Denny Armani [employer] 04/23/2021 Last Documented On 1 12:31PM ; [facility] Post-traumatic stress disorder Establ ished Patient with Kinga Short LISWS 04/01/2021 Last Documented On 1 10:05PM ; [facility] Morbid obesity Medical Established Patient with Denny Armani [employer] 04/01/2021 Last Documented On 1 4:45PM ; [facility] Z68.42 - Body mass index [BM I] 45.0-49.9, adult Medical Established Patient with Denny Armani [employer] 04/01/2021 Last Documented On 1 4:45PM ; [facility] Post-traumatic stress [facility] Establ ished Patient with Kinga Short LISWS 03/17/2021 Last Documented On 1 11:59AM ; [facility] Assessment of visit for: lloyd strange for human immunodeficiency virus Medical New Patient with Denny Armani [employer] 03/17/2021 Last Documented On 1 4:06PM ; [facility] Diabetes Risk Test Score was one score 03/17/2021 Medical New Patient with Denny Armani [employer] 03/17/2021 Last Documented On 1 4:06PM ; [facility] Hypertension Medical New Patient with Denny C chas [employer] 03/17/2021 Last Documented On 1 4:06PM ; [facility] Morbid obesity Medical New Patient with Denny C chas [employer] 03/17/2021 Last Documented On 1 4:06PM ; [facility] Post-traumatic stress disorder Medical New Patie nt with Denny Armani [employer] 03/17/2021 Last Documented On 1 4:06PM ; [facility] Z68.42 - Body mass index [BM I] 45.0-49.9, adult Medical New Patient with Denny Lomeli [employer] 03/17/2021 Last Documented On 1 4:06PM ; [facility] Work Phone: 1(200) 281-171609-26-2024 Evaluation note Includes: Assessments for all patient encounters Findings Encounter Date Attention-deficit hyperactiv ity disorder Established Patient with Saraifiliberto Alberts HYDRATOR 07/18/2024 Last Documented On 4 4:15PM ; [facility] Bipolar I disorder, most rec ent episode, depressed - mild Established Patient with Sarai Alberts HYDRATOR 07/18/2024 Last Documented On 4 4:15PM ; [facility] Nicotine dependence Established Patient with Sarai Alberts HYDRATOR 07/18/2024 Last Documented On 4 4:15PM ; [facility] Post-traumatic stress disorder Establ ished Patient with Sarai Alberts HYDRATOR 07/18/2024 Last Documented On 4 4:15PM ; [facility] [Z68.43 - Body mass index [B CT] 50.0-59.9, adult] assessment of body mass index Medical Established Patient with Denny Lomeli [employer] 07/18/2024 Last Documented On 4 1:56PM ; [facility] Bipolar I disorder, most rec ent episode, depressed - mild Medical Established Patient with Denny Armani [employer] 07/18/2024 Last Documented On 4 1:56PM ; [facility] Caries Medical Established Patient with Denny Armani [employer] 07/18/2024 Last Documented On 4 1:56PM ; [facility] Encounter for Immunization Medical Estab lished Patient with Denny Armani [employer] 07/18/2024 Last Documented On 4 1:56PM ; [facility] Type 2 diabetes mellitus wit hout complication Medical Established Patient with Denny Armani [employer] 07/18/2024 Last Documented On 4 1:56PM ; [facility] Attention-deficit hyperactivity disorder Established Patient with Kinga Short LISWS 06/13/2024 Last Documented On 4 3:28PM ; [facility] Bipolar I disorder, most rec ent episode, depressed - mild BH Established Patient with Kinga Short LISWS 06/13/2024 Last Documented On 4 3:28PM ; [facility] Post-traumatic stress disorder BH Establ ished Patient with Kinga Short LISWS 06/13/2024 Last Documented On 4 3:28PM ; [facility] [E11.9 - Type 2 diabetes gloria litus without complications] type 2 diabetes mellitus Medical Established Patient with Denny Lomeli [employer] 06/13/2024 Last Documented On 4 7:36PM ; [facility] [F41.1 - Generalized anxiety disorder] generalized anxiety disorder Medical Established Patient with Denny Lomeli [employer] 06/13/2024 Last Documented On 4 7:36PM ; [facility] [I10 - Essential (primary) hypertension] essential hypertension Medical Established Patient with Denny Lomeli [employer] 06/13/2024 Last Documented On 4 7:36PM ; [facility] [N94.6 - Dysmenorrhea, unspe cified] dysmenorrhea Medical Established Patient with Denny Lomeli [employer] 06/13/2024 Last Documented On 4 7:36PM ; [facility] [Z68.43 - Body mass index [B CT] 50.0-59.9, adult] assessment of body mass index Medical Established Patient with Denny Lomeli [employer] 06/13/2024 Last Documented On 4 7:36PM ; [facility] Encounter for Immunization Medical Estab lished Patient with Denny Armani [employer] 06/13/2024 Last Documented On 4 7:36PM ; [facility] Venipuncture was performed Medical Estab lished Patient with Denny Armani [employer] 06/13/2024 Last Documented On 4 7:36PM ; [facility] Attention-deficit hyperactivity disorder Established Patient with Kinga Short LISWS 04/10/2024 Last Documented On 4 10:10AM ; [facility] Bipolar I disorder, most rec ent episode, depressed - mild Established Patient with Kinga Short LISWS 04/10/2024 Last Documented On 4 10:10AM ; [facility] Post-traumatic stress disorder BH Establ ished Patient with Kinga Short LISWS 04/10/2024 Last Documented On 4 10:10AM ; [facility] [D64.9 - Anemia, unspecified] anemia Med ical Established Patient with Denny Lomeli [employer] 04/10/2024 Last Documented On 4 6:51PM ; [facility] [Z68.43 - Body mass index [B CT] 50.0-59.9, adult] assessment of body mass index Medical Established Patient with Denny Lomeli [employer] 04/10/2024 Last Documented On 4 6:51PM ; [facility] Bipolar affective disorder, current episode depressed, mild Established Patient with Kinga Short LISWS 01/17/2024 Last Documented On 4 5:16PM ; [facility] Post-traumatic stress disorder Establ ished Patient with Kinga Short LISWS 01/17/2024 Last Documented On 4 5:16PM ; [facility] Undifferentiated attention d eficit disorder Established Patient with Kinga Short LISWS 01/17/2024 Last Documented On 4 5:16PM ; [facility] Visit for: screening for disorder BH Est ablished Patient with Kinga Short LISWS 01/17/2024 Last Documented On 4 5:16PM ; [facility] [Z68.43 - Body mass index [B CT] 50.0-59.9, adult] assessment of body mass index Medical Established Patient with Denny Lomeli [employer] 01/17/2024 Last Documented On 4 7:50PM ; [facility] Attention-deficit hyperactivity disorder Medical Established Patient with Denny Lomeli [employer] 01/17/2024 Last Documented On 4 7:50PM ; [facility] Diabetes Risk Test Score was three score 01/17/2024 Medical Established Patient with Denny Lomeli [employer] 01/17/2024 Last Documented On 4 7:50PM ; [facility] Visit for: screening for STD Medical Est ablished Patient with Denny Lomeli [employer] 01/17/2024 Last Documented On 4 7:50PM ; [facility] [Z68.32 - Body mass index [B CT] 32.0-32.9, adult] assessment of body mass index Medical Established Patient with Denny Lomeli [employer] 05/10/2023 Last Documented On 3 6:01PM ; [facility] Borderline personality disorder Medical Established Patient with Denny Lomeli [employer] 05/10/2023 Last Documented On 3 6:01PM ; [facility] Screening for diabetes mellitus Medical Established Patient with Denny Lomeli [employer] 05/10/2023 Last Documented On 3 6:01PM ; [facility] Assessment of body mass index Medical Es tablished Patient with Denny Lomeli [employer] 08/12/2022 Last Documented On 2 2:45PM ; [facility] Bipolar affective disorder, current episode manic Telebehavioral Health with Belkis Velarde [facility] 06/16/2022 Last Documented On 2 3:22PM ; [facility] Bipolar affective disorder, current episode manic Established Patient with Belkis Velarde [facility] 06/15/2022 Last Documented On 2 2:28PM ; [facility] Bipolar affective disorder, current episode depressed, severe with psychosis Telebehavioral Health with Belkis Velarde [facility] 06/15/2022 Last Documented On 2 3:29PM ; [facility] Assessment of body mass inde x [Body mass index [BMI] 50.0-59.9, adult] Open Access - Established with Leah Monique [employer] 06/15/2022 Last Documented On 2 9:36AM ; [facility] Bipolar I disorder, most rec ent episode, manic Open Access - Established with Leah Monique [employer] 06/15/2022 Last Documented On 2 9:36AM ; [facility] Post-traumatic stress disorder BH Establ ished Patient with Belkis Velarde [facility] 06/08/2022 Last Documented On 2 3:20PM ; [facility] No cough Medical Established Patient with Denny Armani [facility] 06/08/2022 Last Documented On 2 4:04PM ; [facility] Z68.43 - Body mass index [BM I] 50.0-59.9, adult Medical Established Patient with Denny Armani [facility] 06/08/2022 Last Documented On 2 4:04PM ; [facility] Borderline personality disor kyree Pt reported hx of sx/dx Established Patient with Belkis Velarde [facility] 05/27/2022 Last Documented On 2 4:08PM ; [facility] Assessment of body mass inde x [Body mass index [BMI] 50.0-59.9, adult] Open Access - Established with Leahsharon Amaya [facility] 05/27/2022 Last Documented On 2 7:41PM ; [facility] Diabetes Risk Test Score was three score 05/27/2022 Open Access - Established with Leah Monique [facility] 05/27/2022 Last Documented On 2 7:41PM ; [facility] Bipolar I disorder, most rec ent episode, manic Established Patient with Eufemia Mcneil [facility] 07/15/2021 Last Documented On 1 1:35AM ; [facility] Borderline personality disorder Estab lished Patient with Eufemia Mcneil [facility] 07/15/2021 Last Documented On 1 1:35AM ; [facility] Post-traumatic stress disorder Establ ished Patient with Eufemia Mcneil [facility] 07/15/2021 Last Documented On 1 1:35AM ; [facility] Assessment of visit for: scr eening for human immunodeficiency virus Medical Established Patient with Dennyartem Landonen [facility] 07/15/2021 Last Documented On 1 2:56PM ; [facility] Nicotine dependence Medical Established Patient with Denny Armani [facility] 07/15/2021 Last Documented On 1 2:56PM ; [facility] Tachycardia Medical Established Patient with Denny Armani [facility] 07/15/2021 Last Documented On 1 2:56PM ; [facility] Z68.43 - Body mass index [BM I] 50.0-59.9, adult Medical Established Patient with Dennyartem Lomeli [employer] 07/15/2021 Last Documented On 1 2:56PM ; [facility] Bipolar I disorder, most rec ent episode, manic Established Patient with Kinga Short LISWS 06/17/2021 Last Documented On 1 10:17AM ; [facility] Borderline personality disor kyree per patient reported history Established Patient with Kinga Short LISWS 06/17/2021 Last Documented On 1 10:17AM ; [facility] Nicotine dependence BH Established Patient with Kinga Short LISWS 06/17/2021 Last Documented On 1 10:17AM ; [facility] Post-traumatic stress disorder Establ ished Patient with Kinga Short LISWS 06/17/2021 Last Documented On 1 10:17AM ; [facility] Body mass index Medical Established Patient with Denny Armani [employer] 06/17/2021 Last Documented On 1 5:23PM ; [facility] Morbid obesity Medical Established Patient with Denny Armani [employer] 06/17/2021 Last Documented On 1 5:23PM ; [facility] Nicotine dependence uncomplicated Medica l Established Patient with Denny Armani [employer] 06/17/2021 Last Documented On 1 5:23PM ; [facility] Z68.42 - Body mass index [BM I] 45.0-49.9, adult Medical Established Patient with Denny Armani [employer] 06/17/2021 Last Documented On 1 5:23PM ; [facility] 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 disorders 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 [employer] 05/15/2021 Last Documented On 1 7:49AM ; [facility] Mood disorders, NOS per blaze ent reported history Established Patient with Kinga Short LISWS 04/23/2021 Last Documented On 1 7:15PM ; [facility] Post-traumatic stress disorder Establ ished Patient with Kinga Short LISWS 04/23/2021 Last Documented On 1 7:15PM ; [facility] Morbid obesity Medical Established Patient with Denny Armani [employer] 04/23/2021 Last Documented On 1 12:31PM ; [facility] Otitis externa Medical Established Patient with Denny Armani [employer] 04/23/2021 Last Documented On 1 12:31PM ; [facility] Z68.42 - Body mass index [BM I] 45.0-49.9, adult Medical Established Patient with Denny Armani [employer] 04/23/2021 Last Documented On 1 12:31PM ; [facility] Post-traumatic stress disorder Establ ished Patient with Kinga Short LISWS 04/01/2021 Last Documented On 1 10:05PM ; [facility] Morbid obesity Medical Established Patient with Denny Armani [employer] 04/01/2021 Last Documented On 1 4:45PM ; [facility] Z68.42 - Body mass index [BM I] 45.0-49.9, adult Medical Established Patient with Denny Armani [employer] 04/01/2021 Last Documented On 1 4:45PM ; [facility] Post-traumatic stress disorder Establ ished Patient with Kinga Short LISWS 03/17/2021 Last Documented On 1 11:59AM ; [facility] Assessment of visit for: scr eening for human immunodeficiency virus Medical New Patient with Denny Lomeli [employer] 03/17/2021 Last Documented On 1 4:06PM ; [facility] Diabetes Risk Test Score was one score 03/17/2021 Medical New Patient with Dennyartem Lomeli [employer] 03/17/2021 Last Documented On 1 4:06PM ; [facility] Hypertension Medical New Patient with Denny Maryjo zamoraen [employer] 03/17/2021 Last Documented On 1 4:06PM ; [facility] Morbid obesity Medical New Patient with Denny C chas [employer] 03/17/2021 Last Documented On 1 4:06PM ; [facility] Post-traumatic stress disorder Medical New Patie nt with Denny Lomeli [employer] 03/17/2021 Last Documented On 1 4:06PM ; [facility] Z68.42 - Body mass index [BM I] 45.0-49.9, adult Medical New Patient with Denny Lomeli [employer] 03/17/2021 Last Documented On 1 4:06PM ; [facility] Work Phone: 1(657) 902-987809-26-2024 Progress note* Progress note Date Encounter Last Documented by 07/18/2024 Established Patient Last docu mented on 07/22/2024; 4:15 PM, Sarai MORRIS; [facility] Active Problems & Conditions - F90.9 - Attention-deficit Hyperactivity Disorder - F31.31 - Bipolar I Disorder, Most Recent Episode, Depressed Mild - E11.9 - Diabetes Mellitus Type 2 Without Complication - N94.6 - Dysmenorrhea - F43.10 - Post-traumatic Stress Disorder Subjective [facility] met with patient for mood and medications. [...] agreed to go with her walking. Discussed [facility] patient the benefits of seeing a psychiatrist [...] symptoms persist, 1 days, 0 refills - [employer] Ultra In Vitro Strip USE ONE TEST [...] of things, or get along? Very difficult. [facility]09-26-2024 Progress note* Progress note Date Encounter Last Documented by 07/18/2024 Medical Established Patient Last documented on 07/26/2024; 1:56 PM, Denny Lomeli CNP; [facility] Active Problems & Conditions - F90.9 [...] symptoms persist, 1 days, 0 refills - [employer] Ultra In Vitro Strip USE ONE TEST [...] BP-Sitting L135/86 mmHg BP Cuff SizeLarge Pulse Rate-Bvydbzd320 bpm Respiration Rate18 per min Temp-Oral97.6 F Vzbrgd92 in Uapqim314 lbs Body Mass Index57.2 kg/m2 Body Surface Area2.4 m2 Oxygen Xcpcmizyek23 % Vital Signs: - Systolic blood pressure [...] the next year. Bottom of Document Illustration [facility]09-26-2024 Progress note* Progress note Date Encounter Last Documented by 07/18/2024 Medical Established Patient Last documented on 07/31/2024; 2:09 PM, Denny Lomeli CNP; [facility] Active Problems & Conditions - F90.9 [...] BP-Sitting L135/86 mmHg BP Cuff SizeLarge Pulse Rate-Pcaedeu078 bpm Respiration Rate18 per min Temp-Oral97.6 F Gwxopq01 in Iolreo207 lbs Body Mass Index57.2 kg/m2 Body Surface Area2.4 m2 Oxygen Iaxsekavbg53 % Vital Signs: - Systolic blood pressure [...] in the next year. Bottom of Document [facility]09-26-2024 Reason for referral (narrative)* Date Encounter Description Provider Reason for Referral 07/18/24 Established Patient Sarai Alberts HYDRATOR R eferral To Mental Health Team 05/27/22 Established Patient Belkis Velarde RASHAD CC-S Referral To Mental Health Team 03/17/21 Medical New Patient Denny Lomeli CNP Refe rral To Mental Health Team [facility] Work Phone: 1(859) 548-600008-22-2024 Evaluation note Includes: Assessments for all patient encounters Findings Encounter Date Attention-deficit hyperactiv ity disorder Established Patient with Kinga Short LISWS 06/13/2024 Last Documented On 4 6:28PM ; [facility] Bipolar I disorder, most rec ent episode, depressed - mild Established Patient with Kinga Short LISWS 06/13/2024 Last Documented On 4 6:28PM ; [facility] Post-traumatic stress disorder Establ ished Patient with Kinga Short LISWS 06/13/2024 Last Documented On 4 6:28PM ; [facility] [E11.9 - Type 2 diabetes gloria litus without complications] type 2 diabetes mellitus Medical Established Patient with Denny Lomeli [employer] 06/13/2024 Last Documented On 4 7:36PM ; [facility] [F41.1 - Generalized anxiety disorder] generalized anxiety disorder Medical Established Patient with Denny Lomeli [employer] 06/13/2024 Last Documented On 4 7:36PM ; [facility] [I10 - Essential (primary) hypertension] essential hypertension Medical Established Patient with Denny Lomeli [employer] 06/13/2024 Last Documented On 4 7:36PM ; [facility] [N94.6 - Dysmenorrhea, unspe cified] dysmenorrhea Medical Established Patient with Denny Lomeli CNP 06/13/2024 Last Documented On 4 7:36PM ; [facility] [Z68.43 - Body mass index [B CT] 50.0-59.9, adult] assessment of body mass index Medical Established Patient with Denny Lomeli CNP 06/13/2024 Last Documented On 4 7:36PM ; [facility] Encounter for Immunization Medical Estab lished Patient with Denny Lomeli [employer] 06/13/2024 Last Documented On 4 7:36PM ; [facility] Venipuncture was performed Medical Estab lished Patient with Denny Lomeli [employer] 06/13/2024 Last Documented On 4 7:36PM ; [facility] Attention-deficit hyperactivity disorder Established Patient with Kinga Short LISWS 04/10/2024 Last Documented On 4 10:10AM ; [facility] Bipolar I disorder, most rec ent episode, depressed - mild Established Patient with Kinga Short LISWS 04/10/2024 Last Documented On 4 10:10AM ; [facility] Post-traumatic stress disorder Establ ished Patient with Kinga Short LISWS 04/10/2024 Last Documented On 4 10:10AM ; [facility] [D64.9 - Anemia, unspecified] anemia Med ical Established Patient with Denny Lomeli [employer] 04/10/2024 Last Documented On 4 6:51PM ; [facility] [Z68.43 - Body mass index [B CT] 50.0-59.9, adult] assessment of body mass index Medical Established Patient with Denny Lomeli [employer] 04/10/2024 Last Documented On 4 6:51PM ; [facility] Bipolar affective disorder, current episode depressed, mild Established Patient with Kinga Short LISWS 01/17/2024 Last Documented On 4 5:16PM ; [facility] Post-traumatic stress disorder Establ ished Patient with Kinga Short LISWS 01/17/2024 Last Documented On 4 5:16PM ; [facility] Undifferentiated attention d eficit disorder Established Patient with Kinga Short LISWS 01/17/2024 Last Documented On 4 5:16PM ; [facility] Visit for: screening for disorder BH Est ablished Patient with Kinga Short LISWS 01/17/2024 Last Documented On 4 5:16PM ; [facility] [Z68.43 - Body mass index [B CT] 50.0-59.9, adult] assessment of body mass index Medical Established Patient with Denny Lomeli [employer] 01/17/2024 Last Documented On 4 7:50PM ; [facility] Attention-deficit hyperactivity disorder Medical Established Patient with Denny Lomeli [employer] 01/17/2024 Last Documented On 4 7:50PM ; [facility] Diabetes Risk Test Score was three score 01/17/2024 Medical Established Patient with Denny Lomeli [employer] 01/17/2024 Last Documented On 4 7:50PM ; [facility] Visit for: screening for STD Medical Est ablished Patient with Denny Lomeli [employer] 01/17/2024 Last Documented On 4 7:50PM ; [facility] [Z68.32 - Body mass index [B CT] 32.0-32.9, adult] assessment of body mass index Medical Established Patient with Denny Lomeli [employer] 05/10/2023 Last Documented On 3 6:01PM ; [facility] Borderline personality disorder Medical Established Patient with Denny Lomeli [employer] 05/10/2023 Last Documented On 3 6:01PM ; [facility] Screening for diabetes mellitus Medical Established Patient with Denny Lomeli [employer] 05/10/2023 Last Documented On 3 6:01PM ; [facility] Assessment of body mass index Medical Es tablished Patient with Denny Lomeli [employer] 08/12/2022 Last Documented On 2 2:45PM ; [facility] Bipolar affective disorder, current episode manic Telebehavioral Health with Belkisdionna Velarde LPCC-S 06/16/2022 Last Documented On 2 3:22PM ; [facility] Bipolar affective disorder, current episode manic Established Patient with Belkisdionna CoffeyVelarde LPCC-S 06/15/2022 Last Documented On 2 2:28PM ; [facility] Bipolar affective disorder, current episode depressed, severe with psychosis Telebehavioral Health with Belkisdionna CoffeyVelarde LPCC-S 06/15/2022 Last Documented On 2 3:29PM ; [facility] Assessment of body mass inde x [Body mass index [BMI] 50.0-59.9, adult] Open Access - Established with Leah Amaya [employer] 06/15/2022 Last Documented On 2 9:36AM ; [facility] Bipolar I disorder, most rec ent episode, manic Open Access - Established with Leah Monique [employer] 06/15/2022 Last Documented On 2 9:36AM ; [facility] Post-traumatic stress disorder BH Establ ished Patient with Belkisdionna CoffeyVelarde LPCC-S 06/08/2022 Last Documented On 2 3:20PM ; [facility] No cough Medical Established Patient with Denny Armani [employer] 06/08/2022 Last Documented On 2 4:04PM ; [facility] Z68.43 - Body mass index [BM I] 50.0-59.9, adult Medical Established Patient with Denny Armani [employer] 06/08/2022 Last Documented On 2 4:04PM ; [facility] Borderline personality disor kyree Pt reported hx of sx/dx Established Patient with Belkisdionna CoffeyVelarde LPCC-S 05/27/2022 Last Documented On 2 4:08PM ; [facility] Assessment of body mass inde x [Body mass index [BMI] 50.0-59.9, adult] Open Access - Established with Leah Amaya [employer] 05/27/2022 Last Documented On 2 7:41PM ; [facility] Diabetes Risk Test Score was three score 05/27/2022 Open Access - Established with Leah Monique [employer] 05/27/2022 Last Documented On 2 7:41PM ; [facility] Bipolar I disorder, most rec ent episode, manic BH Established Patient with Eufemia Mcneil LPCC-S 07/15/2021 Last Documented On 1 1:35AM ; [facility] Borderline personality disorder Estab lished Patient with Eufemia Mcneil LPCC-S 07/15/2021 Last Documented On 1 1:35AM ; [facility] Post-traumatic stress disorder Establ ished Patient with Eufemia Spencemons LPCC-S 07/15/2021 Last Documented On 1 1:35AM ; [facility] Assessment of visit for: lloyd strange for human immunodeficiency virus Medical Established Patient with Denny Armani [employer] 07/15/2021 Last Documented On 1 2:56PM ; [facility] Nicotine dependence Medical Established Patient with Denny Armani [employer] 07/15/2021 Last Documented On 1 2:56PM ; [facility] Tachycardia Medical Established Patient with Denny Armani [employer] 07/15/2021 Last Documented On 1 2:56PM ; [facility] Z68.43 - Body mass index [BM I] 50.0-59.9, adult Medical Established Patient with Denny Armani [employer] 07/15/2021 Last Documented On 1 2:56PM ; [facility] Bipolar I disorder, most rec ent episode, manic Established Patient with Kinga Short LISWS 06/17/2021 Last Documented On 1 10:17AM ; [facility] Borderline personality disor kyree per patient reported history Established Patient with Kinga Short LISWS 06/17/2021 Last Documented On 1 10:17AM ; [facility] Nicotine dependence Established Patient with Kinga Short LISWS 06/17/2021 Last Documented On 1 10:17AM ; [facility] Post-traumatic stress disorder Establ ished Patient with Kinga Short LISWS 06/17/2021 Last Documented On 1 10:17AM ; [facility] Body mass index Medical Established Patient with Denny Armani [employer] 06/17/2021 Last Documented On 1 5:23PM ; [facility] Morbid obesity Medical Established Patient with Denny Armani [employer] 06/17/2021 Last Documented On 1 5:23PM ; [facility] Nicotine dependence uncomplicated Medica l Established Patient with Denny Armani [employer] 06/17/2021 Last Documented On 1 5:23PM ; [facility] Z68.42 - Body mass index [BM I] 45.0-49.9, adult Medical Established Patient with Dennyartem Lomeli [employer] 06/17/2021 Last Documented On 1 5:23PM ; [facility] 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 disorders [employer] Worker with Teagan Danielsarlyn zuniga [employer] 05/15/2021 Last Documented On 1 7:49AM ; [facility] Mood disorders, NOS per blaze ent reported history Established Patient with Kinga Short LISWS 04/23/2021 Last Documented On 1 7:15PM ; [facility] Post-traumatic stress disorder Establ ished Patient with Kinga Short LISWS 04/23/2021 Last Documented On 1 7:15PM ; [facility] Morbid obesity Medical Established Patient with Denny Armani [employer] 04/23/2021 Last Documented On 1 12:31PM ; [facility] Otitis externa Medical Established Patient with Denny Armani [employer] 04/23/2021 Last Documented On 1 12:31PM ; [facility] Z68.42 - Body mass index [BM I] 45.0-49.9, adult Medical Established Patient with Denny Armani [employer] 04/23/2021 Last Documented On 1 12:31PM ; [facility] Post-traumatic stress disorder Establ ished Patient with Kinga Short LISWS 04/01/2021 Last Documented On 1 10:05PM ; [facility] Morbid obesity Medical Established Patient with Denny Armani [employer] 04/01/2021 Last Documented On 1 4:45PM ; [facility] Z68.42 - Body mass index [BM I] 45.0-49.9, adult Medical Established Patient with Denny Armani [employer] 04/01/2021 Last Documented On 1 4:45PM ; [facility] Post-traumatic stress disorder Establ ished Patient with Kinga Short LISWS 03/17/2021 Last Documented On 1 11:59AM ; [facility] Assessment of visit for: scr eening for human immunodeficiency virus Medical New Patient with Denny Lomeli [employer] 03/17/2021 Last Documented On 1 4:06PM ; [facility] Diabetes Risk Test Score was one score 03/17/2021 Medical New Patient with eDnny Lomeli [employer] 03/17/2021 Last Documented On 1 4:06PM ; [facility] Hypertension Medical New Patient with Denny doherty [employer] 03/17/2021 Last Documented On 1 4:06PM ; [facility] Morbid obesity Medical New Patient with Denny doherty [employer] 03/17/2021 Last Documented On 1 4:06PM ; [facility] Post-traumatic stress disorder Medical New Patie nt with Denny Lomeli [employer] 03/17/2021 Last Documented On 1 4:06PM ; [facility] Z68.42 - Body mass index [BM I] 45.0-49.9, adult Medical New Patient with Denny Lomeli [employer] 03/17/2021 Last Documented On 1 4:06PM ; [facility] Work Phone: 1(259) 814-557908-22-2024 Evaluation note Includes: Assessments for all patient encounters Findings Encounter Date Attention-deficit hyperactiv ity disorder Established Patient with Kinga Short LISWS 06/13/2024 Last Documented On 4 3:28PM ; [facility] Bipolar I disorder, most rec ent episode, depressed - mild Established Patient with Kinga Short LISWS 06/13/2024 Last Documented On 4 3:28PM ; [facility] Post-traumatic stress disorder Establ ished Patient with Kinga Short LISWS 06/13/2024 Last Documented On 4 3:28PM ; [facility] [E11.9 - Type 2 diabetes gloria litus without complications] type 2 diabetes mellitus Medical Established Patient with Denny Lomeli [employer] 06/13/2024 Last Documented On 4 7:36PM ; [facility] [F41.1 - Generalized anxiety disorder] generalized anxiety disorder Medical Established Patient with Denny Lomeli [employer] 06/13/2024 Last Documented On 4 7:36PM ; [facility] [I10 - Essential (primary) hypertension] essential hypertension Medical Established Patient with Denny Lomeli [employer] 06/13/2024 Last Documented On 4 7:36PM ; [facility] [N94.6 - Dysmenorrhea, unspe cified] dysmenorrhea Medical Established Patient with Denny Lomeli [employer] 06/13/2024 Last Documented On 4 7:36PM ; [facility] [Z68.43 - Body mass index [B CT] 50.0-59.9, adult] assessment of body mass index Medical Established Patient with Denny Lomeli [employer] 06/13/2024 Last Documented On 4 7:36PM ; [facility] Encounter for Immunization Medical Estab lished Patient with Denny Lomeli [employer] 06/13/2024 Last Documented On 4 7:36PM ; [facility] Venipuncture was performed Medical Estab lished Patient with Denny Lomeli [employer] 06/13/2024 Last Documented On 4 7:36PM ; [facility] Attention-deficit hyperactivity disorder Established Patient with Kinga Short LISWS 04/10/2024 Last Documented On 4 10:10AM ; [facility] Bipolar I disorder, most rec ent episode, depressed - mild BH Established Patient with Kinga Short LISWS 04/10/2024 Last Documented On 4 10:10AM ; [facility] Post-traumatic stress disorder BH Establ ished Patient with Kinga Short LISWS 04/10/2024 Last Documented On 4 10:10AM ; [facility] [D64.9 - Anemia, unspecified] anemia Med ical Established Patient with Denny Lomeli [employer] 04/10/2024 Last Documented On 4 6:51PM ; [facility] [Z68.43 - Body mass index [B CT] 50.0-59.9, adult] assessment of body mass index Medical Established Patient with Denny Lomeli [employer] 04/10/2024 Last Documented On 4 6:51PM ; [facility] Bipolar affective disorder, current episode depressed, mild BH Established Patient with Kinga Bourgeois LISWS 01/17/2024 Last Documented On 4 5:16PM ; [facility] Post-traumatic stress disorder BH Establ ished Patient with Kinga Short LISWS 01/17/2024 Last Documented On 4 5:16PM ; [facility] Undifferentiated attention d eficit disorder BH Established Patient with Kinga Short LISWS 01/17/2024 Last Documented On 4 5:16PM ; [facility] Visit for: screening for disorder BH Est ablished Patient with Kinga Bourgeois LISWS 01/17/2024 Last Documented On 4 5:16PM ; [facility] [Z68.43 - Body mass index [B CT] 50.0-59.9, adult] assessment of body mass index Medical Established Patient with Denny Lomeli [employer] 01/17/2024 Last Documented On 4 7:50PM ; [facility] Attention-deficit hyperactivity disorder Medical Established Patient with Denny Lomeli [employer] 01/17/2024 Last Documented On 4 7:50PM ; [facility] Diabetes Risk Test Score was three score 01/17/2024 Medical Established Patient with Denny Lomeli [employer] 01/17/2024 Last Documented On 4 7:50PM ; [facility] Visit for: screening for STD Medical Est ablished Patient with Denny Lomeli [employer] 01/17/2024 Last Documented On 4 7:50PM ; [facility] [Z68.32 - Body mass index [B CT] 32.0-32.9, adult] assessment of body mass index Medical Established Patient with Denny Lomeli [employer] 05/10/2023 Last Documented On 3 6:01PM ; [facility] Borderline personality disorder Medical Established Patient with Denny Lomeli [employer] 05/10/2023 Last Documented On 3 6:01PM ; [facility] Screening for diabetes mellitus Medical Established Patient with Denny Lomeli [employer] 05/10/2023 Last Documented On 3 6:01PM ; [facility] Assessment of body mass index Medical Es tablished Patient with Dennyartem Lomeli [employer] 08/12/2022 Last Documented On 2 2:45PM ; [facility] Bipolar affective disorder, current episode manic Telebehavioral Health with Belkisdionna Velarde LPCC-S 06/16/2022 Last Documented On 2 3:22PM ; [facility] Bipolar affective disorder, current episode manic BH Established Patient with Belkis Velarde LPCC-S 06/15/2022 Last Documented On 2 2:28PM ; [facility] Bipolar affective disorder, current episode depressed, severe with psychosis Telebehavioral Health with Belkisdionna Velarde LPCC-S 06/15/2022 Last Documented On 2 3:29PM ; [facility] Assessment of body mass inde x [Body mass index [BMI] 50.0-59.9, adult] Open Access - Established with Leah Amaya [employer] 06/15/2022 Last Documented On 2 9:36AM ; [facility] Bipolar I disorder, most rec ent episode, manic Open Access - Established with Leah Amaya [employer] 06/15/2022 Last Documented On 2 9:36AM ; [facility] Post-traumatic stress disorder Establ ished Patient with Belkisdionna Velarde LPCC-S 06/08/2022 Last Documented On 2 3:20PM ; [facility] No cough Medical Established Patient with Dennyartem Lomeli [employer] 06/08/2022 Last Documented On 2 4:04PM ; [facility] Z68.43 - Body mass index [BM I] 50.0-59.9, adult Medical Established Patient with Dennyartem Landonen [employer] 06/08/2022 Last Documented On 2 4:04PM ; [facility] Borderline personality disor kyree Pt reported hx of sx/dx Established Patient with Belkisdionna Velarde LPCC-S 05/27/2022 Last Documented On 2 4:08PM ; [facility] Assessment of body mass inde x [Body mass index [BMI] 50.0-59.9, adult] Open Access - Established with Leah Amaya [employer] 05/27/2022 Last Documented On 2 7:41PM ; [facility] Diabetes Risk Test Score was three score 05/27/2022 Open Access - Established with Leah Moinque [employer] 05/27/2022 Last Documented On 2 7:41PM ; [facility] Bipolar I disorder, most rec ent episode, manic Established Patient with Eufemia Mcneil LPCC-S 07/15/2021 Last Documented On 1 1:35AM ; [facility] Borderline personality disorder Estab lished Patient with Eufemia Mcneil LPCC-S 07/15/2021 Last Documented On 1 1:35AM ; [facility] Post-traumatic stress disorder Establ ished Patient with Eufemia Mcneil LPCC-S 07/15/2021 Last Documented On 1 1:35AM ; [facility] Assessment of visit for: lloyd strange for human immunodeficiency virus Medical Established Patient with Denny Armani [employer] 07/15/2021 Last Documented On 1 2:56PM ; [facility] Nicotine dependence Medical Established Patient with Denny Armani [employer] 07/15/2021 Last Documented On 1 2:56PM ; [facility] Tachycardia Medical Established Patient with Denny Armani [employer] 07/15/2021 Last Documented On 1 2:56PM ; [facility] Z68.43 - Body mass index [BM I] 50.0-59.9, adult Medical Established Patient with Denny Armani [employer] 07/15/2021 Last Documented On 1 2:56PM ; [facility] Bipolar I disorder, most rec ent episode, manic Established Patient with Kinga Short LISWS 06/17/2021 Last Documented On 1 10:17AM ; [facility] Borderline personality disor kyree per patient reported history Established Patient with Kinga Short LISWS 06/17/2021 Last Documented On 1 10:17AM ; [facility] Nicotine dependence Established Patient with Kinga Short LISWS 06/17/2021 Last Documented On 1 10:17AM ; [facility] Post-traumatic stress disorder Establ ished Patient with Kinga Short LISWS 06/17/2021 Last Documented On 1 10:17AM ; [facility] Body mass index Medical Established Patient with Denny Armani [employer] 06/17/2021 Last Documented On 1 5:23PM ; [facility] Morbid obesity Medical Established Patient with Denny Armani [employer] 06/17/2021 Last Documented On 1 5:23PM ; [facility] Nicotine dependence uncomplicated Medica l Established Patient with Denny Armani [employer] 06/17/2021 Last Documented On 1 5:23PM ; [facility] Z68.42 - Body mass index [BM I] 45.0-49.9, adult Medical Established Patient with Denny Armani [employer] 06/17/2021 Last Documented On 1 5:23PM ; [facility] 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 disorders 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 [employer] 05/15/2021 Last Documented On 1 7:49AM ; [facility] Mood disorders, NOS per blaze ent reported history Established Patient with Kinga Short LISWS 04/23/2021 Last Documented On 1 7:15PM ; [facility] Post-traumatic stress disorder Establ ished Patient with Kinga Short LISWS 04/23/2021 Last Documented On 1 7:15PM ; [facility] Morbid obesity Medical Established Patient with Denny Armani [employer] 04/23/2021 Last Documented On 1 12:31PM ; [facility] Otitis externa Medical Established Patient with Denny Armani [employer] 04/23/2021 Last Documented On 1 12:31PM ; [facility] Z68.42 - Body mass index [BM I] 45.0-49.9, adult Medical Established Patient with Denny Armani [employer] 04/23/2021 Last Documented On 1 12:31PM ; [facility] Post-traumatic stress disorder Establ ished Patient with Kinga Short LISWS 04/01/2021 Last Documented On 1 10:05PM ; [facility] Morbid obesity Medical Established Patient with Dennyartem Lomeli [employer] 04/01/2021 Last Documented On 1 4:45PM ; [facility] Z68.42 - Body mass index [BM I] 45.0-49.9, adult Medical Established Patient with Denny Armani [employer] 04/01/2021 Last Documented On 1 4:45PM ; [facility] Post-traumatic stress disorder BH Establ ished Patient with Kinga Short LISWS 03/17/2021 Last Documented On 1 11:59AM ; [facility] Assessment of visit for: lloyd strange for human immunodeficiency virus Medical New Patient with Dennyartem Lomeli [employer] 03/17/2021 Last Documented On 1 4:06PM ; [facility] Diabetes Risk Test Score was one score 03/17/2021 Medical New Patient with Dennyartem Lomeli [employer] 03/17/2021 Last Documented On 1 4:06PM ; [facility] Hypertension Medical New Patient with Denny C chas [employer] 03/17/2021 Last Documented On 1 4:06PM ; [facility] Morbid obesity Medical New Patient with Denny C chas [employer] 03/17/2021 Last Documented On 1 4:06PM ; [facility] Post-traumatic stress disorder Medical New Patie nt with Denny Armani [employer] 03/17/2021 Last Documented On 1 4:06PM ; [facility] Z68.42 - Body mass index [BM I] 45.0-49.9, adult Medical New Patient with Denny Armani [employer] 03/17/2021 Last Documented On 1 4:06PM ; [facility] Work Phone: 1(190) 116-418108-22-2024 Progress note* Progress note Date Encounter Last Documented by 06/13/2024 Medical Established Patient Last documented on 06/13/2024; 7:36 PM, Denny Lomeli CNP; [facility] Active Problems & Conditions - F90.9 [...] 3 months ago , has appt with software developer but not til october agreeable to progesterone [...] BP-Sitting R151/98 mmHg BP Cuff SizeLarge Pulse Rate-Pbuacgj813 bpm Gapqlo60 in Onymsj890 lbs 9.6 oz Body Mass Index57.9 kg/m2 Body Surface Area2.4 m2 Oxygen Sqpxmsoywv01 % - Vitals taken 06/13/2024 05:21 pm [...] Dysmenorrhea, unspecified Outside Diagn Tests/Ultrasound: US Transvaginal (80708) Instructions: [place] Slynd 4 MG tablet take [...] a in the next year. [facility]08-22-2024 Progress note* Progress note Date Encounter Last Documented by 06/13/2024 Established Patient Last docu mented on 06/14/2024; 3:28 PM, Kinga RUDOLPH; [facility] Active Problems & Conditions - F90.9 - Attention-deficit Hyperactivity Disorder - F31.31 - Bipolar I Disorder, Most Recent Episode, Depressed Mild - E11.9 - Diabetes Mellitus Type 2 Without Complication - N94.6 - Dysmenorrhea - F43.10 - Post-traumatic Stress Disorder Chief Complaint The Chief Complaint is: P met with patient to follow-up regarding mood and medications. Patient had requested to meet with a different [facility] in office but was not avialable and [...] sleep hygiene strategies that can be implemented. [facility] encouraged patient to follow-up with specialists as scheduled. Plan P to task other provider to follow-up with patient regarding medication changes. Care Team - Denny Lomeli CNP Health Reminders - Assess Tobacco Use satisfied 06/13/2024. [facility]06-19-2024 Instructions Includes: Instructions for all patient encounters Education and Decision Aids were provided during visit for: Discussed nutritional needs teach healthy choices including fruits and vegetables Last Documented On 4 4:46PM ; [facility] Patient education about a pr oper diet Last Documented On 4 4:46PM ; [facility] Discussed concerns about exe rcise : promote physical activity Last Documented On 4 4:46PM ; [facility] Not requesting contraception Last Documented On 4 4:46PM ; [facility] offered active and suppo rtive listening and processed current stressors related to getting medications. ~P discussed coping skills and supports to implement in daily routine. ~[facility] discussed progress patient has felt they have made recently and encouraged continued follow-up with providers to address health Last Documented On 4 5:16PM ; [facility] Discussed nutritional needs teach healthy choices including fruits and vegetables Last Documented On 4 7:14PM ; [facility] Patient education about a pr oper diet Last Documented On 4 7:14PM ; [facility] Discussed concerns about exe rcise : promote physical activity Last Documented On 4 7:14PM ; [facility] Not requesting contraception Last Documented On 4 7:14PM ; [facility] Discussed nutritional needs teach healthy choices including fruits and vegetables Last Documented On 3 5:15PM ; [facility] Patient education about a pr oper diet Last Documented On 3 5:15PM ; [facility] Discussed concerns about exe rcise : promote physical activity Last Documented On 3 5:15PM ; [facility] Discussed nutritional needs teach healthy choices including fruits and vegetables Last Documented On 2 1:42PM ; [facility] Patient education about a pr oper diet Last Documented On 2 1:42PM ; [facility] Discussed concerns about exe rcise : promote physical activity Last Documented On 2 1:42PM ; [facility] listening and supportive feedback; normalized emotions and feelings, also provided pt time to process any current stressors. ~Promoted and encouraged follow-through with scheduling psychiatric services Last Documented On 2 3:21PM ; [facility] provided supportive, empa thic listening and reflective feedback. ~Explored, encouraged, and supported the pt to discuss current sx/mood, assess risk for harm/need, coping mechanisms, support network and safety planning. ~Supported pt's plan to f/up with Dr. Carney, as planned at [place], [place]. ~Encouraged pt to use safety plan, if needed to ensure she remains safe Last Documented On 2 2:27PM ; [facility] Discussed nutritional needs teach healthy choices including fruits and vegetables Last Documented On 2 3:20PM ; [facility] Patient education about a pr oper diet Last Documented On 2 3:20PM ; [facility] Discussed concerns about exe rcise : promote physical activity ~ ~Will restart trazodone and prazosin ~ ~Patient is planning to have brother stay with her for a few days for emotional support ~ ~Follow up with PCP at next scheduled visit ~ ~Call psychiatrist office to schedule appt ~ ~Call counselor Last Documented On 2 9:35AM ; [facility] Provided supportive listenin g and empathic feedback; encouraged, explored, and supported the pt as she processed current symptoms, Issues, and concerns. ~Discussed past tx and explored current needs/options. Acknowledged and validated pt's thoughts and emotions. ~Explored coping mechanisms and support network; utilized opportunity for safety planning; promoted seeking positive support and seeking help, as needed Last Documented On 2 3:28PM ; [facility] provided active listenin g, support and helped pt process though current symptoms and stressor(s). Discussed and explored past effectiveness of medication; identified objectives and future goals; promoted use of healthy coping mechanisms, and self-care practices Last Documented On 2 3:19PM ; [facility] Reviewed side effects and Ri sks/Benefits analysis Last Documented On 2 3:19PM ; [facility] Discussed nutritional needs teach healthy choices including fruits and vegetables Last Documented On 2 3:15PM ; [facility] Patient education about a pr oper diet Last Documented On 2 3:15PM ; [facility] Discussed concerns about exe rcise : promote physical activity Last Documented On 2 3:15PM ; [facility] introduced pt to [facility] in tegrated model of care ~[facility] offered active listening and supportive feedback; normalized emotions and feelings, also provided pt time to process any current stressors ~[facility] discussed potential benefits of counseling and supported re-engaging, as needed. ~[facility] encouraged pt to continue to make time to implement self-care regimen and use coping methods, as needed Last Documented On 2 4:07PM ; [facility] Discussed nutritional needs teach healthy choices including fruits and vegetables Last Documented On 2 3:15PM ; [facility] Patient education about a pr oper diet Last Documented On 2 3:15PM ; [facility] Inquiry and counseling about medication administration and compliance Last Documented On 2 7:37PM ; [facility] Discussed concerns about exe rcise : promote physical activity Last Documented On 2 3:15PM ; [facility] Patient goals discussed Last Documented On 2 7:37PM ; [facility] Ansewred pt's questions re B orderlline Personality D/O and Bipolar D/O raised by psychiatrist at [facility]. ~Validated and normalized patient?s feelings while assisting to process recent events Last Documented On 1 1:33AM ; [facility] Discussed nutritional needs teach healthy choices including fruits and vegetables Last Documented On 1 2:04PM ; [facility] Patient education about a pr oper diet Last Documented On 1 2:04PM ; [facility] Discussed concerns about exe rcise : promote physical activity Last Documented On 1 2:04PM ; [facility] provided active listenin g, support and [...] ER Last Documented On 1 10:17AM ; [facility] Patient education about a pr oper diet Last Documented On 1 5:17PM ; [facility] Patient education about meal planning Last Documented On 1 5:17PM ; [facility] Education about changing eat ing habits Last Documented On 1 5:17PM ; [facility] Patient education about high fiber diet Last Documented On 1 5:17PM ; [facility] Patient education about low fat diet Last Documented On 1 5:17PM ; [facility] Patient education about low cholesterol diet Last Documented On 1 5:17PM ; [facility] Patient education about low carbohydrate diet Last Documented On 1 5:17PM ; [facility] Patient education about high protein diet Last Documented On 1 5:17PM ; [facility] offered active and suppo rtive listening, normalized emotions and feelings, and processed current stressors. ~[facility] discussed resources for finding a counselor and provided list of local resources. ~[facility] discussed patients coping skills and supports and encouraged patient to continue to implement. ~[facility] reminded patient of crisis resources should they be needed Last Documented On 1 7:15PM ; [facility] Discussed nutritional needs teach healthy choices including fruits and vegetables Last Documented On 1 11:38AM ; [facility] Patient education about a pr oper diet Last Documented On 1 11:38AM ; [facility] Patient education about a pr oper diet Last Documented On 1 12:19PM ; [facility] Patient education about meal planning Last Documented On 1 12:19PM ; [facility] Education about changing eat ing habits Last Documented On 1 12:19PM ; [facility] Patient education about high fiber diet Last Documented On 12:19PM ; [facility] Patient education about low fat diet Last Documented On 1 12:19PM ; [facility] Patient education about low cholesterol diet Last Documented On 1 12:19PM ; [facility] Patient education about low carbohydrate diet Last Documented On 1 12:19PM ; [facility] Patient education about high protein diet Last Documented On 1 12:19PM ; [facility] Discussed concerns about exe rcise : promote physical activity Last Documented On 1 11:38AM ; [facility] provided active listenin g, support and helped patient process through current symptoms and stressors related to family conflict. ~[facility] discussed coping skills and supports with patient that can be implemented and reminded patient of ways to access additional resources. ~[facility] discussed crisis resources and plan. Patient has crisis resources still available should they be needed Last Documented On 1 7:04PM ; [facility] Discussed nutritional needs teach healthy choices including fruits and vegetables Last Documented On 1 3:57PM ; [facility] Patient education about a pr oper diet Last Documented On 1 3:57PM ; [facility] Discussed concerns about exe rcise : promote physical activity Last Documented On 1 3:57PM ; [facility] integrated model of care. [facility] and PCP reassured patient of not sharing information with anyone unless she has signed a release for us to do so. ~P provided active listening, support and helped patient process through current symptoms and stressors. ~P discussed establishing counseling and psychiatry. P discussed EMDR therapy and ways to find provider who does this type of therapy. ~[facility] discussed crisis resources should mood worsen, [facility] provided text hotline number for crisis. [facility] reviewed crisis plan with patient and patient is able to contact positive supports and family when feeling down Last Documented On 1 11:46AM ; [facility] Discussed nutritional needs teach healthy choices including fruits and vegetables Last Documented On 1 2:11PM ; [facility] Patient education about a pr oper diet Last Documented On 1 2:11PM ; [facility] Discussed concerns about exe rcise : promote physical activity Last Documented On 1 2:11PM ; [facility] Work Phone: 1(948) 362-687606-19-2024 Evaluation note Includes: Assessments for all patient encounters Findings Encounter Date [D64.9 - Anemia, unspecified] anemia Med ical Established Patient with Denny Lomeli [employer] 04/10/2024 Last Documented On 4 6:51PM ; [facility] [Z68.43 - Body mass index [B CT] 50.0-59.9, adult] assessment of body mass index Medical Established Patient with Denny Lomeli [employer] 04/10/2024 Last Documented On 4 6:51PM ; [facility] Bipolar affective disorder, current episode depressed, mild Established Patient with Kinga Short LISWS 01/17/2024 Last Documented On 4 5:16PM ; [facility] Post-traumatic stress disorder Establ ished Patient with Kinga Short LISWS 01/17/2024 Last Documented On 4 5:16PM ; [facility] Undifferentiated attention d eficit disorder Established Patient with Kinga Short LISWS 01/17/2024 Last Documented On 4 5:16PM ; [facility] Visit for: screening for disorder BH Est ablished Patient with Kinga Bourgeois LISWS 01/17/2024 Last Documented On 4 5:16PM ; [facility] [Z68.43 - Body mass index [B CT] 50.0-59.9, adult] assessment of body mass index Medical Established Patient with Denny Lomeli [employer] 01/17/2024 Last Documented On 4 7:50PM ; [facility] Attention-deficit hyperactivity disorder Medical Established Patient with Denny Lomeli [employer] 01/17/2024 Last Documented On 4 7:50PM ; [facility] Diabetes Risk Test Score was three score 01/17/2024 Medical Established Patient with Denny Lomeli [employer] 01/17/2024 Last Documented On 4 7:50PM ; [facility] Visit for: screening for STD Medical Est ablished Patient with Denny Lomeli [employer] 01/17/2024 Last Documented On 4 7:50PM ; [facility] [Z68.32 - Body mass index [B CT] 32.0-32.9, adult] assessment of body mass index Medical Established Patient with Denny Lomeli [employer] 05/10/2023 Last Documented On 3 6:01PM ; [facility] Borderline personality disorder Medical Established Patient with Denny Lomeli [employer] 05/10/2023 Last Documented On 3 6:01PM ; [facility] Screening for diabetes mellitus Medical Established Patient with Denny Lomeli [employer] 05/10/2023 Last Documented On 3 6:01PM ; [facility] Assessment of body mass index Medical Es tablished Patient with Denny Lomeli [employer] 08/12/2022 Last Documented On 2 2:45PM ; [facility] Bipolar affective disorder, current episode manic [facility] 06/16/2022 Last Documented On 2 3:22PM ; [facility] Bipolar affective disorder, current episode manic Established Patient with Belkis Velarde LPCC-S 06/15/2022 Last Documented On 2 2:28PM ; [facility] Bipolar affective disorder, current episode depressed, severe with psychosis [facility] with Belkis Velarde LPCC-S 06/15/2022 Last Documented On 2 3:29PM ; [facility] Assessment of body mass inde x [Body mass index [BMI] 50.0-59.9, adult] Open Access - Established with Leah Monique [employer] 06/15/2022 Last Documented On 2 9:36AM ; [facility] Bipolar I disorder, most rec ent episode, manic Open Access - Established with Leah Monique [employer] 06/15/2022 Last Documented On 2 9:36AM ; [facility] Post-traumatic stress disorder Establ ished Patient with Belkis Velarde LPCC-S 06/08/2022 Last Documented On 2 3:20PM ; [facility] No cough Medical Established Patient with Dennyartem Landonen VP OF [employer] 06/08/2022 Last Documented On 2 4:04PM ; [facility] Z68.43 - Body mass index [BM I] 50.0-59.9, adult Medical Established Patient with Denny Lomeli [employer] 06/08/2022 Last Documented On 2 4:04PM ; [facility] Borderline personality disor kyree Pt reported hx of sx/dx Established Patient with Belkis Velarde LPCC-S 05/27/2022 Last Documented On 2 4:08PM ; [facility] Assessment of body mass inde x [Body mass index [BMI] 50.0-59.9, adult] Open Access - Established with Leah Monique [employer] 05/27/2022 Last Documented On 2 7:41PM ; [facility] Diabetes Risk Test Score was three score 05/27/2022 Open Access - Established with Leah Monique [employer] 05/27/2022 Last Documented On 2 7:41PM ; [facility] Bipolar I disorder, most rec ent episode, manic Established Patient with Eufemia Mcneil LPCC-S 07/15/2021 Last Documented On 1 1:35AM ; [facility] Borderline personality disorder Estab lished Patient with Eufemia Mcneil LPCC-S 07/15/2021 Last Documented On 1 1:35AM ; [facility] Post-traumatic stress disorder Establ ished Patient with Eufemia Mcneil LPCC-S 07/15/2021 Last Documented On 1 1:35AM ; [facility] Assessment of visit for: lloyd strange for human immunodeficiency virus Medical Established Patient with Denny Armani [employer] 07/15/2021 Last Documented On 1 2:56PM ; [facility] Nicotine dependence Medical Established Patient with Denny Armani [employer] 07/15/2021 Last Documented On 1 2:56PM ; [facility] Tachycardia Medical Established Patient with Denny Armani [employer] 07/15/2021 Last Documented On 1 2:56PM ; [facility] Z68.43 - Body mass index [BM I] 50.0-59.9, adult Medical Established Patient with Denny Armani [employer] 07/15/2021 Last Documented On 1 2:56PM ; [facility] Bipolar I disorder, most rec ent episode, manic Established Patient with Kinga Short LISWS 06/17/2021 Last Documented On 1 10:17AM ; [facility] Borderline personality disor kyree per patient reported history Established Patient with Kinga Short LISWS 06/17/2021 Last Documented On 1 10:17AM ; [facility] Nicotine dependence Established Patient with Kinga Short LISWS 06/17/2021 Last Documented On 1 10:17AM ; [facility] Post-traumatic stress disorder Establ ished Patient with Kinga Short LISWS 06/17/2021 Last Documented On 1 10:17AM ; [facility] Body mass index Medical Established Patient with Denny Armani [employer] 06/17/2021 Last Documented On 1 5:23PM ; [facility] Morbid obesity Medical Established Patient with Denny Armani [employer] 06/17/2021 Last Documented On 1 5:23PM ; [facility] Nicotine dependence uncomplicated Medica l Established Patient with Denny Armani [employer] 06/17/2021 Last Documented On 1 5:23PM ; [facility] Z68.42 - Body mass index [BM I] 45.0-49.9, adult Medical Established Patient with Denny Armani [employer] 06/17/2021 Last Documented On 1 5:23PM ; [facility] 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 disorders [employer] Worker with Teagan Danielsarlyn zuniga [employer] 05/15/2021 Last Documented On 1 7:49AM ; [facility] Mood disorders, NOS per blaze ent reported history Established Patient with Kinga Short LISWS 04/23/2021 Last Documented On 1 7:15PM ; [facility] Post-traumatic stress disorder Establ ished Patient with Kinga Short LISWS 04/23/2021 Last Documented On 1 7:15PM ; [facility] Morbid obesity Medical Established Patient with Denny Armani [employer] 04/23/2021 Last Documented On 1 12:31PM ; [facility] Otitis externa Medical Established Patient with Denny Armani [employer] 04/23/2021 Last Documented On 1 12:31PM ; [facility] Z68.42 - Body mass index [BM I] 45.0-49.9, adult Medical Established Patient with Denny Armani [employer] 04/23/2021 Last Documented On 1 12:31PM ; [facility] Post-traumatic stress disorder Establ ished Patient with Kinga Short LISWS 04/01/2021 Last Documented On 1 10:05PM ; [facility] Morbid obesity Medical Established Patient with Denny Armani [employer] 04/01/2021 Last Documented On 1 4:45PM ; [facility] Z68.42 - Body mass index [BM I] 45.0-49.9, adult Medical Established Patient with Denny Armani [employer] 04/01/2021 Last Documented On 1 4:45PM ; [facility] Post-traumatic stress disorder Establ ished Patient with Kinga Short LISWS 03/17/2021 Last Documented On 1 11:59AM ; [facility] Assessment of visit for: lloyd strange for human immunodeficiency virus Medical New Patient with Dennyartem Lomeli [employer] 03/17/2021 Last Documented On 1 4:06PM ; [facility] Diabetes Risk Test Score was one score 03/17/2021 Medical New Patient with Denny Lomeli [employer] 03/17/2021 Last Documented On 1 4:06PM ; [facility] Hypertension Medical New Patient with Dennyartem doherty [employer] 03/17/2021 Last Documented On 1 4:06PM ; [facility] Morbid obesity Medical New Patient with Denny Maryjo doherty [employer] 03/17/2021 Last Documented On 1 4:06PM ; [facility] Post-traumatic stress disorder Medical New Patie nt with Denny Lomeli VP [employer] 03/17/2021 Last Documented On 1 4:06PM ; [facility] Z68.42 - Body mass index [BM I] 45.0-49.9, adult Medical New Patient with Denny Lomeli [employer] 03/17/2021 Last Documented On 1 4:06PM ; [facility] Work Phone: 1(837) 728-274606-19-2024 Evaluation note Includes: Assessments for all patient encounters Findings Encounter Date Attention-deficit hyperactiv ity disorder Established Patient with Kinga Short LISWS 04/10/2024 Last Documented On 4 10:10AM ; [facility] Bipolar I disorder, most rec ent episode, depressed - mild BH Established Patient with Kinga Short LISWS 04/10/2024 Last Documented On 4 10:10AM ; [facility] Post-traumatic stress disorder Establ ished Patient with Kinga Short LISWS 04/10/2024 Last Documented On 4 10:10AM ; [facility] [D64.9 - Anemia, unspecified] anemia Med ical Established Patient with Denny Armani [employer] 04/10/2024 Last Documented On 4 6:51PM ; [facility] [Z68.43 - Body mass index [B CT] 50.0-59.9, adult] assessment of body mass index Medical Established Patient with Denny Lomeli [employer] 04/10/2024 Last Documented On 4 6:51PM ; [facility] Bipolar affective disorder, current episode depressed, mild Established Patient with Kinga Short LISWS 01/17/2024 Last Documented On 4 5:16PM ; [facility] Post-traumatic stress disorder BH Establ ished Patient with Kinga Short LISWS 01/17/2024 Last Documented On 4 5:16PM ; [facility] Undifferentiated attention d eficit disorder Established Patient with Kinga Short LISWS 01/17/2024 Last Documented On 4 5:16PM ; [facility] Visit for: screening for disorder BH Est ablished Patient with Kinga Short LISWS 01/17/2024 Last Documented On 4 5:16PM ; [facility] [Z68.43 - Body mass index [B CT] 50.0-59.9, adult] assessment of body mass index Medical Established Patient with Denny Lomeli [employer] 01/17/2024 Last Documented On 4 7:50PM ; [facility] Attention-deficit hyperactivity disorder Medical Established Patient with Denny Lomeli [employer] 01/17/2024 Last Documented On 4 7:50PM ; [facility] Diabetes Risk Test Score was three score 01/17/2024 Medical Established Patient with Denny Lomeli [employer] 01/17/2024 Last Documented On 4 7:50PM ; [facility] Visit for: screening for STD Medical Est ablished Patient with Dennyartem Landonen [employer] 01/17/2024 Last Documented On 4 7:50PM ; [facility] [Z68.32 - Body mass index [B CT] 32.0-32.9, adult] assessment of body mass index Medical Established Patient with Denny Lomeli [employer] 05/10/2023 Last Documented On 3 6:01PM ; [facility] Borderline personality disorder Medical Established Patient with Denny Armani [employer] 05/10/2023 Last Documented On 3 6:01PM ; [facility] Screening for diabetes mellitus Medical Established Patient with Dennyartem Landonen [employer] 05/10/2023 Last Documented On 3 6:01PM ; [facility] Assessment of body mass index Medical Es tablished Patient with Dennyartem Lomeli [employer] 08/12/2022 Last Documented On 2 2:45PM ; [facility] Bipolar affective disorder, current episode manic Telebehavioral Health with Belkis Velarde [facility] 06/16/2022 Last Documented On 2 3:22PM ; [facility] Bipolar affective disorder, current episode manic BH Established Patient with Belkis Velarde [facility] 06/15/2022 Last Documented On 2 2:28PM ; [facility] Bipolar affective disorder, current episode depressed, severe with psychosis [facility] with Belkis Velarde [facility] 06/15/2022 Last Documented On 2 3:29PM ; [facility] Assessment of body mass inde x [Body mass index [BMI] 50.0-59.9, adult] Open Access - Established with Leah Monique [employer] 06/15/2022 Last Documented On 2 9:36AM ; [facility] Bipolar I disorder, most rec ent episode, manic Open Access - Established with Leah Monique [employer] 06/15/2022 Last Documented On 2 9:36AM ; [facility] Post-traumatic stress disorder BH Establ ished Patient with Belkis Velarde [facility] 06/08/2022 Last Documented On 2 3:20PM ; [facility] No cough Medical Established Patient with Dennyartem Landonen [employer] 06/08/2022 Last Documented On 2 4:04PM ; [facility] Z68.43 - Body mass index [BM I] 50.0-59.9, adult Medical Established Patient with Denny Armani [employer] 06/08/2022 Last Documented On 2 4:04PM ; [facility] Borderline personality disor kyree Pt reported hx of sx/dx Established Patient with [facility]arde [facility] 05/27/2022 Last Documented On 2 4:08PM ; [facility] Assessment of body mass inde x [Body mass index [BMI] 50.0-59.9, adult] Open Access - Established with Leah Amaya [employer] 05/27/2022 Last Documented On 2 7:41PM ; [facility] Diabetes Risk Test Score was three score 05/27/2022 Open Access - Established with Leah Amaya [employer] 05/27/2022 Last Documented On 2 7:41PM ; [facility] Bipolar I disorder, most rec ent episode, manic Established Patient with Eufemia Mcneil [facility] 07/15/2021 Last Documented On 1 1:35AM ; [facility] Borderline personality disorder Estab lished Patient with Eufemia Mcneil [facility] 07/15/2021 Last Documented On 1 1:35AM ; [facility] Post-traumatic stress disorder Establ ished Patient with Eufemia Mcneil [facility] 07/15/2021 Last Documented On 1 1:35AM ; [facility] Assessment of visit for: scr eening for human immunodeficiency virus Medical Established Patient with Denny Armani [facility] 07/15/2021 Last Documented On 1 2:56PM ; [facility] Nicotine dependence Medical Established Patient with Denny Armani [facility] 07/15/2021 Last Documented On 1 2:56PM ; [facility] Tachycardia Medical Established Patient with Denny Armani [facility] 07/15/2021 Last Documented On 1 2:56PM ; [facility] Z68.43 - Body mass index [BM I] 50.0-59.9, adult Medical Established Patient with Denny Armani [facility] 07/15/2021 Last Documented On 1 2:56PM ; [facility] Bipolar I disorder, most rec ent episode, manic Established Patient with Kinga Short LISWS 06/17/2021 Last Documented On 1 10:17AM ; [facility] Borderline personality disor kyree per patient reported history Established Patient with Kinga Short LISWS 06/17/2021 Last Documented On 1 10:17AM ; [facility] Nicotine dependence BH Established Patient with Kinga Short LISWS 06/17/2021 Last Documented On 1 10:17AM ; [facility] Post-traumatic stress disorder Establ ished Patient with Kinga Short LISWS 06/17/2021 Last Documented On 1 10:17AM ; [facility] Body mass index Medical Established Patient with Denny Armani [employer] 06/17/2021 Last Documented On 1 5:23PM ; [facility] Morbid obesity Medical Established Patient with Denny Armani [employer] 06/17/2021 Last Documented On 1 5:23PM ; [facility] Nicotine dependence uncomplicated Medica l Established Patient with Denny Armani [employer] 06/17/2021 Last Documented On 1 5:23PM ; [facility] Z68.42 - Body mass index [BM I] 45.0-49.9, adult Medical Established Patient with Denny Armani [employer] 06/17/2021 Last Documented On 1 5:23PM ; [facility] 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 disorders 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 [employer] 05/15/2021 Last Documented On 1 7:49AM ; [facility] Mood disorders, NOS per blaze ent reported history Established Patient with Kinga Short LISWS 04/23/2021 Last Documented On 1 7:15PM ; [facility] Post-traumatic stress disorder Establ ished Patient with Kinga Short LISWS 04/23/2021 Last Documented On 1 7:15PM ; [facility] Morbid obesity Medical Established Patient with Denny Armani [employer] 04/23/2021 Last Documented On 1 12:31PM ; [facility] Otitis externa Medical Established Patient with Denny Armani [employer] 04/23/2021 Last Documented On 1 12:31PM ; [facility] Z68.42 - Body mass index [BM I] 45.0-49.9, adult Medical Established Patient with Denny Armani [employer] 04/23/2021 Last Documented On 1 12:31PM ; [facility] Post-traumatic stress disorder Establ ished Patient with Kinga Short LISWS 04/01/2021 Last Documented On 1 10:05PM ; [facility] Morbid obesity Medical Established Patient with Denny Armani [employer] 04/01/2021 Last Documented On 1 4:45PM ; [facility] Z68.42 - Body mass index [BM I] 45.0-49.9, adult Medical Established Patient with Denny Armani [employer] 04/01/2021 Last Documented On 1 4:45PM ; [facility] Post-traumatic stress disorder Establ ished Patient with Kinga Short LISWS 03/17/2021 Last Documented On 1 11:59AM ; [facility] Assessment of visit for: scr eening for human immunodeficiency virus Medical New Patient with Denny Armani [employer] 03/17/2021 Last Documented On 1 4:06PM ; [facility] Diabetes Risk Test Score was one score 03/17/2021 Medical New Patient with Denny Armani [employer] 03/17/2021 Last Documented On 1 4:06PM ; [facility] Hypertension Medical New Patient with Denny C chas [employer] 03/17/2021 Last Documented On 1 4:06PM ; [facility] Morbid obesity Medical New Patient with Denny C chas [employer] 03/17/2021 Last Documented On 1 4:06PM ; [facility] Post-traumatic stress disorder Medical New Patie nt with Denny Armani [employer] 03/17/2021 Last Documented On 1 4:06PM ; [facility] Z68.42 - Body mass index [BM I] 45.0-49.9, adult Medical New Patient with Denny Armani [employer] 03/17/2021 Last Documented On 1 4:06PM ; [facility] Work Phone: 1(824) 299-850106-19-2024 History general Narrative - Reported Includes: Medical History in patient's chart Description Last Updated POTS 04/10/2024 Last Documented On 4 6:51PM ; [facility] 0 previous live (s) 01/17/2024 Last Documented On 4 7:50PM ; [facility] Previously 1 time(s) 01/17/2024 Last Documented On 4 7:50PM ; [facility] Recent immunization for flu 01/17/2024 Last Documented On 4 7:50PM ; [facility] Has sex without a condom 06/08/2022 Last Documented On 2 4:04PM ; [facility] Not planning to have a baby in the next 12 months 06/08/2022 Last Documented On 2 4:04PM ; [facility] sexually transmitted infection status known 06/08/2022 Last Documented On 2 4:04PM ; [facility] No previous hospitalizations 06/08/2022 Last Documented On 2 4:04PM ; [facility] Chronic illness 05/17/2021 Last Documented On 1 7:49AM ; [facility] Exposure to COVID-19 04/23/2021 Last Documented On 1 12:31PM ; [facility] History of gynecologic disorder 03/17/20 21 Last Documented On 1 4:06PM ; [facility] History of Polycystic Ovarian Syndrome ( PCOS) 03/17/2021 Last Documented On 1 4:06PM ; [facility] History of anxiety disorder NOS 03/17/20 21 Last Documented On 1 4:06PM ; [facility] History of migraine headache 03/17/2021 Last Documented On 1 4:06PM ; [facility] History of psychiatric disorders biopola r disorder 03/17/2021 Last Documented On 1 4:06PM ; [facility] Work Phone: 1(752) 102-658906-19-2024 History general Narrative - Reported Includes: Medical History in patient's chart Description Last Updated POTS 04/10/2024 Last Documented On 4 6:51PM ; [facility] 0 previous live (s) 01/17/2024 Last Documented On 4 7:50PM ; [facility] Previously 1 time(s) 01/17/2024 Last Documented On 4 7:50PM ; [facility] Recent immunization for flu 01/17/2024 Last Documented On 4 7:50PM ; [facility] Has sex without a condom 06/08/2022 Last Documented On 2 4:04PM ; [facility] Not planning to have a baby in the next 12 months 06/08/2022 Last Documented On 2 4:04PM ; [facility] sexually transmitted infection status known 06/08/2022 Last Documented On 2 4:04PM ; [facility] No previous hospitalizations 06/08/2022 Last Documented On 2 4:04PM ; [facility] Chronic illness 05/17/2021 Last Documented On 1 7:49AM ; [facility] Exposure to COVID-19 04/23/2021 Last Documented On 1 12:31PM ; [facility] History of gynecologic disorder 03/17/20 21 Last Documented On 1 4:06PM ; [facility] History of Polycystic Ovarian Syndrome ( PCOS) 03/17/2021 Last Documented On 1 4:06PM ; [facility] History of anxiety disorder NOS 03/17/20 21 Last Documented On 1 4:06PM ; [facility] History of migraine headache 03/17/2021 Last Documented On 1 4:06PM ; [facility] History of psychiatric disorders biopola r disorder 03/17/2021 Last Documented On 1 4:06PM ; [facility] Work Phone: 1(752) 329-764706-19-2024 History general Narrative - Reported Includes: Medical History in patient's chart Description Last Updated POTS 04/10/2024 Last Documented On 4 6:51PM ; [facility] 0 previous live (s) 01/17/2024 Last Documented On 4 7:50PM ; [facility] Previously 1 time(s) 01/17/2024 Last Documented On 4 7:50PM ; [facility] Recent immunization for flu 01/17/2024 Last Documented On 4 7:50PM ; [facility] Has sex without a condom 06/08/2022 Last Documented On 2 4:04PM ; [facility] Not planning to have a baby in the next 12 months 06/08/2022 Last Documented On 2 4:04PM ; [facility] sexually transmitted infection status known 06/08/2022 Last Documented On 2 4:04PM ; [facility] No previous hospitalizations 06/08/2022 Last Documented On 2 4:04PM ; [facility] Chronic illness 05/17/2021 Last Documented On 1 7:49AM ; [facility] Exposure to COVID-19 04/23/2021 Last Documented On 1 12:31PM ; [facility] History of gynecologic disorder 03/17/20 21 Last Documented On 1 4:06PM ; [facility] History of Polycystic Ovarian Syndrome ( PCOS) 03/17/2021 Last Documented On 1 4:06PM ; [facility] History of anxiety disorder NOS 03/17/20 21 Last Documented On 1 4:06PM ; [facility] History of migraine headache 03/17/2021 Last Documented On 1 4:06PM ; [facility] History of psychiatric disorders biopola r disorder 03/17/2021 Last Documented On 1 4:06PM ; [facility] Work Phone: 1([phone]) [phone] History general Narrative - Reported Includes: Medical History in patient's chart Description Last Updated POTS 04/10/2024 Last Documented On 4 6:51PM ; [facility] 0 previous live (s) 01/17/2024 Last Documented On 4 7:50PM ; [facility] Previously 1 time(s) 01/17/2024 Last Documented On 4 7:50PM ; [facility] Recent immunization for flu 01/17/2024 Last Documented On 4 7:50PM ; [facility] Has sex without a condom 06/08/2022 Last Documented On 2 4:04PM ; [facility] Not planning to have a baby in the next 12 months 06/08/2022 Last Documented On 2 4:04PM ; [facility] sexually transmitted infection status known 06/08/2022 Last Documented On 2 4:04PM ; [facility] No previous hospitalizations 06/08/2022 Last Documented On 2 4:04PM ; [facility] Chronic illness 05/17/2021 Last Documented On 1 7:49AM ; [facility] Exposure to COVID-19 04/23/2021 Last Documented On 1 12:31PM ; [facility] History of gynecologic disorder 03/17/20 21 Last Documented On 1 4:06PM ; [facility] History of Polycystic Ovarian Syndrome ( PCOS) 03/17/2021 Last Documented On 1 4:06PM ; [facility] History of anxiety disorder NOS 03/17/20 21 Last Documented On 1 4:06PM ; [facility] History of migraine headache 03/17/2021 Last Documented On 1 4:06PM ; [facility] History of psychiatric disorders biopola r disorder 03/17/2021 Last Documented On 1 4:06PM ; [facility] Work Phone: 1(280) 968-898806-19-2024 Progress note* Progress note Date Encounter Last Documented by 04/10/2024 Medical Established Patient Last documented on 04/10/2024; 6:51 PM, Denny Lomeli CNP; [facility] Active Problems & Conditions - F90.9 [...] has tried to contact Dr. Donato in [place], but has not heard back. Patient provided with phone number for [facility]. Patient here for 2 month med check. [...] f/u . 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 reports no longer doing counseling r/t [...] BP-Sitting L161/94 mmHg BP Cuff SizeLarge Pulse Rate-Jfjgtjf78 bpm Hxciod92 in Irqfkt745 lbs Body Mass Index54.6 kg/m2 Body Surface Area2.4 m2 Oxygen Fkjiubizwj88 % - Vitals taken 04/10/2024 04:50 pm BP-Sitting L137/89 mmHg BP Cuff SizeLarge Pulse Rate-Exwtlbx56 bpm Vital Signs: - Systolic blood pressure [...] month med check EndCited # given to [facility] , call prashant triana appt german . labs german to further check on anemia. Care Team - Denny Lomeli CNP Health Reminders - Assess BMI satisfied 04/10/2024. - Assess Tobacco Use satisfied 04/10/2024. - Follow Up Plan BMI Management satisfied 04/10/2024. User Defined 1 Not planning a in the next year. [facility]06-19-2024 Progress note* Progress note Date Encounter Last Documented by 04/10/2024 Established Patient Last docu mented on 04/11/2024; 10:10 AM, Kinga RUDOLPH; [facility] Active Problems & Conditions - F90.9 - Attention-deficit Hyperactivity Disorder - F31.31 - Bipolar I Disorder, Most Recent Episode, Depressed Mild - F43.10 - Post-traumatic Stress Disorder Chief Complaint The Chief Complaint is: [facility] met with patient to follow-up regarding mood [...] of things, or get along? Somewhat difficult. [facility]04-02-2024 Progress note* Progress note Date Encounter Last Documented by 01/23/2024 Chart Update Last documented on 01/30/2024; 9:32 AM, Denny Lomeli CNP; [facility] Active Problems & Conditions - F90.9 [...] MG Oral Tablet AM and PM per [facility] in [place], 30 days, 0 refills - MiraLax 17 [...] 01/17/2024 Care Team - Denny Lomeli CNP [facility]03-27-2024 Evaluation note Includes: Assessments for all patient encounters Findings Encounter Date Bipolar affective disorder, current episode depressed, mild Established Patient with Kinga Short LISWS 01/17/2024 Last Documented On 4 7:46PM ; [facility] Post-traumatic stress disorder Establ ished Patient with Kinga Short LISWS 01/17/2024 Last Documented On 4 7:46PM ; [facility] Undifferentiated attention d eficit disorder Established Patient with Kinga Short LISWS 01/17/2024 Last Documented On 4 7:46PM ; [facility] Visit for: screening for disorder Est ablished Patient with Kinga Short LISWS 01/17/2024 Last Documented On 4 7:46PM ; [facility] [Z68.43 - Body mass index [B CT] 50.0-59.9, adult] assessment of body mass index Medical Established Patient with Denny Lomeli [employer] 01/17/2024 Last Documented On 4 7:50PM ; [facility] Attention-deficit hyperactivity disorder Medical Established Patient with Denny Lomeli [employer] 01/17/2024 Last Documented On 4 7:50PM ; [facility] Diabetes Risk Test Score was three score 01/17/2024 Medical Established Patient with Denny Lomeli [employer] 01/17/2024 Last Documented On 4 7:50PM ; [facility] Visit for: screening for STD Medical Est ablished Patient with Denny Lomeli [employer] 01/17/2024 Last Documented On 4 7:50PM ; [facility] [Z68.32 - Body mass index [B CT] 32.0-32.9, adult] assessment of body mass index Medical Established Patient with Denny Lomeli [employer] 05/10/2023 Last Documented On 3 6:01PM ; [facility] Borderline personality disorder Medical Established Patient with Denny Lomeli [employer] 05/10/2023 Last Documented On 3 6:01PM ; [facility] Screening for diabetes mellitus Medical Established Patient with Denny Lomeli [employer] 05/10/2023 Last Documented On 3 6:01PM ; [facility] Assessment of body mass index Medical Es tablished Patient with Denny Lomeli [employer] 08/12/2022 Last Documented On 2 2:45PM ; [facility] Bipolar affective disorder, current episode manic [facility] with Belkis Velarde [facility] 06/16/2022 Last Documented On 2 3:22PM ; [facility] Bipolar affective disorder, current episode manic Established Patient with Belkis Coffeyerson [facility] 06/15/2022 Last Documented On 2 2:28PM ; [facility] Bipolar affective disorder, current episode depressed, severe with psychosis [facility] with Belkis Coffeyerson [facility] 06/15/2022 Last Documented On 2 3:29PM ; [facility] Assessment of body mass inde x [Body mass index [BMI] 50.0-59.9, adult] Open Access - Established with Leah Monique [employer] 06/15/2022 Last Documented On 2 9:36AM ; [facility] Bipolar I disorder, most rec ent episode, manic Open Access - Established with Leah Monique [employer] 06/15/2022 Last Documented On 2 9:36AM ; [facility] Post-traumatic stress disorder BH Establ ished Patient with Belkis Velarde [facility] 06/08/2022 Last Documented On 2 3:20PM ; [facility] No cough Medical Established Patient with Denny Armani [employer] 06/08/2022 Last Documented On 2 4:04PM ; [facility] Z68.43 - Body mass index [BM I] 50.0-59.9, adult Medical Established Patient with Denny Armani [employer] 06/08/2022 Last Documented On 2 4:04PM ; [facility] Borderline personality disor kyree Pt reported hx of sx/dx BH Established Patient with Belkis Velarde [facility] 05/27/2022 Last Documented On 2 4:08PM ; [facility] Assessment of body mass inde x [Body mass index [BMI] 50.0-59.9, adult] Open Access - Established with Leah Monique [employer] 05/27/2022 Last Documented On 2 7:41PM ; [facility] Diabetes Risk Test Score was three score 05/27/2022 Open Access - Established with Leah Monique [employer] 05/27/2022 Last Documented On 2 7:41PM ; [facility] Bipolar I disorder, most rec ent episode, manic BH Established Patient with Eufemia Mcneil [facility] 07/15/2021 Last Documented On 1 1:35AM ; [facility] Borderline personality disorder BH Estab lished Patient with Eufemia Mcneil [facility] 07/15/2021 Last Documented On 1 1:35AM ; [facility] Post-traumatic stress disorder BH Establ ished Patient with Eufemia Mcneil [facility] 07/15/2021 Last Documented On 1 1:35AM ; [facility] Assessment of visit for: lloyd mcgillning for human immunodeficiency virus Medical Established Patient with Denny Armani [employer] 07/15/2021 Last Documented On 1 2:56PM ; [facility] Nicotine dependence Medical Established Patient with Denny Armani [employer] 07/15/2021 Last Documented On 1 2:56PM ; [facility] Tachycardia Medical Established Patient with Denny Armani [employer] 07/15/2021 Last Documented On 1 2:56PM ; [facility] Z68.43 - Body mass index [BM I] 50.0-59.9, adult Medical Established Patient with Denny Armani [employer] 07/15/2021 Last Documented On 1 2:56PM ; [facility] Bipolar I disorder, most rec ent episode, manic Established Patient with Kinga Short LISWS 06/17/2021 Last Documented On 1 10:17AM ; [facility] Borderline personality disor kyree per patient reported history Established Patient with Kinga Short LISWS 06/17/2021 Last Documented On 1 10:17AM ; [facility] Nicotine dependence Established Patient with Kinga Short LISWS 06/17/2021 Last Documented On 1 10:17AM ; [facility] Post-traumatic stress disorder BH Establ ished Patient with Kinga Short LISWS 06/17/2021 Last Documented On 1 10:17AM ; [facility] Body mass index Medical Established Patient with Denny Armani [employer] 06/17/2021 Last Documented On 1 5:23PM ; [facility] Morbid obesity Medical Established Patient with Denny Armani [employer] 06/17/2021 Last Documented On 1 5:23PM ; [facility] Nicotine dependence uncomplicated Medica l Established Patient with Denny Armani [employer] 06/17/2021 Last Documented On 1 5:23PM ; [facility] Z68.42 - Body mass index [BM I] 45.0-49.9, adult Medical Established Patient with Denny Armani [employer] 06/17/2021 Last Documented On 1 5:23PM ; [facility] 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 disorders [employer] Worker with Teagan Cheryl zuniga [employer] 05/15/2021 Last Documented On 1 7:49AM ; [facility] Mood disorders, NOS per blaze ent reported history Established Patient with Kinga Short LISWS 04/23/2021 Last Documented On 1 7:15PM ; [facility] Post-traumatic stress disorder BH Establ ished Patient with Kinga Short LISWS 04/23/2021 Last Documented On 1 7:15PM ; [facility] Morbid obesity Medical Established Patient with Denny Armani [employer] 04/23/2021 Last Documented On 1 12:31PM ; [facility] Otitis externa Medical Established Patient with Denny Armani [employer] 04/23/2021 Last Documented On 1 12:31PM ; [facility] Z68.42 - Body mass index [BM I] 45.0-49.9, adult Medical Established Patient with Denny Armani [employer] 04/23/2021 Last Documented On 1 12:31PM ; [facility] Post-traumatic stress disorder Establ ished Patient with Kinga Short LISWS 04/01/2021 Last Documented On 1 10:05PM ; [facility] Morbid obesity Medical Established Patient with Denny Armani [employer] 04/01/2021 Last Documented On 1 4:45PM ; [facility] Z68.42 - Body mass index [BM I] 45.0-49.9, adult Medical Established Patient with Denny Armani [employer] 04/01/2021 Last Documented On 1 4:45PM ; [facility] Post-traumatic stress disorder Establ ished Patient with Kinga Short LISWS 03/17/2021 Last Documented On 1 11:59AM ; [facility] Assessment of visit for: scr eening for human immunodeficiency virus Medical New Patient with Denny Armani [employer] 03/17/2021 Last Documented On 1 4:06PM ; [facility] Diabetes Risk Test Score was one score 03/17/2021 Medical New Patient with Denny Lomeli [employer] 03/17/2021 Last Documented On 1 4:06PM ; [facility] Hypertension Medical New Patient with Dennyartem doherty [employer] 03/17/2021 Last Documented On 1 4:06PM ; [facility] Morbid obesity Medical New Patient with Denny Maryjo doherty [employer] 03/17/2021 Last Documented On 1 4:06PM ; [facility] Post-traumatic stress disorder Medical New Patie nt with Dennyartem Landonen [employer] 03/17/2021 Last Documented On 1 4:06PM ; [facility] Z68.42 - Body mass index [BM I] 45.0-49.9, adult Medical New Patient with Dennyartem Lomeli [employer] 03/17/2021 Last Documented On 1 4:06PM ; [facility] Work Phone: 1(477) 638-549703-27-2024 Evaluation note Includes: Assessments for all patient encounters Findings Encounter Date Bipolar affective disorder, current episode depressed, mild Established Patient with Kinga Short LISWS 01/17/2024 Last Documented On 4 5:16PM ; [facility] Post-traumatic stress disorder Establ ished Patient with Kinga Short LISWS 01/17/2024 Last Documented On 4 5:16PM ; [facility] Undifferentiated attention d eficit disorder Established Patient with Kinga Short LISWS 01/17/2024 Last Documented On 4 5:16PM ; [facility] Visit for: screening for disorder Est ablished Patient with Kinga Short LISWS 01/17/2024 Last Documented On 4 5:16PM ; [facility] [Z68.43 - Body mass index [B CT] 50.0-59.9, adult] assessment of body mass index Medical Established Patient with Denny Armani [employer] 01/17/2024 Last Documented On 4 7:50PM ; [facility] Attention-deficit hyperactivity disorder Medical Established Patient with Denny Armani [employer] 01/17/2024 Last Documented On 4 7:50PM ; [facility] Diabetes Risk Test Score was three score 01/17/2024 Medical Established Patient with Denny Lomeli [employer] 01/17/2024 Last Documented On 4 7:50PM ; [facility] Visit for: screening for STD Medical Est ablished Patient with Denny Lomeli [employer] 01/17/2024 Last Documented On 4 7:50PM ; [facility] [Z68.32 - Body mass index [B CT] 32.0-32.9, adult] assessment of body mass index Medical Established Patient with Denny Lomeli [employer] 05/10/2023 Last Documented On 3 6:01PM ; [facility] Borderline personality disorder Medical Established Patient with Denny Lomeli [employer] 05/10/2023 Last Documented On 3 6:01PM ; [facility] Screening for diabetes mellitus Medical Established Patient with Denny Lomeli [facility] 05/10/2023 Last Documented On 3 6:01PM ; [facility] Assessment of body mass index Medical Es tablished Patient with Denny Lomeli [employer] 08/12/2022 Last Documented On 2 2:45PM ; [facility] Bipolar affective disorder, current episode manic Telebehavioral Health with Belkisdionna Velarde LPCC-S 06/16/2022 Last Documented On 2 3:22PM ; [facility] Bipolar affective disorder, current episode manic Established Patient with Belkis Velarde LPCC-S 06/15/2022 Last Documented On 2 2:28PM ; [facility] Bipolar affective disorder, current episode depressed, severe with psychosis Telebehavioral Health with Belkis Velarde LPCC-S 06/15/2022 Last Documented On 2 3:29PM ; [facility] Assessment of body mass inde x [Body mass index [BMI] 50.0-59.9, adult] Open Access - Established with Leah Amaya [employer] 06/15/2022 Last Documented On 2 9:36AM ; [facility] Bipolar I disorder, most rec ent episode, manic Open Access - Established with Leah Monique [employer] 06/15/2022 Last Documented On 2 9:36AM ; [facility] Post-traumatic stress disorder Establ ished Patient with Belkisdionna CoffeyVelarde LPCC-S 06/08/2022 Last Documented On 2 3:20PM ; [facility] No cough Medical Established Patient with Denny Armani [employer] 06/08/2022 Last Documented On 2 4:04PM ; [facility] Z68.43 - Body mass index [BM I] 50.0-59.9, adult Medical Established Patient with Denny Armani [employer] 06/08/2022 Last Documented On 2 4:04PM ; [facility] Borderline personality disor kyree Pt reported hx of sx/dx Established Patient with Belkis Velarde LPCC-S 05/27/2022 Last Documented On 2 4:08PM ; [facility] Assessment of body mass inde x [Body mass index [BMI] 50.0-59.9, adult] Open Access - Established with Leah Monique [employer] 05/27/2022 Last Documented On 2 7:41PM ; [facility] Diabetes Risk Test Score was three score 05/27/2022 Open Access - Established with Leah Monique [employer] 05/27/2022 Last Documented On 2 7:41PM ; [facility] Bipolar I disorder, most rec ent episode, manic Established Patient with Eufemia Mcneil LPCC-S 07/15/2021 Last Documented On 1 1:35AM ; [facility] Borderline personality disorder Estab lished Patient with Eufemia Mcneil LPCC-S 07/15/2021 Last Documented On 1 1:35AM ; [facility] Post-traumatic stress disorder Establ ished Patient with Eufemia Mcneil LPCC-S 07/15/2021 Last Documented On 1 1:35AM ; [facility] Assessment of visit for: scr eening for human immunodeficiency virus Medical Established Patient with Denny Armani [employer] 07/15/2021 Last Documented On 1 2:56PM ; [facility] Nicotine dependence Medical Established Patient with Denny Armani [employer] 07/15/2021 Last Documented On 1 2:56PM ; [facility] Tachycardia Medical Established Patient with Denny Armani [employer] 07/15/2021 Last Documented On 1 2:56PM ; [facility] Z68.43 - Body mass index [BM I] 50.0-59.9, adult Medical Established Patient with Denny Armani [employer] 07/15/2021 Last Documented On 1 2:56PM ; [facility] Bipolar I disorder, most rec ent episode, manic Established Patient with Kinga Short LISWS 06/17/2021 Last Documented On 1 10:17AM ; [facility] Borderline personality disor kyree per patient reported history Established Patient with Kinga Short LISWS 06/17/2021 Last Documented On 1 10:17AM ; [facility] Nicotine dependence Established Patient with Kinga Short LISWS 06/17/2021 Last Documented On 1 10:17AM ; [facility] Post-traumatic stress disorder BH Establ ished Patient with Kinga Short LISWS 06/17/2021 Last Documented On 1 10:17AM ; [facility] Body mass index Medical Established Patient with Denny Armani [employer] 06/17/2021 Last Documented On 1 5:23PM ; [facility] Morbid obesity Medical Established Patient with Denny Armani [employer] 06/17/2021 Last Documented On 1 5:23PM ; [facility] Nicotine dependence uncomplicated Medica l Established Patient with Denny Armani [employer] 06/17/2021 Last Documented On 1 5:23PM ; [facility] Z68.42 - Body mass index [BM I] 45.0-49.9, adult Medical Established Patient with Denny Armani [employer] 06/17/2021 Last Documented On 1 5:23PM ; [facility] 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 disorders 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 [employer] 05/15/2021 Last Documented On 1 7:49AM ; [facility] Mood disorders, NOS per blaze ent reported history Established Patient with Kinga Short LISWS 04/23/2021 Last Documented On 1 7:15PM ; [facility] Post-traumatic stress disorder Establ ished Patient with Kinga Short LISWS 04/23/2021 Last Documented On 1 7:15PM ; [facility] Morbid obesity Medical Established Patient with Denny Armani [employer] 04/23/2021 Last Documented On 1 12:31PM ; [facility] Otitis externa Medical Established Patient with Denny Armani [employer] 04/23/2021 Last Documented On 1 12:31PM ; [facility] Z68.42 - Body mass index [BM I] 45.0-49.9, adult Medical Established Patient with Denny Armani [employer] 04/23/2021 Last Documented On 1 12:31PM ; [facility] Post-traumatic stress disorder Establ ished Patient with Kinga Short LISWS 04/01/2021 Last Documented On 1 10:05PM ; [facility] Morbid obesity Medical Established Patient with Denny Armani [employer] 04/01/2021 Last Documented On 1 4:45PM ; [facility] Z68.42 - Body mass index [BM I] 45.0-49.9, adult Medical Established Patient with Denny Armani [employer] 04/01/2021 Last Documented On 1 4:45PM ; [facility] Post-traumatic stress disorder Establ ished Patient with Kinga Short LISWS 03/17/2021 Last Documented On 1 11:59AM ; [facility] Assessment of visit for: lloyd strange for human immunodeficiency virus Medical New Patient with Denny Lomeli [employer] 03/17/2021 Last Documented On 1 4:06PM ; [facility] Diabetes Risk Test Score was one score 03/17/2021 Medical New Patient with Dennyartem Lomeli [employer] 03/17/2021 Last Documented On 1 4:06PM ; [facility] Hypertension Medical New Patient with Denny doherty [employer] 03/17/2021 Last Documented On 1 4:06PM ; [facility] Morbid obesity Medical New Patient with Dennyartem doherty [employer] 03/17/2021 Last Documented On 1 4:06PM ; [facility] Post-traumatic stress disorder Medical New Patie nt with Dennyartem Lomeli [employer] 03/17/2021 Last Documented On 1 4:06PM ; [facility] Z68.42 - Body mass index [BM I] 45.0-49.9, adult Medical New Patient with Dennyartem Lomeli [employer] 03/17/2021 Last Documented On 1 4:06PM ; [facility] Work Phone: 1(587) 604-574803-27-2024 Evaluation note Includes: Assessments for all patient encounters Findings Encounter Date Bipolar affective disorder, current episode depressed, mild Established Patient with Kinga Short LISWS 01/17/2024 Last Documented On 4 5:16PM ; [facility] Post-traumatic stress disorder BH Establ ished Patient with Kinga Short LISWS 01/17/2024 Last Documented On 4 5:16PM ; [facility] Undifferentiated attention d eficit disorder Established Patient with Kinga Short LISWS 01/17/2024 Last Documented On 4 5:16PM ; [facility] Visit for: screening for disorder Est ablished Patient with Kinga Short LISWS 01/17/2024 Last Documented On 4 5:16PM ; [facility] [Z68.43 - Body mass index [B CT] 50.0-59.9, adult] assessment of body mass index Medical Established Patient with Dennyartem Lomeli [employer] 01/17/2024 Last Documented On 4 7:50PM ; [facility] Attention-deficit hyperactivity disorder Medical Established Patient with Denny Armani [employer] 01/17/2024 Last Documented On 4 7:50PM ; [facility] Diabetes Risk Test Score was three score 01/17/2024 Medical Established Patient with Denny Armani [employer] 01/17/2024 Last Documented On 4 7:50PM ; [facility] Visit for: screening for STD Medical Est ablished Patient with Denny Lomeli [employer] 01/17/2024 Last Documented On 4 7:50PM ; [facility] [Z68.32 - Body mass index [B CT] 32.0-32.9, adult] assessment of body mass index Medical Established Patient with Denny Lomeli [employer] 05/10/2023 Last Documented On 3 6:01PM ; [facility] Borderline personality disorder Medical Established Patient with Denny Lomeli [employer] 05/10/2023 Last Documented On 3 6:01PM ; [facility] Screening for diabetes mellitus Medical Established Patient with Denny Lomeli [employer] 05/10/2023 Last Documented On 3 6:01PM ; [facility] Assessment of body mass index Medical Es tablished Patient with Denny Lomeli [facility] 08/12/2022 Last Documented On 2 2:45PM ; [facility] Bipolar affective disorder, current episode manic Telebehavioral Health with Belkisdionna Velarde LPCC-S 06/16/2022 Last Documented On 2 3:22PM ; [facility] Bipolar affective disorder, current episode manic Established Patient with Belkisdionna Velarde LPCC-S 06/15/2022 Last Documented On 2 2:28PM ; [facility] Bipolar affective disorder, current episode depressed, severe with psychosis Telebehavioral Health with Belkisdionna CoffeyVelarde LPCC-S 06/15/2022 Last Documented On 2 3:29PM ; [facility] Assessment of body mass inde x [Body mass index [BMI] 50.0-59.9, adult] Open Access - Established with Leah Amaya [employer] 06/15/2022 Last Documented On 2 9:36AM ; [facility] Bipolar I disorder, most rec ent episode, manic Open Access - Established with Leah Monique [employer] 06/15/2022 Last Documented On 2 9:36AM ; [facility] Post-traumatic stress disorder Establ ished Patient with Belkis Velarde LPCC-S 06/08/2022 Last Documented On 2 3:20PM ; [facility] No cough Medical Established Patient with Dennyartem Lomeli [employer] 06/08/2022 Last Documented On 2 4:04PM ; [facility] Z68.43 - Body mass index [BM I] 50.0-59.9, adult Medical Established Patient with Denny Lomeli [employer] 06/08/2022 Last Documented On 2 4:04PM ; [facility] Borderline personality disor kyree Pt reported hx of sx/dx Established Patient with Belkisdionna CoffeyVelarde LPCC-S 05/27/2022 Last Documented On 2 4:08PM ; [facility] Assessment of body mass inde x [Body mass index [BMI] 50.0-59.9, adult] Open Access - Established with Leah Amaya [employer] 05/27/2022 Last Documented On 2 7:41PM ; [facility] Diabetes Risk Test Score was three score 05/27/2022 Open Access - Established with Leah Monique [employer] 05/27/2022 Last Documented On 2 7:41PM ; [facility] Bipolar I disorder, most rec ent episode, manic Established Patient with Eufemia Mcneil LPCC-S 07/15/2021 Last Documented On 1 1:35AM ; [facility] Borderline personality disorder Estab lished Patient with Eufemia Mcneil LPCC-S 07/15/2021 Last Documented On 1 1:35AM ; [facility] Post-traumatic stress disorder Establ ished Patient with Eufemia Mcneil LPCC-S 07/15/2021 Last Documented On 1 1:35AM ; [facility] Assessment of visit for: lloyd strange for human immunodeficiency virus Medical Established Patient with Denny Lomeli [employer] 07/15/2021 Last Documented On 1 2:56PM ; [facility] Nicotine dependence Medical Established Patient with Dennyartem Lomeli [employer] 07/15/2021 Last Documented On 1 2:56PM ; [facility] Tachycardia Medical Established Patient with Denny Armani [employer] 07/15/2021 Last Documented On 1 2:56PM ; [facility] Z68.43 - Body mass index [BM I] 50.0-59.9, adult Medical Established Patient with Denny Armani [employer] 07/15/2021 Last Documented On 1 2:56PM ; [facility] Bipolar I disorder, most rec ent episode, manic Established Patient with Kinga Short LISWS 06/17/2021 Last Documented On 1 10:17AM ; [facility] Borderline personality disor kyree per patient reported history Established Patient with Kinga Short LISWS 06/17/2021 Last Documented On 1 10:17AM ; [facility] Nicotine dependence Established Patient with Kinga Short LISWS 06/17/2021 Last Documented On 1 10:17AM ; [facility] Post-traumatic stress disorder Establ ished Patient with Kinga Short LISWS 06/17/2021 Last Documented On 1 10:17AM ; [facility] Body mass index Medical Established Patient with Denny Armani [employer] 06/17/2021 Last Documented On 1 5:23PM ; [facility] Morbid obesity Medical Established Patient with Denny Armani [employer] 06/17/2021 Last Documented On 1 5:23PM ; [facility] Nicotine dependence uncomplicated Medica l Established Patient with Denny Armani [employer] 06/17/2021 Last Documented On 1 5:23PM ; [facility] Z68.42 - Body mass index [BM I] 45.0-49.9, adult Medical Established Patient with Denny Armani [employer] 06/17/2021 Last Documented On 1 5:23PM ; [facility] 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 disorders 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 [employer] 05/15/2021 Last Documented On 1 7:49AM ; [facility] Mood disorders, NOS per blaze ent reported history Established Patient with Kinga Short LISWS 04/23/2021 Last Documented On 1 7:15PM ; [facility] Post-traumatic stress disorder Establ ished Patient with Kinga Short LISWS 04/23/2021 Last Documented On 1 7:15PM ; [facility] Morbid obesity Medical Established Patient with Denny Armani [employer] 04/23/2021 Last Documented On 1 12:31PM ; [facility] Otitis externa Medical Established Patient with Denny Armani [employer] 04/23/2021 Last Documented On 1 12:31PM ; [facility] Z68.42 - Body mass index [BM I] 45.0-49.9, adult Medical Established Patient with Denny Armani [employer] 04/23/2021 Last Documented On 1 12:31PM ; [facility] Post-traumatic stress disorder Establ ished Patient with Kinga Short LISWS 04/01/2021 Last Documented On 1 10:05PM ; [facility] Morbid obesity Medical Established Patient with Denny Armani [employer] 04/01/2021 Last Documented On 1 4:45PM ; [facility] Z68.42 - Body mass index [BM I] 45.0-49.9, adult Medical Established Patient with Denny Armani [employer] 04/01/2021 Last Documented On 1 4:45PM ; [facility] Post-traumatic stress disorder Establ ished Patient with Kinga Short LISWS 03/17/2021 Last Documented On 1 11:59AM ; [facility] Assessment of visit for: lloyd strange for human immunodeficiency virus Medical New Patient with Denny Lomeli [employer] 03/17/2021 Last Documented On 1 4:06PM ; [facility] Diabetes Risk Test Score was one score 03/17/2021 Medical New Patient with Dennyartem Lomeli [employer] 03/17/2021 Last Documented On 1 4:06PM ; [facility] Hypertension Medical New Patient with Dennyartem zamoraen [employer] 03/17/2021 Last Documented On 1 4:06PM ; [facility] Morbid obesity Medical New Patient with Denny C chas [employer] 03/17/2021 Last Documented On 1 4:06PM ; [facility] Post-traumatic stress disorder Medical New Patie nt with Denny Lomeli [employer] 03/17/2021 Last Documented On 1 4:06PM ; [facility] Z68.42 - Body mass index [BM I] 45.0-49.9, adult Medical New Patient with Denny Lomeli [employer] 03/17/2021 Last Documented On 1 4:06PM ; [facility] Work Phone: 1(157) 967-197803-27-2024 History general Narrative - Reported Includes: Medical History in patient's chart Description Last Updated 0 previous live (s) 01/17/2024 Last Documented On 4 7:50PM ; [facility] Previously 1 time(s) 01/17/2024 Last Documented On 4 7:50PM ; [facility] Recent immunization for flu 01/17/2024 Last Documented On 4 7:50PM ; [facility] Has sex without a condom 06/08/2022 Last Documented On 2 4:04PM ; [facility] Not planning to have a baby in the next 12 months 06/08/2022 Last Documented On 2 4:04PM ; [facility] sexually transmitted infection status known 06/08/2022 Last Documented On 2 4:04PM ; [facility] No previous hospitalizations 06/08/2022 Last Documented On 2 4:04PM ; [facility] Chronic illness 05/17/2021 Last Documented On 1 7:49AM ; [facility] Exposure to COVID-19 04/23/2021 Last Documented On 1 12:31PM ; [facility] History of gynecologic disorder 03/17/20 21 Last Documented On 1 4:06PM ; [facility] History of Polycystic Ovarian Syndrome ( PCOS) 03/17/2021 Last Documented On 1 4:06PM ; [facility] History of anxiety disorder NOS 03/17/20 21 Last Documented On 1 4:06PM ; [facility] History of migraine headache 03/17/2021 Last Documented On 1 4:06PM ; [facility] History of psychiatric disorders biopola r disorder 03/17/2021 Last Documented On 1 4:06PM ; [facility] Work Phone: 1(729) 245-681903-27-2024 History general Narrative - Reported Includes: Medical History in patient's chart Description Last Updated 0 previous live (s) 01/17/2024 Last Documented On 4 7:50PM ; [facility] Previously 1 time(s) 01/17/2024 Last Documented On 4 7:50PM ; [facility] Recent immunization for flu 01/17/2024 Last Documented On 4 7:50PM ; [facility] Has sex without a condom 06/08/2022 Last Documented On 2 4:04PM ; [facility] Not planning to have a baby in the next 12 months 06/08/2022 Last Documented On 2 4:04PM ; [facility] sexually transmitted infection status known 06/08/2022 Last Documented On 2 4:04PM ; [facility] No previous hospitalizations 06/08/2022 Last Documented On 2 4:04PM ; [facility] Chronic illness 05/17/2021 Last Documented On 1 7:49AM ; [facility] Exposure to COVID-19 04/23/2021 Last Documented On 1 12:31PM ; [facility] History of gynecologic disorder 03/17/20 21 Last Documented On 1 4:06PM ; [facility] History of Polycystic Ovarian Syndrome ( PCOS) 03/17/2021 Last Documented On 1 4:06PM ; [facility] History of anxiety disorder NOS 03/17/20 21 Last Documented On 1 4:06PM ; [facility] History of migraine headache 03/17/2021 Last Documented On 1 4:06PM ; [facility] History of psychiatric disorders biopola r disorder 03/17/2021 Last Documented On 1 4:06PM ; [facility] Work Phone: 1(189) 626-909703-27-2024 History general Narrative - Reported Includes: Medical History in patient's chart Description Last Updated 0 previous live (s) 01/17/2024 Last Documented On 4 7:50PM ; [facility] Previously 1 time(s) 01/17/2024 Last Documented On 4 7:50PM ; [facility] Recent immunization for flu 01/17/2024 Last Documented On 4 7:50PM ; [facility] Has sex without a condom 06/08/2022 Last Documented On 2 4:04PM ; [facility] Not planning to have a baby in the next 12 months 06/08/2022 Last Documented On 2 4:04PM ; [facility] sexually transmitted infection status known 06/08/2022 Last Documented On 2 4:04PM ; [facility] No previous hospitalizations 06/08/2022 Last Documented On 2 4:04PM ; [facility] Chronic illness 05/17/2021 Last Documented On 1 7:49AM ; [facility] Exposure to COVID-19 04/23/2021 Last Documented On 1 12:31PM ; [facility] History of gynecologic disorder 03/17/20 21 Last Documented On 1 4:06PM ; [facility] History of Polycystic Ovarian Syndrome ( PCOS) 03/17/2021 Last Documented On 1 4:06PM ; [facility] History of anxiety disorder NOS 03/17/20 21 Last Documented On 1 4:06PM ; [facility] History of migraine headache 03/17/2021 Last Documented On 1 4:06PM ; [facility] History of psychiatric disorders biopola r disorder 03/17/2021 Last Documented On 1 4:06PM ; [facility] Work Phone: 1(862) 106-863403-27-2024 Progress note* Progress note Date Encounter Last Documented by 01/17/2024 Medical Established Patient Last documented on 01/17/2024; 7:50 PM, Denny Lomeli CNP; [facility] Active Problems & Conditions - F90.9 - Attention-deficit Hyperactivity Disorder - F31.31 - Bipolar I Disorder, Most Recent Episode, Depressed Mild - F43.10 - Post-traumatic Stress Disorder Chief Complaint The Chief Complaint is: Patient was D/C'd from [facility] in [place] for no call no show. Patient needs [...] over psych meds , got dismissed from [facility] r/t no shows. has felt stable [...] MG Oral Tablet AM and PM per [facility] in [place], 30 days, 0 refills - MiraLax 17 [...] BP-Sitting R134/88 mmHg BP Cuff SizeLarge Pulse Rate-Hxpchdb140 bpm Dtyhae57 in Oanvbp501 lbs Body Mass Index52.7 kg/m2 Body Surface Area2.3 m2 Oxygen Qfxramsczd74 % Vital Signs: - Systolic blood pressure [...] transmiss Outside Labs/Microbiology: All 3 Urine Test Ottorldyw-Caicbrdmq-Rusqtfktspj EndCited StartCited- Other Follow-up Appointment 2 month [...] Less than 40 years (0 points) [Pre-DM]. [facility]03-27-2024 Progress note* Progress note Date Encounter Last Documented by 01/17/2024 Established Patient Last docu mented on 01/18/2024; 5:16 PM, Kinga RUDOLPH; [facility] Active Problems & Conditions - F90.9 - Attention-deficit Hyperactivity Disorder - F31.31 - Bipolar I Disorder, Most Recent Episode, Depressed Mild - F43.10 - Post-traumatic Stress Disorder Chief Complaint The Chief Complaint is: [facility] met with patient to follow-up regarding mood and medications and discuss PHQ score of 2. Patient reports recently getting dismissed from services at a [facility] in [place] due to missing appointments. Patient reports being [...] MG Oral Tablet AM and PM per [facility] in [place], 30 days, 0 refills - MiraLax 17 [...] processed current stressors related to getting medications. P discussed coping skills and supports to implement [...] No, unable to get needed child and family services worker: No, unable to get other needs No, [...] + 0 pt : Not at all. [facility]07-19-2023 Progress note* Progress note Date Encounter Last Documented by 05/10/2023 Medical Established Patient Last documented on 05/10/2023; 6:01 PM, Denny Lomeli CNP; [facility] Active Problems & Conditions - F31.10 [...] does see Belkis Clarke a counselor at [facility] Currently only taking Metformin d/t PCOS Current Medication - Aldactazide 50-50 MG Oral Tablet take 1 tablet by mouth once daily, 30 days, 11 refills - metFORMIN HCl 500 MG Oral Tablet AM and PM per [facility] in [place], 30 days, 0 refills - MiraLax 17 [...] BP-Sitting L111/76 mmHg BP Cuff SizeLarge Pulse Rate-Iwupvwa19 bpm Temp-Oral98.2 F Lfrsri44 in Flqbht084 lbs Body Mass Index32.8 kg/m2 Body Surface Area1.9 m2 Oxygen Lfcwtzxrtf36 % Vital Signs: - Systolic blood pressure [...] Plan BMI Management satisfied 05/10/2023. [facility]10-21-2022 Evaluation note Includes: Assessments for all patient encounters Findings Encounter Date Assessment of body mass index Medical Es tablished Patient with Denny Armani [facility] 08/12/2022 Bipolar affective disorder, current episode manic Telebehavioral Health with Belkis Velarde [facility] 06/16/2022 Bipolar affective disorder, current episode manic Established Patient with Belkis Coffeyerson [facility] 06/15/2022 Bipolar affective disorder, current episode depressed, severe with psychosis [facility]behavior[facility] Health with Belkis Velarde [facility] 06/15/2022 Assessment of body mass inde x [Body mass index [BMI] 50.0-59.9, adult] Open Access - Established with Leah Amyaa [facility] 06/15/2022 Bipolar I disorder, most rec ent episode, manic Open Access - Established with Leah Amaya [facility] 06/15/2022 Post-traumatic stress disorder Establ ished Patient with Belkisdionna CoffeyVelarde [facility] 06/08/2022 No cough Medical Established Patient with Denny Landonen [facility] 06/08/2022 Z68.43 - Body mass index [BM I] 50.0-59.9, adult Medical Established Patient with Denny Armani [facility] 06/08/2022 Borderline personality disor kyree Pt reported hx of sx/dx Established Patient with Belkis Velarde [facility] 05/27/2022 Assessment of body mass inde x [Body mass index [BMI] 50.0-59.9, adult] Open Access - Established with Leah Monique [employer] 05/27/2022 Diabetes Risk Test Score was three score 05/27/2022 Open Access - Established with Leah Monique [employer] 05/27/2022 Bipolar I disorder, most rec ent episode, manic Established Patient with Eufemia Mcneil [facility] 07/15/2021 Borderline personality disorder Estab lished Patient with Eufemia Mcneil [facility] 07/15/2021 Post-traumatic stress disorder Establ ished Patient with Eufemia Mcneil [facility] 07/15/2021 Assessment of visit for: lloyd strange for human immunodeficiency virus Medical Established Patient with Denny Armani [employer] 07/15/2021 Nicotine dependence Medical Established Patient with Denny Armani [employer] 07/15/2021 Tachycardia Medical Established Patient with Denny Armani [facility] 07/15/2021 Z68.43 - Body mass index [BM I] 50.0-59.9, adult Medical Established Patient with Denny Armani [employer] 07/15/2021 Bipolar I disorder, most rec ent episode, manic Established Patient with Kinga Short [facility] 06/17/2021 Borderline personality disor kyree per patient reported history Established Patient with Kinga Short [facility] 06/17/2021 Nicotine dependence Established Patie nt with Kinga Short [facility] 06/17/2021 Post-traumatic stress disorder Establ ished Patient with Kinga Short [facility] 06/17/2021 Body mass index Medical Established Patient with Denny Armani [employer] 06/17/2021 Morbid obesity Medical Established Patient with Denny Armani [employer] 06/17/2021 Nicotine dependence uncomplicated Medica l Established Patient with Denny Armani [employer] 06/17/2021 Z68.42 - Body mass index [BM I] 45.0-49.9, adult Medical Established Patient with Denny Armani [employer] 06/17/2021 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 disorders 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 [facility] 05/15/2021 Mood disorders, NOS per blaze ent reported history Established Patient with Kinga Short [facility] 04/23/2021 Post-traumatic stress disorder BH Establ ished Patient with Kinga Short [facility] 04/23/2021 Morbid obesity Medical Established Patient with Denny Armani [employer] 04/23/2021 Otitis externa Medical Established Patient with Denny Armani [employer] 04/23/2021 Z68.42 - Body mass index [BM I] 45.0-49.9, adult Medical Established Patient with Denny Armani [employer] 04/23/2021 Post-traumatic stress disorder BH Establ ished Patient with Kinga Short [facility] 04/01/2021 Morbid obesity Medical Established Patient with Denny Armani [employer] 04/01/2021 Z68.42 - Body mass index [BM I] 45.0-49.9, adult Medical Established Patient with Denny Armani [employer] 04/01/2021 Post-traumatic stress disorder BH Establ ished Patient with Kinga Short [facility] 03/17/2021 Assessment of visit for: lloyd strange for human immunodeficiency virus Medical New Patient with Denny Armani [employer] 03/17/2021 Diabetes Risk Test Score was one score 03/17/2021 Medical New Patient with Denny Armani [employer] 03/17/2021 Hypertension Medical New Patient with Denny Armani [employer] 03/17/2021 Morbid obesity Medical New Patient with Denny Armani [employer] 03/17/2021 Post-traumatic stress disorder Medical N ew Patient with Denny Armani [employer] 03/17/2021 Z68.42 - Body mass index [BM I] 45.0-49.9, adult Medical New Patient with Denny Armani [employer] 03/17/2021 [facility] Work Phone: 1(310) 744-417108-25-2022 Evaluation note Includes: Assessments for all patient encounters Findings Encounter Date Bipolar affective disorder, current episode manic Telebehavioral Health with Belkis Velarde [facility] 06/16/2022 Bipolar affective disorder, current episode manic Established Patient with Belkisdionna Velarde [facility] 06/15/2022 Bipolar affective disorder, current episode depressed, severe with psychosis Telebehavioral Health with Belkis Velarde [facility] 06/15/2022 Assessment of body mass inde x [Body mass index [BMI] 50.0-59.9, adult] Open Access - Established with Leah Amaya [facility] 06/15/2022 Bipolar I disorder, most rec ent episode, manic Open Access - Established with Leah Monique [employer] 06/15/2022 Post-traumatic stress disorder Establ ished Patient with Belkisdionna Velarde [facility] 06/08/2022 No cough Medical Established Patient with Dennyartem Lomeli [employer] 06/08/2022 Z68.43 - Body mass index [BM I] 50.0-59.9, adult Medical Established Patient with Denny Armani [employer] 06/08/2022 Borderline personality disor kyree Pt reported hx of sx/dx Established Patient with Belkis Velarde [facility] 05/27/2022 Assessment of body mass inde x [Body mass index [BMI] 50.0-59.9, adult] Open Access - Established with Leah Monique [employer] 05/27/2022 Diabetes Risk Test Score was three score 05/27/2022 Open Access - Established with Leah Monique [employer] 05/27/2022 Bipolar I disorder, most rec ent episode, manic Established Patient with Eufemia Mcneil [facility] 07/15/2021 Borderline personality disorder Estab lished Patient with Eufemia Mcneil [facility] 07/15/2021 Post-traumatic stress disorder Establ ished Patient with Eufemia Mcneil [facility] 07/15/2021 Assessment of visit for: lloyd strange for human immunodeficiency virus Medical Established Patient with Denny Armani [employer] 07/15/2021 Nicotine dependence Medical Established Patient with Denny Armani [employer] 07/15/2021 Tachycardia Medical Established Patient with Denny Armani [facility] 07/15/2021 Z68.43 - Body mass index [BM I] 50.0-59.9, adult Medical Established Patient with Denny Armani [employer] 07/15/2021 Bipolar I disorder, most rec ent episode, manic Established Patient with Kinga Short [facility] 06/17/2021 Borderline personality disor kyree per patient reported history BH Established Patient with Kinga Short [facility] 06/17/2021 Nicotine dependence Established Patie nt with Kinga Short [facility] 06/17/2021 Post-traumatic stress disorder Establ ished Patient with Kinga Short [facility] 06/17/2021 Body mass index Medical Established Patient with Denny Armani [employer] 06/17/2021 Morbid obesity Medical Established Patient with Denny Armani [employer] 06/17/2021 Nicotine dependence uncomplicated Medica l Established Patient with Denny Armani [employer] 06/17/2021 Z68.42 - Body mass index [BM I] 45.0-49.9, adult Medical Established Patient with Denny Armani [employer] 06/17/2021 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 disorders 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 [facility] 05/15/2021 Mood disorders, NOS per blaze ent reported history BH Established Patient with Kinga Short [facility] 04/23/2021 Post-traumatic stress disorder BH Establ ished Patient with Kinga Short [facility] 04/23/2021 Morbid obesity Medical Established Patient with Denny Armani [employer] 04/23/2021 Otitis externa Medical Established Patient with Denny Armani [employer] 04/23/2021 Z68.42 - Body mass index [BM I] 45.0-49.9, adult Medical Established Patient with Denny Armani [employer] 04/23/2021 Post-traumatic stress disorder BH Establ ished Patient with Kinga Short [facility] 04/01/2021 Morbid obesity Medical Established Patient with Denny Armani [employer] 04/01/2021 Z68.42 - Body mass index [BM I] 45.0-49.9, adult Medical Established Patient with Denny Armani [employer] 04/01/2021 Post-traumatic stress disorder BH Establ ished Patient with Kinga Short [facility] 03/17/2021 Assessment of visit for: lloyd strange for human immunodeficiency virus Medical New Patient with Denny Armani [employer] 03/17/2021 Diabetes Risk Test Score was one score 03/17/2021 Medical New Patient with Denny Armani [employer] 03/17/2021 Hypertension Medical New Patient with Denny Armani [employer] 03/17/2021 Morbid obesity Medical New Patient with Denny Armani [employer] 03/17/2021 Post-traumatic stress disorder Medical N ew Patient with Denny Armani [employer] 03/17/2021 Z68.42 - Body mass index [BM I] 45.0-49.9, adult Medical New Patient with Denny Armani [employer] 03/17/2021 [facility] Work Phone: 1(659) 564-133008-24-2022 Evaluation note Includes: Assessments for all patient encounters Findings Encounter Date Bipolar affective disorder, current episode depressed, severe with psychosis Telebehavioral Health with Belkisdionna Velarde [facility] 06/15/2022 Assessment of body mass inde x [Body mass index [BMI] 50.0-59.9, adult] Open Access - Established with Leah Monique [employer] 06/15/2022 Post-traumatic stress disorder Establ ished Patient with Belkis Velarde [facility] 06/08/2022 No cough Medical Established Patient with Dennyartem Landonen [employer] 06/08/2022 Z68.43 - Body mass index [BM I] 50.0-59.9, adult Medical Established Patient with Denny Armani [employer] 06/08/2022 Borderline personality disor kyree Pt reported hx of sx/dx Established Patient with Belkisdionna Velarde [facility] 05/27/2022 Assessment of body mass inde x [Body mass index [BMI] 50.0-59.9, adult] Open Access - Established with Leah Monique [employer] 05/27/2022 Diabetes Risk Test Score was three score 05/27/2022 Open Access - Established with Leah Monique [employer] 05/27/2022 Bipolar I disorder, most rec ent episode, manic Established Patient with Eufemia Mcneil [facility] 07/15/2021 Borderline personality disorder Estab lished Patient with Eufemia Mcneil [facility] 07/15/2021 Post-traumatic stress disorder Establ ished Patient with Eufemia Mcneil [facility] 07/15/2021 Assessment of visit for: lloyd strange for human immunodeficiency virus Medical Established Patient with Denny Armani [employer] 07/15/2021 Nicotine dependence Medical Established Patient with Denny Armani [employer] 07/15/2021 Tachycardia Medical Established Patient with Denny Armani [employer] 07/15/2021 Z68.43 - Body mass index [BM I] 50.0-59.9, adult Medical Established Patient with Denny Armani [employer] 07/15/2021 Bipolar I disorder, most rec ent episode, manic Established Patient with Kinga Short [facility] 06/17/2021 Borderline personality disor kyree per patient reported history Established Patient with Kinga Short [facility] 06/17/2021 Nicotine dependence Established Patie nt with Kinga Short [facility] 06/17/2021 Post-traumatic stress disorder BH Establ ished Patient with Kinga Short [facility] 06/17/2021 Body mass index Medical Established Patient with Denny Armani [employer] 06/17/2021 Morbid obesity Medical Established Patient with Denny Armani [employer] 06/17/2021 Nicotine dependence uncomplicated Medica l Established Patient with Denny Armani [employer] 06/17/2021 Z68.42 - Body mass index [BM I] 45.0-49.9, adult Medical Established Patient with Denny Armani [employer] 06/17/2021 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 disorders 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 [facility] 05/15/2021 Mood disorders, NOS per blaze ent reported history BH Established Patient with Kinga Short [facility] 04/23/2021 Post-traumatic stress disorder BH Establ ished Patient with Kinga Short [facility] 04/23/2021 Morbid obesity Medical Established Patient with Denny Armani [employer] 04/23/2021 Otitis externa Medical Established Patient with Denny Armani [employer] 04/23/2021 Z68.42 - Body mass index [BM I] 45.0-49.9, adult Medical Established Patient with Denny Armani [employer] 04/23/2021 Post-traumatic stress disorder BH Establ ished Patient with Kinga Short [facility] 04/01/2021 Morbid obesity Medical Established Patient with Denny Armani [employer] 04/01/2021 Z68.42 - Body mass index [BM I] 45.0-49.9, adult Medical Established Patient with Denny Armani [employer] 04/01/2021 Post-traumatic stress disorder BH Establ ished Patient with Kinga Short [facility] 03/17/2021 Assessment of visit for: lloyd strange for human immunodeficiency virus Medical New Patient with Denny Armani [employer] 03/17/2021 Diabetes Risk Test Score was one score 03/17/2021 Medical New Patient with Denny Armani [employer] 03/17/2021 Hypertension Medical New Patient with Denny Armani [employer] 03/17/2021 Morbid obesity Medical New Patient with Denny Armani [employer] 03/17/2021 Post-traumatic stress disorder Medical N ew Patient with Denny Armani [employer] 03/17/2021 Z68.42 - Body mass index [BM I] 45.0-49.9, adult Medical New Patient with Denny Armani [employer] 03/17/2021 [facility] Work Phone: 1(316) [phone] Evaluation note Includes: Assessments for all patient encounters Findings Encounter Date Bipolar affective disorder, current episode depressed, severe with psychosis Telebehavioral Health with Belkisdionna Velarde [facility] 06/15/2022 Assessment of body mass inde x [Body mass index [BMI] 50.0-59.9, adult] Open Access - Established with Leah Monique [employer] 06/15/2022 Bipolar I disorder, most rec ent episode, manic Open Access - Established with Leah Monique [employer] 06/15/2022 Post-traumatic stress disorder Establ ished Patient with Belkisdionna Velarde [facility] 06/08/2022 No cough Medical Established Patient with Denny Armani [facility] 06/08/2022 Z68.43 - Body mass index [BM I] 50.0-59.9, adult Medical Established Patient with Dennyartem Lomeli [facility] 06/08/2022 Borderline personality disor kyree Pt reported hx of sx/dx Established Patient with Belkisdionna Velarde [facility] 05/27/2022 Assessment of body mass inde x [Body mass index [BMI] 50.0-59.9, adult] Open Access - Established with Leah Monique [employer] 05/27/2022 Diabetes Risk Test Score was three score 05/27/2022 Open Access - Established with Elah Monique [employer] 05/27/2022 Bipolar I disorder, most rec ent episode, manic Established Patient with Eufemia Mcneil [facility] 07/15/2021 Borderline personality disorder Estab lished Patient with Eufemia Mcneil [facility] 07/15/2021 Post-traumatic stress disorder Establ ished Patient with Eufemia Mcneil [facility] 07/15/2021 Assessment of visit for: lloyd strange for human immunodeficiency virus Medical Established Patient with Dennyartem Lomeli [employer] 07/15/2021 Nicotine dependence Medical Established Patient with Dennyartem Lomeli [employer] 07/15/2021 Tachycardia Medical Established Patient with Dennyartem Lomeli [facility] 07/15/2021 Z68.43 - Body mass index [BM I] 50.0-59.9, adult Medical Established Patient with Dennyartem Lomeli [employer] 07/15/2021 Bipolar I disorder, most rec ent [...] index Medical Established Patient with Denny Armani [employer] 06/17/2021 Morbid obesity Medical Established Patient with Denny Armani [employer] 06/17/2021 Nicotine dependence uncomplicated Medica l Established Patient with Denny Armani [employer] 06/17/2021 Z68.42 - Body mass index [BM I] 45.0-49.9, adult Medical Established Patient with Denny Armani [employer] 06/17/2021 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 disorders 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 [employer] 05/15/2021 Mood disorders, NOS per blaze ent reported history Established Patient with Kinga Short [facility] 04/23/2021 Post-traumatic stress disorder Establ ished Patient with Kinga Short [facility] 04/23/2021 Morbid obesity Medical Established Patient with Denny Armani [employer] 04/23/2021 Otitis externa Medical Established Patient with Denny Armani [employer] 04/23/2021 Z68.42 - Body mass index [BM I] 45.0-49.9, adult Medical Established Patient with Denny Armani [employer] 04/23/2021 Post-traumatic stress disorder BH Establ ished Patient with Kinga Short [facility] 04/01/2021 Morbid obesity Medical Established Patient with Denny Armani [employer] 04/01/2021 Z68.42 - Body mass index [BM I] 45.0-49.9, adult Medical Established Patient with Denny Armani [employer] 04/01/2021 Post-traumatic stress disorder BH Establ ished Patient with Kinga Short [facility] 03/17/2021 Assessment of visit for: lloyd strange for human immunodeficiency virus Medical New Patient with Denny Armani [employer] 03/17/2021 Diabetes Risk Test Score was one score 03/17/2021 Medical New Patient with Denny Armani [employer] 03/17/2021 Hypertension Medical New Patient with Denny Armani [employer] 03/17/2021 Morbid obesity Medical New Patient with Denny Armani [employer] 03/17/2021 Post-traumatic stress disorder Medical N ew Patient with Dennyartem Lomeli [employer] 03/17/2021 Z68.42 - Body mass index [BM I] 45.0-49.9, adult Medical New Patient with Denny Lomeli [employer] 03/17/2021 [facility] Work Phone: 1(712) 335-544708-24-2022 Evaluation note Includes: Assessments for all patient encounters Findings Encounter Date Bipolar affective disorder, current episode manic Established Patient with Belkis Velarde [facility] 06/15/2022 Bipolar affective disorder, current episode depressed, severe with [facility] with Belkisdionna Velarde [facility] 06/15/2022 Assessment of body mass inde x [Body mass index [BMI] 50.0-59.9, adult] Open Access - Established with Leah Monique [employer] 06/15/2022 Bipolar I disorder, most rec ent episode, manic Open Access - Established with Leah Monique [employer] 06/15/2022 Post-traumatic stress disorder Establ ished Patient with Belkisdionna Velarde [facility] 06/08/2022 No cough Medical Established Patient with Dennyartem Lomeli [facility] 06/08/2022 Z68.43 - Body mass index [BM I] 50.0-59.9, adult Medical Established Patient with Dennyartem Lomeli [employer] 06/08/2022 Borderline personality disor kyree Pt reported hx of sx/dx Established Patient with Belkisdionna Velarde [facility] 05/27/2022 Assessment of body mass inde x [Body mass index [BMI] 50.0-59.9, adult] Open Access - Established with Leah Monique [employer] 05/27/2022 Diabetes Risk Test Score was three score 05/27/2022 Open Access - Established with Leah Monique [employer] 05/27/2022 Bipolar I disorder, most rec ent episode, manic Established Patient with Eufemiahola Brashers [facility] 07/15/2021 Borderline personality disorder Estab lished Patient with Eufemia Mcneil [facility] 07/15/2021 Post-traumatic stress disorder Establ ished Patient with Eufemia Mcneil [facility] 07/15/2021 Assessment of visit for: lloyd strange for human immunodeficiency virus Medical Established Patient with Denny Armani [employer] 07/15/2021 Nicotine dependence Medical Established Patient with Denny Armani [employer] 07/15/2021 Tachycardia Medical Established Patient with Denny Armani [employer] 07/15/2021 Z68.43 - Body mass index [BM I] 50.0-59.9, adult Medical Established Patient with Denny Armani [employer] 07/15/2021 Bipolar I disorder, most rec ent episode, manic Established Patient with Kinga Short [facility] 06/17/2021 Borderline personality disor kyree per patient reported history Established Patient with Kinga Short [facility] 06/17/2021 Nicotine dependence BH Established Patie nt with Kinga Short LIS[facility] 06/17/2021 Post-traumatic stress disorder Establ ished Patient with Kinga Short [facility] 06/17/2021 Body mass index Medical Established Patient with Denny Armani [employer] 06/17/2021 Morbid obesity Medical Established Patient with Denny Armani [employer] 06/17/2021 Nicotine dependence uncomplicated Medica l Established Patient with Denny Armani [employer] 06/17/2021 Z68.42 - Body mass index [BM I] 45.0-49.9, adult Medical Established Patient with Denny Armani [employer] 06/17/2021 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 disorders 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 [facility] 05/15/2021 Mood disorders, NOS per blaze ent reported history Established Patient with Kinga Short [facility] 04/23/2021 Post-traumatic stress disorder Establ ished Patient with Iknga Short [facility] 04/23/2021 Morbid obesity Medical Established Patient with Denny Armani [employer] 04/23/2021 Otitis externa Medical Established Patient with Denny Armani [employer] 04/23/2021 Z68.42 - Body mass index [BM I] 45.0-49.9, adult Medical Established Patient with Denny Armani [employer] 04/23/2021 Post-traumatic stress disorder BH Establ ished Patient with Kinga Short [facility]IS[facility] 04/01/2021 Morbid obesity Medical Established Patient with Denny Armani [employer] 04/01/2021 Z68.42 - Body mass index [BM I] 45.0-49.9, adult Medical Established Patient with Denny Armani [employer] 04/01/2021 Post-traumatic stress disorder BH Establ ished Patient with Kinga Short [facility] 03/17/2021 Assessment of visit for: lloyd strange for human immunodeficiency virus Medical New Patient with Denny Armani [employer] 03/17/2021 Diabetes Risk Test Score was one score 03/17/2021 Medical New Patient with Denny Armani [employer] 03/17/2021 Hypertension Medical New Patient with Denny Armani [employer] 03/17/2021 Morbid obesity Medical New Patient with Denny Armani [employer] 03/17/2021 Post-traumatic stress disorder Medical N ew Patient with Denny Armani [employer] 03/17/2021 Z68.42 - Body mass index [BM I] 45.0-49.9, adult Medical New Patient with Denny Armani [employer] 03/17/2021 [facility] Work Phone: 1(636) 726-422608-17-2022 Evaluation note Includes: Assessments for all patient encounters Findings Encounter Date Post-traumatic stress disorder BH Establ ished Patient with Belkisdionna [facility]Vel[facility] 06/08/2022 No cough Medical Established Patient with Denny Armani [employer] 06/08/2022 Z68.43 - Body mass index [BM I] 50.0-59.9, adult Medical Established Patient with Denny Armani [employer] 06/08/2022 Borderline personality disor kyree Pt reported hx of sx/dx Established Patient with Belkis Velarde [facility] 05/27/2022 Assessment of body mass inde x [Body mass index [BMI] 50.0-59.9, adult] Open Access - Established with Leah Amaya [employer] 05/27/2022 Diabetes Risk Test Score was three score 05/27/2022 Open Access - Established with Leah Monique [employer] 05/27/2022 Bipolar I disorder, most rec ent episode, manic Established Patient with Eufemiahola Brashers [facility] 07/15/2021 Borderline personality disorder BH Estab lished Patient with Eufemia Mcneil [facility] 07/15/2021 Post-traumatic stress disorder BH Establ ished Patient with Eufemia Mcneil [facility] 07/15/2021 Assessment of visit for: lloyd strange for human immunodeficiency virus Medical Established Patient with Denny Armani [employer] 07/15/2021 Nicotine dependence Medical Established Patient with Denny Armani [employer] 07/15/2021 Tachycardia Medical Established Patient with Denny Armani [employer] 07/15/2021 Z68.43 - Body mass index [BM I] 50.0-59.9, adult Medical Established Patient with Denny Armani [employer] 07/15/2021 Bipolar I disorder, most rec ent episode, manic Established Patient with Kinga Short LISWS 06/17/2021 Borderline personality disor kyree per patient reported history BH Established Patient with Kinga Short LISWS 06/17/2021 Nicotine dependence BH Established Patie nt with Kinga Short LISWS 06/17/2021 Post-traumatic stress disorder Establ ished Patient with Kinga Short [facility] 06/17/2021 Body mass index Medical Established Patient with Denny Armani [employer] 06/17/2021 Morbid obesity Medical Established Patient with Denny Armani [employer] 06/17/2021 Nicotine dependence uncomplicated Medica l Established Patient with Denny Armani [employer] 06/17/2021 Z68.42 - Body mass index [BM I] 45.0-49.9, adult Medical Established Patient with Denny Armani [employer] 06/17/2021 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 disorders 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 [facility] 05/15/2021 Mood disorders, NOS per blaze ent reported history Established Patient with Kinga Short LIS[facility] 04/23/2021 Post-traumatic stress disorder Establ ished Patient with Kinga Short [facility]IS[facility] 04/23/2021 Morbid obesity Medical Established Patient with Ednny Armani [employer] 04/23/2021 Otitis externa Medical Established Patient with Denny Armani [employer] 04/23/2021 Z68.42 - Body mass index [BM I] 45.0-49.9, adult Medical Established Patient with Denny Armani [employer] 04/23/2021 Post-traumatic stress disorder BH Establ ished Patient with Kinga Short LISWS 04/01/2021 Morbid obesity Medical Established Patient with Denny Armani [employer] 04/01/2021 Z68.42 - Body mass index [BM I] 45.0-49.9, adult Medical Established Patient with Denny Armani [employer] 04/01/2021 Post-traumatic stress disorder BH Establ ished Patient with Kinga Short LISWS 03/17/2021 Assessment of visit for: lloyd strange for human immunodeficiency virus Medical New Patient with Denny Armani [employer] 03/17/2021 Diabetes Risk Test Score was one score 03/17/2021 Medical New Patient with Denny Lomeli [employer] 03/17/2021 Hypertension Medical New Patient with Denny Lomeli [employer] 03/17/2021 Morbid obesity Medical New Patient with Denny Lomeli [employer] 03/17/2021 Post-traumatic stress disorder Medical N ew Patient with Denny Lomeli CNP 03/17/2021 Z68.42 - Body mass index [BM I] 45.0-49.9, adult Medical New Patient with Denny Lomeli CNP 03/17/2021 [facility] Work Phone: 1(284) 927-164308-17-2022 History general Narrative - Reported Includes: Medical [...] of psychiatric disorders biopola r disorder 03/17/2021 [facility] Work Phone: 1(706) 680-660408-05-2022 Evaluation note Includes: Assessments for all patient [...] - Established with Leah Amaya CNP 05/27/2022 Bipolar I disorder, most rec ent episode, manic Established Patient with Eufemia Mcneil [facility] 07/15/2021 Borderline personality disorder Estab lished Patient with Eufemiahola Brashers [facility] 07/15/2021 Post-traumatic stress disorder Establ ished Patient with Eufemia Spencemons [facility] 07/15/2021 Assessment of visit for: lloyd strange for human immunodeficiency virus Medical Established Patient with Denny Armani [employer] 07/15/2021 Nicotine dependence Medical Established Patient with Denny Armani [employer] 07/15/2021 Tachycardia Medical Established Patient with Denny Armani [employer] 07/15/2021 Z68.43 - Body mass index [BM I] 50.0-59.9, adult Medical Established Patient with Denny Armani [employer] 07/15/2021 Bipolar I disorder, most rec ent episode, manic Established Patient with Kinga Short LISWS 06/17/2021 Borderline personality disor kyree per patient reported history Established Patient with Kinga Short LISWS 06/17/2021 Nicotine dependence Established Patie nt with Kinga Short LISWS 06/17/2021 Post-traumatic stress disorder Establ ished Patient with Kinga Short [facility]IS[facility] 06/17/2021 Body mass index Medical Established Patient with Denny Armani [employer] 06/17/2021 Morbid obesity Medical Established Patient with Denny Armani [employer] 06/17/2021 Nicotine dependence uncomplicated Medica l Established Patient with Denny Armani [employer] 06/17/2021 Z68.42 - Body mass index [BM I] 45.0-49.9, adult Medical Established Patient with Denny Armani [employer] 06/17/2021 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 disorders 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 [facility] 05/15/2021 Mood disorders, NOS per blaze ent reported history Established Patient with Kinga Short LISWS 04/23/2021 Post-traumatic stress disorder Establ ished Patient with Kinga Short LISWS 04/23/2021 Morbid obesity Medical Established Patient with Denny Armani [employer] 04/23/2021 Otitis externa Medical Established Patient with Denny Armani [employer] 04/23/2021 Z68.42 - Body mass index [BM I] 45.0-49.9, adult Medical Established Patient with Denny Armani [employer] 04/23/2021 Post-traumatic stress disorder BH Establ ished Patient with Kinga Short LISWS 04/01/2021 Morbid obesity Medical Established Patient with Denny Armani [employer] 04/01/2021 Z68.42 - Body mass index [BM I] 45.0-49.9, adult Medical Established Patient with Denny Lomeli CNP 04/01/2021 Post-traumatic stress disorder BH Establ ished [...] New Patient with Denny Lomeli CNP 03/17/2021 [facility] Work Phone: 1(345) 520-440008-05-2022 Reason for referral (narrative)* Date Encounter Description Provider Reason for Referral 05/27/22 Established Patient Belkis Syd SOLORZANO CC-S Referral To Mental Health Team 03/17/21 Medical New Patient Denny Lomeli CNP Refe rral To Mental Health Team [facility] Work Phone: 1(671) 359-163910-04-2021 History of Present illness Narrative* Jazmine Dodge - 07/26/2021 1:30 PM EDT Explained Holter monitor and diary. [facility] 1(593) [phone] Evaluation note Includes: Assessments for all patient encounters Findings Encounter Date Bipolar I disorder, most rec ent episode, manic Established Patient with Eufemia Mcneil [facility] 07/15/2021 Borderline personality disorder Estab lished Patient with Eufemia Mcneil [facility] 07/15/2021 Assessment of visit for: scr eening for human immunodeficiency virus Medical Established Patient with Denny Lomeli [employer] 07/15/2021 Nicotine dependence Medical Established Patient with Denny Lomeli [employer] 07/15/2021 Tachycardia Medical Established Patient with Denny Armani [employer] 07/15/2021 Z68.43 - Body mass index [BM I] 50.0-59.9, adult Medical Established Patient with Denny Armani [employer] 07/15/2021 Bipolar I disorder, most rec ent episode, manic Established Patient with Kinga Short LISWS 06/17/2021 Borderline personality disor kyree per patient reported history Established Patient with Kinga Short LISWS 06/17/2021 Nicotine dependence BH Established Patie nt with Kinga Short LISWS 06/17/2021 Post-traumatic stress disorder Establ ished Patient with Kinga Short LISWS 06/17/2021 Body mass index Medical Established Patient with Denny Armani [employer] 06/17/2021 Morbid obesity Medical Established Patient with Denny Armani [employer] 06/17/2021 Nicotine dependence uncomplicated Medica l Established Patient with Denny Armani [employer] 06/17/2021 Z68.42 - Body mass index [BM I] 45.0-49.9, adult Medical Established Patient with Denny Armani [employer] 06/17/2021 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 disorders 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 [facility] 05/15/2021 Mood disorders, NOS per blaze ent reported history Established Patient with Kinga Short LISWS 04/23/2021 Post-traumatic stress disorder Establ ished Patient with Kinga Short LISWS 04/23/2021 Morbid obesity Medical Established Patient with Denny Armani [employer] 04/23/2021 Otitis externa Medical Established Patient with Denny Armani [employer] 04/23/2021 Z68.42 - Body mass index [BM I] 45.0-49.9, adult Medical Established Patient with Denny Armani [employer] 04/23/2021 Post-traumatic stress disorder BH Establ ished Patient with Kinga Short LISWS 04/01/2021 Morbid obesity Medical Established Patient with Denny Armani [employer] 04/01/2021 Z68.42 - Body mass index [BM I] 45.0-49.9, adult Medical Established Patient with Denny Armani [employer] 04/01/2021 Post-traumatic stress disorder BH Establ ished Patient with Kinga Short LISWS 03/17/2021 Assessment of visit for: lloyd strange for human immunodeficiency virus Medical New Patient with Denny Armani [employer] 03/17/2021 Diabetes Risk Test Score was one score 03/17/2021 Medical New Patient with Denny Lomeli [employer] 03/17/2021 Hypertension Medical New Patient with Dennyartem Landonen [employer] 03/17/2021 Morbid obesity Medical New Patient with Denny Armani [employer] 03/17/2021 Post-traumatic stress disorder Medical N ew Patient with Denny Armani [employer] 03/17/2021 Z68.42 - Body mass index [BM I] 45.0-49.9, adult Medical New Patient with Dennyartem Lomeli [employer] 03/17/2021 [facility] Work Phone: 1(360) [phone] Evaluation note Includes: Assessments for all patient [...] virus Medical Established Patient with Denny Armani [employer] 07/15/2021 Nicotine dependence Medical Established Patient with Denny Armani [employer] 07/15/2021 Tachycardia Medical Established Patient with Denny Armani [employer] 07/15/2021 Z68.43 - Body mass index [BM I] 50.0-59.9, adult Medical Established Patient with Denny Armani [employer] 07/15/2021 Bipolar I disorder, most rec ent episode, manic Established Patient with Kinga Short LISWS 06/17/2021 Borderline personality disor kyree per patient reported history BH Established Patient with Kinga Short LISWS 06/17/2021 Nicotine dependence Established Patie nt with Kinga Short LISWS 06/17/2021 Post-traumatic stress disorder Establ ished Patient with Kinga Short LISWS 06/17/2021 Body mass index Medical Established Patient with Denny Armani [employer] 06/17/2021 Morbid obesity Medical Established Patient with Denny Armani [employer] 06/17/2021 Nicotine dependence uncomplicated Medica l Established Patient with Denny Armani [employer] 06/17/2021 Z68.42 - Body mass index [BM I] 45.0-49.9, adult Medical Established Patient with Denny Armani [employer] 06/17/2021 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 disorders 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 [facility] 05/15/2021 Mood disorders, NOS per blaze ent reported history BH Established Patient with Kinga Short LISWS 04/23/2021 Post-traumatic stress disorder Establ ished Patient with Kinga Short LISWS 04/23/2021 Morbid obesity Medical Established Patient with Denny Armani [employer] 04/23/2021 Otitis externa Medical Established Patient with Denny Armani [employer] 04/23/2021 Z68.42 - Body mass index [BM I] 45.0-49.9, adult Medical Established Patient with Denny Armani [employer] 04/23/2021 Post-traumatic stress disorder Establ ished Patient with Kinga Short LISWS 04/01/2021 Morbid obesity Medical Established Patient with Denny Armani [employer] 04/01/2021 Z68.42 - Body mass index [BM I] 45.0-49.9, adult Medical Established Patient with Denny Armani [employer] 04/01/2021 Post-traumatic stress disorder Establ ished Patient with Kinga Short LISWS 03/17/2021 Assessment of visit for: lloyd strange for human immunodeficiency virus Medical New Patient with Denny Armani [employer] 03/17/2021 Diabetes Risk Test Score was one score 03/17/2021 Medical New Patient with Denny Armani [employer] 03/17/2021 Hypertension Medical New Patient with Denny Armani [employer] 03/17/2021 Morbid obesity Medical New Patient with Denny Armani [employer] 03/17/2021 Post-traumatic stress disorder Medical N ew Patient with Denny Armani [employer] 03/17/2021 Z68.42 - Body mass index [BM I] 45.0-49.9, adult Medical New Patient with Denny Armani [employer] 03/17/2021 [facility] Work Phone: 1([phone]) [phone] Evaluation note Includes: Assessments for all patient [...] index Medical Established Patient with Denny Armani [employer] 06/17/2021 Morbid obesity Medical Established Patient with Denny Armani [employer] 06/17/2021 Nicotine dependence uncomplicated Medica l Established Patient with Denny Armani [employer] 06/17/2021 Z68.42 - Body mass index [BM I] 45.0-49.9, adult Medical Established Patient with Denny Armani [employer] 06/17/2021 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 disorders 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 [facility] 05/15/2021 Mood disorders, NOS per blaze ent reported history BH Established Patient with Kinga Short LISWS 04/23/2021 Post-traumatic stress disorder BH Establ ished Patient with Kinga Short LISWS 04/23/2021 Morbid obesity Medical Established Patient with Denny Armani [employer] 04/23/2021 Otitis externa Medical Established Patient with Denny Armani [employer] 04/23/2021 Z68.42 - Body mass index [BM I] 45.0-49.9, adult Medical Established Patient with Denny Armani [employer] 04/23/2021 Post-traumatic stress disorder BH Establ ished Patient with Kinga Short LISWS 04/01/2021 Morbid obesity Medical Established Patient with Denny Armani [employer] 04/01/2021 Z68.42 - Body mass index [BM I] 45.0-49.9, adult Medical Established Patient with Denny Armani [employer] 04/01/2021 Post-traumatic stress disorder Establ ished Patient with Kinga Short LISWS 03/17/2021 Assessment of visit for: lloyd strange for human immunodeficiency virus Medical New Patient with Denny Armani [employer] 03/17/2021 Diabetes Risk Test Score was one score 03/17/2021 Medical New Patient with Denny Armani [employer] 03/17/2021 Hypertension Medical New Patient with Denny Armani [employer] 03/17/2021 Morbid obesity Medical New Patient with Denny Armani [employer] 03/17/2021 Post-traumatic stress disorder Medical N ew Patient with Denny Armani [employer] 03/17/2021 Z68.42 - Body mass index [BM I] 45.0-49.9, adult Medical New Patient with Denny Armani [employer] 03/17/2021 [facility] Work Phone: 1(683) [phone] History general Narrative - Reported Includes: Medical History in patient's chart Description Last Updated Chronic illness 05/17/2021 Exposure to COVID-19 04/23/2021 Previous hospitalizations 04/23/2021 History of gynecologic disorder 03/17/20 21 History of Polycystic Ovarian Syndrome ( PCOS) 03/17/2021 History of anxiety disorder NOS 03/17/20 21 History of migraine headache 03/17/2021 History of psychiatric disorders biopola r disorder 03/17/2021 [facility] Work Phone: 1(169) 451-477807-24-2021 Evaluation note Includes: Assessments for all patient encounters Findings Encounter Date 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 disorders 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 [employer] 05/15/2021 Mood disorders, NOS per blaze ent reported history Established Patient with Kinga Short LISWS 04/23/2021 Post-traumatic stress disorder Establ ished Patient with Kinga Short LISWS 04/23/2021 Morbid obesity Medical Established Patient with Denny Armani [employer] 04/23/2021 Otitis externa Medical Established Patient with Denny Armani [employer] 04/23/2021 Z68.42 - Body mass index [BM I] 45.0-49.9, adult Medical Established Patient with Denny Armani [employer] 04/23/2021 Post-traumatic stress disorder Establ ished Patient with Kinga Short LISWS 04/01/2021 Morbid obesity Medical Established Patient with Denny Armani [employer] 04/01/2021 Z68.42 - Body mass index [BM I] 45.0-49.9, adult Medical Established Patient with Denny Armani [employer] 04/01/2021 Post-traumatic stress disorder Establ ished Patient with Kinga Short LISWS 03/17/2021 Assessment of visit for: lloyd strange for human immunodeficiency virus Medical New Patient with Denny Armani [employer] 03/17/2021 Diabetes Risk Test Score was one score 03/17/2021 Medical New Patient with Denny Armani [employer] 03/17/2021 Hypertension Medical New Patient with Denny Armani [employer] 03/17/2021 Morbid obesity Medical New Patient with Denny Armani [employer] 03/17/2021 Post-traumatic stress disorder Medical N ew Patient with Denny Armani [employer] 03/17/2021 Z68.42 - Body mass index [BM I] 45.0-49.9, adult Medical New Patient with Denny Armani [employer] 03/17/2021 [facility] Work Phone: 1(829) 411-129607-02-2021 Evaluation note Includes: Assessments for all patient encounters Findings Encounter Date Mood disorders, NOS per blaze ent reported history BH Established Patient with Kinga Short LISWS 04/23/2021 Post-traumatic stress disorder Establ ished Patient with Kinga Short LISWS 04/23/2021 Morbid obesity Medical Established Patient with Denny Armani [employer] 04/23/2021 Otitis externa Medical Established Patient with Denny Armani [employer] 04/23/2021 Z68.42 - Body mass index [BM I] 45.0-49.9, adult Medical Established Patient with Denny Armani [employer] 04/23/2021 Post-traumatic stress disorder BH Establ ished Patient with Kinga Short LISWS 04/01/2021 Morbid obesity Medical Established Patient with Denny Armani [employer] 04/01/2021 Z68.42 - Body mass index [BM I] 45.0-49.9, adult Medical Established Patient with Denny Armani [employer] 04/01/2021 Post-traumatic stress disorder BH Establ ished Patient with Kinga Short LISWS 03/17/2021 Assessment of visit for: lloyd strange for human immunodeficiency virus Medical New Patient with Denny Armani [employer] 03/17/2021 Diabetes Risk Test Score was one score 03/17/2021 Medical New Patient with Denny Armani [employer] 03/17/2021 Hypertension Medical New Patient with Denny Armani [employer] 03/17/2021 Morbid obesity Medical New Patient with Denny Armani [employer] 03/17/2021 Post-traumatic stress disorder Medical N ew Patient with Denny Armani [employer] 03/17/2021 Z68.42 - Body mass index [BM I] 45.0-49.9, adult Medical New Patient with Denny Armani [employer] 03/17/2021 [facility] Work Phone: 1(280) 956-298307-02-2021 History general Narrative - Reported Includes: Medical History in patient's chart Description Last Updated Exposure to COVID-19 04/23/2021 Previous hospitalizations 04/23/2021 History of gynecologic disorder 03/17/20 21 History of Polycystic Ovarian Syndrome ( PCOS) 03/17/2021 History of anxiety disorder NOS 03/17/20 21 History of migraine headache 03/17/2021 History of psychiatric disorders biopola r disorder 03/17/2021 [facility] Work Phone: 1(270) 529-638407-02-2021 History general Narrative - Reported Includes: Medical History in patient's chart Description Last Updated Chronic illness 05/17/2021 Exposure to COVID-19 04/23/2021 Previous hospitalizations 04/23/2021 History of gynecologic disorder 03/17/20 21 History of Polycystic Ovarian Syndrome ( PCOS) 03/17/2021 History of anxiety disorder NOS 03/17/20 21 History of migraine headache 03/17/2021 History of psychiatric disorders biopola r disorder 03/17/2021 [facility] Work Phone: 1([phone]) 145-791106-10-2021 Evaluation note Includes: Assessments for all patient encounters Findings Encounter Date Morbid obesity Medical Established Patient with Denny Armani [employer] 04/01/2021 Z68.42 - Body mass index [BM I] 45.0-49.9, adult Medical Established Patient with Denny Armani [employer] 04/01/2021 Post-traumatic stress disorder BH Establ ished Patient with Kinga Short LISWS 03/17/2021 Assessment of visit for: lloyd strange for human immunodeficiency virus Medical New Patient with Denny Armani [employer] 03/17/2021 Diabetes Risk Test Score was one score 03/17/2021 Medical New Patient with Denny Armani [employer] 03/17/2021 Hypertension Medical New Patient with Denny Armani [employer] 03/17/2021 Morbid obesity Medical New Patient with Denny Armani [employer] 03/17/2021 Post-traumatic stress disorder Medical N ew Patient with Denny Armani [employer] 03/17/2021 Z68.42 - Body mass index [BM I] 45.0-49.9, adult Medical New Patient with Denny Armani [employer] 03/17/2021 [facility] Work Phone: 1(304) 564-845805-26-2021 Evaluation note Includes: Assessments for all patient encounters Findings Encounter Date Post-traumatic stress disorder BH Establ ished Patient with Kinga Short LISWS 03/17/2021 Assessment of visit for: lloyd strange for human immunodeficiency virus Medical New Patient with Denny Lomeli [employer] 03/17/2021 Diabetes Risk Test Score was one score 03/17/2021 Medical New Patient with Denny Lomeli [employer] 03/17/2021 Hypertension Medical New Patient with Denny Lomeli [employer] 03/17/2021 Morbid obesity Medical New Patient with Denny Lomeli [employer] 03/17/2021 Post-traumatic stress disorder Medical N ew Patient with Denny Lomeli [employer] 03/17/2021 Z68.42 - Body mass index [BM I] 45.0-49.9, adult Medical New Patient with Denny Lomeli CNP 03/17/2021 [facility] Work Phone: 1(527) 258-795205-26-2021 History general Narrative - Reported Includes: Medical History in patient's chart Description Last Updated History of gynecologic disorder 03/17/20 21 History of Polycystic Ovarian Syndrome ( PCOS) 03/17/2021 History of anxiety disorder NOS 03/17/20 21 History of migraine headache 03/17/2021 History of psychiatric disorders biopola r disorder 03/17/2021 [facility] Work Phone: 1(497) 953-609005-26-2021 History general Narrative - Reported Includes: Medical History in patient's chart Description Last Updated Exposure to COVID-19 04/23/2021 Previous hospitalizations 04/23/2021 History of gynecologic disorder 03/17/20 21 History of Polycystic Ovarian Syndrome ( PCOS) 03/17/2021 History of anxiety disorder NOS 03/17/20 21 History of migraine headache 03/17/2021 History of psychiatric disorders biopola r disorder 03/17/2021 [facility] Work Phone: Evaluation note* Diagnosis Depression with suicidal ideation- [facility] note Includes: Assessments for all patient encounters Findings Encounter Date Morbid obesity Medical Established Patient with Denny Lomeli [employer] 04/23/2021 Otitis externa Medical Established Patient with Denny Lomeli [employer] 04/23/2021 Z68.42 - Body mass index [BM I] 45.0-49.9, adult Medical Established Patient with Denny Lomeli [employer] 04/23/2021 Post-traumatic stress disorder BH Establ ished Patient with Kinga Short LISWS 04/01/2021 Morbid obesity Medical Established Patient with Denny Armani [employer] 04/01/2021 Z68.42 - Body mass index [BM I] 45.0-49.9, adult Medical Established Patient with Denny Armani [employer] 04/01/2021 Post-traumatic stress disorder BH Establ ished Patient with Kinga Short LISWS 03/17/2021 Assessment of visit for: lloyd strange for human immunodeficiency virus Medical New Patient with Denny Armani [employer] 03/17/2021 Diabetes Risk Test Score was one score 03/17/2021 Medical New Patient with Denny Armani [employer] 03/17/2021 Hypertension Medical New Patient with Denny Armani [employer] 03/17/2021 Morbid obesity Medical New Patient with Denny Armani [employer] 03/17/2021 Post-traumatic stress disorder Medical N ew Patient with Denny Armani [employer] 03/17/2021 Z68.42 - Body mass index [BM I] 45.0-49.9, adult Medical New Patient with Denny Armani [employer] 03/17/2021 [facility] Work Phone: Evaluation note* Diagnosis Anxiety state- Primary Anxiety state, unspecified documented in this encounter [facility] Phone: evaljydbxt note* Diagnosis Bipolar 1 disorder (HCC)- Primary Bipolar I disorder, most recent episode (or current) unspecified Homicidal ideation documented in this encounter [facility] Phone: evaluation note* Diagnosis Tachycardia Tachycardia, unspecified documented in this encounter [facility] Phone: evaluation note Includes: Assessments for all patient encounters Findings Encounter Date [D50.9 - Iron deficiency ane eduardo, unspecified] iron deficiency anemia Chart Update with Denny Lomeli [employer] 07/29/2024 Last Documented On 4 12:07PM ; [facility] Attention-deficit hyperactivity disorder Established Patient with Sarai Alberts HYDRATOR 07/18/2024 Last Documented On 4 4:15PM ; [facility] Bipolar I disorder, most rec ent episode, depressed - mild Established Patient with Sarai Alberts HYDRATOR 07/18/2024 Last Documented On 4 4:15PM ; [facility] Nicotine dependence Established Patient with Saraifiliberto Alberts HYDRATOR 07/18/2024 Last Documented On 4 4:15PM ; [facility] Post-traumatic stress disorder Establ ished Patient with Sarai Alberts HYDRATOR 07/18/2024 Last Documented On 4 4:15PM ; [facility] [Z68.43 - Body mass index [B CT] 50.0-59.9, adult] assessment of body mass index Medical Established Patient with Denny Lomeli [employer] 07/18/2024 Last Documented On 4 1:56PM ; [facility] Bipolar I disorder, most rec ent episode, depressed - mild Medical Established Patient with Dennyartem Landonen [employer] 07/18/2024 Last Documented On 4 1:56PM ; [facility] Caries Medical Established Patient with Denny Armani [employer] 07/18/2024 Last Documented On 4 1:56PM ; [facility] Encounter for Immunization Medical Estab lished Patient with Denny Armani [employer] 07/18/2024 Last Documented On 4 1:56PM ; [facility] Type 2 diabetes mellitus wit hout complication Medical Established Patient with Denny Armani [employer] 07/18/2024 Last Documented On 4 1:56PM ; [facility] Attention-deficit hyperactivity disorder Established Patient with Kinga Short LISWS 06/13/2024 Last Documented On 4 3:28PM ; [facility] Bipolar I disorder, most rec ent episode, depressed - mild Established Patient with Kinga Short LISWS 06/13/2024 Last Documented On 4 3:28PM ; [facility] Post-traumatic stress disorder Establ ished Patient with Kinga Short LISWS 06/13/2024 Last Documented On 4 3:28PM ; [facility] [E11.9 - Type 2 diabetes gloria litus without complications] type 2 diabetes mellitus Medical Established Patient with Denny Lomeli CNP 06/13/2024 Last Documented On 4 7:36PM ; [facility] [F41.1 - Generalized anxiety disorder] generalized anxiety disorder Medical Established Patient with Denny Lomeli [employer] 06/13/2024 Last Documented On 4 7:36PM ; [facility] [I10 - Essential (primary) hypertension] essential hypertension Medical Established Patient with Denny Lomeli [employer] 06/13/2024 Last Documented On 4 7:36PM ; [facility] [N94.6 - Dysmenorrhea, unspe cified] dysmenorrhea Medical Established Patient with Denny Lomeli CNP 06/13/2024 Last Documented On 4 7:36PM ; [facility] [Z68.43 - Body mass index [B CT] 50.0-59.9, adult] assessment of body mass index Medical Established Patient with Denny Lomeli CNP 06/13/2024 Last Documented On 4 7:36PM ; [facility] Encounter for Immunization Medical Estab lished Patient with Denny Lomeli [employer] 06/13/2024 Last Documented On 4 7:36PM ; [facility] Venipuncture was performed Medical Estab lished Patient with Denny Lomeli [employer] 06/13/2024 Last Documented On 4 7:36PM ; [facility] Attention-deficit hyperactivity disorder Established Patient with Kinga Short LISWS 04/10/2024 Last Documented On 4 10:10AM ; [facility] Bipolar I disorder, most rec ent episode, depressed - mild Established Patient with Kinga Short LISWS 04/10/2024 Last Documented On 4 10:10AM ; [facility] Post-traumatic stress disorder Establ ished Patient with Kinga Short LISWS 04/10/2024 Last Documented On 4 10:10AM ; [facility] [D64.9 - Anemia, unspecified] anemia Med ical Established Patient with Denny Lomeli [employer] 04/10/2024 Last Documented On 4 6:51PM ; [facility] [Z68.43 - Body mass index [B CT] 50.0-59.9, adult] assessment of body mass index Medical Established Patient with Denny Lomeli [employer] 04/10/2024 Last Documented On 4 6:51PM ; [facility] Bipolar affective disorder, current episode depressed, mild BH Established Patient with Kinga Short LISWS 01/17/2024 Last Documented On 4 5:16PM ; [facility] Post-traumatic stress disorder BH Establ ished Patient with Kinga Short LISWS 01/17/2024 Last Documented On 4 5:16PM ; [facility] Undifferentiated attention d eficit disorder Established Patient with Kinga Short LISWS 01/17/2024 Last Documented On 4 5:16PM ; [facility] Visit for: screening for disorder BH Est ablished Patient with Kinga Short LISWS 01/17/2024 Last Documented On 4 5:16PM ; [facility] [Z68.43 - Body mass index [B CT] 50.0-59.9, adult] assessment of body mass index Medical Established Patient with Denny Lomeli [employer] 01/17/2024 Last Documented On 4 7:50PM ; [facility] Attention-deficit hyperactivity disorder Medical Established Patient with Denny Lomeli [employer] 01/17/2024 Last Documented On 4 7:50PM ; [facility] Diabetes Risk Test Score was three score 01/17/2024 Medical Established Patient with Denny Lomeli [employer] 01/17/2024 Last Documented On 4 7:50PM ; [facility] Visit for: screening for STD Medical Est ablished Patient with Denny Lomeli [employer] 01/17/2024 Last Documented On 4 7:50PM ; [facility] [Z68.32 - Body mass index [B CT] 32.0-32.9, adult] assessment of body mass index Medical Established Patient with Denny Lomeli [employer] 05/10/2023 Last Documented On 3 6:01PM ; [facility] Borderline personality disorder Medical Established Patient with Denny Armani [employer] 05/10/2023 Last Documented On 3 6:01PM ; [facility] Screening for diabetes mellitus Medical Established Patient with Dennyartem Lomeli [employer] 05/10/2023 Last Documented On 3 6:01PM ; [facility] Assessment of body mass index Medical Es tablished Patient with Dennyartem Lomeli [employer] 08/12/2022 Last Documented On 2 2:45PM ; [facility] Bipolar affective disorder, current episode manic [facility] with Belkisdionna Velarde LPCC-S 06/16/2022 Last Documented On 2 3:22PM ; [facility] Bipolar affective disorder, current episode manic BH Established Patient with Belkis Velarde LPCC-S 06/15/2022 Last Documented On 2 2:28PM ; [facility] Bipolar affective disorder, current episode depressed, severe with psychosis [facility] with Belkis Velarde LPCC-S 06/15/2022 Last Documented On 2 3:29PM ; [facility] Assessment of body mass inde x [Body mass index [BMI] 50.0-59.9, adult] Open Access - Established with Leah Monique [employer] 06/15/2022 Last Documented On 2 9:36AM ; [facility] Bipolar I disorder, most rec ent episode, manic Open Access - Established with Elah Monique [employer] 06/15/2022 Last Documented On 2 9:36AM ; [facility] Post-traumatic stress disorder BH Establ ished Patient with Belkis Velarde LPCC-S 06/08/2022 Last Documented On 2 3:20PM ; [facility] No cough Medical Established Patient with Dennyartem Lomeli [employer] 06/08/2022 Last Documented On 2 4:04PM ; [facility] Z68.43 - Body mass index [BM I] 50.0-59.9, adult Medical Established Patient with Dennyartem Landonen [employer] 06/08/2022 Last Documented On 2 4:04PM ; [facility] Borderline personality disor kyree Pt reported hx of sx/dx BH Established Patient with Belkis Velarde LPCC-S 05/27/2022 Last Documented On 2 4:08PM ; [facility] Assessment of body mass inde x [Body mass index [BMI] 50.0-59.9, adult] Open Access - Established with Leah Porraser [employer] 05/27/2022 Last Documented On 2 7:41PM ; [facility] Diabetes Risk Test Score was three score 05/27/2022 Open Access - Established with Leah Monique [employer] 05/27/2022 Last Documented On 2 7:41PM ; [facility] Bipolar I disorder, most rec ent episode, manic Established Patient with Eufemia Mcneil LPCC-S 07/15/2021 Last Documented On 1 1:35AM ; [facility] Borderline personality disorder Estab lished Patient with Eufemia Mcneil LPCC-S 07/15/2021 Last Documented On 1 1:35AM ; [facility] Post-traumatic stress disorder Establ ished Patient with Eufemia Mcneil LPCC-S 07/15/2021 Last Documented On 1 1:35AM ; [facility] Assessment of visit for: lloyd strange for human immunodeficiency virus Medical Established Patient with Dennyartem Landonen [facility] 07/15/2021 Last Documented On 1 2:56PM ; [facility] Nicotine dependence Medical Established Patient with Denny Armani [employer] 07/15/2021 Last Documented On 1 2:56PM ; [facility] Tachycardia Medical Established Patient with Denny Armani [employer] 07/15/2021 Last Documented On 1 2:56PM ; [facility] Z68.43 - Body mass index [BM I] 50.0-59.9, adult Medical Established Patient with Denny Armani [employer] 07/15/2021 Last Documented On 1 2:56PM ; [facility] Bipolar I disorder, most rec ent episode, manic Established Patient with Kinga Short LISWS 06/17/2021 Last Documented On 1 10:17AM ; [facility] Borderline personality disor kyree per patient reported history Established Patient with Kinga Short LISWS 06/17/2021 Last Documented On 1 10:17AM ; [facility] Nicotine dependence BH Established Patient with Kinga Short LISWS 06/17/2021 Last Documented On 1 10:17AM ; [facility] Post-traumatic stress disorder Establ ished Patient with Kinga Short LISWS 06/17/2021 Last Documented On 1 10:17AM ; [facility] Body mass index Medical Established Patient with Denny Armani [employer] 06/17/2021 Last Documented On 1 5:23PM ; [facility] Morbid obesity Medical Established Patient with Denny Armani [employer] 06/17/2021 Last Documented On 1 5:23PM ; [facility] Nicotine dependence uncomplicated Medica l Established Patient with Denny Armani [employer] 06/17/2021 Last Documented On 1 5:23PM ; [facility] Z68.42 - Body mass index [BM I] 45.0-49.9, adult Medical Established Patient with Denny Armani [employer] 06/17/2021 Last Documented On 1 5:23PM ; [facility] 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 disorders 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 [employer] 05/15/2021 Last Documented On 1 7:49AM ; [facility] Mood disorders, NOS per blaze ent reported history Established Patient with Kinga Short LISWS 04/23/2021 Last Documented On 1 7:15PM ; [facility] Post-traumatic stress disorder Establ ished Patient with Kinga Short LISWS 04/23/2021 Last Documented On 1 7:15PM ; [facility] Morbid obesity Medical Established Patient with Denny Armani [employer] 04/23/2021 Last Documented On 1 12:31PM ; [facility] Otitis externa Medical Established Patient with Denny Armani [employer] 04/23/2021 Last Documented On 1 12:31PM ; [facility] Z68.42 - Body mass index [BM I] 45.0-49.9, adult Medical Established Patient with Denny Armani [employer] 04/23/2021 Last Documented On 1 12:31PM ; [facility] Post-traumatic stress disorder Establ ished Patient with Kinga Short LISWS 04/01/2021 Last Documented On 1 10:05PM ; [facility] Morbid obesity Medical Established Patient with Denny Armani [employer] 04/01/2021 Last Documented On 1 4:45PM ; [facility] Z68.42 - Body mass index [BM I] 45.0-49.9, adult Medical Established Patient with Denny Armani [employer] 04/01/2021 Last Documented On 1 4:45PM ; [facility] Post-traumatic stress [facility] Establ ished Patient with Kinga Short LISWS 03/17/2021 Last Documented On 1 11:59AM ; [facility] Assessment of visit for: lloyd strange for human immunodeficiency virus Medical New Patient with Denny Armani [employer] 03/17/2021 Last Documented On 1 4:06PM ; [facility] Diabetes Risk Test Score was one score 03/17/2021 Medical New Patient with Denny Armani [employer] 03/17/2021 Last Documented On 1 4:06PM ; [facility] Hypertension Medical New Patient with Denny C chas [employer] 03/17/2021 Last Documented On 1 4:06PM ; [facility] Morbid obesity Medical New Patient with Denny C chas [employer] 03/17/2021 Last Documented On 1 4:06PM ; [facility] Post-traumatic stress disorder Medical New Patie nt with Denny Armani [employer] 03/17/2021 Last Documented On 1 4:06PM ; [facility] Z68.42 - Body mass index [BM I] 45.0-49.9, adult Medical New Patient with Denny Armani [employer] 03/17/2021 Last Documented On 1 4:06PM ; [facility] Work Phone: Evaluation noteNo assessment information available [facility] Work Phone: History of Present illness Narrative History of Present Illness not supported for this document type No History of Present Illness [facility] Work Phone: Hospital Discharge instructions* Instructions* [...] sent through Care Everywhere. * Anxiety Disorder (Polish) documented in this [facility] Work Phone: Instructions Instructions not supported for this document type No Instructions [facility] Work Phone: Instructions Includes: Instructions for all patient encounters Education and Decision Aids were provided during visit for: Counseling/education [Use fo r free text] Last Documented On 4 7:40PM ; [facility] Discussed nutritional needs teach healthy choices including fruits and vegetables Last Documented On 4 7:14PM ; [facility] Patient education about a pr oper diet Last Documented On 4 7:14PM ; [facility] Discussed concerns about exe rcise : promote physical activity Last Documented On 4 7:14PM ; [facility] Not requesting contraception Last Documented On 4 7:14PM ; [facility] Discussed nutritional needs teach healthy choices including fruits and vegetables Last Documented On 3 5:15PM ; [facility] Patient education about a pr oper diet Last Documented On 3 5:15PM ; [facility] Discussed concerns about exe rcise : promote physical activity Last Documented On 3 5:15PM ; [facility] Discussed nutritional needs teach healthy choices including fruits and vegetables Last Documented On 2 1:42PM ; [facility] Patient education about a pr oper diet Last Documented On 2 1:42PM ; [facility] Discussed concerns about exe rcise : promote physical activity Last Documented On 2 1:42PM ; [facility] offered active listening and supportive feedback; normalized emotions and feelings, also provided pt time to process any current stressors. ~Promoted and encouraged follow-through with scheduling psychiatric services Last Documented On 2 3:21PM ; [facility] provided supportive, empa thic listening and reflective feedback. ~Explored, encouraged, and supported the pt to discuss current sx/mood, assess risk for harm/need, coping mechanisms, support network and safety planning. ~Supported pt's plan to f/up with Dr. Carney, as planned at [place], [place]. ~Encouraged pt to use safety plan, if needed to ensure she remains safe Last Documented On 2 2:27PM ; [facility] Discussed nutritional needs teach healthy choices including fruits and vegetables Last Documented On 2 3:20PM ; [facility] Patient education about a pr oper diet Last Documented On 2 3:20PM ; [facility] Discussed concerns about exe rcise : promote physical activity ~ ~Will restart trazodone and prazosin ~ ~Patient is planning to have brother stay with her for a few days for emotional support ~ ~Follow up with PCP at next scheduled visit ~ ~Call psychiatrist office to schedule appt ~ ~Call counselor Last Documented On 2 9:35AM ; [facility] Provided supportive listenin g and empathic feedback; encouraged, explored, and supported the pt as she processed current symptoms, Issues, and concerns. ~Discussed past tx and explored current needs/options. Acknowledged and validated pt's thoughts and emotions. ~Explored coping mechanisms and support network; utilized opportunity for safety planning; promoted seeking positive support and seeking help, as needed Last Documented On 2 3:28PM ; [facility] provided active listenin g, support and helped pt process though current symptoms and stressor(s). Discussed and explored past effectiveness of medication; identified objectives and future goals; promoted use of healthy coping mechanisms, and self-care practices Last Documented On 2 3:19PM ; [facility] Reviewed side effects and Ri sks/Benefits analysis Last Documented On 2 3:19PM ; [facility] Discussed nutritional needs teach healthy choices including fruits and vegetables Last Documented On 2 3:15PM ; [facility] Patient education about a pr oper diet Last Documented On 2 3:15PM ; [facility] Discussed concerns about exe rcise : promote physical activity Last Documented On 2 3:15PM ; [facility] introduced pt to [facility] in tegrated model of care ~[facility] offered active listening and supportive feedback; normalized emotions and feelings, also provided pt time to process any current stressors ~[facility] discussed potential benefits of counseling and supported re-engaging, as needed. ~[facility] encouraged pt to continue to make time to implement self-care regimen and use coping methods, as needed Last Documented On 2 4:07PM ; [facility] Discussed nutritional needs teach healthy choices including fruits and vegetables Last Documented On 2 3:15PM ; [facility] Patient education about a pr oper diet Last Documented On 2 3:15PM ; [facility] Inquiry and counseling about medication administration and compliance Last Documented On 2 7:37PM ; [facility] Discussed concerns about exe rcise : promote physical activity Last Documented On 2 3:15PM ; [facility] Patient goals discussed Last Documented On 2 7:37PM ; [facility] Ansewred pt's questions re B orderlline Personality D/O and Bipolar D/O raised by psychiatrist at [facility]. ~Validated and normalized patient?s feelings while assisting to process recent events Last Documented On 1 1:33AM ; [facility] Discussed nutritional needs teach healthy choices including fruits and vegetables Last Documented On 1 2:04PM ; [facility] Patient education about a pr oper diet Last Documented On 1 2:04PM ; [facility] Discussed concerns about exe rcise : promote physical activity Last Documented On 1 2:04PM ; [facility] provided active listenin g, support and helped patient process through current symptoms and stressors with ongoing mental health concerns and medication changes. [facility] discussed coping skills and supports that patient is implementing. discussed implementing coping skills as discussed with counseling and attending weekly appointments as scheduled with counselor. Patient was encouraged to continue writing down concerns with medications and discuss with providers. [facility] reminded patient of crisis resources should they be needed. Patient reports having crisis resources and could return to ER Last Documented On 1 10:17AM ; [facility] Patient education about a pr oper diet Last Documented On 1 5:17PM ; [facility] Patient education about meal planning Last Documented On 1 5:17PM ; [facility] Education about changing eat ing habits Last Documented On 1 5:17PM ; [facility] Patient education about high fiber diet Last Documented On 1 5:17PM ; [facility] Patient education about low fat diet Last Documented On 1 5:17PM ; [facility] Patient education about low cholesterol diet Last Documented On 1 5:17PM ; [facility] Patient education about low carbohydrate diet Last Documented On 1 5:17PM ; [facility] Patient education about high protein diet Last Documented On 1 5:17PM ; [facility] offered active and suppo rtive listening, normalized emotions and feelings, and processed current stressors. [facility] discussed resources for finding a counselor and provided list of local resources. [facility] discussed patients coping skills and supports and encouraged patient to continue to implement. [facility] reminded patient of crisis resources should they be needed Last Documented On 1 7:15PM ; [facility] Discussed nutritional needs teach healthy choices including fruits and vegetables Last Documented On 1 11:38AM ; [facility] Patient education about a pr oper diet Last Documented On 1 11:38AM ; [facility] Patient education about a pr oper diet Last Documented On 1 12:19PM ; [facility] Patient education about meal planning Last Documented On 1 12:19PM ; [facility] Education about changing eat ing habits Last Documented On 1 12:19PM ; [facility] Patient education about high fiber diet Last Documented On 1 12:19PM ; [facility] Patient education about low fat diet Last Documented On 1 12:19PM ; [facility] Patient education about low cholesterol diet Last Documented On 1 12:19PM ; [facility] Patient education about low carbohydrate diet Last Documented On 1 12:19PM ; [facility] Patient education about high protein diet Last Documented On 1 12:19PM ; [facility] Discussed concerns about exe rcise : promote physical activity Last Documented On 1 11:38AM ; [facility], support and helped patient process through current symptoms and stressors related to family conflict. ~P discussed coping skills and supports with patient that can be implemented and reminded patient of ways to access additional resources. ~P discussed crisis resources and plan. Patient has crisis resources still available should they be needed Last Documented On 1 7:04PM ; [facility] Discussed nutritional needs teach healthy choices including fruits and vegetables Last Documented On 1 3:57PM ; [facility] Patient education about a pr oper diet Last Documented On 1 3:57PM ; [facility] Discussed concerns about exe rcise : promote physical activity Last Documented On 1 3:57PM ; [facility] integrated model of care. [facility] [...] [facility] provided text hotline number for crisis. [facility] reviewed crisis plan with patient and patient is able to contact positive supports and family when feeling down Last Documented On 1 11:46AM ; [facility] Discussed nutritional needs teach healthy choices including fruits and vegetables Last Documented On 1 2:11PM ; [facility] Patient education about a pr oper diet Last Documented On 1 2:11PM ; [facility] Discussed concerns about exe rcise : promote physical activity Last Documented On 1 2:11PM ; [facility] Work Phone: Instructions Includes: Instructions for all patient encounters Education and Decision Aids were provided during visit for: [facility] offered active and suppo rtive listening and processed current stressors related to getting medications. ~[facility] discussed coping skills and supports to implement in daily routine. ~[facility] discussed progress patient has felt they have made recently and encouraged continued follow-up with providers to address health Last Documented On 4 5:16PM ; [facility] Discussed nutritional needs teach healthy choices including fruits and vegetables Last Documented On 4 7:14PM ; [facility] Patient education about a pr oper diet Last Documented On 4 7:14PM ; [facility] Discussed concerns about exe rcise : promote physical activity Last Documented On 4 7:14PM ; [facility] Not requesting contraception Last Documented On 4 7:14PM ; [facility] Discussed nutritional needs teach healthy choices including fruits and vegetables Last Documented On 3 5:15PM ; [facility] Patient education about a pr oper diet Last Documented On 3 5:15PM ; [facility] Discussed concerns about exe rcise : promote physical activity Last Documented On 3 5:15PM ; [facility] Discussed nutritional needs teach healthy choices including fruits and vegetables Last Documented On 2 1:42PM ; [facility] Patient education about a pr oper diet Last Documented On 2 1:42PM ; [facility] Discussed concerns about exe rcise : promote physical activity Last Documented On 2 1:42PM ; [facility] offered active listening and supportive feedback; normalized emotions and feelings, also provided pt time to process any current stressors. ~Promoted and encouraged follow-through with scheduling psychiatric services Last Documented On 2 3:21PM ; [facility] provided supportive, empa thic listening and reflective feedback. ~Explored, encouraged, and supported the pt to discuss current sx/mood, assess risk for harm/need, coping mechanisms, support network and safety planning. ~Supported pt's plan to f/up with Dr. Carney, as planned at [place], [place]. ~Encouraged pt to use safety plan, if needed to ensure she remains safe Last Documented On 2 2:27PM ; [facility] Discussed nutritional needs teach healthy choices including fruits and vegetables Last Documented On 2 3:20PM ; [facility] Patient education about a pr oper diet Last Documented On 2 3:20PM ; [facility] Discussed concerns about exe rcise : promote physical activity ~ ~Will restart trazodone and prazosin ~ ~Patient is planning to have brother stay with her for a few days for emotional support ~ ~Follow up with PCP at next scheduled visit ~ ~Call psychiatrist office to schedule appt ~ ~Call counselor Last Documented On 2 9:35AM ; [facility] Provided supportive listenin g and empathic feedback; encouraged, explored, and supported the pt as she processed current symptoms, Issues, and concerns. ~Discussed past tx and explored current needs/options. Acknowledged and validated pt's thoughts and emotions. ~Explored coping mechanisms and support network; utilized opportunity for safety planning; promoted seeking positive support and seeking help, as needed Last Documented On 2 3:28PM ; [facility] provided active listenin g, support and helped pt process though current symptoms and stressor(s). Discussed and explored past effectiveness of medication; identified objectives and future goals; promoted use of healthy coping mechanisms, and self-care practices Last Documented On 2 3:19PM ; [facility] Reviewed side effects and Ri sks/Benefits analysis Last Documented On 2 3:19PM ; [facility] Discussed nutritional needs teach healthy choices including fruits and vegetables Last Documented On 2 3:15PM ; [facility] Patient education about a pr oper diet Last Documented On 2 3:15PM ; [facility] Discussed concerns about exe rcise : promote physical activity Last Documented On 2 3:15PM ; [facility] introduced pt to [facility] in tegrated model of care ~[facility] offered active listening and supportive feedback; normalized emotions and feelings, also provided pt time to process any current stressors ~[facility] discussed potential benefits of counseling and supported re-engaging, as needed. ~[facility] encouraged pt to continue to make time to implement self-care regimen and use coping methods, as needed Last Documented On 2 4:07PM ; [facility] Discussed nutritional needs teach healthy choices including fruits and vegetables Last Documented On 2 3:15PM ; [facility] Patient education about a pr oper diet Last Documented On 2 3:15PM ; [facility] Inquiry and counseling about medication administration and compliance Last Documented On 2 7:37PM ; [facility] Discussed concerns about exe rcise : promote physical activity Last Documented On 2 3:15PM ; [facility] Patient goals discussed Last Documented On 2 7:37PM ; [facility] Ansewred pt's questions re B orderlline Personality D/O and Bipolar D/O raised by psychiatrist at [facility]. ~Validated and normalized patient?s feelings while assisting to process recent events Last Documented On 1 1:33AM ; [facility] Discussed nutritional needs teach healthy choices including fruits and vegetables Last Documented On 1 2:04PM ; [facility] Patient education about a pr oper diet Last Documented On 1 2:04PM ; [facility] Discussed concerns about exe rcise : promote physical activity Last Documented On 1 2:04PM ; [facility] provided active listenin g, support and helped patient process through current symptoms and stressors with ongoing mental health concerns and medication changes. [facility] discussed coping skills and supports that patient is implementing. discussed implementing coping skills as discussed with counseling and attending weekly appointments as scheduled with counselor. Patient was encouraged to continue writing down concerns with medications and discuss with providers. [facility] reminded patient of crisis resources should they be needed. Patient reports having crisis resources and could return to ER Last Documented On 1 10:17AM ; [facility] Patient education about a pr oper diet Last Documented On 5:17PM ; [facility] Patient education about meal planning Last Documented On 5:17PM ; [facility] Education about changing eat ing habits Last Documented On 5:17PM ; [facility] Patient education about high fiber diet Last Documented On 5:17PM ; [facility] Patient education about low fat diet Last Documented On 5:17PM ; [facility] Patient education about low cholesterol diet Last Documented On 5:17PM ; [facility] Patient education about low carbohydrate diet Last Documented On 5:17PM ; [facility] Patient education about high protein diet Last Documented On 5:17PM ; [facility] offered active and suppo rtive listening, normalized emotions and feelings, and processed current stressors. [facility] discussed resources for finding a counselor and provided list of local resources. ~[facility] discussed patients coping skills and supports and encouraged patient to continue to implement. [facility] reminded patient of crisis resources should they be needed Last Documented On 1 7:15PM ; [facility] Discussed nutritional needs teach healthy choices including fruits and vegetables Last Documented On 11:38AM ; [facility] Patient education about a pr oper diet Last Documented On 11:38AM ; [facility] Patient education about a pr oper diet Last Documented On 12:19PM ; [facility] Patient education about meal planning Last Documented On 12:19PM ; [facility] Education about changing eat ing habits Last Documented On 1 12:19PM ; [facility] Patient education about high fiber diet Last Documented On 1 12:19PM ; [facility] Patient education about low fat diet Last Documented On 1 12:19PM ; [facility] Patient education about low cholesterol diet Last Documented On 1 12:19PM ; [facility] Patient education about low carbohydrate diet Last Documented On 1 12:19PM ; [facility] Patient education about high protein diet Last Documented On 1 12:19PM ; [facility] Discussed concerns about exe rcise : promote physical activity Last Documented On 1 11:38AM ; [facility] provided active listenin g, support and helped patient process through current symptoms and stressors related to family conflict. ~P discussed coping skills and supports with patient that can be implemented and reminded patient of ways to access additional resources. ~[facility] discussed crisis resources and plan. Patient has crisis resources still available should they be needed Last Documented On 1 7:04PM ; [facility] Discussed nutritional needs teach healthy choices including fruits and vegetables Last Documented On 1 3:57PM ; [facility] Patient education about a pr oper diet Last Documented On 1 3:57PM ; [facility] Discussed concerns about exe rcise : promote physical activity Last Documented On 1 3:57PM ; [facility] integrated model of care. P and PCP reassured patient of not sharing information with anyone unless she has signed a release for us to do so. ~P provided active listening, support and helped patient process through current symptoms and stressors. ~P discussed establishing counseling and psychiatry. P discussed EMDR therapy and ways to find provider who does this type of therapy. ~[facility] discussed crisis resources should mood worsen, P provided text hotline number for crisis. P reviewed crisis plan with patient and patient is able to contact positive supports and family when feeling down Last Documented On 1 11:46AM ; [facility] Discussed nutritional needs teach healthy choices including fruits and vegetables Last Documented On 1 2:11PM ; [facility] Patient education about a pr oper diet Last Documented On 1 2:11PM ; [facility] Discussed concerns about exe rcise : promote physical activity Last Documented On 1 2:11PM ; [facility] Work Phone: Instructions Includes: Instructions [...] health Last Documented On 4 5:16PM ; [facility] Discussed nutritional needs teach healthy choices including fruits and vegetables Last Documented On 4 7:14PM ; [facility] Patient education about a pr oper diet Last Documented On 4 7:14PM ; [facility] Discussed concerns about exe rcise : promote physical activity Last Documented On 4 7:14PM ; [facility] Not requesting contraception Last Documented On 4 7:14PM ; [facility] Discussed nutritional needs teach healthy choices including fruits and vegetables Last Documented On 3 5:15PM ; [facility] Patient education about a pr oper diet Last Documented On 3 5:15PM ; [facility] Discussed concerns about exe rcise : promote physical activity Last Documented On 3 5:15PM ; [facility] Discussed nutritional needs teach healthy choices including fruits and vegetables Last Documented On 2 1:42PM ; [facility] Patient education about a pr oper diet Last Documented On 2 1:42PM ; [facility] Discussed concerns about exe rcise : promote physical activity Last Documented On 2 1:42PM ; [facility] offered active listening and supportive feedback; normalized emotions and feelings, also provided pt time to process any current stressors. ~Promoted and encouraged follow-through with scheduling psychiatric services Last Documented On 2 3:21PM ; [facility] provided supportive, empa thic listening and reflective feedback. ~Explored, encouraged, and supported the pt to discuss current sx/mood, assess risk for harm/need, coping mechanisms, support network and safety planning. ~Supported pt's plan to f/up with Dr. Carney, as planned at [place], [place]. ~Encouraged pt to use safety plan, if needed to ensure she remains safe Last Documented On 2 2:27PM ; [facility] Discussed nutritional needs teach healthy choices including fruits and vegetables Last Documented On 2 3:20PM ; [facility] Patient education about a pr oper diet Last Documented On 2 3:20PM ; [facility] Discussed concerns about exe rcise : promote physical activity ~ ~Will restart trazodone and prazosin ~ ~Patient is planning to have brother stay with her for a few days for emotional support ~ ~Follow up with PCP at next scheduled visit ~ ~Call psychiatrist office to schedule appt ~ ~Call counselor Last Documented On 2 9:35AM ; [facility] Provided supportive listenin g and empathic feedback; encouraged, explored, and supported the pt as she processed current symptoms, Issues, and concerns. ~Discussed past tx and explored current needs/options. Acknowledged and validated pt's thoughts and emotions. ~Explored coping mechanisms and support network; utilized opportunity for safety planning; promoted seeking positive support and seeking help, as needed Last Documented On 2 3:28PM ; [facility] provided active listenin g, support and helped pt process though current symptoms and stressor(s). Discussed and explored past effectiveness of medication; identified objectives and future goals; promoted use of healthy coping mechanisms, and self-care practices Last Documented On 2 3:19PM ; [facility] Reviewed side effects and Ri sks/Benefits analysis Last Documented On 2 3:19PM ; [facility] Discussed nutritional needs teach healthy choices including fruits and vegetables Last Documented On 2 3:15PM ; [facility] Patient education about a pr oper diet Last Documented On 2 3:15PM ; [facility] Discussed concerns about exe rcise : promote physical activity Last Documented On 2 3:15PM ; [facility] in tegrated model [...] needed Last Documented On 2 4:07PM ; [facility] Discussed nutritional needs teach healthy choices including fruits and vegetables Last Documented On 2 3:15PM ; [facility] Patient education about a pr oper diet Last Documented On 2 3:15PM ; [facility] Inquiry and counseling about medication administration and compliance Last Documented On 2 7:37PM ; [facility] Discussed concerns about exe rcise : promote physical activity Last Documented On 2 3:15PM ; [facility] Patient goals discussed Last Documented On 2 7:37PM ; [facility] Ansewred pt's questions re B orderlline Personality D/O and Bipolar D/O raised by psychiatrist at [facility]. ~Validated and normalized patient?s feelings while assisting to process recent events Last Documented On 1 1:33AM ; [facility] Discussed nutritional needs teach healthy choices including fruits and vegetables Last Documented On 1 2:04PM ; [facility] Patient education about a pr oper diet Last Documented On 1 2:04PM ; [facility] Discussed concerns about exe rcise : promote physical activity Last Documented On 1 2:04PM ; [facility] provided active listenin [facility], support and helped [...] ER Last Documented On 1 10:17AM ; [facility] Patient education about a pr oper diet Last Documented On 5:17PM ; [facility] Patient education about meal planning Last Documented On 5:17PM ; [facility] Education about changing eat ing habits Last Documented On 5:17PM ; [facility] Patient education about high fiber diet Last Documented On 1 5:17PM ; [facility] Patient education about low fat diet Last Documented On 5:17PM ; [facility] Patient education about low cholesterol diet Last Documented On 5:17PM ; [facility] Patient education about low carbohydrate diet Last Documented On 5:17PM ; [facility] Patient education about high protein diet Last Documented On 5:17PM ; [facility] offered active and suppo rtive listening, normalized emotions and feelings, and processed current stressors. ~[facility] discussed resources for finding a counselor and provided list of local resources. ~[facility] discussed patients coping skills and supports and encouraged patient to continue to implement. ~[facility] reminded patient of crisis resources should they be needed Last Documented On 1 7:15PM ; [facility] Discussed nutritional needs teach healthy choices including fruits and vegetables Last Documented On 11:38AM ; [facility] Patient education about a pr oper diet Last Documented On 1 11:38AM ; [facility] Patient education about a pr oper diet Last Documented On 1 12:19PM ; [facility] Patient education about meal planning Last Documented On 12:19PM ; [facility] Education about changing eat ing habits Last Documented On 12:19PM ; [facility] Patient education about high fiber diet Last Documented On 12:19PM ; [facility] Patient education about low fat diet Last Documented On 12:19PM ; [facility] Patient education about low cholesterol diet Last Documented On 1 12:19PM ; [facility] Patient education about low carbohydrate diet Last Documented On 1 12:19PM ; [facility] Patient education about high protein diet Last Documented On 1 12:19PM ; [facility] Discussed concerns about exe rcise : promote physical activity Last Documented On 1 11:38AM ; [facility] [facility] provided active listenin g, support and helped patient process through current symptoms and stressors related to family conflict. ~[facility] discussed coping skills and supports with patient that can be implemented and reminded patient of ways to access additional resources. ~[facility] discussed crisis resources and plan. Patient has crisis resources still available should they be needed Last Documented On 1 7:04PM ; [facility] Discussed nutritional needs teach healthy choices including fruits and vegetables Last Documented On 1 3:57PM ; [facility] Patient education about a pr oper diet Last Documented On 1 3:57PM ; [facility] Discussed concerns about exe rcise : promote physical activity Last Documented On 1 3:57PM ; [facility] integrated model of care. P and PCP reassured patient of not sharing information with anyone unless she has signed a release for us to do so. ~[facility] provided active listening, support and helped patient process through current symptoms and stressors. ~[facility] discussed establishing counseling and psychiatry. [facility] discussed EMDR therapy and ways to find provider who does this type of therapy. ~[facility] discussed crisis resources should mood worsen, [facility] provided text hotline number for crisis. [facility] reviewed crisis plan with patient and patient is able to contact positive supports and family when feeling down Last Documented On 1 11:46AM ; [facility] Discussed nutritional needs teach healthy choices including fruits and vegetables Last Documented On 1 2:11PM ; [facility] Patient education about a pr oper diet Last Documented On 1 2:11PM ; [facility] Discussed concerns about exe rcise : promote physical activity Last Documented On 1 2:11PM ; [facility] Work Phone: Instructions Includes: Instructions for all patient encounters Education and Decision Aids were provided during visit for: [facility] offered active and suppo rtive listening and processed current stressors. ~[facility] discussed coping skills and supports that can be implemented to manage increased anxiety and stressors. P discussed potential of resuming counseling, even if for monthly visits to process ongoing stressors. ~[facility] encouraged patient to follow- up on referrals as discussed with PCP Last Documented On 4 10:08AM ; [facility] Discussed nutritional needs teach healthy choices including fruits and vegetables Last Documented On 4 4:46PM ; [facility] Patient education about a pr oper diet Last Documented On 4 4:46PM ; [facility] Discussed concerns about exe rcise : promote physical activity Last Documented On 4 4:46PM ; [facility] Not requesting contraception Last Documented On 4 4:46PM ; [facility] offered active and suppo rtive listening and processed current stressors related to getting medications. ~[facility] discussed coping skills and supports to implement in daily routine. ~[facility] discussed progress patient has felt they have made recently and encouraged continued follow-up with providers to address health Last Documented On 4 5:16PM ; [facility] Discussed nutritional needs teach healthy choices including fruits and vegetables Last Documented On 4 7:14PM ; [facility] Patient education about a pr oper diet Last Documented On 4 7:14PM ; [facility] Discussed concerns about exe rcise : promote physical activity Last Documented On 4 7:14PM ; [facility] Not requesting contraception Last Documented On 4 7:14PM ; [facility] Discussed nutritional needs teach healthy choices including fruits and vegetables Last Documented On 3 5:15PM ; [facility] Patient education about a pr oper diet Last Documented On 3 5:15PM ; [facility] Discussed concerns about exe rcise : promote physical activity Last Documented On 3 5:15PM ; [facility] Discussed nutritional needs teach healthy choices including fruits and vegetables Last Documented On 2 1:42PM ; [facility] Patient education about a pr oper diet Last Documented On 2 1:42PM ; [facility] Discussed concerns about exe rcise : promote physical activity Last Documented On 2 1:42PM ; [facility] offered active listening and supportive feedback; normalized emotions and feelings, also provided pt time to process any current stressors. ~Promoted and encouraged follow-through with scheduling psychiatric services Last Documented On 2 3:21PM ; [facility] provided supportive, empa thic listening and reflective feedback. ~Explored, encouraged, and supported the pt to discuss current sx/mood, assess risk for harm/need, coping mechanisms, support network and safety planning. ~Supported pt's plan to f/up with Dr. Carney, as planned at [place], [place]. ~Encouraged pt to use safety plan, if needed to ensure she remains safe Last Documented On 2 2:27PM ; [facility] Discussed nutritional needs teach healthy choices including fruits and vegetables Last Documented On 2 3:20PM ; [facility] Patient education about a pr oper diet Last Documented On 2 3:20PM ; [facility] Discussed concerns about exe rcise : promote physical activity ~ ~Will restart trazodone and prazosin ~ ~Patient is planning to have brother stay with her for a few days for emotional support ~ ~Follow up with PCP at next scheduled visit ~ ~Call psychiatrist office to schedule appt ~ ~Call counselor Last Documented On 2 9:35AM ; [facility] Provided supportive listenin g and empathic feedback; encouraged, explored, and supported the pt as she processed current symptoms, Issues, and concerns. ~Discussed past tx and explored current needs/options. Acknowledged and validated pt's thoughts and emotions. ~Explored coping mechanisms and support network; utilized opportunity for safety planning; promoted seeking positive support and seeking help, as needed Last Documented On 2 3:28PM ; [facility] provided active listenin g, support and helped pt process though current symptoms and stressor(s). Discussed and explored past effectiveness of medication; identified objectives and future goals; promoted use of healthy coping mechanisms, and self-care practices Last Documented On 2 3:19PM ; [facility] Reviewed side effects and Ri sks/Benefits analysis Last Documented On 2 3:19PM ; [facility] Discussed nutritional needs teach healthy choices including fruits and vegetables Last Documented On 2 3:15PM ; [facility] Patient education about a pr oper diet Last Documented On 2 3:15PM ; [facility] Discussed concerns about exe rcise : promote physical activity Last Documented On 2 3:15PM ; [facility] introduced pt to [facility] in tegrated model of care ~[facility] offered active listening and supportive feedback; normalized emotions and feelings, also provided pt time to process any current stressors ~[facility] discussed potential benefits of counseling and supported re-engaging, as needed. ~[facility] encouraged pt to continue to make time to implement self-care regimen and use coping methods, as needed Last Documented On 2 4:07PM ; [facility] Discussed nutritional needs teach healthy choices including fruits and vegetables Last Documented On 2 3:15PM ; [facility] Patient education about a pr oper diet Last Documented On 2 3:15PM ; [facility] Inquiry and counseling about medication administration and compliance Last Documented On 2 7:37PM ; [facility] Discussed concerns about exe rcise : promote physical activity Last Documented On 2 3:15PM ; [facility] Patient goals discussed Last Documented On 2 7:37PM ; [facility] Ansewred pt's questions re B orderlline Personality D/O and Bipolar D/O raised by psychiatrist at [facility]. ~Validated and normalized patient?s feelings while assisting to process recent events Last Documented On 1 1:33AM ; [facility] Discussed nutritional needs teach healthy choices including fruits and vegetables Last Documented On 1 2:04PM ; [facility] Patient education about a pr oper diet Last Documented On 1 2:04PM ; [facility] Discussed concerns about exe rcise : promote physical activity Last Documented On 1 2:04PM ; [facility] provided active listenin g, support and helped patient process through current symptoms and stressors with ongoing mental health concerns and medication changes. [facility] discussed coping skills and supports that patient is implementing. discussed implementing coping skills as discussed with counseling and attending weekly appointments as scheduled with counselor. Patient was encouraged to continue writing down concerns with medications and discuss with providers. [facility] reminded patient of crisis resources should they be needed. Patient reports having crisis resources and could return to ER Last Documented On 1 10:17AM ; [facility] Patient education about a pr oper diet Last Documented On 1 5:17PM ; [facility] Patient education about meal planning Last Documented On 5:17PM ; [facility] Education about changing eat ing habits Last Documented On 1 5:17PM ; [facility] Patient education about high fiber diet Last Documented On 1 5:17PM ; [facility] Patient education about low fat diet Last Documented On 1 5:17PM ; [facility] Patient education about low cholesterol diet Last Documented On 1 5:17PM ; [facility] Patient education about low carbohydrate diet Last Documented On 1 5:17PM ; [facility] Patient education about high protein diet Last Documented On 1 5:17PM ; [facility] offered active and suppo rtive listening, normalized emotions and feelings, and processed current stressors. [facility] discussed resources for finding a counselor and provided list of local resources. [facility] discussed patients coping skills and supports and encouraged patient to continue to implement. [facility] reminded patient of crisis resources should they be needed Last Documented On 1 7:15PM ; [facility] Discussed nutritional needs teach healthy choices including fruits and vegetables Last Documented On 1 11:38AM ; [facility] Patient education about a pr oper diet Last Documented On 1 11:38AM ; [facility] Patient education about a pr oper diet Last Documented On 1 12:19PM ; [facility] Patient education about meal planning Last Documented On 1 12:19PM ; [facility] Education about changing eat ing habits Last Documented On 1 12:19PM ; [facility] Patient education about high fiber diet Last Documented On 1 12:19PM ; [facility] Patient education about low fat diet Last Documented On 1 12:19PM ; [facility] Patient education about low cholesterol diet Last Documented On 1 12:19PM ; [facility] Patient education about low carbohydrate diet Last Documented On 1 12:19PM ; [facility] Patient education about high protein diet Last Documented On 1 12:19PM ; [facility] Discussed concerns about exe rcise : promote physical activity Last Documented On 1 11:38AM ; [facility] active [facility], support and helped patient process through current symptoms and stressors related to family conflict. ~P discussed coping skills and supports with patient that can be implemented and reminded patient of ways to access additional resources. ~P discussed crisis resources and plan. Patient has crisis resources still available should they be needed Last Documented On 1 7:04PM ; [facility] Discussed nutritional needs teach healthy choices including fruits and vegetables Last Documented On 1 3:57PM ; [facility] Patient education about a pr oper diet Last Documented On 1 3:57PM ; [facility] Discussed concerns about exe rcise : promote physical activity Last Documented On 1 3:57PM ; [facility] to [facility] integrated model of care. [facility] [...] [facility] provided text hotline number for crisis. [facility] reviewed crisis plan with patient and patient is able to contact positive supports and family when feeling down Last Documented On 1 11:46AM ; [facility] Discussed nutritional needs teach healthy choices including fruits and vegetables Last Documented On 1 2:11PM ; [facility] Patient education about a pr oper diet Last Documented On 1 2:11PM ; [facility] Discussed concerns about exe rcise : promote physical activity Last Documented On 1 2:11PM ; [facility] Work Phone: Instructions Includes: Instructions for all patient encounters Education and Decision Aids were provided during visit for: Counseling/education [Use fo r free text] Last Documented On 4 6:27PM ; [facility] Discussed nutritional needs teach healthy choices including fruits and vegetables Last Documented On 4 4:51PM ; [facility] Patient education about a pr oper diet Last Documented On 4 4:51PM ; [facility] Discussed concerns about exe rcise : promote physical activity Last Documented On 4 4:51PM ; [facility] Referred Patient to a [facility] Self-Management Program Last Documented On 4 5:22PM ; [facility] offered active and suppo rtive listening and processed current stressors. ~[facility] discussed coping skills and supports that can be implemented to manage increased anxiety and stressors. [facility] discussed potential of resuming counseling, even if for monthly visits to process ongoing stressors. ~[facility] encouraged patient to follow- up on referrals as discussed with PCP Last Documented On 4 10:08AM ; [facility] Discussed nutritional needs teach healthy choices including fruits and vegetables Last Documented On 4 4:46PM ; [facility] Patient education about a pr oper diet Last Documented On 4 4:46PM ; [facility] Discussed concerns about exe rcise : promote physical activity Last Documented On 4 4:46PM ; [facility] Not requesting contraception Last Documented On 4 4:46PM ; [facility] offered active and suppo rtive listening and processed current stressors related to getting medications. ~P discussed coping skills and supports to implement in daily routine. ~P discussed progress patient has felt they have made recently and encouraged continued follow-up with providers to address health Last Documented On 4 5:16PM ; [facility] Discussed nutritional needs teach healthy choices including fruits and vegetables Last Documented On 4 7:14PM ; [facility] Patient education about a pr oper diet Last Documented On 4 7:14PM ; [facility] Discussed concerns about exe rcise : promote physical activity Last Documented On 4 7:14PM ; [facility] Not requesting contraception Last Documented On 4 7:14PM ; [facility] Discussed nutritional needs teach healthy choices including fruits and vegetables Last Documented On 3 5:15PM ; [facility] Patient education about a pr oper diet Last Documented On 3 5:15PM ; [facility] Discussed concerns about exe rcise : promote physical activity Last Documented On 3 5:15PM ; [facility] Discussed nutritional needs teach healthy choices including fruits and vegetables Last Documented On 2 1:42PM ; [facility] Patient education about a pr oper diet Last Documented On 2 1:42PM ; [facility] Discussed concerns about exe rcise : promote physical activity Last Documented On 2 1:42PM ; [facility] offered active listening and supportive feedback; normalized emotions and feelings, also provided pt time to process any current stressors. ~Promoted and encouraged follow-through with scheduling psychiatric services Last Documented On 2 3:21PM ; [facility] provided supportive, empa thic listening and reflective feedback. ~Explored, encouraged, and supported the pt to discuss current sx/mood, assess risk for harm/need, coping mechanisms, support network and safety planning. ~Supported pt's plan to f/up with Dr. Carney, as planned at [place], [place]. ~Encouraged pt to use safety plan, if needed to ensure she remains safe Last Documented On 2 2:27PM ; [facility] Discussed nutritional needs teach healthy choices including fruits and vegetables Last Documented On 2 3:20PM ; [facility] Patient education about a pr oper diet Last Documented On 2 3:20PM ; [facility] Discussed concerns about exe rcise : promote physical activity ~ ~Will restart trazodone and prazosin ~ ~Patient is planning to have brother stay with her for a few days for emotional support ~ ~Follow up with PCP at next scheduled visit ~ ~Call psychiatrist office to schedule appt ~ ~Call counselor Last Documented On 2 9:35AM ; [facility] Provided supportive listenin g and empathic feedback; encouraged, explored, and supported the pt as she processed current symptoms, Issues, and concerns. ~Discussed past tx and explored current needs/options. Acknowledged and validated pt's thoughts and emotions. ~Explored coping mechanisms and support network; utilized opportunity for safety planning; promoted seeking positive support and seeking help, as needed Last Documented On 2 3:28PM ; [facility] provided active listenin g, support and helped pt process though current symptoms and stressor(s). Discussed and explored past effectiveness of medication; identified objectives and future goals; promoted use of healthy coping mechanisms, and self-care practices Last Documented On 2 3:19PM ; [facility] Reviewed side effects and Ri sks/Benefits analysis Last Documented On 2 3:19PM ; [facility] Discussed nutritional needs teach healthy choices including fruits and vegetables Last Documented On 2 3:15PM ; [facility] Patient education about a pr oper diet Last Documented On 2 3:15PM ; [facility] Discussed concerns about exe rcise : promote physical activity Last Documented On 2 3:15PM ; [facility] introduced pt to [facility] in tegrated model of care ~[facility] offered active listening and supportive feedback; normalized emotions and feelings, also provided pt time to process any current stressors ~[facility] discussed potential benefits of counseling and supported re-engaging, as needed. ~[facility] encouraged pt to continue to make time to implement self-care regimen and use coping methods, as needed Last Documented On 2 4:07PM ; [facility] Discussed nutritional needs teach healthy choices including fruits and vegetables Last Documented On 2 3:15PM ; [facility] Patient education about a pr oper diet Last Documented On 2 3:15PM ; [facility] Inquiry and counseling about medication administration and compliance Last Documented On 2 7:37PM ; [facility] Discussed concerns about exe rcise : promote physical activity Last Documented On 2 3:15PM ; [facility] Patient goals discussed Last Documented On 2 7:37PM ; [facility] Ansewred pt's questions re B orderlline Personality D/O and Bipolar D/O raised by psychiatrist at [facility]. ~Validated and normalized patient?s feelings while assisting to process recent events Last Documented On 1 1:33AM ; [facility] Discussed nutritional needs teach healthy choices including fruits and vegetables Last Documented On 1 2:04PM ; [facility] Patient education about a pr oper diet Last Documented On 1 2:04PM ; [facility] Discussed concerns about exe rcise : promote physical activity Last Documented On 1 2:04PM ; [facility] provided active listenin g, support and helped patient process through current symptoms and stressors with ongoing mental health concerns and medication changes. [facility] discussed coping skills and supports that patient is implementing. discussed implementing coping skills as discussed with counseling and attending weekly appointments as scheduled with counselor. Patient was encouraged to continue writing down concerns with medications and discuss with providers. [facility] reminded patient of crisis resources should they be needed. Patient reports having crisis resources and could return to ER Last Documented On 1 10:17AM ; [facility] Patient education about a pr oper diet Last Documented On 1 5:17PM ; [facility] Patient education about meal planning Last Documented On 1 5:17PM ; [facility] Education about changing eat ing habits Last Documented On 5:17PM ; [facility] Patient education about high fiber diet Last Documented On 5:17PM ; [facility] Patient education about low fat diet Last Documented On 5:17PM ; [facility] Patient education about low cholesterol diet Last Documented On 5:17PM ; [facility] Patient education about low carbohydrate diet Last Documented On 5:17PM ; [facility] Patient education about high protein diet Last Documented On 5:17PM ; [facility] offered active and suppo rtive listening, normalized emotions and feelings, and processed current stressors. ~[facility] discussed resources for finding a counselor and provided list of local resources. ~[facility] discussed patients coping skills and supports and encouraged patient to continue to implement. ~[facility] reminded patient of crisis resources should they be needed Last Documented On 7:15PM ; [facility] Discussed nutritional needs teach healthy choices including fruits and vegetables Last Documented On 11:38AM ; [facility] Patient education about a pr oper diet Last Documented On 11:38AM ; [facility] Patient education about a pr oper diet Last Documented On 12:19PM ; [facility] Patient education about meal planning Last Documented On 12:19PM ; [facility] Education about changing eat ing habits Last Documented On 12:19PM ; [facility] Patient education about high fiber diet Last Documented On 12:19PM ; [facility] Patient education about low fat diet Last Documented On 12:19PM ; [facility] Patient education about low cholesterol diet Last Documented On 12:19PM ; [facility] Patient education about low carbohydrate diet Last Documented On 12:19PM ; [facility] Patient education about high protein diet Last Documented On 12:19PM ; [facility] Discussed concerns about exe rcise : promote physical activity Last Documented On 1 11:38AM ; [facility] provided active listenin g, support and helped patient process through current symptoms and stressors related to family conflict. ~P discussed coping skills and supports with patient that can be implemented and reminded patient of ways to access additional resources. ~P discussed crisis resources and plan. Patient has crisis resources still available should they be needed Last Documented On 1 7:04PM ; [facility] Discussed nutritional needs teach healthy choices including fruits and vegetables Last Documented On 1 3:57PM ; [facility] Patient education about a pr oper diet Last Documented On 1 3:57PM ; [facility] Discussed concerns about exe rcise : promote physical activity Last Documented On 1 3:57PM ; [facility] integrated model of care. [facility] and PCP reassured patient of not sharing information with anyone unless she has signed a release for us to do so. ~[facility] provided active listening, support and helped patient process through current symptoms and stressors. ~P discussed establishing counseling and psychiatry. P discussed EMDR therapy and ways to find provider who does this type of therapy. ~[facility] discussed crisis resources should mood worsen, [facility] provided text hotline number for crisis. [facility] reviewed crisis plan with patient and patient is able to contact positive supports and family when feeling down Last Documented On 1 11:46AM ; [facility] Discussed nutritional needs teach healthy choices including fruits and vegetables Last Documented On 1 2:11PM ; [facility] Patient education about a pr oper diet Last Documented On 1 2:11PM ; [facility] Discussed concerns about exe rcise : promote physical activity Last Documented On 1 2:11PM ; [facility] Work Phone: Instructions Includes: Instructions for all patient encounters Education and Decision Aids were provided during visit for: [facility] offered active and suppo rtive listening and processed recent stressors. ~P discussed coping skills and supports to implement in managing increased anxiety such as tools learned previously in therapy. ~P discussed sleep hygiene strategies that can be implemented. ~[facility] encouraged patient to follow-up with specialists as scheduled Last Documented On 4 3:26PM ; [facility] Discussed nutritional needs teach healthy choices including fruits and vegetables Last Documented On 4 4:51PM ; [facility] Patient education about a pr oper diet Last Documented On 4 4:51PM ; [facility] Discussed concerns about exe rcise : promote physical activity Last Documented On 4 4:51PM ; [facility] Referred Patient to a Diabet es Self-Management Program Last Documented On 4 5:22PM ; [facility] and suppo rtive listening and processed current stressors. ~P discussed coping skills and supports that can be implemented to manage increased anxiety and stressors. [facility] discussed potential of resuming counseling, even if for monthly visits to process ongoing stressors. ~P encouraged patient to follow- up on referrals as discussed with PCP Last Documented On 4 10:08AM ; [facility] Discussed nutritional needs teach healthy choices including fruits and vegetables Last Documented On 4 4:46PM ; [facility] Patient education about a pr oper diet Last Documented On 4 4:46PM ; [facility] Discussed concerns about exe rcise : promote physical activity Last Documented On 4 4:46PM ; [facility] Not requesting contraception Last Documented On 4 4:46PM ; [facility] offered active and suppo rtive listening and processed current stressors related to getting medications. ~P discussed coping skills and supports to implement in daily routine. ~P discussed progress patient has felt they have made recently and encouraged continued follow-up with providers to address health Last Documented On 4 5:16PM ; [facility] Discussed nutritional needs teach healthy choices including fruits and vegetables Last Documented On 4 7:14PM ; [facility] Patient education about a pr oper diet Last Documented On 4 7:14PM ; [facility] Discussed concerns about exe rcise : promote physical activity Last Documented On 4 7:14PM ; [facility] Not requesting contraception Last Documented On 4 7:14PM ; [facility] Discussed nutritional needs teach healthy choices including fruits and vegetables Last Documented On 3 5:15PM ; [facility] Patient education about a pr oper diet Last Documented On 3 5:15PM ; [facility] Discussed concerns about exe rcise : promote physical activity Last Documented On 3 5:15PM ; [facility] Discussed nutritional needs teach healthy choices including fruits and vegetables Last Documented On 2 1:42PM ; [facility] Patient education about a pr oper diet Last Documented On 2 1:42PM ; [facility] Discussed concerns about exe rcise : promote physical activity Last Documented On 2 1:42PM ; [facility] offered active listening and supportive feedback; normalized emotions and feelings, also provided pt time to process any current stressors. ~Promoted and encouraged follow-through with scheduling psychiatric services Last Documented On 2 3:21PM ; [facility] provided supportive, empa thic listening and reflective feedback. ~Explored, encouraged, and supported the pt to discuss current sx/mood, assess risk for harm/need, coping mechanisms, support network and safety planning. ~Supported pt's plan to f/up with Dr. Carney, as planned at [place], [place]. ~Encouraged pt to use safety plan, if needed to ensure she remains safe Last Documented On 2 2:27PM ; [facility] Discussed nutritional needs teach healthy choices including fruits and vegetables Last Documented On 2 3:20PM ; [facility] Patient education about a pr oper diet Last Documented On 2 3:20PM ; [facility] Discussed concerns about exe rcise : promote physical activity ~ ~Will restart trazodone and prazosin ~ ~Patient is planning to have brother stay with her for a few days for emotional support ~ ~Follow up with PCP at next scheduled visit ~ ~Call psychiatrist office to schedule appt ~ ~Call counselor Last Documented On 2 9:35AM ; [facility] Provided supportive listenin g and empathic feedback; encouraged, explored, and supported the pt as she processed current symptoms, Issues, and concerns. ~Discussed past tx and explored current needs/options. Acknowledged and validated pt's thoughts and emotions. ~Explored coping mechanisms and support network; utilized opportunity for safety planning; promoted seeking positive support and seeking help, as needed Last Documented On 2 3:28PM ; [facility] provided active listenin g, support and helped pt process though current symptoms and stressor(s). Discussed and explored past effectiveness of medication; identified objectives and future goals; promoted use of healthy coping mechanisms, and self-care practices Last Documented On 2 3:19PM ; [facility] Reviewed side effects and Ri sks/Benefits analysis Last Documented On 2 3:19PM ; [facility] Discussed nutritional needs teach healthy choices including fruits and vegetables Last Documented On 2 3:15PM ; [facility] Patient education about a pr oper diet Last Documented On 2 3:15PM ; [facility] Discussed concerns about exe rcise : promote physical activity Last Documented On 2 3:15PM ; [facility] introduced pt to HPWO in tegrated model of care ~[facility] offered active listening and supportive feedback; normalized emotions and feelings, also provided pt time to process any current stressors ~[facility] discussed potential benefits of counseling and supported re-engaging, as needed. ~[facility] encouraged pt to continue to make time to implement self-care regimen and use coping methods, as needed Last Documented On 2 4:07PM ; [facility] Discussed nutritional needs teach healthy choices including fruits and vegetables Last Documented On 2 3:15PM ; [facility] Patient education about a pr oper diet Last Documented On 2 3:15PM ; [facility] Inquiry and counseling about medication administration and compliance Last Documented On 2 7:37PM ; [facility] Discussed concerns about exe rcise : promote physical activity Last Documented On 2 3:15PM ; [facility] Patient goals discussed Last Documented On 2 7:37PM ; [facility] Ansewred pt's questions re B orderlline Personality D/O and Bipolar D/O raised by psychiatrist at [facility]. ~Validated and normalized patient?s feelings while assisting to process recent events Last Documented On 1 1:33AM ; [facility] Discussed nutritional needs teach healthy choices including fruits and vegetables Last Documented On 1 2:04PM ; [facility] Patient education about a pr oper diet Last Documented On 1 2:04PM ; [facility] Discussed concerns about exe rcise : promote physical activity Last Documented On 1 2:04PM ; [facility] provided active listenin g, support and helped patient process through current symptoms and stressors with ongoing mental health concerns and medication changes. ~P discussed coping skills and supports that patient is implementing. discussed implementing coping skills as discussed with counseling and attending weekly appointments as scheduled with counselor. Patient was encouraged to continue writing down concerns with medications and discuss with providers. ~[facility] reminded patient of crisis resources should they be needed. Patient reports having crisis resources and could return to ER Last Documented On 1 10:17AM ; [facility] Patient education about a pr oper diet Last Documented On 1 5:17PM ; [facility] Patient education about meal planning Last Documented On 1 5:17PM ; [facility] Education about changing eat ing habits Last Documented On 1 5:17PM ; [facility] Patient education about high fiber diet Last Documented On 1 5:17PM ; [facility] Patient education about low fat diet Last Documented On 1 5:17PM ; [facility] Patient education about low cholesterol diet Last Documented On 1 5:17PM ; [facility] Patient education about low carbohydrate diet Last Documented On 1 5:17PM ; [facility] Patient education about high protein diet Last Documented On 1 5:17PM ; [facility] offered active and suppo rtive listening, normalized emotions and feelings, and processed current stressors. ~[facility] discussed resources for finding a counselor and provided list of local resources. ~[facility] discussed patients coping skills and supports and encouraged patient to continue to implement. [facility] reminded patient of crisis resources should they be needed Last Documented On 1 7:15PM ; [facility] Discussed nutritional needs teach healthy choices including fruits and vegetables Last Documented On 1 11:38AM ; [facility] Patient education about a pr oper diet Last Documented On 1 11:38AM ; [facility] Patient education about a pr oper diet Last Documented On 1 12:19PM ; [facility] Patient education about meal planning Last Documented On 1 12:19PM ; [facility] Education about changing eat ing habits Last Documented On 1 12:19PM ; [facility] Patient education about high fiber diet Last Documented On 1 12:19PM ; [facility] Patient education about low fat diet Last Documented On 1 12:19PM ; [facility] Patient education about low cholesterol diet Last Documented On 1 12:19PM ; [facility] Patient education about low carbohydrate diet Last Documented On 1 12:19PM ; [facility] Patient education about high protein diet Last Documented On 1 12:19PM ; [facility] Discussed concerns about exe rcise : promote physical activity Last Documented On 1 11:38AM ; [facility] provided active listenin g, support and helped patient process through current symptoms and stressors related to family conflict. [facility] discussed coping skills and supports with patient that can be implemented and reminded patient of ways to access additional resources. ~[facility] discussed crisis resources and plan. Patient has crisis resources still available should they be needed Last Documented On 1 7:04PM ; [facility] Discussed nutritional needs teach healthy choices including fruits and vegetables Last Documented On 1 3:57PM ; [facility] Patient education about a pr oper diet Last Documented On 1 3:57PM ; [facility] Discussed concerns about exe rcise : promote physical activity Last Documented On 1 3:57PM ; [facility] introduced patient to [facility] integrated model of care. [facility] and PCP reassured patient of not sharing information with anyone unless she has signed a release for us to do so. ~P provided active listening, support and helped patient process through current symptoms and stressors. ~P discussed establishing counseling and psychiatry. [facility] discussed EMDR therapy and ways to find provider who does this type of therapy. ~[facility] discussed crisis resources should mood worsen, [facility] provided text hotline number for crisis. [facility] reviewed crisis plan with patient and patient is able to contact positive supports and family when feeling down Last Documented On 1 11:46AM ; [facility] Discussed nutritional needs teach healthy choices including fruits and vegetables Last Documented On 1 2:11PM ; [facility] Patient education about a pr oper diet Last Documented On 1 2:11PM ; [facility] Discussed concerns about exe rcise : promote physical activity Last Documented On 1 2:11PM ; [facility] Work Phone: Instructions Includes: Instructions for all patient encounters Education and Decision Aids were provided during visit for: ~*[facility] offered active and sup portive listening, normalized emotions and feelings, and processed ~current stressors. ~*Discussed engageing in counseling and looking into EMDR to address PTSD and increased nightmares Last Documented On 4 4:14PM ; [facility] Discussed nutritional needs teach healthy choices including fruits and vegetables Last Documented On 4 4:33PM ; [facility] Patient education about a pr oper diet Last Documented On 4 4:33PM ; [facility] Discussed concerns about exe rcise : promote physical activity Last Documented On 4 4:33PM ; [facility] offered active and suppo rtive listening and processed recent stressors. ~P discussed coping skills and supports to implement in managing increased anxiety such as tools learned previously in therapy. ~P discussed sleep hygiene strategies that can be implemented. ~[facility] encouraged patient to follow-up with specialists as scheduled Last Documented On 4 3:26PM ; [facility] Discussed nutritional needs teach healthy choices including fruits and vegetables Last Documented On 4 4:51PM ; [facility] Patient education about a pr oper diet Last Documented On 4 4:51PM ; [facility] Discussed concerns about exe rcise : promote physical activity Last Documented On 4 4:51PM ; [facility] Referred Patient to a Diabet es Self-Management Program Last Documented On 4 5:22PM ; [facility] offered active and suppo rtive listening and processed current stressors. ~P discussed coping skills and supports that can be implemented to manage increased anxiety and stressors. P discussed potential of resuming counseling, even if for monthly visits to process ongoing stressors. ~[facility] encouraged patient to follow- up on referrals as discussed with PCP Last Documented On 4 10:08AM ; [facility] Discussed nutritional needs teach healthy choices including fruits and vegetables Last Documented On 4 4:46PM ; [facility] Patient education about a pr oper diet Last Documented On 4 4:46PM ; [facility] Discussed concerns about exe rcise : promote physical activity Last Documented On 4 4:46PM ; [facility] Not requesting contraception Last Documented On 4 4:46PM ; [facility] offered active and suppo rtive listening and processed current stressors related to getting medications. ~[facility] discussed coping skills and supports to implement in daily routine. ~[facility] discussed progress patient has felt they have made recently and encouraged continued follow-up with providers to address health Last Documented On 4 5:16PM ; [facility] Discussed nutritional needs teach healthy choices including fruits and vegetables Last Documented On 4 7:14PM ; [facility] Patient education about a pr oper diet Last Documented On 4 7:14PM ; [facility] Discussed concerns about exe rcise : promote physical activity Last Documented On 4 7:14PM ; [facility] Not requesting contraception Last Documented On 4 7:14PM ; [facility] Discussed nutritional needs teach healthy choices including fruits and vegetables Last Documented On 3 5:15PM ; [facility] Patient education about a pr oper diet Last Documented On 3 5:15PM ; [facility] Discussed concerns about exe rcise : promote physical activity Last Documented On 3 5:15PM ; [facility] Discussed nutritional needs teach healthy choices including fruits and vegetables Last Documented On 2 1:42PM ; [facility] Patient education about a pr oper diet Last Documented On 2 1:42PM ; [facility] Discussed concerns about exe rcise : promote physical activity Last Documented On 2 1:42PM ; [facility] active listening and supportive feedback; normalized emotions and feelings, also provided pt time to process any current stressors. ~Promoted and encouraged follow-through with scheduling psychiatric services Last Documented On 2 3:21PM ; [facility] provided supportive, empa thic listening and reflective feedback. ~Explored, encouraged, and supported the pt to discuss current sx/mood, assess risk for harm/need, coping mechanisms, support network and safety planning. ~Supported pt's plan to f/up with Dr. Carney, as planned at [place]. ~Encouraged pt to use safety plan, if needed to ensure she remains safe Last Documented On 2 2:27PM ; [facility] Discussed nutritional needs teach healthy choices including fruits and vegetables Last Documented On 2 3:20PM ; [facility] Patient education about a pr oper diet Last Documented On 2 3:20PM ; [facility] Discussed concerns about exe rcise : promote physical activity ~ ~Will restart trazodone and prazosin ~ ~Patient is planning to have brother stay with her for a few days for emotional support ~ ~Follow up with PCP at next scheduled visit ~ ~Call psychiatrist office to schedule appt ~ ~Call counselor Last Documented On 2 9:35AM ; [facility] Provided supportive listenin g and empathic feedback; encouraged, explored, and supported the pt as she processed current symptoms, Issues, and concerns. ~Discussed past tx and explored current needs/options. Acknowledged and validated pt's thoughts and emotions. ~Explored coping mechanisms and support network; utilized opportunity for safety planning; promoted seeking positive support and seeking help, as needed Last Documented On 2 3:28PM ; [facility] provided active listenin g, support and helped pt process though current symptoms and stressor(s). Discussed and explored past effectiveness of medication; identified objectives and future goals; promoted use of healthy coping mechanisms, and self-care practices Last Documented On 2 3:19PM ; [facility] Reviewed side effects and Ri sks/Benefits analysis Last Documented On 2 3:19PM ; [facility] Discussed nutritional needs teach healthy choices including fruits and vegetables Last Documented On 2 3:15PM ; [facility] Patient education about a pr oper diet Last Documented On 2 3:15PM ; [facility] Discussed concerns about exe rcise : promote physical activity Last Documented On 2 3:15PM ; [facility] introduced pt to HPWO in tegrated model of care ~[facility] offered active listening and supportive feedback; normalized emotions and feelings, also provided pt time to process any current stressors ~[facility] discussed potential benefits of counseling and supported re-engaging, as needed. ~[facility] encouraged pt to continue to make time to implement self-care regimen and use coping methods, as needed Last Documented On 2 4:07PM ; [facility] Discussed nutritional needs teach healthy choices including fruits and vegetables Last Documented On 2 3:15PM ; [facility] Patient education about a pr oper diet Last Documented On 2 3:15PM ; [facility] Inquiry and counseling about medication administration and compliance Last Documented On 2 7:37PM ; [facility] Discussed concerns about exe rcise : promote physical activity Last Documented On 2 3:15PM ; [facility] Patient goals discussed Last Documented On 2 7:37PM ; [facility] Ansewred pt's questions re B orderlline Personality D/O and Bipolar D/O raised by psychiatrist at [facility]. ~Validated and normalized patient?s feelings while assisting to process recent events Last Documented On 1 1:33AM ; [facility] Discussed nutritional needs teach healthy choices including fruits and vegetables Last Documented On 1 2:04PM ; [facility] Patient education about a pr oper diet Last Documented On 1 2:04PM ; [facility] Discussed concerns about exe rcise : promote physical activity Last Documented On 1 2:04PM ; [facility] provided active listenin g, support and [...] ER Last Documented On 1 10:17AM ; [facility] Patient education about a pr oper diet Last Documented On 1 5:17PM ; [facility] Patient education about meal planning Last Documented On 5:17PM ; [facility] Education about changing eat ing habits Last Documented On 1 5:17PM ; [facility] Patient education about high fiber diet Last Documented On 1 5:17PM ; [facility] Patient education about low fat diet Last Documented On 1 5:17PM ; [facility] Patient education about low cholesterol diet Last Documented On 1 5:17PM ; [facility] Patient education about low carbohydrate diet Last Documented On 1 5:17PM ; [facility] Patient education about high protein diet Last Documented On 1 5:17PM ; [facility] offered active and suppo rtive listening, normalized emotions and feelings, and processed current stressors. ~P discussed resources for finding a counselor and provided list of local resources. ~P discussed patients coping skills and supports and encouraged patient to continue to implement. ~[facility] reminded patient of crisis resources should they be needed Last Documented On 1 7:15PM ; [facility] Discussed nutritional needs teach healthy choices including fruits and vegetables Last Documented On 1 11:38AM ; [facility] Patient education about a pr oper diet Last Documented On 1 11:38AM ; [facility] Patient education about a pr oper diet Last Documented On 1 12:19PM ; [facility] Patient education about meal planning Last Documented On 1 12:19PM ; [facility] Education about changing eat ing habits Last Documented On 1 12:19PM ; [facility] Patient education about high fiber diet Last Documented On 1 12:19PM ; [facility] Patient education about low fat diet Last Documented On 1 12:19PM ; [facility] Patient education about low cholesterol diet Last Documented On 1 12:19PM ; [facility] Patient education about low carbohydrate diet Last Documented On 1 12:19PM ; [facility] Patient education about high protein diet Last Documented On 1 12:19PM ; [facility] Discussed concerns about exe rcise : promote physical activity Last Documented On 1 11:38AM ; [facility] provided active listenin g, support and helped patient process through current symptoms and stressors related to family conflict. ~[facility] discussed coping skills and supports with patient that can be implemented and reminded patient of ways to access additional resources. ~[facility] discussed crisis resources and plan. Patient has crisis resources still available should they be needed Last Documented On 1 7:04PM ; [facility] Discussed nutritional needs teach healthy choices including fruits and vegetables Last Documented On 1 3:57PM ; [facility] Patient education about a pr oper diet Last Documented On 1 3:57PM ; [facility] Discussed concerns about exe rcise : promote physical activity Last Documented On 1 3:57PM ; [facility] integrated model of care. [facility] [...] ~P discussed crisis resources should mood worsen, [facility] provided text hotline number for crisis. P reviewed crisis plan with patient and patient is able to contact positive supports and family when feeling down Last Documented On 1 11:46AM ; [facility] Discussed nutritional needs teach healthy choices including fruits and vegetables Last Documented On 1 2:11PM ; [facility] Patient education about a pr oper diet Last Documented On 1 2:11PM ; [facility] Discussed concerns about exe rcise : promote physical activity Last Documented On 1 2:11PM ; [facility] Work Phone: Instructions Includes: Instructions for all patient encounters Education and Decision Aids were provided during visit for: ~*[facility] offered active and sup portive listening, normalized emotions and feelings, and processed ~current stressors. ~*Discussed engageing in counseling and looking into EMDR to address PTSD and increased nightmares Last Documented On 4 4:14PM ; [facility] Discussed nutritional needs teach healthy choices including fruits and vegetables Last Documented On 4 4:33PM ; [facility] Patient education about a pr oper diet Last Documented On 4 4:33PM ; [facility] Discussed concerns about exe rcise : promote physical activity Last Documented On 4 4:33PM ; [facility] offered active and suppo rtive listening and processed recent stressors. ~P discussed coping skills and supports to implement in managing increased anxiety such as tools learned previously in therapy. ~P discussed sleep hygiene strategies that can be implemented. ~[facility] encouraged patient to follow-up with specialists as scheduled Last Documented On 4 3:26PM ; [facility] Discussed nutritional needs teach healthy choices including fruits and vegetables Last Documented On 4 4:51PM ; [facility] Patient education about a pr oper diet Last Documented On 4 4:51PM ; [facility] Discussed concerns about exe rcise : promote physical activity Last Documented On 4 4:51PM ; [facility] Referred Patient to a Diabet es Self-Management Program Last Documented On 4 5:22PM ; [facility] offered active and suppo rtive listening and processed current stressors. ~P discussed coping skills and supports that can be implemented to manage increased anxiety and stressors. P discussed potential of resuming counseling, even if for monthly visits to process ongoing stressors. ~[facility] encouraged patient to follow- up on referrals as discussed with PCP Last Documented On 4 10:08AM ; [facility] Discussed nutritional needs teach healthy choices including fruits and vegetables Last Documented On 4 4:46PM ; [facility] Patient education about a pr oper diet Last Documented On 4 4:46PM ; [facility] Discussed concerns about exe rcise : promote physical activity Last Documented On 4 4:46PM ; [facility] Not requesting contraception Last Documented On 4 4:46PM ; [facility] offered active and suppo rtive listening and processed current stressors related to getting medications. ~P discussed coping skills and supports to implement in daily routine. ~[facility] discussed progress patient has felt they have made recently and encouraged continued follow-up with providers to address health Last Documented On 4 5:16PM ; [facility] Discussed nutritional needs teach healthy choices including fruits and vegetables Last Documented On 4 7:14PM ; [facility] Patient education about a pr oper diet Last Documented On 4 7:14PM ; [facility] Discussed concerns about exe rcise : promote physical activity Last Documented On 4 7:14PM ; [facility] Not requesting contraception Last Documented On 4 7:14PM ; [facility] Discussed nutritional needs teach healthy choices including fruits and vegetables Last Documented On 3 5:15PM ; [facility] Patient education about a pr oper diet Last Documented On 3 5:15PM ; [facility] Discussed concerns about exe rcise : promote physical activity Last Documented On 3 5:15PM ; [facility] Discussed nutritional needs teach healthy choices including fruits and vegetables Last Documented On 2 1:42PM ; [facility] Patient education about a pr oper diet Last Documented On 2 1:42PM ; [facility] Discussed concerns about exe rcise : promote physical activity Last Documented On 2 1:42PM ; [facility] active listening and supportive feedback; normalized emotions and feelings, also provided pt time to process any current stressors. ~Promoted and encouraged follow-through with scheduling psychiatric services Last Documented On 2 3:21PM ; [facility] provided supportive, empa thic listening and reflective feedback. ~Explored, encouraged, and supported the pt to discuss current sx/mood, assess risk for harm/need, coping mechanisms, support network and safety planning. ~Supported pt's plan to f/up with Dr. Carney, as planned at [place], [place]. ~Encouraged pt to use safety plan, if needed to ensure she remains safe Last Documented On 2 2:27PM ; [facility] Discussed nutritional needs teach healthy choices including fruits and vegetables Last Documented On 2 3:20PM ; [facility] Patient education about a pr oper diet Last Documented On 2 3:20PM ; [facility] Discussed concerns about exe rcise : promote physical activity ~ ~Will restart trazodone and prazosin ~ ~Patient is planning to have brother stay with her for a few days for emotional support ~ ~Follow up with PCP at next scheduled visit ~ ~Call psychiatrist office to schedule appt ~ ~Call counselor Last Documented On 2 9:35AM ; [facility] Provided supportive listenin g and empathic feedback; encouraged, explored, and supported the pt as she processed current symptoms, Issues, and concerns. ~Discussed past tx and explored current needs/options. Acknowledged and validated pt's thoughts and emotions. ~Explored coping mechanisms and support network; utilized opportunity for safety planning; promoted seeking positive support and seeking help, as needed Last Documented On 2 3:28PM ; [facility] provided active listenin g, support and helped pt process though current symptoms and stressor(s). Discussed and explored past effectiveness of medication; identified objectives and future goals; promoted use of healthy coping mechanisms, and self-care practices Last Documented On 2 3:19PM ; [facility] Reviewed side effects and Ri sks/Benefits analysis Last Documented On 2 3:19PM ; [facility] Discussed nutritional needs teach healthy choices including fruits and vegetables Last Documented On 2 3:15PM ; [facility] Patient education about a pr oper diet Last Documented On 2 3:15PM ; [facility] Discussed concerns about exe rcise : promote physical activity Last Documented On 2 3:15PM ; [facility] introduced pt to [facility] in tegrated model of care ~[facility] offered active listening and supportive feedback; normalized emotions and feelings, also provided pt time to process any current stressors ~[facility] discussed potential benefits of counseling and supported re-engaging, as needed. ~[facility] encouraged pt to continue to make time to implement self-care regimen and use coping methods, as needed Last Documented On 2 4:07PM ; [facility] Discussed nutritional needs teach healthy choices including fruits and vegetables Last Documented On 2 3:15PM ; [facility] Patient education about a pr oper diet Last Documented On 2 3:15PM ; [facility] Inquiry and counseling about medication administration and compliance Last Documented On 2 7:37PM ; [facility] Discussed concerns about exe rcise : promote physical activity Last Documented On 2 3:15PM ; [facility] Patient goals discussed Last Documented On 2 7:37PM ; [facility] Ansewred pt's questions re B orderlline Personality D/O and Bipolar D/O raised by psychiatrist at [facility]. ~Validated and normalized patient?s feelings while assisting to process recent events Last Documented On 1 1:33AM ; [facility] Discussed nutritional needs teach healthy choices including fruits and vegetables Last Documented On 1 2:04PM ; [facility] Patient education about a pr oper diet Last Documented On 1 2:04PM ; [facility] Discussed concerns about exe rcise : promote physical activity Last Documented On 1 2:04PM ; [facility] provided active listenin g, support and helped patient process through current symptoms and stressors with ongoing mental health concerns and medication changes. ~[facility] discussed coping skills and supports that patient is implementing. discussed implementing coping skills as discussed with counseling and attending weekly appointments as scheduled with counselor. Patient was encouraged to continue writing down concerns with medications and discuss with providers. ~[facility] reminded patient of crisis resources should they be needed. Patient reports having crisis resources and could return to ER Last Documented On 1 10:17AM ; [facility] Patient education about a pr oper diet Last Documented On 1 5:17PM ; [facility] Patient education about meal planning Last Documented On 1 5:17PM ; [facility] Education about changing eat ing habits Last Documented On 1 5:17PM ; [facility] Patient education about high fiber diet Last Documented On 1 5:17PM ; [facility] Patient education about low fat diet Last Documented On 1 5:17PM ; [facility] Patient education about low cholesterol diet Last Documented On 1 5:17PM ; [facility] Patient education about low carbohydrate diet Last Documented On 1 5:17PM ; [facility] Patient education about high protein diet Last Documented On 1 5:17PM ; [facility] offered active and suppo rtive listening, normalized emotions and feelings, and processed current stressors. ~[facility] discussed resources for finding a counselor and provided list of local resources. ~[facility] discussed patients coping skills and supports and encouraged patient to continue to implement. ~[facility] reminded patient of crisis resources should they be needed Last Documented On 1 7:15PM ; [facility] Discussed nutritional needs teach healthy choices including fruits and vegetables Last Documented On 1 11:38AM ; [facility] Patient education about a pr oper diet Last Documented On 1 11:38AM ; [facility] Patient education about a pr oper diet Last Documented On 1 12:19PM ; [facility] Patient education about meal planning Last Documented On 12:19PM ; [facility] Education about changing eat ing habits Last Documented On 1 12:19PM ; [facility] Patient education about high fiber diet Last Documented On 1 12:19PM ; [facility] Patient education about low fat diet Last Documented On 12:19PM ; [facility] Patient education about low cholesterol diet Last Documented On 12:19PM ; [facility] Patient education about low carbohydrate diet Last Documented On 12:19PM ; [facility] Patient education about high protein diet Last Documented On 12:19PM ; [facility] Discussed concerns about exe rcise : promote physical activity Last Documented On 1 11:38AM ; [facility] provided active listenin [facility], support and helped patient process through current symptoms and stressors related to family conflict. ~P discussed coping skills and supports with patient that can be implemented and reminded patient of ways to access additional resources. ~[facility] discussed crisis resources and plan. Patient has crisis resources still available should they be needed Last Documented On 1 7:04PM ; [facility] Discussed nutritional needs teach healthy choices including fruits and vegetables Last Documented On 1 3:57PM ; [facility] Patient education about a pr oper diet Last Documented On 1 3:57PM ; [facility] Discussed concerns about exe rcise : promote physical activity Last Documented On 1 3:57PM ; [facility] to [facility] integrated model of care. [facility] and PCP reassured patient of not sharing information with anyone unless she has signed a release for us to do so. ~[facility] provided active listening, support and helped patient process through current symptoms and stressors. ~[facility] discussed establishing counseling and psychiatry. P discussed EMDR therapy and ways to find provider who does this type of therapy. ~[facility] discussed crisis resources should mood worsen, [facility] provided text hotline number for crisis. P reviewed crisis plan with patient and patient is able to contact positive supports and family when feeling down Last Documented On 1 11:46AM ; [facility] Discussed nutritional needs teach healthy choices including fruits and vegetables Last Documented On 1 2:11PM ; [facility] Patient education about a pr oper diet Last Documented On 1 2:11PM ; [facility] Discussed concerns about exe rcise : promote physical activity Last Documented On 1 2:11PM ; [facility] Work Phone: Instructions Includes: Instructions for all patient encounters Education and Decision Aids were provided during visit for: ~*[facility] offered active and sup portive listening, normalized emotions and feelings, and processed ~current stressors. ~*Discussed engageing in counseling and looking into EMDR to address PTSD and increased nightmares Last Documented On 4 4:14PM ; [facility] Discussed nutritional needs teach healthy choices including fruits and vegetables Last Documented On 4 4:33PM ; [facility] Patient education about a pr oper diet Last Documented On 4 4:33PM ; [facility] Discussed concerns about exe rcise : promote physical activity Last Documented On 4 4:33PM ; [facility] offered active and suppo rtive listening and processed recent stressors. ~[facility] discussed coping skills and supports to implement in managing increased anxiety such as tools learned previously in therapy. ~[facility] discussed sleep hygiene strategies that can be implemented. ~[facility] encouraged patient to follow-up with specialists as scheduled Last Documented On 4 3:26PM ; [facility] Discussed nutritional needs teach healthy choices including fruits and vegetables Last Documented On 4 4:51PM ; [facility] Patient education about a pr oper diet Last Documented On 4 4:51PM ; [facility] Discussed concerns about exe rcise : promote physical activity Last Documented On 4 4:51PM ; [facility] Referred Patient to a Diabet es Self-Management Program Last Documented On 4 5:22PM ; [facility] offered active and suppo rtive listening and processed current stressors. ~P discussed coping skills and supports that can be implemented to manage increased anxiety and stressors. P discussed potential of resuming counseling, even if for monthly visits to process ongoing stressors. ~[facility] encouraged patient to follow- up on referrals as discussed with PCP Last Documented On 4 10:08AM ; [facility] Discussed nutritional needs teach healthy choices including fruits and vegetables Last Documented On 4 4:46PM ; [facility] Patient education about a pr oper diet Last Documented On 4 4:46PM ; [facility] Discussed concerns about exe rcise : promote physical activity Last Documented On 4 4:46PM ; [facility] Not requesting contraception Last Documented On 4 4:46PM ; [facility] offered active and suppo rtive listening and processed current stressors related to getting medications. ~[facility] discussed coping skills and supports to implement in daily routine. ~[facility] discussed progress patient has felt they have made recently and encouraged continued follow-up with providers to address health Last Documented On 4 5:16PM ; [facility] Discussed nutritional needs teach healthy choices including fruits and vegetables Last Documented On 4 7:14PM ; [facility] Patient education about a pr oper diet Last Documented On 4 7:14PM ; [facility] Discussed concerns about exe rcise : promote physical activity Last Documented On 4 7:14PM ; [facility] Not requesting contraception Last Documented On 4 7:14PM ; [facility] Discussed nutritional needs teach healthy choices including fruits and vegetables Last Documented On 3 5:15PM ; [facility] Patient education about a pr oper diet Last Documented On 3 5:15PM ; [facility] Discussed concerns about exe rcise : promote physical activity Last Documented On 3 5:15PM ; [facility] Discussed nutritional needs teach healthy choices including fruits and vegetables Last Documented On 2 1:42PM ; [facility] Patient education about a pr oper diet Last Documented On 2 1:42PM ; [facility] Discussed concerns about exe rcise : promote physical activity Last Documented On 2 1:42PM ; [facility] offered active listening and supportive feedback; normalized emotions and feelings, also provided pt time to process any current stressors. ~Promoted and encouraged follow-through with scheduling psychiatric services Last Documented On 2 3:21PM ; [facility] provided supportive, empa thic listening and reflective feedback. ~Explored, encouraged, and supported the pt to discuss current sx/mood, assess risk for harm/need, coping mechanisms, support network and safety planning. ~Supported pt's plan to f/up with Dr. Carney, as planned at [place], [place]. ~Encouraged pt to use safety plan, if needed to ensure she remains safe Last Documented On 2 2:27PM ; [facility] Discussed nutritional needs teach healthy choices including fruits and vegetables Last Documented On 2 3:20PM ; [facility] Patient education about a pr oper diet Last Documented On 2 3:20PM ; [facility] Discussed concerns about exe rcise : promote physical activity ~ ~Will restart trazodone and prazosin ~ ~Patient is planning to have brother stay with her for a few days for emotional support ~ ~Follow up with PCP at next scheduled visit ~ ~Call psychiatrist office to schedule appt ~ ~Call counselor Last Documented On 2 9:35AM ; [facility] Provided supportive listenin g and empathic feedback; encouraged, explored, and supported the pt as she processed current symptoms, Issues, and concerns. ~Discussed past tx and explored current needs/options. Acknowledged and validated pt's thoughts and emotions. ~Explored coping mechanisms and support network; utilized opportunity for safety planning; promoted seeking positive support and seeking help, as needed Last Documented On 2 3:28PM ; [facility] provided active listenin g, support and helped pt process though current symptoms and stressor(s). Discussed and explored past effectiveness of medication; identified objectives and future goals; promoted use of healthy coping mechanisms, and self-care practices Last Documented On 2 3:19PM ; [facility] Reviewed side effects and Ri sks/Benefits analysis Last Documented On 2 3:19PM ; [facility] Discussed nutritional needs teach healthy choices including fruits and vegetables Last Documented On 2 3:15PM ; [facility] Patient education about a pr oper diet Last Documented On 2 3:15PM ; [facility] Discussed concerns about exe rcise : promote physical activity Last Documented On 2 3:15PM ; [facility] introduced pt to [facility] in tegrated model of care ~[facility] offered active listening and supportive feedback; normalized emotions and feelings, also provided pt time to process any current stressors ~[facility] discussed potential benefits of counseling and supported re-engaging, as needed. ~[facility] encouraged pt to continue to make time to implement self-care regimen and use coping methods, as needed Last Documented On 2 4:07PM ; [facility] Discussed nutritional needs teach healthy choices including fruits and vegetables Last Documented On 2 3:15PM ; [facility] Patient education about a pr oper diet Last Documented On 2 3:15PM ; [facility] Inquiry and counseling about medication administration and compliance Last Documented On 2 7:37PM ; [facility] Discussed concerns about exe rcise : promote physical activity Last Documented On 2 3:15PM ; [facility] Patient goals discussed Last Documented On 2 7:37PM ; [facility] Ansewred pt's questions re B orderlline Personality D/O and Bipolar D/O raised by psychiatrist at [facility]. ~Validated and normalized patient?s feelings while assisting to process recent events Last Documented On 1 1:33AM ; [facility] Discussed nutritional needs teach healthy choices including fruits and vegetables Last Documented On 1 2:04PM ; [facility] Patient education about a pr oper diet Last Documented On 1 2:04PM ; [facility] Discussed concerns about exe rcise : promote physical activity Last Documented On 1 2:04PM ; [facility] provided active listenin g, support and helped patient process through current symptoms and stressors with ongoing mental health concerns and medication changes. ~[facility] discussed coping skills and supports that patient is implementing. discussed implementing coping skills as discussed with counseling and attending weekly appointments as scheduled with counselor. Patient was encouraged to continue writing down concerns with medications and discuss with providers. ~[facility] reminded patient of crisis resources should they be needed. Patient reports having crisis resources and could return to ER Last Documented On 1 10:17AM ; [facility] Patient education about a pr oper diet Last Documented On 1 5:17PM ; [facility] Patient education about meal planning Last Documented On 1 5:17PM ; [facility] Education about changing eat ing habits Last Documented On 1 5:17PM ; [facility] Patient education about high fiber diet Last Documented On 1 5:17PM ; [facility] Patient education about low fat diet Last Documented On 1 5:17PM ; [facility] Patient education about low cholesterol diet Last Documented On 1 5:17PM ; [facility] Patient education about low carbohydrate diet Last Documented On 1 5:17PM ; [facility] Patient education about high protein diet Last Documented On 1 5:17PM ; [facility] offered active and suppo rtive listening, normalized emotions and feelings, and processed current stressors. ~[facility] discussed resources for finding a counselor and provided list of local resources. ~[facility] discussed patients coping skills and supports and encouraged patient to continue to implement. [facility] reminded patient of crisis resources should they be needed Last Documented On 1 7:15PM ; [facility] Discussed nutritional needs teach healthy choices including fruits and vegetables Last Documented On 1 11:38AM ; [facility] Patient education about a pr oper diet Last Documented On 1 11:38AM ; [facility] Patient education about a pr oper diet Last Documented On 1 12:19PM ; [facility] Patient education about meal planning Last Documented On 1 12:19PM ; [facility] Education about changing eat ing habits Last Documented On 1 12:19PM ; [facility] Patient education about high fiber diet Last Documented On 1 12:19PM ; [facility] Patient education about low fat diet Last Documented On 1 12:19PM ; [facility] Patient education about low cholesterol diet Last Documented On 1 12:19PM ; [facility] Patient education about low carbohydrate diet Last Documented On 1 12:19PM ; [facility] Patient education about high protein diet Last Documented On 1 12:19PM ; [facility] Discussed concerns about exe rcise : promote physical activity Last Documented On 1 11:38AM ; [facility], support and helped patient process through current symptoms and stressors related to family conflict. ~P discussed coping skills and supports with patient that can be implemented and reminded patient of ways to access additional resources. ~P discussed crisis resources and plan. Patient has crisis resources still available should they be needed Last Documented On 1 7:04PM ; [facility] Discussed nutritional needs teach healthy choices including fruits and vegetables Last Documented On 1 3:57PM ; [facility] Patient education about a pr oper diet Last Documented On 1 3:57PM ; [facility] Discussed concerns about exe rcise : promote physical activity Last Documented On 1 3:57PM ; [facility] integrated model of care. [facility] and PCP reassured patient of not sharing information with anyone unless she has signed a release for us to do so. ~P provided active listening, support and helped patient process through current symptoms and stressors. ~P discussed establishing counseling and psychiatry. [facility] discussed EMDR therapy and ways to find provider who does this type of therapy. ~[facility] discussed crisis resources should mood worsen, [facility] provided text hotline number for crisis. [facility] reviewed crisis plan with patient and patient is able to contact positive supports and family when feeling down Last Documented On 1 11:46AM ; [facility] Discussed nutritional needs teach healthy choices including fruits and vegetables Last Documented On 1 2:11PM ; [facility] Patient education about a pr oper diet Last Documented On 1 2:11PM ; [facility] Discussed concerns about exe rcise : promote physical activity Last Documented On 1 2:11PM ; [facility] Work Phone: Instructions Includes: Instructions for all patient encounters Education and Decision Aids were provided during visit for: ~*[facility] offered active and sup portive listening, normalized emotions and feelings, and processed ~current stressors. ~*Discussed engageing in counseling and looking into EMDR to address PTSD and increased nightmares Last Documented On 4 4:14PM ; [facility] Discussed nutritional needs teach healthy choices including fruits and vegetables Last Documented On 4 4:33PM ; [facility] Patient education about a pr oper diet Last Documented On 4 4:33PM ; [facility] Discussed concerns about exe rcise : promote physical activity Last Documented On 4 4:33PM ; [facility] offered active and suppo rtive listening and processed recent stressors. ~[facility] discussed coping skills and supports to implement in managing increased anxiety such as tools learned previously in therapy. ~[facility] discussed sleep hygiene strategies that can be implemented. ~[facility] encouraged patient to follow-up with specialists as scheduled Last Documented On 4 3:26PM ; [facility] Discussed nutritional needs teach healthy choices including fruits and vegetables Last Documented On 4 4:51PM ; [facility] Patient education about a pr oper diet Last Documented On 4 4:51PM ; [facility] Discussed concerns about exe rcise : promote physical activity Last Documented On 4 4:51PM ; [facility] Referred Patient to a Diabet es Self-Management Program Last Documented On 4 5:22PM ; [facility] offered active and suppo rtive listening and processed current stressors. ~P discussed coping skills and supports that can be implemented to manage increased anxiety and stressors. [facility] discussed potential of resuming counseling, even if for monthly visits to process ongoing stressors. ~[facility] encouraged patient to follow- up on referrals as discussed with PCP Last Documented On 4 10:08AM ; [facility] Discussed nutritional needs teach healthy choices including fruits and vegetables Last Documented On 4 4:46PM ; [facility] Patient education about a pr oper diet Last Documented On 4 4:46PM ; [facility] Discussed concerns about exe rcise : promote physical activity Last Documented On 4 4:46PM ; [facility] Not requesting contraception Last Documented On 4 4:46PM ; [facility] offered active and suppo rtive listening and processed current stressors related to getting medications. ~[facility] discussed coping skills and supports to implement in daily routine. ~[facility] discussed progress patient has felt they have made recently and encouraged continued follow-up with providers to address health Last Documented On 4 5:16PM ; [facility] Discussed nutritional needs teach healthy choices including fruits and vegetables Last Documented On 4 7:14PM ; [facility] Patient education about a pr oper diet Last Documented On 4 7:14PM ; [facility] Discussed concerns about exe rcise : promote physical activity Last Documented On 4 7:14PM ; [facility] Not requesting contraception Last Documented On 4 7:14PM ; [facility] Discussed nutritional needs teach healthy choices including fruits and vegetables Last Documented On 3 5:15PM ; [facility] Patient education about a pr oper diet Last Documented On 3 5:15PM ; [facility] Discussed concerns about exe rcise : promote physical activity Last Documented On 3 5:15PM ; [facility] Discussed nutritional needs teach healthy choices including fruits and vegetables Last Documented On 2 1:42PM ; [facility] Patient education about a pr oper diet Last Documented On 2 1:42PM ; [facility] Discussed concerns about exe rcise : promote physical activity Last Documented On 2 1:42PM ; [facility] offered active listening and supportive feedback; normalized emotions and feelings, also provided pt time to process any current stressors. ~Promoted and encouraged follow-through with scheduling psychiatric services Last Documented On 2 3:21PM ; [facility] provided supportive, empa thic listening and reflective feedback. ~Explored, encouraged, and supported the pt to discuss current sx/mood, assess risk for harm/need, coping mechanisms, support network and safety planning. ~Supported pt's plan to f/up with Dr. Carney, as planned at [place], [place]. ~Encouraged pt to use safety plan, if needed to ensure she remains safe Last Documented On 2 2:27PM ; [facility] Discussed nutritional needs teach healthy choices including fruits and vegetables Last Documented On 2 3:20PM ; [facility] Patient education about a pr oper diet Last Documented On 2 3:20PM ; [facility] Discussed concerns about exe rcise : promote physical activity ~ ~Will restart trazodone and prazosin ~ ~Patient is planning to have brother stay with her for a few days for emotional support ~ ~Follow up with PCP at next scheduled visit ~ ~Call psychiatrist office to schedule appt ~ ~Call counselor Last Documented On 2 9:35AM ; [facility] Provided supportive listenin g and empathic feedback; encouraged, explored, and supported the pt as she processed current symptoms, Issues, and concerns. ~Discussed past tx and explored current needs/options. Acknowledged and validated pt's thoughts and emotions. ~Explored coping mechanisms and support network; utilized opportunity for safety planning; promoted seeking positive support and seeking help, as needed Last Documented On 2 3:28PM ; [facility] provided active listenin g, support and helped pt process though current symptoms and stressor(s). Discussed and explored past effectiveness of medication; identified objectives and future goals; promoted use of healthy coping mechanisms, and self-care practices Last Documented On 2 3:19PM ; [facility] Reviewed side effects and Ri sks/Benefits analysis Last Documented On 2 3:19PM ; [facility] Discussed nutritional needs teach healthy choices including fruits and vegetables Last Documented On 2 3:15PM ; [facility] Patient education about a pr oper diet Last Documented On 2 3:15PM ; [facility] Discussed concerns about exe rcise : promote physical activity Last Documented On 2 3:15PM ; [facility] introduced pt to [facility] in tegrated model of care ~[facility] offered active listening and supportive feedback; normalized emotions and feelings, also provided pt time to process any current stressors ~[facility] discussed potential benefits of counseling and supported re-engaging, as needed. ~[facility] encouraged pt to continue to make time to implement self-care regimen and use coping methods, as needed Last Documented On 2 4:07PM ; [facility] Discussed nutritional needs teach healthy choices including fruits and vegetables Last Documented On 2 3:15PM ; [facility] Patient education about a pr oper diet Last Documented On 2 3:15PM ; [facility] Inquiry and counseling about medication administration and compliance Last Documented On 2 7:37PM ; [facility] Discussed concerns about exe rcise : promote physical activity Last Documented On 2 3:15PM ; [facility] Patient goals discussed Last Documented On 2 7:37PM ; [facility] Ansewred pt's questions re B orderlline Personality D/O and Bipolar D/O raised by psychiatrist at [facility]. ~Validated and normalized patient?s feelings while assisting to process recent events Last Documented On 1 1:33AM ; [facility] Discussed nutritional needs teach healthy choices including fruits and vegetables Last Documented On 1 2:04PM ; [facility] Patient education about a pr oper diet Last Documented On 1 2:04PM ; [facility] Discussed concerns about exe rcise : promote physical activity Last Documented On 1 2:04PM ; [facility] provided active listenin g, support and helped patient process through current symptoms and stressors with ongoing mental health concerns and medication changes. [facility] discussed coping skills and supports that patient is implementing. discussed implementing coping skills as discussed with counseling and attending weekly appointments as scheduled with counselor. Patient was encouraged to continue writing down concerns with medications and discuss with providers. [facility] reminded patient of crisis resources should they be needed. Patient reports having crisis resources and could return to ER Last Documented On 1 10:17AM ; [facility] Patient education about a pr oper diet Last Documented On 1 5:17PM ; [facility] Patient education about meal planning Last Documented On 1 5:17PM ; [facility] Education about changing eat ing habits Last Documented On 1 5:17PM ; [facility] Patient education about high fiber diet Last Documented On 1 5:17PM ; [facility] Patient education about low fat diet Last Documented On 1 5:17PM ; [facility] Patient education about low cholesterol diet Last Documented On 1 5:17PM ; [facility] Patient education about low carbohydrate diet Last Documented On 1 5:17PM ; [facility] Patient education about high protein diet Last Documented On 1 5:17PM ; [facility] offered active and suppo rtive listening, normalized emotions and feelings, and processed current stressors. [facility] discussed resources for finding a counselor and provided list of local resources. [facility] discussed patients coping skills and supports and encouraged patient to continue to implement. [facility] reminded patient of crisis resources should they be needed Last Documented On 1 7:15PM ; [facility] Discussed nutritional needs teach healthy choices including fruits and vegetables Last Documented On 1 11:38AM ; [facility] Patient education about a pr oper diet Last Documented On 1 11:38AM ; [facility] Patient education about a pr oper diet Last Documented On 1 12:19PM ; [facility] Patient education about meal planning Last Documented On 1 12:19PM ; [facility] Education about changing eat ing habits Last Documented On 1 12:19PM ; [facility] Patient education about high fiber diet Last Documented On 1 12:19PM ; [facility] Patient education about low fat diet Last Documented On 1 12:19PM ; [facility] Patient education about low cholesterol diet Last Documented On 1 12:19PM ; [facility] Patient education about low carbohydrate diet Last Documented On 1 12:19PM ; [facility] Patient education about high protein diet Last Documented On 1 12:19PM ; [facility] Discussed concerns about exe rcise : promote physical activity Last Documented On 1 11:38AM ; [facility] provided active listenin [facility], support and helped patient process through current symptoms and stressors related to family conflict. ~P discussed coping skills and supports with patient that can be implemented and reminded patient of ways to access additional resources. ~P discussed crisis resources and plan. Patient has crisis resources still available should they be needed Last Documented On 1 7:04PM ; [facility] Discussed nutritional needs teach healthy choices including fruits and vegetables Last Documented On 1 3:57PM ; [facility] Patient education about a pr oper diet Last Documented On 1 3:57PM ; [facility] Discussed concerns about exe rcise : promote physical activity Last Documented On 1 3:57PM ; [facility] to [facility] integrated model of care. [facility] [...] [facility] provided text hotline number for crisis. [facility] reviewed crisis plan with patient and patient is able to contact positive supports and family when feeling down Last Documented On 1 11:46AM ; [facility] Discussed nutritional needs teach healthy choices including fruits and vegetables Last Documented On 1 2:11PM ; [facility] Patient education about a pr oper diet Last Documented On 1 2:11PM ; [facility] Discussed concerns about exe rcise : promote physical activity Last Documented On 1 2:11PM ; [facility] Work Phone: Instructions Includes: Instructions for all patient encounters Education and Decision Aids were provided during visit for: ~*[facility] offered active and sup portive listening, normalized emotions and feelings, and processed ~current stressors. ~*Discussed engageing in counseling and looking into EMDR to address PTSD and increased nightmares Last Documented On 4 4:14PM ; [facility] Discussed nutritional needs teach healthy choices including fruits and vegetables Last Documented On 4 4:33PM ; [facility] Patient education about a pr oper diet Last Documented On 4 4:33PM ; [facility] Discussed concerns about exe rcise : promote physical activity Last Documented On 4 4:33PM ; [facility] offered active and suppo rtive listening and processed recent stressors. ~[facility] discussed coping skills and supports to implement in managing increased anxiety such as tools learned previously in therapy. ~[facility] discussed sleep hygiene strategies that can be implemented. ~[facility] encouraged patient to follow-up with specialists as scheduled Last Documented On 4 3:26PM ; [facility] Discussed nutritional needs teach healthy choices including fruits and vegetables Last Documented On 4 4:51PM ; [facility] Patient education about a pr oper diet Last Documented On 4 4:51PM ; [facility] Discussed concerns about exe rcise : promote physical activity Last Documented On 4 4:51PM ; [facility] Referred Patient to a Diabet es Self-Management Program Last Documented On 4 5:22PM ; [facility] offered active and suppo rtive listening and processed current stressors. ~[facility] discussed coping skills and supports that can be implemented to manage increased anxiety and stressors. P discussed potential of resuming counseling, even if for monthly visits to process ongoing stressors. ~[facility] encouraged patient to follow- up on referrals as discussed with PCP Last Documented On 4 10:08AM ; [facility] Discussed nutritional needs teach healthy choices including fruits and vegetables Last Documented On 4 4:46PM ; [facility] Patient education about a pr oper diet Last Documented On 4 4:46PM ; [facility] Discussed concerns about exe rcise : promote physical activity Last Documented On 4 4:46PM ; [facility] Not requesting contraception Last Documented On 4 4:46PM ; [facility] offered active and suppo rtive listening and processed current stressors related to getting medications. ~[facility] discussed coping skills and supports to implement in daily routine. ~[facility] discussed progress patient has felt they have made recently and encouraged continued follow-up with providers to address health Last Documented On 4 5:16PM ; [facility] Discussed nutritional needs teach healthy choices including fruits and vegetables Last Documented On 4 7:14PM ; [facility] Patient education about a pr oper diet Last Documented On 4 7:14PM ; [facility] Discussed concerns about exe rcise : promote physical activity Last Documented On 4 7:14PM ; [facility] Not requesting contraception Last Documented On 4 7:14PM ; [facility] Discussed nutritional needs teach healthy choices including fruits and vegetables Last Documented On 3 5:15PM ; [facility] Patient education about a pr oper diet Last Documented On 3 5:15PM ; [facility] Discussed concerns about exe rcise : promote physical activity Last Documented On 3 5:15PM ; [facility] Discussed nutritional needs teach healthy choices including fruits and vegetables Last Documented On 2 1:42PM ; [facility] Patient education about a pr oper diet Last Documented On 2 1:42PM ; [facility] Discussed concerns about exe rcise : promote physical activity Last Documented On 2 1:42PM ; [facility] offered active listening and supportive feedback; normalized emotions and feelings, also provided pt time to process any current stressors. ~Promoted and encouraged follow-through with scheduling psychiatric services Last Documented On 2 3:21PM ; [facility] provided supportive, empa thic listening and reflective feedback. ~Explored, encouraged, and supported the pt to discuss current sx/mood, assess risk for harm/need, coping mechanisms, support network and safety planning. ~Supported pt's plan to f/up with Dr. Carney, as planned at [place], [place]. ~Encouraged pt to use safety plan, if needed to ensure she remains safe Last Documented On 2 2:27PM ; [facility] Discussed nutritional needs teach healthy choices including fruits and vegetables Last Documented On 2 3:20PM ; [facility] Patient education about a pr oper diet Last Documented On 2 3:20PM ; [facility] Discussed concerns about exe rcise : promote physical activity ~ ~Will restart trazodone and prazosin ~ ~Patient is planning to have brother stay with her for a few days for emotional support ~ ~Follow up with PCP at next scheduled visit ~ ~Call psychiatrist office to schedule appt ~ ~Call counselor Last Documented On 2 9:35AM ; [facility] Provided supportive listenin g and empathic feedback; encouraged, explored, and supported the pt as she processed current symptoms, Issues, and concerns. ~Discussed past tx and explored current needs/options. Acknowledged and validated pt's thoughts and emotions. ~Explored coping mechanisms and support network; utilized opportunity for safety planning; promoted seeking positive support and seeking help, as needed Last Documented On 2 3:28PM ; [facility] provided active listenin g, support and helped pt process though current symptoms and stressor(s). Discussed and explored past effectiveness of medication; identified objectives and future goals; promoted use of healthy coping mechanisms, and self-care practices Last Documented On 2 3:19PM ; [facility] Reviewed side effects and Ri sks/Benefits analysis Last Documented On 2 3:19PM ; [facility] Discussed nutritional needs teach healthy choices including fruits and vegetables Last Documented On 2 3:15PM ; [facility] Patient education about a pr oper diet Last Documented On 2 3:15PM ; [facility] Discussed concerns about exe rcise : promote physical activity Last Documented On 2 3:15PM ; [facility] introduced pt to [facility] in tegrated [...] needed Last Documented On 2 4:07PM ; [facility] Discussed nutritional needs teach healthy choices including fruits and vegetables Last Documented On 2 3:15PM ; [facility] Patient education about a pr oper diet Last Documented On 2 3:15PM ; [facility] Inquiry and counseling about medication administration and compliance Last Documented On 2 7:37PM ; [facility] Discussed concerns about exe rcise : promote physical activity Last Documented On 2 3:15PM ; [facility] Patient goals discussed Last Documented On 2 7:37PM ; [facility] Ansewred pt's questions re B orderlline Personality D/O and Bipolar D/O raised by psychiatrist at [facility]. ~Validated and normalized patient?s feelings while assisting to process recent events Last Documented On 1 1:33AM ; [facility] Discussed nutritional needs teach healthy choices including fruits and vegetables Last Documented On 1 2:04PM ; [facility] Patient education about a pr oper diet Last Documented On 1 2:04PM ; [facility] Discussed concerns about exe rcise : promote physical activity Last Documented On 1 2:04PM ; [facility] provided active listenin g, support and helped patient process through current symptoms and stressors with ongoing mental health concerns and medication changes. [facility] discussed coping skills and supports that patient is implementing. discussed implementing coping skills as discussed with counseling and attending weekly appointments as scheduled with counselor. Patient was encouraged to continue writing down concerns with medications and discuss with providers. [facility] reminded patient of crisis resources should they be needed. Patient reports having crisis resources and could return to ER Last Documented On 1 10:17AM ; [facility] Patient education about a pr oper diet Last Documented On 1 5:17PM ; [facility] Patient education about meal planning Last Documented On 1 5:17PM ; [facility] Education about changing eat ing habits Last Documented On 1 5:17PM ; [facility] Patient education about high fiber diet Last Documented On 1 5:17PM ; [facility] Patient education about low fat diet Last Documented On 1 5:17PM ; [facility] Patient education about low cholesterol diet Last Documented On 1 5:17PM ; [facility] Patient education about low carbohydrate diet Last Documented On 1 5:17PM ; [facility] Patient education about high protein diet Last Documented On 1 5:17PM ; [facility] offered active and suppo rtive listening, normalized emotions and feelings, and processed current stressors. [facility] discussed resources for finding a counselor and provided list of local resources. [facility] discussed patients coping skills and supports and encouraged patient to continue to implement. [facility] reminded patient of crisis resources should they be needed Last Documented On 1 7:15PM ; [facility] Discussed nutritional needs teach healthy choices including fruits and vegetables Last Documented On 1 11:38AM ; [facility] Patient education about a pr oper diet Last Documented On 1 11:38AM ; [facility] Patient education about a pr oper diet Last Documented On 1 12:19PM ; [facility] Patient education about meal planning Last Documented On 1 12:19PM ; [facility] Education about changing eat ing habits Last Documented On 1 12:19PM ; [facility] Patient education about high fiber diet Last Documented On 1 12:19PM ; [facility] Patient education about low fat diet Last Documented On 1 12:19PM ; [facility] Patient education about low cholesterol diet Last Documented On 1 12:19PM ; [facility] Patient education about low carbohydrate diet Last Documented On 1 12:19PM ; [facility] Patient education about high protein diet Last Documented On 1 12:19PM ; [facility] Discussed concerns about exe rcise : promote physical activity Last Documented On 1 11:38AM ; [facility], support and helped patient process through current symptoms and stressors related to family conflict. ~P discussed coping skills and supports with patient that can be implemented and reminded patient of ways to access additional resources. ~P discussed crisis resources and plan. Patient has crisis resources still available should they be needed Last Documented On 1 7:04PM ; [facility] Discussed nutritional needs teach healthy choices including fruits and vegetables Last Documented On 1 3:57PM ; [facility] Patient education about a pr oper diet Last Documented On 1 3:57PM ; [facility] Discussed concerns about exe rcise : promote physical activity Last Documented On 1 3:57PM ; [facility] to [facility] integrated model of care. [facility] [...] down Last Documented On 1 11:46AM ; [facility] Discussed nutritional needs teach healthy choices including fruits and vegetables Last Documented On 1 2:11PM ; [facility] Patient education about a pr oper diet Last Documented On 1 2:11PM ; [facility] Discussed concerns about exe rcise : promote physical activity Last Documented On 1 2:11PM ; [facility] Work Phone: Instructions Includes: Instructions for all patient encounters Education and Decision Aids were provided during visit for: Discussed nutritional needs teach healthy choices including fruits and vegetables Last Documented On 4 4:41PM ; [facility] Patient education about a pr oper diet Last Documented On 4 4:41PM ; [facility] Discussed concerns about exe rcise : promote physical activity Last Documented On 4 4:41PM ; [facility] Not requesting contraception Last Documented On 4 4:41PM ; [facility] ~*[facility] offered active and sup portive listening, normalized emotions and feelings, and processed ~current stressors. ~*Discussed engageing in counseling and looking into EMDR to address PTSD and increased nightmares Last Documented On 4 4:14PM ; [facility] Discussed nutritional needs teach healthy choices including fruits and vegetables Last Documented On 4 4:33PM ; [facility] Patient education about a pr oper diet Last Documented On 4 4:33PM ; [facility] Discussed concerns about exe rcise : promote physical activity Last Documented On 4 4:33PM ; [facility] offered active and suppo rtive listening and processed recent stressors. ~P discussed coping skills and supports to implement in managing increased anxiety such as tools learned previously in therapy. ~P discussed sleep hygiene strategies that can be implemented. ~[facility] encouraged patient to follow-up with specialists as scheduled Last Documented On 4 3:26PM ; [facility] Discussed nutritional needs teach healthy choices including fruits and vegetables Last Documented On 4 4:51PM ; [facility] Patient education about a pr oper diet Last Documented On 4 4:51PM ; [facility] Discussed concerns about exe rcise : promote physical activity Last Documented On 4 4:51PM ; [facility] Referred Patient to a Diabet es Self-Management Program Last Documented On 4 5:22PM ; [facility] offered active and suppo rtive listening and processed current stressors. ~P discussed coping skills and supports that can be implemented to manage increased anxiety and stressors. P discussed potential of resuming counseling, even if for monthly visits to process ongoing stressors. ~[facility] encouraged patient to follow- up on referrals as discussed with PCP Last Documented On 4 10:08AM ; [facility] Discussed nutritional needs teach healthy choices including fruits and vegetables Last Documented On 4 4:46PM ; [facility] Patient education about a pr oper diet Last Documented On 4 4:46PM ; [facility] Discussed concerns about exe rcise : promote physical activity Last Documented On 4 4:46PM ; [facility] Not requesting contraception Last Documented On 4 4:46PM ; [facility] offered active and suppo rtive listening and processed current stressors related to getting medications. ~[facility] discussed coping skills and supports to implement in daily routine. ~[facility] discussed progress patient has felt they have made recently and encouraged continued follow-up with providers to address health Last Documented On 4 5:16PM ; [facility] Discussed nutritional needs teach healthy choices including fruits and vegetables Last Documented On 4 7:14PM ; [facility] Patient education about a pr oper diet Last Documented On 4 7:14PM ; [facility] Discussed concerns about exe rcise : promote physical activity Last Documented On 4 7:14PM ; [facility] Not requesting contraception Last Documented On 4 7:14PM ; [facility] Discussed nutritional needs teach healthy choices including fruits and vegetables Last Documented On 3 5:15PM ; [facility] Patient education about a pr oper diet Last Documented On 3 5:15PM ; [facility] Discussed concerns about exe rcise : promote physical activity Last Documented On 3 5:15PM ; [facility] Discussed nutritional needs teach healthy choices including fruits and vegetables Last Documented On 2 1:42PM ; [facility] Patient education about a pr oper diet Last Documented On 2 1:42PM ; [facility] Discussed concerns about exe rcise : promote physical activity Last Documented On 2 1:42PM ; [facility] active listening and supportive feedback; normalized emotions and feelings, also provided pt time to process any current stressors. ~Promoted and encouraged follow-through with scheduling psychiatric services Last Documented On 2 3:21PM ; [facility] provided supportive, empa thic listening and reflective feedback. ~Explored, encouraged, and supported the pt to discuss current sx/mood, assess risk for harm/need, coping mechanisms, support network and safety planning. ~Supported pt's plan to f/up with Dr. Carney, as planned at [place], [place]. ~Encouraged pt to use safety plan, if needed to ensure she remains safe Last Documented On 2 2:27PM ; [facility] Discussed nutritional needs teach healthy choices including fruits and vegetables Last Documented On 2 3:20PM ; [facility] Patient education about a pr oper diet Last Documented On 2 3:20PM ; [facility] Discussed concerns about exe rcise : promote physical activity ~ ~Will restart trazodone and prazosin ~ ~Patient is planning to have brother stay with her for a few days for emotional support ~ ~Follow up with PCP at next scheduled visit ~ ~Call psychiatrist office to schedule appt ~ ~Call counselor Last Documented On 2 9:35AM ; [facility] Provided supportive listenin g and empathic feedback; encouraged, explored, and supported the pt as she processed current symptoms, Issues, and concerns. ~Discussed past tx and explored current needs/options. Acknowledged and validated pt's thoughts and emotions. ~Explored coping mechanisms and support network; utilized opportunity for safety planning; promoted seeking positive support and seeking help, as needed Last Documented On 2 3:28PM ; [facility] provided active listenin g, support and helped pt process though current symptoms and stressor(s). Discussed and explored past effectiveness of medication; identified objectives and future goals; promoted use of healthy coping mechanisms, and self-care practices Last Documented On 2 3:19PM ; [facility] Reviewed side effects and Ri sks/Benefits analysis Last Documented On 2 3:19PM ; [facility] Discussed nutritional needs teach healthy choices including fruits and vegetables Last Documented On 2 3:15PM ; [facility] Patient education about a pr oper diet Last Documented On 2 3:15PM ; [facility] Discussed concerns about exe rcise : promote physical activity Last Documented On 2 3:15PM ; [facility] introduced pt to [facility] in tegrated model of care ~[facility] offered active listening and supportive feedback; normalized emotions and feelings, also provided pt time to process any current stressors ~[facility] discussed potential benefits of counseling and supported re-engaging, as needed. ~[facility] encouraged pt to continue to make time to implement self-care regimen and use coping methods, as needed Last Documented On 2 4:07PM ; [facility] Discussed nutritional needs teach healthy choices including fruits and vegetables Last Documented On 2 3:15PM ; [facility] Patient education about a pr oper diet Last Documented On 2 3:15PM ; [facility] Inquiry and counseling about medication administration and compliance Last Documented On 2 7:37PM ; [facility] Discussed concerns about exe rcise : promote physical activity Last Documented On 2 3:15PM ; [facility] Patient goals discussed Last Documented On 2 7:37PM ; [facility] Ansewred pt's questions re B orderlline Personality D/O and Bipolar D/O raised by psychiatrist at [facility]. ~Validated and normalized patient?s feelings while assisting to process recent events Last Documented On 1 1:33AM ; [facility] Discussed nutritional needs teach healthy choices including fruits and vegetables Last Documented On 1 2:04PM ; [facility] Patient education about a pr oper diet Last Documented On 1 2:04PM ; [facility] Discussed concerns about exe rcise : promote physical activity Last Documented On 1 2:04PM ; [facility] provided active listenin g, support and helped patient process through current symptoms and stressors with ongoing mental health concerns and medication changes. ~[facility] discussed coping skills and supports that patient [...] ER Last Documented On 1 10:17AM ; [facility] Patient education about a pr oper diet Last Documented On 1 5:17PM ; [facility] Patient education about meal planning Last Documented On 1 5:17PM ; [facility] Education about changing eat ing habits Last Documented On 1 5:17PM ; [facility] Patient education about high fiber diet Last Documented On 1 5:17PM ; [facility] Patient education about low fat diet Last Documented On 1 5:17PM ; [facility] Patient education about low cholesterol diet Last Documented On 1 5:17PM ; [facility] Patient education about low carbohydrate diet Last Documented On 1 5:17PM ; [facility] Patient education about high protein diet Last Documented On 1 5:17PM ; [facility] offered active and suppo rtive listening, normalized emotions and feelings, and processed current stressors. ~[facility] discussed resources for finding a counselor and provided list of local resources. ~P discussed patients coping skills and supports and encouraged patient to continue to implement. ~[facility] reminded patient of crisis resources should they be needed Last Documented On 1 7:15PM ; [facility] Discussed nutritional needs teach healthy choices including fruits and vegetables Last Documented On 1 11:38AM ; [facility] Patient education about a pr oper diet Last Documented On 1 11:38AM ; [facility] Patient education about a pr oper diet Last Documented On 1 12:19PM ; [facility] Patient education about meal planning Last Documented On 1 12:19PM ; [facility] Education about changing eat ing habits Last Documented On 1 12:19PM ; [facility] Patient education about high fiber diet Last Documented On 1 12:19PM ; [facility] Patient education about low fat diet Last Documented On 1 12:19PM ; [facility] Patient education about low cholesterol diet Last Documented On 1 12:19PM ; [facility] Patient education about low carbohydrate diet Last Documented On 1 12:19PM ; [facility] Patient education about high protein diet Last Documented On 1 12:19PM ; [facility] Discussed concerns about exe rcise : promote physical activity Last Documented On 1 11:38AM ; [facility] provided active listenin g, support and helped patient process through current symptoms and stressors related to family conflict. ~P discussed coping skills and supports with patient that can be implemented and reminded patient of ways to access additional resources. ~[facility] discussed crisis resources and plan. Patient has crisis resources still available should they be needed Last Documented On 1 7:04PM ; [facility] Discussed nutritional needs teach healthy choices including fruits and vegetables Last Documented On 1 3:57PM ; [facility] Patient education about a pr oper diet Last Documented On 1 3:57PM ; [facility] Discussed concerns about exe rcise : promote physical activity Last Documented On 1 3:57PM ; [facility] to [facility] integrated model of care. [facility] and PCP reassured patient of not sharing information with anyone unless she has signed a release for us to do so. ~[facility] provided active listening, support and helped patient process through current symptoms and stressors. ~[facility] discussed establishing counseling and psychiatry. [facility] discussed EMDR therapy and ways to find provider who does this type of therapy. ~[facility] discussed crisis resources should mood worsen, [facility] provided text hotline number for crisis. [facility] reviewed crisis plan with patient and patient is able to contact positive supports and family when feeling down Last Documented On 1 11:46AM ; [facility] Discussed nutritional needs teach healthy choices including fruits and vegetables Last Documented On 1 2:11PM ; [facility] Patient education about a pr oper diet Last Documented On 1 2:11PM ; [facility] Discussed concerns about exe rcise : promote physical activity Last Documented On 1 2:11PM ; [facility] Work Phone: Patient problem outcome Narrative Includes: Evaluations & Outcomes for active Goals No [facility] Work Phone: Progress note* Progress note Date Encounter Last Documented by 07/29/2024 Chart Update Last documented on 07/29/2024; 12:07 PM, Denny oLmeli CNP; [facility] Active Problems & Conditions - F90.9 [...] EndCited Care Team - [facility]enny [facility]No Reason for Referral [facility] Work Phone: Review of systems Narrative - Reported Review of Systems not supported for this document type No [facility] Systems [facility] Work Phone: Summary Purpose Family History [...] 03/17/2021 Last Documented On 1 4:06PM ; [facility] Fraternal history of psychiatric disorde rs 03/17/2021 Maternal history of hypertension 021 Maternal history of oncologic disorder 0 03/17/2021 Maternal history of psychiatric disorder s 03/17/2021 Paternal history of hypertension 021 Paternal history of oncologic disorder 0 03/17/2021 Description Last Updated Maternal history of epilepsy and recurre nt seizures 03/17/2021 Last Documented On 1 4:06PM ; [facility] Fraternal history of psychiatric disorde rs 03/17/2021 Maternal history of hypertension 021 Maternal history of oncologic disorder 0 03/17/2021 Maternal history of psychiatric disorder s 03/17/2021 Paternal history of hypertension 021 Paternal history of oncologic disorder 0 03/17/2021 Description Last Updated Maternal history of epilepsy and recurre nt seizures 03/17/2021 Last Documented On 4:06PM ; [facility] Fraternal history of psychiatric disorde rs 03/17/2021 Maternal history of hypertension 021 Maternal history of oncologic disorder 0 03/17/2021 Maternal history of psychiatric disorder s 03/17/2021 Paternal history of hypertension 021 Paternal history of oncologic disorder 0 03/17/2021 Description Last Updated Maternal history of epilepsy and recurre nt seizures 03/17/2021 Last Documented On 1 4:06PM ; [facility] Fraternal history of psychiatric disorde rs 03/17/2021 Maternal history of hypertension 021 Maternal history of oncologic disorder 0 03/17/2021 Maternal history of psychiatric disorder s 03/17/2021 Paternal history of hypertension 021 Paternal history of oncologic disorder 0 03/17/2021 Description Last Updated Maternal history of epilepsy and recurre nt seizures 03/17/2021 Last Documented On 1 4:06PM ; [facility] Fraternal history of psychiatric disorde rs 03/17/2021 Maternal history of hypertension 021 Maternal history of oncologic disorder 0 03/17/2021 Maternal history of psychiatric disorder s 03/17/2021 Paternal history of hypertension 021 Paternal history of oncologic disorder 0 03/17/2021 Description Last Updated Maternal history of epilepsy and recurre nt seizures 03/17/2021 Last Documented On 1 4:06PM ; [facility] Fraternal history of psychiatric disorde rs 03/17/2021 Maternal history of hypertension 021 Maternal history of oncologic disorder 0 03/17/2021 Maternal history of psychiatric disorder s 03/17/2021 Paternal history of hypertension 021 Paternal history of oncologic disorder 0 03/17/2021 Description Last Updated Maternal history of epilepsy and recurre nt seizures 03/17/2021 Last Documented On 1 4:06PM ; [facility] Fraternal history of psychiatric disorde rs 03/17/2021 Maternal history of hypertension 021 Maternal history of oncologic disorder 0 03/17/2021 Maternal history of psychiatric disorder s 03/17/2021 Paternal history of hypertension 021 Paternal history of oncologic disorder 0 03/17/2021 Description Last Updated Maternal history of epilepsy and recurre nt seizures 03/17/2021 Last Documented On 1 4:06PM ; [facility] Fraternal history of psychiatric disorde rs 03/17/2021 Maternal history of hypertension 021 Maternal history of oncologic disorder 0 03/17/2021 Maternal history of psychiatric disorder s 03/17/2021 Paternal history of hypertension 021 Paternal history of oncologic disorder 0 03/17/2021 Description Last Updated Maternal history of epilepsy and recurre nt seizures 03/17/2021 Last Documented On 1 4:06PM ; [facility] Fraternal history of psychiatric disorde rs 03/17/2021 Maternal history of hypertension 021 Maternal history of oncologic disorder 0 03/17/2021 Maternal history of psychiatric disorder s 03/17/2021 Paternal history of hypertension 021 Paternal history of oncologic disorder 0 03/17/2021 Description Last Updated Maternal history of epilepsy and recurre nt seizures 03/17/2021 Last Documented On 1 4:06PM ; [facility] Fraternal history of psychiatric disorde rs 03/17/2021 Maternal history of hypertension 021 Maternal history of oncologic disorder 0 03/17/2021 Maternal history of psychiatric disorder s 03/17/2021 Paternal history of hypertension 021 Paternal history of oncologic disorder 0 03/17/2021 Description Last Updated Maternal history of epilepsy and recurre nt seizures 03/17/2021 Last Documented On 1 4:06PM ; [facility] Fraternal history of psychiatric disorde rs 03/17/2021 Maternal history of hypertension 021 Maternal history of oncologic disorder 0 03/17/2021 Maternal history of psychiatric disorder s 03/17/2021 Paternal history of hypertension 021 Paternal history of oncologic disorder 0 03/17/2021 Description Last Updated Maternal history of epilepsy and recurre nt seizures 03/17/2021 Last Documented On 1 4:06PM ; [facility] Fraternal history of psychiatric disorde rs 03/17/2021 Maternal history of hypertension 021 Maternal history of oncologic disorder 0 03/17/2021 Maternal history of psychiatric disorder s 03/17/2021 Paternal history of hypertension 021 Paternal history of oncologic disorder 0 03/17/2021 Relationship Condition Age at Onset Recorded Date/T faisal mother Anxiety Unknown Depression Unknown Bipolar affective disorder Unknown Epilepsy Unknown father Hypertension Unknown father Anxiety Unknown brother Anxiety Unknown brother Depression Unknown Description Last Updated Maternal history of epilepsy and recurre nt seizures 03/17/2021 Last Documented On 1 4:06PM ; [facility] Fraternal history of psychiatric disorde rs 03/17/2021 Maternal history of hypertension 021 Maternal history of oncologic disorder 0 03/17/2021 Maternal history of psychiatric disorder s 03/17/2021 Paternal history of hypertension 021 Paternal history of oncologic disorder 0 03/17/2021 Advance Directives No Advanced Directives Records FoundDocuments on File Type Date Recorded 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 ACP-Advance Directive ACP-[employer] of [employer]her Documents on File Type Date Recorded 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 ACP-Advance Directive ACP-[employer] Advance Directive Response Recorded Date/ Time Advance Directives No June 11, 2020 3:30pm Physical Exam Physical Exam not supported for [...] Procedures Holter Monitor 48 Hour Denny Lomeli, 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 - [employer] [address] [place] [address] Chief Complaint and Reason for Visit Chief Complaint dysfunctional uterin e bleeding Additional Source Comments INFORMATION SOURCE (unrecogn ized section and content) DATE CREATED AUTHOR 04/18/2018 [facility] DATE CREATED AUTHOR AUTHOR'S ORGANIZ ATION 11/14/[address] [facility] DATE CREATED AUTHOR AUTHOR'S ORGANIZ ATION 04/15/2021 [facility] DATE CREATED AUTHOR AUTHOR'S ORGANIZ ATION 07/11/2021 [facility] DATE CREATED AUTHOR AUTHOR'S ORGANIZ ATION 07/27/2021 [facility] DATE CREATED AUTHOR AUTHOR'S ORGANIZ ATION 08/16/2022 [facility] DATE CREATED AUTHOR AUTHOR'S ORGANIZ ATION 03/01/2024 [facility] DATE CREATED AUTHOR AUTHOR'S ORGANIZ ATION 08/23/2024 [facility] DATE CREATED AUTHOR AUTHOR'S ORGANIZ ATION 09/19/2024 [facility] d[facility] EPIC Reason for Visit (unrecogniz [...] Procedures Holter Monitor 48 Hour Denny Lomeli, 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 - [facility] [address] [place] [id number] Scheduled Active and Recently Administ ered Medications (unrecognized section and content) Medication Order 05/14/2021 05/15/2021 05/16/2021 ALPRAZolam (XANAX) tablet 0.5 mg (COMPLETED) 0.5 mg, Oral, ONCE, On 05/15/21 at 2100, For 1 dose 2109 (Given - Provider: Ankur Gregory RN) PRN Medication Order 07/04/2021 07/05/2021 07/06/2021 hydrOXYzine (VISTARIL) capsule 50 mg 50 mg, Oral, 3 TIMES DAILY PRN, Itching, Starting on Mon07/06/21 at 2146 2212 (Given - Provid er: Denny Orozco RN) Care Teams (unrecognized sec tion and content) Banjo Repair Person Relationship Specialty Start Date End Date Denny Lomeli, 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 - [facility] [address] [place] [id number] PCP - General Family Medicine 04/09/21 Team Status: Active Member Role Status Dates Chris Ford DO Attending Provider Active Sta rt: August 08, 2024 Team Status: Inactive Member Role Status Dates Brent Donato DO Attending Provider Active Start : August 16, 2024 End: August 16, 2024 Goals (unrecognized section and content) Goals may be documented in a n alternate section FOR RECORDS PERTAINING TO PATIENTS WHO ARE [...] BE BASED ON THE PRIMARY CLINICAL RECORDS. [facility] provides no warranty or guarantee of the accuracy or completeness of information in this document.
--- NOTE | 2024-11-23 05:08 | ED.GENADUL1 ---
HPI HPI - General Adult General Chief complaint: GI Bleed Stated complaint: blood in stool Time Seen by Provider: 11/23/24 04:58 Source: patient Mode of arrival: walk-in Limitations: no limitations History of Present Illness HPI narrative: 24-year-old female presents to the emergency department for a chief complaint of rectal bleeding. This started about 24 hours ago and has happened 4 times. She states that when she sits on the toilet and tries to have a bowel movement blood comes out and she is concerned she has a hemorrhoid. She feels something there. No fever or vomiting. Related Data Home Medications ?Medication ?Instructions ?Recorded ?Confirmed aripiprazole 5 mg tablet 5 mg PO QPM 08/08/24 11/23/24 atorvastatin 20 mg tablet 20 mg PO .QHS 08/08/24 11/23/24 blood sugar diagnostic (OneTouch 08/08/24 08/08/24 Ultra Test strips) blood-glucose meter (OneTouch 08/08/24 08/08/24 Ultra2 Meter) buspirone 10 mg tablet 10 mg PO BID 08/08/24 11/23/24 docusate sodium 100 mg capsule 100 mg PO .QHS PRN constipation 08/08/24 11/23/24 ferrous sulfate 325 mg (65 mg 325 mg PO DAILY 08/08/24 11/23/24 iron) tablet (FeroSul) guanfacine 1 mg tablet,extended 1 mg PO QPM 08/08/24 11/23/24 release 24 hr lamotrigine 100 mg tablet 100 mg PO DAILY 08/08/24 11/23/24 lisinopril 5 mg tablet 5 mg PO DAILY 08/08/24 11/23/24 prazosin 1 mg capsule 2 mg PO QPM 08/08/24 11/23/24 quetiapine 50 mg tablet 50 mg PO .QHS 08/08/24 11/23/24 sertraline 50 mg tablet 50 mg PO DAILY 08/08/24 11/23/24 sitagliptin phosphate 50 mg tablet 50 mg PO DAILY 08/08/24 11/23/24 (Januvia) Previous Rx's ?Medication ?Instructions ?Recorded promethazine 25 mg tablet 25 mg PO Q6H PRN nausea and 08/10/24 vomiting #12 tabs ibuprofen 800 mg tablet 800 mg PO Q8H PRN pain 14 days #40 10/09/24 tabs hydrocortisone-pramoxine 1 %-1 % 1 applic WA TID #30 grams 11/23/24 rectal cream Allergies Allergy/AdvReac Type Severity Reaction Status Date / Time amoxicillin (From Augmentin) Allergy Severe Anaphylaxis Verified 11/23/24 04:51 clavulanic acid (From Allergy Severe Anaphylaxis Verified 11/23/24 04:51 Augmentin) Penicillins Allergy Severe Anaphylaxis Verified 11/23/24 04:51 bee venom protein (honey bee) Allergy Anaphylaxis Verified 11/23/24 04:51 metformin Allergy Nausea Verified 11/23/24 04:51 nickel Allergy Hives Verified 11/23/24 04:51 Opioid HPI Opioid Management Most Recent Opioid Data: Last Pain Scale 6 11/23/24 04:58 11/23/24 Last ED Pain Assessment 11/23/24 04:58 Last ORT Total Score 11 08/08/24 17:06 08/08/24 Last ORT Risk Category High Risk 08/08/24 17:06 08/08/24 Review of Systems ROS Narrative A ten point review of systems is negative except as noted above. [facility] Medical History (Updated 11/23/24 @ 05:06 by Oh Allen MD) Pelvic pain ?R10.2 - Pelvic and perineal pain (ICD-10) Menorrhagia ?N92.0 - Excessive and frequent menstruation with regular cycle (ICD-10) Abnormal uterine bleeding ?N93.9 - Abnormal uterine and vaginal bleeding, unspecified (ICD-10) Postoperative nausea and vomiting (08/16/24) ?R11.2 - Nausea with vomiting, unspecified (ICD-10) ?Z98.890 - Other specified postprocedural states (ICD-10) History of blood transfusion (08/08/18) ?Z92.89 - Personal history of other medical treatment (ICD-10) Night terror ?F51.4 - Sleep terrors [night terrors] (ICD-10) Sleep paralysis ?G47.8 - Other sleep disorders (ICD-10) Insomnia ?G47.00 - Insomnia, unspecified (ICD-10) Panic attacks ?F41.0 - Panic disorder [episodic paroxysmal anxiety] (ICD-10) Snores ?R06.83 - Snoring (ICD-10) Syncope ?R55 - Syncope and collapse (ICD-10) Metabolic syndrome ?E88.810 - Metabolic syndrome (ICD-10) Dysfunctional uterine bleeding ?N93.8 - Other specified abnormal uterine and vaginal bleeding (ICD-10) Anemia requiring transfusions ?D64.9 - Anemia, unspecified (ICD-10) PTSD (post-traumatic stress disorder) ?F43.10 - Post-traumatic stress disorder, unspecified (ICD-10) Bipolar 1 disorder ?F31.9 - Bipolar disorder, unspecified (ICD-10) Anxiety ?F41.9 - Anxiety disorder, unspecified (ICD-10) Depression ?F32.A - Depression, unspecified (ICD-10) PCOS (polycystic ovarian syndrome) ?E28.2 - Polycystic ovarian syndrome (ICD-10) Insulin resistance ?E88.819 - Insulin resistance, unspecified (ICD-10) 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 (ICD-10) POTS (postural orthostatic tachycardia syndrome) ?G90.A - Postural orthostatic tachycardia syndrome [POTS] (ICD-10) Surgical History (Updated 10/01/24 @ 11:18 by Estella Eugene NP) H/O dilation and curettage (08/16/24) ?Z98.890 - Other specified postprocedural states (ICD-10) History of myringotomy ?Z98.890 - Other specified postprocedural states (ICD-10) H/O esophagogastroduodenoscopy ?Z98.890 - Other specified postprocedural states (ICD-10) Hx of tonsillectomy ?Z90.89 - Acquired absence of other organs (ICD-10) Family History (Updated 08/13/24 @ 11:25 by Estella Eugene NP) Grandmother Family history of hypertension Family history of CHF (congestive heart failure) Family history of COPD (chronic obstructive pulmonary disease) Aunt Family history of cancer Family history of diabetes mellitus Grandfather Family history of cancer Family history of diabetes mellitus Family history of hypertension Uncle Family history of cancer Family history of diabetes mellitus Father Family history of hypertension Other Family history of DVT Family history of seizures Social History (Updated 10/01/24 @ 11:27 by Estella Eugene NP) Within the past year, how often did you have a drink containing alcohol: never Score interpretation: A score less than 3 is consistent with normal alcohol consumption. 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 General: The patient appears well and in no apparent distress. Patient is resting comfortably on cart. Skin: Warm, dry, no pallor noted. There is no rash noted. Head: Normocephalic, atraumatic Eye: Normal conjunctiva, no drainage Ears, Nose, Mouth, and Throat: oral mucosa is moist. Nares patent. Cardiovascular: Regular Rate and Rhythm Respiratory: Patient is in no distress, no accessory muscle use, lungs are clear to auscultation, no wheezing, rales or rhonchi Back: non-tender GI: Obese and nontender. Perianal examination shows a nonthrombosed external hemorrhoid, no active bleeding Musculoskeletal: The patient has no evidence of calf tenderness, no pitting edema, symmetrical pulses noted bilaterally Neurological: A&O, normal speech Psychiatric: Cooperative Constitutional Vital Signs, click to edit/add: Last Vital Signs Temp 98.7 F 11/23/24 04:44 Pulse 120 H 11/23/24 04:44 Resp 16 11/23/24 04:44 BP 109/77 11/23/24 04:44 Pulse Ox 97 11/23/24 04:44 O2 Del Method Room Air 11/23/24 04:44 Course Vital Signs Vital signs: Vital Signs Temperature 98.7 F 11/23/24 04:44 Pulse Rate 120 H 11/23/24 04:44 Respiratory Rate 16 11/23/24 04:44 Blood Pressure 109/77 11/23/24 04:44 Pulse Oximetry 97 11/23/24 04:44 Oxygen Delivery Method Room Air 11/23/24 04:44 Temperature 98.7 F 02/01/25 04:44 Pulse Rate 120 H 11/23/24 04:44 Respiratory Rate 16 11/23/24 04:44 Blood Pressure 109/77 11/23/24 04:44 Pulse Oximetry 97 11/23/24 04:44 Oxygen Delivery Method Room Air 11/23/24 04:44 Medical Decision Making MDM Narrative Medical decision making narrative: My clinical impression is that she has an external hemorrhoid. She is prescribed ProctoCream and referred to general surgery for follow-up. Treatment diagnosis and follow-up were discussed with the patient. Differential Diagnosis Differential Diagnosis: Internal hemorrhoid, external hemorrhoid Discharge Plan Discharge Chief Complaint: GI Bleed Clinical Impression: External hemorrhoid Patient Disposition: Home, Self-Care Time of Disposition Decision: 05:06 Condition: Good Mode of Transportation: Private Vehicle Prescriptions / Home Meds: New hydrocortisone-pramoxine 1-1 % cream 1 applic WA TID Qty: 30 0RF No Action promethazine 25 mg tablet 25 mg PO Q6H PRN (Reason: nausea and vomiting) Qty: 12 0RF ibuprofen 800 mg tablet 800 mg PO Q8H PRN (Reason: pain) 14 Days Qty: 40 0RF atorvastatin 20 mg tablet 20 mg PO .QHS (DME) blood-glucose meter [OneTouch Ultra2 Meter] Misc MISCELLANEOUS (DME) OneTouch Ultra Test Strip MISCELLANEOUS buspirone 10 mg tablet 10 mg PO BID docusate sodium 100 mg capsule 100 mg PO .QHS PRN (Reason: constipation) ferrous sulfate [FeroSul] 325 mg (65 mg iron) tablet 325 mg PO DAILY guanfacine 1 mg tablet extended release 24 hr 1 mg PO QPM lamotrigine 100 mg tablet 100 mg PO DAILY lisinopril 5 mg tablet 5 mg PO DAILY sertraline 50 mg tablet 50 mg PO DAILY Januvia 50 mg tablet 50 mg PO DAILY aripiprazole 5 mg tablet 5 mg PO QPM prazosin 1 mg capsule 2 mg PO QPM quetiapine 50 mg tablet 50 mg PO .QHS Print Language: [place] Instructions: Hemorrhoids (ED) Referrals: Sukhi Reza MD [Physician] - 1 week Aleyda Garland NP [Primary Care Provider] - 1 week
== END 2024-11-23 05:17 | disposition home or self-care (01) ==
PROVIDERS: Emergency Provider Emergency Medicine; PCP Nurse Practitioner Family
DX: K64.4 Residual hemorrhoidal skin tags (principal); F17.290 Nicotine dependence, other tobacco product, uncomplicated
CPT/HCPCS: 99283